=== PATIENT | female | born 1970 | race Caucasian/White ===

== ENCOUNTER 2016-05-11 | Inpatient (IN) | payer MEDICAID ==
[~2016-05-11] VITALS: Ht 157.5 cm; Wt 74.8 kg
[~2016-05-11] MED LIST: ACET-73 GT; AMIN30LI2 GT; ASCO500T8 GT; CALC0.253 GT; CLON-418 PO; DARB150D IV; DEXT1DRO3 EACHEYE; ESOM40CA GT; FOLI0.8T2 GT; HEPA50008 SQ; HYDR-552 GT; INSU100V3 SQ; INSU100V7 SQ; METO50TA3 GT; METO5SOL20 GT
[2016-05-13 07:45] VITALS: BP 141/79
--- NOTE | 2016-05-13 08:00 | NUR ---
Please see resident's previous account [id number] for all assessments and nurses notes. Originally admitted on 06/25/2014.
[2016-05-13] MEDS ORDERED: METOPROLOL TARTRATE 50 MG TABLET GT SCH ×2 (08:09)
[2016-05-13] MEDS ORDERED: HYDROGEN PEROXIDE 480 ML BOTTLE TP PRN (08:09)
[2016-05-13] MEDS ORDERED: LISINOPRIL (20MG) 20 MG TABLET PO SCH (08:09)
[2016-05-13] MEDS: [UNRECOGNIZED DRUG - OTHER] SQ SCH (08:09)
[2016-05-13] MEDS: INSULIN GLARGINE SQ SCH (08:09)
[2016-05-13] MEDS ORDERED: DEXTROSE 50%-WATER 50 ML DISP.SYRIN IV PRN (08:09)
[2016-05-13] MEDS: PROSTAT (PYXIS) 30 ML UDC GT SCH ×3 (09:00→17:00)
[2016-05-13] MEDS: LACTOBACILLUS RHAMNOSUS GG 1 EACH CAP.SPRINK GT SCH ×2 (09:00→17:00)
[2016-05-13] MEDS: HEPARIN SODIUM, PORCINE 5000 UNITS/1 ML VIAL SQ SCH ×2 (09:00→21:00)
[2016-05-13] MEDS: VIT B CMPLX 3/FA/VIT C/BIOTIN 1 TAB TABLET GT SCH (09:00)
[2016-05-13] MEDS: CALCITRIOL ORAL SOLUTION 1 MCG/ML GT SCH (09:00)
[2016-05-13] MEDS: ASCORBIC ACID 500 MG TABLET GT SCH (09:00)
[2016-05-13] MEDS: hydrALAZINE HCL 50 MG TABLET GT SCH ×2 (09:00→17:00)
--- NOTE | 2016-05-13 11:15 | NUR ---
Please see resident's previous account [id number] for Social Service assessments, evaluations and notes.
[2016-05-13] MEDS: POLYVINYL ALCOHOL 15 ML BOTTLE EACHEYE SCH ×2 (12:00→18:08)
[2016-05-13] MEDS: BLOOD SUGAR DIAGNOSTIC 1 EACH STRIP IN SCH ×2 (12:00→18:09)
[2016-05-13] MEDS: IPRATROPIUM NEB FS 0.5 MG/2.5 ML AMPUL.NEB NEB SCH ×2 (13:48→20:01)
[2016-05-13] MEDS: ALBUTEROL FS 2.5 MG/3 ML VIAL.NEB NEB SCH ×2 (13:48→20:01)
[2016-05-13] MEDS: HYDROCODONE/APAP 5/325MG 1 EACH TABLET GT SCH ×2 (14:00→21:00)
[2016-05-13] MEDS: HYDROGEN PEROXIDE 480 ML BOTTLE TP SCH ×2 (15:00→21:00)
[2016-05-13] MEDS: ZINC OXIDE 30 GM TUBE TP SCH ×2 (15:00→21:00)
[2016-05-13] MEDS: Z GUARD REMEDY 4 OZ OINT TP SCH ×2 (15:00→21:00)
[2016-05-13] MEDS: HYDROGEL DRESSING 90 GM TUBE TP SCH ×2 (15:00→21:00)
[2016-05-13] MEDS: CADEXOMER IODINE 40 GM TUBE TP SCH ×2 (15:00→21:00)
[2016-05-13] MEDS: NYSTATIN TOP POWDER 15 GM BOTTLE TP SCH ×6 (15:00→21:00)
[2016-05-13] MEDS: NEOMY SULF/BACITRAC ZN/POLY 15 GM TUBE TP SCH ×2 (15:00→21:00)
[2016-05-13] MEDS: DAKINS HALF STRENGTH (0.25%) 480 ML BOTTLE TOP SCH ×2 (15:00→21:00)
[2016-05-13] MEDS: [UNRECOGNIZED DRUG - OTHER] IV SCH (18:52)
[2016-05-13 19:48] VITALS: BP 147/90
[2016-05-13 19:50] VITALS: BP 147/90
[2016-05-13] MEDS: METOPROLOL TARTRATE 50 MG TABLET GT SCH (22:02)
[2016-05-14] MEDS: BLOOD SUGAR DIAGNOSTIC 1 EACH STRIP IN SCH ×4 (00:04→17:50)
[2016-05-14] MEDS: POLYVINYL ALCOHOL 15 ML BOTTLE EACHEYE SCH ×4 (00:04→17:50)
[2016-05-14] MEDS: INSULIN REGULAR, HUMAN 100 UNIT/ML 3 ML VIAL SQ PRN ×4 (00:05→17:51)
[2016-05-14] MEDS: IPRATROPIUM NEB FS 0.5 MG/2.5 ML AMPUL.NEB NEB SCH ×4 (01:33→19:45)
[2016-05-14] MEDS: ALBUTEROL FS 2.5 MG/3 ML VIAL.NEB NEB SCH ×4 (01:33→19:45)
[2016-05-14] MEDS: ESOMEPRAZOLE MAG TRIHYDRATE 20 MG CAPSULE.DR GT SCH (06:38)
[2016-05-14 08:00] VITALS: BP 133/63
[2016-05-14] MEDS: INSULIN GLARGINE SQ SCH ×2 (08:09→20:42)
[2016-05-14] MEDS: [UNRECOGNIZED DRUG - OTHER] SQ SCH ×2 (08:09→20:42)
[2016-05-14] MEDS: hydrALAZINE HCL 50 MG TABLET GT SCH ×2 (08:55→17:49)
[2016-05-14] MEDS: CALCITRIOL ORAL SOLUTION 1 MCG/ML GT SCH (08:56)
[2016-05-14] MEDS: LACTOBACILLUS RHAMNOSUS GG 1 EACH CAP.SPRINK GT SCH ×2 (08:57→17:49)
[2016-05-14] MEDS: HYDROCODONE/APAP 5/325MG 1 EACH TABLET GT SCH ×2 (08:57→20:43)
[2016-05-14] MEDS: METOPROLOL TARTRATE 50 MG TABLET GT SCH ×2 (08:57→22:16)
[2016-05-14] MEDS: VIT B CMPLX 3/FA/VIT C/BIOTIN 1 TAB TABLET GT SCH (08:57)
[2016-05-14] MEDS: LISINOPRIL (20MG) 20 MG TABLET PO SCH (08:58)
[2016-05-14] MEDS: ASCORBIC ACID 500 MG TABLET GT SCH (08:58)
[2016-05-14] MEDS: PROSTAT (PYXIS) 30 ML UDC GT SCH ×3 (08:58→17:49)
[2016-05-14] MEDS: HEPARIN SODIUM, PORCINE 5000 UNITS/1 ML VIAL SQ SCH ×2 (09:00→20:44)
[2016-05-14] MEDS: HYDROGEL DRESSING 90 GM TUBE TP SCH ×2 (10:00→20:50)
[2016-05-14] MEDS: NEOMY SULF/BACITRAC ZN/POLY 15 GM TUBE TP SCH ×2 (10:00→20:51)
[2016-05-14] MEDS: HYDROGEN PEROXIDE 480 ML BOTTLE TP SCH ×2 (10:00→20:50)
[2016-05-14] MEDS: Z GUARD REMEDY 4 OZ OINT TP SCH ×2 (10:00→20:51)
[2016-05-14] MEDS: ZINC OXIDE 30 GM TUBE TP SCH ×2 (10:00→20:51)
[2016-05-14] MEDS: NYSTATIN TOP POWDER 15 GM BOTTLE TP SCH ×6 (10:00→20:51)
[2016-05-14] MEDS: CADEXOMER IODINE 40 GM TUBE TP SCH ×2 (10:00→20:51)
[2016-05-14] MEDS: DAKINS HALF STRENGTH (0.25%) 480 ML BOTTLE TOP SCH ×2 (10:00→20:50)
[2016-05-14] MEDS: CLONIDINE HCL 0.1 MG TABLET GT PRN (17:50)
[2016-05-14] MEDS: ACETAMINOPHEN 650 MG/20 ML UDC- FOR SA PATIENTS ONLY GT PRN (17:51)
[2016-05-14 19:43] VITALS: BP 129/51
[2016-05-15] MEDS: BLOOD SUGAR DIAGNOSTIC 1 EACH STRIP IN SCH ×4 (00:41→17:41)
[2016-05-15] MEDS: POLYVINYL ALCOHOL 15 ML BOTTLE EACHEYE SCH ×4 (00:41→17:41)
[2016-05-15] MEDS: INSULIN REGULAR, HUMAN 100 UNIT/ML 3 ML VIAL SQ PRN ×3 (00:42→17:42)
[2016-05-15 00:55] VITALS: BP 133/68
[2016-05-15] MEDS: IPRATROPIUM NEB FS 0.5 MG/2.5 ML AMPUL.NEB NEB SCH ×4 (02:15→20:01)
[2016-05-15] MEDS: ALBUTEROL FS 2.5 MG/3 ML VIAL.NEB NEB SCH ×4 (02:15→20:01)
[2016-05-15] MEDS: ESOMEPRAZOLE MAG TRIHYDRATE 20 MG CAPSULE.DR GT SCH (05:31)
[2016-05-15 06:28] VITALS: BP 139/71
[2016-05-15 07:41] VITALS: BP 143/75
[2016-05-15] MEDS: [UNRECOGNIZED DRUG - OTHER] SQ SCH ×2 (08:13→20:46)
[2016-05-15] MEDS: hydrALAZINE HCL 50 MG TABLET GT SCH ×2 (08:13→17:41)
[2016-05-15] MEDS: INSULIN GLARGINE SQ SCH ×2 (08:13→20:46)
[2016-05-15] MEDS: ASCORBIC ACID 500 MG TABLET GT SCH (08:16)
[2016-05-15] MEDS: HEPARIN SODIUM, PORCINE 5000 UNITS/1 ML VIAL SQ SCH ×2 (08:16→20:47)
[2016-05-15] MEDS: LACTOBACILLUS RHAMNOSUS GG 1 EACH CAP.SPRINK GT SCH ×2 (08:16→17:41)
[2016-05-15] MEDS: VIT B CMPLX 3/FA/VIT C/BIOTIN 1 TAB TABLET GT SCH (08:16)
[2016-05-15] MEDS: CALCITRIOL ORAL SOLUTION 1 MCG/ML GT SCH (08:16)
[2016-05-15] MEDS: PROSTAT (PYXIS) 30 ML UDC GT SCH ×3 (08:16→17:41)
[2016-05-15] MEDS: DAKINS HALF STRENGTH (0.25%) 480 ML BOTTLE TOP SCH ×2 (08:16→20:47)
[2016-05-15] MEDS: CADEXOMER IODINE 40 GM TUBE TP SCH ×2 (08:17→20:47)
[2016-05-15] MEDS: NEOMY SULF/BACITRAC ZN/POLY 15 GM TUBE TP SCH ×2 (08:17→20:48)
[2016-05-15] MEDS: HYDROGEN PEROXIDE 480 ML BOTTLE TP SCH ×2 (08:17→20:47)
[2016-05-15] MEDS: Z GUARD REMEDY 4 OZ OINT TP SCH ×2 (08:17→20:48)
[2016-05-15] MEDS: HYDROGEL DRESSING 90 GM TUBE TP SCH ×2 (08:17→20:47)
[2016-05-15] MEDS: NYSTATIN TOP POWDER 15 GM BOTTLE TP SCH ×6 (08:17→20:48)
[2016-05-15] MEDS: ZINC OXIDE 30 GM TUBE TP SCH ×2 (08:18→20:48)
[2016-05-15 14:30] VITALS: BP 142/78
[2016-05-15] MEDS: HYDROCODONE/APAP 5/325MG 1 EACH TABLET GT SCH ×2 (14:30→20:46)
[2016-05-15 18:00] VITALS: BP 157/75
[2016-05-15 20:17] VITALS: BP 133/76
--- NOTE | 2016-05-15 20:44 | NUR ---
Pt seen by Hellen Leija WINDSMITH,no new order.
[2016-05-15] MEDS: METOPROLOL TARTRATE 50 MG TABLET GT SCH (22:01)
[2016-05-16] VITALS: BP 153/69
[2016-05-16] MEDS: POLYVINYL ALCOHOL 15 ML BOTTLE EACHEYE SCH ×5 (00:36→23:39)
[2016-05-16] MEDS: BLOOD SUGAR DIAGNOSTIC 1 EACH STRIP IN SCH ×5 (00:37→23:39)
[2016-05-16] MEDS: CLONIDINE HCL 0.1 MG TABLET GT PRN ×4 (00:37→16:34)
[2016-05-16] MEDS: INSULIN REGULAR, HUMAN 100 UNIT/ML 3 ML VIAL SQ PRN ×5 (00:39→23:41)
[2016-05-16] MEDS: ALBUTEROL FS 2.5 MG/3 ML VIAL.NEB NEB SCH ×4 (01:51→19:35)
[2016-05-16] MEDS: IPRATROPIUM NEB FS 0.5 MG/2.5 ML AMPUL.NEB NEB SCH ×4 (01:51→19:35)
[2016-05-16] MEDS: ESOMEPRAZOLE MAG TRIHYDRATE 20 MG CAPSULE.DR GT SCH (05:23)
[2016-05-16 06:00] VITALS: BP 162/79
[2016-05-16 07:55] VITALS: BP_SYST 129; BP_SYST 153; BP_DIAS 73; BP_DIAS 84
--- NOTE | 2016-05-16 08:20 | NUR ---
Seen and examined by Dr. Terrie Olivo no new order given at this time.
[2016-05-16] MEDS: LACTOBACILLUS RHAMNOSUS GG 1 EACH CAP.SPRINK GT SCH ×2 (09:35→16:32)
[2016-05-16] MEDS: hydrALAZINE HCL 50 MG TABLET GT SCH ×2 (09:35→16:32)
[2016-05-16] MEDS: CALCITRIOL ORAL SOLUTION 1 MCG/ML GT SCH (09:35)
[2016-05-16] MEDS: HYDROCODONE/APAP 5/325MG 1 EACH TABLET GT SCH ×2 (09:36→21:33)
[2016-05-16] MEDS: PROSTAT (PYXIS) 30 ML UDC GT SCH ×3 (09:36→16:32)
[2016-05-16] MEDS: METOPROLOL TARTRATE 50 MG TABLET GT SCH ×2 (09:36→21:35)
[2016-05-16] MEDS: ASCORBIC ACID 500 MG TABLET GT SCH (09:36)
[2016-05-16] MEDS: VIT B CMPLX 3/FA/VIT C/BIOTIN 1 TAB TABLET GT SCH (09:36)
[2016-05-16] MEDS: NEOMY SULF/BACITRAC ZN/POLY 15 GM TUBE TP SCH ×2 (09:37→21:34)
[2016-05-16] MEDS: HYDROGEN PEROXIDE 480 ML BOTTLE TP SCH ×2 (09:37→21:34)
[2016-05-16] MEDS: HEPARIN SODIUM, PORCINE 5000 UNITS/1 ML VIAL SQ SCH ×2 (09:37→21:33)
[2016-05-16] MEDS: LISINOPRIL (20MG) 20 MG TABLET PO SCH (09:37)
[2016-05-16] MEDS: NYSTATIN TOP POWDER 15 GM BOTTLE TP SCH ×6 (09:37→21:34)
[2016-05-16] MEDS: Z GUARD REMEDY 4 OZ OINT TP SCH ×2 (09:38→21:34)
[2016-05-16] MEDS: ZINC OXIDE 30 GM TUBE TP SCH ×2 (09:38→21:34)
[2016-05-16] MEDS: [UNRECOGNIZED DRUG - OTHER] SQ SCH ×2 (09:50→20:22)
[2016-05-16] MEDS: INSULIN GLARGINE SQ SCH ×2 (09:50→20:22)
[2016-05-16 12:00] VITALS: BP 154/76
[2016-05-16] MEDS: RENAL NOVASOURCE 1,000 ML BOTTLE GT PRN (12:18)
[2016-05-16 18:23] VITALS: BP 119/53
[2016-05-16 19:46] VITALS: BP 116/58
[2016-05-17 00:34] VITALS: BP 0/154
[2016-05-17] MEDS: IPRATROPIUM NEB FS 0.5 MG/2.5 ML AMPUL.NEB NEB SCH ×4 (01:40→19:35)
[2016-05-17] MEDS: ALBUTEROL FS 2.5 MG/3 ML VIAL.NEB NEB SCH ×4 (01:40→19:35)
[2016-05-17 06:11] VITALS: BP 126/62
[2016-05-17] MEDS: POLYVINYL ALCOHOL 15 ML BOTTLE EACHEYE SCH ×4 (06:13→23:59)
[2016-05-17] MEDS: ESOMEPRAZOLE MAG TRIHYDRATE 20 MG CAPSULE.DR GT SCH (06:13)
[2016-05-17] MEDS: BLOOD SUGAR DIAGNOSTIC 1 EACH STRIP IN SCH ×4 (06:13→23:59)
[2016-05-17] MEDS: INSULIN REGULAR, HUMAN 100 UNIT/ML 3 ML VIAL SQ PRN ×2 (06:15→12:18)
[2016-05-17 07:38] VITALS: BP 154/76
[2016-05-17] MEDS: [UNRECOGNIZED DRUG - OTHER] SQ SCH ×2 (08:09→20:09)
[2016-05-17] MEDS: INSULIN GLARGINE SQ SCH ×2 (08:09→20:09)
[2016-05-17] MEDS: LACTOBACILLUS RHAMNOSUS GG 1 EACH CAP.SPRINK GT SCH ×2 (09:19→17:00)
[2016-05-17] MEDS: hydrALAZINE HCL 50 MG TABLET GT SCH ×2 (09:19→17:00)
[2016-05-17] MEDS: ASCORBIC ACID 500 MG TABLET GT SCH (09:19)
[2016-05-17] MEDS: PROSTAT (PYXIS) 30 ML UDC GT SCH ×3 (09:19→17:00)
[2016-05-17] MEDS: HEPARIN SODIUM, PORCINE 5000 UNITS/1 ML VIAL SQ SCH ×2 (09:19→21:43)
[2016-05-17] MEDS: VIT B CMPLX 3/FA/VIT C/BIOTIN 1 TAB TABLET GT SCH (09:19)
[2016-05-17] MEDS: CALCITRIOL ORAL SOLUTION 1 MCG/ML GT SCH (09:19)
[2016-05-17] MEDS: ACETAMINOPHEN 650 MG/20 ML UDC- FOR SA PATIENTS ONLY GT PRN (09:20)
[2016-05-17 12:09] VITALS: BP 157/72
[2016-05-17] MEDS: HYDROCODONE/APAP 5/325MG 1 EACH TABLET GT SCH ×2 (12:11→21:43)
[2016-05-17] MEDS: CLONIDINE HCL 0.1 MG TABLET GT PRN ×2 (12:12→17:47)
[2016-05-17] MEDS: RENAL NOVASOURCE 1,000 ML BOTTLE GT PRN (13:12)
[2016-05-17] MEDS: ZINC OXIDE 30 GM TUBE TP SCH (13:30)
[2016-05-17] MEDS: NEOMY SULF/BACITRAC ZN/POLY 15 GM TUBE TP SCH ×2 (13:30→21:44)
[2016-05-17] MEDS: HYDROGEN PEROXIDE 480 ML BOTTLE TP SCH ×2 (13:30→21:44)
[2016-05-17] MEDS: NYSTATIN TOP POWDER 15 GM BOTTLE TP SCH ×6 (13:30→21:44)
[2016-05-17] MEDS: Z GUARD REMEDY 4 OZ OINT TP SCH ×2 (13:30→21:44)
--- NOTE | 2016-05-17 15:02 | NUR ---
Resident left for dialysis at this time, delay in schedule is due to availability of therapist from ambulance company. Resident stable with no signs of distress.
[2016-05-17 20:02] VITALS: BP 154/75
[2016-05-17] MEDS: DAKINS HALF STRENGTH (0.25%) 480 ML BOTTLE TOP SCH (21:43)
[2016-05-17] MEDS: METOPROLOL TARTRATE 50 MG TABLET GT SCH (22:03)
[2016-05-18 00:30] VITALS: BP 132/63
[2016-05-18] MEDS: ALBUTEROL FS 2.5 MG/3 ML VIAL.NEB NEB SCH ×4 (01:59→19:36)
[2016-05-18] MEDS: IPRATROPIUM NEB FS 0.5 MG/2.5 ML AMPUL.NEB NEB SCH ×4 (01:59→19:36)
[2016-05-18] MEDS: POLYVINYL ALCOHOL 15 ML BOTTLE EACHEYE SCH ×3 (05:29→17:25)
[2016-05-18] MEDS: ESOMEPRAZOLE MAG TRIHYDRATE 20 MG CAPSULE.DR GT SCH (05:29)
[2016-05-18] MEDS: BLOOD SUGAR DIAGNOSTIC 1 EACH STRIP IN SCH ×3 (05:29→17:26)
[2016-05-18] MEDS: INSULIN REGULAR, HUMAN 100 UNIT/ML 3 ML VIAL SQ PRN ×4 (05:30→17:25)
[2016-05-18 07:21] VITALS: BP 118/55
[2016-05-18 07:30] VITALS: BP 140/74
--- NOTE | 2016-05-18 08:03 | NUR ---
RT PATIENT RECEIVED TRACHED ON MECHANICAL VENTILATOR WITH SETTINGS SET PER MD CESARIO ESPINAL. VENT ALARMS CHECKED + AUDIBLE. VENT PLUGGED INTO RED OUTLET. CUFF PRESSURE CHECKED TICKETER. RESP TX'S GIVEN ORDERED CESARIO ESPINAL. TRACH SECURE AND IN PROPER POSITION. SX'D WITH MOD AMT PALE SEMITHICK SECRETIONS. B/S DIM RHONCHI. PATIENT IN NO DISTRESS OR SOB AT THIS TIME. BACK UP TRACH AND AMBU BAG AT [facility]. CONTINUE CURRENT PLAN OF RESP CARE. Addendum: 05/18/16 at 0904 by EDMUND NOONAN RT Amended: Links added.
[2016-05-18] MEDS: [UNRECOGNIZED DRUG - OTHER] SQ SCH ×2 (08:44→21:05)
[2016-05-18] MEDS: CALCITRIOL ORAL SOLUTION 1 MCG/ML GT SCH (08:44)
[2016-05-18] MEDS: INSULIN GLARGINE SQ SCH ×2 (08:44→21:05)
[2016-05-18] MEDS: hydrALAZINE HCL 50 MG TABLET GT SCH ×2 (08:44→17:25)
[2016-05-18] MEDS: LACTOBACILLUS RHAMNOSUS GG 1 EACH CAP.SPRINK GT SCH ×2 (08:44→17:25)
[2016-05-18] MEDS: METOPROLOL TARTRATE 50 MG TABLET GT SCH ×2 (08:45→21:08)
[2016-05-18] MEDS: ASCORBIC ACID 500 MG TABLET GT SCH (08:45)
[2016-05-18] MEDS: LISINOPRIL (20MG) 20 MG TABLET PO SCH (08:45)
[2016-05-18] MEDS: HYDROCODONE/APAP 5/325MG 1 EACH TABLET GT SCH ×2 (08:45→21:05)
[2016-05-18] MEDS: VIT B CMPLX 3/FA/VIT C/BIOTIN 1 TAB TABLET GT SCH (08:45)
[2016-05-18] MEDS: PROSTAT (PYXIS) 30 ML UDC GT SCH ×3 (08:45→17:25)
[2016-05-18] MEDS: HEPARIN SODIUM, PORCINE 5000 UNITS/1 ML VIAL SQ SCH ×2 (08:46→21:07)
[2016-05-18] MEDS: HYDROGEN PEROXIDE 480 ML BOTTLE TP SCH ×2 (09:39→21:07)
[2016-05-18] MEDS: DAKINS HALF STRENGTH (0.25%) 480 ML BOTTLE TOP SCH ×2 (09:39→21:07)
[2016-05-18] MEDS: NYSTATIN TOP POWDER 15 GM BOTTLE TP SCH ×6 (09:39→21:07)
[2016-05-18] MEDS: NEOMY SULF/BACITRAC ZN/POLY 15 GM TUBE TP SCH ×2 (09:40→21:07)
[2016-05-18] MEDS: Z GUARD REMEDY 4 OZ OINT TP SCH ×2 (09:40→21:08)
[2016-05-18 14:29] VITALS: BP 145/70
[2016-05-18 18:32] VITALS: BP 140/65
[2016-05-18 20:08] VITALS: BP 157/75
[2016-05-19] MEDS: POLYVINYL ALCOHOL 15 ML BOTTLE EACHEYE SCH ×5 (00:15→23:26)
[2016-05-19] MEDS: BLOOD SUGAR DIAGNOSTIC 1 EACH STRIP IN SCH ×5 (00:15→23:26)
[2016-05-19] MEDS: INSULIN REGULAR, HUMAN 100 UNIT/ML 3 ML VIAL SQ PRN ×5 (00:16→23:27)
[2016-05-19 00:39] VITALS: BP 150/70
[2016-05-19] MEDS: IPRATROPIUM NEB FS 0.5 MG/2.5 ML AMPUL.NEB NEB SCH ×4 (01:34→19:44)
[2016-05-19] MEDS: ALBUTEROL FS 2.5 MG/3 ML VIAL.NEB NEB SCH ×4 (01:34→19:44)
[2016-05-19] MEDS: ESOMEPRAZOLE MAG TRIHYDRATE 20 MG CAPSULE.DR GT SCH (05:14)
[2016-05-19 06:31] VITALS: BP 137/72
[2016-05-19] MEDS: INSULIN GLARGINE SQ SCH ×2 (08:09→20:35)
[2016-05-19] MEDS: [UNRECOGNIZED DRUG - OTHER] SQ SCH ×2 (08:09→20:35)
[2016-05-19 08:11] VITALS: BP 162/72
--- NOTE | 2016-05-19 08:24 | NUR ---
RT PATIENT RECEIVED TRACHED ON MECHANICAL VENTILATOR WITH SETTINGS SET PER MD CESARIO ESPINAL. VENT ALARMS CHECKED + AUDIBLE. VENT PLUGGED INTO RED OUTLET. CUFF PRESSURE CHECKED PLUMBER MAINTENANCE. RESP TX'S GIVEN ORDERED CESARIO ESPINAL. TRACH SECURE AND IN PROPER POSITION. SX'D WITH MOD AMT PALE SEMITHICK SECRETIONS. B/S DIM RHONCHI. PATIENT IN NO DISTRESS OR SOB AT THIS TIME. BACK UP TRACH AND AMBU BAG AT [facility]. CONTINUE CURRENT PLAN OF RESP CARE. Addendum: 05/19/16 at 0824 by EDMUND NOONAN RT Amended: Links added.
[2016-05-19] MEDS: NEOMY SULF/BACITRAC ZN/POLY 15 GM TUBE TP SCH ×2 (09:00→21:44)
[2016-05-19] MEDS: CALCITRIOL ORAL SOLUTION 1 MCG/ML GT SCH (09:00)
[2016-05-19] MEDS: LACTOBACILLUS RHAMNOSUS GG 1 EACH CAP.SPRINK GT SCH ×2 (09:00→17:00)
[2016-05-19] MEDS: HEPARIN SODIUM, PORCINE 5000 UNITS/1 ML VIAL SQ SCH ×2 (09:00→20:36)
[2016-05-19] MEDS: PROSTAT (PYXIS) 30 ML UDC GT SCH ×3 (09:00→17:00)
[2016-05-19] MEDS: ASCORBIC ACID 500 MG TABLET GT SCH (09:00)
[2016-05-19] MEDS: METOPROLOL TARTRATE 50 MG TABLET GT SCH ×2 (09:00→21:19)
[2016-05-19] MEDS: hydrALAZINE HCL 50 MG TABLET GT SCH ×2 (09:00→17:00)
[2016-05-19] MEDS: LISINOPRIL (20MG) 20 MG TABLET PO SCH (09:00)
[2016-05-19] MEDS: DAKINS HALF STRENGTH (0.25%) 480 ML BOTTLE TOP SCH ×2 (09:00→21:44)
[2016-05-19] MEDS: Z GUARD REMEDY 4 OZ OINT TP SCH ×2 (09:00→21:44)
[2016-05-19] MEDS: NYSTATIN TOP POWDER 15 GM BOTTLE TP SCH ×6 (09:00→20:37)
[2016-05-19] MEDS: VIT B CMPLX 3/FA/VIT C/BIOTIN 1 TAB TABLET GT SCH (09:00)
[2016-05-19] MEDS: HYDROGEN PEROXIDE 480 ML BOTTLE TP SCH ×2 (09:00→20:36)
[2016-05-19] MEDS: HYDROCODONE/APAP 5/325MG 1 EACH TABLET GT SCH ×2 (15:00→21:19)
[2016-05-19 16:38] VITALS: BP 162/72
[2016-05-19 18:00] VITALS: BP 162/72
[2016-05-19 20:17] VITALS: BP 151/73
[2016-05-19] MEDS: RENAL NOVASOURCE 1,000 ML BOTTLE GT PRN (20:36)
[2016-05-20 00:37] VITALS: BP 156/78
[2016-05-20] MEDS: IPRATROPIUM NEB FS 0.5 MG/2.5 ML AMPUL.NEB NEB SCH ×4 (01:07→19:30)
[2016-05-20] MEDS: ALBUTEROL FS 2.5 MG/3 ML VIAL.NEB NEB SCH ×4 (01:07→19:30)
[2016-05-20] MEDS: ESOMEPRAZOLE MAG TRIHYDRATE 20 MG CAPSULE.DR GT SCH (05:43)
[2016-05-20] MEDS: BLOOD SUGAR DIAGNOSTIC 1 EACH STRIP IN SCH ×3 (05:43→18:14)
[2016-05-20] MEDS: POLYVINYL ALCOHOL 15 ML BOTTLE EACHEYE SCH ×3 (05:43→18:14)
[2016-05-20] MEDS: INSULIN REGULAR, HUMAN 100 UNIT/ML 3 ML VIAL SQ PRN ×2 (05:44→18:16)
--- NOTE | 2016-05-20 06:00 | NUR ---
RN NOTES Received new orders noted and carried out.
[2016-05-20 06:42] VITALS: BP 152/69
[2016-05-20 08:14] VITALS: BP 158/74
[2016-05-20] MEDS: INSULIN GLARGINE SQ SCH ×2 (08:45→20:49)
[2016-05-20] MEDS: [UNRECOGNIZED DRUG - OTHER] SQ SCH ×2 (08:45→20:49)
[2016-05-20] MEDS: hydrALAZINE HCL 50 MG TABLET GT SCH ×2 (08:51→17:00)
[2016-05-20] MEDS: ASCORBIC ACID 500 MG TABLET GT SCH (08:53)
[2016-05-20] MEDS: PROSTAT (PYXIS) 30 ML UDC GT SCH ×3 (08:53→17:00)
[2016-05-20] MEDS: CALCITRIOL ORAL SOLUTION 1 MCG/ML GT SCH (08:53)
[2016-05-20] MEDS: VIT B CMPLX 3/FA/VIT C/BIOTIN 1 TAB TABLET GT SCH (08:53)
[2016-05-20] MEDS: LACTOBACILLUS RHAMNOSUS GG 1 EACH CAP.SPRINK GT SCH ×2 (08:53→17:00)
[2016-05-20] MEDS: HEPARIN SODIUM, PORCINE 5000 UNITS/1 ML VIAL SQ SCH ×2 (08:57→20:51)
[2016-05-20] MEDS: CADEXOMER IODINE 40 GM TUBE TP SCH ×2 (14:00→20:52)
[2016-05-20] MEDS: HYDROGEN PEROXIDE 480 ML BOTTLE TP SCH ×2 (14:00→20:52)
[2016-05-20] MEDS: ZINC OXIDE 56.7 GM TUBE TP SCH ×4 (14:00→20:54)
[2016-05-20] MEDS: Z GUARD REMEDY 4 OZ OINT TP SCH ×2 (14:00→20:53)
[2016-05-20] MEDS: NEOMY SULF/BACITRAC ZN/POLY 15 GM TUBE TP SCH ×2 (14:00→20:53)
[2016-05-20] MEDS: DAKINS HALF STRENGTH (0.25%) 480 ML BOTTLE TOP SCH ×2 (14:00→20:52)
[2016-05-20] MEDS: NYSTATIN TOP POWDER 15 GM BOTTLE TP SCH ×6 (14:00→20:53)
[2016-05-20] MEDS: HYDROCODONE/APAP 5/325MG 1 EACH TABLET GT SCH ×2 (14:30→20:50)
[2016-05-20 17:25] VITALS: BP 132/69
[2016-05-20 18:27] VITALS: BP 132/69
[2016-05-20 20:38] VITALS: BP 143/74
[2016-05-20] MEDS: METOPROLOL TARTRATE 50 MG TABLET GT SCH (21:28)
[2016-05-21] MEDS: INSULIN REGULAR, HUMAN 100 UNIT/ML 3 ML VIAL SQ PRN ×4 (00:52→17:19)
[2016-05-21] MEDS: POLYVINYL ALCOHOL 15 ML BOTTLE EACHEYE SCH ×4 (00:52→17:17)
[2016-05-21] MEDS: BLOOD SUGAR DIAGNOSTIC 1 EACH STRIP IN SCH ×4 (00:52→17:17)
[2016-05-21] MEDS: ALBUTEROL FS 2.5 MG/3 ML VIAL.NEB NEB SCH ×4 (01:03→20:17)
[2016-05-21] MEDS: IPRATROPIUM NEB FS 0.5 MG/2.5 ML AMPUL.NEB NEB SCH ×4 (01:03→20:17)
[2016-05-21 01:12] VITALS: BP 141/65
[2016-05-21] MEDS: ESOMEPRAZOLE MAG TRIHYDRATE 20 MG CAPSULE.DR GT SCH (05:30)
[2016-05-21 06:15] VITALS: BP 136/70
[2016-05-21 07:49] VITALS: BP 151/66
[2016-05-21] MEDS: [UNRECOGNIZED DRUG - OTHER] SQ SCH ×2 (08:09→20:45)
[2016-05-21] MEDS: INSULIN GLARGINE SQ SCH ×2 (08:09→20:45)
--- NOTE | 2016-05-21 08:30 | NUR ---
Notified Dr. Castro resident with low grade temp 100.7, 151/66, 82, 17, New order given, to do CXR and BC x 2. All orders noted and carried out.
[2016-05-21] MEDS: LACTOBACILLUS RHAMNOSUS GG 1 EACH CAP.SPRINK GT SCH ×2 (09:17→17:01)
[2016-05-21] MEDS: PROSTAT (PYXIS) 30 ML UDC GT SCH ×3 (09:17→17:01)
[2016-05-21] MEDS: CALCITRIOL ORAL SOLUTION 1 MCG/ML GT SCH (09:17)
[2016-05-21] MEDS: hydrALAZINE HCL 50 MG TABLET GT SCH ×2 (09:17→17:01)
[2016-05-21] MEDS: ASCORBIC ACID 500 MG TABLET GT SCH (09:17)
[2016-05-21] MEDS: HYDROCODONE/APAP 5/325MG 1 EACH TABLET GT SCH ×2 (09:17→20:47)
[2016-05-21] MEDS: METOPROLOL TARTRATE 50 MG TABLET GT SCH ×2 (09:17→21:57)
[2016-05-21] MEDS: VIT B CMPLX 3/FA/VIT C/BIOTIN 1 TAB TABLET GT SCH (09:17)
[2016-05-21] MEDS: CADEXOMER IODINE 40 GM TUBE TP SCH ×2 (09:18→20:51)
[2016-05-21] MEDS: HEPARIN SODIUM, PORCINE 5000 UNITS/1 ML VIAL SQ SCH ×2 (09:18→20:51)
[2016-05-21] MEDS: LISINOPRIL (20MG) 20 MG TABLET PO SCH (09:18)
[2016-05-21] MEDS: HYDROGEN PEROXIDE 480 ML BOTTLE TP SCH ×2 (09:18→20:51)
[2016-05-21] MEDS: NYSTATIN TOP POWDER 15 GM BOTTLE TP SCH ×6 (09:18→20:52)
[2016-05-21] MEDS: DAKINS HALF STRENGTH (0.25%) 480 ML BOTTLE TOP SCH ×2 (09:18→20:51)
[2016-05-21] MEDS: NEOMY SULF/BACITRAC ZN/POLY 15 GM TUBE TP SCH ×2 (09:19→20:52)
[2016-05-21] MEDS: Z GUARD REMEDY 4 OZ OINT TP SCH ×2 (09:19→20:52)
[2016-05-21] MEDS: ZINC OXIDE 56.7 GM TUBE TP SCH ×4 (09:19→20:52)
[2016-05-21 14:32] VITALS: BP 151/72
[2016-05-21 18:51] VITALS: BP 150/74
[2016-05-21 20:00] VITALS: BP 119/70
[2016-05-22] VITALS: BP 131/70
[2016-05-22] MEDS: POLYVINYL ALCOHOL 15 ML BOTTLE EACHEYE SCH ×4 (00:32→18:18)
[2016-05-22] MEDS: BLOOD SUGAR DIAGNOSTIC 1 EACH STRIP IN SCH ×4 (00:32→18:18)
[2016-05-22] MEDS: INSULIN REGULAR, HUMAN 100 UNIT/ML 3 ML VIAL SQ PRN ×3 (00:33→18:19)
[2016-05-22] MEDS: ALBUTEROL FS 2.5 MG/3 ML VIAL.NEB NEB SCH ×4 (01:21→20:03)
[2016-05-22] MEDS: IPRATROPIUM NEB FS 0.5 MG/2.5 ML AMPUL.NEB NEB SCH ×4 (01:21→20:03)
[2016-05-22] MEDS: ESOMEPRAZOLE MAG TRIHYDRATE 20 MG CAPSULE.DR GT SCH (05:15)
[2016-05-22 06:20] VITALS: BP 154/65
--- NOTE | 2016-05-22 06:32 | NUR ---
Pt temp 99.4,no respiratory distress.pending blood culture.will continue to monitor.
[2016-05-22] MEDS: ASCORBIC ACID 500 MG TABLET GT SCH (08:30)
[2016-05-22] MEDS: CALCITRIOL ORAL SOLUTION 1 MCG/ML GT SCH (08:30)
[2016-05-22] MEDS: HYDROCODONE/APAP 5/325MG 1 EACH TABLET GT SCH ×2 (08:30→21:35)
[2016-05-22] MEDS: INSULIN GLARGINE SQ SCH ×2 (08:30→20:30)
[2016-05-22] MEDS: [UNRECOGNIZED DRUG - OTHER] SQ SCH ×2 (08:30→20:30)
[2016-05-22] MEDS: VIT B CMPLX 3/FA/VIT C/BIOTIN 1 TAB TABLET GT SCH (08:30)
[2016-05-22] MEDS: PROSTAT (PYXIS) 30 ML UDC GT SCH ×3 (08:30→17:00)
[2016-05-22] MEDS: LACTOBACILLUS RHAMNOSUS GG 1 EACH CAP.SPRINK GT SCH ×2 (08:30→17:00)
[2016-05-22] MEDS: HEPARIN SODIUM, PORCINE 5000 UNITS/1 ML VIAL SQ SCH ×2 (08:31→21:36)
[2016-05-22] MEDS: hydrALAZINE HCL 50 MG TABLET GT SCH ×2 (08:31→17:00)
[2016-05-22] MEDS: CADEXOMER IODINE 40 GM TUBE TP SCH ×2 (09:00→21:37)
[2016-05-22] MEDS: ZINC OXIDE 56.7 GM TUBE TP SCH ×4 (09:00→21:40)
[2016-05-22] MEDS: NYSTATIN TOP POWDER 15 GM BOTTLE TP SCH ×6 (09:00→21:37)
[2016-05-22] MEDS: NEOMY SULF/BACITRAC ZN/POLY 15 GM TUBE TP SCH ×2 (09:00→21:37)
[2016-05-22] MEDS: Z GUARD REMEDY 4 OZ OINT TP SCH ×2 (09:00→21:37)
[2016-05-22] MEDS: HYDROGEN PEROXIDE 480 ML BOTTLE TP SCH ×2 (09:00→21:37)
[2016-05-22] MEDS: DAKINS HALF STRENGTH (0.25%) 480 ML BOTTLE TOP SCH ×2 (09:00→21:37)
--- NOTE | 2016-05-22 09:30 | NUR ---
Notified Dr. Castro that pt's temp is 100.[address] Castro asked if blood culture was done. Blood culture results still pending. Cooling measures provided. No new order.
--- NOTE | 2016-05-22 09:45 | NUR ---
Relayed CXR result to Dr. Morejon. Received order to do CBC.
[2016-05-22 14:57] LABS: EOSINOPHILS # (AUTO) 0.1 /CMM (0.0-0.7); EOSINOPHILS % (AUTO) 0.5 % (0.0-6.0); HEMATOCRIT 34 % (33-45); HEMOGLOBIN 11.1 g/dL (11.5-14.8); LYMPHOCYTES # (AUTO) 0.8 /CMM (0.8-4.8); LYMPHOCYTES % (AUTO) 4.4 % (20.0-44.0); MEAN CORPUSCULAR HEMOGLOBIN 31 PG (26.0-33.0); MEAN CORPUSCULAR HGB CONC 33 g/dl (31.0-36.0); MEAN CORPUSCULAR VOLUME 96 fL (82-100); MONOCYTES # (AUTO) 0.5 /CMM (0.1-1.30); MONOCYTES % (AUTO) 2.6 % (2.0-12.0); NEUTROPHILS # (AUTO) 17.1 /CMM (1.8-8.9); NEUTROPHILS % (AUTO) 92.5 % (43.0-81.0); PLATELET COUNT (AUTO) 204 /CMM (150-450); RDW COEFFICIENT OF VARIATION 18.1 (11.5-15.0); RED BLOOD CELL COUNT(AUTO) 3.54 MIL/uL (4.0-5.2); WHITE BLOOD COUNT (AUTO) 18.5 K/uL (4.3-11.0)
--- NOTE | 2016-05-22 16:51 | NUR ---
Relayed CBC result to Dr. Morejon. WBC 18.5. Received order to give Levaquin via GT x 7 days for pneumonia, pharmacy to dose.
--- NOTE | 2016-05-22 17:39 | NUR ---
Spoke with pharmacist Santos from [facility]. He said they do not dose Levaquin, it is up to the doctor to order the dose. Explained to him that the doctor said for pharmacy to dose it. Referred to [facility] pharmacist May. Received order to do BMP today prior to dosing.
[2016-05-22 18:00] VITALS: BP 152/62
--- NOTE | 2016-05-22 18:12 | NUR ---
Pt's temp 99.6 F. Pt appears comfortable.
[2016-05-22 19:01] LABS: CALCIUM, SERUM 9.3 mg/dL (8.5-10.1); CREATININE 2.7 mg/dL (0.6-1.3); POTASSIUM 4.1 mmol/L (3.5-5.1)
[2016-05-22] MEDS ORDERED: LEVOFLOXACIN (750 MG) 750 MG TABLET GT ONE (20:00)
[2016-05-22 20:10] VITALS: BP 111/67
[2016-05-22] MEDS: METOPROLOL TARTRATE 50 MG TABLET GT SCH (21:41)
[2016-05-23] MEDS: POLYVINYL ALCOHOL 15 ML BOTTLE EACHEYE SCH ×5 (00:39→23:56)
[2016-05-23] MEDS: BLOOD SUGAR DIAGNOSTIC 1 EACH STRIP IN SCH ×5 (00:39→23:56)
[2016-05-23] MEDS: INSULIN REGULAR, HUMAN 100 UNIT/ML 3 ML VIAL SQ PRN ×5 (00:40→23:58)
[2016-05-23 01:00] VITALS: BP 152/79
[2016-05-23] MEDS: ALBUTEROL FS 2.5 MG/3 ML VIAL.NEB NEB SCH ×4 (01:45→19:58)
[2016-05-23] MEDS: IPRATROPIUM NEB FS 0.5 MG/2.5 ML AMPUL.NEB NEB SCH ×4 (01:45→19:58)
[2016-05-23] MEDS: RENAL NOVASOURCE 1,000 ML BOTTLE GT PRN (04:48)
[2016-05-23 06:13] VITALS: BP 158/7
[2016-05-23] MEDS: ESOMEPRAZOLE MAG TRIHYDRATE 20 MG CAPSULE.DR GT SCH (06:14)
--- NOTE | 2016-05-23 07:43 | NUR ---
RT PATIENT RECEIVED TRACHED ON MECHANICAL VENTILATOR WITH SETTINGS SET PER MD CESARIO ESPINAL. VENT ALARMS CHECKED + AUDIBLE. VENT PLUGGED INTO RED OUTLET. CUFF PRESSURE CHECKED COAT CUTTER. RESP TX'S GIVEN ORDERED CESARIO ESPINAL. TRACH SECURE AND IN PROPER POSITION. SX'D WITH MOD AMT PALE SEMITHICK SECRETIONS. B/S DIM RHONCHI. PATIENT IN NO DISTRESS OR SOB AT THIS TIME. BACK UP TRACH AND AMBU BAG AT [facility]. CONTINUE CURRENT PLAN OF RESP CARE. Addendum: 05/23/16 at 1041 by EDMUND NOONAN RT Amended: Links added.
[2016-05-23 07:48] VITALS: BP 151/68
[2016-05-23] MEDS: INSULIN GLARGINE SQ SCH ×2 (08:09→20:09)
[2016-05-23] MEDS: [UNRECOGNIZED DRUG - OTHER] SQ SCH ×2 (08:09→20:09)
[2016-05-23] MEDS: CALCITRIOL ORAL SOLUTION 1 MCG/ML GT SCH (09:41)
[2016-05-23] MEDS: HYDROCODONE/APAP 5/325MG 1 EACH TABLET GT SCH ×2 (09:41→23:05)
[2016-05-23] MEDS: PROSTAT (PYXIS) 30 ML UDC GT SCH ×3 (09:41→16:33)
[2016-05-23] MEDS: ASCORBIC ACID 500 MG TABLET GT SCH (09:41)
[2016-05-23] MEDS: VIT B CMPLX 3/FA/VIT C/BIOTIN 1 TAB TABLET GT SCH (09:41)
[2016-05-23] MEDS: METOPROLOL TARTRATE 50 MG TABLET GT SCH ×2 (09:41→22:00)
[2016-05-23] MEDS: LACTOBACILLUS RHAMNOSUS GG 1 EACH CAP.SPRINK GT SCH ×2 (09:41→16:33)
[2016-05-23] MEDS: hydrALAZINE HCL 50 MG TABLET GT SCH ×2 (09:41→16:33)
[2016-05-23] MEDS: LISINOPRIL (20MG) 20 MG TABLET PO SCH (09:42)
[2016-05-23] MEDS: HEPARIN SODIUM, PORCINE 5000 UNITS/1 ML VIAL SQ SCH ×2 (09:42→21:47)
[2016-05-23] MEDS: NEOMY SULF/BACITRAC ZN/POLY 15 GM TUBE TP SCH (10:15)
[2016-05-23] MEDS: NYSTATIN TOP POWDER 15 GM BOTTLE TP SCH ×6 (10:15→23:00)
[2016-05-23] MEDS: CADEXOMER IODINE 40 GM TUBE TP SCH ×2 (10:15→23:00)
[2016-05-23] MEDS: ZINC OXIDE 56.7 GM TUBE TP SCH ×4 (10:15→23:00)
[2016-05-23] MEDS: Z GUARD REMEDY 4 OZ OINT TP SCH ×2 (10:15→23:00)
[2016-05-23] MEDS: DAKINS HALF STRENGTH (0.25%) 480 ML BOTTLE TOP SCH ×2 (10:15→23:00)
[2016-05-23] MEDS: HYDROGEN PEROXIDE 480 ML BOTTLE TP SCH ×2 (10:15→23:00)
[2016-05-23 12:00] VITALS: BP 157/60
[2016-05-23] MEDS: LACTULOSE 10 G/15 ML UDC (PYXIS) GT PRN (16:34)
--- NOTE | 2016-05-23 16:37 | NUR ---
IDT meeting held, reviewed current medications, labs and treatment order. New order given to repeat CBC on Thursday. All orders noted and carried out.
[2016-05-23] MEDS: HYDROCODONE/APAP 5/325MG 1 EACH TABLET GT PRN (18:20)
[2016-05-23 18:39] VITALS: BP 145/64
[2016-05-23 19:55] VITALS: BP 142/74
[2016-05-24 00:56] VITALS: BP 149/68
[2016-05-24] MEDS: ALBUTEROL FS 2.5 MG/3 ML VIAL.NEB NEB SCH ×4 (02:26→19:23)
[2016-05-24] MEDS: IPRATROPIUM NEB FS 0.5 MG/2.5 ML AMPUL.NEB NEB SCH ×4 (02:26→19:23)
[2016-05-24] MEDS: RENAL NOVASOURCE 1,000 ML BOTTLE GT PRN (04:58)
[2016-05-24] MEDS: BLOOD SUGAR DIAGNOSTIC 1 EACH STRIP IN SCH ×4 (06:17→23:26)
[2016-05-24] MEDS: POLYVINYL ALCOHOL 15 ML BOTTLE EACHEYE SCH ×4 (06:17→23:26)
[2016-05-24] MEDS: ESOMEPRAZOLE MAG TRIHYDRATE 20 MG CAPSULE.DR GT SCH (06:17)
[2016-05-24] MEDS: HYDROCODONE/APAP 5/325MG 1 EACH TABLET GT PRN (06:18)
[2016-05-24] MEDS: INSULIN REGULAR, HUMAN 100 UNIT/ML 3 ML VIAL SQ PRN ×3 (06:19→23:26)
[2016-05-24 06:22] VITALS: BP 162/77
[2016-05-24 07:44] VITALS: BP 143/77
[2016-05-24] MEDS: INSULIN GLARGINE SQ SCH ×2 (09:00→21:00)
[2016-05-24] MEDS: [UNRECOGNIZED DRUG - OTHER] SQ SCH ×2 (09:00→21:00)
[2016-05-24] MEDS: hydrALAZINE HCL 50 MG TABLET GT SCH ×2 (09:01→16:54)
[2016-05-24] MEDS: ASCORBIC ACID 500 MG TABLET GT SCH (09:01)
[2016-05-24] MEDS: VIT B CMPLX 3/FA/VIT C/BIOTIN 1 TAB TABLET GT SCH (09:01)
[2016-05-24] MEDS: PROSTAT (PYXIS) 30 ML UDC GT SCH ×3 (09:01→16:54)
[2016-05-24] MEDS: CALCITRIOL ORAL SOLUTION 1 MCG/ML GT SCH (09:01)
[2016-05-24] MEDS: LACTOBACILLUS RHAMNOSUS GG 1 EACH CAP.SPRINK GT SCH ×2 (09:01→16:54)
[2016-05-24] MEDS: HEPARIN SODIUM, PORCINE 5000 UNITS/1 ML VIAL SQ SCH ×2 (09:02→21:19)
[2016-05-24] MEDS: HYDROCODONE/APAP 5/325MG 1 EACH TABLET GT SCH ×2 (15:00→23:00)
[2016-05-24] MEDS: ZINC OXIDE 56.7 GM TUBE TP SCH ×4 (15:30→21:19)
[2016-05-24] MEDS: NYSTATIN TOP POWDER 15 GM BOTTLE TP SCH ×6 (15:30→21:19)
[2016-05-24] MEDS: DAKINS HALF STRENGTH (0.25%) 480 ML BOTTLE TOP SCH ×2 (15:30→23:25)
[2016-05-24] MEDS: CADEXOMER IODINE 40 GM TUBE TP SCH ×2 (15:30→23:25)
[2016-05-24] MEDS: HYDROGEN PEROXIDE 480 ML BOTTLE TP SCH ×2 (15:30→21:19)
[2016-05-24] MEDS: Z GUARD REMEDY 4 OZ OINT TP SCH ×2 (15:30→21:19)
[2016-05-24] MEDS: LACTULOSE 10 G/15 ML UDC (PYXIS) GT PRN (17:07)
--- NOTE | 2016-05-24 17:18 | NUR ---
Notified Dr. Castro that resident still having low grade fever despite her being on ATB Levaquin/GT. Current temp 100.4. New order to notify RIGOBERTO Ramsay. Sobia notified of the consult with new order to do BC, D/C Levaquin, Start VAnco per pharmacy to dose and Merrem 500 mg IV Q 12 h. All orders noted and carried out.
[2016-05-24 18:40] VITALS: BP 130/69
--- NOTE | 2016-05-24 18:40 | NUR ---
Spoke with Kavon from [facility] and they will calculate and call for Vancomycin dosing. Meanwhile obtain an order to insert midline from RIGOBERTO Ramsay due to difficulty obtaining a peripheral line. Nursing digital account supervisor notified. Awaiting for midline murse to come.
[2016-05-24] MEDS: MEROPENEM 500 MG in IV NS 0.9% 50 ML IV SCH (20:00)
[2016-05-24] MEDS ORDERED: LEVOFLOXACIN (500MG) 500 MG TABLET GT SCH (20:00)
--- NOTE | 2016-05-24 20:00 | NUR ---
RN NOTES Received pharmacy recommendation, from [facility] pharmacy, of Vancomycin 1200mg IVPB 3 times weekly (-thu) after each hemodialysis (first dose from ekit), and vancomycin trough level on 05/29/16 before going to hemodialysis, order received from Hiram Ramsay, noted and carried out.
--- NOTE | 2016-05-24 20:30 | NUR ---
RN NOTES Merrem 500mg IVPB started as ordered with no s/s of A/R. Will continue to monitor.
[2016-05-24] MEDS: ACETAMINOPHEN 650 MG/20 ML UDC- FOR SA PATIENTS ONLY GT PRN (20:35)
[2016-05-24] MEDS: CLONIDINE HCL 0.1 MG TABLET GT PRN (20:41)
[2016-05-24 21:28] VITALS: BP 166/104
--- NOTE | 2016-05-24 22:00 | NUR ---
RN NOTES Vancomycin 1200mg IVPB started as ordered with no s/s of A/R. Will continue to monitor.
[2016-05-24] MEDS: METOPROLOL TARTRATE 50 MG TABLET GT SCH (22:30)
[2016-05-24 22:32] VITALS: BP 131/74
--- NOTE | 2016-05-24 22:32 | NUR ---
RN NOTES Pt's temp noted 101.2, tylenol given as ordered. Will continue to monitor.
--- NOTE | 2016-05-25 | NUR ---
RN NOTES Pt in stable condition. Temp 100.2. Will continue to monitor closely.
[2016-05-25 00:01] VITALS: BP 122/53
--- NOTE | 2016-05-25 01:00 | NUR ---
RN NOTES Reassessed temp and is now 98.2. Will continue to monitor.
[2016-05-25] MEDS: ALBUTEROL FS 2.5 MG/3 ML VIAL.NEB NEB SCH ×4 (01:21→19:14)
[2016-05-25] MEDS: IPRATROPIUM NEB FS 0.5 MG/2.5 ML AMPUL.NEB NEB SCH ×4 (01:21→19:14)
[2016-05-25] MEDS: ESOMEPRAZOLE MAG TRIHYDRATE 20 MG CAPSULE.DR GT SCH (05:53)
[2016-05-25] MEDS: BLOOD SUGAR DIAGNOSTIC 1 EACH STRIP IN SCH ×4 (05:53→23:17)
[2016-05-25] MEDS: POLYVINYL ALCOHOL 15 ML BOTTLE EACHEYE SCH ×4 (05:53→23:17)
[2016-05-25] MEDS: INSULIN REGULAR, HUMAN 100 UNIT/ML 3 ML VIAL SQ PRN ×4 (05:55→23:19)
[2016-05-25 06:01] VITALS: BP 151/73
[2016-05-25] MEDS: MEROPENEM 500 MG in IV NS 0.9% 50 ML IV SCH ×2 (08:00→21:30)
[2016-05-25] MEDS: [UNRECOGNIZED DRUG - OTHER] SQ SCH ×2 (08:09→21:01)
[2016-05-25] MEDS: INSULIN GLARGINE SQ SCH ×2 (08:09→21:01)
[2016-05-25 08:26] VITALS: BP 148/80
[2016-05-25] MEDS: CALCITRIOL ORAL SOLUTION 1 MCG/ML GT SCH (09:00)
[2016-05-25] MEDS: ASCORBIC ACID 500 MG TABLET GT SCH (09:00)
[2016-05-25] MEDS: METOPROLOL TARTRATE 50 MG TABLET GT SCH ×2 (09:00→21:03)
[2016-05-25] MEDS: PROSTAT (PYXIS) 30 ML UDC GT SCH ×3 (09:00→17:58)
[2016-05-25] MEDS: LACTOBACILLUS RHAMNOSUS GG 1 EACH CAP.SPRINK GT SCH ×2 (09:00→17:56)
[2016-05-25] MEDS: LISINOPRIL (20MG) 20 MG TABLET PO SCH (09:00)
[2016-05-25] MEDS: HEPARIN SODIUM, PORCINE 5000 UNITS/1 ML VIAL SQ SCH ×2 (09:00→20:36)
[2016-05-25] MEDS: VIT B CMPLX 3/FA/VIT C/BIOTIN 1 TAB TABLET GT SCH (09:00)
[2016-05-25] MEDS: hydrALAZINE HCL 50 MG TABLET GT SCH ×2 (09:00→17:00)
[2016-05-25] MEDS: HYDROCODONE/APAP 5/325MG 1 EACH TABLET GT SCH ×2 (14:00→21:02)
[2016-05-25] MEDS: ZINC OXIDE 56.7 GM TUBE TP SCH ×4 (15:00→20:37)
[2016-05-25] MEDS: NYSTATIN TOP POWDER 15 GM BOTTLE TP SCH ×6 (15:00→20:37)
[2016-05-25] MEDS: Z GUARD REMEDY 4 OZ OINT TP SCH ×2 (15:00→20:37)
[2016-05-25] MEDS: CADEXOMER IODINE 40 GM TUBE TP SCH ×2 (15:00→21:02)
[2016-05-25] MEDS: HYDROGEN PEROXIDE 480 ML BOTTLE TP SCH ×2 (15:00→21:02)
[2016-05-25] MEDS: DAKINS HALF STRENGTH (0.25%) 480 ML BOTTLE TOP SCH ×2 (15:00→21:20)
[2016-05-25 18:10] VITALS: BP 117/54
[2016-05-25 19:55] VITALS: BP 95/64
[2016-05-25] MEDS ORDERED: MEROPENEM 500 MG VIAL IV ONE (21:23)
[2016-05-26] MEDS: ALBUTEROL FS 2.5 MG/3 ML VIAL.NEB NEB SCH ×4 (00:42→19:51)
[2016-05-26] MEDS: IPRATROPIUM NEB FS 0.5 MG/2.5 ML AMPUL.NEB NEB SCH ×4 (00:42→19:51)
[2016-05-26 00:56] VITALS: BP 146/88
[2016-05-26] MEDS: ESOMEPRAZOLE MAG TRIHYDRATE 20 MG CAPSULE.DR GT SCH (05:55)
[2016-05-26] MEDS: POLYVINYL ALCOHOL 15 ML BOTTLE EACHEYE SCH ×4 (05:55→23:14)
[2016-05-26] MEDS: BLOOD SUGAR DIAGNOSTIC 1 EACH STRIP IN SCH ×4 (05:55→23:14)
[2016-05-26] MEDS: INSULIN REGULAR, HUMAN 100 UNIT/ML 3 ML VIAL SQ PRN ×4 (05:56→23:15)
[2016-05-26] MEDS: RENAL NOVASOURCE 1,000 ML BOTTLE GT PRN ×2 (05:56→23:15)
[2016-05-26 06:09] VITALS: BP 123/57
[2016-05-26 07:13] LABS: BASOPHILS % (AUTO) 0.2 % (0.0-2.0); EOSINOPHILS # (AUTO) 0.3 /CMM (0.0-0.7); EOSINOPHILS % (AUTO) 2.3 % (0.0-6.0); HEMATOCRIT 30 % (33-45); HEMOGLOBIN 9.7 g/dL (11.5-14.8); LYMPHOCYTES # (AUTO) 1.1 /CMM (0.8-4.8); LYMPHOCYTES % (AUTO) 9.5 % (20.0-44.0); MEAN CORPUSCULAR HEMOGLOBIN 31 PG (26.0-33.0); MEAN CORPUSCULAR HGB CONC 33 g/dl (31.0-36.0); MEAN CORPUSCULAR VOLUME 96 fL (82-100); MONOCYTES # (AUTO) 0.6 /CMM (0.1-1.30); MONOCYTES % (AUTO) 5.6 % (2.0-12.0); NEUTROPHILS # (AUTO) 9.6 /CMM (1.8-8.9); NEUTROPHILS % (AUTO) 82.4 % (43.0-81.0); PLATELET COUNT (AUTO) 173 /CMM (150-450); RDW COEFFICIENT OF VARIATION 19.2 (11.5-15.0); RED BLOOD CELL COUNT(AUTO) 3.09 MIL/uL (4.0-5.2); WHITE BLOOD COUNT (AUTO) 11.6 K/uL (4.3-11.0)
[2016-05-26] MEDS: [UNRECOGNIZED DRUG - OTHER] SQ SCH ×2 (08:09→21:00)
[2016-05-26] MEDS: INSULIN GLARGINE SQ SCH ×2 (08:09→21:00)
[2016-05-26 08:16] VITALS: BP 114/66
[2016-05-26] MEDS: HEPARIN SODIUM, PORCINE 5000 UNITS/1 ML VIAL SQ SCH ×2 (09:00→21:17)
[2016-05-26] MEDS: VIT B CMPLX 3/FA/VIT C/BIOTIN 1 TAB TABLET GT SCH (09:00)
[2016-05-26] MEDS: PROSTAT (PYXIS) 30 ML UDC GT SCH ×3 (09:00→17:00)
[2016-05-26] MEDS: LISINOPRIL (20MG) 20 MG TABLET PO SCH (09:00)
[2016-05-26] MEDS: hydrALAZINE HCL 50 MG TABLET GT SCH ×2 (09:00→18:00)
[2016-05-26] MEDS: ASCORBIC ACID 500 MG TABLET GT SCH (09:00)
[2016-05-26] MEDS: LACTOBACILLUS RHAMNOSUS GG 1 EACH CAP.SPRINK GT SCH ×2 (09:00→17:00)
[2016-05-26] MEDS: CALCITRIOL ORAL SOLUTION 1 MCG/ML GT SCH (09:00)
[2016-05-26] MEDS: METOPROLOL TARTRATE 50 MG TABLET GT SCH ×2 (09:00→21:17)
--- NOTE | 2016-05-26 09:22 | NUR ---
Notified THOMAS Ramsay that pt's blood culture showed Strep agalactiae Group B as reported by [facility] by phone. Also notified her that Merrem is not covered by the insurance, if it can be changed to Invanz. THOMAS Ramsay ordered to DC Merrem and to change to Zosyn 2.275 gm IV q 8 hours.
--- NOTE | 2016-05-26 10:00 | NUR ---
Seen by Dr. Morejon. Relayed CBC result to him. No new order. Pt currently on IV ATBs.
[2016-05-26] MEDS: PIPERACILLIN /TAZOBACTAM 2.25 G in IV D5W 50 ML IV SCH ×2 (13:00→21:00)
[2016-05-26] MEDS: HYDROCODONE/APAP 5/325MG 1 EACH TABLET GT SCH ×2 (14:30→21:16)
[2016-05-26] MEDS: NYSTATIN TOP POWDER 15 GM BOTTLE TP SCH ×6 (15:00→21:17)
[2016-05-26] MEDS: HYDROGEN PEROXIDE 480 ML BOTTLE TP SCH ×2 (15:00→21:17)
[2016-05-26] MEDS: Z GUARD REMEDY 4 OZ OINT TP SCH ×2 (15:00→21:17)
[2016-05-26] MEDS: ZINC OXIDE 56.7 GM TUBE TP SCH ×4 (15:00→21:17)
[2016-05-26] MEDS: DAKINS HALF STRENGTH (0.25%) 480 ML BOTTLE TOP SCH ×2 (15:00→21:17)
[2016-05-26] MEDS: CADEXOMER IODINE 40 GM TUBE TP SCH ×2 (15:00→21:17)
--- NOTE | 2016-05-26 18:10 | NUR ---
Pt's boyfriend John Anguloelas called and gave his new phone number . Addendum: 05/26/16 at 1814 by GEORGE CLEARY RN Notified him that pt is still on IV ATB.
[2016-05-26 18:19] VITALS: BP 134/60
[2016-05-26 20:00] VITALS: BP 153/67
[2016-05-26] MEDS ORDERED: PIPERACILLIN /TAZOBACTAM 2.25 G in IV D5W 50 ML IV SCH (21:00)
[2016-05-27] VITALS (8 sets, daily range): BP systolic 101–133; BP diastolic 50–69
[2016-05-27] MEDS: ALBUTEROL FS 2.5 MG/3 ML VIAL.NEB NEB SCH ×4 (01:37→19:30)
[2016-05-27] MEDS: IPRATROPIUM NEB FS 0.5 MG/2.5 ML AMPUL.NEB NEB SCH ×4 (01:37→19:30)
[2016-05-27] MEDS: BLOOD SUGAR DIAGNOSTIC 1 EACH STRIP IN SCH ×4 (05:29→23:41)
[2016-05-27] MEDS: ESOMEPRAZOLE MAG TRIHYDRATE 20 MG CAPSULE.DR GT SCH (05:29)
[2016-05-27] MEDS: INSULIN REGULAR, HUMAN 100 UNIT/ML 3 ML VIAL SQ PRN ×3 (05:29→23:42)
[2016-05-27] MEDS: POLYVINYL ALCOHOL 15 ML BOTTLE EACHEYE SCH ×4 (05:29→23:41)
[2016-05-27] MEDS: PIPERACILLIN /TAZOBACTAM 2.25 G in IV D5W 50 ML IV SCH ×3 (05:58→21:00)
[2016-05-27] MEDS: INSULIN GLARGINE SQ SCH ×2 (08:28→21:29)
[2016-05-27] MEDS: [UNRECOGNIZED DRUG - OTHER] SQ SCH ×2 (08:28→21:29)
[2016-05-27] MEDS: VIT B CMPLX 3/FA/VIT C/BIOTIN 1 TAB TABLET GT SCH (08:46)
[2016-05-27] MEDS: PROSTAT (PYXIS) 30 ML UDC GT SCH ×3 (08:46→17:07)
[2016-05-27] MEDS: LACTOBACILLUS RHAMNOSUS GG 1 EACH CAP.SPRINK GT SCH ×2 (08:46→17:07)
[2016-05-27] MEDS: ASCORBIC ACID 500 MG TABLET GT SCH (08:46)
[2016-05-27] MEDS: CALCITRIOL ORAL SOLUTION 1 MCG/ML GT SCH (08:46)
[2016-05-27] MEDS: hydrALAZINE HCL 50 MG TABLET GT SCH ×2 (08:46→17:00)
[2016-05-27] MEDS: HEPARIN SODIUM, PORCINE 5000 UNITS/1 ML VIAL SQ SCH ×2 (08:47→21:29)
[2016-05-27] MEDS: HYDROCODONE/APAP 5/325MG 1 EACH TABLET GT SCH ×2 (14:30→21:28)
[2016-05-27] MEDS: CADEXOMER IODINE 40 GM TUBE TP SCH ×2 (15:30→21:29)
[2016-05-27] MEDS: Z GUARD REMEDY 4 OZ OINT TP SCH ×2 (15:30→21:30)
[2016-05-27] MEDS: NYSTATIN TOP POWDER 15 GM BOTTLE TP SCH ×6 (15:30→21:30)
[2016-05-27] MEDS: ZINC OXIDE 56.7 GM TUBE TP SCH ×4 (15:30→21:30)
[2016-05-27] MEDS: HYDROGEN PEROXIDE 480 ML BOTTLE TP SCH ×2 (15:30→21:29)
[2016-05-27] MEDS: DAKINS HALF STRENGTH (0.25%) 480 ML BOTTLE TOP SCH ×2 (15:30→21:29)
[2016-05-27] MEDS: [UNRECOGNIZED DRUG - OTHER] IV SCH (18:00)
[2016-05-27] MEDS: VANCOMYCIN 500 MG in IV D5W 100ml IV SCH (18:58)
--- NOTE | 2016-05-27 19:00 | NUR ---
Aranesp given at Ren[facility].
[2016-05-27] MEDS: METOPROLOL TARTRATE 50 MG TABLET GT SCH (21:30)
[2016-05-28] VITALS (7 sets, daily range): BP systolic 129–140; BP diastolic 64–82
[2016-05-28] MEDS: ALBUTEROL FS 2.5 MG/3 ML VIAL.NEB NEB SCH ×4 (00:46→19:30)
[2016-05-28] MEDS: IPRATROPIUM NEB FS 0.5 MG/2.5 ML AMPUL.NEB NEB SCH ×4 (00:46→19:30)
[2016-05-28] MEDS: PIPERACILLIN /TAZOBACTAM 2.25 G in IV D5W 50 ML IV SCH ×3 (04:21→20:48)
[2016-05-28] MEDS: POLYVINYL ALCOHOL 15 ML BOTTLE EACHEYE SCH ×4 (05:31→23:34)
[2016-05-28] MEDS: BLOOD SUGAR DIAGNOSTIC 1 EACH STRIP IN SCH ×4 (05:31→23:34)
[2016-05-28] MEDS: ESOMEPRAZOLE MAG TRIHYDRATE 20 MG CAPSULE.DR GT SCH (05:31)
[2016-05-28] MEDS: INSULIN REGULAR, HUMAN 100 UNIT/ML 3 ML VIAL SQ PRN ×4 (05:32→23:35)
[2016-05-28] MEDS: hydrALAZINE HCL 50 MG TABLET GT SCH ×2 (09:20→17:55)
[2016-05-28] MEDS: METOPROLOL TARTRATE 50 MG TABLET GT SCH ×2 (09:20→21:19)
[2016-05-28] MEDS: VIT B CMPLX 3/FA/VIT C/BIOTIN 1 TAB TABLET GT SCH (09:20)
[2016-05-28] MEDS: LACTOBACILLUS RHAMNOSUS GG 1 EACH CAP.SPRINK GT SCH ×2 (09:20→17:55)
[2016-05-28] MEDS: CALCITRIOL ORAL SOLUTION 1 MCG/ML GT SCH (09:20)
[2016-05-28] MEDS: HYDROCODONE/APAP 5/325MG 1 EACH TABLET GT SCH ×2 (09:21→21:17)
[2016-05-28] MEDS: HEPARIN SODIUM, PORCINE 5000 UNITS/1 ML VIAL SQ SCH ×2 (09:21→21:18)
[2016-05-28] MEDS: PROSTAT (PYXIS) 30 ML UDC GT SCH ×3 (09:21→17:55)
[2016-05-28] MEDS: LISINOPRIL (20MG) 20 MG TABLET PO SCH (09:21)
[2016-05-28] MEDS: ASCORBIC ACID 500 MG TABLET GT SCH (09:21)
[2016-05-28] MEDS: NYSTATIN TOP POWDER 15 GM BOTTLE TP SCH ×6 (09:22→21:19)
[2016-05-28] MEDS: INSULIN GLARGINE SQ SCH ×2 (09:22→21:18)
[2016-05-28] MEDS: [UNRECOGNIZED DRUG - OTHER] SQ SCH ×2 (09:22→21:18)
[2016-05-28] MEDS: HYDROGEN PEROXIDE 480 ML BOTTLE TP SCH ×2 (09:22→21:18)
[2016-05-28] MEDS: CADEXOMER IODINE 40 GM TUBE TP SCH ×2 (09:22→21:19)
[2016-05-28] MEDS: DAKINS HALF STRENGTH (0.25%) 480 ML BOTTLE TOP SCH ×2 (09:22→21:18)
[2016-05-28] MEDS: Z GUARD REMEDY 4 OZ OINT TP SCH ×2 (09:23→21:19)
[2016-05-28] MEDS: ZINC OXIDE 56.7 GM TUBE TP SCH ×4 (09:23→21:19)
--- NOTE | 2016-05-28 12:32 | NUR ---
Notified Sobia regarding BC result showing Strep Agalactiae, patient currently on Vancomycin and Zosyn according to her she will see patient today, review the labs and determine stop date of ATB. [facility] Pharmacist notified.
--- NOTE | 2016-05-28 18:03 | NUR ---
Notified Sobia unable to obtain specimen from midline & lab unable to draw specimen for BC, she stated it is OK to get the specimen when patient goes to dialysis at the dialysis center in AM. Endorsed.
[2016-05-28] MEDS: RENAL NOVASOURCE 1,000 ML BOTTLE GT PRN (21:46)
[2016-05-28] MEDS: CLONIDINE HCL 0.1 MG TABLET GT PRN (23:34)
[2016-05-29 00:28] VITALS: BP 120/68
[2016-05-29] MEDS: ALBUTEROL FS 2.5 MG/3 ML VIAL.NEB NEB SCH ×4 (02:17→19:54)
[2016-05-29] MEDS: IPRATROPIUM NEB FS 0.5 MG/2.5 ML AMPUL.NEB NEB SCH ×4 (02:17→19:54)
[2016-05-29] MEDS: PIPERACILLIN /TAZOBACTAM 2.25 G in IV D5W 50 ML IV SCH ×3 (04:57→21:00)
[2016-05-29] MEDS: BLOOD SUGAR DIAGNOSTIC 1 EACH STRIP IN SCH ×4 (05:16→23:21)
[2016-05-29] MEDS: POLYVINYL ALCOHOL 15 ML BOTTLE EACHEYE SCH ×3 (05:16→17:05)
[2016-05-29] MEDS: ESOMEPRAZOLE MAG TRIHYDRATE 20 MG CAPSULE.DR GT SCH (05:16)
[2016-05-29] MEDS: CLONIDINE HCL 0.1 MG TABLET GT PRN ×2 (05:17→23:21)
[2016-05-29] MEDS: INSULIN REGULAR, HUMAN 100 UNIT/ML 3 ML VIAL SQ PRN ×2 (05:18→23:22)
[2016-05-29 06:11] VITALS: BP 139/77
[2016-05-29 07:44] VITALS: BP 122/51
[2016-05-29] MEDS: HYDROCODONE/APAP 5/325MG 1 EACH TABLET GT SCH ×2 (08:54→21:14)
[2016-05-29] MEDS: CALCITRIOL ORAL SOLUTION 1 MCG/ML GT SCH (08:54)
[2016-05-29] MEDS: VIT B CMPLX 3/FA/VIT C/BIOTIN 1 TAB TABLET GT SCH (08:54)
[2016-05-29] MEDS: LACTOBACILLUS RHAMNOSUS GG 1 EACH CAP.SPRINK GT SCH ×2 (08:54→17:05)
[2016-05-29] MEDS: ASCORBIC ACID 500 MG TABLET GT SCH (08:54)
[2016-05-29] MEDS: PROSTAT (PYXIS) 30 ML UDC GT SCH ×3 (08:54→17:05)
[2016-05-29] MEDS: hydrALAZINE HCL 50 MG TABLET GT SCH ×2 (08:54→17:05)
[2016-05-29] MEDS: HEPARIN SODIUM, PORCINE 5000 UNITS/1 ML VIAL SQ SCH ×2 (08:55→21:16)
[2016-05-29] MEDS: INSULIN GLARGINE SQ SCH ×2 (08:56→21:16)
[2016-05-29] MEDS: [UNRECOGNIZED DRUG - OTHER] SQ SCH ×2 (08:56→21:16)
[2016-05-29] MEDS: HYDROGEN PEROXIDE 480 ML BOTTLE TP SCH ×2 (09:30→21:16)
[2016-05-29] MEDS: NYSTATIN TOP POWDER 15 GM BOTTLE TP SCH ×6 (09:30→21:17)
[2016-05-29] MEDS: DAKINS HALF STRENGTH (0.25%) 480 ML BOTTLE TOP SCH ×2 (09:30→21:16)
[2016-05-29] MEDS: Z GUARD REMEDY 4 OZ OINT TP SCH ×2 (09:30→21:17)
[2016-05-29] MEDS: ZINC OXIDE 56.7 GM TUBE TP SCH ×4 (09:30→21:17)
[2016-05-29] MEDS: CADEXOMER IODINE 40 GM TUBE TP SCH ×2 (09:30→21:16)
--- NOTE | 2016-05-29 10:50 | NUR ---
Spoke with Kavon from [facility] pharmacy that Vancomycin trough was not done prior to dialysis, he stated to continue with the same dose and draw the Vanco trough level on her next dialysis schedule 05/31/16. All orders noted and carried out.
--- NOTE | 2016-05-29 14:45 | NUR ---
Resident returned from her dialysis treatment, condition stable in no acute signs and symptoms of distress and discomfort. Remain on ventilator. Continue on IV ATB, no adverse reaction noted. Midline in the L upper arm patent, no s/s of infiltration or infection in the site. Referred dietary recommendations from [facility] to Hellen Leija Vit D3 [id number] iu weekly and Prostat TID. Resident already on Prostat and per Hellen to refer Vit D3 recommendation with the tennis director. Will notify in AM.
[2016-05-29] MEDS: VANCOMYCIN 500 MG in IV D5W 100ml IV SCH (18:00)
[2016-05-29 18:37] VITALS: BP 140/79
[2016-05-29 20:00] VITALS: BP 120/68
[2016-05-29] MEDS: METOPROLOL TARTRATE 50 MG TABLET GT SCH (21:17)
[2016-05-30 00:44] VITALS: BP 142/76
[2016-05-30] MEDS: POLYVINYL ALCOHOL 15 ML BOTTLE EACHEYE SCH ×5 (00:49→23:26)
[2016-05-30] MEDS: ALBUTEROL FS 2.5 MG/3 ML VIAL.NEB NEB SCH ×4 (01:18→20:03)
[2016-05-30] MEDS: IPRATROPIUM NEB FS 0.5 MG/2.5 ML AMPUL.NEB NEB SCH ×4 (01:18→20:03)
[2016-05-30] MEDS: PIPERACILLIN /TAZOBACTAM 2.25 G in IV D5W 50 ML IV SCH ×3 (05:04→21:27)
[2016-05-30] MEDS: RENAL NOVASOURCE 1,000 ML BOTTLE GT PRN (05:20)
[2016-05-30] MEDS: CLONIDINE HCL 0.1 MG TABLET GT PRN ×2 (05:20→23:38)
[2016-05-30] MEDS: ESOMEPRAZOLE MAG TRIHYDRATE 20 MG CAPSULE.DR GT SCH (05:20)
[2016-05-30] MEDS: BLOOD SUGAR DIAGNOSTIC 1 EACH STRIP IN SCH ×4 (05:20→23:26)
[2016-05-30] MEDS: INSULIN REGULAR, HUMAN 100 UNIT/ML 3 ML VIAL SQ PRN ×4 (05:21→23:27)
[2016-05-30 06:17] VITALS: BP 129/71
[2016-05-30 07:41] VITALS: BP 110/68
[2016-05-30] MEDS: PROSTAT (PYXIS) 30 ML UDC GT SCH ×3 (09:00→16:45)
[2016-05-30] MEDS: ASCORBIC ACID 500 MG TABLET GT SCH (09:00)
[2016-05-30] MEDS: VIT B CMPLX 3/FA/VIT C/BIOTIN 1 TAB TABLET GT SCH (09:00)
[2016-05-30] MEDS: LACTOBACILLUS RHAMNOSUS GG 1 EACH CAP.SPRINK GT SCH ×2 (09:00→16:45)
[2016-05-30] MEDS: [UNRECOGNIZED DRUG - OTHER] SQ SCH ×2 (09:00→21:24)
[2016-05-30] MEDS: HEPARIN SODIUM, PORCINE 5000 UNITS/1 ML VIAL SQ SCH ×2 (09:00→20:30)
[2016-05-30] MEDS: hydrALAZINE HCL 50 MG TABLET GT SCH ×2 (09:00→16:45)
[2016-05-30] MEDS: HYDROCODONE/APAP 5/325MG 1 EACH TABLET GT SCH ×2 (09:00→20:30)
[2016-05-30] MEDS: METOPROLOL TARTRATE 50 MG TABLET GT SCH ×2 (09:00→21:24)
[2016-05-30] MEDS: INSULIN GLARGINE SQ SCH ×2 (09:00→21:24)
[2016-05-30] MEDS: LISINOPRIL (20MG) 20 MG TABLET PO SCH (09:00)
[2016-05-30] MEDS: CALCITRIOL ORAL SOLUTION 1 MCG/ML GT SCH (09:00)
[2016-05-30] MEDS: NYSTATIN TOP POWDER 15 GM BOTTLE TP SCH ×6 (09:30→20:31)
[2016-05-30] MEDS: Z GUARD REMEDY 4 OZ OINT TP SCH ×2 (09:30→20:31)
[2016-05-30] MEDS: HYDROGEN PEROXIDE 480 ML BOTTLE TP SCH ×2 (09:30→20:30)
[2016-05-30] MEDS: CADEXOMER IODINE 40 GM TUBE TP SCH ×2 (09:30→20:30)
[2016-05-30] MEDS: ZINC OXIDE 56.7 GM TUBE TP SCH ×4 (09:30→20:31)
[2016-05-30] MEDS: DAKINS HALF STRENGTH (0.25%) 480 ML BOTTLE TOP SCH ×2 (09:30→20:30)
[2016-05-30 12:00] VITALS: BP 112/63
--- NOTE | 2016-05-30 13:48 | NUR ---
IDT meeting held, reviewed current, new, discontinued and treatment orders. Family did not attend the meeting. No new order given at this time. Resident continue to received her hemodialysis 3x a week. Sobia GUZMAN reviewed current ATB, stated she will keep ATB for about 2 weeks. BC preliminary result shows no growth.
[2016-05-30 18:48] VITALS: BP 110/61
[2016-05-30 21:06] VITALS: BP 132/60
[2016-05-31 00:18] VITALS: BP 131/72
[2016-05-31] MEDS: IPRATROPIUM NEB FS 0.5 MG/2.5 ML AMPUL.NEB NEB SCH ×4 (01:37→20:09)
[2016-05-31] MEDS: ALBUTEROL FS 2.5 MG/3 ML VIAL.NEB NEB SCH ×4 (01:37→20:09)
[2016-05-31] MEDS: PIPERACILLIN /TAZOBACTAM 2.25 G in IV D5W 50 ML IV SCH ×3 (04:58→21:00)
[2016-05-31] MEDS: BLOOD SUGAR DIAGNOSTIC 1 EACH STRIP IN SCH ×4 (05:12→23:22)
[2016-05-31] MEDS: POLYVINYL ALCOHOL 15 ML BOTTLE EACHEYE SCH ×4 (05:12→23:22)
[2016-05-31] MEDS: ESOMEPRAZOLE MAG TRIHYDRATE 20 MG CAPSULE.DR GT SCH (05:12)
[2016-05-31] MEDS: RENAL NOVASOURCE 1,000 ML BOTTLE GT PRN (05:13)
[2016-05-31] MEDS: CLONIDINE HCL 0.1 MG TABLET GT PRN ×2 (05:13→23:23)
[2016-05-31] MEDS: INSULIN REGULAR, HUMAN 100 UNIT/ML 3 ML VIAL SQ PRN ×3 (05:15→23:24)
[2016-05-31 06:16] VITALS: BP 140/75
[2016-05-31 07:57] VITALS: BP 130/69
[2016-05-31] MEDS: HYDROCODONE/APAP 5/325MG 1 EACH TABLET GT SCH ×3 (08:54→20:28)
[2016-05-31] MEDS: hydrALAZINE HCL 50 MG TABLET GT SCH ×2 (08:54→17:33)
[2016-05-31] MEDS: CALCITRIOL ORAL SOLUTION 1 MCG/ML GT SCH (08:54)
[2016-05-31] MEDS: LACTOBACILLUS RHAMNOSUS GG 1 EACH CAP.SPRINK GT SCH ×2 (08:54→17:33)
[2016-05-31] MEDS: VIT B CMPLX 3/FA/VIT C/BIOTIN 1 TAB TABLET GT SCH (08:54)
[2016-05-31] MEDS: HEPARIN SODIUM, PORCINE 5000 UNITS/1 ML VIAL SQ SCH ×2 (08:55→20:28)
[2016-05-31] MEDS: ASCORBIC ACID 500 MG TABLET GT SCH (08:55)
[2016-05-31] MEDS: PROSTAT (PYXIS) 30 ML UDC GT SCH ×3 (08:55→17:33)
[2016-05-31] MEDS: INSULIN GLARGINE SQ SCH ×2 (08:56→20:39)
[2016-05-31] MEDS: [UNRECOGNIZED DRUG - OTHER] SQ SCH ×2 (08:56→20:39)
[2016-05-31] MEDS: DAKINS HALF STRENGTH (0.25%) 480 ML BOTTLE TOP SCH ×2 (09:33→20:28)
[2016-05-31] MEDS: HYDROGEN PEROXIDE 480 ML BOTTLE TP SCH ×2 (09:33→20:28)
[2016-05-31] MEDS: ZINC OXIDE 56.7 GM TUBE TP SCH ×4 (09:33→20:29)
[2016-05-31] MEDS: CADEXOMER IODINE 40 GM TUBE TP SCH ×2 (09:33→20:28)
[2016-05-31] MEDS: NYSTATIN TOP POWDER 15 GM BOTTLE TP SCH ×6 (09:33→20:29)
[2016-05-31] MEDS: Z GUARD REMEDY 4 OZ OINT TP SCH ×2 (09:33→20:29)
--- NOTE | 2016-05-31 15:55 | NUR ---
Spoke with [facility] IV pharmacist Rosie. Vancomycin trough 20. Received order to continue giving Vancomycin 500 mg IV after each hemodialysis q Thursday, , Thursday for now since Vancomycin trough 20 is still within the range.
--- NOTE | 2016-05-31 16:15 | NUR ---
Received a faxed order from IV pharmacist Rosie to continue same dose of Vancomycin 500 mg IV tonight then start a new dose of Vancomycin 400 mg IV q post dialysis days on 06/03/16, Vancomycin trough on before dialysis 06/05/16.
[2016-05-31] MEDS: VANCOMYCIN 500 MG in IV D5W 100ml IV SCH (17:48)
[2016-05-31 19:20] VITALS: BP 158/73
[2016-05-31 20:08] VITALS: BP 136/73
[2016-05-31] MEDS: METOPROLOL TARTRATE 50 MG TABLET GT SCH (21:14)
[2016-06-01 00:18] VITALS: BP 140/72
[2016-06-01] MEDS: IPRATROPIUM NEB FS 0.5 MG/2.5 ML AMPUL.NEB NEB SCH ×4 (02:22→20:09)
[2016-06-01] MEDS: ALBUTEROL FS 2.5 MG/3 ML VIAL.NEB NEB SCH ×4 (02:22→20:09)
[2016-06-01] MEDS: BLOOD SUGAR DIAGNOSTIC 1 EACH STRIP IN SCH ×4 (05:20→23:14)
[2016-06-01] MEDS: RENAL NOVASOURCE 1,000 ML BOTTLE GT PRN (05:20)
[2016-06-01] MEDS: POLYVINYL ALCOHOL 15 ML BOTTLE EACHEYE SCH ×4 (05:20→23:14)
[2016-06-01] MEDS: CLONIDINE HCL 0.1 MG TABLET GT PRN (05:20)
[2016-06-01] MEDS: ESOMEPRAZOLE MAG TRIHYDRATE 20 MG CAPSULE.DR GT SCH (05:20)
[2016-06-01] MEDS: INSULIN REGULAR, HUMAN 100 UNIT/ML 3 ML VIAL SQ PRN ×4 (05:21→23:15)
[2016-06-01] MEDS: PIPERACILLIN /TAZOBACTAM 2.25 G in IV D5W 50 ML IV SCH ×3 (05:26→21:00)
[2016-06-01 06:16] VITALS: BP 127/80
[2016-06-01 07:49] VITALS: BP 117/59
[2016-06-01] MEDS: hydrALAZINE HCL 50 MG TABLET GT SCH ×2 (08:48→17:00)
[2016-06-01] MEDS: LISINOPRIL (20MG) 20 MG TABLET PO SCH (08:54)
[2016-06-01] MEDS: HEPARIN SODIUM, PORCINE 5000 UNITS/1 ML VIAL SQ SCH ×2 (08:55→21:28)
[2016-06-01] MEDS: INSULIN GLARGINE SQ SCH ×2 (09:01→21:29)
[2016-06-01] MEDS: [UNRECOGNIZED DRUG - OTHER] SQ SCH ×2 (09:01→21:29)
[2016-06-01] MEDS: METOPROLOL TARTRATE 50 MG TABLET GT SCH ×2 (09:05→21:30)
[2016-06-01] MEDS: LACTOBACILLUS RHAMNOSUS GG 1 EACH CAP.SPRINK GT SCH ×2 (09:05→17:00)
[2016-06-01] MEDS: VIT B CMPLX 3/FA/VIT C/BIOTIN 1 TAB TABLET GT SCH (09:05)
[2016-06-01] MEDS: CALCITRIOL ORAL SOLUTION 1 MCG/ML GT SCH (09:05)
[2016-06-01] MEDS: PROSTAT (PYXIS) 30 ML UDC GT SCH ×3 (09:06→17:00)
[2016-06-01] MEDS: ASCORBIC ACID 500 MG TABLET GT SCH (09:06)
[2016-06-01] MEDS: HYDROCODONE/APAP 5/325MG 1 EACH TABLET GT SCH ×2 (11:00→21:28)
[2016-06-01] MEDS: Z GUARD REMEDY 4 OZ OINT TP SCH ×2 (11:30→22:00)
[2016-06-01] MEDS: HYDROGEN PEROXIDE 480 ML BOTTLE TP SCH ×2 (11:30→22:00)
[2016-06-01] MEDS: ZINC OXIDE 56.7 GM TUBE TP SCH ×4 (11:30→22:00)
[2016-06-01] MEDS: NYSTATIN TOP POWDER 15 GM BOTTLE TP SCH ×6 (11:30→22:00)
[2016-06-01] MEDS: CADEXOMER IODINE 40 GM TUBE TP SCH ×2 (11:30→22:00)
[2016-06-01] MEDS: DAKINS HALF STRENGTH (0.25%) 480 ML BOTTLE TOP SCH ×2 (11:30→22:00)
[2016-06-01 18:25] VITALS: BP 113/50
[2016-06-01 20:28] VITALS: BP 137/75
[2016-06-02 00:03] VITALS: BP 130/68
[2016-06-02] MEDS: IPRATROPIUM NEB FS 0.5 MG/2.5 ML AMPUL.NEB NEB SCH ×4 (01:47→20:21)
[2016-06-02] MEDS: ALBUTEROL FS 2.5 MG/3 ML VIAL.NEB NEB SCH ×4 (01:47→20:21)
[2016-06-02] MEDS: PIPERACILLIN /TAZOBACTAM 2.25 G in IV D5W 50 ML IV SCH ×3 (05:41→21:00)
[2016-06-02] MEDS: ESOMEPRAZOLE MAG TRIHYDRATE 20 MG CAPSULE.DR GT SCH (05:47)
[2016-06-02] MEDS: POLYVINYL ALCOHOL 15 ML BOTTLE EACHEYE SCH ×4 (05:47→23:28)
[2016-06-02] MEDS: RENAL NOVASOURCE 1,000 ML BOTTLE GT PRN (06:04)
[2016-06-02] MEDS: BLOOD SUGAR DIAGNOSTIC 1 EACH STRIP IN SCH ×4 (06:04→23:28)
[2016-06-02] MEDS: INSULIN REGULAR, HUMAN 100 UNIT/ML 3 ML VIAL SQ PRN ×4 (06:05→23:29)
[2016-06-02 06:11] VITALS: BP 134/62
[2016-06-02 07:40] VITALS: BP 123/63
[2016-06-02] MEDS: hydrALAZINE HCL 50 MG TABLET GT SCH ×2 (09:00→17:07)
[2016-06-02] MEDS: METOPROLOL TARTRATE 50 MG TABLET GT SCH ×2 (09:17→21:16)
[2016-06-02] MEDS: LISINOPRIL (20MG) 20 MG TABLET PO SCH (09:18)
[2016-06-02] MEDS: CALCITRIOL ORAL SOLUTION 1 MCG/ML GT SCH (09:19)
[2016-06-02] MEDS: LACTOBACILLUS RHAMNOSUS GG 1 EACH CAP.SPRINK GT SCH ×2 (09:19→17:07)
[2016-06-02] MEDS: ASCORBIC ACID 500 MG TABLET GT SCH (09:20)
[2016-06-02] MEDS: VIT B CMPLX 3/FA/VIT C/BIOTIN 1 TAB TABLET GT SCH (09:22)
[2016-06-02] MEDS: PROSTAT (PYXIS) 30 ML UDC GT SCH ×3 (09:23→17:08)
[2016-06-02] MEDS: NYSTATIN TOP POWDER 15 GM BOTTLE TP SCH ×6 (09:28→21:48)
[2016-06-02] MEDS: HYDROGEN PEROXIDE 480 ML BOTTLE TP SCH ×2 (09:28→21:47)
[2016-06-02] MEDS: HEPARIN SODIUM, PORCINE 5000 UNITS/1 ML VIAL SQ SCH ×2 (09:28→21:15)
[2016-06-02] MEDS: DAKINS HALF STRENGTH (0.25%) 480 ML BOTTLE TOP SCH ×2 (09:28→21:46)
[2016-06-02] MEDS: CADEXOMER IODINE 40 GM TUBE TP SCH ×2 (09:28→21:47)
[2016-06-02] MEDS: ZINC OXIDE 56.7 GM TUBE TP SCH ×4 (09:29→21:48)
[2016-06-02] MEDS: Z GUARD REMEDY 4 OZ OINT TP SCH ×2 (09:29→21:48)
[2016-06-02] MEDS: [UNRECOGNIZED DRUG - OTHER] SQ SCH ×2 (09:40→21:15)
[2016-06-02] MEDS: INSULIN GLARGINE SQ SCH ×2 (09:40→21:15)
--- NOTE | 2016-06-02 09:50 | NUR ---
Seen and examined by Dr. Terrie Olivo, and made aware of [facility]'s dietary recommendations to give Vit D3 50,000 IU Q weekly due to low Vit D level 11.3. She agreed with the recommendations. All orders noted and carried out.
--- NOTE | 2016-06-02 10:24 | NUR ---
Seen and examined by Dr. Morejon, NNO given.
[2016-06-02 12:00] VITALS: BP 120/60
[2016-06-02] MEDS: HYDROCODONE/APAP 5/325MG 1 EACH TABLET GT SCH ×2 (13:00→21:15)
[2016-06-02 18:00] VITALS: BP 163/72
[2016-06-02 19:56] VITALS: BP 151/88
[2016-06-03 00:44] VITALS: BP 148/60
[2016-06-03] MEDS: ALBUTEROL FS 2.5 MG/3 ML VIAL.NEB NEB SCH ×4 (02:27→19:57)
[2016-06-03] MEDS: IPRATROPIUM NEB FS 0.5 MG/2.5 ML AMPUL.NEB NEB SCH ×4 (02:27→19:57)
[2016-06-03] MEDS: PIPERACILLIN /TAZOBACTAM 2.25 G in IV D5W 50 ML IV SCH ×2 (05:00→13:00)
[2016-06-03] MEDS: ESOMEPRAZOLE MAG TRIHYDRATE 20 MG CAPSULE.DR GT SCH (05:50)
[2016-06-03] MEDS: POLYVINYL ALCOHOL 15 ML BOTTLE EACHEYE SCH ×4 (05:50→23:21)
[2016-06-03] MEDS: BLOOD SUGAR DIAGNOSTIC 1 EACH STRIP IN SCH ×4 (06:15→23:21)
[2016-06-03] MEDS: INSULIN REGULAR, HUMAN 100 UNIT/ML 3 ML VIAL SQ PRN ×3 (06:16→23:22)
[2016-06-03 06:25] VITALS: BP 150/66
[2016-06-03 08:05] VITALS: BP 134/65
[2016-06-03] MEDS: VIT B CMPLX 3/FA/VIT C/BIOTIN 1 TAB TABLET GT SCH (09:09)
[2016-06-03] MEDS: HYDROCODONE/APAP 5/325MG 1 EACH TABLET GT SCH ×2 (09:09→21:12)
[2016-06-03] MEDS: LACTOBACILLUS RHAMNOSUS GG 1 EACH CAP.SPRINK GT SCH ×2 (09:09→17:58)
[2016-06-03] MEDS: ASCORBIC ACID 500 MG TABLET GT SCH (09:09)
[2016-06-03] MEDS: CALCITRIOL ORAL SOLUTION 1 MCG/ML GT SCH (09:09)
[2016-06-03] MEDS: hydrALAZINE HCL 50 MG TABLET GT SCH ×2 (09:09→17:58)
[2016-06-03] MEDS: PROSTAT (PYXIS) 30 ML UDC GT SCH ×3 (09:09→17:58)
[2016-06-03] MEDS: HEPARIN SODIUM, PORCINE 5000 UNITS/1 ML VIAL SQ SCH ×2 (09:10→21:12)
[2016-06-03] MEDS: INSULIN GLARGINE SQ SCH ×2 (09:11→21:13)
[2016-06-03] MEDS: [UNRECOGNIZED DRUG - OTHER] SQ SCH ×2 (09:11→21:13)
[2016-06-03] MEDS: HYDROGEN PEROXIDE 480 ML BOTTLE TP SCH ×2 (09:37→21:49)
[2016-06-03] MEDS: DAKINS HALF STRENGTH (0.25%) 480 ML BOTTLE TOP SCH ×2 (09:37→21:49)
[2016-06-03] MEDS: CADEXOMER IODINE 40 GM TUBE TP SCH ×2 (09:38→21:49)
[2016-06-03] MEDS: NYSTATIN TOP POWDER 15 GM BOTTLE TP SCH ×6 (09:38→21:49)
[2016-06-03] MEDS: ZINC OXIDE 56.7 GM TUBE TP SCH ×4 (09:38→21:49)
[2016-06-03] MEDS: Z GUARD REMEDY 4 OZ OINT TP SCH ×2 (09:39→21:49)
--- NOTE | 2016-06-03 16:45 | NUR ---
Blood culture result negative. Notified BOTTOM PRESSER Sobia. Pt still on Zosyn and Vancomycin.
--- NOTE | 2016-06-03 17:47 | NUR ---
Received order to DC Zosyn and to give Vancomycin IV for 7 more days then DC. Addendum: 06/03/16 at 1750 by GEORGE CLEARY RN Received order from THOMAS Ramsay.
[2016-06-03 18:24] VITALS: BP 144/71
[2016-06-03] MEDS: VANCOMYCIN IV SCH (18:30)
[2016-06-03] MEDS: D5W IV SCH (18:30)
[2016-06-03 19:45] VITALS: BP 142/67
[2016-06-03] MEDS: METOPROLOL TARTRATE 50 MG TABLET GT SCH (21:50)
[2016-06-04 00:08] VITALS: BP 138/72
[2016-06-04] MEDS: IPRATROPIUM NEB FS 0.5 MG/2.5 ML AMPUL.NEB NEB SCH ×4 (00:55→20:11)
[2016-06-04] MEDS: ALBUTEROL FS 2.5 MG/3 ML VIAL.NEB NEB SCH ×4 (00:56→20:11)
[2016-06-04] MEDS: POLYVINYL ALCOHOL 15 ML BOTTLE EACHEYE SCH ×4 (05:29→23:28)
[2016-06-04] MEDS: ESOMEPRAZOLE MAG TRIHYDRATE 20 MG CAPSULE.DR GT SCH (05:29)
[2016-06-04] MEDS: INSULIN REGULAR, HUMAN 100 UNIT/ML 3 ML VIAL SQ PRN ×4 (06:16→23:29)
[2016-06-04] MEDS: BLOOD SUGAR DIAGNOSTIC 1 EACH STRIP IN SCH ×4 (06:16→23:28)
[2016-06-04 06:26] VITALS: BP 144/76
[2016-06-04 06:54] LABS: BASOPHILS % (AUTO) 0.1 % (0.0-2.0); EOSINOPHILS # (AUTO) 0.2 /CMM (0.0-0.7); EOSINOPHILS % (AUTO) 2.1 % (0.0-6.0); HEMATOCRIT 36 % (33-45); HEMOGLOBIN 11.5 g/dL (11.5-14.8); MEAN CORPUSCULAR HEMOGLOBIN 32 PG (26.0-33.0); MEAN CORPUSCULAR HGB CONC 32 g/dl (31.0-36.0); MEAN CORPUSCULAR VOLUME 98 fL (82-100); MONOCYTES # (AUTO) 0.8 /CMM (0.1-1.30); MONOCYTES % (AUTO) 9.3 % (2.0-12.0); NEUTROPHILS # (AUTO) 6.3 /CMM (1.8-8.9); NEUTROPHILS % (AUTO) 76.5 % (43.0-81.0); PLATELET COUNT (AUTO) 170 /CMM (150-450); RDW COEFFICIENT OF VARIATION 18.4 (11.5-15.0); RED BLOOD CELL COUNT(AUTO) 3.63 MIL/uL (4.0-5.2); WHITE BLOOD COUNT (AUTO) 8.2 K/uL (4.3-11.0)
[2016-06-04 07:47] VITALS: BP 93/52
[2016-06-04] MEDS: ERGOCALCIFEROL (VITAMIN D2) 8,000 UNIT/ML GT SCH (09:00)
[2016-06-04] MEDS: METOPROLOL TARTRATE 50 MG TABLET GT SCH ×2 (09:00→21:38)
[2016-06-04] MEDS: LISINOPRIL (20MG) 20 MG TABLET PO SCH (09:00)
[2016-06-04] MEDS: hydrALAZINE HCL 50 MG TABLET GT SCH ×2 (09:00→17:32)
[2016-06-04] MEDS: LACTOBACILLUS RHAMNOSUS GG 1 EACH CAP.SPRINK GT SCH ×2 (09:26→17:32)
[2016-06-04] MEDS: CALCITRIOL ORAL SOLUTION 1 MCG/ML GT SCH (09:26)
[2016-06-04] MEDS: VIT B CMPLX 3/FA/VIT C/BIOTIN 1 TAB TABLET GT SCH (09:27)
[2016-06-04] MEDS: ASCORBIC ACID 500 MG TABLET GT SCH (09:28)
[2016-06-04] MEDS: PROSTAT (PYXIS) 30 ML UDC GT SCH ×3 (09:28→17:32)
[2016-06-04] MEDS: HYDROCODONE/APAP 5/325MG 1 EACH TABLET GT SCH ×2 (09:28→21:13)
[2016-06-04] MEDS: HEPARIN SODIUM, PORCINE 5000 UNITS/1 ML VIAL SQ SCH ×2 (09:29→21:13)
[2016-06-04] MEDS: [UNRECOGNIZED DRUG - OTHER] SQ SCH ×2 (09:36→21:14)
[2016-06-04] MEDS: HYDROGEN PEROXIDE 480 ML BOTTLE TP SCH ×2 (09:36→21:37)
[2016-06-04] MEDS: CADEXOMER IODINE 40 GM TUBE TP SCH ×2 (09:36→21:37)
[2016-06-04] MEDS: INSULIN GLARGINE SQ SCH ×2 (09:36→21:14)
[2016-06-04] MEDS: DAKINS HALF STRENGTH (0.25%) 480 ML BOTTLE TOP SCH ×2 (09:36→21:37)
[2016-06-04] MEDS: ZINC OXIDE 56.7 GM TUBE TP SCH ×4 (09:37→21:37)
[2016-06-04] MEDS: Z GUARD REMEDY 4 OZ OINT TP SCH ×2 (09:37→21:37)
[2016-06-04] MEDS: NYSTATIN TOP POWDER 15 GM BOTTLE TP SCH ×6 (09:37→21:37)
[2016-06-04 14:41] VITALS: BP 101/65
--- NOTE | 2016-06-04 16:41 | NUR ---
Received a communication from [employer] asking additional information (i.e. labs) because Vit D2 is not covered by patient's insurance. Faxed most recent labs available (05/15/16) which included Vit D (11.3). Spoke with Aarti from [facility] letting her know that requested information was faxed. She stated that she will look for it.
[2016-06-04 18:41] VITALS: BP 134/53
[2016-06-04 20:18] VITALS: BP 127/64
[2016-06-05 00:05] VITALS: BP 126/66
[2016-06-05] MEDS: ALBUTEROL FS 2.5 MG/3 ML VIAL.NEB NEB SCH ×4 (01:10→19:51)
[2016-06-05] MEDS: IPRATROPIUM NEB FS 0.5 MG/2.5 ML AMPUL.NEB NEB SCH ×4 (01:10→19:51)
[2016-06-05] MEDS: ESOMEPRAZOLE MAG TRIHYDRATE 20 MG CAPSULE.DR GT SCH (05:54)
[2016-06-05] MEDS: POLYVINYL ALCOHOL 15 ML BOTTLE EACHEYE SCH ×3 (05:54→17:28)
[2016-06-05] MEDS: BLOOD SUGAR DIAGNOSTIC 1 EACH STRIP IN SCH ×3 (05:59→17:28)
[2016-06-05] MEDS: INSULIN REGULAR, HUMAN 100 UNIT/ML 3 ML VIAL SQ PRN ×2 (06:00→17:29)
[2016-06-05 06:17] VITALS: BP 138/62
[2016-06-05 07:44] VITALS: BP 147/79
[2016-06-05] MEDS: hydrALAZINE HCL 50 MG TABLET GT SCH ×2 (08:40→17:28)
[2016-06-05] MEDS: PROSTAT (PYXIS) 30 ML UDC GT SCH ×3 (08:41→17:28)
[2016-06-05] MEDS: CALCITRIOL ORAL SOLUTION 1 MCG/ML GT SCH (08:41)
[2016-06-05] MEDS: LACTOBACILLUS RHAMNOSUS GG 1 EACH CAP.SPRINK GT SCH ×2 (08:41→17:28)
[2016-06-05] MEDS: VIT B CMPLX 3/FA/VIT C/BIOTIN 1 TAB TABLET GT SCH (08:41)
[2016-06-05] MEDS: ASCORBIC ACID 500 MG TABLET GT SCH (08:41)
[2016-06-05] MEDS: HEPARIN SODIUM, PORCINE 5000 UNITS/1 ML VIAL SQ SCH ×2 (08:42→21:50)
[2016-06-05] MEDS: HYDROGEN PEROXIDE 480 ML BOTTLE TP SCH ×2 (08:42→21:51)
[2016-06-05] MEDS: INSULIN GLARGINE SQ SCH ×2 (08:42→21:51)
[2016-06-05] MEDS: [UNRECOGNIZED DRUG - OTHER] SQ SCH ×2 (08:42→21:51)
[2016-06-05] MEDS: NYSTATIN TOP POWDER 15 GM BOTTLE TP SCH ×6 (08:43→21:51)
[2016-06-05] MEDS: Z GUARD REMEDY 4 OZ OINT TP SCH ×2 (08:43→21:51)
[2016-06-05] MEDS: HYDROCODONE/APAP 5/325MG 1 EACH TABLET GT SCH ×2 (14:00→21:00)
--- NOTE | 2016-06-05 14:00 | NUR ---
Received order from pharmacy order to continue Vancomycin 400mg IV 3times weekly(Odr-Tetz-Meogp) for 1 dose more (7 days total) order noted and carried out MD aware.Last dose of Vancomycin will be on Thursday. Resident and John made aware.
--- NOTE | 2016-06-05 14:20 | NUR ---
Resident returned back from dialysis, stable in no s/s respiratory distress. Connected to ventilator and O2.
[2016-06-05] MEDS: DAKINS HALF STRENGTH (0.25%) 480 ML BOTTLE TOP SCH ×2 (14:30→21:51)
[2016-06-05] MEDS: ZINC OXIDE 56.7 GM TUBE TP SCH ×4 (14:30→21:51)
[2016-06-05] MEDS: CADEXOMER IODINE 40 GM TUBE TP SCH ×2 (14:30→21:51)
--- NOTE | 2016-06-05 16:15 | NUR ---
Seen and examined by Hellen Leija, MACHINE MOVER, NNO given.
[2016-06-05 17:30] VITALS: BP 148/70
[2016-06-05] MEDS: D5W IV SCH (18:24)
[2016-06-05] MEDS: VANCOMYCIN IV SCH (18:24)
[2016-06-05 20:17] VITALS: BP 140/66
[2016-06-05] MEDS: METOPROLOL TARTRATE 50 MG TABLET GT SCH (22:00)
[2016-06-06] VITALS: BP 130/72
[2016-06-06] MEDS: POLYVINYL ALCOHOL 15 ML BOTTLE EACHEYE SCH ×5 (00:24→23:33)
[2016-06-06] MEDS: BLOOD SUGAR DIAGNOSTIC 1 EACH STRIP IN SCH ×5 (00:24→23:34)
[2016-06-06] MEDS: INSULIN REGULAR, HUMAN 100 UNIT/ML 3 ML VIAL SQ PRN ×4 (00:27→23:35)
[2016-06-06] MEDS: RENAL NOVASOURCE 1,000 ML BOTTLE GT PRN (00:27)
[2016-06-06] MEDS: ALBUTEROL FS 2.5 MG/3 ML VIAL.NEB NEB SCH ×4 (00:58→19:49)
[2016-06-06] MEDS: IPRATROPIUM NEB FS 0.5 MG/2.5 ML AMPUL.NEB NEB SCH ×4 (00:58→19:49)
[2016-06-06] MEDS: ESOMEPRAZOLE MAG TRIHYDRATE 20 MG CAPSULE.DR GT SCH (05:38)
[2016-06-06 06:00] VITALS: BP 145/77
[2016-06-06 08:17] VITALS: BP 122/88
[2016-06-06] MEDS: hydrALAZINE HCL 50 MG TABLET GT SCH ×2 (09:00→17:00)
[2016-06-06] MEDS: HYDROCODONE/APAP 5/325MG 1 EACH TABLET GT SCH ×2 (09:26→20:46)
[2016-06-06] MEDS: PROSTAT (PYXIS) 30 ML UDC GT SCH ×3 (09:26→17:00)
[2016-06-06] MEDS: VIT B CMPLX 3/FA/VIT C/BIOTIN 1 TAB TABLET GT SCH (09:26)
[2016-06-06] MEDS: LACTOBACILLUS RHAMNOSUS GG 1 EACH CAP.SPRINK GT SCH ×2 (09:26→17:00)
[2016-06-06] MEDS: CALCITRIOL ORAL SOLUTION 1 MCG/ML GT SCH (09:26)
[2016-06-06] MEDS: METOPROLOL TARTRATE 50 MG TABLET GT SCH ×2 (09:26→22:39)
[2016-06-06] MEDS: ASCORBIC ACID 500 MG TABLET GT SCH (09:27)
[2016-06-06] MEDS: LISINOPRIL (20MG) 20 MG TABLET PO SCH (09:27)
[2016-06-06] MEDS: HEPARIN SODIUM, PORCINE 5000 UNITS/1 ML VIAL SQ SCH ×2 (09:27→20:46)
[2016-06-06] MEDS: INSULIN GLARGINE SQ SCH ×2 (09:28→21:09)
[2016-06-06] MEDS: [UNRECOGNIZED DRUG - OTHER] SQ SCH ×2 (09:28→21:09)
[2016-06-06] MEDS: NYSTATIN TOP POWDER 15 GM BOTTLE TP SCH ×6 (10:00→20:47)
[2016-06-06] MEDS: HYDROGEN PEROXIDE 480 ML BOTTLE TP SCH ×2 (10:00→20:47)
[2016-06-06] MEDS: CADEXOMER IODINE 40 GM TUBE TP SCH ×2 (10:00→20:47)
[2016-06-06] MEDS: ZINC OXIDE 56.7 GM TUBE TP SCH ×4 (10:00→20:47)
[2016-06-06] MEDS: DAKINS HALF STRENGTH (0.25%) 480 ML BOTTLE TOP SCH ×2 (10:00→20:46)
[2016-06-06] MEDS: Z GUARD REMEDY 4 OZ OINT TP SCH (10:00)
[2016-06-06] MEDS: LACTULOSE 10 G/15 ML UDC (PYXIS) GT PRN (10:56)
[2016-06-06 19:11] VITALS: BP 138/77
[2016-06-06 21:22] VITALS: BP 150/74
[2016-06-06] MEDS: CLONIDINE HCL 0.1 MG TABLET GT PRN (23:34)
[2016-06-07 01:17] VITALS: BP 133/79
[2016-06-07] MEDS: ALBUTEROL FS 2.5 MG/3 ML VIAL.NEB NEB SCH ×4 (02:03→19:41)
[2016-06-07] MEDS: IPRATROPIUM NEB FS 0.5 MG/2.5 ML AMPUL.NEB NEB SCH ×4 (02:03→19:40)
[2016-06-07] MEDS: RENAL NOVASOURCE 1,000 ML BOTTLE GT PRN (02:09)
[2016-06-07] MEDS: BLOOD SUGAR DIAGNOSTIC 1 EACH STRIP IN SCH ×3 (05:42→18:02)
[2016-06-07] MEDS: ESOMEPRAZOLE MAG TRIHYDRATE 20 MG CAPSULE.DR GT SCH (05:42)
[2016-06-07] MEDS: POLYVINYL ALCOHOL 15 ML BOTTLE EACHEYE SCH ×4 (05:42→18:02)
[2016-06-07] MEDS: CLONIDINE HCL 0.1 MG TABLET GT PRN (05:43)
[2016-06-07] MEDS: INSULIN REGULAR, HUMAN 100 UNIT/ML 3 ML VIAL SQ PRN ×2 (05:45→18:03)
[2016-06-07 06:12] VITALS: BP 149/72
[2016-06-07 07:21] VITALS: BP 139/71
[2016-06-07] MEDS: hydrALAZINE HCL 50 MG TABLET GT SCH ×2 (09:03→17:00)
[2016-06-07] MEDS: VIT B CMPLX 3/FA/VIT C/BIOTIN 1 TAB TABLET GT SCH (09:03)
[2016-06-07] MEDS: LACTOBACILLUS RHAMNOSUS GG 1 EACH CAP.SPRINK GT SCH ×2 (09:03→17:00)
[2016-06-07] MEDS: CALCITRIOL ORAL SOLUTION 1 MCG/ML GT SCH (09:03)
[2016-06-07] MEDS: ASCORBIC ACID 500 MG TABLET GT SCH (09:03)
[2016-06-07] MEDS: PROSTAT (PYXIS) 30 ML UDC GT SCH ×4 (09:03→17:00)
[2016-06-07] MEDS: HEPARIN SODIUM, PORCINE 5000 UNITS/1 ML VIAL SQ SCH ×2 (09:04→20:26)
[2016-06-07] MEDS: [UNRECOGNIZED DRUG - OTHER] SQ SCH ×2 (09:05→20:26)
[2016-06-07] MEDS: INSULIN GLARGINE SQ SCH ×2 (09:05→20:26)
[2016-06-07] MEDS: HYDROCODONE/APAP 5/325MG 1 EACH TABLET GT SCH ×3 (14:00→20:26)
[2016-06-07] MEDS: NYSTATIN TOP POWDER 15 GM BOTTLE TP SCH ×6 (14:45→20:27)
[2016-06-07] MEDS: DAKINS HALF STRENGTH (0.25%) 480 ML BOTTLE TOP SCH ×2 (14:45→20:27)
[2016-06-07] MEDS: NEOMY SULF/BACITRAC ZN/POLY 15 GM TUBE TP SCH ×2 (14:45→20:27)
[2016-06-07] MEDS: HYDROGEN PEROXIDE 480 ML BOTTLE TP SCH ×2 (14:45→20:27)
[2016-06-07] MEDS: ZINC OXIDE 56.7 GM TUBE TP SCH ×4 (14:45→20:27)
[2016-06-07] MEDS: CADEXOMER IODINE 40 GM TUBE TP SCH ×2 (14:45→20:27)
[2016-06-07] MEDS: VANCOMYCIN IV SCH (18:00)
[2016-06-07] MEDS: D5W IV SCH (18:00)
[2016-06-07 18:25] VITALS: BP 117/72
[2016-06-07 19:58] VITALS: BP 143/73
[2016-06-07] MEDS: METOPROLOL TARTRATE 50 MG TABLET GT SCH (21:05)
[2016-06-08] MEDS: POLYVINYL ALCOHOL 15 ML BOTTLE EACHEYE SCH ×5 (00:27→23:06)
[2016-06-08] MEDS: CLONIDINE HCL 0.1 MG TABLET GT PRN ×2 (00:28→05:09)
[2016-06-08] MEDS: INSULIN REGULAR, HUMAN 100 UNIT/ML 3 ML VIAL SQ PRN ×4 (00:28→23:10)
[2016-06-08] MEDS: BLOOD SUGAR DIAGNOSTIC 1 EACH STRIP IN SCH ×5 (00:28→23:06)
[2016-06-08 00:29] VITALS: BP 140/63
[2016-06-08] MEDS: ALBUTEROL FS 2.5 MG/3 ML VIAL.NEB NEB SCH ×4 (02:10→19:44)
[2016-06-08] MEDS: IPRATROPIUM NEB FS 0.5 MG/2.5 ML AMPUL.NEB NEB SCH ×4 (02:10→19:44)
[2016-06-08] MEDS: ESOMEPRAZOLE MAG TRIHYDRATE 20 MG CAPSULE.DR GT SCH (05:09)
[2016-06-08] MEDS: RENAL NOVASOURCE 1,000 ML BOTTLE GT PRN (05:09)
[2016-06-08 06:07] VITALS: BP 142/72
[2016-06-08 08:28] VITALS: BP 142/75
[2016-06-08] MEDS: HYDROGEN PEROXIDE 480 ML BOTTLE TP SCH ×2 (09:00→21:08)
[2016-06-08] MEDS: LACTOBACILLUS RHAMNOSUS GG 1 EACH CAP.SPRINK GT SCH ×2 (09:00→16:36)
[2016-06-08] MEDS: ASCORBIC ACID 500 MG TABLET GT SCH (09:00)
[2016-06-08] MEDS: NYSTATIN TOP POWDER 15 GM BOTTLE TP SCH ×6 (09:00→21:09)
[2016-06-08] MEDS: DAKINS HALF STRENGTH (0.25%) 480 ML BOTTLE TOP SCH ×2 (09:00→23:28)
[2016-06-08] MEDS: HYDROCODONE/APAP 5/325MG 1 EACH TABLET GT SCH ×2 (09:00→23:06)
[2016-06-08] MEDS: INSULIN GLARGINE SQ SCH ×2 (09:00→21:07)
[2016-06-08] MEDS: PROSTAT (PYXIS) 30 ML UDC GT SCH ×3 (09:00→16:37)
[2016-06-08] MEDS: HEPARIN SODIUM, PORCINE 5000 UNITS/1 ML VIAL SQ SCH ×2 (09:00→21:06)
[2016-06-08] MEDS: CALCITRIOL ORAL SOLUTION 1 MCG/ML GT SCH (09:00)
[2016-06-08] MEDS: LISINOPRIL (20MG) 20 MG TABLET PO SCH (09:00)
[2016-06-08] MEDS: NEOMY SULF/BACITRAC ZN/POLY 15 GM TUBE TP SCH ×2 (09:00→21:08)
[2016-06-08] MEDS: ZINC OXIDE 56.7 GM TUBE TP SCH ×4 (09:00→21:09)
[2016-06-08] MEDS: CADEXOMER IODINE 40 GM TUBE TP SCH ×2 (09:00→21:09)
[2016-06-08] MEDS: hydrALAZINE HCL 50 MG TABLET GT SCH ×2 (09:00→16:36)
[2016-06-08] MEDS: VIT B CMPLX 3/FA/VIT C/BIOTIN 1 TAB TABLET GT SCH (09:00)
[2016-06-08] MEDS: [UNRECOGNIZED DRUG - OTHER] SQ SCH ×2 (09:00→21:07)
[2016-06-08] MEDS: METOPROLOL TARTRATE 50 MG TABLET GT SCH ×2 (09:00→21:09)
--- NOTE | 2016-06-08 15:23 | NUR ---
RT RECEIVED PT TRACH'D ON VENT WITH SETTINGS PER MD ORDER. GANG SUPERVISOR PIPE LINES DONE. BILAT BREATH SOUNDS ON AUSCULTATION. VENT PLUGGED INTO RED OUTLET. TX'S GIVEN ORDERED. NO ADVERSE EFFECTS OBSERVED. SUCTIONED SMALL AMOUNTS OF THICK, WHITE/YELLOW SECRETIONS. SPARE TRACH AND AMBU BAG AT BEDSIDE. WILL CONTINUE TO MONITOR FOR ANY CHANGE OF CONDITION. Addendum: 06/08/16 at 1537 by JAVON STANLEY RT Amended: Links added.
[2016-06-08 15:50] VITALS: BP 140/75
[2016-06-08 18:09] VITALS: BP 138/78
[2016-06-08 19:46] VITALS: BP 134/78
[2016-06-09 00:53] VITALS: BP 129/62
[2016-06-09] MEDS: ALBUTEROL FS 2.5 MG/3 ML VIAL.NEB NEB SCH ×4 (01:09→19:43)
[2016-06-09] MEDS: IPRATROPIUM NEB FS 0.5 MG/2.5 ML AMPUL.NEB NEB SCH ×4 (01:09→19:43)
[2016-06-09] MEDS: ESOMEPRAZOLE MAG TRIHYDRATE 20 MG CAPSULE.DR GT SCH (06:09)
[2016-06-09] MEDS: BLOOD SUGAR DIAGNOSTIC 1 EACH STRIP IN SCH ×4 (06:09→23:33)
[2016-06-09] MEDS: POLYVINYL ALCOHOL 15 ML BOTTLE EACHEYE SCH ×4 (06:09→23:33)
[2016-06-09 06:10] VITALS: BP 141/75
[2016-06-09] MEDS: RENAL NOVASOURCE 1,000 ML BOTTLE GT PRN (06:10)
[2016-06-09] MEDS: INSULIN REGULAR, HUMAN 100 UNIT/ML 3 ML VIAL SQ PRN ×4 (06:10→23:33)
[2016-06-09 08:03] VITALS: BP 160/77
[2016-06-09] MEDS: CALCITRIOL ORAL SOLUTION 1 MCG/ML GT SCH (08:41)
[2016-06-09] MEDS: LACTOBACILLUS RHAMNOSUS GG 1 EACH CAP.SPRINK GT SCH ×2 (08:41→17:00)
[2016-06-09] MEDS: hydrALAZINE HCL 50 MG TABLET GT SCH ×2 (08:41→17:00)
[2016-06-09] MEDS: HYDROCODONE/APAP 5/325MG 1 EACH TABLET GT SCH ×2 (08:42→23:00)
[2016-06-09] MEDS: VIT B CMPLX 3/FA/VIT C/BIOTIN 1 TAB TABLET GT SCH (08:42)
[2016-06-09] MEDS: METOPROLOL TARTRATE 50 MG TABLET GT SCH ×2 (08:42→21:15)
[2016-06-09] MEDS: HEPARIN SODIUM, PORCINE 5000 UNITS/1 ML VIAL SQ SCH ×2 (08:46→21:14)
[2016-06-09] MEDS: PROSTAT (PYXIS) 30 ML UDC GT SCH ×3 (08:46→17:00)
[2016-06-09] MEDS: LISINOPRIL (20MG) 20 MG TABLET PO SCH (08:46)
[2016-06-09] MEDS: ASCORBIC ACID 500 MG TABLET GT SCH (08:46)
[2016-06-09] MEDS: [UNRECOGNIZED DRUG - OTHER] SQ SCH ×2 (08:47→21:14)
[2016-06-09] MEDS: INSULIN GLARGINE SQ SCH ×2 (08:47→21:14)
[2016-06-09 12:00] VITALS: BP 132/76
[2016-06-09] MEDS: NYSTATIN TOP POWDER 15 GM BOTTLE TP SCH ×6 (15:00→21:15)
[2016-06-09] MEDS: ZINC OXIDE 56.7 GM TUBE TP SCH ×4 (15:00→21:15)
[2016-06-09] MEDS: CADEXOMER IODINE 40 GM TUBE TP SCH ×2 (15:00→21:14)
[2016-06-09] MEDS: NEOMY SULF/BACITRAC ZN/POLY 15 GM TUBE TP SCH ×2 (15:00→21:15)
[2016-06-09] MEDS: HYDROGEN PEROXIDE 480 ML BOTTLE TP SCH ×2 (15:00→21:14)
[2016-06-09] MEDS: DAKINS HALF STRENGTH (0.25%) 480 ML BOTTLE TOP SCH ×2 (15:00→23:33)
[2016-06-09 18:00] VITALS: BP 130/76
[2016-06-09 19:48] VITALS: BP 138/60
[2016-06-10 00:01] VITALS: BP 133/65
[2016-06-10] MEDS: IPRATROPIUM NEB FS 0.5 MG/2.5 ML AMPUL.NEB NEB SCH ×4 (01:54→19:30)
[2016-06-10] MEDS: ALBUTEROL FS 2.5 MG/3 ML VIAL.NEB NEB SCH ×4 (01:54→19:30)
[2016-06-10] MEDS: ESOMEPRAZOLE MAG TRIHYDRATE 20 MG CAPSULE.DR GT SCH (05:33)
[2016-06-10] MEDS: RENAL NOVASOURCE 1,000 ML BOTTLE GT PRN (05:33)
[2016-06-10] MEDS: POLYVINYL ALCOHOL 15 ML BOTTLE EACHEYE SCH ×4 (05:33→23:13)
[2016-06-10] MEDS: BLOOD SUGAR DIAGNOSTIC 1 EACH STRIP IN SCH ×4 (05:43→23:13)
[2016-06-10] MEDS: INSULIN REGULAR, HUMAN 100 UNIT/ML 3 ML VIAL SQ PRN ×3 (05:43→23:14)
[2016-06-10 06:10] VITALS: BP 132/76
--- NOTE | 2016-06-10 06:52 | NUR ---
RN NOTES Received new order from Dr. Verdin to continue Heparin 5,000 units SQ q12hrs for DVT prophylaxis, noted and carried out.
[2016-06-10] MEDS: hydrALAZINE HCL 50 MG TABLET GT SCH ×2 (09:22→17:00)
[2016-06-10] MEDS: CALCITRIOL ORAL SOLUTION 1 MCG/ML GT SCH (09:22)
[2016-06-10] MEDS: LACTOBACILLUS RHAMNOSUS GG 1 EACH CAP.SPRINK GT SCH ×2 (09:22→17:00)
[2016-06-10] MEDS: VIT B CMPLX 3/FA/VIT C/BIOTIN 1 TAB TABLET GT SCH (09:22)
[2016-06-10] MEDS: ASCORBIC ACID 500 MG TABLET GT SCH (09:22)
[2016-06-10] MEDS: PROSTAT (PYXIS) 30 ML UDC GT SCH ×3 (09:22→17:00)
[2016-06-10] MEDS: HEPARIN SODIUM, PORCINE 5000 UNITS/1 ML VIAL SQ SCH ×2 (09:23→21:04)
[2016-06-10] MEDS: [UNRECOGNIZED DRUG - OTHER] SQ SCH ×2 (09:24→21:05)
[2016-06-10] MEDS: INSULIN GLARGINE SQ SCH ×2 (09:24→21:05)
[2016-06-10 09:35] VITALS: BP 130/72
[2016-06-10] MEDS: HYDROCODONE/APAP 5/325MG 1 EACH TABLET GT SCH ×2 (14:30→21:03)
[2016-06-10] MEDS: CADEXOMER IODINE 40 GM TUBE TP SCH ×2 (15:30→21:42)
[2016-06-10] MEDS: NEOMY SULF/BACITRAC ZN/POLY 15 GM TUBE TP SCH ×2 (15:30→21:43)
[2016-06-10] MEDS: DAKINS HALF STRENGTH (0.25%) 480 ML BOTTLE TOP SCH ×2 (15:30→21:42)
[2016-06-10] MEDS: NYSTATIN TOP POWDER 15 GM BOTTLE TP SCH ×6 (15:30→21:43)
[2016-06-10] MEDS: ZINC OXIDE 56.7 GM TUBE TP SCH ×4 (15:30→21:43)
[2016-06-10] MEDS: HYDROGEN PEROXIDE 480 ML BOTTLE TP SCH ×2 (15:30→21:42)
[2016-06-10 18:24] VITALS: BP 114/90
[2016-06-10 19:33] VITALS: BP 125/74
[2016-06-10] MEDS: METOPROLOL TARTRATE 50 MG TABLET GT SCH (21:05)
[2016-06-11 00:40] VITALS: BP 124/80
[2016-06-11] MEDS: ALBUTEROL FS 2.5 MG/3 ML VIAL.NEB NEB SCH ×4 (01:59→19:50)
[2016-06-11] MEDS: IPRATROPIUM NEB FS 0.5 MG/2.5 ML AMPUL.NEB NEB SCH ×4 (01:59→19:50)
[2016-06-11] MEDS: ESOMEPRAZOLE MAG TRIHYDRATE 20 MG CAPSULE.DR GT SCH (05:19)
[2016-06-11] MEDS: POLYVINYL ALCOHOL 15 ML BOTTLE EACHEYE SCH ×4 (05:19→23:29)
[2016-06-11] MEDS: BLOOD SUGAR DIAGNOSTIC 1 EACH STRIP IN SCH ×4 (05:45→23:29)
[2016-06-11] MEDS: INSULIN REGULAR, HUMAN 100 UNIT/ML 3 ML VIAL SQ PRN ×4 (05:46→23:30)
[2016-06-11 06:08] VITALS: BP 130/76
[2016-06-11 07:55] VITALS: BP 149/72
[2016-06-11] MEDS: CALCITRIOL ORAL SOLUTION 1 MCG/ML GT SCH (09:28)
[2016-06-11] MEDS: METOPROLOL TARTRATE 50 MG TABLET GT SCH ×2 (09:28→21:01)
[2016-06-11] MEDS: hydrALAZINE HCL 50 MG TABLET GT SCH ×2 (09:28→16:59)
[2016-06-11] MEDS: VIT B CMPLX 3/FA/VIT C/BIOTIN 1 TAB TABLET GT SCH (09:28)
[2016-06-11] MEDS: LACTOBACILLUS RHAMNOSUS GG 1 EACH CAP.SPRINK GT SCH ×2 (09:28→17:17)
[2016-06-11] MEDS: HYDROCODONE/APAP 5/325MG 1 EACH TABLET GT SCH ×2 (09:29→21:00)
[2016-06-11] MEDS: LISINOPRIL (20MG) 20 MG TABLET PO SCH (09:29)
[2016-06-11] MEDS: ERGOCALCIFEROL (VITAMIN D2) 8,000 UNIT/ML GT SCH (09:29)
[2016-06-11] MEDS: ASCORBIC ACID 500 MG TABLET GT SCH (09:29)
[2016-06-11] MEDS: HEPARIN SODIUM, PORCINE 5000 UNITS/1 ML VIAL SQ SCH (09:29)
[2016-06-11] MEDS: PROSTAT (PYXIS) 30 ML UDC GT SCH ×3 (09:29→16:59)
[2016-06-11] MEDS: HYDROGEN PEROXIDE 480 ML BOTTLE TP SCH ×2 (09:30→21:35)
[2016-06-11] MEDS: DAKINS HALF STRENGTH (0.25%) 480 ML BOTTLE TOP SCH ×2 (09:30→21:35)
[2016-06-11] MEDS: [UNRECOGNIZED DRUG - OTHER] SQ SCH ×2 (09:30→21:01)
[2016-06-11] MEDS: INSULIN GLARGINE SQ SCH ×2 (09:30→21:01)
[2016-06-11] MEDS: CADEXOMER IODINE 40 GM TUBE TP SCH ×2 (09:30→21:36)
[2016-06-11] MEDS: NYSTATIN TOP POWDER 15 GM BOTTLE TP SCH ×3 (09:30→09:31)
[2016-06-11] MEDS: ZINC OXIDE 56.7 GM TUBE TP SCH ×4 (09:31→21:36)
[2016-06-11] MEDS: NEOMY SULF/BACITRAC ZN/POLY 15 GM TUBE TP SCH ×2 (09:31→21:36)
[2016-06-11 15:24] VITALS: BP 134/80
[2016-06-11 18:09] VITALS: BP 147/75
[2016-06-11 19:48] VITALS: BP 100/53
[2016-06-12 00:43] VITALS: BP 106/60
[2016-06-12] MEDS: IPRATROPIUM NEB FS 0.5 MG/2.5 ML AMPUL.NEB NEB SCH ×4 (01:55→20:04)
[2016-06-12] MEDS: ALBUTEROL FS 2.5 MG/3 ML VIAL.NEB NEB SCH ×4 (01:55→20:04)
[2016-06-12] MEDS: POLYVINYL ALCOHOL 15 ML BOTTLE EACHEYE SCH ×3 (05:14→16:32)
[2016-06-12] MEDS: ESOMEPRAZOLE MAG TRIHYDRATE 20 MG CAPSULE.DR GT SCH (05:14)
[2016-06-12] MEDS: BLOOD SUGAR DIAGNOSTIC 1 EACH STRIP IN SCH ×3 (05:44→17:33)
[2016-06-12] MEDS: INSULIN REGULAR, HUMAN 100 UNIT/ML 3 ML VIAL SQ PRN ×2 (05:45→17:37)
[2016-06-12 06:12] VITALS: BP 110/60
[2016-06-12 07:50] VITALS: BP 99/53
[2016-06-12] MEDS: hydrALAZINE HCL 50 MG TABLET GT SCH ×2 (09:00→16:24)
--- NOTE | 2016-06-12 09:15 | NUR ---
Patient BP meds was not given patient on hemodialysis today.
[2016-06-12] MEDS: CALCITRIOL ORAL SOLUTION 1 MCG/ML GT SCH (09:20)
[2016-06-12] MEDS: LACTOBACILLUS RHAMNOSUS GG 1 EACH CAP.SPRINK GT SCH ×2 (09:21→16:28)
[2016-06-12] MEDS: VIT B CMPLX 3/FA/VIT C/BIOTIN 1 TAB TABLET GT SCH (09:27)
[2016-06-12] MEDS: ASCORBIC ACID 500 MG TABLET GT SCH (09:28)
[2016-06-12] MEDS: PROSTAT (PYXIS) 30 ML UDC GT SCH ×3 (09:28→16:30)
[2016-06-12] MEDS: HYDROCODONE/APAP 5/325MG 1 EACH TABLET GT SCH ×2 (09:28→21:54)
[2016-06-12] MEDS: [UNRECOGNIZED DRUG - OTHER] SQ SCH ×2 (09:32→21:55)
[2016-06-12] MEDS: INSULIN GLARGINE SQ SCH ×2 (09:32→21:55)
[2016-06-12] MEDS: DAKINS HALF STRENGTH (0.25%) 480 ML BOTTLE TOP SCH ×2 (09:32→21:55)
[2016-06-12] MEDS: HYDROGEN PEROXIDE 480 ML BOTTLE TP SCH ×2 (09:33→21:55)
[2016-06-12] MEDS: CADEXOMER IODINE 40 GM TUBE TP SCH ×2 (09:33→21:55)
[2016-06-12] MEDS: NEOMY SULF/BACITRAC ZN/POLY 15 GM TUBE TP SCH ×2 (09:34→21:55)
[2016-06-12] MEDS: ZINC OXIDE 56.7 GM TUBE TP SCH ×4 (09:34→21:55)
[2016-06-12] MEDS: [UNRECOGNIZED DRUG - OTHER] IV SCH (16:00)
[2016-06-12] MEDS: RENAL NOVASOURCE 1,000 ML BOTTLE GT PRN (17:41)
--- NOTE | 2016-06-12 17:59 | NUR ---
Aranesp was given at [facility] today and on 06/10/16.
[2016-06-12 18:41] VITALS: BP 110/53
[2016-06-12 18:53] VITALS: BP 110/63
[2016-06-12 19:49] VITALS: BP 125/70
[2016-06-12] MEDS: METOPROLOL TARTRATE 50 MG TABLET GT SCH (21:56)
[2016-06-13] MEDS: POLYVINYL ALCOHOL 15 ML BOTTLE EACHEYE SCH ×4 (00:45→18:53)
[2016-06-13] MEDS: BLOOD SUGAR DIAGNOSTIC 1 EACH STRIP IN SCH ×4 (00:45→18:53)
[2016-06-13 00:46] VITALS: BP 146/75
[2016-06-13] MEDS: INSULIN REGULAR, HUMAN 100 UNIT/ML 3 ML VIAL SQ PRN ×3 (00:46→19:07)
[2016-06-13] MEDS: IPRATROPIUM NEB FS 0.5 MG/2.5 ML AMPUL.NEB NEB SCH ×4 (02:03→20:49)
[2016-06-13] MEDS: ALBUTEROL FS 2.5 MG/3 ML VIAL.NEB NEB SCH ×4 (02:03→20:49)
[2016-06-13] MEDS: ESOMEPRAZOLE MAG TRIHYDRATE 20 MG CAPSULE.DR GT SCH (05:05)
[2016-06-13 06:37] VITALS: BP 122/63
[2016-06-13 08:04] VITALS: BP 141/73
[2016-06-13] MEDS: LACTOBACILLUS RHAMNOSUS GG 1 EACH CAP.SPRINK GT SCH ×2 (08:35→17:00)
[2016-06-13] MEDS: hydrALAZINE HCL 50 MG TABLET GT SCH ×2 (08:35→17:00)
[2016-06-13] MEDS: CALCITRIOL ORAL SOLUTION 1 MCG/ML GT SCH (08:35)
[2016-06-13] MEDS: VIT B CMPLX 3/FA/VIT C/BIOTIN 1 TAB TABLET GT SCH (08:36)
[2016-06-13] MEDS: METOPROLOL TARTRATE 50 MG TABLET GT SCH ×2 (08:36→21:30)
[2016-06-13] MEDS: LISINOPRIL (20MG) 20 MG TABLET PO SCH (08:36)
[2016-06-13] MEDS: ASCORBIC ACID 500 MG TABLET GT SCH (08:36)
[2016-06-13] MEDS: PROSTAT (PYXIS) 30 ML UDC GT SCH ×3 (08:36→17:00)
[2016-06-13] MEDS: NYSTATIN TOP POWDER 15 GM BOTTLE TP SCH ×6 (09:00→21:29)
[2016-06-13] MEDS: ZINC OXIDE 56.7 GM TUBE TP SCH ×4 (09:00→21:30)
[2016-06-13] MEDS: CADEXOMER IODINE 40 GM TUBE TP SCH ×2 (09:00→21:29)
[2016-06-13] MEDS: DAKINS HALF STRENGTH (0.25%) 480 ML BOTTLE TOP SCH ×2 (09:00→21:26)
[2016-06-13] MEDS: HYDROGEN PEROXIDE 480 ML BOTTLE TP SCH ×2 (09:00→21:29)
[2016-06-13] MEDS: HYDROCODONE/APAP 5/325MG 1 EACH TABLET GT SCH ×2 (09:00→21:23)
[2016-06-13] MEDS: NEOMY SULF/BACITRAC ZN/POLY 15 GM TUBE TP SCH ×2 (09:00→21:29)
[2016-06-13] MEDS: INSULIN GLARGINE SQ SCH ×2 (09:23→21:24)
[2016-06-13] MEDS: [UNRECOGNIZED DRUG - OTHER] SQ SCH ×2 (09:23→21:24)
[2016-06-13 12:00] VITALS: BP 141/73
[2016-06-13 18:00] VITALS: BP 128/72
[2016-06-13 19:49] VITALS: BP 135/72
[2016-06-14] VITALS (7 sets, daily range): BP systolic 90–139; BP diastolic 58–80
[2016-06-14] MEDS: BLOOD SUGAR DIAGNOSTIC 1 EACH STRIP IN SCH ×5 (00:27→23:39)
[2016-06-14] MEDS: POLYVINYL ALCOHOL 15 ML BOTTLE EACHEYE SCH ×5 (00:27→23:39)
[2016-06-14] MEDS: INSULIN REGULAR, HUMAN 100 UNIT/ML 3 ML VIAL SQ PRN ×4 (00:28→23:41)
[2016-06-14] MEDS: ALBUTEROL FS 2.5 MG/3 ML VIAL.NEB NEB SCH ×4 (01:33→20:28)
[2016-06-14] MEDS: IPRATROPIUM NEB FS 0.5 MG/2.5 ML AMPUL.NEB NEB SCH ×4 (01:33→20:28)
[2016-06-14] MEDS: ESOMEPRAZOLE MAG TRIHYDRATE 20 MG CAPSULE.DR GT SCH (05:31)
[2016-06-14] MEDS: hydrALAZINE HCL 50 MG TABLET GT SCH ×2 (08:21→17:35)
[2016-06-14] MEDS: LACTOBACILLUS RHAMNOSUS GG 1 EACH CAP.SPRINK GT SCH ×2 (08:21→17:35)
[2016-06-14] MEDS: CALCITRIOL ORAL SOLUTION 1 MCG/ML GT SCH (08:21)
[2016-06-14] MEDS: ASCORBIC ACID 500 MG TABLET GT SCH (08:22)
[2016-06-14] MEDS: VIT B CMPLX 3/FA/VIT C/BIOTIN 1 TAB TABLET GT SCH (08:22)
[2016-06-14] MEDS: [UNRECOGNIZED DRUG - OTHER] SQ SCH ×2 (08:22→21:42)
[2016-06-14] MEDS: PROSTAT (PYXIS) 30 ML UDC GT SCH ×3 (08:22→17:35)
[2016-06-14] MEDS: INSULIN GLARGINE SQ SCH ×2 (08:22→21:42)
[2016-06-14] MEDS: HYDROCODONE/APAP 5/325MG 1 EACH TABLET GT SCH ×2 (14:25→21:00)
[2016-06-14] MEDS: DAKINS HALF STRENGTH (0.25%) 480 ML BOTTLE TOP SCH ×2 (15:00→21:42)
[2016-06-14] MEDS: ZINC OXIDE 56.7 GM TUBE TP SCH ×4 (15:00→21:43)
[2016-06-14] MEDS: CADEXOMER IODINE 40 GM TUBE TP SCH ×2 (15:00→21:42)
[2016-06-14] MEDS: NEOMY SULF/BACITRAC ZN/POLY 15 GM TUBE TP SCH ×2 (15:00→21:43)
[2016-06-14] MEDS: NYSTATIN TOP POWDER 15 GM BOTTLE TP SCH ×6 (15:00→21:43)
[2016-06-14] MEDS: HYDROGEN PEROXIDE 480 ML BOTTLE TP SCH ×2 (15:00→21:42)
[2016-06-14] MEDS: METOPROLOL TARTRATE 50 MG TABLET GT SCH (22:08)
[2016-06-14] MEDS: CLONIDINE HCL 0.1 MG TABLET GT PRN (23:40)
[2016-06-15] VITALS: BP 134/63
[2016-06-15] MEDS: CLONIDINE HCL 0.1 MG TABLET GT PRN ×3 (00:12→12:32)
[2016-06-15] MEDS: ALBUTEROL FS 2.5 MG/3 ML VIAL.NEB NEB SCH ×4 (02:04→20:19)
[2016-06-15] MEDS: IPRATROPIUM NEB FS 0.5 MG/2.5 ML AMPUL.NEB NEB SCH ×4 (02:04→20:19)
[2016-06-15] MEDS: ESOMEPRAZOLE MAG TRIHYDRATE 20 MG CAPSULE.DR GT SCH (05:54)
[2016-06-15] MEDS: POLYVINYL ALCOHOL 15 ML BOTTLE EACHEYE SCH ×4 (05:54→23:44)
[2016-06-15] MEDS: BLOOD SUGAR DIAGNOSTIC 1 EACH STRIP IN SCH ×4 (05:54→23:44)
[2016-06-15] MEDS: INSULIN REGULAR, HUMAN 100 UNIT/ML 3 ML VIAL SQ PRN ×4 (05:56→23:45)
[2016-06-15 06:00] VITALS: BP 148/76
[2016-06-15 07:45] VITALS: BP 149/76
[2016-06-15] MEDS: METOPROLOL TARTRATE 50 MG TABLET GT SCH ×2 (08:22→21:35)
[2016-06-15] MEDS: CALCITRIOL ORAL SOLUTION 1 MCG/ML GT SCH (08:22)
[2016-06-15] MEDS: hydrALAZINE HCL 50 MG TABLET GT SCH ×2 (08:22→16:48)
[2016-06-15] MEDS: ASCORBIC ACID 500 MG TABLET GT SCH (08:22)
[2016-06-15] MEDS: LACTOBACILLUS RHAMNOSUS GG 1 EACH CAP.SPRINK GT SCH ×2 (08:22→16:50)
[2016-06-15] MEDS: VIT B CMPLX 3/FA/VIT C/BIOTIN 1 TAB TABLET GT SCH (08:22)
[2016-06-15] MEDS: PROSTAT (PYXIS) 30 ML UDC GT SCH ×3 (08:22→16:50)
[2016-06-15] MEDS: LISINOPRIL (20MG) 20 MG TABLET PO SCH (08:23)
[2016-06-15] MEDS: [UNRECOGNIZED DRUG - OTHER] SQ SCH ×2 (08:29→21:34)
[2016-06-15] MEDS: INSULIN GLARGINE SQ SCH ×2 (08:29→21:34)
[2016-06-15] MEDS: DAKINS HALF STRENGTH (0.25%) 480 ML BOTTLE TOP SCH ×2 (09:00→21:34)
[2016-06-15] MEDS: ZINC OXIDE 56.7 GM TUBE TP SCH ×4 (09:00→21:34)
[2016-06-15] MEDS: CADEXOMER IODINE 40 GM TUBE TP SCH ×2 (09:00→21:34)
[2016-06-15] MEDS: HYDROGEN PEROXIDE 480 ML BOTTLE TP SCH ×2 (09:00→21:34)
[2016-06-15] MEDS: NEOMY SULF/BACITRAC ZN/POLY 15 GM TUBE TP SCH ×2 (09:00→21:34)
[2016-06-15] MEDS: NYSTATIN TOP POWDER 15 GM BOTTLE TP SCH ×6 (09:00→21:34)
[2016-06-15 12:00] VITALS: BP 109/59
[2016-06-15] MEDS: HYDROCODONE/APAP 5/325MG 1 EACH TABLET GT SCH ×2 (13:00→21:33)
[2016-06-15 18:22] VITALS: BP 132/71
[2016-06-15 19:45] VITALS: BP 112/73
[2016-06-16 00:05] VITALS: BP 129/76
[2016-06-16] MEDS: ALBUTEROL FS 2.5 MG/3 ML VIAL.NEB NEB SCH ×4 (01:12→20:18)
[2016-06-16] MEDS: IPRATROPIUM NEB FS 0.5 MG/2.5 ML AMPUL.NEB NEB SCH ×4 (01:12→20:18)
[2016-06-16] MEDS: BLOOD SUGAR DIAGNOSTIC 1 EACH STRIP IN SCH ×3 (05:42→18:17)
[2016-06-16] MEDS: POLYVINYL ALCOHOL 15 ML BOTTLE EACHEYE SCH ×3 (05:42→18:17)
[2016-06-16] MEDS: ESOMEPRAZOLE MAG TRIHYDRATE 20 MG CAPSULE.DR GT SCH (05:42)
[2016-06-16] MEDS: INSULIN REGULAR, HUMAN 100 UNIT/ML 3 ML VIAL SQ PRN ×4 (05:43→18:30)
[2016-06-16 06:04] VITALS: BP 134/62
[2016-06-16 07:45] VITALS: BP 129/75
[2016-06-16] MEDS: LACTOBACILLUS RHAMNOSUS GG 1 EACH CAP.SPRINK GT SCH ×2 (09:00→17:00)
[2016-06-16] MEDS: VIT B CMPLX 3/FA/VIT C/BIOTIN 1 TAB TABLET GT SCH (09:00)
[2016-06-16] MEDS: METOPROLOL TARTRATE 50 MG TABLET GT SCH ×2 (09:00→22:01)
[2016-06-16] MEDS: LISINOPRIL (20MG) 20 MG TABLET PO SCH (09:00)
[2016-06-16] MEDS: HYDROCODONE/APAP 5/325MG 1 EACH TABLET GT SCH ×2 (09:00→21:59)
[2016-06-16] MEDS: INSULIN GLARGINE SQ SCH ×2 (09:00→22:00)
[2016-06-16] MEDS: hydrALAZINE HCL 50 MG TABLET GT SCH ×2 (09:00→17:00)
[2016-06-16] MEDS: ASCORBIC ACID 500 MG TABLET GT SCH (09:00)
[2016-06-16] MEDS: CALCITRIOL ORAL SOLUTION 1 MCG/ML GT SCH (09:00)
[2016-06-16] MEDS: [UNRECOGNIZED DRUG - OTHER] SQ SCH ×2 (09:00→22:00)
[2016-06-16] MEDS: PROSTAT (PYXIS) 30 ML UDC GT SCH ×3 (09:00→17:00)
[2016-06-16 12:00] VITALS: BP 130/71
[2016-06-16] MEDS: ZINC OXIDE 56.7 GM TUBE TP SCH ×4 (15:00→21:00)
[2016-06-16] MEDS: DAKINS HALF STRENGTH (0.25%) 480 ML BOTTLE TOP SCH ×2 (15:00→21:00)
[2016-06-16] MEDS: CADEXOMER IODINE 40 GM TUBE TP SCH ×2 (15:00→21:00)
[2016-06-16] MEDS: HYDROGEN PEROXIDE 480 ML BOTTLE TP SCH ×2 (15:00→21:00)
[2016-06-16] MEDS: NEOMY SULF/BACITRAC ZN/POLY 15 GM TUBE TP SCH ×2 (15:00→21:00)
[2016-06-16] MEDS: NYSTATIN TOP POWDER 15 GM BOTTLE TP SCH ×6 (15:00→21:00)
--- NOTE | 2016-06-16 15:29 | NUR ---
ASLEEP,AROUSABLE,TOLERATING CURRENT VENTILATOR SETTINGS.B/S ARE EQUAL CRACKLES,SECRETIONS, YELLOWISH,VENTILATOR ALARMS ARE AUDIBLE AND FUNCTIONAL. CONTINUE VENTILATOR SUPPORT. JERI GARCIA.
[2016-06-16 18:00] VITALS: BP 128/72
[2016-06-16 19:53] VITALS: BP 117/67
[2016-06-17] MEDS: POLYVINYL ALCOHOL 15 ML BOTTLE EACHEYE SCH ×4 (00:20→17:45)
[2016-06-17] MEDS: BLOOD SUGAR DIAGNOSTIC 1 EACH STRIP IN SCH ×4 (00:20→17:45)
[2016-06-17] MEDS: INSULIN REGULAR, HUMAN 100 UNIT/ML 3 ML VIAL SQ PRN ×2 (00:21→05:26)
[2016-06-17 00:35] VITALS: BP 136/74
[2016-06-17] MEDS: IPRATROPIUM NEB FS 0.5 MG/2.5 ML AMPUL.NEB NEB SCH ×4 (02:25→20:16)
[2016-06-17] MEDS: ALBUTEROL FS 2.5 MG/3 ML VIAL.NEB NEB SCH ×4 (02:25→20:16)
[2016-06-17] MEDS: ESOMEPRAZOLE MAG TRIHYDRATE 20 MG CAPSULE.DR GT SCH (05:25)
[2016-06-17 06:07] VITALS: BP 132/62
[2016-06-17 07:30] VITALS: BP 151/71
[2016-06-17] MEDS: LACTOBACILLUS RHAMNOSUS GG 1 EACH CAP.SPRINK GT SCH ×2 (08:46→17:44)
[2016-06-17] MEDS: CALCITRIOL ORAL SOLUTION 1 MCG/ML GT SCH (08:46)
[2016-06-17] MEDS: VIT B CMPLX 3/FA/VIT C/BIOTIN 1 TAB TABLET GT SCH (08:46)
[2016-06-17] MEDS: hydrALAZINE HCL 50 MG TABLET GT SCH ×2 (08:46→17:44)
[2016-06-17] MEDS: ASCORBIC ACID 500 MG TABLET GT SCH (08:46)
[2016-06-17] MEDS: PROSTAT (PYXIS) 30 ML UDC GT SCH ×3 (08:46→17:44)
[2016-06-17] MEDS: [UNRECOGNIZED DRUG - OTHER] SQ SCH ×2 (09:08→21:51)
[2016-06-17] MEDS: INSULIN GLARGINE SQ SCH ×2 (09:08→21:51)
[2016-06-17 15:00] VITALS: BP 132/75
[2016-06-17] MEDS: NEOMY SULF/BACITRAC ZN/POLY 15 GM TUBE TP SCH ×2 (15:15→21:52)
[2016-06-17] MEDS: NYSTATIN TOP POWDER 15 GM BOTTLE TP SCH ×6 (15:15→21:52)
[2016-06-17] MEDS: CADEXOMER IODINE 40 GM TUBE TP SCH ×2 (15:15→21:52)
[2016-06-17] MEDS: ZINC OXIDE 56.7 GM TUBE TP SCH ×4 (15:15→21:53)
[2016-06-17] MEDS: HYDROGEN PEROXIDE 480 ML BOTTLE TP SCH ×2 (15:15→21:51)
[2016-06-17] MEDS: HYDROCODONE/APAP 5/325MG 1 EACH TABLET GT SCH ×2 (15:15→21:49)
[2016-06-17] MEDS: DAKINS HALF STRENGTH (0.25%) 480 ML BOTTLE TOP SCH ×2 (15:15→21:51)
[2016-06-17 18:00] VITALS: BP 132/76
[2016-06-17 19:48] VITALS: BP 91/57
[2016-06-17] MEDS: METOPROLOL TARTRATE 50 MG TABLET GT SCH (21:54)
[2016-06-18] MEDS: POLYVINYL ALCOHOL 15 ML BOTTLE EACHEYE SCH ×4 (00:13→17:18)
[2016-06-18] MEDS: BLOOD SUGAR DIAGNOSTIC 1 EACH STRIP IN SCH ×5 (00:13→23:58)
[2016-06-18] MEDS: INSULIN REGULAR, HUMAN 100 UNIT/ML 3 ML VIAL SQ PRN ×4 (00:14→23:59)
[2016-06-18 00:17] VITALS: BP 110/79
[2016-06-18] MEDS: ALBUTEROL FS 2.5 MG/3 ML VIAL.NEB NEB SCH ×4 (01:26→20:11)
[2016-06-18] MEDS: IPRATROPIUM NEB FS 0.5 MG/2.5 ML AMPUL.NEB NEB SCH ×4 (01:26→20:11)
[2016-06-18] MEDS: ESOMEPRAZOLE MAG TRIHYDRATE 20 MG CAPSULE.DR GT SCH (05:46)
[2016-06-18 06:08] VITALS: BP 121/64
[2016-06-18 08:08] VITALS: BP 127/64
[2016-06-18] MEDS: NYSTATIN TOP POWDER 15 GM BOTTLE TP SCH ×6 (09:00→21:59)
[2016-06-18] MEDS: ZINC OXIDE 56.7 GM TUBE TP SCH ×4 (09:00→21:59)
[2016-06-18] MEDS: NEOMY SULF/BACITRAC ZN/POLY 15 GM TUBE TP SCH ×2 (09:00→21:59)
[2016-06-18] MEDS: CADEXOMER IODINE 40 GM TUBE TP SCH ×2 (09:00→21:58)
[2016-06-18] MEDS: hydrALAZINE HCL 50 MG TABLET GT SCH ×2 (09:21→17:00)
[2016-06-18] MEDS: CALCITRIOL ORAL SOLUTION 1 MCG/ML GT SCH (09:22)
[2016-06-18] MEDS: LACTOBACILLUS RHAMNOSUS GG 1 EACH CAP.SPRINK GT SCH ×2 (09:22→17:18)
[2016-06-18] MEDS: PROSTAT (PYXIS) 30 ML UDC GT SCH ×3 (09:23→17:18)
[2016-06-18] MEDS: METOPROLOL TARTRATE 50 MG TABLET GT SCH ×2 (09:23→22:00)
[2016-06-18] MEDS: ASCORBIC ACID 500 MG TABLET GT SCH (09:23)
[2016-06-18] MEDS: ERGOCALCIFEROL (VITAMIN D2) 8,000 UNIT/ML GT SCH (09:24)
[2016-06-18] MEDS: LISINOPRIL (20MG) 20 MG TABLET PO SCH (09:27)
[2016-06-18] MEDS: INSULIN GLARGINE SQ SCH ×2 (09:39→21:57)
[2016-06-18] MEDS: [UNRECOGNIZED DRUG - OTHER] SQ SCH ×2 (09:39→21:57)
[2016-06-18] MEDS: VIT B CMPLX 3/FA/VIT C/BIOTIN 1 TAB TABLET GT SCH (09:41)
[2016-06-18] MEDS: HYDROGEN PEROXIDE 480 ML BOTTLE TP SCH ×2 (09:45→21:58)
[2016-06-18] MEDS: HYDROCODONE/APAP 5/325MG 1 EACH TABLET GT SCH ×2 (09:48→21:57)
[2016-06-18] MEDS ORDERED: CLONIDINE HCL 0.2 MG TABLET GT PRN (12:30)
[2016-06-18 15:31] VITALS: BP 127/70
--- NOTE | 2016-06-18 16:15 | NUR ---
Seen and examined by Dr. Terrie Olivo, NNO given.
[2016-06-18 19:53] VITALS: BP 125/65
[2016-06-18] MEDS: HEPARIN SODIUM, PORCINE 5000 UNITS/1 ML VIAL SQ SCH (21:55)
[2016-06-18] MEDS: DAKINS HALF STRENGTH (0.25%) 480 ML BOTTLE TOP SCH (21:58)
[2016-06-18] MEDS: HYDROGEL DRESSING 90 GM TUBE TP SCH (21:58)
[2016-06-19 00:26] VITALS: BP 141/79
[2016-06-19] MEDS: RENAL NOVASOURCE 1,000 ML BOTTLE GT PRN (00:59)
[2016-06-19] MEDS: ALBUTEROL FS 2.5 MG/3 ML VIAL.NEB NEB SCH ×4 (01:58→20:02)
[2016-06-19] MEDS: IPRATROPIUM NEB FS 0.5 MG/2.5 ML AMPUL.NEB NEB SCH ×4 (01:58→20:02)
[2016-06-19] MEDS: ESOMEPRAZOLE MAG TRIHYDRATE 20 MG CAPSULE.DR GT SCH (05:44)
[2016-06-19] MEDS: POLYVINYL ALCOHOL 15 ML BOTTLE EACHEYE SCH ×5 (05:44→23:54)
[2016-06-19] MEDS: BLOOD SUGAR DIAGNOSTIC 1 EACH STRIP IN SCH ×4 (06:15→23:54)
[2016-06-19] MEDS: INSULIN REGULAR, HUMAN 100 UNIT/ML 3 ML VIAL SQ PRN ×3 (06:16→23:55)
[2016-06-19 06:20] VITALS: BP 126/62
[2016-06-19] MEDS: hydrALAZINE HCL 50 MG TABLET GT SCH ×2 (09:00→16:31)
[2016-06-19] MEDS: DAKINS HALF STRENGTH (0.25%) 480 ML BOTTLE TOP SCH ×2 (09:00→21:52)
[2016-06-19] MEDS: HYDROGEL DRESSING 90 GM TUBE TP SCH ×2 (09:00→21:52)
[2016-06-19] MEDS ORDERED: CADEXOMER IODINE 40 GM TUBE TP SCH (09:00)
[2016-06-19] MEDS: PROSTAT (PYXIS) 30 ML UDC GT SCH ×3 (09:07→17:26)
[2016-06-19] MEDS: LACTOBACILLUS RHAMNOSUS GG 1 EACH CAP.SPRINK GT SCH ×2 (09:07→16:31)
[2016-06-19] MEDS: ASCORBIC ACID 500 MG TABLET GT SCH (09:07)
[2016-06-19] MEDS: CALCITRIOL ORAL SOLUTION 1 MCG/ML GT SCH (09:07)
[2016-06-19] MEDS: VIT B CMPLX 3/FA/VIT C/BIOTIN 1 TAB TABLET GT SCH (09:07)
[2016-06-19] MEDS: HEPARIN SODIUM, PORCINE 5000 UNITS/1 ML VIAL SQ SCH ×2 (09:08→21:51)
[2016-06-19] MEDS: INSULIN GLARGINE SQ SCH ×2 (09:10→21:52)
[2016-06-19] MEDS: [UNRECOGNIZED DRUG - OTHER] SQ SCH ×2 (09:10→21:52)
[2016-06-19] MEDS: HYDROGEN PEROXIDE 480 ML BOTTLE TP SCH ×2 (14:25→21:52)
[2016-06-19] MEDS: HYDROCODONE/APAP 5/325MG 1 EACH TABLET GT SCH ×2 (14:30→21:00)
[2016-06-19] MEDS: ZINC OXIDE 30 GM TUBE TP SCH ×4 (16:20→21:53)
[2016-06-19] MEDS: NYSTATIN TOP POWDER 15 GM BOTTLE TP SCH ×6 (16:20→21:53)
[2016-06-19] MEDS: CADEXOMER IODINE 40 GM TUBE TP SCH ×4 (16:20→21:52)
[2016-06-19 18:11] VITALS: BP 100/64
[2016-06-19 19:42] VITALS: BP 138/78
[2016-06-19] MEDS: METOPROLOL TARTRATE 50 MG TABLET GT SCH (21:55)
[2016-06-20] VITALS: BP 114/76
[2016-06-20] MEDS: ALBUTEROL FS 2.5 MG/3 ML VIAL.NEB NEB SCH ×4 (01:30→20:16)
[2016-06-20] MEDS: IPRATROPIUM NEB FS 0.5 MG/2.5 ML AMPUL.NEB NEB SCH ×4 (01:30→20:16)
[2016-06-20 06:00] VITALS: BP 108/69
[2016-06-20] MEDS: ESOMEPRAZOLE MAG TRIHYDRATE 20 MG CAPSULE.DR GT SCH (06:33)
[2016-06-20] MEDS: BLOOD SUGAR DIAGNOSTIC 1 EACH STRIP IN SCH ×4 (06:34→23:50)
[2016-06-20] MEDS: POLYVINYL ALCOHOL 15 ML BOTTLE EACHEYE SCH ×3 (06:34→17:02)
[2016-06-20] MEDS: RENAL NOVASOURCE 1,000 ML BOTTLE GT PRN (06:35)
[2016-06-20] MEDS: INSULIN REGULAR, HUMAN 100 UNIT/ML 3 ML VIAL SQ PRN ×4 (06:36→23:51)
[2016-06-20 07:46] VITALS: BP 126/69
[2016-06-20] MEDS: CALCITRIOL ORAL SOLUTION 1 MCG/ML GT SCH (09:35)
[2016-06-20] MEDS: hydrALAZINE HCL 50 MG TABLET GT SCH ×2 (09:35→17:00)
[2016-06-20] MEDS: LACTOBACILLUS RHAMNOSUS GG 1 EACH CAP.SPRINK GT SCH ×2 (09:35→17:02)
[2016-06-20] MEDS: PROSTAT (PYXIS) 30 ML UDC GT SCH ×3 (09:36→17:02)
[2016-06-20] MEDS: ASCORBIC ACID 500 MG TABLET GT SCH (09:36)
[2016-06-20] MEDS: VIT B CMPLX 3/FA/VIT C/BIOTIN 1 TAB TABLET GT SCH (09:36)
[2016-06-20] MEDS: HYDROCODONE/APAP 5/325MG 1 EACH TABLET GT SCH ×2 (09:36→20:16)
[2016-06-20] MEDS: METOPROLOL TARTRATE 50 MG TABLET GT SCH ×2 (09:36→22:00)
[2016-06-20] MEDS: LISINOPRIL (20MG) 20 MG TABLET PO SCH (09:38)
[2016-06-20] MEDS: INSULIN GLARGINE SQ SCH ×2 (09:50→20:14)
[2016-06-20] MEDS: HEPARIN SODIUM, PORCINE 5000 UNITS/1 ML VIAL SQ SCH ×2 (09:50→20:13)
[2016-06-20] MEDS: [UNRECOGNIZED DRUG - OTHER] SQ SCH ×2 (09:50→20:14)
[2016-06-20] MEDS: CADEXOMER IODINE 40 GM TUBE TP SCH ×4 (10:00→20:17)
[2016-06-20] MEDS: DAKINS HALF STRENGTH (0.25%) 480 ML BOTTLE TOP SCH ×2 (10:00→20:16)
[2016-06-20] MEDS: HYDROGEN PEROXIDE 480 ML BOTTLE TP SCH ×2 (10:00→20:17)
[2016-06-20] MEDS: NYSTATIN TOP POWDER 15 GM BOTTLE TP SCH ×6 (10:00→20:17)
[2016-06-20] MEDS: HYDROGEL DRESSING 90 GM TUBE TP SCH ×2 (10:00→20:17)
[2016-06-20] MEDS: ZINC OXIDE 30 GM TUBE TP SCH ×4 (10:00→20:17)
--- NOTE | 2016-06-20 14:36 | NUR ---
IDT meeting held, reviewed medications and treatment NNO given at this time.
[2016-06-20 15:49] VITALS: BP 126/69
[2016-06-20 18:26] VITALS: BP 91/66
[2016-06-20 19:39] VITALS: BP 102/75
[2016-06-21 00:30] VITALS: BP 113/58
[2016-06-21] MEDS: ALBUTEROL FS 2.5 MG/3 ML VIAL.NEB NEB SCH ×4 (00:43→20:14)
[2016-06-21] MEDS: IPRATROPIUM NEB FS 0.5 MG/2.5 ML AMPUL.NEB NEB SCH ×4 (00:43→20:14)
[2016-06-21] MEDS: POLYVINYL ALCOHOL 15 ML BOTTLE EACHEYE SCH ×5 (00:48→23:17)
[2016-06-21] MEDS: BLOOD SUGAR DIAGNOSTIC 1 EACH STRIP IN SCH ×4 (05:46→23:17)
[2016-06-21] MEDS: ESOMEPRAZOLE MAG TRIHYDRATE 20 MG CAPSULE.DR GT SCH (05:46)
[2016-06-21] MEDS: INSULIN REGULAR, HUMAN 100 UNIT/ML 3 ML VIAL SQ PRN ×3 (05:47→23:18)
[2016-06-21] MEDS: RENAL NOVASOURCE 1,000 ML BOTTLE GT PRN (05:48)
[2016-06-21 06:24] VITALS: BP 113/63
[2016-06-21 08:03] VITALS: BP 130/71
[2016-06-21] MEDS: VIT B CMPLX 3/FA/VIT C/BIOTIN 1 TAB TABLET GT SCH (08:29)
[2016-06-21] MEDS: HEPARIN SODIUM, PORCINE 5000 UNITS/1 ML VIAL SQ SCH ×2 (08:29→21:07)
[2016-06-21] MEDS: hydrALAZINE HCL 50 MG TABLET GT SCH ×2 (08:29→17:58)
[2016-06-21] MEDS: LACTOBACILLUS RHAMNOSUS GG 1 EACH CAP.SPRINK GT SCH ×2 (08:29→17:58)
[2016-06-21] MEDS: ASCORBIC ACID 500 MG TABLET GT SCH (08:29)
[2016-06-21] MEDS: CALCITRIOL ORAL SOLUTION 1 MCG/ML GT SCH (08:29)
[2016-06-21] MEDS: PROSTAT (PYXIS) 30 ML UDC GT SCH ×3 (08:29→17:58)
[2016-06-21] MEDS: [UNRECOGNIZED DRUG - OTHER] SQ SCH ×2 (08:30→21:07)
[2016-06-21] MEDS: INSULIN GLARGINE SQ SCH ×2 (08:30→21:07)
[2016-06-21] MEDS: HYDROCODONE/APAP 5/325MG 1 EACH TABLET GT SCH ×2 (14:20→21:08)
[2016-06-21 14:30] VITALS: BP 106/67
[2016-06-21] MEDS: DAKINS HALF STRENGTH (0.25%) 480 ML BOTTLE TOP SCH ×2 (15:38→21:30)
[2016-06-21] MEDS: HYDROGEL DRESSING 90 GM TUBE TP SCH ×2 (15:38→21:30)
[2016-06-21] MEDS: ZINC OXIDE 30 GM TUBE TP SCH ×4 (15:39→21:09)
[2016-06-21] MEDS: NYSTATIN TOP POWDER 15 GM BOTTLE TP SCH ×6 (15:39→21:08)
[2016-06-21] MEDS: CADEXOMER IODINE 40 GM TUBE TP SCH ×4 (15:39→21:31)
[2016-06-21] MEDS: HYDROGEN PEROXIDE 480 ML BOTTLE TP SCH ×2 (15:39→21:08)
[2016-06-21 18:43] VITALS: BP 143/78
[2016-06-21 19:47] VITALS: BP 158/90
[2016-06-21] MEDS: METOPROLOL TARTRATE 50 MG TABLET GT SCH (21:10)
[2016-06-22] VITALS (7 sets, daily range): BP systolic 97–177; BP diastolic 53–83
[2016-06-22] MEDS: IPRATROPIUM NEB FS 0.5 MG/2.5 ML AMPUL.NEB NEB SCH ×4 (01:22→19:38)
[2016-06-22] MEDS: ALBUTEROL FS 2.5 MG/3 ML VIAL.NEB NEB SCH ×4 (01:22→19:38)
[2016-06-22] MEDS: ESOMEPRAZOLE MAG TRIHYDRATE 20 MG CAPSULE.DR GT SCH (05:38)
[2016-06-22] MEDS: BLOOD SUGAR DIAGNOSTIC 1 EACH STRIP IN SCH ×3 (05:38→17:36)
[2016-06-22] MEDS: POLYVINYL ALCOHOL 15 ML BOTTLE EACHEYE SCH ×3 (05:38→17:36)
[2016-06-22] MEDS: RENAL NOVASOURCE 1,000 ML BOTTLE GT PRN (05:39)
[2016-06-22] MEDS: INSULIN REGULAR, HUMAN 100 UNIT/ML 3 ML VIAL SQ PRN ×3 (05:40→17:38)
[2016-06-22] MEDS: LISINOPRIL (20MG) 20 MG TABLET PO SCH (09:00)
[2016-06-22] MEDS: hydrALAZINE HCL 50 MG TABLET GT SCH ×2 (09:00→17:00)
[2016-06-22] MEDS: METOPROLOL TARTRATE 50 MG TABLET GT SCH ×2 (09:00→21:31)
[2016-06-22] MEDS: LACTOBACILLUS RHAMNOSUS GG 1 EACH CAP.SPRINK GT SCH ×2 (09:42→17:36)
[2016-06-22] MEDS: CALCITRIOL ORAL SOLUTION 1 MCG/ML GT SCH (09:42)
[2016-06-22] MEDS: VIT B CMPLX 3/FA/VIT C/BIOTIN 1 TAB TABLET GT SCH (09:42)
[2016-06-22] MEDS: HEPARIN SODIUM, PORCINE 5000 UNITS/1 ML VIAL SQ SCH ×2 (09:43→21:29)
[2016-06-22] MEDS: HYDROCODONE/APAP 5/325MG 1 EACH TABLET GT SCH ×2 (09:43→21:28)
[2016-06-22] MEDS: ASCORBIC ACID 500 MG TABLET GT SCH (09:43)
[2016-06-22] MEDS: PROSTAT (PYXIS) 30 ML UDC GT SCH ×3 (09:43→17:36)
[2016-06-22] MEDS: CADEXOMER IODINE 40 GM TUBE TP SCH ×4 (09:44→21:30)
[2016-06-22] MEDS: INSULIN GLARGINE SQ SCH ×2 (09:44→21:29)
[2016-06-22] MEDS: HYDROGEN PEROXIDE 480 ML BOTTLE TP SCH ×2 (09:44→21:29)
[2016-06-22] MEDS: DAKINS HALF STRENGTH (0.25%) 480 ML BOTTLE TOP SCH ×2 (09:44→21:29)
[2016-06-22] MEDS: [UNRECOGNIZED DRUG - OTHER] SQ SCH ×2 (09:44→21:29)
[2016-06-22] MEDS: HYDROGEL DRESSING 90 GM TUBE TP SCH ×2 (09:44→21:29)
[2016-06-22] MEDS: NYSTATIN TOP POWDER 15 GM BOTTLE TP SCH ×6 (09:44→21:30)
[2016-06-22] MEDS: ZINC OXIDE 30 GM TUBE TP SCH ×4 (09:45→21:30)
[2016-06-23] MEDS: POLYVINYL ALCOHOL 15 ML BOTTLE EACHEYE SCH ×4 (00:07→17:05)
[2016-06-23] MEDS: BLOOD SUGAR DIAGNOSTIC 1 EACH STRIP IN SCH ×4 (00:07→17:36)
[2016-06-23] MEDS: INSULIN REGULAR, HUMAN 100 UNIT/ML 3 ML VIAL SQ PRN ×4 (00:08→17:38)
[2016-06-23 00:13] VITALS: BP 104/59
[2016-06-23] MEDS: ALBUTEROL FS 2.5 MG/3 ML VIAL.NEB NEB SCH ×4 (01:46→19:44)
[2016-06-23] MEDS: IPRATROPIUM NEB FS 0.5 MG/2.5 ML AMPUL.NEB NEB SCH ×4 (01:46→19:44)
[2016-06-23] MEDS: ESOMEPRAZOLE MAG TRIHYDRATE 20 MG CAPSULE.DR GT SCH (05:21)
[2016-06-23 06:41] VITALS: BP 114/62
[2016-06-23 07:56] VITALS: BP 138/73
[2016-06-23] MEDS: CALCITRIOL ORAL SOLUTION 1 MCG/ML GT SCH (10:00)
[2016-06-23] MEDS: INSULIN GLARGINE SQ SCH ×2 (10:00→21:10)
[2016-06-23] MEDS: METOPROLOL TARTRATE 50 MG TABLET GT SCH ×2 (10:00→21:12)
[2016-06-23] MEDS: HEPARIN SODIUM, PORCINE 5000 UNITS/1 ML VIAL SQ SCH ×2 (10:00→21:10)
[2016-06-23] MEDS: hydrALAZINE HCL 50 MG TABLET GT SCH ×2 (10:00→16:55)
[2016-06-23] MEDS: LISINOPRIL (20MG) 20 MG TABLET PO SCH (10:00)
[2016-06-23] MEDS: [UNRECOGNIZED DRUG - OTHER] SQ SCH ×2 (10:00→21:10)
[2016-06-23] MEDS: ASCORBIC ACID 500 MG TABLET GT SCH (10:00)
[2016-06-23] MEDS: PROSTAT (PYXIS) 30 ML UDC GT SCH ×3 (10:00→16:55)
[2016-06-23] MEDS: VIT B CMPLX 3/FA/VIT C/BIOTIN 1 TAB TABLET GT SCH (10:00)
[2016-06-23] MEDS: LACTOBACILLUS RHAMNOSUS GG 1 EACH CAP.SPRINK GT SCH ×2 (10:00→16:55)
[2016-06-23] MEDS: HYDROCODONE/APAP 5/325MG 1 EACH TABLET GT SCH ×2 (10:30→21:06)
[2016-06-23] MEDS: RENAL NOVASOURCE 1,000 ML BOTTLE GT PRN (10:38)
[2016-06-23] MEDS: NYSTATIN TOP POWDER 15 GM BOTTLE TP SCH ×6 (11:30→21:11)
[2016-06-23] MEDS: HYDROGEN PEROXIDE 480 ML BOTTLE TP SCH ×2 (11:30→21:11)
[2016-06-23] MEDS: DAKINS HALF STRENGTH (0.25%) 480 ML BOTTLE TOP SCH ×2 (11:30→21:11)
[2016-06-23] MEDS: ZINC OXIDE 30 GM TUBE TP SCH ×4 (11:30→21:11)
[2016-06-23] MEDS: HYDROGEL DRESSING 90 GM TUBE TP SCH ×2 (11:30→21:11)
[2016-06-23] MEDS: CADEXOMER IODINE 40 GM TUBE TP SCH ×4 (11:30→21:11)
[2016-06-23 12:00] VITALS: BP 134/74
[2016-06-23 18:00] VITALS: BP 147/69
[2016-06-23 20:06] VITALS: BP 137/78
[2016-06-24 00:16] VITALS: BP 133/64
[2016-06-24] MEDS: BLOOD SUGAR DIAGNOSTIC 1 EACH STRIP IN SCH ×5 (00:18→23:47)
[2016-06-24] MEDS: POLYVINYL ALCOHOL 15 ML BOTTLE EACHEYE SCH ×5 (00:18→23:47)
[2016-06-24] MEDS: INSULIN REGULAR, HUMAN 100 UNIT/ML 3 ML VIAL SQ PRN ×4 (00:19→23:48)
[2016-06-24] MEDS: ALBUTEROL FS 2.5 MG/3 ML VIAL.NEB NEB SCH ×4 (01:40→20:06)
[2016-06-24] MEDS: IPRATROPIUM NEB FS 0.5 MG/2.5 ML AMPUL.NEB NEB SCH ×4 (01:40→20:06)
[2016-06-24] MEDS: ESOMEPRAZOLE MAG TRIHYDRATE 20 MG CAPSULE.DR GT SCH (05:14)
[2016-06-24 06:06] VITALS: BP 140/62
[2016-06-24 07:45] VITALS: BP 135/67
[2016-06-24] MEDS: INSULIN GLARGINE SQ SCH ×2 (08:58→21:20)
[2016-06-24] MEDS: [UNRECOGNIZED DRUG - OTHER] SQ SCH ×2 (08:58→21:20)
[2016-06-24] MEDS: HEPARIN SODIUM, PORCINE 5000 UNITS/1 ML VIAL SQ SCH ×2 (08:58→21:20)
[2016-06-24] MEDS: VIT B CMPLX 3/FA/VIT C/BIOTIN 1 TAB TABLET GT SCH (09:00)
[2016-06-24] MEDS: hydrALAZINE HCL 50 MG TABLET GT SCH ×2 (09:00→17:00)
[2016-06-24] MEDS: ASCORBIC ACID 500 MG TABLET GT SCH (09:00)
[2016-06-24] MEDS: LACTOBACILLUS RHAMNOSUS GG 1 EACH CAP.SPRINK GT SCH ×2 (09:00→17:14)
[2016-06-24] MEDS: PROSTAT (PYXIS) 30 ML UDC GT SCH ×3 (09:00→17:14)
[2016-06-24] MEDS: CALCITRIOL ORAL SOLUTION 1 MCG/ML GT SCH (09:00)
[2016-06-24] MEDS ORDERED: TUBERCULIN,PURIF.PROT.DERIV. 5 TU/0.1 ML VIAL ID SCH (09:00)
[2016-06-24 14:30] VITALS: BP 122/58
[2016-06-24] MEDS: HYDROCODONE/APAP 5/325MG 1 EACH TABLET GT SCH ×2 (14:30→21:19)
[2016-06-24] MEDS: CADEXOMER IODINE 40 GM TUBE TP SCH ×4 (15:30→21:21)
[2016-06-24] MEDS: HYDROGEL DRESSING 90 GM TUBE TP SCH ×2 (15:30→21:20)
[2016-06-24] MEDS: HYDROGEN PEROXIDE 480 ML BOTTLE TP SCH ×2 (15:30→21:20)
[2016-06-24] MEDS: ZINC OXIDE 30 GM TUBE TP SCH ×4 (15:30→21:21)
[2016-06-24] MEDS: DAKINS HALF STRENGTH (0.25%) 480 ML BOTTLE TOP SCH ×2 (15:30→21:20)
[2016-06-24] MEDS: NYSTATIN TOP POWDER 15 GM BOTTLE TP SCH ×6 (15:30→21:21)
--- NOTE | 2016-06-24 16:03 | NUR ---
Tuberculin 0.1ml given on left arm, Lot No. [id number], Exp Date" 03/07/18, Rope Tow Operator: [employer]. Pt tolerated procedure well.
[2016-06-24 18:16] VITALS: BP 124/60
[2016-06-24 20:08] VITALS: BP 128/78
[2016-06-24] MEDS: METOPROLOL TARTRATE 50 MG TABLET GT SCH (21:22)
[2016-06-25 00:11] VITALS: BP 133/69
[2016-06-25] MEDS: IPRATROPIUM NEB FS 0.5 MG/2.5 ML AMPUL.NEB NEB SCH ×4 (01:03→20:19)
[2016-06-25] MEDS: ALBUTEROL FS 2.5 MG/3 ML VIAL.NEB NEB SCH ×4 (01:03→20:19)
[2016-06-25] MEDS: BLOOD SUGAR DIAGNOSTIC 1 EACH STRIP IN SCH ×3 (05:32→17:41)
[2016-06-25] MEDS: POLYVINYL ALCOHOL 15 ML BOTTLE EACHEYE SCH ×4 (05:32→23:41)
[2016-06-25] MEDS: ESOMEPRAZOLE MAG TRIHYDRATE 20 MG CAPSULE.DR GT SCH (05:32)
[2016-06-25] MEDS: INSULIN REGULAR, HUMAN 100 UNIT/ML 3 ML VIAL SQ PRN ×4 (05:33→23:43)
[2016-06-25 06:23] VITALS: BP 122/58
[2016-06-25 08:34] VITALS: BP 150/80
[2016-06-25] MEDS: ASCORBIC ACID 500 MG TABLET GT SCH (09:18)
[2016-06-25] MEDS: PROSTAT (PYXIS) 30 ML UDC GT SCH ×3 (09:19→17:40)
[2016-06-25] MEDS: CALCITRIOL ORAL SOLUTION 1 MCG/ML GT SCH (09:19)
[2016-06-25] MEDS: LACTOBACILLUS RHAMNOSUS GG 1 EACH CAP.SPRINK GT SCH ×2 (09:19→17:40)
[2016-06-25] MEDS: hydrALAZINE HCL 50 MG TABLET GT SCH ×2 (09:19→17:40)
[2016-06-25] MEDS: VIT B CMPLX 3/FA/VIT C/BIOTIN 1 TAB TABLET GT SCH (09:19)
[2016-06-25] MEDS: ERGOCALCIFEROL (VITAMIN D2) 8,000 UNIT/ML GT SCH (09:19)
[2016-06-25] MEDS: HYDROCODONE/APAP 5/325MG 1 EACH TABLET GT SCH ×2 (09:19→20:17)
[2016-06-25] MEDS: METOPROLOL TARTRATE 50 MG TABLET GT SCH ×2 (09:19→22:01)
[2016-06-25] MEDS: HEPARIN SODIUM, PORCINE 5000 UNITS/1 ML VIAL SQ SCH ×2 (09:20→20:18)
[2016-06-25] MEDS: INSULIN GLARGINE SQ SCH ×2 (09:20→20:19)
[2016-06-25] MEDS: [UNRECOGNIZED DRUG - OTHER] SQ SCH ×2 (09:20→20:19)
[2016-06-25] MEDS: LISINOPRIL (20MG) 20 MG TABLET PO SCH (09:20)
[2016-06-25] MEDS: DAKINS HALF STRENGTH (0.25%) 480 ML BOTTLE TOP SCH ×2 (09:40→20:19)
[2016-06-25] MEDS: CADEXOMER IODINE 40 GM TUBE TP SCH ×4 (09:40→20:19)
[2016-06-25] MEDS: HYDROGEN PEROXIDE 480 ML BOTTLE TP SCH ×2 (09:40→20:19)
[2016-06-25] MEDS: NYSTATIN TOP POWDER 15 GM BOTTLE TP SCH ×6 (09:40→20:20)
[2016-06-25] MEDS: HYDROGEL DRESSING 90 GM TUBE TP SCH ×2 (09:40→20:19)
[2016-06-25] MEDS: ZINC OXIDE 30 GM TUBE TP SCH ×4 (09:40→20:20)
[2016-06-25 14:19] VITALS: BP 135/68
[2016-06-25 18:07] VITALS: BP 146/72
[2016-06-25 20:00] VITALS: BP 157/86
[2016-06-25] MEDS: RENAL NOVASOURCE 1,000 ML BOTTLE GT PRN (20:21)
[2016-06-26] MEDS: BLOOD SUGAR DIAGNOSTIC 1 EACH STRIP IN SCH ×4 (00:10→17:10)
[2016-06-26 00:24] VITALS: BP 157/78
[2016-06-26] MEDS: IPRATROPIUM NEB FS 0.5 MG/2.5 ML AMPUL.NEB NEB SCH ×4 (00:55→20:00)
[2016-06-26] MEDS: ALBUTEROL FS 2.5 MG/3 ML VIAL.NEB NEB SCH ×4 (00:56→20:00)
[2016-06-26] MEDS: ESOMEPRAZOLE MAG TRIHYDRATE 20 MG CAPSULE.DR GT SCH (06:31)
[2016-06-26] MEDS: POLYVINYL ALCOHOL 15 ML BOTTLE EACHEYE SCH ×3 (06:31→17:10)
[2016-06-26] MEDS: INSULIN REGULAR, HUMAN 100 UNIT/ML 3 ML VIAL SQ PRN ×2 (06:32→17:17)
[2016-06-26 06:34] VITALS: BP 150/73
[2016-06-26 07:41] VITALS: BP 121/53
[2016-06-26] MEDS: hydrALAZINE HCL 50 MG TABLET GT SCH ×2 (08:59→17:23)
[2016-06-26] MEDS: LACTOBACILLUS RHAMNOSUS GG 1 EACH CAP.SPRINK GT SCH ×2 (09:00→17:10)
[2016-06-26] MEDS: NYSTATIN TOP POWDER 15 GM BOTTLE TP SCH ×6 (09:00→23:00)
[2016-06-26] MEDS: CALCITRIOL ORAL SOLUTION 1 MCG/ML GT SCH (09:00)
[2016-06-26] MEDS: HYDROCODONE/APAP 5/325MG 1 EACH TABLET GT SCH ×2 (09:00→23:00)
[2016-06-26] MEDS: HYDROGEL DRESSING 90 GM TUBE TP SCH ×2 (09:00→23:00)
[2016-06-26] MEDS: PROSTAT (PYXIS) 30 ML UDC GT SCH ×3 (09:00→17:10)
[2016-06-26] MEDS: CADEXOMER IODINE 40 GM TUBE TP SCH ×4 (09:00→23:00)
[2016-06-26] MEDS: VIT B CMPLX 3/FA/VIT C/BIOTIN 1 TAB TABLET GT SCH (09:00)
[2016-06-26] MEDS: DAKINS HALF STRENGTH (0.25%) 480 ML BOTTLE TOP SCH ×2 (09:00→23:00)
[2016-06-26] MEDS: HYDROGEN PEROXIDE 480 ML BOTTLE TP SCH ×2 (09:00→23:00)
[2016-06-26] MEDS: ASCORBIC ACID 500 MG TABLET GT SCH (09:00)
[2016-06-26] MEDS: ZINC OXIDE 30 GM TUBE TP SCH ×4 (09:00→23:00)
[2016-06-26] MEDS: HEPARIN SODIUM, PORCINE 5000 UNITS/1 ML VIAL SQ SCH ×2 (09:02→21:52)
[2016-06-26] MEDS: [UNRECOGNIZED DRUG - OTHER] SQ SCH ×2 (09:05→21:53)
[2016-06-26] MEDS: INSULIN GLARGINE SQ SCH ×2 (09:05→21:53)
[2016-06-26] MEDS: LACTULOSE 10 G/15 ML UDC (PYXIS) GT PRN (15:29)
--- NOTE | 2016-06-26 15:39 | NUR ---
Seen and examined by Hellen Leija NP no new order given.
[2016-06-26 18:16] VITALS: BP 116/54
[2016-06-26 20:17] VITALS: BP 100/73
[2016-06-26] MEDS: METOPROLOL TARTRATE 50 MG TABLET GT SCH (21:54)
[2016-06-27] MEDS: POLYVINYL ALCOHOL 15 ML BOTTLE EACHEYE SCH ×5 (00:05→23:48)
[2016-06-27] MEDS: BLOOD SUGAR DIAGNOSTIC 1 EACH STRIP IN SCH ×5 (00:05→23:48)
[2016-06-27] MEDS: INSULIN REGULAR, HUMAN 100 UNIT/ML 3 ML VIAL SQ PRN ×5 (00:06→23:49)
[2016-06-27] MEDS: RENAL NOVASOURCE 1,000 ML BOTTLE GT PRN (00:07)
[2016-06-27 00:47] VITALS: BP 135/65
[2016-06-27] MEDS: IPRATROPIUM NEB FS 0.5 MG/2.5 ML AMPUL.NEB NEB SCH ×4 (01:44→20:08)
[2016-06-27] MEDS: ALBUTEROL FS 2.5 MG/3 ML VIAL.NEB NEB SCH ×4 (01:44→20:08)
[2016-06-27] MEDS: ESOMEPRAZOLE MAG TRIHYDRATE 20 MG CAPSULE.DR GT SCH (06:03)
[2016-06-27 06:08] VITALS: BP 128/74
[2016-06-27 07:45] VITALS: BP 138/46
[2016-06-27] MEDS: ZINC OXIDE 30 GM TUBE TP SCH ×4 (09:00→23:40)
[2016-06-27] MEDS: DAKINS HALF STRENGTH (0.25%) 480 ML BOTTLE TOP SCH ×2 (09:00→23:40)
[2016-06-27] MEDS: CADEXOMER IODINE 40 GM TUBE TP SCH ×4 (09:00→23:40)
[2016-06-27] MEDS: NYSTATIN TOP POWDER 15 GM BOTTLE TP SCH ×6 (09:00→23:40)
[2016-06-27] MEDS: HYDROGEL DRESSING 90 GM TUBE TP SCH ×2 (09:00→23:40)
[2016-06-27] MEDS: HYDROGEN PEROXIDE 480 ML BOTTLE TP SCH ×2 (09:00→23:40)
[2016-06-27] MEDS: CALCITRIOL ORAL SOLUTION 1 MCG/ML GT SCH (09:45)
[2016-06-27] MEDS: hydrALAZINE HCL 50 MG TABLET GT SCH ×2 (09:45→17:05)
[2016-06-27] MEDS: LACTOBACILLUS RHAMNOSUS GG 1 EACH CAP.SPRINK GT SCH ×2 (09:47→16:15)
[2016-06-27] MEDS: METOPROLOL TARTRATE 50 MG TABLET GT SCH ×2 (09:47→22:00)
[2016-06-27] MEDS: VIT B CMPLX 3/FA/VIT C/BIOTIN 1 TAB TABLET GT SCH (09:48)
[2016-06-27] MEDS: HYDROCODONE/APAP 5/325MG 1 EACH TABLET GT SCH ×2 (09:48→23:40)
[2016-06-27] MEDS: PROSTAT (PYXIS) 30 ML UDC GT SCH ×3 (09:48→16:15)
[2016-06-27] MEDS: ASCORBIC ACID 500 MG TABLET GT SCH (09:48)
[2016-06-27] MEDS: LISINOPRIL (20MG) 20 MG TABLET PO SCH (09:49)
[2016-06-27] MEDS: HEPARIN SODIUM, PORCINE 5000 UNITS/1 ML VIAL SQ SCH ×2 (09:50→21:14)
[2016-06-27] MEDS: [UNRECOGNIZED DRUG - OTHER] SQ SCH ×2 (09:52→21:15)
[2016-06-27] MEDS: INSULIN GLARGINE SQ SCH ×2 (09:52→21:15)
[2016-06-27 17:35] VITALS: BP 125/71
[2016-06-27 19:43] VITALS: BP 125/68
[2016-06-28] MEDS: RENAL NOVASOURCE 1,000 ML BOTTLE GT PRN (00:29)
[2016-06-28 00:52] VITALS: BP 154/87
[2016-06-28] MEDS: IPRATROPIUM NEB FS 0.5 MG/2.5 ML AMPUL.NEB NEB SCH ×4 (01:58→19:33)
[2016-06-28] MEDS: ALBUTEROL FS 2.5 MG/3 ML VIAL.NEB NEB SCH ×4 (01:58→19:34)
[2016-06-28] MEDS: POLYVINYL ALCOHOL 15 ML BOTTLE EACHEYE SCH ×4 (05:50→23:42)
[2016-06-28] MEDS: BLOOD SUGAR DIAGNOSTIC 1 EACH STRIP IN SCH ×4 (05:50→23:52)
[2016-06-28] MEDS: ESOMEPRAZOLE MAG TRIHYDRATE 20 MG CAPSULE.DR GT SCH (05:50)
[2016-06-28] MEDS: INSULIN REGULAR, HUMAN 100 UNIT/ML 3 ML VIAL SQ PRN ×3 (05:51→23:55)
[2016-06-28 06:27] VITALS: BP 111/53
[2016-06-28] MEDS: VIT B CMPLX 3/FA/VIT C/BIOTIN 1 TAB TABLET GT SCH (08:21)
[2016-06-28] MEDS: ASCORBIC ACID 500 MG TABLET GT SCH (08:21)
[2016-06-28] MEDS: HEPARIN SODIUM, PORCINE 5000 UNITS/1 ML VIAL SQ SCH ×2 (08:21→21:24)
[2016-06-28] MEDS: LACTOBACILLUS RHAMNOSUS GG 1 EACH CAP.SPRINK GT SCH ×2 (08:21→17:48)
[2016-06-28] MEDS: PROSTAT (PYXIS) 30 ML UDC GT SCH ×3 (08:21→17:49)
[2016-06-28] MEDS: hydrALAZINE HCL 50 MG TABLET GT SCH ×2 (08:21→17:00)
[2016-06-28] MEDS: CALCITRIOL ORAL SOLUTION 1 MCG/ML GT SCH (08:21)
[2016-06-28] MEDS: [UNRECOGNIZED DRUG - OTHER] SQ SCH ×2 (08:22→21:25)
[2016-06-28] MEDS: INSULIN GLARGINE SQ SCH ×2 (08:22→21:25)
[2016-06-28 08:34] VITALS: BP 133/74
[2016-06-28] MEDS: HYDROCODONE/APAP 5/325MG 1 EACH TABLET GT SCH ×2 (09:00→23:30)
[2016-06-28] MEDS: HYDROGEL DRESSING 90 GM TUBE TP SCH ×2 (09:00→23:30)
[2016-06-28] MEDS: ZINC OXIDE 30 GM TUBE TP SCH ×4 (09:00→23:30)
[2016-06-28] MEDS: CADEXOMER IODINE 40 GM TUBE TP SCH ×4 (09:00→23:30)
[2016-06-28] MEDS: NYSTATIN TOP POWDER 15 GM BOTTLE TP SCH ×6 (09:00→23:30)
[2016-06-28] MEDS: DAKINS HALF STRENGTH (0.25%) 480 ML BOTTLE TOP SCH ×2 (09:00→23:30)
[2016-06-28] MEDS: HYDROGEN PEROXIDE 480 ML BOTTLE TP SCH ×2 (09:00→23:30)
[2016-06-28 14:00] VITALS: BP 113/74
[2016-06-28 18:30] VITALS: BP 123/77
[2016-06-28 20:12] VITALS: BP 136/82
[2016-06-28] MEDS: METOPROLOL TARTRATE 50 MG TABLET GT SCH (22:00)
[2016-06-29 00:12] VITALS: BP 136/57
[2016-06-29] MEDS: ALBUTEROL FS 2.5 MG/3 ML VIAL.NEB NEB SCH ×4 (01:26→19:40)
[2016-06-29] MEDS: IPRATROPIUM NEB FS 0.5 MG/2.5 ML AMPUL.NEB NEB SCH ×4 (01:26→19:39)
[2016-06-29] MEDS: RENAL NOVASOURCE 1,000 ML BOTTLE GT PRN (03:41)
[2016-06-29] MEDS: BLOOD SUGAR DIAGNOSTIC 1 EACH STRIP IN SCH ×4 (05:43→23:47)
[2016-06-29] MEDS: ESOMEPRAZOLE MAG TRIHYDRATE 20 MG CAPSULE.DR GT SCH (05:43)
[2016-06-29] MEDS: POLYVINYL ALCOHOL 15 ML BOTTLE EACHEYE SCH ×4 (05:43→23:46)
[2016-06-29] MEDS: INSULIN REGULAR, HUMAN 100 UNIT/ML 3 ML VIAL SQ PRN ×4 (05:44→23:50)
[2016-06-29 06:34] VITALS: BP 143/72
[2016-06-29 07:49] VITALS: BP 131/75
[2016-06-29] MEDS: hydrALAZINE HCL 50 MG TABLET GT SCH ×2 (08:18→17:10)
[2016-06-29] MEDS: VIT B CMPLX 3/FA/VIT C/BIOTIN 1 TAB TABLET GT SCH (08:19)
[2016-06-29] MEDS: LACTOBACILLUS RHAMNOSUS GG 1 EACH CAP.SPRINK GT SCH ×2 (08:19→17:10)
[2016-06-29] MEDS: HYDROCODONE/APAP 5/325MG 1 EACH TABLET GT SCH ×2 (08:19→20:34)
[2016-06-29] MEDS: CALCITRIOL ORAL SOLUTION 1 MCG/ML GT SCH (08:19)
[2016-06-29] MEDS: METOPROLOL TARTRATE 50 MG TABLET GT SCH ×2 (08:19→21:14)
[2016-06-29] MEDS: PROSTAT (PYXIS) 30 ML UDC GT SCH ×3 (08:20→17:10)
[2016-06-29] MEDS: ASCORBIC ACID 500 MG TABLET GT SCH (08:20)
[2016-06-29] MEDS: LISINOPRIL (20MG) 20 MG TABLET PO SCH (08:20)
[2016-06-29] MEDS: HEPARIN SODIUM, PORCINE 5000 UNITS/1 ML VIAL SQ SCH ×2 (08:22→20:36)
[2016-06-29] MEDS: [UNRECOGNIZED DRUG - OTHER] SQ SCH ×2 (08:24→20:38)
[2016-06-29] MEDS: INSULIN GLARGINE SQ SCH ×2 (08:24→20:38)
[2016-06-29] MEDS: CADEXOMER IODINE 40 GM TUBE TP SCH ×4 (09:00→20:38)
[2016-06-29] MEDS: HYDROGEL DRESSING 90 GM TUBE TP SCH ×2 (09:00→20:38)
[2016-06-29] MEDS: DAKINS HALF STRENGTH (0.25%) 480 ML BOTTLE TOP SCH ×2 (09:00→20:38)
[2016-06-29] MEDS: HYDROGEN PEROXIDE 480 ML BOTTLE TP SCH ×2 (09:00→20:38)
[2016-06-29] MEDS: ZINC OXIDE 30 GM TUBE TP SCH ×4 (09:00→20:39)
[2016-06-29] MEDS: NYSTATIN TOP POWDER 15 GM BOTTLE TP SCH ×6 (09:00→20:39)
[2016-06-29 14:48] VITALS: BP 131/75
[2016-06-29 18:26] VITALS: BP 150/80
[2016-06-29 20:01] VITALS: BP 168/80
[2016-06-30 00:36] VITALS: BP 145/76
[2016-06-30] MEDS: ALBUTEROL FS 2.5 MG/3 ML VIAL.NEB NEB SCH ×4 (01:30→19:34)
[2016-06-30] MEDS: IPRATROPIUM NEB FS 0.5 MG/2.5 ML AMPUL.NEB NEB SCH ×4 (01:30→19:34)
[2016-06-30] MEDS: POLYVINYL ALCOHOL 15 ML BOTTLE EACHEYE SCH ×3 (05:19→18:07)
[2016-06-30] MEDS: ESOMEPRAZOLE MAG TRIHYDRATE 20 MG CAPSULE.DR GT SCH (05:19)
[2016-06-30] MEDS: BLOOD SUGAR DIAGNOSTIC 1 EACH STRIP IN SCH ×3 (05:19→18:07)
[2016-06-30] MEDS: INSULIN REGULAR, HUMAN 100 UNIT/ML 3 ML VIAL SQ PRN ×3 (05:20→18:09)
[2016-06-30 06:06] VITALS: BP 159/80
[2016-06-30 07:53] VITALS: BP 162/78
[2016-06-30] MEDS: ZINC OXIDE 30 GM TUBE TP SCH ×4 (09:30→21:01)
[2016-06-30] MEDS: HYDROGEL DRESSING 90 GM TUBE TP SCH ×2 (09:30→21:00)
[2016-06-30] MEDS: NYSTATIN TOP POWDER 15 GM BOTTLE TP SCH ×6 (09:30→21:01)
[2016-06-30] MEDS: DAKINS HALF STRENGTH (0.25%) 480 ML BOTTLE TOP SCH ×2 (09:30→21:00)
[2016-06-30] MEDS: CADEXOMER IODINE 40 GM TUBE TP SCH ×4 (09:30→21:00)
[2016-06-30] MEDS: HYDROGEN PEROXIDE 480 ML BOTTLE TP SCH ×2 (09:30→21:00)
[2016-06-30] MEDS: LACTOBACILLUS RHAMNOSUS GG 1 EACH CAP.SPRINK GT SCH ×2 (09:41→17:35)
[2016-06-30] MEDS: CALCITRIOL ORAL SOLUTION 1 MCG/ML GT SCH (09:41)
[2016-06-30] MEDS: VIT B CMPLX 3/FA/VIT C/BIOTIN 1 TAB TABLET GT SCH (09:41)
[2016-06-30] MEDS: hydrALAZINE HCL 50 MG TABLET GT SCH ×2 (09:41→17:35)
[2016-06-30] MEDS: METOPROLOL TARTRATE 50 MG TABLET GT SCH ×2 (09:41→21:01)
[2016-06-30] MEDS: PROSTAT (PYXIS) 30 ML UDC GT SCH ×3 (09:43→17:35)
[2016-06-30] MEDS: ASCORBIC ACID 500 MG TABLET GT SCH (09:43)
[2016-06-30] MEDS: HYDROCODONE/APAP 5/325MG 1 EACH TABLET GT SCH ×2 (09:43→20:55)
[2016-06-30] MEDS: LISINOPRIL (20MG) 20 MG TABLET PO SCH (09:43)
[2016-06-30] MEDS: HEPARIN SODIUM, PORCINE 5000 UNITS/1 ML VIAL SQ SCH ×2 (09:44→20:57)
[2016-06-30] MEDS: INSULIN GLARGINE SQ SCH ×2 (09:45→21:00)
[2016-06-30] MEDS: [UNRECOGNIZED DRUG - OTHER] SQ SCH ×2 (09:45→21:00)
[2016-06-30 18:16] VITALS: BP 135/70
[2016-06-30 20:01] VITALS: BP 151/77
[2016-07-01] MEDS: BLOOD SUGAR DIAGNOSTIC 1 EACH STRIP IN SCH ×5 (00:13→23:35)
[2016-07-01] MEDS: POLYVINYL ALCOHOL 15 ML BOTTLE EACHEYE SCH ×5 (00:13→23:35)
[2016-07-01] MEDS: INSULIN REGULAR, HUMAN 100 UNIT/ML 3 ML VIAL SQ PRN ×4 (00:16→23:37)
[2016-07-01 00:26] VITALS: BP 144/73
[2016-07-01] MEDS: ALBUTEROL FS 2.5 MG/3 ML VIAL.NEB NEB SCH ×4 (01:26→20:19)
[2016-07-01] MEDS: IPRATROPIUM NEB FS 0.5 MG/2.5 ML AMPUL.NEB NEB SCH ×4 (01:26→20:19)
[2016-07-01] MEDS: ESOMEPRAZOLE MAG TRIHYDRATE 20 MG CAPSULE.DR GT SCH (05:16)
[2016-07-01 06:21] VITALS: BP 141/82
[2016-07-01 07:58] VITALS: BP 140/76
[2016-07-01] MEDS: INSULIN GLARGINE SQ SCH ×2 (09:28→20:29)
[2016-07-01] MEDS: [UNRECOGNIZED DRUG - OTHER] SQ SCH ×2 (09:28→20:29)
[2016-07-01] MEDS: VIT B CMPLX 3/FA/VIT C/BIOTIN 1 TAB TABLET GT SCH (09:32)
[2016-07-01] MEDS: LACTOBACILLUS RHAMNOSUS GG 1 EACH CAP.SPRINK GT SCH ×2 (09:32→17:33)
[2016-07-01] MEDS: hydrALAZINE HCL 50 MG TABLET GT SCH ×2 (09:32→16:28)
[2016-07-01] MEDS: CALCITRIOL ORAL SOLUTION 1 MCG/ML GT SCH (09:32)
[2016-07-01] MEDS: HYDROCODONE/APAP 5/325MG 1 EACH TABLET GT SCH ×2 (09:33→20:27)
[2016-07-01] MEDS: DAKINS HALF STRENGTH (0.25%) 480 ML BOTTLE TOP SCH ×2 (09:33→20:30)
[2016-07-01] MEDS: ASCORBIC ACID 500 MG TABLET GT SCH (09:33)
[2016-07-01] MEDS: HYDROGEL DRESSING 90 GM TUBE TP SCH ×2 (09:33→20:32)
[2016-07-01] MEDS: HEPARIN SODIUM, PORCINE 5000 UNITS/1 ML VIAL SQ SCH ×2 (09:33→20:29)
[2016-07-01] MEDS: PROSTAT (PYXIS) 30 ML UDC GT SCH ×3 (09:33→17:33)
[2016-07-01] MEDS: ZINC OXIDE 30 GM TUBE TP SCH ×4 (09:34→20:32)
[2016-07-01] MEDS: NYSTATIN TOP POWDER 15 GM BOTTLE TP SCH ×6 (09:34→20:32)
[2016-07-01] MEDS: HYDROGEN PEROXIDE 480 ML BOTTLE TP SCH ×2 (09:34→20:32)
[2016-07-01] MEDS: CADEXOMER IODINE 40 GM TUBE TP SCH ×4 (09:34→20:32)
--- NOTE | 2016-07-01 10:09 | NUR ---
Seen by Dr Morejon with no new order.
--- NOTE | 2016-07-01 12:00 | NUR ---
RN SUB ACUTE PTS 12 PM MEDS NOT GIVEN SINCE PT IS STILL AT DIALYSIS CENTER.
--- NOTE | 2016-07-01 12:47 | NUR ---
RN SUB ACUTE PT LEFT FOR DIALISIS WITH PARAMEDICS Addendum: 07/01/16 at 1248 by MATTHEW GARAY RN LEFT AT 9:30
--- NOTE | 2016-07-01 14:11 | NUR ---
RN SUB ACUTE PRE DIALYSIS WEIGHT 77.5, POST DIALYSIS WEIGHT 76.8, OVERALL 0.7 FLUID REMOVED FROM DIALYSIS.
--- NOTE | 2016-07-01 16:30 | NUR ---
NED SUB ACUTE PTS ARENESP ELBA AT DIALYSIS CENTER TODAY 07/01/16.
[2016-07-01] MEDS: [UNRECOGNIZED DRUG - OTHER] IV SCH (17:43)
[2016-07-01 18:00] VITALS: BP 115/54
[2016-07-01 20:53] VITALS: BP 102/65
[2016-07-01] MEDS: METOPROLOL TARTRATE 50 MG TABLET GT SCH (21:15)
[2016-07-02 00:07] VITALS: BP 110/68
[2016-07-02] MEDS: IPRATROPIUM NEB FS 0.5 MG/2.5 ML AMPUL.NEB NEB SCH ×4 (01:09→20:08)
[2016-07-02] MEDS: ALBUTEROL FS 2.5 MG/3 ML VIAL.NEB NEB SCH ×4 (01:10→20:08)
[2016-07-02] MEDS: POLYVINYL ALCOHOL 15 ML BOTTLE EACHEYE SCH ×3 (05:19→17:21)
[2016-07-02] MEDS: BLOOD SUGAR DIAGNOSTIC 1 EACH STRIP IN SCH ×3 (05:20→17:21)
[2016-07-02] MEDS: ESOMEPRAZOLE MAG TRIHYDRATE 20 MG CAPSULE.DR GT SCH (05:20)
[2016-07-02] MEDS: INSULIN REGULAR, HUMAN 100 UNIT/ML 3 ML VIAL SQ PRN ×3 (05:21→17:22)
[2016-07-02 06:07] VITALS: BP 133/71
[2016-07-02 07:57] VITALS: BP 146/73
[2016-07-02] MEDS: hydrALAZINE HCL 50 MG TABLET GT SCH ×2 (08:38→17:21)
[2016-07-02] MEDS: LACTOBACILLUS RHAMNOSUS GG 1 EACH CAP.SPRINK GT SCH ×2 (08:41→17:21)
[2016-07-02] MEDS: ASCORBIC ACID 500 MG TABLET GT SCH (08:41)
[2016-07-02] MEDS: CALCITRIOL ORAL SOLUTION 1 MCG/ML GT SCH (08:41)
[2016-07-02] MEDS: HYDROCODONE/APAP 5/325MG 1 EACH TABLET GT SCH ×2 (08:41→23:00)
[2016-07-02] MEDS: ERGOCALCIFEROL (VITAMIN D2) 8,000 UNIT/ML GT SCH (08:41)
[2016-07-02] MEDS: PROSTAT (PYXIS) 30 ML UDC GT SCH ×3 (08:41→17:21)
[2016-07-02] MEDS: METOPROLOL TARTRATE 50 MG TABLET GT SCH ×2 (08:41→22:00)
[2016-07-02] MEDS: VIT B CMPLX 3/FA/VIT C/BIOTIN 1 TAB TABLET GT SCH (08:41)
[2016-07-02] MEDS: LISINOPRIL (20MG) 20 MG TABLET PO SCH (08:43)
[2016-07-02] MEDS: [UNRECOGNIZED DRUG - OTHER] SQ SCH ×2 (08:51→21:43)
[2016-07-02] MEDS: HEPARIN SODIUM, PORCINE 5000 UNITS/1 ML VIAL SQ SCH ×2 (08:51→21:42)
[2016-07-02] MEDS: INSULIN GLARGINE SQ SCH ×2 (08:51→21:43)
[2016-07-02] MEDS: ZINC OXIDE 30 GM TUBE TP SCH ×4 (09:00→23:00)
[2016-07-02] MEDS: HYDROGEL DRESSING 90 GM TUBE TP SCH ×2 (09:00→23:00)
[2016-07-02] MEDS: HYDROGEN PEROXIDE 480 ML BOTTLE TP SCH ×2 (09:00→23:00)
[2016-07-02] MEDS: DAKINS HALF STRENGTH (0.25%) 480 ML BOTTLE TOP SCH ×2 (09:00→23:00)
[2016-07-02] MEDS: NYSTATIN TOP POWDER 15 GM BOTTLE TP SCH ×6 (09:00→23:00)
[2016-07-02] MEDS: CADEXOMER IODINE 40 GM TUBE TP SCH ×3 (09:00→23:00)
--- NOTE | 2016-07-02 09:21 | NUR ---
Seen and examined by Dr Terrie Olivo, rn resource nurse no new order given.
[2016-07-02 14:40] VITALS: BP 143/73
[2016-07-02] MEDS: RENAL NOVASOURCE 1,000 ML BOTTLE GT PRN (17:35)
[2016-07-02 18:29] VITALS: BP 137/56
[2016-07-02 20:11] VITALS: BP 110/57
[2016-07-03 00:30] VITALS: BP 147/75
[2016-07-03] MEDS: POLYVINYL ALCOHOL 15 ML BOTTLE EACHEYE SCH ×5 (00:34→23:40)
[2016-07-03] MEDS: BLOOD SUGAR DIAGNOSTIC 1 EACH STRIP IN SCH ×5 (00:34→23:40)
[2016-07-03] MEDS: INSULIN REGULAR, HUMAN 100 UNIT/ML 3 ML VIAL SQ PRN ×4 (00:35→23:41)
[2016-07-03] MEDS: RENAL NOVASOURCE 1,000 ML BOTTLE GT PRN (00:35)
[2016-07-03] MEDS: IPRATROPIUM NEB FS 0.5 MG/2.5 ML AMPUL.NEB NEB SCH ×4 (02:12→20:15)
[2016-07-03] MEDS: ALBUTEROL FS 2.5 MG/3 ML VIAL.NEB NEB SCH ×4 (02:12→20:15)
[2016-07-03] MEDS: ESOMEPRAZOLE MAG TRIHYDRATE 20 MG CAPSULE.DR GT SCH (06:20)
[2016-07-03 06:21] VITALS: BP 130/70
[2016-07-03 07:57] VITALS: BP 146/66
[2016-07-03] MEDS: hydrALAZINE HCL 50 MG TABLET GT SCH ×2 (08:06→17:38)
[2016-07-03] MEDS: PROSTAT (PYXIS) 30 ML UDC GT SCH ×3 (08:07→17:38)
[2016-07-03] MEDS: VIT B CMPLX 3/FA/VIT C/BIOTIN 1 TAB TABLET GT SCH (08:07)
[2016-07-03] MEDS: HYDROCODONE/APAP 5/325MG 1 EACH TABLET GT SCH ×2 (08:07→23:20)
[2016-07-03] MEDS: ASCORBIC ACID 500 MG TABLET GT SCH (08:07)
[2016-07-03] MEDS: LACTOBACILLUS RHAMNOSUS GG 1 EACH CAP.SPRINK GT SCH ×2 (08:07→17:38)
[2016-07-03] MEDS: CALCITRIOL ORAL SOLUTION 1 MCG/ML GT SCH (08:07)
[2016-07-03] MEDS: HEPARIN SODIUM, PORCINE 5000 UNITS/1 ML VIAL SQ SCH ×2 (08:08→21:29)
[2016-07-03] MEDS: [UNRECOGNIZED DRUG - OTHER] SQ SCH ×2 (08:09→21:30)
[2016-07-03] MEDS: INSULIN GLARGINE SQ SCH ×2 (08:09→21:30)
[2016-07-03] MEDS: HYDROGEN PEROXIDE 480 ML BOTTLE TP SCH ×2 (09:00→23:20)
[2016-07-03] MEDS: NYSTATIN TOP POWDER 15 GM BOTTLE TP SCH ×6 (09:00→23:20)
[2016-07-03] MEDS: DAKINS HALF STRENGTH (0.25%) 480 ML BOTTLE TOP SCH ×2 (09:00→23:20)
[2016-07-03] MEDS: HYDROGEL DRESSING 90 GM TUBE TP SCH ×2 (09:00→23:20)
[2016-07-03] MEDS: CADEXOMER IODINE 40 GM TUBE TP SCH ×2 (09:00→23:20)
[2016-07-03] MEDS: ZINC OXIDE 30 GM TUBE TP SCH ×4 (09:00→23:20)
--- NOTE | 2016-07-03 13:30 | NUR ---
Seen by Hellen Leija NP with no new order.
[2016-07-03 18:02] VITALS: BP 115/71
[2016-07-03 20:25] VITALS: BP 104/56
[2016-07-03] MEDS: METOPROLOL TARTRATE 50 MG TABLET GT SCH (22:00)
[2016-07-04 00:26] VITALS: BP 143/74
[2016-07-04] MEDS: IPRATROPIUM NEB FS 0.5 MG/2.5 ML AMPUL.NEB NEB SCH ×4 (01:23→20:02)
[2016-07-04] MEDS: ALBUTEROL FS 2.5 MG/3 ML VIAL.NEB NEB SCH ×4 (01:23→20:02)
[2016-07-04] MEDS: BLOOD SUGAR DIAGNOSTIC 1 EACH STRIP IN SCH ×4 (05:29→23:51)
[2016-07-04] MEDS: ESOMEPRAZOLE MAG TRIHYDRATE 20 MG CAPSULE.DR GT SCH (05:29)
[2016-07-04] MEDS: POLYVINYL ALCOHOL 15 ML BOTTLE EACHEYE SCH ×4 (05:29→23:51)
[2016-07-04] MEDS: INSULIN REGULAR, HUMAN 100 UNIT/ML 3 ML VIAL SQ PRN ×4 (05:30→23:52)
[2016-07-04 06:38] VITALS: BP 141/66
[2016-07-04] MEDS: RENAL NOVASOURCE 1,000 ML BOTTLE GT PRN (06:57)
[2016-07-04 07:46] VITALS: BP 124/65
[2016-07-04] MEDS: LACTOBACILLUS RHAMNOSUS GG 1 EACH CAP.SPRINK GT SCH ×2 (08:26→17:47)
[2016-07-04] MEDS: CALCITRIOL ORAL SOLUTION 1 MCG/ML GT SCH (08:26)
[2016-07-04] MEDS: hydrALAZINE HCL 50 MG TABLET GT SCH ×3 (08:26→17:47)
[2016-07-04] MEDS: VIT B CMPLX 3/FA/VIT C/BIOTIN 1 TAB TABLET GT SCH (08:27)
[2016-07-04] MEDS: ASCORBIC ACID 500 MG TABLET GT SCH (08:27)
[2016-07-04] MEDS: PROSTAT (PYXIS) 30 ML UDC GT SCH ×3 (08:27→17:47)
[2016-07-04] MEDS: METOPROLOL TARTRATE 50 MG TABLET GT SCH ×2 (08:27→22:00)
[2016-07-04] MEDS: LISINOPRIL (20MG) 20 MG TABLET PO SCH (08:27)
[2016-07-04] MEDS: HYDROCODONE/APAP 5/325MG 1 EACH TABLET GT SCH ×2 (08:27→22:00)
[2016-07-04] MEDS: INSULIN GLARGINE SQ SCH ×2 (08:31→21:47)
[2016-07-04] MEDS: [UNRECOGNIZED DRUG - OTHER] SQ SCH ×2 (08:31→21:47)
[2016-07-04] MEDS: HEPARIN SODIUM, PORCINE 5000 UNITS/1 ML VIAL SQ SCH ×2 (08:31→21:47)
[2016-07-04] MEDS: NYSTATIN TOP POWDER 15 GM BOTTLE TP SCH ×6 (09:00→22:00)
[2016-07-04] MEDS: HYDROGEN PEROXIDE 480 ML BOTTLE TP SCH ×2 (09:00→22:00)
[2016-07-04] MEDS: HYDROGEL DRESSING 90 GM TUBE TP SCH ×2 (09:00→22:00)
[2016-07-04] MEDS: DAKINS HALF STRENGTH (0.25%) 480 ML BOTTLE TOP SCH ×2 (09:00→22:00)
[2016-07-04] MEDS: ZINC OXIDE 30 GM TUBE TP SCH ×4 (09:00→22:00)
[2016-07-04] MEDS: CADEXOMER IODINE 40 GM TUBE TP SCH ×2 (10:00→22:00)
[2016-07-04 13:27] VITALS: BP 142/74
[2016-07-04 18:25] VITALS: BP 125/65
[2016-07-04 19:57] VITALS: BP 119/52
[2016-07-05 00:30] VITALS: BP 145/72
[2016-07-05] MEDS: ALBUTEROL FS 2.5 MG/3 ML VIAL.NEB NEB SCH ×5 (02:20→19:25)
[2016-07-05] MEDS: IPRATROPIUM NEB FS 0.5 MG/2.5 ML AMPUL.NEB NEB SCH ×4 (02:20→19:25)
[2016-07-05] MEDS: RENAL NOVASOURCE 1,000 ML BOTTLE GT PRN (04:03)
[2016-07-05] MEDS: POLYVINYL ALCOHOL 15 ML BOTTLE EACHEYE SCH ×3 (05:44→18:27)
[2016-07-05] MEDS: BLOOD SUGAR DIAGNOSTIC 1 EACH STRIP IN SCH ×3 (05:44→18:27)
[2016-07-05] MEDS: ESOMEPRAZOLE MAG TRIHYDRATE 20 MG CAPSULE.DR GT SCH (05:44)
[2016-07-05] MEDS: INSULIN REGULAR, HUMAN 100 UNIT/ML 3 ML VIAL SQ PRN ×2 (05:46→18:28)
[2016-07-05] MEDS: HYDROCODONE/APAP 5/325MG 1 EACH TABLET GT PRN (06:14)
[2016-07-05] MEDS: CLONIDINE HCL 0.2 MG TABLET GT PRN (06:15)
[2016-07-05 06:18] VITALS: BP 177/100
[2016-07-05] MEDS: hydrALAZINE HCL 50 MG TABLET GT SCH ×2 (08:14→17:00)
[2016-07-05] MEDS: VIT B CMPLX 3/FA/VIT C/BIOTIN 1 TAB TABLET GT SCH (08:15)
[2016-07-05] MEDS: PROSTAT (PYXIS) 30 ML UDC GT SCH ×3 (08:15→17:00)
[2016-07-05] MEDS: LACTOBACILLUS RHAMNOSUS GG 1 EACH CAP.SPRINK GT SCH ×2 (08:15→17:00)
[2016-07-05] MEDS: INSULIN GLARGINE SQ SCH ×2 (08:15→21:30)
[2016-07-05] MEDS: [UNRECOGNIZED DRUG - OTHER] SQ SCH ×2 (08:15→21:30)
[2016-07-05] MEDS: CALCITRIOL ORAL SOLUTION 1 MCG/ML GT SCH (08:15)
[2016-07-05] MEDS: ASCORBIC ACID 500 MG TABLET GT SCH (08:15)
[2016-07-05] MEDS: HEPARIN SODIUM, PORCINE 5000 UNITS/1 ML VIAL SQ SCH ×2 (08:15→21:29)
--- NOTE | 2016-07-05 08:54 | NUR ---
Notified Dr. Castro of elevated temperature 102.5, B/P 114/73, HR 119, 98%, RR12. New order given to do 2 sets of BC, CXR and CBC. All orders noted and carried out. According to Dr. Castro, she is OK for her to go to dialysis. Family c/o John notified of the change of condition
[2016-07-05] MEDS: HYDROGEN PEROXIDE 480 ML BOTTLE TP SCH ×2 (09:00→21:30)
[2016-07-05] MEDS: HYDROGEL DRESSING 90 GM TUBE TP SCH ×2 (09:00→21:30)
[2016-07-05] MEDS: NYSTATIN TOP POWDER 15 GM BOTTLE TP SCH ×6 (09:00→21:30)
[2016-07-05] MEDS: CADEXOMER IODINE 40 GM TUBE TP SCH ×2 (09:00→21:30)
[2016-07-05] MEDS: ZINC OXIDE 30 GM TUBE TP SCH ×4 (09:00→21:30)
[2016-07-05] MEDS: DAKINS HALF STRENGTH (0.25%) 480 ML BOTTLE TOP SCH ×2 (09:00→21:30)
[2016-07-05] MEDS: ACETAMINOPHEN 650 MG/20 ML UDC- FOR SA PATIENTS ONLY GT PRN (09:18)
[2016-07-05 09:27] LABS: EOSINOPHILS # (AUTO) 0.1 /CMM (0.0-0.7); EOSINOPHILS % (AUTO) 0.3 % (0.0-6.0); HEMATOCRIT 36 % (33-45); HEMOGLOBIN 11.6 g/dL (11.5-14.8); LYMPHOCYTES # (AUTO) 0.5 /CMM (0.8-4.8); LYMPHOCYTES % (AUTO) 1.9 % (20.0-44.0); MEAN CORPUSCULAR HEMOGLOBIN 31 PG (26.0-33.0); MEAN CORPUSCULAR HGB CONC 32 g/dl (31.0-36.0); MEAN CORPUSCULAR VOLUME 97 fL (82-100); MONOCYTES # (AUTO) 0.4 /CMM (0.1-1.30); MONOCYTES % (AUTO) 1.5 % (2.0-12.0); NEUTROPHILS # (AUTO) 26.4 /CMM (1.8-8.9); NEUTROPHILS % (AUTO) 96.3 % (43.0-81.0); PLATELET COUNT (AUTO) 182 /CMM (150-450); RDW COEFFICIENT OF VARIATION 18.6 (11.5-15.0); RED BLOOD CELL COUNT(AUTO) 3.71 MIL/uL (4.0-5.2); WHITE BLOOD COUNT (AUTO) 27.4 K/uL (4.3-11.0)
[2016-07-05 09:50] VITALS: BP 137/77
[2016-07-05 10:02] LABS: BAND % (MANUAL) 5 % (0.0-5.0); LYMPHOCYTES % (MANUAL) 3 % (16-48); METAMYELOCYTES % 1 % (0-0); MONOCYTES % (MANUAL) 2 % (0-11.0); NEUTROPHILS % (MANUAL) 89 (42-76)
--- NOTE | 2016-07-05 10:10 | NUR ---
CXR and CBC result reported to Dr. Castro with WBC of 27.4. New order given to refer to RIGOBERTO Ramsay for ATB. Left a message to Sobia. Resident left for dialysis, report given to ambulance staff regarding patient's condition.
[2016-07-05] MEDS ORDERED: METRONIDAZOLE 500 MG TABLET GT SCH (13:00)
[2016-07-05 14:10] VITALS: BP 140/87
--- NOTE | 2016-07-05 14:25 | NUR ---
Pt returned from dialysis. BP 140/87, HR 116, RR 20, Temp 98.9. No SOB/ no distress noted. Pt kept comfortable in bed.
[2016-07-05] MEDS: HYDROCODONE/APAP 5/325MG 1 EACH TABLET GT SCH ×2 (14:26→21:00)
--- NOTE | 2016-07-05 14:26 | NUR ---
Spoke with Marvel from [facility] pharmacy and gave dosing for IV Zosyn and Vancomycin.
--- NOTE | 2016-07-05 15:20 | NUR ---
Received a call from [facility] stating that IV medication is not covered by patient's insurance and will need prior authorization. Informed [facility] to send request for authorization and in the meantime will request ATB from [facility] pharmacy. Notified [facility] pharmacy ([place]) and will send IV ATB for now pending approval from resident's insurance.
--- NOTE | 2016-07-05 16:28 | NUR ---
Received an order from RIGOBERTO Ramsay to start Vancomycin and Zosyn per pharmacy to dose, stool for C. Diff and to start Flagyl 500mg. via GT Q8 hours. Resident at dialysis at this time and will start ATB when patient comes back. Orders noted and carried out. Addendum: 07/05/16 at 2025 by VALENTINA BENTON RN PUSHPA lozano 07/05/16 Stephanie
--- NOTE | 2016-07-05 16:42 | NUR ---
IDT meeting held, reviewed medication, treatment and labs. NNO given at this time. Addendum: 07/05/16 at 1645 by VALENTINA BENTON RN PUSHPA lozano 07/04/16 [id number]
[2016-07-05] MEDS: METRONIDAZOLE 500 MG TABLET GT SCH ×2 (17:00→21:00)
[2016-07-05] MEDS: ZOSYN IVPB 3.375 G in IV D5W 50ml IV SCH (17:50)
[2016-07-05 18:40] VITALS: BP 156/82
[2016-07-05] MEDS: VANCOMYCIN HCL 0.75 GM in IV D5W 250 ML IV SCH (19:29)
[2016-07-05] MEDS: METOPROLOL TARTRATE 50 MG TABLET GT SCH (22:25)
[2016-07-06] VITALS: BP 159/86
[2016-07-06] MEDS: POLYVINYL ALCOHOL 15 ML BOTTLE EACHEYE SCH ×5 (00:43→23:48)
[2016-07-06] MEDS: CLONIDINE HCL 0.2 MG TABLET GT PRN ×4 (00:43→13:10)
[2016-07-06] MEDS: BLOOD SUGAR DIAGNOSTIC 1 EACH STRIP IN SCH ×5 (00:43→23:48)
[2016-07-06] MEDS: INSULIN REGULAR, HUMAN 100 UNIT/ML 3 ML VIAL SQ PRN ×5 (00:46→23:49)
[2016-07-06] MEDS: ALBUTEROL FS 2.5 MG/3 ML VIAL.NEB NEB SCH ×4 (01:14→19:52)
[2016-07-06] MEDS: IPRATROPIUM NEB FS 0.5 MG/2.5 ML AMPUL.NEB NEB SCH ×4 (01:14→19:52)
[2016-07-06] MEDS: ESOMEPRAZOLE MAG TRIHYDRATE 20 MG CAPSULE.DR GT SCH (05:50)
[2016-07-06] MEDS: METRONIDAZOLE 500 MG TABLET GT SCH ×2 (05:50→13:11)
[2016-07-06 06:00] VITALS: BP 102/51
[2016-07-06 08:55] VITALS: BP 98/54
[2016-07-06] MEDS: hydrALAZINE HCL 50 MG TABLET GT SCH ×2 (08:59→16:31)
[2016-07-06] MEDS: CALCITRIOL ORAL SOLUTION 1 MCG/ML GT SCH (09:00)
[2016-07-06] MEDS: METOPROLOL TARTRATE 50 MG TABLET GT SCH ×2 (09:00→21:11)
[2016-07-06] MEDS: LISINOPRIL (20MG) 20 MG TABLET PO SCH (09:00)
[2016-07-06] MEDS: HYDROCODONE/APAP 5/325MG 1 EACH TABLET GT SCH ×2 (09:00→20:41)
[2016-07-06] MEDS: ASCORBIC ACID 500 MG TABLET GT SCH (09:00)
[2016-07-06] MEDS: PROSTAT (PYXIS) 30 ML UDC GT SCH ×3 (09:00→16:32)
[2016-07-06] MEDS: VIT B CMPLX 3/FA/VIT C/BIOTIN 1 TAB TABLET GT SCH (09:00)
[2016-07-06] MEDS: LACTOBACILLUS RHAMNOSUS GG 1 EACH CAP.SPRINK GT SCH ×2 (09:00→16:32)
[2016-07-06] MEDS: HEPARIN SODIUM, PORCINE 5000 UNITS/1 ML VIAL SQ SCH ×2 (09:01→20:42)
[2016-07-06] MEDS: HYDROGEN PEROXIDE 480 ML BOTTLE TP SCH ×2 (09:02→20:43)
[2016-07-06] MEDS: HYDROGEL DRESSING 90 GM TUBE TP SCH ×2 (09:02→20:43)
[2016-07-06] MEDS: DAKINS HALF STRENGTH (0.25%) 480 ML BOTTLE TOP SCH ×2 (09:02→20:42)
[2016-07-06] MEDS: ZINC OXIDE 30 GM TUBE TP SCH ×4 (09:03→20:44)
[2016-07-06] MEDS: CADEXOMER IODINE 40 GM TUBE TP SCH ×2 (09:03→20:43)
[2016-07-06] MEDS: NYSTATIN TOP POWDER 15 GM BOTTLE TP SCH ×6 (09:03→20:43)
[2016-07-06] MEDS: [UNRECOGNIZED DRUG - OTHER] SQ SCH ×2 (09:09→20:42)
[2016-07-06] MEDS: INSULIN GLARGINE SQ SCH ×2 (09:09→20:42)
[2016-07-06] MEDS: RENAL NOVASOURCE 1,000 ML BOTTLE GT PRN (10:20)
[2016-07-06 12:00] VITALS: BP 111/66
--- NOTE | 2016-07-06 17:26 | NUR ---
Notified THOMAS Ramsay, ID of negative result for C Diff , new order given to d/c Flagyl. Orders noted and carried out.
[2016-07-06] MEDS: ZOSYN IVPB 3.375 G in IV D5W 50ml IV SCH (18:00)
[2016-07-06 18:08] VITALS: BP 106/72
[2016-07-06 20:06] VITALS: BP 120/77
[2016-07-07 00:02] VITALS: BP 115/70
[2016-07-07] MEDS: ALBUTEROL FS 2.5 MG/3 ML VIAL.NEB NEB SCH ×4 (02:24→19:26)
[2016-07-07] MEDS: IPRATROPIUM NEB FS 0.5 MG/2.5 ML AMPUL.NEB NEB SCH ×4 (02:24→19:26)
[2016-07-07] MEDS: ESOMEPRAZOLE MAG TRIHYDRATE 20 MG CAPSULE.DR GT SCH (05:12)
[2016-07-07] MEDS: BLOOD SUGAR DIAGNOSTIC 1 EACH STRIP IN SCH ×4 (05:12→23:14)
[2016-07-07] MEDS: POLYVINYL ALCOHOL 15 ML BOTTLE EACHEYE SCH ×4 (05:12→23:14)
[2016-07-07] MEDS: INSULIN REGULAR, HUMAN 100 UNIT/ML 3 ML VIAL SQ PRN ×4 (05:13→23:14)
[2016-07-07 06:23] VITALS: BP 118/64
[2016-07-07 07:45] VITALS: BP 98/43
[2016-07-07] MEDS: hydrALAZINE HCL 50 MG TABLET GT SCH ×2 (08:37→17:21)
[2016-07-07] MEDS: CALCITRIOL ORAL SOLUTION 1 MCG/ML GT SCH (08:37)
[2016-07-07] MEDS: LACTOBACILLUS RHAMNOSUS GG 1 EACH CAP.SPRINK GT SCH ×2 (08:37→17:21)
[2016-07-07] MEDS: VIT B CMPLX 3/FA/VIT C/BIOTIN 1 TAB TABLET GT SCH (08:38)
[2016-07-07] MEDS: METOPROLOL TARTRATE 50 MG TABLET GT SCH ×2 (08:38→21:05)
[2016-07-07] MEDS: PROSTAT (PYXIS) 30 ML UDC GT SCH ×3 (08:39→17:21)
[2016-07-07] MEDS: ASCORBIC ACID 500 MG TABLET GT SCH (08:39)
[2016-07-07] MEDS: HYDROCODONE/APAP 5/325MG 1 EACH TABLET GT SCH ×2 (08:39→21:03)
[2016-07-07] MEDS: LISINOPRIL (20MG) 20 MG TABLET PO SCH (08:40)
[2016-07-07] MEDS: HEPARIN SODIUM, PORCINE 5000 UNITS/1 ML VIAL SQ SCH ×2 (08:42→21:04)
[2016-07-07] MEDS: INSULIN GLARGINE SQ SCH ×2 (08:55→21:04)
[2016-07-07] MEDS: [UNRECOGNIZED DRUG - OTHER] SQ SCH ×2 (08:55→21:04)
[2016-07-07] MEDS: NYSTATIN TOP POWDER 15 GM BOTTLE TP SCH ×6 (09:00→21:06)
[2016-07-07] MEDS: DAKINS HALF STRENGTH (0.25%) 480 ML BOTTLE TOP SCH ×2 (09:00→21:30)
[2016-07-07] MEDS: CADEXOMER IODINE 40 GM TUBE TP SCH ×2 (09:00→21:30)
[2016-07-07] MEDS: HYDROGEN PEROXIDE 480 ML BOTTLE TP SCH ×2 (09:00→21:04)
[2016-07-07] MEDS: ZINC OXIDE 30 GM TUBE TP SCH ×4 (09:00→21:05)
[2016-07-07] MEDS: HYDROGEL DRESSING 90 GM TUBE TP SCH ×2 (09:00→21:30)
[2016-07-07 14:51] VITALS: BP 119/72
[2016-07-07] MEDS: ZOSYN IVPB 3.375 G in IV D5W 50ml IV SCH (17:39)
[2016-07-07 18:57] VITALS: BP 124/70
[2016-07-07 19:55] VITALS: BP 106/54
[2016-07-08 00:43] VITALS: BP 109/50
[2016-07-08] MEDS: ALBUTEROL FS 2.5 MG/3 ML VIAL.NEB NEB SCH ×4 (01:24→19:30)
[2016-07-08] MEDS: IPRATROPIUM NEB FS 0.5 MG/2.5 ML AMPUL.NEB NEB SCH ×4 (01:25→19:30)
[2016-07-08] MEDS: POLYVINYL ALCOHOL 15 ML BOTTLE EACHEYE SCH ×4 (05:28→23:35)
[2016-07-08] MEDS: ESOMEPRAZOLE MAG TRIHYDRATE 20 MG CAPSULE.DR GT SCH (05:28)
[2016-07-08] MEDS: BLOOD SUGAR DIAGNOSTIC 1 EACH STRIP IN SCH ×4 (05:54→23:35)
[2016-07-08] MEDS: INSULIN REGULAR, HUMAN 100 UNIT/ML 3 ML VIAL SQ PRN ×3 (05:55→23:36)
[2016-07-08 06:09] VITALS: BP 117/61
[2016-07-08 07:28] LABS: BASOPHILS % (AUTO) 0.3 % (0.0-2.0); EOSINOPHILS # (AUTO) 0.1 /CMM (0.0-0.7); EOSINOPHILS % (AUTO) 1.2 % (0.0-6.0); HEMATOCRIT 31 % (33-45); HEMOGLOBIN 10.1 g/dL (11.5-14.8); LYMPHOCYTES # (AUTO) 0.9 /CMM (0.8-4.8); MEAN CORPUSCULAR HEMOGLOBIN 32 PG (26.0-33.0); MEAN CORPUSCULAR HGB CONC 33 g/dl (31.0-36.0); MEAN CORPUSCULAR VOLUME 97 fL (82-100); MONOCYTES # (AUTO) 0.5 /CMM (0.1-1.30); MONOCYTES % (AUTO) 5.5 % (2.0-12.0); PLATELET COUNT (AUTO) 150 /CMM (150-450); RDW COEFFICIENT OF VARIATION 18.9 (11.5-15.0); RED BLOOD CELL COUNT(AUTO) 3.19 MIL/uL (4.0-5.2); WHITE BLOOD COUNT (AUTO) 9.6 K/uL (4.3-11.0)
[2016-07-08 07:48] VITALS: BP 104/57
[2016-07-08] MEDS: HYDROGEN PEROXIDE 480 ML BOTTLE TP SCH ×2 (08:00→20:21)
[2016-07-08] MEDS: hydrALAZINE HCL 50 MG TABLET GT SCH ×2 (08:59→17:50)
[2016-07-08] MEDS: ASCORBIC ACID 500 MG TABLET GT SCH (09:14)
[2016-07-08] MEDS: HEPARIN SODIUM, PORCINE 5000 UNITS/1 ML VIAL SQ SCH ×2 (09:14→20:20)
[2016-07-08] MEDS: LACTOBACILLUS RHAMNOSUS GG 1 EACH CAP.SPRINK GT SCH ×2 (09:14→17:50)
[2016-07-08] MEDS: CALCITRIOL ORAL SOLUTION 1 MCG/ML GT SCH (09:14)
[2016-07-08] MEDS: PROSTAT (PYXIS) 30 ML UDC GT SCH ×3 (09:14→17:50)
[2016-07-08] MEDS: VIT B CMPLX 3/FA/VIT C/BIOTIN 1 TAB TABLET GT SCH (09:14)
[2016-07-08] MEDS: [UNRECOGNIZED DRUG - OTHER] SQ SCH ×2 (09:15→20:21)
[2016-07-08] MEDS: INSULIN GLARGINE SQ SCH ×2 (09:15→20:21)
[2016-07-08] MEDS: HYDROCODONE/APAP 5/325MG 1 EACH TABLET GT SCH ×2 (09:16→20:15)
--- NOTE | 2016-07-08 09:40 | NUR ---
Seen by Dr. Morejon. Relayed lab results to him. No new order.
--- NOTE | 2016-07-08 13:16 | NUR ---
Resident is at dialysis. V/S not done at 12:00 pm Addendum: 07/08/16 at 1317 by MAYRA AGUILAR LVN Amended: Links added.
[2016-07-08] MEDS: CADEXOMER IODINE 40 GM TUBE TP SCH ×2 (15:00→20:21)
[2016-07-08] MEDS: DAKINS HALF STRENGTH (0.25%) 480 ML BOTTLE TOP SCH ×2 (15:00→20:21)
[2016-07-08] MEDS: NYSTATIN TOP POWDER 15 GM BOTTLE TP SCH ×6 (15:00→20:22)
[2016-07-08] MEDS: HYDROGEL DRESSING 90 GM TUBE TP SCH ×2 (15:00→20:21)
[2016-07-08] MEDS: ZINC OXIDE 30 GM TUBE TP SCH ×4 (15:00→20:22)
[2016-07-08] MEDS: ZOSYN IVPB 3.375 G in IV D5W 50ml IV SCH (17:41)
[2016-07-08] MEDS: [UNRECOGNIZED DRUG - OTHER] IV SCH (18:00)
[2016-07-08 18:16] VITALS: BP 140/76
--- NOTE | 2016-07-08 18:34 | NUR ---
Aranesp given at Ren[facility]
[2016-07-08] MEDS: VANCOMYCIN HCL 0.75 GM in IV D5W 250 ML IV SCH (18:36)
[2016-07-08 19:45] VITALS: BP 131/71
--- NOTE | 2016-07-08 21:00 | NUR ---
RN NOTES Received order from Dr. Castro to continue Heparin 5,000 units SQ q12hrs for DVT prophylaxis and left posterior thigh blister: cleanse with NS, pat dry. Apply Triple ATB oint qshift x 7 days, noted and carried out.
[2016-07-08] MEDS: NEOMY SULF/BACITRAC ZN/POLY 15 GM TUBE TP SCH (21:10)
[2016-07-08] MEDS: METOPROLOL TARTRATE 50 MG TABLET GT SCH (21:10)
[2016-07-09 00:35] VITALS: BP 134/71
[2016-07-09] MEDS: ALBUTEROL FS 2.5 MG/3 ML VIAL.NEB NEB SCH ×4 (00:52→19:48)
[2016-07-09] MEDS: IPRATROPIUM NEB FS 0.5 MG/2.5 ML AMPUL.NEB NEB SCH ×5 (00:52→19:48)
[2016-07-09] MEDS: ESOMEPRAZOLE MAG TRIHYDRATE 20 MG CAPSULE.DR GT SCH (05:14)
[2016-07-09] MEDS: POLYVINYL ALCOHOL 15 ML BOTTLE EACHEYE SCH ×4 (05:14→23:33)
[2016-07-09] MEDS: BLOOD SUGAR DIAGNOSTIC 1 EACH STRIP IN SCH ×4 (05:14→23:33)
[2016-07-09] MEDS: INSULIN REGULAR, HUMAN 100 UNIT/ML 3 ML VIAL SQ PRN ×4 (05:16→23:34)
[2016-07-09 06:25] VITALS: BP 142/72
[2016-07-09 08:00] VITALS: BP 148/85
[2016-07-09] MEDS: HYDROGEL DRESSING 90 GM TUBE TP SCH ×2 (09:00→21:06)
[2016-07-09] MEDS: DAKINS HALF STRENGTH (0.25%) 480 ML BOTTLE TOP SCH ×2 (09:00→21:06)
[2016-07-09] MEDS: CADEXOMER IODINE 40 GM TUBE TP SCH ×2 (09:00→21:07)
[2016-07-09] MEDS: NYSTATIN TOP POWDER 15 GM BOTTLE TP SCH ×6 (09:00→21:07)
[2016-07-09] MEDS: HYDROGEN PEROXIDE 480 ML BOTTLE TP SCH ×2 (09:00→21:07)
[2016-07-09] MEDS: ZINC OXIDE 30 GM TUBE TP SCH ×4 (09:00→21:07)
[2016-07-09] MEDS: NEOMY SULF/BACITRAC ZN/POLY 15 GM TUBE TP SCH ×2 (09:00→21:07)
[2016-07-09] MEDS: CALCITRIOL ORAL SOLUTION 1 MCG/ML GT SCH (09:15)
[2016-07-09] MEDS: hydrALAZINE HCL 50 MG TABLET GT SCH ×2 (09:15→16:25)
[2016-07-09] MEDS: LACTOBACILLUS RHAMNOSUS GG 1 EACH CAP.SPRINK GT SCH ×2 (09:15→16:26)
[2016-07-09] MEDS: HYDROCODONE/APAP 5/325MG 1 EACH TABLET GT SCH ×2 (09:16→21:05)
[2016-07-09] MEDS: PROSTAT (PYXIS) 30 ML UDC GT SCH ×2 (09:16→12:12)
[2016-07-09] MEDS: METOPROLOL TARTRATE 50 MG TABLET GT SCH ×2 (09:16→21:08)
[2016-07-09] MEDS: ASCORBIC ACID 500 MG TABLET GT SCH (09:16)
[2016-07-09] MEDS: VIT B CMPLX 3/FA/VIT C/BIOTIN 1 TAB TABLET GT SCH (09:16)
[2016-07-09] MEDS: HEPARIN SODIUM, PORCINE 5000 UNITS/1 ML VIAL SQ SCH ×2 (09:17→21:06)
[2016-07-09] MEDS: ERGOCALCIFEROL (VITAMIN D2) 8,000 UNIT/ML GT SCH (09:17)
[2016-07-09] MEDS: LISINOPRIL (20MG) 20 MG TABLET PO SCH (09:17)
[2016-07-09] MEDS: INSULIN GLARGINE SQ SCH ×2 (09:19→21:06)
[2016-07-09] MEDS: [UNRECOGNIZED DRUG - OTHER] SQ SCH ×2 (09:19→21:06)
[2016-07-09 15:44] VITALS: BP 144/65
[2016-07-09] MEDS: PROSOURCE / PROSTAT (PYXIS) 30 ML UDC GT SCH (16:26)
[2016-07-09] MEDS: ZOSYN IVPB 3.375 G in IV D5W 50ml IV SCH (17:09)
--- NOTE | 2016-07-09 17:30 | NUR ---
Seen by Hellen Leija NP with no new order.
[2016-07-09 18:15] VITALS: BP 115/52
[2016-07-09 19:34] VITALS: BP 111/58
[2016-07-09] MEDS: CLONIDINE HCL 0.2 MG TABLET GT PRN (23:34)
[2016-07-10] VITALS (7 sets, daily range): BP systolic 118–157; BP diastolic 61–78
[2016-07-10] MEDS: RENAL NOVASOURCE 1,000 ML BOTTLE GT PRN (00:53)
[2016-07-10] MEDS: ALBUTEROL FS 2.5 MG/3 ML VIAL.NEB NEB SCH ×4 (00:59→19:17)
[2016-07-10] MEDS: IPRATROPIUM NEB FS 0.5 MG/2.5 ML AMPUL.NEB NEB SCH ×4 (00:59→19:17)
[2016-07-10] MEDS: ESOMEPRAZOLE MAG TRIHYDRATE 20 MG CAPSULE.DR GT SCH (05:25)
[2016-07-10] MEDS: BLOOD SUGAR DIAGNOSTIC 1 EACH STRIP IN SCH ×4 (05:25→23:23)
[2016-07-10] MEDS: POLYVINYL ALCOHOL 15 ML BOTTLE EACHEYE SCH ×4 (05:25→23:23)
[2016-07-10] MEDS: INSULIN REGULAR, HUMAN 100 UNIT/ML 3 ML VIAL SQ PRN ×3 (05:26→23:24)
[2016-07-10] MEDS: CLONIDINE HCL 0.2 MG TABLET GT PRN ×2 (05:40→23:28)
--- NOTE | 2016-07-10 08:02 | NUR ---
Patient was seen by filler blender Dr. Gabo Brown on 07/09/2016.
[2016-07-10] MEDS ORDERED: LIDOCAINE HCL/PF 1% 30 ML SDV ONE (08:22)
[2016-07-10] MEDS ORDERED: BACITRACIN 50000 UNITS/VIAL ONE (08:22)
[2016-07-10] MEDS ORDERED: BUPIVACAINE MPF 0.5% W/EPI INJ 30 ML VIAL ONE (08:22)
[2016-07-10] MEDS: CALCITRIOL ORAL SOLUTION 1 MCG/ML GT SCH (08:54)
[2016-07-10] MEDS: hydrALAZINE HCL 50 MG TABLET GT SCH ×2 (08:54→17:24)
[2016-07-10] MEDS: ASCORBIC ACID 500 MG TABLET GT SCH (08:55)
[2016-07-10] MEDS: PROSOURCE / PROSTAT (PYXIS) 30 ML UDC GT SCH ×3 (08:55→17:24)
[2016-07-10] MEDS: VIT B CMPLX 3/FA/VIT C/BIOTIN 1 TAB TABLET GT SCH (08:55)
[2016-07-10] MEDS: LACTOBACILLUS RHAMNOSUS GG 1 EACH CAP.SPRINK GT SCH ×2 (08:55→17:24)
[2016-07-10] MEDS: HEPARIN SODIUM, PORCINE 5000 UNITS/1 ML VIAL SQ SCH ×2 (08:56→20:47)
[2016-07-10] MEDS: INSULIN GLARGINE SQ SCH ×2 (08:56→20:48)
[2016-07-10] MEDS: [UNRECOGNIZED DRUG - OTHER] SQ SCH ×2 (08:56→20:48)
[2016-07-10] MEDS: NYSTATIN TOP POWDER 15 GM BOTTLE TP SCH ×6 (09:00→20:49)
[2016-07-10] MEDS: CADEXOMER IODINE 40 GM TUBE TP SCH ×2 (09:00→20:49)
[2016-07-10] MEDS: ZINC OXIDE 30 GM TUBE TP SCH ×4 (09:00→20:49)
[2016-07-10] MEDS: HYDROGEN PEROXIDE 480 ML BOTTLE TP SCH ×2 (09:00→20:48)
[2016-07-10] MEDS: HYDROCODONE/APAP 5/325MG 1 EACH TABLET GT SCH ×2 (09:00→21:10)
[2016-07-10] MEDS: HYDROGEL DRESSING 90 GM TUBE TP SCH ×2 (09:00→20:48)
[2016-07-10] MEDS: DAKINS HALF STRENGTH (0.25%) 480 ML BOTTLE TOP SCH ×2 (09:00→20:48)
[2016-07-10] MEDS: NEOMY SULF/BACITRAC ZN/POLY 15 GM TUBE TP SCH ×2 (09:00→20:49)
--- NOTE | 2016-07-10 14:05 | NUR ---
Received order to change Zosyn to 2.25 gm IV q 8 hours.
[2016-07-10 14:53] LABS: CREATININE 2.3 mg/dL (0.6-1.3)
[2016-07-10] MEDS: PIPERACILLIN /TAZOBACTAM 2.25 G in IV D5W 50 ML IV SCH ×2 (15:00→23:00)
--- NOTE | 2016-07-10 15:30 | NUR ---
order clarification for Nexium to mix with water instead of apple juice Dr Darleen flores noted and carried out.
[2016-07-10] MEDS: VANCOMYCIN HCL 0.75 GM in IV D5W 250 ML IV SCH (18:26)
--- NOTE | 2016-07-10 18:49 | NUR ---
Received order from [facility] pharmacist [place] to do Vancomycin trough on 07/12/16 at 1730.
[2016-07-10] MEDS: METOPROLOL TARTRATE 50 MG TABLET GT SCH (21:11)
[2016-07-11 00:30] VITALS: BP 149/75
[2016-07-11] MEDS: IPRATROPIUM NEB FS 0.5 MG/2.5 ML AMPUL.NEB NEB SCH ×4 (01:24→19:50)
[2016-07-11] MEDS: ALBUTEROL FS 2.5 MG/3 ML VIAL.NEB NEB SCH ×4 (01:24→19:50)
[2016-07-11] MEDS: ESOMEPRAZOLE MAG TRIHYDRATE 20 MG CAPSULE.DR GT SCH (05:04)
[2016-07-11] MEDS: POLYVINYL ALCOHOL 15 ML BOTTLE EACHEYE SCH ×3 (05:04→17:11)
[2016-07-11] MEDS: BLOOD SUGAR DIAGNOSTIC 1 EACH STRIP IN SCH ×3 (05:20→17:11)
[2016-07-11] MEDS: CLONIDINE HCL 0.2 MG TABLET GT PRN (05:20)
[2016-07-11] MEDS: LACTULOSE 10 G/15 ML UDC (PYXIS) GT PRN ×2 (05:21→17:25)
[2016-07-11] MEDS: RENAL NOVASOURCE 1,000 ML BOTTLE GT PRN (05:21)
[2016-07-11] MEDS: INSULIN REGULAR, HUMAN 100 UNIT/ML 3 ML VIAL SQ PRN ×3 (05:21→17:23)
[2016-07-11 06:05] VITALS: BP 139/77
[2016-07-11] MEDS: PIPERACILLIN /TAZOBACTAM 2.25 G in IV D5W 50 ML IV SCH ×3 (06:49→23:54)
[2016-07-11 08:05] LABS: CALCIUM, SERUM 9.5 mg/dL (8.5-10.1); CREATININE 3.1 mg/dL (0.6-1.3); POTASSIUM 4.4 mmol/L (3.5-5.1)
[2016-07-11 08:31] VITALS: BP 138/75
[2016-07-11] MEDS: LACTOBACILLUS RHAMNOSUS GG 1 EACH CAP.SPRINK GT SCH ×2 (08:54→17:10)
[2016-07-11] MEDS: hydrALAZINE HCL 50 MG TABLET GT SCH (08:54)
[2016-07-11] MEDS: VIT B CMPLX 3/FA/VIT C/BIOTIN 1 TAB TABLET GT SCH (08:54)
[2016-07-11] MEDS: CALCITRIOL ORAL SOLUTION 1 MCG/ML GT SCH (08:54)
[2016-07-11] MEDS: METOPROLOL TARTRATE 50 MG TABLET GT SCH ×2 (08:54→21:22)
[2016-07-11] MEDS: LISINOPRIL (20MG) 20 MG TABLET PO SCH (08:55)
[2016-07-11] MEDS: HEPARIN SODIUM, PORCINE 5000 UNITS/1 ML VIAL SQ SCH ×2 (08:55→21:18)
[2016-07-11] MEDS: HYDROCODONE/APAP 5/325MG 1 EACH TABLET GT SCH ×2 (08:55→21:18)
[2016-07-11] MEDS: ASCORBIC ACID 500 MG TABLET GT SCH (08:55)
[2016-07-11] MEDS: PROSOURCE / PROSTAT (PYXIS) 30 ML UDC GT SCH ×3 (08:55→17:10)
[2016-07-11] MEDS: HYDROGEL DRESSING 90 GM TUBE TP SCH ×2 (09:00→21:20)
[2016-07-11] MEDS: CADEXOMER IODINE 40 GM TUBE TP SCH ×2 (09:00→21:20)
[2016-07-11] MEDS: DAKINS HALF STRENGTH (0.25%) 480 ML BOTTLE TOP SCH ×2 (09:00→21:20)
[2016-07-11] MEDS: HYDROGEN PEROXIDE 480 ML BOTTLE TP SCH ×2 (09:00→21:20)
[2016-07-11] MEDS: ZINC OXIDE 30 GM TUBE TP SCH ×4 (09:00→21:21)
[2016-07-11] MEDS: NEOMY SULF/BACITRAC ZN/POLY 15 GM TUBE TP SCH ×2 (09:00→21:21)
[2016-07-11] MEDS: NYSTATIN TOP POWDER 15 GM BOTTLE TP SCH ×6 (09:00→21:20)
[2016-07-11] MEDS: INSULIN GLARGINE SQ SCH ×2 (09:05→21:31)
[2016-07-11] MEDS: [UNRECOGNIZED DRUG - OTHER] SQ SCH ×2 (09:05→21:31)
[2016-07-11 13:20] VITALS: BP 138/75
--- NOTE | 2016-07-11 14:11 | NUR ---
IDT meeting held, family unable to attend. IDT team reviewed medications, treatment and labs. It was mentioned that resident's Hydralazine was held 18x in past month. Resident's BP fluctuating, at times she is given PRN Clonidine for elevated BP or Hydralazine being held due to low BP especially after dialysis. New order given by Dr. Morejon to decrease dose of Hydralazine to 25 mg BID. Orders noted and carried out.
[2016-07-11] MEDS: hydrALAZINE HCL 25 MG TABLET PO SCH (17:10)
[2016-07-11 18:42] VITALS: BP 135/80
[2016-07-11 20:30] VITALS: BP 140/52
[2016-07-12 00:01] VITALS: BP 132/55
[2016-07-12] MEDS: POLYVINYL ALCOHOL 15 ML BOTTLE EACHEYE SCH ×4 (00:33→17:32)
[2016-07-12] MEDS: BLOOD SUGAR DIAGNOSTIC 1 EACH STRIP IN SCH ×4 (00:37→18:05)
[2016-07-12] MEDS: INSULIN REGULAR, HUMAN 100 UNIT/ML 3 ML VIAL SQ PRN ×3 (00:38→18:05)
[2016-07-12] MEDS: IPRATROPIUM NEB FS 0.5 MG/2.5 ML AMPUL.NEB NEB SCH ×4 (02:08→19:37)
[2016-07-12] MEDS: ALBUTEROL FS 2.5 MG/3 ML VIAL.NEB NEB SCH ×4 (02:08→19:37)
[2016-07-12] MEDS: ESOMEPRAZOLE MAG TRIHYDRATE 20 MG CAPSULE.DR GT SCH (05:42)
[2016-07-12 06:15] VITALS: BP 142/75
[2016-07-12] MEDS: PIPERACILLIN /TAZOBACTAM 2.25 G in IV D5W 50 ML IV SCH ×3 (06:18→23:00)
[2016-07-12 07:38] LABS: CALCIUM, SERUM 9.4 mg/dL (8.5-10.1); CREATININE 4.1 mg/dL (0.6-1.3); POTASSIUM 4.3 mmol/L (3.5-5.1)
[2016-07-12 07:47] VITALS: BP 161/77
[2016-07-12] MEDS: hydrALAZINE HCL 25 MG TABLET PO SCH ×2 (08:33→17:00)
[2016-07-12] MEDS: LACTOBACILLUS RHAMNOSUS GG 1 EACH CAP.SPRINK GT SCH ×2 (08:33→17:32)
[2016-07-12] MEDS: CALCITRIOL ORAL SOLUTION 1 MCG/ML GT SCH (08:33)
[2016-07-12] MEDS: PROSOURCE / PROSTAT (PYXIS) 30 ML UDC GT SCH ×3 (08:33→17:32)
[2016-07-12] MEDS: ASCORBIC ACID 500 MG TABLET GT SCH (08:33)
[2016-07-12] MEDS: VIT B CMPLX 3/FA/VIT C/BIOTIN 1 TAB TABLET GT SCH (08:33)
[2016-07-12] MEDS: HEPARIN SODIUM, PORCINE 5000 UNITS/1 ML VIAL SQ SCH ×2 (08:33→20:34)
[2016-07-12] MEDS: INSULIN GLARGINE SQ SCH ×2 (08:34→20:35)
[2016-07-12] MEDS: [UNRECOGNIZED DRUG - OTHER] SQ SCH ×2 (08:34→20:35)
[2016-07-12 14:15] VITALS: BP 110/62
--- NOTE | 2016-07-12 14:15 | NUR ---
Resident returned back from dialysis in stable condition, accompanied by RT.
[2016-07-12] MEDS: HYDROCODONE/APAP 5/325MG 1 EACH TABLET GT SCH ×2 (14:40→21:00)
[2016-07-12] MEDS: NYSTATIN TOP POWDER 15 GM BOTTLE TP SCH ×6 (15:00→20:36)
[2016-07-12] MEDS: ZINC OXIDE 30 GM TUBE TP SCH ×4 (15:00→20:36)
[2016-07-12] MEDS: DAKINS HALF STRENGTH (0.25%) 480 ML BOTTLE TOP SCH ×2 (15:00→20:35)
[2016-07-12] MEDS: NEOMY SULF/BACITRAC ZN/POLY 15 GM TUBE TP SCH ×2 (15:00→20:36)
[2016-07-12] MEDS: HYDROGEL DRESSING 90 GM TUBE TP SCH ×2 (15:00→20:35)
[2016-07-12] MEDS: HYDROGEN PEROXIDE 480 ML BOTTLE TP SCH ×2 (15:00→20:35)
[2016-07-12] MEDS: CADEXOMER IODINE 40 GM TUBE TP SCH ×2 (15:00→20:36)
[2016-07-12 18:40] VITALS: BP 129/72
--- NOTE | 2016-07-12 18:54 | NUR ---
Spoke with Marvel, IV pharmacist from [facility] pharmacy informing her that Vanco trough level still pending. It was drawn this afternoon at 1745 as opposed to getting the level in the morning prior to patient going to dialysis. According to Marvel, it is OK to hang the dose now and inform [facility] of Vanco trough level in AM or when available. [employer] will send recommendations based on the result. Endorsed to incoming shift.
[2016-07-12] MEDS: VANCOMYCIN HCL 0.75 GM in IV D5W 250 ML IV SCH (19:00)
[2016-07-12 20:02] VITALS: BP 142/75
--- NOTE | 2016-07-12 21:16 | NUR ---
Received a phone call from [facility] Pharmacist Marvel. She stated that the level 19 is border line "high" but it is ok. She stated that they will send the new order in the morning.
[2016-07-12] MEDS: METOPROLOL TARTRATE 50 MG TABLET GT SCH (22:21)
[2016-07-13] VITALS: BP 147/74
[2016-07-13] MEDS: POLYVINYL ALCOHOL 15 ML BOTTLE EACHEYE SCH ×5 (00:20→23:08)
[2016-07-13] MEDS: BLOOD SUGAR DIAGNOSTIC 1 EACH STRIP IN SCH ×5 (00:20→23:08)
[2016-07-13] MEDS: INSULIN REGULAR, HUMAN 100 UNIT/ML 3 ML VIAL SQ PRN ×4 (00:22→23:09)
[2016-07-13] MEDS: ALBUTEROL FS 2.5 MG/3 ML VIAL.NEB NEB SCH ×4 (01:42→19:27)
[2016-07-13] MEDS: IPRATROPIUM NEB FS 0.5 MG/2.5 ML AMPUL.NEB NEB SCH ×4 (01:42→19:27)
[2016-07-13] MEDS: ESOMEPRAZOLE MAG TRIHYDRATE 20 MG CAPSULE.DR GT SCH (05:23)
[2016-07-13] MEDS: RENAL NOVASOURCE 1,000 ML BOTTLE GT PRN (05:40)
[2016-07-13 05:51] LABS: CALCIUM, SERUM 9.4 mg/dL (8.5-10.1); CREATININE 2.7 mg/dL (0.6-1.3)
[2016-07-13 06:00] VITALS: BP 128/56
[2016-07-13] MEDS: CLONIDINE HCL 0.2 MG TABLET GT PRN (06:51)
[2016-07-13] MEDS: PIPERACILLIN /TAZOBACTAM 2.25 G in IV D5W 50 ML IV SCH ×3 (07:00→23:00)
[2016-07-13 08:24] VITALS: BP 117/58
[2016-07-13] MEDS: ASCORBIC ACID 500 MG TABLET GT SCH (09:00)
[2016-07-13] MEDS: LACTOBACILLUS RHAMNOSUS GG 1 EACH CAP.SPRINK GT SCH ×2 (09:00→16:11)
[2016-07-13] MEDS: NEOMY SULF/BACITRAC ZN/POLY 15 GM TUBE TP SCH ×2 (09:00→21:07)
[2016-07-13] MEDS: METOPROLOL TARTRATE 50 MG TABLET GT SCH ×2 (09:00→21:08)
[2016-07-13] MEDS: [UNRECOGNIZED DRUG - OTHER] SQ SCH ×2 (09:00→21:07)
[2016-07-13] MEDS: HYDROCODONE/APAP 5/325MG 1 EACH TABLET GT SCH ×2 (09:00→10:00)
[2016-07-13] MEDS: hydrALAZINE HCL 25 MG TABLET PO SCH ×2 (09:00→17:21)
[2016-07-13] MEDS: HEPARIN SODIUM, PORCINE 5000 UNITS/1 ML VIAL SQ SCH ×2 (09:00→21:07)
[2016-07-13] MEDS: INSULIN GLARGINE SQ SCH ×2 (09:00→21:07)
[2016-07-13] MEDS: DAKINS HALF STRENGTH (0.25%) 480 ML BOTTLE TOP SCH ×2 (09:00→21:24)
[2016-07-13] MEDS: ZINC OXIDE 30 GM TUBE TP SCH ×4 (09:00→21:07)
[2016-07-13] MEDS: HYDROGEN PEROXIDE 480 ML BOTTLE TP SCH ×2 (09:00→21:07)
[2016-07-13] MEDS: CADEXOMER IODINE 40 GM TUBE TP SCH ×2 (09:00→21:24)
[2016-07-13] MEDS: LISINOPRIL (20MG) 20 MG TABLET PO SCH (09:00)
[2016-07-13] MEDS: VIT B CMPLX 3/FA/VIT C/BIOTIN 1 TAB TABLET GT SCH (09:00)
[2016-07-13] MEDS: CALCITRIOL ORAL SOLUTION 1 MCG/ML GT SCH (09:00)
[2016-07-13] MEDS: PROSOURCE / PROSTAT (PYXIS) 30 ML UDC GT SCH ×3 (09:00→17:20)
[2016-07-13] MEDS: HYDROGEL DRESSING 90 GM TUBE TP SCH ×2 (09:00→21:24)
--- NOTE | 2016-07-13 10:59 | NUR ---
Followed up Vancomycin orders with [facility] pharmacy, spoke with Rodriguez. He said there is no IV pharmacist in the morning, IV pharmacist will call this afternoon for orders.
--- NOTE | 2016-07-13 14:13 | NUR ---
Reassessment done for [place] 5/325 mg via GT at 10:00am.
--- NOTE | 2016-07-13 16:01 | NUR ---
Received order to continue Vancomycin 750 mg IV three times weekly q Thursday, , Thursday after hemodialysis, random Vancomycin level on 07/15/16 before hemodialysis.
[2016-07-13 18:00] VITALS: BP 133/69
[2016-07-13 18:04] VITALS: BP 133/69
[2016-07-13 19:38] VITALS: BP 133/66
[2016-07-13] MEDS: HYDROCODONE/APAP 5/325MG 1 EACH TABLET GT PRN (21:11)
[2016-07-14] VITALS: BP 123/59
[2016-07-14] MEDS: ALBUTEROL FS 2.5 MG/3 ML VIAL.NEB NEB SCH ×4 (02:07→20:17)
[2016-07-14] MEDS: IPRATROPIUM NEB FS 0.5 MG/2.5 ML AMPUL.NEB NEB SCH ×4 (02:07→20:17)
[2016-07-14] MEDS: POLYVINYL ALCOHOL 15 ML BOTTLE EACHEYE SCH ×4 (05:18→23:20)
[2016-07-14] MEDS: BLOOD SUGAR DIAGNOSTIC 1 EACH STRIP IN SCH ×4 (05:18→23:20)
[2016-07-14] MEDS: ESOMEPRAZOLE MAG TRIHYDRATE 20 MG CAPSULE.DR GT SCH (05:18)
[2016-07-14] MEDS: RENAL NOVASOURCE 1,000 ML BOTTLE GT PRN (05:18)
[2016-07-14] MEDS: INSULIN REGULAR, HUMAN 100 UNIT/ML 3 ML VIAL SQ PRN ×4 (05:18→23:21)
[2016-07-14 06:10] VITALS: BP 128/73
[2016-07-14] MEDS: PIPERACILLIN /TAZOBACTAM 2.25 G in IV D5W 50 ML IV SCH ×3 (06:44→23:00)
[2016-07-14 07:51] VITALS: BP 140/57
[2016-07-14] MEDS: HYDROCODONE/APAP 5/325MG 1 EACH TABLET GT SCH ×2 (09:00→21:02)
[2016-07-14] MEDS: CALCITRIOL ORAL SOLUTION 1 MCG/ML GT SCH (09:47)
[2016-07-14] MEDS: LACTOBACILLUS RHAMNOSUS GG 1 EACH CAP.SPRINK GT SCH ×2 (09:47→16:27)
[2016-07-14] MEDS: ASCORBIC ACID 500 MG TABLET GT SCH (09:48)
[2016-07-14] MEDS: METOPROLOL TARTRATE 50 MG TABLET GT SCH ×2 (09:48→21:05)
[2016-07-14] MEDS: LISINOPRIL (20MG) 20 MG TABLET PO SCH (09:48)
[2016-07-14] MEDS: VIT B CMPLX 3/FA/VIT C/BIOTIN 1 TAB TABLET GT SCH (09:48)
[2016-07-14] MEDS: hydrALAZINE HCL 25 MG TABLET PO SCH ×2 (09:48→16:27)
[2016-07-14] MEDS: PROSOURCE / PROSTAT (PYXIS) 30 ML UDC GT SCH ×3 (09:48→16:27)
[2016-07-14] MEDS: HEPARIN SODIUM, PORCINE 5000 UNITS/1 ML VIAL SQ SCH ×2 (09:49→21:03)
[2016-07-14] MEDS: INSULIN GLARGINE SQ SCH ×2 (09:49→21:04)
[2016-07-14] MEDS: [UNRECOGNIZED DRUG - OTHER] SQ SCH ×2 (09:49→21:04)
[2016-07-14] MEDS: DAKINS HALF STRENGTH (0.25%) 480 ML BOTTLE TOP SCH ×2 (10:30→21:40)
[2016-07-14] MEDS: HYDROGEL DRESSING 90 GM TUBE TP SCH ×2 (10:30→21:40)
[2016-07-14] MEDS: NEOMY SULF/BACITRAC ZN/POLY 15 GM TUBE TP SCH ×2 (10:30→21:41)
[2016-07-14] MEDS: NYSTATIN TOP POWDER 15 GM BOTTLE TP SCH ×6 (10:30→21:41)
[2016-07-14] MEDS: CADEXOMER IODINE 40 GM TUBE TP SCH ×2 (10:30→21:40)
[2016-07-14] MEDS: ZINC OXIDE 30 GM TUBE TP SCH ×4 (10:30→21:41)
[2016-07-14] MEDS: HYDROGEN PEROXIDE 480 ML BOTTLE TP SCH ×2 (10:30→21:40)
[2016-07-14 10:31] LABS: CALCIUM, SERUM 9.2 mg/dL (8.5-10.1); CREATININE 3.9 mg/dL (0.6-1.3); POTASSIUM 4.2 mmol/L (3.5-5.1)
[2016-07-14 15:37] VITALS: BP 131/67
[2016-07-14 18:06] VITALS: BP 130/76
--- NOTE | 2016-07-14 18:18 | NUR ---
Asked THOMAS Ramsay for stop dates for Vancomycin and Zosyn. She said to give both antibiotics for a total of 2 weeks.
[2016-07-14 19:43] VITALS: BP 130/62
[2016-07-15 00:46] VITALS: BP 126/78
[2016-07-15] MEDS: ALBUTEROL FS 2.5 MG/3 ML VIAL.NEB NEB SCH ×4 (01:18→20:17)
[2016-07-15] MEDS: IPRATROPIUM NEB FS 0.5 MG/2.5 ML AMPUL.NEB NEB SCH ×4 (01:18→20:17)
[2016-07-15] MEDS: ESOMEPRAZOLE MAG TRIHYDRATE 20 MG CAPSULE.DR GT SCH (05:27)
[2016-07-15] MEDS: POLYVINYL ALCOHOL 15 ML BOTTLE EACHEYE SCH ×4 (05:27→23:19)
[2016-07-15] MEDS: BLOOD SUGAR DIAGNOSTIC 1 EACH STRIP IN SCH ×4 (06:00→23:20)
[2016-07-15] MEDS: INSULIN REGULAR, HUMAN 100 UNIT/ML 3 ML VIAL SQ PRN ×3 (06:01→23:20)
[2016-07-15 06:24] VITALS: BP 134/72
[2016-07-15] MEDS: PIPERACILLIN /TAZOBACTAM 2.25 G in IV D5W 50 ML IV SCH ×3 (07:00→23:00)
[2016-07-15 08:23] LABS: CALCIUM, SERUM 8.8 mg/dL (8.5-10.1); CREATININE 4.5 mg/dL (0.6-1.3); POTASSIUM 4.4 mmol/L (3.5-5.1)
[2016-07-15] MEDS: VIT B CMPLX 3/FA/VIT C/BIOTIN 1 TAB TABLET GT SCH (08:58)
[2016-07-15] MEDS: LACTOBACILLUS RHAMNOSUS GG 1 EACH CAP.SPRINK GT SCH ×2 (08:58→16:27)
[2016-07-15] MEDS: CALCITRIOL ORAL SOLUTION 1 MCG/ML GT SCH (08:58)
[2016-07-15] MEDS: PROSOURCE / PROSTAT (PYXIS) 30 ML UDC GT SCH ×3 (08:59→16:27)
[2016-07-15] MEDS: ASCORBIC ACID 500 MG TABLET GT SCH (08:59)
[2016-07-15] MEDS: HYDROCODONE/APAP 5/325MG 1 EACH TABLET GT SCH ×2 (08:59→20:48)
[2016-07-15] MEDS: hydrALAZINE HCL 25 MG TABLET PO SCH ×2 (09:00→16:31)
[2016-07-15] MEDS: HEPARIN SODIUM, PORCINE 5000 UNITS/1 ML VIAL SQ SCH ×2 (09:02→20:49)
[2016-07-15] MEDS: [UNRECOGNIZED DRUG - OTHER] SQ SCH ×2 (09:03→20:49)
[2016-07-15] MEDS: INSULIN GLARGINE SQ SCH ×2 (09:03→20:49)
[2016-07-15] MEDS: NYSTATIN TOP POWDER 15 GM BOTTLE TP SCH ×6 (09:04→21:25)
[2016-07-15] MEDS: DAKINS HALF STRENGTH (0.25%) 480 ML BOTTLE TOP SCH ×2 (09:04→21:24)
[2016-07-15] MEDS: HYDROGEL DRESSING 90 GM TUBE TP SCH ×2 (09:04→21:25)
[2016-07-15] MEDS: CADEXOMER IODINE 40 GM TUBE TP SCH ×2 (09:04→21:25)
[2016-07-15] MEDS: HYDROGEN PEROXIDE 480 ML BOTTLE TP SCH ×2 (09:04→21:25)
[2016-07-15] MEDS: NEOMY SULF/BACITRAC ZN/POLY 15 GM TUBE TP SCH (09:05)
[2016-07-15] MEDS: ZINC OXIDE 30 GM TUBE TP SCH ×4 (09:05→21:25)
--- NOTE | 2016-07-15 09:30 | NUR ---
Seen by Dr Morejon with no new order.
[2016-07-15 12:29] VITALS: BP 111/46
--- NOTE | 2016-07-15 15:00 | NUR ---
Order to hold Vancomycin tonight dose due to level 25mcg/ml and draw random trough on 07/17/16 in am with BUN and Scr too noted and carried out.John lane made aware.
[2016-07-15 15:38] VITALS: BP 130/75
[2016-07-15 18:07] VITALS: BP 133/71
[2016-07-15] MEDS: VANCOMYCIN HCL 0.75 GM in IV D5W 250 ML IV SCH (19:30)
[2016-07-15 20:06] VITALS: BP 123/65
[2016-07-15] MEDS: METOPROLOL TARTRATE 50 MG TABLET GT SCH (21:26)
[2016-07-16] VITALS: BP 128/72
[2016-07-16] MEDS: ALBUTEROL FS 2.5 MG/3 ML VIAL.NEB NEB SCH ×4 (01:54→20:15)
[2016-07-16] MEDS: IPRATROPIUM NEB FS 0.5 MG/2.5 ML AMPUL.NEB NEB SCH ×4 (01:54→20:15)
[2016-07-16] MEDS: BLOOD SUGAR DIAGNOSTIC 1 EACH STRIP IN SCH ×4 (05:38→23:14)
[2016-07-16] MEDS: POLYVINYL ALCOHOL 15 ML BOTTLE EACHEYE SCH ×4 (05:38→23:14)
[2016-07-16] MEDS: INSULIN REGULAR, HUMAN 100 UNIT/ML 3 ML VIAL SQ PRN ×4 (05:38→23:15)
[2016-07-16] MEDS: ESOMEPRAZOLE MAG TRIHYDRATE 20 MG CAPSULE.DR GT SCH (05:38)
[2016-07-16 06:09] VITALS: BP 130/76
[2016-07-16] MEDS: PIPERACILLIN /TAZOBACTAM 2.25 G in IV D5W 50 ML IV SCH (06:15)
[2016-07-16 07:46] LABS: CALCIUM, SERUM 9.3 mg/dL (8.5-10.1); CREATININE 3.1 mg/dL (0.6-1.3); POTASSIUM 3.9 mmol/L (3.5-5.1)
[2016-07-16 07:58] VITALS: BP 155/67
[2016-07-16] MEDS: LACTOBACILLUS RHAMNOSUS GG 1 EACH CAP.SPRINK GT SCH ×2 (08:33→17:13)
[2016-07-16] MEDS: CALCITRIOL ORAL SOLUTION 1 MCG/ML GT SCH (08:33)
[2016-07-16] MEDS: PROSOURCE / PROSTAT (PYXIS) 30 ML UDC GT SCH ×3 (08:34→17:13)
[2016-07-16] MEDS: METOPROLOL TARTRATE 50 MG TABLET GT SCH ×2 (08:34→21:40)
[2016-07-16] MEDS: ASCORBIC ACID 500 MG TABLET GT SCH (08:34)
[2016-07-16] MEDS: VIT B CMPLX 3/FA/VIT C/BIOTIN 1 TAB TABLET GT SCH (08:34)
[2016-07-16] MEDS: HYDROCODONE/APAP 5/325MG 1 EACH TABLET GT SCH ×2 (08:34→20:53)
[2016-07-16] MEDS: ERGOCALCIFEROL (VITAMIN D2) 8,000 UNIT/ML GT SCH (08:34)
[2016-07-16] MEDS: HEPARIN SODIUM, PORCINE 5000 UNITS/1 ML VIAL SQ SCH ×2 (08:35→20:53)
[2016-07-16] MEDS: LISINOPRIL (20MG) 20 MG TABLET PO SCH (08:35)
[2016-07-16] MEDS: hydrALAZINE HCL 25 MG TABLET PO SCH ×2 (08:35→17:16)
[2016-07-16] MEDS: INSULIN GLARGINE SQ SCH ×2 (08:36→20:54)
[2016-07-16] MEDS: [UNRECOGNIZED DRUG - OTHER] SQ SCH ×2 (08:36→20:54)
[2016-07-16] MEDS: NYSTATIN TOP POWDER 15 GM BOTTLE TP SCH ×6 (09:00→21:39)
[2016-07-16] MEDS: CADEXOMER IODINE 40 GM TUBE TP SCH ×2 (09:00→21:39)
[2016-07-16] MEDS: ZINC OXIDE 30 GM TUBE TP SCH ×4 (09:00→21:40)
[2016-07-16] MEDS: DAKINS HALF STRENGTH (0.25%) 480 ML BOTTLE TOP SCH ×2 (09:00→21:39)
[2016-07-16] MEDS: HYDROGEL DRESSING 90 GM TUBE TP SCH ×2 (09:00→21:39)
[2016-07-16] MEDS: HYDROGEN PEROXIDE 480 ML BOTTLE TP SCH ×2 (10:00→21:39)
--- NOTE | 2016-07-16 11:00 | NUR ---
RN NOTES LEFT A MESSAGE FOR KAELA STUNT PERSON REGARDING IF ZOSYN AND VANCO NEEDS TO BE DISCONTINUE.
[2016-07-16 13:06] VITALS: BP 133/80
[2016-07-16 18:20] VITALS: BP 136/82
[2016-07-16 19:37] VITALS: BP 161/79
[2016-07-17 00:28] VITALS: BP 128/74
[2016-07-17] MEDS: IPRATROPIUM NEB FS 0.5 MG/2.5 ML AMPUL.NEB NEB SCH ×4 (01:26→20:10)
[2016-07-17] MEDS: ALBUTEROL FS 2.5 MG/3 ML VIAL.NEB NEB SCH ×4 (01:26→20:10)
[2016-07-17] MEDS: ESOMEPRAZOLE MAG TRIHYDRATE 20 MG CAPSULE.DR GT SCH (05:28)
[2016-07-17] MEDS: POLYVINYL ALCOHOL 15 ML BOTTLE EACHEYE SCH ×3 (05:28→17:17)
[2016-07-17] MEDS: BLOOD SUGAR DIAGNOSTIC 1 EACH STRIP IN SCH ×3 (05:33→17:17)
[2016-07-17] MEDS: INSULIN REGULAR, HUMAN 100 UNIT/ML 3 ML VIAL SQ PRN ×2 (05:34→17:19)
[2016-07-17 06:09] VITALS: BP 138/80
[2016-07-17 08:00] VITALS: BP 142/71
[2016-07-17] MEDS: hydrALAZINE HCL 25 MG TABLET PO SCH ×2 (08:31→17:17)
[2016-07-17] MEDS: CALCITRIOL ORAL SOLUTION 1 MCG/ML GT SCH (08:31)
[2016-07-17] MEDS: VIT B CMPLX 3/FA/VIT C/BIOTIN 1 TAB TABLET GT SCH (08:31)
[2016-07-17] MEDS: PROSOURCE / PROSTAT (PYXIS) 30 ML UDC GT SCH ×3 (08:31→17:17)
[2016-07-17] MEDS: LACTOBACILLUS RHAMNOSUS GG 1 EACH CAP.SPRINK GT SCH ×2 (08:31→17:16)
[2016-07-17] MEDS: ASCORBIC ACID 500 MG TABLET GT SCH (08:31)
[2016-07-17] MEDS: HEPARIN SODIUM, PORCINE 5000 UNITS/1 ML VIAL SQ SCH ×2 (08:32→21:59)
[2016-07-17] MEDS: [UNRECOGNIZED DRUG - OTHER] SQ SCH ×2 (08:33→22:00)
[2016-07-17] MEDS: INSULIN GLARGINE SQ SCH ×2 (08:33→22:00)
[2016-07-17 09:40] VITALS: BP 161/72
[2016-07-17] MEDS: HYDROCODONE/APAP 5/325MG 1 EACH TABLET GT SCH ×2 (14:00→21:00)
[2016-07-17] MEDS: HYDROGEL DRESSING 90 GM TUBE TP SCH ×2 (15:00→21:00)
[2016-07-17] MEDS: ZINC OXIDE 30 GM TUBE TP SCH ×4 (15:00→21:00)
[2016-07-17] MEDS: NYSTATIN TOP POWDER 15 GM BOTTLE TP SCH ×6 (15:00→21:00)
[2016-07-17] MEDS: DAKINS HALF STRENGTH (0.25%) 480 ML BOTTLE TOP SCH ×2 (15:00→21:00)
[2016-07-17] MEDS: HYDROGEN PEROXIDE 480 ML BOTTLE TP SCH ×2 (15:00→21:00)
--- NOTE | 2016-07-17 15:25 | NUR ---
Right lateral lower leg UTD already healed. Received order to apply Mepilex on the area for skin maintenance.
--- NOTE | 2016-07-17 17:53 | NUR ---
RT END OF THE SHIFT REPORT: PT. 46 Y OLD FEMALE REMAIN TRACHED SHILEY # 8 ON VENT WITH NOTED AC SETTING, ALARMS ARE SET AND FUNCTIONAL, NO DISTRESS NOTED T/O SHIFT, CUFF PRESSURE CHECKED THX,S GIVEN INLINE AND CESARIO. WELL NO A/R NOTED. EQUAL CHEST RISE NOTED CASTELLANOS'X FOR MINIMAL WHITE SECRETIONS, B/S BILATERALLY RALES. NO CHANGES HME CHANGED AMBU BAG REMAIN AT THE BEDSIDE. REPORT WILL BE GIVEN TO PM SHIFT. Addendum: 07/17/16 at 1754 by LEIDA MARROQUIN RT Amended: Links added.
[2016-07-17 18:14] VITALS: BP 158/83
[2016-07-17] MEDS: LACTULOSE 10 G/15 ML UDC (PYXIS) GT PRN (18:39)
[2016-07-17 20:26] VITALS: BP 143/71
[2016-07-17] MEDS: METOPROLOL TARTRATE 50 MG TABLET GT SCH (22:35)
[2016-07-18] VITALS: BP 135/70
[2016-07-18] MEDS: POLYVINYL ALCOHOL 15 ML BOTTLE EACHEYE SCH ×4 (00:33→23:13)
[2016-07-18] MEDS: BLOOD SUGAR DIAGNOSTIC 1 EACH STRIP IN SCH ×5 (00:33→23:13)
[2016-07-18] MEDS: CLONIDINE HCL 0.2 MG TABLET GT PRN ×2 (00:38→23:57)
[2016-07-18] MEDS: INSULIN REGULAR, HUMAN 100 UNIT/ML 3 ML VIAL SQ PRN ×5 (00:39→23:14)
[2016-07-18] MEDS: ALBUTEROL FS 2.5 MG/3 ML VIAL.NEB NEB SCH ×4 (00:53→19:44)
[2016-07-18] MEDS: IPRATROPIUM NEB FS 0.5 MG/2.5 ML AMPUL.NEB NEB SCH ×4 (00:53→19:44)
[2016-07-18 06:00] VITALS: BP 114/70
[2016-07-18 07:46] VITALS: BP 138/68
[2016-07-18] MEDS: LACTOBACILLUS RHAMNOSUS GG 1 EACH CAP.SPRINK GT SCH ×2 (08:35→16:46)
[2016-07-18] MEDS: VIT B CMPLX 3/FA/VIT C/BIOTIN 1 TAB TABLET GT SCH (08:35)
[2016-07-18] MEDS: PROSOURCE / PROSTAT (PYXIS) 30 ML UDC GT SCH ×3 (08:35→16:46)
[2016-07-18] MEDS: CALCITRIOL ORAL SOLUTION 1 MCG/ML GT SCH (08:35)
[2016-07-18] MEDS: METOPROLOL TARTRATE 50 MG TABLET GT SCH ×2 (08:35→21:18)
[2016-07-18] MEDS: HYDROCODONE/APAP 5/325MG 1 EACH TABLET GT SCH ×2 (08:35→21:17)
[2016-07-18] MEDS: ASCORBIC ACID 500 MG TABLET GT SCH (08:35)
[2016-07-18] MEDS: hydrALAZINE HCL 25 MG TABLET PO SCH ×2 (08:36→16:46)
[2016-07-18] MEDS: HEPARIN SODIUM, PORCINE 5000 UNITS/1 ML VIAL SQ SCH ×2 (08:36→20:29)
[2016-07-18] MEDS: LISINOPRIL (20MG) 20 MG TABLET PO SCH (08:36)
[2016-07-18] MEDS: INSULIN GLARGINE SQ SCH ×2 (08:37→21:18)
[2016-07-18] MEDS: [UNRECOGNIZED DRUG - OTHER] SQ SCH ×2 (08:37→21:18)
[2016-07-18] MEDS: ZINC OXIDE 30 GM TUBE TP SCH ×4 (09:00→20:29)
[2016-07-18] MEDS: NYSTATIN TOP POWDER 15 GM BOTTLE TP SCH ×6 (09:00→20:29)
[2016-07-18] MEDS: HYDROGEL DRESSING 90 GM TUBE TP SCH (09:00)
[2016-07-18] MEDS: DAKINS HALF STRENGTH (0.25%) 480 ML BOTTLE TOP SCH (09:00)
[2016-07-18] MEDS: HYDROGEN PEROXIDE 480 ML BOTTLE TP SCH ×2 (09:00→20:29)
[2016-07-18] MEDS: RENAL NOVASOURCE 1,000 ML BOTTLE GT PRN (13:34)
--- NOTE | 2016-07-18 16:21 | NUR ---
Notified RIGOBERTO Ramsay that resident had a low grade temp this morning 99.5 but went down to 98.3 after two hours. Currently, resident not on any ATB. She stated that she will keep an eye on her. Endorsed.
[2016-07-18 16:34] VITALS: BP 138/68
--- NOTE | 2016-07-18 18:07 | NUR ---
RT Notes: Patient received trached on mechanical vent. Trach midline and breath sounds equal. Treatments given as ordered and tolerated very well. No adverse reactions noticed. Ventilator plugged into red outlet. Ambu bag and spare trach at the bed side.
[2016-07-18 18:32] VITALS: BP 152/70
[2016-07-18 19:36] VITALS: BP 152/77
[2016-07-19 00:27] VITALS: BP 147/88
[2016-07-19] MEDS: ALBUTEROL FS 2.5 MG/3 ML VIAL.NEB NEB SCH ×4 (01:22→19:36)
[2016-07-19] MEDS: IPRATROPIUM NEB FS 0.5 MG/2.5 ML AMPUL.NEB NEB SCH ×4 (01:22→19:36)
[2016-07-19] MEDS: ESOMEPRAZOLE MAG TRIHYDRATE 20 MG CAPSULE.DR GT SCH (05:31)
[2016-07-19] MEDS: BLOOD SUGAR DIAGNOSTIC 1 EACH STRIP IN SCH ×4 (05:31→23:08)
[2016-07-19] MEDS: POLYVINYL ALCOHOL 15 ML BOTTLE EACHEYE SCH ×4 (05:31→23:08)
[2016-07-19] MEDS: CLONIDINE HCL 0.2 MG TABLET GT PRN ×2 (05:32→23:16)
[2016-07-19] MEDS: INSULIN REGULAR, HUMAN 100 UNIT/ML 3 ML VIAL SQ PRN ×3 (05:33→23:09)
[2016-07-19 06:12] VITALS: BP 153/72
[2016-07-19 07:36] VITALS: BP 154/72
[2016-07-19] MEDS ORDERED: HYDROGEL DRESSING 90 GM TUBE TP PRN (08:30)
[2016-07-19] MEDS ORDERED: DAKINS HALF STRENGTH (0.25%) 480 ML BOTTLE TOP PRN (08:30)
[2016-07-19] MEDS: ASCORBIC ACID 500 MG TABLET GT SCH (09:04)
[2016-07-19] MEDS: CALCITRIOL ORAL SOLUTION 1 MCG/ML GT SCH (09:04)
[2016-07-19] MEDS: VIT B CMPLX 3/FA/VIT C/BIOTIN 1 TAB TABLET GT SCH (09:04)
[2016-07-19] MEDS: LACTOBACILLUS RHAMNOSUS GG 1 EACH CAP.SPRINK GT SCH ×2 (09:04→17:55)
[2016-07-19] MEDS: PROSOURCE / PROSTAT (PYXIS) 30 ML UDC GT SCH ×3 (09:04→17:55)
[2016-07-19] MEDS: hydrALAZINE HCL 25 MG TABLET PO SCH ×2 (09:05→17:00)
[2016-07-19] MEDS: HEPARIN SODIUM, PORCINE 5000 UNITS/1 ML VIAL SQ SCH ×2 (09:05→20:35)
[2016-07-19] MEDS: [UNRECOGNIZED DRUG - OTHER] SQ SCH ×2 (09:05→21:20)
[2016-07-19] MEDS: INSULIN GLARGINE SQ SCH ×2 (09:05→21:20)
--- NOTE | 2016-07-19 13:29 | NUR ---
RT Patient received trach on mech vent. Trach midline and breath sounds equal. Tr. given and tolerated well. No adverse reactions. Spare trach and ambu bag at the bed side. Vent plugged into red outlet and alarms set and audible.
[2016-07-19 14:00] VITALS: BP 128/75
[2016-07-19] MEDS: HYDROCODONE/APAP 5/325MG 1 EACH TABLET GT SCH ×2 (14:16→20:36)
[2016-07-19] MEDS: DAKINS HALF STRENGTH (0.25%) 480 ML BOTTLE TOP SCH ×2 (15:00→20:35)
[2016-07-19] MEDS: ZINC OXIDE 30 GM TUBE TP SCH ×4 (15:00→20:36)
[2016-07-19] MEDS: HYDROGEL DRESSING 90 GM TUBE TP SCH ×2 (15:00→20:35)
[2016-07-19] MEDS: HYDROGEN PEROXIDE 480 ML BOTTLE TP SCH ×2 (15:00→20:35)
[2016-07-19] MEDS: NYSTATIN TOP POWDER 15 GM BOTTLE TP SCH ×6 (15:00→20:36)
[2016-07-19] MEDS: LACTULOSE 10 G/15 ML UDC (PYXIS) GT PRN (18:24)
[2016-07-19 18:33] VITALS: BP 157/85
[2016-07-19 19:46] VITALS: BP 153/76
[2016-07-19] MEDS: METOPROLOL TARTRATE 50 MG TABLET GT SCH (22:53)
[2016-07-20 00:03] VITALS: BP 155/71
[2016-07-20] MEDS: ALBUTEROL FS 2.5 MG/3 ML VIAL.NEB NEB SCH ×4 (01:34→19:25)
[2016-07-20] MEDS: IPRATROPIUM NEB FS 0.5 MG/2.5 ML AMPUL.NEB NEB SCH ×4 (01:34→19:25)
[2016-07-20] MEDS: RENAL NOVASOURCE 1,000 ML BOTTLE GT PRN ×2 (02:01→20:48)
[2016-07-20] MEDS: ESOMEPRAZOLE MAG TRIHYDRATE 20 MG CAPSULE.DR GT SCH (05:28)
[2016-07-20] MEDS: INSULIN REGULAR, HUMAN 100 UNIT/ML 3 ML VIAL SQ PRN ×4 (05:28→23:52)
[2016-07-20] MEDS: CLONIDINE HCL 0.2 MG TABLET GT PRN ×2 (05:28→23:51)
[2016-07-20] MEDS: BLOOD SUGAR DIAGNOSTIC 1 EACH STRIP IN SCH ×4 (05:28→23:51)
[2016-07-20] MEDS: POLYVINYL ALCOHOL 15 ML BOTTLE EACHEYE SCH ×4 (05:28→23:50)
[2016-07-20 06:13] VITALS: BP 152/69
--- NOTE | 2016-07-20 06:29 | NUR ---
Patient on monitoring for low grade temperature. Latest temp. 99.0F. Left a voice mail message to THOMAS Ramsay. Cooling measures provided as needed. Patient remains alert and stable. No SOB noted. Awaiting response. Endorsed acordingly.
[2016-07-20 08:21] VITALS: BP 137/65
--- NOTE | 2016-07-20 08:46 | NUR ---
Per RN NOVEM, from cable swager, Sobia (RIGOBETRO) gave an order for chest X-ray , blood culture x2 and wound cx. Orders noted and carried out.
[2016-07-20] MEDS: ZINC OXIDE 30 GM TUBE TP SCH ×4 (09:00→21:05)
[2016-07-20] MEDS: HYDROGEN PEROXIDE 480 ML BOTTLE TP SCH ×2 (09:00→21:04)
[2016-07-20] MEDS: HYDROGEL DRESSING 90 GM TUBE TP SCH ×2 (09:00→21:04)
[2016-07-20] MEDS: DAKINS HALF STRENGTH (0.25%) 480 ML BOTTLE TOP SCH ×2 (09:00→21:04)
[2016-07-20] MEDS: NYSTATIN TOP POWDER 15 GM BOTTLE TP SCH ×6 (09:00→21:05)
[2016-07-20] MEDS: CALCITRIOL ORAL SOLUTION 1 MCG/ML GT SCH (09:18)
[2016-07-20] MEDS: LACTOBACILLUS RHAMNOSUS GG 1 EACH CAP.SPRINK GT SCH ×2 (09:18→16:17)
[2016-07-20] MEDS: METOPROLOL TARTRATE 50 MG TABLET GT SCH ×2 (09:20→21:54)
[2016-07-20] MEDS: PROSOURCE / PROSTAT (PYXIS) 30 ML UDC GT SCH ×3 (09:21→16:17)
[2016-07-20] MEDS: VIT B CMPLX 3/FA/VIT C/BIOTIN 1 TAB TABLET GT SCH (09:21)
[2016-07-20] MEDS: HYDROCODONE/APAP 5/325MG 1 EACH TABLET GT SCH ×2 (09:21→21:03)
[2016-07-20] MEDS: ASCORBIC ACID 500 MG TABLET GT SCH (09:22)
[2016-07-20] MEDS: hydrALAZINE HCL 25 MG TABLET PO SCH ×2 (09:23→16:17)
[2016-07-20] MEDS: HEPARIN SODIUM, PORCINE 5000 UNITS/1 ML VIAL SQ SCH ×2 (09:23→20:47)
[2016-07-20] MEDS: LISINOPRIL (20MG) 20 MG TABLET PO SCH (09:23)
[2016-07-20] MEDS: INSULIN GLARGINE SQ SCH ×2 (09:24→21:04)
[2016-07-20] MEDS: [UNRECOGNIZED DRUG - OTHER] SQ SCH ×2 (09:24→21:04)
--- NOTE | 2016-07-20 11:34 | NUR ---
RT PATIENT RECEIVED TRACHED ON [facility] VENT WITH SETTINGS PER MD ORDER. MMI TEACHER DONE. BILAT RHONCHI BREATH SOUNDS ON AUSCULTATION. VENT PLUGGED INTO RED OUTLET. TRACH SECURED AND AIRWAY PATENT. SUCTIONED SMALL AMOUNTS OF THICK, WHITE/YELLOW SECRETIONS. ALARMS ON AND AUDIBLE. BREATHING TX'S GIVEN ORDERED. NO ADVERSE REACTIONS OBSERVED. SPARE TRACH AND AMBU BAG AT BEDSIDE. NO SOB OR SIGNS OF DISTRESS NOTED AT THIS TIME. WILL CONTINUE TO MONITOR THE PATIENT FOR ANY CHANGE OF CONDITION. Addendum: 07/20/16 at 1746 by JAVON STANLEY RT Amended: Links added.
[2016-07-20 15:12] VITALS: BP 137/65
[2016-07-20 18:07] VITALS: BP 153/72
[2016-07-20 19:43] VITALS: BP 152/73
[2016-07-21] VITALS: BP 143/71
[2016-07-21] MEDS: IPRATROPIUM NEB FS 0.5 MG/2.5 ML AMPUL.NEB NEB SCH ×4 (01:09→19:43)
[2016-07-21] MEDS: ALBUTEROL FS 2.5 MG/3 ML VIAL.NEB NEB SCH ×4 (01:09→19:43)
[2016-07-21] MEDS: CLONIDINE HCL 0.2 MG TABLET GT PRN (05:43)
[2016-07-21] MEDS: BLOOD SUGAR DIAGNOSTIC 1 EACH STRIP IN SCH ×4 (05:44→23:09)
[2016-07-21] MEDS: INSULIN REGULAR, HUMAN 100 UNIT/ML 3 ML VIAL SQ PRN ×5 (05:45→23:10)
[2016-07-21] MEDS: ESOMEPRAZOLE MAG TRIHYDRATE 20 MG CAPSULE.DR GT SCH (05:48)
[2016-07-21] MEDS: POLYVINYL ALCOHOL 15 ML BOTTLE EACHEYE SCH ×4 (05:48→23:09)
[2016-07-21 06:00] VITALS: BP 163/80
[2016-07-21 08:14] VITALS: BP 157/73
[2016-07-21] MEDS: LACTOBACILLUS RHAMNOSUS GG 1 EACH CAP.SPRINK GT SCH ×2 (09:00→17:00)
[2016-07-21] MEDS: HYDROGEL DRESSING 90 GM TUBE TP SCH ×2 (09:00→21:56)
[2016-07-21] MEDS: ASCORBIC ACID 500 MG TABLET GT SCH (09:00)
[2016-07-21] MEDS: PROSOURCE / PROSTAT (PYXIS) 30 ML UDC GT SCH ×3 (09:00→17:00)
[2016-07-21] MEDS: NYSTATIN TOP POWDER 15 GM BOTTLE TP SCH ×6 (09:00→21:57)
[2016-07-21] MEDS: HYDROCODONE/APAP 5/325MG 1 EACH TABLET GT SCH ×2 (09:00→21:20)
[2016-07-21] MEDS: METOPROLOL TARTRATE 50 MG TABLET GT SCH ×2 (09:00→21:21)
[2016-07-21] MEDS: ZINC OXIDE 30 GM TUBE TP SCH ×4 (09:00→21:57)
[2016-07-21] MEDS: [UNRECOGNIZED DRUG - OTHER] SQ SCH ×2 (09:00→21:20)
[2016-07-21] MEDS: DAKINS HALF STRENGTH (0.25%) 480 ML BOTTLE TOP SCH ×2 (09:00→21:56)
[2016-07-21] MEDS: hydrALAZINE HCL 25 MG TABLET PO SCH ×2 (09:00→17:00)
[2016-07-21] MEDS: VIT B CMPLX 3/FA/VIT C/BIOTIN 1 TAB TABLET GT SCH (09:00)
[2016-07-21] MEDS: CALCITRIOL ORAL SOLUTION 1 MCG/ML GT SCH (09:00)
[2016-07-21] MEDS: HEPARIN SODIUM, PORCINE 5000 UNITS/1 ML VIAL SQ SCH ×2 (09:00→21:20)
[2016-07-21] MEDS: HYDROGEN PEROXIDE 480 ML BOTTLE TP SCH ×2 (09:00→21:57)
[2016-07-21] MEDS: LISINOPRIL (20MG) 20 MG TABLET PO SCH (09:00)
[2016-07-21] MEDS: INSULIN GLARGINE SQ SCH ×2 (09:00→21:20)
--- NOTE | 2016-07-21 09:08 | NUR ---
Was seen by Dr. Savannah BENÍTEZ for annual checkup. Stated tooth 21 is loose and staff can keep an eye on it. If very loose, will recommend extraction. Charge nurse informed.
--- NOTE | 2016-07-21 17:47 | NUR ---
Relayed wound culture result to THOMAS Ramsay, no sensitivities yet. No new order.
[2016-07-21 18:50] VITALS: BP 146/69
[2016-07-21 19:55] VITALS: BP 148/68
[2016-07-22] VITALS (8 sets, daily range): BP systolic 116–155; BP diastolic 64–79
[2016-07-22] MEDS: ALBUTEROL FS 2.5 MG/3 ML VIAL.NEB NEB SCH ×4 (02:27→19:30)
[2016-07-22] MEDS: IPRATROPIUM NEB FS 0.5 MG/2.5 ML AMPUL.NEB NEB SCH ×4 (02:27→19:30)
[2016-07-22] MEDS: POLYVINYL ALCOHOL 15 ML BOTTLE EACHEYE SCH ×4 (05:24→23:12)
[2016-07-22] MEDS: ESOMEPRAZOLE MAG TRIHYDRATE 20 MG CAPSULE.DR GT SCH (05:24)
[2016-07-22] MEDS: BLOOD SUGAR DIAGNOSTIC 1 EACH STRIP IN SCH ×4 (05:24→23:12)
[2016-07-22] MEDS: INSULIN REGULAR, HUMAN 100 UNIT/ML 3 ML VIAL SQ PRN ×3 (05:25→23:13)
[2016-07-22] MEDS: CALCITRIOL ORAL SOLUTION 1 MCG/ML GT SCH (09:32)
[2016-07-22] MEDS: LACTOBACILLUS RHAMNOSUS GG 1 EACH CAP.SPRINK GT SCH ×2 (09:32→16:11)
[2016-07-22] MEDS: ASCORBIC ACID 500 MG TABLET GT SCH (09:33)
[2016-07-22] MEDS: PROSOURCE / PROSTAT (PYXIS) 30 ML UDC GT SCH ×3 (09:33→16:11)
[2016-07-22] MEDS: hydrALAZINE HCL 25 MG TABLET PO SCH ×2 (09:33→16:15)
[2016-07-22] MEDS: VIT B CMPLX 3/FA/VIT C/BIOTIN 1 TAB TABLET GT SCH (09:33)
[2016-07-22] MEDS: HEPARIN SODIUM, PORCINE 5000 UNITS/1 ML VIAL SQ SCH ×2 (09:34→21:10)
[2016-07-22] MEDS: [UNRECOGNIZED DRUG - OTHER] SQ SCH ×2 (09:35→21:10)
[2016-07-22] MEDS: INSULIN GLARGINE SQ SCH ×2 (09:35→21:10)
[2016-07-22] MEDS: HYDROCODONE/APAP 5/325MG 1 EACH TABLET GT SCH ×2 (14:30→21:10)
[2016-07-22] MEDS: LACTULOSE 10 G/15 ML UDC (PYXIS) GT PRN (14:37)
--- NOTE | 2016-07-22 15:25 | NUR ---
Pt noted with open skin (2 sites) on the right thigh. According to pt's TOBY Barr, skin on the area was intact when she cleaned the pt earlier today. Received order to apply triple antibiotic ointment and Mepilex. Also received order for wound consult.
[2016-07-22] MEDS: HYDROGEL DRESSING 90 GM TUBE TP SCH ×2 (15:40→21:38)
[2016-07-22] MEDS: NYSTATIN TOP POWDER 15 GM BOTTLE TP SCH ×6 (15:40→21:38)
[2016-07-22] MEDS: HYDROGEN PEROXIDE 480 ML BOTTLE TP SCH ×2 (15:40→21:38)
[2016-07-22] MEDS: ZINC OXIDE 30 GM TUBE TP SCH ×4 (15:40→21:39)
[2016-07-22] MEDS: DAKINS HALF STRENGTH (0.25%) 480 ML BOTTLE TOP SCH ×2 (15:40→21:38)
--- NOTE | 2016-07-22 17:05 | NUR ---
Called pt's boyfriend John to notify him about the right thigh open skin, but he did not answer the call.
[2016-07-22] MEDS: [UNRECOGNIZED DRUG - OTHER] IV SCH (17:20)
--- NOTE | 2016-07-22 18:35 | NUR ---
RT END OF THE SHIFT REPORT: PT. 46 Y OLD FEMALE REMAIN TRACHED ON VENT WITH NOTED SETTING, ALARMS ARE SET AND FUNCTIONAL, NO DISTRESS NOTED T/O SHIFT, VENT PLUGGED INTO RED OUTLET THX,S GIVEN INLINE AND CESARIO. WELL NO A/R NOTED. EQUAL CHEST RISE NOTED CASTELLANOS'X FOR MINIMAL YELLOW SECRETIONS, B/S BILATERALLY RALES. NO CHANGES HME CHANGED AMBU BAG REMAIN AT THE BEDSIDE. Addendum: 07/22/16 at 1835 by LEIDA MARROQUIN RT Amended: Links added.
[2016-07-22] MEDS: NEOMY SULF/BACITRAC ZN/POLY 15 GM TUBE TP SCH ×2 (21:38→21:39)
[2016-07-22] MEDS: METOPROLOL TARTRATE 50 MG TABLET GT SCH (21:39)
[2016-07-23 00:19] VITALS: BP 130/72
[2016-07-23] MEDS: ALBUTEROL FS 2.5 MG/3 ML VIAL.NEB NEB SCH ×4 (01:30→20:04)
[2016-07-23] MEDS: IPRATROPIUM NEB FS 0.5 MG/2.5 ML AMPUL.NEB NEB SCH ×4 (01:30→20:04)
[2016-07-23] MEDS: POLYVINYL ALCOHOL 15 ML BOTTLE EACHEYE SCH ×4 (05:20→23:11)
[2016-07-23] MEDS: BLOOD SUGAR DIAGNOSTIC 1 EACH STRIP IN SCH ×4 (05:20→23:11)
[2016-07-23] MEDS: ESOMEPRAZOLE MAG TRIHYDRATE 20 MG CAPSULE.DR GT SCH (05:20)
[2016-07-23] MEDS: INSULIN REGULAR, HUMAN 100 UNIT/ML 3 ML VIAL SQ PRN ×4 (05:21→23:12)
[2016-07-23 06:26] VITALS: BP 138/66
[2016-07-23 08:21] VITALS: BP 112/69
[2016-07-23] MEDS: [UNRECOGNIZED DRUG - OTHER] SQ SCH ×2 (09:00→21:13)
[2016-07-23] MEDS: HEPARIN SODIUM, PORCINE 5000 UNITS/1 ML VIAL SQ SCH ×2 (09:00→21:12)
[2016-07-23] MEDS: LACTOBACILLUS RHAMNOSUS GG 1 EACH CAP.SPRINK GT SCH ×2 (09:00→17:49)
[2016-07-23] MEDS: VIT B CMPLX 3/FA/VIT C/BIOTIN 1 TAB TABLET GT SCH (09:00)
[2016-07-23] MEDS: ERGOCALCIFEROL (VITAMIN D2) 8,000 UNIT/ML GT SCH (09:00)
[2016-07-23] MEDS: ASCORBIC ACID 500 MG TABLET GT SCH (09:00)
[2016-07-23] MEDS: CALCITRIOL ORAL SOLUTION 1 MCG/ML GT SCH (09:00)
[2016-07-23] MEDS: PROSOURCE / PROSTAT (PYXIS) 30 ML UDC GT SCH ×3 (09:00→17:49)
[2016-07-23] MEDS: hydrALAZINE HCL 25 MG TABLET PO SCH ×3 (09:00→17:59)
[2016-07-23] MEDS: LISINOPRIL (20MG) 20 MG TABLET PO SCH (09:00)
[2016-07-23] MEDS: INSULIN GLARGINE SQ SCH ×2 (09:00→21:13)
[2016-07-23] MEDS: METOPROLOL TARTRATE 50 MG TABLET GT SCH ×2 (09:00→21:13)
[2016-07-23 12:00] VITALS: BP 135/65
--- NOTE | 2016-07-23 13:21 | NUR ---
Relayed final wound culture report to Bennie GUZMAN, regarding wound culture shows VREa and sensitive to Zyvox. She she said will see the patient. and will order.
[2016-07-23] MEDS: HYDROCODONE/APAP 5/325MG 1 EACH TABLET GT SCH ×2 (15:10→21:12)
[2016-07-23] MEDS: ZINC OXIDE 30 GM TUBE TP SCH ×4 (16:10→21:47)
[2016-07-23] MEDS: NYSTATIN TOP POWDER 15 GM BOTTLE TP SCH ×6 (16:10→21:46)
[2016-07-23] MEDS: DAKINS HALF STRENGTH (0.25%) 480 ML BOTTLE TOP SCH ×2 (16:10→21:46)
[2016-07-23] MEDS: HYDROGEL DRESSING 90 GM TUBE TP SCH ×2 (16:10→21:46)
[2016-07-23] MEDS: HYDROGEN PEROXIDE 480 ML BOTTLE TP SCH ×2 (16:10→21:46)
[2016-07-23] MEDS: NEOMY SULF/BACITRAC ZN/POLY 15 GM TUBE TP SCH ×4 (16:10→21:46)
[2016-07-23 18:40] VITALS: BP 110/67
[2016-07-23 20:03] VITALS: BP 123/62
--- NOTE | 2016-07-23 21:00 | NUR ---
Pt seen by Cherie with new orders to start on gentamicin ,pharmacist to dose,Zosyn 2.25gm q 8hrs for cellulitis.Orders carried out.
[2016-07-23] MEDS: PIPERACILLIN /TAZOBACTAM 2.25 G in IV D5W 50 ML IV SCH (21:06)
[2016-07-23] MEDS: RENAL NOVASOURCE 1,000 ML BOTTLE GT PRN (21:14)
--- NOTE | 2016-07-23 22:00 | NUR ---
Per [facility] pharmacist [facility] Gentamicin 160mg IV every after dialysis,([facility]) start tomorrow 2 8pm and will do trough on 07/29/16 2 0 with serum crea and creatinine.John ( boyfriend) notified with new orders.
[2016-07-24 00:27] VITALS: BP 126/66
[2016-07-24] MEDS: ALBUTEROL FS 2.5 MG/3 ML VIAL.NEB NEB SCH ×4 (02:09→20:14)
[2016-07-24] MEDS: IPRATROPIUM NEB FS 0.5 MG/2.5 ML AMPUL.NEB NEB SCH ×4 (02:09→20:14)
[2016-07-24] MEDS: PIPERACILLIN /TAZOBACTAM 2.25 G in IV D5W 50 ML IV SCH ×3 (04:59→21:05)
[2016-07-24] MEDS: BLOOD SUGAR DIAGNOSTIC 1 EACH STRIP IN SCH ×3 (05:35→18:10)
[2016-07-24] MEDS: ESOMEPRAZOLE MAG TRIHYDRATE 20 MG CAPSULE.DR GT SCH (05:35)
[2016-07-24] MEDS: POLYVINYL ALCOHOL 15 ML BOTTLE EACHEYE SCH ×3 (05:35→18:10)
[2016-07-24] MEDS: INSULIN REGULAR, HUMAN 100 UNIT/ML 3 ML VIAL SQ PRN ×2 (05:36→18:11)
[2016-07-24 06:06] VITALS: BP 130/62
[2016-07-24 08:12] VITALS: BP 158/87
[2016-07-24] MEDS: hydrALAZINE HCL 25 MG TABLET PO SCH ×2 (09:04→17:00)
[2016-07-24] MEDS: LACTOBACILLUS RHAMNOSUS GG 1 EACH CAP.SPRINK GT SCH ×2 (09:04→17:00)
[2016-07-24] MEDS: PROSOURCE / PROSTAT (PYXIS) 30 ML UDC GT SCH ×3 (09:04→17:00)
[2016-07-24] MEDS: HYDROCODONE/APAP 5/325MG 1 EACH TABLET GT SCH ×2 (09:04→21:00)
[2016-07-24] MEDS: ASCORBIC ACID 500 MG TABLET GT SCH (09:04)
[2016-07-24] MEDS: VIT B CMPLX 3/FA/VIT C/BIOTIN 1 TAB TABLET GT SCH (09:04)
[2016-07-24] MEDS: CALCITRIOL ORAL SOLUTION 1 MCG/ML GT SCH (09:04)
[2016-07-24] MEDS: HEPARIN SODIUM, PORCINE 5000 UNITS/1 ML VIAL SQ SCH ×2 (09:05→21:17)
[2016-07-24] MEDS: [UNRECOGNIZED DRUG - OTHER] SQ SCH ×2 (09:06→21:18)
[2016-07-24] MEDS: INSULIN GLARGINE SQ SCH ×2 (09:06→21:18)
[2016-07-24] MEDS: DAKINS HALF STRENGTH (0.25%) 480 ML BOTTLE TOP SCH ×2 (09:30→21:19)
[2016-07-24] MEDS: HYDROGEL DRESSING 90 GM TUBE TP SCH ×2 (09:30→21:19)
[2016-07-24] MEDS: HYDROGEN PEROXIDE 480 ML BOTTLE TP SCH ×2 (09:30→21:19)
[2016-07-24] MEDS: NEOMY SULF/BACITRAC ZN/POLY 15 GM TUBE TP SCH ×4 (09:30→21:19)
[2016-07-24] MEDS: NYSTATIN TOP POWDER 15 GM BOTTLE TP SCH ×6 (09:30→21:19)
[2016-07-24] MEDS: ZINC OXIDE 30 GM TUBE TP SCH ×4 (09:30→21:19)
--- NOTE | 2016-07-24 09:58 | NUR ---
WOUND CARE CONSULT PATIENT OFF UNIT AT DIALYSIS AT THIS TIME. WILL SEE PATIENT FOR WOUND CONSULT TOMORROW.
[2016-07-24 14:30] VITALS: BP 133/88
[2016-07-24] MEDS: LACTULOSE 10 G/15 ML UDC (PYXIS) GT PRN (18:12)
[2016-07-24 18:50] VITALS: BP 157/90
[2016-07-24] MEDS ORDERED: D5W IV PRN (20:00)
[2016-07-24] MEDS ORDERED: GENTAMICIN IV PRN (20:00)
[2016-07-24] MEDS: GENTAMICIN 90 MG in IV D5W 50 ML IV SCH (20:16)
[2016-07-24] MEDS: METOPROLOL TARTRATE 50 MG TABLET GT SCH (21:20)
[2016-07-25] VITALS: BP 101/57
[2016-07-25] MEDS: BLOOD SUGAR DIAGNOSTIC 1 EACH STRIP IN SCH ×4 (00:23→17:58)
[2016-07-25] MEDS: POLYVINYL ALCOHOL 15 ML BOTTLE EACHEYE SCH ×4 (00:23→17:58)
[2016-07-25] MEDS: INSULIN REGULAR, HUMAN 100 UNIT/ML 3 ML VIAL SQ PRN ×4 (00:24→18:01)
[2016-07-25] MEDS: IPRATROPIUM NEB FS 0.5 MG/2.5 ML AMPUL.NEB NEB SCH ×4 (02:04→19:40)
[2016-07-25] MEDS: ALBUTEROL FS 2.5 MG/3 ML VIAL.NEB NEB SCH ×4 (02:04→19:40)
[2016-07-25] MEDS: PIPERACILLIN /TAZOBACTAM 2.25 G in IV D5W 50 ML IV SCH ×3 (05:00→20:43)
[2016-07-25] MEDS: CLONIDINE HCL 0.2 MG TABLET GT PRN (05:13)
[2016-07-25] MEDS: ESOMEPRAZOLE MAG TRIHYDRATE 20 MG CAPSULE.DR GT SCH (05:13)
[2016-07-25] MEDS: RENAL NOVASOURCE 1,000 ML BOTTLE GT PRN (05:16)
[2016-07-25 06:00] VITALS: BP 112/63
[2016-07-25 07:59] VITALS: BP 98/42
--- NOTE | 2016-07-25 08:41 | NUR ---
WOUND CARE CONSULT: PATIENT SEEN AND SKIN ASSESSMENT OF THE RIGHT THIGH OPEN SKIN ON 2 SITES IN HEALING STAGES. OPEN SKIN #1 MEASURES 1CM X 0.5CM X 0CM WITHOUT DRAINAGE, PINK WITH SOME CRUSTING, NO ODOR. OPEN SKIN #2 MEASURES 1.5CM X 1.5CM X 0.1CM, WITH SCANT SEROUS DRAINAGE, PINK, NO ODOR. CONCUR WITH CURRENT TREATMENT WITH TRIPLE ANTIBIOTIC AND MEPILEX. DISCUSSED WITH NURSING STAFF. WOUND CARE NURSE WILL FOLLOW UP PRN. IN AGREEMENT WITH PLAN OF CARE.
[2016-07-25] MEDS: HEPARIN SODIUM, PORCINE 5000 UNITS/1 ML VIAL SQ SCH ×2 (09:00→21:55)
[2016-07-25] MEDS: [UNRECOGNIZED DRUG - OTHER] SQ SCH ×2 (09:00→21:56)
[2016-07-25] MEDS: CALCITRIOL ORAL SOLUTION 1 MCG/ML GT SCH (09:00)
[2016-07-25] MEDS: INSULIN GLARGINE SQ SCH ×2 (09:00→21:56)
[2016-07-25] MEDS: LISINOPRIL (20MG) 20 MG TABLET PO SCH (09:00)
[2016-07-25] MEDS: PROSOURCE / PROSTAT (PYXIS) 30 ML UDC GT SCH ×3 (09:00→17:58)
[2016-07-25] MEDS: HYDROCODONE/APAP 5/325MG 1 EACH TABLET GT SCH ×2 (09:00→21:54)
[2016-07-25] MEDS: METOPROLOL TARTRATE 50 MG TABLET GT SCH ×2 (09:00→21:59)
[2016-07-25] MEDS: ASCORBIC ACID 500 MG TABLET GT SCH (09:00)
[2016-07-25] MEDS: hydrALAZINE HCL 25 MG TABLET PO SCH ×2 (09:00→17:58)
[2016-07-25] MEDS: LACTOBACILLUS RHAMNOSUS GG 1 EACH CAP.SPRINK GT SCH ×2 (09:00→17:58)
[2016-07-25] MEDS: VIT B CMPLX 3/FA/VIT C/BIOTIN 1 TAB TABLET GT SCH (09:00)
[2016-07-25] MEDS: NEOMY SULF/BACITRAC ZN/POLY 15 GM TUBE TP SCH ×4 (09:30→21:57)
[2016-07-25] MEDS: ZINC OXIDE 30 GM TUBE TP SCH ×4 (09:30→21:57)
[2016-07-25] MEDS: NYSTATIN TOP POWDER 15 GM BOTTLE TP SCH ×6 (09:30→21:56)
[2016-07-25] MEDS: HYDROGEN PEROXIDE 480 ML BOTTLE TP SCH ×2 (09:30→21:56)
[2016-07-25] MEDS: HYDROGEL DRESSING 90 GM TUBE TP SCH ×2 (09:30→21:56)
[2016-07-25] MEDS: DAKINS HALF STRENGTH (0.25%) 480 ML BOTTLE TOP SCH ×2 (09:30→21:56)
[2016-07-25 12:00] VITALS: BP 123/62
--- NOTE | 2016-07-25 16:44 | NUR ---
Clarified order from Sobia,THOMAS ID regarding duration of IV ATB. Per Sobia, IV ATB to be given total of two weeks.
[2016-07-25 18:33] VITALS: BP 150/74
[2016-07-25 19:52] VITALS: BP 112/43
[2016-07-26] MEDS: POLYVINYL ALCOHOL 15 ML BOTTLE EACHEYE SCH ×4 (00:08→17:33)
[2016-07-26] MEDS: BLOOD SUGAR DIAGNOSTIC 1 EACH STRIP IN SCH ×5 (00:10→23:46)
[2016-07-26] MEDS: INSULIN REGULAR, HUMAN 100 UNIT/ML 3 ML VIAL SQ PRN ×4 (00:11→23:48)
[2016-07-26 00:15] VITALS: BP 150/92
[2016-07-26] MEDS: ALBUTEROL FS 2.5 MG/3 ML VIAL.NEB NEB SCH ×4 (00:30→19:55)
[2016-07-26] MEDS: IPRATROPIUM NEB FS 0.5 MG/2.5 ML AMPUL.NEB NEB SCH ×4 (00:30→19:55)
[2016-07-26] MEDS: RENAL NOVASOURCE 1,000 ML BOTTLE GT PRN (03:38)
[2016-07-26] MEDS: PIPERACILLIN /TAZOBACTAM 2.25 G in IV D5W 50 ML IV SCH ×3 (05:08→21:00)
[2016-07-26] MEDS: ESOMEPRAZOLE MAG TRIHYDRATE 20 MG CAPSULE.DR GT SCH (05:32)
[2016-07-26 06:02] VITALS: BP 153/83
[2016-07-26 08:00] VITALS: BP 164/75
[2016-07-26] MEDS: LACTOBACILLUS RHAMNOSUS GG 1 EACH CAP.SPRINK GT SCH ×2 (08:15→17:32)
[2016-07-26] MEDS: ASCORBIC ACID 500 MG TABLET GT SCH (08:15)
[2016-07-26] MEDS: CALCITRIOL ORAL SOLUTION 1 MCG/ML GT SCH (08:15)
[2016-07-26] MEDS: PROSOURCE / PROSTAT (PYXIS) 30 ML UDC GT SCH ×3 (08:15→17:32)
[2016-07-26] MEDS: HYDROCODONE/APAP 5/325MG 1 EACH TABLET GT SCH ×2 (08:15→21:00)
[2016-07-26] MEDS: VIT B CMPLX 3/FA/VIT C/BIOTIN 1 TAB TABLET GT SCH (08:15)
[2016-07-26] MEDS: hydrALAZINE HCL 25 MG TABLET PO SCH ×2 (08:15→17:00)
[2016-07-26] MEDS: HEPARIN SODIUM, PORCINE 5000 UNITS/1 ML VIAL SQ SCH ×2 (08:16→20:50)
[2016-07-26] MEDS: [UNRECOGNIZED DRUG - OTHER] SQ SCH ×2 (08:16→20:50)
[2016-07-26] MEDS: INSULIN GLARGINE SQ SCH ×2 (08:16→20:50)
[2016-07-26] MEDS: NYSTATIN TOP POWDER 15 GM BOTTLE TP SCH ×6 (09:00→21:32)
[2016-07-26] MEDS: HYDROGEL DRESSING 90 GM TUBE TP SCH ×2 (09:00→21:32)
[2016-07-26] MEDS: NEOMY SULF/BACITRAC ZN/POLY 15 GM TUBE TP SCH ×4 (09:00→21:33)
[2016-07-26] MEDS: HYDROGEN PEROXIDE 480 ML BOTTLE TP SCH ×2 (09:00→21:32)
[2016-07-26] MEDS: DAKINS HALF STRENGTH (0.25%) 480 ML BOTTLE TOP SCH ×2 (09:00→21:32)
[2016-07-26] MEDS: ZINC OXIDE 30 GM TUBE TP SCH ×4 (09:00→21:33)
[2016-07-26] MEDS: HYDROCODONE/APAP 5/325MG 1 EACH TABLET GT PRN ×2 (17:56→20:18)
[2016-07-26 18:00] VITALS: BP 124/72
[2016-07-26 19:40] VITALS: BP 153/79
--- NOTE | 2016-07-26 19:58 | NUR ---
PT REC'D ON TRACH JOANNLEY 8 ON VENT SETTINGS CHARTED. TRACH IS SECURE AND IS IN PROPER POSITION. NO RESP DISTRESS NOTED. VENT ALARMS ARE SET AND AUDIBLE. VENT IS PLUGGED IN RED OUTLET AMBU BAG IS BEDSIDE. SX MOD THICK WHITE SECRETIONS. WILL CONTINUE TO MONITOR. Addendum: 07/27/16 at 0433 by LOUISA CRUZ RT Amended: Links added.
[2016-07-26] MEDS: GENTAMICIN 90 MG in IV D5W 50 ML IV SCH (20:00)
[2016-07-26] MEDS: METOPROLOL TARTRATE 50 MG TABLET GT SCH (21:39)
[2016-07-26] MEDS: CLONIDINE HCL 0.2 MG TABLET GT PRN (23:46)
[2016-07-27] VITALS (7 sets, daily range): BP systolic 142–159; BP diastolic 60–84
[2016-07-27] MEDS: HYDROCODONE/APAP 5/325MG 1 EACH TABLET GT SCH ×3 (01:00→21:21)
[2016-07-27] MEDS: ALBUTEROL FS 2.5 MG/3 ML VIAL.NEB NEB SCH ×4 (01:48→20:12)
[2016-07-27] MEDS: IPRATROPIUM NEB FS 0.5 MG/2.5 ML AMPUL.NEB NEB SCH ×4 (01:48→20:12)
[2016-07-27] MEDS: PIPERACILLIN /TAZOBACTAM 2.25 G in IV D5W 50 ML IV SCH ×3 (04:27→21:00)
[2016-07-27] MEDS: BLOOD SUGAR DIAGNOSTIC 1 EACH STRIP IN SCH ×4 (06:19→23:34)
[2016-07-27] MEDS: ESOMEPRAZOLE MAG TRIHYDRATE 20 MG CAPSULE.DR GT SCH (06:19)
[2016-07-27] MEDS: INSULIN REGULAR, HUMAN 100 UNIT/ML 3 ML VIAL SQ PRN ×4 (06:21→23:35)
[2016-07-27] MEDS: RENAL NOVASOURCE 1,000 ML BOTTLE GT PRN (06:22)
[2016-07-27] MEDS: POLYVINYL ALCOHOL 15 ML BOTTLE EACHEYE SCH ×4 (06:22→17:27)
[2016-07-27] MEDS: ASCORBIC ACID 500 MG TABLET GT SCH (09:00)
[2016-07-27] MEDS: CALCITRIOL ORAL SOLUTION 1 MCG/ML GT SCH (09:00)
[2016-07-27] MEDS: PROSOURCE / PROSTAT (PYXIS) 30 ML UDC GT SCH ×3 (09:00→17:26)
[2016-07-27] MEDS: LISINOPRIL (20MG) 20 MG TABLET PO SCH (09:00)
[2016-07-27] MEDS: HYDROGEL DRESSING 90 GM TUBE TP SCH ×2 (09:00→21:28)
[2016-07-27] MEDS: HYDROGEN PEROXIDE 480 ML BOTTLE TP SCH ×2 (09:00→21:29)
[2016-07-27] MEDS: ZINC OXIDE 30 GM TUBE TP SCH ×4 (09:00→21:29)
[2016-07-27] MEDS: DAKINS HALF STRENGTH (0.25%) 480 ML BOTTLE TOP SCH ×2 (09:00→21:28)
[2016-07-27] MEDS: NYSTATIN TOP POWDER 15 GM BOTTLE TP SCH ×6 (09:00→21:29)
[2016-07-27] MEDS: VIT B CMPLX 3/FA/VIT C/BIOTIN 1 TAB TABLET GT SCH (09:00)
[2016-07-27] MEDS: LACTOBACILLUS RHAMNOSUS GG 1 EACH CAP.SPRINK GT SCH ×2 (09:00→17:26)
[2016-07-27] MEDS: NEOMY SULF/BACITRAC ZN/POLY 15 GM TUBE TP SCH ×4 (09:00→21:29)
[2016-07-27] MEDS: [UNRECOGNIZED DRUG - OTHER] SQ SCH ×2 (09:00→21:28)
[2016-07-27] MEDS: hydrALAZINE HCL 25 MG TABLET PO SCH ×2 (09:00→17:27)
[2016-07-27] MEDS: METOPROLOL TARTRATE 50 MG TABLET GT SCH ×2 (09:00→21:30)
[2016-07-27] MEDS: INSULIN GLARGINE SQ SCH ×2 (09:00→21:28)
[2016-07-27] MEDS: HEPARIN SODIUM, PORCINE 5000 UNITS/1 ML VIAL SQ SCH ×2 (09:00→21:24)
[2016-07-28] VITALS (7 sets, daily range): BP systolic 86–149; BP diastolic 51–78
[2016-07-28] MEDS: POLYVINYL ALCOHOL 15 ML BOTTLE EACHEYE SCH ×4 (00:01→17:30)
[2016-07-28] MEDS: ALBUTEROL FS 2.5 MG/3 ML VIAL.NEB NEB SCH ×4 (00:37→19:21)
[2016-07-28] MEDS: IPRATROPIUM NEB FS 0.5 MG/2.5 ML AMPUL.NEB NEB SCH ×4 (00:37→19:21)
[2016-07-28] MEDS: PIPERACILLIN /TAZOBACTAM 2.25 G in IV D5W 50 ML IV SCH ×3 (05:00→21:00)
[2016-07-28] MEDS: ESOMEPRAZOLE MAG TRIHYDRATE 20 MG CAPSULE.DR GT SCH (05:31)
[2016-07-28] MEDS: BLOOD SUGAR DIAGNOSTIC 1 EACH STRIP IN SCH ×3 (05:31→17:30)
[2016-07-28] MEDS: INSULIN REGULAR, HUMAN 100 UNIT/ML 3 ML VIAL SQ PRN ×3 (05:32→17:47)
[2016-07-28] MEDS: [UNRECOGNIZED DRUG - OTHER] SQ SCH ×2 (09:00→21:16)
[2016-07-28] MEDS: VIT B CMPLX 3/FA/VIT C/BIOTIN 1 TAB TABLET GT SCH (09:00)
[2016-07-28] MEDS: LISINOPRIL (20MG) 20 MG TABLET PO SCH (09:00)
[2016-07-28] MEDS: LACTOBACILLUS RHAMNOSUS GG 1 EACH CAP.SPRINK GT SCH ×2 (09:00→17:30)
[2016-07-28] MEDS: HEPARIN SODIUM, PORCINE 5000 UNITS/1 ML VIAL SQ SCH ×2 (09:00→21:16)
[2016-07-28] MEDS: ASCORBIC ACID 500 MG TABLET GT SCH (09:00)
[2016-07-28] MEDS: CALCITRIOL ORAL SOLUTION 1 MCG/ML GT SCH (09:00)
[2016-07-28] MEDS: hydrALAZINE HCL 25 MG TABLET PO SCH ×2 (09:00→17:30)
[2016-07-28] MEDS: METOPROLOL TARTRATE 50 MG TABLET GT SCH ×2 (09:00→21:18)
[2016-07-28] MEDS: INSULIN GLARGINE SQ SCH ×2 (09:00→21:16)
[2016-07-28] MEDS: PROSOURCE / PROSTAT (PYXIS) 30 ML UDC GT SCH ×3 (09:00→17:30)
--- NOTE | 2016-07-28 10:00 | NUR ---
Seen by Dr. Olivo. Notified her that pt's BP 86/51, pt placed on Trendelenburg position with GT feeding held for aspiration precaution. Dr. Olivo said to recheck BP and if SBP less than 100, give NS 250 cc IV bolus. SBP 96.
--- NOTE | 2016-07-28 11:34 | NUR ---
Pt's BP rechecked after IV bolus of 250 cc NS. BP 133/75 HR 84.
[2016-07-28] MEDS ORDERED: IV NS 0.9% 250 ML IV ONE (12:30)
[2016-07-28] MEDS: HYDROCODONE/APAP 5/325MG 1 EACH TABLET GT SCH ×2 (14:30→21:16)
[2016-07-28] MEDS: HYDROGEL DRESSING 90 GM TUBE TP SCH ×2 (15:00→21:17)
[2016-07-28] MEDS: NEOMY SULF/BACITRAC ZN/POLY 15 GM TUBE TP SCH ×5 (15:00→21:17)
[2016-07-28] MEDS: DAKINS HALF STRENGTH (0.25%) 480 ML BOTTLE TOP SCH ×2 (15:00→21:17)
[2016-07-28] MEDS: NYSTATIN TOP POWDER 15 GM BOTTLE TP SCH ×6 (15:00→21:17)
[2016-07-28] MEDS: HYDROGEN PEROXIDE 480 ML BOTTLE TP SCH ×2 (15:00→21:17)
[2016-07-28] MEDS: ZINC OXIDE 30 GM TUBE TP SCH ×4 (15:00→21:17)
--- NOTE | 2016-07-28 18:16 | NUR ---
RT END OF THE SHIFT REPORT: PT. 46 Y OLD FEMALE REMAIN TRACHED ON VENT WITH NOTED SETTING, ALARMS ARE SET AND FUNCTIONAL, NO DISTRESS NOTED T/O SHIFT, VENT PLUGGED INTO RED OUTLET THX,S GIVEN INLINE AND CESARIO. WELL NO A/R NOTED. EQUAL CHEST RISE NOTED CASTELLANOS'X FOR MINIMAL WHITE SECRETIONS, B/S BILATERALLY CLEAR/RALES ON BASES. NO CHANGES HME CHANGED AMBU BAG REMAIN AT THE BEDSIDE. REPORT WILL BE PASS TO PM SHIFT Addendum: 07/28/16 at 1817 by LEIDA MARROQUIN RT Amended: Links added.
[2016-07-29] MEDS: BLOOD SUGAR DIAGNOSTIC 1 EACH STRIP IN SCH ×4 (00:21→18:07)
[2016-07-29] MEDS: POLYVINYL ALCOHOL 15 ML BOTTLE EACHEYE SCH ×4 (00:21→18:07)
[2016-07-29] MEDS: INSULIN REGULAR, HUMAN 100 UNIT/ML 3 ML VIAL SQ PRN ×3 (00:22→18:14)
[2016-07-29] MEDS: IPRATROPIUM NEB FS 0.5 MG/2.5 ML AMPUL.NEB NEB SCH ×4 (00:34→20:00)
[2016-07-29] MEDS: ALBUTEROL FS 2.5 MG/3 ML VIAL.NEB NEB SCH ×4 (00:34→20:00)
[2016-07-29 02:15] VITALS: BP 144/72
[2016-07-29] MEDS: PIPERACILLIN /TAZOBACTAM 2.25 G in IV D5W 50 ML IV SCH ×3 (05:00→21:00)
[2016-07-29] MEDS: ESOMEPRAZOLE MAG TRIHYDRATE 20 MG CAPSULE.DR GT SCH (05:34)
[2016-07-29 06:17] VITALS: BP 140/74
[2016-07-29 07:45] VITALS: BP 166/77
[2016-07-29] MEDS: hydrALAZINE HCL 25 MG TABLET PO SCH ×2 (09:14→17:00)
[2016-07-29] MEDS: LACTOBACILLUS RHAMNOSUS GG 1 EACH CAP.SPRINK GT SCH ×2 (09:14→17:00)
[2016-07-29] MEDS: CALCITRIOL ORAL SOLUTION 1 MCG/ML GT SCH (09:14)
[2016-07-29] MEDS: PROSOURCE / PROSTAT (PYXIS) 30 ML UDC GT SCH ×3 (09:14→17:00)
[2016-07-29] MEDS: VIT B CMPLX 3/FA/VIT C/BIOTIN 1 TAB TABLET GT SCH (09:14)
[2016-07-29] MEDS: ASCORBIC ACID 500 MG TABLET GT SCH (09:14)
[2016-07-29] MEDS: HEPARIN SODIUM, PORCINE 5000 UNITS/1 ML VIAL SQ SCH ×2 (09:15→21:16)
[2016-07-29] MEDS: INSULIN GLARGINE SQ SCH ×2 (09:17→21:16)
[2016-07-29] MEDS: [UNRECOGNIZED DRUG - OTHER] SQ SCH ×2 (09:17→21:16)
[2016-07-29 14:00] VITALS: BP 138/75
[2016-07-29] MEDS: HYDROCODONE/APAP 5/325MG 1 EACH TABLET GT SCH ×2 (14:00→21:15)
[2016-07-29] MEDS: DAKINS HALF STRENGTH (0.25%) 480 ML BOTTLE TOP SCH ×2 (15:00→21:16)
[2016-07-29] MEDS: HYDROGEL DRESSING 90 GM TUBE TP SCH ×2 (15:00→21:16)
[2016-07-29] MEDS: ZINC OXIDE 30 GM TUBE TP SCH ×4 (15:00→21:17)
[2016-07-29] MEDS: NEOMY SULF/BACITRAC ZN/POLY 15 GM TUBE TP SCH ×6 (15:00→21:17)
[2016-07-29] MEDS: HYDROGEN PEROXIDE 480 ML BOTTLE TP SCH ×2 (15:00→21:16)
[2016-07-29] MEDS: NYSTATIN TOP POWDER 15 GM BOTTLE TP SCH ×6 (15:00→21:17)
--- NOTE | 2016-07-29 16:11 | NUR ---
Vital Signs at 1200 not done, pt was in dialysis.
[2016-07-29 18:00] VITALS: BP 138/76
--- NOTE | 2016-07-29 19:11 | NUR ---
Pt assessed for signs of hypo/hyperglycemia, quiet, calm and no untoward reaction noted.
[2016-07-29 19:31] VITALS: BP 138/76
[2016-07-29] MEDS: METOPROLOL TARTRATE 50 MG TABLET GT SCH (21:18)
[2016-07-30] MEDS: BLOOD SUGAR DIAGNOSTIC 1 EACH STRIP IN SCH ×4 (00:05→18:00)
[2016-07-30] MEDS: INSULIN REGULAR, HUMAN 100 UNIT/ML 3 ML VIAL SQ PRN ×4 (00:05→18:00)
[2016-07-30] MEDS: POLYVINYL ALCOHOL 15 ML BOTTLE EACHEYE SCH ×4 (00:05→18:32)
[2016-07-30 00:13] VITALS: BP 136/64
[2016-07-30] MEDS: ALBUTEROL FS 2.5 MG/3 ML VIAL.NEB NEB SCH ×5 (01:23→19:39)
[2016-07-30] MEDS: IPRATROPIUM NEB FS 0.5 MG/2.5 ML AMPUL.NEB NEB SCH ×5 (01:23→19:39)
[2016-07-30] MEDS: PIPERACILLIN /TAZOBACTAM 2.25 G in IV D5W 50 ML IV SCH ×3 (05:00→20:44)
[2016-07-30] MEDS: ESOMEPRAZOLE MAG TRIHYDRATE 20 MG CAPSULE.DR GT SCH (05:36)
[2016-07-30 06:08] VITALS: BP 138/72
[2016-07-30 07:45] VITALS: BP 168/85
[2016-07-30] MEDS: LACTOBACILLUS RHAMNOSUS GG 1 EACH CAP.SPRINK GT SCH ×2 (09:02→17:59)
[2016-07-30] MEDS: CALCITRIOL ORAL SOLUTION 1 MCG/ML GT SCH (09:02)
[2016-07-30] MEDS: VIT B CMPLX 3/FA/VIT C/BIOTIN 1 TAB TABLET GT SCH (09:02)
[2016-07-30] MEDS: METOPROLOL TARTRATE 50 MG TABLET GT SCH ×2 (09:02→21:05)
[2016-07-30] MEDS: LISINOPRIL (20MG) 20 MG TABLET PO SCH (09:03)
[2016-07-30] MEDS: hydrALAZINE HCL 25 MG TABLET PO SCH ×2 (09:03→17:59)
[2016-07-30] MEDS: ERGOCALCIFEROL (VITAMIN D2) 8,000 UNIT/ML GT SCH (09:03)
[2016-07-30] MEDS: ASCORBIC ACID 500 MG TABLET GT SCH (09:03)
[2016-07-30] MEDS: PROSOURCE / PROSTAT (PYXIS) 30 ML UDC GT SCH ×3 (09:03→17:59)
[2016-07-30] MEDS: INSULIN GLARGINE SQ SCH ×2 (09:04→21:54)
[2016-07-30] MEDS: HEPARIN SODIUM, PORCINE 5000 UNITS/1 ML VIAL SQ SCH ×2 (09:04→21:07)
[2016-07-30] MEDS: [UNRECOGNIZED DRUG - OTHER] SQ SCH ×2 (09:04→21:54)
--- NOTE | 2016-07-30 11:49 | NUR ---
PATIENT RECEIVED TRACHED ON HT70 VENT. VENT SETTING PER MD ORDER. ALARMS VERIFIED AND AUDIBLE. VENT PLUGGED INTO RED OUTLET. SUCTIONED AND LAVAGED MODERATE-LARGE AMOUNT OF THICK PARKINSON SECRETIONS. NO DISTRESS NOTED AT THIS TIME. AMBU BAG AND SPARE TRACH AT [facility].
[2016-07-30] MEDS: HYDROCODONE/APAP 5/325MG 1 EACH TABLET GT SCH ×2 (11:58→21:06)
[2016-07-30] MEDS: CLONIDINE HCL 0.2 MG TABLET GT PRN ×3 (11:59→18:32)
[2016-07-30 12:00] VITALS: BP 151/81
[2016-07-30] MEDS: HYDROGEN PEROXIDE 480 ML BOTTLE TP SCH ×2 (13:00→21:07)
[2016-07-30] MEDS: NEOMY SULF/BACITRAC ZN/POLY 15 GM TUBE TP SCH ×6 (13:00→21:08)
[2016-07-30] MEDS: ZINC OXIDE 30 GM TUBE TP SCH ×4 (13:00→21:08)
[2016-07-30] MEDS: HYDROGEL DRESSING 90 GM TUBE TP SCH ×2 (13:00→21:07)
[2016-07-30] MEDS: NYSTATIN TOP POWDER 15 GM BOTTLE TP SCH ×6 (13:00→21:07)
[2016-07-30] MEDS: DAKINS HALF STRENGTH (0.25%) 480 ML BOTTLE TOP SCH ×2 (13:00→21:07)
[2016-07-30 18:28] VITALS: BP 144/75
[2016-07-30 19:42] VITALS: BP 106/50
[2016-07-31] MEDS: POLYVINYL ALCOHOL 15 ML BOTTLE EACHEYE SCH ×5 (00:16→23:47)
[2016-07-31] MEDS: BLOOD SUGAR DIAGNOSTIC 1 EACH STRIP IN SCH ×5 (00:16→23:47)
[2016-07-31 00:18] VITALS: BP 140/75
[2016-07-31] MEDS: INSULIN REGULAR, HUMAN 100 UNIT/ML 3 ML VIAL SQ PRN ×5 (00:18→23:48)
[2016-07-31] MEDS: RENAL NOVASOURCE 1,000 ML BOTTLE GT PRN (01:34)
[2016-07-31] MEDS: IPRATROPIUM NEB FS 0.5 MG/2.5 ML AMPUL.NEB NEB SCH ×4 (02:22→20:12)
[2016-07-31] MEDS: ALBUTEROL FS 2.5 MG/3 ML VIAL.NEB NEB SCH ×4 (02:22→20:12)
[2016-07-31] MEDS: PIPERACILLIN /TAZOBACTAM 2.25 G in IV D5W 50 ML IV SCH ×3 (05:17→21:03)
[2016-07-31] MEDS: ESOMEPRAZOLE MAG TRIHYDRATE 20 MG CAPSULE.DR GT SCH (05:45)
[2016-07-31 06:27] VITALS: BP 150/70
[2016-07-31 07:45] VITALS: BP_SYST 146; BP_SYST 164; BP_DIAS 76
[2016-07-31] MEDS: VIT B CMPLX 3/FA/VIT C/BIOTIN 1 TAB TABLET GT SCH (08:42)
[2016-07-31] MEDS: CALCITRIOL ORAL SOLUTION 1 MCG/ML GT SCH (08:42)
[2016-07-31] MEDS: LACTOBACILLUS RHAMNOSUS GG 1 EACH CAP.SPRINK GT SCH ×2 (08:42→17:39)
[2016-07-31] MEDS: hydrALAZINE HCL 25 MG TABLET PO SCH ×2 (08:43→17:40)
[2016-07-31] MEDS: HYDROCODONE/APAP 5/325MG 1 EACH TABLET GT SCH ×2 (08:43→21:00)
[2016-07-31] MEDS: PROSOURCE / PROSTAT (PYXIS) 30 ML UDC GT SCH ×3 (08:43→17:39)
[2016-07-31] MEDS: ASCORBIC ACID 500 MG TABLET GT SCH (08:43)
[2016-07-31] MEDS: [UNRECOGNIZED DRUG - OTHER] SQ SCH ×2 (08:44→21:36)
[2016-07-31] MEDS: INSULIN GLARGINE SQ SCH ×2 (08:44→21:36)
[2016-07-31] MEDS: HEPARIN SODIUM, PORCINE 5000 UNITS/1 ML VIAL SQ SCH ×2 (08:44→21:35)
--- NOTE | 2016-07-31 09:14 | NUR ---
Relayed random Gentamicin level 3.9 to [facility] IV pharmacist Rosie. She will call back for Gentamicin dose. Addendum: 08/03/16 at 0925 by GEORGE CLEARY RN Gentamicin level 0.9, not 3.9. IV pharmacist Rosie aware.
[2016-07-31] MEDS: DAKINS HALF STRENGTH (0.25%) 480 ML BOTTLE TOP SCH ×2 (09:27→21:36)
[2016-07-31] MEDS: HYDROGEL DRESSING 90 GM TUBE TP SCH ×2 (09:27→21:36)
[2016-07-31] MEDS: HYDROGEN PEROXIDE 480 ML BOTTLE TP SCH ×2 (09:27→21:36)
[2016-07-31] MEDS: NYSTATIN TOP POWDER 15 GM BOTTLE TP SCH ×6 (09:27→21:36)
[2016-07-31] MEDS: NEOMY SULF/BACITRAC ZN/POLY 15 GM TUBE TP SCH ×6 (09:28→21:36)
[2016-07-31] MEDS: ZINC OXIDE 30 GM TUBE TP SCH ×4 (09:28→21:36)
[2016-07-31 13:50] VITALS: BP 127/72
--- NOTE | 2016-07-31 14:50 | NUR ---
Received order to give Gentamicin 90 mg IV q 96 hours starting tonight, Gentamicin trough on 08/04/16.
--- NOTE | 2016-07-31 16:34 | NUR ---
RT END OF THE SHIFT REPORT: PT. 46 Y OLD FEMALE REMAIN TRACHED ON VENT WITH NOTED SETTING, ALARMS ARE SET AND FUNCTIONAL, NO DISTRESS NOTED T/O SHIFT, VENT PLUGGED INTO RED OUTLET THX,S GIVEN INLINE (1330 TX ABSENT FROM DEPT. NOT GIVEN )AND CESARIO. WELL NO A/R NOTED. EQUAL CHEST RISE NOTED CASTELLANOS'X FOR MINIMAL WHITE SECRETIONS, B/S BILATERALLY CLEAR/RALES ON BASES. NO CHANGES HME CHANGED AMBU BAG REMAIN AT THE BEDSIDE. Addendum: 07/31/16 at 1635 by LEIDA MARROQUIN RT Amended: Links added.
[2016-07-31 18:57] VITALS: BP 146/79
[2016-07-31] MEDS: GENTAMICIN 90 MG in IV D5W 50 ML IV SCH (19:57)
[2016-07-31 20:16] VITALS: BP 161/77
[2016-07-31] MEDS: CLONIDINE HCL 0.2 MG TABLET GT PRN (21:27)
[2016-07-31] MEDS: METOPROLOL TARTRATE 50 MG TABLET GT SCH (22:00)
[2016-08-01] VITALS: BP 133/70
[2016-08-01] MEDS: IPRATROPIUM NEB FS 0.5 MG/2.5 ML AMPUL.NEB NEB SCH ×4 (01:09→19:06)
[2016-08-01] MEDS: ALBUTEROL FS 2.5 MG/3 ML VIAL.NEB NEB SCH ×4 (01:10→19:06)
[2016-08-01] MEDS: PIPERACILLIN /TAZOBACTAM 2.25 G in IV D5W 50 ML IV SCH ×3 (05:01→20:48)
[2016-08-01] MEDS: ESOMEPRAZOLE MAG TRIHYDRATE 20 MG CAPSULE.DR GT SCH (05:34)
[2016-08-01] MEDS: BLOOD SUGAR DIAGNOSTIC 1 EACH STRIP IN SCH ×4 (05:34→23:33)
[2016-08-01] MEDS: POLYVINYL ALCOHOL 15 ML BOTTLE EACHEYE SCH ×4 (05:34→23:33)
[2016-08-01] MEDS: INSULIN REGULAR, HUMAN 100 UNIT/ML 3 ML VIAL SQ PRN ×4 (05:41→23:36)
[2016-08-01 06:20] VITALS: BP 162/72
[2016-08-01] MEDS: CLONIDINE HCL 0.2 MG TABLET GT PRN ×2 (06:21→17:50)
[2016-08-01 07:58] VITALS: BP_SYST 166; BP_SYST 178; BP_DIAS 76; BP_DIAS 81
[2016-08-01] MEDS: CALCITRIOL ORAL SOLUTION 1 MCG/ML GT SCH (08:51)
[2016-08-01] MEDS: LACTOBACILLUS RHAMNOSUS GG 1 EACH CAP.SPRINK GT SCH ×2 (08:51→17:47)
[2016-08-01] MEDS: LISINOPRIL (20MG) 20 MG TABLET PO SCH (08:52)
[2016-08-01] MEDS: ASCORBIC ACID 500 MG TABLET GT SCH (08:52)
[2016-08-01] MEDS: PROSOURCE / PROSTAT (PYXIS) 30 ML UDC GT SCH ×3 (08:52→17:47)
[2016-08-01] MEDS: hydrALAZINE HCL 25 MG TABLET PO SCH ×2 (08:52→17:48)
[2016-08-01] MEDS: HYDROCODONE/APAP 5/325MG 1 EACH TABLET GT SCH ×2 (08:52→21:02)
[2016-08-01] MEDS: VIT B CMPLX 3/FA/VIT C/BIOTIN 1 TAB TABLET GT SCH (08:52)
[2016-08-01] MEDS: METOPROLOL TARTRATE 50 MG TABLET GT SCH ×2 (08:52→22:48)
[2016-08-01] MEDS: HEPARIN SODIUM, PORCINE 5000 UNITS/1 ML VIAL SQ SCH ×2 (08:53→20:17)
[2016-08-01] MEDS: [UNRECOGNIZED DRUG - OTHER] SQ SCH ×2 (08:54→20:22)
[2016-08-01] MEDS: INSULIN GLARGINE SQ SCH ×2 (08:54→20:22)
[2016-08-01] MEDS: NYSTATIN TOP POWDER 15 GM BOTTLE TP SCH ×6 (09:30→20:28)
[2016-08-01] MEDS: HYDROGEL DRESSING 90 GM TUBE TP SCH ×2 (09:30→20:28)
[2016-08-01] MEDS: NEOMY SULF/BACITRAC ZN/POLY 15 GM TUBE TP SCH ×6 (09:30→20:29)
[2016-08-01] MEDS: HYDROGEN PEROXIDE 480 ML BOTTLE TP SCH ×2 (09:30→20:28)
[2016-08-01] MEDS: DAKINS HALF STRENGTH (0.25%) 480 ML BOTTLE TOP SCH ×2 (09:30→20:28)
[2016-08-01] MEDS: ZINC OXIDE 30 GM TUBE TP SCH ×4 (09:30→20:29)
[2016-08-01 12:00] VITALS: BP 148/75
[2016-08-01 19:24] VITALS: BP 166/89
[2016-08-02] VITALS: BP 172/82
[2016-08-02] MEDS: ALBUTEROL FS 2.5 MG/3 ML VIAL.NEB NEB SCH ×4 (01:45→19:46)
[2016-08-02] MEDS: IPRATROPIUM NEB FS 0.5 MG/2.5 ML AMPUL.NEB NEB SCH ×4 (01:45→19:46)
[2016-08-02] MEDS: PIPERACILLIN /TAZOBACTAM 2.25 G in IV D5W 50 ML IV SCH ×3 (05:28→21:00)
[2016-08-02] MEDS: POLYVINYL ALCOHOL 15 ML BOTTLE EACHEYE SCH ×3 (05:37→17:50)
[2016-08-02] MEDS: ESOMEPRAZOLE MAG TRIHYDRATE 20 MG CAPSULE.DR GT SCH (05:38)
[2016-08-02] MEDS: BLOOD SUGAR DIAGNOSTIC 1 EACH STRIP IN SCH ×4 (05:38→23:38)
[2016-08-02] MEDS: INSULIN REGULAR, HUMAN 100 UNIT/ML 3 ML VIAL SQ PRN ×3 (05:40→23:39)
[2016-08-02] MEDS: CLONIDINE HCL 0.2 MG TABLET GT PRN ×2 (05:45→20:40)
[2016-08-02 06:00] VITALS: BP 165/74
[2016-08-02 08:00] VITALS: BP 160/77
[2016-08-02] MEDS: VIT B CMPLX 3/FA/VIT C/BIOTIN 1 TAB TABLET GT SCH (08:42)
[2016-08-02] MEDS: ASCORBIC ACID 500 MG TABLET GT SCH (08:42)
[2016-08-02] MEDS: hydrALAZINE HCL 25 MG TABLET PO SCH ×2 (08:42→17:50)
[2016-08-02] MEDS: HYDROCODONE/APAP 5/325MG 1 EACH TABLET GT SCH ×2 (08:42→21:00)
[2016-08-02] MEDS: CALCITRIOL ORAL SOLUTION 1 MCG/ML GT SCH (08:42)
[2016-08-02] MEDS: LACTOBACILLUS RHAMNOSUS GG 1 EACH CAP.SPRINK GT SCH ×2 (08:42→17:49)
[2016-08-02] MEDS: PROSOURCE / PROSTAT (PYXIS) 30 ML UDC GT SCH ×3 (08:42→17:50)
[2016-08-02] MEDS: HEPARIN SODIUM, PORCINE 5000 UNITS/1 ML VIAL SQ SCH ×2 (08:43→20:54)
[2016-08-02] MEDS: [UNRECOGNIZED DRUG - OTHER] SQ SCH ×2 (08:44→21:42)
[2016-08-02] MEDS: INSULIN GLARGINE SQ SCH ×2 (08:44→21:42)
[2016-08-02] MEDS: HYDROGEL DRESSING 90 GM TUBE TP SCH ×2 (09:15→21:00)
[2016-08-02] MEDS: HYDROGEN PEROXIDE 480 ML BOTTLE TP SCH ×2 (09:15→21:00)
[2016-08-02] MEDS: NEOMY SULF/BACITRAC ZN/POLY 15 GM TUBE TP SCH ×6 (09:15→21:00)
[2016-08-02] MEDS: DAKINS HALF STRENGTH (0.25%) 480 ML BOTTLE TOP SCH ×2 (09:15→21:00)
[2016-08-02] MEDS: NYSTATIN TOP POWDER 15 GM BOTTLE TP SCH ×6 (09:15→21:00)
[2016-08-02] MEDS: ZINC OXIDE 30 GM TUBE TP SCH ×4 (09:15→21:00)
[2016-08-02 14:20] VITALS: BP 126/73
[2016-08-02 18:23] VITALS: BP 167/87
[2016-08-02 19:57] VITALS: BP_SYST 167; BP_SYST 95; BP_DIAS 45; BP_DIAS 80
[2016-08-02] MEDS: RENAL NOVASOURCE 1,000 ML BOTTLE GT PRN (20:50)
[2016-08-02] MEDS: METOPROLOL TARTRATE 50 MG TABLET GT SCH (22:00)
[2016-08-03] VITALS (7 sets, daily range): BP systolic 137–177; BP diastolic 58–90
[2016-08-03] MEDS: IPRATROPIUM NEB FS 0.5 MG/2.5 ML AMPUL.NEB NEB SCH ×4 (01:54→19:52)
[2016-08-03] MEDS: ALBUTEROL FS 2.5 MG/3 ML VIAL.NEB NEB SCH ×4 (01:54→19:52)
--- NOTE | 2016-08-03 03:00 | NUR ---
Prn Catapres not given due bp 145/89 hr 86. Will monitor.
[2016-08-03] MEDS: PIPERACILLIN /TAZOBACTAM 2.25 G in IV D5W 50 ML IV SCH ×3 (05:08→21:00)
[2016-08-03] MEDS: ESOMEPRAZOLE MAG TRIHYDRATE 20 MG CAPSULE.DR GT SCH (05:12)
[2016-08-03] MEDS: POLYVINYL ALCOHOL 15 ML BOTTLE EACHEYE SCH ×5 (05:13→23:57)
[2016-08-03] MEDS: BLOOD SUGAR DIAGNOSTIC 1 EACH STRIP IN SCH ×4 (05:55→23:57)
[2016-08-03] MEDS: CLONIDINE HCL 0.2 MG TABLET GT PRN (05:56)
[2016-08-03] MEDS: ZINC OXIDE 30 GM TUBE TP SCH ×4 (09:00→21:21)
[2016-08-03] MEDS: HYDROGEN PEROXIDE 480 ML BOTTLE TP SCH ×2 (09:00→21:20)
[2016-08-03] MEDS: NYSTATIN TOP POWDER 15 GM BOTTLE TP SCH ×6 (09:00→21:21)
[2016-08-03] MEDS: DAKINS HALF STRENGTH (0.25%) 480 ML BOTTLE TOP SCH ×2 (09:00→21:20)
[2016-08-03] MEDS: HYDROGEL DRESSING 90 GM TUBE TP SCH ×2 (09:00→21:20)
[2016-08-03] MEDS: NEOMY SULF/BACITRAC ZN/POLY 15 GM TUBE TP SCH ×6 (09:00→21:21)
[2016-08-03] MEDS: METOPROLOL TARTRATE 50 MG TABLET GT SCH ×2 (09:13→21:21)
[2016-08-03] MEDS: LACTOBACILLUS RHAMNOSUS GG 1 EACH CAP.SPRINK GT SCH ×2 (09:13→16:13)
[2016-08-03] MEDS: PROSOURCE / PROSTAT (PYXIS) 30 ML UDC GT SCH ×3 (09:13→16:13)
[2016-08-03] MEDS: CALCITRIOL ORAL SOLUTION 1 MCG/ML GT SCH (09:13)
[2016-08-03] MEDS: hydrALAZINE HCL 25 MG TABLET PO SCH ×2 (09:14→17:28)
[2016-08-03] MEDS: VIT B CMPLX 3/FA/VIT C/BIOTIN 1 TAB TABLET GT SCH (09:14)
[2016-08-03] MEDS: LISINOPRIL (20MG) 20 MG TABLET PO SCH (09:14)
[2016-08-03] MEDS: ASCORBIC ACID 500 MG TABLET GT SCH (09:14)
[2016-08-03] MEDS: [UNRECOGNIZED DRUG - OTHER] SQ SCH ×2 (09:51→21:20)
[2016-08-03] MEDS: HEPARIN SODIUM, PORCINE 5000 UNITS/1 ML VIAL SQ SCH ×2 (09:51→21:20)
[2016-08-03] MEDS: INSULIN GLARGINE SQ SCH ×2 (09:51→21:20)
[2016-08-03] MEDS: INSULIN REGULAR, HUMAN 100 UNIT/ML 3 ML VIAL SQ PRN ×3 (12:08→23:58)
[2016-08-03] MEDS: HYDROCODONE/APAP 5/325MG 1 EACH TABLET GT SCH ×2 (14:00→21:19)
[2016-08-04 00:03] VITALS: BP 148/69
[2016-08-04] MEDS: IPRATROPIUM NEB FS 0.5 MG/2.5 ML AMPUL.NEB NEB SCH ×4 (01:10→20:12)
[2016-08-04] MEDS: ALBUTEROL FS 2.5 MG/3 ML VIAL.NEB NEB SCH ×4 (01:10→20:12)
[2016-08-04] MEDS: PIPERACILLIN /TAZOBACTAM 2.25 G in IV D5W 50 ML IV SCH ×3 (05:00→21:20)
[2016-08-04] MEDS: POLYVINYL ALCOHOL 15 ML BOTTLE EACHEYE SCH ×4 (05:18→23:42)
[2016-08-04] MEDS: ESOMEPRAZOLE MAG TRIHYDRATE 20 MG CAPSULE.DR GT SCH (05:18)
[2016-08-04] MEDS: BLOOD SUGAR DIAGNOSTIC 1 EACH STRIP IN SCH ×4 (05:18→23:42)
[2016-08-04] MEDS: INSULIN REGULAR, HUMAN 100 UNIT/ML 3 ML VIAL SQ PRN ×4 (05:20→23:43)
[2016-08-04 06:07] VITALS: BP 144/72
[2016-08-04 08:20] VITALS: BP 112/49
[2016-08-04] MEDS: LACTOBACILLUS RHAMNOSUS GG 1 EACH CAP.SPRINK GT SCH ×2 (09:43→17:00)
[2016-08-04] MEDS: VIT B CMPLX 3/FA/VIT C/BIOTIN 1 TAB TABLET GT SCH (09:43)
[2016-08-04] MEDS: METOPROLOL TARTRATE 50 MG TABLET GT SCH ×2 (09:43→21:08)
[2016-08-04] MEDS: PROSOURCE / PROSTAT (PYXIS) 30 ML UDC GT SCH ×3 (09:43→17:00)
[2016-08-04] MEDS: CALCITRIOL ORAL SOLUTION 1 MCG/ML GT SCH (09:43)
[2016-08-04] MEDS: hydrALAZINE HCL 25 MG TABLET PO SCH ×2 (09:44→17:00)
[2016-08-04] MEDS: ASCORBIC ACID 500 MG TABLET GT SCH (09:44)
[2016-08-04] MEDS: LISINOPRIL (20MG) 20 MG TABLET PO SCH (09:45)
[2016-08-04] MEDS: HEPARIN SODIUM, PORCINE 5000 UNITS/1 ML VIAL SQ SCH ×2 (09:45→21:06)
[2016-08-04] MEDS: [UNRECOGNIZED DRUG - OTHER] SQ SCH ×2 (09:46→21:07)
[2016-08-04] MEDS: INSULIN GLARGINE SQ SCH ×2 (09:46→21:07)
[2016-08-04] MEDS: HYDROCODONE/APAP 5/325MG 1 EACH TABLET GT SCH ×2 (10:00→21:06)
[2016-08-04] MEDS: DAKINS HALF STRENGTH (0.25%) 480 ML BOTTLE TOP SCH ×2 (10:30→21:07)
[2016-08-04] MEDS: NEOMY SULF/BACITRAC ZN/POLY 15 GM TUBE TP SCH ×6 (10:30→21:08)
[2016-08-04] MEDS: NYSTATIN TOP POWDER 15 GM BOTTLE TP SCH ×6 (10:30→21:07)
[2016-08-04] MEDS: HYDROGEN PEROXIDE 480 ML BOTTLE TP SCH ×2 (10:30→21:07)
[2016-08-04] MEDS: HYDROGEL DRESSING 90 GM TUBE TP SCH ×2 (10:30→21:07)
[2016-08-04] MEDS: ZINC OXIDE 30 GM TUBE TP SCH ×4 (10:30→21:08)
[2016-08-04 12:00] VITALS: BP 132/70
--- NOTE | 2016-08-04 13:51 | NUR ---
TRACH CARE DONE WITH NO PROBLEMS.
--- NOTE | 2016-08-04 15:00 | NUR ---
MONTHLY TRACH CHANGE DONE WITH NO REDNESS OR BLEEDING NOTED.
[2016-08-04 18:00] VITALS: BP 130/72
--- NOTE | 2016-08-04 19:27 | NUR ---
THOMAS Ramsay came earlier. Notified her that pt had a low grade fever today. Pt still on Gentamicin and Zosyn. No new order.
[2016-08-04 19:44] VITALS: BP 154/74
[2016-08-04] MEDS: GENTAMICIN 90 MG in IV D5W 50 ML IV SCH (20:00)
--- NOTE | 2016-08-04 20:00 | NUR ---
RN NOTES Received gentamicin trough level of 0.6, faxed to [facility] and called and spoke to pharmacist and relayed level. Per pharmacist ok to give Getamicin dose scheduled and it would complete her therapy. Last dose given tonight as ordered. No adverse reaction noted.
[2016-08-05] VITALS: BP 136/74
[2016-08-05] MEDS: IPRATROPIUM NEB FS 0.5 MG/2.5 ML AMPUL.NEB NEB SCH ×4 (01:02→20:28)
[2016-08-05] MEDS: ALBUTEROL FS 2.5 MG/3 ML VIAL.NEB NEB SCH ×4 (01:03→20:28)
[2016-08-05] MEDS: PIPERACILLIN /TAZOBACTAM 2.25 G in IV D5W 50 ML IV SCH ×3 (05:00→21:30)
[2016-08-05] MEDS: POLYVINYL ALCOHOL 15 ML BOTTLE EACHEYE SCH ×4 (05:29→23:44)
[2016-08-05] MEDS: BLOOD SUGAR DIAGNOSTIC 1 EACH STRIP IN SCH ×4 (05:29→23:44)
[2016-08-05] MEDS: ESOMEPRAZOLE MAG TRIHYDRATE 20 MG CAPSULE.DR GT SCH (05:29)
[2016-08-05] MEDS: INSULIN REGULAR, HUMAN 100 UNIT/ML 3 ML VIAL SQ PRN ×3 (05:30→23:45)
[2016-08-05 06:02] VITALS: BP 142/79
[2016-08-05 07:55] VITALS: BP 141/69
[2016-08-05] MEDS: hydrALAZINE HCL 25 MG TABLET PO SCH ×2 (08:36→17:45)
[2016-08-05] MEDS: ASCORBIC ACID 500 MG TABLET GT SCH (08:36)
[2016-08-05] MEDS: VIT B CMPLX 3/FA/VIT C/BIOTIN 1 TAB TABLET GT SCH (08:36)
[2016-08-05] MEDS: LACTOBACILLUS RHAMNOSUS GG 1 EACH CAP.SPRINK GT SCH ×2 (08:36→17:44)
[2016-08-05] MEDS: PROSOURCE / PROSTAT (PYXIS) 30 ML UDC GT SCH ×3 (08:36→17:44)
[2016-08-05] MEDS: CALCITRIOL ORAL SOLUTION 1 MCG/ML GT SCH (08:36)
[2016-08-05] MEDS: HEPARIN SODIUM, PORCINE 5000 UNITS/1 ML VIAL SQ SCH ×2 (08:37→21:02)
[2016-08-05] MEDS: [UNRECOGNIZED DRUG - OTHER] SQ SCH ×2 (08:37→21:03)
[2016-08-05] MEDS: INSULIN GLARGINE SQ SCH ×2 (08:37→21:03)
--- NOTE | 2016-08-05 09:00 | NUR ---
Seen and examined by Dr Morejon with no new order
--- NOTE | 2016-08-05 13:45 | NUR ---
Resident cameback from dialysis in stable condition.V/S stable BP109/66 HR 89 RR 18 Temp 98.
[2016-08-05 14:30] VITALS: BP 109/66
[2016-08-05] MEDS: HYDROCODONE/APAP 5/325MG 1 EACH TABLET GT SCH ×2 (14:30→21:02)
[2016-08-05] MEDS: ZINC OXIDE 30 GM TUBE TP SCH ×4 (15:30→21:04)
[2016-08-05] MEDS: NYSTATIN TOP POWDER 15 GM BOTTLE TP SCH ×6 (15:30→21:03)
[2016-08-05] MEDS: HYDROGEL DRESSING 90 GM TUBE TP SCH ×2 (15:30→21:03)
[2016-08-05] MEDS: DAKINS HALF STRENGTH (0.25%) 480 ML BOTTLE TOP SCH ×2 (15:30→21:03)
[2016-08-05] MEDS: NEOMY SULF/BACITRAC ZN/POLY 15 GM TUBE TP SCH ×4 (15:30→21:03)
[2016-08-05] MEDS: HYDROGEN PEROXIDE 480 ML BOTTLE TP SCH ×2 (15:30→21:03)
[2016-08-05 18:00] VITALS: BP 112/66
[2016-08-05 19:51] VITALS: BP 144/69
[2016-08-05] MEDS: METOPROLOL TARTRATE 50 MG TABLET GT SCH (21:04)
[2016-08-06 00:14] VITALS: BP 136/69
[2016-08-06] MEDS: ALBUTEROL FS 2.5 MG/3 ML VIAL.NEB NEB SCH ×4 (02:26→20:22)
[2016-08-06] MEDS: IPRATROPIUM NEB FS 0.5 MG/2.5 ML AMPUL.NEB NEB SCH ×4 (02:26→20:22)
[2016-08-06] MEDS: ESOMEPRAZOLE MAG TRIHYDRATE 20 MG CAPSULE.DR GT SCH (05:26)
[2016-08-06] MEDS: POLYVINYL ALCOHOL 15 ML BOTTLE EACHEYE SCH ×4 (05:26→23:26)
[2016-08-06] MEDS: BLOOD SUGAR DIAGNOSTIC 1 EACH STRIP IN SCH ×4 (05:26→23:26)
[2016-08-06] MEDS: INSULIN REGULAR, HUMAN 100 UNIT/ML 3 ML VIAL SQ PRN ×4 (05:27→23:28)
[2016-08-06 06:20] VITALS: BP 132/74
[2016-08-06 07:59] VITALS: BP 134/69
[2016-08-06] MEDS: CALCITRIOL ORAL SOLUTION 1 MCG/ML GT SCH (09:14)
[2016-08-06] MEDS: LACTOBACILLUS RHAMNOSUS GG 1 EACH CAP.SPRINK GT SCH ×2 (09:14→17:28)
[2016-08-06] MEDS: METOPROLOL TARTRATE 50 MG TABLET GT SCH ×2 (09:16→21:42)
[2016-08-06] MEDS: hydrALAZINE HCL 25 MG TABLET PO SCH ×2 (09:17→17:28)
[2016-08-06] MEDS: ERGOCALCIFEROL (VITAMIN D2) 8,000 UNIT/ML GT SCH (09:17)
[2016-08-06] MEDS: PROSOURCE / PROSTAT (PYXIS) 30 ML UDC GT SCH ×3 (09:17→17:28)
[2016-08-06] MEDS: VIT B CMPLX 3/FA/VIT C/BIOTIN 1 TAB TABLET GT SCH (09:17)
[2016-08-06] MEDS: ASCORBIC ACID 500 MG TABLET GT SCH (09:17)
[2016-08-06] MEDS: LISINOPRIL (20MG) 20 MG TABLET PO SCH (09:18)
[2016-08-06] MEDS: HEPARIN SODIUM, PORCINE 5000 UNITS/1 ML VIAL SQ SCH ×2 (09:19→21:40)
[2016-08-06] MEDS: [UNRECOGNIZED DRUG - OTHER] SQ SCH ×2 (09:20→21:40)
[2016-08-06] MEDS: INSULIN GLARGINE SQ SCH ×2 (09:20→21:40)
[2016-08-06] MEDS: CLONIDINE HCL 0.2 MG TABLET GT PRN ×2 (11:33→17:30)
[2016-08-06 12:00] VITALS: BP 149/69
[2016-08-06] MEDS: HYDROCODONE/APAP 5/325MG 1 EACH TABLET GT SCH ×2 (12:46→21:39)
[2016-08-06] MEDS: PIPERACILLIN /TAZOBACTAM 2.25 G in IV D5W 50 ML IV SCH (13:00)
[2016-08-06] MEDS: ZINC OXIDE 30 GM TUBE TP SCH ×4 (13:46→21:41)
[2016-08-06] MEDS: HYDROGEL DRESSING 90 GM TUBE TP SCH ×2 (13:46→21:40)
[2016-08-06] MEDS: HYDROGEN PEROXIDE 480 ML BOTTLE TP SCH ×2 (13:46→21:41)
[2016-08-06] MEDS: DAKINS HALF STRENGTH (0.25%) 480 ML BOTTLE TOP SCH ×2 (13:46→21:40)
[2016-08-06] MEDS: NEOMY SULF/BACITRAC ZN/POLY 15 GM TUBE TP SCH ×2 (13:46→21:41)
[2016-08-06] MEDS: NYSTATIN TOP POWDER 15 GM BOTTLE TP SCH ×6 (13:46→21:41)
[2016-08-06 18:44] VITALS: BP 158/69
[2016-08-06 20:00] VITALS: BP 168/65
[2016-08-07 00:36] VITALS: BP 159/77
[2016-08-07] MEDS: ALBUTEROL FS 2.5 MG/3 ML VIAL.NEB NEB SCH ×4 (01:06→19:26)
[2016-08-07] MEDS: IPRATROPIUM NEB FS 0.5 MG/2.5 ML AMPUL.NEB NEB SCH ×4 (01:06→19:26)
[2016-08-07] MEDS: RENAL NOVASOURCE 1,000 ML BOTTLE GT PRN (01:25)
[2016-08-07] MEDS: BLOOD SUGAR DIAGNOSTIC 1 EACH STRIP IN SCH ×4 (06:02→23:43)
[2016-08-07] MEDS: ESOMEPRAZOLE MAG TRIHYDRATE 20 MG CAPSULE.DR GT SCH (06:02)
[2016-08-07] MEDS: POLYVINYL ALCOHOL 15 ML BOTTLE EACHEYE SCH ×4 (06:02→23:43)
[2016-08-07] MEDS: INSULIN REGULAR, HUMAN 100 UNIT/ML 3 ML VIAL SQ PRN ×4 (06:03→23:44)
[2016-08-07 06:04] VITALS: BP 156/73
[2016-08-07 07:48] VITALS: BP 165/71
[2016-08-07] MEDS: PROSOURCE / PROSTAT (PYXIS) 30 ML UDC GT SCH ×3 (08:56→17:18)
[2016-08-07] MEDS: hydrALAZINE HCL 25 MG TABLET PO SCH ×2 (08:56→17:19)
[2016-08-07] MEDS: HYDROCODONE/APAP 5/325MG 1 EACH TABLET GT SCH ×2 (08:56→21:17)
[2016-08-07] MEDS: VIT B CMPLX 3/FA/VIT C/BIOTIN 1 TAB TABLET GT SCH (08:56)
[2016-08-07] MEDS: CALCITRIOL ORAL SOLUTION 1 MCG/ML GT SCH (08:56)
[2016-08-07] MEDS: ASCORBIC ACID 500 MG TABLET GT SCH (08:56)
[2016-08-07] MEDS: LACTOBACILLUS RHAMNOSUS GG 1 EACH CAP.SPRINK GT SCH ×2 (08:56→17:18)
[2016-08-07] MEDS: HEPARIN SODIUM, PORCINE 5000 UNITS/1 ML VIAL SQ SCH ×2 (08:57→21:18)
[2016-08-07] MEDS: [UNRECOGNIZED DRUG - OTHER] SQ SCH ×2 (08:58→21:20)
[2016-08-07] MEDS: INSULIN GLARGINE SQ SCH ×2 (08:58→21:20)
[2016-08-07] MEDS: NEOMY SULF/BACITRAC ZN/POLY 15 GM TUBE TP SCH ×2 (09:15→21:21)
[2016-08-07] MEDS: NYSTATIN TOP POWDER 15 GM BOTTLE TP SCH ×6 (09:15→21:21)
[2016-08-07] MEDS: ZINC OXIDE 30 GM TUBE TP SCH ×4 (09:15→21:21)
[2016-08-07] MEDS: HYDROGEL DRESSING 90 GM TUBE TP SCH ×2 (09:15→21:20)
[2016-08-07] MEDS: DAKINS HALF STRENGTH (0.25%) 480 ML BOTTLE TOP SCH ×2 (09:15→21:20)
[2016-08-07] MEDS: HYDROGEN PEROXIDE 480 ML BOTTLE TP SCH ×2 (09:30→21:20)
[2016-08-07 14:00] VITALS: BP 129/71
--- NOTE | 2016-08-07 15:42 | NUR ---
Pt tolerated current vent settings well. Vent is plugged into a red outlet, alarms are set and audible. Ambu bag at bedside. Addendum: 08/07/16 at 1542 by ANNMARIE CARVER RT Amended: Links added.
[2016-08-07 19:19] VITALS: BP 163/79
[2016-08-07 19:42] VITALS: BP 162/84
[2016-08-07] MEDS: METOPROLOL TARTRATE 50 MG TABLET GT SCH (21:21)
[2016-08-07] MEDS: CLONIDINE HCL 0.2 MG TABLET GT PRN (23:46)
[2016-08-08] VITALS (8 sets, daily range): BP systolic 112–191; BP diastolic 57–83
[2016-08-08] MEDS: RENAL NOVASOURCE 1,000 ML BOTTLE GT PRN ×2 (00:49→22:59)
[2016-08-08] MEDS: IPRATROPIUM NEB FS 0.5 MG/2.5 ML AMPUL.NEB NEB SCH ×4 (01:33→20:03)
[2016-08-08] MEDS: ALBUTEROL FS 2.5 MG/3 ML VIAL.NEB NEB SCH ×4 (01:34→20:03)
[2016-08-08] MEDS: CLONIDINE HCL 0.2 MG TABLET GT PRN ×3 (05:10→12:08)
[2016-08-08] MEDS: POLYVINYL ALCOHOL 15 ML BOTTLE EACHEYE SCH ×4 (05:38→23:56)
[2016-08-08] MEDS: ESOMEPRAZOLE MAG TRIHYDRATE 20 MG CAPSULE.DR GT SCH (05:38)
[2016-08-08] MEDS: BLOOD SUGAR DIAGNOSTIC 1 EACH STRIP IN SCH ×4 (05:38→23:56)
[2016-08-08] MEDS: INSULIN REGULAR, HUMAN 100 UNIT/ML 3 ML VIAL SQ PRN ×4 (05:39→23:57)
[2016-08-08] MEDS: HYDROCODONE/APAP 5/325MG 1 EACH TABLET GT SCH ×2 (09:07→20:36)
[2016-08-08] MEDS: CALCITRIOL ORAL SOLUTION 1 MCG/ML GT SCH (09:07)
[2016-08-08] MEDS: METOPROLOL TARTRATE 50 MG TABLET GT SCH ×2 (09:07→22:08)
[2016-08-08] MEDS: ASCORBIC ACID 500 MG TABLET GT SCH (09:07)
[2016-08-08] MEDS: LACTOBACILLUS RHAMNOSUS GG 1 EACH CAP.SPRINK GT SCH ×2 (09:07→17:44)
[2016-08-08] MEDS: PROSOURCE / PROSTAT (PYXIS) 30 ML UDC GT SCH ×3 (09:07→17:44)
[2016-08-08] MEDS: VIT B CMPLX 3/FA/VIT C/BIOTIN 1 TAB TABLET GT SCH (09:07)
[2016-08-08] MEDS: hydrALAZINE HCL 25 MG TABLET PO SCH ×2 (09:08→17:45)
[2016-08-08] MEDS: HEPARIN SODIUM, PORCINE 5000 UNITS/1 ML VIAL SQ SCH ×2 (09:08→20:37)
[2016-08-08] MEDS: LISINOPRIL (20MG) 20 MG TABLET PO SCH (09:08)
[2016-08-08] MEDS: [UNRECOGNIZED DRUG - OTHER] SQ SCH ×2 (09:09→20:46)
[2016-08-08] MEDS: INSULIN GLARGINE SQ SCH ×2 (09:09→20:46)
[2016-08-08] MEDS: HYDROGEL DRESSING 90 GM TUBE TP SCH ×2 (09:50→20:37)
[2016-08-08] MEDS: NEOMY SULF/BACITRAC ZN/POLY 15 GM TUBE TP SCH ×2 (09:50→20:38)
[2016-08-08] MEDS: NYSTATIN TOP POWDER 15 GM BOTTLE TP SCH ×6 (09:50→20:38)
[2016-08-08] MEDS: HYDROGEN PEROXIDE 480 ML BOTTLE TP SCH ×2 (09:50→20:37)
[2016-08-08] MEDS: DAKINS HALF STRENGTH (0.25%) 480 ML BOTTLE TOP SCH ×2 (09:50→20:37)
[2016-08-08] MEDS: ZINC OXIDE 30 GM TUBE TP SCH ×4 (09:50→20:38)
[2016-08-09] MEDS: IPRATROPIUM NEB FS 0.5 MG/2.5 ML AMPUL.NEB NEB SCH ×4 (00:30→20:16)
[2016-08-09] MEDS: ALBUTEROL FS 2.5 MG/3 ML VIAL.NEB NEB SCH ×4 (00:30→20:16)
[2016-08-09 00:40] VITALS: BP 150/50
[2016-08-09] MEDS: ESOMEPRAZOLE MAG TRIHYDRATE 20 MG CAPSULE.DR GT SCH (05:34)
[2016-08-09] MEDS: BLOOD SUGAR DIAGNOSTIC 1 EACH STRIP IN SCH ×3 (05:34→18:30)
[2016-08-09] MEDS: POLYVINYL ALCOHOL 15 ML BOTTLE EACHEYE SCH ×3 (05:34→18:30)
[2016-08-09] MEDS: INSULIN REGULAR, HUMAN 100 UNIT/ML 3 ML VIAL SQ PRN ×2 (05:36→18:31)
[2016-08-09 06:12] VITALS: BP 163/86
[2016-08-09] MEDS: CLONIDINE HCL 0.2 MG TABLET GT PRN (06:22)
[2016-08-09] MEDS: PROSOURCE / PROSTAT (PYXIS) 30 ML UDC GT SCH ×3 (08:16→17:00)
[2016-08-09] MEDS: ASCORBIC ACID 500 MG TABLET GT SCH (08:16)
[2016-08-09] MEDS: HYDROCODONE/APAP 5/325MG 1 EACH TABLET GT SCH ×2 (08:16→21:17)
[2016-08-09] MEDS: CALCITRIOL ORAL SOLUTION 1 MCG/ML GT SCH (08:16)
[2016-08-09] MEDS: LACTOBACILLUS RHAMNOSUS GG 1 EACH CAP.SPRINK GT SCH ×2 (08:16→17:00)
[2016-08-09] MEDS: VIT B CMPLX 3/FA/VIT C/BIOTIN 1 TAB TABLET GT SCH (08:16)
[2016-08-09] MEDS: hydrALAZINE HCL 25 MG TABLET PO SCH ×2 (08:17→17:00)
[2016-08-09] MEDS: HEPARIN SODIUM, PORCINE 5000 UNITS/1 ML VIAL SQ SCH ×2 (08:17→21:10)
[2016-08-09] MEDS: INSULIN GLARGINE SQ SCH ×2 (08:18→21:10)
[2016-08-09] MEDS: [UNRECOGNIZED DRUG - OTHER] SQ SCH ×2 (08:18→21:10)
[2016-08-09] MEDS: ZINC OXIDE 30 GM TUBE TP SCH ×4 (09:30→21:11)
[2016-08-09] MEDS: HYDROGEN PEROXIDE 480 ML BOTTLE TP SCH ×2 (09:30→21:10)
[2016-08-09] MEDS: HYDROGEL DRESSING 90 GM TUBE TP SCH ×2 (09:30→21:10)
[2016-08-09] MEDS: NYSTATIN TOP POWDER 15 GM BOTTLE TP SCH ×6 (09:30→21:11)
[2016-08-09] MEDS: NEOMY SULF/BACITRAC ZN/POLY 15 GM TUBE TP SCH ×2 (09:30→21:11)
[2016-08-09] MEDS: DAKINS HALF STRENGTH (0.25%) 480 ML BOTTLE TOP SCH ×2 (09:30→21:10)
--- NOTE | 2016-08-09 14:33 | NUR ---
Resident returned back from outpatient dialysis condition stable. AV fistula in the R wrist with dressing intact, no bleeding. Obtain order from THOMAS Ramsay ID to reculture sacral wound for VRE clearance.
[2016-08-09 19:00] VITALS: BP 159/76
[2016-08-09 19:46] VITALS: BP 152/81
[2016-08-09] MEDS: METOPROLOL TARTRATE 50 MG TABLET GT SCH (21:11)
[2016-08-10 00:01] VITALS: BP 170/87
[2016-08-10] MEDS: BLOOD SUGAR DIAGNOSTIC 1 EACH STRIP IN SCH ×5 (00:13→23:37)
[2016-08-10] MEDS: POLYVINYL ALCOHOL 15 ML BOTTLE EACHEYE SCH ×5 (00:13→23:37)
[2016-08-10] MEDS: INSULIN REGULAR, HUMAN 100 UNIT/ML 3 ML VIAL SQ PRN ×5 (00:14→23:38)
[2016-08-10] MEDS: CLONIDINE HCL 0.2 MG TABLET GT PRN (00:15)
[2016-08-10] MEDS: RENAL NOVASOURCE 1,000 ML BOTTLE GT PRN (00:16)
[2016-08-10 01:21] VITALS: BP 158/82
[2016-08-10] MEDS: ALBUTEROL FS 2.5 MG/3 ML VIAL.NEB NEB SCH ×4 (02:13→20:09)
[2016-08-10] MEDS: IPRATROPIUM NEB FS 0.5 MG/2.5 ML AMPUL.NEB NEB SCH ×4 (02:13→20:09)
[2016-08-10] MEDS: ESOMEPRAZOLE MAG TRIHYDRATE 20 MG CAPSULE.DR GT SCH (05:25)
[2016-08-10 06:15] VITALS: BP 153/87
[2016-08-10] MEDS: INSULIN GLARGINE SQ SCH ×2 (09:00→20:20)
[2016-08-10] MEDS: ZINC OXIDE 30 GM TUBE TP SCH ×4 (09:00→20:21)
[2016-08-10] MEDS: NEOMY SULF/BACITRAC ZN/POLY 15 GM TUBE TP SCH ×2 (09:00→20:21)
[2016-08-10] MEDS: HYDROGEL DRESSING 90 GM TUBE TP SCH ×2 (09:00→20:21)
[2016-08-10] MEDS: METOPROLOL TARTRATE 50 MG TABLET GT SCH ×2 (09:00→21:41)
[2016-08-10] MEDS: LACTOBACILLUS RHAMNOSUS GG 1 EACH CAP.SPRINK GT SCH ×2 (09:00→16:56)
[2016-08-10] MEDS: VIT B CMPLX 3/FA/VIT C/BIOTIN 1 TAB TABLET GT SCH (09:00)
[2016-08-10] MEDS: NYSTATIN TOP POWDER 15 GM BOTTLE TP SCH ×6 (09:00→20:21)
[2016-08-10] MEDS: LISINOPRIL (20MG) 20 MG TABLET PO SCH (09:00)
[2016-08-10] MEDS: PROSOURCE / PROSTAT (PYXIS) 30 ML UDC GT SCH ×3 (09:00→16:56)
[2016-08-10] MEDS: CALCITRIOL ORAL SOLUTION 1 MCG/ML GT SCH (09:00)
[2016-08-10] MEDS: DAKINS HALF STRENGTH (0.25%) 480 ML BOTTLE TOP SCH ×2 (09:00→20:20)
[2016-08-10] MEDS: HEPARIN SODIUM, PORCINE 5000 UNITS/1 ML VIAL SQ SCH ×2 (09:00→20:19)
[2016-08-10] MEDS: HYDROGEN PEROXIDE 480 ML BOTTLE TP SCH ×2 (09:00→20:21)
[2016-08-10] MEDS: HYDROCODONE/APAP 5/325MG 1 EACH TABLET GT SCH ×2 (09:00→20:15)
[2016-08-10] MEDS: ASCORBIC ACID 500 MG TABLET GT SCH (09:00)
[2016-08-10] MEDS: [UNRECOGNIZED DRUG - OTHER] SQ SCH ×2 (09:00→20:20)
[2016-08-10] MEDS: hydrALAZINE HCL 25 MG TABLET PO SCH ×2 (09:00→16:57)
[2016-08-10 13:29] VITALS: BP 147/80
[2016-08-10 18:16] VITALS: BP 154/80
--- NOTE | 2016-08-10 18:33 | NUR ---
Received order from Dr. Guzmán on-call for Dr. Castro to resume Heparin order noted and carried out.
[2016-08-10 20:06] VITALS: BP 154/71
[2016-08-11 00:06] VITALS: BP 142/78
[2016-08-11] MEDS: IPRATROPIUM NEB FS 0.5 MG/2.5 ML AMPUL.NEB NEB SCH ×4 (01:23→19:57)
[2016-08-11] MEDS: ALBUTEROL FS 2.5 MG/3 ML VIAL.NEB NEB SCH ×4 (01:23→19:57)
[2016-08-11] MEDS: ESOMEPRAZOLE MAG TRIHYDRATE 20 MG CAPSULE.DR GT SCH (05:12)
[2016-08-11] MEDS: POLYVINYL ALCOHOL 15 ML BOTTLE EACHEYE SCH ×3 (05:12→18:01)
[2016-08-11] MEDS: BLOOD SUGAR DIAGNOSTIC 1 EACH STRIP IN SCH ×3 (05:13→18:04)
[2016-08-11] MEDS: INSULIN REGULAR, HUMAN 100 UNIT/ML 3 ML VIAL SQ PRN ×3 (05:14→18:05)
[2016-08-11 06:13] VITALS: BP 148/81
[2016-08-11 08:02] VITALS: BP 130/59
[2016-08-11] MEDS: HEPARIN SODIUM, PORCINE 5000 UNITS/1 ML VIAL SQ SCH ×2 (09:00→20:21)
[2016-08-11] MEDS: LISINOPRIL (20MG) 20 MG TABLET PO SCH (09:00)
[2016-08-11] MEDS: PROSOURCE / PROSTAT (PYXIS) 30 ML UDC GT SCH ×3 (09:00→16:39)
[2016-08-11] MEDS: LACTOBACILLUS RHAMNOSUS GG 1 EACH CAP.SPRINK GT SCH ×2 (09:00→16:39)
[2016-08-11] MEDS: HYDROCODONE/APAP 5/325MG 1 EACH TABLET GT SCH ×2 (09:00→20:21)
[2016-08-11] MEDS: VIT B CMPLX 3/FA/VIT C/BIOTIN 1 TAB TABLET GT SCH (09:00)
[2016-08-11] MEDS: hydrALAZINE HCL 25 MG TABLET PO SCH ×2 (09:00→16:39)
[2016-08-11] MEDS: CALCITRIOL ORAL SOLUTION 1 MCG/ML GT SCH (09:00)
[2016-08-11] MEDS: METOPROLOL TARTRATE 50 MG TABLET GT SCH ×2 (09:00→21:13)
[2016-08-11] MEDS: ASCORBIC ACID 500 MG TABLET GT SCH (09:00)
[2016-08-11] MEDS: [UNRECOGNIZED DRUG - OTHER] SQ SCH ×2 (10:05→20:24)
[2016-08-11] MEDS: INSULIN GLARGINE SQ SCH ×2 (10:05→20:24)
[2016-08-11] MEDS: HYDROGEL DRESSING 90 GM TUBE TP SCH ×2 (10:30→20:24)
[2016-08-11] MEDS: HYDROGEN PEROXIDE 480 ML BOTTLE TP SCH ×2 (10:30→20:24)
[2016-08-11] MEDS: DAKINS HALF STRENGTH (0.25%) 480 ML BOTTLE TOP SCH ×2 (10:30→20:24)
[2016-08-11] MEDS: ZINC OXIDE 30 GM TUBE TP SCH ×4 (10:30→20:25)
[2016-08-11] MEDS: NYSTATIN TOP POWDER 15 GM BOTTLE TP SCH ×6 (10:30→20:24)
[2016-08-11] MEDS: NEOMY SULF/BACITRAC ZN/POLY 15 GM TUBE TP SCH (10:30)
--- NOTE | 2016-08-11 15:25 | NUR ---
Patient received trached on HT 70 vent. Alarms verified and audible. Suctioned and lavaged thick ramos secretions. Vent plugged into red outlet. Ambu bag at [facility].
[2016-08-11 16:00] VITALS: BP 139/77
[2016-08-11 18:39] VITALS: BP 102/61
--- NOTE | 2016-08-11 18:44 | NUR ---
Relayed wound culture result to THOMAS Ramsay.
[2016-08-11 20:00] VITALS: BP 120/62
[2016-08-12] MEDS: POLYVINYL ALCOHOL 15 ML BOTTLE EACHEYE SCH ×5 (00:27→23:42)
[2016-08-12] MEDS: BLOOD SUGAR DIAGNOSTIC 1 EACH STRIP IN SCH ×5 (00:27→23:42)
[2016-08-12] MEDS: INSULIN REGULAR, HUMAN 100 UNIT/ML 3 ML VIAL SQ PRN ×4 (00:28→23:43)
[2016-08-12 00:31] VITALS: BP 126/78
[2016-08-12] MEDS: IPRATROPIUM NEB FS 0.5 MG/2.5 ML AMPUL.NEB NEB SCH ×4 (02:17→20:25)
[2016-08-12] MEDS: ALBUTEROL FS 2.5 MG/3 ML VIAL.NEB NEB SCH ×4 (02:17→20:25)
[2016-08-12] MEDS: ESOMEPRAZOLE MAG TRIHYDRATE 20 MG CAPSULE.DR GT SCH (05:15)
[2016-08-12 06:29] VITALS: BP 129/83
[2016-08-12 08:02] VITALS: BP 143/74
[2016-08-12] MEDS: LACTOBACILLUS RHAMNOSUS GG 1 EACH CAP.SPRINK GT SCH ×2 (09:09→17:38)
[2016-08-12] MEDS: VIT B CMPLX 3/FA/VIT C/BIOTIN 1 TAB TABLET GT SCH (09:09)
[2016-08-12] MEDS: CALCITRIOL ORAL SOLUTION 1 MCG/ML GT SCH (09:09)
[2016-08-12] MEDS: HYDROCODONE/APAP 5/325MG 1 EACH TABLET GT SCH ×2 (09:09→20:58)
[2016-08-12] MEDS: ASCORBIC ACID 500 MG TABLET GT SCH (09:10)
[2016-08-12] MEDS: PROSOURCE / PROSTAT (PYXIS) 30 ML UDC GT SCH ×3 (09:10→17:38)
[2016-08-12] MEDS: HEPARIN SODIUM, PORCINE 5000 UNITS/1 ML VIAL SQ SCH ×2 (09:10→20:59)
[2016-08-12] MEDS: hydrALAZINE HCL 25 MG TABLET PO SCH ×2 (09:10→17:39)
[2016-08-12] MEDS: HYDROGEL DRESSING 90 GM TUBE TP SCH ×2 (09:11→21:01)
[2016-08-12] MEDS: INSULIN GLARGINE SQ SCH ×2 (09:11→21:00)
[2016-08-12] MEDS: ZINC OXIDE 30 GM TUBE TP SCH ×4 (09:11→21:02)
[2016-08-12] MEDS: [UNRECOGNIZED DRUG - OTHER] SQ SCH ×2 (09:11→21:00)
[2016-08-12] MEDS: NYSTATIN TOP POWDER 15 GM BOTTLE TP SCH ×6 (09:11→21:02)
[2016-08-12] MEDS: DAKINS HALF STRENGTH (0.25%) 480 ML BOTTLE TOP SCH ×2 (09:11→21:01)
[2016-08-12] MEDS: HYDROGEN PEROXIDE 480 ML BOTTLE TP SCH ×2 (09:11→21:01)
--- NOTE | 2016-08-12 09:30 | NUR ---
Resident left for dialysis in stable condition.
[2016-08-12 14:04] VITALS: BP 138/70
[2016-08-12] MEDS: LINEZOLID 600 MG TABLET GT SCH (15:00)
--- NOTE | 2016-08-12 16:32 | NUR ---
Resident came back from hemodialysis at 1404, scheduled v/s check at 1200 wasn' t done until she came back instead.
[2016-08-12] MEDS: [UNRECOGNIZED DRUG - OTHER] IV SCH (17:41)
[2016-08-12 18:45] VITALS: BP 137/63
[2016-08-12 20:03] VITALS: BP 157/78
[2016-08-12] MEDS: METOPROLOL TARTRATE 50 MG TABLET GT SCH (21:03)
[2016-08-13 00:13] VITALS: BP 133/68
[2016-08-13] MEDS: ALBUTEROL FS 2.5 MG/3 ML VIAL.NEB NEB SCH ×4 (02:23→19:19)
[2016-08-13] MEDS: IPRATROPIUM NEB FS 0.5 MG/2.5 ML AMPUL.NEB NEB SCH ×4 (02:23→19:19)
[2016-08-13] MEDS: LINEZOLID 600 MG TABLET GT SCH ×2 (03:00→15:00)
[2016-08-13] MEDS: BLOOD SUGAR DIAGNOSTIC 1 EACH STRIP IN SCH ×4 (05:24→23:49)
[2016-08-13] MEDS: ESOMEPRAZOLE MAG TRIHYDRATE 20 MG CAPSULE.DR GT SCH (05:24)
[2016-08-13] MEDS: POLYVINYL ALCOHOL 15 ML BOTTLE EACHEYE SCH ×4 (05:24→23:49)
[2016-08-13] MEDS: INSULIN REGULAR, HUMAN 100 UNIT/ML 3 ML VIAL SQ PRN ×4 (05:25→23:50)
[2016-08-13 06:25] VITALS: BP 145/76
[2016-08-13 08:05] VITALS: BP 145/48
[2016-08-13] MEDS: CALCITRIOL ORAL SOLUTION 1 MCG/ML GT SCH (09:37)
[2016-08-13] MEDS: LACTOBACILLUS RHAMNOSUS GG 1 EACH CAP.SPRINK GT SCH ×2 (09:37→17:42)
[2016-08-13] MEDS: VIT B CMPLX 3/FA/VIT C/BIOTIN 1 TAB TABLET GT SCH (09:42)
[2016-08-13] MEDS: METOPROLOL TARTRATE 50 MG TABLET GT SCH ×2 (09:42→22:18)
[2016-08-13] MEDS: hydrALAZINE HCL 25 MG TABLET PO SCH ×2 (09:42→17:42)
[2016-08-13] MEDS: ASCORBIC ACID 500 MG TABLET GT SCH (09:42)
[2016-08-13] MEDS: HYDROCODONE/APAP 5/325MG 1 EACH TABLET GT SCH ×2 (09:42→22:00)
[2016-08-13] MEDS: PROSOURCE / PROSTAT (PYXIS) 30 ML UDC GT SCH ×3 (09:42→17:42)
[2016-08-13] MEDS: ERGOCALCIFEROL (VITAMIN D2) 8,000 UNIT/ML GT SCH (09:42)
[2016-08-13] MEDS: LISINOPRIL (20MG) 20 MG TABLET PO SCH (09:45)
[2016-08-13] MEDS: HEPARIN SODIUM, PORCINE 5000 UNITS/1 ML VIAL SQ SCH ×2 (09:46→21:24)
[2016-08-13] MEDS: DAKINS HALF STRENGTH (0.25%) 480 ML BOTTLE TOP SCH ×2 (09:47→22:00)
[2016-08-13] MEDS: HYDROGEL DRESSING 90 GM TUBE TP SCH ×2 (09:47→22:00)
[2016-08-13] MEDS: [UNRECOGNIZED DRUG - OTHER] SQ SCH ×2 (09:47→21:24)
[2016-08-13] MEDS: HYDROGEN PEROXIDE 480 ML BOTTLE TP SCH ×2 (09:47→22:00)
[2016-08-13] MEDS: INSULIN GLARGINE SQ SCH ×2 (09:47→21:24)
[2016-08-13] MEDS: ZINC OXIDE 30 GM TUBE TP SCH ×4 (09:47→22:00)
[2016-08-13 14:30] VITALS: BP 149/75
[2016-08-13] MEDS: RENAL NOVASOURCE 1,000 ML BOTTLE GT PRN (14:49)
[2016-08-13 18:31] VITALS: BP 136/93
[2016-08-13 20:05] VITALS: BP 159/75
[2016-08-14 00:55] VITALS: BP 158/54
[2016-08-14] MEDS: ALBUTEROL FS 2.5 MG/3 ML VIAL.NEB NEB SCH ×4 (01:33→19:41)
[2016-08-14] MEDS: IPRATROPIUM NEB FS 0.5 MG/2.5 ML AMPUL.NEB NEB SCH ×4 (01:33→19:41)
[2016-08-14] MEDS: LINEZOLID 600 MG TABLET GT SCH ×2 (03:20→14:35)
[2016-08-14] MEDS: ESOMEPRAZOLE MAG TRIHYDRATE 20 MG CAPSULE.DR GT SCH (05:43)
[2016-08-14] MEDS: POLYVINYL ALCOHOL 15 ML BOTTLE EACHEYE SCH ×4 (05:43→23:45)
[2016-08-14] MEDS: BLOOD SUGAR DIAGNOSTIC 1 EACH STRIP IN SCH ×4 (05:43→23:45)
[2016-08-14] MEDS: INSULIN REGULAR, HUMAN 100 UNIT/ML 3 ML VIAL SQ PRN ×4 (05:45→23:47)
[2016-08-14 06:08] VITALS: BP 147/79
[2016-08-14 07:44] VITALS: BP 162/80
[2016-08-14] MEDS: NYSTATIN TOP POWDER 15 GM BOTTLE TP SCH ×6 (09:00→22:00)
[2016-08-14] MEDS: Z GUARD REMEDY 2 OZ OINT TP SCH ×2 (09:00→22:00)
[2016-08-14] MEDS: CALCITRIOL ORAL SOLUTION 1 MCG/ML GT SCH (09:13)
[2016-08-14] MEDS: ASCORBIC ACID 500 MG TABLET GT SCH (09:13)
[2016-08-14] MEDS: VIT B CMPLX 3/FA/VIT C/BIOTIN 1 TAB TABLET GT SCH (09:13)
[2016-08-14] MEDS: hydrALAZINE HCL 25 MG TABLET PO SCH ×2 (09:13→17:56)
[2016-08-14] MEDS: LACTOBACILLUS RHAMNOSUS GG 1 EACH CAP.SPRINK GT SCH ×2 (09:13→17:55)
[2016-08-14] MEDS: PROSOURCE / PROSTAT (PYXIS) 30 ML UDC GT SCH ×3 (09:13→17:55)
[2016-08-14] MEDS: HYDROCODONE/APAP 5/325MG 1 EACH TABLET GT SCH ×2 (09:13→22:00)
[2016-08-14] MEDS: [UNRECOGNIZED DRUG - OTHER] SQ SCH ×2 (09:14→21:11)
[2016-08-14] MEDS: HEPARIN SODIUM, PORCINE 5000 UNITS/1 ML VIAL SQ SCH ×2 (09:14→21:10)
[2016-08-14] MEDS: INSULIN GLARGINE SQ SCH ×2 (09:14→21:11)
[2016-08-14] MEDS: HYDROGEL DRESSING 90 GM TUBE TP SCH ×2 (09:49→22:00)
[2016-08-14] MEDS: DAKINS HALF STRENGTH (0.25%) 480 ML BOTTLE TOP SCH ×2 (09:49→22:00)
[2016-08-14] MEDS: HYDROGEN PEROXIDE 480 ML BOTTLE TP SCH ×2 (09:50→22:00)
[2016-08-14] MEDS: ZINC OXIDE 30 GM TUBE TP SCH ×4 (09:50→22:00)
[2016-08-14] MEDS: LACTULOSE 10 G/15 ML UDC (PYXIS) GT PRN (17:56)
[2016-08-14] MEDS: METOPROLOL TARTRATE 50 MG TABLET GT SCH (22:10)
[2016-08-14] MEDS: RENAL NOVASOURCE 1,000 ML BOTTLE GT PRN (23:47)
[2016-08-15] VITALS (7 sets, daily range): BP systolic 145–167; BP diastolic 71–92
[2016-08-15] MEDS: IPRATROPIUM NEB FS 0.5 MG/2.5 ML AMPUL.NEB NEB SCH ×4 (01:35→20:15)
[2016-08-15] MEDS: ALBUTEROL FS 2.5 MG/3 ML VIAL.NEB NEB SCH ×4 (01:35→20:15)
[2016-08-15] MEDS: LINEZOLID 600 MG TABLET GT SCH ×2 (03:55→15:00)
[2016-08-15] MEDS: BLOOD SUGAR DIAGNOSTIC 1 EACH STRIP IN SCH ×4 (05:39→23:41)
[2016-08-15] MEDS: ESOMEPRAZOLE MAG TRIHYDRATE 20 MG CAPSULE.DR GT SCH (05:39)
[2016-08-15] MEDS: POLYVINYL ALCOHOL 15 ML BOTTLE EACHEYE SCH ×3 (05:39→18:22)
[2016-08-15] MEDS: INSULIN REGULAR, HUMAN 100 UNIT/ML 3 ML VIAL SQ PRN ×4 (05:41→23:27)
[2016-08-15] MEDS: CLONIDINE HCL 0.2 MG TABLET GT PRN (05:41)
--- NOTE | 2016-08-15 06:18 | NUR ---
Pt noted with redness around gt stoma with drainage pus like discharge,cleanse with NS and cover with gauze.Pt afebrile will continue to monitor and will endorse to oncoming shift.
[2016-08-15] MEDS: HEPARIN SODIUM, PORCINE 5000 UNITS/1 ML VIAL SQ SCH ×2 (09:00→21:58)
[2016-08-15] MEDS: METOPROLOL TARTRATE 50 MG TABLET GT SCH ×2 (09:00→22:00)
[2016-08-15] MEDS: LISINOPRIL (20MG) 20 MG TABLET PO SCH (09:00)
[2016-08-15] MEDS: ASCORBIC ACID 500 MG TABLET GT SCH (09:00)
[2016-08-15] MEDS: INSULIN GLARGINE SQ SCH ×2 (09:00→21:59)
[2016-08-15] MEDS: PROSOURCE / PROSTAT (PYXIS) 30 ML UDC GT SCH ×3 (09:00→17:00)
[2016-08-15] MEDS: hydrALAZINE HCL 25 MG TABLET PO SCH ×2 (09:00→17:00)
[2016-08-15] MEDS: CALCITRIOL ORAL SOLUTION 1 MCG/ML GT SCH (09:00)
[2016-08-15] MEDS: LACTOBACILLUS RHAMNOSUS GG 1 EACH CAP.SPRINK GT SCH ×2 (09:00→17:00)
[2016-08-15] MEDS: [UNRECOGNIZED DRUG - OTHER] SQ SCH ×2 (09:00→21:59)
[2016-08-15] MEDS: VIT B CMPLX 3/FA/VIT C/BIOTIN 1 TAB TABLET GT SCH (09:00)
[2016-08-15] MEDS: HYDROCODONE/APAP 5/325MG 1 EACH TABLET GT SCH ×2 (13:30→21:57)
[2016-08-15] MEDS: Z GUARD REMEDY 2 OZ OINT TP SCH ×2 (14:00→21:59)
[2016-08-15] MEDS: HYDROGEN PEROXIDE 480 ML BOTTLE TP SCH ×2 (14:00→21:59)
[2016-08-15] MEDS: NYSTATIN TOP POWDER 15 GM BOTTLE TP SCH ×6 (14:00→21:59)
[2016-08-15] MEDS: ZINC OXIDE 30 GM TUBE TP SCH ×4 (14:00→21:59)
[2016-08-15] MEDS: DAKINS HALF STRENGTH (0.25%) 480 ML BOTTLE TOP SCH ×2 (14:00→21:00)
[2016-08-15] MEDS: HYDROGEL DRESSING 90 GM TUBE TP SCH ×2 (14:00→21:59)
--- NOTE | 2016-08-15 15:01 | NUR ---
Pt noted with redness around gt stoma with drainage pus like discharge and blood. Wound culture obtained and sent to lab per MD. Dr Castro was notified about drainage, redness and recommended culture of gt stoma. Dr. Castro referred to [facility] for Infection Control and was notified.
[2016-08-15] MEDS: RENAL NOVASOURCE 1,000 ML BOTTLE GT PRN (23:02)
[2016-08-16 00:02] VITALS: BP 149/67
[2016-08-16] MEDS: POLYVINYL ALCOHOL 15 ML BOTTLE EACHEYE SCH ×5 (00:17→23:33)
[2016-08-16] MEDS: IPRATROPIUM NEB FS 0.5 MG/2.5 ML AMPUL.NEB NEB SCH ×4 (02:04→19:31)
[2016-08-16] MEDS: ALBUTEROL FS 2.5 MG/3 ML VIAL.NEB NEB SCH ×4 (02:04→19:31)
[2016-08-16] MEDS: LINEZOLID 600 MG TABLET GT SCH ×2 (03:00→15:00)
[2016-08-16] MEDS: BLOOD SUGAR DIAGNOSTIC 1 EACH STRIP IN SCH ×4 (05:35→23:33)
[2016-08-16] MEDS: ESOMEPRAZOLE MAG TRIHYDRATE 20 MG CAPSULE.DR GT SCH (05:35)
[2016-08-16] MEDS: CLONIDINE HCL 0.2 MG TABLET GT PRN (05:35)
[2016-08-16] MEDS: INSULIN REGULAR, HUMAN 100 UNIT/ML 3 ML VIAL SQ PRN ×3 (05:38→23:35)
[2016-08-16 06:04] VITALS: BP 178/91
[2016-08-16 08:33] VITALS: BP 173/89
[2016-08-16] MEDS: CALCITRIOL ORAL SOLUTION 1 MCG/ML GT SCH (08:48)
[2016-08-16] MEDS: ASCORBIC ACID 500 MG TABLET GT SCH (08:48)
[2016-08-16] MEDS: PROSOURCE / PROSTAT (PYXIS) 30 ML UDC GT SCH ×3 (08:48→17:00)
[2016-08-16] MEDS: LACTOBACILLUS RHAMNOSUS GG 1 EACH CAP.SPRINK GT SCH ×2 (08:48→17:00)
[2016-08-16] MEDS: VIT B CMPLX 3/FA/VIT C/BIOTIN 1 TAB TABLET GT SCH (08:48)
[2016-08-16] MEDS: HEPARIN SODIUM, PORCINE 5000 UNITS/1 ML VIAL SQ SCH ×2 (08:49→20:52)
[2016-08-16] MEDS: hydrALAZINE HCL 25 MG TABLET PO SCH ×2 (08:49→17:00)
[2016-08-16] MEDS: [UNRECOGNIZED DRUG - OTHER] SQ SCH ×2 (08:50→20:53)
[2016-08-16] MEDS: INSULIN GLARGINE SQ SCH ×2 (08:50→20:53)
[2016-08-16 14:00] VITALS: BP 129/72
[2016-08-16] MEDS: HYDROGEL DRESSING 90 GM TUBE TP SCH ×2 (14:30→20:54)
[2016-08-16] MEDS: ZINC OXIDE 30 GM TUBE TP SCH ×4 (14:30→20:56)
[2016-08-16] MEDS: DAKINS HALF STRENGTH (0.25%) 480 ML BOTTLE TOP SCH ×2 (14:30→20:54)
[2016-08-16] MEDS: Z GUARD REMEDY 2 OZ OINT TP SCH ×2 (14:30→20:56)
[2016-08-16] MEDS: NYSTATIN TOP POWDER 15 GM BOTTLE TP SCH ×6 (14:30→20:57)
[2016-08-16] MEDS: HYDROGEN PEROXIDE 480 ML BOTTLE TP SCH ×2 (14:30→20:54)
[2016-08-16] MEDS: HYDROCODONE/APAP 5/325MG 1 EACH TABLET GT SCH ×2 (15:00→20:50)
[2016-08-16 18:00] VITALS: BP 132/74
--- NOTE | 2016-08-16 19:00 | NUR ---
PUSHPA for 08/15/161899 THOMAS Ramsay seen and assess GT stoma, she stated that it is a superficial cellulitis but it will be covered by the current ATB (Zyvox) that patient is on now.
[2016-08-16] MEDS: METOPROLOL TARTRATE 50 MG TABLET GT SCH (21:30)
[2016-08-17 00:04] VITALS: BP 119/71
[2016-08-17] MEDS: ALBUTEROL FS 2.5 MG/3 ML VIAL.NEB NEB SCH ×4 (01:43→19:47)
[2016-08-17] MEDS: IPRATROPIUM NEB FS 0.5 MG/2.5 ML AMPUL.NEB NEB SCH ×4 (01:43→19:47)
[2016-08-17] MEDS: LINEZOLID 600 MG TABLET GT SCH ×2 (03:00→15:00)
[2016-08-17] MEDS: BLOOD SUGAR DIAGNOSTIC 1 EACH STRIP IN SCH ×4 (05:18→23:38)
[2016-08-17] MEDS: POLYVINYL ALCOHOL 15 ML BOTTLE EACHEYE SCH ×4 (05:18→23:38)
[2016-08-17] MEDS: ESOMEPRAZOLE MAG TRIHYDRATE 20 MG CAPSULE.DR GT SCH (05:18)
[2016-08-17] MEDS: INSULIN REGULAR, HUMAN 100 UNIT/ML 3 ML VIAL SQ PRN ×4 (05:19→23:42)
[2016-08-17 06:06] VITALS: BP 127/68
[2016-08-17 08:00] VITALS: BP 146/91
[2016-08-17] MEDS: ASCORBIC ACID 500 MG TABLET GT SCH (09:56)
[2016-08-17] MEDS: VIT B CMPLX 3/FA/VIT C/BIOTIN 1 TAB TABLET GT SCH (09:56)
[2016-08-17] MEDS: CALCITRIOL ORAL SOLUTION 1 MCG/ML GT SCH (09:56)
[2016-08-17] MEDS: METOPROLOL TARTRATE 50 MG TABLET GT SCH ×2 (09:56→21:33)
[2016-08-17] MEDS: LACTOBACILLUS RHAMNOSUS GG 1 EACH CAP.SPRINK GT SCH ×2 (09:56→17:30)
[2016-08-17] MEDS: PROSOURCE / PROSTAT (PYXIS) 30 ML UDC GT SCH ×3 (09:56→17:30)
[2016-08-17] MEDS: HYDROCODONE/APAP 5/325MG 1 EACH TABLET GT SCH ×2 (09:56→21:33)
[2016-08-17] MEDS: HEPARIN SODIUM, PORCINE 5000 UNITS/1 ML VIAL SQ SCH ×2 (09:57→21:31)
[2016-08-17] MEDS: LISINOPRIL (20MG) 20 MG TABLET PO SCH (09:57)
[2016-08-17] MEDS: hydrALAZINE HCL 25 MG TABLET PO SCH ×2 (09:57→17:30)
[2016-08-17] MEDS: [UNRECOGNIZED DRUG - OTHER] SQ SCH ×2 (09:58→21:32)
[2016-08-17] MEDS: DAKINS HALF STRENGTH (0.25%) 480 ML BOTTLE TOP SCH ×2 (09:58→21:28)
[2016-08-17] MEDS: INSULIN GLARGINE SQ SCH ×2 (09:58→21:32)
[2016-08-17] MEDS: NYSTATIN TOP POWDER 15 GM BOTTLE TP SCH ×6 (09:59→21:28)
[2016-08-17] MEDS: HYDROGEL DRESSING 90 GM TUBE TP SCH ×2 (09:59→21:28)
[2016-08-17] MEDS: HYDROGEN PEROXIDE 480 ML BOTTLE TP SCH ×2 (09:59→21:28)
[2016-08-17] MEDS: ZINC OXIDE 30 GM TUBE TP SCH ×4 (09:59→21:32)
[2016-08-17] MEDS: Z GUARD REMEDY 2 OZ OINT TP SCH ×2 (09:59→21:28)
[2016-08-17] MEDS: RENAL NOVASOURCE 1,000 ML BOTTLE GT PRN (10:00)
[2016-08-17 12:31] VITALS: BP 132/65
[2016-08-17] MEDS ORDERED: DAKINS HALF STRENGTH (0.25%) 480 ML BOTTLE TOP PRN (15:30)
[2016-08-17 18:06] VITALS: BP 153/92
[2016-08-18 00:16] VITALS: BP 155/68
[2016-08-18] MEDS: ALBUTEROL FS 2.5 MG/3 ML VIAL.NEB NEB SCH ×4 (00:59→19:29)
[2016-08-18] MEDS: IPRATROPIUM NEB FS 0.5 MG/2.5 ML AMPUL.NEB NEB SCH ×4 (00:59→19:29)
[2016-08-18] MEDS: LINEZOLID 600 MG TABLET GT SCH ×2 (03:09→15:00)
[2016-08-18] MEDS: BLOOD SUGAR DIAGNOSTIC 1 EACH STRIP IN SCH ×4 (05:32→23:14)
[2016-08-18] MEDS: POLYVINYL ALCOHOL 15 ML BOTTLE EACHEYE SCH ×4 (05:32→23:14)
[2016-08-18] MEDS: ESOMEPRAZOLE MAG TRIHYDRATE 20 MG CAPSULE.DR GT SCH (05:32)
[2016-08-18] MEDS: INSULIN REGULAR, HUMAN 100 UNIT/ML 3 ML VIAL SQ PRN ×4 (05:33→23:17)
[2016-08-18] MEDS: RENAL NOVASOURCE 1,000 ML BOTTLE GT PRN (05:40)
[2016-08-18 06:35] VITALS: BP 158/72
--- NOTE | 2016-08-18 07:38 | NUR ---
RT PT RECEIVED TRACHED ON THE VENT WITH NOTED SETTINGS. PT IS AWAKE BUT DOES NOT FOLLOW COMMANDS. VENT ALARMS ARE SET AND AUDIBLE WITH BVM BY BEDSIDE. GAS LINE INSTALLER CUFF PRESSURE NOTED. VENT IS PLUGGED INTO RED OUTLET. SX SMALL THICK SECRETIONS. NO RESPIRATORY DISTRESS NOTED AT THIS TIME, WILL CONTINUE TO MONITOR. Addendum: 08/18/16 at 1006 by EDU CIFUENTES RT Amended: Links added.
[2016-08-18 08:17] VITALS: BP 138/74
[2016-08-18] MEDS: VIT B CMPLX 3/FA/VIT C/BIOTIN 1 TAB TABLET GT SCH (09:56)
[2016-08-18] MEDS: LACTOBACILLUS RHAMNOSUS GG 1 EACH CAP.SPRINK GT SCH ×2 (09:56→17:34)
[2016-08-18] MEDS: CALCITRIOL ORAL SOLUTION 1 MCG/ML GT SCH (09:56)
[2016-08-18] MEDS: METOPROLOL TARTRATE 50 MG TABLET GT SCH ×2 (09:56→22:00)
[2016-08-18] MEDS: HEPARIN SODIUM, PORCINE 5000 UNITS/1 ML VIAL SQ SCH ×2 (09:57→21:00)
[2016-08-18] MEDS: ASCORBIC ACID 500 MG TABLET GT SCH (09:57)
[2016-08-18] MEDS: hydrALAZINE HCL 25 MG TABLET PO SCH ×2 (09:57→17:34)
[2016-08-18] MEDS: LISINOPRIL (20MG) 20 MG TABLET PO SCH (09:57)
[2016-08-18] MEDS: PROSOURCE / PROSTAT (PYXIS) 30 ML UDC GT SCH ×3 (09:57→17:34)
[2016-08-18] MEDS: HYDROCODONE/APAP 5/325MG 1 EACH TABLET GT SCH ×2 (09:57→21:00)
[2016-08-18] MEDS: HYDROGEL DRESSING 90 GM TUBE TP SCH ×2 (09:58→21:00)
[2016-08-18] MEDS: DAKINS HALF STRENGTH (0.25%) 480 ML BOTTLE TOP SCH ×2 (09:58→21:00)
[2016-08-18] MEDS: [UNRECOGNIZED DRUG - OTHER] SQ SCH ×2 (09:58→21:00)
[2016-08-18] MEDS: NYSTATIN TOP POWDER 15 GM BOTTLE TP SCH ×6 (09:58→21:00)
[2016-08-18] MEDS: HYDROGEN PEROXIDE 480 ML BOTTLE TP SCH ×2 (09:58→21:00)
[2016-08-18] MEDS: INSULIN GLARGINE SQ SCH ×2 (09:58→21:00)
[2016-08-18] MEDS: Z GUARD REMEDY 2 OZ OINT TP SCH ×2 (09:59→21:00)
[2016-08-18] MEDS: ZINC OXIDE 30 GM TUBE TP SCH ×4 (09:59→21:00)
--- NOTE | 2016-08-18 14:00 | NUR ---
Relayed Wound C and S (GT site wound) to Sobia ID DOMESTIC FREIGHT FORWARDER. No new orders.
[2016-08-18 16:03] VITALS: BP 146/72
--- NOTE | 2016-08-18 18:00 | NUR ---
Sobia FRANKLIN NETWORK SECURITY OFFICER came and assessed patients' abdominal wound. She wants GI CONSULT.
[2016-08-18 18:38] VITALS: BP 157/73
[2016-08-18 20:25] VITALS: BP 156/78
[2016-08-19] VITALS: BP 142/70
[2016-08-19] MEDS: IPRATROPIUM NEB FS 0.5 MG/2.5 ML AMPUL.NEB NEB SCH ×4 (01:38→19:30)
[2016-08-19] MEDS: ALBUTEROL FS 2.5 MG/3 ML VIAL.NEB NEB SCH ×4 (01:38→19:30)
[2016-08-19] MEDS: LINEZOLID 600 MG TABLET GT SCH (03:00)
[2016-08-19] MEDS: INSULIN REGULAR, HUMAN 100 UNIT/ML 3 ML VIAL SQ PRN ×2 (05:59→18:19)
[2016-08-19] MEDS: ESOMEPRAZOLE MAG TRIHYDRATE 20 MG CAPSULE.DR GT SCH (05:59)
[2016-08-19] MEDS: BLOOD SUGAR DIAGNOSTIC 1 EACH STRIP IN SCH ×3 (05:59→18:18)
[2016-08-19] MEDS: POLYVINYL ALCOHOL 15 ML BOTTLE EACHEYE SCH ×3 (05:59→18:38)
[2016-08-19 06:59] VITALS: BP 138/72
[2016-08-19 07:45] VITALS: BP 160/74
[2016-08-19] MEDS: hydrALAZINE HCL 25 MG TABLET PO SCH ×2 (09:00→18:30)
[2016-08-19] MEDS: VIT B CMPLX 3/FA/VIT C/BIOTIN 1 TAB TABLET GT SCH (09:09)
[2016-08-19] MEDS: CALCITRIOL ORAL SOLUTION 1 MCG/ML GT SCH (09:09)
[2016-08-19] MEDS: LACTOBACILLUS RHAMNOSUS GG 1 EACH CAP.SPRINK GT SCH ×2 (09:09→18:30)
[2016-08-19] MEDS: ASCORBIC ACID 500 MG TABLET GT SCH (09:10)
[2016-08-19] MEDS: HYDROCODONE/APAP 5/325MG 1 EACH TABLET GT SCH ×2 (09:10→20:52)
[2016-08-19] MEDS: PROSOURCE / PROSTAT (PYXIS) 30 ML UDC GT SCH ×3 (09:10→18:30)
[2016-08-19] MEDS: HEPARIN SODIUM, PORCINE 5000 UNITS/1 ML VIAL SQ SCH ×2 (09:11→20:53)
[2016-08-19] MEDS: INSULIN GLARGINE SQ SCH ×2 (09:11→20:53)
[2016-08-19] MEDS: [UNRECOGNIZED DRUG - OTHER] SQ SCH ×2 (09:11→20:53)
[2016-08-19] MEDS: ZINC OXIDE 30 GM TUBE TP SCH ×4 (09:24→20:54)
[2016-08-19] MEDS: DAKINS HALF STRENGTH (0.25%) 480 ML BOTTLE TOP SCH ×2 (09:24→20:53)
[2016-08-19] MEDS: HYDROGEL DRESSING 90 GM TUBE TP SCH ×2 (09:24→20:54)
[2016-08-19] MEDS: NYSTATIN TOP POWDER 15 GM BOTTLE TP SCH ×6 (09:24→20:54)
[2016-08-19] MEDS: Z GUARD REMEDY 2 OZ OINT TP SCH ×2 (09:24→20:54)
[2016-08-19] MEDS: HYDROGEN PEROXIDE 480 ML BOTTLE TP SCH ×2 (09:24→20:54)
[2016-08-19] MEDS ORDERED: DIATR MEGLU/DIATRIZOATE SODIUM 30 ML BOTTLE (GASTROGRAPHIN) ONE (16:10)
--- NOTE | 2016-08-19 16:53 | NUR ---
Seen by Dr. Borjas. Leaking noted on the GT site. Dr. Borjas ordered to hold the GT feeding, start D5 1/2 NS at 60 mL/hr IV, and do Chem 7.
[2016-08-19] MEDS: [UNRECOGNIZED DRUG - OTHER] IV SCH (18:00)
--- NOTE | 2016-08-19 18:00 | NUR ---
Asked THOMAS Ramsay if she wanted to order antibiotics for pt based on the GT site C/S. She said she will review it. No new order at this time.
[2016-08-19 18:07] LABS: CREATININE 3.3 mg/dL (0.6-1.3); POTASSIUM 4.3 mmol/L (3.5-5.1)
--- NOTE | 2016-08-19 18:41 | NUR ---
aranesp given at dialysis center
[2016-08-19 18:49] VITALS: BP 133/76
[2016-08-19] MEDS: IV D5/0.45 NACL 1,000 ML IV PRN (18:57)
[2016-08-19 20:14] VITALS: BP 148/83
[2016-08-19] MEDS: METOPROLOL TARTRATE 50 MG TABLET GT SCH (22:37)
[2016-08-20] MEDS: POLYVINYL ALCOHOL 15 ML BOTTLE EACHEYE SCH ×5 (00:17→23:38)
[2016-08-20] MEDS: BLOOD SUGAR DIAGNOSTIC 1 EACH STRIP IN SCH ×5 (00:17→23:38)
[2016-08-20] MEDS: INSULIN REGULAR, HUMAN 100 UNIT/ML 3 ML VIAL SQ PRN ×5 (00:20→23:39)
[2016-08-20 00:24] VITALS: BP 135/73
[2016-08-20] MEDS: IPRATROPIUM NEB FS 0.5 MG/2.5 ML AMPUL.NEB NEB SCH ×4 (01:00→19:30)
[2016-08-20] MEDS: ALBUTEROL FS 2.5 MG/3 ML VIAL.NEB NEB SCH ×4 (01:00→19:30)
[2016-08-20] MEDS: ESOMEPRAZOLE MAG TRIHYDRATE 20 MG CAPSULE.DR GT SCH (05:48)
[2016-08-20 06:15] VITALS: BP 129/71
[2016-08-20 07:49] VITALS: BP 174/99
[2016-08-20] MEDS: INSULIN GLARGINE SQ SCH ×2 (09:00→21:23)
[2016-08-20] MEDS: [UNRECOGNIZED DRUG - OTHER] SQ SCH ×2 (09:00→21:23)
[2016-08-20] MEDS: HEPARIN SODIUM, PORCINE 5000 UNITS/1 ML VIAL SQ SCH ×2 (09:00→20:44)
[2016-08-20] MEDS: LISINOPRIL (20MG) 20 MG TABLET PO SCH (09:00)
[2016-08-20] MEDS: LACTOBACILLUS RHAMNOSUS GG 1 EACH CAP.SPRINK GT SCH ×2 (09:59→16:28)
[2016-08-20] MEDS: ASCORBIC ACID 500 MG TABLET GT SCH (09:59)
[2016-08-20] MEDS: ERGOCALCIFEROL (VITAMIN D2) 8,000 UNIT/ML GT SCH (09:59)
[2016-08-20] MEDS: METOPROLOL TARTRATE 50 MG TABLET GT SCH ×2 (09:59→21:23)
[2016-08-20] MEDS: CALCITRIOL ORAL SOLUTION 1 MCG/ML GT SCH (09:59)
[2016-08-20] MEDS: VIT B CMPLX 3/FA/VIT C/BIOTIN 1 TAB TABLET GT SCH (09:59)
[2016-08-20] MEDS: PROSOURCE / PROSTAT (PYXIS) 30 ML UDC GT SCH ×3 (09:59→16:28)
[2016-08-20] MEDS: hydrALAZINE HCL 25 MG TABLET PO SCH ×2 (10:00→16:28)
--- NOTE | 2016-08-20 10:20 | NUR ---
Relayed wound culture result to THOMAS Ramsay oragnism #1 serratia arcescens, organism #2 pseudomonas aeruginosa, organism #3 proteus mirabilis, organism #4 torulopsis glabrata THOMAS Ramsay ordered Amikacin IV pharmacy to dose. Faxed to Pharmacy.
[2016-08-20] MEDS: IV D5/0.45 NACL 1,000 ML IV PRN (10:48)
[2016-08-20] MEDS ORDERED: DOSING PER PHARMACY-AMIKACI IV XX PRN (13:00)
--- NOTE | 2016-08-20 13:11 | NUR ---
Seen and examined by Dr. Borjas patient GT site. Dr. Borjas stated GT feeding not to resume yet and he will reinsert G-tube on thursday. Please have bard #26 with 20cc of balloon ready at bedside. IVF still ongoing as ordered. Will continue to endorse.
--- NOTE | 2016-08-20 13:27 | NUR ---
is okeyed with Bard 24 with 20ml balloon.
[2016-08-20] MEDS: HYDROCODONE/APAP 5/325MG 1 EACH TABLET GT SCH ×2 (14:30→20:43)
[2016-08-20] MEDS: DAKINS HALF STRENGTH (0.25%) 480 ML BOTTLE TOP SCH ×2 (15:00→20:46)
[2016-08-20] MEDS: HYDROGEL DRESSING 90 GM TUBE TP SCH ×2 (15:00→20:46)
[2016-08-20] MEDS: ZINC OXIDE 30 GM TUBE TP SCH ×4 (15:00→20:46)
[2016-08-20] MEDS: HYDROGEN PEROXIDE 480 ML BOTTLE TP SCH ×2 (15:00→20:46)
[2016-08-20] MEDS: Z GUARD REMEDY 2 OZ OINT TP SCH ×2 (15:00→20:46)
[2016-08-20] MEDS: NYSTATIN TOP POWDER 15 GM BOTTLE TP SCH ×6 (15:00→20:46)
--- NOTE | 2016-08-20 15:10 | NUR ---
Received new order for wound culture result Amikacin 450MG IV today then 450mg IV 3 times weekly () after dialysis. Random Amikacin level before dialysis on Thursday08/23/16. And will clarify order for stop date orders noted and carried out. Started first dose from E-KIT with no adverse reactions noted.
[2016-08-20] MEDS ORDERED: AMIKACIN 450 MG in IV D5W 100 ML IV ONE (16:00)
[2016-08-20 18:00] VITALS: BP 159/76
[2016-08-20 20:17] VITALS: BP 175/89
[2016-08-20] MEDS: CLONIDINE HCL 0.2 MG TABLET GT PRN (23:39)
[2016-08-21 00:24] VITALS: BP 163/73
[2016-08-21] MEDS: ALBUTEROL FS 2.5 MG/3 ML VIAL.NEB NEB SCH ×4 (01:59→19:17)
[2016-08-21] MEDS: IPRATROPIUM NEB FS 0.5 MG/2.5 ML AMPUL.NEB NEB SCH ×4 (01:59→19:17)
[2016-08-21] MEDS: POLYVINYL ALCOHOL 15 ML BOTTLE EACHEYE SCH ×4 (05:23→23:33)
[2016-08-21] MEDS: BLOOD SUGAR DIAGNOSTIC 1 EACH STRIP IN SCH ×4 (05:23→23:33)
[2016-08-21] MEDS: ESOMEPRAZOLE MAG TRIHYDRATE 20 MG CAPSULE.DR GT SCH (05:23)
[2016-08-21] MEDS: INSULIN REGULAR, HUMAN 100 UNIT/ML 3 ML VIAL SQ PRN ×2 (05:24→23:34)
[2016-08-21 06:04] VITALS: BP 155/76
[2016-08-21] MEDS: IV D5/0.45 NACL 1,000 ML IV PRN (07:45)
[2016-08-21 07:49] VITALS: BP 146/84
[2016-08-21] MEDS: PROSOURCE / PROSTAT (PYXIS) 30 ML UDC GT SCH ×3 (08:58→17:51)
[2016-08-21] MEDS: HYDROCODONE/APAP 5/325MG 1 EACH TABLET GT SCH ×2 (08:58→20:32)
[2016-08-21] MEDS: LACTOBACILLUS RHAMNOSUS GG 1 EACH CAP.SPRINK GT SCH ×2 (08:58→17:51)
[2016-08-21] MEDS: VIT B CMPLX 3/FA/VIT C/BIOTIN 1 TAB TABLET GT SCH (08:58)
[2016-08-21] MEDS: ASCORBIC ACID 500 MG TABLET GT SCH (08:58)
[2016-08-21] MEDS: CALCITRIOL ORAL SOLUTION 1 MCG/ML GT SCH (08:58)
[2016-08-21] MEDS: hydrALAZINE HCL 25 MG TABLET PO SCH ×2 (08:59→17:00)
[2016-08-21] MEDS: HEPARIN SODIUM, PORCINE 5000 UNITS/1 ML VIAL SQ SCH ×2 (09:00→20:32)
[2016-08-21] MEDS: INSULIN GLARGINE SQ SCH ×2 (09:01→21:20)
[2016-08-21] MEDS: [UNRECOGNIZED DRUG - OTHER] SQ SCH ×2 (09:01→21:20)
[2016-08-21] MEDS: NYSTATIN TOP POWDER 15 GM BOTTLE TP SCH ×6 (09:28→20:33)
[2016-08-21] MEDS: HYDROGEL DRESSING 90 GM TUBE TP SCH ×2 (09:28→20:33)
[2016-08-21] MEDS: DAKINS HALF STRENGTH (0.25%) 480 ML BOTTLE TOP SCH ×2 (09:28→20:33)
[2016-08-21] MEDS: HYDROGEN PEROXIDE 480 ML BOTTLE TP SCH ×2 (09:28→20:33)
[2016-08-21] MEDS: Z GUARD REMEDY 2 OZ OINT TP SCH ×2 (09:29→20:33)
[2016-08-21] MEDS: ZINC OXIDE 30 GM TUBE TP SCH ×4 (09:29→20:33)
[2016-08-21] MEDS: AMIKACIN 450 MG in IV D5W 100 ML IV SCH (17:13)
[2016-08-21 18:26] VITALS: BP 110/71
[2016-08-21 21:22] VITALS: BP 99/53
[2016-08-21] MEDS: METOPROLOL TARTRATE 50 MG TABLET GT SCH (21:33)
[2016-08-22] MEDS: ALBUTEROL FS 2.5 MG/3 ML VIAL.NEB NEB SCH ×4 (00:40→19:26)
[2016-08-22] MEDS: IPRATROPIUM NEB FS 0.5 MG/2.5 ML AMPUL.NEB NEB SCH ×4 (00:40→19:26)
[2016-08-22 00:57] VITALS: BP 122/67
[2016-08-22] MEDS: BLOOD SUGAR DIAGNOSTIC 1 EACH STRIP IN SCH ×3 (05:06→17:54)
[2016-08-22] MEDS: POLYVINYL ALCOHOL 15 ML BOTTLE EACHEYE SCH ×3 (05:06→18:57)
[2016-08-22] MEDS: ESOMEPRAZOLE MAG TRIHYDRATE 20 MG CAPSULE.DR GT SCH (05:06)
[2016-08-22] MEDS: INSULIN REGULAR, HUMAN 100 UNIT/ML 3 ML VIAL SQ PRN ×3 (05:29→17:57)
[2016-08-22] MEDS: IV D5/0.45 NACL 1,000 ML IV PRN (05:37)
[2016-08-22 06:00] VITALS: BP 149/83
[2016-08-22 07:28] VITALS: BP 150/71
[2016-08-22] MEDS: CALCITRIOL ORAL SOLUTION 1 MCG/ML GT SCH (08:43)
[2016-08-22] MEDS: LACTOBACILLUS RHAMNOSUS GG 1 EACH CAP.SPRINK GT SCH ×2 (08:43→17:00)
[2016-08-22] MEDS: HYDROCODONE/APAP 5/325MG 1 EACH TABLET GT SCH ×2 (08:44→20:39)
[2016-08-22] MEDS: hydrALAZINE HCL 25 MG TABLET PO SCH ×2 (08:44→17:00)
[2016-08-22] MEDS: METOPROLOL TARTRATE 50 MG TABLET GT SCH ×2 (08:44→21:38)
[2016-08-22] MEDS: PROSOURCE / PROSTAT (PYXIS) 30 ML UDC GT SCH ×3 (08:44→17:00)
[2016-08-22] MEDS: VIT B CMPLX 3/FA/VIT C/BIOTIN 1 TAB TABLET GT SCH (08:44)
[2016-08-22] MEDS: ASCORBIC ACID 500 MG TABLET GT SCH (08:44)
[2016-08-22] MEDS: LISINOPRIL (20MG) 20 MG TABLET PO SCH (08:45)
[2016-08-22] MEDS: HEPARIN SODIUM, PORCINE 5000 UNITS/1 ML VIAL SQ SCH ×2 (08:45→20:40)
[2016-08-22] MEDS: INSULIN GLARGINE SQ SCH ×2 (08:46→20:40)
[2016-08-22] MEDS: [UNRECOGNIZED DRUG - OTHER] SQ SCH ×2 (08:46→20:40)
[2016-08-22] MEDS: NYSTATIN TOP POWDER 15 GM BOTTLE TP SCH ×6 (09:15→20:41)
[2016-08-22] MEDS: HYDROGEL DRESSING 90 GM TUBE TP SCH ×2 (09:15→20:40)
[2016-08-22] MEDS: ZINC OXIDE 30 GM TUBE TP SCH ×4 (09:15→20:41)
[2016-08-22] MEDS: HYDROGEN PEROXIDE 480 ML BOTTLE TP SCH ×2 (09:15→20:41)
[2016-08-22] MEDS: DAKINS HALF STRENGTH (0.25%) 480 ML BOTTLE TOP SCH ×2 (09:15→20:40)
[2016-08-22] MEDS: Z GUARD REMEDY 2 OZ OINT TP SCH ×2 (09:15→20:41)
[2016-08-22 12:00] VITALS: BP 157/80
--- NOTE | 2016-08-22 16:51 | NUR ---
Dr. Borjas changed pt's G-tube to Bard Fr 24 x 20 mL. Pt tolerated procedure well. Dr. Borjas ordered KUB with gastrograffin to verify G-tube placement.
[2016-08-22] MEDS ORDERED: DIATR MEGLU/DIATRIZOATE SODIUM 30 ML BOTTLE (GASTROGRAPHIN) ONE (16:57)
[2016-08-22 18:53] VITALS: BP 157/80
--- NOTE | 2016-08-22 18:59 | NUR ---
S/P G-TUBE REPLACEMENT BY , 1700 MEDICATIONS NOT GIVEN, AWAITING KUB RESULT.
--- NOTE | 2016-08-22 20:39 | NUR ---
KUB RESULTS RELAYED TO DR. BIRCH WITH ORDERS TO RESUME NOVASOURSE RENAL 40CC/HR X 18 HRS AND DISCONTINUE IV HYDRATION.ORDERS CARRIED OUT.
[2016-08-22] MEDS: RENAL NOVASOURCE 1,000 ML BOTTLE GT PRN (21:00)
[2016-08-22 21:06] VITALS: BP 142/78
[2016-08-23 00:05] VITALS: BP 151/77
[2016-08-23] MEDS: POLYVINYL ALCOHOL 15 ML BOTTLE EACHEYE SCH ×5 (00:26→23:11)
[2016-08-23] MEDS: BLOOD SUGAR DIAGNOSTIC 1 EACH STRIP IN SCH ×5 (00:26→23:12)
[2016-08-23] MEDS: INSULIN REGULAR, HUMAN 100 UNIT/ML 3 ML VIAL SQ PRN ×4 (00:27→23:13)
[2016-08-23] MEDS: IPRATROPIUM NEB FS 0.5 MG/2.5 ML AMPUL.NEB NEB SCH ×4 (01:59→19:30)
[2016-08-23] MEDS: ALBUTEROL FS 2.5 MG/3 ML VIAL.NEB NEB SCH ×4 (01:59→19:30)
[2016-08-23] MEDS: ESOMEPRAZOLE MAG TRIHYDRATE 20 MG CAPSULE.DR GT SCH (05:42)
[2016-08-23 06:05] VITALS: BP 154/82
[2016-08-23 07:42] VITALS: BP 144/68
[2016-08-23] MEDS: PROSOURCE / PROSTAT (PYXIS) 30 ML UDC GT SCH ×3 (08:33→17:48)
[2016-08-23] MEDS: ASCORBIC ACID 500 MG TABLET GT SCH (08:33)
[2016-08-23] MEDS: HYDROCODONE/APAP 5/325MG 1 EACH TABLET GT SCH ×2 (08:33→20:11)
[2016-08-23] MEDS: VIT B CMPLX 3/FA/VIT C/BIOTIN 1 TAB TABLET GT SCH (08:33)
[2016-08-23] MEDS: LACTOBACILLUS RHAMNOSUS GG 1 EACH CAP.SPRINK GT SCH ×2 (08:33→17:48)
[2016-08-23] MEDS: CALCITRIOL ORAL SOLUTION 1 MCG/ML GT SCH (08:33)
[2016-08-23] MEDS: hydrALAZINE HCL 25 MG TABLET PO SCH ×2 (08:34→17:00)
[2016-08-23] MEDS: HEPARIN SODIUM, PORCINE 5000 UNITS/1 ML VIAL SQ SCH ×2 (08:37→20:11)
[2016-08-23] MEDS: INSULIN GLARGINE SQ SCH ×2 (08:38→20:19)
[2016-08-23] MEDS: [UNRECOGNIZED DRUG - OTHER] SQ SCH ×2 (08:38→20:19)
[2016-08-23] MEDS: HYDROGEN PEROXIDE 480 ML BOTTLE TP SCH ×2 (09:00→20:12)
[2016-08-23] MEDS: Z GUARD REMEDY 2 OZ OINT TP SCH ×2 (09:00→20:12)
[2016-08-23] MEDS: NYSTATIN TOP POWDER 15 GM BOTTLE TP SCH ×6 (09:00→20:12)
[2016-08-23] MEDS: HYDROGEL DRESSING 90 GM TUBE TP SCH ×2 (09:00→20:12)
[2016-08-23] MEDS: DAKINS HALF STRENGTH (0.25%) 480 ML BOTTLE TOP SCH ×2 (09:00→20:11)
[2016-08-23] MEDS: ZINC OXIDE 30 GM TUBE TP SCH ×4 (09:00→20:12)
--- NOTE | 2016-08-23 11:22 | NUR ---
RT Patient received trach on mech vent. Breath sounds equal bilaterally. Tx given as ordered. No adverse reactions noticed. Vent plugged into red outlet and alarms set and audible. Ambu bag at the bed side.
[2016-08-23 17:57] VITALS: BP 119/73
[2016-08-23 18:05] VITALS: BP 119/73
--- NOTE | 2016-08-23 18:32 | NUR ---
Spoke with Marvel IV pharmacist from [facility] pharmacy. Notified Marvel that Amikacin level still pending. Per Marvel, okay to give Amikacin dose today and just notify them once result obtained d/t pt only gets Amikacin after HD q TThS.
[2016-08-23] MEDS: AMIKACIN 450 MG in IV D5W 100 ML IV SCH (19:28)
[2016-08-23 20:05] VITALS: BP 128/59
[2016-08-23] MEDS: METOPROLOL TARTRATE 50 MG TABLET GT SCH (21:26)
[2016-08-24] VITALS (7 sets, daily range): BP systolic 96–152; BP diastolic 50–87
[2016-08-24] MEDS: IPRATROPIUM NEB FS 0.5 MG/2.5 ML AMPUL.NEB NEB SCH ×4 (01:30→19:36)
[2016-08-24] MEDS: ALBUTEROL FS 2.5 MG/3 ML VIAL.NEB NEB SCH ×4 (01:30→19:36)
[2016-08-24] MEDS: BLOOD SUGAR DIAGNOSTIC 1 EACH STRIP IN SCH ×4 (05:22→23:18)
[2016-08-24] MEDS: POLYVINYL ALCOHOL 15 ML BOTTLE EACHEYE SCH ×4 (05:22→23:18)
[2016-08-24] MEDS: ESOMEPRAZOLE MAG TRIHYDRATE 20 MG CAPSULE.DR GT SCH (05:22)
[2016-08-24] MEDS: RENAL NOVASOURCE 1,000 ML BOTTLE GT PRN (05:23)
[2016-08-24] MEDS: INSULIN REGULAR, HUMAN 100 UNIT/ML 3 ML VIAL SQ PRN ×4 (05:23→23:18)
[2016-08-24] MEDS: INSULIN GLARGINE SQ SCH ×2 (09:00→21:10)
[2016-08-24] MEDS: [UNRECOGNIZED DRUG - OTHER] SQ SCH ×2 (09:00→21:10)
[2016-08-24] MEDS: LACTOBACILLUS RHAMNOSUS GG 1 EACH CAP.SPRINK GT SCH ×2 (09:31→16:31)
[2016-08-24] MEDS: CALCITRIOL ORAL SOLUTION 1 MCG/ML GT SCH (09:31)
[2016-08-24] MEDS: METOPROLOL TARTRATE 50 MG TABLET GT SCH ×2 (09:32→21:25)
[2016-08-24] MEDS: hydrALAZINE HCL 25 MG TABLET PO SCH ×2 (09:39→16:32)
[2016-08-24] MEDS: PROSOURCE / PROSTAT (PYXIS) 30 ML UDC GT SCH ×3 (09:39→16:31)
[2016-08-24] MEDS: HYDROCODONE/APAP 5/325MG 1 EACH TABLET GT SCH ×2 (09:39→21:09)
[2016-08-24] MEDS: ASCORBIC ACID 500 MG TABLET GT SCH (09:39)
[2016-08-24] MEDS: VIT B CMPLX 3/FA/VIT C/BIOTIN 1 TAB TABLET GT SCH (09:39)
[2016-08-24] MEDS: LISINOPRIL (20MG) 20 MG TABLET PO SCH (09:39)
[2016-08-24] MEDS: DAKINS HALF STRENGTH (0.25%) 480 ML BOTTLE TOP SCH ×2 (09:40→21:11)
[2016-08-24] MEDS: HYDROGEN PEROXIDE 480 ML BOTTLE TP SCH ×2 (09:40→21:11)
[2016-08-24] MEDS: HYDROGEL DRESSING 90 GM TUBE TP SCH ×2 (09:40→21:11)
[2016-08-24] MEDS: Z GUARD REMEDY 2 OZ OINT TP SCH ×2 (09:41→21:11)
[2016-08-24] MEDS: NYSTATIN TOP POWDER 15 GM BOTTLE TP SCH ×6 (09:41→21:11)
[2016-08-24] MEDS: ZINC OXIDE 30 GM TUBE TP SCH ×4 (09:41→21:11)
[2016-08-24] MEDS: HEPARIN SODIUM, PORCINE 5000 UNITS/1 ML VIAL SQ SCH ×2 (09:42→21:10)
[2016-08-25] VITALS: BP 111/57
[2016-08-25] MEDS: ALBUTEROL FS 2.5 MG/3 ML VIAL.NEB NEB SCH ×4 (00:54→19:41)
[2016-08-25] MEDS: IPRATROPIUM NEB FS 0.5 MG/2.5 ML AMPUL.NEB NEB SCH ×4 (00:54→19:41)
[2016-08-25] MEDS: POLYVINYL ALCOHOL 15 ML BOTTLE EACHEYE SCH ×4 (06:17→23:37)
[2016-08-25] MEDS: BLOOD SUGAR DIAGNOSTIC 1 EACH STRIP IN SCH ×4 (06:17→23:37)
[2016-08-25] MEDS: ESOMEPRAZOLE MAG TRIHYDRATE 20 MG CAPSULE.DR GT SCH (06:17)
[2016-08-25] MEDS: INSULIN REGULAR, HUMAN 100 UNIT/ML 3 ML VIAL SQ PRN ×4 (06:18→23:38)
[2016-08-25 06:33] VITALS: BP 143/96
[2016-08-25 08:44] VITALS: BP 140/77
[2016-08-25] MEDS: HYDROGEN PEROXIDE 480 ML BOTTLE TP SCH ×2 (09:00→21:47)
[2016-08-25] MEDS: HYDROGEL DRESSING 90 GM TUBE TP SCH ×2 (09:00→21:47)
[2016-08-25] MEDS: DAKINS HALF STRENGTH (0.25%) 480 ML BOTTLE TOP SCH ×2 (09:00→21:47)
[2016-08-25] MEDS: NYSTATIN TOP POWDER 15 GM BOTTLE TP SCH ×6 (09:00→21:47)
[2016-08-25] MEDS: ZINC OXIDE 30 GM TUBE TP SCH ×4 (09:00→21:47)
[2016-08-25] MEDS: Z GUARD REMEDY 2 OZ OINT TP SCH ×2 (09:00→21:47)
[2016-08-25] MEDS: CALCITRIOL ORAL SOLUTION 1 MCG/ML GT SCH (09:46)
[2016-08-25] MEDS: LACTOBACILLUS RHAMNOSUS GG 1 EACH CAP.SPRINK GT SCH ×2 (09:46→17:00)
[2016-08-25] MEDS: PROSOURCE / PROSTAT (PYXIS) 30 ML UDC GT SCH ×3 (09:47→17:00)
[2016-08-25] MEDS: hydrALAZINE HCL 25 MG TABLET PO SCH ×2 (09:47→17:00)
[2016-08-25] MEDS: METOPROLOL TARTRATE 50 MG TABLET GT SCH ×2 (09:47→21:22)
[2016-08-25] MEDS: LISINOPRIL (20MG) 20 MG TABLET PO SCH (09:47)
[2016-08-25] MEDS: VIT B CMPLX 3/FA/VIT C/BIOTIN 1 TAB TABLET GT SCH (09:47)
[2016-08-25] MEDS: ASCORBIC ACID 500 MG TABLET GT SCH (09:47)
[2016-08-25] MEDS: HEPARIN SODIUM, PORCINE 5000 UNITS/1 ML VIAL SQ SCH ×2 (09:48→21:21)
[2016-08-25] MEDS: INSULIN GLARGINE SQ SCH ×2 (09:49→21:21)
[2016-08-25] MEDS: [UNRECOGNIZED DRUG - OTHER] SQ SCH ×2 (09:49→21:21)
--- NOTE | 2016-08-25 10:30 | NUR ---
Called Pharmacist and spoke to mackenzie regarding Amikacin through level 17.3. Per Mackenzie pharmacist do random amikacin level pancho. 08/26 (before dialysis). Hold amikacin dose until amikacin level is available. Noted and carried out.
[2016-08-25] MEDS: HYDROCODONE/APAP 5/325MG 1 EACH TABLET GT SCH ×2 (14:30→21:20)
[2016-08-25 18:30] VITALS: BP 131/69
[2016-08-25 20:37] VITALS: BP 138/76
[2016-08-26 00:27] VITALS: BP 132/76
[2016-08-26] MEDS: IPRATROPIUM NEB FS 0.5 MG/2.5 ML AMPUL.NEB NEB SCH ×4 (02:05→20:28)
[2016-08-26] MEDS: ALBUTEROL FS 2.5 MG/3 ML VIAL.NEB NEB SCH ×4 (02:06→20:28)
[2016-08-26] MEDS: ESOMEPRAZOLE MAG TRIHYDRATE 20 MG CAPSULE.DR GT SCH (05:53)
[2016-08-26] MEDS: POLYVINYL ALCOHOL 15 ML BOTTLE EACHEYE SCH ×4 (05:53→23:03)
[2016-08-26] MEDS: BLOOD SUGAR DIAGNOSTIC 1 EACH STRIP IN SCH ×4 (05:53→23:03)
[2016-08-26] MEDS: INSULIN REGULAR, HUMAN 100 UNIT/ML 3 ML VIAL SQ PRN ×3 (05:54→23:04)
[2016-08-26 06:01] VITALS: BP 128/80
--- NOTE | 2016-08-26 07:01 | NUR ---
RT PATIENT REC'D TRACHED ON [facility] VENT WITH SETTINGS SET PER MD CESARIO ESPINAL. VENT ALARMS CHECKED + AUDIBLE. CUFF PRESSURE CHECKED ARCH SUPPORT MAKER. TRACH SECURE AND IN PROPER POSITION VIA TRACH TIES. PATIENT APPEARS COMFORTABLE AND IN NO DISTRESS AT THIS TIME. PATIENT SUCTIONED WITH MOD AMT OF PALE SEMITHICK SECRETIONS. B/S DIM COARSE. VENT PLUGGED INTO RED OUTLET. AMBU BAG AT [facility]. CONTINUE CURRENT PLAN OF RESPIRATORY CARE. Addendum: 08/26/16 at 1023 by EDMUND NOONAN RT Amended: Links added.
[2016-08-26 08:00] VITALS: BP 148/73
[2016-08-26] MEDS: hydrALAZINE HCL 25 MG TABLET PO SCH ×2 (09:00→17:00)
[2016-08-26] MEDS: PROSOURCE / PROSTAT (PYXIS) 30 ML UDC GT SCH ×3 (09:22→17:00)
[2016-08-26] MEDS: ASCORBIC ACID 500 MG TABLET GT SCH (09:22)
[2016-08-26] MEDS: CALCITRIOL ORAL SOLUTION 1 MCG/ML GT SCH (09:22)
[2016-08-26] MEDS: VIT B CMPLX 3/FA/VIT C/BIOTIN 1 TAB TABLET GT SCH (09:22)
[2016-08-26] MEDS: LACTOBACILLUS RHAMNOSUS GG 1 EACH CAP.SPRINK GT SCH ×2 (09:22→17:00)
[2016-08-26] MEDS: HEPARIN SODIUM, PORCINE 5000 UNITS/1 ML VIAL SQ SCH ×2 (09:23→21:02)
[2016-08-26] MEDS: INSULIN GLARGINE SQ SCH ×2 (09:24→21:02)
[2016-08-26] MEDS: [UNRECOGNIZED DRUG - OTHER] SQ SCH ×2 (09:24→21:02)
--- NOTE | 2016-08-26 10:00 | NUR ---
PATIENT WAS PICKED UP BY TRANSPORT TEAM AND TAKEN OFF SITE TO DIALYSIS.
[2016-08-26] MEDS: HYDROCODONE/APAP 5/325MG 1 EACH TABLET GT SCH ×2 (15:00→21:02)
[2016-08-26] MEDS: HYDROGEN PEROXIDE 480 ML BOTTLE TP SCH ×2 (15:30→21:31)
[2016-08-26] MEDS: ZINC OXIDE 30 GM TUBE TP SCH ×4 (15:30→21:31)
[2016-08-26] MEDS: HYDROGEL DRESSING 90 GM TUBE TP SCH ×2 (15:30→21:31)
[2016-08-26] MEDS: DAKINS HALF STRENGTH (0.25%) 480 ML BOTTLE TOP SCH ×2 (15:30→21:31)
[2016-08-26] MEDS: Z GUARD REMEDY 2 OZ OINT TP SCH ×2 (15:30→21:31)
[2016-08-26] MEDS: NYSTATIN TOP POWDER 15 GM BOTTLE TP SCH ×6 (15:30→21:31)
[2016-08-26 19:13] VITALS: BP 117/72
--- NOTE | 2016-08-26 20:00 | NUR ---
RN NOTES Called lab regarding Amikacin level pending and entry level lab technician stated lab result was still not available since specimen is a send out to [facility] and may take a while to result. Will await for results. Addendum: 08/27/16 at 0217 by CHUY DAMON RN Amikacin on hold as ordered.
[2016-08-26 20:37] VITALS: BP 124/71
[2016-08-26] MEDS: METOPROLOL TARTRATE 50 MG TABLET GT SCH (21:03)
[2016-08-26] MEDS: RENAL NOVASOURCE 1,000 ML BOTTLE GT PRN (21:32)
[2016-08-27 00:11] VITALS: BP 120/70
[2016-08-27] MEDS: IPRATROPIUM NEB FS 0.5 MG/2.5 ML AMPUL.NEB NEB SCH ×4 (01:50→20:11)
[2016-08-27] MEDS: ALBUTEROL FS 2.5 MG/3 ML VIAL.NEB NEB SCH ×4 (01:51→20:11)
[2016-08-27] MEDS: ESOMEPRAZOLE MAG TRIHYDRATE 20 MG CAPSULE.DR GT SCH (05:52)
[2016-08-27] MEDS: POLYVINYL ALCOHOL 15 ML BOTTLE EACHEYE SCH ×4 (05:52→23:33)
[2016-08-27 06:11] VITALS: BP 128/70
[2016-08-27] MEDS: BLOOD SUGAR DIAGNOSTIC 1 EACH STRIP IN SCH ×4 (06:21→23:33)
[2016-08-27] MEDS: INSULIN REGULAR, HUMAN 100 UNIT/ML 3 ML VIAL SQ PRN ×4 (06:22→23:34)
[2016-08-27 08:00] VITALS: BP 132/80
[2016-08-27] MEDS: ZINC OXIDE 30 GM TUBE TP SCH ×4 (09:00→21:38)
[2016-08-27] MEDS: Z GUARD REMEDY 2 OZ OINT TP SCH ×2 (09:00→21:38)
[2016-08-27] MEDS: NYSTATIN TOP POWDER 15 GM BOTTLE TP SCH ×6 (09:00→21:38)
[2016-08-27] MEDS: CALCITRIOL ORAL SOLUTION 1 MCG/ML GT SCH (09:23)
[2016-08-27] MEDS: METOPROLOL TARTRATE 50 MG TABLET GT SCH ×2 (09:23→21:38)
[2016-08-27] MEDS: LACTOBACILLUS RHAMNOSUS GG 1 EACH CAP.SPRINK GT SCH ×2 (09:23→17:15)
[2016-08-27] MEDS: hydrALAZINE HCL 25 MG TABLET PO SCH ×2 (09:24→17:00)
[2016-08-27] MEDS: ERGOCALCIFEROL (VITAMIN D2) 8,000 UNIT/ML GT SCH (09:24)
[2016-08-27] MEDS: ASCORBIC ACID 500 MG TABLET GT SCH (09:24)
[2016-08-27] MEDS: VIT B CMPLX 3/FA/VIT C/BIOTIN 1 TAB TABLET GT SCH (09:24)
[2016-08-27] MEDS: PROSOURCE / PROSTAT (PYXIS) 30 ML UDC GT SCH ×3 (09:24→17:15)
[2016-08-27] MEDS: LISINOPRIL (20MG) 20 MG TABLET PO SCH (09:25)
[2016-08-27] MEDS: [UNRECOGNIZED DRUG - OTHER] SQ SCH ×2 (09:27→21:04)
[2016-08-27] MEDS: HEPARIN SODIUM, PORCINE 5000 UNITS/1 ML VIAL SQ SCH ×2 (09:27→21:04)
[2016-08-27] MEDS: INSULIN GLARGINE SQ SCH ×2 (09:27→21:04)
[2016-08-27 12:00] VITALS: BP 122/69
--- NOTE | 2016-08-27 12:09 | NUR ---
Received a call from Dryden from [facility] pharmacy and reported Amikacin result of 9.0, new order given to DC previous dose of Amikacin and to start with 250 mg in AM after dialysis, do a random trough level on Saturday 09/02 before dialysis. All orders noted and carried out.
[2016-08-27] MEDS: HYDROCODONE/APAP 5/325MG 1 EACH TABLET GT SCH ×2 (17:06→21:03)
[2016-08-27 18:00] VITALS: BP 107/64
[2016-08-27] MEDS: HYDROGEN PEROXIDE 480 ML BOTTLE TP SCH ×2 (18:00→21:37)
[2016-08-27] MEDS: DAKINS HALF STRENGTH (0.25%) 480 ML BOTTLE TOP SCH ×2 (18:00→21:37)
[2016-08-27] MEDS: HYDROGEL DRESSING 90 GM TUBE TP SCH ×2 (18:00→21:37)
[2016-08-27 19:56] VITALS: BP 108/51
[2016-08-28 00:26] VITALS: BP 114/60
[2016-08-28] MEDS: IPRATROPIUM NEB FS 0.5 MG/2.5 ML AMPUL.NEB NEB SCH ×4 (01:41→19:43)
[2016-08-28] MEDS: ALBUTEROL FS 2.5 MG/3 ML VIAL.NEB NEB SCH ×4 (01:41→19:43)
[2016-08-28] MEDS: POLYVINYL ALCOHOL 15 ML BOTTLE EACHEYE SCH ×4 (06:03→23:20)
[2016-08-28] MEDS: ESOMEPRAZOLE MAG TRIHYDRATE 20 MG CAPSULE.DR GT SCH (06:03)
[2016-08-28 06:06] VITALS: BP 118/60
[2016-08-28] MEDS: BLOOD SUGAR DIAGNOSTIC 1 EACH STRIP IN SCH ×4 (06:09→23:20)
[2016-08-28] MEDS: INSULIN REGULAR, HUMAN 100 UNIT/ML 3 ML VIAL SQ PRN ×3 (06:09→23:21)
[2016-08-28 08:00] VITALS: BP 131/74
[2016-08-28] MEDS: CALCITRIOL ORAL SOLUTION 1 MCG/ML GT SCH (08:17)
[2016-08-28] MEDS: LACTOBACILLUS RHAMNOSUS GG 1 EACH CAP.SPRINK GT SCH ×2 (08:17→17:00)
[2016-08-28] MEDS: ASCORBIC ACID 500 MG TABLET GT SCH (08:17)
[2016-08-28] MEDS: PROSOURCE / PROSTAT (PYXIS) 30 ML UDC GT SCH ×3 (08:17→17:00)
[2016-08-28] MEDS: HEPARIN SODIUM, PORCINE 5000 UNITS/1 ML VIAL SQ SCH ×2 (08:18→21:04)
[2016-08-28] MEDS: hydrALAZINE HCL 25 MG TABLET PO SCH ×2 (08:19→17:00)
[2016-08-28] MEDS: VIT B CMPLX 3/FA/VIT C/BIOTIN 1 TAB TABLET GT SCH (08:37)
[2016-08-28] MEDS: [UNRECOGNIZED DRUG - OTHER] SQ SCH ×2 (08:37→21:04)
[2016-08-28] MEDS: INSULIN GLARGINE SQ SCH ×2 (08:37→21:04)
[2016-08-28] MEDS: HYDROCODONE/APAP 5/325MG 1 EACH TABLET GT SCH ×2 (08:38→21:04)
[2016-08-28] MEDS: HYDROGEL DRESSING 90 GM TUBE TP SCH ×2 (09:00→21:04)
[2016-08-28] MEDS: Z GUARD REMEDY 2 OZ OINT TP SCH ×2 (09:00→21:05)
[2016-08-28] MEDS: ZINC OXIDE 30 GM TUBE TP SCH ×4 (09:00→21:05)
[2016-08-28] MEDS: NYSTATIN TOP POWDER 15 GM BOTTLE TP SCH ×6 (09:00→21:05)
[2016-08-28] MEDS: HYDROGEN PEROXIDE 480 ML BOTTLE TP SCH ×2 (09:00→21:05)
[2016-08-28] MEDS: DAKINS HALF STRENGTH (0.25%) 480 ML BOTTLE TOP SCH ×2 (14:30→21:04)
[2016-08-28] MEDS: AMIKACIN 250 MG in IV D5W 100 ML IV SCH (16:52)
[2016-08-28 18:22] VITALS: BP 95/53
[2016-08-28] MEDS: LACTULOSE 10 G/15 ML UDC (PYXIS) GT PRN (18:25)
[2016-08-28 20:19] VITALS: BP 121/69
[2016-08-28] MEDS: METOPROLOL TARTRATE 50 MG TABLET GT SCH (21:05)
[2016-08-28] MEDS: CLONIDINE HCL 0.2 MG TABLET GT PRN (23:20)
[2016-08-29 00:06] VITALS: BP 111/48
[2016-08-29] MEDS: IPRATROPIUM NEB FS 0.5 MG/2.5 ML AMPUL.NEB NEB SCH ×4 (01:37→20:00)
[2016-08-29] MEDS: ALBUTEROL FS 2.5 MG/3 ML VIAL.NEB NEB SCH ×4 (01:37→20:00)
[2016-08-29] MEDS: BLOOD SUGAR DIAGNOSTIC 1 EACH STRIP IN SCH ×4 (05:09→23:15)
[2016-08-29] MEDS: POLYVINYL ALCOHOL 15 ML BOTTLE EACHEYE SCH ×4 (05:09→23:15)
[2016-08-29] MEDS: ESOMEPRAZOLE MAG TRIHYDRATE 20 MG CAPSULE.DR GT SCH (05:09)
[2016-08-29] MEDS: CLONIDINE HCL 0.2 MG TABLET GT PRN (05:10)
[2016-08-29] MEDS: RENAL NOVASOURCE 1,000 ML BOTTLE GT PRN (05:10)
[2016-08-29] MEDS: INSULIN REGULAR, HUMAN 100 UNIT/ML 3 ML VIAL SQ PRN ×4 (05:11→23:16)
[2016-08-29 06:18] VITALS: BP 111/59
--- NOTE | 2016-08-29 08:25 | NUR ---
Informed boyfriend John that dentist will be coming Thursday and asked him if he wanted to proceed with the cleaning. He stated that yes he would like to proceed with dental cleaning for resident.
[2016-08-29] MEDS: VIT B CMPLX 3/FA/VIT C/BIOTIN 1 TAB TABLET GT SCH (09:00)
[2016-08-29] MEDS: LACTOBACILLUS RHAMNOSUS GG 1 EACH CAP.SPRINK GT SCH ×2 (09:00→17:21)
[2016-08-29] MEDS: INSULIN GLARGINE SQ SCH ×2 (09:00→21:08)
[2016-08-29] MEDS: METOPROLOL TARTRATE 50 MG TABLET GT SCH ×2 (09:00→21:09)
[2016-08-29] MEDS: [UNRECOGNIZED DRUG - OTHER] SQ SCH ×2 (09:00→21:08)
[2016-08-29] MEDS: HEPARIN SODIUM, PORCINE 5000 UNITS/1 ML VIAL SQ SCH ×2 (09:00→21:07)
[2016-08-29] MEDS: PROSOURCE / PROSTAT (PYXIS) 30 ML UDC GT SCH ×3 (09:00→17:21)
[2016-08-29] MEDS: CALCITRIOL ORAL SOLUTION 1 MCG/ML GT SCH (09:00)
[2016-08-29] MEDS: ASCORBIC ACID 500 MG TABLET GT SCH (09:00)
[2016-08-29] MEDS: hydrALAZINE HCL 25 MG TABLET PO SCH ×2 (09:00→17:00)
[2016-08-29] MEDS: LISINOPRIL (20MG) 20 MG TABLET PO SCH (09:00)
[2016-08-29 12:00] VITALS: BP 121/70
[2016-08-29] MEDS: HYDROCODONE/APAP 5/325MG 1 EACH TABLET GT SCH ×2 (13:01→21:07)
[2016-08-29] MEDS: Z GUARD REMEDY 2 OZ OINT TP SCH ×2 (14:00→21:08)
[2016-08-29] MEDS: HYDROGEN PEROXIDE 480 ML BOTTLE TP SCH ×2 (14:00→21:08)
[2016-08-29] MEDS: HYDROGEL DRESSING 90 GM TUBE TP SCH ×2 (14:00→21:08)
[2016-08-29] MEDS: ZINC OXIDE 30 GM TUBE TP SCH ×4 (14:00→21:08)
[2016-08-29] MEDS: NYSTATIN TOP POWDER 15 GM BOTTLE TP SCH ×6 (14:00→21:08)
[2016-08-29] MEDS: DAKINS HALF STRENGTH (0.25%) 480 ML BOTTLE TOP SCH ×2 (14:00→21:08)
[2016-08-29 18:58] VITALS: BP 116/70
[2016-08-29 19:59] VITALS: BP 133/78
[2016-08-30 00:11] VITALS: BP 137/68
[2016-08-30] MEDS: IPRATROPIUM NEB FS 0.5 MG/2.5 ML AMPUL.NEB NEB SCH ×4 (01:22→19:42)
[2016-08-30] MEDS: ALBUTEROL FS 2.5 MG/3 ML VIAL.NEB NEB SCH ×4 (01:22→19:42)
[2016-08-30] MEDS: BLOOD SUGAR DIAGNOSTIC 1 EACH STRIP IN SCH ×4 (05:07→23:18)
[2016-08-30] MEDS: RENAL NOVASOURCE 1,000 ML BOTTLE GT PRN (05:07)
[2016-08-30] MEDS: ESOMEPRAZOLE MAG TRIHYDRATE 20 MG CAPSULE.DR GT SCH (05:07)
[2016-08-30] MEDS: POLYVINYL ALCOHOL 15 ML BOTTLE EACHEYE SCH ×4 (05:07→23:18)
[2016-08-30] MEDS: INSULIN REGULAR, HUMAN 100 UNIT/ML 3 ML VIAL SQ PRN ×3 (05:07→23:18)
[2016-08-30 06:09] VITALS: BP 146/89
[2016-08-30 08:15] VITALS: BP 144/74
[2016-08-30] MEDS: PROSOURCE / PROSTAT (PYXIS) 30 ML UDC GT SCH ×3 (08:31→17:51)
[2016-08-30] MEDS: VIT B CMPLX 3/FA/VIT C/BIOTIN 1 TAB TABLET GT SCH (08:31)
[2016-08-30] MEDS: CALCITRIOL ORAL SOLUTION 1 MCG/ML GT SCH (08:31)
[2016-08-30] MEDS: HEPARIN SODIUM, PORCINE 5000 UNITS/1 ML VIAL SQ SCH ×2 (08:31→21:13)
[2016-08-30] MEDS: LACTOBACILLUS RHAMNOSUS GG 1 EACH CAP.SPRINK GT SCH ×2 (08:31→17:51)
[2016-08-30] MEDS: ASCORBIC ACID 500 MG TABLET GT SCH (08:31)
[2016-08-30] MEDS: INSULIN GLARGINE SQ SCH ×2 (08:32→21:13)
[2016-08-30] MEDS: [UNRECOGNIZED DRUG - OTHER] SQ SCH ×2 (08:32→21:13)
[2016-08-30] MEDS: hydrALAZINE HCL 25 MG TABLET PO SCH ×2 (08:42→17:51)
[2016-08-30] MEDS: HYDROCODONE/APAP 5/325MG 1 EACH TABLET GT SCH ×2 (15:08→21:12)
[2016-08-30] MEDS: ZINC OXIDE 30 GM TUBE TP SCH ×4 (16:10→21:14)
[2016-08-30] MEDS: DAKINS HALF STRENGTH (0.25%) 480 ML BOTTLE TOP SCH ×2 (16:10→21:13)
[2016-08-30] MEDS: HYDROGEN PEROXIDE 480 ML BOTTLE TP SCH ×2 (16:10→21:13)
[2016-08-30] MEDS: Z GUARD REMEDY 2 OZ OINT TP SCH ×2 (16:10→21:14)
[2016-08-30] MEDS: HYDROGEL DRESSING 90 GM TUBE TP SCH ×2 (16:10→21:13)
[2016-08-30] MEDS: NYSTATIN TOP POWDER 15 GM BOTTLE TP SCH ×6 (16:10→21:14)
[2016-08-30] MEDS: AMIKACIN 250 MG in IV D5W 100 ML IV SCH (17:00)
[2016-08-30 18:21] VITALS: BP 136/77
[2016-08-30 21:09] VITALS: BP 145/75
[2016-08-30] MEDS: METOPROLOL TARTRATE 50 MG TABLET GT SCH (21:14)
[2016-08-30] MEDS: CLONIDINE HCL 0.2 MG TABLET GT PRN (23:18)
[2016-08-31] VITALS (7 sets, daily range): BP systolic 122–161; BP diastolic 68–82
[2016-08-31] MEDS: IPRATROPIUM NEB FS 0.5 MG/2.5 ML AMPUL.NEB NEB SCH ×4 (01:18→19:40)
[2016-08-31] MEDS: ALBUTEROL FS 2.5 MG/3 ML VIAL.NEB NEB SCH ×4 (01:18→19:40)
[2016-08-31] MEDS: RENAL NOVASOURCE 1,000 ML BOTTLE GT PRN (03:53)
[2016-08-31] MEDS: POLYVINYL ALCOHOL 15 ML BOTTLE EACHEYE SCH ×4 (05:05→23:28)
[2016-08-31] MEDS: ESOMEPRAZOLE MAG TRIHYDRATE 20 MG CAPSULE.DR GT SCH (05:05)
[2016-08-31] MEDS: BLOOD SUGAR DIAGNOSTIC 1 EACH STRIP IN SCH ×4 (05:05→23:28)
[2016-08-31] MEDS: INSULIN REGULAR, HUMAN 100 UNIT/ML 3 ML VIAL SQ PRN ×4 (05:08→23:29)
[2016-08-31] MEDS: PROSOURCE / PROSTAT (PYXIS) 30 ML UDC GT SCH ×3 (09:00→17:35)
[2016-08-31] MEDS: LISINOPRIL (20MG) 20 MG TABLET PO SCH (09:00)
[2016-08-31] MEDS: VIT B CMPLX 3/FA/VIT C/BIOTIN 1 TAB TABLET GT SCH (09:00)
[2016-08-31] MEDS: LACTOBACILLUS RHAMNOSUS GG 1 EACH CAP.SPRINK GT SCH ×2 (09:00→17:35)
[2016-08-31] MEDS: CALCITRIOL ORAL SOLUTION 1 MCG/ML GT SCH (09:00)
[2016-08-31] MEDS: hydrALAZINE HCL 25 MG TABLET PO SCH ×2 (09:00→17:35)
[2016-08-31] MEDS: HEPARIN SODIUM, PORCINE 5000 UNITS/1 ML VIAL SQ SCH ×2 (09:00→21:32)
[2016-08-31] MEDS: METOPROLOL TARTRATE 50 MG TABLET GT SCH ×2 (09:00→21:32)
[2016-08-31] MEDS: [UNRECOGNIZED DRUG - OTHER] SQ SCH ×2 (09:00→21:31)
[2016-08-31] MEDS: INSULIN GLARGINE SQ SCH ×2 (09:00→21:31)
[2016-08-31] MEDS: ASCORBIC ACID 500 MG TABLET GT SCH (09:00)
[2016-08-31] MEDS: HYDROCODONE/APAP 5/325MG 1 EACH TABLET GT SCH ×2 (14:30→21:32)
[2016-08-31] MEDS: HYDROGEN PEROXIDE 480 ML BOTTLE TP SCH ×2 (15:00→21:31)
[2016-08-31] MEDS: ZINC OXIDE 30 GM TUBE TP SCH ×4 (15:00→21:31)
[2016-08-31] MEDS: HYDROGEL DRESSING 90 GM TUBE TP SCH ×2 (15:00→21:31)
[2016-08-31] MEDS: Z GUARD REMEDY 2 OZ OINT TP SCH ×2 (15:00→21:31)
[2016-08-31] MEDS: NYSTATIN TOP POWDER 15 GM BOTTLE TP SCH ×6 (15:00→21:31)
[2016-08-31] MEDS: DAKINS HALF STRENGTH (0.25%) 480 ML BOTTLE TOP SCH ×2 (15:00→21:31)
[2016-09-01 00:27] VITALS: BP 152/82
[2016-09-01] MEDS: IPRATROPIUM NEB FS 0.5 MG/2.5 ML AMPUL.NEB NEB SCH ×4 (01:36→19:59)
[2016-09-01] MEDS: ALBUTEROL FS 2.5 MG/3 ML VIAL.NEB NEB SCH ×4 (01:36→19:59)
[2016-09-01] MEDS: POLYVINYL ALCOHOL 15 ML BOTTLE EACHEYE SCH ×4 (05:55→23:28)
[2016-09-01] MEDS: ESOMEPRAZOLE MAG TRIHYDRATE 20 MG CAPSULE.DR GT SCH (05:55)
[2016-09-01] MEDS: BLOOD SUGAR DIAGNOSTIC 1 EACH STRIP IN SCH ×4 (05:55→23:28)
[2016-09-01] MEDS: INSULIN REGULAR, HUMAN 100 UNIT/ML 3 ML VIAL SQ PRN ×4 (05:56→23:29)
[2016-09-01 06:06] VITALS: BP 154/78
[2016-09-01 07:32] VITALS: BP 110/52
[2016-09-01] MEDS: METOPROLOL TARTRATE 50 MG TABLET GT SCH ×2 (09:00→21:09)
[2016-09-01] MEDS: HEPARIN SODIUM, PORCINE 5000 UNITS/1 ML VIAL SQ SCH ×2 (09:00→21:08)
[2016-09-01] MEDS: CALCITRIOL ORAL SOLUTION 1 MCG/ML GT SCH (09:00)
[2016-09-01] MEDS: VIT B CMPLX 3/FA/VIT C/BIOTIN 1 TAB TABLET GT SCH (09:00)
[2016-09-01] MEDS: hydrALAZINE HCL 25 MG TABLET PO SCH ×2 (09:00→16:32)
[2016-09-01] MEDS: ASCORBIC ACID 500 MG TABLET GT SCH (09:00)
[2016-09-01] MEDS: INSULIN GLARGINE SQ SCH ×2 (09:00→21:08)
[2016-09-01] MEDS: [UNRECOGNIZED DRUG - OTHER] SQ SCH ×2 (09:00→21:08)
[2016-09-01] MEDS: LACTOBACILLUS RHAMNOSUS GG 1 EACH CAP.SPRINK GT SCH ×2 (09:00→16:31)
[2016-09-01] MEDS: LISINOPRIL (20MG) 20 MG TABLET PO SCH (09:00)
[2016-09-01] MEDS: PROSOURCE / PROSTAT (PYXIS) 30 ML UDC GT SCH ×3 (09:00→16:31)
[2016-09-01] MEDS: HYDROCODONE/APAP 5/325MG 1 EACH TABLET GT SCH ×2 (14:30→21:08)
[2016-09-01] MEDS: ZINC OXIDE 30 GM TUBE TP SCH ×2 (15:00→21:40)
[2016-09-01] MEDS: DAKINS HALF STRENGTH (0.25%) 480 ML BOTTLE TOP SCH ×2 (15:00→21:40)
[2016-09-01] MEDS: HYDROGEL DRESSING 90 GM TUBE TP SCH ×2 (15:00→21:40)
[2016-09-01] MEDS: NYSTATIN TOP POWDER 15 GM BOTTLE TP SCH ×7 (15:00→21:40)
[2016-09-01] MEDS: HYDROGEN PEROXIDE 480 ML BOTTLE TP SCH ×2 (15:00→21:40)
[2016-09-01] MEDS: Z GUARD REMEDY 2 OZ OINT TP SCH ×2 (15:00→21:40)
[2016-09-01 16:42] VITALS: BP 121/68
[2016-09-01 19:48] VITALS: BP 121/62
[2016-09-02 00:44] VITALS: BP 126/62
[2016-09-02] MEDS: ALBUTEROL FS 2.5 MG/3 ML VIAL.NEB NEB SCH ×5 (01:54→19:41)
[2016-09-02] MEDS: IPRATROPIUM NEB FS 0.5 MG/2.5 ML AMPUL.NEB NEB SCH ×5 (01:54→19:41)
[2016-09-02] MEDS: ESOMEPRAZOLE MAG TRIHYDRATE 20 MG CAPSULE.DR GT SCH (05:19)
[2016-09-02] MEDS: POLYVINYL ALCOHOL 15 ML BOTTLE EACHEYE SCH ×4 (05:19→23:17)
[2016-09-02] MEDS: BLOOD SUGAR DIAGNOSTIC 1 EACH STRIP IN SCH ×4 (05:44→23:17)
[2016-09-02] MEDS: INSULIN REGULAR, HUMAN 100 UNIT/ML 3 ML VIAL SQ PRN ×4 (05:46→23:18)
[2016-09-02 06:08] VITALS: BP 124/62
[2016-09-02 07:36] VITALS: BP 121/55
[2016-09-02] MEDS: hydrALAZINE HCL 25 MG TABLET PO SCH ×2 (09:00→17:00)
[2016-09-02] MEDS: VIT B CMPLX 3/FA/VIT C/BIOTIN 1 TAB TABLET GT SCH (09:06)
[2016-09-02] MEDS: CALCITRIOL ORAL SOLUTION 1 MCG/ML GT SCH (09:06)
[2016-09-02] MEDS: ASCORBIC ACID 500 MG TABLET GT SCH (09:06)
[2016-09-02] MEDS: PROSOURCE / PROSTAT (PYXIS) 30 ML UDC GT SCH ×3 (09:06→17:00)
[2016-09-02] MEDS: LACTOBACILLUS RHAMNOSUS GG 1 EACH CAP.SPRINK GT SCH ×2 (09:06→16:53)
[2016-09-02] MEDS: HEPARIN SODIUM, PORCINE 5000 UNITS/1 ML VIAL SQ SCH ×2 (09:07→21:05)
[2016-09-02] MEDS: INSULIN GLARGINE SQ SCH ×2 (09:08→21:06)
[2016-09-02] MEDS: [UNRECOGNIZED DRUG - OTHER] SQ SCH ×2 (09:08→21:06)
--- NOTE | 2016-09-02 13:05 | NUR ---
Random Amikacin level 10.3. Spoke with IV pharmacist Kavon. Received order to give Amikacin 250 mg IV today and do random Amikacin level on 09/04/16 before hemodialysis.
[2016-09-02] MEDS: HYDROCODONE/APAP 5/325MG 1 EACH TABLET GT SCH ×2 (14:30→21:05)
[2016-09-02] MEDS: NYSTATIN TOP POWDER 15 GM BOTTLE TP SCH ×8 (15:00→21:36)
[2016-09-02] MEDS: HYDROGEN PEROXIDE 480 ML BOTTLE TP SCH ×2 (15:00→21:36)
[2016-09-02] MEDS: ZINC OXIDE 30 GM TUBE TP SCH ×2 (15:00→21:36)
[2016-09-02] MEDS: HYDROGEL DRESSING 90 GM TUBE TP SCH ×2 (15:00→21:36)
[2016-09-02] MEDS: Z GUARD REMEDY 2 OZ OINT TP SCH ×2 (15:00→21:36)
[2016-09-02] MEDS: DAKINS HALF STRENGTH (0.25%) 480 ML BOTTLE TOP SCH ×2 (15:00→21:36)
[2016-09-02 16:46] VITALS: BP 0/0
[2016-09-02 19:12] VITALS: BP 143/66
[2016-09-02] MEDS: AMIKACIN 250 MG in IV D5W 100 ML IV SCH (19:29)
[2016-09-02 19:37] VITALS: BP 147/71
[2016-09-02] MEDS: METOPROLOL TARTRATE 50 MG TABLET GT SCH (21:37)
[2016-09-03] VITALS: BP 132/62
[2016-09-03] MEDS: IPRATROPIUM NEB FS 0.5 MG/2.5 ML AMPUL.NEB NEB SCH ×4 (02:04→20:15)
[2016-09-03] MEDS: ALBUTEROL FS 2.5 MG/3 ML VIAL.NEB NEB SCH ×4 (02:04→20:15)
[2016-09-03] MEDS: ESOMEPRAZOLE MAG TRIHYDRATE 20 MG CAPSULE.DR GT SCH (05:42)
[2016-09-03] MEDS: POLYVINYL ALCOHOL 15 ML BOTTLE EACHEYE SCH ×4 (05:42→23:11)
[2016-09-03] MEDS: BLOOD SUGAR DIAGNOSTIC 1 EACH STRIP IN SCH ×4 (06:01→23:11)
[2016-09-03] MEDS: INSULIN REGULAR, HUMAN 100 UNIT/ML 3 ML VIAL SQ PRN ×4 (06:02→23:11)
[2016-09-03 06:10] VITALS: BP 128/68
[2016-09-03 07:39] VITALS: BP 122/64
[2016-09-03] MEDS: VIT B CMPLX 3/FA/VIT C/BIOTIN 1 TAB TABLET GT SCH (08:32)
[2016-09-03] MEDS: METOPROLOL TARTRATE 50 MG TABLET GT SCH ×2 (08:32→21:10)
[2016-09-03] MEDS: LACTOBACILLUS RHAMNOSUS GG 1 EACH CAP.SPRINK GT SCH ×2 (08:32→16:32)
[2016-09-03] MEDS: CALCITRIOL ORAL SOLUTION 1 MCG/ML GT SCH (08:32)
[2016-09-03] MEDS: ERGOCALCIFEROL (VITAMIN D2) 8,000 UNIT/ML GT SCH (08:33)
[2016-09-03] MEDS: ASCORBIC ACID 500 MG TABLET GT SCH (08:33)
[2016-09-03] MEDS: hydrALAZINE HCL 25 MG TABLET PO SCH ×2 (08:33→16:32)
[2016-09-03] MEDS: PROSOURCE / PROSTAT (PYXIS) 30 ML UDC GT SCH ×3 (08:33→16:32)
[2016-09-03] MEDS: HYDROCODONE/APAP 5/325MG 1 EACH TABLET GT SCH ×2 (08:33→21:02)
[2016-09-03] MEDS: LISINOPRIL (20MG) 20 MG TABLET PO SCH (08:33)
[2016-09-03] MEDS: HEPARIN SODIUM, PORCINE 5000 UNITS/1 ML VIAL SQ SCH ×2 (08:36→21:10)
[2016-09-03] MEDS: [UNRECOGNIZED DRUG - OTHER] SQ SCH ×2 (08:43→21:10)
[2016-09-03] MEDS: INSULIN GLARGINE SQ SCH ×2 (08:43→21:10)
[2016-09-03] MEDS: ZINC OXIDE 30 GM TUBE TP SCH ×2 (09:00→21:35)
[2016-09-03] MEDS: HYDROGEL DRESSING 90 GM TUBE TP SCH ×2 (09:00→21:34)
[2016-09-03] MEDS: HYDROGEN PEROXIDE 480 ML BOTTLE TP SCH ×2 (09:00→21:34)
[2016-09-03] MEDS: Z GUARD REMEDY 2 OZ OINT TP SCH ×2 (09:00→21:35)
[2016-09-03] MEDS: NYSTATIN TOP POWDER 15 GM BOTTLE TP SCH ×8 (09:00→21:35)
[2016-09-03] MEDS: DAKINS HALF STRENGTH (0.25%) 480 ML BOTTLE TOP SCH ×2 (09:00→21:34)
[2016-09-03 15:25] VITALS: BP 122/64
--- NOTE | 2016-09-03 16:25 | NUR ---
Spoke with Susanna, RIGOBERTO OVEN BUILDER asking for stop date of Amikacin. Per Susanna, she will be in tonight to review & assess patient's GT cellulitis and decide if she will continue the ATB. Pharmacy notified.
[2016-09-03] MEDS: RENAL NOVASOURCE 1,000 ML BOTTLE GT PRN (16:33)
[2016-09-03 18:14] VITALS: BP 130/80
[2016-09-03 20:00] VITALS: BP 145/63
[2016-09-04 00:41] VITALS: BP 136/68
[2016-09-04] MEDS: ALBUTEROL FS 2.5 MG/3 ML VIAL.NEB NEB SCH ×5 (01:59→20:37)
[2016-09-04] MEDS: IPRATROPIUM NEB FS 0.5 MG/2.5 ML AMPUL.NEB NEB SCH ×5 (01:59→20:37)
[2016-09-04] MEDS: POLYVINYL ALCOHOL 15 ML BOTTLE EACHEYE SCH ×4 (05:51→23:40)
[2016-09-04] MEDS: ESOMEPRAZOLE MAG TRIHYDRATE 20 MG CAPSULE.DR GT SCH (05:51)
[2016-09-04] MEDS: BLOOD SUGAR DIAGNOSTIC 1 EACH STRIP IN SCH ×4 (05:56→23:40)
[2016-09-04] MEDS: INSULIN REGULAR, HUMAN 100 UNIT/ML 3 ML VIAL SQ PRN ×3 (05:57→23:40)
[2016-09-04 06:06] VITALS: BP 130/72
[2016-09-04 07:30] VITALS: BP 149/94
[2016-09-04] MEDS: HYDROGEL DRESSING 90 GM TUBE TP SCH ×2 (09:00→21:13)
[2016-09-04] MEDS: Z GUARD REMEDY 2 OZ OINT TP SCH ×2 (09:00→21:14)
[2016-09-04] MEDS: ZINC OXIDE 30 GM TUBE TP SCH ×2 (09:00→21:14)
[2016-09-04] MEDS: hydrALAZINE HCL 25 MG TABLET PO SCH ×2 (09:00→17:37)
[2016-09-04] MEDS: CALCITRIOL ORAL SOLUTION 1 MCG/ML GT SCH (09:00)
[2016-09-04] MEDS: DAKINS HALF STRENGTH (0.25%) 480 ML BOTTLE TOP SCH ×2 (09:00→21:13)
[2016-09-04] MEDS: NYSTATIN TOP POWDER 15 GM BOTTLE TP SCH ×8 (09:00→21:14)
[2016-09-04] MEDS: HYDROGEN PEROXIDE 480 ML BOTTLE TP SCH ×2 (09:00→21:13)
[2016-09-04] MEDS: PROSOURCE / PROSTAT (PYXIS) 30 ML UDC GT SCH ×3 (09:01→17:22)
[2016-09-04] MEDS: VIT B CMPLX 3/FA/VIT C/BIOTIN 1 TAB TABLET GT SCH (09:01)
[2016-09-04] MEDS: LACTOBACILLUS RHAMNOSUS GG 1 EACH CAP.SPRINK GT SCH ×2 (09:01→17:22)
[2016-09-04] MEDS: ASCORBIC ACID 500 MG TABLET GT SCH (09:01)
[2016-09-04] MEDS: HYDROCODONE/APAP 5/325MG 1 EACH TABLET GT SCH ×2 (09:01→21:11)
[2016-09-04] MEDS: HEPARIN SODIUM, PORCINE 5000 UNITS/1 ML VIAL SQ SCH ×2 (09:02→21:11)
[2016-09-04] MEDS: [UNRECOGNIZED DRUG - OTHER] SQ SCH ×2 (09:03→21:12)
[2016-09-04] MEDS: INSULIN GLARGINE SQ SCH ×2 (09:03→21:12)
[2016-09-04 14:53] VITALS: BP 149/70
[2016-09-04] MEDS: AMIKACIN 250 MG in IV D5W 100 ML IV SCH (15:00)
--- NOTE | 2016-09-04 15:00 | NUR ---
Seen by Hellen Leija NP with no new order.
[2016-09-04] MEDS: LACTULOSE 10 G/15 ML UDC (PYXIS) GT PRN (17:39)
[2016-09-04 18:22] VITALS: BP 150/89
[2016-09-04 20:00] VITALS: BP 139/66
[2016-09-04] MEDS: RENAL NOVASOURCE 1,000 ML BOTTLE GT PRN (21:15)
[2016-09-04] MEDS: METOPROLOL TARTRATE 50 MG TABLET GT SCH (21:15)
[2016-09-05 00:03] VITALS: BP 154/74
[2016-09-05] MEDS: ALBUTEROL FS 2.5 MG/3 ML VIAL.NEB NEB SCH ×4 (01:54→20:03)
[2016-09-05] MEDS: IPRATROPIUM NEB FS 0.5 MG/2.5 ML AMPUL.NEB NEB SCH ×4 (01:54→20:03)
[2016-09-05 06:17] VITALS: BP 146/70
[2016-09-05] MEDS: BLOOD SUGAR DIAGNOSTIC 1 EACH STRIP IN SCH ×4 (06:25→23:43)
[2016-09-05] MEDS: POLYVINYL ALCOHOL 15 ML BOTTLE EACHEYE SCH ×4 (06:25→23:43)
[2016-09-05] MEDS: ESOMEPRAZOLE MAG TRIHYDRATE 20 MG CAPSULE.DR GT SCH (06:25)
[2016-09-05] MEDS: INSULIN REGULAR, HUMAN 100 UNIT/ML 3 ML VIAL SQ PRN ×4 (06:26→23:45)
[2016-09-05] MEDS: LACTOBACILLUS RHAMNOSUS GG 1 EACH CAP.SPRINK GT SCH ×2 (09:55→16:30)
[2016-09-05] MEDS: CALCITRIOL ORAL SOLUTION 1 MCG/ML GT SCH (09:55)
[2016-09-05] MEDS: HYDROCODONE/APAP 5/325MG 1 EACH TABLET GT SCH ×2 (09:56→21:14)
[2016-09-05] MEDS: METOPROLOL TARTRATE 50 MG TABLET GT SCH ×2 (09:56→21:17)
[2016-09-05] MEDS: PROSOURCE / PROSTAT (PYXIS) 30 ML UDC GT SCH ×3 (09:56→16:30)
[2016-09-05] MEDS: VIT B CMPLX 3/FA/VIT C/BIOTIN 1 TAB TABLET GT SCH (09:56)
[2016-09-05] MEDS: hydrALAZINE HCL 25 MG TABLET PO SCH ×2 (09:57→16:34)
[2016-09-05] MEDS: ASCORBIC ACID 500 MG TABLET GT SCH (09:57)
[2016-09-05] MEDS: HEPARIN SODIUM, PORCINE 5000 UNITS/1 ML VIAL SQ SCH ×2 (09:57→21:15)
[2016-09-05] MEDS: LISINOPRIL (20MG) 20 MG TABLET PO SCH (09:57)
[2016-09-05] MEDS: ZINC OXIDE 30 GM TUBE TP SCH ×2 (10:00→21:16)
[2016-09-05] MEDS: Z GUARD REMEDY 2 OZ OINT TP SCH ×2 (10:00→21:16)
[2016-09-05] MEDS: HYDROGEL DRESSING 90 GM TUBE TP SCH ×2 (10:00→21:16)
[2016-09-05] MEDS: DAKINS HALF STRENGTH (0.25%) 480 ML BOTTLE TOP SCH ×2 (10:00→21:16)
[2016-09-05] MEDS: HYDROGEN PEROXIDE 480 ML BOTTLE TP SCH ×2 (10:00→21:16)
[2016-09-05] MEDS: NYSTATIN TOP POWDER 15 GM BOTTLE TP SCH ×8 (10:00→21:16)
[2016-09-05] MEDS: INSULIN GLARGINE SQ SCH ×2 (10:12→21:15)
[2016-09-05] MEDS: [UNRECOGNIZED DRUG - OTHER] SQ SCH ×2 (10:12→21:15)
[2016-09-05 13:55] VITALS: BP 135/80
--- NOTE | 2016-09-05 16:00 | NUR ---
INTERDISCIPLINARY PLAN OF CARE CONFERENCE was held today. Resident's boyfriend John unable to attend. Dr. Morejon and the interdisciplinary team reviewed the current plan of care in detail. New orders were reviewed. Resident was started on medication for abdominal cellulitis. Will wait for stop date. No other changes.
[2016-09-05 18:31] VITALS: BP 140/82
[2016-09-05 19:57] VITALS: BP 139/67
[2016-09-05] MEDS: RENAL NOVASOURCE 1,000 ML BOTTLE GT PRN (20:17)
[2016-09-06 00:50] VITALS: BP 138/73
[2016-09-06] MEDS: IPRATROPIUM NEB FS 0.5 MG/2.5 ML AMPUL.NEB NEB SCH ×4 (01:44→19:18)
[2016-09-06] MEDS: ALBUTEROL FS 2.5 MG/3 ML VIAL.NEB NEB SCH ×4 (01:44→19:18)
[2016-09-06] MEDS: ESOMEPRAZOLE MAG TRIHYDRATE 20 MG CAPSULE.DR GT SCH (05:20)
[2016-09-06] MEDS: BLOOD SUGAR DIAGNOSTIC 1 EACH STRIP IN SCH ×4 (05:20→23:21)
[2016-09-06] MEDS: POLYVINYL ALCOHOL 15 ML BOTTLE EACHEYE SCH ×4 (05:20→23:21)
[2016-09-06] MEDS: INSULIN REGULAR, HUMAN 100 UNIT/ML 3 ML VIAL SQ PRN ×2 (05:21→23:23)
[2016-09-06 06:10] VITALS: BP 159/74
[2016-09-06 08:00] VITALS: BP 147/75
[2016-09-06] MEDS: ASCORBIC ACID 500 MG TABLET GT SCH (08:32)
[2016-09-06] MEDS: LACTOBACILLUS RHAMNOSUS GG 1 EACH CAP.SPRINK GT SCH ×2 (08:32→16:30)
[2016-09-06] MEDS: PROSOURCE / PROSTAT (PYXIS) 30 ML UDC GT SCH ×3 (08:32→16:30)
[2016-09-06] MEDS: CALCITRIOL ORAL SOLUTION 1 MCG/ML GT SCH (08:32)
[2016-09-06] MEDS: VIT B CMPLX 3/FA/VIT C/BIOTIN 1 TAB TABLET GT SCH (08:32)
[2016-09-06] MEDS: HEPARIN SODIUM, PORCINE 5000 UNITS/1 ML VIAL SQ SCH ×2 (08:33→20:28)
[2016-09-06] MEDS: hydrALAZINE HCL 25 MG TABLET PO SCH ×2 (08:33→16:30)
[2016-09-06] MEDS: [UNRECOGNIZED DRUG - OTHER] SQ SCH ×2 (08:34→20:29)
[2016-09-06] MEDS: INSULIN GLARGINE SQ SCH ×2 (08:34→20:29)
[2016-09-06] MEDS: HYDROCODONE/APAP 5/325MG 1 EACH TABLET GT SCH ×2 (14:00→20:28)
[2016-09-06] MEDS: HYDROGEN PEROXIDE 480 ML BOTTLE TP SCH ×2 (15:00→20:29)
[2016-09-06] MEDS: HYDROGEL DRESSING 90 GM TUBE TP SCH ×2 (15:00→20:29)
[2016-09-06] MEDS: NYSTATIN TOP POWDER 15 GM BOTTLE TP SCH ×8 (15:00→20:30)
[2016-09-06] MEDS: DAKINS HALF STRENGTH (0.25%) 480 ML BOTTLE TOP SCH ×2 (15:00→20:29)
[2016-09-06] MEDS: ZINC OXIDE 30 GM TUBE TP SCH ×2 (15:00→20:30)
[2016-09-06] MEDS: Z GUARD REMEDY 2 OZ OINT TP SCH ×2 (15:00→20:30)
[2016-09-06 16:00] VITALS: BP 140/70
[2016-09-06] MEDS: LACTULOSE 10 G/15 ML UDC (PYXIS) GT PRN (17:31)
[2016-09-06 18:00] VITALS: BP 136/68
[2016-09-06] MEDS: AMIKACIN 250 MG in IV D5W 100 ML IV SCH (18:00)
--- NOTE | 2016-09-06 18:00 | NUR ---
Spoke with Susanna, THOMAS, ID asking for stop date for Amikacin. Stated that it is OK to give the dose today and she will be in tonight and reassessed GT site and evaluate the need to continue ATB. IV Amikacin given. Endorsed.
[2016-09-06 19:56] VITALS: BP 160/73
[2016-09-06] MEDS: RENAL NOVASOURCE 1,000 ML BOTTLE GT PRN (20:31)
[2016-09-06] MEDS: METOPROLOL TARTRATE 50 MG TABLET GT SCH (21:03)
[2016-09-07 00:46] VITALS: BP 160/77
[2016-09-07] MEDS: IPRATROPIUM NEB FS 0.5 MG/2.5 ML AMPUL.NEB NEB SCH ×4 (00:51→19:30)
[2016-09-07] MEDS: ALBUTEROL FS 2.5 MG/3 ML VIAL.NEB NEB SCH ×4 (00:51→19:30)
--- NOTE | 2016-09-07 02:15 | NUR ---
Seen and examined by Susanna Gandhi with new order to discontinue Amikacin.GT site looks good/better.Will carry out orders.
[2016-09-07] MEDS: BLOOD SUGAR DIAGNOSTIC 1 EACH STRIP IN SCH ×3 (05:29→17:29)
[2016-09-07] MEDS: ESOMEPRAZOLE MAG TRIHYDRATE 20 MG CAPSULE.DR GT SCH (05:29)
[2016-09-07] MEDS: POLYVINYL ALCOHOL 15 ML BOTTLE EACHEYE SCH ×3 (05:29→17:29)
[2016-09-07] MEDS: INSULIN REGULAR, HUMAN 100 UNIT/ML 3 ML VIAL SQ PRN ×3 (05:30→17:30)
[2016-09-07] MEDS: CLONIDINE HCL 0.2 MG TABLET GT PRN (05:30)
[2016-09-07 06:00] VITALS: BP 166/79
[2016-09-07] MEDS: CALCITRIOL ORAL SOLUTION 1 MCG/ML GT SCH (08:46)
[2016-09-07] MEDS: LACTOBACILLUS RHAMNOSUS GG 1 EACH CAP.SPRINK GT SCH ×2 (08:46→16:18)
[2016-09-07] MEDS: METOPROLOL TARTRATE 50 MG TABLET GT SCH ×2 (08:46→22:00)
[2016-09-07] MEDS: VIT B CMPLX 3/FA/VIT C/BIOTIN 1 TAB TABLET GT SCH (08:46)
[2016-09-07] MEDS: PROSOURCE / PROSTAT (PYXIS) 30 ML UDC GT SCH ×3 (08:47→16:18)
[2016-09-07] MEDS: ASCORBIC ACID 500 MG TABLET GT SCH (08:47)
[2016-09-07 08:50] VITALS: BP 158/90
[2016-09-07] MEDS: HYDROCODONE/APAP 5/325MG 1 EACH TABLET GT SCH ×2 (09:00→21:00)
[2016-09-07] MEDS: LISINOPRIL (20MG) 20 MG TABLET PO SCH (09:35)
[2016-09-07] MEDS: hydrALAZINE HCL 25 MG TABLET PO SCH ×2 (09:35→16:18)
[2016-09-07] MEDS: Z GUARD REMEDY 2 OZ OINT TP SCH ×2 (09:36→21:04)
[2016-09-07] MEDS: DAKINS HALF STRENGTH (0.25%) 480 ML BOTTLE TOP SCH ×2 (09:36→21:03)
[2016-09-07] MEDS: HEPARIN SODIUM, PORCINE 5000 UNITS/1 ML VIAL SQ SCH ×2 (09:36→21:02)
[2016-09-07] MEDS: NYSTATIN TOP POWDER 15 GM BOTTLE TP SCH ×8 (09:36→21:04)
[2016-09-07] MEDS: HYDROGEL DRESSING 90 GM TUBE TP SCH ×2 (09:36→21:04)
[2016-09-07] MEDS: HYDROGEN PEROXIDE 480 ML BOTTLE TP SCH ×2 (09:36→21:04)
[2016-09-07] MEDS: ZINC OXIDE 30 GM TUBE TP SCH ×2 (09:37→21:04)
[2016-09-07] MEDS: [UNRECOGNIZED DRUG - OTHER] SQ SCH ×2 (09:47→21:03)
[2016-09-07] MEDS: INSULIN GLARGINE SQ SCH ×2 (09:47→21:03)
[2016-09-07 13:30] VITALS: BP 142/62
[2016-09-07 18:13] VITALS: BP 146/74
[2016-09-07 19:31] VITALS: BP 117/61
[2016-09-08 00:19] VITALS: BP 139/77
[2016-09-08] MEDS: BLOOD SUGAR DIAGNOSTIC 1 EACH STRIP IN SCH ×4 (00:23→18:00)
[2016-09-08] MEDS: POLYVINYL ALCOHOL 15 ML BOTTLE EACHEYE SCH ×4 (00:23→17:47)
[2016-09-08] MEDS: INSULIN REGULAR, HUMAN 100 UNIT/ML 3 ML VIAL SQ PRN ×4 (00:24→19:03)
[2016-09-08] MEDS: ALBUTEROL FS 2.5 MG/3 ML VIAL.NEB NEB SCH ×4 (02:11→19:41)
[2016-09-08] MEDS: IPRATROPIUM NEB FS 0.5 MG/2.5 ML AMPUL.NEB NEB SCH ×4 (02:11→19:41)
[2016-09-08] MEDS: ESOMEPRAZOLE MAG TRIHYDRATE 20 MG CAPSULE.DR GT SCH (05:22)
[2016-09-08 06:48] VITALS: BP 144/80
[2016-09-08 07:46] VITALS: BP 112/60
[2016-09-08] MEDS: Z GUARD REMEDY 2 OZ OINT TP SCH ×2 (09:00→21:27)
[2016-09-08] MEDS: ZINC OXIDE 30 GM TUBE TP SCH ×2 (09:00→21:27)
[2016-09-08] MEDS: hydrALAZINE HCL 25 MG TABLET PO SCH ×2 (09:00→17:47)
[2016-09-08] MEDS: DAKINS HALF STRENGTH (0.25%) 480 ML BOTTLE TOP SCH ×2 (09:00→21:27)
[2016-09-08] MEDS: HYDROGEN PEROXIDE 480 ML BOTTLE TP SCH ×2 (09:00→21:27)
[2016-09-08] MEDS: HYDROGEL DRESSING 90 GM TUBE TP SCH ×2 (09:00→21:27)
[2016-09-08] MEDS: NYSTATIN TOP POWDER 15 GM BOTTLE TP SCH ×8 (09:00→21:27)
[2016-09-08] MEDS: METOPROLOL TARTRATE 50 MG TABLET GT SCH ×2 (09:50→21:28)
[2016-09-08] MEDS: LACTOBACILLUS RHAMNOSUS GG 1 EACH CAP.SPRINK GT SCH ×2 (09:50→17:47)
[2016-09-08] MEDS: CALCITRIOL ORAL SOLUTION 1 MCG/ML GT SCH (09:50)
[2016-09-08] MEDS: VIT B CMPLX 3/FA/VIT C/BIOTIN 1 TAB TABLET GT SCH (09:51)
[2016-09-08] MEDS: ASCORBIC ACID 500 MG TABLET GT SCH (09:51)
[2016-09-08] MEDS: HYDROCODONE/APAP 5/325MG 1 EACH TABLET GT SCH ×2 (09:51→21:25)
[2016-09-08] MEDS: PROSOURCE / PROSTAT (PYXIS) 30 ML UDC GT SCH ×3 (09:51→17:47)
[2016-09-08] MEDS: LISINOPRIL (20MG) 20 MG TABLET PO SCH (09:52)
[2016-09-08] MEDS: HEPARIN SODIUM, PORCINE 5000 UNITS/1 ML VIAL SQ SCH ×2 (09:53→21:26)
[2016-09-08] MEDS: [UNRECOGNIZED DRUG - OTHER] SQ SCH ×2 (09:57→21:27)
[2016-09-08] MEDS: INSULIN GLARGINE SQ SCH ×2 (09:57→21:27)
[2016-09-08 16:20] VITALS: BP 135/76
[2016-09-08 19:18] VITALS: BP 138/77
[2016-09-08 19:57] VITALS: BP 140/73
[2016-09-09] MEDS: BLOOD SUGAR DIAGNOSTIC 1 EACH STRIP IN SCH ×4 (00:49→17:39)
[2016-09-09] MEDS: POLYVINYL ALCOHOL 15 ML BOTTLE EACHEYE SCH ×4 (00:49→17:39)
[2016-09-09] MEDS: INSULIN REGULAR, HUMAN 100 UNIT/ML 3 ML VIAL SQ PRN ×2 (00:50→05:41)
[2016-09-09 00:58] VITALS: BP 136/69
[2016-09-09] MEDS: IPRATROPIUM NEB FS 0.5 MG/2.5 ML AMPUL.NEB NEB SCH ×4 (01:13→20:55)
[2016-09-09] MEDS: ALBUTEROL FS 2.5 MG/3 ML VIAL.NEB NEB SCH ×4 (01:13→20:55)
[2016-09-09] MEDS: ESOMEPRAZOLE MAG TRIHYDRATE 20 MG CAPSULE.DR GT SCH (05:39)
[2016-09-09 06:36] VITALS: BP 140/62
[2016-09-09 07:52] VITALS: BP 103/59
[2016-09-09] MEDS: CALCITRIOL ORAL SOLUTION 1 MCG/ML GT SCH (08:41)
[2016-09-09] MEDS: VIT B CMPLX 3/FA/VIT C/BIOTIN 1 TAB TABLET GT SCH (08:41)
[2016-09-09] MEDS: LACTOBACILLUS RHAMNOSUS GG 1 EACH CAP.SPRINK GT SCH ×2 (08:41→17:38)
[2016-09-09] MEDS: ASCORBIC ACID 500 MG TABLET GT SCH (08:42)
[2016-09-09] MEDS: hydrALAZINE HCL 25 MG TABLET PO SCH ×2 (08:42→17:00)
[2016-09-09] MEDS: PROSOURCE / PROSTAT (PYXIS) 30 ML UDC GT SCH ×3 (08:42→17:38)
[2016-09-09] MEDS: HEPARIN SODIUM, PORCINE 5000 UNITS/1 ML VIAL SQ SCH ×2 (08:43→20:49)
[2016-09-09] MEDS: INSULIN GLARGINE SQ SCH ×2 (08:44→20:49)
[2016-09-09] MEDS: [UNRECOGNIZED DRUG - OTHER] SQ SCH ×2 (08:44→20:49)
[2016-09-09 14:00] VITALS: BP 125/73
[2016-09-09] MEDS: HYDROCODONE/APAP 5/325MG 1 EACH TABLET GT SCH ×2 (14:00→20:47)
[2016-09-09] MEDS: ZINC OXIDE 30 GM TUBE TP SCH ×2 (15:00→20:50)
[2016-09-09] MEDS: HYDROGEL DRESSING 90 GM TUBE TP SCH ×2 (15:00→20:50)
[2016-09-09] MEDS: HYDROGEN PEROXIDE 480 ML BOTTLE TP SCH ×2 (15:00→20:50)
[2016-09-09] MEDS: NYSTATIN TOP POWDER 15 GM BOTTLE TP SCH ×8 (15:00→20:50)
[2016-09-09] MEDS: DAKINS HALF STRENGTH (0.25%) 480 ML BOTTLE TOP SCH ×2 (15:00→20:50)
[2016-09-09] MEDS: Z GUARD REMEDY 2 OZ OINT TP SCH ×2 (15:00→20:50)
[2016-09-09 18:00] VITALS: BP 117/54
[2016-09-09 19:50] VITALS: BP 133/69
[2016-09-09] MEDS: METOPROLOL TARTRATE 50 MG TABLET GT SCH (21:32)
[2016-09-10] MEDS: INSULIN REGULAR, HUMAN 100 UNIT/ML 3 ML VIAL SQ PRN ×5 (00:34→23:47)
[2016-09-10] MEDS: BLOOD SUGAR DIAGNOSTIC 1 EACH STRIP IN SCH ×5 (00:34→23:45)
[2016-09-10] MEDS: POLYVINYL ALCOHOL 15 ML BOTTLE EACHEYE SCH ×5 (00:40→23:45)
[2016-09-10 00:47] VITALS: BP 136/68
[2016-09-10] MEDS: ALBUTEROL FS 2.5 MG/3 ML VIAL.NEB NEB SCH ×4 (01:40→19:47)
[2016-09-10] MEDS: IPRATROPIUM NEB FS 0.5 MG/2.5 ML AMPUL.NEB NEB SCH ×4 (01:40→19:47)
[2016-09-10] MEDS: ESOMEPRAZOLE MAG TRIHYDRATE 20 MG CAPSULE.DR GT SCH (05:38)
[2016-09-10 06:13] VITALS: BP 142/63
[2016-09-10 07:44] VITALS: BP 128/73
[2016-09-10] MEDS: NYSTATIN TOP POWDER 15 GM BOTTLE TP SCH ×8 (09:00→21:35)
[2016-09-10] MEDS: HEPARIN SODIUM, PORCINE 5000 UNITS/1 ML VIAL SQ SCH ×2 (09:00→21:33)
[2016-09-10] MEDS: HYDROCODONE/APAP 5/325MG 1 EACH TABLET GT SCH ×3 (09:00→21:33)
[2016-09-10] MEDS: LACTOBACILLUS RHAMNOSUS GG 1 EACH CAP.SPRINK GT SCH ×2 (09:00→17:39)
[2016-09-10] MEDS: HYDROGEN PEROXIDE 480 ML BOTTLE TP SCH ×2 (09:00→21:34)
[2016-09-10] MEDS: DAKINS HALF STRENGTH (0.25%) 480 ML BOTTLE TOP SCH ×2 (09:00→21:34)
[2016-09-10] MEDS: CALCITRIOL ORAL SOLUTION 1 MCG/ML GT SCH (09:00)
[2016-09-10] MEDS: ERGOCALCIFEROL (VITAMIN D2) 8,000 UNIT/ML GT SCH (09:00)
[2016-09-10] MEDS: [UNRECOGNIZED DRUG - OTHER] SQ SCH ×2 (09:00→21:34)
[2016-09-10] MEDS: LISINOPRIL (20MG) 20 MG TABLET PO SCH (09:00)
[2016-09-10] MEDS: ASCORBIC ACID 500 MG TABLET GT SCH (09:00)
[2016-09-10] MEDS: VIT B CMPLX 3/FA/VIT C/BIOTIN 1 TAB TABLET GT SCH (09:00)
[2016-09-10] MEDS: hydrALAZINE HCL 25 MG TABLET PO SCH ×2 (09:00→17:39)
[2016-09-10] MEDS: PROSOURCE / PROSTAT (PYXIS) 30 ML UDC GT SCH ×3 (09:00→17:39)
[2016-09-10] MEDS: Z GUARD REMEDY 2 OZ OINT TP SCH ×2 (09:00→21:35)
[2016-09-10] MEDS: METOPROLOL TARTRATE 50 MG TABLET GT SCH ×2 (09:00→21:35)
[2016-09-10] MEDS: ZINC OXIDE 30 GM TUBE TP SCH ×2 (09:00→21:35)
[2016-09-10] MEDS: INSULIN GLARGINE SQ SCH ×2 (09:00→21:34)
[2016-09-10] MEDS: HYDROGEL DRESSING 90 GM TUBE TP SCH ×2 (09:00→21:34)
[2016-09-10] MEDS: RENAL NOVASOURCE 1,000 ML BOTTLE GT PRN (11:00)
[2016-09-10 14:15] VITALS: BP 138/72
--- NOTE | 2016-09-10 17:55 | NUR ---
Seen and examined by Hellen Leija NP for Dr. Morejon, barrel rifler broach, NNO given.
[2016-09-10 18:18] VITALS: BP 130/75
[2016-09-10 20:12] VITALS: BP 144/78
[2016-09-10] MEDS: CLONIDINE HCL 0.2 MG TABLET GT PRN (23:46)
[2016-09-11 00:32] VITALS: BP 162/73
[2016-09-11] MEDS: IPRATROPIUM NEB FS 0.5 MG/2.5 ML AMPUL.NEB NEB SCH ×4 (01:07→20:29)
[2016-09-11] MEDS: ALBUTEROL FS 2.5 MG/3 ML VIAL.NEB NEB SCH ×4 (01:07→20:29)
[2016-09-11] MEDS: POLYVINYL ALCOHOL 15 ML BOTTLE EACHEYE SCH ×4 (05:55→23:53)
[2016-09-11] MEDS: ESOMEPRAZOLE MAG TRIHYDRATE 20 MG CAPSULE.DR GT SCH (05:55)
[2016-09-11] MEDS: BLOOD SUGAR DIAGNOSTIC 1 EACH STRIP IN SCH ×4 (05:55→23:53)
[2016-09-11] MEDS: INSULIN REGULAR, HUMAN 100 UNIT/ML 3 ML VIAL SQ PRN ×2 (05:57→23:55)
[2016-09-11 06:05] VITALS: BP 156/75
[2016-09-11 07:50] VITALS: BP 148/69
[2016-09-11] MEDS: LACTOBACILLUS RHAMNOSUS GG 1 EACH CAP.SPRINK GT SCH ×2 (08:23→17:00)
[2016-09-11] MEDS: PROSOURCE / PROSTAT (PYXIS) 30 ML UDC GT SCH ×3 (08:23→17:00)
[2016-09-11] MEDS: CALCITRIOL ORAL SOLUTION 1 MCG/ML GT SCH (08:23)
[2016-09-11] MEDS: ASCORBIC ACID 500 MG TABLET GT SCH (08:23)
[2016-09-11] MEDS: VIT B CMPLX 3/FA/VIT C/BIOTIN 1 TAB TABLET GT SCH (08:23)
[2016-09-11] MEDS: hydrALAZINE HCL 25 MG TABLET PO SCH ×2 (08:23→17:00)
[2016-09-11] MEDS: HEPARIN SODIUM, PORCINE 5000 UNITS/1 ML VIAL SQ SCH ×2 (08:24→20:27)
[2016-09-11] MEDS: [UNRECOGNIZED DRUG - OTHER] SQ SCH ×2 (08:25→20:28)
[2016-09-11] MEDS: INSULIN GLARGINE SQ SCH ×2 (08:25→20:28)
[2016-09-11 14:00] VITALS: BP 171/55
[2016-09-11] MEDS: HYDROCODONE/APAP 5/325MG 1 EACH TABLET GT SCH ×2 (14:00→20:26)
[2016-09-11] MEDS: DAKINS HALF STRENGTH (0.25%) 480 ML BOTTLE TOP SCH ×2 (15:00→20:28)
[2016-09-11] MEDS: Z GUARD REMEDY 2 OZ OINT TP SCH ×2 (15:00→20:29)
[2016-09-11] MEDS: HYDROGEN PEROXIDE 480 ML BOTTLE TP SCH ×2 (15:00→20:29)
[2016-09-11] MEDS: HYDROGEL DRESSING 90 GM TUBE TP SCH ×2 (15:00→20:29)
[2016-09-11] MEDS: ZINC OXIDE 30 GM TUBE TP SCH ×2 (15:00→20:29)
[2016-09-11] MEDS: NYSTATIN TOP POWDER 15 GM BOTTLE TP SCH ×8 (15:00→20:29)
[2016-09-11 18:00] VITALS: BP 152/82
--- NOTE | 2016-09-11 19:03 | NUR ---
Patient had a dialyisis today at [facility]. Patient is stable. No bleeding from the site noted.
[2016-09-11 19:43] VITALS: BP 130/71
[2016-09-11] MEDS: RENAL NOVASOURCE 1,000 ML BOTTLE GT PRN (20:30)
[2016-09-11] MEDS: METOPROLOL TARTRATE 50 MG TABLET GT SCH (22:32)
[2016-09-12 00:10] VITALS: BP 146/81
[2016-09-12] MEDS: IPRATROPIUM NEB FS 0.5 MG/2.5 ML AMPUL.NEB NEB SCH ×4 (01:30→19:37)
[2016-09-12] MEDS: ALBUTEROL FS 2.5 MG/3 ML VIAL.NEB NEB SCH ×4 (01:30→19:37)
[2016-09-12] MEDS: BLOOD SUGAR DIAGNOSTIC 1 EACH STRIP IN SCH ×4 (05:39→23:17)
[2016-09-12] MEDS: ESOMEPRAZOLE MAG TRIHYDRATE 20 MG CAPSULE.DR GT SCH (05:39)
[2016-09-12] MEDS: POLYVINYL ALCOHOL 15 ML BOTTLE EACHEYE SCH ×4 (05:39→23:17)
[2016-09-12] MEDS: INSULIN REGULAR, HUMAN 100 UNIT/ML 3 ML VIAL SQ PRN ×4 (05:40→23:18)
[2016-09-12 06:06] VITALS: BP 152/69
[2016-09-12 07:38] VITALS: BP 118/61
[2016-09-12] MEDS: hydrALAZINE HCL 25 MG TABLET PO SCH ×2 (09:00→17:43)
--- NOTE | 2016-09-12 09:30 | NUR ---
Seen and examined by Dr. Terrie Olivo, made aware that patient completed ATB and she wants to reculture sacral wound to clear patient from isolation.
[2016-09-12] MEDS: METOPROLOL TARTRATE 50 MG TABLET GT SCH ×2 (09:41→22:03)
[2016-09-12] MEDS: CALCITRIOL ORAL SOLUTION 1 MCG/ML GT SCH (09:41)
[2016-09-12] MEDS: LACTOBACILLUS RHAMNOSUS GG 1 EACH CAP.SPRINK GT SCH ×2 (09:41→17:40)
[2016-09-12] MEDS: ASCORBIC ACID 500 MG TABLET GT SCH (09:42)
[2016-09-12] MEDS: PROSOURCE / PROSTAT (PYXIS) 30 ML UDC GT SCH ×3 (09:42→17:40)
[2016-09-12] MEDS: VIT B CMPLX 3/FA/VIT C/BIOTIN 1 TAB TABLET GT SCH (09:42)
[2016-09-12] MEDS: LISINOPRIL (20MG) 20 MG TABLET PO SCH (09:43)
[2016-09-12] MEDS: [UNRECOGNIZED DRUG - OTHER] SQ SCH ×2 (09:44→20:31)
[2016-09-12] MEDS: HEPARIN SODIUM, PORCINE 5000 UNITS/1 ML VIAL SQ SCH ×2 (09:44→20:30)
[2016-09-12] MEDS: INSULIN GLARGINE SQ SCH ×2 (09:44→20:31)
[2016-09-12] MEDS: HYDROCODONE/APAP 5/325MG 1 EACH TABLET GT SCH ×2 (12:52→20:30)
[2016-09-12] MEDS: HYDROGEL DRESSING 90 GM TUBE TP SCH ×2 (14:00→20:31)
[2016-09-12] MEDS: Z GUARD REMEDY 2 OZ OINT TP SCH ×2 (14:00→20:32)
[2016-09-12] MEDS: ZINC OXIDE 30 GM TUBE TP SCH ×2 (14:00→20:32)
[2016-09-12] MEDS: DAKINS HALF STRENGTH (0.25%) 480 ML BOTTLE TOP SCH ×2 (14:00→20:31)
[2016-09-12] MEDS: NYSTATIN TOP POWDER 15 GM BOTTLE TP SCH ×8 (14:00→20:31)
[2016-09-12] MEDS: HYDROGEN PEROXIDE 480 ML BOTTLE TP SCH ×2 (14:00→20:31)
--- NOTE | 2016-09-12 17:00 | NUR ---
Resident noted with R great toe wound with dry wound bed, ramos color .8x.8 in size, no drainage. surrounding area dry with slight redness. R index finger also with dry scab. Treatment initiated, aware with new order for wound consult
[2016-09-12] MEDS: RENAL NOVASOURCE 1,000 ML BOTTLE GT PRN (17:43)
[2016-09-12 19:35] VITALS: BP 159/61
[2016-09-13 00:30] VITALS: BP 141/79
[2016-09-13] MEDS: ALBUTEROL FS 2.5 MG/3 ML VIAL.NEB NEB SCH ×4 (01:16→19:02)
[2016-09-13] MEDS: IPRATROPIUM NEB FS 0.5 MG/2.5 ML AMPUL.NEB NEB SCH ×4 (01:16→19:02)
[2016-09-13] MEDS: ESOMEPRAZOLE MAG TRIHYDRATE 20 MG CAPSULE.DR GT SCH (05:21)
[2016-09-13] MEDS: POLYVINYL ALCOHOL 15 ML BOTTLE EACHEYE SCH ×3 (05:21→17:47)
[2016-09-13] MEDS: BLOOD SUGAR DIAGNOSTIC 1 EACH STRIP IN SCH ×3 (06:03→17:47)
[2016-09-13] MEDS: INSULIN REGULAR, HUMAN 100 UNIT/ML 3 ML VIAL SQ PRN ×2 (06:04→18:01)
[2016-09-13 06:21] VITALS: BP 154/70
[2016-09-13 07:35] VITALS: BP 138/75
[2016-09-13] MEDS: PROSOURCE / PROSTAT (PYXIS) 30 ML UDC GT SCH ×3 (08:25→17:47)
[2016-09-13] MEDS: LACTOBACILLUS RHAMNOSUS GG 1 EACH CAP.SPRINK GT SCH ×2 (08:25→17:00)
[2016-09-13] MEDS: CALCITRIOL ORAL SOLUTION 1 MCG/ML GT SCH (08:25)
[2016-09-13] MEDS: VIT B CMPLX 3/FA/VIT C/BIOTIN 1 TAB TABLET GT SCH (08:25)
[2016-09-13] MEDS: ASCORBIC ACID 500 MG TABLET GT SCH (08:26)
[2016-09-13] MEDS: HEPARIN SODIUM, PORCINE 5000 UNITS/1 ML VIAL SQ SCH ×2 (08:28→21:00)
[2016-09-13] MEDS: hydrALAZINE HCL 25 MG TABLET PO SCH ×2 (08:28→17:47)
[2016-09-13] MEDS: INSULIN GLARGINE SQ SCH ×2 (08:29→21:00)
[2016-09-13] MEDS: [UNRECOGNIZED DRUG - OTHER] SQ SCH ×2 (08:29→21:00)
--- NOTE | 2016-09-13 14:00 | NUR ---
Resident returned back from dialysis, condition stable accompanied by ambulance staff with RT.
--- NOTE | 2016-09-13 15:23 | NUR ---
RT PATIENT RECEIVED TRACH'D ON [facility] VENT WITH SETTINGS PER MD ORDER. PLANT PHYSIOLOGY TEACHER DONE. BILAT BREATH SOUNDS ON AUSCULTATION. VENT PLUGGED INTO RED OUTLET. ALARMS ON AND WORKING PROPERLY. SPARE TRACH AND AMBU BAG AT BEDSIDE. TRACH SECURE AND AIRWAY PATENT. BREATHING TX'S GIVEN AND TOLERATED WELL. NO ADVERSE EFFECTS OBSERVED. NO SIGNS OF DISTRESS NOTED AT THIS TIME. WILL CONTINUE TO MONITOR THE PATIENT FOR ANY CHANGES. Addendum: 09/13/16 at 1606 by JAVON STANLEY RT Amended: Links added.
[2016-09-13] MEDS: HYDROCODONE/APAP 5/325MG 1 EACH TABLET GT SCH ×2 (17:35→21:03)
[2016-09-13] MEDS: RENAL NOVASOURCE 1,000 ML BOTTLE GT PRN (17:35)
[2016-09-13] MEDS: POVIDONE-IODINE OINT 28.4 GM TUBE TP SCH (18:35)
[2016-09-13] MEDS: HYDROGEL DRESSING 90 GM TUBE TP SCH ×2 (18:35→21:00)
[2016-09-13] MEDS: NYSTATIN TOP POWDER 15 GM BOTTLE TP SCH ×5 (18:35→21:00)
[2016-09-13] MEDS: ZINC OXIDE 30 GM TUBE TP SCH ×2 (18:35→21:00)
[2016-09-13] MEDS: DAKINS HALF STRENGTH (0.25%) 480 ML BOTTLE TOP SCH ×2 (18:35→21:00)
[2016-09-13] MEDS: HYDROGEN PEROXIDE 480 ML BOTTLE TP SCH ×2 (18:35→21:00)
[2016-09-13 18:40] VITALS: BP 134/71
[2016-09-13 19:32] VITALS: BP 134/88
[2016-09-13] MEDS: Z GUARD REMEDY 4 OZ OINT TP SCH (21:00)
[2016-09-13 22:00] VITALS: BP 134/88
[2016-09-13] MEDS: METOPROLOL TARTRATE 50 MG TABLET GT SCH (22:00)
[2016-09-14] VITALS: BP 161/96
[2016-09-14] MEDS: BLOOD SUGAR DIAGNOSTIC 1 EACH STRIP IN SCH ×5 (00:13→23:51)
[2016-09-14] MEDS: CLONIDINE HCL 0.2 MG TABLET GT PRN ×2 (00:45→04:46)
[2016-09-14] MEDS: ALBUTEROL FS 2.5 MG/3 ML VIAL.NEB NEB SCH ×4 (01:11→19:30)
[2016-09-14] MEDS: IPRATROPIUM NEB FS 0.5 MG/2.5 ML AMPUL.NEB NEB SCH ×4 (01:11→19:30)
[2016-09-14] MEDS: POLYVINYL ALCOHOL 15 ML BOTTLE EACHEYE SCH ×5 (05:22→23:51)
[2016-09-14] MEDS: ESOMEPRAZOLE MAG TRIHYDRATE 20 MG CAPSULE.DR GT SCH (05:22)
[2016-09-14] MEDS: INSULIN REGULAR, HUMAN 100 UNIT/ML 3 ML VIAL SQ PRN ×4 (05:30→23:52)
[2016-09-14 06:07] VITALS: BP 145/63
[2016-09-14 07:52] VITALS: BP 142/78
[2016-09-14] MEDS: NYSTATIN TOP POWDER 15 GM BOTTLE TP SCH ×8 (09:00→21:33)
[2016-09-14] MEDS: ZINC OXIDE 30 GM TUBE TP SCH ×2 (09:00→21:33)
[2016-09-14] MEDS: Z GUARD REMEDY 4 OZ OINT TP SCH ×2 (09:00→21:33)
[2016-09-14] MEDS: [UNRECOGNIZED DRUG - OTHER] SQ SCH ×2 (09:00→21:32)
[2016-09-14] MEDS: INSULIN GLARGINE SQ SCH ×2 (09:00→21:32)
[2016-09-14] MEDS: LACTOBACILLUS RHAMNOSUS GG 1 EACH CAP.SPRINK GT SCH ×2 (09:46→16:25)
[2016-09-14] MEDS: ASCORBIC ACID 500 MG TABLET GT SCH (09:46)
[2016-09-14] MEDS: VIT B CMPLX 3/FA/VIT C/BIOTIN 1 TAB TABLET GT SCH (09:46)
[2016-09-14] MEDS: METOPROLOL TARTRATE 50 MG TABLET GT SCH ×2 (09:46→21:33)
[2016-09-14] MEDS: CALCITRIOL ORAL SOLUTION 1 MCG/ML GT SCH (09:46)
[2016-09-14] MEDS: PROSOURCE / PROSTAT (PYXIS) 30 ML UDC GT SCH ×3 (09:46→16:25)
[2016-09-14] MEDS: hydrALAZINE HCL 25 MG TABLET PO SCH ×2 (09:48→16:25)
[2016-09-14] MEDS: LISINOPRIL (20MG) 20 MG TABLET PO SCH (09:48)
[2016-09-14] MEDS: HEPARIN SODIUM, PORCINE 5000 UNITS/1 ML VIAL SQ SCH ×2 (09:49→21:32)
[2016-09-14] MEDS: DAKINS HALF STRENGTH (0.25%) 480 ML BOTTLE TOP SCH ×2 (09:53→21:32)
[2016-09-14] MEDS: HYDROGEN PEROXIDE 480 ML BOTTLE TP SCH ×2 (09:53→21:33)
[2016-09-14] MEDS: POVIDONE-IODINE OINT 28.4 GM TUBE TP SCH (09:53)
[2016-09-14] MEDS: HYDROGEL DRESSING 90 GM TUBE TP SCH ×2 (09:53→21:33)
[2016-09-14 12:58] VITALS: BP 142/78
[2016-09-14] MEDS: HYDROCODONE/APAP 5/325MG 1 EACH TABLET GT SCH ×2 (14:00→21:32)
[2016-09-14 18:35] VITALS: BP 138/84
[2016-09-14 20:55] VITALS: BP 145/71
[2016-09-15 00:02] VITALS: BP 134/69
--- NOTE | 2016-09-15 00:36 | NUR ---
Patient received trached on mech vent. Trach midline and breath sounds equal bilateral. Tx given as ordered and tolerated well. No adverse reactions noted. Vent plugged into red outlet and alarms set and audible. Ambu bag at the bed side.
[2016-09-15] MEDS: IPRATROPIUM NEB FS 0.5 MG/2.5 ML AMPUL.NEB NEB SCH ×4 (01:47→20:17)
[2016-09-15] MEDS: ALBUTEROL FS 2.5 MG/3 ML VIAL.NEB NEB SCH ×4 (01:48→20:17)
[2016-09-15] MEDS: BLOOD SUGAR DIAGNOSTIC 1 EACH STRIP IN SCH ×4 (05:56→23:51)
[2016-09-15] MEDS: POLYVINYL ALCOHOL 15 ML BOTTLE EACHEYE SCH ×4 (05:56→23:51)
[2016-09-15] MEDS: ESOMEPRAZOLE MAG TRIHYDRATE 20 MG CAPSULE.DR GT SCH (05:56)
[2016-09-15] MEDS: INSULIN REGULAR, HUMAN 100 UNIT/ML 3 ML VIAL SQ PRN ×4 (05:57→23:52)
[2016-09-15 06:05] VITALS: BP 136/60
[2016-09-15 08:26] VITALS: BP 96/55
[2016-09-15] MEDS: LISINOPRIL (20MG) 20 MG TABLET PO SCH (09:00)
[2016-09-15] MEDS: [UNRECOGNIZED DRUG - OTHER] SQ SCH ×2 (09:00→21:31)
[2016-09-15] MEDS: PROSOURCE / PROSTAT (PYXIS) 30 ML UDC GT SCH ×3 (09:00→17:00)
[2016-09-15] MEDS: CALCITRIOL ORAL SOLUTION 1 MCG/ML GT SCH (09:00)
[2016-09-15] MEDS: HEPARIN SODIUM, PORCINE 5000 UNITS/1 ML VIAL SQ SCH ×2 (09:00→21:31)
[2016-09-15] MEDS: METOPROLOL TARTRATE 50 MG TABLET GT SCH ×2 (09:00→21:33)
[2016-09-15] MEDS: ASCORBIC ACID 500 MG TABLET GT SCH (09:00)
[2016-09-15] MEDS: INSULIN GLARGINE SQ SCH ×2 (09:00→21:31)
[2016-09-15] MEDS: VIT B CMPLX 3/FA/VIT C/BIOTIN 1 TAB TABLET GT SCH (09:00)
[2016-09-15] MEDS: hydrALAZINE HCL 25 MG TABLET PO SCH ×2 (09:00→17:00)
[2016-09-15] MEDS: LACTOBACILLUS RHAMNOSUS GG 1 EACH CAP.SPRINK GT SCH ×2 (09:00→17:00)
--- NOTE | 2016-09-15 11:00 | NUR ---
Received wound culture final results, called and notified THOMAS Ramsay, no new orders at this time. Continue with contact isolation. Patients' sacral wound with improvement at this time. PATIENT no fever. Closely monitored.
[2016-09-15 12:00] VITALS: BP 112/54
[2016-09-15] MEDS: HYDROCODONE/APAP 5/325MG 1 EACH TABLET GT SCH ×2 (14:30→21:31)
[2016-09-15] MEDS: POVIDONE-IODINE OINT 28.4 GM TUBE TP SCH (15:30)
[2016-09-15] MEDS: NYSTATIN TOP POWDER 15 GM BOTTLE TP SCH ×8 (15:30→21:32)
[2016-09-15] MEDS: Z GUARD REMEDY 4 OZ OINT TP SCH ×2 (15:30→21:32)
[2016-09-15] MEDS: HYDROGEL DRESSING 90 GM TUBE TP SCH ×2 (15:30→21:32)
[2016-09-15] MEDS: ZINC OXIDE 30 GM TUBE TP SCH ×2 (15:30→21:32)
[2016-09-15] MEDS: HYDROGEN PEROXIDE 480 ML BOTTLE TP SCH ×2 (15:30→21:32)
[2016-09-15] MEDS: DAKINS HALF STRENGTH (0.25%) 480 ML BOTTLE TOP SCH ×2 (15:30→21:31)
[2016-09-15 18:00] VITALS: BP 98/51
[2016-09-15] MEDS: RENAL NOVASOURCE 1,000 ML BOTTLE GT PRN (18:43)
[2016-09-15 19:36] VITALS: BP 116/56
[2016-09-16 00:22] VITALS: BP 129/64
[2016-09-16] MEDS: ALBUTEROL FS 2.5 MG/3 ML VIAL.NEB NEB SCH ×4 (02:19→20:00)
[2016-09-16] MEDS: IPRATROPIUM NEB FS 0.5 MG/2.5 ML AMPUL.NEB NEB SCH ×4 (02:19→20:00)
[2016-09-16] MEDS: POLYVINYL ALCOHOL 15 ML BOTTLE EACHEYE SCH ×4 (05:34→23:58)
[2016-09-16] MEDS: ESOMEPRAZOLE MAG TRIHYDRATE 20 MG CAPSULE.DR GT SCH (05:34)
[2016-09-16] MEDS: BLOOD SUGAR DIAGNOSTIC 1 EACH STRIP IN SCH ×4 (05:34→23:58)
[2016-09-16] MEDS: INSULIN REGULAR, HUMAN 100 UNIT/ML 3 ML VIAL SQ PRN ×3 (05:35→23:59)
[2016-09-16 06:11] VITALS: BP 132/69
[2016-09-16 08:23] VITALS: BP 118/60
[2016-09-16] MEDS: VIT B CMPLX 3/FA/VIT C/BIOTIN 1 TAB TABLET GT SCH (08:54)
[2016-09-16] MEDS: LACTOBACILLUS RHAMNOSUS GG 1 EACH CAP.SPRINK GT SCH ×2 (08:54→16:48)
[2016-09-16] MEDS: CALCITRIOL ORAL SOLUTION 1 MCG/ML GT SCH (08:54)
[2016-09-16] MEDS: PROSOURCE / PROSTAT (PYXIS) 30 ML UDC GT SCH ×3 (08:55→16:48)
[2016-09-16] MEDS: ASCORBIC ACID 500 MG TABLET GT SCH (08:55)
[2016-09-16] MEDS: hydrALAZINE HCL 25 MG TABLET PO SCH ×2 (08:55→16:48)
[2016-09-16] MEDS: INSULIN GLARGINE SQ SCH ×2 (08:56→21:18)
[2016-09-16] MEDS: [UNRECOGNIZED DRUG - OTHER] SQ SCH ×2 (08:56→21:18)
[2016-09-16] MEDS: HEPARIN SODIUM, PORCINE 5000 UNITS/1 ML VIAL SQ SCH ×2 (08:56→21:18)
--- NOTE | 2016-09-16 10:10 | NUR ---
Seen and examined by Dr Morejon with no new order.
--- NOTE | 2016-09-16 11:03 | NUR ---
WOUND CARE CONSULT: PT SEEN FOR RT DORSAL GREAT TOE DRY ULCER WHICH IS PARKINSON IN COLOR AND MEASURES 0.8CM X 0.8CM X UTD. PT ALSO SEEN FOR SMALL SCAB TO RT INDEX FINGER WHICH MEASURES 0.5CM X 0.5CM X SCAB. NO DRAINAGE NOTED TO EITHER AREA. DEFER TO MD. RECOMMEND SURGICAL/DPM FOLLOW UP. DISCUSSED WITH NURSING STAFF. MD IN AGREEMENT WITH PLAN OF CARE.
[2016-09-16 14:00] VITALS: BP 105/55
[2016-09-16] MEDS: HYDROCODONE/APAP 5/325MG 1 EACH TABLET GT SCH ×2 (14:30→21:18)
[2016-09-16] MEDS: POVIDONE-IODINE OINT 28.4 GM TUBE TP SCH (15:30)
[2016-09-16] MEDS: HYDROGEN PEROXIDE 480 ML BOTTLE TP SCH ×2 (15:30→21:19)
[2016-09-16] MEDS: HYDROGEL DRESSING 90 GM TUBE TP SCH (15:30)
[2016-09-16] MEDS: DAKINS HALF STRENGTH (0.25%) 480 ML BOTTLE TOP SCH (15:30)
[2016-09-16] MEDS: NYSTATIN TOP POWDER 15 GM BOTTLE TP SCH ×8 (15:30→21:19)
[2016-09-16] MEDS: ZINC OXIDE 30 GM TUBE TP SCH (15:30)
[2016-09-16] MEDS: Z GUARD REMEDY 4 OZ OINT TP SCH ×2 (15:30→21:19)
[2016-09-16 18:43] VITALS: BP 118/62
[2016-09-16 19:40] VITALS: BP 123/69
[2016-09-16] MEDS: METOPROLOL TARTRATE 50 MG TABLET GT SCH (21:19)
[2016-09-17] MEDS: IPRATROPIUM NEB FS 0.5 MG/2.5 ML AMPUL.NEB NEB SCH ×4 (01:30→20:17)
[2016-09-17] MEDS: ALBUTEROL FS 2.5 MG/3 ML VIAL.NEB NEB SCH ×4 (01:30→20:17)
[2016-09-17] MEDS: POLYVINYL ALCOHOL 15 ML BOTTLE EACHEYE SCH ×3 (05:40→18:29)
[2016-09-17] MEDS: ESOMEPRAZOLE MAG TRIHYDRATE 20 MG CAPSULE.DR GT SCH (05:40)
[2016-09-17] MEDS: BLOOD SUGAR DIAGNOSTIC 1 EACH STRIP IN SCH ×3 (05:40→18:19)
[2016-09-17 08:10] VITALS: BP 110/58
[2016-09-17] MEDS: hydrALAZINE HCL 25 MG TABLET PO SCH ×2 (09:00→17:00)
[2016-09-17] MEDS: CALCITRIOL ORAL SOLUTION 1 MCG/ML GT SCH (09:19)
[2016-09-17] MEDS: LACTOBACILLUS RHAMNOSUS GG 1 EACH CAP.SPRINK GT SCH ×2 (09:19→17:00)
[2016-09-17] MEDS: METOPROLOL TARTRATE 50 MG TABLET GT SCH ×2 (09:20→22:16)
[2016-09-17] MEDS: VIT B CMPLX 3/FA/VIT C/BIOTIN 1 TAB TABLET GT SCH (09:21)
[2016-09-17] MEDS: ASCORBIC ACID 500 MG TABLET GT SCH (09:21)
[2016-09-17] MEDS: ERGOCALCIFEROL (VITAMIN D2) 8,000 UNIT/ML GT SCH (09:21)
[2016-09-17] MEDS: PROSOURCE / PROSTAT (PYXIS) 30 ML UDC GT SCH ×3 (09:21→17:00)
[2016-09-17] MEDS: LISINOPRIL (20MG) 20 MG TABLET PO SCH (09:23)
[2016-09-17] MEDS: HEPARIN SODIUM, PORCINE 5000 UNITS/1 ML VIAL SQ SCH ×2 (09:24→20:52)
[2016-09-17] MEDS: INSULIN GLARGINE SQ SCH ×2 (09:25→20:52)
[2016-09-17] MEDS: [UNRECOGNIZED DRUG - OTHER] SQ SCH ×2 (09:25→20:52)
[2016-09-17] MEDS: INSULIN REGULAR, HUMAN 100 UNIT/ML 3 ML VIAL SQ PRN ×2 (12:46→18:21)
--- NOTE | 2016-09-17 13:15 | NUR ---
Follow-up call made with Dr. Celestine Dickson to take a look at patient's R dorsal great toe dry ulcer and R index finger per wound nurse recommendations. Per Dr. Sprague, he will come tomorrow. Endorsed.
[2016-09-17] MEDS: HYDROCODONE/APAP 5/325MG 1 EACH TABLET GT SCH ×2 (14:21→22:00)
[2016-09-17] MEDS: Z GUARD REMEDY 4 OZ OINT TP SCH ×2 (15:21→22:00)
[2016-09-17] MEDS: NYSTATIN TOP POWDER 15 GM BOTTLE TP SCH ×8 (15:21→22:00)
[2016-09-17] MEDS: HYDROGEN PEROXIDE 480 ML BOTTLE TP SCH ×2 (15:21→22:00)
[2016-09-17] MEDS: POVIDONE-IODINE OINT 28.4 GM TUBE TP SCH (15:21)
[2016-09-17 20:15] VITALS: BP 141/81
[2016-09-17] MEDS: RENAL NOVASOURCE 1,000 ML BOTTLE GT PRN (22:24)
[2016-09-18] MEDS: POLYVINYL ALCOHOL 15 ML BOTTLE EACHEYE SCH ×5 (00:15→23:52)
[2016-09-18] MEDS: BLOOD SUGAR DIAGNOSTIC 1 EACH STRIP IN SCH ×5 (00:15→23:52)
[2016-09-18] MEDS: INSULIN REGULAR, HUMAN 100 UNIT/ML 3 ML VIAL SQ PRN ×4 (00:16→23:54)
[2016-09-18] MEDS: IPRATROPIUM NEB FS 0.5 MG/2.5 ML AMPUL.NEB NEB SCH ×4 (01:47→19:47)
[2016-09-18] MEDS: ALBUTEROL FS 2.5 MG/3 ML VIAL.NEB NEB SCH ×4 (01:47→19:47)
[2016-09-18] MEDS: ESOMEPRAZOLE MAG TRIHYDRATE 20 MG CAPSULE.DR GT SCH (05:50)
[2016-09-18] MEDS: LACTOBACILLUS RHAMNOSUS GG 1 EACH CAP.SPRINK GT SCH ×2 (09:29→16:48)
[2016-09-18] MEDS: VIT B CMPLX 3/FA/VIT C/BIOTIN 1 TAB TABLET GT SCH (09:29)
[2016-09-18] MEDS: ASCORBIC ACID 500 MG TABLET GT SCH (09:29)
[2016-09-18] MEDS: CALCITRIOL ORAL SOLUTION 1 MCG/ML GT SCH (09:29)
[2016-09-18] MEDS: PROSOURCE / PROSTAT (PYXIS) 30 ML UDC GT SCH ×3 (09:29→16:48)
[2016-09-18] MEDS: HEPARIN SODIUM, PORCINE 5000 UNITS/1 ML VIAL SQ SCH ×2 (09:30→21:36)
[2016-09-18] MEDS: hydrALAZINE HCL 25 MG TABLET PO SCH ×2 (09:30→16:48)
[2016-09-18] MEDS: [UNRECOGNIZED DRUG - OTHER] SQ SCH ×2 (09:31→21:37)
[2016-09-18] MEDS: INSULIN GLARGINE SQ SCH ×2 (09:31→21:37)
--- NOTE | 2016-09-18 13:30 | NUR ---
Dr. Sprague came but pt was at [facility] for hemodialysis.
[2016-09-18] MEDS: HYDROCODONE/APAP 5/325MG 1 EACH TABLET GT SCH ×2 (14:30→21:00)
[2016-09-18] MEDS ORDERED: DAKINS HALF STRENGTH (0.25%) 480 ML BOTTLE TOP PRN (14:30)
[2016-09-18] MEDS: Z GUARD REMEDY 4 OZ OINT TP SCH ×2 (15:30→21:37)
[2016-09-18] MEDS: NYSTATIN TOP POWDER 15 GM BOTTLE TP SCH ×8 (15:30→21:37)
[2016-09-18] MEDS: HYDROGEN PEROXIDE 480 ML BOTTLE TP SCH ×2 (15:30→21:37)
[2016-09-18] MEDS: POVIDONE-IODINE OINT 28.4 GM TUBE TP SCH (15:30)
[2016-09-18 20:00] VITALS: BP 99/60
[2016-09-18] MEDS: DAKINS HALF STRENGTH (0.25%) 480 ML BOTTLE TOP SCH (21:37)
[2016-09-18] MEDS: METOPROLOL TARTRATE 50 MG TABLET GT SCH (22:50)
[2016-09-18] MEDS: CLONIDINE HCL 0.2 MG TABLET GT PRN (23:53)
[2016-09-19] MEDS: ALBUTEROL FS 2.5 MG/3 ML VIAL.NEB NEB SCH ×4 (01:23→19:33)
[2016-09-19] MEDS: IPRATROPIUM NEB FS 0.5 MG/2.5 ML AMPUL.NEB NEB SCH ×4 (01:23→19:33)
[2016-09-19] MEDS: ESOMEPRAZOLE MAG TRIHYDRATE 20 MG CAPSULE.DR GT SCH (05:04)
[2016-09-19] MEDS: POLYVINYL ALCOHOL 15 ML BOTTLE EACHEYE SCH ×4 (05:04→23:19)
[2016-09-19] MEDS: BLOOD SUGAR DIAGNOSTIC 1 EACH STRIP IN SCH ×4 (05:26→23:19)
[2016-09-19] MEDS: INSULIN REGULAR, HUMAN 100 UNIT/ML 3 ML VIAL SQ PRN ×4 (05:27→23:19)
[2016-09-19] MEDS: CLONIDINE HCL 0.2 MG TABLET GT PRN (05:29)
[2016-09-19] MEDS: RENAL NOVASOURCE 1,000 ML BOTTLE GT PRN (07:05)
[2016-09-19 07:44] VITALS: BP 156/80
[2016-09-19] MEDS: CALCITRIOL ORAL SOLUTION 1 MCG/ML GT SCH (08:21)
[2016-09-19] MEDS: LACTOBACILLUS RHAMNOSUS GG 1 EACH CAP.SPRINK GT SCH ×2 (08:21→17:00)
[2016-09-19] MEDS: ASCORBIC ACID 500 MG TABLET GT SCH (08:22)
[2016-09-19] MEDS: VIT B CMPLX 3/FA/VIT C/BIOTIN 1 TAB TABLET GT SCH (08:22)
[2016-09-19] MEDS: METOPROLOL TARTRATE 50 MG TABLET GT SCH ×2 (08:22→21:15)
[2016-09-19] MEDS: hydrALAZINE HCL 25 MG TABLET PO SCH ×2 (08:22→17:00)
[2016-09-19] MEDS: PROSOURCE / PROSTAT (PYXIS) 30 ML UDC GT SCH ×3 (08:22→17:00)
[2016-09-19] MEDS: LISINOPRIL (20MG) 20 MG TABLET PO SCH (08:22)
[2016-09-19] MEDS: HEPARIN SODIUM, PORCINE 5000 UNITS/1 ML VIAL SQ SCH ×2 (08:23→21:14)
[2016-09-19] MEDS: INSULIN GLARGINE SQ SCH ×2 (08:24→21:14)
[2016-09-19] MEDS: [UNRECOGNIZED DRUG - OTHER] SQ SCH ×2 (08:24→21:14)
--- NOTE | 2016-09-19 10:25 | NUR ---
Reported low grade temp of 99.[address] Ana Castro NNO given at this time. Will monitor for now.
[2016-09-19] MEDS: HYDROCODONE/APAP 5/325MG 1 EACH TABLET GT SCH ×2 (14:20→21:12)
[2016-09-19] MEDS: DAKINS HALF STRENGTH (0.25%) 480 ML BOTTLE TOP SCH ×2 (15:20→21:14)
[2016-09-19] MEDS: HYDROGEN PEROXIDE 480 ML BOTTLE TP SCH ×2 (15:20→21:14)
[2016-09-19] MEDS: NYSTATIN TOP POWDER 15 GM BOTTLE TP SCH ×8 (15:20→21:15)
[2016-09-19] MEDS: Z GUARD REMEDY 4 OZ OINT TP SCH ×2 (15:20→21:15)
[2016-09-19] MEDS: POVIDONE-IODINE OINT 28.4 GM TUBE TP SCH (15:20)
[2016-09-19 19:54] VITALS: BP 131/62
[2016-09-20 01:00] VITALS: BP 113/58
[2016-09-20] MEDS: IPRATROPIUM NEB FS 0.5 MG/2.5 ML AMPUL.NEB NEB SCH ×4 (01:28→19:42)
[2016-09-20] MEDS: ALBUTEROL FS 2.5 MG/3 ML VIAL.NEB NEB SCH ×4 (01:28→19:42)
[2016-09-20] MEDS: ESOMEPRAZOLE MAG TRIHYDRATE 20 MG CAPSULE.DR GT SCH (05:25)
[2016-09-20] MEDS: INSULIN REGULAR, HUMAN 100 UNIT/ML 3 ML VIAL SQ PRN ×2 (05:25→17:26)
[2016-09-20] MEDS: POLYVINYL ALCOHOL 15 ML BOTTLE EACHEYE SCH ×3 (05:25→17:25)
[2016-09-20] MEDS: BLOOD SUGAR DIAGNOSTIC 1 EACH STRIP IN SCH ×3 (05:25→17:25)
[2016-09-20] MEDS: RENAL NOVASOURCE 1,000 ML BOTTLE GT PRN (05:25)
[2016-09-20 05:49] VITALS: BP 139/83
[2016-09-20 07:41] VITALS: BP 136/72
[2016-09-20] MEDS: ASCORBIC ACID 500 MG TABLET GT SCH (08:18)
[2016-09-20] MEDS: PROSOURCE / PROSTAT (PYXIS) 30 ML UDC GT SCH ×3 (08:18→17:24)
[2016-09-20] MEDS: VIT B CMPLX 3/FA/VIT C/BIOTIN 1 TAB TABLET GT SCH (08:18)
[2016-09-20] MEDS: CALCITRIOL ORAL SOLUTION 1 MCG/ML GT SCH (08:18)
[2016-09-20] MEDS: LACTOBACILLUS RHAMNOSUS GG 1 EACH CAP.SPRINK GT SCH ×2 (08:18→17:24)
[2016-09-20] MEDS: hydrALAZINE HCL 25 MG TABLET PO SCH ×2 (08:19→17:00)
[2016-09-20] MEDS: INSULIN GLARGINE SQ SCH ×2 (08:21→21:40)
[2016-09-20] MEDS: HEPARIN SODIUM, PORCINE 5000 UNITS/1 ML VIAL SQ SCH ×2 (08:21→21:39)
[2016-09-20] MEDS: [UNRECOGNIZED DRUG - OTHER] SQ SCH ×2 (08:21→21:40)
[2016-09-20] MEDS: HYDROCODONE/APAP 5/325MG 1 EACH TABLET GT SCH ×2 (09:00→21:39)
[2016-09-20] MEDS: POVIDONE-IODINE OINT 28.4 GM TUBE TP SCH (09:30)
[2016-09-20] MEDS: NYSTATIN TOP POWDER 15 GM BOTTLE TP SCH ×8 (09:30→21:40)
[2016-09-20] MEDS: HYDROGEN PEROXIDE 480 ML BOTTLE TP SCH ×2 (09:30→21:40)
[2016-09-20] MEDS: DAKINS HALF STRENGTH (0.25%) 480 ML BOTTLE TOP SCH ×2 (09:30→21:40)
[2016-09-20] MEDS: Z GUARD REMEDY 4 OZ OINT TP SCH ×2 (09:30→21:40)
[2016-09-20] MEDS: CLONIDINE HCL 0.2 MG TABLET GT PRN (17:25)
[2016-09-20 19:15] VITALS: BP 157/69
[2016-09-20] MEDS: METOPROLOL TARTRATE 50 MG TABLET GT SCH (21:41)
[2016-09-21] MEDS: POLYVINYL ALCOHOL 15 ML BOTTLE EACHEYE SCH ×5 (00:23→23:26)
[2016-09-21] MEDS: BLOOD SUGAR DIAGNOSTIC 1 EACH STRIP IN SCH ×5 (00:23→23:26)
[2016-09-21] MEDS: CLONIDINE HCL 0.2 MG TABLET GT PRN ×2 (00:24→05:10)
[2016-09-21] MEDS: INSULIN REGULAR, HUMAN 100 UNIT/ML 3 ML VIAL SQ PRN ×5 (00:49→23:27)
[2016-09-21] MEDS: ALBUTEROL FS 2.5 MG/3 ML VIAL.NEB NEB SCH ×4 (01:17→19:30)
[2016-09-21] MEDS: IPRATROPIUM NEB FS 0.5 MG/2.5 ML AMPUL.NEB NEB SCH ×4 (01:17→19:30)
[2016-09-21] MEDS: ESOMEPRAZOLE MAG TRIHYDRATE 20 MG CAPSULE.DR GT SCH (05:09)
[2016-09-21 07:39] VITALS: BP 119/70
[2016-09-21] MEDS: hydrALAZINE HCL 25 MG TABLET PO SCH ×2 (09:00→16:17)
[2016-09-21] MEDS: CALCITRIOL ORAL SOLUTION 1 MCG/ML GT SCH (09:43)
[2016-09-21] MEDS: METOPROLOL TARTRATE 50 MG TABLET GT SCH ×2 (09:44→21:27)
[2016-09-21] MEDS: VIT B CMPLX 3/FA/VIT C/BIOTIN 1 TAB TABLET GT SCH (09:44)
[2016-09-21] MEDS: LACTOBACILLUS RHAMNOSUS GG 1 EACH CAP.SPRINK GT SCH ×2 (09:44→16:17)
[2016-09-21] MEDS: HYDROCODONE/APAP 5/325MG 1 EACH TABLET GT SCH ×2 (09:45→20:26)
[2016-09-21] MEDS: PROSOURCE / PROSTAT (PYXIS) 30 ML UDC GT SCH ×3 (09:45→16:17)
[2016-09-21] MEDS: ASCORBIC ACID 500 MG TABLET GT SCH (09:45)
[2016-09-21] MEDS: LISINOPRIL (20MG) 20 MG TABLET PO SCH (09:46)
[2016-09-21] MEDS: HEPARIN SODIUM, PORCINE 5000 UNITS/1 ML VIAL SQ SCH ×2 (09:46→20:27)
[2016-09-21] MEDS: POVIDONE-IODINE OINT 28.4 GM TUBE TP SCH (09:47)
[2016-09-21] MEDS: INSULIN GLARGINE SQ SCH ×2 (09:47→20:27)
[2016-09-21] MEDS: [UNRECOGNIZED DRUG - OTHER] SQ SCH ×2 (09:47→20:27)
[2016-09-21] MEDS: HYDROGEN PEROXIDE 480 ML BOTTLE TP SCH ×2 (09:47→20:27)
[2016-09-21] MEDS: NYSTATIN TOP POWDER 15 GM BOTTLE TP SCH ×8 (09:47→20:28)
[2016-09-21] MEDS: DAKINS HALF STRENGTH (0.25%) 480 ML BOTTLE TOP SCH ×2 (09:47→20:27)
[2016-09-21] MEDS: Z GUARD REMEDY 4 OZ OINT TP SCH ×2 (09:48→20:28)
--- NOTE | 2016-09-21 11:35 | NUR ---
Pt was received on appropriate settings. Pt is obtunded, awake, no distress noted at this time. Ambubag and extra trache at bedside. Cuff was checked, vent is plugged in red outlet. Simeon Young MS SQL SERVER DEVELOPER Addendum: 09/21/16 at 1146 by SHANI YOUNG RT Amended: Links added.
[2016-09-21] MEDS: RENAL NOVASOURCE 1,000 ML BOTTLE GT PRN (14:00)
[2016-09-21 20:16] VITALS: BP 127/67
[2016-09-22] MEDS: ALBUTEROL FS 2.5 MG/3 ML VIAL.NEB NEB SCH ×4 (01:42→19:30)
[2016-09-22] MEDS: IPRATROPIUM NEB FS 0.5 MG/2.5 ML AMPUL.NEB NEB SCH ×4 (01:42→19:30)
[2016-09-22] MEDS: ESOMEPRAZOLE MAG TRIHYDRATE 20 MG CAPSULE.DR GT SCH (05:22)
[2016-09-22] MEDS: POLYVINYL ALCOHOL 15 ML BOTTLE EACHEYE SCH ×4 (05:22→23:47)
[2016-09-22] MEDS: BLOOD SUGAR DIAGNOSTIC 1 EACH STRIP IN SCH ×4 (05:22→23:47)
[2016-09-22] MEDS: INSULIN REGULAR, HUMAN 100 UNIT/ML 3 ML VIAL SQ PRN ×4 (05:24→23:49)
[2016-09-22 07:44] VITALS: BP 143/73
[2016-09-22] MEDS: DAKINS HALF STRENGTH (0.25%) 480 ML BOTTLE TOP SCH ×2 (09:00→20:25)
[2016-09-22] MEDS: HYDROGEN PEROXIDE 480 ML BOTTLE TP SCH ×2 (09:00→20:26)
[2016-09-22] MEDS: VIT B CMPLX 3/FA/VIT C/BIOTIN 1 TAB TABLET GT SCH (09:15)
[2016-09-22] MEDS: CALCITRIOL ORAL SOLUTION 1 MCG/ML GT SCH (09:15)
[2016-09-22] MEDS: HYDROCODONE/APAP 5/325MG 1 EACH TABLET GT SCH ×2 (09:15→20:22)
[2016-09-22] MEDS: METOPROLOL TARTRATE 50 MG TABLET GT SCH ×2 (09:15→21:30)
[2016-09-22] MEDS: LACTOBACILLUS RHAMNOSUS GG 1 EACH CAP.SPRINK GT SCH ×2 (09:15→17:21)
[2016-09-22] MEDS: LISINOPRIL (20MG) 20 MG TABLET PO SCH (09:16)
[2016-09-22] MEDS: HEPARIN SODIUM, PORCINE 5000 UNITS/1 ML VIAL SQ SCH ×2 (09:16→20:22)
[2016-09-22] MEDS: ASCORBIC ACID 500 MG TABLET GT SCH (09:16)
[2016-09-22] MEDS: PROSOURCE / PROSTAT (PYXIS) 30 ML UDC GT SCH ×3 (09:16→17:21)
[2016-09-22] MEDS: hydrALAZINE HCL 25 MG TABLET PO SCH ×2 (09:16→17:21)
[2016-09-22] MEDS: [UNRECOGNIZED DRUG - OTHER] SQ SCH ×2 (09:17→20:25)
[2016-09-22] MEDS: INSULIN GLARGINE SQ SCH ×2 (09:17→20:25)
[2016-09-22] MEDS: Z GUARD REMEDY 4 OZ OINT TP SCH ×2 (14:00→20:26)
[2016-09-22] MEDS: POVIDONE-IODINE OINT 28.4 GM TUBE TP SCH (14:00)
[2016-09-22] MEDS: NYSTATIN TOP POWDER 15 GM BOTTLE TP SCH ×8 (14:00→20:26)
[2016-09-22 20:00] VITALS: BP 156/80
[2016-09-22] MEDS: HYDROGEL DRESSING 90 GM TUBE TP SCH (20:25)
[2016-09-23] MEDS: IPRATROPIUM NEB FS 0.5 MG/2.5 ML AMPUL.NEB NEB SCH ×3 (00:48→13:30)
[2016-09-23] MEDS: ALBUTEROL FS 2.5 MG/3 ML VIAL.NEB NEB SCH ×3 (00:48→13:30)
[2016-09-23] MEDS: ESOMEPRAZOLE MAG TRIHYDRATE 20 MG CAPSULE.DR GT SCH (05:25)
[2016-09-23] MEDS: BLOOD SUGAR DIAGNOSTIC 1 EACH STRIP IN SCH ×2 (05:25→12:00)
[2016-09-23] MEDS: POLYVINYL ALCOHOL 15 ML BOTTLE EACHEYE SCH ×2 (05:25→12:00)
[2016-09-23] MEDS: INSULIN REGULAR, HUMAN 100 UNIT/ML 3 ML VIAL SQ PRN (05:26)
[2016-09-23 08:18] VITALS: BP 118/55
[2016-09-23 08:22] VITALS: BP 118/55
[2016-09-23] MEDS: DAKINS HALF STRENGTH (0.25%) 480 ML BOTTLE TOP SCH (09:00)
[2016-09-23] MEDS: NYSTATIN TOP POWDER 15 GM BOTTLE TP SCH ×4 (09:00)
[2016-09-23] MEDS: Z GUARD REMEDY 4 OZ OINT TP SCH (09:00)
[2016-09-23] MEDS: hydrALAZINE HCL 25 MG TABLET PO SCH (09:00)
[2016-09-23] MEDS: POVIDONE-IODINE OINT 28.4 GM TUBE TP SCH (09:00)
[2016-09-23] MEDS: HYDROGEL DRESSING 90 GM TUBE TP SCH (09:00)
[2016-09-23] MEDS: HYDROGEN PEROXIDE 480 ML BOTTLE TP SCH (09:00)
[2016-09-23] MEDS: HYDROCODONE/APAP 5/325MG 1 EACH TABLET GT SCH (09:00)
[2016-09-23] MEDS: ASCORBIC ACID 500 MG TABLET GT SCH (09:23)
[2016-09-23] MEDS: CALCITRIOL ORAL SOLUTION 1 MCG/ML GT SCH (09:23)
[2016-09-23] MEDS: PROSOURCE / PROSTAT (PYXIS) 30 ML UDC GT SCH ×2 (09:23→12:30)
[2016-09-23] MEDS: VIT B CMPLX 3/FA/VIT C/BIOTIN 1 TAB TABLET GT SCH (09:23)
[2016-09-23] MEDS: LACTOBACILLUS RHAMNOSUS GG 1 EACH CAP.SPRINK GT SCH (09:23)
[2016-09-23] MEDS: INSULIN GLARGINE SQ SCH (09:25)
[2016-09-23] MEDS: HEPARIN SODIUM, PORCINE 5000 UNITS/1 ML VIAL SQ SCH (09:25)
[2016-09-23] MEDS: [UNRECOGNIZED DRUG - OTHER] SQ SCH (09:25)
--- NOTE | 2016-09-23 14:30 | NUR ---
[facility] staff reported to charge nurse that pt is done with her hemodialysis treatment but blood pressure is 77/47. Paged Dr. Olivo twice to notify her about hypotension at [facility] and obtain orders[facility] notified charge nurse that they will just bring the pt to the ER since blood pressure is 74/41 when it was rechecked. Dr. Olivo called and notified her about pt's change in condition and of transfer to ER from [facility]. Called pt's boyfriend John and left him a message. Addendum: 09/23/16 at 1622 by GEORGE CLEARY RN BP 74/37
[2016-09-23] MEDS ORDERED: LACT10SO7 GT (16:32)
[2016-09-23] MEDS ORDERED: LACT1CAP72 GT (16:32)
[2016-09-23] MEDS ORDERED: ALBU2.5V38 NEB (16:32)
[2016-09-23] MEDS ORDERED: NUTR100037 GT (16:32)
[2016-09-23] MEDS ORDERED: LISI-603 GT (16:32)
[2016-09-23] MEDS ORDERED: AMIN30LI25 GT (16:32)
[2016-09-23] MEDS ORDERED: POLY15DR40 EACHEYE (16:32)
[2016-09-23] MEDS ORDERED: HYDR-4076 PO (16:32)
[2016-09-23] MEDS ORDERED: IPRA0.2S49 NEB (16:32)
[2016-09-24 07:45] VITALS: BP 116/66
[2019-04-17] MEDS ORDERED: ZINC OXIDE 30 GM TUBE TP SCH (21:00)
== END 2016-09-23 14:30 | disposition short-term general hospital (02) | DRG 130 ==
LOC: SA → UNDOLOA 09-30 11:38
PROVIDERS: ADMIT Internal Medicine Pulmonary Disease; ATTEND Internal Medicine Pulmonary Disease
PROC: 5A1955Z Respiratory Ventilation, Greater than 96 Consecutive Hours (ICD-10-PCS; principal; 2016-05-11)
PROC: 05H633Z Insertion of Infusion Device into Left Subclavian Vein, Percutaneous Approach (ICD-10-PCS; 2016-05-14)
DX: J96.11 Chronic respiratory failure with hypoxia (principal); A41.9 Sepsis, unspecified organism; G93.1 Anoxic brain damage, not elsewhere classified; G93.40 Encephalopathy, unspecified; R40.3 Persistent vegetative state; I12.0 Hypertensive chronic kidney disease with stage 5 chronic kidney disease or end stage renal disease; N18.6 End stage renal disease; L89.159 Pressure ulcer of sacral region, unspecified stage; Z99.11 Dependence on respirator [ventilator] status; R13.10 Dysphagia, unspecified; Z93.0 Tracheostomy status; L03.115 Cellulitis of right lower limb; Z99.2 Dependence on renal dialysis; Z93.1 Gastrostomy status; D64.9 Anemia, unspecified; Z89.612 Acquired absence of left leg above knee; I73.9 Peripheral vascular disease, unspecified; L03.311 Cellulitis of abdominal wall; Z87.01 Personal history of pneumonia (recurrent); L03.116 Cellulitis of left lower limb; B96.89 Other specified bacterial agents as the cause of diseases classified elsewhere; B95.5 Unspecified streptococcus as the cause of diseases classified elsewhere; L60.3 Nail dystrophy
CPT/HCPCS: 31720; 36415; 36569; 71010-TC; 74000-TC; 80048-TC; 80150; 80170-TC; 80202-TC; 82565-TC; 82962-TC; 84520-TC; 85025-TC; 86580-TC; 87040-TC; 87070-TC; 87186-TC; 94003-TC; 94762-TC; 94799-TC; A4216; A4606; A4623; A6248; A6253; A6402; A7526; J0278; J1580; J1644; J2185; J2543; J3370; J3490; J7050; J7060; Q9963; Z7610

== ENCOUNTER 2016-09-23 14:53 | Inpatient (IN) | payer MEDICAID ==
[~2016-09-23] VITALS: Ht 154.9 cm; Wt 78.9 kg
[2016-09-23 15:00] VITALS: BP 94/54
--- NOTE | 2016-09-23 15:05 | NUR ---
BIBPA FROM HD DT DUE TO LOW BP. PT IS OBTUNDED,. VENT TRACHE DEPENDENT. PATIENT IS ALERT HOWEVER NON VERBAL. NOTED WITH GT. ABDOMEN NON TENDERED..PATIENT WITH MIDLINE ON ALEXSANDRA COVERED WITH DD. ABLE TO FLUSH HOWEVER WITH NO BLOOD RETURN, W PATIENT'S SKIN IS WARM TO TOUCH AND NON DIAPHORETIC. AFEBRILE. NOTED PATIENT WITH LBKA. GOWNED AND PLACED PT ON TELE MONITOR. WILL CONT TO MONITOR.
--- NOTE | 2016-09-23 15:07 | NUR ---
VENT SETTING - AC12 500 FIO2 [id number] P5
[2016-09-23 15:25] LABS: BASOPHILS % (AUTO) 0.1 % (0.0-2.0); EOSINOPHILS # (AUTO) 0.1 /CMM (0.0-0.7); EOSINOPHILS % (AUTO) 1.1 % (0.0-6.0); HEMATOCRIT 34 % (33-45); LYMPHOCYTES % (AUTO) 12.8 % (20.0-44.0); MEAN CORPUSCULAR HEMOGLOBIN 31 PG (26.0-33.0); MEAN CORPUSCULAR HGB CONC 32 g/dl (31.0-36.0); MEAN CORPUSCULAR VOLUME 98 fL (82-100); MONOCYTES # (AUTO) 0.4 /CMM (0.1-1.30); MONOCYTES % (AUTO) 4.9 % (2.0-12.0); NEUTROPHILS % (AUTO) 81.1 % (43.0-81.0); PLATELET COUNT (AUTO) 166 /CMM (150-450); RDW COEFFICIENT OF VARIATION 15.8 (11.5-15.0); WHITE BLOOD COUNT (AUTO) 7.5 K/uL (4.3-11.0)
[2016-09-23 15:41] LABS: CALCIUM, SERUM 9.2 mg/dL (8.5-10.1); CREATININE 2.3 mg/dL (0.6-1.3); POTASSIUM 3.7 mmol/L (3.5-5.1)
[2016-09-23 15:46] LABS: INR 0.91 (0.87-1.13); PROTHROMBIN TIME 9.5 SECS (9.5-12.7)
[2016-09-23] MEDS ORDERED: MEROPENEM 500 MG in IV NS 0.9% 50 ML IV ONE (16:00)
[2016-09-23] MEDS ORDERED: VANCOMYCIN 1 GM in IV D5W 250 ML IV ONE (16:00)
[2016-09-23 16:07] LABS: ALANINE AMINOTRANSFERASE 33 U/L (12-78); ALBUMIN 2.8 g/dL (3.4-5.0); ALKALINE PHOSPHATASE 266 U/L (46-116); ASPARTATE AMINOTRANSFERASE 20 U/L (15-37); BILIRUBIN,DIRECT 0.1 mg/dL (0.0-0.2); BILIRUBIN,TOTAL 0.4 mg/dL (0.2-1.0); TOTAL PROTEIN, SERUM 8.3 g/dL (6.4-8.2)
[2016-09-23 16:11] LABS: TROPONIN I < 0.017 ng/mL (0.00-0.056)
--- NOTE | 2016-09-23 16:17 | NUR ---
DR.KASHANI ATKINS
--- NOTE | 2016-09-23 16:18 | NUR ---
CALLED NURSING SUP. FOR TELE BED
[2016-09-23] MEDS ORDERED: NUTR100037 GT (16:32)
[2016-09-23] MEDS ORDERED: POLY15DR40 EACHEYE (16:32)
[2016-09-23] MEDS ORDERED: LISI-603 GT (16:32)
[2016-09-23] MEDS ORDERED: LACT1CAP72 GT (16:32)
[2016-09-23] MEDS ORDERED: AMIN30LI25 GT (16:32)
[2016-09-23] MEDS ORDERED: HYDR-4076 PO (16:32)
[2016-09-23] MEDS ORDERED: LACT10SO7 GT (16:32)
[2016-09-23] MEDS ORDERED: ALBU2.5V38 NEB (16:32)
[2016-09-23] MEDS ORDERED: IPRA0.2S49 NEB (16:32)
--- NOTE | 2016-09-23 17:13 | NUR ---
REPORT GIVEN TO NED BRASWELL FOR SOURAV
--- NOTE | 2016-09-23 17:13 | NUR ---
PT TRANSPORTED TO TELE 1. VSS. ACLS PROTOCOL APPLIED
[2016-09-23 18:00] VITALS: BP 116/60
--- NOTE | 2016-09-23 18:00 | NUR ---
telemetry admission received patient to room 118-2. full code. no family at bed side. patient does not respond to name, opens eyes spontaneously to tough/light pain. mechanical ventilator at prescribed setting, RT at bed side. GT patent, no residuals, GT leaking, cleaned with NS and applied dressing. colostomy intact, no leaking, no BM noted at this time. skin warm and dry. face slightly diaphoretic. VS stable and documented. skin photos in chart, wound consult requested. 2 IV on ALEXSANDRA patent, no infiltration of infection noted. discussed plan of care, patient unable to verbalize understanding. call light in reach
--- NOTE | 2016-09-23 18:15 | NUR ---
PT TRANSFERRED FROM ER#6 TO 118 BED 2. PT USED SAME [facility] VENT, PLUGGED INTO RED OUTLET WITH ALARM ON AND AUDIBLE. VANI @ BEDSIDE. Addendum: 09/23/16 at 1817 by CHAR JEFFERSON RT Amended: Links added.
--- NOTE | 2016-09-23 19:42 | NUR ---
PT RCVD ON MECH VENT WITH NOTED SETTINGS. SUCTIONED MODERATE AMOUNT OF YELLOWISH THICK SECRETIONS, BILATERAL BS NOTED. VENT PLUGGED INTO RED OUTLET, VENT ALARMED AND WORKING. AMBU BAG AT BEDSIDE. NO RESPIRATORY DISTRESS AT THIS TIME. WILL CONTINUE TO MONITOR.
--- NOTE | 2016-09-23 19:45 | NUR ---
RN NOTES CALLED AND SPOKE TO DR WARD NASH TO OBTAIN ADMISSION ORDERS: ADMIT TO BILL WITH DIAGNOSIS "HYPOTENSION", RESUME ALL HOME MEDICATIONS. ORDERS READ BACK FOR CLARIFICATION. WILL CONTINUE TO CLOSELY MONITOR THE PATIENT
[2016-09-23 20:00] VITALS: BP 115/47
[2016-09-23] MEDS ORDERED: POLYVINYL ALCOHOL 15 ML BOTTLE EACHEYE PRN (21:00)
[2016-09-23] MEDS ORDERED: LACTULOSE 10 G/15 ML UDC (PYXIS) GT PRN (21:00)
[2016-09-23] MEDS ORDERED: LINEZOLID 600 MG TABLET PO SCH (21:00)
[2016-09-23] MEDS ORDERED: CLONIDINE HCL 0.1 MG TABLET GT PRN (21:00)
[2016-09-23] MEDS ORDERED: IV NS 0.9% 250 ML IV ONE (21:38)
[2016-09-23] MEDS ORDERED: IV SET PRIMARY PUMP SET 1 EA INFUS.SET MC ONE (21:38)
[2016-09-23] MEDS: RENAL NOVASOURCE 1,000 ML BOTTLE GT PRN (21:42)
[2016-09-23] MEDS: LINEZOLID 600 MG TABLET GT SCH (21:42)
[2016-09-23] MEDS: HEPARIN SODIUM, PORCINE 5000 UNITS/1 ML VIAL SQ SCH (21:45)
[2016-09-23] MEDS: METOPROLOL TARTRATE 50 MG TABLET GT SCH (21:46)
[2016-09-23] MEDS: INSULIN DETEMIR 100 UNIT/ML CARTRIDGE SQ SCH (21:56)
[2016-09-24] VITALS (7 sets, daily range): BP systolic 91–118; BP diastolic 44–65
[2016-09-24] MEDS: BLOOD SUGAR DIAGNOSTIC 1 EACH STRIP IN SCH ×5 (01:08→23:35)
[2016-09-24] MEDS: INSULIN REGULAR, HUMAN 100 UNIT/ML 3 ML VIAL SQ PRN ×5 (01:13→23:37)
[2016-09-24] MEDS ORDERED: DEXTROSE 50%-WATER 50 ML DISP.SYRIN IV PRN (01:30)
[2016-09-24] MEDS: ALBUTEROL FS 2.5 MG/3 ML VIAL.NEB NEB SCH ×4 (01:33→19:23)
[2016-09-24] MEDS: IPRATROPIUM NEB FS 0.5 MG/2.5 ML AMPUL.NEB NEB SCH ×4 (01:33→19:23)
[2016-09-24] MEDS: ACETAMINOPHEN 650 MG/20.3 ML UDC GT PRN (06:17)
--- NOTE | 2016-09-24 07:00 | NUR ---
RN CLOSING NOTES PATIENT RESTING COMFORTABLY IN BED, TMAX 100.1 THROUGHOUT SHIFT, TEMP NOW 98.9. WILL ENDORSE THE PATIENT TO THE AM SHIFT NURSE FOR SOURAV
[2016-09-24 07:29] LABS: BASOPHILS # (AUTO) 0.1 /CMM (0.0-0.2); BASOPHILS % (AUTO) 0.7 % (0.0-2.0); EOSINOPHILS # (AUTO) 0.1 /CMM (0.0-0.7); EOSINOPHILS % (AUTO) 1.2 % (0.0-6.0); HEMATOCRIT 33 % (33-45); HEMOGLOBIN 10.7 g/dL (11.5-14.8); LYMPHOCYTES # (AUTO) 1.1 /CMM (0.8-4.8); LYMPHOCYTES % (AUTO) 15.4 % (20.0-44.0); MEAN CORPUSCULAR HEMOGLOBIN 32 PG (26.0-33.0); MEAN CORPUSCULAR HGB CONC 33 g/dl (31.0-36.0); MEAN CORPUSCULAR VOLUME 98 fL (82-100); MONOCYTES # (AUTO) 0.7 /CMM (0.1-1.30); MONOCYTES % (AUTO) 9.5 % (2.0-12.0); NEUTROPHILS # (AUTO) 5.1 /CMM (1.8-8.9); NEUTROPHILS % (AUTO) 73.2 % (43.0-81.0); PLATELET COUNT (AUTO) 173 /CMM (150-450); RDW COEFFICIENT OF VARIATION 17.5 (11.5-15.0); RED BLOOD CELL COUNT(AUTO) 3.35 MIL/uL (4.0-5.2)
--- NOTE | 2016-09-24 07:30 | NUR ---
BILL/RN: PT RECEIVED IN BED, EYES CLOSED, RESPONDS TO TOUCH, LIGHT PAIN. AIRWAY CLEARED OF SECRETIONS, GAG AND COUGH REFLEX PRESENT. NO FACIAL GRIMACING, S/S PAIN NOTED. COLOSTOMY WITH NO OUTPUT NOTED. R HEEL OFFLOADED. RFA AV SHUNT BRUIT AND THRILL PRESENT. DRESSINGS C/D/I. WILL CONT TO MONITOR PT.
[2016-09-24 08:02] LABS: ALBUMIN 2.6 g/dL (3.4-5.0); BILIRUBIN,TOTAL 0.4 mg/dL (0.2-1.0); CALCIUM, SERUM 8.8 mg/dL (8.5-10.1); CREATININE 3.2 mg/dL (0.6-1.3); PHOSPHORUS 2.8 mg/dL (2.5-4.9); POTASSIUM 4.1 mmol/L (3.5-5.1); TOTAL PROTEIN, SERUM 8.1 g/dL (6.4-8.2)
[2016-09-24] MEDS: PROSOURCE / PROSTAT (PYXIS) 30 ML UDC GT SCH ×3 (08:37→16:20)
[2016-09-24] MEDS: LINEZOLID 600 MG TABLET GT SCH ×2 (08:37→20:02)
[2016-09-24] MEDS: PANTOPRAZOLE 40 MG/PACK PACK GT SCH (08:37)
[2016-09-24] MEDS: HEPARIN SODIUM, PORCINE 5000 UNITS/1 ML VIAL SQ SCH ×2 (08:37→20:06)
[2016-09-24] MEDS: CALCITRIOL 0.25 MCG CAPSULE GT SCH (08:37)
[2016-09-24] MEDS: ASCORBIC ACID 500 MG TABLET GT SCH (08:37)
[2016-09-24] MEDS: LISINOPRIL (20MG) 20 MG TABLET GT SCH (08:37)
[2016-09-24] MEDS: LACTOBACILLUS RHAMNOSUS GG 1 EACH CAP.SPRINK GT SCH ×2 (08:37→16:20)
[2016-09-24] MEDS: VIT B CMPLX 3/FA/VIT C/BIOTIN 1 TAB TABLET GT SCH (08:38)
[2016-09-24] MEDS: METOPROLOL TARTRATE 50 MG TABLET GT SCH ×2 (08:46→21:31)
[2016-09-24] MEDS: INSULIN DETEMIR 100 UNIT/ML CARTRIDGE SQ SCH ×2 (08:46→20:07)
[2016-09-24] MEDS: hydrALAZINE HCL 25 MG TABLET GT SCH ×2 (08:46→16:20)
[2016-09-24] MEDS: HYDROCODONE/APAP 5/325MG 1 EACH TABLET GT SCH (08:47)
[2016-09-24] MEDS ORDERED: Z GUARD REMEDY 2 OZ OINT TP PRN (11:30)
--- NOTE | 2016-09-24 11:41 | NUR ---
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 PT HAS LEFT ABOVE KNEE AMPUTATION STUMP. ALL SKIN AND WOUND RECOMMENDATIONS DISCUSSED WITH NURSING STAFF. FIRST STEP MATTRESS ORDERED. IN AGREEMENT WITH PLAN OF CARE. Addendum: 09/24/16 at 1142 by RICHARD DANG WNDNU Amended: Links added.
[2016-09-24] MEDS: HYDROGEL DRESSING 90 GM TUBE TP SCH (12:21)
[2016-09-24] MEDS: Z GUARD REMEDY 2 OZ OINT TP SCH (12:22)
[2016-09-24] MEDS: DAKINS QUARTER STRENGTH (0.125%) 480 ML BOTTLE TOP SCH (12:23)
--- NOTE | 2016-09-24 13:00 | NUR ---
TELE/RN: PT OFF HD; NO OUTPUT NOTED. BP 104/54, HR 88.
--- NOTE | 2016-09-24 14:30 | NUR ---
TELE/RN: WOUND CARE RENDERED ORDERED. PLACED ON KCI MATTRESS. TOLERATED WELL.
[2016-09-24] MEDS ORDERED: SECONDARY IV SET 1 EA INFUS.SET MC ONE (14:51)
[2016-09-24] MEDS: MEROPENEM 500 MG in IV NS 0.9% 50 ML IV SCH (15:00)
--- NOTE | 2016-09-24 18:39 | NUR ---
TELE/RN: PT RESTING IN BED COMFORTABLY, BREATHING EVEN AND UNLABORED, REMAINS CLEAN AND DRY. TOLERATING GTF AT ORDERED RATE, NO RESIDUALS NOTED. DRESSING C/D/I. R HEEL OFFLOADED. ALARM SOUNDS AUDIBLE, SAFETY MEASURES IN PLACE, WILL ENDORSE CARE TO PM RN FOR SOURAV.
--- NOTE | 2016-09-24 20:32 | NUR ---
received pt from day shift, obtunded, SR, on the vent, lungs congested, edema pitting, L colostomy intact, anuric HD pt, L AKA, GT to feeding tolerates well, v/s stable, no pain, pt turned and repositioned.
[2016-09-25] VITALS: BP_SYST 119; BP_SYST 125; BP_DIAS 58; BP_DIAS 65
--- NOTE | 2016-09-25 00:21 | NUR ---
pt is resting in the bed, v/s stable, no pain, pt turned and repositioned q2hrs.
[2016-09-25] MEDS: ALBUTEROL FS 2.5 MG/3 ML VIAL.NEB NEB SCH ×4 (01:24→19:34)
[2016-09-25] MEDS: IPRATROPIUM NEB FS 0.5 MG/2.5 ML AMPUL.NEB NEB SCH ×4 (01:24→19:34)
[2016-09-25 04:00] VITALS: BP 134/33
--- NOTE | 2016-09-25 04:06 | NUR ---
pt is resting in the bed, v/s stable, no pain, pt cleaned, changed and repositioned q2hrs.
[2016-09-25] MEDS: INSULIN REGULAR, HUMAN 100 UNIT/ML 3 ML VIAL SQ PRN ×4 (05:10→23:48)
[2016-09-25] MEDS: BLOOD SUGAR DIAGNOSTIC 1 EACH STRIP IN SCH ×4 (05:11→23:49)
[2016-09-25 07:10] LABS: BASOPHILS % (AUTO) 0.5 % (0.0-2.0); EOSINOPHILS # (AUTO) 0.1 /CMM (0.0-0.7); EOSINOPHILS % (AUTO) 0.8 % (0.0-6.0); HEMATOCRIT 35 % (33-45); HEMOGLOBIN 11.3 g/dL (11.5-14.8); LYMPHOCYTES # (AUTO) 1.1 /CMM (0.8-4.8); LYMPHOCYTES % (AUTO) 13.5 % (20.0-44.0); MEAN CORPUSCULAR HEMOGLOBIN 32 PG (26.0-33.0); MEAN CORPUSCULAR HGB CONC 33 g/dl (31.0-36.0); MEAN CORPUSCULAR VOLUME 97 fL (82-100); MONOCYTES # (AUTO) 0.9 /CMM (0.1-1.30); MONOCYTES % (AUTO) 11.3 % (2.0-12.0); NEUTROPHILS # (AUTO) 6.1 /CMM (1.8-8.9); NEUTROPHILS % (AUTO) 73.9 % (43.0-81.0); PLATELET COUNT (AUTO) 159 /CMM (150-450); RDW COEFFICIENT OF VARIATION 17.2 (11.5-15.0); RED BLOOD CELL COUNT(AUTO) 3.58 MIL/uL (4.0-5.2); WHITE BLOOD COUNT (AUTO) 8.2 K/uL (4.3-11.0)
[2016-09-25 07:28] LABS: ALBUMIN 2.7 g/dL (3.4-5.0); BILIRUBIN,TOTAL 0.4 mg/dL (0.2-1.0); CALCIUM, SERUM 9.1 mg/dL (8.5-10.1); CREATININE 3.4 mg/dL (0.6-1.3); MAGNESIUM 2.2 mg/dL (1.8-2.4); PHOSPHORUS 2.8 mg/dL (2.5-4.9); POTASSIUM 4.2 mmol/L (3.5-5.1); TOTAL PROTEIN, SERUM 8.1 g/dL (6.4-8.2)
--- NOTE | 2016-09-25 07:57 | NUR ---
FIELD OPERATIONS MANAGER NOTE PATIENT IN BED, ALL NEEDS ATTENDEE WITH TRACH TO VENT SETTING ORDERED , AMBU BAG AT HOB , AT ALL TIME , ON TELE MONITOR SR HR 90, WITH G TUBE FEEDING ORDERED, NO RESIDUAL NOTED, KEEP HOB ELEVATED AT ALL TIME WITH COLOSTOMY ON LOWER LT SIDE OF ABDOMEN INTACT WITH SMALL AMT OF FORMED STOOL, LT UPPER ARM MID LINE IN PLACE ,NO S\S INFECTION, RT FA AV FISTULA INTACT WITH BRUIT SOUND, BED IN LOWEST AND LOCKED POSITION, WILL CONT TO MONITOR CLOSELY
[2016-09-25 08:00] VITALS: BP 113/38
[2016-09-25] MEDS: VIT B CMPLX 3/FA/VIT C/BIOTIN 1 TAB TABLET GT SCH (08:21)
[2016-09-25] MEDS: PANTOPRAZOLE 40 MG/PACK PACK GT SCH (08:22)
[2016-09-25] MEDS: LINEZOLID 600 MG TABLET GT SCH ×2 (08:22→21:30)
[2016-09-25] MEDS: ASCORBIC ACID 500 MG TABLET GT SCH (08:22)
[2016-09-25] MEDS: hydrALAZINE HCL 25 MG TABLET GT SCH ×2 (08:23→16:27)
[2016-09-25] MEDS: HYDROCODONE/APAP 5/325MG 1 EACH TABLET GT SCH (08:23)
[2016-09-25] MEDS: HEPARIN SODIUM, PORCINE 5000 UNITS/1 ML VIAL SQ SCH ×2 (08:24→21:31)
[2016-09-25] MEDS: LACTOBACILLUS RHAMNOSUS GG 1 EACH CAP.SPRINK GT SCH ×2 (08:24→16:26)
[2016-09-25] MEDS: CALCITRIOL 0.25 MCG CAPSULE GT SCH (08:24)
[2016-09-25] MEDS: PROSOURCE / PROSTAT (PYXIS) 30 ML UDC GT SCH ×3 (08:24→16:26)
[2016-09-25] MEDS: Z GUARD REMEDY 2 OZ OINT TP SCH (09:19)
[2016-09-25] MEDS: HYDROGEL DRESSING 90 GM TUBE TP PRN (09:20)
[2016-09-25] MEDS: HYDROGEL DRESSING 90 GM TUBE TP SCH (09:21)
[2016-09-25] MEDS: DAKINS QUARTER STRENGTH (0.125%) 480 ML BOTTLE TOP SCH (09:22)
[2016-09-25] MEDS: INSULIN DETEMIR 100 UNIT/ML CARTRIDGE SQ SCH ×2 (09:23→21:36)
--- NOTE | 2016-09-25 11:18 | NUR ---
TABLET TESTER NOTE ALL NEEDS ATTENDED ,NOT IN ACUTE DISTRESS KEEP CLEAN DRY , NOT IN ACUTE DISTRESS
[2016-09-25 12:00] VITALS: BP 117/60
--- NOTE | 2016-09-25 13:00 | NUR ---
COOK FRUIT NOTE \ SEEN BY DR NICHOLE, NO NEW ORDER GIVEN AT THIS TIME, WILL CONT TO MONITOR CLOSELY , KEEP CLEAN DRY , NOT IN ACUTE DISTRESS
[2016-09-25 16:00] VITALS: BP 116/62
--- NOTE | 2016-09-25 16:10 | NUR ---
OFFICE RENTAL CLERK NOTE BP 75/[address] CONDE STATED THAT WILL ORDER BOLUS WILL F\U
[2016-09-25] MEDS: MEROPENEM 500 MG in IV NS 0.9% 50 ML IV SCH (16:28)
--- NOTE | 2016-09-25 17:21 | NUR ---
BARREL STRAIGHTENER NOTE PT REMAINED STABLE DURING SHIFT. NO ACUTE DISTRESS NOTED. NO C/O PAIN AFTER INTIAL GRIMACING NOTED AT WHICH TIME PATIENT GIVEN PAIN MEDICATION PER SCHEDULE . ALL NEEDS ATTENDED TO AND MET PROMPTLY. CALL LIGHT WITHIN REACH AT ALL TIMES. CONTACT ISOLATION PRECAUTION OBSERVED. WILL ENDORSE TO NEXT SHIFT FOR SOURAV.
--- NOTE | 2016-09-25 17:57 | NUR ---
RT RECEIVED PT TRACH'D ON [facility] VENT WITH SETTINGS PER MD ORDER. RECEIVING DOCK CHECKER DONE. BILAT RHONCHI BREATH SOUNDS. SUCTIONED SMALL AMOUNTS OF THICK, PALE YELLOW SECRETIONS. TX'S GIVEN. NO ADVERSE REACTIONS OBSERVED. TRACH SECURE AND AIRWAY PATENT. SPARE TRACH AND AMBU BAG AT BEDSIDE. ALARMS ON AND SET PROPERLY. VENT PLUGGED INTO RED OUTLET. NO SOB OR SIGNS OF DISTRESS NOTED AT THIS TIME. WILL CONTINUE TO MONITOR THE PATIENT FOR ANY CHANGES. Addendum: 09/25/16 at 1759 by JAVON STANLEY RT Amended: Links added.
--- NOTE | 2016-09-25 18:20 | NUR ---
SALON SUPERVISOR CLOSING NOTE PT REMAINED STABLE DURING SHIFT. NO ACUTE DISTRESS NOTED. NO C/O PAIN AFTER INITIAL GRIMACING NOTED AT WHICH TIME PATIENT GIVEN PAIN MEDICATION PER SCHEDULE . ALL NEEDS ATTENDED TO AND MET PROMPTLY. CALL LIGHT WITHIN REACH AT ALL TIMES. CONTACT ISOLATION PRECAUTION OBSERVED. WILL ENDORSE TO PM SHIFT FOR SOURAV. TRACH CARE PROVIDED WITHOUT ISSUE , PT O2 AT 100%.
[2016-09-25 20:00] VITALS: BP 95/45
[2016-09-25] MEDS: MUPIROCIN OINT 2% 22 GM TUBE SCH (21:33)
[2016-09-25] MEDS: METOPROLOL TARTRATE 50 MG TABLET GT SCH (21:36)
[2016-09-26] VITALS: BP_SYST 119; BP_SYST 95; BP_DIAS 45; BP_DIAS 58
[2016-09-26] MEDS: IPRATROPIUM NEB FS 0.5 MG/2.5 ML AMPUL.NEB NEB SCH ×4 (01:19→19:50)
[2016-09-26] MEDS: ALBUTEROL FS 2.5 MG/3 ML VIAL.NEB NEB SCH ×4 (01:19→19:50)
[2016-09-26 04:00] VITALS: BP 136/73
[2016-09-26] MEDS: BLOOD SUGAR DIAGNOSTIC 1 EACH STRIP IN SCH ×4 (05:34→23:36)
[2016-09-26] MEDS: INSULIN REGULAR, HUMAN 100 UNIT/ML 3 ML VIAL SQ PRN ×4 (05:35→23:36)
--- NOTE | 2016-09-26 06:35 | NUR ---
RN NOTE PT REMAINS IN NO ACUTE DISTRESS IN BED. PT IS OBTUNDED, BUT OPENS EYES. PT IS ON MECHANICAL VENT VIA TRACH. TRACH SITE IS CLEAN DRY AND INTACT. PT TOLERATING VENT SETTING WELL. PT IS ON TELE WITH SR ON THE MONITOR. PT HAS COLONOSCOPY THAT IS CLEAN DRY AND INTACT. PT HAS GTUBE THAT IS CLEAN DRY INTACT AND PATENT W3ITH NOVASOURCE @ 45ML/HR AND TOLERATING WELL WITH 0 RESIDUAL. PT HAS ALEXSANDRA MIDLINE THAT IS CLEAN DRY INTACT AND PATENT WITH SALINE FLUSH. ALL NEEDS MET ALL ORDERS CARRIED OUT. WILL ENDORSE TO AM RN FOR CONTINUITY OF CARE.
[2016-09-26] MEDS: PANTOPRAZOLE 40 MG/PACK PACK GT SCH (06:55)
[2016-09-26] MEDS ORDERED: IV NS 0.9% 250 ML IV ONE (07:20)
[2016-09-26 08:00] VITALS: BP 152/79
--- NOTE | 2016-09-26 08:00 | NUR ---
TELE1/RN AM SHIFT INITIAL NOTES RECEIVED PT ASLEEP IN BED, PT OBTUNDED. NO GRIMACE OR ACUTE CHANGE OF CONDITION NOTED. ON VENTILATOR SET AT PRESCRIBED RATE, SATURATING @ 99%, NOTED WITH DIMINISHED LUNG SOUNDS. SUCTIONED FOR AIRWAY CLEARANCE. ON TELE WITH SINUS RHYTHM WITH BBB AND FIRST DEGREE BLOCK, HR 86. ON GOING GTF @ 45CC/HR, NO GASTRIC RESIDUAL, FLUSHED, PATENT. MIDLINE ON TKO, NO S/S OF INFECTION. COLOSTOMY BAG WITH SOFT BROWN FECAL OUTPUT. FISTULA (+) OF THRILL & BRUIT, NOTED WITH EDEMA + 2-3 ON HANDS. PT IS COMFORTABLE AT THIS TIME. SCHEDULED AM MEDS TO BE GIVEN. CL WITHIN REACHED, SAFETY MAINTAINED AND ISOLATION OBSERVED. ON GOING MONITORING.
[2016-09-26] MEDS: PROSOURCE / PROSTAT (PYXIS) 30 ML UDC GT SCH ×3 (09:26→17:27)
[2016-09-26] MEDS: LACTOBACILLUS RHAMNOSUS GG 1 EACH CAP.SPRINK GT SCH ×2 (09:26→17:27)
[2016-09-26] MEDS: ASCORBIC ACID 500 MG TABLET GT SCH (09:26)
[2016-09-26] MEDS: VIT B CMPLX 3/FA/VIT C/BIOTIN 1 TAB TABLET GT SCH (09:26)
[2016-09-26] MEDS: CALCITRIOL 0.25 MCG CAPSULE GT SCH (09:26)
[2016-09-26] MEDS: LINEZOLID 600 MG TABLET GT SCH ×2 (09:27→21:38)
[2016-09-26] MEDS: METOPROLOL TARTRATE 50 MG TABLET GT SCH ×2 (09:27→21:38)
[2016-09-26] MEDS: LISINOPRIL (20MG) 20 MG TABLET GT SCH (09:28)
[2016-09-26] MEDS: hydrALAZINE HCL 25 MG TABLET GT SCH ×2 (09:28→17:28)
[2016-09-26] MEDS: HYDROCODONE/APAP 5/325MG 1 EACH TABLET GT SCH (09:28)
[2016-09-26] MEDS: HYDROGEL DRESSING 90 GM TUBE TP SCH (09:29)
[2016-09-26] MEDS: MUPIROCIN OINT 2% 22 GM TUBE SCH ×2 (09:29→21:39)
[2016-09-26] MEDS: DAKINS QUARTER STRENGTH (0.125%) 480 ML BOTTLE TOP SCH (09:30)
[2016-09-26] MEDS: Z GUARD REMEDY 2 OZ OINT TP SCH (09:30)
[2016-09-26] MEDS: HEPARIN SODIUM, PORCINE 5000 UNITS/1 ML VIAL SQ SCH ×2 (09:33→21:38)
[2016-09-26] MEDS: INSULIN DETEMIR 100 UNIT/ML CARTRIDGE SQ SCH ×2 (09:34→21:43)
[2016-09-26 12:00] VITALS: BP 134/70
--- NOTE | 2016-09-26 12:00 | NUR ---
TELE1/RN NOON ROUNDS PT SUCTIONED AND REPOSITIONED. NO CHANGE OF CONDITION. MONITORING CONTINUED.
[2016-09-26 16:00] VITALS: BP 141/78
[2016-09-26] MEDS: MEROPENEM 500 MG in IV NS 0.9% 50 ML IV SCH (17:27)
--- NOTE | 2016-09-26 19:42 | NUR ---
TELE1/RN AM SHIFT END NOTES NO ACUTE CHANGE OF CONDITION NOTED DURING THE SHIFT. NEEDS MET. PT ENDORSED TO PM NURSE TO CONTINUE CARE. CL WITHIN REACHED, SAFETY MAINTAINED AND ISOLATION OBSERVED.
[2016-09-26 20:00] VITALS: BP 119/53
--- NOTE | 2016-09-26 20:40 | NUR ---
RN INITIAL NOTE RECEIVED PT IN NO ACUTE DISTRESS IN BED. PT IS OBTUNDED AND ON MECHANICAL VENT VIA TRACH. TRACH SITE IS CLEAN DRY AND INTACT. PT TOLERATED VENT SETTING WELL. PT IS ON TELE WITH SR ON THE MONITOR. PT HAS COLOSTOMY THAT IS CLEAN DRY INTACT AND PATENT WITH BROWN STOOL. PT HAS GTUBE THAT IS CLEAN DRY INTACT AND PATENT WITH NOVASOURCE @ 45ML/HR AND TOLERATING WELL WITH 0 RESIDUAL. PT HAS ALEXSANDRA MIDLINE THAT IS CLEAN DRY INTACT AND PATENT WITH NS @ TKO. PT HAS RFA FISTULA THAT IS CLEAN DRY AND INTACT. BED IN LOW LOCK POSITION WITH RIALS UP X 2. CALL LIGHT WITHIN REACH AND ALL SAFETY MEASURES ENSURED AND CARRIED OUT. WILL CONTINUE TO MONITOR FOR ANY CHANGES IN CONDITION.
[2016-09-27] VITALS: BP 158/70
[2016-09-27] MEDS: IPRATROPIUM NEB FS 0.5 MG/2.5 ML AMPUL.NEB NEB SCH ×4 (01:39→19:46)
[2016-09-27] MEDS: ALBUTEROL FS 2.5 MG/3 ML VIAL.NEB NEB SCH ×4 (01:39→19:46)
[2016-09-27 04:00] VITALS: BP 141/50
[2016-09-27] MEDS: BLOOD SUGAR DIAGNOSTIC 1 EACH STRIP IN SCH ×3 (05:12→17:12)
[2016-09-27] MEDS: INSULIN REGULAR, HUMAN 100 UNIT/ML 3 ML VIAL SQ PRN ×3 (05:14→17:15)
--- NOTE | 2016-09-27 06:53 | NUR ---
RN CLOSING NOTE PT REMAINS IN NO ACUTE DISTRESS IN BED. PT DID NOT HAVE ANY SIGNIFICANT CHANGE IN CONDITION. PT TOLERATED VENT SETTINGS WELL. ALL NEEDS MET ALL ORDERS CARRIED OUT. ALL SAFETY MEASURES ENSURED AND CARRIED OUT. WILL ENDORSE TO AM RN FOR CONTINUITY OF CARE.
[2016-09-27 08:00] VITALS: BP_SYST 120; BP_SYST 143; BP_DIAS 39; BP_DIAS 58
[2016-09-27] MEDS: PANTOPRAZOLE 40 MG/PACK PACK GT SCH (10:04)
[2016-09-27] MEDS: LACTOBACILLUS RHAMNOSUS GG 1 EACH CAP.SPRINK GT SCH ×2 (10:05→17:11)
[2016-09-27] MEDS: CALCITRIOL 0.25 MCG CAPSULE GT SCH (10:05)
[2016-09-27] MEDS: LINEZOLID 600 MG TABLET GT SCH ×2 (10:05→21:56)
[2016-09-27] MEDS: ASCORBIC ACID 500 MG TABLET GT SCH (10:06)
[2016-09-27] MEDS: hydrALAZINE HCL 25 MG TABLET GT SCH ×2 (10:06→17:00)
[2016-09-27] MEDS: VIT B CMPLX 3/FA/VIT C/BIOTIN 1 TAB TABLET GT SCH (10:06)
[2016-09-27] MEDS: PROSOURCE / PROSTAT (PYXIS) 30 ML UDC GT SCH ×3 (10:07→17:11)
[2016-09-27] MEDS: HYDROCODONE/APAP 5/325MG 1 EACH TABLET GT SCH (10:07)
[2016-09-27] MEDS: MUPIROCIN OINT 2% 22 GM TUBE SCH ×2 (10:08→22:01)
[2016-09-27] MEDS: DAKINS QUARTER STRENGTH (0.125%) 480 ML BOTTLE TOP SCH (10:09)
[2016-09-27] MEDS: INSULIN DETEMIR 100 UNIT/ML CARTRIDGE SQ SCH ×2 (10:11→21:59)
[2016-09-27] MEDS: HEPARIN SODIUM, PORCINE 5000 UNITS/1 ML VIAL SQ SCH ×2 (10:13→21:57)
[2016-09-27] MEDS: Z GUARD REMEDY 2 OZ OINT TP SCH (10:17)
[2016-09-27] MEDS: HYDROGEL DRESSING 90 GM TUBE TP SCH (10:18)
[2016-09-27 12:00] VITALS: BP 111/35
[2016-09-27 16:00] VITALS: BP 101/38
[2016-09-27] MEDS: MEROPENEM 500 MG in IV NS 0.9% 50 ML IV SCH (17:11)
[2016-09-27] MEDS: ACETAMINOPHEN 650 MG/20.3 ML UDC GT PRN (17:11)
[2016-09-27 20:00] VITALS: BP 97/39
[2016-09-27] MEDS: METOPROLOL TARTRATE 50 MG TABLET GT SCH (22:00)
[2016-09-28] VITALS: BP 118/56
[2016-09-28] MEDS: INSULIN REGULAR, HUMAN 100 UNIT/ML 3 ML VIAL SQ PRN ×4 (01:38→18:45)
[2016-09-28] MEDS: IPRATROPIUM NEB FS 0.5 MG/2.5 ML AMPUL.NEB NEB SCH ×4 (01:43→19:51)
[2016-09-28] MEDS: ALBUTEROL FS 2.5 MG/3 ML VIAL.NEB NEB SCH ×4 (01:43→19:51)
[2016-09-28 04:00] VITALS: BP 134/76
[2016-09-28] MEDS: BLOOD SUGAR DIAGNOSTIC 1 EACH STRIP IN SCH ×4 (06:00→18:00)
--- NOTE | 2016-09-28 06:44 | NUR ---
RN CLOSING NOTE PT IN STABLE CONDITION, IN NO ACUTE DISTRESS, AFEBRILE, NO S/S OF INFECTION, NO PAIN OR DISCOMFORT NOTED. COLOSTOMY INTACT, OUTPUT OF 300ML SOFT YELLOWISH OUTPUT, REPLACE OLD BAG WITH NEW BAG. GTUBE PATENT AND INTACT, DRESSING CHANGED. IV SITE INTACT, NO S/S OF INFECTION. ISOLATION PRECAUTIONS OBSERVED AT ALL TIMES. WILL ENDORSE TO AM NURSE FOR CONTINUITY OF CARE.
[2016-09-28 07:46] LABS: BASOPHILS % (AUTO) 0.5 % (0.0-2.0); EOSINOPHILS # (AUTO) 0.2 /CMM (0.0-0.7); EOSINOPHILS % (AUTO) 2.6 % (0.0-6.0); HEMATOCRIT 36 % (33-45); HEMOGLOBIN 11.5 g/dL (11.5-14.8); LYMPHOCYTES # (AUTO) 1.1 /CMM (0.8-4.8); LYMPHOCYTES % (AUTO) 14.7 % (20.0-44.0); MEAN CORPUSCULAR HEMOGLOBIN 32 PG (26.0-33.0); MEAN CORPUSCULAR HGB CONC 32 g/dl (31.0-36.0); MEAN CORPUSCULAR VOLUME 98 fL (82-100); MONOCYTES # (AUTO) 0.5 /CMM (0.1-1.30); NEUTROPHILS # (AUTO) 5.7 /CMM (1.8-8.9); NEUTROPHILS % (AUTO) 76.2 % (43.0-81.0); PLATELET COUNT (AUTO) 162 /CMM (150-450); RDW COEFFICIENT OF VARIATION 17.3 (11.5-15.0); RED BLOOD CELL COUNT(AUTO) 3.62 MIL/uL (4.0-5.2); WHITE BLOOD COUNT (AUTO) 7.5 K/uL (4.3-11.0)
[2016-09-28 08:00] VITALS: BP 131/69
[2016-09-28] MEDS: PANTOPRAZOLE 40 MG/PACK PACK GT SCH (08:00)
--- NOTE | 2016-09-28 08:00 | NUR ---
RECEIVED PATIENT LYING IN BED TRACHED ON VENT. AV FISTULA WITH GOOD BRUIT R FOREARM FOR DIALYSIS TODAY PER REPORT. PATIENT HAS NO SPONTANEOUS MOVEMENT OF EXTREMITIES, OPENS EYES SPONTANEOUSLY BUT DOES NOT TRACK. PEG TUBE ABD RECEIVING NOVASOURCE RENAL AT 45CC/HOUR, HOB UP FOR FEEDING, RESIDUAL 5 CC. COLOSTOMY LLQ ABD WITH SMALL AMOUNT BROWN LIQUID STOOL. PT CONTRACTURED BUE, RLE FOOT DROP AND L AKA. SACCRAL DRESSING CHANGED AT 0700 PER REPORT
[2016-09-28 08:09] LABS: CALCIUM, SERUM 9.6 mg/dL (8.5-10.1); CREATININE 4.3 mg/dL (0.6-1.3); MAGNESIUM 2.5 mg/dL (1.8-2.4); PHOSPHORUS 2.6 mg/dL (2.5-4.9); POTASSIUM 4.3 mmol/L (3.5-5.1)
[2016-09-28] MEDS: INSULIN DETEMIR 100 UNIT/ML CARTRIDGE SQ SCH ×2 (09:00→21:14)
[2016-09-28] MEDS: hydrALAZINE HCL 25 MG TABLET GT SCH ×2 (09:15→17:47)
[2016-09-28] MEDS: LACTOBACILLUS RHAMNOSUS GG 1 EACH CAP.SPRINK GT SCH ×2 (09:15→17:47)
[2016-09-28] MEDS: METOPROLOL TARTRATE 50 MG TABLET GT SCH ×2 (09:17→21:21)
[2016-09-28] MEDS: HYDROCODONE/APAP 5/325MG 1 EACH TABLET GT SCH (09:17)
[2016-09-28] MEDS: VIT B CMPLX 3/FA/VIT C/BIOTIN 1 TAB TABLET GT SCH (09:17)
[2016-09-28] MEDS: PROSOURCE / PROSTAT (PYXIS) 30 ML UDC GT SCH ×3 (09:18→17:46)
[2016-09-28] MEDS: LISINOPRIL (20MG) 20 MG TABLET GT SCH (09:18)
[2016-09-28] MEDS: CALCITRIOL 0.25 MCG CAPSULE GT SCH (09:18)
[2016-09-28] MEDS: MUPIROCIN OINT 2% 22 GM TUBE SCH ×2 (09:19→21:15)
[2016-09-28] MEDS: LINEZOLID 600 MG TABLET GT SCH ×2 (09:19→21:12)
[2016-09-28] MEDS: ASCORBIC ACID 500 MG TABLET GT SCH (09:19)
[2016-09-28] MEDS: HEPARIN SODIUM, PORCINE 5000 UNITS/1 ML VIAL SQ SCH ×2 (09:21→21:13)
[2016-09-28] MEDS: DAKINS QUARTER STRENGTH (0.125%) 480 ML BOTTLE TOP SCH (09:22)
[2016-09-28] MEDS: HYDROGEL DRESSING 90 GM TUBE TP PRN (09:23)
[2016-09-28] MEDS: Z GUARD REMEDY 2 OZ OINT TP SCH (09:23)
[2016-09-28] MEDS: HYDROGEL DRESSING 90 GM TUBE TP SCH (09:24)
[2016-09-28 12:00] VITALS: BP 106/74
--- NOTE | 2016-09-28 15:00 | NUR ---
TOLERATED DIALYSIS WELL, TOOK 1100CC OFF. vs AFTER DIALYSIS PER SALVAGE INSPECTOR WOOD PARTS: B/P 104/20, HR 71 AND TEMP 97.5
[2016-09-28 16:00] VITALS: BP_SYST 127; BP_SYST 137; BP_DIAS 63; BP_DIAS 67
[2016-09-28] MEDS: MEROPENEM 500 MG in IV NS 0.9% 50 ML IV SCH (16:00)
[2016-09-28 20:00] VITALS: BP 115/79
[2016-09-29] VITALS: BP_SYST 120; BP_SYST 122; BP_DIAS 60; BP_DIAS 70
[2016-09-29] MEDS: ALBUTEROL FS 2.5 MG/3 ML VIAL.NEB NEB SCH ×4 (01:51→19:18)
[2016-09-29] MEDS: IPRATROPIUM NEB FS 0.5 MG/2.5 ML AMPUL.NEB NEB SCH ×4 (01:52→19:19)
[2016-09-29] MEDS: INSULIN REGULAR, HUMAN 100 UNIT/ML 3 ML VIAL SQ PRN ×5 (02:10→23:38)
[2016-09-29 04:00] VITALS: BP 127/72
[2016-09-29] MEDS: BLOOD SUGAR DIAGNOSTIC 1 EACH STRIP IN SCH ×5 (05:57→23:36)
--- NOTE | 2016-09-29 07:00 | NUR ---
RN NOTE RECEIVED PT ON BED , NON VERBAL , OBTUNDED , VENT DEPENDENT , TRACH CARE DONE, TOLERATING CURRENT VENT SETTING WELL, ON TELE WITH SR IN 80'S , COLOSTOMY DARNING BROWN STOOL , CLEAN DRY INTACT AND PATENT ,TOLERATING TF NOVASOURCE AT 45CC/HR VIA G TUBE, NO RESIDUAL NOTED, L UA MIDLINE CLEAN DRY INTACT AND PATENT WITH NS @ TKO. PT HAS RFA FISTULA THAT IS CLEAN DRY AND INTACT. BED IS LOCKED AND IN LOWEST POSITION , SR UP X 3 . CALL LIGHT WITHIN EASY REACH ,WILL CONTINUE TO MONITOR PT CLOSELY AND NOTIFY MD FOR ANY SIGNIFICANT CHANGES.
[2016-09-29 08:00] VITALS: BP 167/66
[2016-09-29] MEDS: VIT B CMPLX 3/FA/VIT C/BIOTIN 1 TAB TABLET GT SCH (08:16)
[2016-09-29] MEDS: CALCITRIOL 0.25 MCG CAPSULE GT SCH (08:16)
[2016-09-29] MEDS: LINEZOLID 600 MG TABLET GT SCH ×2 (08:16→20:43)
[2016-09-29] MEDS: PROSOURCE / PROSTAT (PYXIS) 30 ML UDC GT SCH ×3 (08:16→17:41)
[2016-09-29] MEDS: PANTOPRAZOLE 40 MG/PACK PACK GT SCH (08:16)
[2016-09-29] MEDS: LACTOBACILLUS RHAMNOSUS GG 1 EACH CAP.SPRINK GT SCH ×2 (08:16→17:41)
[2016-09-29] MEDS: HYDROCODONE/APAP 5/325MG 1 EACH TABLET GT SCH (08:17)
[2016-09-29] MEDS: LISINOPRIL (20MG) 20 MG TABLET GT SCH (08:17)
[2016-09-29] MEDS: ASCORBIC ACID 500 MG TABLET GT SCH (08:17)
[2016-09-29] MEDS: METOPROLOL TARTRATE 50 MG TABLET GT SCH ×2 (08:18→22:20)
[2016-09-29] MEDS: hydrALAZINE HCL 25 MG TABLET GT SCH ×2 (08:18→17:41)
[2016-09-29] MEDS: HEPARIN SODIUM, PORCINE 5000 UNITS/1 ML VIAL SQ SCH ×2 (08:20→20:44)
[2016-09-29] MEDS: HYDROGEL DRESSING 90 GM TUBE TP PRN (08:23)
[2016-09-29] MEDS: DAKINS QUARTER STRENGTH (0.125%) 480 ML BOTTLE TOP SCH (08:23)
[2016-09-29] MEDS: Z GUARD REMEDY 2 OZ OINT TP SCH (08:23)
[2016-09-29] MEDS: MUPIROCIN OINT 2% 22 GM TUBE SCH ×2 (08:25→20:48)
[2016-09-29] MEDS: HYDROGEL DRESSING 90 GM TUBE TP SCH (08:27)
[2016-09-29] MEDS: INSULIN DETEMIR 100 UNIT/ML CARTRIDGE SQ SCH ×2 (09:39→23:37)
[2016-09-29 12:00] VITALS: BP 130/50
--- NOTE | 2016-09-29 14:00 | NUR ---
RN NOTES NO ROOM AVAILABLE AT [facility] FOR PT TO BE DISCHARGE .
[2016-09-29] MEDS: MEROPENEM 500 MG in IV NS 0.9% 50 ML IV SCH (15:04)
[2016-09-29 18:00] VITALS: BP 128/70
--- NOTE | 2016-09-29 18:56 | NUR ---
RN NOTES PT STABLE, TRACH CARE DONE, MEDICATED PER MD ORDER ,TOLERATING TF WELL, NO RESIDUAL NOTED, NO SIGNIFICANT CHANGES NOTED ON THIS SHIFT.
[2016-09-29 20:00] VITALS: BP 163/53
--- NOTE | 2016-09-29 20:00 | NUR ---
SODA COLUMN OPERATOR NOTE PT IN BED OBTUNDED. ON VENT/TRACH TOLERATING THE SETTINGS WELL. SUCTIONED HER NEEDED. NO DISTRESS OR DISCOMFORT NOTED. NO S/S OF PAIN NOTED. GT FEEDING INFUSING AT 45 ML/HR, NO RESIDUAL NOTED. DRESSING ON SACRUM I/C/D. COLOSTOMY BAG INTACT AND DRAINING LIQUIDY STOOL. ON TELE SR HR 81. REPOSITION HER Q2H. KEPT HER DRY AND CLEAN. KEPT HOB ELEVATED 30 DEGREES. SIDE RAILS UP X 2 AND CALL LIGHT WITHIN REACH. WILL ENDORSE TO DAY SHIFT NURSE FOR CONTINUE TO CARE.
[2016-09-30] VITALS: BP 153/58
[2016-09-30] MEDS: IPRATROPIUM NEB FS 0.5 MG/2.5 ML AMPUL.NEB NEB SCH ×2 (01:20→07:07)
[2016-09-30] MEDS: ALBUTEROL FS 2.5 MG/3 ML VIAL.NEB NEB SCH ×2 (01:22→07:07)
[2016-09-30] MEDS: RENAL NOVASOURCE 1,000 ML BOTTLE GT PRN (03:05)
[2016-09-30 04:00] VITALS: BP 159/68
[2016-09-30] MEDS: BLOOD SUGAR DIAGNOSTIC 1 EACH STRIP IN SCH (05:51)
[2016-09-30] MEDS: INSULIN REGULAR, HUMAN 100 UNIT/ML 3 ML VIAL SQ PRN (05:53)
--- NOTE | 2016-09-30 06:46 | NUR ---
STUDIO POTTER NOTE PT IN BED OBTUNDED. ON VENT/TRACH TOLERATING THE SETTINGS WELL. SUCTIONED HER NEEDED. NO DISTRESS OR DISCOMFORT NOTED. NO S/S OF PAIN NOTED. GT FEEDING INFUSING AT 45 ML/HR, NO RESIDUAL NOTED. DRESSING ON SACRUM I/C/D. COLOSTOMY BAG INTACT AND DRAINING LIQUIDY STOOL. REPOSITION HER Q2H. KEPT HER DRY AND CLEAN. KEPT HOB ELEVATED 30 DEGREES. SIDE RAILS UP X 2 AND CALL LIGHT WITHIN REACH. WILL ENDORSE TO DAY SHIFT NURSE FOR CONTINUE TO CARE.
[2016-09-30 08:00] VITALS: BP 141/34
[2016-09-30] MEDS: PROSOURCE / PROSTAT (PYXIS) 30 ML UDC GT SCH (08:04)
[2016-09-30] MEDS: PANTOPRAZOLE 40 MG/PACK PACK GT SCH (08:04)
[2016-09-30] MEDS: HYDROCODONE/APAP 5/325MG 1 EACH TABLET GT SCH (08:04)
[2016-09-30] MEDS: ASCORBIC ACID 500 MG TABLET GT SCH (08:04)
[2016-09-30] MEDS: VIT B CMPLX 3/FA/VIT C/BIOTIN 1 TAB TABLET GT SCH (08:04)
[2016-09-30] MEDS: LINEZOLID 600 MG TABLET GT SCH (08:04)
[2016-09-30 08:05] VITALS: BP 141/34
[2016-09-30] MEDS: hydrALAZINE HCL 25 MG TABLET GT SCH (08:05)
[2016-09-30] MEDS: HYDROGEL DRESSING 90 GM TUBE TP SCH (08:05)
[2016-09-30] MEDS: LACTOBACILLUS RHAMNOSUS GG 1 EACH CAP.SPRINK GT SCH (08:05)
[2016-09-30] MEDS: MUPIROCIN OINT 2% 22 GM TUBE SCH (08:05)
[2016-09-30] MEDS: DAKINS QUARTER STRENGTH (0.125%) 480 ML BOTTLE TOP SCH (08:05)
[2016-09-30] MEDS: CALCITRIOL 0.25 MCG CAPSULE GT SCH (08:05)
[2016-09-30] MEDS: INSULIN DETEMIR 100 UNIT/ML CARTRIDGE SQ SCH (08:06)
[2016-09-30] MEDS: HEPARIN SODIUM, PORCINE 5000 UNITS/1 ML VIAL SQ SCH (08:07)
[2016-09-30] MEDS: Z GUARD REMEDY 2 OZ OINT TP SCH (08:07)
[2016-09-30] MEDS ORDERED: MUPI22OI7 (09:25)
[2016-09-30] MEDS ORDERED: SODI473S8 TOP (09:25)
[2016-09-30] MEDS ORDERED: LINE600T GT (09:25)
--- NOTE | 2016-09-30 11:30 | NUR ---
DISCHARGE NOTE PATIENT TRANSPORTED AT THIS TIME, ACCOMPANIED BY RT TO SUB ACUTE UNIT, ACCEPTING NURSE MICAH IN ROOM 273. PATIENT LOC AND BREATHING UNCHANGED- PER BASELINE STABLE. SKIN CHECKED AND NOTED SAME ASSESSMENT THAN ON ADMISSION- PHOTOS IN CHART, COMPLETE WOUND CARE PROVIDED ORDERED. FULL BED BATH GIVEN AT THIS TIME. COLOSTOMY BAG CHANGES, NON-LEAKING PATIENT ANURIC. COCO ARM MIDLINE AND PERIPHERAL IV LINE ARE PATENT AND DRESSING CDI- IN PLACE FOR CONT' ON MERREM- INFORMED ACCEPTING NURSE. PATIENT CONTINUES TO HAVE AUDIBLE RHONCHI LUNG SOUNDS, EDEMA PRESENT. DR. ADAMS IS AWARE. PER DIALYSIS TO BE SCHEDULED OUTPATIENT, CHARGE NURSE AND CONDITIONER TUMBLER OPERATOR AWARE. BP 160/75, HR 84, OS SAT 100%, TEMP 98.0, RR12. GT PATENT, NO RESIDUALS.
== END 2016-09-30 11:30 | DRG 130 ==
LOC: ER 14:56 → TELE1 17:33 → UNDOADMIN 17:33 → TELE1 17:37 → TELE-TD 20:37 → TELE1 09-24 09:39
PROVIDERS: ADMIT Internal Medicine Nephrology; ATTEND Internal Medicine Nephrology
PROC: 5A1955Z Respiratory Ventilation, Greater than 96 Consecutive Hours (ICD-10-PCS; principal; 2016-09-23)
PROC: 5A1D60Z (ICD-10-PCS; 2016-09-24)
DX: J95.851 Ventilator associated pneumonia (principal); R65.21 Severe sepsis with septic shock; A41.9 Sepsis, unspecified organism; G92 Toxic encephalopathy; G93.1 Anoxic brain damage, not elsewhere classified; L89.154 Pressure ulcer of sacral region, stage 4; Z99.11 Dependence on respirator [ventilator] status; R40.3 Persistent vegetative state; J96.11 Chronic respiratory failure with hypoxia; N18.6 End stage renal disease; I12.0 Hypertensive chronic kidney disease with stage 5 chronic kidney disease or end stage renal disease; E11.22 Type 2 diabetes mellitus with diabetic chronic kidney disease; Z99.2 Dependence on renal dialysis; I73.9 Peripheral vascular disease, unspecified; Z89.612 Acquired absence of left leg above knee; D63.1 Anemia in chronic kidney disease; Z93.1 Gastrostomy status; J98.11 Atelectasis; R13.10 Dysphagia, unspecified; Z79.899 Other long term (current) drug therapy; N25.81 Secondary hyperparathyroidism of renal origin; E11.51 Type 2 diabetes mellitus with diabetic peripheral angiopathy without gangrene; Y84.9 Medical procedure, unspecified as the cause of abnormal reaction of the patient, or of later complication, without mention of misadventure at the time of the procedure; Y82.8 Other medical devices associated with adverse incidents; Y92.129 Unspecified place in nursing home as the place of occurrence of the external cause; Z22.322 Carrier or suspected carrier of Methicillin resistant Staphylococcus aureus
CPT/HCPCS: 31720; 36415; 71010-TC; 80048-TC; 80053-TC; 80076-TC; 82533; 82962-TC; 83605-TC; 83735-TC; 84100-TC; 84484-TC; 85025-TC; 85730-TC; 87040-TC; 87081-TC; 90935-TC; 94002-TC; 94003-TC; 94760-TC; 94762-TC; 94799-TC; A4216; A4606; A6248; A6253; A6403; A7526; J1644; J1815; J2185; J3370; J7050; J7060; Z7610

== ENCOUNTER 2016-09-30 11:19 | Inpatient (IN) | payer MEDICAID ==
[~2016-09-30] VITALS: Ht 157.5 cm; Wt 75.3 kg
[~2016-09-30 11:19] MED LIST changes: +ALBU2.5V38 NEB; -AMIN30LI2 GT; +AMIN30LI25 GT; +CLON-418 GT; -CLON-418 PO; -DARB150D IV; +HYDR-4076 GT; +IPRA0.2S49 NEB; +LACT10SO7 GT; +LACT1CAP72 GT; +LINE600T GT; +LISI-603 GT; -METO5SOL20 GT; +MUPI22OI7; +NUTR100037 GT; +POLY15DR40 EACHEYE; +SODI473S8 TOP
--- NOTE | 2016-09-30 11:50 | NUR ---
Admitted 46-year-old female pt from [facility] with diagnoses of chronic respiratory failure, pneumonia, ESRD, ischemic encephalopathy, left AKA. Pt was awake upon admission, nonverbal and no eye contact. Pt on mechanical ventilator HT70 with setting of AC 12 VT 500 FiO2 40% Peep +5. Pt has trach tube Shiley # 8. GT feeding Novasource renal at 45mL/hr started with HOB elevated for aspiration precautions. On contact isolation for MRSA nares and MRSA wound. Made pt clean and comfortable in bed. Call light within reach. Verified orders with Dr. Olivo. She said to schedule hemodialysis for pt for tomorrow since pt was not dialyzed today. Notified pt's boyfriend John that pt is now in Subacute.
[2016-09-30] MEDS ORDERED: HYDROGEN PEROXIDE 480 ML BOTTLE TP PRN (14:00)
[2016-09-30] MEDS ORDERED: DEXTROSE 50%-WATER 50 ML DISP.SYRIN IV PRN (14:00)
[2016-09-30] MEDS ORDERED: POLYVINYL ALCOHOL 15 ML BOTTLE EACHEYE PRN (14:30)
[2016-09-30] MEDS ORDERED: MEROPENEM 500 MG in IV NS 0.9% 50 ML IV SCH (14:30)
--- NOTE | 2016-09-30 14:30 | NUR ---
Arranged hemodialysis schedule at [facility] with Lebron. Pt scheduled for hemodialysis tomorrow at 1745 for 2 1/2 hours, then q , , Sat at 1000. Arranged transportation with [facility] courtesy of
--- NOTE | 2016-09-30 15:36 | NUR ---
Patient's psychosocial assessment completed by LUPILLO on 09/30/2016. Attempted to call boyfriend John Woodall ([phone]) to set up an appt for intake forms however he did not answer and no voicemail was set up. LUPILLO will attempt again at a later time.
[2016-09-30] MEDS: MEROPENEM 500 MG in IV NS 0.9% 50 ML IV SCH (17:00)
[2016-09-30] MEDS: LACTOBACILLUS RHAMNOSUS GG 1 EACH CAP.SPRINK GT SCH (18:38)
[2016-09-30] MEDS: PROSOURCE / PROSTAT (PYXIS) 30 ML UDC GT SCH (18:39)
[2016-09-30] MEDS: hydrALAZINE HCL 25 MG TABLET PO SCH (18:40)
[2016-09-30] MEDS: BLOOD SUGAR DIAGNOSTIC 1 EACH STRIP IN SCH ×2 (18:41→23:43)
[2016-09-30] MEDS: INSULIN REGULAR, HUMAN 100 UNIT/ML 3 ML VIAL SQ PRN ×2 (18:42→23:46)
[2016-09-30] MEDS ORDERED: DAKINS HALF STRENGTH (0.25%) 480 ML BOTTLE TOP PRN (19:00)
[2016-09-30] MEDS ORDERED: HYDROGEL DRESSING 90 GM TUBE TP PRN (19:00)
[2016-09-30] MEDS: IPRATROPIUM NEB FS 0.5 MG/2.5 ML AMPUL.NEB NEB SCH (19:58)
[2016-09-30 20:32] VITALS: BP 138/77
[2016-09-30] MEDS ORDERED: LINEZOLID 600 MG TABLET GT SCH (21:00)
[2016-09-30] MEDS: HEPARIN SODIUM, PORCINE 5000 UNITS/1 ML VIAL SQ SCH (21:08)
[2016-09-30] MEDS: HYDROGEN PEROXIDE 480 ML BOTTLE TP SCH (21:09)
[2016-09-30] MEDS: INSULIN DETEMIR 100 UNIT/ML CARTRIDGE SQ SCH (21:09)
[2016-09-30] MEDS: HYDROGEL DRESSING 90 GM TUBE TP SCH (21:09)
[2016-09-30] MEDS: DAKINS HALF STRENGTH (0.25%) 480 ML BOTTLE TOP SCH (21:09)
[2016-09-30] MEDS: Z GUARD REMEDY 4 OZ OINT TP SCH ×2 (21:09→21:10)
[2016-09-30] MEDS: VITAMINS A AND D 56.7 GM TUBE TP SCH (21:10)
[2016-09-30] MEDS: ZINC OXIDE 30 GM TUBE TP SCH ×7 (21:10)
[2016-09-30] MEDS: MUPIROCIN OINT 2% 22 GM TUBE SCH (21:13)
[2016-09-30] MEDS: METOPROLOL TARTRATE 50 MG TABLET GT SCH (21:21)
[2016-10-01] MEDS ORDERED: RENAL NOVASOURCE 1,000 ML BOTTLE GT PRN (01:00)
[2016-10-01] MEDS: IPRATROPIUM NEB FS 0.5 MG/2.5 ML AMPUL.NEB NEB SCH ×3 (02:20→20:13)
[2016-10-01] MEDS: PANTOPRAZOLE 40 MG/PACK PACK GT SCH (05:19)
[2016-10-01] MEDS: BLOOD SUGAR DIAGNOSTIC 1 EACH STRIP IN SCH ×4 (05:19→23:26)
[2016-10-01] MEDS: INSULIN REGULAR, HUMAN 100 UNIT/ML 3 ML VIAL SQ PRN ×3 (05:21→23:26)
[2016-10-01 07:58] VITALS: BP 125/45
[2016-10-01] MEDS: CALCITRIOL ORAL SOLUTION 1 MCG/ML GT SCH (09:00)
[2016-10-01] MEDS: LISINOPRIL (20MG) 20 MG TABLET PO SCH (09:00)
[2016-10-01] MEDS: LACTOBACILLUS RHAMNOSUS GG 1 EACH CAP.SPRINK GT SCH ×2 (09:00→16:51)
[2016-10-01] MEDS: hydrALAZINE HCL 25 MG TABLET PO SCH ×2 (09:00→16:51)
[2016-10-01] MEDS: ASCORBIC ACID 500 MG TABLET GT SCH (09:01)
[2016-10-01] MEDS: HYDROCODONE/APAP 5/325MG 1 EACH TABLET GT SCH (09:01)
[2016-10-01] MEDS: VIT B CMPLX 3/FA/VIT C/BIOTIN 1 TAB TABLET GT SCH (09:01)
[2016-10-01] MEDS: METOPROLOL TARTRATE 50 MG TABLET GT SCH ×2 (09:01→21:23)
[2016-10-01] MEDS: MUPIROCIN OINT 2% 22 GM TUBE SCH ×2 (09:01→21:18)
[2016-10-01] MEDS: PROSOURCE / PROSTAT (PYXIS) 30 ML UDC GT SCH ×3 (09:01→16:51)
[2016-10-01] MEDS: HEPARIN SODIUM, PORCINE 5000 UNITS/1 ML VIAL SQ SCH ×2 (09:03→21:19)
[2016-10-01] MEDS: INSULIN DETEMIR 100 UNIT/ML CARTRIDGE SQ SCH (09:03)
[2016-10-01] MEDS: HYDROGEL DRESSING 90 GM TUBE TP SCH ×2 (09:06→21:21)
[2016-10-01] MEDS: DAKINS HALF STRENGTH (0.25%) 480 ML BOTTLE TOP SCH ×2 (09:06→21:20)
[2016-10-01] MEDS: ZINC OXIDE 30 GM TUBE TP SCH ×14 (09:07→21:21)
[2016-10-01] MEDS: HYDROGEN PEROXIDE 480 ML BOTTLE TP SCH ×2 (09:07→21:21)
[2016-10-01] MEDS: Z GUARD REMEDY 4 OZ OINT TP SCH ×4 (09:07→21:21)
[2016-10-01] MEDS: VITAMINS A AND D 56.7 GM TUBE TP SCH ×2 (09:07→21:21)
--- NOTE | 2016-10-01 09:23 | NUR ---
WOUND CARE CONSULT: PT SEEN FOR SKIN ASSESSMENT AND NOTED TO HAVE MULTIPLE SKIN ISSUES INCLUDING STAGE IV ULCER TO SACRUM, EXCORIATED AREAS TO BUTTOCKS AND SKIN FOLDS, RT GREAT TOE DRY ESCHAR, ALL PRESENT ON ADMISSION. PT HAS TIGHT SHINY SKIN TO RT LOWER LEG AND FOOT. STAGE IV SACRAL ULCER MEASURES 4CM X 2CM X 2CM WITH RED COLOR, SLIGHT ODOR AND SOME EXCORIATION TO BUTTOCKS. ABDOMINAL SKIN FOLDS AND BREAST FOLDS HAVE SOME REDNESS AND MOISTURE RELATED IRRITATION/EXCORIATION. RT GREAT TOE ESCHAR MEASURES O.7CM X 0.7CM X ESCHAR AND IS PARKINSON/BROWN IN COLOR, NO DRAINAGE, NO ODOR. CONCUR WITH ALL CURRENT ORDERS FOR WOUND CARE AND SKIN PROTECTION. DISCUSSED SKIN PROTECTION AND WOUND RECOMMENDATIONS WITH NURSING STAFF. PT ON FIRST STEP MATTRESS. WILL SEE PRN. FUENTES IN AGREEMENT WITH PLAN OF CARE.
--- NOTE | 2016-10-01 09:30 | NUR ---
Spoke with Lebron from [facility] and said that they will be able to dialyze patient today at 1100. Dialysis will arrange transportation with [facility].
--- NOTE | 2016-10-01 12:52 | NUR ---
Spoke with Ajith from [facility] and said that they need to send a PA for Zyvox. According to Ajith, they will need clinical information to support the use of Zyvox. Informed Landy from [facility] pharmacy [facility] request and therefore [facility] to provide medication pending PA. According to [facility] pharmacist, they will provide the medication but need to replace once it is approved. Endorsed.
[2016-10-01] MEDS: LINEZOLID 600 MG TABLET GT SCH ×2 (13:34→21:18)
--- NOTE | 2016-10-01 14:30 | NUR ---
Fax was sent to Ajith from [facility] regarding resident's Zyvox medication which he requested. Confirmation of fax was received.
--- NOTE | 2016-10-01 15:00 | NUR ---
Resident returned back from dialysis in stable condition. No s/s of distress and discomfort.
[2016-10-01] MEDS: MEROPENEM 500 MG in IV NS 0.9% 50 ML IV SCH (16:21)
[2016-10-01] MEDS: INSULIN GLARGINE, 100 UNIT/ML CARTRIDGE SQ SCH (21:20)
[2016-10-02 00:30] VITALS: BP 151/76
[2016-10-02] MEDS: IPRATROPIUM NEB FS 0.5 MG/2.5 ML AMPUL.NEB NEB SCH ×4 (02:13→20:04)
[2016-10-02] MEDS: PANTOPRAZOLE 40 MG/PACK PACK GT SCH (05:07)
[2016-10-02] MEDS: BLOOD SUGAR DIAGNOSTIC 1 EACH STRIP IN SCH ×4 (05:07→23:12)
[2016-10-02] MEDS: CLONIDINE HCL 0.2 MG TABLET GT PRN (05:07)
[2016-10-02] MEDS: INSULIN REGULAR, HUMAN 100 UNIT/ML 3 ML VIAL SQ PRN ×3 (05:08→23:13)
[2016-10-02 06:07] VITALS: BP 165/80
[2016-10-02 07:38] VITALS: BP 144/72
[2016-10-02] MEDS: CALCITRIOL ORAL SOLUTION 1 MCG/ML GT SCH (08:55)
[2016-10-02] MEDS: PROSOURCE / PROSTAT (PYXIS) 30 ML UDC GT SCH ×3 (08:55→17:45)
[2016-10-02] MEDS: LINEZOLID 600 MG TABLET GT SCH ×2 (08:55→21:10)
[2016-10-02] MEDS: ASCORBIC ACID 500 MG TABLET GT SCH (08:55)
[2016-10-02] MEDS: LACTOBACILLUS RHAMNOSUS GG 1 EACH CAP.SPRINK GT SCH ×2 (08:55→17:45)
[2016-10-02] MEDS: VIT B CMPLX 3/FA/VIT C/BIOTIN 1 TAB TABLET GT SCH (08:55)
[2016-10-02] MEDS: hydrALAZINE HCL 25 MG TABLET PO SCH ×2 (08:56→17:00)
[2016-10-02] MEDS: HEPARIN SODIUM, PORCINE 5000 UNITS/1 ML VIAL SQ SCH ×2 (08:56→21:10)
[2016-10-02] MEDS: INSULIN GLARGINE, 100 UNIT/ML CARTRIDGE SQ SCH ×2 (08:57→21:10)
[2016-10-02 14:00] VITALS: BP 123/69
[2016-10-02] MEDS: HYDROCODONE/APAP 5/325MG 1 EACH TABLET GT SCH (14:15)
[2016-10-02] MEDS: HYDROGEL DRESSING 90 GM TUBE TP SCH ×2 (15:15→21:11)
[2016-10-02] MEDS: ZINC OXIDE 30 GM TUBE TP SCH ×14 (15:15→21:12)
[2016-10-02] MEDS: MUPIROCIN OINT 2% 22 GM TUBE SCH ×2 (15:15→21:10)
[2016-10-02] MEDS: VITAMINS A AND D 56.7 GM TUBE TP SCH ×2 (15:15→21:11)
[2016-10-02] MEDS: HYDROGEN PEROXIDE 480 ML BOTTLE TP SCH ×2 (15:15→21:11)
[2016-10-02] MEDS: DAKINS HALF STRENGTH (0.25%) 480 ML BOTTLE TOP SCH ×2 (15:15→21:11)
[2016-10-02] MEDS: Z GUARD REMEDY 4 OZ OINT TP SCH ×4 (15:15→21:11)
[2016-10-02] MEDS: MEROPENEM 500 MG in IV NS 0.9% 50 ML IV SCH (16:35)
[2016-10-02 18:00] VITALS: BP 117/67
[2016-10-02 19:50] VITALS: BP 118/65
[2016-10-02] MEDS: METOPROLOL TARTRATE 50 MG TABLET GT SCH (21:12)
[2016-10-03 00:03] VITALS: BP 140/85
[2016-10-03] MEDS: IPRATROPIUM NEB FS 0.5 MG/2.5 ML AMPUL.NEB NEB SCH ×4 (01:00→20:14)
[2016-10-03] MEDS: PANTOPRAZOLE 40 MG/PACK PACK GT SCH (05:15)
[2016-10-03] MEDS: BLOOD SUGAR DIAGNOSTIC 1 EACH STRIP IN SCH ×4 (05:15→23:40)
[2016-10-03] MEDS: INSULIN REGULAR, HUMAN 100 UNIT/ML 3 ML VIAL SQ PRN ×4 (05:16→23:41)
[2016-10-03 06:03] VITALS: BP 145/80
[2016-10-03 07:44] VITALS: BP 156/78
[2016-10-03] MEDS: LACTOBACILLUS RHAMNOSUS GG 1 EACH CAP.SPRINK GT SCH ×2 (09:00→17:57)
[2016-10-03] MEDS: CALCITRIOL ORAL SOLUTION 1 MCG/ML GT SCH (09:00)
[2016-10-03] MEDS: MUPIROCIN OINT 2% 22 GM TUBE SCH ×2 (09:00→21:31)
[2016-10-03] MEDS: INSULIN GLARGINE, 100 UNIT/ML CARTRIDGE SQ SCH ×2 (09:00→21:32)
[2016-10-03] MEDS: METOPROLOL TARTRATE 50 MG TABLET GT SCH ×2 (09:00→21:34)
[2016-10-03] MEDS: ASCORBIC ACID 500 MG TABLET GT SCH (09:00)
[2016-10-03] MEDS: hydrALAZINE HCL 25 MG TABLET PO SCH (09:00)
[2016-10-03] MEDS: LINEZOLID 600 MG TABLET GT SCH (09:00)
[2016-10-03] MEDS: LISINOPRIL (20MG) 20 MG TABLET PO SCH (09:00)
[2016-10-03] MEDS: PROSOURCE / PROSTAT (PYXIS) 30 ML UDC GT SCH ×3 (09:00→17:57)
[2016-10-03] MEDS: VIT B CMPLX 3/FA/VIT C/BIOTIN 1 TAB TABLET GT SCH (09:00)
[2016-10-03] MEDS: HEPARIN SODIUM, PORCINE 5000 UNITS/1 ML VIAL SQ SCH ×2 (09:00→21:32)
--- NOTE | 2016-10-03 10:15 | NUR ---
Sw informed that resident's boyfriend is visiting today. SW had obtained verbal signatures for intakes forms together with charge nurse. Resident informed boyfriend that she would be leaving the intake forms with the charge nurse in the endorsement folder as well as the sub-acute satisfaction survey. To please complete and return to the charge nurse. Appreciated the call and stated that he does not know what time he is coming.
[2016-10-03] MEDS: HYDROCODONE/APAP 5/325MG 1 EACH TABLET GT SCH (10:18)
[2016-10-03] MEDS: DAKINS HALF STRENGTH (0.25%) 480 ML BOTTLE TOP SCH ×2 (10:45→21:32)
[2016-10-03] MEDS: VITAMINS A AND D 56.7 GM TUBE TP SCH ×2 (10:45→21:33)
[2016-10-03] MEDS: HYDROGEN PEROXIDE 480 ML BOTTLE TP SCH ×2 (10:45→21:32)
[2016-10-03] MEDS: HYDROGEL DRESSING 90 GM TUBE TP SCH ×2 (10:45→21:32)
[2016-10-03] MEDS: Z GUARD REMEDY 4 OZ OINT TP SCH ×4 (10:45→21:33)
[2016-10-03] MEDS: ZINC OXIDE 30 GM TUBE TP SCH ×14 (10:45→21:34)
[2016-10-03 12:00] VITALS: BP 159/75
--- NOTE | 2016-10-03 13:42 | NUR ---
Recieved pt on appropriate settings and alarms. Pt is obtunded, and awake. Extra trache, and ambubag by bedside. Vent is plugged into red outlet. Pt was suctioned multiple times. Pt is stable with no signs of distress. Simeon emerson COMPOSITION FLOOR SETTER Addendum: 10/03/16 at 1343 by SHANI EMERSON RT Amended: Links added.
[2016-10-03] MEDS: MEROPENEM 500 MG in IV NS 0.9% 50 ML IV SCH (16:36)
[2016-10-03] MEDS: hydrALAZINE HCL 25 MG TABLET GT SCH (17:56)
[2016-10-03] MEDS: CLONIDINE HCL 0.2 MG TABLET GT PRN ×2 (17:59→23:40)
[2016-10-03 20:10] VITALS: BP 156/78
[2016-10-03] MEDS: ALBUTEROL FS 2.5 MG/3 ML VIAL.NEB NEB SCH (20:14)
[2016-10-03] MEDS: LACTULOSE 10 G/15 ML UDC (PYXIS) GT PRN (23:40)
[2016-10-03] MEDS: RENAL NOVASOURCE 1,000 ML BOTTLE GT PRN (23:40)
[2016-10-04 00:30] VITALS: BP 164/58
[2016-10-04] MEDS: IPRATROPIUM NEB FS 0.5 MG/2.5 ML AMPUL.NEB NEB SCH ×4 (00:52→19:31)
[2016-10-04] MEDS: ALBUTEROL FS 2.5 MG/3 ML VIAL.NEB NEB SCH ×4 (00:52→19:31)
[2016-10-04] MEDS: BLOOD SUGAR DIAGNOSTIC 1 EACH STRIP IN SCH ×4 (05:28→23:52)
[2016-10-04] MEDS: PANTOPRAZOLE 40 MG/PACK PACK GT SCH (05:28)
[2016-10-04] MEDS: INSULIN REGULAR, HUMAN 100 UNIT/ML 3 ML VIAL SQ PRN ×2 (05:29→23:53)
[2016-10-04 06:04] VITALS: BP 148/66
[2016-10-04 07:38] VITALS: BP 141/74
[2016-10-04] MEDS: hydrALAZINE HCL 25 MG TABLET GT SCH ×2 (08:40→17:00)
[2016-10-04] MEDS: CALCITRIOL ORAL SOLUTION 1 MCG/ML GT SCH (08:40)
[2016-10-04] MEDS: LACTOBACILLUS RHAMNOSUS GG 1 EACH CAP.SPRINK GT SCH ×2 (08:40→17:00)
[2016-10-04] MEDS: VIT B CMPLX 3/FA/VIT C/BIOTIN 1 TAB TABLET GT SCH (08:40)
[2016-10-04] MEDS: ASCORBIC ACID 500 MG TABLET GT SCH (08:41)
[2016-10-04] MEDS: HYDROCODONE/APAP 5/325MG 1 EACH TABLET GT SCH (08:41)
[2016-10-04] MEDS: MUPIROCIN OINT 2% 22 GM TUBE SCH ×2 (08:41→21:15)
[2016-10-04] MEDS: HEPARIN SODIUM, PORCINE 5000 UNITS/1 ML VIAL SQ SCH ×2 (08:41→21:15)
[2016-10-04] MEDS: PROSOURCE / PROSTAT (PYXIS) 30 ML UDC GT SCH ×3 (08:41→17:00)
[2016-10-04] MEDS: INSULIN GLARGINE, 100 UNIT/ML CARTRIDGE SQ SCH ×2 (08:42→21:15)
[2016-10-04] MEDS: HYDROGEL DRESSING 90 GM TUBE TP SCH ×2 (09:09→21:16)
[2016-10-04] MEDS: HYDROGEN PEROXIDE 480 ML BOTTLE TP SCH ×2 (09:09→21:16)
[2016-10-04] MEDS: DAKINS HALF STRENGTH (0.25%) 480 ML BOTTLE TOP SCH ×2 (09:09→21:15)
[2016-10-04] MEDS: Z GUARD REMEDY 4 OZ OINT TP SCH ×4 (09:09→21:16)
[2016-10-04] MEDS: VITAMINS A AND D 56.7 GM TUBE TP SCH ×2 (09:10→21:16)
[2016-10-04] MEDS: ZINC OXIDE 30 GM TUBE TP SCH ×14 (09:10→21:16)
[2016-10-04 15:40] VITALS: BP 126/63
[2016-10-04 18:14] VITALS: BP 151/90
[2016-10-04 19:38] VITALS: BP 99/57
[2016-10-04] MEDS: METOPROLOL TARTRATE 50 MG TABLET GT SCH (21:16)
[2016-10-05 00:08] VITALS: BP 129/76
[2016-10-05] MEDS: ALBUTEROL FS 2.5 MG/3 ML VIAL.NEB NEB SCH ×4 (02:15→19:21)
[2016-10-05] MEDS: IPRATROPIUM NEB FS 0.5 MG/2.5 ML AMPUL.NEB NEB SCH ×4 (02:15→19:21)
--- NOTE | 2016-10-05 03:54 | NUR ---
PATIENT RECEIVED TRACHED ON MECHANICAL VENT. TRACH MIDLINE AND BREATH SOUNDS EQUAL BILATERAL. TREATMENT GIVEN ORDERED AND TOLERATED WELL. NO ADVERSE REACTIONS NOTED. VENTILATOR PLUGGED INTO RED OUTLET AND ALARMS SET AND FUNCTIONING. AMBU BAG AT THE BED SITE.
[2016-10-05] MEDS: PANTOPRAZOLE 40 MG/PACK PACK GT SCH (05:18)
[2016-10-05] MEDS: BLOOD SUGAR DIAGNOSTIC 1 EACH STRIP IN SCH ×3 (05:18→17:36)
[2016-10-05] MEDS: RENAL NOVASOURCE 1,000 ML BOTTLE GT PRN (05:18)
[2016-10-05] MEDS: INSULIN REGULAR, HUMAN 100 UNIT/ML 3 ML VIAL SQ PRN ×3 (05:19→17:38)
[2016-10-05 06:04] VITALS: BP 138/78
[2016-10-05 08:00] VITALS: BP 145/76
[2016-10-05] MEDS: VIT B CMPLX 3/FA/VIT C/BIOTIN 1 TAB TABLET GT SCH (09:50)
[2016-10-05] MEDS: LACTOBACILLUS RHAMNOSUS GG 1 EACH CAP.SPRINK GT SCH ×2 (09:50→17:35)
[2016-10-05] MEDS: METOPROLOL TARTRATE 50 MG TABLET GT SCH ×2 (09:50→22:33)
[2016-10-05] MEDS: hydrALAZINE HCL 25 MG TABLET GT SCH ×2 (09:50→17:34)
[2016-10-05] MEDS: CALCITRIOL ORAL SOLUTION 1 MCG/ML GT SCH (09:50)
[2016-10-05] MEDS: PROSOURCE / PROSTAT (PYXIS) 30 ML UDC GT SCH ×3 (09:51→17:36)
[2016-10-05] MEDS: HEPARIN SODIUM, PORCINE 5000 UNITS/1 ML VIAL SQ SCH ×2 (09:51→21:31)
[2016-10-05] MEDS: LISINOPRIL (20MG) 20 MG TABLET GT SCH (09:51)
[2016-10-05] MEDS: MUPIROCIN OINT 2% 22 GM TUBE SCH ×2 (09:51→21:31)
[2016-10-05] MEDS: ASCORBIC ACID 500 MG TABLET GT SCH (09:51)
[2016-10-05] MEDS: HYDROCODONE/APAP 5/325MG 1 EACH TABLET GT SCH (09:51)
[2016-10-05] MEDS: HYDROGEN PEROXIDE 480 ML BOTTLE TP SCH ×2 (09:52→21:32)
[2016-10-05] MEDS: Z GUARD REMEDY 4 OZ OINT TP SCH ×4 (09:52→21:33)
[2016-10-05] MEDS: INSULIN GLARGINE, 100 UNIT/ML CARTRIDGE SQ SCH ×2 (09:52→21:32)
[2016-10-05] MEDS: DAKINS HALF STRENGTH (0.25%) 480 ML BOTTLE TOP SCH ×2 (09:52→21:32)
[2016-10-05] MEDS: HYDROGEL DRESSING 90 GM TUBE TP SCH ×2 (09:52→21:32)
[2016-10-05] MEDS: VITAMINS A AND D 56.7 GM TUBE TP SCH ×2 (09:53→21:33)
[2016-10-05] MEDS: ZINC OXIDE 30 GM TUBE TP SCH ×14 (09:53→21:33)
--- NOTE | 2016-10-05 10:18 | NUR ---
RECEIVED PATIENT ON APPROPRIATE SETTINGS. PT IS AWAKE BUT DOES NOT RESPOND TO COMMENDS. NO DISTRESS NOTED. CUFF HAS BEEN CHECKED AND FILLED WITH AIR. EXTRA TRACHE AND AMBUBAG ARE BY BEDSIDE. VENT IS PLUGGED INTO RED OUTLET. LUCA MCFADDENP Addendum: 10/05/16 at 1018 by SHANI LYONS RT Amended: Links added.
[2016-10-05 13:46] VITALS: BP 125/75
[2016-10-05 18:29] VITALS: BP 135/70
[2016-10-05 19:40] VITALS: BP 152/67
[2016-10-06] VITALS: BP 158/75
[2016-10-06] MEDS: BLOOD SUGAR DIAGNOSTIC 1 EACH STRIP IN SCH ×5 (00:42→23:19)
[2016-10-06] MEDS: INSULIN REGULAR, HUMAN 100 UNIT/ML 3 ML VIAL SQ PRN ×6 (00:44→23:20)
[2016-10-06] MEDS: ALBUTEROL FS 2.5 MG/3 ML VIAL.NEB NEB SCH ×4 (01:28→19:40)
[2016-10-06] MEDS: IPRATROPIUM NEB FS 0.5 MG/2.5 ML AMPUL.NEB NEB SCH ×4 (01:28→19:40)
[2016-10-06] MEDS: PANTOPRAZOLE 40 MG/PACK PACK GT SCH (05:42)
[2016-10-06] MEDS: CLONIDINE HCL 0.2 MG TABLET GT PRN (05:42)
[2016-10-06 06:00] VITALS: BP 128/51
[2016-10-06 08:02] VITALS: BP 164/82
[2016-10-06] MEDS: LISINOPRIL (20MG) 20 MG TABLET GT SCH (09:00)
[2016-10-06] MEDS: hydrALAZINE HCL 25 MG TABLET GT SCH ×2 (09:00→18:00)
[2016-10-06] MEDS: PROSOURCE / PROSTAT (PYXIS) 30 ML UDC GT SCH ×3 (09:00→17:00)
[2016-10-06] MEDS: CALCITRIOL ORAL SOLUTION 1 MCG/ML GT SCH (09:00)
[2016-10-06] MEDS: VIT B CMPLX 3/FA/VIT C/BIOTIN 1 TAB TABLET GT SCH (09:00)
[2016-10-06] MEDS: INSULIN GLARGINE, 100 UNIT/ML CARTRIDGE SQ SCH ×2 (09:00→21:07)
[2016-10-06] MEDS: ASCORBIC ACID 500 MG TABLET GT SCH (09:00)
[2016-10-06] MEDS: LACTOBACILLUS RHAMNOSUS GG 1 EACH CAP.SPRINK GT SCH ×2 (09:00→17:00)
[2016-10-06] MEDS: METOPROLOL TARTRATE 50 MG TABLET GT SCH ×2 (09:00→21:07)
[2016-10-06] MEDS: MUPIROCIN OINT 2% 22 GM TUBE SCH ×2 (09:00→21:06)
[2016-10-06] MEDS: HEPARIN SODIUM, PORCINE 5000 UNITS/1 ML VIAL SQ SCH ×2 (09:00→21:06)
[2016-10-06 12:00] VITALS: BP 136/62
[2016-10-06] MEDS: HYDROCODONE/APAP 5/325MG 1 EACH TABLET GT SCH ×2 (13:15→21:08)
[2016-10-06] MEDS: RENAL NOVASOURCE 1,000 ML BOTTLE GT PRN (13:16)
[2016-10-06] MEDS: HYDROGEL DRESSING 90 GM TUBE TP SCH ×2 (14:15→21:39)
[2016-10-06] MEDS: HYDROGEN PEROXIDE 480 ML BOTTLE TP SCH ×2 (14:15→21:39)
[2016-10-06] MEDS: ZINC OXIDE 30 GM TUBE TP SCH ×14 (14:15→21:40)
[2016-10-06] MEDS: VITAMINS A AND D 56.7 GM TUBE TP SCH ×2 (14:15→21:39)
[2016-10-06] MEDS: Z GUARD REMEDY 4 OZ OINT TP SCH ×4 (14:15→21:39)
[2016-10-06] MEDS: DAKINS HALF STRENGTH (0.25%) 480 ML BOTTLE TOP SCH ×2 (14:15→21:39)
[2016-10-06 18:00] VITALS: BP 156/73
[2016-10-06 19:37] VITALS: BP 157/75
[2016-10-07 00:03] VITALS: BP 144/72
[2016-10-07] MEDS: IPRATROPIUM NEB FS 0.5 MG/2.5 ML AMPUL.NEB NEB SCH ×4 (02:17→19:28)
[2016-10-07] MEDS: ALBUTEROL FS 2.5 MG/3 ML VIAL.NEB NEB SCH ×4 (02:17→19:28)
[2016-10-07] MEDS: PANTOPRAZOLE 40 MG/PACK PACK GT SCH (05:50)
[2016-10-07] MEDS: BLOOD SUGAR DIAGNOSTIC 1 EACH STRIP IN SCH ×4 (05:50→23:21)
[2016-10-07] MEDS: INSULIN REGULAR, HUMAN 100 UNIT/ML 3 ML VIAL SQ PRN ×3 (05:51→23:23)
[2016-10-07 06:07] VITALS: BP 130/70
[2016-10-07 07:44] VITALS: BP 150/87
--- NOTE | 2016-10-07 08:28 | NUR ---
Boyfriend John Woodall came on Thursday10/04/2016 to sign admission paperwork (which includes the Conditions of Admission, CDPH agreement, Patient's Rights Acknowledgement, Preferred Intensity of Care (patient is Full Code), and Voluntary Prior Express Consent Forms. Previously provided verbal consent on 10/01/2016.
[2016-10-07] MEDS: VIT B CMPLX 3/FA/VIT C/BIOTIN 1 TAB TABLET GT SCH (09:00)
[2016-10-07] MEDS: LACTOBACILLUS RHAMNOSUS GG 1 EACH CAP.SPRINK GT SCH ×2 (09:00→16:47)
[2016-10-07] MEDS: hydrALAZINE HCL 25 MG TABLET GT SCH ×2 (09:00→16:45)
[2016-10-07] MEDS: CALCITRIOL ORAL SOLUTION 1 MCG/ML GT SCH (09:00)
[2016-10-07] MEDS: PROSOURCE / PROSTAT (PYXIS) 30 ML UDC GT SCH ×3 (09:00→16:47)
[2016-10-07] MEDS: ASCORBIC ACID 500 MG TABLET GT SCH (09:01)
[2016-10-07] MEDS: MUPIROCIN OINT 2% 22 GM TUBE SCH ×2 (09:01→21:18)
[2016-10-07] MEDS: HYDROGEL DRESSING 90 GM TUBE TP SCH ×2 (09:02→21:52)
[2016-10-07] MEDS: INSULIN GLARGINE, 100 UNIT/ML CARTRIDGE SQ SCH ×2 (09:02→21:19)
[2016-10-07] MEDS: HEPARIN SODIUM, PORCINE 5000 UNITS/1 ML VIAL SQ SCH ×2 (09:02→21:18)
[2016-10-07] MEDS: DAKINS HALF STRENGTH (0.25%) 480 ML BOTTLE TOP SCH ×2 (09:02→21:52)
[2016-10-07] MEDS: Z GUARD REMEDY 4 OZ OINT TP SCH ×4 (09:03→21:52)
[2016-10-07] MEDS: HYDROGEN PEROXIDE 480 ML BOTTLE TP SCH ×2 (09:03→21:52)
[2016-10-07] MEDS: ZINC OXIDE 30 GM TUBE TP SCH ×14 (09:03→21:53)
[2016-10-07] MEDS: VITAMINS A AND D 56.7 GM TUBE TP SCH ×2 (09:03→21:52)
--- NOTE | 2016-10-07 10:02 | NUR ---
Per resident's boyfriend, he would like to start looking for facilities that are closer to him (in [place] area). SW spoke to nursing program director Mariana Ferrell who stated that it was okay for SW to begin searching. Resident is on isolation for MRSA of the nares, has straight medi-zaire, is on a vent, and receives dialysis 3x/week. BF informed of the challenges and stated that it was okay for the social work nurse to start searching. Charge nurse notified and charge nurse also stated that she relayed the message to Dr. Morejon who is okay with the plan.
--- NOTE | 2016-10-07 11:44 | NUR ---
Patient has straight medi-zaire with transportation not being covered. SW will speak more to the resident's boyfriend to see if he is willing to cover the cost of transportation if resident is accepted to another facility. He is currently at work and SW will try to reach him when he is available. LUPILLO will also suggest that he go to the nearest social security office to apply for medicare part B as this can help cover transportation for dialysis etc.
[2016-10-07] MEDS: HYDROCODONE/APAP 5/325MG 1 EACH TABLET GT SCH ×2 (14:00→21:18)
[2016-10-07 18:00] VITALS: BP 125/72
[2016-10-07 19:42] VITALS: BP 135/74
[2016-10-07] MEDS: METOPROLOL TARTRATE 50 MG TABLET GT SCH (21:19)
[2016-10-08 00:38] VITALS: BP 140/70
[2016-10-08] MEDS: ALBUTEROL FS 2.5 MG/3 ML VIAL.NEB NEB SCH ×4 (01:16→19:58)
[2016-10-08] MEDS: IPRATROPIUM NEB FS 0.5 MG/2.5 ML AMPUL.NEB NEB SCH ×4 (01:16→19:58)
[2016-10-08] MEDS: RENAL NOVASOURCE 1,000 ML BOTTLE GT PRN (01:23)
[2016-10-08] MEDS: PANTOPRAZOLE 40 MG/PACK PACK GT SCH (05:56)
[2016-10-08] MEDS: BLOOD SUGAR DIAGNOSTIC 1 EACH STRIP IN SCH ×4 (05:56→23:18)
[2016-10-08] MEDS: INSULIN REGULAR, HUMAN 100 UNIT/ML 3 ML VIAL SQ PRN ×4 (05:57→23:19)
[2016-10-08 06:02] VITALS: BP 130/66
[2016-10-08 07:47] VITALS: BP 152/82
--- NOTE | 2016-10-08 07:50 | NUR ---
Spoke to boyfriend John Woodall and informed him of the challenges of transferring resident with straight medi-zaire. Informed him that resident should be eligible for medicare part B and that this can cover some of the transportation costs. Informed him that with straight medi-zaire, transportation is not covered for transfer and dialysis visits. He stated that he will try to go to the social security office to apply for her. sample shoe inspector and reworker to call him at the end of the next week to follow up.
[2016-10-08] MEDS: hydrALAZINE HCL 25 MG TABLET GT SCH ×2 (08:25→17:10)
[2016-10-08] MEDS: VIT B CMPLX 3/FA/VIT C/BIOTIN 1 TAB TABLET GT SCH (08:29)
[2016-10-08] MEDS: METOPROLOL TARTRATE 50 MG TABLET GT SCH ×2 (08:29→21:18)
[2016-10-08] MEDS: LACTOBACILLUS RHAMNOSUS GG 1 EACH CAP.SPRINK GT SCH ×2 (08:29→17:10)
[2016-10-08] MEDS: CALCITRIOL ORAL SOLUTION 1 MCG/ML GT SCH (08:29)
[2016-10-08] MEDS: ASCORBIC ACID 500 MG TABLET GT SCH (08:30)
[2016-10-08] MEDS: LISINOPRIL (20MG) 20 MG TABLET GT SCH (08:30)
[2016-10-08] MEDS: HYDROCODONE/APAP 5/325MG 1 EACH TABLET GT SCH ×2 (08:30→21:17)
[2016-10-08] MEDS: PROSOURCE / PROSTAT (PYXIS) 30 ML UDC GT SCH ×3 (08:30→17:10)
[2016-10-08] MEDS: MUPIROCIN OINT 2% 22 GM TUBE SCH ×2 (08:30→21:17)
[2016-10-08] MEDS: HEPARIN SODIUM, PORCINE 5000 UNITS/1 ML VIAL SQ SCH ×2 (08:32→21:17)
[2016-10-08] MEDS: INSULIN GLARGINE, 100 UNIT/ML CARTRIDGE SQ SCH ×2 (08:35→21:18)
[2016-10-08] MEDS: ZINC OXIDE 30 GM TUBE TP SCH ×14 (09:00→21:51)
[2016-10-08] MEDS: DAKINS HALF STRENGTH (0.25%) 480 ML BOTTLE TOP SCH ×2 (09:00→21:50)
[2016-10-08] MEDS: VITAMINS A AND D 56.7 GM TUBE TP SCH ×2 (09:00→21:50)
[2016-10-08] MEDS: HYDROGEN PEROXIDE 480 ML BOTTLE TP SCH ×2 (09:00→21:50)
[2016-10-08] MEDS: Z GUARD REMEDY 4 OZ OINT TP SCH ×4 (09:00→21:50)
[2016-10-08] MEDS: HYDROGEL DRESSING 90 GM TUBE TP SCH ×2 (09:00→21:50)
[2016-10-08 13:10] VITALS: BP 152/82
[2016-10-08 18:53] VITALS: BP 149/89
[2016-10-08 19:44] VITALS: BP 142/75
[2016-10-09 00:37] VITALS: BP 136/70
[2016-10-09] MEDS: ALBUTEROL FS 2.5 MG/3 ML VIAL.NEB NEB SCH ×4 (00:46→20:12)
[2016-10-09] MEDS: IPRATROPIUM NEB FS 0.5 MG/2.5 ML AMPUL.NEB NEB SCH ×4 (00:46→20:12)
[2016-10-09] MEDS: PANTOPRAZOLE 40 MG/PACK PACK GT SCH (05:16)
[2016-10-09] MEDS: BLOOD SUGAR DIAGNOSTIC 1 EACH STRIP IN SCH ×4 (06:14→23:41)
[2016-10-09] MEDS: INSULIN REGULAR, HUMAN 100 UNIT/ML 3 ML VIAL SQ PRN ×3 (06:15→23:41)
[2016-10-09 06:19] VITALS: BP 126/68
[2016-10-09 07:37] VITALS: BP 120/66
[2016-10-09] MEDS: hydrALAZINE HCL 25 MG TABLET GT SCH ×2 (08:55→17:45)
[2016-10-09] MEDS: MUPIROCIN OINT 2% 22 GM TUBE SCH ×2 (08:56→20:17)
[2016-10-09] MEDS: ASCORBIC ACID 500 MG TABLET GT SCH (08:56)
[2016-10-09] MEDS: LACTOBACILLUS RHAMNOSUS GG 1 EACH CAP.SPRINK GT SCH ×2 (08:56→17:45)
[2016-10-09] MEDS: PROSOURCE / PROSTAT (PYXIS) 30 ML UDC GT SCH ×3 (08:56→17:00)
[2016-10-09] MEDS: VIT B CMPLX 3/FA/VIT C/BIOTIN 1 TAB TABLET GT SCH (08:56)
[2016-10-09] MEDS: CALCITRIOL ORAL SOLUTION 1 MCG/ML GT SCH (08:56)
[2016-10-09] MEDS: HEPARIN SODIUM, PORCINE 5000 UNITS/1 ML VIAL SQ SCH ×2 (08:58→20:17)
[2016-10-09] MEDS: VITAMINS A AND D 56.7 GM TUBE TP SCH ×2 (09:00→20:18)
[2016-10-09] MEDS: Z GUARD REMEDY 4 OZ OINT TP SCH ×4 (09:00→20:18)
[2016-10-09] MEDS: HYDROGEN PEROXIDE 480 ML BOTTLE TP SCH ×2 (09:00→20:18)
[2016-10-09] MEDS: ZINC OXIDE 30 GM TUBE TP SCH ×14 (09:00→20:18)
[2016-10-09] MEDS: HYDROCODONE/APAP 5/325MG 1 EACH TABLET GT SCH ×2 (09:00→20:17)
[2016-10-09] MEDS: INSULIN GLARGINE, 100 UNIT/ML CARTRIDGE SQ SCH ×2 (09:17→21:05)
--- NOTE | 2016-10-09 10:14 | NUR ---
Social Service Section of [employer] (1st quarter) completed. Resident alert but non-communicative. Her boyfriend, John is involved in her care and visits at least 1x/week. He feels that she will be a terminal makeup operator resident of [facility] but wants to transfer to her to a closer facility in the [place] area. He understands difficulty with resident's insurance and will go apply for additional insurance at the [facility] office.
--- NOTE | 2016-10-09 11:37 | NUR ---
Sent referral for chief underwriter to see the resident for tri-monthly check. Informed by Elian from the wound center that Dr. Rojas is back on Thursday. Charge nurse informed.
[2016-10-09] MEDS: DAKINS HALF STRENGTH (0.25%) 480 ML BOTTLE TOP SCH ×2 (15:30→20:18)
[2016-10-09] MEDS: HYDROGEL DRESSING 90 GM TUBE TP SCH ×2 (15:30→20:18)
[2016-10-09 15:52] VITALS: BP 120/66
[2016-10-09 18:16] VITALS: BP 117/83
[2016-10-09 21:04] VITALS: BP 106/75
[2016-10-09] MEDS: METOPROLOL TARTRATE 50 MG TABLET GT SCH (21:05)
[2016-10-09] MEDS: LACTULOSE 10 G/15 ML UDC (PYXIS) GT PRN (23:41)
[2016-10-10 00:52] VITALS: BP 137/66
[2016-10-10] MEDS: IPRATROPIUM NEB FS 0.5 MG/2.5 ML AMPUL.NEB NEB SCH ×4 (02:04→20:27)
[2016-10-10] MEDS: ALBUTEROL FS 2.5 MG/3 ML VIAL.NEB NEB SCH ×4 (02:04→20:27)
[2016-10-10] MEDS: PANTOPRAZOLE 40 MG/PACK PACK GT SCH (05:28)
[2016-10-10] MEDS: BLOOD SUGAR DIAGNOSTIC 1 EACH STRIP IN SCH ×4 (05:28→23:44)
[2016-10-10] MEDS: RENAL NOVASOURCE 1,000 ML BOTTLE GT PRN (05:28)
[2016-10-10] MEDS: INSULIN REGULAR, HUMAN 100 UNIT/ML 3 ML VIAL SQ PRN ×4 (05:28→23:44)
[2016-10-10 06:05] VITALS: BP 137/78
[2016-10-10 07:37] VITALS: BP 134/70
[2016-10-10] MEDS: DAKINS HALF STRENGTH (0.25%) 480 ML BOTTLE TOP SCH ×2 (09:00→20:48)
[2016-10-10] MEDS: HYDROGEN PEROXIDE 480 ML BOTTLE TP SCH ×2 (09:00→20:49)
[2016-10-10] MEDS: Z GUARD REMEDY 4 OZ OINT TP SCH ×4 (09:00→20:49)
[2016-10-10] MEDS: HYDROGEL DRESSING 90 GM TUBE TP SCH ×2 (09:00→20:48)
[2016-10-10] MEDS: ZINC OXIDE 30 GM TUBE TP SCH ×14 (09:00→20:50)
[2016-10-10] MEDS: VITAMINS A AND D 56.7 GM TUBE TP SCH ×2 (09:00→20:49)
[2016-10-10] MEDS: hydrALAZINE HCL 25 MG TABLET GT SCH ×2 (09:12→17:25)
[2016-10-10] MEDS: CALCITRIOL ORAL SOLUTION 1 MCG/ML GT SCH (09:14)
[2016-10-10] MEDS: LACTOBACILLUS RHAMNOSUS GG 1 EACH CAP.SPRINK GT SCH ×2 (09:14→17:25)
[2016-10-10] MEDS: METOPROLOL TARTRATE 50 MG TABLET GT SCH ×2 (09:14→21:19)
[2016-10-10] MEDS: HYDROCODONE/APAP 5/325MG 1 EACH TABLET GT SCH ×2 (09:14→20:45)
[2016-10-10] MEDS: VIT B CMPLX 3/FA/VIT C/BIOTIN 1 TAB TABLET GT SCH (09:14)
[2016-10-10] MEDS: MUPIROCIN OINT 2% 22 GM TUBE SCH ×2 (09:15→20:45)
[2016-10-10] MEDS: ASCORBIC ACID 500 MG TABLET GT SCH (09:15)
[2016-10-10] MEDS: LISINOPRIL (20MG) 20 MG TABLET GT SCH (09:15)
[2016-10-10] MEDS: PROSOURCE / PROSTAT (PYXIS) 30 ML UDC GT SCH ×3 (09:15→17:25)
[2016-10-10] MEDS: HEPARIN SODIUM, PORCINE 5000 UNITS/1 ML VIAL SQ SCH ×2 (09:16→20:47)
[2016-10-10] MEDS: INSULIN GLARGINE, 100 UNIT/ML CARTRIDGE SQ SCH ×2 (09:16→21:18)
--- NOTE | 2016-10-10 13:38 | NUR ---
IDT meeting held, family unable to attend, reviewed current orders, medications and treatment. Pharmacy recommended Vit D level, obtained order for Vit D level on Thursday.
[2016-10-10 16:18] VITALS: BP 134/70
[2016-10-10 18:23] VITALS: BP 138/85
[2016-10-10 20:03] VITALS: BP 138/74
[2016-10-11] VITALS (8 sets, daily range): BP systolic 134–161; BP diastolic 65–89
[2016-10-11] MEDS: IPRATROPIUM NEB FS 0.5 MG/2.5 ML AMPUL.NEB NEB SCH ×4 (00:48→19:55)
[2016-10-11] MEDS: ALBUTEROL FS 2.5 MG/3 ML VIAL.NEB NEB SCH ×4 (00:48→19:55)
[2016-10-11] MEDS: BLOOD SUGAR DIAGNOSTIC 1 EACH STRIP IN SCH ×4 (05:11→23:30)
[2016-10-11] MEDS: PANTOPRAZOLE 40 MG/PACK PACK GT SCH (05:11)
[2016-10-11] MEDS: INSULIN REGULAR, HUMAN 100 UNIT/ML 3 ML VIAL SQ PRN ×3 (05:12→23:31)
[2016-10-11] MEDS: RENAL NOVASOURCE 1,000 ML BOTTLE GT PRN (05:12)
[2016-10-11] MEDS: ZINC OXIDE 30 GM TUBE TP SCH ×14 (09:00→20:42)
[2016-10-11] MEDS: hydrALAZINE HCL 25 MG TABLET GT SCH ×2 (09:00→17:35)
[2016-10-11] MEDS: HYDROGEL DRESSING 90 GM TUBE TP SCH ×2 (09:00→20:41)
[2016-10-11] MEDS: HYDROCODONE/APAP 5/325MG 1 EACH TABLET GT SCH ×2 (09:00→20:40)
[2016-10-11] MEDS: MUPIROCIN OINT 2% 22 GM TUBE SCH ×2 (09:00→20:40)
[2016-10-11] MEDS: HYDROGEN PEROXIDE 480 ML BOTTLE TP SCH ×2 (09:00→20:41)
[2016-10-11] MEDS: Z GUARD REMEDY 4 OZ OINT TP SCH ×4 (09:00→20:41)
[2016-10-11] MEDS: VITAMINS A AND D 56.7 GM TUBE TP SCH ×2 (09:00→20:41)
[2016-10-11] MEDS: DAKINS HALF STRENGTH (0.25%) 480 ML BOTTLE TOP SCH ×2 (09:00→20:41)
[2016-10-11] MEDS: CALCITRIOL ORAL SOLUTION 1 MCG/ML GT SCH (09:40)
[2016-10-11] MEDS: LACTOBACILLUS RHAMNOSUS GG 1 EACH CAP.SPRINK GT SCH ×2 (09:40→17:35)
[2016-10-11] MEDS: HEPARIN SODIUM, PORCINE 5000 UNITS/1 ML VIAL SQ SCH ×2 (09:41→20:41)
[2016-10-11] MEDS: ASCORBIC ACID 500 MG TABLET GT SCH (09:41)
[2016-10-11] MEDS: VIT B CMPLX 3/FA/VIT C/BIOTIN 1 TAB TABLET GT SCH (09:41)
[2016-10-11] MEDS: PROSOURCE / PROSTAT (PYXIS) 30 ML UDC GT SCH ×3 (09:41→17:35)
[2016-10-11] MEDS: INSULIN GLARGINE, 100 UNIT/ML CARTRIDGE SQ SCH ×2 (09:42→21:15)
[2016-10-11] MEDS: METOPROLOL TARTRATE 50 MG TABLET GT SCH (21:15)
[2016-10-12 00:51] VITALS: BP 146/78
[2016-10-12] MEDS: IPRATROPIUM NEB FS 0.5 MG/2.5 ML AMPUL.NEB NEB SCH ×4 (01:10→20:21)
[2016-10-12] MEDS: ALBUTEROL FS 2.5 MG/3 ML VIAL.NEB NEB SCH ×4 (01:10→20:21)
[2016-10-12] MEDS: BLOOD SUGAR DIAGNOSTIC 1 EACH STRIP IN SCH ×4 (05:05→23:17)
[2016-10-12] MEDS: PANTOPRAZOLE 40 MG/PACK PACK GT SCH (05:05)
[2016-10-12] MEDS: INSULIN REGULAR, HUMAN 100 UNIT/ML 3 ML VIAL SQ PRN ×4 (05:06→23:18)
[2016-10-12] MEDS: RENAL NOVASOURCE 1,000 ML BOTTLE GT PRN ×2 (05:07→23:37)
[2016-10-12 06:01] VITALS: BP 131/67
[2016-10-12 07:29] VITALS: BP 144/73
[2016-10-12] MEDS: INSULIN GLARGINE, 100 UNIT/ML CARTRIDGE SQ SCH ×2 (09:00→20:52)
[2016-10-12] MEDS: hydrALAZINE HCL 25 MG TABLET GT SCH ×2 (09:56→17:00)
[2016-10-12] MEDS: METOPROLOL TARTRATE 50 MG TABLET GT SCH ×2 (09:56→21:25)
[2016-10-12] MEDS: CALCITRIOL ORAL SOLUTION 1 MCG/ML GT SCH (09:56)
[2016-10-12] MEDS: LACTOBACILLUS RHAMNOSUS GG 1 EACH CAP.SPRINK GT SCH ×2 (09:56→17:00)
[2016-10-12] MEDS: LISINOPRIL (20MG) 20 MG TABLET GT SCH (09:57)
[2016-10-12] MEDS: ASCORBIC ACID 500 MG TABLET GT SCH (09:57)
[2016-10-12] MEDS: PROSOURCE / PROSTAT (PYXIS) 30 ML UDC GT SCH ×3 (09:57→17:00)
[2016-10-12] MEDS: VIT B CMPLX 3/FA/VIT C/BIOTIN 1 TAB TABLET GT SCH (09:57)
[2016-10-12] MEDS: MUPIROCIN OINT 2% 22 GM TUBE SCH ×2 (09:58→20:51)
[2016-10-12] MEDS: HEPARIN SODIUM, PORCINE 5000 UNITS/1 ML VIAL SQ SCH ×2 (10:00→20:51)
[2016-10-12] MEDS: HYDROCODONE/APAP 5/325MG 1 EACH TABLET GT SCH ×2 (14:00→20:52)
[2016-10-12] MEDS: HYDROGEN PEROXIDE 480 ML BOTTLE TP SCH ×2 (15:00→20:53)
[2016-10-12] MEDS: Z GUARD REMEDY 4 OZ OINT TP SCH ×4 (15:00→20:53)
[2016-10-12] MEDS: VITAMINS A AND D 56.7 GM TUBE TP SCH ×2 (15:00→20:53)
[2016-10-12] MEDS: ZINC OXIDE 30 GM TUBE TP SCH ×14 (15:00→20:53)
[2016-10-12] MEDS: DAKINS HALF STRENGTH (0.25%) 480 ML BOTTLE TOP SCH ×2 (15:00→20:54)
[2016-10-12] MEDS: HYDROGEL DRESSING 90 GM TUBE TP SCH ×2 (15:00→20:53)
[2016-10-12 18:26] VITALS: BP 155/73
[2016-10-12 20:00] VITALS: BP 170/80
[2016-10-12 21:26] VITALS: BP 156/74
[2016-10-13] MEDS: ALBUTEROL FS 2.5 MG/3 ML VIAL.NEB NEB SCH ×4 (00:38→20:11)
[2016-10-13] MEDS: IPRATROPIUM NEB FS 0.5 MG/2.5 ML AMPUL.NEB NEB SCH ×4 (00:38→20:11)
[2016-10-13 00:45] VITALS: BP 155/80
[2016-10-13] MEDS: BLOOD SUGAR DIAGNOSTIC 1 EACH STRIP IN SCH ×4 (05:50→23:28)
[2016-10-13] MEDS: PANTOPRAZOLE 40 MG/PACK PACK GT SCH (05:50)
[2016-10-13] MEDS: INSULIN REGULAR, HUMAN 100 UNIT/ML 3 ML VIAL SQ PRN ×4 (05:51→23:28)
[2016-10-13 06:23] VITALS: BP 158/75
[2016-10-13 07:53] VITALS: BP 138/62
[2016-10-13] MEDS: CALCITRIOL ORAL SOLUTION 1 MCG/ML GT SCH (09:00)
[2016-10-13] MEDS: INSULIN GLARGINE, 100 UNIT/ML CARTRIDGE SQ SCH ×2 (09:00→21:37)
[2016-10-13] MEDS: MUPIROCIN OINT 2% 22 GM TUBE SCH ×2 (09:00→21:32)
[2016-10-13] MEDS: METOPROLOL TARTRATE 50 MG TABLET GT SCH ×2 (09:00→21:34)
[2016-10-13] MEDS: HEPARIN SODIUM, PORCINE 5000 UNITS/1 ML VIAL SQ SCH ×2 (09:00→21:37)
[2016-10-13] MEDS: LISINOPRIL (20MG) 20 MG TABLET GT SCH (09:00)
[2016-10-13] MEDS: LACTOBACILLUS RHAMNOSUS GG 1 EACH CAP.SPRINK GT SCH ×2 (09:00→17:00)
[2016-10-13] MEDS: PROSOURCE / PROSTAT (PYXIS) 30 ML UDC GT SCH ×3 (09:00→17:00)
[2016-10-13] MEDS: hydrALAZINE HCL 25 MG TABLET GT SCH ×2 (09:00→17:00)
[2016-10-13] MEDS: VIT B CMPLX 3/FA/VIT C/BIOTIN 1 TAB TABLET GT SCH (09:00)
[2016-10-13] MEDS: ASCORBIC ACID 500 MG TABLET GT SCH (09:00)
[2016-10-13] MEDS: HYDROCODONE/APAP 5/325MG 1 EACH TABLET GT SCH ×2 (14:47→21:42)
[2016-10-13] MEDS: ZINC OXIDE 30 GM TUBE TP SCH ×14 (15:00→21:33)
[2016-10-13] MEDS: Z GUARD REMEDY 4 OZ OINT TP SCH ×4 (15:00→21:32)
[2016-10-13] MEDS: DAKINS HALF STRENGTH (0.25%) 480 ML BOTTLE TOP SCH ×2 (15:00→21:32)
[2016-10-13] MEDS: HYDROGEL DRESSING 90 GM TUBE TP SCH ×2 (15:00→21:32)
[2016-10-13] MEDS: HYDROGEN PEROXIDE 480 ML BOTTLE TP SCH ×2 (15:00→21:32)
[2016-10-13] MEDS: VITAMINS A AND D 56.7 GM TUBE TP SCH ×2 (15:00→21:33)
[2016-10-13 17:01] VITALS: BP 148/76
[2016-10-13 18:33] VITALS: BP 134/73
[2016-10-13 19:37] VITALS: BP 150/77
[2016-10-14] VITALS: BP 150/77
[2016-10-14] MEDS: ALBUTEROL FS 2.5 MG/3 ML VIAL.NEB NEB SCH ×4 (00:44→19:52)
[2016-10-14] MEDS: IPRATROPIUM NEB FS 0.5 MG/2.5 ML AMPUL.NEB NEB SCH ×4 (00:44→19:52)
[2016-10-14] MEDS: PANTOPRAZOLE 40 MG/PACK PACK GT SCH (05:37)
[2016-10-14] MEDS: BLOOD SUGAR DIAGNOSTIC 1 EACH STRIP IN SCH ×4 (05:37→23:14)
[2016-10-14] MEDS: INSULIN REGULAR, HUMAN 100 UNIT/ML 3 ML VIAL SQ PRN ×4 (05:38→23:19)
[2016-10-14 06:00] VITALS: BP 144/76
[2016-10-14 08:06] VITALS: BP 175/78
[2016-10-14] MEDS: LACTOBACILLUS RHAMNOSUS GG 1 EACH CAP.SPRINK GT SCH ×2 (08:46→17:00)
[2016-10-14] MEDS: MUPIROCIN OINT 2% 22 GM TUBE SCH ×2 (08:46→21:20)
[2016-10-14] MEDS: PROSOURCE / PROSTAT (PYXIS) 30 ML UDC GT SCH ×3 (08:46→17:00)
[2016-10-14] MEDS: VIT B CMPLX 3/FA/VIT C/BIOTIN 1 TAB TABLET GT SCH (08:46)
[2016-10-14] MEDS: ASCORBIC ACID 500 MG TABLET GT SCH (08:46)
[2016-10-14] MEDS: CALCITRIOL ORAL SOLUTION 1 MCG/ML GT SCH (08:46)
[2016-10-14] MEDS: HEPARIN SODIUM, PORCINE 5000 UNITS/1 ML VIAL SQ SCH ×2 (08:47→21:20)
[2016-10-14] MEDS: INSULIN GLARGINE, 100 UNIT/ML CARTRIDGE SQ SCH ×2 (08:48→21:21)
[2016-10-14] MEDS: hydrALAZINE HCL 25 MG TABLET GT SCH ×2 (09:00→17:00)
[2016-10-14] MEDS: ZINC OXIDE 30 GM TUBE TP SCH ×13 (09:00→21:54)
[2016-10-14] MEDS: HYDROCODONE/APAP 5/325MG 1 EACH TABLET GT SCH ×3 (13:30→21:20)
[2016-10-14] MEDS: HYDROGEN PEROXIDE 480 ML BOTTLE TP SCH ×2 (16:00→21:54)
[2016-10-14] MEDS: DAKINS HALF STRENGTH (0.25%) 480 ML BOTTLE TOP SCH ×2 (16:00→21:53)
[2016-10-14] MEDS: HYDROGEL DRESSING 90 GM TUBE TP SCH ×2 (16:00→21:53)
[2016-10-14] MEDS: VITAMINS A AND D 56.7 GM TUBE TP SCH (16:00)
[2016-10-14] MEDS: Z GUARD REMEDY 4 OZ OINT TP SCH ×4 (16:00→21:54)
[2016-10-14] MEDS: CADEXOMER IODINE 40 GM TUBE TP SCH (16:00)
[2016-10-14] MEDS: RENAL NOVASOURCE 1,000 ML BOTTLE GT PRN (18:20)
[2016-10-14 18:28] VITALS: BP 137/72
[2016-10-14 19:45] VITALS: BP 129/77
[2016-10-14] MEDS: METOPROLOL TARTRATE 50 MG TABLET GT SCH (21:21)
[2016-10-15 00:37] VITALS: BP 134/70
[2016-10-15] MEDS: IPRATROPIUM NEB FS 0.5 MG/2.5 ML AMPUL.NEB NEB SCH ×4 (01:50→19:48)
[2016-10-15] MEDS: ALBUTEROL FS 2.5 MG/3 ML VIAL.NEB NEB SCH ×4 (01:50→19:48)
[2016-10-15 06:03] VITALS: BP 126/68
[2016-10-15] MEDS: PANTOPRAZOLE 40 MG/PACK PACK GT SCH (06:04)
[2016-10-15] MEDS: BLOOD SUGAR DIAGNOSTIC 1 EACH STRIP IN SCH ×4 (06:09→23:06)
[2016-10-15] MEDS: INSULIN REGULAR, HUMAN 100 UNIT/ML 3 ML VIAL SQ PRN ×4 (06:10→23:07)
[2016-10-15 07:45] VITALS: BP 119/59
[2016-10-15] MEDS: HYDROGEL DRESSING 90 GM TUBE TP SCH ×2 (09:00→21:48)
[2016-10-15] MEDS: Z GUARD REMEDY 4 OZ OINT TP SCH ×4 (09:00→21:48)
[2016-10-15] MEDS: HYDROGEN PEROXIDE 480 ML BOTTLE TP SCH ×2 (09:00→21:48)
[2016-10-15] MEDS: DAKINS HALF STRENGTH (0.25%) 480 ML BOTTLE TOP SCH ×2 (09:00→21:48)
[2016-10-15] MEDS: CADEXOMER IODINE 40 GM TUBE TP SCH (09:00)
[2016-10-15] MEDS: MUPIROCIN OINT 2% 22 GM TUBE SCH ×2 (09:00→21:23)
[2016-10-15] MEDS: ZINC OXIDE 30 GM TUBE TP SCH ×6 (09:00→21:52)
[2016-10-15] MEDS: METOPROLOL TARTRATE 50 MG TABLET GT SCH ×2 (09:46→21:24)
[2016-10-15] MEDS: CALCITRIOL ORAL SOLUTION 1 MCG/ML GT SCH (09:46)
[2016-10-15] MEDS: hydrALAZINE HCL 25 MG TABLET GT SCH ×2 (09:46→16:36)
[2016-10-15] MEDS: LACTOBACILLUS RHAMNOSUS GG 1 EACH CAP.SPRINK GT SCH ×2 (09:46→16:37)
[2016-10-15] MEDS: VIT B CMPLX 3/FA/VIT C/BIOTIN 1 TAB TABLET GT SCH (09:46)
[2016-10-15] MEDS: LISINOPRIL (20MG) 20 MG TABLET GT SCH (09:47)
[2016-10-15] MEDS: PROSOURCE / PROSTAT (PYXIS) 30 ML UDC GT SCH ×3 (09:47→16:37)
[2016-10-15] MEDS: HEPARIN SODIUM, PORCINE 5000 UNITS/1 ML VIAL SQ SCH ×2 (09:47→21:23)
[2016-10-15] MEDS: HYDROCODONE/APAP 5/325MG 1 EACH TABLET GT SCH ×2 (09:47→21:23)
[2016-10-15] MEDS: ASCORBIC ACID 500 MG TABLET GT SCH (09:47)
[2016-10-15] MEDS: INSULIN GLARGINE, 100 UNIT/ML CARTRIDGE SQ SCH ×2 (09:48→21:23)
[2016-10-15] MEDS: RENAL NOVASOURCE 1,000 ML BOTTLE GT PRN (17:51)
[2016-10-15 18:13] VITALS: BP 143/75
[2016-10-15 20:37] VITALS: BP 152/83
[2016-10-16 00:36] VITALS: BP 140/72
[2016-10-16] MEDS: IPRATROPIUM NEB FS 0.5 MG/2.5 ML AMPUL.NEB NEB SCH ×4 (00:44→20:08)
[2016-10-16] MEDS: ALBUTEROL FS 2.5 MG/3 ML VIAL.NEB NEB SCH ×4 (00:44→20:08)
[2016-10-16] MEDS: PANTOPRAZOLE 40 MG/PACK PACK GT SCH (05:57)
[2016-10-16] MEDS: BLOOD SUGAR DIAGNOSTIC 1 EACH STRIP IN SCH ×3 (06:09→17:32)
[2016-10-16] MEDS: INSULIN REGULAR, HUMAN 100 UNIT/ML 3 ML VIAL SQ PRN ×2 (06:09→17:35)
[2016-10-16 06:23] VITALS: BP 130/76
[2016-10-16 07:55] VITALS: BP 123/72
[2016-10-16] MEDS: CALCITRIOL ORAL SOLUTION 1 MCG/ML GT SCH (08:13)
[2016-10-16] MEDS: VIT B CMPLX 3/FA/VIT C/BIOTIN 1 TAB TABLET GT SCH (08:13)
[2016-10-16] MEDS: HYDROCODONE/APAP 5/325MG 1 EACH TABLET GT SCH ×2 (08:13→21:00)
[2016-10-16] MEDS: PROSOURCE / PROSTAT (PYXIS) 30 ML UDC GT SCH ×3 (08:13→16:10)
[2016-10-16] MEDS: hydrALAZINE HCL 25 MG TABLET GT SCH ×2 (08:13→16:09)
[2016-10-16] MEDS: ASCORBIC ACID 500 MG TABLET GT SCH (08:13)
[2016-10-16] MEDS: MUPIROCIN OINT 2% 22 GM TUBE SCH (08:13)
[2016-10-16] MEDS: LACTOBACILLUS RHAMNOSUS GG 1 EACH CAP.SPRINK GT SCH ×2 (08:13→16:10)
[2016-10-16] MEDS: HEPARIN SODIUM, PORCINE 5000 UNITS/1 ML VIAL SQ SCH ×2 (08:16→21:46)
[2016-10-16] MEDS: DAKINS HALF STRENGTH (0.25%) 480 ML BOTTLE TOP SCH ×2 (09:00→21:47)
[2016-10-16] MEDS: CADEXOMER IODINE 40 GM TUBE TP SCH (09:00)
[2016-10-16] MEDS: HYDROGEN PEROXIDE 480 ML BOTTLE TP SCH ×2 (09:00→21:47)
[2016-10-16] MEDS: HYDROGEL DRESSING 90 GM TUBE TP SCH ×2 (09:00→21:47)
[2016-10-16] MEDS: ZINC OXIDE 30 GM TUBE TP SCH ×6 (09:00→21:48)
[2016-10-16] MEDS: Z GUARD REMEDY 4 OZ OINT TP SCH ×4 (09:00→21:47)
[2016-10-16] MEDS: INSULIN GLARGINE, 100 UNIT/ML CARTRIDGE SQ SCH ×2 (09:00→21:47)
--- NOTE | 2016-10-16 11:50 | NUR ---
Received order from THOMAS Ramsay to TAWANA Bactroban ointment. Pt was admitted on 09/30/16 with MRSA nares and Bactroban ointment treatment.
[2016-10-16 15:48] VITALS: BP 109/63
[2016-10-16 17:42] VITALS: BP 134/77
[2016-10-16 18:17] VITALS: BP 137/70
[2016-10-16] MEDS: METOPROLOL TARTRATE 50 MG TABLET GT SCH (22:05)
[2016-10-16] MEDS: RENAL NOVASOURCE 1,000 ML BOTTLE GT PRN (23:55)
[2016-10-17] VITALS: BP 104/58
[2016-10-17] MEDS: BLOOD SUGAR DIAGNOSTIC 1 EACH STRIP IN SCH ×4 (00:20→17:45)
[2016-10-17] MEDS: INSULIN REGULAR, HUMAN 100 UNIT/ML 3 ML VIAL SQ PRN ×4 (00:21→17:55)
[2016-10-17] MEDS: ALBUTEROL FS 2.5 MG/3 ML VIAL.NEB NEB SCH ×4 (01:30→19:56)
[2016-10-17] MEDS: IPRATROPIUM NEB FS 0.5 MG/2.5 ML AMPUL.NEB NEB SCH ×4 (01:30→19:56)
[2016-10-17] MEDS: PANTOPRAZOLE 40 MG/PACK PACK GT SCH (05:27)
[2016-10-17] MEDS: CLONIDINE HCL 0.2 MG TABLET GT PRN (05:37)
[2016-10-17 06:00] VITALS: BP 114/71
[2016-10-17] MEDS: hydrALAZINE HCL 25 MG TABLET GT SCH ×2 (09:00→17:45)
[2016-10-17] MEDS: Z GUARD REMEDY 4 OZ OINT TP SCH ×4 (09:00→20:22)
[2016-10-17] MEDS: METOPROLOL TARTRATE 50 MG TABLET GT SCH ×2 (09:00→22:12)
[2016-10-17] MEDS: ZINC OXIDE 30 GM TUBE TP SCH ×6 (09:00→20:22)
[2016-10-17] MEDS: HYDROGEL DRESSING 90 GM TUBE TP SCH ×2 (09:00→20:22)
[2016-10-17] MEDS: CADEXOMER IODINE 40 GM TUBE TP SCH (09:00)
[2016-10-17] MEDS: LACTOBACILLUS RHAMNOSUS GG 1 EACH CAP.SPRINK GT SCH ×2 (09:24→17:45)
[2016-10-17] MEDS: CALCITRIOL ORAL SOLUTION 1 MCG/ML GT SCH (09:24)
[2016-10-17] MEDS: VIT B CMPLX 3/FA/VIT C/BIOTIN 1 TAB TABLET GT SCH (09:25)
[2016-10-17] MEDS: HYDROCODONE/APAP 5/325MG 1 EACH TABLET GT SCH ×2 (09:25→20:19)
[2016-10-17] MEDS: HEPARIN SODIUM, PORCINE 5000 UNITS/1 ML VIAL SQ SCH ×2 (09:26→20:20)
[2016-10-17] MEDS: LISINOPRIL (20MG) 20 MG TABLET GT SCH (09:26)
[2016-10-17] MEDS: ASCORBIC ACID 500 MG TABLET GT SCH (09:26)
[2016-10-17] MEDS: PROSOURCE / PROSTAT (PYXIS) 30 ML UDC GT SCH ×3 (09:26→17:45)
[2016-10-17] MEDS: INSULIN GLARGINE, 100 UNIT/ML CARTRIDGE SQ SCH ×2 (09:31→20:20)
[2016-10-17] MEDS: DAKINS HALF STRENGTH (0.25%) 480 ML BOTTLE TOP SCH ×2 (09:31→20:22)
[2016-10-17] MEDS: HYDROGEN PEROXIDE 480 ML BOTTLE TP SCH ×2 (10:00→20:22)
--- NOTE | 2016-10-17 14:50 | NUR ---
IDT meeting held, family unable to attend. Current orders, new medications and treatments reviewed by the team. Vit D level 23.9, pharmacist asked MD Morejon if he wants to put patient back to on Vit D, according to MD to ask regulator tester. Asked Dr. Terrie Olivo regarding Vit D, she stated that she will d/c Vit D if not yet discontinued.
[2016-10-17 18:12] VITALS: BP 135/78
[2016-10-17 20:00] VITALS: BP 142/77
[2016-10-18] VITALS: BP 147/91
[2016-10-18] MEDS: BLOOD SUGAR DIAGNOSTIC 1 EACH STRIP IN SCH ×4 (00:12→18:09)
[2016-10-18] MEDS: INSULIN REGULAR, HUMAN 100 UNIT/ML 3 ML VIAL SQ PRN ×3 (00:15→18:17)
[2016-10-18] MEDS: RENAL NOVASOURCE 1,000 ML BOTTLE GT PRN (01:30)
[2016-10-18] MEDS: ALBUTEROL FS 2.5 MG/3 ML VIAL.NEB NEB SCH ×4 (02:10→20:12)
[2016-10-18] MEDS: IPRATROPIUM NEB FS 0.5 MG/2.5 ML AMPUL.NEB NEB SCH ×4 (02:10→20:12)
[2016-10-18] MEDS: PANTOPRAZOLE 40 MG/PACK PACK GT SCH (05:30)
[2016-10-18 06:00] VITALS: BP 144/77
[2016-10-18 07:54] VITALS: BP 155/77
[2016-10-18] MEDS: LACTOBACILLUS RHAMNOSUS GG 1 EACH CAP.SPRINK GT SCH ×2 (09:28→17:00)
[2016-10-18] MEDS: VIT B CMPLX 3/FA/VIT C/BIOTIN 1 TAB TABLET GT SCH (09:28)
[2016-10-18] MEDS: hydrALAZINE HCL 25 MG TABLET GT SCH ×2 (09:28→17:00)
[2016-10-18] MEDS: ASCORBIC ACID 500 MG TABLET GT SCH (09:28)
[2016-10-18] MEDS: PROSOURCE / PROSTAT (PYXIS) 30 ML UDC GT SCH ×3 (09:28→17:00)
[2016-10-18] MEDS: CALCITRIOL ORAL SOLUTION 1 MCG/ML GT SCH (09:28)
[2016-10-18] MEDS: HEPARIN SODIUM, PORCINE 5000 UNITS/1 ML VIAL SQ SCH ×2 (09:30→21:34)
[2016-10-18] MEDS: INSULIN GLARGINE, 100 UNIT/ML CARTRIDGE SQ SCH ×2 (09:31→21:35)
[2016-10-18 14:00] VITALS: BP 134/74
[2016-10-18] MEDS: HYDROCODONE/APAP 5/325MG 1 EACH TABLET GT SCH ×2 (14:15→21:00)
[2016-10-18] MEDS: HYDROGEN PEROXIDE 480 ML BOTTLE TP SCH ×2 (15:00→21:35)
[2016-10-18] MEDS: HYDROGEL DRESSING 90 GM TUBE TP SCH ×2 (15:00→21:35)
[2016-10-18] MEDS: DAKINS HALF STRENGTH (0.25%) 480 ML BOTTLE TOP SCH ×2 (15:00→21:35)
[2016-10-18] MEDS: Z GUARD REMEDY 4 OZ OINT TP SCH ×4 (15:00→21:35)
[2016-10-18] MEDS: CADEXOMER IODINE 40 GM TUBE TP SCH (15:00)
[2016-10-18] MEDS: ZINC OXIDE 30 GM TUBE TP SCH ×6 (15:00→21:35)
--- NOTE | 2016-10-18 17:08 | NUR ---
Notified THOMAS Ramsay of the final result of wound culture of the sacral area showing slight growth of enterococcus species - VRE, rare growth staph aureus - MRSA. New order given for Zyvox 600 mg. /GT (sacral wound infection). Order faxed to pharmacy. Addendum: 10/18/16 at 1826 by VALENTINA BENTON RN Left a message to responsible democrat (John Woodall) regarding new order.
[2016-10-18 18:00] VITALS: BP 117/76
[2016-10-18 19:58] VITALS: BP 143/78
[2016-10-18] MEDS: LINEZOLID 600 MG TABLET GT SCH (21:32)
[2016-10-18] MEDS: METOPROLOL TARTRATE 50 MG TABLET GT SCH (21:52)
[2016-10-19] VITALS: BP 149/82
[2016-10-19] MEDS: BLOOD SUGAR DIAGNOSTIC 1 EACH STRIP IN SCH ×5 (00:34→23:17)
[2016-10-19] MEDS: CLONIDINE HCL 0.2 MG TABLET GT PRN (00:35)
[2016-10-19] MEDS: INSULIN REGULAR, HUMAN 100 UNIT/ML 3 ML VIAL SQ PRN ×5 (00:36→23:18)
[2016-10-19] MEDS: IPRATROPIUM NEB FS 0.5 MG/2.5 ML AMPUL.NEB NEB SCH ×4 (02:10→20:40)
[2016-10-19] MEDS: ALBUTEROL FS 2.5 MG/3 ML VIAL.NEB NEB SCH ×4 (02:10→20:40)
[2016-10-19 06:00] VITALS: BP 145/74
[2016-10-19] MEDS: PANTOPRAZOLE 40 MG/PACK PACK GT SCH (06:19)
[2016-10-19] MEDS: RENAL NOVASOURCE 1,000 ML BOTTLE GT PRN (06:26)
--- NOTE | 2016-10-19 06:47 | NUR ---
Received order to collect nares swab for MRSA clearance #2 noted and carried out.
[2016-10-19] MEDS: HEPARIN SODIUM, PORCINE 5000 UNITS/1 ML VIAL SQ SCH ×2 (09:00→21:17)
[2016-10-19] MEDS: LISINOPRIL (20MG) 20 MG TABLET GT SCH (09:00)
[2016-10-19] MEDS: METOPROLOL TARTRATE 50 MG TABLET GT SCH ×2 (09:00→21:19)
[2016-10-19] MEDS: CALCITRIOL ORAL SOLUTION 1 MCG/ML GT SCH (09:00)
[2016-10-19] MEDS: PROSOURCE / PROSTAT (PYXIS) 30 ML UDC GT SCH ×3 (09:00→17:00)
[2016-10-19] MEDS: LACTOBACILLUS RHAMNOSUS GG 1 EACH CAP.SPRINK GT SCH ×2 (09:00→17:00)
[2016-10-19] MEDS: LINEZOLID 600 MG TABLET GT SCH ×2 (09:00→21:17)
[2016-10-19] MEDS: INSULIN GLARGINE, 100 UNIT/ML CARTRIDGE SQ SCH ×2 (09:00→21:18)
[2016-10-19] MEDS: ASCORBIC ACID 500 MG TABLET GT SCH (09:00)
[2016-10-19] MEDS: VIT B CMPLX 3/FA/VIT C/BIOTIN 1 TAB TABLET GT SCH (09:00)
[2016-10-19] MEDS: hydrALAZINE HCL 25 MG TABLET GT SCH ×2 (09:00→17:00)
[2016-10-19] MEDS: HYDROCODONE/APAP 5/325MG 1 EACH TABLET GT SCH ×2 (14:30→21:17)
[2016-10-19] MEDS: HYDROGEL DRESSING 90 GM TUBE TP SCH ×2 (15:30→21:18)
[2016-10-19] MEDS: ZINC OXIDE 30 GM TUBE TP SCH ×6 (15:30→21:18)
[2016-10-19] MEDS: Z GUARD REMEDY 4 OZ OINT TP SCH ×4 (15:30→21:18)
[2016-10-19] MEDS: CADEXOMER IODINE 40 GM TUBE TP SCH (15:30)
[2016-10-19] MEDS: HYDROGEN PEROXIDE 480 ML BOTTLE TP SCH ×2 (15:30→21:18)
[2016-10-19] MEDS: DAKINS HALF STRENGTH (0.25%) 480 ML BOTTLE TOP SCH ×2 (15:30→21:18)
[2016-10-19 18:05] VITALS: BP 131/64
[2016-10-19 19:44] VITALS: BP 134/69
[2016-10-19 23:21] VITALS: BP 140/60
[2016-10-20] VITALS (7 sets, daily range): BP systolic 88–139; BP diastolic 49–68
[2016-10-20] MEDS: IPRATROPIUM NEB FS 0.5 MG/2.5 ML AMPUL.NEB NEB SCH ×4 (01:15→19:30)
[2016-10-20] MEDS: ALBUTEROL FS 2.5 MG/3 ML VIAL.NEB NEB SCH ×4 (01:15→19:30)
[2016-10-20] MEDS: PANTOPRAZOLE 40 MG/PACK PACK GT SCH (05:49)
[2016-10-20] MEDS: BLOOD SUGAR DIAGNOSTIC 1 EACH STRIP IN SCH ×4 (05:49→23:27)
[2016-10-20] MEDS: INSULIN REGULAR, HUMAN 100 UNIT/ML 3 ML VIAL SQ PRN ×4 (05:50→23:27)
[2016-10-20] MEDS: hydrALAZINE HCL 25 MG TABLET GT SCH ×2 (08:27→17:00)
[2016-10-20] MEDS: VIT B CMPLX 3/FA/VIT C/BIOTIN 1 TAB TABLET GT SCH (08:27)
[2016-10-20] MEDS: LACTOBACILLUS RHAMNOSUS GG 1 EACH CAP.SPRINK GT SCH ×2 (08:27→17:00)
[2016-10-20] MEDS: CALCITRIOL ORAL SOLUTION 1 MCG/ML GT SCH (08:27)
[2016-10-20] MEDS: LISINOPRIL (20MG) 20 MG TABLET GT SCH (08:27)
[2016-10-20] MEDS: METOPROLOL TARTRATE 50 MG TABLET GT SCH ×2 (08:27→21:08)
[2016-10-20] MEDS: ASCORBIC ACID 500 MG TABLET GT SCH (08:28)
[2016-10-20] MEDS: INSULIN GLARGINE, 100 UNIT/ML CARTRIDGE SQ SCH ×2 (08:28→21:07)
[2016-10-20] MEDS: LINEZOLID 600 MG TABLET GT SCH ×2 (08:28→21:07)
[2016-10-20] MEDS: HEPARIN SODIUM, PORCINE 5000 UNITS/1 ML VIAL SQ SCH ×2 (08:28→21:07)
[2016-10-20] MEDS: PROSOURCE / PROSTAT (PYXIS) 30 ML UDC GT SCH ×3 (08:28→17:00)
--- NOTE | 2016-10-20 12:38 | NUR ---
Clarified Zyvox stop date with THOMAS Ramsay. She said to give Zyvox for a total of 2 weeks.
[2016-10-20] MEDS: HYDROCODONE/APAP 5/325MG 1 EACH TABLET GT SCH ×2 (14:00→21:07)
[2016-10-20] MEDS: RENAL NOVASOURCE 1,000 ML BOTTLE GT PRN (14:02)
[2016-10-20] MEDS: HYDROGEN PEROXIDE 480 ML BOTTLE TP SCH ×2 (15:00→21:08)
[2016-10-20] MEDS: CADEXOMER IODINE 40 GM TUBE TP SCH (15:00)
[2016-10-20] MEDS: Z GUARD REMEDY 4 OZ OINT TP SCH ×4 (15:00→21:08)
[2016-10-20] MEDS: HYDROGEL DRESSING 90 GM TUBE TP SCH ×2 (15:00→21:08)
[2016-10-20] MEDS: DAKINS HALF STRENGTH (0.25%) 480 ML BOTTLE TOP SCH ×2 (15:00→21:08)
[2016-10-20] MEDS: ZINC OXIDE 30 GM TUBE TP SCH ×6 (15:00→21:08)
[2016-10-21] MEDS: IPRATROPIUM NEB FS 0.5 MG/2.5 ML AMPUL.NEB NEB SCH ×4 (01:42→19:30)
[2016-10-21] MEDS: ALBUTEROL FS 2.5 MG/3 ML VIAL.NEB NEB SCH ×4 (01:42→19:30)
[2016-10-21 04:21] VITALS: BP 122/56
[2016-10-21] MEDS: BLOOD SUGAR DIAGNOSTIC 1 EACH STRIP IN SCH ×3 (05:39→18:18)
[2016-10-21] MEDS: PANTOPRAZOLE 40 MG/PACK PACK GT SCH (05:39)
[2016-10-21] MEDS: INSULIN REGULAR, HUMAN 100 UNIT/ML 3 ML VIAL SQ PRN ×2 (05:41→18:22)
[2016-10-21 06:05] VITALS: BP 109/59
[2016-10-21] MEDS: hydrALAZINE HCL 25 MG TABLET GT SCH ×2 (08:53→17:00)
[2016-10-21] MEDS: CALCITRIOL ORAL SOLUTION 1 MCG/ML GT SCH (08:54)
[2016-10-21] MEDS: LINEZOLID 600 MG TABLET GT SCH ×2 (08:54→21:22)
[2016-10-21] MEDS: LACTOBACILLUS RHAMNOSUS GG 1 EACH CAP.SPRINK GT SCH ×2 (08:54→17:00)
[2016-10-21] MEDS: VIT B CMPLX 3/FA/VIT C/BIOTIN 1 TAB TABLET GT SCH (08:54)
[2016-10-21] MEDS: HEPARIN SODIUM, PORCINE 5000 UNITS/1 ML VIAL SQ SCH ×2 (08:54→21:22)
[2016-10-21] MEDS: PROSOURCE / PROSTAT (PYXIS) 30 ML UDC GT SCH ×3 (08:54→17:00)
[2016-10-21] MEDS: ASCORBIC ACID 500 MG TABLET GT SCH (08:54)
[2016-10-21] MEDS: INSULIN GLARGINE, 100 UNIT/ML CARTRIDGE SQ SCH ×2 (08:55→21:22)
[2016-10-21 14:00] VITALS: BP 130/78
[2016-10-21] MEDS: HYDROCODONE/APAP 5/325MG 1 EACH TABLET GT SCH ×2 (14:00→21:22)
[2016-10-21] MEDS: CADEXOMER IODINE 40 GM TUBE TP SCH (15:00)
[2016-10-21] MEDS: HYDROGEL DRESSING 90 GM TUBE TP SCH ×2 (15:00→21:22)
[2016-10-21] MEDS: ZINC OXIDE 30 GM TUBE TP SCH ×7 (15:00→21:23)
[2016-10-21] MEDS: HYDROGEN PEROXIDE 480 ML BOTTLE TP SCH ×2 (15:00→21:23)
[2016-10-21] MEDS: Z GUARD REMEDY 4 OZ OINT TP SCH ×4 (15:00→21:23)
[2016-10-21] MEDS: DAKINS HALF STRENGTH (0.25%) 480 ML BOTTLE TOP SCH ×2 (15:00→21:22)
--- NOTE | 2016-10-21 16:36 | NUR ---
Out of unit for dialysis, V/S not taken.
--- NOTE | 2016-10-21 17:00 | NUR ---
Pt noted with GT site redness. Received order to apply zinc oxide cream q shift and PRN for 14 days, and wound consult.
[2016-10-21 18:00] VITALS: BP 116/58
[2016-10-21 19:28] VITALS: BP 100/62
[2016-10-21] MEDS: METOPROLOL TARTRATE 50 MG TABLET GT SCH (21:23)
[2016-10-22 00:02] VITALS: BP 109/55
[2016-10-22] MEDS: BLOOD SUGAR DIAGNOSTIC 1 EACH STRIP IN SCH ×5 (00:06→23:29)
[2016-10-22] MEDS: INSULIN REGULAR, HUMAN 100 UNIT/ML 3 ML VIAL SQ PRN ×4 (00:06→23:30)
[2016-10-22] MEDS: IPRATROPIUM NEB FS 0.5 MG/2.5 ML AMPUL.NEB NEB SCH ×4 (01:42→19:16)
[2016-10-22] MEDS: ALBUTEROL FS 2.5 MG/3 ML VIAL.NEB NEB SCH ×4 (01:42→19:16)
[2016-10-22] MEDS: PANTOPRAZOLE 40 MG/PACK PACK GT SCH (05:45)
[2016-10-22 06:38] VITALS: BP 112/59
[2016-10-22 07:31] VITALS: BP 111/62
[2016-10-22] MEDS: VIT B CMPLX 3/FA/VIT C/BIOTIN 1 TAB TABLET GT SCH (09:00)
[2016-10-22] MEDS: DAKINS HALF STRENGTH (0.25%) 480 ML BOTTLE TOP SCH ×2 (09:00→21:20)
[2016-10-22] MEDS: HYDROCODONE/APAP 5/325MG 1 EACH TABLET GT SCH ×2 (09:00→21:18)
[2016-10-22] MEDS: ZINC OXIDE 30 GM TUBE TP SCH ×8 (09:00→21:20)
[2016-10-22] MEDS: METOPROLOL TARTRATE 50 MG TABLET GT SCH ×2 (09:00→21:21)
[2016-10-22] MEDS: HYDROGEN PEROXIDE 480 ML BOTTLE TP SCH ×2 (09:00→21:20)
[2016-10-22] MEDS: HYDROGEL DRESSING 90 GM TUBE TP SCH ×2 (09:00→21:20)
[2016-10-22] MEDS: hydrALAZINE HCL 25 MG TABLET GT SCH ×2 (09:00→17:00)
[2016-10-22] MEDS: CADEXOMER IODINE 40 GM TUBE TP SCH (09:00)
[2016-10-22] MEDS: INSULIN GLARGINE, 100 UNIT/ML CARTRIDGE SQ SCH ×2 (09:19→21:19)
[2016-10-22] MEDS: CALCITRIOL ORAL SOLUTION 1 MCG/ML GT SCH (09:54)
[2016-10-22] MEDS: LISINOPRIL (20MG) 20 MG TABLET GT SCH (09:54)
[2016-10-22] MEDS: PROSOURCE / PROSTAT (PYXIS) 30 ML UDC GT SCH ×3 (09:55→17:37)
[2016-10-22] MEDS: LACTOBACILLUS RHAMNOSUS GG 1 EACH CAP.SPRINK GT SCH ×2 (09:55→17:37)
[2016-10-22] MEDS: ASCORBIC ACID 500 MG TABLET GT SCH (09:55)
[2016-10-22] MEDS: LINEZOLID 600 MG TABLET GT SCH ×2 (09:56→21:18)
[2016-10-22] MEDS: HEPARIN SODIUM, PORCINE 5000 UNITS/1 ML VIAL SQ SCH ×2 (09:58→21:19)
[2016-10-22] MEDS: Z GUARD REMEDY 4 OZ OINT TP SCH ×4 (09:59→21:20)
--- NOTE | 2016-10-22 10:48 | NUR ---
WOUND CARE CONSULT: PT SEEN FOR REDNESS/IRRITATION AROUND G TUBE SITE. CONCUR WITH CURRENT TREATMENT ORDER FOR ZINC OXIDE. DISCUSSED IMPORTANCE OF KEEPING SKIN CLEAN AND DRY WITH NURSING STAFF. WILL SEE PRN. IN AGREEMENT WITH PLAN OF CARE.
[2016-10-22 18:20] VITALS: BP 124/70
[2016-10-22] MEDS: RENAL NOVASOURCE 1,000 ML BOTTLE GT PRN (19:13)
[2016-10-22 19:24] VITALS: BP 126/68
[2016-10-22] MEDS: CLONIDINE HCL 0.2 MG TABLET GT PRN (23:30)
[2016-10-23 00:48] VITALS: BP 157/88
[2016-10-23] MEDS: IPRATROPIUM NEB FS 0.5 MG/2.5 ML AMPUL.NEB NEB SCH ×4 (02:24→19:10)
[2016-10-23] MEDS: ALBUTEROL FS 2.5 MG/3 ML VIAL.NEB NEB SCH ×4 (02:24→19:10)
[2016-10-23] MEDS: BLOOD SUGAR DIAGNOSTIC 1 EACH STRIP IN SCH ×4 (05:18→23:49)
[2016-10-23] MEDS: PANTOPRAZOLE 40 MG/PACK PACK GT SCH (05:18)
[2016-10-23] MEDS: INSULIN REGULAR, HUMAN 100 UNIT/ML 3 ML VIAL SQ PRN ×3 (05:19→23:51)
[2016-10-23 06:01] VITALS: BP 150/87
[2016-10-23 07:19] VITALS: BP 152/61
[2016-10-23] MEDS: LACTOBACILLUS RHAMNOSUS GG 1 EACH CAP.SPRINK GT SCH ×2 (09:00→17:58)
[2016-10-23] MEDS: hydrALAZINE HCL 25 MG TABLET GT SCH ×2 (09:00→17:00)
[2016-10-23] MEDS: VIT B CMPLX 3/FA/VIT C/BIOTIN 1 TAB TABLET GT SCH (09:00)
[2016-10-23] MEDS: LINEZOLID 600 MG TABLET GT SCH ×2 (09:00→20:32)
[2016-10-23] MEDS: ASCORBIC ACID 500 MG TABLET GT SCH (09:00)
[2016-10-23] MEDS: PROSOURCE / PROSTAT (PYXIS) 30 ML UDC GT SCH ×3 (09:00→17:58)
[2016-10-23] MEDS: INSULIN GLARGINE, 100 UNIT/ML CARTRIDGE SQ SCH ×2 (09:00→21:07)
[2016-10-23] MEDS: HEPARIN SODIUM, PORCINE 5000 UNITS/1 ML VIAL SQ SCH ×2 (09:00→20:33)
[2016-10-23] MEDS: CALCITRIOL ORAL SOLUTION 1 MCG/ML GT SCH (09:00)
[2016-10-23 14:00] VITALS: BP 112/68
[2016-10-23] MEDS: HYDROCODONE/APAP 5/325MG 1 EACH TABLET GT SCH ×2 (14:00→20:32)
[2016-10-23] MEDS: DAKINS HALF STRENGTH (0.25%) 480 ML BOTTLE TOP SCH ×2 (15:00→20:33)
[2016-10-23] MEDS: Z GUARD REMEDY 4 OZ OINT TP SCH ×4 (15:00→20:34)
[2016-10-23] MEDS: HYDROGEN PEROXIDE 480 ML BOTTLE TP SCH ×2 (15:00→20:33)
[2016-10-23] MEDS: CADEXOMER IODINE 40 GM TUBE TP SCH (15:00)
[2016-10-23] MEDS: HYDROGEL DRESSING 90 GM TUBE TP SCH ×2 (15:00→20:33)
[2016-10-23] MEDS: ZINC OXIDE 30 GM TUBE TP SCH ×5 (15:00→20:34)
[2016-10-23] MEDS: RENAL NOVASOURCE 1,000 ML BOTTLE GT PRN (17:39)
--- NOTE | 2016-10-23 17:44 | NUR ---
Protonix not covered by pt's insurance. Received order from SILHOUETTE ARTIST Hellen Leija to change Protonix to Nexium 40 mg GT daily per pharmacy recommendation. Also received order to apply Nystatin powder to redness on pt's left and right underbreasts, abdominal fold, right inner arm, left and right groins.
[2016-10-23 18:00] VITALS: BP 109/64
[2016-10-23] MEDS: NYSTATIN TOP POWDER 15 GM BOTTLE TP SCH ×4 (20:33→20:34)
[2016-10-23] MEDS: METOPROLOL TARTRATE 50 MG TABLET GT SCH (21:08)
[2016-10-24] VITALS (7 sets, daily range): BP systolic 111–153; BP diastolic 68–78
[2016-10-24] MEDS: ALBUTEROL FS 2.5 MG/3 ML VIAL.NEB NEB SCH ×4 (02:01→19:39)
[2016-10-24] MEDS: IPRATROPIUM NEB FS 0.5 MG/2.5 ML AMPUL.NEB NEB SCH ×4 (02:01→19:39)
[2016-10-24] MEDS: ESOMEPRAZOLE MAG TRIHYDRATE 20 MG CAPSULE.DR GT SCH (05:16)
[2016-10-24] MEDS: BLOOD SUGAR DIAGNOSTIC 1 EACH STRIP IN SCH ×4 (05:16→23:48)
[2016-10-24] MEDS: INSULIN REGULAR, HUMAN 100 UNIT/ML 3 ML VIAL SQ PRN ×5 (05:17→23:49)
[2016-10-24] MEDS: hydrALAZINE HCL 25 MG TABLET GT SCH ×2 (08:35→17:00)
[2016-10-24] MEDS: VIT B CMPLX 3/FA/VIT C/BIOTIN 1 TAB TABLET GT SCH (08:35)
[2016-10-24] MEDS: LACTOBACILLUS RHAMNOSUS GG 1 EACH CAP.SPRINK GT SCH ×2 (08:35→17:00)
[2016-10-24] MEDS: METOPROLOL TARTRATE 50 MG TABLET GT SCH ×2 (08:35→21:39)
[2016-10-24] MEDS: CALCITRIOL ORAL SOLUTION 1 MCG/ML GT SCH (08:35)
[2016-10-24] MEDS: HEPARIN SODIUM, PORCINE 5000 UNITS/1 ML VIAL SQ SCH ×2 (08:36→21:37)
[2016-10-24] MEDS: PROSOURCE / PROSTAT (PYXIS) 30 ML UDC GT SCH ×3 (08:36→17:00)
[2016-10-24] MEDS: ASCORBIC ACID 500 MG TABLET GT SCH (08:36)
[2016-10-24] MEDS: LINEZOLID 600 MG TABLET GT SCH ×2 (08:36→21:37)
[2016-10-24] MEDS: INSULIN GLARGINE, 100 UNIT/ML CARTRIDGE SQ SCH ×2 (08:40→21:38)
[2016-10-24] MEDS: LISINOPRIL (20MG) 20 MG TABLET GT SCH (09:00)
[2016-10-24] MEDS: HYDROCODONE/APAP 5/325MG 1 EACH TABLET GT SCH ×2 (14:00→21:37)
[2016-10-24] MEDS: NYSTATIN TOP POWDER 15 GM BOTTLE TP SCH ×8 (15:00→21:38)
[2016-10-24] MEDS: CADEXOMER IODINE 40 GM TUBE TP SCH (15:00)
[2016-10-24] MEDS: HYDROGEN PEROXIDE 480 ML BOTTLE TP SCH ×2 (15:00→21:38)
[2016-10-24] MEDS: ZINC OXIDE 30 GM TUBE TP SCH ×2 (15:00→21:39)
[2016-10-24] MEDS: DAKINS HALF STRENGTH (0.25%) 480 ML BOTTLE TOP SCH ×2 (15:00→21:38)
[2016-10-24] MEDS: Z GUARD REMEDY 4 OZ OINT TP SCH ×4 (15:00→21:39)
[2016-10-24] MEDS: HYDROGEL DRESSING 90 GM TUBE TP SCH ×2 (15:00→21:38)
--- NOTE | 2016-10-24 17:00 | NUR ---
New order received from Dr. Enrique Castro to increase Lantus from 36 units to 38 units. BS ranges 176-347 (mostly above 250) in the past 2 weeks. Orders noted and carried out.
[2016-10-24] MEDS: RENAL NOVASOURCE 1,000 ML BOTTLE GT PRN (18:40)
--- NOTE | 2016-10-24 21:46 | NUR ---
Patient received trached on mechanical vent. Breath sounds equal bilateral. Tx given as ordered and tolerated well. No adverse reactions noted. Vent plugged into red outlet and alarms set and functioning.
[2016-10-25] MEDS: ALBUTEROL FS 2.5 MG/3 ML VIAL.NEB NEB SCH ×4 (00:25→19:18)
[2016-10-25] MEDS: IPRATROPIUM NEB FS 0.5 MG/2.5 ML AMPUL.NEB NEB SCH ×4 (00:25→19:18)
[2016-10-25 01:02] VITALS: BP 130/85
[2016-10-25] MEDS: ESOMEPRAZOLE MAG TRIHYDRATE 20 MG CAPSULE.DR GT SCH (05:34)
[2016-10-25] MEDS: LACTULOSE 10 G/15 ML UDC (PYXIS) GT PRN (05:34)
[2016-10-25] MEDS: BLOOD SUGAR DIAGNOSTIC 1 EACH STRIP IN SCH ×4 (05:34→23:47)
[2016-10-25] MEDS: INSULIN REGULAR, HUMAN 100 UNIT/ML 3 ML VIAL SQ PRN ×3 (05:35→23:48)
[2016-10-25 06:03] VITALS: BP 133/87
[2016-10-25 07:40] VITALS: BP 156/81
[2016-10-25] MEDS: ASCORBIC ACID 500 MG TABLET GT SCH (08:31)
[2016-10-25] MEDS: LINEZOLID 600 MG TABLET GT SCH ×2 (08:31→20:45)
[2016-10-25] MEDS: CALCITRIOL ORAL SOLUTION 1 MCG/ML GT SCH (08:31)
[2016-10-25] MEDS: LACTOBACILLUS RHAMNOSUS GG 1 EACH CAP.SPRINK GT SCH ×2 (08:31→17:00)
[2016-10-25] MEDS: PROSOURCE / PROSTAT (PYXIS) 30 ML UDC GT SCH ×3 (08:31→17:00)
[2016-10-25] MEDS: hydrALAZINE HCL 25 MG TABLET GT SCH ×2 (08:31→17:00)
[2016-10-25] MEDS: VIT B CMPLX 3/FA/VIT C/BIOTIN 1 TAB TABLET GT SCH (08:31)
[2016-10-25] MEDS: INSULIN GLARGINE, 100 UNIT/ML CARTRIDGE SQ SCH ×2 (08:33→21:28)
[2016-10-25] MEDS: HEPARIN SODIUM, PORCINE 5000 UNITS/1 ML VIAL SQ SCH ×2 (08:33→20:45)
[2016-10-25 14:00] VITALS: BP 126/59
[2016-10-25] MEDS: HYDROCODONE/APAP 5/325MG 1 EACH TABLET GT SCH ×2 (14:00→20:45)
--- NOTE | 2016-10-25 14:39 | NUR ---
Resident returned back from dialysis in stable condition. V/S 126/59, T 98, 96, 16. AV Fistula in the R forearm with dressing intact, no bleeding.
[2016-10-25] MEDS: NYSTATIN TOP POWDER 15 GM BOTTLE TP SCH ×8 (15:00→20:46)
[2016-10-25] MEDS: HYDROGEL DRESSING 90 GM TUBE TP SCH ×2 (15:00→20:45)
[2016-10-25] MEDS: Z GUARD REMEDY 4 OZ OINT TP SCH ×4 (15:00→20:46)
[2016-10-25] MEDS: CADEXOMER IODINE 40 GM TUBE TP SCH (15:00)
[2016-10-25] MEDS: DAKINS HALF STRENGTH (0.25%) 480 ML BOTTLE TOP SCH ×2 (15:00→20:45)
[2016-10-25] MEDS: ZINC OXIDE 30 GM TUBE TP SCH ×2 (15:00→20:46)
[2016-10-25] MEDS: HYDROGEN PEROXIDE 480 ML BOTTLE TP SCH ×2 (15:00→20:45)
[2016-10-25 18:00] VITALS: BP 151/83
[2016-10-25] MEDS: RENAL NOVASOURCE 1,000 ML BOTTLE GT PRN (18:34)
[2016-10-25 19:56] VITALS: BP 166/77
[2016-10-25] MEDS ORDERED: LINEZOLID 600 MG TABLET ONE (20:15)
--- NOTE | 2016-10-25 20:43 | NUR ---
PATIENT RECEIVED TRACHED ON [facility]. VENT. VENT PLUGGED INTO RED OUTLET AND ALARMS SET AND FUNCTIONING. BREATH SOUNDS EQUAL BILATERAL. BREATHING TX GIVEN ORDERED AND TOLERATED WELL. NO ADVERSE REACTIONS NOTED.
[2016-10-25] MEDS: METOPROLOL TARTRATE 50 MG TABLET GT SCH (21:28)
[2016-10-26 00:10] VITALS: BP 157/88
[2016-10-26] MEDS: ALBUTEROL FS 2.5 MG/3 ML VIAL.NEB NEB SCH ×4 (00:55→19:30)
[2016-10-26] MEDS: IPRATROPIUM NEB FS 0.5 MG/2.5 ML AMPUL.NEB NEB SCH ×4 (00:55→19:30)
[2016-10-26] MEDS: ESOMEPRAZOLE MAG TRIHYDRATE 20 MG CAPSULE.DR GT SCH (05:17)
[2016-10-26] MEDS: BLOOD SUGAR DIAGNOSTIC 1 EACH STRIP IN SCH ×3 (05:17→17:29)
[2016-10-26] MEDS: INSULIN REGULAR, HUMAN 100 UNIT/ML 3 ML VIAL SQ PRN ×3 (05:18→17:30)
[2016-10-26 06:00] VITALS: BP 147/77
[2016-10-26 06:03] VITALS: BP 147/77
[2016-10-26 07:45] VITALS: BP 160/82
[2016-10-26] MEDS: METOPROLOL TARTRATE 50 MG TABLET GT SCH ×2 (08:51→22:20)
[2016-10-26] MEDS: VIT B CMPLX 3/FA/VIT C/BIOTIN 1 TAB TABLET GT SCH (08:51)
[2016-10-26] MEDS: LINEZOLID 600 MG TABLET GT SCH ×2 (08:51→21:00)
[2016-10-26] MEDS: CALCITRIOL ORAL SOLUTION 1 MCG/ML GT SCH (08:51)
[2016-10-26] MEDS: PROSOURCE / PROSTAT (PYXIS) 30 ML UDC GT SCH ×3 (08:51→17:00)
[2016-10-26] MEDS: ASCORBIC ACID 500 MG TABLET GT SCH (08:51)
[2016-10-26] MEDS: hydrALAZINE HCL 25 MG TABLET GT SCH ×2 (08:51→16:59)
[2016-10-26] MEDS: LACTOBACILLUS RHAMNOSUS GG 1 EACH CAP.SPRINK GT SCH ×2 (08:51→16:58)
[2016-10-26] MEDS: HEPARIN SODIUM, PORCINE 5000 UNITS/1 ML VIAL SQ SCH ×2 (08:52→20:55)
[2016-10-26] MEDS: INSULIN GLARGINE, 100 UNIT/ML CARTRIDGE SQ SCH ×2 (08:55→20:55)
[2016-10-26] MEDS: CADEXOMER IODINE 40 GM TUBE TP SCH (08:56)
[2016-10-26] MEDS: NYSTATIN TOP POWDER 15 GM BOTTLE TP SCH ×8 (08:56→20:56)
[2016-10-26] MEDS: HYDROGEN PEROXIDE 480 ML BOTTLE TP SCH ×2 (08:56→20:56)
[2016-10-26] MEDS: Z GUARD REMEDY 4 OZ OINT TP SCH ×4 (08:56→20:56)
[2016-10-26] MEDS: HYDROGEL DRESSING 90 GM TUBE TP SCH ×2 (08:56→20:56)
[2016-10-26] MEDS: DAKINS HALF STRENGTH (0.25%) 480 ML BOTTLE TOP SCH ×2 (08:56→20:56)
[2016-10-26] MEDS: ZINC OXIDE 30 GM TUBE TP SCH ×2 (08:56→20:56)
[2016-10-26] MEDS: HYDROCODONE/APAP 5/325MG 1 EACH TABLET GT SCH ×4 (09:00→20:52)
[2016-10-26] MEDS: LISINOPRIL (20MG) 20 MG TABLET GT SCH (09:00)
[2016-10-26 12:05] VITALS: BP 160/82
[2016-10-26 18:18] VITALS: BP 144/82
[2016-10-26] MEDS: RENAL NOVASOURCE 1,000 ML BOTTLE GT PRN (21:09)
[2016-10-27 00:15] VITALS: BP 136/75
[2016-10-27] MEDS: BLOOD SUGAR DIAGNOSTIC 1 EACH STRIP IN SCH ×4 (00:19→18:34)
[2016-10-27] MEDS: INSULIN REGULAR, HUMAN 100 UNIT/ML 3 ML VIAL SQ PRN ×4 (00:20→18:36)
[2016-10-27] MEDS: IPRATROPIUM NEB FS 0.5 MG/2.5 ML AMPUL.NEB NEB SCH ×4 (01:56→20:01)
[2016-10-27] MEDS: ALBUTEROL FS 2.5 MG/3 ML VIAL.NEB NEB SCH ×4 (01:56→20:01)
[2016-10-27] MEDS: ESOMEPRAZOLE MAG TRIHYDRATE 20 MG CAPSULE.DR GT SCH (05:32)
[2016-10-27 06:39] VITALS: BP 133/78
[2016-10-27 07:56] VITALS: BP 133/88
[2016-10-27] MEDS: PROSOURCE / PROSTAT (PYXIS) 30 ML UDC GT SCH ×3 (09:00→17:00)
[2016-10-27] MEDS: LINEZOLID 600 MG TABLET GT SCH ×2 (09:00→20:56)
[2016-10-27] MEDS: HEPARIN SODIUM, PORCINE 5000 UNITS/1 ML VIAL SQ SCH ×2 (09:00→21:19)
[2016-10-27] MEDS: VIT B CMPLX 3/FA/VIT C/BIOTIN 1 TAB TABLET GT SCH (09:00)
[2016-10-27] MEDS: ASCORBIC ACID 500 MG TABLET GT SCH (09:00)
[2016-10-27] MEDS: CALCITRIOL ORAL SOLUTION 1 MCG/ML GT SCH (09:00)
[2016-10-27] MEDS: hydrALAZINE HCL 25 MG TABLET GT SCH ×2 (09:00→17:00)
[2016-10-27] MEDS: INSULIN GLARGINE, 100 UNIT/ML CARTRIDGE SQ SCH ×2 (09:00→21:19)
[2016-10-27] MEDS: LISINOPRIL (20MG) 20 MG TABLET GT SCH (09:00)
[2016-10-27] MEDS: LACTOBACILLUS RHAMNOSUS GG 1 EACH CAP.SPRINK GT SCH ×2 (09:00→17:00)
[2016-10-27] MEDS: METOPROLOL TARTRATE 50 MG TABLET GT SCH ×2 (09:00→22:00)
[2016-10-27 12:00] VITALS: BP 136/82
[2016-10-27] MEDS: HYDROCODONE/APAP 5/325MG 1 EACH TABLET GT SCH ×3 (14:00→21:18)
[2016-10-27] MEDS: CADEXOMER IODINE 40 GM TUBE TP SCH (15:00)
[2016-10-27] MEDS: ZINC OXIDE 30 GM TUBE TP SCH ×2 (15:00→21:20)
[2016-10-27] MEDS: DAKINS HALF STRENGTH (0.25%) 480 ML BOTTLE TOP SCH ×2 (15:00→21:19)
[2016-10-27] MEDS: HYDROGEL DRESSING 90 GM TUBE TP SCH ×2 (15:00→21:19)
[2016-10-27] MEDS: Z GUARD REMEDY 4 OZ OINT TP SCH ×4 (15:00→21:20)
[2016-10-27] MEDS: HYDROGEN PEROXIDE 480 ML BOTTLE TP SCH ×2 (15:00→21:19)
[2016-10-27] MEDS: NYSTATIN TOP POWDER 15 GM BOTTLE TP SCH ×8 (15:00→21:20)
[2016-10-27 18:00] VITALS: BP 161/94
[2016-10-27] MEDS: CLONIDINE HCL 0.2 MG TABLET GT PRN (18:36)
--- NOTE | 2016-10-27 19:30 | NUR ---
RN NOTES Seen and examined by Hellen Leija with [facility].
[2016-10-27 20:22] VITALS: BP 147/84
[2016-10-28] MEDS: BLOOD SUGAR DIAGNOSTIC 1 EACH STRIP IN SCH ×4 (00:13→18:31)
[2016-10-28] MEDS: INSULIN REGULAR, HUMAN 100 UNIT/ML 3 ML VIAL SQ PRN ×3 (00:14→18:37)
[2016-10-28 00:28] VITALS: BP 147/84
[2016-10-28] MEDS: IPRATROPIUM NEB FS 0.5 MG/2.5 ML AMPUL.NEB NEB SCH ×4 (01:33→19:30)
[2016-10-28] MEDS: ALBUTEROL FS 2.5 MG/3 ML VIAL.NEB NEB SCH ×4 (01:33→19:30)
[2016-10-28] MEDS: RENAL NOVASOURCE 1,000 ML BOTTLE GT PRN (05:28)
[2016-10-28] MEDS: ESOMEPRAZOLE MAG TRIHYDRATE 20 MG CAPSULE.DR GT SCH (05:29)
[2016-10-28 06:25] VITALS: BP 141/75
[2016-10-28 07:36] VITALS: BP 108/60
[2016-10-28] MEDS: hydrALAZINE HCL 25 MG TABLET GT SCH ×2 (08:26→17:00)
[2016-10-28] MEDS: PROSOURCE / PROSTAT (PYXIS) 30 ML UDC GT SCH ×3 (08:26→17:00)
[2016-10-28] MEDS: CALCITRIOL ORAL SOLUTION 1 MCG/ML GT SCH (08:26)
[2016-10-28] MEDS: LACTOBACILLUS RHAMNOSUS GG 1 EACH CAP.SPRINK GT SCH ×2 (08:26→17:00)
[2016-10-28] MEDS: VIT B CMPLX 3/FA/VIT C/BIOTIN 1 TAB TABLET GT SCH (08:26)
[2016-10-28] MEDS: LINEZOLID 600 MG TABLET GT SCH ×2 (09:00→20:37)
[2016-10-28] MEDS: HEPARIN SODIUM, PORCINE 5000 UNITS/1 ML VIAL SQ SCH ×2 (09:00→20:37)
[2016-10-28] MEDS: ASCORBIC ACID 500 MG TABLET GT SCH (09:00)
[2016-10-28] MEDS: INSULIN GLARGINE, 100 UNIT/ML CARTRIDGE SQ SCH ×2 (09:00→20:38)
--- NOTE | 2016-10-28 10:56 | NUR ---
Seen and examined by PANDA Stevens given at this time.
[2016-10-28 14:00] VITALS: BP 104/52
[2016-10-28] MEDS: HYDROCODONE/APAP 5/325MG 1 EACH TABLET GT SCH ×2 (14:30→20:40)
[2016-10-28] MEDS: Z GUARD REMEDY 4 OZ OINT TP SCH ×4 (15:00→20:39)
[2016-10-28] MEDS: NYSTATIN TOP POWDER 15 GM BOTTLE TP SCH ×8 (15:00→20:38)
[2016-10-28] MEDS: DAKINS HALF STRENGTH (0.25%) 480 ML BOTTLE TOP SCH ×2 (15:00→20:38)
[2016-10-28] MEDS: CADEXOMER IODINE 40 GM TUBE TP SCH (15:00)
[2016-10-28] MEDS: HYDROGEN PEROXIDE 480 ML BOTTLE TP SCH ×2 (15:00→20:38)
[2016-10-28] MEDS: ZINC OXIDE 30 GM TUBE TP SCH ×2 (15:00→20:39)
[2016-10-28] MEDS: HYDROGEL DRESSING 90 GM TUBE TP SCH ×2 (15:00→20:38)
[2016-10-28 18:00] VITALS: BP 117/67
[2016-10-28 19:05] LABS: BASOPHILS % (AUTO) 0.1 % (0.0-2.0); EOSINOPHILS # (AUTO) 0.1 /CMM (0.0-0.7); EOSINOPHILS % (AUTO) 1.2 % (0.0-6.0); HEMATOCRIT 36 % (33-45); HEMOGLOBIN 11.8 g/dL (11.5-14.8); LYMPHOCYTES % (AUTO) 11.6 % (20.0-44.0); MEAN CORPUSCULAR HEMOGLOBIN 32 PG (26.0-33.0); MEAN CORPUSCULAR HGB CONC 33 g/dl (31.0-36.0); MEAN CORPUSCULAR VOLUME 97 fL (82-100); MONOCYTES # (AUTO) 0.4 /CMM (0.1-1.30); MONOCYTES % (AUTO) 5.3 % (2.0-12.0); NEUTROPHILS # (AUTO) 6.7 /CMM (1.8-8.9); NEUTROPHILS % (AUTO) 81.8 % (43.0-81.0); PLATELET COUNT (AUTO) 171 /CMM (150-450); RDW COEFFICIENT OF VARIATION 16.2 (11.5-15.0); RED BLOOD CELL COUNT(AUTO) 3.67 MIL/uL (4.0-5.2); WHITE BLOOD COUNT (AUTO) 8.2 K/uL (4.3-11.0)
[2016-10-28 19:47] VITALS: BP 98/66
[2016-10-28] MEDS: METOPROLOL TARTRATE 50 MG TABLET GT SCH (22:00)
[2016-10-29] MEDS: BLOOD SUGAR DIAGNOSTIC 1 EACH STRIP IN SCH ×5 (00:28→23:43)
[2016-10-29] MEDS: INSULIN REGULAR, HUMAN 100 UNIT/ML 3 ML VIAL SQ PRN ×5 (00:29→23:44)
[2016-10-29 00:38] VITALS: BP 112/69
[2016-10-29] MEDS: IPRATROPIUM NEB FS 0.5 MG/2.5 ML AMPUL.NEB NEB SCH ×4 (01:32→20:25)
[2016-10-29] MEDS: ALBUTEROL FS 2.5 MG/3 ML VIAL.NEB NEB SCH ×4 (01:32→20:25)
[2016-10-29] MEDS: ESOMEPRAZOLE MAG TRIHYDRATE 20 MG CAPSULE.DR GT SCH (05:27)
[2016-10-29 06:19] VITALS: BP 128/75
[2016-10-29 06:52] LABS: EOSINOPHILS # (AUTO) 0.1 /CMM (0.0-0.7); EOSINOPHILS % (AUTO) 0.9 % (0.0-6.0); HEMATOCRIT 37 % (33-45); HEMOGLOBIN 12.5 g/dL (11.5-14.8); LYMPHOCYTES # (AUTO) 1.1 /CMM (0.8-4.8); LYMPHOCYTES % (AUTO) 14.5 % (20.0-44.0); MEAN CORPUSCULAR HEMOGLOBIN 33 PG (26.0-33.0); MEAN CORPUSCULAR HGB CONC 34 g/dl (31.0-36.0); MEAN CORPUSCULAR VOLUME 99 fL (82-100); MONOCYTES # (AUTO) 0.8 /CMM (0.1-1.30); MONOCYTES % (AUTO) 10.2 % (2.0-12.0); NEUTROPHILS # (AUTO) 5.8 /CMM (1.8-8.9); NEUTROPHILS % (AUTO) 74.4 % (43.0-81.0); PLATELET COUNT (AUTO) 172 /CMM (150-450); RDW COEFFICIENT OF VARIATION 16.4 (11.5-15.0); RED BLOOD CELL COUNT(AUTO) 3.74 MIL/uL (4.0-5.2); WHITE BLOOD COUNT (AUTO) 7.7 K/uL (4.3-11.0)
[2016-10-29 08:24] VITALS: BP 119/65
[2016-10-29] MEDS: hydrALAZINE HCL 25 MG TABLET GT SCH ×2 (08:24→17:00)
[2016-10-29] MEDS: CALCITRIOL ORAL SOLUTION 1 MCG/ML GT SCH (08:24)
[2016-10-29] MEDS: VIT B CMPLX 3/FA/VIT C/BIOTIN 1 TAB TABLET GT SCH (08:26)
[2016-10-29] MEDS: METOPROLOL TARTRATE 50 MG TABLET GT SCH ×2 (08:26→21:21)
[2016-10-29] MEDS: LACTOBACILLUS RHAMNOSUS GG 1 EACH CAP.SPRINK GT SCH ×2 (08:26→17:00)
[2016-10-29] MEDS: LISINOPRIL (20MG) 20 MG TABLET GT SCH (08:27)
[2016-10-29] MEDS: ASCORBIC ACID 500 MG TABLET GT SCH (08:27)
[2016-10-29] MEDS: PROSOURCE / PROSTAT (PYXIS) 30 ML UDC GT SCH ×3 (08:27→17:00)
[2016-10-29] MEDS: LINEZOLID 600 MG TABLET GT SCH ×2 (08:27→21:19)
[2016-10-29] MEDS: HEPARIN SODIUM, PORCINE 5000 UNITS/1 ML VIAL SQ SCH ×2 (08:30→21:20)
[2016-10-29] MEDS: INSULIN GLARGINE, 100 UNIT/ML CARTRIDGE SQ SCH ×2 (08:31→21:20)
--- NOTE | 2016-10-29 11:02 | NUR ---
Resent podiatry consult to Maxim at the wound center since Dr. Rojas never came.
[2016-10-29 12:00] VITALS: BP 121/71
[2016-10-29] MEDS: RENAL NOVASOURCE 1,000 ML BOTTLE GT PRN (13:08)
[2016-10-29] MEDS: CLONIDINE HCL 0.2 MG TABLET GT PRN ×2 (13:08→23:34)
[2016-10-29] MEDS: HYDROCODONE/APAP 5/325MG 1 EACH TABLET GT SCH ×2 (13:09→21:19)
[2016-10-29] MEDS: CADEXOMER IODINE 40 GM TUBE TP SCH (14:09)
[2016-10-29] MEDS: HYDROGEN PEROXIDE 480 ML BOTTLE TP SCH ×2 (14:09→21:20)
[2016-10-29] MEDS: DAKINS HALF STRENGTH (0.25%) 480 ML BOTTLE TOP SCH ×2 (14:09→21:20)
[2016-10-29] MEDS: HYDROGEL DRESSING 90 GM TUBE TP SCH ×2 (14:09→21:20)
[2016-10-29] MEDS: Z GUARD REMEDY 4 OZ OINT TP SCH ×4 (14:09→21:21)
[2016-10-29] MEDS: NYSTATIN TOP POWDER 15 GM BOTTLE TP SCH ×8 (14:09→21:21)
[2016-10-29] MEDS: ZINC OXIDE 30 GM TUBE TP SCH ×2 (14:09→21:21)
[2016-10-29 18:39] VITALS: BP 115/62
[2016-10-29 23:31] VITALS: BP 168/59
[2016-10-29] MEDS: LACTULOSE 10 G/15 ML UDC (PYXIS) GT PRN (23:43)
[2016-10-30 00:02] VITALS: BP 161/80
[2016-10-30] MEDS: IPRATROPIUM NEB FS 0.5 MG/2.5 ML AMPUL.NEB NEB SCH ×4 (01:50→19:40)
[2016-10-30] MEDS: ALBUTEROL FS 2.5 MG/3 ML VIAL.NEB NEB SCH ×4 (01:50→19:40)
[2016-10-30] MEDS: BLOOD SUGAR DIAGNOSTIC 1 EACH STRIP IN SCH ×4 (05:09→23:25)
[2016-10-30] MEDS: ESOMEPRAZOLE MAG TRIHYDRATE 20 MG CAPSULE.DR GT SCH (05:09)
[2016-10-30] MEDS: INSULIN REGULAR, HUMAN 100 UNIT/ML 3 ML VIAL SQ PRN ×3 (05:10→23:26)
[2016-10-30 06:03] VITALS: BP 148/83
[2016-10-30 07:45] VITALS: BP 163/78
[2016-10-30] MEDS: LINEZOLID 600 MG TABLET GT SCH ×2 (09:16→20:35)
[2016-10-30] MEDS: ASCORBIC ACID 500 MG TABLET GT SCH (09:16)
[2016-10-30] MEDS: hydrALAZINE HCL 25 MG TABLET GT SCH ×2 (09:16→17:36)
[2016-10-30] MEDS: CALCITRIOL ORAL SOLUTION 1 MCG/ML GT SCH (09:16)
[2016-10-30] MEDS: LACTOBACILLUS RHAMNOSUS GG 1 EACH CAP.SPRINK GT SCH ×2 (09:16→17:36)
[2016-10-30] MEDS: PROSOURCE / PROSTAT (PYXIS) 30 ML UDC GT SCH ×3 (09:16→17:36)
[2016-10-30] MEDS: VIT B CMPLX 3/FA/VIT C/BIOTIN 1 TAB TABLET GT SCH (09:16)
[2016-10-30] MEDS: INSULIN GLARGINE, 100 UNIT/ML CARTRIDGE SQ SCH ×2 (09:17→21:36)
[2016-10-30] MEDS: HEPARIN SODIUM, PORCINE 5000 UNITS/1 ML VIAL SQ SCH ×2 (09:17→20:37)
[2016-10-30 14:15] VITALS: BP 100/62
[2016-10-30] MEDS: HYDROCODONE/APAP 5/325MG 1 EACH TABLET GT SCH ×2 (14:20→20:37)
[2016-10-30] MEDS: NYSTATIN TOP POWDER 15 GM BOTTLE TP SCH ×8 (15:00→20:38)
[2016-10-30] MEDS: Z GUARD REMEDY 4 OZ OINT TP SCH ×4 (15:00→20:38)
[2016-10-30] MEDS: DAKINS HALF STRENGTH (0.25%) 480 ML BOTTLE TOP SCH ×2 (15:00→20:37)
[2016-10-30] MEDS: ZINC OXIDE 30 GM TUBE TP SCH ×2 (15:00→20:38)
[2016-10-30] MEDS: HYDROGEN PEROXIDE 480 ML BOTTLE TP SCH ×2 (15:00→20:38)
[2016-10-30] MEDS: HYDROGEL DRESSING 90 GM TUBE TP SCH ×2 (15:00→20:37)
[2016-10-30] MEDS: CADEXOMER IODINE 40 GM TUBE TP SCH (15:00)
--- NOTE | 2016-10-30 15:40 | NUR ---
Seen and examined by Hellen GUZMAN with no new order.
[2016-10-30] MEDS: RENAL NOVASOURCE 1,000 ML BOTTLE GT PRN (16:30)
[2016-10-30 18:00] VITALS: BP 140/65
[2016-10-30 19:45] VITALS: BP 143/79
[2016-10-30] MEDS: METOPROLOL TARTRATE 50 MG TABLET GT SCH (21:35)
[2016-10-31 00:03] VITALS: BP 140/79
[2016-10-31] MEDS: IPRATROPIUM NEB FS 0.5 MG/2.5 ML AMPUL.NEB NEB SCH ×4 (01:59→19:28)
[2016-10-31] MEDS: ALBUTEROL FS 2.5 MG/3 ML VIAL.NEB NEB SCH ×4 (01:59→19:28)
[2016-10-31] MEDS: BLOOD SUGAR DIAGNOSTIC 1 EACH STRIP IN SCH ×4 (05:21→23:30)
[2016-10-31] MEDS: ESOMEPRAZOLE MAG TRIHYDRATE 20 MG CAPSULE.DR GT SCH (05:21)
[2016-10-31] MEDS: INSULIN REGULAR, HUMAN 100 UNIT/ML 3 ML VIAL SQ PRN ×4 (05:22→23:31)
[2016-10-31 06:03] VITALS: BP 152/78
--- NOTE | 2016-10-31 07:31 | NUR ---
Received female faith pt on mechanical vent. Pt faith is secure. Vent is plugged into a red outlet, alarms are set and audible, disconnect alarm checked, BVM is at bedside. Addendum: 10/31/16 at 0732 by ANNMARIE CARVER RT Amended: Links added.
[2016-10-31 07:49] VITALS: BP 153/73
[2016-10-31 09:00] VITALS: BP 153/73
[2016-10-31] MEDS: LACTOBACILLUS RHAMNOSUS GG 1 EACH CAP.SPRINK GT SCH ×2 (09:28→17:00)
[2016-10-31] MEDS: CALCITRIOL ORAL SOLUTION 1 MCG/ML GT SCH (09:28)
[2016-10-31] MEDS: VIT B CMPLX 3/FA/VIT C/BIOTIN 1 TAB TABLET GT SCH (09:29)
[2016-10-31] MEDS: PROSOURCE / PROSTAT (PYXIS) 30 ML UDC GT SCH ×3 (09:29→17:00)
[2016-10-31] MEDS: LISINOPRIL (20MG) 20 MG TABLET GT SCH (09:29)
[2016-10-31] MEDS: METOPROLOL TARTRATE 50 MG TABLET GT SCH ×2 (09:29→21:14)
[2016-10-31] MEDS: ASCORBIC ACID 500 MG TABLET GT SCH (09:29)
[2016-10-31] MEDS: LINEZOLID 600 MG TABLET GT SCH ×2 (09:29→21:12)
[2016-10-31] MEDS: hydrALAZINE HCL 25 MG TABLET GT SCH ×2 (09:29→17:00)
[2016-10-31] MEDS: INSULIN GLARGINE, 100 UNIT/ML CARTRIDGE SQ SCH ×2 (09:30→21:13)
[2016-10-31] MEDS: HEPARIN SODIUM, PORCINE 5000 UNITS/1 ML VIAL SQ SCH ×2 (09:30→21:13)
[2016-10-31] MEDS: HYDROCODONE/APAP 5/325MG 1 EACH TABLET GT SCH ×2 (14:19→21:12)
[2016-10-31] MEDS: ZINC OXIDE 30 GM TUBE TP SCH ×2 (15:19→21:13)
[2016-10-31] MEDS: HYDROGEN PEROXIDE 480 ML BOTTLE TP SCH ×2 (15:19→21:13)
[2016-10-31] MEDS: DAKINS HALF STRENGTH (0.25%) 480 ML BOTTLE TOP SCH (15:19)
[2016-10-31] MEDS: CADEXOMER IODINE 40 GM TUBE TP SCH (15:19)
[2016-10-31] MEDS: Z GUARD REMEDY 4 OZ OINT TP SCH ×2 (15:19)
[2016-10-31] MEDS: NYSTATIN TOP POWDER 15 GM BOTTLE TP SCH ×8 (15:19→21:13)
[2016-10-31] MEDS: HYDROGEL DRESSING 90 GM TUBE TP SCH (15:19)
[2016-10-31] MEDS: RENAL NOVASOURCE 1,000 ML BOTTLE GT PRN (18:13)
[2016-10-31 19:20] VITALS: BP 141/83
--- NOTE | 2016-10-31 19:28 | NUR ---
RT Found patient on settings of AC12 500 +5 40% . Sat: 98% HR:90 . Patient is calm, secretions are small, thick and white. Ambu bag is at bedside. Addendum: 10/31/16 at 2134 by ASHLEY PACHECO RT Amended: Links added.
[2016-10-31] MEDS: LACTULOSE 10 G/15 ML UDC (PYXIS) GT PRN (21:14)
[2016-10-31 21:33] VITALS: BP 141/83
[2016-11-01 00:25] VITALS: BP 147/83
[2016-11-01] MEDS: IPRATROPIUM NEB FS 0.5 MG/2.5 ML AMPUL.NEB NEB SCH ×4 (01:21→18:57)
[2016-11-01] MEDS: ALBUTEROL FS 2.5 MG/3 ML VIAL.NEB NEB SCH ×4 (01:21→18:57)
[2016-11-01] MEDS: ESOMEPRAZOLE MAG TRIHYDRATE 20 MG CAPSULE.DR GT SCH (05:16)
[2016-11-01] MEDS: RENAL NOVASOURCE 1,000 ML BOTTLE GT PRN (05:27)
[2016-11-01] MEDS: BLOOD SUGAR DIAGNOSTIC 1 EACH STRIP IN SCH ×4 (05:27→23:41)
[2016-11-01] MEDS: INSULIN REGULAR, HUMAN 100 UNIT/ML 3 ML VIAL SQ PRN ×3 (05:28→23:42)
[2016-11-01 06:02] VITALS: BP 144/82
[2016-11-01 07:42] VITALS: BP 134/80
[2016-11-01] MEDS: LACTOBACILLUS RHAMNOSUS GG 1 EACH CAP.SPRINK GT SCH ×2 (08:31→17:39)
[2016-11-01] MEDS: PROSOURCE / PROSTAT (PYXIS) 30 ML UDC GT SCH ×3 (08:31→17:39)
[2016-11-01] MEDS: hydrALAZINE HCL 25 MG TABLET GT SCH ×2 (08:31→17:00)
[2016-11-01] MEDS: CALCITRIOL ORAL SOLUTION 1 MCG/ML GT SCH (08:31)
[2016-11-01] MEDS: VIT B CMPLX 3/FA/VIT C/BIOTIN 1 TAB TABLET GT SCH (08:31)
[2016-11-01] MEDS: LINEZOLID 600 MG TABLET GT SCH (08:31)
[2016-11-01] MEDS: ASCORBIC ACID 500 MG TABLET GT SCH (08:31)
[2016-11-01] MEDS: HEPARIN SODIUM, PORCINE 5000 UNITS/1 ML VIAL SQ SCH ×2 (08:32→20:38)
[2016-11-01] MEDS: INSULIN GLARGINE, 100 UNIT/ML CARTRIDGE SQ SCH ×2 (08:32→21:28)
--- NOTE | 2016-11-01 14:20 | NUR ---
Patient came left for dialysis and came back from Dialysis in stable condition. SBP on 90s when received. Kept the patient on Trendelenburg position. Will continue to monitor accordingly. Pressure dressing applied on dialysis site. No bleeding noted.
[2016-11-01] MEDS: HYDROCODONE/APAP 5/325MG 1 EACH TABLET GT SCH ×2 (14:54→20:36)
[2016-11-01] MEDS: CADEXOMER IODINE 40 GM TUBE TP SCH (16:00)
[2016-11-01] MEDS: ZINC OXIDE 30 GM TUBE TP SCH ×2 (16:00→20:38)
[2016-11-01] MEDS: HYDROGEN PEROXIDE 480 ML BOTTLE TP SCH ×2 (16:00→20:38)
[2016-11-01] MEDS: NYSTATIN TOP POWDER 15 GM BOTTLE TP SCH ×8 (16:00→20:38)
[2016-11-01] MEDS: CLONIDINE HCL 0.2 MG TABLET GT PRN (18:06)
[2016-11-01 18:37] VITALS: BP 128/74
[2016-11-01 19:31] VITALS: BP 134/90
[2016-11-01] MEDS: METOPROLOL TARTRATE 50 MG TABLET GT SCH (21:28)
[2016-11-02] MEDS: CLONIDINE HCL 0.2 MG TABLET GT PRN
[2016-11-02 00:01] VITALS: BP 161/66
[2016-11-02] MEDS: IPRATROPIUM NEB FS 0.5 MG/2.5 ML AMPUL.NEB NEB SCH ×4 (00:54→19:34)
[2016-11-02] MEDS: ALBUTEROL FS 2.5 MG/3 ML VIAL.NEB NEB SCH ×4 (00:54→19:35)
[2016-11-02] MEDS: ESOMEPRAZOLE MAG TRIHYDRATE 20 MG CAPSULE.DR GT SCH (05:16)
[2016-11-02] MEDS: RENAL NOVASOURCE 1,000 ML BOTTLE GT PRN (05:16)
[2016-11-02] MEDS: BLOOD SUGAR DIAGNOSTIC 1 EACH STRIP IN SCH ×3 (05:16→18:18)
[2016-11-02] MEDS: INSULIN REGULAR, HUMAN 100 UNIT/ML 3 ML VIAL SQ PRN ×3 (05:17→18:22)
[2016-11-02 06:10] VITALS: BP 144/59
[2016-11-02 08:00] VITALS: BP 148/72
[2016-11-02] MEDS: hydrALAZINE HCL 25 MG TABLET GT SCH ×2 (09:56→17:00)
[2016-11-02] MEDS: CALCITRIOL ORAL SOLUTION 1 MCG/ML GT SCH (09:56)
[2016-11-02] MEDS: METOPROLOL TARTRATE 50 MG TABLET GT SCH ×2 (09:57→21:45)
[2016-11-02] MEDS: VIT B CMPLX 3/FA/VIT C/BIOTIN 1 TAB TABLET GT SCH (09:57)
[2016-11-02] MEDS: LACTOBACILLUS RHAMNOSUS GG 1 EACH CAP.SPRINK GT SCH ×2 (09:57→17:00)
[2016-11-02] MEDS: ASCORBIC ACID 500 MG TABLET GT SCH (09:58)
[2016-11-02] MEDS: LISINOPRIL (20MG) 20 MG TABLET GT SCH (09:58)
[2016-11-02] MEDS: PROSOURCE / PROSTAT (PYXIS) 30 ML UDC GT SCH ×3 (09:58→17:00)
[2016-11-02] MEDS: INSULIN GLARGINE, 100 UNIT/ML CARTRIDGE SQ SCH ×2 (09:59→20:28)
[2016-11-02] MEDS: HEPARIN SODIUM, PORCINE 5000 UNITS/1 ML VIAL SQ SCH ×2 (09:59→20:27)
[2016-11-02] MEDS ORDERED: DAKINS HALF STRENGTH (0.25%) 480 ML BOTTLE TOP PRN (12:00)
[2016-11-02] MEDS ORDERED: HYDROGEL DRESSING 90 GM TUBE TP PRN (12:00)
[2016-11-02] MEDS: HYDROCODONE/APAP 5/325MG 1 EACH TABLET GT SCH ×2 (15:00→20:26)
[2016-11-02] MEDS: HYDROGEN PEROXIDE 480 ML BOTTLE TP SCH ×2 (16:00→20:28)
[2016-11-02] MEDS: CADEXOMER IODINE 40 GM TUBE TP SCH (16:00)
[2016-11-02] MEDS: ZINC OXIDE 30 GM TUBE TP SCH ×2 (16:00→20:28)
[2016-11-02] MEDS: NYSTATIN TOP POWDER 15 GM BOTTLE TP SCH ×8 (16:00→20:28)
[2016-11-02] MEDS: DAKINS HALF STRENGTH (0.25%) 480 ML BOTTLE TOP SCH ×2 (16:20→20:28)
[2016-11-02] MEDS: HYDROGEL DRESSING 90 GM TUBE TP SCH ×2 (16:21→20:28)
[2016-11-02 16:23] VITALS: BP 143/71
[2016-11-02 18:23] VITALS: BP 143/71
[2016-11-02 19:57] VITALS: BP 79/48
[2016-11-03] MEDS: BLOOD SUGAR DIAGNOSTIC 1 EACH STRIP IN SCH ×4 (00:03→18:15)
[2016-11-03] MEDS: INSULIN REGULAR, HUMAN 100 UNIT/ML 3 ML VIAL SQ PRN ×4 (00:04→18:17)
[2016-11-03 00:21] VITALS: BP 100/73
[2016-11-03] MEDS: ALBUTEROL FS 2.5 MG/3 ML VIAL.NEB NEB SCH ×4 (01:10→19:06)
[2016-11-03] MEDS: IPRATROPIUM NEB FS 0.5 MG/2.5 ML AMPUL.NEB NEB SCH ×4 (01:10→19:06)
[2016-11-03] MEDS: ESOMEPRAZOLE MAG TRIHYDRATE 20 MG CAPSULE.DR GT SCH (05:15)
[2016-11-03 06:03] VITALS: BP 115/78
[2016-11-03] MEDS: RENAL NOVASOURCE 1,000 ML BOTTLE GT PRN (06:32)
--- NOTE | 2016-11-03 07:27 | NUR ---
Received female faith pt on mechanical vent. Pt faith is secure. Vent is plugged into a red outlet, alarms are set and audible, disconnect alarm checked, BVM is at bedside. Addendum: 11/03/16 at 0729 by ANNMARIE CARVER RT Amended: Links added.
[2016-11-03 08:00] VITALS: BP 110/67
[2016-11-03] MEDS: METOPROLOL TARTRATE 50 MG TABLET GT SCH ×2 (09:00→22:00)
[2016-11-03] MEDS: LACTOBACILLUS RHAMNOSUS GG 1 EACH CAP.SPRINK GT SCH ×2 (09:00→17:00)
[2016-11-03] MEDS: VIT B CMPLX 3/FA/VIT C/BIOTIN 1 TAB TABLET GT SCH (09:00)
[2016-11-03] MEDS: LISINOPRIL (20MG) 20 MG TABLET GT SCH (09:00)
[2016-11-03] MEDS: NYSTATIN TOP POWDER 15 GM BOTTLE TP SCH ×8 (09:00→20:20)
[2016-11-03] MEDS: HEPARIN SODIUM, PORCINE 5000 UNITS/1 ML VIAL SQ SCH ×2 (09:00→20:17)
[2016-11-03] MEDS: hydrALAZINE HCL 25 MG TABLET GT SCH ×2 (09:00→17:00)
[2016-11-03] MEDS: CALCITRIOL ORAL SOLUTION 1 MCG/ML GT SCH (09:00)
[2016-11-03] MEDS: ASCORBIC ACID 500 MG TABLET GT SCH (09:00)
[2016-11-03] MEDS: PROSOURCE / PROSTAT (PYXIS) 30 ML UDC GT SCH ×3 (09:00→17:00)
[2016-11-03] MEDS: INSULIN GLARGINE, 100 UNIT/ML CARTRIDGE SQ SCH ×2 (09:00→20:18)
[2016-11-03] MEDS: HYDROCODONE/APAP 5/325MG 1 EACH TABLET GT SCH ×2 (15:00→20:16)
[2016-11-03] MEDS ORDERED: HYDROCODONE/APAP 5/325MG 1 EACH TABLET GT PRN (15:30)
[2016-11-03] MEDS: HYDROGEL DRESSING 90 GM TUBE TP SCH ×2 (16:00→20:19)
[2016-11-03] MEDS: ZINC OXIDE 30 GM TUBE TP SCH ×2 (16:00→20:20)
[2016-11-03] MEDS: HYDROGEN PEROXIDE 480 ML BOTTLE TP SCH ×2 (16:00→20:19)
[2016-11-03] MEDS: CADEXOMER IODINE 40 GM TUBE TP SCH (16:00)
[2016-11-03] MEDS: DAKINS HALF STRENGTH (0.25%) 480 ML BOTTLE TOP SCH ×2 (16:00→20:19)
[2016-11-03 18:18] VITALS: BP 122/70
[2016-11-03 19:50] VITALS: BP 95/48
[2016-11-04] MEDS: BLOOD SUGAR DIAGNOSTIC 1 EACH STRIP IN SCH ×4 (00:12→18:46)
[2016-11-04] MEDS: INSULIN REGULAR, HUMAN 100 UNIT/ML 3 ML VIAL SQ PRN ×3 (00:13→18:46)
[2016-11-04 00:41] VITALS: BP 118/62
[2016-11-04] MEDS: IPRATROPIUM NEB FS 0.5 MG/2.5 ML AMPUL.NEB NEB SCH ×4 (01:40→19:40)
[2016-11-04] MEDS: ALBUTEROL FS 2.5 MG/3 ML VIAL.NEB NEB SCH ×4 (01:40→19:40)
[2016-11-04] MEDS: ESOMEPRAZOLE MAG TRIHYDRATE 20 MG CAPSULE.DR GT SCH (05:07)
[2016-11-04 06:03] VITALS: BP 110/62
--- NOTE | 2016-11-04 07:19 | NUR ---
Female faith pt received on mechanical vent. Pt faith is secure. Vent is plugged into a red outlet, alarms are set and audible, disconnect alarm checked, BVM is at bedside. Addendum: 11/04/16 at 0720 by ANNMARIE CARVER RT Amended: Links added.
[2016-11-04 08:11] VITALS: BP_SYST 52
[2016-11-04 08:14] VITALS: BP 95/52
[2016-11-04] MEDS: HYDROGEN PEROXIDE 480 ML BOTTLE TP SCH ×2 (09:00→20:09)
[2016-11-04] MEDS: hydrALAZINE HCL 25 MG TABLET GT SCH ×2 (09:00→17:00)
[2016-11-04] MEDS: ASCORBIC ACID 500 MG TABLET GT SCH (09:31)
[2016-11-04] MEDS: VIT B CMPLX 3/FA/VIT C/BIOTIN 1 TAB TABLET GT SCH (09:31)
[2016-11-04] MEDS: LACTOBACILLUS RHAMNOSUS GG 1 EACH CAP.SPRINK GT SCH ×2 (09:31→17:00)
[2016-11-04] MEDS: PROSOURCE / PROSTAT (PYXIS) 30 ML UDC GT SCH ×3 (09:31→17:00)
[2016-11-04] MEDS: CALCITRIOL ORAL SOLUTION 1 MCG/ML GT SCH (09:31)
[2016-11-04] MEDS: HEPARIN SODIUM, PORCINE 5000 UNITS/1 ML VIAL SQ SCH ×2 (09:32→20:08)
[2016-11-04] MEDS: INSULIN GLARGINE, 100 UNIT/ML CARTRIDGE SQ SCH ×2 (09:34→20:09)
[2016-11-04] MEDS: HYDROCODONE/APAP 5/325MG 1 EACH TABLET GT SCH ×2 (15:00→20:08)
[2016-11-04] MEDS: CADEXOMER IODINE 40 GM TUBE TP SCH (16:00)
[2016-11-04] MEDS: NYSTATIN TOP POWDER 15 GM BOTTLE TP SCH ×8 (16:00→20:10)
[2016-11-04] MEDS: DAKINS HALF STRENGTH (0.25%) 480 ML BOTTLE TOP SCH ×2 (16:00→20:09)
[2016-11-04] MEDS: HYDROGEL DRESSING 90 GM TUBE TP SCH ×2 (16:00→20:09)
[2016-11-04 19:14] VITALS: BP 110/53
[2016-11-04 19:38] VITALS: BP 147/59
[2016-11-04] MEDS: METOPROLOL TARTRATE 50 MG TABLET GT SCH (22:30)
[2016-11-05] MEDS: BLOOD SUGAR DIAGNOSTIC 1 EACH STRIP IN SCH ×5 (00:04→23:44)
[2016-11-05] MEDS: INSULIN REGULAR, HUMAN 100 UNIT/ML 3 ML VIAL SQ PRN ×5 (00:04→23:45)
[2016-11-05 00:21] VITALS: BP 132/59
[2016-11-05] MEDS: ALBUTEROL FS 2.5 MG/3 ML VIAL.NEB NEB SCH ×4 (02:14→19:45)
[2016-11-05] MEDS: IPRATROPIUM NEB FS 0.5 MG/2.5 ML AMPUL.NEB NEB SCH ×4 (02:14→19:45)
[2016-11-05] MEDS: ESOMEPRAZOLE MAG TRIHYDRATE 20 MG CAPSULE.DR GT SCH (05:10)
[2016-11-05 06:03] VITALS: BP 136/62
[2016-11-05 07:59] VITALS: BP 111/57
[2016-11-05] MEDS: hydrALAZINE HCL 25 MG TABLET GT SCH ×2 (09:00→16:24)
[2016-11-05] MEDS: METOPROLOL TARTRATE 50 MG TABLET GT SCH ×2 (09:20→22:10)
[2016-11-05] MEDS: LACTOBACILLUS RHAMNOSUS GG 1 EACH CAP.SPRINK GT SCH ×2 (09:20→16:24)
[2016-11-05] MEDS: VIT B CMPLX 3/FA/VIT C/BIOTIN 1 TAB TABLET GT SCH (09:20)
[2016-11-05] MEDS: CALCITRIOL ORAL SOLUTION 1 MCG/ML GT SCH (09:20)
[2016-11-05] MEDS: PROSOURCE / PROSTAT (PYXIS) 30 ML UDC GT SCH ×3 (09:21→16:24)
[2016-11-05] MEDS: ASCORBIC ACID 500 MG TABLET GT SCH (09:21)
[2016-11-05] MEDS: HEPARIN SODIUM, PORCINE 5000 UNITS/1 ML VIAL SQ SCH ×2 (09:21→21:49)
[2016-11-05] MEDS: HYDROCODONE/APAP 5/325MG 1 EACH TABLET GT SCH ×2 (09:21→21:48)
[2016-11-05] MEDS: LISINOPRIL (20MG) 20 MG TABLET GT SCH (09:21)
[2016-11-05] MEDS: DAKINS HALF STRENGTH (0.25%) 480 ML BOTTLE TOP SCH ×2 (09:22→21:50)
[2016-11-05] MEDS: INSULIN GLARGINE, 100 UNIT/ML CARTRIDGE SQ SCH ×2 (09:22→21:49)
[2016-11-05] MEDS: CADEXOMER IODINE 40 GM TUBE TP SCH (09:22)
[2016-11-05] MEDS: HYDROGEN PEROXIDE 480 ML BOTTLE TP SCH ×2 (09:22→21:50)
[2016-11-05] MEDS: HYDROGEL DRESSING 90 GM TUBE TP SCH ×2 (09:22→21:50)
[2016-11-05] MEDS: NYSTATIN TOP POWDER 15 GM BOTTLE TP SCH ×8 (09:23→21:50)
[2016-11-05 14:37] VITALS: BP 118/60
[2016-11-05] MEDS: RENAL NOVASOURCE 1,000 ML BOTTLE GT PRN (17:37)
[2016-11-05 18:06] VITALS: BP 123/64
[2016-11-05 19:58] VITALS: BP 113/60
[2016-11-06 00:02] VITALS: BP 137/70
[2016-11-06] MEDS: ALBUTEROL FS 2.5 MG/3 ML VIAL.NEB NEB SCH ×4 (01:46→19:43)
[2016-11-06] MEDS: IPRATROPIUM NEB FS 0.5 MG/2.5 ML AMPUL.NEB NEB SCH ×4 (01:46→19:43)
[2016-11-06] MEDS: ESOMEPRAZOLE MAG TRIHYDRATE 20 MG CAPSULE.DR GT SCH (05:19)
[2016-11-06] MEDS: BLOOD SUGAR DIAGNOSTIC 1 EACH STRIP IN SCH ×3 (05:19→17:48)
[2016-11-06] MEDS: INSULIN REGULAR, HUMAN 100 UNIT/ML 3 ML VIAL SQ PRN ×2 (05:21→17:50)
[2016-11-06 06:13] VITALS: BP 150/67
[2016-11-06 08:00] VITALS: BP 135/55
[2016-11-06] MEDS: hydrALAZINE HCL 25 MG TABLET GT SCH ×2 (08:56→16:37)
[2016-11-06] MEDS: PROSOURCE / PROSTAT (PYXIS) 30 ML UDC GT SCH ×3 (08:56→16:37)
[2016-11-06] MEDS: HYDROCODONE/APAP 5/325MG 1 EACH TABLET GT SCH ×2 (08:56→21:00)
[2016-11-06] MEDS: CALCITRIOL ORAL SOLUTION 1 MCG/ML GT SCH (08:56)
[2016-11-06] MEDS: LACTOBACILLUS RHAMNOSUS GG 1 EACH CAP.SPRINK GT SCH ×2 (08:56→16:37)
[2016-11-06] MEDS: VIT B CMPLX 3/FA/VIT C/BIOTIN 1 TAB TABLET GT SCH (08:56)
[2016-11-06] MEDS: ASCORBIC ACID 500 MG TABLET GT SCH (08:57)
[2016-11-06] MEDS: NYSTATIN TOP POWDER 15 GM BOTTLE TP SCH ×11 (09:00→21:00)
[2016-11-06] MEDS: HEPARIN SODIUM, PORCINE 5000 UNITS/1 ML VIAL SQ SCH ×2 (09:00→20:35)
[2016-11-06] MEDS: INSULIN GLARGINE, 100 UNIT/ML CARTRIDGE SQ SCH ×2 (09:01→20:36)
[2016-11-06] MEDS: CADEXOMER IODINE 40 GM TUBE TP SCH (09:38)
[2016-11-06] MEDS: DAKINS HALF STRENGTH (0.25%) 480 ML BOTTLE TOP SCH ×2 (09:38→20:36)
[2016-11-06] MEDS: HYDROGEN PEROXIDE 480 ML BOTTLE TP SCH ×2 (09:38→21:00)
[2016-11-06] MEDS: HYDROGEL DRESSING 90 GM TUBE TP SCH ×2 (09:38→21:00)
[2016-11-06 18:34] VITALS: BP 108/57
[2016-11-06 19:25] VITALS: BP 100/50
[2016-11-06] MEDS: ZINC OXIDE 30 GM TUBE TP SCH (21:00)
[2016-11-06] MEDS: METOPROLOL TARTRATE 50 MG TABLET GT SCH (22:12)
[2016-11-07] VITALS: BP 111/73
[2016-11-07] MEDS: BLOOD SUGAR DIAGNOSTIC 1 EACH STRIP IN SCH ×4 (00:20→17:47)
[2016-11-07] MEDS: CLONIDINE HCL 0.2 MG TABLET GT PRN (00:20)
[2016-11-07] MEDS: INSULIN REGULAR, HUMAN 100 UNIT/ML 3 ML VIAL SQ PRN ×4 (00:22→17:48)
[2016-11-07] MEDS: IPRATROPIUM NEB FS 0.5 MG/2.5 ML AMPUL.NEB NEB SCH ×4 (00:42→19:29)
[2016-11-07] MEDS: ALBUTEROL FS 2.5 MG/3 ML VIAL.NEB NEB SCH ×4 (00:42→19:29)
[2016-11-07] MEDS: ESOMEPRAZOLE MAG TRIHYDRATE 20 MG CAPSULE.DR GT SCH (05:27)
[2016-11-07] MEDS: RENAL NOVASOURCE 1,000 ML BOTTLE GT PRN (05:31)
[2016-11-07 06:00] VITALS: BP 117/60
[2016-11-07 07:56] VITALS: BP 132/65
[2016-11-07] MEDS: hydrALAZINE HCL 25 MG TABLET GT SCH ×2 (08:47→17:47)
[2016-11-07] MEDS: CALCITRIOL ORAL SOLUTION 1 MCG/ML GT SCH (08:47)
[2016-11-07] MEDS: VIT B CMPLX 3/FA/VIT C/BIOTIN 1 TAB TABLET GT SCH (08:47)
[2016-11-07] MEDS: LACTOBACILLUS RHAMNOSUS GG 1 EACH CAP.SPRINK GT SCH ×2 (08:47→17:47)
[2016-11-07] MEDS: METOPROLOL TARTRATE 50 MG TABLET GT SCH ×2 (08:47→21:36)
[2016-11-07] MEDS: HYDROCODONE/APAP 5/325MG 1 EACH TABLET GT SCH ×2 (08:47→21:33)
[2016-11-07] MEDS: ASCORBIC ACID 500 MG TABLET GT SCH (08:48)
[2016-11-07] MEDS: LISINOPRIL (20MG) 20 MG TABLET GT SCH (08:48)
[2016-11-07] MEDS: PROSOURCE / PROSTAT (PYXIS) 30 ML UDC GT SCH ×3 (08:48→17:47)
[2016-11-07] MEDS: HEPARIN SODIUM, PORCINE 5000 UNITS/1 ML VIAL SQ SCH ×2 (08:48→21:34)
[2016-11-07] MEDS: INSULIN GLARGINE, 100 UNIT/ML CARTRIDGE SQ SCH ×2 (08:49→21:34)
[2016-11-07] MEDS: CADEXOMER IODINE 40 GM TUBE TP SCH (09:30)
[2016-11-07] MEDS: DAKINS HALF STRENGTH (0.25%) 480 ML BOTTLE TOP SCH ×2 (09:30→21:34)
[2016-11-07] MEDS: HYDROGEL DRESSING 90 GM TUBE TP SCH ×2 (09:30→21:34)
[2016-11-07] MEDS: ZINC OXIDE 30 GM TUBE TP SCH ×2 (09:30→21:35)
[2016-11-07] MEDS: NYSTATIN TOP POWDER 15 GM BOTTLE TP SCH ×12 (09:30→21:35)
[2016-11-07] MEDS: HYDROGEN PEROXIDE 480 ML BOTTLE TP SCH ×2 (09:30→21:35)
[2016-11-07 12:00] VITALS: BP 129/57
--- NOTE | 2016-11-07 14:59 | NUR ---
Spoke to the resident's boyfriend to follow up and see if he has been able to go to the social security office to inquire about what benefits resident is entitled to and see if resident is qualified for medicare part b. Per boyfriend, he had wanted to transfer the resident to a SNF that is closer to his home but he stated that he has not had enough time to go to the social security office to inquire.
--- NOTE | 2016-11-07 15:24 | NUR ---
Responsible democrat, John, called to ask how resident is doing. Informed him as well about room transfer and verbalized understanding.
[2016-11-07 18:58] VITALS: BP 133/63
[2016-11-07 20:40] VITALS: BP 99/45
[2016-11-07] MEDS: ACETAMINOPHEN 650 MG/20 ML UDC- FOR SA PATIENTS ONLY GT PRN (22:30)
[2016-11-08] MEDS: BLOOD SUGAR DIAGNOSTIC 1 EACH STRIP IN SCH ×5 (00:45→23:21)
[2016-11-08] MEDS: INSULIN REGULAR, HUMAN 100 UNIT/ML 3 ML VIAL SQ PRN ×4 (00:46→23:22)
[2016-11-08 00:50] VITALS: BP 140/63
[2016-11-08] MEDS: IPRATROPIUM NEB FS 0.5 MG/2.5 ML AMPUL.NEB NEB SCH ×4 (01:39→19:37)
[2016-11-08] MEDS: ALBUTEROL FS 2.5 MG/3 ML VIAL.NEB NEB SCH ×4 (01:39→19:37)
[2016-11-08] MEDS: ESOMEPRAZOLE MAG TRIHYDRATE 20 MG CAPSULE.DR GT SCH (05:16)
[2016-11-08] MEDS: RENAL NOVASOURCE 1,000 ML BOTTLE GT PRN (05:27)
[2016-11-08 06:35] VITALS: BP 141/80
[2016-11-08 07:26] VITALS: BP 129/68
[2016-11-08 07:29] VITALS: BP 129/68
[2016-11-08] MEDS: CALCITRIOL ORAL SOLUTION 1 MCG/ML GT SCH (08:17)
[2016-11-08] MEDS: hydrALAZINE HCL 25 MG TABLET GT SCH ×2 (08:17→16:13)
[2016-11-08] MEDS: LACTOBACILLUS RHAMNOSUS GG 1 EACH CAP.SPRINK GT SCH ×2 (08:18→16:14)
[2016-11-08] MEDS: ASCORBIC ACID 500 MG TABLET GT SCH (08:18)
[2016-11-08] MEDS: VIT B CMPLX 3/FA/VIT C/BIOTIN 1 TAB TABLET GT SCH (08:18)
[2016-11-08] MEDS: PROSOURCE / PROSTAT (PYXIS) 30 ML UDC GT SCH ×3 (08:18→16:14)
[2016-11-08] MEDS: INSULIN GLARGINE, 100 UNIT/ML CARTRIDGE SQ SCH ×2 (08:21→20:18)
[2016-11-08] MEDS: HEPARIN SODIUM, PORCINE 5000 UNITS/1 ML VIAL SQ SCH ×2 (08:21→20:17)
[2016-11-08] MEDS: HYDROCODONE/APAP 5/325MG 1 EACH TABLET GT SCH ×2 (14:58→20:51)
[2016-11-08] MEDS: DAKINS HALF STRENGTH (0.25%) 480 ML BOTTLE TOP SCH ×2 (16:00→21:02)
[2016-11-08] MEDS: CADEXOMER IODINE 40 GM TUBE TP SCH (16:00)
[2016-11-08] MEDS: ZINC OXIDE 30 GM TUBE TP SCH ×2 (16:00→20:12)
[2016-11-08] MEDS: HYDROGEL DRESSING 90 GM TUBE TP SCH ×2 (16:00→21:02)
[2016-11-08] MEDS: HYDROGEN PEROXIDE 480 ML BOTTLE TP SCH ×2 (16:00→20:12)
[2016-11-08] MEDS: NYSTATIN TOP POWDER 15 GM BOTTLE TP SCH ×12 (16:00→20:12)
[2016-11-08 17:27] VITALS: BP 105/56
[2016-11-08] MEDS: CLONIDINE HCL 0.2 MG TABLET GT PRN (17:47)
[2016-11-08] MEDS: METOPROLOL TARTRATE 50 MG TABLET GT SCH (21:02)
[2016-11-08 21:49] VITALS: BP 101/47
[2016-11-09 00:22] VITALS: BP 141/50
[2016-11-09] MEDS: ALBUTEROL FS 2.5 MG/3 ML VIAL.NEB NEB SCH ×4 (01:42→20:23)
[2016-11-09] MEDS: IPRATROPIUM NEB FS 0.5 MG/2.5 ML AMPUL.NEB NEB SCH ×4 (01:42→20:23)
[2016-11-09] MEDS: BLOOD SUGAR DIAGNOSTIC 1 EACH STRIP IN SCH ×3 (05:18→17:58)
[2016-11-09] MEDS: ESOMEPRAZOLE MAG TRIHYDRATE 20 MG CAPSULE.DR GT SCH (05:18)
[2016-11-09] MEDS: RENAL NOVASOURCE 1,000 ML BOTTLE GT PRN (05:18)
[2016-11-09] MEDS: INSULIN REGULAR, HUMAN 100 UNIT/ML 3 ML VIAL SQ PRN ×3 (05:19→17:59)
[2016-11-09 06:05] VITALS: BP 115/71
[2016-11-09 08:09] VITALS: BP 93/41
[2016-11-09] MEDS: LISINOPRIL (20MG) 20 MG TABLET GT SCH (09:00)
[2016-11-09] MEDS: CADEXOMER IODINE 40 GM TUBE TP SCH (09:00)
[2016-11-09] MEDS: NYSTATIN TOP POWDER 15 GM BOTTLE TP SCH ×12 (09:00→21:05)
[2016-11-09] MEDS: HYDROGEN PEROXIDE 480 ML BOTTLE TP SCH ×2 (09:00→21:05)
[2016-11-09] MEDS: HYDROGEL DRESSING 90 GM TUBE TP SCH ×2 (09:00→21:04)
[2016-11-09] MEDS: hydrALAZINE HCL 25 MG TABLET GT SCH ×2 (09:00→17:00)
[2016-11-09] MEDS: DAKINS HALF STRENGTH (0.25%) 480 ML BOTTLE TOP SCH ×2 (09:00→21:04)
[2016-11-09] MEDS: ZINC OXIDE 30 GM TUBE TP SCH ×2 (09:00→21:05)
[2016-11-09] MEDS: METOPROLOL TARTRATE 50 MG TABLET GT SCH ×2 (09:00→21:06)
[2016-11-09] MEDS: LACTOBACILLUS RHAMNOSUS GG 1 EACH CAP.SPRINK GT SCH ×2 (09:56→16:35)
[2016-11-09] MEDS: CALCITRIOL ORAL SOLUTION 1 MCG/ML GT SCH (09:56)
[2016-11-09] MEDS: HYDROCODONE/APAP 5/325MG 1 EACH TABLET GT SCH ×2 (09:56→21:03)
[2016-11-09] MEDS: VIT B CMPLX 3/FA/VIT C/BIOTIN 1 TAB TABLET GT SCH (09:56)
[2016-11-09] MEDS: PROSOURCE / PROSTAT (PYXIS) 30 ML UDC GT SCH ×3 (09:57→16:35)
[2016-11-09] MEDS: ASCORBIC ACID 500 MG TABLET GT SCH (09:57)
[2016-11-09] MEDS: HEPARIN SODIUM, PORCINE 5000 UNITS/1 ML VIAL SQ SCH ×2 (09:57→21:03)
[2016-11-09] MEDS: INSULIN GLARGINE, 100 UNIT/ML CARTRIDGE SQ SCH ×2 (09:59→21:04)
--- NOTE | 2016-11-09 10:15 | NUR ---
Patient noted blood pressure in the low side BP 88/38, R20, Pulse 80-88 T-98.2 O2 saturation 98%. No SOB noted no s/sx of acute respiratory distress noted. On ventilator machine at prescribed settings, tolerated-well. No manifestation of pain/discomfort noted. Kept patient in comfortable position. Placed a call to Dr. Burton on-call for Dr. Castro notified patient change of condition also informed MD that pt is on hemodialysis every T-TH-S. Dr. Burton ordered CXR, CBC & CMP stat, orders noted and carried out. Left voice message to RP John Woodall . Awaiting call back.
[2016-11-09 12:25] LABS: BASOPHILS % (AUTO) 0.1 % (0.0-2.0); EOSINOPHILS # (AUTO) 0.2 /CMM (0.0-0.7); HEMATOCRIT 27 % (33-45); HEMOGLOBIN 8.9 g/dL (11.5-14.8); LYMPHOCYTES # (AUTO) 1.3 /CMM (0.8-4.8); LYMPHOCYTES % (AUTO) 6.9 % (20.0-44.0); MEAN CORPUSCULAR HEMOGLOBIN 32 PG (26.0-33.0); MEAN CORPUSCULAR HGB CONC 33 g/dl (31.0-36.0); MEAN CORPUSCULAR VOLUME 98 fL (82-100); MONOCYTES # (AUTO) 0.5 /CMM (0.1-1.30); MONOCYTES % (AUTO) 2.5 % (2.0-12.0); NEUTROPHILS # (AUTO) 16.7 /CMM (1.8-8.9); NEUTROPHILS % (AUTO) 89.5 % (43.0-81.0); PLATELET COUNT (AUTO) 207 /CMM (150-450); RDW COEFFICIENT OF VARIATION 17.3 (11.5-15.0); RED BLOOD CELL COUNT(AUTO) 2.78 MIL/uL (4.0-5.2); WHITE BLOOD COUNT (AUTO) 18.6 K/uL (4.3-11.0)
[2016-11-09 12:42] LABS: ALBUMIN 2.1 g/dL (3.4-5.0); BILIRUBIN,TOTAL 0.3 mg/dL (0.2-1.0); CALCIUM, SERUM 9.8 mg/dL (8.5-10.1); POTASSIUM 3.6 mmol/L (3.5-5.1); TOTAL PROTEIN, SERUM 7.7 g/dL (6.4-8.2)
[2016-11-09 12:50] LABS: MYELOCYTES % 5 % (0-0)
[2016-11-09 12:51] LABS: BAND % (MANUAL) 12 % (0.0-5.0); LYMPHOCYTES % (MANUAL) 16 % (16-48); MONOCYTES % (MANUAL) 4 % (0-11.0); NEUTROPHILS % (MANUAL) 63 (42-76)
--- NOTE | 2016-11-09 13:35 | NUR ---
Relayed chest x-ray, CBC and CMP lab results to Dr. Wall on -call for Dr. Catsro with new orders of urine culture & blood culture x 2 today, CBC tomorrow. Start Vancomycin 1 gm IVPB x 1 dose now and Vancomycin pharmacy to dose orders noted and carried out. Spoke to Eileen Pharmacist to start from the E-kit. Left voice message to oJhn Carroll.
[2016-11-09 16:28] VITALS: BP 138/60
[2016-11-09] MEDS ORDERED: VANCOMYCIN 1 GM in IV D5W 250ml IV ONE (16:30)
--- NOTE | 2016-11-09 17:32 | NUR ---
Received pharmacy recommendation spoke to Pharmacist Eileen with orders of the following Vancomycin 750mg IVPB TIW on dialysis days - & Sat to be given after dialysis days at 1600 Trough on 3rd dose before dialysis. MD aware, orders noted and carried out.
--- NOTE | 2016-11-09 18:13 | NUR ---
Patient blood pressure still in the low side BP 83/39, P86, R20, T98.9 O2 saturation at 99%. Paged Dr. Guzmán on-call for Dr. Castro. Awaiting response from Dr. Guzmán.
[2016-11-09 18:16] VITALS: BP 83/39
--- NOTE | 2016-11-09 18:30 | NUR ---
Dr. Guzmán on-call for Dr. Castro called back, notified patient latest BP 81/32 with new order of Albumin 100cc IV x 1 dose now noted and carried out. Left voice message to RP.
--- NOTE | 2016-11-09 20:00 | NUR ---
RN NOTES Received clarification of albumin order from Dr. Guzmán Albumin 25% @100ml/hr IV for hypotension, faxed to pharmacy. Will await for medication from [facility] pharmacy. B/P 92/50, HR 90. Will continue to monitor.
[2016-11-09 20:10] VITALS: BP 92/50
[2016-11-09] MEDS ORDERED: ALBUMIN 25% 25 GM in PREMIX 1 EA IV PRN (20:30)
[2016-11-10 00:06] VITALS: BP 96/58
[2016-11-10] MEDS: BLOOD SUGAR DIAGNOSTIC 1 EACH STRIP IN SCH ×4 (00:08→18:02)
[2016-11-10] MEDS: INSULIN REGULAR, HUMAN 100 UNIT/ML 3 ML VIAL SQ PRN ×4 (00:09→18:21)
[2016-11-10] MEDS: IPRATROPIUM NEB FS 0.5 MG/2.5 ML AMPUL.NEB NEB SCH ×4 (01:13→19:30)
[2016-11-10] MEDS: ALBUTEROL FS 2.5 MG/3 ML VIAL.NEB NEB SCH ×4 (01:13→19:30)
[2016-11-10] MEDS: ESOMEPRAZOLE MAG TRIHYDRATE 20 MG CAPSULE.DR GT SCH (05:44)
[2016-11-10 06:06] VITALS: BP 96/59
[2016-11-10 07:42] LABS: BASOPHILS % (AUTO) 0.1 % (0.0-2.0); EOSINOPHILS # (AUTO) 0.3 /CMM (0.0-0.7); EOSINOPHILS % (AUTO) 1.4 % (0.0-6.0); HEMATOCRIT 29 % (33-45); HEMOGLOBIN 9.4 g/dL (11.5-14.8); LYMPHOCYTES # (AUTO) 1.8 /CMM (0.8-4.8); LYMPHOCYTES % (AUTO) 8.4 % (20.0-44.0); MEAN CORPUSCULAR HEMOGLOBIN 32 PG (26.0-33.0); MEAN CORPUSCULAR HGB CONC 33 g/dl (31.0-36.0); MEAN CORPUSCULAR VOLUME 99 fL (82-100); MONOCYTES # (AUTO) 0.7 /CMM (0.1-1.30); MONOCYTES % (AUTO) 3.3 % (2.0-12.0); NEUTROPHILS # (AUTO) 18.7 /CMM (1.8-8.9); NEUTROPHILS % (AUTO) 86.8 % (43.0-81.0); PLATELET COUNT (AUTO) 199 /CMM (150-450); WHITE BLOOD COUNT (AUTO) 21.5 K/uL (4.3-11.0)
--- NOTE | 2016-11-10 08:17 | NUR ---
Night charge nurse endorsed that Albumin was not given because it was unavailable. Pt's blood pressure at this time is 127/70 HR 86 T 98.0 R 19 O2 sat 100%.
[2016-11-10] MEDS: CALCITRIOL ORAL SOLUTION 1 MCG/ML GT SCH (09:00)
[2016-11-10] MEDS: HEPARIN SODIUM, PORCINE 5000 UNITS/1 ML VIAL SQ SCH ×2 (09:00→21:21)
[2016-11-10] MEDS: ASCORBIC ACID 500 MG TABLET GT SCH (09:00)
[2016-11-10] MEDS: LISINOPRIL (20MG) 20 MG TABLET GT SCH (09:00)
[2016-11-10] MEDS: VIT B CMPLX 3/FA/VIT C/BIOTIN 1 TAB TABLET GT SCH (09:00)
[2016-11-10] MEDS: METOPROLOL TARTRATE 50 MG TABLET GT SCH ×2 (09:00→21:23)
[2016-11-10] MEDS: INSULIN GLARGINE, 100 UNIT/ML CARTRIDGE SQ SCH ×2 (09:00→21:22)
[2016-11-10] MEDS: LACTOBACILLUS RHAMNOSUS GG 1 EACH CAP.SPRINK GT SCH ×2 (09:00→17:00)
[2016-11-10] MEDS: hydrALAZINE HCL 25 MG TABLET GT SCH ×2 (09:00→17:00)
[2016-11-10] MEDS: PROSOURCE / PROSTAT (PYXIS) 30 ML UDC GT SCH ×3 (09:00→17:00)
--- NOTE | 2016-11-10 09:45 | NUR ---
Notified Dr. Olivo that Albumin was not given last night and pt's BP is now 127/70. Dr. Oliov ordered to DC Albumin.
[2016-11-10 10:13] LABS: BAND % (MANUAL) 10 % (0.0-5.0); EOSINOPHILS % (MANUAL) 1 % (0-4); METAMYELOCYTES % 6 % (0-0); MONOCYTES % (MANUAL) 1 % (0-11.0); NEUTROPHILS % (MANUAL) 66 (42-76)
[2016-11-10 10:15] LABS: LYMPHOCYTES % (MANUAL) 11 % (16-48); MYELOCYTES % 5 % (0-0)
[2016-11-10] MEDS: RENAL NOVASOURCE 1,000 ML BOTTLE GT PRN (10:20)
[2016-11-10 12:00] VITALS: BP 127/70
--- NOTE | 2016-11-10 12:47 | NUR ---
Carried out OT recommendation for left hand splint and right hand cone as devices already arrived as ordered.
[2016-11-10] MEDS: HYDROCODONE/APAP 5/325MG 1 EACH TABLET GT SCH ×2 (14:00→21:21)
[2016-11-10] MEDS: CADEXOMER IODINE 40 GM TUBE TP SCH (15:00)
[2016-11-10] MEDS: DAKINS HALF STRENGTH (0.25%) 480 ML BOTTLE TOP SCH ×2 (15:00→21:22)
[2016-11-10] MEDS: ZINC OXIDE 30 GM TUBE TP SCH ×2 (15:00→21:23)
[2016-11-10] MEDS: HYDROGEN PEROXIDE 480 ML BOTTLE TP SCH ×2 (15:00→21:22)
[2016-11-10] MEDS: HYDROGEL DRESSING 90 GM TUBE TP SCH ×2 (15:00→21:22)
[2016-11-10] MEDS: NYSTATIN TOP POWDER 15 GM BOTTLE TP SCH ×12 (15:00→21:22)
--- NOTE | 2016-11-10 15:45 | NUR ---
Called John lane, and informed of new orders regarding RNA splint applications for hands. Verbalized understanding and thankful.
[2016-11-10] MEDS ORDERED: DOSING PER PHARMACY-AMIKACI IV XX PRN (16:00)
--- NOTE | 2016-11-10 17:00 | NUR ---
Pt was seen by THOMAS Ramsay earlier this afternoon. Received order to give Amikacin IV pharmacy to dose and Flagyl 500 mg GT q 8 hours for suspected infection. IV pharmacist Rosie recommended to give Amikacin 500 mg IV today then Amikacin 250 mg IV q HS on hemodialysis days. Addendum: 11/10/16 at 1704 by GEORGE CLEARY RN Nathaniel Garcia
[2016-11-10] MEDS ORDERED: AMIKACIN 250 MG in IV D5W 100 ML IV PRN (17:30)
[2016-11-10] MEDS ORDERED: AMIKACIN 500 MG in IV D5W 100 ML IV ONE (17:30)
[2016-11-10 18:00] VITALS: BP 124/64
[2016-11-10] MEDS: ACETAMINOPHEN 650 MG/20 ML UDC- FOR SA PATIENTS ONLY GT PRN (18:00)
--- NOTE | 2016-11-10 18:19 | NUR ---
Late entry for 11/08/16 Flushed pt's midline as ordered. Addendum: 11/10/16 at 1820 by GEORGE CLEARY RN Amended: Links added.
[2016-11-10 19:51] VITALS: BP 117/64
[2016-11-10] MEDS: METRONIDAZOLE 500 MG TABLET GT SCH (21:20)
[2016-11-11] MEDS: ALBUTEROL FS 2.5 MG/3 ML VIAL.NEB NEB SCH ×4 (02:12→19:18)
[2016-11-11] MEDS: IPRATROPIUM NEB FS 0.5 MG/2.5 ML AMPUL.NEB NEB SCH ×4 (02:12→19:18)
[2016-11-11 04:00] VITALS: BP 119/62
[2016-11-11] MEDS: INSULIN REGULAR, HUMAN 100 UNIT/ML 3 ML VIAL SQ PRN ×3 (04:06→23:56)
[2016-11-11] MEDS: METRONIDAZOLE 500 MG TABLET GT SCH ×3 (05:45→21:42)
[2016-11-11] MEDS: ESOMEPRAZOLE MAG TRIHYDRATE 20 MG CAPSULE.DR GT SCH (05:45)
[2016-11-11] MEDS: BLOOD SUGAR DIAGNOSTIC 1 EACH STRIP IN SCH ×5 (05:45→23:55)
[2016-11-11 06:05] VITALS: BP 122/69
[2016-11-11 08:00] VITALS: BP 126/65
[2016-11-11] MEDS: hydrALAZINE HCL 25 MG TABLET GT SCH ×2 (08:48→17:00)
[2016-11-11] MEDS: PROSOURCE / PROSTAT (PYXIS) 30 ML UDC GT SCH ×3 (09:17→17:52)
[2016-11-11] MEDS: CALCITRIOL ORAL SOLUTION 1 MCG/ML GT SCH (09:17)
[2016-11-11] MEDS: LACTOBACILLUS RHAMNOSUS GG 1 EACH CAP.SPRINK GT SCH ×2 (09:17→17:52)
[2016-11-11] MEDS: VIT B CMPLX 3/FA/VIT C/BIOTIN 1 TAB TABLET GT SCH (09:17)
[2016-11-11] MEDS: ASCORBIC ACID 500 MG TABLET GT SCH (09:17)
[2016-11-11] MEDS: HEPARIN SODIUM, PORCINE 5000 UNITS/1 ML VIAL SQ SCH ×2 (09:19→21:43)
[2016-11-11] MEDS: INSULIN GLARGINE, 100 UNIT/ML CARTRIDGE SQ SCH ×2 (09:20→21:43)
[2016-11-11 14:00] VITALS: BP 138/72
[2016-11-11] MEDS: HYDROCODONE/APAP 5/325MG 1 EACH TABLET GT SCH ×2 (14:00→21:42)
[2016-11-11] MEDS: HYDROGEL DRESSING 90 GM TUBE TP SCH ×2 (15:00→21:43)
[2016-11-11] MEDS: HYDROGEN PEROXIDE 480 ML BOTTLE TP SCH ×2 (15:00→21:43)
[2016-11-11] MEDS: NYSTATIN TOP POWDER 15 GM BOTTLE TP SCH ×12 (15:00→21:44)
[2016-11-11] MEDS: CADEXOMER IODINE 40 GM TUBE TP SCH (15:00)
[2016-11-11] MEDS: ZINC OXIDE 30 GM TUBE TP SCH ×2 (15:00→21:44)
[2016-11-11] MEDS: DAKINS HALF STRENGTH (0.25%) 480 ML BOTTLE TOP SCH ×2 (15:00→21:43)
[2016-11-11] MEDS ORDERED: VANCOMYCIN 0.75 GM in IV D5W 250 ML IV SCH (16:36)
[2016-11-11] MEDS: ACETAMINOPHEN 650 MG/20 ML UDC- FOR SA PATIENTS ONLY GT PRN (17:54)
[2016-11-11 18:00] VITALS: BP 114/65
[2016-11-11] MEDS: RENAL NOVASOURCE 1,000 ML BOTTLE GT PRN (18:58)
[2016-11-11 19:40] VITALS: BP 95/52
[2016-11-11] MEDS: AMIKACIN 250 MG in IV D5W 100 ML IV PRN (21:00)
[2016-11-11] MEDS: METOPROLOL TARTRATE 50 MG TABLET GT SCH (21:44)
[2016-11-12] MEDS: ALBUTEROL FS 2.5 MG/3 ML VIAL.NEB NEB SCH ×4 (01:31→19:20)
[2016-11-12] MEDS: IPRATROPIUM NEB FS 0.5 MG/2.5 ML AMPUL.NEB NEB SCH ×4 (01:31→19:20)
[2016-11-12 02:16] VITALS: BP 103/60
[2016-11-12] MEDS: METRONIDAZOLE 500 MG TABLET GT SCH ×3 (05:00→21:24)
[2016-11-12] MEDS: BLOOD SUGAR DIAGNOSTIC 1 EACH STRIP IN SCH ×4 (05:43→23:31)
[2016-11-12] MEDS: ESOMEPRAZOLE MAG TRIHYDRATE 20 MG CAPSULE.DR GT SCH (05:43)
[2016-11-12] MEDS: INSULIN REGULAR, HUMAN 100 UNIT/ML 3 ML VIAL SQ PRN ×4 (05:44→23:32)
[2016-11-12 06:06] VITALS: BP 125/62
[2016-11-12 06:46] LABS: BASOPHILS # (AUTO) 0.1 /CMM (0.0-0.2); BASOPHILS % (AUTO) 0.3 % (0.0-2.0); EOSINOPHILS # (AUTO) 0.1 /CMM (0.0-0.7); EOSINOPHILS % (AUTO) 0.8 % (0.0-6.0); HEMATOCRIT 28 % (33-45); HEMOGLOBIN 9.1 g/dL (11.5-14.8); LYMPHOCYTES # (AUTO) 1.4 /CMM (0.8-4.8); LYMPHOCYTES % (AUTO) 7.9 % (20.0-44.0); MEAN CORPUSCULAR HEMOGLOBIN 32 PG (26.0-33.0); MEAN CORPUSCULAR HGB CONC 32 g/dl (31.0-36.0); MEAN CORPUSCULAR VOLUME 101 fL (82-100); MONOCYTES # (AUTO) 0.9 /CMM (0.1-1.30); NEUTROPHILS # (AUTO) 15.1 /CMM (1.8-8.9); PLATELET COUNT (AUTO) 213 /CMM (150-450); RDW COEFFICIENT OF VARIATION 17.2 (11.5-15.0); RED BLOOD CELL COUNT(AUTO) 2.83 MIL/uL (4.0-5.2); WHITE BLOOD COUNT (AUTO) 17.6 K/uL (4.3-11.0)
[2016-11-12 07:53] VITALS: BP 118/65
[2016-11-12 09:00] VITALS: BP 118/65
[2016-11-12] MEDS: hydrALAZINE HCL 25 MG TABLET GT SCH ×2 (09:00→17:00)
[2016-11-12 09:50] LABS: BAND % (MANUAL) 9 % (0.0-5.0); LYMPHOCYTES % (MANUAL) 4 % (16-48); MONOCYTES % (MANUAL) 9 % (0-11.0); NEUTROPHILS % (MANUAL) 78 (42-76)
[2016-11-12] MEDS: VIT B CMPLX 3/FA/VIT C/BIOTIN 1 TAB TABLET GT SCH (09:57)
[2016-11-12] MEDS: LACTOBACILLUS RHAMNOSUS GG 1 EACH CAP.SPRINK GT SCH ×2 (09:57→17:39)
[2016-11-12] MEDS: CALCITRIOL ORAL SOLUTION 1 MCG/ML GT SCH (09:57)
[2016-11-12] MEDS: METOPROLOL TARTRATE 50 MG TABLET GT SCH ×2 (09:57→22:07)
[2016-11-12] MEDS: PROSOURCE / PROSTAT (PYXIS) 30 ML UDC GT SCH ×3 (09:58→17:39)
[2016-11-12] MEDS: LISINOPRIL (20MG) 20 MG TABLET GT SCH (09:58)
[2016-11-12] MEDS: HEPARIN SODIUM, PORCINE 5000 UNITS/1 ML VIAL SQ SCH ×2 (09:58→21:24)
[2016-11-12] MEDS: ASCORBIC ACID 500 MG TABLET GT SCH (09:58)
[2016-11-12] MEDS: INSULIN GLARGINE, 100 UNIT/ML CARTRIDGE SQ SCH ×2 (09:59→21:25)
--- NOTE | 2016-11-12 12:00 | NUR ---
Called THOMAS Ramsay, notified of all lab results, clarified order over the week end urine culture, unable to collect urine sample. THOMAS Ramsay aware patient on dialysis and will have dialysis pancho. She ordered to discontinue urine culture. Continue with current ATB therapy. Noted and carried out.
[2016-11-12] MEDS: HYDROCODONE/APAP 5/325MG 1 EACH TABLET GT SCH ×2 (12:35→22:00)
[2016-11-12] MEDS: DAKINS HALF STRENGTH (0.25%) 480 ML BOTTLE TOP SCH ×2 (13:35→22:30)
[2016-11-12] MEDS: ZINC OXIDE 30 GM TUBE TP SCH ×2 (13:35→22:30)
[2016-11-12] MEDS: NYSTATIN TOP POWDER 15 GM BOTTLE TP SCH ×12 (13:35→22:30)
[2016-11-12] MEDS: HYDROGEL DRESSING 90 GM TUBE TP SCH ×2 (13:35→22:30)
[2016-11-12] MEDS: CADEXOMER IODINE 40 GM TUBE TP SCH (13:35)
[2016-11-12] MEDS: HYDROGEN PEROXIDE 480 ML BOTTLE TP SCH ×2 (13:35→22:30)
--- NOTE | 2016-11-12 14:32 | NUR ---
THOMAS Ramsay from ID with order to discontinue urine culture order on 11/09/16, noted and carried out. No urine specimen collected at this time; resident is incontinent with ESRD on HD, does not urinate a lot.
[2016-11-12 19:39] VITALS: BP 140/72
[2016-11-12] MEDS: RENAL NOVASOURCE 1,000 ML BOTTLE GT PRN (21:34)
[2016-11-13 00:01] VITALS: BP 132/74
[2016-11-13] MEDS: ALBUTEROL FS 2.5 MG/3 ML VIAL.NEB NEB SCH ×4 (01:26→19:05)
[2016-11-13] MEDS: IPRATROPIUM NEB FS 0.5 MG/2.5 ML AMPUL.NEB NEB SCH ×4 (01:26→19:05)
[2016-11-13] MEDS: METRONIDAZOLE 500 MG TABLET GT SCH ×3 (05:29→21:10)
[2016-11-13] MEDS: ESOMEPRAZOLE MAG TRIHYDRATE 20 MG CAPSULE.DR GT SCH (05:30)
[2016-11-13] MEDS: BLOOD SUGAR DIAGNOSTIC 1 EACH STRIP IN SCH ×3 (05:30→17:46)
[2016-11-13] MEDS: INSULIN REGULAR, HUMAN 100 UNIT/ML 3 ML VIAL SQ PRN ×2 (05:31→17:46)
[2016-11-13 06:18] VITALS: BP 142/70
[2016-11-13 07:35] VITALS: BP 126/89
[2016-11-13] MEDS: hydrALAZINE HCL 25 MG TABLET GT SCH ×2 (08:14→17:00)
[2016-11-13] MEDS: CALCITRIOL ORAL SOLUTION 1 MCG/ML GT SCH (08:15)
[2016-11-13] MEDS: LACTOBACILLUS RHAMNOSUS GG 1 EACH CAP.SPRINK GT SCH ×2 (08:15→17:46)
[2016-11-13] MEDS: PROSOURCE / PROSTAT (PYXIS) 30 ML UDC GT SCH ×3 (08:15→17:46)
[2016-11-13] MEDS: HEPARIN SODIUM, PORCINE 5000 UNITS/1 ML VIAL SQ SCH ×2 (08:15→21:12)
[2016-11-13] MEDS: ASCORBIC ACID 500 MG TABLET GT SCH (08:15)
[2016-11-13] MEDS: VIT B CMPLX 3/FA/VIT C/BIOTIN 1 TAB TABLET GT SCH (08:15)
[2016-11-13] MEDS: INSULIN GLARGINE, 100 UNIT/ML CARTRIDGE SQ SCH ×2 (08:16→21:12)
[2016-11-13 14:30] VITALS: BP 134/85
[2016-11-13] MEDS: HYDROCODONE/APAP 5/325MG 1 EACH TABLET GT SCH ×2 (14:33→21:59)
--- NOTE | 2016-11-13 14:50 | NUR ---
Received order to decrease Vancomycin to 500 mg IV 3 times a week after hemodialysis and to continue Amikacin 250 mg IV 3 times a week after hemodialysis at 2100. Random Vancomycin and Amikacin troughs scheduled on 11/20/16 as ordered.
[2016-11-13] MEDS: DAKINS HALF STRENGTH (0.25%) 480 ML BOTTLE TOP SCH ×2 (15:00→22:30)
[2016-11-13] MEDS: NYSTATIN TOP POWDER 15 GM BOTTLE TP SCH ×12 (15:00→22:30)
[2016-11-13] MEDS: ZINC OXIDE 30 GM TUBE TP SCH ×2 (15:00→22:30)
[2016-11-13] MEDS: HYDROGEL DRESSING 90 GM TUBE TP SCH ×2 (15:00→22:30)
[2016-11-13] MEDS: HYDROGEN PEROXIDE 480 ML BOTTLE TP SCH ×2 (15:00→22:30)
[2016-11-13] MEDS: VANCOMYCIN 0.5 GM in IV D5W 250 ML IV SCH (15:34)
[2016-11-13 18:11] VITALS: BP 129/65
[2016-11-13 20:01] VITALS: BP 127/70
[2016-11-13] MEDS: AMIKACIN 250 MG in IV D5W 100 ML IV PRN (20:27)
[2016-11-13] MEDS: METOPROLOL TARTRATE 50 MG TABLET GT SCH (22:44)
[2016-11-14] MEDS: BLOOD SUGAR DIAGNOSTIC 1 EACH STRIP IN SCH ×5 (00:23→23:32)
[2016-11-14] MEDS: INSULIN REGULAR, HUMAN 100 UNIT/ML 3 ML VIAL SQ PRN ×5 (00:25→23:33)
[2016-11-14 00:28] VITALS: BP 128/75
[2016-11-14] MEDS: ALBUTEROL FS 2.5 MG/3 ML VIAL.NEB NEB SCH ×4 (01:37→19:22)
[2016-11-14] MEDS: IPRATROPIUM NEB FS 0.5 MG/2.5 ML AMPUL.NEB NEB SCH ×4 (01:37→19:22)
[2016-11-14] MEDS: METRONIDAZOLE 500 MG TABLET GT SCH ×3 (05:45→21:14)
[2016-11-14] MEDS: ESOMEPRAZOLE MAG TRIHYDRATE 20 MG CAPSULE.DR GT SCH (05:46)
[2016-11-14 06:10] VITALS: BP 112/80
[2016-11-14 07:38] VITALS: BP 87/48
[2016-11-14] MEDS: hydrALAZINE HCL 25 MG TABLET GT SCH ×2 (09:00→17:00)
[2016-11-14] MEDS: METOPROLOL TARTRATE 50 MG TABLET GT SCH ×2 (09:00→22:36)
[2016-11-14] MEDS: LISINOPRIL (20MG) 20 MG TABLET GT SCH (09:00)
[2016-11-14] MEDS: PROSOURCE / PROSTAT (PYXIS) 30 ML UDC GT SCH ×3 (09:56→17:00)
[2016-11-14] MEDS: CALCITRIOL ORAL SOLUTION 1 MCG/ML GT SCH (09:56)
[2016-11-14] MEDS: VIT B CMPLX 3/FA/VIT C/BIOTIN 1 TAB TABLET GT SCH (09:56)
[2016-11-14] MEDS: LACTOBACILLUS RHAMNOSUS GG 1 EACH CAP.SPRINK GT SCH ×2 (09:56→17:00)
[2016-11-14] MEDS: HEPARIN SODIUM, PORCINE 5000 UNITS/1 ML VIAL SQ SCH ×2 (09:57→21:14)
[2016-11-14] MEDS: INSULIN GLARGINE, 100 UNIT/ML CARTRIDGE SQ SCH ×2 (09:57→21:15)
[2016-11-14] MEDS: ASCORBIC ACID 500 MG TABLET GT SCH (09:57)
[2016-11-14] MEDS: RENAL NOVASOURCE 1,000 ML BOTTLE GT PRN (10:41)
[2016-11-14 12:00] VITALS: BP 126/65
[2016-11-14] MEDS: HYDROCODONE/APAP 5/325MG 1 EACH TABLET GT SCH ×2 (14:30→22:00)
[2016-11-14] MEDS: CADEXOMER IODINE 40 GM TUBE TP SCH (15:30)
[2016-11-14] MEDS: NYSTATIN TOP POWDER 15 GM BOTTLE TP SCH ×12 (15:30→22:30)
[2016-11-14] MEDS: HYDROGEN PEROXIDE 480 ML BOTTLE TP SCH ×2 (15:30→22:30)
[2016-11-14] MEDS: DAKINS HALF STRENGTH (0.25%) 480 ML BOTTLE TOP SCH ×2 (15:30→22:30)
[2016-11-14] MEDS: HYDROGEL DRESSING 90 GM TUBE TP SCH ×2 (15:30→22:30)
[2016-11-14] MEDS: ZINC OXIDE 30 GM TUBE TP SCH ×2 (15:30→22:30)
[2016-11-14 18:37] VITALS: BP 136/72
[2016-11-14 19:49] VITALS: BP 135/77
[2016-11-15 00:43] VITALS: BP 147/83
[2016-11-15] MEDS: ALBUTEROL FS 2.5 MG/3 ML VIAL.NEB NEB SCH ×4 (01:14→19:27)
[2016-11-15] MEDS: IPRATROPIUM NEB FS 0.5 MG/2.5 ML AMPUL.NEB NEB SCH ×4 (01:14→19:27)
[2016-11-15] MEDS: ESOMEPRAZOLE MAG TRIHYDRATE 20 MG CAPSULE.DR GT SCH (05:22)
[2016-11-15] MEDS: METRONIDAZOLE 500 MG TABLET GT SCH ×3 (05:22→21:04)
[2016-11-15] MEDS: BLOOD SUGAR DIAGNOSTIC 1 EACH STRIP IN SCH ×4 (05:22→23:59)
[2016-11-15] MEDS: INSULIN REGULAR, HUMAN 100 UNIT/ML 3 ML VIAL SQ PRN ×2 (05:23→17:53)
[2016-11-15 06:07] VITALS: BP 136/84
[2016-11-15 07:44] VITALS: BP 147/75
[2016-11-15] MEDS: PROSOURCE / PROSTAT (PYXIS) 30 ML UDC GT SCH ×3 (08:43→17:44)
[2016-11-15] MEDS: VIT B CMPLX 3/FA/VIT C/BIOTIN 1 TAB TABLET GT SCH (08:43)
[2016-11-15] MEDS: ASCORBIC ACID 500 MG TABLET GT SCH (08:43)
[2016-11-15] MEDS: hydrALAZINE HCL 25 MG TABLET GT SCH ×2 (08:43→17:00)
[2016-11-15] MEDS: LACTOBACILLUS RHAMNOSUS GG 1 EACH CAP.SPRINK GT SCH ×2 (08:43→17:44)
[2016-11-15] MEDS: CALCITRIOL ORAL SOLUTION 1 MCG/ML GT SCH (08:43)
[2016-11-15] MEDS: HEPARIN SODIUM, PORCINE 5000 UNITS/1 ML VIAL SQ SCH ×2 (08:44→21:07)
[2016-11-15] MEDS: INSULIN GLARGINE, 100 UNIT/ML CARTRIDGE SQ SCH ×2 (08:45→21:07)
[2016-11-15] MEDS: NYSTATIN TOP POWDER 15 GM BOTTLE TP SCH ×12 (09:00→21:08)
[2016-11-15 14:37] VITALS: BP 106/64
[2016-11-15] MEDS: HYDROCODONE/APAP 5/325MG 1 EACH TABLET GT SCH ×2 (15:00→21:00)
[2016-11-15] MEDS: HYDROGEN PEROXIDE 480 ML BOTTLE TP SCH ×2 (16:00→21:07)
[2016-11-15] MEDS: HYDROGEL DRESSING 90 GM TUBE TP SCH ×2 (16:00→21:07)
[2016-11-15] MEDS: DAKINS HALF STRENGTH (0.25%) 480 ML BOTTLE TOP SCH ×2 (16:00→21:07)
[2016-11-15] MEDS: ZINC OXIDE 30 GM TUBE TP SCH ×2 (16:00→21:08)
[2016-11-15] MEDS: CADEXOMER IODINE 40 GM TUBE TP SCH (16:00)
--- NOTE | 2016-11-15 16:00 | NUR ---
Unable to give vanco IV through her midline to left upper arm, noted leaking. supervisory geographer made aware, will notify IV nurse.
[2016-11-15] MEDS: RENAL NOVASOURCE 1,000 ML BOTTLE GT PRN (17:45)
[2016-11-15 18:42] VITALS: BP 102/60
--- NOTE | 2016-11-15 19:00 | NUR ---
Called painter supervisor and followed up IV NURSE for midline. PER painter supervisor, IV nurse will check midline tonight. NEXT SHIFT made aware.
[2016-11-15 19:39] VITALS: BP 97/58
[2016-11-15] MEDS: METOPROLOL TARTRATE 50 MG TABLET GT SCH (22:00)
[2016-11-16] VITALS: BP 107/59
[2016-11-16] MEDS: INSULIN REGULAR, HUMAN 100 UNIT/ML 3 ML VIAL SQ PRN ×4 (00:01→18:20)
[2016-11-16] MEDS: CLONIDINE HCL 0.2 MG TABLET GT PRN ×2 (00:07→06:34)
[2016-11-16] MEDS: VANCOMYCIN 0.5 GM in IV D5W 250 ML IV SCH (01:00)
[2016-11-16] MEDS: ALBUTEROL FS 2.5 MG/3 ML VIAL.NEB NEB SCH ×4 (01:50→20:22)
[2016-11-16] MEDS: IPRATROPIUM NEB FS 0.5 MG/2.5 ML AMPUL.NEB NEB SCH ×4 (01:50→20:22)
[2016-11-16] MEDS: AMIKACIN 250 MG in IV D5W 100 ML IV PRN (03:30)
[2016-11-16] MEDS: METRONIDAZOLE 500 MG TABLET GT SCH ×3 (05:00→20:16)
[2016-11-16 06:00] VITALS: BP 100/51
[2016-11-16] MEDS: ESOMEPRAZOLE MAG TRIHYDRATE 20 MG CAPSULE.DR GT SCH (06:12)
[2016-11-16] MEDS: BLOOD SUGAR DIAGNOSTIC 1 EACH STRIP IN SCH ×3 (06:12→18:18)
[2016-11-16 07:45] VITALS: BP 100/51
[2016-11-16] MEDS: CALCITRIOL ORAL SOLUTION 1 MCG/ML GT SCH (09:00)
[2016-11-16] MEDS: LISINOPRIL (20MG) 20 MG TABLET GT SCH (09:00)
[2016-11-16] MEDS: VIT B CMPLX 3/FA/VIT C/BIOTIN 1 TAB TABLET GT SCH (09:00)
[2016-11-16] MEDS: hydrALAZINE HCL 25 MG TABLET GT SCH ×2 (09:00→17:00)
[2016-11-16] MEDS: METOPROLOL TARTRATE 50 MG TABLET GT SCH ×2 (09:00→21:27)
[2016-11-16] MEDS: LACTOBACILLUS RHAMNOSUS GG 1 EACH CAP.SPRINK GT SCH ×2 (09:00→17:00)
[2016-11-16] MEDS: PROSOURCE / PROSTAT (PYXIS) 30 ML UDC GT SCH ×3 (09:00→17:00)
[2016-11-16] MEDS: HEPARIN SODIUM, PORCINE 5000 UNITS/1 ML VIAL SQ SCH ×2 (09:00→20:21)
[2016-11-16] MEDS: INSULIN GLARGINE, 100 UNIT/ML CARTRIDGE SQ SCH ×2 (09:00→20:21)
[2016-11-16] MEDS: ASCORBIC ACID 500 MG TABLET GT SCH (09:00)
[2016-11-16] MEDS: HYDROCODONE/APAP 5/325MG 1 EACH TABLET GT SCH ×2 (13:45→20:17)
[2016-11-16] MEDS: HYDROGEL DRESSING 90 GM TUBE TP SCH ×2 (15:00→20:22)
[2016-11-16] MEDS: HYDROGEN PEROXIDE 480 ML BOTTLE TP SCH ×2 (15:00→20:22)
[2016-11-16] MEDS: CADEXOMER IODINE 40 GM TUBE TP SCH (15:00)
[2016-11-16] MEDS: NYSTATIN TOP POWDER 15 GM BOTTLE TP SCH ×12 (15:00→20:26)
[2016-11-16] MEDS: DAKINS HALF STRENGTH (0.25%) 480 ML BOTTLE TOP SCH ×2 (15:00→20:22)
[2016-11-16] MEDS: ZINC OXIDE 30 GM TUBE TP SCH ×2 (15:00→20:27)
--- NOTE | 2016-11-16 15:00 | NUR ---
Received order from THOMAS Ramsay for midline insertion, flush midline with 10ml saline every shift, change dressing of midline every 7days and PRN orders noted and carried out. Pt's notified.
[2016-11-16 15:31] VITALS: BP 101/82
--- NOTE | 2016-11-16 16:53 | NUR ---
Midline insertion done on left inner upper arm, midline is intact and patent inserted by PICC line nurse, procedure tolerated-well. Handled gently during care.
[2016-11-16 18:27] VITALS: BP 123/57
[2016-11-16 20:04] VITALS: BP 120/81
[2016-11-16] MEDS: RENAL NOVASOURCE 1,000 ML BOTTLE GT PRN (22:39)
[2016-11-17 00:13] VITALS: BP 129/72
[2016-11-17] MEDS: BLOOD SUGAR DIAGNOSTIC 1 EACH STRIP IN SCH ×4 (00:15→17:40)
[2016-11-17] MEDS: INSULIN REGULAR, HUMAN 100 UNIT/ML 3 ML VIAL SQ PRN ×4 (00:16→17:41)
[2016-11-17] MEDS: ALBUTEROL FS 2.5 MG/3 ML VIAL.NEB NEB SCH ×4 (01:30→19:53)
[2016-11-17] MEDS: IPRATROPIUM NEB FS 0.5 MG/2.5 ML AMPUL.NEB NEB SCH ×4 (01:30→19:53)
[2016-11-17] MEDS: METRONIDAZOLE 500 MG TABLET GT SCH ×3 (05:14→20:21)
[2016-11-17] MEDS: ESOMEPRAZOLE MAG TRIHYDRATE 20 MG CAPSULE.DR GT SCH (05:15)
[2016-11-17 06:07] VITALS: BP 133/77
--- NOTE | 2016-11-17 07:12 | NUR ---
Received female faith pt on mechanical vent. Pt faith is secure. Vent is plugged into a red outlet, alarms are set and audible, and BVM is at beside. Addendum: 11/17/16 at 0712 by ANNMARIE CARVER RT Amended: Links added.
[2016-11-17 08:00] VITALS: BP 155/85
[2016-11-17] MEDS: hydrALAZINE HCL 25 MG TABLET GT SCH ×2 (09:00→16:22)
[2016-11-17] MEDS: CALCITRIOL ORAL SOLUTION 1 MCG/ML GT SCH (09:00)
[2016-11-17] MEDS: INSULIN GLARGINE, 100 UNIT/ML CARTRIDGE SQ SCH ×2 (09:00→20:28)
[2016-11-17] MEDS: HEPARIN SODIUM, PORCINE 5000 UNITS/1 ML VIAL SQ SCH ×2 (09:00→20:27)
[2016-11-17] MEDS: VIT B CMPLX 3/FA/VIT C/BIOTIN 1 TAB TABLET GT SCH (09:00)
[2016-11-17] MEDS: METOPROLOL TARTRATE 50 MG TABLET GT SCH ×2 (09:00→21:32)
[2016-11-17] MEDS: LISINOPRIL (20MG) 20 MG TABLET GT SCH (09:00)
[2016-11-17] MEDS: PROSOURCE / PROSTAT (PYXIS) 30 ML UDC GT SCH ×3 (09:00→16:22)
[2016-11-17] MEDS: ASCORBIC ACID 500 MG TABLET GT SCH (09:00)
[2016-11-17] MEDS: LACTOBACILLUS RHAMNOSUS GG 1 EACH CAP.SPRINK GT SCH ×2 (09:00→16:22)
--- NOTE | 2016-11-17 11:05 | NUR ---
Asked THOMAS Ramsay for stop date of pt's Flagyl. She said she will review it. No new order at this time.
[2016-11-17] MEDS: HYDROCODONE/APAP 5/325MG 1 EACH TABLET GT SCH ×2 (14:20→20:27)
[2016-11-17] MEDS: HYDROGEL DRESSING 90 GM TUBE TP SCH ×2 (15:00→20:28)
[2016-11-17] MEDS: DAKINS HALF STRENGTH (0.25%) 480 ML BOTTLE TOP SCH ×2 (15:00→20:28)
[2016-11-17] MEDS: CADEXOMER IODINE 40 GM TUBE TP SCH (15:00)
[2016-11-17] MEDS: HYDROGEN PEROXIDE 480 ML BOTTLE TP SCH ×2 (15:00→20:28)
[2016-11-17] MEDS: ZINC OXIDE 30 GM TUBE TP SCH ×2 (15:00→20:29)
[2016-11-17] MEDS: NYSTATIN TOP POWDER 15 GM BOTTLE TP SCH ×12 (15:00→20:29)
[2016-11-17 16:30] VITALS: BP 130/65
[2016-11-17 17:58] VITALS: BP 135/62
[2016-11-17 19:59] VITALS: BP 148/73
[2016-11-18] MEDS: BLOOD SUGAR DIAGNOSTIC 1 EACH STRIP IN SCH ×4 (00:14→18:40)
[2016-11-18 00:16] VITALS: BP 138/70
[2016-11-18] MEDS: INSULIN REGULAR, HUMAN 100 UNIT/ML 3 ML VIAL SQ PRN ×3 (00:16→18:41)
[2016-11-18] MEDS: ALBUTEROL FS 2.5 MG/3 ML VIAL.NEB NEB SCH ×4 (01:30→20:06)
[2016-11-18] MEDS: IPRATROPIUM NEB FS 0.5 MG/2.5 ML AMPUL.NEB NEB SCH ×4 (01:30→20:06)
[2016-11-18] MEDS: RENAL NOVASOURCE 1,000 ML BOTTLE GT PRN (04:24)
[2016-11-18] MEDS: ESOMEPRAZOLE MAG TRIHYDRATE 20 MG CAPSULE.DR GT SCH (05:14)
[2016-11-18] MEDS: METRONIDAZOLE 500 MG TABLET GT SCH ×3 (05:14→20:10)
[2016-11-18 06:09] VITALS: BP 141/75
[2016-11-18 08:27] VITALS: BP 123/66
[2016-11-18 08:39] VITALS: BP 123/66
[2016-11-18] MEDS: hydrALAZINE HCL 25 MG TABLET GT SCH ×2 (09:00→16:39)
[2016-11-18] MEDS: CALCITRIOL ORAL SOLUTION 1 MCG/ML GT SCH (09:14)
[2016-11-18] MEDS: LACTOBACILLUS RHAMNOSUS GG 1 EACH CAP.SPRINK GT SCH ×2 (09:14→16:40)
[2016-11-18] MEDS: ASCORBIC ACID 500 MG TABLET GT SCH (09:15)
[2016-11-18] MEDS: VIT B CMPLX 3/FA/VIT C/BIOTIN 1 TAB TABLET GT SCH (09:15)
[2016-11-18] MEDS: PROSOURCE / PROSTAT (PYXIS) 30 ML UDC GT SCH ×3 (09:15→16:40)
[2016-11-18] MEDS: HEPARIN SODIUM, PORCINE 5000 UNITS/1 ML VIAL SQ SCH ×2 (09:15→20:11)
[2016-11-18] MEDS: INSULIN GLARGINE, 100 UNIT/ML CARTRIDGE SQ SCH ×2 (09:17→20:12)
--- NOTE | 2016-11-18 12:34 | NUR ---
Spoke to Mildred at the wound center () and informed her that Dr. Rojas did not see the resident. She stated the doctor is not in today but she will inform him.
[2016-11-18] MEDS: HYDROCODONE/APAP 5/325MG 1 EACH TABLET GT SCH ×2 (15:00→20:11)
[2016-11-18] MEDS: HYDROGEL DRESSING 90 GM TUBE TP SCH ×2 (16:00→20:12)
[2016-11-18] MEDS: ZINC OXIDE 30 GM TUBE TP SCH ×2 (16:00→20:13)
[2016-11-18] MEDS: CADEXOMER IODINE 40 GM TUBE TP SCH (16:00)
[2016-11-18] MEDS: DAKINS HALF STRENGTH (0.25%) 480 ML BOTTLE TOP SCH ×2 (16:00→20:12)
[2016-11-18] MEDS: HYDROGEN PEROXIDE 480 ML BOTTLE TP SCH ×2 (16:00→20:12)
[2016-11-18] MEDS: NYSTATIN TOP POWDER 15 GM BOTTLE TP SCH ×12 (16:00→20:12)
[2016-11-18] MEDS: VANCOMYCIN 0.5 GM in IV D5W 250 ML IV SCH (16:00)
[2016-11-18 18:42] VITALS: BP 126/52
[2016-11-18 20:00] VITALS: BP 104/62
[2016-11-18] MEDS: AMIKACIN 250 MG in IV D5W 100 ML IV PRN (20:16)
[2016-11-18] MEDS: METOPROLOL TARTRATE 50 MG TABLET GT SCH (21:15)
[2016-11-19] MEDS: BLOOD SUGAR DIAGNOSTIC 1 EACH STRIP IN SCH ×5 (00:03→23:35)
[2016-11-19] MEDS: INSULIN REGULAR, HUMAN 100 UNIT/ML 3 ML VIAL SQ PRN ×5 (00:04→23:36)
[2016-11-19 00:06] VITALS: BP 111/59
[2016-11-19] MEDS: ALBUTEROL FS 2.5 MG/3 ML VIAL.NEB NEB SCH ×4 (01:38→19:48)
[2016-11-19] MEDS: IPRATROPIUM NEB FS 0.5 MG/2.5 ML AMPUL.NEB NEB SCH ×4 (01:38→19:48)
[2016-11-19] MEDS: ESOMEPRAZOLE MAG TRIHYDRATE 20 MG CAPSULE.DR GT SCH (05:28)
[2016-11-19] MEDS: METRONIDAZOLE 500 MG TABLET GT SCH ×3 (05:28→21:15)
[2016-11-19 06:19] VITALS: BP 124/67
[2016-11-19 08:00] VITALS: BP 104/50
[2016-11-19] MEDS: METOPROLOL TARTRATE 50 MG TABLET GT SCH ×2 (08:20→22:00)
[2016-11-19] MEDS: CALCITRIOL ORAL SOLUTION 1 MCG/ML GT SCH (08:20)
[2016-11-19] MEDS: hydrALAZINE HCL 25 MG TABLET GT SCH ×2 (08:20→17:00)
[2016-11-19] MEDS: LACTOBACILLUS RHAMNOSUS GG 1 EACH CAP.SPRINK GT SCH ×2 (08:20→17:28)
[2016-11-19] MEDS: VIT B CMPLX 3/FA/VIT C/BIOTIN 1 TAB TABLET GT SCH (08:21)
[2016-11-19] MEDS: LISINOPRIL (20MG) 20 MG TABLET GT SCH (08:22)
[2016-11-19] MEDS: HYDROCODONE/APAP 5/325MG 1 EACH TABLET GT SCH ×2 (08:22→22:00)
[2016-11-19] MEDS: ASCORBIC ACID 500 MG TABLET GT SCH (08:23)
[2016-11-19] MEDS: PROSOURCE / PROSTAT (PYXIS) 30 ML UDC GT SCH ×3 (08:23→17:28)
[2016-11-19] MEDS: HYDROGEL DRESSING 90 GM TUBE TP SCH ×2 (08:24→22:30)
[2016-11-19] MEDS: DAKINS HALF STRENGTH (0.25%) 480 ML BOTTLE TOP SCH ×2 (08:24→22:30)
[2016-11-19] MEDS: HYDROGEN PEROXIDE 480 ML BOTTLE TP SCH ×2 (08:24→22:30)
[2016-11-19] MEDS: HEPARIN SODIUM, PORCINE 5000 UNITS/1 ML VIAL SQ SCH ×2 (08:24→21:16)
[2016-11-19] MEDS: CADEXOMER IODINE 40 GM TUBE TP SCH (08:25)
[2016-11-19] MEDS: NYSTATIN TOP POWDER 15 GM BOTTLE TP SCH ×12 (08:25→22:30)
[2016-11-19] MEDS: ZINC OXIDE 30 GM TUBE TP SCH ×2 (08:28→22:30)
[2016-11-19] MEDS: INSULIN GLARGINE, 100 UNIT/ML CARTRIDGE SQ SCH ×2 (09:48→21:16)
[2016-11-19] MEDS: RENAL NOVASOURCE 1,000 ML BOTTLE GT PRN (14:29)
[2016-11-19 14:55] VITALS: BP 115/59
[2016-11-19 18:10] VITALS: BP 116/68
[2016-11-19 20:24] VITALS: BP 117/59
[2016-11-20 00:01] VITALS: BP 148/76
[2016-11-20] MEDS: IPRATROPIUM NEB FS 0.5 MG/2.5 ML AMPUL.NEB NEB SCH ×4 (01:30→19:51)
[2016-11-20] MEDS: ALBUTEROL FS 2.5 MG/3 ML VIAL.NEB NEB SCH ×4 (01:30→19:51)
[2016-11-20] MEDS: METRONIDAZOLE 500 MG TABLET GT SCH ×3 (05:28→21:25)
[2016-11-20] MEDS: ESOMEPRAZOLE MAG TRIHYDRATE 20 MG CAPSULE.DR GT SCH (05:28)
[2016-11-20] MEDS: BLOOD SUGAR DIAGNOSTIC 1 EACH STRIP IN SCH ×4 (05:28→23:39)
[2016-11-20] MEDS: INSULIN REGULAR, HUMAN 100 UNIT/ML 3 ML VIAL SQ PRN ×3 (05:29→23:45)
[2016-11-20 06:19] VITALS: BP 126/72
[2016-11-20 07:56] VITALS: BP 136/72
[2016-11-20] MEDS: hydrALAZINE HCL 25 MG TABLET GT SCH ×2 (08:13→17:00)
[2016-11-20] MEDS: CALCITRIOL ORAL SOLUTION 1 MCG/ML GT SCH (08:14)
[2016-11-20] MEDS: PROSOURCE / PROSTAT (PYXIS) 30 ML UDC GT SCH ×3 (08:15→17:24)
[2016-11-20] MEDS: LACTOBACILLUS RHAMNOSUS GG 1 EACH CAP.SPRINK GT SCH ×2 (08:16→17:29)
[2016-11-20] MEDS: VIT B CMPLX 3/FA/VIT C/BIOTIN 1 TAB TABLET GT SCH (08:17)
[2016-11-20] MEDS: ASCORBIC ACID 500 MG TABLET GT SCH (08:18)
[2016-11-20] MEDS: HEPARIN SODIUM, PORCINE 5000 UNITS/1 ML VIAL SQ SCH ×2 (08:22→21:26)
[2016-11-20] MEDS: INSULIN GLARGINE, 100 UNIT/ML CARTRIDGE SQ SCH ×2 (08:31→21:27)
[2016-11-20] MEDS: CADEXOMER IODINE 40 GM TUBE TP SCH (09:00)
[2016-11-20] MEDS: ZINC OXIDE 30 GM TUBE TP SCH ×2 (09:00→21:00)
[2016-11-20] MEDS: HYDROGEN PEROXIDE 480 ML BOTTLE TP SCH ×2 (09:00→21:00)
[2016-11-20] MEDS: HYDROGEL DRESSING 90 GM TUBE TP SCH ×2 (15:00→21:00)
--- NOTE | 2016-11-20 15:17 | NUR ---
Dr Remigio Fowler DPM and Dr. Rojas came to see the resident for podiatry follow up.
[2016-11-20] MEDS: DAKINS HALF STRENGTH (0.25%) 480 ML BOTTLE TOP SCH ×2 (15:30→21:00)
[2016-11-20] MEDS: NYSTATIN TOP POWDER 15 GM BOTTLE TP SCH ×12 (15:30→21:00)
[2016-11-20 18:01] VITALS: BP 123/60
[2016-11-20 19:46] VITALS: BP 113/68
[2016-11-20] MEDS: VANCOMYCIN IV SCH (19:50)
[2016-11-20] MEDS: D5W IV SCH (19:50)
[2016-11-20] MEDS: AMIKACIN 250 MG in IV D5W 100 ML IV PRN (19:51)
[2016-11-20] MEDS: HYDROCODONE/APAP 5/325MG 1 EACH TABLET GT SCH (21:00)
[2016-11-20] MEDS: METOPROLOL TARTRATE 50 MG TABLET GT SCH (22:31)
[2016-11-21] VITALS: BP 121/67
[2016-11-21] MEDS: RENAL NOVASOURCE 1,000 ML BOTTLE GT PRN (01:17)
[2016-11-21] MEDS: IPRATROPIUM NEB FS 0.5 MG/2.5 ML AMPUL.NEB NEB SCH ×4 (01:30→19:10)
[2016-11-21] MEDS: ALBUTEROL FS 2.5 MG/3 ML VIAL.NEB NEB SCH ×4 (01:30→19:10)
[2016-11-21] MEDS: METRONIDAZOLE 500 MG TABLET GT SCH ×3 (05:28→21:04)
[2016-11-21] MEDS: ESOMEPRAZOLE MAG TRIHYDRATE 20 MG CAPSULE.DR GT SCH (05:29)
[2016-11-21] MEDS: BLOOD SUGAR DIAGNOSTIC 1 EACH STRIP IN SCH ×4 (05:37→23:37)
[2016-11-21] MEDS: INSULIN REGULAR, HUMAN 100 UNIT/ML 3 ML VIAL SQ PRN ×4 (05:40→23:40)
[2016-11-21 06:00] VITALS: BP 112/63
[2016-11-21] MEDS: CLONIDINE HCL 0.2 MG TABLET GT PRN ×3 (06:40→17:47)
[2016-11-21] MEDS: METOPROLOL TARTRATE 50 MG TABLET GT SCH ×2 (09:00→22:19)
[2016-11-21] MEDS: LISINOPRIL (20MG) 20 MG TABLET GT SCH (09:00)
[2016-11-21] MEDS: hydrALAZINE HCL 25 MG TABLET GT SCH ×2 (09:00→17:40)
[2016-11-21] MEDS: CALCITRIOL ORAL SOLUTION 1 MCG/ML GT SCH (09:51)
[2016-11-21] MEDS: LACTOBACILLUS RHAMNOSUS GG 1 EACH CAP.SPRINK GT SCH ×2 (09:51→17:40)
[2016-11-21] MEDS: VIT B CMPLX 3/FA/VIT C/BIOTIN 1 TAB TABLET GT SCH (09:52)
[2016-11-21] MEDS: ASCORBIC ACID 500 MG TABLET GT SCH (09:52)
[2016-11-21] MEDS: PROSOURCE / PROSTAT (PYXIS) 30 ML UDC GT SCH ×3 (09:52→17:40)
[2016-11-21] MEDS: INSULIN GLARGINE, 100 UNIT/ML CARTRIDGE SQ SCH ×2 (09:53→21:05)
[2016-11-21] MEDS: HEPARIN SODIUM, PORCINE 5000 UNITS/1 ML VIAL SQ SCH ×2 (09:53→21:05)
[2016-11-21 12:00] VITALS: BP_SYST 130; BP_SYST 134; BP_DIAS 74
[2016-11-21] MEDS: HYDROCODONE/APAP 5/325MG 1 EACH TABLET GT SCH ×2 (12:45→22:00)
[2016-11-21] MEDS: HYDROGEL DRESSING 90 GM TUBE TP SCH ×2 (13:45→22:30)
[2016-11-21] MEDS: CADEXOMER IODINE 40 GM TUBE TP SCH (13:45)
[2016-11-21] MEDS: HYDROGEN PEROXIDE 480 ML BOTTLE TP SCH ×2 (13:45→22:30)
[2016-11-21] MEDS: DAKINS HALF STRENGTH (0.25%) 480 ML BOTTLE TOP SCH ×2 (13:45→22:30)
[2016-11-21] MEDS: ZINC OXIDE 30 GM TUBE TP SCH ×2 (13:45→22:30)
[2016-11-21] MEDS: NYSTATIN TOP POWDER 15 GM BOTTLE TP SCH ×12 (13:45→22:30)
[2016-11-21 13:56] VITALS: BP 128/62
--- NOTE | 2016-11-21 15:30 | NUR ---
Received a call from the resident's alleged mother Selena Hinds ([phone]) who stated that resident is not well and she has been wanting to remove her from the ventilator. SW explained to her that the resident's boyfriend is the responsible libertarian for this resident and that she would need to communicate her wishes with him. She stated that she has been calling and visiting him but he does not open the door. SW stated she will let resident's boyfriend know that she wants to speak with him. SW called resident's boyfriend John Woodall who stated that he has spoken with her before and agreed to remove her off the ventilator BUT then mother stated that she did not have enough money for a burial. He stated that if she wants to remove her from the ventilator, he will not have a problem with that but knows that they cannot afford proper arrangements to be made. He stated that he will call her to speak to her and will notify the social security benefits interviewer if any changes are to be made. Charge nurse was informed.
--- NOTE | 2016-11-21 15:30 | NUR ---
Pt noted with multiple skin tear on right buttock. Minimal bleeding noted. MD notified and treatment order obtained, noted and carried out.
--- NOTE | 2016-11-21 15:50 | NUR ---
Per the resident's boyfriend John Woodall, it is also okay for resident's mother to visit (Selena Foreman) but she is not to make any changes to the plan of care for the resident. Charge nurse informed.
[2016-11-21 18:44] VITALS: BP 138/71
[2016-11-21 20:12] VITALS: BP 127/58
[2016-11-21] MEDS: NEOMY SULF/BACITRAC ZN/POLY 15 GM TUBE TP SCH (22:30)
[2016-11-22 00:30] VITALS: BP 151/83
[2016-11-22] MEDS: ALBUTEROL FS 2.5 MG/3 ML VIAL.NEB NEB SCH ×4 (01:20→20:14)
[2016-11-22] MEDS: IPRATROPIUM NEB FS 0.5 MG/2.5 ML AMPUL.NEB NEB SCH ×4 (01:20→20:14)
[2016-11-22] MEDS: METRONIDAZOLE 500 MG TABLET GT SCH ×3 (05:34→21:00)
[2016-11-22] MEDS: BLOOD SUGAR DIAGNOSTIC 1 EACH STRIP IN SCH ×3 (05:34→17:06)
[2016-11-22] MEDS: ESOMEPRAZOLE MAG TRIHYDRATE 20 MG CAPSULE.DR GT SCH (05:34)
[2016-11-22] MEDS: INSULIN REGULAR, HUMAN 100 UNIT/ML 3 ML VIAL SQ PRN ×2 (05:36→17:05)
[2016-11-22] MEDS: RENAL NOVASOURCE 1,000 ML BOTTLE GT PRN (05:54)
[2016-11-22 06:21] VITALS: BP 146/73
[2016-11-22] MEDS: LACTOBACILLUS RHAMNOSUS GG 1 EACH CAP.SPRINK GT SCH ×2 (08:00→16:32)
[2016-11-22] MEDS: ASCORBIC ACID 500 MG TABLET GT SCH (08:00)
[2016-11-22] MEDS: HYDROCODONE/APAP 5/325MG 1 EACH TABLET GT SCH ×2 (08:00→21:00)
[2016-11-22] MEDS: VIT B CMPLX 3/FA/VIT C/BIOTIN 1 TAB TABLET GT SCH (08:00)
[2016-11-22] MEDS: CALCITRIOL ORAL SOLUTION 1 MCG/ML GT SCH (08:00)
[2016-11-22] MEDS: PROSOURCE / PROSTAT (PYXIS) 30 ML UDC GT SCH ×3 (08:00→16:33)
[2016-11-22] MEDS: HEPARIN SODIUM, PORCINE 5000 UNITS/1 ML VIAL SQ SCH ×2 (08:01→21:00)
[2016-11-22] MEDS: INSULIN GLARGINE, 100 UNIT/ML CARTRIDGE SQ SCH ×2 (08:02→21:00)
[2016-11-22 08:06] VITALS: BP 132/69
[2016-11-22] MEDS: HYDROGEL DRESSING 90 GM TUBE TP SCH ×2 (09:00→21:00)
[2016-11-22] MEDS: CADEXOMER IODINE 40 GM TUBE TP SCH (09:00)
[2016-11-22] MEDS: NEOMY SULF/BACITRAC ZN/POLY 15 GM TUBE TP SCH ×2 (09:00→21:00)
[2016-11-22] MEDS: DAKINS HALF STRENGTH (0.25%) 480 ML BOTTLE TOP SCH ×2 (09:00→21:00)
[2016-11-22] MEDS: NYSTATIN TOP POWDER 15 GM BOTTLE TP SCH ×12 (09:00→21:00)
[2016-11-22] MEDS: ZINC OXIDE 30 GM TUBE TP SCH ×2 (09:00→21:00)
[2016-11-22] MEDS: HYDROGEN PEROXIDE 480 ML BOTTLE TP SCH ×2 (09:00→21:00)
--- NOTE | 2016-11-22 10:00 | NUR ---
RN NOTES PT LEFT THE FLOOR TO HD CENTER .
[2016-11-22 14:30] VITALS: BP 136/55
--- NOTE | 2016-11-22 14:30 | NUR ---
RN NOTES PT BACK FROM HD CENTER . VSS STABLE,
[2016-11-22] MEDS: hydrALAZINE HCL 25 MG TABLET GT SCH (16:33)
[2016-11-22 18:00] VITALS: BP 130/59
[2016-11-22] MEDS: D5W IV SCH (18:00)
[2016-11-22] MEDS: VANCOMYCIN IV SCH (18:00)
[2016-11-22 19:55] VITALS: BP 135/59
[2016-11-22] MEDS: AMIKACIN 250 MG in IV D5W 100 ML IV PRN (20:00)
[2016-11-22] MEDS: METOPROLOL TARTRATE 50 MG TABLET GT SCH (22:20)
[2016-11-23] VITALS: BP 135/59
[2016-11-23] MEDS: BLOOD SUGAR DIAGNOSTIC 1 EACH STRIP IN SCH ×4 (00:30→18:31)
[2016-11-23] MEDS: INSULIN REGULAR, HUMAN 100 UNIT/ML 3 ML VIAL SQ PRN ×4 (00:32→18:33)
[2016-11-23] MEDS: ALBUTEROL FS 2.5 MG/3 ML VIAL.NEB NEB SCH ×4 (01:30→19:49)
[2016-11-23] MEDS: IPRATROPIUM NEB FS 0.5 MG/2.5 ML AMPUL.NEB NEB SCH ×4 (01:30→19:49)
[2016-11-23] MEDS: ACETAMINOPHEN 650 MG/20 ML UDC- FOR SA PATIENTS ONLY GT PRN (04:58)
[2016-11-23] MEDS: METRONIDAZOLE 500 MG TABLET GT SCH ×3 (05:47→20:10)
[2016-11-23] MEDS: ESOMEPRAZOLE MAG TRIHYDRATE 20 MG CAPSULE.DR GT SCH (05:47)
--- NOTE | 2016-11-23 06:59 | NUR ---
Received female faith pt on mechanical vent. Pt faith is secure. Vent is plugged into a red outlet, alarms are audible, and BVM is at bedside. Addendum: 11/23/16 at 0700 by ANNMARIE CARVER RT Amended: Links added.
[2016-11-23 07:56] VITALS: BP 95/50
[2016-11-23] MEDS: hydrALAZINE HCL 25 MG TABLET GT SCH ×2 (09:00→17:00)
[2016-11-23] MEDS: LISINOPRIL (20MG) 20 MG TABLET GT SCH (09:00)
[2016-11-23] MEDS: METOPROLOL TARTRATE 50 MG TABLET GT SCH ×2 (09:00→21:55)
[2016-11-23] MEDS: CALCITRIOL ORAL SOLUTION 1 MCG/ML GT SCH (09:25)
[2016-11-23] MEDS: LACTOBACILLUS RHAMNOSUS GG 1 EACH CAP.SPRINK GT SCH ×2 (09:25→17:00)
[2016-11-23] MEDS: VIT B CMPLX 3/FA/VIT C/BIOTIN 1 TAB TABLET GT SCH (09:26)
[2016-11-23] MEDS: PROSOURCE / PROSTAT (PYXIS) 30 ML UDC GT SCH ×3 (09:27→17:00)
[2016-11-23] MEDS: ASCORBIC ACID 500 MG TABLET GT SCH (09:27)
[2016-11-23] MEDS: HEPARIN SODIUM, PORCINE 5000 UNITS/1 ML VIAL SQ SCH ×2 (09:27→20:17)
[2016-11-23] MEDS: INSULIN GLARGINE, 100 UNIT/ML CARTRIDGE SQ SCH ×2 (09:29→20:18)
[2016-11-23] MEDS: HYDROCODONE/APAP 5/325MG 1 EACH TABLET GT SCH ×2 (14:50→20:12)
[2016-11-23] MEDS: HYDROGEL DRESSING 90 GM TUBE TP SCH ×2 (15:30→20:18)
[2016-11-23] MEDS: NYSTATIN TOP POWDER 15 GM BOTTLE TP SCH ×12 (15:30→20:19)
[2016-11-23] MEDS: CADEXOMER IODINE 40 GM TUBE TP SCH (15:30)
[2016-11-23] MEDS: ZINC OXIDE 30 GM TUBE TP SCH ×2 (15:30→20:19)
[2016-11-23] MEDS: NEOMY SULF/BACITRAC ZN/POLY 15 GM TUBE TP SCH ×2 (15:30→20:19)
[2016-11-23] MEDS: DAKINS HALF STRENGTH (0.25%) 480 ML BOTTLE TOP SCH ×2 (15:30→20:18)
[2016-11-23] MEDS: HYDROGEN PEROXIDE 480 ML BOTTLE TP SCH ×2 (15:30→20:18)
[2016-11-23 15:39] VITALS: BP 95/59
[2016-11-23 18:34] VITALS: BP 124/60
[2016-11-23 19:55] VITALS: BP 147/66
[2016-11-24] VITALS (7 sets, daily range): BP systolic 127–158; BP diastolic 65–74
[2016-11-24] MEDS: BLOOD SUGAR DIAGNOSTIC 1 EACH STRIP IN SCH ×4 (00:15→17:56)
[2016-11-24] MEDS: INSULIN REGULAR, HUMAN 100 UNIT/ML 3 ML VIAL SQ PRN ×4 (00:17→17:59)
[2016-11-24] MEDS: IPRATROPIUM NEB FS 0.5 MG/2.5 ML AMPUL.NEB NEB SCH ×4 (02:07→20:19)
[2016-11-24] MEDS: ALBUTEROL FS 2.5 MG/3 ML VIAL.NEB NEB SCH ×4 (02:07→20:19)
[2016-11-24] MEDS: METRONIDAZOLE 500 MG TABLET GT SCH ×3 (05:08→20:34)
[2016-11-24] MEDS: ESOMEPRAZOLE MAG TRIHYDRATE 20 MG CAPSULE.DR GT SCH (05:09)
[2016-11-24] MEDS: LACTOBACILLUS RHAMNOSUS GG 1 EACH CAP.SPRINK GT SCH ×2 (09:36→17:55)
[2016-11-24] MEDS: hydrALAZINE HCL 25 MG TABLET GT SCH ×2 (09:36→17:55)
[2016-11-24] MEDS: CALCITRIOL ORAL SOLUTION 1 MCG/ML GT SCH (09:36)
[2016-11-24] MEDS: VIT B CMPLX 3/FA/VIT C/BIOTIN 1 TAB TABLET GT SCH (09:37)
[2016-11-24] MEDS: LISINOPRIL (20MG) 20 MG TABLET GT SCH (09:37)
[2016-11-24] MEDS: ASCORBIC ACID 500 MG TABLET GT SCH (09:37)
[2016-11-24] MEDS: METOPROLOL TARTRATE 50 MG TABLET GT SCH ×2 (09:37→22:03)
[2016-11-24] MEDS: PROSOURCE / PROSTAT (PYXIS) 30 ML UDC GT SCH ×3 (09:37→17:55)
[2016-11-24] MEDS: HEPARIN SODIUM, PORCINE 5000 UNITS/1 ML VIAL SQ SCH ×2 (09:38→20:36)
[2016-11-24] MEDS: INSULIN GLARGINE, 100 UNIT/ML CARTRIDGE SQ SCH ×2 (09:39→20:36)
[2016-11-24] MEDS: RENAL NOVASOURCE 1,000 ML BOTTLE GT PRN (13:00)
[2016-11-24] MEDS: HYDROCODONE/APAP 5/325MG 1 EACH TABLET GT SCH ×2 (15:00→20:36)
[2016-11-24] MEDS: DAKINS HALF STRENGTH (0.25%) 480 ML BOTTLE TOP SCH ×2 (16:00→20:37)
[2016-11-24] MEDS: HYDROGEL DRESSING 90 GM TUBE TP SCH ×2 (16:00→20:37)
[2016-11-24] MEDS: NEOMY SULF/BACITRAC ZN/POLY 15 GM TUBE TP SCH ×2 (16:00→20:37)
[2016-11-24] MEDS: HYDROGEN PEROXIDE 480 ML BOTTLE TP SCH ×2 (16:00→20:37)
[2016-11-24] MEDS: CADEXOMER IODINE 40 GM TUBE TP SCH (16:00)
[2016-11-24] MEDS: NYSTATIN TOP POWDER 15 GM BOTTLE TP SCH ×12 (16:00→20:37)
[2016-11-24] MEDS: ZINC OXIDE 30 GM TUBE TP SCH ×2 (16:00→20:37)
[2016-11-25] MEDS: BLOOD SUGAR DIAGNOSTIC 1 EACH STRIP IN SCH ×4 (00:14→18:06)
[2016-11-25] MEDS: INSULIN REGULAR, HUMAN 100 UNIT/ML 3 ML VIAL SQ PRN ×3 (00:16→18:08)
[2016-11-25 00:18] VITALS: BP 146/70
[2016-11-25] MEDS: IPRATROPIUM NEB FS 0.5 MG/2.5 ML AMPUL.NEB NEB SCH ×4 (01:30→20:23)
[2016-11-25] MEDS: ALBUTEROL FS 2.5 MG/3 ML VIAL.NEB NEB SCH ×4 (01:30→20:23)
[2016-11-25] MEDS: METRONIDAZOLE 500 MG TABLET GT SCH ×3 (05:53→20:12)
[2016-11-25] MEDS: ESOMEPRAZOLE MAG TRIHYDRATE 20 MG CAPSULE.DR GT SCH (05:54)
[2016-11-25 06:24] VITALS: BP 140/62
[2016-11-25] MEDS: CALCITRIOL ORAL SOLUTION 1 MCG/ML GT SCH (09:11)
[2016-11-25] MEDS: LACTOBACILLUS RHAMNOSUS GG 1 EACH CAP.SPRINK GT SCH ×2 (09:11→17:00)
[2016-11-25] MEDS: VIT B CMPLX 3/FA/VIT C/BIOTIN 1 TAB TABLET GT SCH (09:11)
[2016-11-25] MEDS: PROSOURCE / PROSTAT (PYXIS) 30 ML UDC GT SCH ×3 (09:12→17:00)
[2016-11-25] MEDS: ASCORBIC ACID 500 MG TABLET GT SCH (09:12)
[2016-11-25] MEDS: HEPARIN SODIUM, PORCINE 5000 UNITS/1 ML VIAL SQ SCH ×2 (09:16→20:14)
[2016-11-25] MEDS: INSULIN GLARGINE, 100 UNIT/ML CARTRIDGE SQ SCH ×2 (09:17→20:16)
[2016-11-25] MEDS: HYDROCODONE/APAP 5/325MG 1 EACH TABLET GT SCH ×2 (15:00→20:13)
[2016-11-25] MEDS: HYDROGEL DRESSING 90 GM TUBE TP SCH ×2 (15:30→20:17)
[2016-11-25] MEDS: NEOMY SULF/BACITRAC ZN/POLY 15 GM TUBE TP SCH ×2 (15:30→20:18)
[2016-11-25] MEDS: ZINC OXIDE 30 GM TUBE TP SCH ×2 (15:30→20:18)
[2016-11-25] MEDS: CADEXOMER IODINE 40 GM TUBE TP SCH (15:30)
[2016-11-25] MEDS: HYDROGEN PEROXIDE 480 ML BOTTLE TP SCH ×2 (15:30→20:17)
[2016-11-25] MEDS: DAKINS HALF STRENGTH (0.25%) 480 ML BOTTLE TOP SCH ×2 (15:30→20:16)
[2016-11-25] MEDS: NYSTATIN TOP POWDER 15 GM BOTTLE TP SCH ×12 (15:30→20:18)
[2016-11-25] MEDS: hydrALAZINE HCL 25 MG TABLET GT SCH (17:00)
[2016-11-25 18:10] VITALS: BP 116/55
[2016-11-25] MEDS: D5W IV SCH (18:14)
[2016-11-25] MEDS: VANCOMYCIN IV SCH (18:14)
[2016-11-25 19:56] VITALS: BP 123/83
[2016-11-25] MEDS: METOPROLOL TARTRATE 50 MG TABLET GT SCH (21:04)
[2016-11-25] MEDS: AMIKACIN 250 MG in IV D5W 100 ML IV PRN (21:09)
[2016-11-25] MEDS: RENAL NOVASOURCE 1,000 ML BOTTLE GT PRN (22:26)
[2016-11-26] VITALS: BP_SYST 123; BP_SYST 156; BP_DIAS 83
[2016-11-26] MEDS: BLOOD SUGAR DIAGNOSTIC 1 EACH STRIP IN SCH ×5 (00:13→23:43)
[2016-11-26] MEDS: INSULIN REGULAR, HUMAN 100 UNIT/ML 3 ML VIAL SQ PRN ×5 (00:16→23:44)
[2016-11-26] MEDS: ALBUTEROL FS 2.5 MG/3 ML VIAL.NEB NEB SCH ×4 (00:55→19:57)
[2016-11-26] MEDS: IPRATROPIUM NEB FS 0.5 MG/2.5 ML AMPUL.NEB NEB SCH ×4 (00:55→19:57)
[2016-11-26] MEDS: METRONIDAZOLE 500 MG TABLET GT SCH ×3 (05:04→21:59)
[2016-11-26] MEDS: ESOMEPRAZOLE MAG TRIHYDRATE 20 MG CAPSULE.DR GT SCH (05:47)
[2016-11-26 06:00] VITALS: BP 114/86
[2016-11-26 07:52] VITALS: BP 120/87
[2016-11-26] MEDS: NEOMY SULF/BACITRAC ZN/POLY 15 GM TUBE TP SCH ×2 (09:00→21:50)
[2016-11-26] MEDS: INSULIN GLARGINE, 100 UNIT/ML CARTRIDGE SQ SCH ×2 (09:00→21:50)
[2016-11-26] MEDS: PROSOURCE / PROSTAT (PYXIS) 30 ML UDC GT SCH ×3 (09:00→17:28)
[2016-11-26] MEDS: METOPROLOL TARTRATE 50 MG TABLET GT SCH ×2 (09:00→22:04)
[2016-11-26] MEDS: HYDROGEL DRESSING 90 GM TUBE TP SCH ×2 (09:00→21:50)
[2016-11-26] MEDS: LISINOPRIL (20MG) 20 MG TABLET GT SCH (09:00)
[2016-11-26] MEDS: ZINC OXIDE 30 GM TUBE TP SCH ×2 (09:00→21:50)
[2016-11-26] MEDS: CADEXOMER IODINE 40 GM TUBE TP SCH (09:00)
[2016-11-26] MEDS: DAKINS HALF STRENGTH (0.25%) 480 ML BOTTLE TOP SCH ×2 (09:00→21:50)
[2016-11-26] MEDS: CALCITRIOL ORAL SOLUTION 1 MCG/ML GT SCH (09:00)
[2016-11-26] MEDS: HYDROGEN PEROXIDE 480 ML BOTTLE TP SCH ×2 (09:00→21:50)
[2016-11-26] MEDS: VIT B CMPLX 3/FA/VIT C/BIOTIN 1 TAB TABLET GT SCH (09:00)
[2016-11-26] MEDS: hydrALAZINE HCL 25 MG TABLET GT SCH ×2 (09:00→17:00)
[2016-11-26] MEDS: HEPARIN SODIUM, PORCINE 5000 UNITS/1 ML VIAL SQ SCH ×2 (09:00→21:50)
[2016-11-26] MEDS: LACTOBACILLUS RHAMNOSUS GG 1 EACH CAP.SPRINK GT SCH ×2 (09:00→17:28)
[2016-11-26] MEDS: NYSTATIN TOP POWDER 15 GM BOTTLE TP SCH ×12 (09:00→21:50)
[2016-11-26] MEDS: ASCORBIC ACID 500 MG TABLET GT SCH (09:00)
[2016-11-26] MEDS: HYDROCODONE/APAP 5/325MG 1 EACH TABLET GT SCH ×2 (09:00→21:59)
[2016-11-26 14:50] VITALS: BP 118/85
[2016-11-26 18:13] VITALS: BP 115/61
[2016-11-26 20:52] VITALS: BP 123/62
[2016-11-26] MEDS: RENAL NOVASOURCE 1,000 ML BOTTLE GT PRN (23:15)
[2016-11-27 00:30] VITALS: BP 148/73
[2016-11-27] MEDS: IPRATROPIUM NEB FS 0.5 MG/2.5 ML AMPUL.NEB NEB SCH ×3 (01:14→19:49)
[2016-11-27] MEDS: ALBUTEROL FS 2.5 MG/3 ML VIAL.NEB NEB SCH ×3 (01:14→19:49)
[2016-11-27] MEDS: ESOMEPRAZOLE MAG TRIHYDRATE 20 MG CAPSULE.DR GT SCH (05:44)
[2016-11-27] MEDS: METRONIDAZOLE 500 MG TABLET GT SCH (05:44)
[2016-11-27] MEDS: BLOOD SUGAR DIAGNOSTIC 1 EACH STRIP IN SCH ×3 (05:52→23:23)
[2016-11-27] MEDS: INSULIN REGULAR, HUMAN 100 UNIT/ML 3 ML VIAL SQ PRN ×3 (05:53→23:23)
[2016-11-27 06:03] VITALS: BP 146/76
[2016-11-27 07:48] VITALS: BP 138/65
[2016-11-27] MEDS ORDERED: HYDROCODONE/APAP 5/325MG 1 EACH TABLET GT PRN ×2 (08:30→14:30)
[2016-11-27] MEDS: CALCITRIOL ORAL SOLUTION 1 MCG/ML GT SCH (08:35)
[2016-11-27] MEDS: PROSOURCE / PROSTAT (PYXIS) 30 ML UDC GT SCH ×2 (08:35→17:06)
[2016-11-27] MEDS: ASCORBIC ACID 500 MG TABLET GT SCH (08:35)
[2016-11-27] MEDS: INSULIN GLARGINE, 100 UNIT/ML CARTRIDGE SQ SCH ×2 (08:36→20:49)
[2016-11-27] MEDS ORDERED: LACTOBACILLUS RHAMNOSUS GG 1 EACH CAP.SPRINK GT SCH (09:00)
[2016-11-27] MEDS ORDERED: HEPARIN SODIUM, PORCINE 5000 UNITS/1 ML VIAL SQ SCH (09:00)
[2016-11-27] MEDS ORDERED: HYDROCODONE/APAP 5/325MG 1 EACH TABLET GT SCH (09:00)
[2016-11-27] MEDS ORDERED: VIT B CMPLX 3/FA/VIT C/BIOTIN 1 TAB TABLET GT SCH (09:00)
[2016-11-27] MEDS ORDERED: POLYVINYL ALCOHOL 15 ML BOTTLE EACHEYE PRN (14:30)
[2016-11-27] MEDS ORDERED: HYDROGEN PEROXIDE 480 ML BOTTLE TP PRN (14:30)
[2016-11-27] MEDS ORDERED: DEXTROSE 50%-WATER 50 ML DISP.SYRIN IV PRN (14:30)
[2016-11-27 14:40] VITALS: BP 109/56
[2016-11-27] MEDS: CADEXOMER IODINE 40 GM TUBE TP SCH (15:45)
[2016-11-27] MEDS: NEOMY SULF/BACITRAC ZN/POLY 15 GM TUBE TP SCH ×2 (15:45→20:50)
[2016-11-27] MEDS: HYDROGEL DRESSING 90 GM TUBE TP SCH ×2 (15:45→20:50)
[2016-11-27] MEDS: NYSTATIN TOP POWDER 15 GM BOTTLE TP SCH ×5 (15:45)
[2016-11-27] MEDS: DAKINS HALF STRENGTH (0.25%) 480 ML BOTTLE TOP SCH ×2 (15:45→20:50)
[2016-11-27] MEDS: ZINC OXIDE 30 GM TUBE TP SCH (15:46)
[2016-11-27] MEDS ORDERED: hydrALAZINE HCL 25 MG TABLET GT SCH (17:00)
[2016-11-27] MEDS: hydrALAZINE HCL 25 MG TABLET GT SCH (17:00)
[2016-11-27] MEDS: LACTOBACILLUS RHAMNOSUS GG 1 EACH CAP.SPRINK GT SCH (17:06)
[2016-11-27] MEDS: LACTULOSE 10 G/15 ML UDC (PYXIS) GT PRN (17:43)
[2016-11-27 18:16] VITALS: BP 120/60
[2016-11-27 19:45] VITALS: BP 120/70
[2016-11-27] MEDS: HYDROCODONE/APAP 5/325MG 1 EACH TABLET GT SCH (20:48)
[2016-11-27] MEDS: HEPARIN SODIUM, PORCINE 5000 UNITS/1 ML VIAL SQ SCH (20:49)
[2016-11-27] MEDS: HYDROGEN PEROXIDE 480 ML BOTTLE TP SCH (20:50)
[2016-11-27] MEDS: METOPROLOL TARTRATE 50 MG TABLET GT SCH (21:03)
[2016-11-27] MEDS ORDERED: METOPROLOL TARTRATE 50 MG TABLET GT SCH (22:00)
[2016-11-28 00:34] VITALS: BP 134/72
[2016-11-28] MEDS: IPRATROPIUM NEB FS 0.5 MG/2.5 ML AMPUL.NEB NEB SCH ×4 (01:30→19:39)
[2016-11-28] MEDS: ALBUTEROL FS 2.5 MG/3 ML VIAL.NEB NEB SCH ×4 (01:30→19:39)
[2016-11-28] MEDS: BLOOD SUGAR DIAGNOSTIC 1 EACH STRIP IN SCH ×4 (05:21→23:22)
[2016-11-28] MEDS: ESOMEPRAZOLE MAG TRIHYDRATE 20 MG CAPSULE.DR GT SCH (05:21)
[2016-11-28] MEDS: RENAL NOVASOURCE 1,000 ML BOTTLE GT PRN (05:21)
[2016-11-28] MEDS: INSULIN REGULAR, HUMAN 100 UNIT/ML 3 ML VIAL SQ PRN ×4 (05:22→23:22)
[2016-11-28 06:01] VITALS: BP 139/88
[2016-11-28 07:39] VITALS: BP 113/62
[2016-11-28 07:49] VITALS: BP 120/66
[2016-11-28] MEDS ORDERED: METOPROLOL TARTRATE 50 MG TABLET GT SCH (09:00)
[2016-11-28] MEDS: hydrALAZINE HCL 25 MG TABLET GT SCH ×2 (09:00→17:00)
[2016-11-28] MEDS ORDERED: hydrALAZINE HCL 25 MG TABLET GT SCH (09:00)
[2016-11-28] MEDS: CALCITRIOL ORAL SOLUTION 1 MCG/ML GT SCH (09:45)
[2016-11-28] MEDS: LACTOBACILLUS RHAMNOSUS GG 1 EACH CAP.SPRINK GT SCH ×2 (09:45→17:35)
[2016-11-28] MEDS: ASCORBIC ACID 500 MG TABLET GT SCH (09:46)
[2016-11-28] MEDS: LISINOPRIL (20MG) 20 MG TABLET GT SCH (09:46)
[2016-11-28] MEDS: PROSOURCE / PROSTAT (PYXIS) 30 ML UDC GT SCH ×3 (09:46→17:35)
[2016-11-28] MEDS: METOPROLOL TARTRATE 50 MG TABLET GT SCH ×2 (09:46→21:12)
[2016-11-28] MEDS: VIT B CMPLX 3/FA/VIT C/BIOTIN 1 TAB TABLET GT SCH (09:46)
[2016-11-28] MEDS: HEPARIN SODIUM, PORCINE 5000 UNITS/1 ML VIAL SQ SCH ×2 (09:48→20:09)
[2016-11-28] MEDS: INSULIN GLARGINE, 100 UNIT/ML CARTRIDGE SQ SCH ×2 (09:50→20:09)
[2016-11-28] MEDS: NYSTATIN TOP POWDER 15 GM BOTTLE TP SCH ×8 (11:00→20:11)
[2016-11-28] MEDS: CLONIDINE HCL 0.2 MG TABLET GT PRN (12:56)
[2016-11-28] MEDS: HYDROCODONE/APAP 5/325MG 1 EACH TABLET GT SCH ×2 (13:36→20:09)
--- NOTE | 2016-11-28 14:30 | NUR ---
INTERDISCIPLINARY PLAN OF CARE CONFERENCE was held today. Resident's boyfriend was invited but was not able to attend. Dr. Morejon and the Interdisciplinary Team reviewed the current plan of care in detail. Resident continues to attend hemodialysis Thursday, , and Thursday. Resident receiving treatment for right buttock multiple skin tears. No new orders were given.
[2016-11-28] MEDS: HYDROGEL DRESSING 90 GM TUBE TP SCH ×2 (14:40→20:10)
[2016-11-28] MEDS: CADEXOMER IODINE 40 GM TUBE TP SCH ×2 (14:40→16:30)
[2016-11-28] MEDS: DAKINS HALF STRENGTH (0.25%) 480 ML BOTTLE TOP SCH ×2 (14:40→20:10)
[2016-11-28] MEDS: HYDROGEN PEROXIDE 480 ML BOTTLE TP SCH ×2 (14:40→20:10)
[2016-11-28] MEDS: NEOMY SULF/BACITRAC ZN/POLY 15 GM TUBE TP SCH ×2 (14:40→20:11)
[2016-11-28 18:48] VITALS: BP 113/56
[2016-11-28 18:49] VITALS: BP 123/70
[2016-11-28] MEDS: ZINC OXIDE 30 GM TUBE TP SCH (20:11)
[2016-11-29 00:05] VITALS: BP 128/77
[2016-11-29] MEDS: IPRATROPIUM NEB FS 0.5 MG/2.5 ML AMPUL.NEB NEB SCH ×4 (01:25→19:43)
[2016-11-29] MEDS: ALBUTEROL FS 2.5 MG/3 ML VIAL.NEB NEB SCH ×4 (01:26→19:43)
[2016-11-29] MEDS: BLOOD SUGAR DIAGNOSTIC 1 EACH STRIP IN SCH ×4 (05:40→23:31)
[2016-11-29] MEDS: ESOMEPRAZOLE MAG TRIHYDRATE 20 MG CAPSULE.DR GT SCH (05:40)
[2016-11-29] MEDS: RENAL NOVASOURCE 1,000 ML BOTTLE GT PRN (05:40)
[2016-11-29] MEDS: INSULIN REGULAR, HUMAN 100 UNIT/ML 3 ML VIAL SQ PRN ×3 (05:41→23:32)
[2016-11-29 06:12] VITALS: BP 139/76
[2016-11-29 07:38] VITALS: BP 103/64
[2016-11-29] MEDS: PROSOURCE / PROSTAT (PYXIS) 30 ML UDC GT SCH ×3 (09:14→17:54)
[2016-11-29] MEDS: CALCITRIOL ORAL SOLUTION 1 MCG/ML GT SCH (09:14)
[2016-11-29] MEDS: LACTOBACILLUS RHAMNOSUS GG 1 EACH CAP.SPRINK GT SCH ×2 (09:14→17:54)
[2016-11-29] MEDS: VIT B CMPLX 3/FA/VIT C/BIOTIN 1 TAB TABLET GT SCH (09:14)
[2016-11-29] MEDS: ASCORBIC ACID 500 MG TABLET GT SCH (09:14)
[2016-11-29] MEDS: HEPARIN SODIUM, PORCINE 5000 UNITS/1 ML VIAL SQ SCH ×2 (09:15→20:22)
[2016-11-29] MEDS: INSULIN GLARGINE, 100 UNIT/ML CARTRIDGE SQ SCH ×2 (09:16→20:22)
[2016-11-29] MEDS: HYDROCODONE/APAP 5/325MG 1 EACH TABLET GT SCH ×2 (15:00→20:21)
[2016-11-29] MEDS: NYSTATIN TOP POWDER 15 GM BOTTLE TP SCH ×14 (16:00→20:23)
[2016-11-29] MEDS: ZINC OXIDE 30 GM TUBE TP SCH ×2 (16:00→20:23)
[2016-11-29] MEDS: CADEXOMER IODINE 40 GM TUBE TP SCH ×2 (16:00)
[2016-11-29] MEDS: HYDROGEN PEROXIDE 480 ML BOTTLE TP SCH ×2 (16:00→20:22)
[2016-11-29] MEDS: HYDROGEL DRESSING 90 GM TUBE TP SCH ×2 (16:00→20:22)
[2016-11-29] MEDS: NEOMY SULF/BACITRAC ZN/POLY 15 GM TUBE TP SCH ×2 (16:00→20:23)
[2016-11-29] MEDS: DAKINS HALF STRENGTH (0.25%) 480 ML BOTTLE TOP SCH ×2 (16:00→20:22)
[2016-11-29] MEDS: hydrALAZINE HCL 25 MG TABLET GT SCH (17:00)
[2016-11-29 18:36] VITALS: BP 122/53
[2016-11-29 19:49] VITALS: BP 100/58
[2016-11-29] MEDS: METOPROLOL TARTRATE 50 MG TABLET GT SCH (21:25)
[2016-11-30 00:11] VITALS: BP 127/79
[2016-11-30] MEDS: IPRATROPIUM NEB FS 0.5 MG/2.5 ML AMPUL.NEB NEB SCH ×4 (02:17→19:34)
[2016-11-30] MEDS: ALBUTEROL FS 2.5 MG/3 ML VIAL.NEB NEB SCH ×4 (02:17→19:34)
[2016-11-30] MEDS: BLOOD SUGAR DIAGNOSTIC 1 EACH STRIP IN SCH ×4 (05:21→23:47)
[2016-11-30] MEDS: ESOMEPRAZOLE MAG TRIHYDRATE 20 MG CAPSULE.DR GT SCH (05:21)
[2016-11-30] MEDS: LACTULOSE 10 G/15 ML UDC (PYXIS) GT PRN (05:21)
[2016-11-30] MEDS: RENAL NOVASOURCE 1,000 ML BOTTLE GT PRN (05:21)
[2016-11-30] MEDS: INSULIN REGULAR, HUMAN 100 UNIT/ML 3 ML VIAL SQ PRN ×4 (05:22→23:49)
[2016-11-30 06:01] VITALS: BP 129/71
[2016-11-30 07:38] VITALS: BP 75/51
[2016-11-30] MEDS: LISINOPRIL (20MG) 20 MG TABLET GT SCH (09:00)
[2016-11-30] MEDS: hydrALAZINE HCL 25 MG TABLET GT SCH ×2 (09:00→17:00)
[2016-11-30] MEDS: METOPROLOL TARTRATE 50 MG TABLET GT SCH ×2 (09:00→22:00)
[2016-11-30] MEDS: VIT B CMPLX 3/FA/VIT C/BIOTIN 1 TAB TABLET GT SCH (09:42)
[2016-11-30] MEDS: LACTOBACILLUS RHAMNOSUS GG 1 EACH CAP.SPRINK GT SCH ×2 (09:42→17:04)
[2016-11-30] MEDS: HYDROCODONE/APAP 5/325MG 1 EACH TABLET GT SCH ×2 (09:42→21:00)
[2016-11-30] MEDS: CALCITRIOL ORAL SOLUTION 1 MCG/ML GT SCH (09:42)
[2016-11-30] MEDS: PROSOURCE / PROSTAT (PYXIS) 30 ML UDC GT SCH ×3 (09:43→17:04)
[2016-11-30] MEDS: ASCORBIC ACID 500 MG TABLET GT SCH (09:43)
[2016-11-30] MEDS: HEPARIN SODIUM, PORCINE 5000 UNITS/1 ML VIAL SQ SCH ×2 (09:43→21:14)
[2016-11-30] MEDS: CADEXOMER IODINE 40 GM TUBE TP SCH ×3 (09:44)
[2016-11-30] MEDS: HYDROGEL DRESSING 90 GM TUBE TP SCH ×2 (09:44→21:15)
[2016-11-30] MEDS: NYSTATIN TOP POWDER 15 GM BOTTLE TP SCH ×14 (09:44→21:15)
[2016-11-30] MEDS: INSULIN GLARGINE, 100 UNIT/ML CARTRIDGE SQ SCH ×2 (09:44→21:14)
[2016-11-30] MEDS: HYDROGEN PEROXIDE 480 ML BOTTLE TP SCH ×2 (09:44→21:15)
[2016-11-30] MEDS: DAKINS HALF STRENGTH (0.25%) 480 ML BOTTLE TOP SCH ×2 (09:44→21:15)
[2016-11-30] MEDS: ZINC OXIDE 30 GM TUBE TP SCH ×2 (09:45→21:15)
[2016-11-30] MEDS: NEOMY SULF/BACITRAC ZN/POLY 15 GM TUBE TP SCH ×2 (09:45→21:15)
[2016-11-30 15:16] VITALS: BP 110/70
[2016-11-30 18:18] VITALS: BP 93/54
[2016-11-30 19:48] VITALS: BP 134/71
[2016-11-30] MEDS: CLONIDINE HCL 0.2 MG TABLET GT PRN (23:47)
[2016-12-01] VITALS: BP 121/65
[2016-12-01] MEDS: BLOOD SUGAR DIAGNOSTIC 1 EACH STRIP IN SCH ×5 (00:02→23:20)
[2016-12-01] MEDS: INSULIN REGULAR, HUMAN 100 UNIT/ML 3 ML VIAL SQ PRN ×6 (00:04→23:21)
[2016-12-01] MEDS: IPRATROPIUM NEB FS 0.5 MG/2.5 ML AMPUL.NEB NEB SCH ×4 (01:55→19:19)
[2016-12-01] MEDS: ALBUTEROL FS 2.5 MG/3 ML VIAL.NEB NEB SCH ×4 (01:55→19:19)
[2016-12-01] MEDS: RENAL NOVASOURCE 1,000 ML BOTTLE GT PRN (05:04)
[2016-12-01] MEDS: ESOMEPRAZOLE MAG TRIHYDRATE 20 MG CAPSULE.DR GT SCH (05:06)
[2016-12-01 06:00] VITALS: BP 146/68
[2016-12-01 08:00] VITALS: BP 127/66
[2016-12-01] MEDS: CALCITRIOL ORAL SOLUTION 1 MCG/ML GT SCH (08:56)
[2016-12-01] MEDS: VIT B CMPLX 3/FA/VIT C/BIOTIN 1 TAB TABLET GT SCH (08:56)
[2016-12-01] MEDS: hydrALAZINE HCL 25 MG TABLET GT SCH ×2 (08:56→17:17)
[2016-12-01] MEDS: METOPROLOL TARTRATE 50 MG TABLET GT SCH ×2 (08:56→21:17)
[2016-12-01] MEDS: LACTOBACILLUS RHAMNOSUS GG 1 EACH CAP.SPRINK GT SCH ×2 (08:56→17:17)
[2016-12-01] MEDS: LISINOPRIL (20MG) 20 MG TABLET GT SCH (08:56)
[2016-12-01] MEDS: HEPARIN SODIUM, PORCINE 5000 UNITS/1 ML VIAL SQ SCH ×2 (08:57→20:07)
[2016-12-01] MEDS: ASCORBIC ACID 500 MG TABLET GT SCH (08:57)
[2016-12-01] MEDS: PROSOURCE / PROSTAT (PYXIS) 30 ML UDC GT SCH ×3 (08:57→17:17)
[2016-12-01] MEDS: INSULIN GLARGINE, 100 UNIT/ML CARTRIDGE SQ SCH ×2 (08:58→20:07)
--- NOTE | 2016-12-01 11:35 | NUR ---
Received order for wound consult for right bunion wound.
[2016-12-01 12:00] VITALS: BP 136/70
[2016-12-01] MEDS ORDERED: DAKINS HALF STRENGTH (0.25%) 480 ML BOTTLE TOP PRN (14:00)
[2016-12-01] MEDS ORDERED: HYDROGEL DRESSING 90 GM TUBE TP PRN (14:00)
[2016-12-01] MEDS: HYDROCODONE/APAP 5/325MG 1 EACH TABLET GT SCH ×2 (14:30→20:06)
[2016-12-01] MEDS: HYDROGEN PEROXIDE 480 ML BOTTLE TP SCH ×2 (15:30→20:47)
[2016-12-01] MEDS: NYSTATIN TOP POWDER 15 GM BOTTLE TP SCH ×14 (15:30→20:47)
[2016-12-01] MEDS: ZINC OXIDE 30 GM TUBE TP SCH ×2 (15:30→20:47)
[2016-12-01] MEDS: NEOMY SULF/BACITRAC ZN/POLY 15 GM TUBE TP SCH ×2 (15:30→20:47)
[2016-12-01] MEDS: HYDROGEL DRESSING 90 GM TUBE TP SCH ×3 (15:30→20:46)
[2016-12-01] MEDS: DAKINS HALF STRENGTH (0.25%) 480 ML BOTTLE TOP SCH ×3 (15:30→20:46)
[2016-12-01] MEDS: CADEXOMER IODINE 40 GM TUBE TP SCH ×3 (15:30)
[2016-12-01 18:00] VITALS: BP 145/109
[2016-12-01 21:52] VITALS: BP 126/59
[2016-12-02 01:10] VITALS: BP 134/70
[2016-12-02] MEDS: ALBUTEROL FS 2.5 MG/3 ML VIAL.NEB NEB SCH ×4 (01:14→19:13)
[2016-12-02] MEDS: IPRATROPIUM NEB FS 0.5 MG/2.5 ML AMPUL.NEB NEB SCH ×4 (01:14→19:13)
[2016-12-02] MEDS: ESOMEPRAZOLE MAG TRIHYDRATE 20 MG CAPSULE.DR GT SCH (05:17)
[2016-12-02] MEDS: BLOOD SUGAR DIAGNOSTIC 1 EACH STRIP IN SCH ×4 (06:11→23:09)
[2016-12-02] MEDS: INSULIN REGULAR, HUMAN 100 UNIT/ML 3 ML VIAL SQ PRN ×3 (06:12→23:11)
[2016-12-02 06:22] VITALS: BP 138/68
[2016-12-02 08:00] VITALS: BP 141/76
--- NOTE | 2016-12-02 08:20 | NUR ---
WOUND CONSULT PATIENT SEEN AND RIGHT BUNION REGION EVALUATED. PATIENT PRESENTS WITH OPEN WOUND MEASURING 1.5CM X 1CM X UTD, SOME SLOUGH NOTED TO THE WOUND MED WITH GRANULATING TISSUE AND PATIENT DOES RETRACT/WITHDRAW HER FOOT WITH GENTLE CLEANSING OF THE WOUND. THERE IS SMALL AMOUNT OF SEROUS DRNG NOTED AND THE FOOT IS RED A WARM TO TOUCH. PATIENT WITH HISTORY OF PAD, AND THERE ARE NOTED TREATMENT ORDERS IN PLACE FOR USE OF IODOSORB GEL DAILY WITH MEPILEX. ASSOCIATE VETERINARIAN IN AGREEMENT WITH CURRENT TREATMENT PLAN. THERE IS ALSO NOTED JUST MEDIAL TO THIS BUNION WOUND ANOTHER SMALL AREA OF SCABBED WOUND MEASUREING 0.5CM X 0.5CM X UTD. IT IS BROWN IN COLOR. THERE IS NO DRNG NOTED. WOUND CARE RECOMMENDS DPM/SURGICAL CONSULT TO EVALUATE. ALL DISCUSSED WITH PHOTOGRAMMETRIC TECHNICIAN. IN AGREEMENT WITH PLAN OF CARE.
--- NOTE | 2016-12-02 08:53 | NUR ---
Pt was seen by wound nurse Fiordaliza. Received order to continue Iodosorb and to also apply Mepilex on the right bunion wound. According to wound nurse, right bunion wound was probably caused by poor circulation. She asked Dr. Celestine Bettencourt to see the pt's right bunion wound, and Dr. Sprague said he will see the pt today.
[2016-12-02] MEDS: ASCORBIC ACID 500 MG TABLET GT SCH (09:00)
[2016-12-02] MEDS: LACTOBACILLUS RHAMNOSUS GG 1 EACH CAP.SPRINK GT SCH ×2 (09:00→17:25)
[2016-12-02] MEDS: PROSOURCE / PROSTAT (PYXIS) 30 ML UDC GT SCH ×3 (09:00→17:25)
[2016-12-02] MEDS: INSULIN GLARGINE, 100 UNIT/ML CARTRIDGE SQ SCH ×2 (09:00→20:33)
[2016-12-02] MEDS: CALCITRIOL ORAL SOLUTION 1 MCG/ML GT SCH (09:00)
[2016-12-02] MEDS: VIT B CMPLX 3/FA/VIT C/BIOTIN 1 TAB TABLET GT SCH (09:00)
[2016-12-02] MEDS: HEPARIN SODIUM, PORCINE 5000 UNITS/1 ML VIAL SQ SCH ×2 (09:00→20:33)
[2016-12-02 14:00] VITALS: BP 116/57
[2016-12-02] MEDS: RENAL NOVASOURCE 1,000 ML BOTTLE GT PRN (14:30)
[2016-12-02] MEDS: HYDROCODONE/APAP 5/325MG 1 EACH TABLET GT SCH ×2 (14:30→21:27)
[2016-12-02] MEDS: HYDROGEL DRESSING 90 GM TUBE TP SCH ×2 (15:30→21:56)
[2016-12-02] MEDS: HYDROGEN PEROXIDE 480 ML BOTTLE TP SCH ×2 (15:30→21:56)
[2016-12-02] MEDS: CADEXOMER IODINE 40 GM TUBE TP SCH ×3 (15:30)
[2016-12-02] MEDS: NYSTATIN TOP POWDER 15 GM BOTTLE TP SCH ×14 (15:30→20:20)
[2016-12-02] MEDS: ZINC OXIDE 30 GM TUBE TP SCH ×2 (15:30→20:20)
[2016-12-02] MEDS: NEOMY SULF/BACITRAC ZN/POLY 15 GM TUBE TP SCH ×2 (15:30→21:56)
[2016-12-02] MEDS: DAKINS HALF STRENGTH (0.25%) 480 ML BOTTLE TOP SCH ×2 (15:30→21:56)
[2016-12-02] MEDS: hydrALAZINE HCL 25 MG TABLET GT SCH (17:00)
--- NOTE | 2016-12-02 17:00 | NUR ---
Pt was seen by Dr. Celestine Bettencourt and Dr. Rojas. They both said the pt's right bunion wound is an arterial wound and to continue current treatment.
[2016-12-02] MEDS: ACETAMINOPHEN 650 MG/20 ML UDC- FOR SA PATIENTS ONLY GT PRN (17:26)
[2016-12-02 18:00] VITALS: BP 103/49
--- NOTE | 2016-12-02 19:18 | NUR ---
@1800 Resting in bed with eyes closed, noted with some facial grimacing. Unable to rate the pain, due to non-verbal. Responsive to tactile stimuli by opening her eyes. V/S T-99.9, P-95, R-16, B/P-103/49, Tylenol 650mg administered via GT. BS- 197 with 4 units of Regular Insulin given per sliding scale. Kept clean, cooling measures applied. Will continue to observe condition.
--- NOTE | 2016-12-02 19:25 | NUR ---
@1900 T 98.8, no acute distress noted. Administration of cooling measures and Tylenol noted effective. Charge Nurse made aware and endorsed for observation to noc shift nurse. Sleeping at this time.
[2016-12-02 19:55] VITALS: BP 99/54
[2016-12-02] MEDS: METOPROLOL TARTRATE 50 MG TABLET GT SCH (21:27)
[2016-12-03 00:07] VITALS: BP 110/58
[2016-12-03] MEDS: IPRATROPIUM NEB FS 0.5 MG/2.5 ML AMPUL.NEB NEB SCH ×4 (01:02→19:24)
[2016-12-03] MEDS: ALBUTEROL FS 2.5 MG/3 ML VIAL.NEB NEB SCH ×4 (01:02→19:24)
[2016-12-03] MEDS: ESOMEPRAZOLE MAG TRIHYDRATE 20 MG CAPSULE.DR GT SCH (05:30)
[2016-12-03] MEDS: BLOOD SUGAR DIAGNOSTIC 1 EACH STRIP IN SCH ×4 (06:21→23:05)
[2016-12-03] MEDS: INSULIN REGULAR, HUMAN 100 UNIT/ML 3 ML VIAL SQ PRN ×4 (06:22→23:06)
[2016-12-03 06:43] VITALS: BP 118/62
[2016-12-03 08:09] VITALS: BP 103/64
[2016-12-03] MEDS: METOPROLOL TARTRATE 50 MG TABLET GT SCH ×2 (09:00→21:20)
[2016-12-03] MEDS: hydrALAZINE HCL 25 MG TABLET GT SCH ×2 (09:00→17:00)
[2016-12-03] MEDS: NEOMY SULF/BACITRAC ZN/POLY 15 GM TUBE TP SCH ×2 (09:00→21:20)
[2016-12-03] MEDS: CADEXOMER IODINE 40 GM TUBE TP SCH ×3 (09:00)
[2016-12-03] MEDS: DAKINS HALF STRENGTH (0.25%) 480 ML BOTTLE TOP SCH ×2 (09:00→21:19)
[2016-12-03] MEDS: HYDROGEL DRESSING 90 GM TUBE TP SCH ×2 (09:00→21:19)
[2016-12-03] MEDS: HYDROGEN PEROXIDE 480 ML BOTTLE TP SCH ×2 (09:00→21:19)
[2016-12-03] MEDS: ZINC OXIDE 30 GM TUBE TP SCH ×2 (09:00→21:20)
[2016-12-03] MEDS: LISINOPRIL (20MG) 20 MG TABLET GT SCH (09:00)
[2016-12-03] MEDS: NYSTATIN TOP POWDER 15 GM BOTTLE TP SCH ×14 (09:00→21:20)
[2016-12-03] MEDS: LACTOBACILLUS RHAMNOSUS GG 1 EACH CAP.SPRINK GT SCH ×2 (09:53→17:22)
[2016-12-03] MEDS: CALCITRIOL ORAL SOLUTION 1 MCG/ML GT SCH (09:53)
[2016-12-03] MEDS: HEPARIN SODIUM, PORCINE 5000 UNITS/1 ML VIAL SQ SCH ×2 (09:54→20:54)
[2016-12-03] MEDS: HYDROCODONE/APAP 5/325MG 1 EACH TABLET GT SCH ×2 (09:54→20:54)
[2016-12-03] MEDS: ASCORBIC ACID 500 MG TABLET GT SCH (09:54)
[2016-12-03] MEDS: VIT B CMPLX 3/FA/VIT C/BIOTIN 1 TAB TABLET GT SCH (09:54)
[2016-12-03] MEDS: PROSOURCE / PROSTAT (PYXIS) 30 ML UDC GT SCH ×3 (09:54→17:22)
[2016-12-03] MEDS: INSULIN GLARGINE, 100 UNIT/ML CARTRIDGE SQ SCH ×2 (09:58→20:55)
[2016-12-03] MEDS: RENAL NOVASOURCE 1,000 ML BOTTLE GT PRN (17:25)
[2016-12-03 17:59] VITALS: BP 103/64
[2016-12-03 18:01] VITALS: BP 89/59
[2016-12-03 19:53] VITALS: BP 125/63
[2016-12-04 00:10] VITALS: BP 122/60
[2016-12-04] MEDS: ALBUTEROL FS 2.5 MG/3 ML VIAL.NEB NEB SCH ×4 (01:58→19:25)
[2016-12-04] MEDS: IPRATROPIUM NEB FS 0.5 MG/2.5 ML AMPUL.NEB NEB SCH ×4 (01:58→19:25)
[2016-12-04] MEDS: ESOMEPRAZOLE MAG TRIHYDRATE 20 MG CAPSULE.DR GT SCH (05:14)
[2016-12-04 06:09] VITALS: BP 128/60
[2016-12-04] MEDS: INSULIN REGULAR, HUMAN 100 UNIT/ML 3 ML VIAL SQ PRN ×3 (06:13→23:28)
[2016-12-04] MEDS: BLOOD SUGAR DIAGNOSTIC 1 EACH STRIP IN SCH ×4 (06:13→23:27)
[2016-12-04 07:38] VITALS: BP 131/75
[2016-12-04] MEDS: CALCITRIOL ORAL SOLUTION 1 MCG/ML GT SCH (08:35)
[2016-12-04] MEDS: VIT B CMPLX 3/FA/VIT C/BIOTIN 1 TAB TABLET GT SCH (08:36)
[2016-12-04] MEDS: LACTOBACILLUS RHAMNOSUS GG 1 EACH CAP.SPRINK GT SCH ×2 (08:36→17:44)
[2016-12-04] MEDS: PROSOURCE / PROSTAT (PYXIS) 30 ML UDC GT SCH ×3 (08:37→17:44)
[2016-12-04] MEDS: ASCORBIC ACID 500 MG TABLET GT SCH (08:37)
[2016-12-04] MEDS: HYDROCODONE/APAP 5/325MG 1 EACH TABLET GT SCH ×2 (08:37→20:54)
[2016-12-04] MEDS: HEPARIN SODIUM, PORCINE 5000 UNITS/1 ML VIAL SQ SCH ×2 (08:42→20:54)
[2016-12-04] MEDS: INSULIN GLARGINE, 100 UNIT/ML CARTRIDGE SQ SCH ×2 (08:42→20:54)
[2016-12-04] MEDS: ZINC OXIDE 30 GM TUBE TP SCH ×2 (08:43→20:56)
[2016-12-04] MEDS: CADEXOMER IODINE 40 GM TUBE TP SCH ×3 (09:00→15:00)
--- NOTE | 2016-12-04 09:08 | NUR ---
Patient for dialysis today, on ventilator, tolerating well, no respiratory distress at this time. All meds given via GT EXCEPT B/P meds, not given per routine order. Latest BS 226, LANTUS 38 units given per routine order. Latest B/P 122/67, HR 98.
--- NOTE | 2016-12-04 11:10 | NUR ---
Notified THOMAS Leija that pt has been having low grade fever, T 99.2 F this morning. No new order.
--- NOTE | 2016-12-04 14:15 | NUR ---
Patient came back from dialysis, no distress. VS 112/56,62,18, 99.6. Patient awake, INSPECTOR INSULATION provided patient afternoon care. Patient closely monitored.
[2016-12-04] MEDS: NEOMY SULF/BACITRAC ZN/POLY 15 GM TUBE TP SCH ×2 (15:00→20:55)
[2016-12-04] MEDS: NYSTATIN TOP POWDER 15 GM BOTTLE TP SCH ×14 (15:00→20:55)
[2016-12-04] MEDS: DAKINS HALF STRENGTH (0.25%) 480 ML BOTTLE TOP SCH ×2 (15:00→20:55)
[2016-12-04] MEDS: HYDROGEN PEROXIDE 480 ML BOTTLE TP SCH ×2 (15:00→20:55)
[2016-12-04] MEDS: HYDROGEL DRESSING 90 GM TUBE TP SCH ×2 (15:00→20:55)
[2016-12-04] MEDS: hydrALAZINE HCL 25 MG TABLET GT SCH (17:00)
[2016-12-04 17:23] VITALS: BP 91/53
[2016-12-04 19:18] VITALS: BP 91/60
[2016-12-04 20:10] VITALS: BP 92/64
[2016-12-04] MEDS: METOPROLOL TARTRATE 50 MG TABLET GT SCH (21:07)
[2016-12-04] MEDS: LACTULOSE 10 G/15 ML UDC (PYXIS) GT PRN (23:27)
[2016-12-05 00:16] VITALS: BP 104/63
[2016-12-05] MEDS: ALBUTEROL FS 2.5 MG/3 ML VIAL.NEB NEB SCH ×4 (01:30→19:42)
[2016-12-05] MEDS: IPRATROPIUM NEB FS 0.5 MG/2.5 ML AMPUL.NEB NEB SCH ×4 (01:30→19:42)
[2016-12-05] MEDS: ESOMEPRAZOLE MAG TRIHYDRATE 20 MG CAPSULE.DR GT SCH (05:23)
[2016-12-05] MEDS: BLOOD SUGAR DIAGNOSTIC 1 EACH STRIP IN SCH ×4 (05:23→23:18)
[2016-12-05] MEDS: RENAL NOVASOURCE 1,000 ML BOTTLE GT PRN (05:24)
[2016-12-05] MEDS: INSULIN REGULAR, HUMAN 100 UNIT/ML 3 ML VIAL SQ PRN ×4 (05:25→23:19)
[2016-12-05 06:02] VITALS: BP 127/88
[2016-12-05 07:30] VITALS: BP 91/41
[2016-12-05] MEDS: CADEXOMER IODINE 40 GM TUBE TP SCH ×3 (09:00)
[2016-12-05] MEDS: hydrALAZINE HCL 25 MG TABLET GT SCH ×2 (09:00→17:00)
[2016-12-05] MEDS: NYSTATIN TOP POWDER 15 GM BOTTLE TP SCH ×14 (09:00→20:56)
[2016-12-05] MEDS: NEOMY SULF/BACITRAC ZN/POLY 15 GM TUBE TP SCH ×2 (09:00→20:56)
[2016-12-05] MEDS: HYDROGEL DRESSING 90 GM TUBE TP SCH ×2 (09:00→20:55)
[2016-12-05] MEDS: METOPROLOL TARTRATE 50 MG TABLET GT SCH ×2 (09:00→21:02)
[2016-12-05] MEDS: DAKINS HALF STRENGTH (0.25%) 480 ML BOTTLE TOP SCH ×2 (09:00→20:54)
[2016-12-05] MEDS: HYDROGEN PEROXIDE 480 ML BOTTLE TP SCH ×2 (09:00→20:55)
[2016-12-05] MEDS: ZINC OXIDE 30 GM TUBE TP SCH ×2 (09:00→20:57)
[2016-12-05] MEDS: HYDROCODONE/APAP 5/325MG 1 EACH TABLET GT SCH ×3 (09:00→20:52)
[2016-12-05] MEDS: LISINOPRIL (20MG) 20 MG TABLET GT SCH (09:00)
[2016-12-05] MEDS: CALCITRIOL ORAL SOLUTION 1 MCG/ML GT SCH (09:51)
[2016-12-05] MEDS: VIT B CMPLX 3/FA/VIT C/BIOTIN 1 TAB TABLET GT SCH (09:51)
[2016-12-05] MEDS: LACTOBACILLUS RHAMNOSUS GG 1 EACH CAP.SPRINK GT SCH ×2 (09:51→17:00)
[2016-12-05] MEDS: HEPARIN SODIUM, PORCINE 5000 UNITS/1 ML VIAL SQ SCH ×2 (09:52→20:52)
[2016-12-05] MEDS: ASCORBIC ACID 500 MG TABLET GT SCH (09:52)
[2016-12-05] MEDS: PROSOURCE / PROSTAT (PYXIS) 30 ML UDC GT SCH ×3 (09:52→17:00)
[2016-12-05] MEDS: INSULIN GLARGINE, 100 UNIT/ML CARTRIDGE SQ SCH ×2 (09:53→20:53)
--- NOTE | 2016-12-05 11:00 | NUR ---
RT RECEIVED PATIENT TRACHED ON [facility] VENT WITH SETTINGS PER MD ORDER. CASH APPLICATION CLERK DONE. BILAT BREATH SOUNDS ON AUSCULTATION. VENT PLUGGED INTO RED OUTLET. SPARE TRACH AND AMBU BAG AT HEAD OF BED. TX'S GIVEN, NO ADVERSE REACTIONS OBSERVED. SUCTIONED AND MONITORED PRN. NO SOB OR SIGNS OF DISTRESS NOTED AT THIS TIME. WILL CONTINUE TO MONITOR THE PATIENT FOR ANY CHANGES. Addendum: 12/05/16 at 1133 by JAVON STANLEY RT Amended: Links added.
[2016-12-05 12:00] VITALS: BP 91/50
--- NOTE | 2016-12-05 13:05 | NUR ---
INTERDISCIPLINARY PLAN OF CARE CONFERENCE was held today. Resident's boyfriend unable to attend. New orders were reviewed as well as treatments and medication. Dr. Morejon and the interdisciplinary team reviewed the current plan of care in detail. Resident is stable and no changes are noted. Resident continues to go to dialysis.
[2016-12-05 19:21] VITALS: BP 104/75
[2016-12-05 22:50] VITALS: BP 98/55
[2016-12-06] VITALS (7 sets, daily range): BP systolic 94–126; BP diastolic 53–80
[2016-12-06] MEDS: ALBUTEROL FS 2.5 MG/3 ML VIAL.NEB NEB SCH ×4 (02:21→19:20)
[2016-12-06] MEDS: IPRATROPIUM NEB FS 0.5 MG/2.5 ML AMPUL.NEB NEB SCH ×4 (02:21→19:20)
[2016-12-06] MEDS: RENAL NOVASOURCE 1,000 ML BOTTLE GT PRN (05:03)
[2016-12-06] MEDS: ESOMEPRAZOLE MAG TRIHYDRATE 20 MG CAPSULE.DR GT SCH (05:03)
[2016-12-06] MEDS: BLOOD SUGAR DIAGNOSTIC 1 EACH STRIP IN SCH ×4 (05:08→23:18)
[2016-12-06] MEDS: INSULIN REGULAR, HUMAN 100 UNIT/ML 3 ML VIAL SQ PRN ×3 (05:09→23:23)
[2016-12-06] MEDS: LACTOBACILLUS RHAMNOSUS GG 1 EACH CAP.SPRINK GT SCH ×2 (08:27→17:00)
[2016-12-06] MEDS: CALCITRIOL ORAL SOLUTION 1 MCG/ML GT SCH (08:27)
[2016-12-06] MEDS: ASCORBIC ACID 500 MG TABLET GT SCH (08:27)
[2016-12-06] MEDS: VIT B CMPLX 3/FA/VIT C/BIOTIN 1 TAB TABLET GT SCH (08:27)
[2016-12-06] MEDS: PROSOURCE / PROSTAT (PYXIS) 30 ML UDC GT SCH ×3 (08:27→17:00)
[2016-12-06] MEDS: HEPARIN SODIUM, PORCINE 5000 UNITS/1 ML VIAL SQ SCH ×2 (08:28→20:43)
[2016-12-06] MEDS: INSULIN GLARGINE, 100 UNIT/ML CARTRIDGE SQ SCH ×2 (08:29→20:43)
--- NOTE | 2016-12-06 10:00 | NUR ---
Resident left for dialysis in stable condition, afebrile at 98.9. Dr. Castro made rounds but resident just left for dialysis, stated he will see patient at the dialysis center. Addendum: 12/06/16 at 1842 by VALENTINA BENTON RN Dr. Castro was notified that R bunion wound is getting bigger in size 2.5x 1.5. Made him aware that Dr. Sprague saw the patient this week.
--- NOTE | 2016-12-06 14:00 | NUR ---
Resident returned back from dialysis in stable condition. R FA AV fistula intact, dressing in place, no bleeding noted.
[2016-12-06] MEDS: HYDROCODONE/APAP 5/325MG 1 EACH TABLET GT SCH ×2 (14:30→20:43)
--- NOTE | 2016-12-06 14:45 | NUR ---
Left a message to Dr. Castro regarding culture result of the nares - slight growth MRSA. 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
[2016-12-06] MEDS: HYDROGEN PEROXIDE 480 ML BOTTLE TP SCH ×2 (15:30→20:43)
[2016-12-06] MEDS: NEOMY SULF/BACITRAC ZN/POLY 15 GM TUBE TP SCH ×2 (15:30→20:44)
[2016-12-06] MEDS: DAKINS HALF STRENGTH (0.25%) 480 ML BOTTLE TOP SCH ×2 (15:30→20:43)
[2016-12-06] MEDS: HYDROGEL DRESSING 90 GM TUBE TP SCH ×2 (15:30→20:43)
[2016-12-06] MEDS: NYSTATIN TOP POWDER 15 GM BOTTLE TP SCH ×14 (15:30→20:44)
[2016-12-06] MEDS: CADEXOMER IODINE 40 GM TUBE TP SCH ×3 (15:30)
[2016-12-06] MEDS: ZINC OXIDE 30 GM TUBE TP SCH ×2 (15:30→20:44)
[2016-12-06] MEDS: hydrALAZINE HCL 25 MG TABLET GT SCH (17:00)
[2016-12-06] MEDS: ACETAMINOPHEN 650 MG/20 ML UDC- FOR SA PATIENTS ONLY GT PRN (18:27)
--- NOTE | 2016-12-06 18:43 | NUR ---
Left a message to Dr. Castro and Sobia, BASKET MAKER, ID informing practitioner that resident is having low grade fever 99.4-100. R foot red, tender to touch with dry skin. Awaiting for call back, meanwhile cooling measures provided.
--- NOTE | 2016-12-06 19:30 | NUR ---
Sobia returned the call stated that she will inform Susanna, other FURNITURE REFINISHER, ID and per Dr. Castro to notify Dr. Rojas, surgeon. Endorsed to follow up in AM.
[2016-12-06] MEDS: LACTULOSE 10 G/15 ML UDC (PYXIS) GT PRN (20:59)
[2016-12-06] MEDS: METOPROLOL TARTRATE 50 MG TABLET GT SCH (21:00)
[2016-12-07 00:04] VITALS: BP 121/77
[2016-12-07] MEDS: ALBUTEROL FS 2.5 MG/3 ML VIAL.NEB NEB SCH ×4 (00:45→19:31)
[2016-12-07] MEDS: IPRATROPIUM NEB FS 0.5 MG/2.5 ML AMPUL.NEB NEB SCH ×4 (00:45→19:31)
[2016-12-07] MEDS: BLOOD SUGAR DIAGNOSTIC 1 EACH STRIP IN SCH ×4 (05:18→23:55)
[2016-12-07] MEDS: RENAL NOVASOURCE 1,000 ML BOTTLE GT PRN (05:18)
[2016-12-07] MEDS: ESOMEPRAZOLE MAG TRIHYDRATE 20 MG CAPSULE.DR GT SCH (05:18)
[2016-12-07] MEDS: INSULIN REGULAR, HUMAN 100 UNIT/ML 3 ML VIAL SQ PRN ×4 (05:19→23:56)
[2016-12-07 06:03] VITALS: BP 109/79
--- NOTE | 2016-12-07 06:50 | NUR ---
Patient on monitoring for low grade fever, still noted having low grade of 99.9. Cooling measures provided. Will inform Dr. Sun this morning per Dr. Castro. Will endorsed to the next shift accordingly.
[2016-12-07 07:45] VITALS: BP 119/59
[2016-12-07] MEDS: PROSOURCE / PROSTAT (PYXIS) 30 ML UDC GT SCH ×3 (09:00→17:14)
[2016-12-07] MEDS: LISINOPRIL (20MG) 20 MG TABLET GT SCH (09:00)
[2016-12-07] MEDS: hydrALAZINE HCL 25 MG TABLET GT SCH ×2 (09:00→17:00)
[2016-12-07] MEDS: ASCORBIC ACID 500 MG TABLET GT SCH (09:00)
[2016-12-07] MEDS: HEPARIN SODIUM, PORCINE 5000 UNITS/1 ML VIAL SQ SCH ×2 (09:00→21:07)
[2016-12-07] MEDS: INSULIN GLARGINE, 100 UNIT/ML CARTRIDGE SQ SCH ×2 (09:00→21:11)
[2016-12-07] MEDS: METOPROLOL TARTRATE 50 MG TABLET GT SCH ×2 (09:00→21:09)
[2016-12-07] MEDS: VIT B CMPLX 3/FA/VIT C/BIOTIN 1 TAB TABLET GT SCH (09:00)
[2016-12-07] MEDS: CALCITRIOL ORAL SOLUTION 1 MCG/ML GT SCH (09:00)
[2016-12-07] MEDS: RIFAMPIN 300 MG CAPSULE GT SCH (09:00)
[2016-12-07] MEDS: LACTOBACILLUS RHAMNOSUS GG 1 EACH CAP.SPRINK GT SCH ×2 (09:00→17:14)
--- NOTE | 2016-12-07 09:33 | NUR ---
RN NOtes SECURITIES UNDERWRITER David ordered IV Vancomycin and Amikacin Pharmacy to dose and Rifampin 600 mg via GT daily. for infected bunion and BMP start. Called [facility] for dosing. She said she needs most recent BUN, creat. for dosing.
[2016-12-07] MEDS ORDERED: DOSING PER PHARMACY-AMIKACI IV XX PRN (10:00)
[2016-12-07 10:57] LABS: CALCIUM, SERUM 9.9 mg/dL (8.5-10.1); CREATININE 3.1 mg/dL (0.6-1.3)
[2016-12-07] MEDS ORDERED: VANCOMYCIN 500 MG in IV D5W 100ml IV PRN (12:30)
[2016-12-07] MEDS: HYDROCODONE/APAP 5/325MG 1 EACH TABLET GT SCH ×2 (14:00→21:10)
[2016-12-07] MEDS: CADEXOMER IODINE 40 GM TUBE TP SCH ×3 (15:00)
[2016-12-07] MEDS: DAKINS HALF STRENGTH (0.25%) 480 ML BOTTLE TOP SCH ×2 (15:00→21:11)
[2016-12-07] MEDS: NYSTATIN TOP POWDER 15 GM BOTTLE TP SCH ×14 (15:00→21:09)
[2016-12-07] MEDS: NEOMY SULF/BACITRAC ZN/POLY 15 GM TUBE TP SCH ×2 (15:00→21:09)
[2016-12-07] MEDS: ZINC OXIDE 30 GM TUBE TP SCH ×2 (15:00→21:09)
[2016-12-07] MEDS: HYDROGEL DRESSING 90 GM TUBE TP SCH ×2 (15:00→21:07)
[2016-12-07] MEDS: HYDROGEN PEROXIDE 480 ML BOTTLE TP SCH ×2 (15:00→21:09)
[2016-12-07 15:30] VITALS: BP 119/59
[2016-12-07] MEDS ORDERED: VANCOMYCIN 500 MG in IV D5W 100ml IV ONE (16:00)
[2016-12-07] MEDS ORDERED: AMIKACIN 250 MG in IV D5W 100 ML IV ONE (17:00)
[2016-12-07 18:39] VITALS: BP 122/60
[2016-12-07] MEDS ORDERED: AMIKACIN 250 MG in IV D5W 100 ML IV PRN (21:00)
--- NOTE | 2016-12-07 22:00 | NUR ---
RN NOTES Seen and examined by THOMAS Mullins with order to continue Merrem 500mg IV q12hr x14 days. Addendum: 12/08/16 at 0601 by CHUY DAMON RN error in previous notes. Seen and examined by THOMAS Mullins with NNO.
[2016-12-07 22:01] VITALS: BP 119/65
[2016-12-08 00:01] VITALS: BP 125/75
[2016-12-08] MEDS: ALBUTEROL FS 2.5 MG/3 ML VIAL.NEB NEB SCH ×4 (00:35→20:06)
[2016-12-08] MEDS: IPRATROPIUM NEB FS 0.5 MG/2.5 ML AMPUL.NEB NEB SCH ×4 (00:35→20:06)
[2016-12-08] MEDS: RENAL NOVASOURCE 1,000 ML BOTTLE GT PRN (05:31)
[2016-12-08] MEDS: ESOMEPRAZOLE MAG TRIHYDRATE 20 MG CAPSULE.DR GT SCH (05:31)
[2016-12-08] MEDS: BLOOD SUGAR DIAGNOSTIC 1 EACH STRIP IN SCH ×4 (05:31→23:18)
[2016-12-08] MEDS: INSULIN REGULAR, HUMAN 100 UNIT/ML 3 ML VIAL SQ PRN ×4 (05:32→23:19)
[2016-12-08 06:06] VITALS: BP 119/66
[2016-12-08 06:35] LABS: BASOPHILS % (AUTO) 0.3 % (0.0-2.0); EOSINOPHILS # (AUTO) 0.2 /CMM (0.0-0.7); EOSINOPHILS % (AUTO) 1.7 % (0.0-6.0); HEMATOCRIT 30 % (33-45); HEMOGLOBIN 9.7 g/dL (11.5-14.8); LYMPHOCYTES # (AUTO) 1.8 /CMM (0.8-4.8); LYMPHOCYTES % (AUTO) 15.8 % (20.0-44.0); MEAN CORPUSCULAR HEMOGLOBIN 31 PG (26.0-33.0); MEAN CORPUSCULAR HGB CONC 33 g/dl (31.0-36.0); MEAN CORPUSCULAR VOLUME 96 fL (82-100); MONOCYTES % (AUTO) 8.7 % (2.0-12.0); NEUTROPHILS # (AUTO) 8.3 /CMM (1.8-8.9); NEUTROPHILS % (AUTO) 73.5 % (43.0-81.0); PLATELET COUNT (AUTO) 250 /CMM (150-450); RDW COEFFICIENT OF VARIATION 17.6 (11.5-15.0); RED BLOOD CELL COUNT(AUTO) 3.11 MIL/uL (4.0-5.2); WHITE BLOOD COUNT (AUTO) 11.3 K/uL (4.3-11.0)
[2016-12-08 07:05] LABS: CALCIUM, SERUM 10.1 mg/dL (8.5-10.1); CREATININE 3.9 mg/dL (0.6-1.3); POTASSIUM 4.4 mmol/L (3.5-5.1)
[2016-12-08 07:49] VITALS: BP 107/42
[2016-12-08 08:04] LABS: URIC ACID 6.2 mg/dL (2.6-7.2)
[2016-12-08] MEDS: METOPROLOL TARTRATE 50 MG TABLET GT SCH ×2 (09:00→21:12)
[2016-12-08] MEDS: LISINOPRIL (20MG) 20 MG TABLET GT SCH (09:00)
[2016-12-08] MEDS: hydrALAZINE HCL 25 MG TABLET GT SCH ×2 (09:00→17:00)
[2016-12-08] MEDS: MUPIROCIN OINT 2% 22 GM TUBE SCH ×2 (09:01→21:11)
[2016-12-08] MEDS: LACTOBACILLUS RHAMNOSUS GG 1 EACH CAP.SPRINK GT SCH ×2 (09:37→17:00)
[2016-12-08] MEDS: VIT B CMPLX 3/FA/VIT C/BIOTIN 1 TAB TABLET GT SCH (09:37)
[2016-12-08] MEDS: CALCITRIOL ORAL SOLUTION 1 MCG/ML GT SCH (09:37)
[2016-12-08] MEDS: ASCORBIC ACID 500 MG TABLET GT SCH (09:38)
[2016-12-08] MEDS: PROSOURCE / PROSTAT (PYXIS) 30 ML UDC GT SCH ×3 (09:38→17:00)
[2016-12-08] MEDS: RIFAMPIN 300 MG CAPSULE GT SCH (09:38)
[2016-12-08] MEDS: HEPARIN SODIUM, PORCINE 5000 UNITS/1 ML VIAL SQ SCH ×2 (09:39→20:29)
[2016-12-08] MEDS: INSULIN GLARGINE, 100 UNIT/ML CARTRIDGE SQ SCH ×2 (09:40→20:29)
[2016-12-08 12:00] VITALS: BP 110/60
--- NOTE | 2016-12-08 13:00 | NUR ---
Seen by BATCH PLANT SUPERVISOR Hellen Leija. Relayed CBC, BMP, wound C/S to her. No new order. Pt already on IV ATB therapy.
[2016-12-08] MEDS: HYDROCODONE/APAP 5/325MG 1 EACH TABLET GT SCH ×2 (14:00→20:28)
[2016-12-08] MEDS ORDERED: AMIKACIN 250 MG in IV D5W 100 ML IV PRN (14:00)
[2016-12-08] MEDS ORDERED: VANCOMYCIN POST DIALYSIS 500MG IV PRN ×2 (14:00)
[2016-12-08] MEDS: HYDROGEL DRESSING 90 GM TUBE TP SCH ×2 (15:00→21:12)
[2016-12-08] MEDS: DAKINS HALF STRENGTH (0.25%) 480 ML BOTTLE TOP SCH ×2 (15:00→21:11)
[2016-12-08] MEDS: NEOMY SULF/BACITRAC ZN/POLY 15 GM TUBE TP SCH ×2 (15:00→21:12)
[2016-12-08] MEDS: NYSTATIN TOP POWDER 15 GM BOTTLE TP SCH ×14 (15:00→21:12)
[2016-12-08] MEDS: CADEXOMER IODINE 40 GM TUBE TP SCH ×3 (15:00)
[2016-12-08] MEDS: ZINC OXIDE 30 GM TUBE TP SCH ×2 (15:00→21:12)
[2016-12-08] MEDS: HYDROGEN PEROXIDE 480 ML BOTTLE TP SCH ×2 (15:00→21:12)
--- NOTE | 2016-12-08 16:00 | NUR ---
Pt seen by Dr. Rojas. He examined pt's right lower extremity wounds. He said pt has poor circulation. No new order.
[2016-12-08 18:00] VITALS: BP 110/56
[2016-12-08] MEDS: ACETAMINOPHEN 650 MG/20 ML UDC- FOR SA PATIENTS ONLY GT PRN (18:25)
[2016-12-08 19:59] VITALS: BP 116/61
[2016-12-09 00:50] VITALS: BP 118/60
[2016-12-09] MEDS: ALBUTEROL FS 2.5 MG/3 ML VIAL.NEB NEB SCH ×4 (02:07→20:22)
[2016-12-09] MEDS: IPRATROPIUM NEB FS 0.5 MG/2.5 ML AMPUL.NEB NEB SCH ×4 (02:07→20:22)
[2016-12-09] MEDS: ESOMEPRAZOLE MAG TRIHYDRATE 20 MG CAPSULE.DR GT SCH (05:17)
[2016-12-09] MEDS: BLOOD SUGAR DIAGNOSTIC 1 EACH STRIP IN SCH ×4 (06:25→23:18)
[2016-12-09] MEDS: INSULIN REGULAR, HUMAN 100 UNIT/ML 3 ML VIAL SQ PRN ×3 (06:26→23:19)
[2016-12-09 06:36] VITALS: BP 124/60
[2016-12-09 07:32] VITALS: BP 126/73
[2016-12-09] MEDS: LACTOBACILLUS RHAMNOSUS GG 1 EACH CAP.SPRINK GT SCH ×2 (08:22→17:00)
[2016-12-09] MEDS: PROSOURCE / PROSTAT (PYXIS) 30 ML UDC GT SCH ×3 (08:22→17:00)
[2016-12-09] MEDS: VIT B CMPLX 3/FA/VIT C/BIOTIN 1 TAB TABLET GT SCH (08:22)
[2016-12-09] MEDS: ASCORBIC ACID 500 MG TABLET GT SCH (08:22)
[2016-12-09] MEDS: MUPIROCIN OINT 2% 22 GM TUBE SCH ×2 (08:22→21:06)
[2016-12-09] MEDS: CALCITRIOL ORAL SOLUTION 1 MCG/ML GT SCH (08:22)
[2016-12-09] MEDS: RIFAMPIN 300 MG CAPSULE GT SCH (08:22)
[2016-12-09] MEDS: HEPARIN SODIUM, PORCINE 5000 UNITS/1 ML VIAL SQ SCH ×2 (08:23→20:31)
[2016-12-09] MEDS: INSULIN GLARGINE, 100 UNIT/ML CARTRIDGE SQ SCH ×2 (08:23→20:31)
[2016-12-09 14:00] VITALS: BP 110/54
[2016-12-09] MEDS: HYDROCODONE/APAP 5/325MG 1 EACH TABLET GT SCH ×2 (14:00→20:30)
[2016-12-09] MEDS: RENAL NOVASOURCE 1,000 ML BOTTLE GT PRN (14:22)
[2016-12-09] MEDS: NYSTATIN TOP POWDER 15 GM BOTTLE TP SCH ×14 (15:00→21:06)
[2016-12-09] MEDS: HYDROGEN PEROXIDE 480 ML BOTTLE TP SCH ×2 (15:00→21:06)
[2016-12-09] MEDS: DAKINS HALF STRENGTH (0.25%) 480 ML BOTTLE TOP SCH ×2 (15:00→21:06)
[2016-12-09] MEDS: CADEXOMER IODINE 40 GM TUBE TP SCH ×3 (15:00)
[2016-12-09] MEDS: NEOMY SULF/BACITRAC ZN/POLY 15 GM TUBE TP SCH ×2 (15:00→21:06)
[2016-12-09] MEDS: ZINC OXIDE 30 GM TUBE TP SCH ×2 (15:00→21:06)
[2016-12-09] MEDS: HYDROGEL DRESSING 90 GM TUBE TP SCH ×2 (15:00→21:06)
[2016-12-09] MEDS: VANCOMYCIN POST DIALYSIS 500MG IV SCH ×2 (16:08)
[2016-12-09] MEDS: hydrALAZINE HCL 25 MG TABLET GT SCH (17:00)
[2016-12-09] MEDS: AMIKACIN 250 MG in IV D5W 100 ML IV PRN (17:44)
[2016-12-09 18:00] VITALS: BP 112/56
[2016-12-09 20:05] VITALS: BP 100/56
[2016-12-09] MEDS: METOPROLOL TARTRATE 50 MG TABLET GT SCH (21:07)
[2016-12-10 00:44] VITALS: BP 106/60
[2016-12-10] MEDS: ALBUTEROL FS 2.5 MG/3 ML VIAL.NEB NEB SCH ×4 (02:05→19:38)
[2016-12-10] MEDS: IPRATROPIUM NEB FS 0.5 MG/2.5 ML AMPUL.NEB NEB SCH ×4 (02:05→19:38)
[2016-12-10] MEDS: ESOMEPRAZOLE MAG TRIHYDRATE 20 MG CAPSULE.DR GT SCH (06:00)
[2016-12-10] MEDS: CADEXOMER IODINE 40 GM TUBE TP SCH ×3 (09:00)
[2016-12-10] MEDS: NEOMY SULF/BACITRAC ZN/POLY 15 GM TUBE TP SCH ×2 (09:00→21:05)
[2016-12-10] MEDS: LACTOBACILLUS RHAMNOSUS GG 1 EACH CAP.SPRINK GT SCH ×2 (09:00→17:14)
[2016-12-10] MEDS: LISINOPRIL (20MG) 20 MG TABLET GT SCH (09:00)
[2016-12-10] MEDS: ASCORBIC ACID 500 MG TABLET GT SCH (09:00)
[2016-12-10] MEDS: INSULIN GLARGINE, 100 UNIT/ML CARTRIDGE SQ SCH ×2 (09:00→20:29)
[2016-12-10] MEDS: HYDROGEN PEROXIDE 480 ML BOTTLE TP SCH ×2 (09:00→21:05)
[2016-12-10] MEDS: PROSOURCE / PROSTAT (PYXIS) 30 ML UDC GT SCH ×3 (09:00→17:27)
[2016-12-10] MEDS: MUPIROCIN OINT 2% 22 GM TUBE SCH ×2 (09:00→21:04)
[2016-12-10] MEDS: HEPARIN SODIUM, PORCINE 5000 UNITS/1 ML VIAL SQ SCH ×2 (09:00→20:29)
[2016-12-10] MEDS: METOPROLOL TARTRATE 50 MG TABLET GT SCH ×2 (09:00→21:05)
[2016-12-10] MEDS: VIT B CMPLX 3/FA/VIT C/BIOTIN 1 TAB TABLET GT SCH (09:00)
[2016-12-10] MEDS: CALCITRIOL ORAL SOLUTION 1 MCG/ML GT SCH (09:00)
[2016-12-10] MEDS: hydrALAZINE HCL 25 MG TABLET GT SCH ×2 (09:00→17:14)
[2016-12-10] MEDS: HYDROGEL DRESSING 90 GM TUBE TP SCH ×2 (09:00→21:05)
[2016-12-10] MEDS: DAKINS HALF STRENGTH (0.25%) 480 ML BOTTLE TOP SCH ×2 (09:00→21:04)
[2016-12-10] MEDS: RIFAMPIN 300 MG CAPSULE GT SCH (09:00)
[2016-12-10] MEDS: ZINC OXIDE 30 GM TUBE TP SCH ×2 (09:00→21:05)
[2016-12-10] MEDS: HYDROCODONE/APAP 5/325MG 1 EACH TABLET GT SCH ×2 (09:00→20:28)
[2016-12-10] MEDS: NYSTATIN TOP POWDER 15 GM BOTTLE TP SCH ×14 (09:00→21:05)
[2016-12-10] MEDS: INSULIN REGULAR, HUMAN 100 UNIT/ML 3 ML VIAL SQ PRN ×3 (11:44→23:13)
[2016-12-10 12:00] VITALS: BP 123/49
[2016-12-10] MEDS: BLOOD SUGAR DIAGNOSTIC 1 EACH STRIP IN SCH ×3 (12:00→23:12)
[2016-12-10 15:36] VITALS: BP 123/49
[2016-12-10 18:36] VITALS: BP 118/59
[2016-12-10 19:58] VITALS: BP 101/56
[2016-12-11 00:15] VITALS: BP 104/58
[2016-12-11] MEDS: IPRATROPIUM NEB FS 0.5 MG/2.5 ML AMPUL.NEB NEB SCH ×4 (01:30→19:56)
[2016-12-11] MEDS: ALBUTEROL FS 2.5 MG/3 ML VIAL.NEB NEB SCH ×4 (01:30→19:56)
[2016-12-11] MEDS: ESOMEPRAZOLE MAG TRIHYDRATE 20 MG CAPSULE.DR GT SCH (05:11)
[2016-12-11] MEDS: BLOOD SUGAR DIAGNOSTIC 1 EACH STRIP IN SCH ×3 (06:02→17:35)
[2016-12-11] MEDS: INSULIN REGULAR, HUMAN 100 UNIT/ML 3 ML VIAL SQ PRN ×2 (06:03→17:34)
[2016-12-11 06:22] VITALS: BP 110/58
[2016-12-11 07:46] VITALS: BP 97/49
[2016-12-11] MEDS: LACTOBACILLUS RHAMNOSUS GG 1 EACH CAP.SPRINK GT SCH ×2 (08:34→17:28)
[2016-12-11] MEDS: CALCITRIOL ORAL SOLUTION 1 MCG/ML GT SCH (08:34)
[2016-12-11] MEDS: VIT B CMPLX 3/FA/VIT C/BIOTIN 1 TAB TABLET GT SCH (08:34)
[2016-12-11] MEDS: ASCORBIC ACID 500 MG TABLET GT SCH (08:35)
[2016-12-11] MEDS: RIFAMPIN 300 MG CAPSULE GT SCH (08:35)
[2016-12-11] MEDS: MUPIROCIN OINT 2% 22 GM TUBE SCH ×2 (08:35→21:06)
[2016-12-11] MEDS: PROSOURCE / PROSTAT (PYXIS) 30 ML UDC GT SCH ×3 (08:35→17:35)
[2016-12-11] MEDS: HEPARIN SODIUM, PORCINE 5000 UNITS/1 ML VIAL SQ SCH ×2 (08:36→21:06)
[2016-12-11] MEDS: ZINC OXIDE 30 GM TUBE TP SCH ×2 (09:00→21:08)
[2016-12-11] MEDS: NEOMY SULF/BACITRAC ZN/POLY 15 GM TUBE TP SCH ×2 (09:00→21:08)
[2016-12-11] MEDS: HYDROGEN PEROXIDE 480 ML BOTTLE TP SCH ×2 (09:00→21:07)
[2016-12-11] MEDS: NYSTATIN TOP POWDER 15 GM BOTTLE TP SCH ×14 (09:00→21:08)
[2016-12-11] MEDS: CADEXOMER IODINE 40 GM TUBE TP SCH ×3 (09:00)
[2016-12-11] MEDS: INSULIN GLARGINE, 100 UNIT/ML CARTRIDGE SQ SCH ×2 (09:03→21:07)
--- NOTE | 2016-12-11 12:29 | NUR ---
Faxed Amikacin trough (10.4) and Vancomycin trough (17) to [facility] pharmacy for dosing. Obtained order to continue same dose of both Vanco and Amikacin; Vanco and Amikacin trough on 12/18/16. Per IV pharmacist Rosie, no need to draw BUN/ serum creatinine d/t pt is a dialysis pt. Order noted and carried out.
[2016-12-11] MEDS: HYDROCODONE/APAP 5/325MG 1 EACH TABLET GT SCH ×2 (15:15→21:06)
[2016-12-11] MEDS: AMIKACIN 250 MG in IV D5W 100 ML IV PRN (15:33)
--- NOTE | 2016-12-11 15:55 | NUR ---
Faxed referral to Dr. Marino chemical strength tester ( ) for regular eye check up appt, as the resident is due for her yearly checkup. SW will follow up.
[2016-12-11] MEDS: DAKINS HALF STRENGTH (0.25%) 480 ML BOTTLE TOP SCH ×2 (16:00→21:07)
[2016-12-11] MEDS: HYDROGEL DRESSING 90 GM TUBE TP SCH ×2 (16:00→21:07)
[2016-12-11] MEDS: VANCOMYCIN POST DIALYSIS 500MG IV SCH ×2 (16:36)
[2016-12-11] MEDS: hydrALAZINE HCL 25 MG TABLET GT SCH (17:35)
[2016-12-11 18:18] VITALS: BP 103/63
[2016-12-11] MEDS: RENAL NOVASOURCE 1,000 ML BOTTLE GT PRN (20:57)
[2016-12-11] MEDS: METOPROLOL TARTRATE 50 MG TABLET GT SCH (21:08)
[2016-12-11 21:22] VITALS: BP 106/62
[2016-12-12 00:15] VITALS: BP 106/69
[2016-12-12] MEDS: BLOOD SUGAR DIAGNOSTIC 1 EACH STRIP IN SCH ×4 (00:40→18:00)
[2016-12-12] MEDS: INSULIN REGULAR, HUMAN 100 UNIT/ML 3 ML VIAL SQ PRN ×4 (00:41→19:14)
[2016-12-12] MEDS: IPRATROPIUM NEB FS 0.5 MG/2.5 ML AMPUL.NEB NEB SCH ×4 (01:14→19:05)
[2016-12-12] MEDS: ALBUTEROL FS 2.5 MG/3 ML VIAL.NEB NEB SCH ×4 (01:14→19:05)
[2016-12-12] MEDS: ESOMEPRAZOLE MAG TRIHYDRATE 20 MG CAPSULE.DR GT SCH (05:28)
[2016-12-12 06:10] VITALS: BP 110/66
[2016-12-12 07:41] VITALS: BP 118/54
[2016-12-12] MEDS: NYSTATIN TOP POWDER 15 GM BOTTLE TP SCH ×14 (09:00→21:35)
[2016-12-12] MEDS: hydrALAZINE HCL 25 MG TABLET GT SCH ×2 (09:00→17:00)
[2016-12-12] MEDS: DAKINS HALF STRENGTH (0.25%) 480 ML BOTTLE TOP SCH ×2 (09:00→21:34)
[2016-12-12] MEDS: METOPROLOL TARTRATE 50 MG TABLET GT SCH ×2 (09:00→21:36)
[2016-12-12] MEDS: HYDROGEL DRESSING 90 GM TUBE TP SCH ×2 (09:00→21:34)
[2016-12-12] MEDS: VIT B CMPLX 3/FA/VIT C/BIOTIN 1 TAB TABLET GT SCH (09:00)
[2016-12-12] MEDS: HEPARIN SODIUM, PORCINE 5000 UNITS/1 ML VIAL SQ SCH ×2 (09:00→20:02)
[2016-12-12] MEDS: MUPIROCIN OINT 2% 22 GM TUBE SCH ×2 (09:00→21:32)
[2016-12-12] MEDS: ZINC OXIDE 30 GM TUBE TP SCH ×2 (09:00→21:35)
[2016-12-12] MEDS: LACTOBACILLUS RHAMNOSUS GG 1 EACH CAP.SPRINK GT SCH ×2 (09:00→17:00)
[2016-12-12] MEDS: INSULIN GLARGINE, 100 UNIT/ML CARTRIDGE SQ SCH ×2 (09:00→21:33)
[2016-12-12] MEDS: PROSOURCE / PROSTAT (PYXIS) 30 ML UDC GT SCH ×3 (09:00→17:00)
[2016-12-12] MEDS: CADEXOMER IODINE 40 GM TUBE TP SCH ×2 (09:00)
[2016-12-12] MEDS: HYDROGEN PEROXIDE 480 ML BOTTLE TP SCH ×2 (09:00→21:34)
[2016-12-12] MEDS: LISINOPRIL (20MG) 20 MG TABLET GT SCH (09:00)
[2016-12-12] MEDS: RIFAMPIN 300 MG CAPSULE GT SCH (09:00)
[2016-12-12] MEDS: CALCITRIOL ORAL SOLUTION 1 MCG/ML GT SCH (09:00)
[2016-12-12] MEDS: HYDROCODONE/APAP 5/325MG 1 EACH TABLET GT SCH ×2 (09:00→21:39)
[2016-12-12] MEDS: ASCORBIC ACID 500 MG TABLET GT SCH (09:00)
[2016-12-12] MEDS: NEOMY SULF/BACITRAC ZN/POLY 15 GM TUBE TP SCH ×2 (09:00→21:35)
--- NOTE | 2016-12-12 15:15 | NUR ---
Pt picked up by José Miguel (c/o Sky Lorenzo) for hemodialysis at [facility]. Pt was supposed to be picked up at 1230 for 1300 chair time but Sky said it was not in their schedule, although it has been arranged yesterday with their RT Akib according to NED Palacio. Sky also said there was no RT available for the 1300 chair time. Notified [facility] and according to Estella they will be able to accommodate pt later today.
--- NOTE | 2016-12-12 15:42 | NUR ---
Called THOMAS Hernandez to ask for stop dates for pt's antibiotics, left message. THOMAS Ramsay not available, she said to contact THOMAS Mullins.
[2016-12-12 18:21] VITALS: BP 118/54
--- NOTE | 2016-12-12 18:55 | NUR ---
Pt came back from [facility]. BP 128/64 HR 112 T 100.8 R 21 O2 sat 98%. Pt awake.
[2016-12-12] MEDS: ACETAMINOPHEN 650 MG/20 ML UDC- FOR SA PATIENTS ONLY GT PRN (20:00)
--- NOTE | 2016-12-12 20:00 | NUR ---
temp 101.1, given prn tylenol 650 mg via gt. cooling measures in place. pt calm, no respiratory distress noted. all comfort measures rendered.
[2016-12-12 20:19] VITALS: BP 128/64
--- NOTE | 2016-12-12 21:00 | NUR ---
prn tylenol effective. temp 99.5. patient sleeping, calm. all safety measures in place.
[2016-12-13] VITALS (7 sets, daily range): BP systolic 90–157; BP diastolic 52–84
[2016-12-13] MEDS: BLOOD SUGAR DIAGNOSTIC 1 EACH STRIP IN SCH ×5 (00:51→23:16)
[2016-12-13] MEDS: INSULIN REGULAR, HUMAN 100 UNIT/ML 3 ML VIAL SQ PRN ×4 (00:53→23:17)
[2016-12-13] MEDS: IPRATROPIUM NEB FS 0.5 MG/2.5 ML AMPUL.NEB NEB SCH ×4 (01:09→19:29)
[2016-12-13] MEDS: ALBUTEROL FS 2.5 MG/3 ML VIAL.NEB NEB SCH ×4 (01:09→19:29)
[2016-12-13] MEDS: ESOMEPRAZOLE MAG TRIHYDRATE 20 MG CAPSULE.DR GT SCH (06:01)
[2016-12-13] MEDS: ACETAMINOPHEN 650 MG/20 ML UDC- FOR SA PATIENTS ONLY GT PRN ×2 (08:00→17:30)
[2016-12-13] MEDS: VIT B CMPLX 3/FA/VIT C/BIOTIN 1 TAB TABLET GT SCH (08:18)
[2016-12-13] MEDS: ASCORBIC ACID 500 MG TABLET GT SCH (08:18)
[2016-12-13] MEDS: MUPIROCIN OINT 2% 22 GM TUBE SCH ×2 (08:18→21:00)
[2016-12-13] MEDS: PROSOURCE / PROSTAT (PYXIS) 30 ML UDC GT SCH ×3 (08:18→17:00)
[2016-12-13] MEDS: LACTOBACILLUS RHAMNOSUS GG 1 EACH CAP.SPRINK GT SCH ×2 (08:18→17:00)
[2016-12-13] MEDS: RIFAMPIN 300 MG CAPSULE GT SCH (08:18)
[2016-12-13] MEDS: CALCITRIOL ORAL SOLUTION 1 MCG/ML GT SCH (08:18)
[2016-12-13] MEDS: HEPARIN SODIUM, PORCINE 5000 UNITS/1 ML VIAL SQ SCH ×2 (08:20→21:00)
[2016-12-13] MEDS: INSULIN GLARGINE, 100 UNIT/ML CARTRIDGE SQ SCH ×2 (08:21→21:00)
--- NOTE | 2016-12-13 09:33 | NUR ---
DIALYSIS TREATMENT TODAY, V/S TAKEN [facility] BP 99/67 P117 R18 TEMP 98.8 PATIENT LEFT HOSP. WITH VIA AMBULANCE IN STABLE CONDITION.
--- NOTE | 2016-12-13 14:15 | NUR ---
PATIENT IS BACK FROM DIALYSIS TREATMENT IN STABLE CONDITION. MADE COMFORTABLE IN BED. V/S BP 90/52 P120 R18 TEMP 99.8
[2016-12-13] MEDS: HYDROCODONE/APAP 5/325MG 1 EACH TABLET GT SCH ×2 (14:30→21:00)
[2016-12-13] MEDS: AMIKACIN 250 MG in IV D5W 100 ML IV PRN (14:52)
[2016-12-13] MEDS: HYDROGEL DRESSING 90 GM TUBE TP SCH ×2 (15:30→21:00)
[2016-12-13] MEDS: DAKINS HALF STRENGTH (0.25%) 480 ML BOTTLE TOP SCH ×2 (15:30→21:00)
[2016-12-13] MEDS: NEOMY SULF/BACITRAC ZN/POLY 15 GM TUBE TP SCH ×2 (15:30→21:00)
[2016-12-13] MEDS: ZINC OXIDE 30 GM TUBE TP SCH ×2 (15:30→21:00)
[2016-12-13] MEDS: HYDROGEN PEROXIDE 480 ML BOTTLE TP SCH ×2 (15:30→21:00)
[2016-12-13] MEDS: NYSTATIN TOP POWDER 15 GM BOTTLE TP SCH ×14 (15:30→21:00)
[2016-12-13] MEDS: VANCOMYCIN POST DIALYSIS 500MG IV SCH ×2 (16:46)
[2016-12-13] MEDS: hydrALAZINE HCL 25 MG TABLET GT SCH (17:00)
[2016-12-13] MEDS: METOPROLOL TARTRATE 50 MG TABLET GT SCH (22:20)
[2016-12-14] VITALS: BP 92/52
[2016-12-14] MEDS: IPRATROPIUM NEB FS 0.5 MG/2.5 ML AMPUL.NEB NEB SCH ×4 (00:48→20:05)
[2016-12-14] MEDS: ALBUTEROL FS 2.5 MG/3 ML VIAL.NEB NEB SCH ×4 (00:48→20:05)
[2016-12-14] MEDS: ACETAMINOPHEN 650 MG/20 ML UDC- FOR SA PATIENTS ONLY GT PRN (02:43)
--- NOTE | 2016-12-14 02:44 | NUR ---
Given Tylenol 650 mg via GT temp 99.5F, cooling measures initiated, will continue to monitor.
--- NOTE | 2016-12-14 03:59 | NUR ---
TEMPERATURE TAKEN AFTER TYLENOL 98.5F, KEPT COMFORTABLE, REPOSITIONED FOR COMFORT, WILL CONTINUE TO MONITOR.
[2016-12-14] MEDS: ESOMEPRAZOLE MAG TRIHYDRATE 20 MG CAPSULE.DR GT SCH (05:07)
[2016-12-14] MEDS: BLOOD SUGAR DIAGNOSTIC 1 EACH STRIP IN SCH ×4 (05:13→21:46)
[2016-12-14] MEDS: INSULIN REGULAR, HUMAN 100 UNIT/ML 3 ML VIAL SQ PRN ×4 (05:15→21:47)
[2016-12-14] MEDS: RENAL NOVASOURCE 1,000 ML BOTTLE GT PRN (06:04)
[2016-12-14 06:31] VITALS: BP 95/55
[2016-12-14 08:17] VITALS: BP 106/71
[2016-12-14] MEDS: MUPIROCIN OINT 2% 22 GM TUBE SCH ×2 (09:00→21:44)
[2016-12-14] MEDS: HYDROGEL DRESSING 90 GM TUBE TP SCH ×2 (09:00→21:44)
[2016-12-14] MEDS: NYSTATIN TOP POWDER 15 GM BOTTLE TP SCH ×14 (09:00→21:45)
[2016-12-14] MEDS: NEOMY SULF/BACITRAC ZN/POLY 15 GM TUBE TP SCH ×2 (09:00→21:45)
[2016-12-14] MEDS: ZINC OXIDE 30 GM TUBE TP SCH ×2 (09:00→21:45)
[2016-12-14] MEDS: METOPROLOL TARTRATE 50 MG TABLET GT SCH ×2 (09:00→21:46)
[2016-12-14] MEDS: LISINOPRIL (20MG) 20 MG TABLET GT SCH (09:00)
[2016-12-14] MEDS: INSULIN GLARGINE, 100 UNIT/ML CARTRIDGE SQ SCH (09:00)
[2016-12-14] MEDS: DAKINS HALF STRENGTH (0.25%) 480 ML BOTTLE TOP SCH ×2 (09:00→21:44)
[2016-12-14] MEDS: HYDROGEN PEROXIDE 480 ML BOTTLE TP SCH ×2 (09:00→21:45)
[2016-12-14] MEDS: hydrALAZINE HCL 25 MG TABLET GT SCH ×2 (09:00→17:00)
[2016-12-14] MEDS: CALCITRIOL ORAL SOLUTION 1 MCG/ML GT SCH (09:52)
[2016-12-14] MEDS: LACTOBACILLUS RHAMNOSUS GG 1 EACH CAP.SPRINK GT SCH ×2 (09:52→17:10)
[2016-12-14] MEDS: VIT B CMPLX 3/FA/VIT C/BIOTIN 1 TAB TABLET GT SCH (09:52)
[2016-12-14] MEDS: HYDROCODONE/APAP 5/325MG 1 EACH TABLET GT SCH ×2 (09:53→21:44)
[2016-12-14] MEDS: RIFAMPIN 300 MG CAPSULE GT SCH (09:53)
[2016-12-14] MEDS: ASCORBIC ACID 500 MG TABLET GT SCH (09:53)
[2016-12-14] MEDS: PROSOURCE / PROSTAT (PYXIS) 30 ML UDC GT SCH ×3 (09:53→17:11)
[2016-12-14] MEDS: HEPARIN SODIUM, PORCINE 5000 UNITS/1 ML VIAL SQ SCH ×2 (09:54→21:44)
--- NOTE | 2016-12-14 12:01 | NUR ---
BS check at 1200 498. Protocol initiated. 20 UNITS of insulin given per sliding scale order. Charge Nurse RN and MD notified. Will continue to monitor.
[2016-12-14 12:23] VITALS: BP 102/56
[2016-12-14] MEDS ORDERED: *INSULIN REGULAR(HUMULIN R)HUM 100 UNIT/ML VIAL SQ PRN (14:00)
[2016-12-14] MEDS ORDERED: IV NS 0.9% 500 ML IV ONE (14:00)
[2016-12-14] MEDS ORDERED: DEXTROSE 50%-WATER 50 ML DISP.SYRIN IV PRN (14:00)
--- NOTE | 2016-12-14 17:07 | NUR ---
Checked patient blood sugar as scheduled at 12pm 498mg/dl, 20units of insulin regular was given as ordered greater than 400mg/dl. Pt remains alert, no altered level of conciousness. Paged Dr. Ng on-call for Dr. Castro. Awaiting response. At 12:15pm placed a call again to Dr. Ng, no call back yet. Called Dr. Morejon notified resident's change of condition with orders of NS 500 bolus over 5hours and change regular insulin to aggressive sliding scale noted and carried out. Received a call from Dr. Ng and informed him of patient's change of condition and also mentioned to him that I received an order from Dr. Morejon. Dr. Ng ordered to increase lantus to 44units SQ Q12hrs starting tomorrow morning order noted and carried out. Left voice message to John Woodall regarding change of pt condition and new orders.
--- NOTE | 2016-12-14 18:00 | NUR ---
Checked patient blood sugar at 6pm as scheduled 438mg/dl 20units of regular insulin was given as ordered >400mg/dl. Patient both eyes are open. No n/v noted. Ongoing IVF NS 500 bolus over 5hrs as ordered. No altered level of consciousness. Skin is warm and dry to touch. Dr. Morejon notified and he said to call PCP. Called Dr. Castro's office and spoke to on-call Dr. Ng informing him of patient BS = 438mg/dl with regular insulin given as ordered. Dr. Ng said that's fine. Will continue to monitor patient closely. RP patient's John notified.
[2016-12-14 18:07] VITALS: BP 104/60
--- NOTE | 2016-12-14 18:43 | NUR ---
Patient still noted with low grade fever of 99.9. Cooling measures provided. Repositioned for comfort. Kept clean and dry. Pt is on Vanco IV and Amikacin IV after dialysis every es, thurs and sat with no ASE noted for wound infection. Treatment rendered as ordered, tolerated well. Dr. Morejon made aware. Will continue to monitor.
[2016-12-14 19:54] VITALS: BP 129/81
--- NOTE | 2016-12-14 23:45 | NUR ---
RN NOTES Seen by Susanna Hernandez NP, with new orders: CBC, prolactin, blood culture x2 on 12/18/16, Ceftriaxone 2gm IV daily x 10 days for fever, r/o sepsis, noted and carried out.
[2016-12-15] MEDS: CEFTRIAXONE 2 G in IV D5W 100 ML IV SCH (00:30)
--- NOTE | 2016-12-15 00:30 | NUR ---
RN NOTES Started on Ceftriaxone 2gm IV as ordered with no A/R noted. Will continue to monitor closely.
[2016-12-15 00:46] VITALS: BP 122/64
[2016-12-15] MEDS: ALBUTEROL FS 2.5 MG/3 ML VIAL.NEB NEB SCH ×4 (01:30→20:22)
[2016-12-15] MEDS: IPRATROPIUM NEB FS 0.5 MG/2.5 ML AMPUL.NEB NEB SCH ×4 (01:43→20:22)
[2016-12-15] MEDS: ESOMEPRAZOLE MAG TRIHYDRATE 20 MG CAPSULE.DR GT SCH (05:46)
[2016-12-15 06:04] VITALS: BP 114/62
[2016-12-15] MEDS: BLOOD SUGAR DIAGNOSTIC 1 EACH STRIP IN SCH ×4 (06:44→21:29)
[2016-12-15] MEDS: INSULIN REGULAR, HUMAN 100 UNIT/ML 3 ML VIAL SQ PRN ×2 (06:45→21:31)
[2016-12-15 07:55] VITALS: BP 104/69
[2016-12-15] MEDS: HEPARIN SODIUM, PORCINE 5000 UNITS/1 ML VIAL SQ SCH (08:11)
[2016-12-15] MEDS: METOPROLOL TARTRATE 50 MG TABLET GT SCH ×2 (08:12→21:29)
[2016-12-15] MEDS: LACTOBACILLUS RHAMNOSUS GG 1 EACH CAP.SPRINK GT SCH ×2 (08:12→16:14)
[2016-12-15] MEDS: CALCITRIOL ORAL SOLUTION 1 MCG/ML GT SCH (08:12)
[2016-12-15] MEDS: hydrALAZINE HCL 25 MG TABLET GT SCH ×2 (08:12→16:14)
[2016-12-15] MEDS: INSULIN GLARGINE, 100 UNIT/ML CARTRIDGE SQ SCH ×2 (08:13→21:27)
[2016-12-15] MEDS: VIT B CMPLX 3/FA/VIT C/BIOTIN 1 TAB TABLET GT SCH (08:13)
[2016-12-15] MEDS: MUPIROCIN OINT 2% 22 GM TUBE SCH ×3 (08:13→21:26)
[2016-12-15] MEDS: RIFAMPIN 300 MG CAPSULE GT SCH (08:13)
[2016-12-15] MEDS: DAKINS HALF STRENGTH (0.25%) 480 ML BOTTLE TOP SCH ×2 (08:13→21:28)
[2016-12-15] MEDS: ASCORBIC ACID 500 MG TABLET GT SCH (08:13)
[2016-12-15] MEDS: LISINOPRIL (20MG) 20 MG TABLET GT SCH (08:13)
[2016-12-15] MEDS: PROSOURCE / PROSTAT (PYXIS) 30 ML UDC GT SCH ×3 (08:13→16:14)
[2016-12-15] MEDS: HYDROGEL DRESSING 90 GM TUBE TP SCH ×2 (08:14→21:28)
[2016-12-15] MEDS: NEOMY SULF/BACITRAC ZN/POLY 15 GM TUBE TP SCH ×2 (08:14→21:28)
[2016-12-15] MEDS: ZINC OXIDE 30 GM TUBE TP SCH ×2 (08:14→21:28)
[2016-12-15] MEDS: HYDROGEN PEROXIDE 480 ML BOTTLE TP SCH ×2 (08:14→21:28)
[2016-12-15] MEDS: NYSTATIN TOP POWDER 15 GM BOTTLE TP SCH ×14 (08:14→21:28)
[2016-12-15] MEDS ORDERED: INSULIN GLARGINE, 100 UNIT/ML CARTRIDGE SQ SCH (09:00)
--- NOTE | 2016-12-15 09:16 | NUR ---
Notified Dr. Morejon that pt has 500 cc coffee-ground gastric residual. Received order to hold gastric feeding, give NS 50 cc/hr IV and check Hgb & Hct.
--- NOTE | 2016-12-15 09:18 | NUR ---
Pt's boyfriend John called. Notified him of gastric residual and new orders.
[2016-12-15 10:51] LABS: HEMOGLOBIN 9.2 g/dL (11.5-14.8)
[2016-12-15] MEDS: IV NS 0.9% 1,000 ML IV PRN (11:15)
--- NOTE | 2016-12-15 11:45 | NUR ---
Relayed Hgb 9.[address] Morejon. Received order to repeat H & H in 6 hours.
[2016-12-15 12:00] VITALS: BP 91/56
[2016-12-15] MEDS: HYDROCODONE/APAP 5/325MG 1 EACH TABLET GT SCH ×2 (13:16→21:26)
--- NOTE | 2016-12-15 15:28 | NUR ---
Pt still with coffee ground gastric residual, 150 cc. GT feeding has been held. Pt on NS 50 cc/hr IV. Paged Dr. Castro, spoke with Selena.
--- NOTE | 2016-12-15 15:59 | NUR ---
Notified Dr. Morejon that pt still has coffee ground gastric residual 150 cc. Received order for GI consult and to hold Heparin.
--- NOTE | 2016-12-15 16:32 | NUR ---
Called Dr. Laird's office and left message with Na. She said Dr. Laird is seeing a pt at this time but she will give him the message.
--- NOTE | 2016-12-15 17:54 | NUR ---
Notified THOMAS Leija that pt's blood sugar is 225, GT feeding is on hold, pt was given Lantus insulin 44 units this morning, pt on NS 50 cc/hr IV. She ordered to hold Humulin R insulin coverage for blood sugar 225. She said she will see pt today. Addendum: 12/16/16 at 0858 by GEORGE CLEARY RN THOMAS Leija said to continue giving Lantus insulin.
[2016-12-15 18:21] LABS: HEMOGLOBIN 8.6 g/dL (11.5-14.8)
--- NOTE | 2016-12-15 19:01 | NUR ---
Seen by THOMAS Leija. Pt's has gastric residual 150 cc, yellowish in color. BP 99/56 HR 64 R 14 T 99.1 O2 sat 98%.
--- NOTE | 2016-12-15 19:30 | NUR ---
RN NOTES Seen and examined by Hellen Leija notified Hgb 8.6, Hct 27, with new order for CBC in am, noted and carried out.
[2016-12-15 19:52] VITALS: BP 118/66
[2016-12-16] MEDS: CEFTRIAXONE 2 G in IV D5W 100 ML IV SCH ×2 (00:44→23:59)
[2016-12-16 00:48] VITALS: BP 102/60
[2016-12-16] MEDS: ALBUTEROL FS 2.5 MG/3 ML VIAL.NEB NEB SCH ×4 (01:12→19:30)
[2016-12-16] MEDS: IPRATROPIUM NEB FS 0.5 MG/2.5 ML AMPUL.NEB NEB SCH ×4 (01:12→19:30)
[2016-12-16] MEDS: ESOMEPRAZOLE MAG TRIHYDRATE 20 MG CAPSULE.DR GT SCH (05:52)
[2016-12-16 06:01] VITALS: BP 104/58
[2016-12-16] MEDS: BLOOD SUGAR DIAGNOSTIC 1 EACH STRIP IN SCH ×4 (06:35→21:27)
[2016-12-16] MEDS: INSULIN REGULAR, HUMAN 100 UNIT/ML 3 ML VIAL SQ PRN ×3 (06:36→21:29)
[2016-12-16 07:27] LABS: BASOPHILS % (AUTO) 0.2 % (0.0-2.0); EOSINOPHILS # (AUTO) 0.3 /CMM (0.0-0.7); HEMATOCRIT 28 % (33-45); LYMPHOCYTES # (AUTO) 1.4 /CMM (0.8-4.8); LYMPHOCYTES % (AUTO) 11.5 % (20.0-44.0); MEAN CORPUSCULAR HEMOGLOBIN 31 PG (26.0-33.0); MEAN CORPUSCULAR HGB CONC 33 g/dl (31.0-36.0); MEAN CORPUSCULAR VOLUME 97 fL (82-100); MONOCYTES # (AUTO) 0.7 /CMM (0.1-1.30); MONOCYTES % (AUTO) 5.8 % (2.0-12.0); NEUTROPHILS % (AUTO) 80.5 % (43.0-81.0); PLATELET COUNT (AUTO) 247 /CMM (150-450); RDW COEFFICIENT OF VARIATION 18.3 (11.5-15.0); RED BLOOD CELL COUNT(AUTO) 2.87 MIL/uL (4.0-5.2); WHITE BLOOD COUNT (AUTO) 12.5 K/uL (4.3-11.0)
[2016-12-16 07:30] VITALS: BP 115/70
--- NOTE | 2016-12-16 08:24 | NUR ---
Dr. Laird called. Notified him that pt had 500 cc of coffee ground gastric residual yesterday morning, feeding has been on hold, pt on IV fluids, that gastric residual was yellowish in the early evening and dark green this morning. Also notified him of Hgb 9.2 yesterday and 9.0 today. He said he will see the pt.
[2016-12-16] MEDS: CALCITRIOL ORAL SOLUTION 1 MCG/ML GT SCH (08:51)
[2016-12-16] MEDS: LACTOBACILLUS RHAMNOSUS GG 1 EACH CAP.SPRINK GT SCH ×2 (08:51→17:19)
[2016-12-16] MEDS: HYDROCODONE/APAP 5/325MG 1 EACH TABLET GT SCH ×2 (08:51→21:24)
[2016-12-16] MEDS: VIT B CMPLX 3/FA/VIT C/BIOTIN 1 TAB TABLET GT SCH (08:51)
[2016-12-16] MEDS: MUPIROCIN OINT 2% 22 GM TUBE SCH ×2 (08:51→21:25)
[2016-12-16] MEDS: PROSOURCE / PROSTAT (PYXIS) 30 ML UDC GT SCH ×3 (08:51→17:19)
[2016-12-16] MEDS: RIFAMPIN 300 MG CAPSULE GT SCH (08:51)
[2016-12-16] MEDS: ASCORBIC ACID 500 MG TABLET GT SCH (08:51)
[2016-12-16] MEDS: INSULIN GLARGINE, 100 UNIT/ML CARTRIDGE SQ SCH (08:56)
--- NOTE | 2016-12-16 09:03 | NUR ---
Seen by Dr. Morejon. Notified him that pt's gastric residual this morning is dark green in color, Hgb 9.0, that Dr. Laird will see her. No new order at this time.
--- NOTE | 2016-12-16 09:15 | NUR ---
Showed Dr. Morejon the small amount of dark reddish brown stool in the colostomy bag. Notified him that pt only has a small amount of stool since yesterday. Dr. Morejon ordered a KUB and stool OB.
--- NOTE | 2016-12-16 09:20 | NUR ---
Relayed CBC result to Dr. Morejon.
[2016-12-16] MEDS: NYSTATIN TOP POWDER 15 GM BOTTLE TP SCH ×14 (09:21→21:27)
[2016-12-16] MEDS: HYDROGEL DRESSING 90 GM TUBE TP SCH ×2 (09:21→21:26)
[2016-12-16] MEDS: HYDROGEN PEROXIDE 480 ML BOTTLE TP SCH ×2 (09:21→21:26)
[2016-12-16] MEDS: DAKINS HALF STRENGTH (0.25%) 480 ML BOTTLE TOP SCH ×2 (09:21→21:26)
[2016-12-16] MEDS: ZINC OXIDE 30 GM TUBE TP SCH ×2 (09:22→21:27)
[2016-12-16] MEDS: NEOMY SULF/BACITRAC ZN/POLY 15 GM TUBE TP SCH ×2 (09:22→21:27)
[2016-12-16 16:12] VITALS: BP 91/57
[2016-12-16] MEDS: VANCOMYCIN POST DIALYSIS 500MG IV SCH ×2 (16:36)
[2016-12-16] MEDS: IV NS 0.9% 1,000 ML IV PRN (16:38)
[2016-12-16] MEDS: hydrALAZINE HCL 25 MG TABLET GT SCH (17:00)
--- NOTE | 2016-12-16 17:13 | NUR ---
Relayed KUB result to Dr. Morejon. He said to forward the result to GI doctor. Still waiting for GI doctor to see pt today. Dr. Morejon ordered to connect GT to intermittent suction.
[2016-12-16] MEDS: AMIKACIN 250 MG in IV D5W 100 ML IV PRN (18:03)
--- NOTE | 2016-12-16 18:15 | NUR ---
GT connected to intermittent suction, noted 100 cc of fina colored gastric residual in the canister.
[2016-12-16 18:49] VITALS: BP 105/58
[2016-12-16 20:00] VITALS: BP 99/56
--- NOTE | 2016-12-16 20:00 | NUR ---
RN NOTE; PT WAS SEEN AND EXAMINED BY DR. ANDREW AT THE BED SIDE. PER MD TO D/C THE SUCTION AND MAY RESUME THE GTF . START WITH A LOW DOSE AND INCREASE TOLERATED TO THE GOAL OF 45ML/HR. MD ALSO W/ AN ODER FOR [id number] IVP Q8HRS X3 DOSES. D/C IVF AND RESUME FREE WATER FLUSHING VIA GT. PT W/ AN EXISTING ORDER OF 100ML Q SHIFT. ALL NEW ORDERS NOTED. WILL CONT TO MONITOR.
--- NOTE | 2016-12-16 20:35 | NUR ---
RN NOTE; RECEIVED A CALL FROM PHARMACY RECOMMENDING TO REDUCE THE DOSE OF REGLAN FROM 10 TO 5MG Q8HRS . PAGED DR. ANDREW FOR APPROVAL. AWAITING FOR HIS CALL BACK
--- NOTE | 2016-12-16 20:50 | NUR ---
RN NOTE; RECEIVED A CALL BACK FROM DR. ANDREW. MD APPROVED THE REGLAN DOSE TO BE REDUCED TO 5MG Q 8HRS X 3 DOSES. ASKED MD IF WE CAN RESUME THE HEPARIN SUBQ. DR ANDREW ALSO APPROVED AND ORDERED TO RESUME THE HEPARIN 5000 UNIT SUB Q EVERY 12HRS. NEW ORDERS WERE FAXED AND CALLED TO THE [facility]. WILL CONT TO MONITOR .
[2016-12-16] MEDS: HEPARIN SODIUM, PORCINE 5000 UNITS/1 ML VIAL SQ SCH (21:25)
[2016-12-16] MEDS: METOPROLOL TARTRATE 50 MG TABLET GT SCH (21:27)
[2016-12-16] MEDS: METOCLOPRAMIDE HCL 10 MG/2 ML VIAL IV SCH (21:33)
[2016-12-16] MEDS ORDERED: METOCLOPRAMIDE HCL 10 MG/2 ML VIAL IV SCH (22:00)
[2016-12-17 00:04] VITALS: BP 98/64
[2016-12-17] MEDS: ALBUTEROL FS 2.5 MG/3 ML VIAL.NEB NEB SCH ×4 (01:30→19:27)
[2016-12-17] MEDS: IPRATROPIUM NEB FS 0.5 MG/2.5 ML AMPUL.NEB NEB SCH ×4 (01:30→19:27)
[2016-12-17] MEDS: ESOMEPRAZOLE MAG TRIHYDRATE 20 MG CAPSULE.DR GT SCH (05:29)
[2016-12-17] MEDS: METOCLOPRAMIDE HCL 10 MG/2 ML VIAL IV SCH ×2 (05:50→12:44)
[2016-12-17 06:06] VITALS: BP 96/60
[2016-12-17] MEDS ORDERED: RENAL NOVASOURCE 1,000 ML BOTTLE GT PRN (06:30)
[2016-12-17] MEDS: BLOOD SUGAR DIAGNOSTIC 1 EACH STRIP IN SCH ×4 (06:33→23:40)
[2016-12-17] MEDS: INSULIN REGULAR, HUMAN 100 UNIT/ML 3 ML VIAL SQ PRN ×4 (06:35→23:42)
[2016-12-17 07:46] VITALS: BP 116/71
[2016-12-17] MEDS: hydrALAZINE HCL 25 MG TABLET GT SCH ×2 (09:00→17:00)
[2016-12-17] MEDS: INSULIN GLARGINE, 100 UNIT/ML CARTRIDGE SQ SCH ×2 (09:00→21:50)
[2016-12-17] MEDS: CALCITRIOL ORAL SOLUTION 1 MCG/ML GT SCH (09:38)
[2016-12-17] MEDS: LACTOBACILLUS RHAMNOSUS GG 1 EACH CAP.SPRINK GT SCH ×2 (09:39→17:00)
[2016-12-17] MEDS: METOPROLOL TARTRATE 50 MG TABLET GT SCH ×2 (09:39→21:51)
[2016-12-17] MEDS: PROSOURCE / PROSTAT (PYXIS) 30 ML UDC GT SCH ×3 (09:40→17:00)
[2016-12-17] MEDS: VIT B CMPLX 3/FA/VIT C/BIOTIN 1 TAB TABLET GT SCH (09:40)
[2016-12-17] MEDS: RIFAMPIN 300 MG CAPSULE GT SCH (09:41)
[2016-12-17] MEDS: LISINOPRIL (20MG) 20 MG TABLET GT SCH (09:41)
[2016-12-17] MEDS: HEPARIN SODIUM, PORCINE 5000 UNITS/1 ML VIAL SQ SCH ×2 (09:42→21:49)
[2016-12-17] MEDS: MUPIROCIN OINT 2% 22 GM TUBE SCH ×2 (09:42→21:49)
[2016-12-17] MEDS: ASCORBIC ACID 500 MG TABLET GT SCH (09:42)
[2016-12-17] MEDS: HYDROCODONE/APAP 5/325MG 1 EACH TABLET GT SCH ×3 (09:43→22:00)
--- NOTE | 2016-12-17 10:05 | NUR ---
Received resident with feeding rate running at 10cc/hr. tolerating well. Increased GT feeding to 20cc/hr and will gradually increase until desired rate of 45 cc/hr is reached. No nausea and vomiting, no gastric residual.
[2016-12-17] MEDS: ZINC OXIDE 30 GM TUBE TP SCH ×2 (10:15→21:51)
[2016-12-17] MEDS: NYSTATIN TOP POWDER 15 GM BOTTLE TP SCH ×14 (10:15→21:51)
[2016-12-17] MEDS: HYDROGEL DRESSING 90 GM TUBE TP SCH ×2 (10:15→21:50)
[2016-12-17] MEDS: HYDROGEN PEROXIDE 480 ML BOTTLE TP SCH ×2 (10:15→21:50)
[2016-12-17] MEDS: NEOMY SULF/BACITRAC ZN/POLY 15 GM TUBE TP SCH ×2 (10:15→21:51)
[2016-12-17] MEDS: DAKINS HALF STRENGTH (0.25%) 480 ML BOTTLE TOP SCH ×2 (10:17→21:50)
[2016-12-17 12:00] VITALS: BP 120/78
--- NOTE | 2016-12-17 15:30 | NUR ---
Left a message to Dr. Laird to inform him that colostomy bag draining loose stool dark brown in color mixed with blood. Stool for OB negative. Awaiting for MD to call back. Patient's feeding increased to 45 cc/hr. tolerating well, no gastric residual.
--- NOTE | 2016-12-17 16:00 | NUR ---
Noted resident's R 2nd, 3rd and 4th toes red with gangrenous area, treatment initiated. Wound consult obtain.
[2016-12-17 18:00] VITALS: BP 124/62
[2016-12-17 20:07] VITALS: BP 137/77
[2016-12-17] MEDS ORDERED: DEXTROSE 50%-WATER 50 ML DISP.SYRIN IV PRN (20:30)
[2016-12-17] MEDS: POVIDONE-IODINE OINT 28.4 GM TUBE TP SCH (21:50)
[2016-12-18] VITALS: BP 128/72
[2016-12-18] MEDS: CEFTRIAXONE 2 G in IV D5W 100 ML IV SCH (00:24)
[2016-12-18] MEDS: IPRATROPIUM NEB FS 0.5 MG/2.5 ML AMPUL.NEB NEB SCH ×4 (01:30→20:06)
[2016-12-18] MEDS: ALBUTEROL FS 2.5 MG/3 ML VIAL.NEB NEB SCH ×4 (01:30→20:06)
[2016-12-18] MEDS: BLOOD SUGAR DIAGNOSTIC 1 EACH STRIP IN SCH ×3 (05:29→17:38)
[2016-12-18] MEDS: ESOMEPRAZOLE MAG TRIHYDRATE 20 MG CAPSULE.DR GT SCH (05:29)
[2016-12-18] MEDS: INSULIN REGULAR, HUMAN 100 UNIT/ML 3 ML VIAL SQ PRN ×2 (05:30→17:48)
[2016-12-18 05:48] LABS: BASOPHILS % (AUTO) 0.5 % (0.0-2.0); EOSINOPHILS # (AUTO) 0.2 /CMM (0.0-0.7); EOSINOPHILS % (AUTO) 2.8 % (0.0-6.0); HEMATOCRIT 29 % (33-45); HEMOGLOBIN 9.2 g/dL (11.5-14.8); LYMPHOCYTES # (AUTO) 1.1 /CMM (0.8-4.8); LYMPHOCYTES % (AUTO) 12.8 % (20.0-44.0); MEAN CORPUSCULAR HEMOGLOBIN 30 PG (26.0-33.0); MEAN CORPUSCULAR HGB CONC 32 g/dl (31.0-36.0); MEAN CORPUSCULAR VOLUME 96 fL (82-100); MONOCYTES # (AUTO) 0.7 /CMM (0.1-1.30); MONOCYTES % (AUTO) 7.9 % (2.0-12.0); NEUTROPHILS # (AUTO) 6.8 /CMM (1.8-8.9); PLATELET COUNT (AUTO) 265 /CMM (150-450); RDW COEFFICIENT OF VARIATION 17.3 (11.5-15.0); RED BLOOD CELL COUNT(AUTO) 3.04 MIL/uL (4.0-5.2); WHITE BLOOD COUNT (AUTO) 8.9 K/uL (4.3-11.0)
[2016-12-18 06:31] VITALS: BP 126/76
--- NOTE | 2016-12-18 06:56 | NUR ---
Pt noted last night with 100cc of residual yellowish with tinged of blood,feeding hold for 1hr and re checked and aspirated 50cc of yellow/greenish color.Colostomy bag with 300cc of output,brownish/reddish in color watery.Vitals sign stable no distress,no emesis.Will endorse to continue to monitor.
[2016-12-18 08:17] VITALS: BP 116/74
[2016-12-18] MEDS: VIT B CMPLX 3/FA/VIT C/BIOTIN 1 TAB TABLET GT SCH (08:50)
[2016-12-18] MEDS: ASCORBIC ACID 500 MG TABLET GT SCH (08:50)
[2016-12-18] MEDS: RIFAMPIN 300 MG CAPSULE GT SCH (08:50)
[2016-12-18] MEDS: MUPIROCIN OINT 2% 22 GM TUBE SCH ×2 (08:50→20:44)
[2016-12-18] MEDS: CALCITRIOL ORAL SOLUTION 1 MCG/ML GT SCH (08:50)
[2016-12-18] MEDS: PROSOURCE / PROSTAT (PYXIS) 30 ML UDC GT SCH ×3 (08:50→17:38)
[2016-12-18] MEDS: LACTOBACILLUS RHAMNOSUS GG 1 EACH CAP.SPRINK GT SCH ×2 (08:50→17:38)
[2016-12-18] MEDS: HEPARIN SODIUM, PORCINE 5000 UNITS/1 ML VIAL SQ SCH ×2 (08:51→20:44)
[2016-12-18] MEDS: INSULIN GLARGINE, 100 UNIT/ML CARTRIDGE SQ SCH ×2 (08:51→20:45)
[2016-12-18] MEDS: DAKINS HALF STRENGTH (0.25%) 480 ML BOTTLE TOP SCH ×2 (09:00→20:45)
--- NOTE | 2016-12-18 10:04 | NUR ---
Pt had 500 cc greenish gastric residual. Notified Dr. Laird and received order to give Reglan 5 mg IV q 8 hours. Pt at [facility] at this time.
[2016-12-18 14:30] VITALS: BP 91/43
[2016-12-18] MEDS: METOCLOPRAMIDE HCL 10 MG/2 ML VIAL IV SCH ×2 (14:30→21:05)
--- NOTE | 2016-12-18 14:55 | NUR ---
Administered Reglan 5 mg IVP, pt was at [facility] at 1300.
--- NOTE | 2016-12-18 15:00 | NUR ---
Received order to DC Vancomycin 500 mg IV q after hemodialysis, hold dose today, start Vancomycin 400 mg IV 3 times weekly q Thursday, , Thursday on 12/20/16. Also received order to continue Amikacin 250 mg IV q after dialysis. Random Vancomycin and Amikacin levels on 12/23/16.
--- NOTE | 2016-12-18 16:39 | NUR ---
Sacral wound seen by Dr. Celestine Bettencourt. He said the wound looks good and he is not going to do debridement. Addendum: 12/23/16 at 1020 by GEORGE CLEARY RN ERROR IN CHARTING
[2016-12-18] MEDS: hydrALAZINE HCL 25 MG TABLET GT SCH (17:00)
[2016-12-18] MEDS: HYDROCODONE/APAP 5/325MG 1 EACH TABLET GT SCH ×2 (17:36→21:00)
[2016-12-18] MEDS: HYDROGEN PEROXIDE 480 ML BOTTLE TP SCH ×2 (17:36→20:45)
[2016-12-18] MEDS: HYDROGEL DRESSING 90 GM TUBE TP SCH ×2 (17:36→20:45)
[2016-12-18] MEDS: POVIDONE-IODINE OINT 28.4 GM TUBE TP SCH ×2 (17:36→20:45)
[2016-12-18] MEDS: CADEXOMER IODINE 40 GM TUBE TP SCH (17:37)
[2016-12-18] MEDS: NEOMY SULF/BACITRAC ZN/POLY 15 GM TUBE TP SCH ×2 (17:37→20:45)
[2016-12-18] MEDS: NYSTATIN TOP POWDER 15 GM BOTTLE TP SCH ×14 (17:37→20:45)
[2016-12-18] MEDS: ZINC OXIDE 30 GM TUBE TP SCH ×2 (17:38→20:46)
[2016-12-18 18:00] VITALS: BP 109/56
[2016-12-18] MEDS: AMIKACIN 250 MG in IV D5W 100 ML IV PRN (18:28)
[2016-12-18 20:51] VITALS: BP 99/62
[2016-12-18] MEDS: METOPROLOL TARTRATE 50 MG TABLET GT SCH (22:00)
[2016-12-19] VITALS: BP 98/57
[2016-12-19] MEDS: CEFTRIAXONE 2 G in IV D5W 100 ML IV SCH (00:05)
[2016-12-19] MEDS: BLOOD SUGAR DIAGNOSTIC 1 EACH STRIP IN SCH ×4 (00:28→18:44)
[2016-12-19] MEDS: INSULIN REGULAR, HUMAN 100 UNIT/ML 3 ML VIAL SQ PRN ×4 (00:30→18:45)
[2016-12-19] MEDS: CLONIDINE HCL 0.2 MG TABLET GT PRN ×2 (00:46→06:38)
[2016-12-19] MEDS: ALBUTEROL FS 2.5 MG/3 ML VIAL.NEB NEB SCH ×4 (01:10→20:01)
[2016-12-19] MEDS: IPRATROPIUM NEB FS 0.5 MG/2.5 ML AMPUL.NEB NEB SCH ×4 (01:10→20:01)
[2016-12-19] MEDS: RENAL NOVASOURCE 1,000 ML BOTTLE GT PRN (04:49)
[2016-12-19] MEDS: METOCLOPRAMIDE HCL 10 MG/2 ML VIAL IV SCH ×3 (05:03→21:11)
[2016-12-19 06:00] VITALS: BP 90/57
[2016-12-19] MEDS: ESOMEPRAZOLE MAG TRIHYDRATE 20 MG CAPSULE.DR GT SCH (06:12)
[2016-12-19 08:00] VITALS: BP 91/62
[2016-12-19] MEDS: ACETAMINOPHEN 650 MG/20 ML UDC- FOR SA PATIENTS ONLY GT PRN (08:45)
[2016-12-19] MEDS: LISINOPRIL (20MG) 20 MG TABLET GT SCH (09:00)
[2016-12-19] MEDS: METOPROLOL TARTRATE 50 MG TABLET GT SCH ×2 (09:00→21:35)
[2016-12-19] MEDS: hydrALAZINE HCL 25 MG TABLET GT SCH ×2 (09:00→17:00)
--- NOTE | 2016-12-19 09:10 | NUR ---
Left a message to THOMAS Ramsay ID of Temp 100.2, B/P 91/623, HR 115, 02 sat 100%, Currently on ATB Rocephin, Amikacin and Vancomycin IV. awaiting for Sobia to call back.
[2016-12-19] MEDS: CALCITRIOL ORAL SOLUTION 1 MCG/ML GT SCH (09:43)
[2016-12-19] MEDS: LACTOBACILLUS RHAMNOSUS GG 1 EACH CAP.SPRINK GT SCH ×2 (09:43→17:00)
[2016-12-19] MEDS: MUPIROCIN OINT 2% 22 GM TUBE SCH ×2 (09:44→21:32)
[2016-12-19] MEDS: PROSOURCE / PROSTAT (PYXIS) 30 ML UDC GT SCH ×3 (09:44→17:00)
[2016-12-19] MEDS: ASCORBIC ACID 500 MG TABLET GT SCH (09:44)
[2016-12-19] MEDS: VIT B CMPLX 3/FA/VIT C/BIOTIN 1 TAB TABLET GT SCH (09:44)
[2016-12-19] MEDS: RIFAMPIN 300 MG CAPSULE GT SCH (09:44)
[2016-12-19] MEDS: HEPARIN SODIUM, PORCINE 5000 UNITS/1 ML VIAL SQ SCH ×2 (09:45→21:32)
[2016-12-19] MEDS: INSULIN GLARGINE, 100 UNIT/ML CARTRIDGE SQ SCH ×2 (09:45→21:33)
--- NOTE | 2016-12-19 10:19 | NUR ---
Received an order from THOMAS Ramsay, ID to do a set of BC, CXR and CBC, stated she will see patient later today. Orders noted and carried out. GT feeding on going, no gastric residual at this time.
[2016-12-19 12:00] VITALS: BP 100/54
[2016-12-19 12:30] LABS: BASOPHILS % (AUTO) 0.4 % (0.0-2.0); EOSINOPHILS # (AUTO) 0.3 /CMM (0.0-0.7); EOSINOPHILS % (AUTO) 2.4 % (0.0-6.0); HEMATOCRIT 27 % (33-45); HEMOGLOBIN 8.4 g/dL (11.5-14.8); LYMPHOCYTES # (AUTO) 1.1 /CMM (0.8-4.8); LYMPHOCYTES % (AUTO) 10.1 % (20.0-44.0); MEAN CORPUSCULAR HEMOGLOBIN 30 PG (26.0-33.0); MEAN CORPUSCULAR HGB CONC 32 g/dl (31.0-36.0); MEAN CORPUSCULAR VOLUME 96 fL (82-100); MONOCYTES # (AUTO) 0.8 /CMM (0.1-1.30); MONOCYTES % (AUTO) 7.2 % (2.0-12.0); NEUTROPHILS # (AUTO) 8.4 /CMM (1.8-8.9); NEUTROPHILS % (AUTO) 79.9 % (43.0-81.0); PLATELET COUNT (AUTO) 264 /CMM (150-450); RDW COEFFICIENT OF VARIATION 17.8 (11.5-15.0); RED BLOOD CELL COUNT(AUTO) 2.77 MIL/uL (4.0-5.2); WHITE BLOOD COUNT (AUTO) 10.6 K/uL (4.3-11.0)
[2016-12-19] MEDS: HYDROCODONE/APAP 5/325MG 1 EACH TABLET GT SCH ×2 (14:00→21:32)
[2016-12-19] MEDS: DAKINS HALF STRENGTH (0.25%) 480 ML BOTTLE TOP SCH ×2 (15:00→21:33)
[2016-12-19] MEDS: HYDROGEL DRESSING 90 GM TUBE TP SCH ×2 (15:00→21:33)
[2016-12-19] MEDS: ZINC OXIDE 30 GM TUBE TP SCH (15:00)
[2016-12-19] MEDS: NEOMY SULF/BACITRAC ZN/POLY 15 GM TUBE TP SCH (15:00)
[2016-12-19] MEDS: POVIDONE-IODINE OINT 28.4 GM TUBE TP SCH ×2 (15:00→21:33)
[2016-12-19] MEDS: HYDROGEN PEROXIDE 480 ML BOTTLE TP SCH ×2 (15:00→21:34)
[2016-12-19] MEDS: CADEXOMER IODINE 40 GM TUBE TP SCH (15:00)
[2016-12-19] MEDS: NYSTATIN TOP POWDER 15 GM BOTTLE TP SCH ×6 (15:00)
--- NOTE | 2016-12-19 15:21 | NUR ---
Spoke with John, responsible republican updated him of patient's condition especially with regards to the appearance of her R foot with gangrenous 2nd, 3rd and 4th toes. He is notified of low grade fever 100.2 this morning, with new order to do Chest XRAY and labs. Appreciated the call and update.
--- NOTE | 2016-12-19 17:30 | NUR ---
Seen and examined by Sobia, aware of the lab result taken today, seen the R foot with gangrenous toes and R bunion wound. Patient is being followed by Dr. Sprague who stated to continue with treatment of applying betadine to gangrenous toes. No other order given at this time by Sobia.
[2016-12-19 18:00] VITALS: BP 96/55
--- NOTE | 2016-12-19 19:42 | NUR ---
@ 0945 T -99.5 (O) Tylenol 650mg via GT effective with cooling measures applied at the same time. Charge Nurse made aware.
[2016-12-19 20:36] VITALS: BP 110/58
[2016-12-20] VITALS (9 sets, daily range): BP systolic 71–113; BP diastolic 31–58
[2016-12-20] MEDS: CEFTRIAXONE 2 G in IV D5W 100 ML IV SCH (00:10)
[2016-12-20] MEDS: BLOOD SUGAR DIAGNOSTIC 1 EACH STRIP IN SCH ×4 (00:55→18:32)
[2016-12-20] MEDS: INSULIN REGULAR, HUMAN 100 UNIT/ML 3 ML VIAL SQ PRN ×3 (00:57→18:39)
[2016-12-20] MEDS: ACETAMINOPHEN 650 MG/20 ML UDC- FOR SA PATIENTS ONLY GT PRN ×2 (01:30→18:33)
--- NOTE | 2016-12-20 01:30 | NUR ---
Pt noted with temp 101,cooling measures rendered and Tylenol given via given as ordered.BP 113/42,awake,no respiratory distress noted.Will continue to monitor.
[2016-12-20] MEDS: IPRATROPIUM NEB FS 0.5 MG/2.5 ML AMPUL.NEB NEB SCH ×4 (02:28→19:33)
[2016-12-20] MEDS: ALBUTEROL FS 2.5 MG/3 ML VIAL.NEB NEB SCH ×4 (02:28→19:33)
[2016-12-20] MEDS: METOCLOPRAMIDE HCL 10 MG/2 ML VIAL IV SCH ×3 (05:26→21:00)
--- NOTE | 2016-12-20 05:30 | NUR ---
Pt temp 98.5,BP 90/52,no distress noted.Colostomy output 150cc brownish in color,liquid consistency.Gastric residual 200cc , brownish in color.Feeding held for now and will check again.Reglan 5mg IV given for increased gastric residual.Will continue to monitor and will endorse.
[2016-12-20] MEDS: ESOMEPRAZOLE MAG TRIHYDRATE 20 MG CAPSULE.DR GT SCH (05:37)
[2016-12-20] MEDS: RENAL NOVASOURCE 1,000 ML BOTTLE GT PRN (06:21)
[2016-12-20] MEDS: VIT B CMPLX 3/FA/VIT C/BIOTIN 1 TAB TABLET GT SCH (08:58)
[2016-12-20] MEDS: PROSOURCE / PROSTAT (PYXIS) 30 ML UDC GT SCH ×3 (08:58→17:00)
[2016-12-20] MEDS: LACTOBACILLUS RHAMNOSUS GG 1 EACH CAP.SPRINK GT SCH ×2 (08:58→17:00)
[2016-12-20] MEDS: RIFAMPIN 300 MG CAPSULE GT SCH (08:58)
[2016-12-20] MEDS: CALCITRIOL ORAL SOLUTION 1 MCG/ML GT SCH (08:58)
[2016-12-20] MEDS: ASCORBIC ACID 500 MG TABLET GT SCH (08:59)
[2016-12-20] MEDS: INSULIN GLARGINE, 100 UNIT/ML CARTRIDGE SQ SCH ×2 (09:00→21:45)
[2016-12-20] MEDS: MUPIROCIN OINT 2% 22 GM TUBE SCH ×2 (09:00→21:43)
[2016-12-20] MEDS: HEPARIN SODIUM, PORCINE 5000 UNITS/1 ML VIAL SQ SCH ×2 (09:00→21:43)
--- NOTE | 2016-12-20 09:30 | NUR ---
Notified Dr. Wall resident's B/P on the low side 82/56, B/P slightly went up to 95/56 after elevating FOB. He was also made aware that patient is running low grade temp despite being on ATB. Patient being followed by ID. According to MD, it is OK to send her to dialysis and will order after reviewing her chart.
--- NOTE | 2016-12-20 10:00 | NUR ---
Resident left for dialysis, awake, eyes open VS 117/73, 104, 12, 99% condition stable. Not in acute signs/symptoms of respiratory/cardio distress. Report given to ambulance staff regarding low B/P earlier this morning.
[2016-12-20] MEDS: HYDROCODONE/APAP 5/325MG 1 EACH TABLET GT SCH ×2 (14:30→22:00)
--- NOTE | 2016-12-20 14:30 | NUR ---
Placed a call to Dr. Kelley, projection printer for Dr. Castro regarding resident's low B/P. Upon returning from dialysis, patient's B/P 68/33, placed on trendelenburg position B/P slightly went up to 73/42, rechecked 15 min later 81/42, down again 73/42. Awaiting for MD to call back.
--- NOTE | 2016-12-20 14:40 | NUR ---
Received a phone call from Dr. Kelley made him aware of the low B/P and that patient was only dialyzed for 2 hours. According to nurse Jenny at [facility], they have to give IVF due to episode of hypotension. New order given to give IV NS x1 L bolus. and check labs CBC, BMP, Phos and Magnesium 4 hours after dialysis. Orders noted and carried out.
[2016-12-20] MEDS: CADEXOMER IODINE 40 GM TUBE TP SCH (15:30)
[2016-12-20] MEDS: HYDROGEL DRESSING 90 GM TUBE TP SCH ×2 (15:30→22:00)
[2016-12-20] MEDS: DAKINS HALF STRENGTH (0.25%) 480 ML BOTTLE TOP SCH ×2 (15:30→22:00)
[2016-12-20] MEDS: HYDROGEN PEROXIDE 480 ML BOTTLE TP SCH ×2 (15:30→22:00)
[2016-12-20] MEDS: POVIDONE-IODINE OINT 28.4 GM TUBE TP SCH ×2 (15:30→22:00)
[2016-12-20] MEDS: IV NS 0.9% 1,000 ML IV PRN (15:36)
[2016-12-20] MEDS: hydrALAZINE HCL 25 MG TABLET GT SCH (17:00)
[2016-12-20] MEDS: VANCOMYCIN IV SCH (17:10)
[2016-12-20] MEDS: D5W IV SCH (17:10)
--- NOTE | 2016-12-20 18:21 | NUR ---
Notified THOMAS Ramsay ID that last night patient with T of 101, and 99.5 this shift after dialysis. According to Sobia she will review her ATB order, BC was ordered yesterday, result pending.
[2016-12-20] MEDS: AMIKACIN 250 MG in IV D5W 100 ML IV PRN (18:23)
[2016-12-20 18:38] LABS: CALCIUM, SERUM 9.2 mg/dL (8.5-10.1); CREATININE 2.7 mg/dL (0.6-1.3); MAGNESIUM 1.9 mg/dL (1.8-2.4)
[2016-12-20 18:47] LABS: BASOPHILS % (AUTO) 0.3 % (0.0-2.0); EOSINOPHILS # (AUTO) 0.3 /CMM (0.0-0.7); EOSINOPHILS % (AUTO) 2.4 % (0.0-6.0); HEMATOCRIT 27 % (33-45); HEMOGLOBIN 8.4 g/dL (11.5-14.8); LYMPHOCYTES # (AUTO) 1.8 /CMM (0.8-4.8); LYMPHOCYTES % (AUTO) 16.9 % (20.0-44.0); MEAN CORPUSCULAR HEMOGLOBIN 30 PG (26.0-33.0); MEAN CORPUSCULAR HGB CONC 31 g/dl (31.0-36.0); MEAN CORPUSCULAR VOLUME 96 fL (82-100); MONOCYTES # (AUTO) 0.9 /CMM (0.1-1.30); MONOCYTES % (AUTO) 8.7 % (2.0-12.0); NEUTROPHILS # (AUTO) 7.7 /CMM (1.8-8.9); NEUTROPHILS % (AUTO) 71.7 % (43.0-81.0); PLATELET COUNT (AUTO) 315 /CMM (150-450); RDW COEFFICIENT OF VARIATION 18.1 (11.5-15.0); RED BLOOD CELL COUNT(AUTO) 2.85 MIL/uL (4.0-5.2); WHITE BLOOD COUNT (AUTO) 10.8 K/uL (4.3-11.0)
[2016-12-20 18:57] LABS: POTASSIUM 2.7 mmol/L (3.5-5.1)
[2016-12-20] MEDS ORDERED: POTASSIUM CHLORIDE 10 MEQ TABLET.SA PO ONE (20:00)
[2016-12-20] MEDS ORDERED: IV NS 0.9% 500 ML BAG IV ONE (20:00)
--- NOTE | 2016-12-20 20:00 | NUR ---
charge nurse page the hospital admissions officer MD. Dr. Ojeda called back. informed him of the result of BMP potassium 2.7. also made him aware of the current vital signs BP=77/36 EE=970 RR=12 Zgdh=241.1. New order to give 500ml of NS bolus and potassium chloride 60meq po x1 and repeat BMP in AM. pt asleep no discomfort noted. will continue to monitor.
[2016-12-20] MEDS: METOPROLOL TARTRATE 50 MG TABLET GT SCH (21:45)
[2016-12-20] MEDS: NYSTATIN TOP POWDER 15 GM BOTTLE TP SCH ×5 (22:00)
[2016-12-20] MEDS: NEOMY SULF/BACITRAC ZN/POLY 15 GM TUBE TP SCH (22:00)
--- NOTE | 2016-12-20 22:45 | NUR ---
Charge nurse paged human resources operations manager . Dr. Ojeda called back. Charge nurse updated him of the current BP 84/38 when asleep and 103/58 when awake. Also informed him that patient was having increase gastric residual of 500cc. New order to hold gastric feeding and start D5NS 50cc/hr x12hrs then re-eval. MD also order Midodrin 10mg PRN.
[2016-12-20] MEDS ORDERED: IV D5/ 0.9% NACL 1,000 ML IV SCH (23:00)
[2016-12-20] MEDS ORDERED: MIDODRINE HCL (5MG) 5 MG TABLET PO PRN (23:00)
[2016-12-21 00:21] VITALS: BP 101/41
[2016-12-21] MEDS: BLOOD SUGAR DIAGNOSTIC 1 EACH STRIP IN SCH ×5 (00:27→23:42)
[2016-12-21] MEDS: INSULIN REGULAR, HUMAN 100 UNIT/ML 3 ML VIAL SQ PRN ×4 (00:28→23:42)
[2016-12-21] MEDS: IPRATROPIUM NEB FS 0.5 MG/2.5 ML AMPUL.NEB NEB SCH ×4 (01:36→20:25)
[2016-12-21] MEDS: ALBUTEROL FS 2.5 MG/3 ML VIAL.NEB NEB SCH ×4 (01:36→20:25)
[2016-12-21] MEDS: METOCLOPRAMIDE HCL 10 MG/2 ML VIAL IV SCH ×3 (04:46→21:00)
[2016-12-21] MEDS: ESOMEPRAZOLE MAG TRIHYDRATE 20 MG CAPSULE.DR GT SCH (05:50)
[2016-12-21 06:00] VITALS: BP 128/66
--- NOTE | 2016-12-21 06:00 | NUR ---
rechecked pt VX=554/66 HR=99. no s/s of distress noted. Pt asleep. will endorse to up coming nurse.
[2016-12-21 07:19] LABS: CALCIUM, SERUM 9.5 mg/dL (8.5-10.1); POTASSIUM 3.9 mmol/L (3.5-5.1)
[2016-12-21 07:45] VITALS: BP 121/60
[2016-12-21] MEDS: MUPIROCIN OINT 2% 22 GM TUBE SCH (09:00)
[2016-12-21] MEDS: HEPARIN SODIUM, PORCINE 5000 UNITS/1 ML VIAL SQ SCH ×2 (09:00→21:03)
[2016-12-21] MEDS: POVIDONE-IODINE OINT 28.4 GM TUBE TP SCH ×2 (09:00→21:03)
[2016-12-21] MEDS: NEOMY SULF/BACITRAC ZN/POLY 15 GM TUBE TP SCH ×2 (09:00→21:04)
[2016-12-21] MEDS: DAKINS HALF STRENGTH (0.25%) 480 ML BOTTLE TOP SCH ×2 (09:00→21:03)
[2016-12-21] MEDS: HYDROGEN PEROXIDE 480 ML BOTTLE TP SCH ×2 (09:00→21:03)
[2016-12-21] MEDS: CALCITRIOL ORAL SOLUTION 1 MCG/ML GT SCH (09:00)
[2016-12-21] MEDS: HYDROGEL DRESSING 90 GM TUBE TP SCH ×2 (09:00→21:03)
[2016-12-21] MEDS: PROSOURCE / PROSTAT (PYXIS) 30 ML UDC GT SCH ×3 (09:00→17:42)
[2016-12-21] MEDS: LISINOPRIL (20MG) 20 MG TABLET GT SCH (09:00)
[2016-12-21] MEDS: CADEXOMER IODINE 40 GM TUBE TP SCH (09:00)
[2016-12-21] MEDS: INSULIN GLARGINE, 100 UNIT/ML CARTRIDGE SQ SCH ×2 (09:00→21:03)
[2016-12-21] MEDS: NYSTATIN TOP POWDER 15 GM BOTTLE TP SCH ×10 (09:00→21:04)
[2016-12-21] MEDS: ASCORBIC ACID 500 MG TABLET GT SCH (09:00)
[2016-12-21] MEDS: CEFTRIAXONE 2 G in IV D5W 100 ML IV SCH (09:29)
--- NOTE | 2016-12-21 09:32 | NUR ---
ROCEPHIN 2GM IV MISSED DOSE AT 1230 AM TODAY (12/21/16), PER [facility] OK TO ADMINISTER ROCEPHIN 2GM IV LATE DOSE NOW AND WILL ENDORSE TO NEXT SHIFT NURSE TO ADJUST TIMING FOR NEXT DOSE OF ROCEPHIN 2GM IV.
[2016-12-21] MEDS: VIT B CMPLX 3/FA/VIT C/BIOTIN 1 TAB TABLET GT SCH (10:41)
[2016-12-21] MEDS: LACTOBACILLUS RHAMNOSUS GG 1 EACH CAP.SPRINK GT SCH ×2 (10:41→17:43)
[2016-12-21] MEDS: hydrALAZINE HCL 25 MG TABLET GT SCH ×2 (10:42→17:44)
[2016-12-21] MEDS: METOPROLOL TARTRATE 50 MG TABLET GT SCH ×2 (10:42→21:04)
[2016-12-21] MEDS: HYDROCODONE/APAP 5/325MG 1 EACH TABLET GT SCH ×2 (10:48→21:02)
--- NOTE | 2016-12-21 11:52 | NUR ---
IV D5 NS @50ML/HR X12HR COMPLETED, NO GASTRIC RESIDUAL. CALLED SPOKE TO DR. TORRES, ORDERED TO RESUME GTUBE FEEDING NOTED AND ACKNOWLEDGED.
[2016-12-21 12:00] VITALS: BP 121/60
[2016-12-21] MEDS ORDERED: RENAL NOVASOURCE 1,000 ML BOTTLE GT PRN ×2 (12:30→13:30)
[2016-12-21] MEDS: ACETAMINOPHEN 650 MG/20 ML UDC- FOR SA PATIENTS ONLY GT PRN (17:42)
--- NOTE | 2016-12-21 17:49 | NUR ---
ELEVATED TEMP 101.1 COOLING MEASURE PROVIDED, TYLENOL 650MG VIA GT PRN FOR FEVER GIVEN BY WALTER. WILL REASSESS.
[2016-12-21 18:00] VITALS: BP 117/65
[2016-12-21] MEDS: IV NS 0.9% 1,000 ML IV PRN (18:12)
--- NOTE | 2016-12-21 18:47 | NUR ---
RE CHECKED TEMP. 99.5 TYLENOL PRN AND COOLING MEASURE EFFECTIVE. WILL ENDORSE TO SURVEY CREW CHIEF RN FOR CONTINUITY OF CARE.
[2016-12-21 19:53] VITALS: BP 146/69
--- NOTE | 2016-12-21 21:30 | NUR ---
RN NOTES Informed by previous charge nurse pt developed temp of 101.1. Notified Sobia with NO for blood culture x2, noted and carried out.
[2016-12-22] MEDS: CEFTRIAXONE 2 G in IV D5W 100 ML IV SCH (00:30)
[2016-12-22] MEDS: ALBUTEROL FS 2.5 MG/3 ML VIAL.NEB NEB SCH ×4 (02:05→19:32)
[2016-12-22] MEDS: IPRATROPIUM NEB FS 0.5 MG/2.5 ML AMPUL.NEB NEB SCH ×4 (02:05→19:32)
[2016-12-22 02:06] VITALS: BP 112/60
[2016-12-22 06:01] VITALS: BP 124/64
[2016-12-22] MEDS: ESOMEPRAZOLE MAG TRIHYDRATE 20 MG CAPSULE.DR GT SCH (06:20)
[2016-12-22] MEDS: INSULIN REGULAR, HUMAN 100 UNIT/ML 3 ML VIAL SQ PRN ×4 (06:21→23:23)
[2016-12-22] MEDS: BLOOD SUGAR DIAGNOSTIC 1 EACH STRIP IN SCH ×4 (06:21→23:22)
[2016-12-22 07:54] VITALS: BP 118/70
[2016-12-22] MEDS: NYSTATIN TOP POWDER 15 GM BOTTLE TP SCH ×10 (09:00→21:19)
[2016-12-22] MEDS: DAKINS HALF STRENGTH (0.25%) 480 ML BOTTLE TOP SCH ×2 (09:00→21:19)
[2016-12-22] MEDS: NEOMY SULF/BACITRAC ZN/POLY 15 GM TUBE TP SCH ×2 (09:00→21:20)
[2016-12-22] MEDS: METOPROLOL TARTRATE 50 MG TABLET GT SCH ×2 (09:00→21:20)
[2016-12-22] MEDS: LISINOPRIL (20MG) 20 MG TABLET GT SCH (09:00)
[2016-12-22] MEDS: VIT B CMPLX 3/FA/VIT C/BIOTIN 1 TAB TABLET GT SCH (09:00)
[2016-12-22] MEDS: HYDROGEN PEROXIDE 480 ML BOTTLE TP SCH ×2 (09:00→21:19)
[2016-12-22] MEDS: PROSOURCE / PROSTAT (PYXIS) 30 ML UDC GT SCH ×3 (09:00→17:53)
[2016-12-22] MEDS: HYDROCODONE/APAP 5/325MG 1 EACH TABLET GT SCH ×2 (09:00→21:18)
[2016-12-22] MEDS: CALCITRIOL ORAL SOLUTION 1 MCG/ML GT SCH (09:00)
[2016-12-22] MEDS: CADEXOMER IODINE 40 GM TUBE TP SCH (09:00)
[2016-12-22] MEDS: INSULIN GLARGINE, 100 UNIT/ML CARTRIDGE SQ SCH ×2 (09:00→21:19)
[2016-12-22] MEDS: ASCORBIC ACID 500 MG TABLET GT SCH (09:00)
[2016-12-22] MEDS: POVIDONE-IODINE OINT 28.4 GM TUBE TP SCH ×2 (09:00→21:19)
[2016-12-22] MEDS: LACTOBACILLUS RHAMNOSUS GG 1 EACH CAP.SPRINK GT SCH ×2 (09:00→17:53)
[2016-12-22] MEDS: hydrALAZINE HCL 25 MG TABLET GT SCH ×2 (09:00→17:53)
[2016-12-22] MEDS: HEPARIN SODIUM, PORCINE 5000 UNITS/1 ML VIAL SQ SCH ×2 (09:00→21:18)
[2016-12-22] MEDS: HYDROGEL DRESSING 90 GM TUBE TP SCH ×2 (09:00→21:19)
[2016-12-22] MEDS ORDERED: CEFTRIAXONE 2 G in IV D5W 100 ML IV SCH (09:30)
[2016-12-22] MEDS: METOCLOPRAMIDE HCL 10 MG/2 ML VIAL IV SCH ×2 (13:00→21:00)
[2016-12-22 14:54] VITALS: BP 115/65
[2016-12-22 18:45] VITALS: BP 133/84
[2016-12-22 19:55] VITALS: BP 138/76
[2016-12-23] MEDS: ALBUTEROL FS 2.5 MG/3 ML VIAL.NEB NEB SCH ×4 (02:11→19:30)
[2016-12-23] MEDS: IPRATROPIUM NEB FS 0.5 MG/2.5 ML AMPUL.NEB NEB SCH ×4 (02:11→19:30)
[2016-12-23 03:04] VITALS: BP 119/69
[2016-12-23] MEDS: METOCLOPRAMIDE HCL 10 MG/2 ML VIAL IV SCH ×3 (05:00→21:00)
[2016-12-23] MEDS: ESOMEPRAZOLE MAG TRIHYDRATE 20 MG CAPSULE.DR GT SCH (05:57)
[2016-12-23] MEDS: BLOOD SUGAR DIAGNOSTIC 1 EACH STRIP IN SCH ×3 (05:57→18:40)
[2016-12-23] MEDS: INSULIN REGULAR, HUMAN 100 UNIT/ML 3 ML VIAL SQ PRN ×2 (05:58→18:41)
[2016-12-23 06:01] VITALS: BP 122/59
[2016-12-23 07:41] VITALS: BP 108/70
[2016-12-23] MEDS: VIT B CMPLX 3/FA/VIT C/BIOTIN 1 TAB TABLET GT SCH (08:55)
[2016-12-23] MEDS: LACTOBACILLUS RHAMNOSUS GG 1 EACH CAP.SPRINK GT SCH ×2 (08:55→17:00)
[2016-12-23] MEDS: CALCITRIOL ORAL SOLUTION 1 MCG/ML GT SCH (08:55)
[2016-12-23] MEDS: ASCORBIC ACID 500 MG TABLET GT SCH (08:56)
[2016-12-23] MEDS: HYDROCODONE/APAP 5/325MG 1 EACH TABLET GT SCH ×2 (08:56→21:01)
[2016-12-23] MEDS: POVIDONE-IODINE OINT 28.4 GM TUBE TP SCH ×2 (08:56→21:02)
[2016-12-23] MEDS: PROSOURCE / PROSTAT (PYXIS) 30 ML UDC GT SCH ×3 (08:56→17:00)
[2016-12-23] MEDS: DAKINS HALF STRENGTH (0.25%) 480 ML BOTTLE TOP SCH ×2 (08:56→21:02)
[2016-12-23] MEDS: INSULIN GLARGINE, 100 UNIT/ML CARTRIDGE SQ SCH ×2 (08:56→21:02)
[2016-12-23] MEDS: HYDROGEL DRESSING 90 GM TUBE TP SCH ×2 (08:56→21:02)
[2016-12-23] MEDS: CADEXOMER IODINE 40 GM TUBE TP SCH (08:57)
[2016-12-23] MEDS: HYDROGEN PEROXIDE 480 ML BOTTLE TP SCH ×2 (08:57→21:02)
[2016-12-23] MEDS: NEOMY SULF/BACITRAC ZN/POLY 15 GM TUBE TP SCH ×2 (08:57→21:03)
[2016-12-23] MEDS: NYSTATIN TOP POWDER 15 GM BOTTLE TP SCH ×10 (08:57→21:03)
[2016-12-23] MEDS: HEPARIN SODIUM, PORCINE 5000 UNITS/1 ML VIAL SQ SCH ×2 (08:59→21:01)
--- NOTE | 2016-12-23 10:00 | NUR ---
Notified Dr. Morejon pt still has fever on and off, T 101F. Pt currently on three antibiotics.
--- NOTE | 2016-12-23 10:17 | NUR ---
Late entry 12/18/16 Pt's right foot seen by Dr. Rojas. He said to continue applying Betadine to gangrenous areas of the right 2nd, 3rd, and 4th toes.
--- NOTE | 2016-12-23 10:30 | NUR ---
Relayed Vancomycin random level 15 and Amikacin random level 9.1 to [facility] IV pharmacist Marvel. Received order to continue same doses of Vancomycin and Amikacin. Notified IV pharmacist Marvel that pt's Rocephin time was changed to 0930 but pt went to hemodialysis, she said it is fine to give Rocephin when pt comes back after hemodialysis.
[2016-12-23] MEDS: CEFTRIAXONE 2 G in IV D5W 100 ML IV SCH (14:10)
--- NOTE | 2016-12-23 16:31 | NUR ---
IV pharmacist Marvel ordered to do random Vancomycin and Amikacin levels, BUN, Cr on 12/30/16.
[2016-12-23] MEDS: hydrALAZINE HCL 25 MG TABLET GT SCH (17:00)
--- NOTE | 2016-12-23 18:13 | NUR ---
BP 88/52 HR 105 T 102F R 18 O2 sat 100%. Paged Dr. Castro, spoke with Deirdre. Addendum: 12/23/16 at 1849 by GEORGE CLEARY RN Pt was placed on Trendelenburg position, GT feeding held as aspiration precaution.
[2016-12-23] MEDS: D5W IV SCH (18:30)
[2016-12-23] MEDS: VANCOMYCIN IV SCH (18:30)
[2016-12-23 18:52] VITALS: BP 88/52
--- NOTE | 2016-12-23 19:14 | NUR ---
BP 91/55 HR 101 T 100.0F R 18 O2 sat 100%. Pt awake, no distress. Cooling measures provided.
[2016-12-23] MEDS: AMIKACIN 250 MG in IV D5W 100 ML IV PRN (19:31)
[2016-12-23 19:59] VITALS: BP 101/40
[2016-12-23] MEDS: METOPROLOL TARTRATE 50 MG TABLET GT SCH (21:03)
[2016-12-24] VITALS (8 sets, daily range): BP systolic 96–135; BP diastolic 58–68
[2016-12-24] MEDS: BLOOD SUGAR DIAGNOSTIC 1 EACH STRIP IN SCH ×5 (00:02→23:52)
[2016-12-24] MEDS: INSULIN REGULAR, HUMAN 100 UNIT/ML 3 ML VIAL SQ PRN ×5 (00:03→23:55)
[2016-12-24] MEDS: IPRATROPIUM NEB FS 0.5 MG/2.5 ML AMPUL.NEB NEB SCH ×4 (01:30→19:52)
[2016-12-24] MEDS: ALBUTEROL FS 2.5 MG/3 ML VIAL.NEB NEB SCH ×4 (01:30→19:52)
[2016-12-24] MEDS: METOCLOPRAMIDE HCL 10 MG/2 ML VIAL IV SCH ×3 (05:00→21:21)
[2016-12-24] MEDS: ESOMEPRAZOLE MAG TRIHYDRATE 20 MG CAPSULE.DR GT SCH (05:20)
[2016-12-24] MEDS: METOPROLOL TARTRATE 50 MG TABLET GT SCH ×2 (09:00→21:13)
[2016-12-24] MEDS: INSULIN GLARGINE, 100 UNIT/ML CARTRIDGE SQ SCH ×2 (09:00→21:36)
[2016-12-24] MEDS: hydrALAZINE HCL 25 MG TABLET GT SCH ×2 (09:00→17:00)
[2016-12-24] MEDS: LISINOPRIL (20MG) 20 MG TABLET GT SCH (09:00)
[2016-12-24] MEDS: CALCITRIOL ORAL SOLUTION 1 MCG/ML GT SCH (09:57)
[2016-12-24] MEDS: LACTOBACILLUS RHAMNOSUS GG 1 EACH CAP.SPRINK GT SCH ×2 (09:57→17:52)
[2016-12-24] MEDS: PROSOURCE / PROSTAT (PYXIS) 30 ML UDC GT SCH ×3 (09:58→17:52)
[2016-12-24] MEDS: VIT B CMPLX 3/FA/VIT C/BIOTIN 1 TAB TABLET GT SCH (09:58)
[2016-12-24] MEDS: HEPARIN SODIUM, PORCINE 5000 UNITS/1 ML VIAL SQ SCH ×2 (09:59→21:16)
--- NOTE | 2016-12-24 10:10 | NUR ---
Notified Dr. 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 over the weekend. Patient continue to receive Reglan 5mg, IVP. MD is also aware of negative stool for OB result. Nurse checked gastric residual, 0 residual at this time. Dr. Laird said to continue giving Reglan 5 mg, IVP as ordered.
--- NOTE | 2016-12-24 10:47 | NUR ---
Clarified with Dr. Enrique Castro regarding the use of Midodrine 10 mg. as previously ordered by Dr. Guzmán for low BP, MD Castro discontinued the order. Order noted and carried out.
[2016-12-24] MEDS: ACETAMINOPHEN 650 MG/20 ML UDC- FOR SA PATIENTS ONLY GT PRN (12:44)
[2016-12-24] MEDS: CEFTRIAXONE 2 G in IV D5W 100 ML IV SCH (14:17)
[2016-12-24] MEDS: HYDROCODONE/APAP 5/325MG 1 EACH TABLET GT SCH ×3 (14:23→21:12)
[2016-12-24] MEDS: NYSTATIN TOP POWDER 15 GM BOTTLE TP SCH ×10 (15:30→21:28)
[2016-12-24] MEDS: DAKINS HALF STRENGTH (0.25%) 480 ML BOTTLE TOP SCH ×2 (15:30→21:12)
[2016-12-24] MEDS: HYDROGEL DRESSING 90 GM TUBE TP SCH ×2 (15:30→21:25)
[2016-12-24] MEDS: NEOMY SULF/BACITRAC ZN/POLY 15 GM TUBE TP SCH ×2 (15:30→21:28)
[2016-12-24] MEDS: CADEXOMER IODINE 40 GM TUBE TP SCH (15:30)
[2016-12-24] MEDS: HYDROGEN PEROXIDE 480 ML BOTTLE TP SCH ×2 (15:30→21:13)
[2016-12-24] MEDS: POVIDONE-IODINE OINT 28.4 GM TUBE TP SCH ×2 (15:30→21:13)
[2016-12-25] VITALS: BP 100/65
[2016-12-25] MEDS: ALBUTEROL FS 2.5 MG/3 ML VIAL.NEB NEB SCH ×4 (02:04→20:28)
[2016-12-25] MEDS: IPRATROPIUM NEB FS 0.5 MG/2.5 ML AMPUL.NEB NEB SCH ×4 (02:04→20:28)
[2016-12-25] MEDS: METOCLOPRAMIDE HCL 10 MG/2 ML VIAL IV SCH ×3 (05:35→21:14)
[2016-12-25 06:00] VITALS: BP 106/70
[2016-12-25] MEDS: ESOMEPRAZOLE MAG TRIHYDRATE 20 MG CAPSULE.DR GT SCH (06:13)
[2016-12-25] MEDS: BLOOD SUGAR DIAGNOSTIC 1 EACH STRIP IN SCH ×4 (06:19→23:37)
[2016-12-25] MEDS: INSULIN REGULAR, HUMAN 100 UNIT/ML 3 ML VIAL SQ PRN ×3 (06:23→23:40)
--- NOTE | 2016-12-25 06:44 | NUR ---
RN NOTE; PT NOTED W/ GT AND THE BALLOON OUT. GOOD SKIN CARE ON THE AREA WAS PROVIDED AND A NEW GT WAS REINSERTED TO KEEP THE IT OPEN. PT TOLERATED THE PROCEDURE WELL. NOTED W/ GASTRIC JUICE IN THE NEW TUBING ANS ALSO PLACEMENT WAS CONFIRMED BY AUSCULTATION. PAGED DR. CONDE TO OBTAIN AN ORDER FOR STAT KUB FOR GT PLACEMENT CONFIRMATION. AWAITING FOR HIS CALL BACK. GTF CURRENTLY ON HOLD FOR PLACEMENT CONFIRMATION.
--- NOTE | 2016-12-25 07:26 | NUR ---
Pt received on mechanical vent. Pt trach is secure. Vent is plugged into a red outlet, alarms are set and audible, and BVM is at bedside. Addendum: 12/25/16 at 0727 by ANNMARIE CARVER RT Amended: Links added.
--- NOTE | 2016-12-25 07:30 | NUR ---
RECEIVED A CALL BACK FROM AMAYA PENA W/ A NEW ORDER FOR KUAmelia FOR GT PLCEMENT CONFIRMATION. RADIOLOGY DEPARTMENT MADE AWARE. WILL ENDORSE TO AM SHIFT TO F/U.
[2016-12-25 07:41] VITALS: BP 96/65
[2016-12-25] MEDS: CALCITRIOL ORAL SOLUTION 1 MCG/ML GT SCH (08:43)
[2016-12-25] MEDS: LACTOBACILLUS RHAMNOSUS GG 1 EACH CAP.SPRINK GT SCH ×2 (08:43→17:00)
[2016-12-25] MEDS: VIT B CMPLX 3/FA/VIT C/BIOTIN 1 TAB TABLET GT SCH (08:43)
[2016-12-25] MEDS: HYDROCODONE/APAP 5/325MG 1 EACH TABLET GT SCH ×2 (08:44→21:00)
[2016-12-25] MEDS: PROSOURCE / PROSTAT (PYXIS) 30 ML UDC GT SCH ×3 (08:44→17:50)
[2016-12-25] MEDS: HEPARIN SODIUM, PORCINE 5000 UNITS/1 ML VIAL SQ SCH ×2 (08:45→21:00)
[2016-12-25] MEDS: POVIDONE-IODINE OINT 28.4 GM TUBE TP SCH ×2 (08:54→21:00)
[2016-12-25] MEDS: INSULIN GLARGINE, 100 UNIT/ML CARTRIDGE SQ SCH ×2 (08:54→20:38)
[2016-12-25] MEDS: DAKINS HALF STRENGTH (0.25%) 480 ML BOTTLE TOP SCH ×2 (08:54→21:00)
[2016-12-25] MEDS: HYDROGEN PEROXIDE 480 ML BOTTLE TP SCH ×2 (08:55→21:00)
[2016-12-25] MEDS: HYDROGEL DRESSING 90 GM TUBE TP SCH ×2 (08:55→21:00)
--- NOTE | 2016-12-25 08:55 | NUR ---
Relayed KUB result to THOMAS Leija. Received order to resume GT feeding.
[2016-12-25] MEDS: NYSTATIN TOP POWDER 15 GM BOTTLE TP SCH ×10 (08:56→21:00)
[2016-12-25] MEDS: CADEXOMER IODINE 40 GM TUBE TP SCH (08:56)
[2016-12-25] MEDS: NEOMY SULF/BACITRAC ZN/POLY 15 GM TUBE TP SCH ×2 (08:57→21:00)
--- NOTE | 2016-12-25 15:39 | NUR ---
Notified Dr. Morejon that pt's GT site is red and surrounding area is hard to touch, GT also leaking. Dr. Morejon ordered GI consult. Called Dr. Laird and left message with Na.
--- NOTE | 2016-12-25 16:00 | NUR ---
Notified THOMAS Leija that pt's GT is leaking and surrounding area is red and hard to touch. Received order to hold the feeding until pt is seen by GI doctor. Blood sugar 207. Pt awake, no signs of pain or discomfort. Addendum: 12/25/16 at 1636 by GEORGE CLEARY RN Notified THOMAS Leija that pt is not on IV hydration.
--- NOTE | 2016-12-25 16:34 | NUR ---
Pt was at [facility] for hemodialysis, Reglan Inj 5 mg IVP was given upon pt's return at 1430.
[2016-12-25] MEDS: hydrALAZINE HCL 25 MG TABLET GT SCH (17:00)
--- NOTE | 2016-12-25 17:54 | NUR ---
THOMAS Leija ordered to give D5 1/2 NS at 50 cc/hr IV until further order. GT feeding on hold.
[2016-12-25] MEDS ORDERED: IV D5/ 0.9% NACL 1,000 ML IV PRN (18:30)
[2016-12-25] MEDS: VANCOMYCIN IV SCH (18:51)
[2016-12-25] MEDS: D5W IV SCH (18:51)
[2016-12-25] MEDS: AMIKACIN 250 MG in IV D5W 100 ML IV PRN (18:52)
[2016-12-25 18:57] VITALS: BP 95/55
--- NOTE | 2016-12-25 19:38 | NUR ---
Pt seen by THOMAS Ramsay. Showed her the pt's GT site and asked her if she wanted to order stop dates for pt's Vancomycin and Amikacin. She said she will place orders in the computer.
[2016-12-25 19:58] VITALS: BP 142/82
--- NOTE | 2016-12-25 20:00 | NUR ---
Seen and examined by Sobia GUZMAN,with new order Fluconazole 100mg IV q 24hrs ,Merrem 500mg Iv q 12 hrs for GT cellulitis.CT abdomen with contrast to r/o abscess.Will carried out.
--- NOTE | 2016-12-25 20:15 | NUR ---
Tried to call patient John to update with new orders and pt condition and also to get consent for CT abdomen with contrast.Unable to contact the will try to call again.
[2016-12-25] MEDS: ASCORBIC ACID 500 MG TABLET GT SCH (20:39)
[2016-12-25] MEDS ORDERED: FLUCONAZOLE IN NS 100 MG in PREMIX 1 EA IV SCH ×2 (21:00)
--- NOTE | 2016-12-25 21:05 | NUR ---
Tried again to call to give update and get consent,left voice to [phone].Waiting for call back.
[2016-12-25] MEDS: MEROPENEM 500 MG in IV NS 0.9% 50 ML IV SCH (21:14)
[2016-12-25] MEDS: METOPROLOL TARTRATE 50 MG TABLET GT SCH (22:00)
--- NOTE | 2016-12-25 22:00 | NUR ---
SPOKE TO DIANNA HENDRICKSON FROM [facility] SHE SAID THAT MEDICATIONS ARE NOT COVERED BY INSURANCE.WILL NOTIFY PHARMACIST IN [place] TO SUPPLY MEDICATIONS IN AM.
[2016-12-26] VITALS: BP 95/76
[2016-12-26] MEDS: ALBUTEROL FS 2.5 MG/3 ML VIAL.NEB NEB SCH ×3 (02:20→14:30)
[2016-12-26] MEDS: IPRATROPIUM NEB FS 0.5 MG/2.5 ML AMPUL.NEB NEB SCH ×3 (02:20→14:30)
[2016-12-26] MEDS: METOCLOPRAMIDE HCL 10 MG/2 ML VIAL IV SCH ×2 (04:54→13:33)
[2016-12-26 06:00] VITALS: BP 101/56
--- NOTE | 2016-12-26 06:04 | NUR ---
PT NATALIE GAVE CONSENT FOR CT SCAN OF ABDOMEN WITH CONTRAST,WITNESSED BY CATE MEJIA LVN.ALSO UPDATED WITH PATIENT CONDITION AND NEW ORDERS.APPRECIATIVE OF THE CALL.
[2016-12-26] MEDS: ESOMEPRAZOLE MAG TRIHYDRATE 20 MG CAPSULE.DR GT SCH (06:06)
[2016-12-26] MEDS: BLOOD SUGAR DIAGNOSTIC 1 EACH STRIP IN SCH ×3 (06:10→18:00)
[2016-12-26] MEDS: INSULIN REGULAR, HUMAN 100 UNIT/ML 3 ML VIAL SQ PRN ×2 (06:11→13:06)
--- NOTE | 2016-12-26 06:29 | NUR ---
PT GT SITE WITH EXCESSIVE LEAKAGE,GREENISH IN COLOR,STOMA IS BIG.DRESSING CHANGED FREQUENTLY TO PROTECT THE SKIN.WILL CONTINUE TO MONITOR.
[2016-12-26 07:35] VITALS: BP 109/63
[2016-12-26] MEDS: CALCITRIOL ORAL SOLUTION 1 MCG/ML GT SCH (09:00)
[2016-12-26] MEDS: LISINOPRIL (20MG) 20 MG TABLET GT SCH (09:00)
[2016-12-26] MEDS: METOPROLOL TARTRATE 50 MG TABLET GT SCH (09:00)
[2016-12-26] MEDS: VIT B CMPLX 3/FA/VIT C/BIOTIN 1 TAB TABLET GT SCH (09:00)
[2016-12-26] MEDS: INSULIN GLARGINE, 100 UNIT/ML CARTRIDGE SQ SCH (09:00)
[2016-12-26] MEDS: HEPARIN SODIUM, PORCINE 5000 UNITS/1 ML VIAL SQ SCH (09:00)
[2016-12-26] MEDS ORDERED: FLUCONAZOLE IN NS 100 MG in PREMIX 1 EA IV SCH ×2 (09:00)
[2016-12-26] MEDS: ASCORBIC ACID 500 MG TABLET GT SCH (09:00)
[2016-12-26] MEDS: PROSOURCE / PROSTAT (PYXIS) 30 ML UDC GT SCH ×3 (09:00→17:00)
[2016-12-26] MEDS: hydrALAZINE HCL 25 MG TABLET GT SCH ×2 (09:00→17:00)
[2016-12-26] MEDS: LACTOBACILLUS RHAMNOSUS GG 1 EACH CAP.SPRINK GT SCH ×2 (09:00→17:00)
--- NOTE | 2016-12-26 09:00 | NUR ---
Seen and examined by Hellen Leija NP for Dr. Morejon. Made aware that patient GT has excessive amount of leakage, greenish in color. Colostomy bag in place to catch drainage. Because of patient's high creatinine level per radiologist it is not advisable to do CT with contrast. Clarified order with Hellen who is rounding at this time. Order noted and carried out. Left a message to SHAMEKA Christopher to notify of patient's GT site. Awaiting for MD to call back.
[2016-12-26] MEDS: MEROPENEM 500 MG in IV NS 0.9% 50 ML IV SCH (09:23)
--- NOTE | 2016-12-26 09:30 | NUR ---
Spoke with Dr. Laird, notified that patient had CT scan of abdomen/pelvis to r/o cellulitis. Dr. Laird gave an order to keep patient NPO and get consent for EGD. Currently patient is receiving IVF of D51/5 NS at 50 cc/hr.
--- NOTE | 2016-12-26 10:30 | NUR ---
Obtained telephone consent for EGD from responsible constitution party John Woodall witnessed by [address].
[2016-12-26 12:00] VITALS: BP 100/60
--- NOTE | 2016-12-26 12:00 | NUR ---
Notified THOMAS Ramsay regarding low grade temperature of 100.[address] scan result. She said that she will be in today to see the patient.
[2016-12-26] MEDS ORDERED: IV D5/0.45 NACL 1,000 ML IV PRN (14:00)
--- NOTE | 2016-12-26 14:00 | NUR ---
IDT meeting held, family unable to attend the meeting. Reviewed current medication orders, treatment and labs. Dr. Morejon seen CT scan result and ordered to hold medications via GT until seen by GI. He also ordered to DC Nexium and changed to Protonix 40mg via IV. Orders noted and carried out.
[2016-12-26] MEDS: HYDROCODONE/APAP 5/325MG 1 EACH TABLET GT SCH (15:00)
[2016-12-26] MEDS: CADEXOMER IODINE 40 GM TUBE TP SCH (16:00)
[2016-12-26] MEDS: POVIDONE-IODINE OINT 28.4 GM TUBE TP SCH (16:00)
[2016-12-26] MEDS: NYSTATIN TOP POWDER 15 GM BOTTLE TP SCH ×5 (16:00)
[2016-12-26] MEDS: NEOMY SULF/BACITRAC ZN/POLY 15 GM TUBE TP SCH (16:00)
[2016-12-26] MEDS: HYDROGEN PEROXIDE 480 ML BOTTLE TP SCH (16:00)
[2016-12-26] MEDS: HYDROGEL DRESSING 90 GM TUBE TP SCH (16:00)
[2016-12-26] MEDS: DAKINS HALF STRENGTH (0.25%) 480 ML BOTTLE TOP SCH (16:00)
--- NOTE | 2016-12-26 16:00 | NUR ---
RN NOTES PT'S GT SITE FOUND ACTIVELY BLEEDING DURING DRESSING CHANGE. DRESSING APPLIED TO SITE TO CONTROL BLEEDING. PATIENT REMAINS AWAKE, NO S/S OF DISTRESS OR SOB. NO SIGNS OF PAIN. VITAL SIGNS: BP 112/62, T 68.9, R 18, P 99. DR. POE AND DR. NICHOLE MADE AWARE OF THE ACTIVE BLEEDING BY THE CHARGE NURSE. ORDERS GIVEN TO TRANSFER PT TO ER FOR EVALUATION. PT IS TO REMAIN NPO UNTIL GI CONSULT. WILL GIVE REPORT AND ENDORSE INFORMATION TO ER. WILL CONTINUE TO MONITOR UNTIL PT TRANSFER.
--- NOTE | 2016-12-26 16:40 | NUR ---
RN NOTES PT TRANSFERRED TO ER FOR EVALUATION OF GT SITE BLEED, ACCOMPANIED BY PEER EDUCATOR AND RT. REPORT GIVEN TO LA NENA OF ER BY CHARGE NURSE. PHOTOS TAKEN OF GT SITE AND ENDORSED TO ER. MEDICATION LIST, PHYSICIAN'S ORDERS, H&P, TRANSFER PAPERWORK ALL GIVEN TO ER. PT REMAINS NPO UNTIL GI CONSULT. ALL INFORMATION ENDORSED TO ER.
--- NOTE | 2016-12-26 16:45 | NUR ---
Attempted X4 to notify John Woodall, responsible libertarian of patient's transfer to ER for evaluation but no response. Endorse to incoming shift to follow-up.
[2016-12-26] MEDS ORDERED: VANC1VIA2 IV (17:33)
[2016-12-26] MEDS ORDERED: HYDR-4076 GT (17:33)
[2016-12-26] MEDS ORDERED: CEFT2VIA5 IV (17:33)
[2016-12-26] MEDS ORDERED: AMIK250V8 IV (17:33)
[2016-12-26] MEDS ORDERED: NYST60PO TP (17:33)
[2016-12-26] MEDS ORDERED: METO5VIA6 IV (17:33)
[2016-12-26] MEDS ORDERED: POVI28.4 TP (17:33)
[2016-12-26] MEDS ORDERED: BLOO-668 IN (17:33)
[2016-12-26] MEDS ORDERED: SODI480S2 TOP (17:33)
[2016-12-26] MEDS ORDERED: CADE40GE2 TP (17:33)
[2016-12-26] MEDS ORDERED: NEOM15OI3 TP (17:33)
[2016-12-26] MEDS ORDERED: DEXT50DI8 IV (17:33)
[2016-12-26] MEDS ORDERED: HYDR-552 GT (17:33)
[2016-12-26] MEDS ORDERED: HYDR1SOL TP (17:33)
[2016-12-26] MEDS ORDERED: POLY15DR40 EACHEYE (17:33)
[2017-06-24] MEDS ORDERED: TUBERCULIN,PURIF.PROT.DERIV. 5 TU/0.1 ML VIAL ID SCH (09:00)
[2017-10-01] MEDS ORDERED: TUBERCULIN,PURIF.PROT.DERIV. 5 TU/0.1 ML VIAL ID SCH (13:30)
== END 2016-12-26 20:45 | disposition short-term general hospital (02) | DRG 130 ==
LOC: SA 11:19
PROVIDERS: ADMIT Internal Medicine Nephrology; ATTEND Internal Medicine Nephrology
PROC: 5A1955Z Respiratory Ventilation, Greater than 96 Consecutive Hours (ICD-10-PCS; principal; 2016-09-30)
PROC: 05H633Z Insertion of Infusion Device into Left Subclavian Vein, Percutaneous Approach (ICD-10-PCS; 2016-11-16)
PROC: 0DC68ZZ Extirpation of Matter from Stomach, Via Natural or Artificial Opening Endoscopic (ICD-10-PCS; 2016-12-26)
DX: J96.10 Chronic respiratory failure, unspecified whether with hypoxia or hypercapnia (principal); K31.6 Fistula of stomach and duodenum; G93.1 Anoxic brain damage, not elsewhere classified; J18.9 Pneumonia, unspecified organism; L89.159 Pressure ulcer of sacral region, unspecified stage; N18.6 End stage renal disease; I12.0 Hypertensive chronic kidney disease with stage 5 chronic kidney disease or end stage renal disease; E11.22 Type 2 diabetes mellitus with diabetic chronic kidney disease; Z99.11 Dependence on respirator [ventilator] status; Z93.0 Tracheostomy status; Z99.2 Dependence on renal dialysis; Z89.612 Acquired absence of left leg above knee; Z93.1 Gastrostomy status; D64.9 Anemia, unspecified; K59.00 Constipation, unspecified; Z22.322 Carrier or suspected carrier of Methicillin resistant Staphylococcus aureus; Z79.4 Long term (current) use of insulin; I73.9 Peripheral vascular disease, unspecified; L08.9 Local infection of the skin and subcutaneous tissue, unspecified; M85.9 Disorder of bone density and structure, unspecified; S91.301A Unspecified open wound, right foot, initial encounter; X58.XXXA Exposure to other specified factors, initial encounter; Y92.89 Other specified places as the place of occurrence of the external cause; K56.7 Ileus, unspecified
CPT/HCPCS: 31720; 36415; 36569; 71010-TC; 71250-TC; 74000-TC; 80048-TC; 80053-TC; 80150; 80202-TC; 82272-TC; 82652; 82962-TC; 83735-TC; 84100-TC; 84146; 84550-TC; 85025-TC; 85027-TC; 87040-TC; 87070-TC; 87081-TC; 87186-TC; 94003-TC; 94760-TC; 94762-TC; 94799-TC; 97001-TC; 97003-TC; 99082-TC; A4216; A4606; A4623; A6248; A6253; A6402; A7526; J0690; J0696; J1450; J1644; J1815; J2185; J2704; J2765; J3370; J3490; J7030; J7040; J7042; J7060; Z7610

== ENCOUNTER 2016-12-26 16:46 | Inpatient (IN) | payer MEDICAID ==
[2016-12-26] VITALS (40 sets, daily range): BP systolic 43–163; BP diastolic 26–71
[~2016-12-26] VITALS: Ht 162.6 cm; Wt 78.9 kg
--- NOTE | 2016-12-26 16:50 | NUR ---
PATIENT BIB RN FROM SUB ACUTE D/T BLEEDING FROM GTUBE SITE. BLEEDING IS MODERATE AMOUNT WITH BRIGHT RED BLOOD. PATIENT IS VENT/TRACH DEPENDENT. PATIENT HAS MIDLINE ON LEFT UPPER ARM, LLQ COLOSTOMY, AND LEFT AKA. DRESSING CHANGED WITH MD AT BEDSIDE. PRESSURE DRESSING APPLIED WITH GAUZE. WILL CONTINUE TO MONITOR PATIENT.
--- NOTE | 2016-12-26 16:52 | NUR ---
PAGED DR POE FOR ADMISSION
[2016-12-26] MEDS ORDERED: PANTOPRAZOLE 40 MG VIAL ONE (16:53)
--- NOTE | 2016-12-26 16:55 | NUR ---
CALLED DR ANDREW FOR CONSULT, TRANSFERRED CALL TO DR RACHEL
[2016-12-26] MEDS ORDERED: PANTOPRAZOLE 40 MG VIAL IV ONE (17:00)
[2016-12-26] MEDS ORDERED: DESMOPRESSIN 20 MCG in IV NS 0.9% 50 ML IV ONE (17:00)
[2016-12-26] MEDS ORDERED: IV NS 0.9% 1,000 ML BAG IV ONE (17:00)
--- NOTE | 2016-12-26 17:10 | NUR ---
PER DR. RACHEL, ONLY INFUSE 1L OF NS D/T PATIENTS BLOOD PRESSURE INCREASING. PATIENT IS ALSO ESRD PATIENT. DR. RACHEL AWARE AND ONLY STATED TO INFUSE 1L AND UPDATE AFTER COMPLETION.
[2016-12-26 17:12] LABS: BASOPHILS % (AUTO) 0.2 % (0.0-2.0); EOSINOPHILS # (AUTO) 0.2 /CMM (0.0-0.7); EOSINOPHILS % (AUTO) 0.9 % (0.0-6.0); HEMATOCRIT 23 % (33-45); HEMOGLOBIN 7.3 g/dL (11.5-14.8); LYMPHOCYTES % (AUTO) 12.1 % (20.0-44.0); MEAN CORPUSCULAR HEMOGLOBIN 30 PG (26.0-33.0); MEAN CORPUSCULAR HGB CONC 32 g/dl (31.0-36.0); MEAN CORPUSCULAR VOLUME 95 fL (82-100); MONOCYTES # (AUTO) 1.3 /CMM (0.1-1.30); MONOCYTES % (AUTO) 7.6 % (2.0-12.0); NEUTROPHILS # (AUTO) 13.1 /CMM (1.8-8.9); NEUTROPHILS % (AUTO) 79.2 % (43.0-81.0); PLATELET COUNT (AUTO) 311 /CMM (150-450); RDW COEFFICIENT OF VARIATION 17.8 (11.5-15.0); RED BLOOD CELL COUNT(AUTO) 2.46 MIL/uL (4.0-5.2); WHITE BLOOD COUNT (AUTO) 16.5 K/uL (4.3-11.0)
[2016-12-26 17:26] LABS: ALANINE AMINOTRANSFERASE 15 U/L (12-78); ALBUMIN 2.2 g/dL (3.4-5.0); ALKALINE PHOSPHATASE 302 U/L (46-116); ASPARTATE AMINOTRANSFERASE 9 U/L (15-37); BILIRUBIN,DIRECT 0.1 mg/dL (0.0-0.2); BILIRUBIN,TOTAL 0.4 mg/dL (0.2-1.0); CALCIUM, SERUM 10.3 mg/dL (8.5-10.1); CARBON DIOXIDE 34 mmol/L (21-32); CHLORIDE 92 mmol/L (98-107); CREATININE 5.2 mg/dL (0.6-1.3); GLUCOSE 154 mg/dL (74-106); POTASSIUM 3.7 mmol/L (3.5-5.1); SODIUM SERUM 137 mmol/L (136-145); TOTAL PROTEIN, SERUM 8.5 g/dL (6.4-8.2); UREA NITROGEN, BLOOD 69 mg/dL (7-18)
[2016-12-26 17:28] LABS: INR 1.17 (0.87-1.13); PROTHROMBIN TIME 12.6 SECS (9.5-12.7); TROPONIN I < 0.017 ng/mL (0.00-0.056)
[2016-12-26] MEDS ORDERED: PIPERACILLIN /TAZOBACTAM 3.375 G in IV D5W 50 ML IV ONE (17:30)
[2016-12-26] MEDS ORDERED: POLY15DR40 EACHEYE (17:33)
[2016-12-26] MEDS ORDERED: DEXT50DI8 IV (17:33)
[2016-12-26] MEDS ORDERED: NEOM15OI3 TP (17:33)
[2016-12-26] MEDS ORDERED: METO5VIA6 IV (17:33)
[2016-12-26] MEDS ORDERED: SODI480S2 TOP (17:33)
[2016-12-26] MEDS ORDERED: HYDR-4076 GT (17:33)
[2016-12-26] MEDS ORDERED: AMIK250V8 IV (17:33)
[2016-12-26] MEDS ORDERED: CEFT2VIA5 IV (17:33)
[2016-12-26] MEDS ORDERED: NYST60PO TP (17:33)
[2016-12-26] MEDS ORDERED: HYDR-552 GT (17:33)
[2016-12-26] MEDS ORDERED: VANC1VIA2 IV (17:33)
[2016-12-26] MEDS ORDERED: HYDR1SOL TP (17:33)
[2016-12-26] MEDS ORDERED: POVI28.4 TP (17:33)
[2016-12-26] MEDS ORDERED: CADE40GE2 TP (17:33)
[2016-12-26] MEDS ORDERED: BLOO-668 IN (17:33)
--- NOTE | 2016-12-26 18:10 | NUR ---
REPORT GIVEN TO RNJYOTSNA FOR ADMISSION
--- NOTE | 2016-12-26 18:15 | NUR ---
PATIENT TRANSPORTED TO ICU, 255 VIA ACLS PROTOCOL.
--- NOTE | 2016-12-26 18:40 | NUR ---
MACHINE PULLER NOTES RECEIVED PATIENT FROM ER WITH CC OF GT SITE BLEEDING , NOT IN ACUTE DISTRESS , RESPIRATIOSN EVEN AND UNLABORED WITH SPO2 OF 100% VIA MECHANICAL VENT SETTINGS ORDERED , TRAHC OF TRACEY # [address] , ST 105 ON BEDSIDE MONITOR , BP OF 75/55 GIVING 1L NS AT THIS TIME , GT IN PLACE WITH PRESSURE DRESSING IN PLACE , LLQ COLOSTOMY DRAINING WITH DARK GREEN OUTPUT , ON KCI MATTRESS , ALEXSANDRA MIDLINE PATENT AND INTACT , RFA SHUNT WITH BRUIT AND THRILL , ALL NEEDS ATTENDED , BED ON LOW AND LOCKED POSITION , SIDE RAILS X2 ,CALL LIGHT WITHIN REACH , HOB @ 35 , WILL CONTINUE TO MONITOR
[2016-12-26] MEDS ORDERED: MIDAZOLAM HCL 2 MG/2ML VIAL ONE (18:48)
--- NOTE | 2016-12-26 19:10 | NUR ---
CATERPILLAR DRIVER NOTES OR TEAM AT BEDSIDE WITH DR ANDREW FOR EGD AND PEG PLACEMENT , PROCEDURE CONSENT , ANESTHESIA AND BLOOD CONSENT ARE SIGNED OBTAINED FROM SUB ACUTE UNIT , WILL CONTINUE TO MONITOR
[2016-12-26] MEDS ORDERED: FEE PK DOSING 1 MIN EA MC ONE (19:30)
--- NOTE | 2016-12-26 19:45 | NUR ---
ROUTE PROCESS ADMINISTRATOR NOTES S/P GT REMOVAL , NOTED WITH BLEEDING , PRESSURE DRESSING APPLIED BY OR NURSE , ORDERED NEOMYCIN OINTMENT FOR GT SITE , BP OF 79/ 40 WITH ONGOING 500ML BOLUS , ST 115 , SPO2 OF 95% VIA MECHANICAL VENTILATOR , SPOKE WITH DR POE FOR ADMITTING ORDERED , PER MD HE WILL PUT ADMITTING ORDER , SPOKE WITH DR ANDREW VERIFIED BLOOD TRANSFUSION ORDER FROM ER , PER MD GIVE 2 UNITS PRBC ORDERED . ORDERS CARRIED OUT
[2016-12-26] MEDS ORDERED: ANESTHESIA TRAY IN PYXIS 1 EA TRAY MC ONE (19:58)
[2016-12-26] MEDS: IV D5/ 0.9% NACL 1,000 ML IV PRN (21:15)
[2016-12-26] MEDS: MEROPENEM 500 MG in IV NS 0.9% 50 ML IV SCH (21:15)
[2016-12-26] MEDS: NEOMY SULF/BACITRAC ZN/POLY 15 GM TUBE TP PRN (21:19)
--- NOTE | 2016-12-26 21:50 | NUR ---
MONTESSORI PARAPROFESSIONAL PT CONTINUES TO HAVE LOW SBP CALL PLACED TO DR POE WITH ORDERS RCD FOR 1L NS BOLUS IF INEFFECTIVE START LEVOPHED. PER MD USE MIDLINE; NO ORDER FOR PICC LINE OBTAINED. MD ALSO GAVE ORDERS TO CONTINUE HOME MEDS INFORMED MD OF NO GTUBE; NO ORDER FOR NG TUBE MD THEN SAID CONTINUE ACCU CHECK AND INSULIN. ORDERS CARRIED OUT.
[2016-12-26] MEDS ORDERED: IV NS 0.9% 1,000 ML IV PRN (22:00)
[2016-12-26] MEDS ORDERED: NOREPINEPHRINE 4 MG/4 ML AMPUL IV ONE (22:10)
[2016-12-26] MEDS: NOREPINEPHRINE 16 MG in IV D5W 500 ML IV PRN (22:20)
[2016-12-27] VITALS (97 sets, daily range): BP systolic 68–167; BP diastolic 36–92
[2016-12-27] MEDS ORDERED: BLOOD SUGAR DIAGNOSTIC 1 EACH STRIP IN SCH
[2016-12-27] MEDS ORDERED: INSULIN REGULAR, HUMAN 100 UNIT/ML 3 ML VIAL SQ PRN
[2016-12-27] MEDS: BLOOD SUGAR DIAGNOSTIC 1 EACH STRIP IN SCH ×5 (00:29→23:48)
[2016-12-27] MEDS ORDERED: DEXTROSE 50%-WATER 50 ML DISP.SYRIN IV PRN ×2 (00:30)
[2016-12-27] MEDS: INSULIN REGULAR, HUMAN 100 UNIT/ML 3 ML VIAL SQ PRN ×5 (00:38→23:48)
[2016-12-27 04:48] LABS: BASOPHILS % (AUTO) 0.3 % (0.0-2.0); EOSINOPHILS # (AUTO) 0.2 /CMM (0.0-0.7); EOSINOPHILS % (AUTO) 1.2 % (0.0-6.0); HEMATOCRIT 29 % (33-45); HEMOGLOBIN 9.3 g/dL (11.5-14.8); LYMPHOCYTES # (AUTO) 0.9 /CMM (0.8-4.8); LYMPHOCYTES % (AUTO) 5.4 % (20.0-44.0); MEAN CORPUSCULAR HEMOGLOBIN 30 PG (26.0-33.0); MEAN CORPUSCULAR HGB CONC 33 g/dl (31.0-36.0); MEAN CORPUSCULAR VOLUME 93 fL (82-100); MONOCYTES # (AUTO) 0.9 /CMM (0.1-1.30); MONOCYTES % (AUTO) 5.1 % (2.0-12.0); PLATELET COUNT (AUTO) 298 /CMM (150-450); RDW COEFFICIENT OF VARIATION 18.2 (11.5-15.0); RED BLOOD CELL COUNT(AUTO) 3.08 MIL/uL (4.0-5.2); WHITE BLOOD COUNT (AUTO) 17.1 K/uL (4.3-11.0)
[2016-12-27 05:21] LABS: CALCIUM, SERUM 9.8 mg/dL (8.5-10.1); CREATININE 5.3 mg/dL (0.6-1.3); MAGNESIUM 2.1 mg/dL (1.8-2.4); PHOSPHORUS 4.7 mg/dL (2.5-4.9)
[2016-12-27 05:25] LABS: POTASSIUM 3.8 mmol/L (3.5-5.1)
[2016-12-27 06:02] LABS: BAND % (MANUAL) 1 % (0.0-5.0); EOSINOPHILS % (MANUAL) 1 % (0-4); LYMPHOCYTES % (MANUAL) 5 % (16-48); MONOCYTES % (MANUAL) 5 % (0-11.0); NEUTROPHILS % (MANUAL) 88 (42-76)
--- NOTE | 2016-12-27 07:53 | NUR ---
FORGE HAND RECEIVED PATIENT ASLEEP ON MECHANICAL VENTILATORY SUPPORT SATURATION 100% ON D5NS AT 50 ML INFUSING WELL BASAL BODY TEMPERATURE WNL SINUS RHYTHM ON THE MONITOR MAINTAINED ON NPO PER MD MAINTAINED ON LEVOPHED AT 1 MCGS, CONTINUE TO MONITOR MONITORED BLOOD PRESSURE ACCORDINGLY
[2016-12-27] MEDS: MEROPENEM 500 MG in IV NS 0.9% 50 ML IV SCH ×2 (08:20→21:04)
[2016-12-27] MEDS: FLUCONAZOLE IN NS 100 MG in PREMIX 1 EA IV SCH ×2 (09:20)
[2016-12-27] MEDS: INSULIN DETEMIR 100 UNIT/ML CARTRIDGE SQ SCH ×2 (12:22→23:47)
[2016-12-27] MEDS: IV D5/ 0.9% NACL 1,000 ML IV PRN (14:35)
[2016-12-27] MEDS: VANCOMYCIN 500 MG in IV D5W 100 ML IV PRN (17:28)
[2016-12-27] MEDS: NOREPINEPHRINE 16 MG in IV D5W 500 ML IV PRN (17:30)
--- NOTE | 2016-12-27 19:37 | NUR ---
BUNCH MAKER HAND. INITIAL ASSESSMENT. RECEIVED THE PT REST ON THE BED. OPEN EYES. DOES NOT FOLLOW COMMANDS. CONDITIONING YARD SUPERVISOR SHOWING NSR. TRACH TO VENT CONNECTED. SHILEY#8, AC 12,TV 500,FIO2 40%, PEEP 5. SAT 98%. IV RT ARM AV FISTULA. LT ARM MID LINE. IVF D5NS 75ML/H, LEVOPHED 1MCG/MIN. COLOSTOMY BAG INTACT. HOB ELEVATED, TURN AND REPOSITION Q2H. WILL CONTINUE TO MONITOR VITALS.
[2016-12-28] VITALS (56 sets, daily range): BP systolic 95–172; BP diastolic 58–86
--- NOTE | 2016-12-28 01:54 | NUR ---
THIRD HAND. REPORT GIVEN TO WELLINGTON MARINO.DR RALPH POE SEEN THE PT NO NEW ORDERS.
--- NOTE | 2016-12-28 02:00 | NUR ---
Received patient obtunded in vegetative state.Chronic vent dependent respiratory failure.Tolerating vent settings.Secretions suctioned.Open eyes spontaneously non interactive. Oral care done.Open GT site leaking yellowish colored liquid.No active bleeding noted.Dressing changed.Colostomy with coffee ground colored liquid.Bathed and complete linens changed turned and repositioned.IVF infusing to ALEXSANDRA Midline.Dressing done under aseptic technique.
[2016-12-28] MEDS: IV D5/ 0.9% NACL 1,000 ML IV PRN (04:58)
[2016-12-28 05:36] LABS: BILIRUBIN,TOTAL 0.3 mg/dL (0.2-1.0); CALCIUM, SERUM 9.9 mg/dL (8.5-10.1); PHOSPHORUS 3.8 mg/dL (2.5-4.9); POTASSIUM 3.9 mmol/L (3.5-5.1); TOTAL PROTEIN, SERUM 8.3 g/dL (6.4-8.2)
[2016-12-28 05:47] LABS: BASOPHILS % (AUTO) 0.4 % (0.0-2.0); EOSINOPHILS # (AUTO) 0.4 /CMM (0.0-0.7); EOSINOPHILS % (AUTO) 4.4 % (0.0-6.0); HEMATOCRIT 28 % (33-45); HEMOGLOBIN 9.1 g/dL (11.5-14.8); LYMPHOCYTES # (AUTO) 1.3 /CMM (0.8-4.8); LYMPHOCYTES % (AUTO) 15.2 % (20.0-44.0); MEAN CORPUSCULAR HEMOGLOBIN 30 PG (26.0-33.0); MEAN CORPUSCULAR HGB CONC 32 g/dl (31.0-36.0); MEAN CORPUSCULAR VOLUME 92 fL (82-100); MONOCYTES # (AUTO) 0.8 /CMM (0.1-1.30); MONOCYTES % (AUTO) 9.8 % (2.0-12.0); NEUTROPHILS % (AUTO) 70.2 % (43.0-81.0); PLATELET COUNT (AUTO) 228 /CMM (150-450); RDW COEFFICIENT OF VARIATION 18.1 (11.5-15.0); RED BLOOD CELL COUNT(AUTO) 3.07 MIL/uL (4.0-5.2); WHITE BLOOD COUNT (AUTO) 8.6 K/uL (4.3-11.0)
[2016-12-28 06:05] LABS: ALBUMIN 2.1 g/dL (3.4-5.0)
[2016-12-28] MEDS: BLOOD SUGAR DIAGNOSTIC 1 EACH STRIP IN SCH ×4 (06:38→23:58)
[2016-12-28] MEDS: INSULIN REGULAR, HUMAN 100 UNIT/ML 3 ML VIAL SQ PRN ×2 (06:39→17:23)
--- NOTE | 2016-12-28 06:50 | NUR ---
Patient resting.No significant change noted.VS stable.Blood sugar 156 coverage given per ss. No acute distress noted.Turned and repositioned.
[2016-12-28] MEDS: MEROPENEM 500 MG in IV NS 0.9% 50 ML IV SCH ×2 (08:06→21:00)
--- NOTE | 2016-12-28 08:39 | NUR ---
BREAKFAST COOK RECEIVED PATIENT ASLEEP (+) PAIN STIMULUS , WARM TO TOUCH SUCTIONED SECTION THROUGH MOUTH AT SMALL AMOUNT MODERATE AMOUNT OF OUTPUT DRAINING FROM STOMA COLOSTOMY BAG IN PLACED NO OTHER UNTOWARD SYMPTOMS NOTED
--- NOTE | 2016-12-28 08:49 | NUR ---
RT PATIENT REC'D TRACHED ON [facility] VENT WITH NOTED SETTINGS SET BY MD CESARIO ESPINAL. VENT ALARMS CHECKED + AUDIBLE. CUFF PRESSURE CHECKED ASSISTANT PROPERTY MANAGER. TRACH SECURE AND IN PROPER POSITION. PATIENT APPEARS COMFORTABLE AND IN NO DISTRESS AT THIS TIME. VENT PLUGGED INTO RED OUTLET. BILAT DIM COARSE B/S HEARD. BILAT CHEST RISE NOTED. PATIENT SUCTIONED WITH SMALL/MOD AMT PALE SEMITHICK SECRETIONS. AMBU BAG AT HOB. CONT CURRENT PLAN OF REST CARE. Addendum: 12/28/16 at 0850 by EDMUND NOONAN RT Amended: Links added.
[2016-12-28] MEDS: FLUCONAZOLE IN NS 100 MG in PREMIX 1 EA IV SCH ×2 (09:00)
[2016-12-28] MEDS ORDERED: TPN/PPN PER PHARMACY IV PRN (12:00)
[2016-12-28] MEDS ORDERED: FEE TPN 1 MIN EA MC ONE (12:49)
[2016-12-28] MEDS ORDERED: TPN BAG#1 IV PRN ×7 (13:00)
[2016-12-28] MEDS: NEOMY SULF/BACITRAC ZN/POLY 15 GM TUBE TP PRN (17:23)
--- NOTE | 2016-12-28 20:00 | NUR ---
Received patient obtunded with same vent settings.Well tolerated sating 100%.Suctioned small amount clear secretions orally and via trach.Rhonchi all throughout.SR per monitor.GT site with colostomy bag in place with drainage.Left colostomy active.TPN infusing via ALEXSANDRA MIDLINE site intact.Multiple skin issues.Skin protection protocol implemented.Turned and repositioned.No acute distress noted.Continue monitoring.
[2016-12-28] MEDS: INSULIN DETEMIR 100 UNIT/ML CARTRIDGE SQ SCH (21:38)
[2016-12-29] VITALS (59 sets, daily range): BP systolic 85–179; BP diastolic 56–116
--- NOTE | 2016-12-29 | NUR ---
Patient resting.vs stable.Turned and repositioned.No distress noted.
[2016-12-29 05:21] LABS: CALCIUM, SERUM 9.7 mg/dL (8.5-10.1); CREATININE 4.7 mg/dL (0.6-1.3); PHOSPHORUS 3.6 mg/dL (2.5-4.9); POTASSIUM 4.1 mmol/L (3.5-5.1)
[2016-12-29] MEDS: BLOOD SUGAR DIAGNOSTIC 1 EACH STRIP IN SCH ×4 (06:00→23:06)
--- NOTE | 2016-12-29 06:00 | NUR ---
Patient resting.AM care done.Wound dressed and pictures taken.Blood sugar monitored and covered with sliding scale.Turned and repositioned.NAD noted.
[2016-12-29] MEDS: INSULIN REGULAR, HUMAN 100 UNIT/ML 3 ML VIAL SQ PRN ×5 (06:02→23:07)
--- NOTE | 2016-12-29 08:00 | NUR ---
CERAMIC ARTIST; ASSESSMENT RECEIVED PT VENTED VIA TRACH, SEE FLOW SHEET FOR VENT SETTINGS. PT IS OBTUNDED RESPONSE TO PAINFUL STIMULI. PT ON TPN, PICC LINE PENDING. PT IS ANURIC HD SCHEDULE FOR TODAY. AV FISTULA TO RIGHT LOWER ARM POSITIVE FOR THRILL AND BRUIT. LEFT AKA, NOTED RIGHT FOOT WITH WHAT APPEARS TO BE NECROSIS. NO ACUTE DISTRESS NOTED. WILL CONTINUE TO MONITOR.
[2016-12-29] MEDS: MEROPENEM 500 MG in IV NS 0.9% 50 ML IV SCH ×2 (08:19→21:04)
--- NOTE | 2016-12-29 08:43 | NUR ---
WOUND CARE CONSULT: PT PRESENTS WITH MULTIPLE SKIN ISSUES INCLUDING STAGE 4 ULCER TO SACRUM, EXCORIATION TO SKIN FOLDS AND GANGRENOUS AREAS OF RT LOWER EXTREMITY WITHOUT DRAINAGE. ALL SKIN PROTECTION AND WOUND RECOMMENDATIONS DISCUSSED WITH NURSING STAFF. PT ON FIRST STEP MATTRESS. DEFER TO DPM FOR RT LOWER EXTREMITY. PT TO BE TURNED AND REPOSITIONED EVERY 2 HRS PT CONDITION PERMITS, RT HEEL FLOATED. PT NOTED TO HAVE POUCH TO PREVIOUS G TUBE SITE (GASTROCUTANEOUS FISTULA) AND ALSO COLOSTOMY NOTED. WILL SEE PRN. FUENTES IN AGREEMENT WITH PLAN OF CARE. Addendum: 12/29/16 at 0847 by RICHARD DANG WNDNU Amended: Links added.
[2016-12-29] MEDS ORDERED: Z GUARD REMEDY 2 OZ OINT TP PRN (09:00)
[2016-12-29] MEDS ORDERED: HYDROGEL DRESSING 90 GM TUBE TP PRN (09:00)
[2016-12-29] MEDS: HYDROGEL DRESSING 90 GM TUBE TP SCH (11:03)
[2016-12-29] MEDS: Z GUARD REMEDY 2 OZ OINT TP SCH (11:04)
[2016-12-29] MEDS: VANCOMYCIN 500 MG in IV D5W 100 ML IV PRN (11:27)
[2016-12-29] MEDS ORDERED: TPN BAG #2 IV PRN ×5 (12:00)
[2016-12-29] MEDS: FLUCONAZOLE IN NS 100 MG in PREMIX 1 EA IV SCH ×4 (12:38→12:41)
--- NOTE | 2016-12-29 14:34 | NUR ---
GROUP CONTROLLER; TPN PLACE ON HOLD DUE TO NO CENTRAL LINE AVAILABLE YET. Whitney LUCIO LINING MECHANIC TO PLACE PICC LINE OR CENTRAL LINE.
[2016-12-29] MEDS ORDERED: EPOETIN ALFA (10,000 UNIT) 10,000 UNIT/ML VIAL SQ ONE (15:00)
[2016-12-29] MEDS ORDERED: SILVER NITRATE APPLICATOR 1 EA BOX TP STA (16:30)
[2016-12-29 16:37] LABS: BASOPHILS # (AUTO) 0.1 /CMM (0.0-0.2); BASOPHILS % (AUTO) 0.9 % (0.0-2.0); EOSINOPHILS # (AUTO) 0.4 /CMM (0.0-0.7); EOSINOPHILS % (AUTO) 4.5 % (0.0-6.0); HEMATOCRIT 32 % (33-45); HEMOGLOBIN 10.2 g/dL (11.5-14.8); LYMPHOCYTES # (AUTO) 1.3 /CMM (0.8-4.8); LYMPHOCYTES % (AUTO) 16.2 % (20.0-44.0); MEAN CORPUSCULAR HEMOGLOBIN 30 PG (26.0-33.0); MEAN CORPUSCULAR HGB CONC 31 g/dl (31.0-36.0); MEAN CORPUSCULAR VOLUME 94 fL (82-100); MONOCYTES # (AUTO) 0.4 /CMM (0.1-1.30); MONOCYTES % (AUTO) 5.4 % (2.0-12.0); NEUTROPHILS # (AUTO) 5.7 /CMM (1.8-8.9); PLATELET COUNT (AUTO) 243 /CMM (150-450); RED BLOOD CELL COUNT(AUTO) 3.42 MIL/uL (4.0-5.2); WHITE BLOOD COUNT (AUTO) 7.9 K/uL (4.3-11.0)
--- NOTE | 2016-12-29 16:42 | NUR ---
GENERAL CARGO CLERK; GI HAVE TO EMPTY COLOSTOMY BAG (GTUBE DRAIN) X2 WITH BRIGHT RED BLOOD. NOTED LARGE BLOOD CLOT. ANASTASIA TOLENTINO SPOUTING INSTALLER AT BEDSIDE. NEW ORDERS GIVEN FOR SILVER NITRATE.
[2016-12-29] MEDS ORDERED: SILVER NITRATE APPLICATOR 1 EA BOX TP ONE (17:00)
[2016-12-29] MEDS ORDERED: CELLULOSE,OXIDIZED 1 PKT EACH MC ONE (17:11)
[2016-12-29] MEDS ORDERED: CELLULOSE,OXIDIZED 1 EA PACK MC ONE (17:13)
--- NOTE | 2016-12-29 17:30 | NUR ---
PROSTHETIC LAB TECHNICIAN; MD SURGERY DR. DEEPIKA SOLIS AND ANASTASIA ORTHODONTIST AT BEDSIDE. ABLE TO CONTROL BLEEDING TO GTUBE SITE WITH SILVER NITRATE. COLOSTOMY BAG PLACED OVER SITE. WILL CONTINUE TO MONITOR CLOSELY FOR ACTIVE BLEDDING. H/H PENDING.
[2016-12-29 17:32] LABS: BASOPHILS # (AUTO) 0.1 /CMM (0.0-0.2); BASOPHILS % (AUTO) 0.6 % (0.0-2.0); EOSINOPHILS # (AUTO) 0.3 /CMM (0.0-0.7); EOSINOPHILS % (AUTO) 3.6 % (0.0-6.0); HEMATOCRIT 26 % (33-45); HEMOGLOBIN 8.5 g/dL (11.5-14.8); LYMPHOCYTES # (AUTO) 1.5 /CMM (0.8-4.8); MEAN CORPUSCULAR HEMOGLOBIN 30 PG (26.0-33.0); MEAN CORPUSCULAR HGB CONC 32 g/dl (31.0-36.0); MEAN CORPUSCULAR VOLUME 93 fL (82-100); MONOCYTES # (AUTO) 0.5 /CMM (0.1-1.30); MONOCYTES % (AUTO) 5.3 % (2.0-12.0); NEUTROPHILS # (AUTO) 6.9 /CMM (1.8-8.9); NEUTROPHILS % (AUTO) 74.5 % (43.0-81.0); PLATELET COUNT (AUTO) 204 /CMM (150-450); RDW COEFFICIENT OF VARIATION 17.9 (11.5-15.0); RED BLOOD CELL COUNT(AUTO) 2.86 MIL/uL (4.0-5.2); WHITE BLOOD COUNT (AUTO) 9.3 K/uL (4.3-11.0)
--- NOTE | 2016-12-29 19:35 | NUR ---
INTERIOR DESIGN PRINCIPAL INITIAL NOTE RECEIVED REPORT FROM GHAZAL MARINO. PT IN BED, OBTUNDED. CHRONIC VENT TRACH TOLERATING CURRENT VENT SETTINGS. LUNG SOUNDS RHONCHI, EXCESSIVE ORAL THIN SALIVATION NOTED. BOWEL SOUNDS HYPOACTIVE, COLOSTOMY INTACT, GT REMOVED 12/28 DUE TO BLEEDING COLOSTOMY COVERING SITE. LEFT AKA, RIGHT FOOT NECROSIS NOTED. IV LEFT IJ TLC FOR TPN, ON BAG #2 AT 50ML/HR CURRENTLY RUNNING. LEFT UPPER ARM MIDLINE. DIALYSIS DONE TODAY 1.5OUT PER DAY NURSE. PT IS ANURIC. BED IN LOW LOCKED POSITION. WILL CONTINUE TO MONITOR.
[2016-12-29] MEDS: INSULIN DETEMIR 100 UNIT/ML CARTRIDGE SQ SCH (21:07)
[2016-12-30] VITALS (57 sets, daily range): BP systolic 92–152; BP diastolic 42–81
[2016-12-30 05:19] LABS: CALCIUM, SERUM 8.9 mg/dL (8.5-10.1); CREATININE 3.6 mg/dL (0.6-1.3); MAGNESIUM 1.8 mg/dL (1.8-2.4); PHOSPHORUS 2.8 mg/dL (2.5-4.9); POTASSIUM 4.1 mmol/L (3.5-5.1)
[2016-12-30] MEDS: BLOOD SUGAR DIAGNOSTIC 1 EACH STRIP IN SCH ×3 (05:48→17:33)
[2016-12-30] MEDS: INSULIN REGULAR, HUMAN 100 UNIT/ML 3 ML VIAL SQ PRN ×3 (05:49→17:36)
--- NOTE | 2016-12-30 07:26 | NUR ---
Female trach pt received on mechanical vent. Pt trach is secure. Vent is plugged into a red outlet, alarms are set and audible, and BVM is at bedside. Addendum: 12/30/16 at 0727 by ANNMARIE CARVER RT Amended: Links added.
--- NOTE | 2016-12-30 07:38 | NUR ---
INITIAL YARDAGE ESTIMATOR NOTE RCVD PT WITH EYES CLOSED , UNABLE TO FOLLOW COMMANDS, SR ON TELE. VENT DEPENDENT, TOLERATING ORDERED VENT SETTINGS. COLOSTOMY BAGS OBSERVED OVER G-TUBE COLLECTING GASTRIC SECRETIONS. IV SITES C/D/I/PATENT. NO S/O INFILTRATION/PHLEBITIS OBSERVED. RIGHT FA AV SHUNT THRILL/BRUIT PRESENT. WILL CONTINUE TO MONITOR PT FOR SAFETY AND COMFORT. BED IN LOW AND LOCKED POSITION.
--- NOTE | 2016-12-30 08:13 | NUR ---
DELINQUENT TAX COLLECTION ASSISTANT NOTE COOLING MEASURES STARTED, PT'S TEMP 100.8 ORALLY. WILL CONTINUE TO MONITOR.
[2016-12-30 08:26] LABS: BASOPHILS % (AUTO) 0.4 % (0.0-2.0); EOSINOPHILS # (AUTO) 0.4 /CMM (0.0-0.7); EOSINOPHILS % (AUTO) 4.4 % (0.0-6.0); HEMATOCRIT 28 % (33-45); HEMOGLOBIN 8.6 g/dL (11.5-14.8); LYMPHOCYTES # (AUTO) 1.5 /CMM (0.8-4.8); LYMPHOCYTES % (AUTO) 18.2 % (20.0-44.0); MEAN CORPUSCULAR HEMOGLOBIN 29 PG (26.0-33.0); MEAN CORPUSCULAR HGB CONC 31 g/dl (31.0-36.0); MEAN CORPUSCULAR VOLUME 93 fL (82-100); MONOCYTES # (AUTO) 0.5 /CMM (0.1-1.30); MONOCYTES % (AUTO) 6.4 % (2.0-12.0); NEUTROPHILS # (AUTO) 5.7 /CMM (1.8-8.9); NEUTROPHILS % (AUTO) 70.6 % (43.0-81.0); PLATELET COUNT (AUTO) 205 /CMM (150-450); RDW COEFFICIENT OF VARIATION 17.8 (11.5-15.0); RED BLOOD CELL COUNT(AUTO) 2.95 MIL/uL (4.0-5.2); WHITE BLOOD COUNT (AUTO) 8.1 K/uL (4.3-11.0)
[2016-12-30] MEDS: FLUCONAZOLE IN NS 100 MG in PREMIX 1 EA IV SCH ×2 (08:39)
[2016-12-30] MEDS: MEROPENEM 500 MG in IV NS 0.9% 50 ML IV SCH ×2 (08:39→21:11)
[2016-12-30] MEDS: HYDROGEL DRESSING 90 GM TUBE TP SCH (08:41)
[2016-12-30] MEDS: Z GUARD REMEDY 2 OZ OINT TP SCH (08:45)
--- NOTE | 2016-12-30 10:23 | NUR ---
HEAD CHAR FILTER TANK TENDER NOTE TEMP DECREASED TO 99.6 ORALLY WILL CONTINUE TO MONITOR.
[2016-12-30] MEDS ORDERED: TPN BAG#4 IV PRN ×11 (11:00→12:52)
[2016-12-30] MEDS ORDERED: TPN BAG#3 IV PRN ×8 (11:00)
--- NOTE | 2016-12-30 13:12 | NUR ---
BOMB TECHNICIAN NOTE BRIGHT RED BLOOD OBSERVED DRAINING FROM G-TUBE STOMA. THICK, DARK CLOTS OBSERVED OCCLUDING STOMA, REYNA, CRN INFORMED AND CLOTS REMOVED. OSTOMY BAG REPLACED. WILL CONTINUE TO MONITOR.
--- NOTE | 2016-12-30 15:25 | NUR ---
READERS' ADVISORY SERVICE LIBRARIAN NOTE GASTRIC FLUID AND A SMALL AMOUNT OF BLOOD DRAINING FROM G-TUBE STOMA. WILL CONTINUE TO MONITOR.
--- NOTE | 2016-12-30 17:26 | NUR ---
RUBBER MILL TENDER NOTE DR. POE'S EXTERMINATION INSPECTOR AT BEDSIDE INFORMED OF PT'S BLEEDING EARLIER IN THE DAY. STOMA AREA WAS CAUTERIZED. NO BLEEDING OBSERVED. WILL CONTINUE TO MONITOR.
--- NOTE | 2016-12-30 18:20 | NUR ---
DOOR FURRING INSTALLER NOTE PT REMAINS STABLE, TOLERATING ORDERED VENT SETTINGS AND TPN. COLOSTOMY BAG OVER G-TUBE STOMA DRAINING GASTRIC FLUID. IV SITES C/D/I/PATENT. NO S/O INFILTRATION/PHLEBITIS OBSERVED. PT'S CARE WILL BE ENDORSED TO DIRECTOR UTILIZATION MANAGEMENT RN FOR CONTINUITY OF CARE. BED IN LOW AND LOCKED POSITION.
[2016-12-30] MEDS ORDERED: SILVER NITRATE APPLICATOR 1 EA BOX TP ONE (18:30)
--- NOTE | 2016-12-30 19:30 | NUR ---
ENGLISH TUTOR INITIAL NOTE RECEIVED REPORT FROM JUN MARINO. PT IN BED. OBTUNDED. CHRONIC VENT TRACH, TOLERATING VENT SETTINGS. LUNG SOUNDS RHONCHI WITH THIN ORAL SECRETIONS. BOWEL SOUNDS HYPOACTIVE, GT SITE COVERED WITH COLOSTOMY BAG BILE LIKE DRAINAGE. COLOSTOMY BAG INTACT. IV PATENT AND INTACT. PULSES PRESENT. LEFT AKA. RIGHT FOOT GANGRENE NOTED. OFFLOAD EXTREMITIES. REPOSITIONED FOR COMFORT. BED IN LOW LOCKED POSITION. WILL CONTINUE TO MONITOR.
[2016-12-30] MEDS: INSULIN DETEMIR 100 UNIT/ML CARTRIDGE SQ SCH (21:17)
[2016-12-31] VITALS (34 sets, daily range): BP systolic 97–162; BP diastolic 38–85
[2016-12-31] MEDS: INSULIN REGULAR, HUMAN 100 UNIT/ML 3 ML VIAL SQ PRN ×4 (00:03→18:27)
[2016-12-31] MEDS: BLOOD SUGAR DIAGNOSTIC 1 EACH STRIP IN SCH ×4 (00:03→18:21)
[2016-12-31 07:11] LABS: CREATININE 4.5 mg/dL (0.6-1.3); MAGNESIUM 2.2 mg/dL (1.8-2.4); PHOSPHORUS 3.3 mg/dL (2.5-4.9); POTASSIUM 4.3 mmol/L (3.5-5.1)
[2016-12-31] MEDS: HYDROGEL DRESSING 90 GM TUBE TP SCH (08:24)
[2016-12-31] MEDS: Z GUARD REMEDY 2 OZ OINT TP SCH (08:24)
[2016-12-31] MEDS: MEROPENEM 500 MG in IV NS 0.9% 50 ML IV SCH ×2 (08:58→21:17)
--- NOTE | 2016-12-31 09:10 | NUR ---
ICU/RN - Notes Hemodialysis completed, vital signs stable. No output.
[2016-12-31] MEDS: FLUCONAZOLE IN NS 100 MG in PREMIX 1 EA IV SCH ×2 (09:27)
--- NOTE | 2016-12-31 09:45 | NUR ---
ICU/RN - Notes Pt seen and evaluated by Dr Ng. Per , okay to transfer pt to BILL.
[2016-12-31] MEDS ORDERED: VANCOMYCIN 1 GM in IV D5W 250 ML IV ONE (10:00)
[2016-12-31] MEDS ORDERED: TPN BAG #5 IV PRN ×7 (14:30)
[2016-12-31] MEDS ORDERED: TPN BAG #6 IV PRN ×5 (15:00)
--- NOTE | 2016-12-31 16:00 | NUR ---
ICU/RN - Notes G-tube site ostomy bag changed. ~300 mL of dark brown to black liquid drainage noted.
--- NOTE | 2016-12-31 16:57 | NUR ---
ICU/RN - Transfer Pt transferred to BILL 117-1 per ACLS protocol accompanied by RT. Report given to NED Sexton for continuity of care.
--- NOTE | 2016-12-31 17:07 | NUR ---
RN INITIAL TRANSFER REPORT RECEIVED REPORT FROM ICU GEMA @ 1627. PT TRANSFERRED VIA GURNEY. PT OBTUNDED. PT LIJ TPN RUNING @ 60 ML/HR, ALEXSANDRA MIDLINE PATENT AND INTACT, RFA AV FISTULA FOR HD. PT JEFF HD TODAY NO FLD REMOVED. PT BILL MONITOR SR 1 DEGREE AV BLOCK. ALL SAFETY MEASURES IN PLACE WILL CONTINUE TO MONITOR CLOSELY. PATENT CLEAN AND DRY.
--- NOTE | 2016-12-31 19:40 | NUR ---
BILL RN INITIAL NOTE RECEIVED REPORT FROM LLOYD. PT IN BED, OBTUNDED. CHRONIC VENT TRACH TOLERATING CURRENT VENT SETTINGS. LUNG SOUNDS RHONCHI. BOWEL SOUNDS HYPOACTIVE WITH GT SITE LEAKING BILE INTO COLOSTOMY. TPN # 4 RUNNING, BAG #5 WILL BE ADMINISTERED. COLOSTOMY BAG INTACT. ANURIC. RIGHT FOREARM FISTULA. LEFT ARM ML AND LEFT IJ TLC. MULTIPLE SKIN ISSUES. REPOSITIONED FOR COMFORT. BED IN LOW LOCKED POSITION. WILL CONTINUE TO MONITOR.
--- NOTE | 2016-12-31 20:10 | NUR ---
BILL RN DR ANDREW AT BEDSIDE. GT SITE COLOSTOMY REMOVED FOR ASSESSMENT. PER DR ANDREW, SITE REAMINS VERY LARGE WITH A HEMATOMA SURROUNDING THE AREA. COLOSTOMY BAG CHANGED FOR COLLECTION OF DRAINAGE. WILL CONTINUE TO MONITOR.
[2016-12-31] MEDS: INSULIN DETEMIR 100 UNIT/ML CARTRIDGE SQ SCH (21:21)
[2017-01-01] VITALS (7 sets, daily range): BP systolic 124–169; BP diastolic 46–94
[2017-01-01] MEDS: BLOOD SUGAR DIAGNOSTIC 1 EACH STRIP IN SCH ×5 (00:04→23:00)
[2017-01-01] MEDS: INSULIN REGULAR, HUMAN 100 UNIT/ML 3 ML VIAL SQ PRN ×5 (00:04→23:00)
[2017-01-01] MEDS ORDERED: IV NS 0.9% 250 ML BAG IV ONE (03:30)
[2017-01-01] MEDS ORDERED: IV NS 0.9% 250 ML BAG IV PRN (03:30)
[2017-01-01 06:43] LABS: CALCIUM, SERUM 9.1 mg/dL (8.5-10.1); CREATININE 3.9 mg/dL (0.6-1.3); MAGNESIUM 2.3 mg/dL (1.8-2.4); PHOSPHORUS 2.9 mg/dL (2.5-4.9); POTASSIUM 4.3 mmol/L (3.5-5.1)
--- NOTE | 2017-01-01 07:45 | NUR ---
BILL/RN - Initial Notes Received pt in bed, obtunded. Chronic trach to vent with settings as ordered, tolerated well. On tele SR 69. No s/s of pain or discomfort. On TPN @ 60mL/hr. NPO as ordered. GT stoma to ostomy bag, with black liquid drainage noted. Colostomy noted. RFA AV fistula. Safey and comfort measures in place. Pt suctioned and repositioned for comfort. Will continue to monitor pt closely.
[2017-01-01] MEDS: MEROPENEM 500 MG in IV NS 0.9% 50 ML IV SCH (08:15)
[2017-01-01] MEDS: HYDROGEL DRESSING 90 GM TUBE TP SCH (08:16)
[2017-01-01] MEDS: Z GUARD REMEDY 2 OZ OINT TP SCH (08:16)
[2017-01-01] MEDS: FLUCONAZOLE IN NS 100 MG in PREMIX 1 EA IV SCH ×2 (08:59)
[2017-01-01] MEDS ORDERED: [UNRECOGNIZED DRUG - OTHER] IV PRN ×7 (15:30)
[2017-01-01] MEDS: LEVOFLOXACIN 250 MG /D5W 50 ML 250 MG in PREMIX 1 EA IV SCH (17:47)
[2017-01-01] MEDS ORDERED: GENTAMICIN 100 MG in IV D5W 100 ML IV ONE (18:00)
[2017-01-01] MEDS ORDERED: FEE PK DOSING 1 MIN EA MC ONE (18:30)
[2017-01-01] MEDS: PIPERACILLIN /TAZOBACTAM 2.25 G in IV D5W 50 ML IV SCH (21:00)
[2017-01-01] MEDS: INSULIN DETEMIR 100 UNIT/ML CARTRIDGE SQ SCH (22:58)
[2017-01-02 02:19] VITALS: BP 159/82
[2017-01-02 04:00] VITALS: BP 106/53
[2017-01-02] MEDS: PIPERACILLIN /TAZOBACTAM 2.25 G in IV D5W 50 ML IV SCH ×3 (05:00→21:21)
[2017-01-02 06:00] LABS: CALCIUM, SERUM 8.8 mg/dL (8.5-10.1); CREATININE 4.7 mg/dL (0.6-1.3); POTASSIUM 4.4 mmol/L (3.5-5.1)
[2017-01-02 06:04] LABS: MAGNESIUM 2.3 mg/dL (1.8-2.4)
[2017-01-02 06:06] LABS: GENTAMICIN,TROUGH 2.1 ug/ml (0.2-2.0)
[2017-01-02] MEDS: BLOOD SUGAR DIAGNOSTIC 1 EACH STRIP IN SCH ×4 (06:14→23:51)
[2017-01-02] MEDS: INSULIN REGULAR, HUMAN 100 UNIT/ML 3 ML VIAL SQ PRN ×4 (06:18→23:52)
--- NOTE | 2017-01-02 07:15 | NUR ---
RN INITIAL NOTES PT IS IN BED, OBTUNDED. NO ACTIVE BLEEDING NOTED. AFEBRILE, ON MECHANICAL VENT, SATURATING WELL. SINUS ON TELE MONITOR. NO RESPIRATORY DISTRESS NOTED. COLOSTOMY IS INTACT, ON TPN ON ALEXSANDRA MIDLINE, AND PATENT. TURNED AND REPOSITIONED PT WITH MAXIMUM ASSIST, SIDE RAILS UP, BED LOCKED AND IN LOWEST POSITION, HEMODIALYSIS TODAY AND WOUND CONSULT FOR STOMA TREATMENT. WILL CONTINUE TO MONITOR.
[2017-01-02 08:00] VITALS: BP 147/64
[2017-01-02] MEDS: Z GUARD REMEDY 2 OZ OINT TP SCH (08:53)
[2017-01-02] MEDS: HYDROGEL DRESSING 90 GM TUBE TP SCH (08:53)
[2017-01-02 12:00] VITALS: BP 104/48
[2017-01-02 16:00] VITALS: BP 146/60
[2017-01-02] MEDS ORDERED: TPN BAG #8 IV PRN ×6 (17:00)
--- NOTE | 2017-01-02 19:15 | NUR ---
RN INITIAL NOTES RECEIVED PATIENT IN BED, OBTUNDED, ABLE TO OPEN EYES SPONTANEOUSLY. PATIENT APPEARS CALM, NO DISTRESS OBSERVED. ON MECH VENT VIA TRACH, AIRWAY SUCTIONED AND KEPT CLEAR. TPN BAG #7 RUNNING ORDERED AT 70CC/HR ON PATIENT'S L IJ TLC, ALL PORTS FLUSHED AND PATENT. R FOREARM AV SHUNT WITH DRESSING INTACT, NO BLEEDING/DISCHARGE NOTED. ALEXSANDRA MIDLINE FLUSHED AND PATENT, ON SL. PATIENT IS SR AT HR OF 80s. WITH COLOSTOMY ON LLQ, COLOSTOMY BAG INTACT. GT STOMA WITH COLOSTOMY BAG FOR NOTED GREENISH-BLACK DRAINAGE, MALODOROUS. PATIENT'S NEEDS ANTICIPATED AND MET. SAFETY AND COMFORT ENSURED. BED IN LOW AND LOCKED POSITION. WILL MONITOR CLOSELY.
[2017-01-02] MEDS: GENTAMICIN 80 MG in IV D5W 50 ML IV PRN (19:19)
--- NOTE | 2017-01-02 19:27 | NUR ---
RN CLOSING NOTES NO SIGNIFICANT CHANGES DURING AM SHIFT. TOLERATING CURRENT MECHANICAL VENT SETTINGS, NO RESPIRATORY DISTRESS NOTED. TPN IS PATENT, NO S/SX OF INFECTION/INFILTRATION NOTED. WOUND TREATMENT DONE, TURNED AND REPOSITIONED PT Q2H, KEPT CLEAN AND DRY. COLOSTOMY BAG AND GASTROSTOMY BAG DRAINING, NO LEAKAGE NOTED. HD TODAY 1LITER OUT, V/S STABLE. ALL MEDS GIVEN ORDERED. STILL ON ISOLATION, ALL SAFETY MEASURES MAINTAINED. ALL NEEDS ANTICIPATED. ENDORSED TO PM NURSE FOR CONTINUATION OF CARE.
[2017-01-02 20:00] VITALS: BP 120/53
[2017-01-02] MEDS: INSULIN DETEMIR 100 UNIT/ML CARTRIDGE SQ SCH (21:27)
[2017-01-03] VITALS: BP 116/60
[2017-01-03 04:00] VITALS: BP 122/46
[2017-01-03] MEDS ORDERED: TPN BAG #9 IV PRN ×15 (05:00→14:47)
[2017-01-03] MEDS: PIPERACILLIN /TAZOBACTAM 2.25 G in IV D5W 50 ML IV SCH ×3 (05:33→21:17)
[2017-01-03] MEDS: BLOOD SUGAR DIAGNOSTIC 1 EACH STRIP IN SCH ×4 (05:34→23:07)
[2017-01-03] MEDS: INSULIN REGULAR, HUMAN 100 UNIT/ML 3 ML VIAL SQ PRN ×3 (05:38→23:02)
--- NOTE | 2017-01-03 06:40 | NUR ---
RN NOTES PATIENT WITH NO ACUTE CHANGE IN CONDITION OBSERVED OVERNIGHT. TPN BAG #8 INFUSING AT 70CC/HR ORDERED ON L IJ TLC. MECH VENT TOLERATED WELL, AIRWAY SUCTIONED NEEDED. ALL DUE MEDS GIVEN ORDERED. WOUND CARE RENDERED ORDERED. COLOSTOMY BAG DRAINING WELL. GT STOMA STILL DRAINING WITH GREENISH-BLACK DRAINAGE. REMAINS SR. NO DISTRESS. NEEDS ANTICIPATED AND MET. TURNED AND REPOSITIONED [id number]. SAFETY AND COMFORT ENSURED. BED IN LOW AND LOCKED POSITION. WILL ENDORSE ACCORDINGLY FOR CONTINUITY OF CARE.
--- NOTE | 2017-01-03 07:15 | NUR ---
RN INITIAL NOTES PT IS IN BED, OBTUNDED. ON MECHANICAL VENT, TOLERATING WELL. SINUS ON TELE MONITOR. NO RESPIRATORY DISTRESS NOTED. COLOSTOMY IS INTACT, ON TPN ON ALEXSANDRA MIDLINE, AND PATENT. AFEBRILE, TURNED AND REPOSITIONED PT WITH MAXIMUM ASSIST, SIDE RAILS UP, BED LOCKED AND IN LOWEST POSITION. WILL CONTINUE TO MONITOR.
[2017-01-03 08:00] VITALS: BP 153/71
[2017-01-03] MEDS: Z GUARD REMEDY 2 OZ OINT TP SCH (08:50)
[2017-01-03] MEDS: HYDROGEL DRESSING 90 GM TUBE TP SCH (08:50)
[2017-01-03 09:42] LABS: CALCIUM, SERUM 8.8 mg/dL (8.5-10.1); CREATININE 3.8 mg/dL (0.6-1.3); MAGNESIUM 1.9 mg/dL (1.8-2.4); PHOSPHORUS 2.7 mg/dL (2.5-4.9); POTASSIUM 4.4 mmol/L (3.5-5.1)
[2017-01-03] MEDS ORDERED: SILVER NITRATE APPLICATOR 1 EA BOX TP STA (10:30)
[2017-01-03 12:00] VITALS: BP 144/63
[2017-01-03] MEDS ORDERED: TPN BAG #10 IV PRN ×6 (15:00)
[2017-01-03 16:00] VITALS: BP 133/52
[2017-01-03] MEDS: LEVOFLOXACIN 250 MG /D5W 50 ML 250 MG in PREMIX 1 EA IV SCH (16:13)
--- NOTE | 2017-01-03 18:47 | NUR ---
RN CLOSING NOTES NO SIGNIFICANT CHANGES DURING AM SHIFT. TOLERATED CURRENT MECHANICAL VENT SETTINGS. SINUS RHYTHM ON TELE. PATIENT TOLERATING TPN RATE. ALL MEDS GIVEN ORDERED. WOUND TREATMENT DONE, TURNED AND REPOSITIONED Q2H, STILL ON CONTACT ISOLATION, ALL SAFETY MEASURES MAINTAINED, ALL NEEDS ANTICIPATED. BED LOCKED AND IN LOWEST POSITION. WILL ENDORSE TO PM NURSE FOR CONTINUATION OF CARE.
--- NOTE | 2017-01-03 19:30 | NUR ---
WELL TESTER INITIAL NOTE PT RECEIVED IN BED. OBTUNDED. ON MECH VENT WITH SETTINGS WELL TOLERATED AND SATURATING WELL. TELE- SINUS RHYTHM 92. IV ALEXSANDRA MIDLINE CLEAN, DRY AND PATENT. LEFT JUGULAR CLEAN WITH TPN RUNNING. RIGHT FOREARM AV SHUNT WITH THRILL AND BRUIT NOTED. COLOSTOMY IN PLACE, CLEAN AND DRAINING. GTUBE STOMA DRAINING. ISOLATION PRECAUTIONS OBSERVED. CALL LIGHT WITHIN REACH. WILL CONTINUE TO MONITOR.
[2017-01-03 20:00] VITALS: BP 112/45
[2017-01-03] MEDS: INSULIN DETEMIR 100 UNIT/ML CARTRIDGE SQ SCH (23:00)
[2017-01-04] VITALS: BP 122/42
[2017-01-04 04:00] VITALS: BP 120/44
[2017-01-04] MEDS: PIPERACILLIN /TAZOBACTAM 2.25 G in IV D5W 50 ML IV SCH ×3 (05:11→21:32)
[2017-01-04] MEDS: BLOOD SUGAR DIAGNOSTIC 1 EACH STRIP IN SCH ×4 (05:14→23:12)
[2017-01-04] MEDS: INSULIN REGULAR, HUMAN 100 UNIT/ML 3 ML VIAL SQ PRN ×4 (05:20→23:16)
[2017-01-04 07:18] LABS: BASOPHILS % (AUTO) 0.3 % (0.0-2.0); EOSINOPHILS # (AUTO) 0.4 /CMM (0.0-0.7); EOSINOPHILS % (AUTO) 4.6 % (0.0-6.0); HEMATOCRIT 25 % (33-45); HEMOGLOBIN 8.1 g/dL (11.5-14.8); LYMPHOCYTES # (AUTO) 1.4 /CMM (0.8-4.8); LYMPHOCYTES % (AUTO) 15.3 % (20.0-44.0); MEAN CORPUSCULAR HEMOGLOBIN 29 PG (26.0-33.0); MEAN CORPUSCULAR HGB CONC 32 g/dl (31.0-36.0); MEAN CORPUSCULAR VOLUME 92 fL (82-100); MONOCYTES # (AUTO) 0.6 /CMM (0.1-1.30); MONOCYTES % (AUTO) 6.6 % (2.0-12.0); NEUTROPHILS # (AUTO) 6.5 /CMM (1.8-8.9); NEUTROPHILS % (AUTO) 73.2 % (43.0-81.0); PLATELET COUNT (AUTO) 213 /CMM (150-450); RDW COEFFICIENT OF VARIATION 17.5 (11.5-15.0); RED BLOOD CELL COUNT(AUTO) 2.76 MIL/uL (4.0-5.2); WHITE BLOOD COUNT (AUTO) 8.9 K/uL (4.3-11.0)
[2017-01-04 07:26] LABS: CALCIUM, SERUM 9.2 mg/dL (8.5-10.1); CREATININE 4.4 mg/dL (0.6-1.3); POTASSIUM 4.4 mmol/L (3.5-5.1)
[2017-01-04 07:31] LABS: MAGNESIUM 2.2 mg/dL (1.8-2.4); PHOSPHORUS 3.1 mg/dL (2.5-4.9)
--- NOTE | 2017-01-04 07:40 | NUR ---
RN INITIAL NOTES PT IS IN BED, OBTUNDED. ON MECHANICAL VENT, TOLERATING WELL. SINUS ON TELE MONITOR. NO RESPIRATORY DISTRESS NOTED. COLOSTOMY IS INTACT, DRAINING. ON TPN ON ALEXSANDRA MIDLINE, AND PATENT. NOTED BLEEDING ON THE GASTROSTOMY FISTULA, ORDERED CBC AND WILL INFORM MD, AFEBRILE, TURNED AND REPOSITIONED PT WITH MAXIMUM ASSIST, SIDE RAILS UP, BED LOCKED AND IN LOWEST POSITION. WILL CONTINUE TO MONITOR.
--- NOTE | 2017-01-04 07:41 | NUR ---
SQL DATABASE PROGRAMMER CLOSING NOTE PT REMAINED STABLE DURING SHIFT. VENT SETTINGS WELL TOLERATED. ISOLATION PRECAUTIONS OBSERVED. COLOSTOMY BAG CHANGED. WOUND TREATMENT DONE. COLOSTOMY BAG FOR STOMA SITE CHANGED. REPOSITIONED Q2H. TPN RUNNING ON LEFT JUGULAR LINE. PT REMAINS NPO WITH BLOOD SUGAR AT 6AM 163 AND 2UNITS OF INSULIN GIVEN. KEPT CLEAN AND DRY. ALL SAFETY MEASURES IN PLACE. WILL ENDORSE TO NEXT SHIFT FOR CONTINUITY OF CARE.
[2017-01-04 07:43] LABS: GENTAMICIN,TROUGH 2.6 ug/ml (0.2-2.0)
[2017-01-04 08:00] VITALS: BP 154/63
[2017-01-04] MEDS: Z GUARD REMEDY 2 OZ OINT TP SCH (08:55)
[2017-01-04] MEDS: HYDROGEL DRESSING 90 GM TUBE TP SCH (08:55)
--- NOTE | 2017-01-04 09:00 | NUR ---
RN NOTES NOTED BLOOD CLOTS IN THE OSTOMY DRAINAGE BAG, CALLED AND LEFT A MESSAGE FOR NATALIE HERNÁNDEZ (PTS ) TO OBTAIN CONSENT TO CONTROL THE BLEEDING, BUT NO CALL BACK RECEIVED. EMERGENT CAUTERIZATION DONE BY THOMAS NATARAJAN. WILL CONTINUE TO MONITOR.
[2017-01-04] MEDS ORDERED: CELLULOSE,OXIDIZED 1 EA PACK MC ONE (11:00)
[2017-01-04 12:00] VITALS: BP 113/56
[2017-01-04] MEDS: GENTAMICIN 80 MG in IV D5W 50 ML IV PRN (14:08)
[2017-01-04] MEDS ORDERED: TPN BAG #11 IV PRN ×7 (14:30)
[2017-01-04] MEDS ORDERED: TPN BAG #12 IV PRN ×6 (15:00)
[2017-01-04 16:00] VITALS: BP 110/69
--- NOTE | 2017-01-04 18:45 | NUR ---
RN CLOSING NOTES NO SIGNIFICANT CHANGES DURING AM SHIFT. TOLERATED CURRENT MECHANICAL VENT SETTINGS. BLEEDING IN STOMA IN AM, DR ANDREW AWARE OF. PATIENT TOLERATING TPN RATE. ALL MEDS GIVEN ORDERED. WOUND TREATMENT DONE, TURNED AND REPOSITIONED Q2H, STILL ON CONTACT ISOLATION, ALL SAFETY MEASURES MAINTAINED, ALL NEEDS ANTICIPATED. BED LOCKED AND IN LOWEST POSITION. WILL ENDORSE TO PM NURSE FOR CONTINUATION OF CARE.
--- NOTE | 2017-01-04 19:30 | NUR ---
STRAP MAKER INITIAL NOTE PT RECEIVED RESTING IN BED. OBTUNDED. ON MECH VENT WITH SETTINGS WELL TOLERATED AND SATURATING WELL. ISOLATION PRECAUTIONS OBSERVED. IV LEFT JUGULAR WITH TPN RUNNING, CLEAN AND INTACT. IV ALEXSANDRA MIDLINE CLEAN AND INTACT. COLOSTOMY IN PLACE AND CLEAN. STOMA SITE WITH COLOSTOMY BAG FOR DRAINAGE COLLECTION NOTED IN PLACE AND CLEAN. CALL LIGHT WITHIN REACH. WILL CONTINUE TO MONITOR.
[2017-01-04 20:00] VITALS: BP 137/62
[2017-01-04] MEDS: INSULIN DETEMIR 100 UNIT/ML CARTRIDGE SQ SCH (23:15)
[2017-01-05] VITALS (10 sets, daily range): BP systolic 92–144; BP diastolic 47–77
[2017-01-05] MEDS: PIPERACILLIN /TAZOBACTAM 2.25 G in IV D5W 50 ML IV SCH ×3 (05:04→21:34)
[2017-01-05] MEDS: BLOOD SUGAR DIAGNOSTIC 1 EACH STRIP IN SCH ×3 (05:04→17:26)
[2017-01-05] MEDS: INSULIN REGULAR, HUMAN 100 UNIT/ML 3 ML VIAL SQ PRN ×3 (05:10→17:27)
--- NOTE | 2017-01-05 06:59 | NUR ---
MASTER CARPENTER CLOSING NOTE PT STILL BLEEDING FROM GTUBE SITE. TREATMENT PERFORMED AND CLEANSED SITE WITH NEW DRAINAGE BAG. KEPT CLEAN AND DRY. ALL NEEDS ATTENDED TO. REPOSITIONED Q2H. CALL LIGHT WITHIN REACH. ISOLATION PRECAUTIONS OBSERVED. WILL ENDORSE TO NEXT SHIFT FOR SOURAV.
[2017-01-05 07:13] LABS: BASOPHILS % (AUTO) 0.1 % (0.0-2.0); EOSINOPHILS # (AUTO) 0.4 /CMM (0.0-0.7); EOSINOPHILS % (AUTO) 2.8 % (0.0-6.0); HEMATOCRIT 21 % (33-45); LYMPHOCYTES # (AUTO) 1.6 /CMM (0.8-4.8); LYMPHOCYTES % (AUTO) 11.7 % (20.0-44.0); MEAN CORPUSCULAR HEMOGLOBIN 29 PG (26.0-33.0); MEAN CORPUSCULAR HGB CONC 32 g/dl (31.0-36.0); MEAN CORPUSCULAR VOLUME 91 fL (82-100); MONOCYTES # (AUTO) 0.8 /CMM (0.1-1.30); MONOCYTES % (AUTO) 5.9 % (2.0-12.0); NEUTROPHILS # (AUTO) 11.1 /CMM (1.8-8.9); NEUTROPHILS % (AUTO) 79.5 % (43.0-81.0); PLATELET COUNT (AUTO) 231 /CMM (150-450); RDW COEFFICIENT OF VARIATION 17.2 (11.5-15.0); RED BLOOD CELL COUNT(AUTO) 2.35 MIL/uL (4.0-5.2); WHITE BLOOD COUNT (AUTO) 13.9 K/uL (4.3-11.0)
[2017-01-05 07:23] LABS: HEMOGLOBIN 6.9 g/dL (11.5-14.8)
[2017-01-05 07:41] LABS: CALCIUM, SERUM 9.1 mg/dL (8.5-10.1); CREATININE 3.8 mg/dL (0.6-1.3); MAGNESIUM 2.1 mg/dL (1.8-2.4); PHOSPHORUS 2.7 mg/dL (2.5-4.9); POTASSIUM 4.4 mmol/L (3.5-5.1)
[2017-01-05] MEDS: HYDROGEL DRESSING 90 GM TUBE TP SCH (08:08)
[2017-01-05] MEDS: Z GUARD REMEDY 2 OZ OINT TP SCH (08:08)
[2017-01-05 08:24] LABS: EOSINOPHILS % (MANUAL) 3 % (0-4); LYMPHOCYTES % (MANUAL) 13 % (16-48); MONOCYTES % (MANUAL) 4 % (0-11.0); NEUTROPHILS % (MANUAL) 80 (42-76)
[2017-01-05] MEDS ORDERED: TPN BAG #12 IV PRN ×6 (09:27)
[2017-01-05] MEDS ORDERED: TPN BAG #13 IV PRN ×7 (10:00)
--- NOTE | 2017-01-05 11:03 | NUR ---
APPLICATIONS SUPPORT SPECIALIST NOTE 0720: Received patient obtunded. With trache to vent, tolerated settings well. With moderate amount of ramos secretions when suctioned. Still noted with GT stoma bleeding. With colostomy, intact, noted with liquid brown stool. ST 100's on the monitor. LIJ TLC intact, TPN infusing as ordered. ALEXSANDRA midline intact. 0830: Lab called with Hgb 6.9, called Dr. Wall's office, awaiting for MDs callback. 0910: S/E by Dr. Laird, made aware for the Hgb 6.9 with order of 1 unit PRBC. 1030: Spoke with Dr. Donavan Castro re: patient still noted with bleeding on the GT stoma site and with low H/H. No new order at this time.
--- NOTE | 2017-01-05 16:01 | NUR ---
METALLURGICAL OR MATERIALS TECHNICIAN NOTE Done with blood transfusion, no any adverse reactions noted. Bethany GUZMAN placed packing on the GT stoma site, no active bleeding noted at this time. Spoke with Emre Woodall, spoke with MANAGER FEDERAL and aware for the plan of care. Agreed and consented for GC closing and JT placement, witnessed by another nurse.
[2017-01-05] MEDS: LEVOFLOXACIN 250 MG /D5W 50 ML 250 MG in PREMIX 1 EA IV SCH (16:26)
--- NOTE | 2017-01-05 19:10 | NUR ---
RN NOTES PT RESTING WELL ON BED. TRACH AND VENT SETTING AC 12 TV 500 FIO2 40% PEEP 5 TOLERATED WELL. AFEBRILE. PALE LOOKING. NO ACTIVE BLEEDING NOTED AT THIS TIME. PT IS OBTUNDED WITH IV SITE ON ALEXSANDRA MIDLINE AND LEFT IJ WITH TLC RUNNING WITH TPN BAG#12 @ 80 CC/HR INTACT AND PATENT. FLUSHED WELL. WARMTH TO TOUCH AFEBRILE. ON STRICTLY OBSERVATION FOR ISOLATION PRECAUTION. KEPT PT CLEAN AND COMFORTABLE IN BED. KEPT PT CLEAN AND COMFORTABLE IN BED. REDUCED PRESSURE TO BONY PROMINENCE AREA. WILL CONTINUE TO MONITOR.
[2017-01-05] MEDS: INSULIN DETEMIR 100 UNIT/ML CARTRIDGE SQ SCH (21:54)
[2017-01-06] VITALS (11 sets, daily range): BP systolic 100–144; BP diastolic 36–83
[2017-01-06] MEDS: BLOOD SUGAR DIAGNOSTIC 1 EACH STRIP IN SCH ×5 (00:34→23:38)
[2017-01-06] MEDS: INSULIN REGULAR, HUMAN 100 UNIT/ML 3 ML VIAL SQ PRN ×5 (00:35→23:40)
[2017-01-06] MEDS: PIPERACILLIN /TAZOBACTAM 2.25 G in IV D5W 50 ML IV SCH ×3 (05:16→20:48)
[2017-01-06 06:40] LABS: CALCIUM, SERUM 8.5 mg/dL (8.5-10.1); CREATININE 4.3 mg/dL (0.6-1.3); PHOSPHORUS 2.7 mg/dL (2.5-4.9); POTASSIUM 4.5 mmol/L (3.5-5.1)
[2017-01-06 06:42] LABS: BASOPHILS % (AUTO) 0.2 % (0.0-2.0); EOSINOPHILS # (AUTO) 0.3 /CMM (0.0-0.7); EOSINOPHILS % (AUTO) 4.3 % (0.0-6.0); LYMPHOCYTES # (AUTO) 1.3 /CMM (0.8-4.8); MEAN CORPUSCULAR HEMOGLOBIN 30 PG (26.0-33.0); MEAN CORPUSCULAR HGB CONC 32 g/dl (31.0-36.0); MEAN CORPUSCULAR VOLUME 91 fL (82-100); MONOCYTES # (AUTO) 0.5 /CMM (0.1-1.30); MONOCYTES % (AUTO) 6.6 % (2.0-12.0); NEUTROPHILS # (AUTO) 5.9 /CMM (1.8-8.9); NEUTROPHILS % (AUTO) 72.9 % (43.0-81.0); PLATELET COUNT (AUTO) 200 /CMM (150-450); RDW COEFFICIENT OF VARIATION 16.5 (11.5-15.0); RED BLOOD CELL COUNT(AUTO) 2.02 MIL/uL (4.0-5.2); WHITE BLOOD COUNT (AUTO) 8.1 K/uL (4.3-11.0)
[2017-01-06 07:05] LABS: GENTAMICIN,RANDOM 2.2 ug/ml (4.0-8.0)
--- NOTE | 2017-01-06 07:24 | NUR ---
RN NOTES NO ACTIVE BLEEDING SHOWS THROUGHOUT THE SHIFT. WITH STABLE VS. INSULIN PER SLIDING SCALE TOLERATED WELL EFFECTIVE. CONTINUE ON TPN IV SITE REMAINED PATENT. KEPT PT CLEAN AND COMFORTABLE IN BED. SKIN CARE PROVIDED. ENDORSED CONTINUITY OF CARE TO AM NURSE.
[2017-01-06 07:37] LABS: HEMATOCRIT 19 % (33-45)
--- NOTE | 2017-01-06 07:43 | NUR ---
[facility] CALLED, TRYING TO REPORT CRITICAL HGB AND HCT TODAY, THEY TRIED CALLING FOR DR. CRAVEN, STRAIGHT TO ANSWERING MACHINE, THEY STATE THEY WILL PAGE HIM AND HAVE HIM CALL THE UNIT BACK.
[2017-01-06 08:05] LABS: BAND % (MANUAL) 2 % (0.0-5.0); EOSINOPHILS % (MANUAL) 4 % (0-4); LYMPHOCYTES % (MANUAL) 13 % (16-48); MONOCYTES % (MANUAL) 6 % (0-11.0); NEUTROPHILS % (MANUAL) 75 (42-76)
--- NOTE | 2017-01-06 08:27 | NUR ---
DR. IRMA POE NOTIFIED OF HGB AT 6.0 HE ORDERS FOR 1 UNIT PRBC
[2017-01-06] MEDS: HYDROGEL DRESSING 90 GM TUBE TP SCH (08:38)
[2017-01-06] MEDS: Z GUARD REMEDY 2 OZ OINT TP SCH (08:38)
[2017-01-06] MEDS ORDERED: BACITRACIN 50000 UNITS/VIAL ONE (09:49)
[2017-01-06] MEDS ORDERED: MIDAZOLAM HCL 2 MG/2ML VIAL ONE ×2 (09:54→11:14)
--- NOTE | 2017-01-06 10:48 | NUR ---
PT LEFT FOR PROCEDURE TO O.R, BLOOD TRANSFUSION, AND TPN CONTINUING WHILE IN O.R.
--- NOTE | 2017-01-06 11:20 | NUR ---
CABLE FORMER NOTE: END OF 1ST UNIT OF PRBC AT 1057 IN OR, STARTED 2ND PRBC AT [address] VEGA, SEE ANESTHESIA RECORD FOR VITAL SIGNS. CONTINUE TO MONITOR.
--- NOTE | 2017-01-06 11:44 | NUR ---
1ST UNIT OF PRBC COMPLETE WHILE IN O.R. FINISHED AT 1057. PAT FROM OR CALLS AND SAYS THEY ARE STARTING A 2ND UNIT, BUT WILL DOCUMENT PER OR PROTOCOL WHICH IS IN THE PHYSICAL CHART AND NOT IN MEDITECH.
--- NOTE | 2017-01-06 12:12 | NUR ---
CALLED OR AND TOLD OR NURSE THAT THERE IS A 1200 BLOOD GLUCOSE LEVEL. SHE STATES SHE WILL CHECK WHEN PT GOES INTO PACU FOR RECOVERY.
[2017-01-06] MEDS ORDERED: DESMOPRESSIN 20 MCG in IV NS 0.9% 50 ML IV ONE (12:30)
[2017-01-06] MEDS ORDERED: WEAN OFF TPN/PPN IV PRN (13:00)
--- NOTE | 2017-01-06 13:44 | NUR ---
DR. CRAVEN ON THE UNIT. UPDATED HIM ABOUT THE 2 UNITS PRBCs GIVEN. HE ORDERS TO HAVE A CBC DRAWN WITH THE START OF HD. TRES HD NURSE ON THE UNIT, NOTIFIED. AT THIS TIME THERE WAS A NEW G-TUBE PLACED BY DR. POE, BUT I DO NOT HAVE ORDERS WHEN IT IS OKAY TO START USING THE GTUBE FOR TF. OR NURSE STATES THAT DR. POE WILL PUT IN THE ORDERS IN [facility]... Addendum: 01/06/17 at 1351 by VIOLETTA DELGADO RN DR. HIGGINS STATES TO KEEP THE PT ON TPN AT THIS TIME. WILL CALL DR. IRMA POE TO FIND OUT WHEN THE GTUBE IS OKAY TO USE AND FOR ORDERS REGARDING THE WOUND DRESSING.
--- NOTE | 2017-01-06 14:04 | NUR ---
PER THE PYTHON WEB DEVELOPER WORKING WITH DR. IRMA POE, ORDERS ARE PLACED TO WEAN OFF TPN AND START TF NOVASOURCE PER DIETARY RECOMMENDATION FOR RATE. CALLED DIETARY THEY STATE THE RATE WILL BE 45ML/HR X18HRS. PHARMACY NOTIFIED.
[2017-01-06] MEDS ORDERED: TPN BAG #14 IV PRN ×7 (14:30)
[2017-01-06 15:28] LABS: BASOPHILS % (AUTO) 0.1 % (0.0-2.0); EOSINOPHILS # (AUTO) 0.3 /CMM (0.0-0.7); EOSINOPHILS % (AUTO) 2.3 % (0.0-6.0); LYMPHOCYTES # (AUTO) 1.3 /CMM (0.8-4.8); LYMPHOCYTES % (AUTO) 10.7 % (20.0-44.0); MEAN CORPUSCULAR HEMOGLOBIN 30 PG (26.0-33.0); MEAN CORPUSCULAR HGB CONC 33 g/dl (31.0-36.0); MEAN CORPUSCULAR VOLUME 89 fL (82-100); MONOCYTES # (AUTO) 0.4 /CMM (0.1-1.30); MONOCYTES % (AUTO) 3.4 % (2.0-12.0); NEUTROPHILS # (AUTO) 10.6 /CMM (1.8-8.9); NEUTROPHILS % (AUTO) 83.5 % (43.0-81.0); PLATELET COUNT (AUTO) 207 /CMM (150-450); RDW COEFFICIENT OF VARIATION 15.7 (11.5-15.0); RED BLOOD CELL COUNT(AUTO) 2.87 MIL/uL (4.0-5.2); WHITE BLOOD COUNT (AUTO) 12.6 K/uL (4.3-11.0)
[2017-01-06 16:06] LABS: HEMATOCRIT 26 % (33-45); HEMOGLOBIN 8.5 g/dL (11.5-14.8)
--- NOTE | 2017-01-06 18:30 | NUR ---
HD COMPLETE 2 LITERS OUT CALLED PHARMACY NOTIFIED THAT SHE NEEDS GENTAMYCIN ATBX PRN HD. AM LEVEL INDICATES TO GIVE.
--- NOTE | 2017-01-06 20:00 | NUR ---
RN NOTES PT EYES OPEN RESPONSIVE TO PAIN NON-VERBAL. ON TRACH CONNECTED TO VENT SETTING AC 12 TV 500 FIO2 40% PEEP5 TOLERATED WELL SATING 99%. WITH GTF RUNNING @ 40 CC/HR INTACT AND PATENT BUT WITH 50CC COFFEE GROUND RESIDUAL. HELD THE GTF FOR AWHILE AND WILL CALL MD TO INFORM IV SITE ON ALEXSANDRA MIDLINE HL, LEFT IJ RUNNING WITH TPN @ 40 CC/HR INTACT AND PATENT WITH GOOD BLOOD RETURN. RFA AV SHUNT WITH CLEANED DRESSING INTACT . KEPT PT CLEAN AND DRY. WILL CONTINUE TO MONITOR.
[2017-01-06] MEDS: INSULIN DETEMIR 100 UNIT/ML CARTRIDGE SQ SCH (20:59)
--- NOTE | 2017-01-06 21:00 | NUR ---
RN NOTES CALLED AND SPOKE WITH DR. POE INFORMED ABOUT THE PT 50 CC COFFEE GROUND RESIDUAL. PER MD TO CALL GI FOR AN ORDER.
--- NOTE | 2017-01-06 21:25 | NUR ---
RN NOTES CALLED DR. ANDREW AND LEFT A MESSAGE REGARDING PATIENT 50CC COFFEE GROUND RESIDUAL ON HER GT. WAITING TO CALL BACK
[2017-01-06] MEDS: GENTAMICIN 80 MG in IV D5W 50 ML IV PRN (21:44)
--- NOTE | 2017-01-06 21:46 | NUR ---
RN NOTES DR. ANDREW CALLED BACK WITH ORDER TO GIVE REGLAN 5 MG IVP X 1 AND RESUME FEEDING IN THE MORNING
[2017-01-06] MEDS ORDERED: METOCLOPRAMIDE HCL 10 MG/2 ML VIAL ONE (21:52)
[2017-01-06] MEDS ORDERED: METOCLOPRAMIDE HCL 10 MG/2 ML VIAL IV ONE (22:00)
[2017-01-07] VITALS (9 sets, daily range): BP systolic 110–187; BP diastolic 30–76
[2017-01-07] MEDS: PIPERACILLIN /TAZOBACTAM 2.25 G in IV D5W 50 ML IV SCH ×3 (04:30→21:14)
[2017-01-07] MEDS: BLOOD SUGAR DIAGNOSTIC 1 EACH STRIP IN SCH ×4 (04:31→23:40)
[2017-01-07] MEDS: INSULIN REGULAR, HUMAN 100 UNIT/ML 3 ML VIAL SQ PRN ×4 (04:32→23:43)
[2017-01-07 06:44] LABS: CALCIUM, SERUM 8.8 mg/dL (8.5-10.1); CREATININE 3.5 mg/dL (0.6-1.3); MAGNESIUM 1.8 mg/dL (1.8-2.4); POTASSIUM 3.9 mmol/L (3.5-5.1)
--- NOTE | 2017-01-07 07:25 | NUR ---
RN NOTES PT STILL NOTED WITH COFFEE GROUND RESIDUAL MUCH CLINICAL CARE LEADER THAN LAST NIGHT. ENDORSED TO NEXT SHIFT TO F/U IF WE WILL CONTINUE THE GTF. PT IS CLEAN AND DRY NO RESP DISTRESS. TOLERATED TRACH AND VENT.
--- NOTE | 2017-01-07 08:00 | NUR ---
RNN OTE PT STILL NOTED TO HAVE BROWN/COFFEE GROUND STOMACH CONTENT, ABOUT 60CC. WILL NOTIFY MD ANDREW. WILL CONTINUE TO MONITOR.
--- NOTE | 2017-01-07 10:00 | NUR ---
RN NOTE SPOKE WITH DR IRMA JOHNSONDING THE STOMACH CONTENT BEING COFFEE GROUND, HE ORDERED TO CHECK HGB AND HOLD THE G TUBE FEEDING, TO INCREASE THE TPN PER PHARMACY. WILL CARRY OUT THE ORDERS AND WILL MONITOR THE PT.
[2017-01-07] MEDS ORDERED: TPN BAG #15 IV PRN ×8 (11:00)
[2017-01-07] MEDS ORDERED: TPN BAG #16 IV PRN ×7 (11:00)
[2017-01-07] MEDS: PANTOPRAZOLE 40 MG VIAL IV SCH ×2 (11:44→21:13)
[2017-01-07] MEDS: HYDROGEL DRESSING 90 GM TUBE TP SCH (11:45)
[2017-01-07] MEDS: Z GUARD REMEDY 2 OZ OINT TP SCH (11:46)
[2017-01-07 12:20] LABS: HEMOGLOBIN 8.1 g/dL (11.5-14.8)
[2017-01-07 14:25] LABS: INR 0.99 (0.87-1.13); PROTHROMBIN TIME 10.6 SECS (9.5-12.7)
[2017-01-07] MEDS: LEVOFLOXACIN 250 MG /D5W 50 ML 250 MG in PREMIX 1 EA IV SCH (18:00)
[2017-01-07 18:09] LABS: HEMOGLOBIN 8.1 g/dL (11.5-14.8)
--- NOTE | 2017-01-07 19:00 | NUR ---
RN NOTE PT HGB STABLE, STOMACH CONTENT LOOKS CLEARER THAN BEFORE, STILL SMALL BROWN LIQUID MIXED WITH STOMACH JUICES, REPRTED TO DR IRMA POE HE ORDERED TO START TUBE FEEDING. WILL ENDORSE TO SUGAR TRUCKER NURSE. PT VS STABLE.
[2017-01-07] MEDS: RENAL NOVASOURCE 1,000 ML BOTTLE GT PRN (20:38)
[2017-01-07] MEDS: INSULIN DETEMIR 100 UNIT/ML CARTRIDGE SQ SCH (23:42)
[2017-01-08] VITALS (7 sets, daily range): BP systolic 119–137; BP diastolic 31–54
[2017-01-08] MEDS: PIPERACILLIN /TAZOBACTAM 2.25 G in IV D5W 50 ML IV SCH ×3 (05:19→21:21)
[2017-01-08] MEDS: BLOOD SUGAR DIAGNOSTIC 1 EACH STRIP IN SCH ×4 (05:36→23:33)
[2017-01-08] MEDS: INSULIN REGULAR, HUMAN 100 UNIT/ML 3 ML VIAL SQ PRN ×4 (05:39→23:37)
--- NOTE | 2017-01-08 06:07 | NUR ---
TELE-1/FUR TRAPPER GTF RESIDUAL 100ML. GTF HELD. TPN RATE INCREASED BACK TO 70ML/HR. TO INTAKE RATE OF 70ML/HR.
[2017-01-08 06:47] LABS: BASOPHILS % (AUTO) 0.3 % (0.0-2.0); EOSINOPHILS # (AUTO) 0.3 /CMM (0.0-0.7); EOSINOPHILS % (AUTO) 2.5 % (0.0-6.0); HEMATOCRIT 24 % (33-45); LYMPHOCYTES # (AUTO) 1.1 /CMM (0.8-4.8); LYMPHOCYTES % (AUTO) 10.6 % (20.0-44.0); MEAN CORPUSCULAR HEMOGLOBIN 30 PG (26.0-33.0); MEAN CORPUSCULAR HGB CONC 34 g/dl (31.0-36.0); MEAN CORPUSCULAR VOLUME 90 fL (82-100); MONOCYTES # (AUTO) 0.6 /CMM (0.1-1.30); MONOCYTES % (AUTO) 5.7 % (2.0-12.0); NEUTROPHILS # (AUTO) 8.7 /CMM (1.8-8.9); NEUTROPHILS % (AUTO) 80.9 % (43.0-81.0); PLATELET COUNT (AUTO) 204 /CMM (150-450); RDW COEFFICIENT OF VARIATION 15.9 (11.5-15.0); RED BLOOD CELL COUNT(AUTO) 2.66 MIL/uL (4.0-5.2); WHITE BLOOD COUNT (AUTO) 10.8 K/uL (4.3-11.0)
[2017-01-08 07:06] LABS: MAGNESIUM 1.8 mg/dL (1.8-2.4); PHOSPHORUS 2.9 mg/dL (2.5-4.9)
[2017-01-08 08:03] LABS: GENTAMICIN,TROUGH 2.3 ug/ml (0.2-2.0)
[2017-01-08] MEDS: PANTOPRAZOLE 40 MG VIAL IV SCH ×2 (10:00→21:21)
[2017-01-08] MEDS: Z GUARD REMEDY 2 OZ OINT TP SCH (10:00)
[2017-01-08] MEDS: HYDROGEL DRESSING 90 GM TUBE TP SCH (10:01)
[2017-01-08] MEDS: GENTAMICIN 80 MG in IV D5W 50 ML IV PRN (12:28)
[2017-01-08 14:47] LABS: CALCIUM, SERUM 8.5 mg/dL (8.5-10.1); CREATININE 3.1 mg/dL (0.6-1.3); POTASSIUM 4.2 mmol/L (3.5-5.1)
[2017-01-08] MEDS: INSULIN DETEMIR 100 UNIT/ML CARTRIDGE SQ SCH (23:36)
[2017-01-09] VITALS (13 sets, daily range): BP systolic 110–149; BP diastolic 41–75
[2017-01-09] MEDS: PIPERACILLIN /TAZOBACTAM 2.25 G in IV D5W 50 ML IV SCH ×3 (05:00→22:03)
[2017-01-09] MEDS: BLOOD SUGAR DIAGNOSTIC 1 EACH STRIP IN SCH ×4 (05:10→23:47)
[2017-01-09] MEDS: INSULIN REGULAR, HUMAN 100 UNIT/ML 3 ML VIAL SQ PRN ×3 (05:12→23:48)
[2017-01-09 06:22] LABS: BASOPHILS % (AUTO) 0.1 % (0.0-2.0); EOSINOPHILS # (AUTO) 0.3 /CMM (0.0-0.7); EOSINOPHILS % (AUTO) 2.8 % (0.0-6.0); HEMATOCRIT 22 % (33-45); HEMOGLOBIN 7.1 g/dL (11.5-14.8); LYMPHOCYTES # (AUTO) 1.3 /CMM (0.8-4.8); LYMPHOCYTES % (AUTO) 12.4 % (20.0-44.0); MEAN CORPUSCULAR HEMOGLOBIN 30 PG (26.0-33.0); MEAN CORPUSCULAR HGB CONC 33 g/dl (31.0-36.0); MEAN CORPUSCULAR VOLUME 91 fL (82-100); MONOCYTES # (AUTO) 0.6 /CMM (0.1-1.30); MONOCYTES % (AUTO) 6.2 % (2.0-12.0); NEUTROPHILS # (AUTO) 8.2 /CMM (1.8-8.9); NEUTROPHILS % (AUTO) 78.5 % (43.0-81.0); PLATELET COUNT (AUTO) 198 /CMM (150-450); RDW COEFFICIENT OF VARIATION 15.8 (11.5-15.0); RED BLOOD CELL COUNT(AUTO) 2.37 MIL/uL (4.0-5.2); WHITE BLOOD COUNT (AUTO) 10.4 K/uL (4.3-11.0)
[2017-01-09 06:47] LABS: CALCIUM, SERUM 8.4 mg/dL (8.5-10.1); CREATININE 3.6 mg/dL (0.6-1.3); MAGNESIUM 1.8 mg/dL (1.8-2.4); POTASSIUM 4.2 mmol/L (3.5-5.1)
[2017-01-09] MEDS: Z GUARD REMEDY 2 OZ OINT TP SCH (08:19)
[2017-01-09] MEDS: HYDROGEL DRESSING 90 GM TUBE TP SCH (08:19)
--- NOTE | 2017-01-09 08:22 | NUR ---
RN NOTES CALLED PHARAMACY TO DELIVER TPN
[2017-01-09] MEDS ORDERED: TPN BAG #17 IV PRN ×6 (09:00)
[2017-01-09] MEDS: PANTOPRAZOLE 40 MG VIAL IV SCH ×2 (09:17→22:03)
--- NOTE | 2017-01-09 13:14 | NUR ---
RN NOTES AIDAN CHARGE DEEPIKA SPOKE WITH DR DEEPIKA MD GAVE ORDER 1 UNIT PRBC. ORDERS NOTED AND CARRIED OUT
[2017-01-09] MEDS: LEVOFLOXACIN 250 MG /D5W 50 ML 250 MG in PREMIX 1 EA IV SCH (17:20)
[2017-01-09] MEDS: RENAL NOVASOURCE 1,000 ML BOTTLE GT PRN (17:49)
--- NOTE | 2017-01-09 18:00 | NUR ---
RN NOTES SPOKE WITH DR IRMA POE, REPORTED PT NOT TOLERATING GTF, NOTED WITH DORIS RESIDUAL OF MORE THAN 150ML AND ON THE LAST PREVIOUS SHIFTS. PER DR POE RESUME TF TOLERATED THEN START REGLAN 10MG IV Q6H
[2017-01-09] MEDS: METOCLOPRAMIDE HCL 10 MG/2 ML VIAL IV SCH ×2 (18:30→23:46)
--- NOTE | 2017-01-09 19:23 | NUR ---
RN NOTES PT RESTING IN BED COMFORTABLY, OBTUNDED, ON MECH VENT SETTINGS PRESCRIBED. SUCTIONED FOR AIRWAY CLEARANCE. GTF RETSRATED NOVASOURCE@20ML/HR, WILL MONITOR FOR ANY RESIDUAL. ENDORSED TO ILA MARINO FOR CONTINUITY OF CARE. TPN RUNNING@50ML/HR INFUSING ON L IJ. 1 UNIT PRBC ONGOING INFUSING ON ALEXSANDRA MIDLINE. NO TRANSFUSION REACTIONS NOTED AT THIS TIME. WOUND CARE PROVIDED. KEPT PT COMFORTABLE. ISOLATION PRECAUTION OBSERVED. CALL LIGHT WITHIN REACH MONITORED ACCORDINGLY.
[2017-01-09] MEDS ORDERED: TPN BAG #18 IV PRN ×7 (20:00)
--- NOTE | 2017-01-09 20:00 | NUR ---
RN NOTES RECEIVED PX TRACHED TO VENT WITH CUFF INTACT; G TUBE TO TF AT 20/HR, RESIDUAL AT 50, WILL RECHECK LATER BEFORE INCREASING DOSE RATE, G TUBE SITE COVERED WITH SPONGE DRESSING WITH MINIMAL BLOOD SOAK; NOTED MODERATELY YELLOW STAINED DRESSING ON THE RT UPPER QUAD; COLOSTOMY ALSO NOTED WITH MUCOID GREENISH SECRETION, NO LEAK NOTED; LEFT LOWER EXT STUMP CLEAN AND INTACT; REPOSITIONED PX; SUCTIONED ORALLY AND VIA TRACH; CONTINUED TO MONITOR. Addendum: 01/10/17 at 0445 by ILA COTA RN RECEIVED PX WITH TPN AT 50 PER HOUR WITH REPORT TO TITRATE TPN (SEE MD ORDER).
[2017-01-09] MEDS: INSULIN DETEMIR 100 UNIT/ML CARTRIDGE SQ SCH (22:04)
[2017-01-10] VITALS (7 sets, daily range): BP systolic 115–155; BP diastolic 28–67
--- NOTE | 2017-01-10 | NUR ---
RN NOTES TOLEREATED TF, RESIDUAL 40, INCREASED TF TO 30/HR. DECREASED TPN TO 40/HR.
--- NOTE | 2017-01-10 04:00 | NUR ---
RN NOTES RESIDUAL PER TF IS 180, HELD OFF TF FOR NOW, INCREASED TPN TO 50 (WITH MD ORDER TITRATE TPN TO 40 TF RATE INCREASES).
[2017-01-10] MEDS: PIPERACILLIN /TAZOBACTAM 2.25 G in IV D5W 50 ML IV SCH ×3 (04:25→21:11)
--- NOTE | 2017-01-10 04:41 | NUR ---
RN NOTES BED BATH RENDERED; CHANGED DRESSING ON TRACH, G TUBE SITE, WOUND ON RIGHT ABD, AND COLOSTOMY BAG, CHANGED DRESSING ON SACRAL AREA PER MD ORDER, PROCEDURES TOLERATED.
[2017-01-10] MEDS: METOCLOPRAMIDE HCL 10 MG/2 ML VIAL IV SCH ×4 (05:06→23:56)
[2017-01-10] MEDS: BLOOD SUGAR DIAGNOSTIC 1 EACH STRIP IN SCH ×4 (05:07→23:46)
[2017-01-10] MEDS: INSULIN REGULAR, HUMAN 100 UNIT/ML 3 ML VIAL SQ PRN ×3 (05:07→23:49)
[2017-01-10 06:05] LABS: MAGNESIUM 1.8 mg/dL (1.8-2.4)
--- NOTE | 2017-01-10 06:21 | NUR ---
RN NOTES RESIDUAL STILL HIGH AT 150, G TUBE FEEDING STILL BEING HELD, WILL RECHECK IN 2 HOURS; INCREASED TPN TO 70/HR; SUCTIONED ORALLY AND TRACHEALLY; NO LEAK FROM COLOSTOMY BAG, NO BLEEDING FROM G TUBE SITE, NO NEW SKIN BREAKDOWN; ALL IV ACCESS FLUSHABLE WITH SALINE; SR ON MONITOR.
--- NOTE | 2017-01-10 07:39 | NUR ---
RN INITIAL NOTE REPORT RECEIVED FROM [facility] PM SHIFT FOR SOURAV. VENT SETTING SHILEY #8, AC 12, TV 500, FI02 40%, PEEP 5. PT OBTUNDED. TELE SR. COLOSTOMY BAG INTACT. AWAITING HD TODAY. TPN @ 70ML/HR HOLDING GTF PT UNABLE TOLERATING RESIDUAL 150 ML/HR PER DIRECTOR OF OPERATIONS HOME HEALTH. IV ALEXSANDRA MIDLINE , L TLC TPN RUNNING @ 70 ML/HR, RFA AV SHUNT FOR HD. WILL CONTINUE TO MONITOR CLOSELY. ALL SAFETY MEASURES IN PLACE.
[2017-01-10] MEDS: Z GUARD REMEDY 2 OZ OINT TP SCH (08:17)
[2017-01-10] MEDS: HYDROGEL DRESSING 90 GM TUBE TP SCH (08:17)
[2017-01-10] MEDS: PANTOPRAZOLE 40 MG VIAL IV SCH ×2 (09:01→21:12)
[2017-01-10 10:11] LABS: CALCIUM, SERUM 8.6 mg/dL (8.5-10.1); CREATININE 4.3 mg/dL (0.6-1.3); POTASSIUM 4.4 mmol/L (3.5-5.1)
[2017-01-10] MEDS ORDERED: TPN BAG #19 IV PRN ×4 (13:00)
--- NOTE | 2017-01-10 19:30 | NUR ---
PAINT PREP TECHNICIAN INITIAL NOTES RECEIVED PATIENT OBTUNDED, OPENS EYES, NON-VERBAL, VENT DEPENDENT. NO S/S OF PAIN OR DISCOMFORT. RESPIRATIONS EVEN AND UNLABORED, WITH VENT SETTINGS AC 12, TV 500, FIO2 40%, PEEP 5. ON TELE MONITOR SR WITH BBB 76. SKIN WARM AND DRY TO TOUCH. WITH GTF AT 30ML/HR, NOTED WITH RESIDUAL 120. WILL HOLD AT THIS TIME. WITH TPN # 18 AT 40ML/HR. PER REPORT ADJUST NEEDED, FOR TOTAL TO BE 70ML/HR. WITH RFA AV SHUNT, PRESSURE DRESSING IN PLACE, NO BLEEDING NOTED. ISOLATION PRECAUTIONS OBSERVED. HOB ELEVATED. SIDE RAILS UP AND LOCKED. BED KEPT AT LOWEST POSITION. WILL CONTINUE TO MONITOR.
--- NOTE | 2017-01-10 19:53 | NUR ---
RN CLOSING NOTE REPORT GIVEN TO [facility] PM SHIFT FOR SOURAV. VENT SETTING SHILEY #8, AC 12, TV 500, FI02 40%, PEEP 5. PT OBTUNDED. TELE SR. COLOSTOMY BAG INTACT. TPN @ 40ML/HR GTF NOVASOURCE @ 30ML/HR. IV ALEXSANDRA MIDLINE , L TLC TPN RUNNING @ 40 ML/HR, RFA AV SHUNT FOR HD. ALL ORDRS CARRIED OUT. ALL SAFETY MEASURES IN PLACE.
[2017-01-10] MEDS: INSULIN DETEMIR 100 UNIT/ML CARTRIDGE SQ SCH (21:16)
--- NOTE | 2017-01-10 22:00 | NUR ---
DROP MAN NOTES INCREASED GTF RATE TO 40ML/HR. WILL CONTINUE TO MONITOR.
--- NOTE | 2017-01-10 23:00 | NUR ---
MANAGER BUSINESS INFORMATION NOTES GTF AT 40ML/HR, NO RESIDUAL NOTED. WILL CONTINUE TO MONITOR.
[2017-01-10] MEDS: GENTAMICIN 80 MG in IV D5W 50 ML IV PRN (23:34)
[2017-01-11] VITALS: BP 123/62
[2017-01-11 04:00] VITALS: BP 144/68
[2017-01-11] MEDS: METOCLOPRAMIDE HCL 10 MG/2 ML VIAL IV SCH ×3 (05:05→17:50)
[2017-01-11] MEDS: PIPERACILLIN /TAZOBACTAM 2.25 G in IV D5W 50 ML IV SCH ×3 (05:05→21:12)
[2017-01-11] MEDS: INSULIN REGULAR, HUMAN 100 UNIT/ML 3 ML VIAL SQ PRN ×3 (05:07→17:58)
[2017-01-11] MEDS: BLOOD SUGAR DIAGNOSTIC 1 EACH STRIP IN SCH ×3 (05:08→17:50)
[2017-01-11] MEDS: RENAL NOVASOURCE 1,000 ML BOTTLE GT PRN (05:30)
[2017-01-11 07:08] LABS: CALCIUM, SERUM 8.8 mg/dL (8.5-10.1); CREATININE 3.6 mg/dL (0.6-1.3); MAGNESIUM 1.8 mg/dL (1.8-2.4); PHOSPHORUS 3.5 mg/dL (2.5-4.9); POTASSIUM 4.6 mmol/L (3.5-5.1)
--- NOTE | 2017-01-11 07:15 | NUR ---
GEOGRAPHIC INFORMATION SYSTEMS MANAGER NOTES RECEIVED PATIENT IN BED, EYES OPEN, OBTUNDED. ON TELE MONITOR. APPEARS COMFORTABLE IN BED, ON VENT. LEFT IJ PATENT AND INTACT, ON TPN INFUSING AT 40ML/HR. PRESENCE OF GTUBE, NOVASOURCE RENAL INFUSING AT 40ML/HR, MAINTAIN HOB ELEVATED. ALEXSANDRA MID LINE PATENT AND INTACT, FLUSHES WELL. WILL CONT TO MONITOR.
--- NOTE | 2017-01-11 07:42 | NUR ---
MOTORCYCLE MECHANIC CLOSING NOTES NO SIGNIFICANT CHANGES OVERNIGHT. NO RESPIRATORY DISTRESS NOTED. TOLERATED VENT SETTINGS. TOLERATING GTF AT 40ML/HR. TPN # 19 AT 40ML/HR. KEPT CLEAN AND DRY. TURNED AND REPOSITIONED Q2 AND PRN. ALL WOUND TX DONE ORDERED. HOB ELEVATED, SIDE RAILS UP AND LOCKED. BED KEPT AT LOWEST POSITION. CONTINUITY OF CARE ENDORSED TO AM NURSE.
[2017-01-11 08:00] VITALS: BP 113/43
[2017-01-11] MEDS: PANTOPRAZOLE 40 MG VIAL IV SCH ×2 (09:58→21:12)
[2017-01-11] MEDS: Z GUARD REMEDY 2 OZ OINT TP SCH (10:01)
[2017-01-11] MEDS: HYDROGEL DRESSING 90 GM TUBE TP SCH (10:01)
[2017-01-11 12:00] VITALS: BP 151/93
--- NOTE | 2017-01-11 12:30 | NUR ---
GTUBE FEEDING RESIDUAL 5 ML. NO EPISODE OF VOMITING. INCREASED RATE OF GTUBE FEEDING NOVASOURCE RENAL TO 45ML/HR (GOAL), MAINTAIN HOB ELEVATED. WILL CONT TO MONITOR. PER [facility] TO TAPER TPN RATE TO HALF THEN STOP TPN IF PATIENT COMPLETELY TOLERATING FEEDING.
[2017-01-11] MEDS ORDERED: TPN BAG #20 IV PRN ×6 (13:00)
--- NOTE | 2017-01-11 15:30 | NUR ---
RECEIVED PHONE CALL FROM [facility]. TPN RATE REMAINS 20ML/HR TO TITRATED OFF. GTUBE RESIDUAL 5ML, PATIENT TOLERATING GTUBE FEEDING INFUSING AT 45ML/HR GOAL. WILL CONT TO MONITOR GTUBE FEEDING RESIDUAL TO WEAN OFF TPN. CHARGE NURSE INFORMED.
[2017-01-11] MEDS: LEVOFLOXACIN 250 MG /D5W 50 ML 250 MG in PREMIX 1 EA IV SCH (16:23)
[2017-01-11 17:00] VITALS: BP 112/48
--- NOTE | 2017-01-11 17:07 | NUR ---
PATIENT TOLERATING GTUBE FEEDING AT RATE OF 45ML/HR, (RATE GOAL) FEEDING RESIDUAL 5ML. NO VOMITING NOTED. WEAN OFF TPN (TITRATED RATE OF 40ML/HR TO 20ML/HR DURING THE SHIFT) ORDERED. INFORMED PHARMACY SPOKE TO EMANI. CHARGE NURSE IS AWARE.
--- NOTE | 2017-01-11 18:49 | NUR ---
SOFT DRINK POWDER MIXER CLOSING NOTES PATIENT IN BED, NOT IN DISTRESS. VENT SETTINGS REMAINS THE SAME, ON TELE MONITOR SINUS RHYTHM WITH PVC HR 92. BLOOD SUGAR MONITORED. TUBE FEEDING NOVASOURCE AT 45ML/HR, TOLERATING WELL WITH MINIMAL GASTRIC RESIDUAL (5ML). ON ANTIBIOTIC WITH NO ADVERSE SIDE EFFECT, AFEBRILE, NO DIARRHEA. COLOSTOMY BAG CHANGED. HD ON 01/12/[address] NASH. WILL ENDORSE TO MECHANICAL ASSEMBLY RN FOR CONTINUITY OF CARE.
--- NOTE | 2017-01-11 19:30 | NUR ---
APPLIED RESEARCH DIRECTOR INITIAL NOTES RECEIVED PATIENT OBTUNDED, OPENS EYES, NON-VERBAL, VENT DEPENDENT. NO S/S OF PAIN OR DISCOMFORT. RESPIRATIONS EVEN AND UNLABORED, WITH VENT SETTINGS AC 12, TV 500, FIO2 40%, PEEP 5. SKIN WARM AND DRY TO TOUCH. WITH GTF AT 45ML/HR, WITH MINIMAL RESIDUAL NOTED. ON TELE MONITOR SR 89. NOTED WITH GENERALIZED EDEMA. ISOLATION PRECAUTIONS OBSERVED. HOB ELEVATED. SIDE RAILS UP AND LOCKED. BED KEPT AT LOWEST POSITION. WILL CONTINUE TO MONITOR.
[2017-01-11 20:00] VITALS: BP 133/55
[2017-01-11] MEDS: INSULIN DETEMIR 100 UNIT/ML CARTRIDGE SQ SCH (21:18)
[2017-01-12] VITALS: BP 156/84
[2017-01-12] MEDS: METOCLOPRAMIDE HCL 10 MG/2 ML VIAL IV SCH ×5 (00:55→23:11)
[2017-01-12] MEDS: INSULIN REGULAR, HUMAN 100 UNIT/ML 3 ML VIAL SQ PRN ×5 (00:56→23:08)
[2017-01-12] MEDS: BLOOD SUGAR DIAGNOSTIC 1 EACH STRIP IN SCH ×5 (00:57→23:07)
[2017-01-12 04:00] VITALS: BP 152/72
[2017-01-12] MEDS: PIPERACILLIN /TAZOBACTAM 2.25 G in IV D5W 50 ML IV SCH ×3 (05:12→21:44)
[2017-01-12] MEDS: RENAL NOVASOURCE 1,000 ML BOTTLE GT PRN (05:17)
--- NOTE | 2017-01-12 07:30 | NUR ---
RN NOTES RECEIVED PATIENT IN BED OBTUNDED, ON MECH VENT WITH BREATHING NORMAL, EVEN AND UNLABORED. NO SOB NOTED. NO ACUTE DISTRESS NOTED. VENT SETTING REVIEWED AND VERIFIED, TOLERATED WELL.TELE MONITOR REVEALS SR , HR=90. ALEXSANDRA MIDLINE AND LIJ ARE PATENT AND INTACT. CONT ON GT FEED NOVASOURCE @ 45CC/HR, TOLERATED WELL. NO RESIDUAL NOTED. ASPIRATION PRECAUTION TAKEN. HOB ELEVATED. KEPT CLEAN, DRY AND COMFORTABLE. ALL NEEDS ATTENDED. CALL LIGHT WITH IN REACH. SAFETY MEASURE OBSERVED. WILL CONT TO MONITOR.
--- NOTE | 2017-01-12 07:39 | NUR ---
TEAM PSYCHOLOGIST CLOSING NOTES NO SIGNIFICANT CHANGES OVERNIGHT. NO RESPIRATORY DISTRESS NOTED. TOLERATED VENT SETTINGS. TOLERATING GTF AT 45ML/HR. KEPT CLEAN AND DRY. TURNED AND REPOSITIONED Q2 AND PRN. ALL WOUND TX DONE ORDERED. HOB ELEVATED, SIDE RAILS UP AND LOCKED. BED KEPT AT LOWEST POSITION. CONTINUITY OF CARE ENDORSED TO AM NURSE.
[2017-01-12 08:00] VITALS: BP_SYST 154; BP_SYST 181; BP_DIAS 67; BP_DIAS 68
[2017-01-12] MEDS: PANTOPRAZOLE 40 MG VIAL IV SCH ×2 (09:04→21:44)
[2017-01-12] MEDS: HYDROGEL DRESSING 90 GM TUBE TP SCH (09:25)
[2017-01-12] MEDS: Z GUARD REMEDY 2 OZ OINT TP SCH (09:25)
[2017-01-12 11:37] LABS: CALCIUM, SERUM 9.1 mg/dL (8.5-10.1); CREATININE 3.4 mg/dL (0.6-1.3); GENTAMICIN,TROUGH 1.4 ug/ml (0.2-2.0); MAGNESIUM 1.9 mg/dL (1.8-2.4); PHOSPHORUS 2.8 mg/dL (2.5-4.9); POTASSIUM 4.2 mmol/L (3.5-5.1)
[2017-01-12 12:00] VITALS: BP 153/75
[2017-01-12 16:00] VITALS: BP 153/62
[2017-01-12] MEDS: GENTAMICIN 80 MG in IV D5W 50 ML IV PRN (17:49)
--- NOTE | 2017-01-12 19:30 | NUR ---
RN NOTES RECEIVED PATIENT IN BED, OBTUNDED AT BASELINE, ON MECHANICAL VENT AT PRESCRIBED SETTINGS, WITH BREATHING EVEN AND UNLABORED. NO SOB NOTED. NO ACUTE DISTRESS NOTED. VENT SETTING REVIEWED AND VERIFIED, TOLERATED WELL. TELEMETRY MONITORING REVEALS SINUS TACHYCARDIA, HR = 103 AT THIS TIME. ALEXSANDRA MIDLINE AND LIJ ARE PATENT AND INTACT. CONT ON GT FEED NOVASOURCE @ 45CC/HR, TOLERATED WELL. NO RESIDUAL NOTED. ASPIRATION PRECAUTIONS AND ISOLATION PRECAUTIONS OBSERVED. HOB ELEVATED. KEPT CLEAN, DRY AND COMFORTABLE. ALL NEEDS ATTENDED. CALL LIGHT WITHIN EASY REACH. SAFETY MEASURE OBSERVED. WILL CONTINUE TO CLOSELY MONITOR.
--- NOTE | 2017-01-12 19:31 | NUR ---
RN NOTES PATIENT ENDORSED TO NEXT SHIFT IN STABLE CONDITION FOR CONTINUITY OF CARE.
[2017-01-12 20:00] VITALS: BP 110/48
[2017-01-12] MEDS: INSULIN DETEMIR 100 UNIT/ML CARTRIDGE SQ SCH (23:07)
[2017-01-13] VITALS: BP 149/62
[2017-01-13 04:00] VITALS: BP 133/33
[2017-01-13] MEDS: METOCLOPRAMIDE HCL 10 MG/2 ML VIAL IV SCH (05:32)
[2017-01-13] MEDS: PIPERACILLIN /TAZOBACTAM 2.25 G in IV D5W 50 ML IV SCH (05:32)
[2017-01-13] MEDS: BLOOD SUGAR DIAGNOSTIC 1 EACH STRIP IN SCH (05:35)
[2017-01-13] MEDS: RENAL NOVASOURCE 1,000 ML BOTTLE GT PRN (05:39)
[2017-01-13] MEDS: INSULIN REGULAR, HUMAN 100 UNIT/ML 3 ML VIAL SQ PRN (05:43)
[2017-01-13 06:58] LABS: CREATININE 3.7 mg/dL (0.6-1.3); MAGNESIUM 1.8 mg/dL (1.8-2.4); PHOSPHORUS 2.8 mg/dL (2.5-4.9); POTASSIUM 4.1 mmol/L (3.5-5.1)
--- NOTE | 2017-01-13 07:00 | NUR ---
RN CLOSING NOTES PATIENT SLEEPING IN BED, NO ACUTE CHANGES THROUGHOUT SHIFT. PATIENT ENDORSED TO THE AM SHIFT NURSE FOR CONTINUITY OF CARE
--- NOTE | 2017-01-13 07:19 | NUR ---
RT PT RECEIVED TRACHED ON THE VENT WITH NOTED SETTINGS. PT IS AWAKE BUT DOES NOT FOLLOW COMMANDS. VENT ALARMS ARE SET AND AUDIBLE WITH BVY BY BEDSIDE. BONSAI TENDER CUFF PRESSURE NOTED. VENT IS PLUGGED INTO RED OUTLET. SX MODERATE WHITE/CLEAR THICK SECRETIONS. NO RESPIRATORY DISTRESS NOTED AT THIS TIME, WILL CONTINUE TO MONITOR. Addendum: 01/13/17 at 0722 by EDU CIFUENTES RT Amended: Links added.
[2017-01-13 08:00] VITALS: BP 136/54
[2017-01-13] MEDS: Z GUARD REMEDY 2 OZ OINT TP SCH (09:32)
[2017-01-13] MEDS: PANTOPRAZOLE 40 MG VIAL IV SCH (09:32)
[2017-01-13] MEDS: HYDROGEL DRESSING 90 GM TUBE TP SCH (09:33)
--- NOTE | 2017-01-13 11:00 | NUR ---
discharge note transferred patient to [facility] safely. breathing even and unlabored with mech vent. all wound care done and photos placed in chart. all paper work and medication list transferred with patient. report handed off to Johanna MARINO supervisor remelt. Patient had no signs of active bleeding, GT residuals color of tube feeding approx 90ml. Patient transferred with midline and central line IVs, RN said ok to transfer. colostomy bag intact, no leaking. provided full bed bath.
[2017-01-13] MEDS ORDERED: RXGEN XX (11:24)
[2017-01-13] MEDS ORDERED: INSU100I19 SQ (11:24)
[2017-01-13] MEDS ORDERED: METO5VIA6 IV (11:24)
[2017-01-13] MEDS ORDERED: Hydrogel Dressing TP (11:24)
[2017-01-13] MEDS ORDERED: ALLA266C2 TP (11:24)
[2017-01-13] MEDS ORDERED: Renal Novasource GT (11:24)
== END 2017-01-13 11:20 | DRG 220 ==
LOC: ER 16:48 → ICU 18:39 → TELE-TD 12-31 16:36 → TELE1 01-01 11:34
PROVIDERS: ADMIT Internal Medicine Nephrology; ATTEND Internal Medicine Nephrology
PROC: 30233N1 Transfusion of Nonautologous Red Blood Cells into Peripheral Vein, Percutaneous Approach (ICD-10-PCS; principal; 2016-12-26 18:05)
PROC: 5A1D60Z (ICD-10-PCS; 2016-12-27)
PROC: 0DC68ZZ Extirpation of Matter from Stomach, Via Natural or Artificial Opening Endoscopic (ICD-10-PCS; 2016-12-28)
PROC: 0W3P8ZZ Control Bleeding in Gastrointestinal Tract, Via Natural or Artificial Opening Endoscopic (ICD-10-PCS; 2016-12-29)
PROC: B544ZZA Ultrasonography of Left Jugular Veins, Guidance (ICD-10-PCS; 2016-12-30)
PROC: 05H633Z Insertion of Infusion Device into Left Subclavian Vein, Percutaneous Approach (ICD-10-PCS; 2016-12-31)
PROC: 0W3F0ZZ Control Bleeding in Abdominal Wall, Open Approach (ICD-10-PCS; 2017-01-05)
PROC: 3E0 Administration, Physiological Systems and Anatomical Regions, Introduction (ICD-10-PCS; 2017-01-05)
PROC: 05HN33Z Insertion of Infusion Device into Left Internal Jugular Vein, Percutaneous Approach (ICD-10-PCS; 2017-01-06)
PROC: 0WBF0ZZ Excision of Abdominal Wall, Open Approach (ICD-10-PCS; 2017-01-06)
PROC: 0WQF0ZZ Repair Abdominal Wall, Open Approach (ICD-10-PCS; 2017-01-06)
PROC: 0DH63UZ Insertion of Feeding Device into Stomach, Percutaneous Approach (ICD-10-PCS; 2017-01-06)
PROC: 0DB60ZZ Excision of Stomach, Open Approach (ICD-10-PCS; 2017-01-06)
DX: K94.22 Gastrostomy infection (principal); R65.21 Severe sepsis with septic shock; Z99.11 Dependence on respirator [ventilator] status; A41.9 Sepsis, unspecified organism; K31.6 Fistula of stomach and duodenum; G93.1 Anoxic brain damage, not elsewhere classified; K80.20 Calculus of gallbladder without cholecystitis without obstruction; J18.9 Pneumonia, unspecified organism; L89.154 Pressure ulcer of sacral region, stage 4; J96.10 Chronic respiratory failure, unspecified whether with hypoxia or hypercapnia; I12.0 Hypertensive chronic kidney disease with stage 5 chronic kidney disease or end stage renal disease; Z99.2 Dependence on renal dialysis; E11.22 Type 2 diabetes mellitus with diabetic chronic kidney disease; L03.311 Cellulitis of abdominal wall; R13.10 Dysphagia, unspecified; D63.8 Anemia in other chronic diseases classified elsewhere; E11.69 Type 2 diabetes mellitus with other specified complication; I73.9 Peripheral vascular disease, unspecified; K43.2 Incisional hernia without obstruction or gangrene; K59.00 Constipation, unspecified; M86.60 Other chronic osteomyelitis, unspecified site; Z79.899 Other long term (current) drug therapy; Z87.440 Personal history of urinary (tract) infections; Z89.512 Acquired absence of left leg below knee; Z74.01 Bed confinement status; E46 Unspecified protein-calorie malnutrition
CPT/HCPCS: 31720; 36415; 43246; 71010-TC; 80048-TC; 80053-TC; 80076-TC; 80170-TC; 80202-TC; 82962-TC; 83605-TC; 83735-TC; 84100-TC; 84478-TC; 84484-TC; 85025-TC; 85027-TC; 85610-TC; 85730-TC; 86850-TC; 86921-TC; 87040-TC; 87070-TC; 87081-TC; 87186-TC; 88305-TC; 88307-TC; 90935-TC; 94002-TC; 94003-TC; 94762-TC; A4216; A4606; A6209; A6248; A6253; A6402; A6403; A7526; C1751; C1769; C9113; J0885; J1450; J1580; J1815; J1956; J2185; J2250; J2543; J2597; J2765; J3370; J3475; J3480; J3490; J7030; J7040; J7042; J7050; J7060; P9016-BL; Z7610

== ENCOUNTER 2017-01-13 10:19 | Inpatient (IN) | payer MEDICAID ==
[~2017-01-13] VITALS: Ht 157.5 cm; Wt 71.2 kg
[~2017-01-13 10:19] MED LIST changes: +AMIK250V8 IV; +BLOO-668 IN; +CADE40GE2 TP; +CEFT2VIA5 IV; -DEXT1DRO3 EACHEYE; +DEXT50DI8 IV; +HYDR1SOL TP; -LINE600T GT; +METO50TA16 GT; -METO50TA3 GT; +METO5VIA6 IV; -MUPI22OI7; +NEOM15OI3 TP; +NYST60PO TP; +POVI28.4 TP; -SODI473S8 TOP; +SODI480S2 TOP; +VANC1VIA2 IV
[2017-01-13] MEDS ORDERED: ALLA266C2 TP (11:24)
[2017-01-13] MEDS ORDERED: Hydrogel Dressing TP (11:24)
[2017-01-13] MEDS ORDERED: METO5VIA6 IV (11:24)
[2017-01-13] MEDS ORDERED: RXGEN XX (11:24)
[2017-01-13] MEDS ORDERED: Renal Novasource GT (11:24)
[2017-01-13] MEDS ORDERED: INSU100I19 SQ (11:24)
--- NOTE | 2017-01-13 11:25 | NUR ---
Admitted a 46-year-old female pt from [facility] with diagnoses of chronic respiratory failure, ventilator dependent, dysphagia with GT, ESRD on hemodialysis, PVS, chronic anoxic encephalopathy, DM type 2 with CKD, hypoalbuminemia, PVD. Pt has a history of GI bleeding on 12/26/16 and was transferred to acute hospital. According to nurse's report from [facility], pt's PEG was replaced on 01/06/17, hemodialysis was done yesterday with 1L output, Hgb was 7.1 without blood transfusion. Pt on contact isolation for VRE wound and is on IV ATB of Gentamicin, Levofloxacin, and Zosyn for one more week. Started GT feeding Novasource renal at 45 mL/hr as ordered. HOB elevated as aspiration precaution. Pt on mechanical ventilator with setting of AC 12 VT 500 FiO2 40% Peep 5. Pt has trach tube Shiley # 8. Pt's eyes were open but not tracking, pt nonverbal. Placed pt on contact isolation for VRE wound. Made pt clean and comfortable in bed. Call light within easy reach. Verified orders with Dr. Wall.
--- NOTE | 2017-01-13 12:14 | NUR ---
PT REC'D ON TRACH TUBE SHILEY 8 ON VENT SETTINGS CHARTED. PT IS COMFORTABLE AND NO RESP DISTRESS NOTED AT THIS TIME. MONITORING AND EVALUATION ADVISOR CUFF PRESSURE NOTED. ALARMS ARE SET AND AUDIBLE PER POLICY. VENT PLUGGED INTO RED OUTLET. WILL CONTINUE TO MONITOR Addendum: 01/13/17 at 1226 by LOUISA CRUZ RT Amended: Links added.
[2017-01-13] MEDS ORDERED: RENAL NOVASOURCE 1,000 ML BOTTLE GT PRN (14:00)
[2017-01-13] MEDS ORDERED: BLOOD SUGAR DIAGNOSTIC 1 EACH STRIP IN SCH (14:17)
[2017-01-13] MEDS ORDERED: ALBUTEROL FS 2.5 MG/3 ML VIAL.NEB NEB SCH (14:17)
[2017-01-13] MEDS ORDERED: IPRATROPIUM NEB FS 0.5 MG/2.5 ML AMPUL.NEB NEB SCH (14:17)
[2017-01-13] MEDS ORDERED: CALCITRIOL ORAL SOLUTION 1 MCG/ML GT SCH (14:17)
[2017-01-13] MEDS ORDERED: LACTOBACILLUS RHAMNOSUS GG 1 EACH CAP.SPRINK GT SCH (14:17)
[2017-01-13] MEDS ORDERED: HYDROGEL DRESSING 90 GM TUBE TP SCH (14:17)
[2017-01-13] MEDS ORDERED: HYDROGEL DRESSING 90 GM TUBE TP PRN (14:17)
[2017-01-13] MEDS ORDERED: ASCORBIC ACID 500 MG TABLET GT SCH (14:17)
[2017-01-13] MEDS ORDERED: HEPARIN SODIUM, PORCINE 5000 UNITS/1 ML VIAL SQ SCH (14:17)
[2017-01-13] MEDS ORDERED: METOCLOPRAMIDE HCL 10 MG/2 ML VIAL IV SCH (14:17)
[2017-01-13] MEDS ORDERED: POLYVINYL ALCOHOL 15 ML BOTTLE EACHEYE PRN (14:17)
[2017-01-13] MEDS ORDERED: HYDROCODONE/APAP 5/325MG 1 EACH TABLET GT SCH (14:17)
[2017-01-13] MEDS ORDERED: hydrALAZINE HCL 25 MG TABLET GT SCH ×2 (14:17)
[2017-01-13] MEDS ORDERED: DEXTROSE 50%-WATER 50 ML DISP.SYRIN IV PRN (14:17)
--- NOTE | 2017-01-13 15:08 | NUR ---
Called the resident's boyfriend John Woodall ([phone]) to obtain verbal consents for admission paperwork. He did not answer and SW left him a message with call back details. Also informed him that the resident was transferred back to subacute and is in room 274-1. Psychosocial assessment and SW Evaluations/Summary/Assessment was completed. SW will attempt to contact the resident's boyfriend again at a later time.
--- NOTE | 2017-01-13 15:30 | NUR ---
Called the resident's boyfriend again. He stated that he would like to make the resident full code. Charge nurse confirmed this on the telephone as well. He was also able to provide verbal consents for admission paperwork and stated he will come on Thursday to sign the paperwork. SW to endorse paperwork for signature. Boyfriend visits mainly on weekends when the SW is not here.
[2017-01-13] MEDS ORDERED: HYDROCODONE/APAP 5/325MG 1 EACH TABLET PO PRN (16:30)
--- NOTE | 2017-01-13 16:30 | NUR ---
Paged Dr. Wall to notify him that Levemir is not covered by the insurance and pharmacy is recommending Lantus insulin. Protonix is also not covered and pharmacy is recommending Dexilant. Left message with Shanthi.
[2017-01-13] MEDS: LACTOBACILLUS RHAMNOSUS GG 1 EACH CAP.SPRINK GT SCH (17:00)
[2017-01-13] MEDS: hydrALAZINE HCL 25 MG TABLET GT SCH (17:00)
[2017-01-13] MEDS: LEVOFLOXACIN 250 MG /D5W 50 ML 250 MG in PREMIX 1 EA IV SCH (17:55)
--- NOTE | 2017-01-13 18:00 | NUR ---
Paged Dr. Wall again. Left message with Di.
--- NOTE | 2017-01-13 18:12 | NUR ---
Dr. Wall called. Received order to change Levemir to Lantus insulin 10 units subcutaneously at bedtime. Reminded him that pt was on Lantus insulin 44 units q 12 hours prior to transfer to acute hospital. Dr. Wall said to start pt on Lantus insulin 10 units since pt's blood sugars in the hospital was not high. Notified him that Protonix is not covered, and pharmacy is recommending Dexilant. He ordered to give Nexium 40 mg GT daily.
[2017-01-13] MEDS: BLOOD SUGAR DIAGNOSTIC 1 EACH STRIP IN SCH (18:31)
[2017-01-13] MEDS: INSULIN REGULAR, HUMAN 100 UNIT/ML 3 ML VIAL SQ PRN (18:33)
[2017-01-13] MEDS: RENAL NOVASOURCE 1,000 ML BOTTLE GT PRN (18:35)
[2017-01-13] MEDS: IPRATROPIUM NEB FS 0.5 MG/2.5 ML AMPUL.NEB NEB SCH (19:44)
[2017-01-13] MEDS: ALBUTEROL FS 2.5 MG/3 ML VIAL.NEB NEB SCH (19:44)
[2017-01-13 20:04] VITALS: BP 179/88
[2017-01-13] MEDS: PIPERACILLIN /TAZOBACTAM 2.25 G in IV D5W 50 ML IV SCH (21:00)
[2017-01-13] MEDS ORDERED: PANTOPRAZOLE 40 MG/PACK PACK GT SCH (21:00)
[2017-01-13] MEDS: HYDROCODONE/APAP 5/325MG 1 EACH TABLET GT SCH (21:09)
[2017-01-13] MEDS: METOPROLOL TARTRATE 50 MG TABLET GT SCH (21:12)
[2017-01-13] MEDS: METOCLOPRAMIDE HCL 10 MG/2 ML VIAL IV SCH (21:13)
[2017-01-13] MEDS: HEPARIN SODIUM, PORCINE 5000 UNITS/1 ML VIAL SQ SCH (21:13)
[2017-01-13] MEDS: NEOMY SULF/BACITRAC ZN/POLY 15 GM TUBE TP SCH ×5 (21:14→21:15)
[2017-01-13] MEDS: DAKINS HALF STRENGTH (0.25%) 480 ML BOTTLE TOP SCH (21:14)
[2017-01-13] MEDS: NYSTATIN TOP POWDER 15 GM BOTTLE TP SCH ×4 (21:14)
[2017-01-13] MEDS: CADEXOMER IODINE 40 GM TUBE TP SCH (21:14)
[2017-01-13] MEDS: INSULIN GLARGINE, 100 UNIT/ML CARTRIDGE SQ SCH (21:16)
[2017-01-13] MEDS ORDERED: INSULIN DETEMIR 100 UNIT/ML CARTRIDGE SQ SCH (22:00)
[2017-01-14] MEDS: BLOOD SUGAR DIAGNOSTIC 1 EACH STRIP IN SCH ×4 (00:10→17:30)
[2017-01-14] MEDS: INSULIN REGULAR, HUMAN 100 UNIT/ML 3 ML VIAL SQ PRN ×4 (00:11→17:32)
[2017-01-14 01:22] VITALS: BP 181/81
[2017-01-14] MEDS: IPRATROPIUM NEB FS 0.5 MG/2.5 ML AMPUL.NEB NEB SCH ×4 (01:50→20:02)
[2017-01-14] MEDS: ALBUTEROL FS 2.5 MG/3 ML VIAL.NEB NEB SCH ×4 (01:50→20:02)
[2017-01-14] MEDS: PIPERACILLIN /TAZOBACTAM 2.25 G in IV D5W 50 ML IV SCH ×3 (05:00→21:02)
[2017-01-14 05:09] VITALS: BP 179/85
[2017-01-14] MEDS: METOCLOPRAMIDE HCL 10 MG/2 ML VIAL IV SCH ×2 (05:25→13:48)
[2017-01-14 08:00] VITALS: BP 178/81
[2017-01-14] MEDS: LACTOBACILLUS RHAMNOSUS GG 1 EACH CAP.SPRINK GT SCH ×2 (09:45→16:48)
[2017-01-14] MEDS: ESOMEPRAZOLE MAGNESIUM 40 MG GT SCH (09:45)
[2017-01-14] MEDS: CALCITRIOL ORAL SOLUTION 1 MCG/ML GT SCH (09:45)
[2017-01-14] MEDS: METOPROLOL TARTRATE 50 MG TABLET GT SCH ×2 (09:45→22:00)
[2017-01-14] MEDS: HYDROCODONE/APAP 5/325MG 1 EACH TABLET GT SCH ×2 (09:45→21:58)
[2017-01-14] MEDS: hydrALAZINE HCL 25 MG TABLET GT SCH ×2 (09:45→16:48)
[2017-01-14] MEDS: ASCORBIC ACID 500 MG TABLET GT SCH (09:46)
[2017-01-14] MEDS: HEPARIN SODIUM, PORCINE 5000 UNITS/1 ML VIAL SQ SCH ×2 (09:46→21:59)
[2017-01-14] MEDS: VIT B CMPLX 3/FA/VIT C/BIOTIN 1 TAB TABLET PO SCH (09:46)
[2017-01-14] MEDS: DAKINS HALF STRENGTH (0.25%) 480 ML BOTTLE TOP SCH ×2 (09:46→21:59)
[2017-01-14] MEDS: CADEXOMER IODINE 40 GM TUBE TP SCH ×2 (09:48→21:59)
[2017-01-14] MEDS: NYSTATIN TOP POWDER 15 GM BOTTLE TP SCH ×8 (09:48→21:59)
[2017-01-14] MEDS: NEOMY SULF/BACITRAC ZN/POLY 15 GM TUBE TP SCH ×10 (09:48→22:00)
[2017-01-14] MEDS: RENAL NOVASOURCE 1,000 ML BOTTLE GT PRN (16:00)
[2017-01-14 20:00] VITALS: BP 146/69
[2017-01-14] MEDS: INSULIN GLARGINE, 100 UNIT/ML CARTRIDGE SQ SCH (22:01)
[2017-01-15 00:10] VITALS: BP 169/75
[2017-01-15] MEDS: METOCLOPRAMIDE HCL 10 MG/10 ML UDC PO SCH ×2 (00:18→05:42)
[2017-01-15] MEDS: BLOOD SUGAR DIAGNOSTIC 1 EACH STRIP IN SCH ×5 (00:18→23:38)
[2017-01-15] MEDS: INSULIN REGULAR, HUMAN 100 UNIT/ML 3 ML VIAL SQ PRN ×3 (00:19→23:39)
[2017-01-15] MEDS: CLONIDINE HCL 0.2 MG TABLET GT PRN ×2 (00:20→05:43)
[2017-01-15] MEDS: ALBUTEROL FS 2.5 MG/3 ML VIAL.NEB NEB SCH ×4 (00:45→19:37)
[2017-01-15] MEDS: IPRATROPIUM NEB FS 0.5 MG/2.5 ML AMPUL.NEB NEB SCH ×4 (00:45→19:37)
[2017-01-15] MEDS: PIPERACILLIN /TAZOBACTAM 2.25 G in IV D5W 50 ML IV SCH ×3 (05:10→21:47)
[2017-01-15 06:00] VITALS: BP 169/76
[2017-01-15 07:42] VITALS: BP 124/63
[2017-01-15] MEDS: HYDROCODONE/APAP 5/325MG 1 EACH TABLET GT SCH ×2 (08:11→21:22)
[2017-01-15] MEDS: VIT B CMPLX 3/FA/VIT C/BIOTIN 1 TAB TABLET PO SCH (08:11)
[2017-01-15] MEDS: ASCORBIC ACID 500 MG TABLET GT SCH (08:11)
[2017-01-15] MEDS: ESOMEPRAZOLE MAGNESIUM 40 MG GT SCH (08:11)
[2017-01-15] MEDS: CALCITRIOL ORAL SOLUTION 1 MCG/ML GT SCH (08:11)
[2017-01-15] MEDS: LACTOBACILLUS RHAMNOSUS GG 1 EACH CAP.SPRINK GT SCH ×2 (08:11→17:42)
[2017-01-15] MEDS: HEPARIN SODIUM, PORCINE 5000 UNITS/1 ML VIAL SQ SCH ×2 (08:12→21:23)
--- NOTE | 2017-01-15 08:30 | NUR ---
Notified Dr. Rojas that wound nurse saw pt. Requested him to see pt's right foot with necrotic areas. Dr. Rojas said to continue treatment of Iodosorb.
--- NOTE | 2017-01-15 08:30 | NUR ---
Received order from Dr. Errol Castro to RI triple antibiotic ointment on pt's mid abdominal surgical site.
--- NOTE | 2017-01-15 08:32 | NUR ---
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orcas. IN AGREEMENT WITH PLAN OF CARE.
[2017-01-15] MEDS: DAKINS HALF STRENGTH (0.25%) 480 ML BOTTLE TOP SCH ×2 (09:10→21:23)
[2017-01-15] MEDS: CADEXOMER IODINE 40 GM TUBE TP SCH ×2 (09:11→21:23)
[2017-01-15] MEDS: NYSTATIN TOP POWDER 15 GM BOTTLE TP SCH ×8 (09:11→21:23)
[2017-01-15] MEDS: NEOMY SULF/BACITRAC ZN/POLY 15 GM TUBE TP SCH ×8 (09:12→21:24)
[2017-01-15] MEDS: METOCLOPRAMIDE HCL 10 MG/10 ML UDC GT SCH ×3 (12:00→23:38)
--- NOTE | 2017-01-15 16:20 | NUR ---
Pt came back from [facility]. Pt in stable condition. Addendum: 01/15/17 at 1750 by GEORGE CLEARY RN Pt was not in the unit at 1300 and 1400 for IV ATB administration.
[2017-01-15] MEDS: GENTAMICIN 80 MG in IV D5W 50 ML IV SCH (17:40)
[2017-01-15] MEDS: PROSOURCE / PROSTAT (PYXIS) 30 ML UDC GT SCH (17:42)
[2017-01-15] MEDS: hydrALAZINE HCL 25 MG TABLET GT SCH (17:42)
[2017-01-15] MEDS: LEVOFLOXACIN 250 MG /D5W 50 ML 250 MG in PREMIX 1 EA IV SCH (18:20)
[2017-01-15 20:00] VITALS: BP 129/72
[2017-01-15] MEDS: Z GUARD REMEDY 4 OZ OINT TP SCH (21:24)
[2017-01-15] MEDS: Z GUARD REMEDY 2 OZ OINT TP SCH (21:24)
[2017-01-15] MEDS: METOPROLOL TARTRATE 50 MG TABLET GT SCH (21:25)
[2017-01-15] MEDS: INSULIN GLARGINE, 100 UNIT/ML CARTRIDGE SQ SCH (21:28)
[2017-01-16] MEDS: ALBUTEROL FS 2.5 MG/3 ML VIAL.NEB NEB SCH ×4 (00:50→19:26)
[2017-01-16] MEDS: IPRATROPIUM NEB FS 0.5 MG/2.5 ML AMPUL.NEB NEB SCH ×4 (00:50→19:26)
[2017-01-16] MEDS: BLOOD SUGAR DIAGNOSTIC 1 EACH STRIP IN SCH ×3 (05:07→18:34)
[2017-01-16] MEDS: INSULIN REGULAR, HUMAN 100 UNIT/ML 3 ML VIAL SQ PRN ×3 (05:08→18:37)
[2017-01-16] MEDS: CLONIDINE HCL 0.2 MG TABLET GT PRN ×2 (05:09→13:21)
[2017-01-16] MEDS: PIPERACILLIN /TAZOBACTAM 2.25 G in IV D5W 50 ML IV SCH ×3 (05:10→21:36)
[2017-01-16] MEDS: METOCLOPRAMIDE HCL 10 MG/10 ML UDC GT SCH ×3 (05:16→18:34)
[2017-01-16] MEDS: RENAL NOVASOURCE 1,000 ML BOTTLE GT PRN (05:17)
[2017-01-16 07:50] VITALS: BP 153/75
[2017-01-16] MEDS: ESOMEPRAZOLE MAGNESIUM 40 MG GT SCH (09:15)
[2017-01-16] MEDS: CALCITRIOL ORAL SOLUTION 1 MCG/ML GT SCH (09:15)
[2017-01-16] MEDS: METOPROLOL TARTRATE 50 MG TABLET GT SCH ×2 (09:15→21:39)
[2017-01-16] MEDS: LACTOBACILLUS RHAMNOSUS GG 1 EACH CAP.SPRINK GT SCH ×2 (09:15→17:00)
[2017-01-16] MEDS: hydrALAZINE HCL 25 MG TABLET GT SCH ×2 (09:15→17:00)
[2017-01-16] MEDS: PROSOURCE / PROSTAT (PYXIS) 30 ML UDC GT SCH ×3 (09:16→17:00)
[2017-01-16] MEDS: ASCORBIC ACID 500 MG TABLET GT SCH (09:16)
[2017-01-16] MEDS: HYDROCODONE/APAP 5/325MG 1 EACH TABLET GT SCH ×2 (09:16→21:36)
[2017-01-16] MEDS: VIT B CMPLX 3/FA/VIT C/BIOTIN 1 TAB TABLET PO SCH (09:16)
[2017-01-16] MEDS: HEPARIN SODIUM, PORCINE 5000 UNITS/1 ML VIAL SQ SCH ×2 (09:16→21:37)
[2017-01-16] MEDS: DAKINS HALF STRENGTH (0.25%) 480 ML BOTTLE TOP SCH ×2 (09:45→21:37)
[2017-01-16] MEDS: Z GUARD REMEDY 4 OZ OINT TP SCH ×2 (09:45→21:37)
[2017-01-16] MEDS: CADEXOMER IODINE 40 GM TUBE TP SCH ×4 (09:45→21:37)
[2017-01-16] MEDS: NYSTATIN TOP POWDER 15 GM BOTTLE TP SCH ×8 (09:45→21:37)
[2017-01-16] MEDS: Z GUARD REMEDY 2 OZ OINT TP SCH ×2 (09:45→21:37)
[2017-01-16] MEDS: NEOMY SULF/BACITRAC ZN/POLY 15 GM TUBE TP SCH ×6 (09:45→21:37)
[2017-01-16 12:00] VITALS: BP 163/71
[2017-01-16 18:37] VITALS: BP 171/76
[2017-01-16 19:45] VITALS: BP 176/78
[2017-01-16] MEDS: INSULIN GLARGINE, 100 UNIT/ML CARTRIDGE SQ SCH (22:00)
[2017-01-17] VITALS: BP 158/68
[2017-01-17] MEDS: IPRATROPIUM NEB FS 0.5 MG/2.5 ML AMPUL.NEB NEB SCH ×4 (01:33→19:28)
[2017-01-17] MEDS: ALBUTEROL FS 2.5 MG/3 ML VIAL.NEB NEB SCH ×4 (01:33→19:28)
[2017-01-17] MEDS: INSULIN REGULAR, HUMAN 100 UNIT/ML 3 ML VIAL SQ PRN ×3 (01:53→18:40)
[2017-01-17] MEDS: PIPERACILLIN /TAZOBACTAM 2.25 G in IV D5W 50 ML IV SCH ×2 (05:08→15:35)
[2017-01-17] MEDS: METOCLOPRAMIDE HCL 10 MG/10 ML UDC GT SCH ×4 (05:29→18:42)
[2017-01-17] MEDS: BLOOD SUGAR DIAGNOSTIC 1 EACH STRIP IN SCH ×4 (05:58→18:42)
[2017-01-17 06:54] VITALS: BP 180/80
--- NOTE | 2017-01-17 07:53 | NUR ---
Received a faxed report from dialysis center showing Hbg 6.6 taken of 01/15/17 at the dialysis center. Placed a call to coordinator cardiopulmonary services doctor for Dr. Castro to report a low HGB 6.6. Spoke with Mani from answering service stated Dr. Guzmán to call back.
[2017-01-17 08:10] VITALS: BP 144/66
[2017-01-17] MEDS: ASCORBIC ACID 500 MG TABLET GT SCH (08:22)
[2017-01-17] MEDS: VIT B CMPLX 3/FA/VIT C/BIOTIN 1 TAB TABLET PO SCH (08:22)
[2017-01-17] MEDS: LACTOBACILLUS RHAMNOSUS GG 1 EACH CAP.SPRINK GT SCH ×2 (08:22→17:00)
[2017-01-17] MEDS: HYDROCODONE/APAP 5/325MG 1 EACH TABLET GT SCH ×2 (08:22→21:00)
[2017-01-17] MEDS: PROSOURCE / PROSTAT (PYXIS) 30 ML UDC GT SCH ×3 (08:22→17:00)
[2017-01-17] MEDS: ESOMEPRAZOLE MAGNESIUM 40 MG GT SCH (08:22)
[2017-01-17] MEDS: CALCITRIOL ORAL SOLUTION 1 MCG/ML GT SCH (08:22)
--- NOTE | 2017-01-17 08:41 | NUR ---
Spoke with Rose Marie from dialysis center reported patient with Hbg. of 6.6, according to Rose Marie,RN at Renal this is critically low and will need an order from the physician to proceed with dialysis with this low level. Placed a follow-up call to Dr. Castro's answering service, spoke with Cammie requested to speak with network systems consultant, She said that Dr. Guzmán should be calling. Awaiting for call back.
[2017-01-17] MEDS: HEPARIN SODIUM, PORCINE 5000 UNITS/1 ML VIAL SQ SCH ×2 (09:00→21:22)
--- NOTE | 2017-01-17 09:02 | NUR ---
Made a follow-up call, spoke with Mani from the answering service requesting to speak with pesticide control inspector, he said now it is Dr. Wall who will be calling. Awaiting for call back.
--- NOTE | 2017-01-17 09:09 | NUR ---
Spoke with Dr. Wall, plate grainer apprentice reported a low Hbg 6.6, asked whether it is OK to send the patient for dialysis, he initially said OK if patient is hemodynamically stable, however Dr. Wall said that he is in the building and will check the patient first. Awaiting for MD to assess patient.
--- NOTE | 2017-01-17 09:17 | NUR ---
Updated NED Trotter from [facility] regarding the delay in transporting patient, she said to give her an update later but they will be able to accommodate her even if she is late.
[2017-01-17] MEDS: DAKINS HALF STRENGTH (0.25%) 480 ML BOTTLE TOP SCH ×2 (09:30→21:22)
[2017-01-17] MEDS: CADEXOMER IODINE 40 GM TUBE TP SCH ×4 (09:30→21:22)
[2017-01-17] MEDS: NYSTATIN TOP POWDER 15 GM BOTTLE TP SCH ×8 (09:31→21:22)
[2017-01-17] MEDS: Z GUARD REMEDY 2 OZ OINT TP SCH ×2 (09:32→21:23)
[2017-01-17] MEDS: NEOMY SULF/BACITRAC ZN/POLY 15 GM TUBE TP SCH ×6 (09:32→21:23)
[2017-01-17] MEDS: Z GUARD REMEDY 4 OZ OINT TP SCH ×2 (09:33→21:23)
--- NOTE | 2017-01-17 10:05 | NUR ---
Placed a follow-up call to Dr. Wall if he will see and assess patient, according to , it is OK to send her to dialysis and will see patient at dialysis center. Updated Rose Marie from [facility] informing her that said it is OK to send patient to dialysis. Report given to the dialysis ambulance staff.
--- NOTE | 2017-01-17 10:50 | NUR ---
Dr. Wall came by, reported patient already at the dialysis center. According to MD he will see her at the dialysis center. Informed Dr. Wall that resident has bleeding from the wound asked if he wants to hold Heparin, he stated to call the wound team to aggressively treat the wound but it can be done on Thursday. he said that they may need to cauterized the wound to prevent bleeding but did not want to hold Heparin due to risk of clotting.
--- NOTE | 2017-01-17 15:44 | NUR ---
Resident returned back from dialysis, condition stable in no acute s/s of distress. She is connected to a vent with prescribed setting accompanied by RT. Called Dr. Wall inquiring if he wants to order blood transfusion or repeat CBC, he ordered to repeat CBC in AM. Orders noted and carried out.
[2017-01-17] MEDS: GENTAMICIN 80 MG in IV D5W 50 ML IV SCH (16:10)
[2017-01-17] MEDS: hydrALAZINE HCL 25 MG TABLET GT SCH (17:00)
[2017-01-17] MEDS: LEVOFLOXACIN 250 MG /D5W 50 ML 250 MG in PREMIX 1 EA IV SCH (17:50)
[2017-01-17] MEDS: CLONIDINE HCL 0.2 MG TABLET GT PRN (18:43)
[2017-01-17] MEDS: RENAL NOVASOURCE 1,000 ML BOTTLE GT PRN (18:43)
[2017-01-17 19:25] VITALS: BP 178/78
[2017-01-17 19:52] VITALS: BP 175/85
[2017-01-17] MEDS: INSULIN GLARGINE, 100 UNIT/ML CARTRIDGE SQ SCH (21:23)
[2017-01-17] MEDS: METOPROLOL TARTRATE 50 MG TABLET GT SCH (21:23)
[2017-01-18] VITALS: BP 165/78
[2017-01-18] MEDS: BLOOD SUGAR DIAGNOSTIC 1 EACH STRIP IN SCH ×4 (00:23→17:47)
[2017-01-18] MEDS: METOCLOPRAMIDE HCL 10 MG/10 ML UDC GT SCH ×4 (00:23→17:28)
[2017-01-18] MEDS: CLONIDINE HCL 0.2 MG TABLET GT PRN ×2 (00:25→06:32)
[2017-01-18] MEDS: INSULIN REGULAR, HUMAN 100 UNIT/ML 3 ML VIAL SQ PRN ×4 (00:28→17:47)
[2017-01-18] MEDS: IPRATROPIUM NEB FS 0.5 MG/2.5 ML AMPUL.NEB NEB SCH ×4 (00:50→19:02)
[2017-01-18] MEDS: ALBUTEROL FS 2.5 MG/3 ML VIAL.NEB NEB SCH ×4 (00:50→19:02)
[2017-01-18 06:00] VITALS: BP 170/73
[2017-01-18 07:13] LABS: BASOPHILS % (AUTO) 0.4 % (0.0-2.0); EOSINOPHILS # (AUTO) 0.3 /CMM (0.0-0.7); EOSINOPHILS % (AUTO) 3.1 % (0.0-6.0); HEMATOCRIT 23 % (33-45); HEMOGLOBIN 7.7 g/dL (11.5-14.8); LYMPHOCYTES % (AUTO) 11.6 % (20.0-44.0); MEAN CORPUSCULAR HEMOGLOBIN 31 PG (26.0-33.0); MEAN CORPUSCULAR HGB CONC 34 g/dl (31.0-36.0); MEAN CORPUSCULAR VOLUME 93 fL (82-100); MONOCYTES # (AUTO) 0.6 /CMM (0.1-1.30); MONOCYTES % (AUTO) 6.5 % (2.0-12.0); NEUTROPHILS # (AUTO) 6.8 /CMM (1.8-8.9); NEUTROPHILS % (AUTO) 78.4 % (43.0-81.0); PLATELET COUNT (AUTO) 186 /CMM (150-450); RDW COEFFICIENT OF VARIATION 15.5 (11.5-15.0); RED BLOOD CELL COUNT(AUTO) 2.44 MIL/uL (4.0-5.2); WHITE BLOOD COUNT (AUTO) 8.6 K/uL (4.3-11.0)
[2017-01-18 07:39] VITALS: BP 161/70
[2017-01-18] MEDS: ESOMEPRAZOLE MAGNESIUM 40 MG GT SCH (08:59)
[2017-01-18] MEDS: METOPROLOL TARTRATE 50 MG TABLET GT SCH ×2 (08:59→21:41)
[2017-01-18] MEDS: LACTOBACILLUS RHAMNOSUS GG 1 EACH CAP.SPRINK GT SCH ×2 (08:59→17:28)
[2017-01-18] MEDS: hydrALAZINE HCL 25 MG TABLET GT SCH ×2 (08:59→17:28)
[2017-01-18] MEDS: CALCITRIOL ORAL SOLUTION 1 MCG/ML GT SCH (08:59)
[2017-01-18] MEDS: HYDROCODONE/APAP 5/325MG 1 EACH TABLET GT SCH ×2 (09:00→21:00)
[2017-01-18] MEDS: PROSOURCE / PROSTAT (PYXIS) 30 ML UDC GT SCH ×3 (09:00→17:28)
[2017-01-18] MEDS: VIT B CMPLX 3/FA/VIT C/BIOTIN 1 TAB TABLET PO SCH (09:00)
[2017-01-18] MEDS: HEPARIN SODIUM, PORCINE 5000 UNITS/1 ML VIAL SQ SCH ×2 (09:00→21:24)
[2017-01-18] MEDS: ASCORBIC ACID 500 MG TABLET GT SCH (09:00)
[2017-01-18] MEDS: DAKINS HALF STRENGTH (0.25%) 480 ML BOTTLE TOP SCH ×2 (09:03→21:24)
[2017-01-18] MEDS: CADEXOMER IODINE 40 GM TUBE TP SCH ×4 (09:03→21:24)
[2017-01-18] MEDS: Z GUARD REMEDY 2 OZ OINT TP SCH ×2 (09:04→21:24)
[2017-01-18] MEDS: NEOMY SULF/BACITRAC ZN/POLY 15 GM TUBE TP SCH ×6 (09:04→21:24)
[2017-01-18] MEDS: Z GUARD REMEDY 4 OZ OINT TP SCH ×2 (09:04→21:25)
[2017-01-18] MEDS: NYSTATIN TOP POWDER 15 GM BOTTLE TP SCH ×8 (09:04→21:24)
[2017-01-18] MEDS: PIPERACILLIN /TAZOBACTAM 2.25 G in IV D5W 50 ML IV SCH ×2 (13:46→21:54)
[2017-01-18 14:54] VITALS: BP 148/70
[2017-01-18 18:24] VITALS: BP 157/82
--- NOTE | 2017-01-18 18:48 | NUR ---
THOMAS Sims for wound saw the mid-abdominal surgical site and gave an order for cleanse with NS apt dry apply hydrogel, Qshift x14 days and reevaluate. Orders noted and carried out.
[2017-01-18 19:29] VITALS: BP 132/58
[2017-01-18] MEDS: HYDROGEL DRESSING 90 GM TUBE TP SCH (21:24)
[2017-01-18] MEDS: INSULIN GLARGINE, 100 UNIT/ML CARTRIDGE SQ SCH (21:42)
[2017-01-19] VITALS: BP 170/85
[2017-01-19] MEDS: METOCLOPRAMIDE HCL 10 MG/10 ML UDC GT SCH ×5 (00:33→23:24)
[2017-01-19] MEDS: RENAL NOVASOURCE 1,000 ML BOTTLE GT PRN (00:34)
[2017-01-19] MEDS: BLOOD SUGAR DIAGNOSTIC 1 EACH STRIP IN SCH ×5 (00:46→23:24)
[2017-01-19] MEDS: INSULIN REGULAR, HUMAN 100 UNIT/ML 3 ML VIAL SQ PRN ×5 (00:47→23:18)
[2017-01-19] MEDS: CLONIDINE HCL 0.2 MG TABLET GT PRN ×4 (00:48→20:06)
[2017-01-19] MEDS: ALBUTEROL FS 2.5 MG/3 ML VIAL.NEB NEB SCH ×4 (01:48→19:07)
[2017-01-19] MEDS: IPRATROPIUM NEB FS 0.5 MG/2.5 ML AMPUL.NEB NEB SCH ×4 (01:48→19:07)
[2017-01-19] MEDS: PIPERACILLIN /TAZOBACTAM 2.25 G in IV D5W 50 ML IV SCH ×3 (05:24→20:04)
[2017-01-19 06:00] VITALS: BP 165/75
--- NOTE | 2017-01-19 08:00 | NUR ---
Boyfriend John Woodall did not sign admission paperwork (unsure if he visited this past weekend). Left voice message for John Woodall indicating that admission ppwk needs to be physically signed although he provided verbal consents on 01/13/2017. SW will follow up.
[2017-01-19 08:18] VITALS: BP 186/75
[2017-01-19] MEDS: LACTOBACILLUS RHAMNOSUS GG 1 EACH CAP.SPRINK GT SCH ×2 (09:00→17:53)
[2017-01-19] MEDS: DAKINS HALF STRENGTH (0.25%) 480 ML BOTTLE TOP SCH ×2 (09:00→20:05)
[2017-01-19] MEDS: Z GUARD REMEDY 2 OZ OINT TP SCH ×2 (09:00→20:06)
[2017-01-19] MEDS: VIT B CMPLX 3/FA/VIT C/BIOTIN 1 TAB TABLET PO SCH (09:00)
[2017-01-19] MEDS: HYDROGEL DRESSING 90 GM TUBE TP SCH ×2 (09:00→20:05)
[2017-01-19] MEDS: NEOMY SULF/BACITRAC ZN/POLY 15 GM TUBE TP SCH ×6 (09:00→20:06)
[2017-01-19] MEDS: HEPARIN SODIUM, PORCINE 5000 UNITS/1 ML VIAL SQ SCH ×2 (09:00→20:08)
[2017-01-19] MEDS: CALCITRIOL ORAL SOLUTION 1 MCG/ML GT SCH (09:00)
[2017-01-19] MEDS: NYSTATIN TOP POWDER 15 GM BOTTLE TP SCH ×8 (09:00→20:05)
[2017-01-19] MEDS: METOPROLOL TARTRATE 50 MG TABLET GT SCH ×2 (09:00→22:18)
[2017-01-19] MEDS: HYDROCODONE/APAP 5/325MG 1 EACH TABLET GT SCH ×2 (09:00→20:04)
[2017-01-19] MEDS: PROSOURCE / PROSTAT (PYXIS) 30 ML UDC GT SCH ×3 (09:00→17:53)
[2017-01-19] MEDS: ASCORBIC ACID 500 MG TABLET GT SCH (09:00)
[2017-01-19] MEDS: Z GUARD REMEDY 4 OZ OINT TP SCH ×2 (09:00→20:06)
[2017-01-19] MEDS: CADEXOMER IODINE 40 GM TUBE TP SCH ×4 (09:00→20:05)
[2017-01-19] MEDS: hydrALAZINE HCL 25 MG TABLET GT SCH ×2 (09:00→17:53)
[2017-01-19] MEDS: ESOMEPRAZOLE MAGNESIUM 40 MG GT SCH (09:00)
--- NOTE | 2017-01-19 10:23 | NUR ---
Pt on contact isolation for VRE wound. Education provided to staff and pt's boyfriend.
--- NOTE | 2017-01-19 11:04 | NUR ---
Informed Coni (clinical services manager) that since the merger of transportation [employer], efficient transportation to dialysis has been impacted. Informed him of concerns (ambulance showing up late, not bringing suction machine, not knowing if RT has to stay with the resident). He stated to email him concerns which the SW did. Asked for resolution of problems. SW will follow up. Informed charge nurse and subacute clinical nursing professor.
[2017-01-19 15:06] VITALS: BP 133/79
--- NOTE | 2017-01-19 16:00 | NUR ---
Requested Dr. Rojas and Dr. Celestine Bettencourt to see pt's wounds. Dr. Rojas said he will see her. Dr. Celestine Bettencourt said he will see pt on .
[2017-01-19] MEDS: LEVOFLOXACIN 250 MG /D5W 50 ML 250 MG in PREMIX 1 EA IV SCH (17:50)
[2017-01-19 18:48] VITALS: BP 152/80
[2017-01-19 19:55] VITALS: BP 153/73
--- NOTE | 2017-01-19 22:00 | NUR ---
RN NOTES BP AT 1999 173/73, CLONIDINE GIVEN PER ORDER, BP NOW AT 136/63. NO NEUROLOGICAL CHANGES NOTED.
[2017-01-19] MEDS: INSULIN GLARGINE, 100 UNIT/ML CARTRIDGE SQ SCH (22:19)
[2017-01-20] VITALS: BP 146/83
[2017-01-20] MEDS: IPRATROPIUM NEB FS 0.5 MG/2.5 ML AMPUL.NEB NEB SCH ×4 (00:52→19:42)
[2017-01-20] MEDS: ALBUTEROL FS 2.5 MG/3 ML VIAL.NEB NEB SCH ×4 (00:52→19:42)
[2017-01-20] MEDS: PIPERACILLIN /TAZOBACTAM 2.25 G in IV D5W 50 ML IV SCH ×3 (05:23→21:16)
[2017-01-20] MEDS: METOCLOPRAMIDE HCL 10 MG/10 ML UDC GT SCH ×3 (05:23→17:47)
[2017-01-20] MEDS: BLOOD SUGAR DIAGNOSTIC 1 EACH STRIP IN SCH ×3 (05:23→18:20)
[2017-01-20] MEDS: INSULIN REGULAR, HUMAN 100 UNIT/ML 3 ML VIAL SQ PRN ×2 (05:25→18:22)
[2017-01-20 06:00] VITALS: BP 144/80
--- NOTE | 2017-01-20 07:50 | NUR ---
RT PT RECEIVED TRACHED ON THE VENT WITH NOTED SETTINGS. PT IS AWAKE BUT DOES NOT FOLLOW COMMANDS. VENT ALARMS ARE SET AND AUDIBLE WITH BVM BY BEDSIDE. FIRE CONTROL ASSISTANT CUFF PRESSURE NOTED. VENT IS PLUGGED INTO RED OUTLET. NO RESPIRATORY DISTRESS NOTED AT THIS TIME, WILL CONTINUE TO MONITOR. Addendum: 01/20/17 at 1835 by EDU CIFUENTES RT Amended: Links added.
[2017-01-20 08:03] VITALS: BP 156/80
[2017-01-20] MEDS: ESOMEPRAZOLE MAGNESIUM 40 MG GT SCH (08:58)
[2017-01-20] MEDS: LACTOBACILLUS RHAMNOSUS GG 1 EACH CAP.SPRINK GT SCH ×2 (08:58→17:46)
[2017-01-20] MEDS: CALCITRIOL ORAL SOLUTION 1 MCG/ML GT SCH (08:58)
[2017-01-20] MEDS: PROSOURCE / PROSTAT (PYXIS) 30 ML UDC GT SCH ×3 (08:58→17:46)
[2017-01-20] MEDS: ASCORBIC ACID 500 MG TABLET GT SCH (08:58)
[2017-01-20] MEDS: VIT B CMPLX 3/FA/VIT C/BIOTIN 1 TAB TABLET PO SCH (08:58)
[2017-01-20] MEDS: HEPARIN SODIUM, PORCINE 5000 UNITS/1 ML VIAL SQ SCH ×2 (08:59→21:15)
--- NOTE | 2017-01-20 10:11 | NUR ---
Called transportation aide Valdemar Huerta ([phone]). He passed the phone to the dispatcher Arutro. LUPILLO explained concerns (late spanish moss picker times, crew not prepared). He noted the concerns and changed the resident's pickup time to 8:30AM. Charge nurse informed.
[2017-01-20] MEDS: HYDROCODONE/APAP 5/325MG 1 EACH TABLET GT SCH ×2 (15:30→21:26)
[2017-01-20] MEDS: GENTAMICIN 80 MG in IV D5W 50 ML IV SCH (15:30)
[2017-01-20 16:11] VITALS: BP 156/76
[2017-01-20] MEDS: NEOMY SULF/BACITRAC ZN/POLY 15 GM TUBE TP SCH ×6 (16:13→21:18)
[2017-01-20] MEDS: NYSTATIN TOP POWDER 15 GM BOTTLE TP SCH ×8 (16:13→21:17)
[2017-01-20] MEDS: DAKINS HALF STRENGTH (0.25%) 480 ML BOTTLE TOP SCH ×2 (16:13→21:16)
[2017-01-20] MEDS: Z GUARD REMEDY 4 OZ OINT TP SCH ×3 (16:13→21:18)
[2017-01-20] MEDS: Z GUARD REMEDY 2 OZ OINT TP SCH ×2 (16:13→21:18)
[2017-01-20] MEDS: CADEXOMER IODINE 40 GM TUBE TP SCH ×5 (16:13→21:17)
[2017-01-20] MEDS: HYDROGEL DRESSING 90 GM TUBE TP SCH ×3 (16:13→21:16)
[2017-01-20] MEDS: hydrALAZINE HCL 25 MG TABLET GT SCH (17:46)
[2017-01-20 18:53] VITALS: BP 158/83
[2017-01-20] MEDS ORDERED: Z GUARD REMEDY 4 OZ OINT TP PRN (19:30)
[2017-01-20] MEDS ORDERED: HYDROGEL DRESSING 90 GM TUBE TP PRN (19:30)
[2017-01-20] MEDS ORDERED: DAKINS QUARTER STRENGTH (0.125%) 480 ML BOTTLE TOP PRN (19:30)
[2017-01-20 19:50] VITALS: BP 150/73
[2017-01-20] MEDS: DAKINS QUARTER STRENGTH (0.125%) 480 ML BOTTLE TOP SCH (21:16)
[2017-01-20] MEDS: METOPROLOL TARTRATE 50 MG TABLET GT SCH (21:22)
[2017-01-20] MEDS: INSULIN GLARGINE, 100 UNIT/ML CARTRIDGE SQ SCH (21:23)
[2017-01-21] VITALS: BP 160/73
[2017-01-21] MEDS: INSULIN REGULAR, HUMAN 100 UNIT/ML 3 ML VIAL SQ PRN ×4 (01:27→17:37)
[2017-01-21] MEDS: ALBUTEROL FS 2.5 MG/3 ML VIAL.NEB NEB SCH ×4 (02:00→19:18)
[2017-01-21] MEDS: IPRATROPIUM NEB FS 0.5 MG/2.5 ML AMPUL.NEB NEB SCH ×4 (02:00→19:18)
--- NOTE | 2017-01-21 02:06 | NUR ---
BLOOD SUGAR 251. 9 UNITS GIVEN.
[2017-01-21] MEDS: METOCLOPRAMIDE HCL 10 MG/10 ML UDC GT SCH ×4 (05:19→17:36)
[2017-01-21] MEDS: BLOOD SUGAR DIAGNOSTIC 1 EACH STRIP IN SCH ×4 (05:19→17:36)
[2017-01-21] MEDS: RENAL NOVASOURCE 1,000 ML BOTTLE GT PRN (05:19)
[2017-01-21 06:00] VITALS: BP 160/73
[2017-01-21 08:06] VITALS: BP 194/83
[2017-01-21] MEDS: METOPROLOL TARTRATE 50 MG TABLET GT SCH ×2 (09:01→21:10)
[2017-01-21] MEDS: ESOMEPRAZOLE MAGNESIUM 40 MG GT SCH (09:01)
[2017-01-21] MEDS: CALCITRIOL ORAL SOLUTION 1 MCG/ML GT SCH (09:01)
[2017-01-21] MEDS: hydrALAZINE HCL 25 MG TABLET GT SCH ×2 (09:01→17:35)
[2017-01-21] MEDS: PROSOURCE / PROSTAT (PYXIS) 30 ML UDC GT SCH ×3 (09:01→17:36)
[2017-01-21] MEDS: VIT B CMPLX 3/FA/VIT C/BIOTIN 1 TAB TABLET PO SCH (09:01)
[2017-01-21] MEDS: ASCORBIC ACID 500 MG TABLET GT SCH (09:01)
[2017-01-21] MEDS: LACTOBACILLUS RHAMNOSUS GG 1 EACH CAP.SPRINK GT SCH ×2 (09:01→17:36)
[2017-01-21] MEDS: NYSTATIN TOP POWDER 15 GM BOTTLE TP SCH ×8 (09:20→21:09)
[2017-01-21] MEDS: HEPARIN SODIUM, PORCINE 5000 UNITS/1 ML VIAL SQ SCH ×2 (09:20→21:08)
[2017-01-21] MEDS: HYDROCODONE/APAP 5/325MG 1 EACH TABLET GT SCH ×3 (10:35→21:08)
[2017-01-21] MEDS: DAKINS QUARTER STRENGTH (0.125%) 480 ML BOTTLE TOP SCH ×2 (11:35→21:08)
[2017-01-21] MEDS: Z GUARD REMEDY 4 OZ OINT TP SCH ×4 (11:35→21:09)
[2017-01-21] MEDS: Z GUARD REMEDY 2 OZ OINT TP SCH ×2 (11:35→21:09)
[2017-01-21] MEDS: CADEXOMER IODINE 40 GM TUBE TP SCH ×6 (11:35→21:08)
[2017-01-21] MEDS: NEOMY SULF/BACITRAC ZN/POLY 15 GM TUBE TP SCH ×6 (11:35→21:09)
[2017-01-21] MEDS: DAKINS HALF STRENGTH (0.25%) 480 ML BOTTLE TOP SCH ×2 (11:35→21:08)
[2017-01-21] MEDS: HYDROGEL DRESSING 90 GM TUBE TP SCH ×4 (11:35→21:08)
[2017-01-21 12:00] VITALS: BP 158/75
[2017-01-21] MEDS: CLONIDINE HCL 0.2 MG TABLET GT PRN (12:57)
[2017-01-21 19:03] VITALS: BP 160/81
[2017-01-21 20:17] VITALS: BP 176/83
[2017-01-21] MEDS: INSULIN GLARGINE, 100 UNIT/ML CARTRIDGE SQ SCH (22:01)
[2017-01-22] MEDS: METOCLOPRAMIDE HCL 10 MG/10 ML UDC GT SCH ×5 (00:10→23:20)
[2017-01-22] MEDS: BLOOD SUGAR DIAGNOSTIC 1 EACH STRIP IN SCH ×5 (00:10→23:20)
[2017-01-22] MEDS: INSULIN REGULAR, HUMAN 100 UNIT/ML 3 ML VIAL SQ PRN ×4 (00:11→23:21)
[2017-01-22 00:18] VITALS: BP 141/68
[2017-01-22] MEDS: ALBUTEROL FS 2.5 MG/3 ML VIAL.NEB NEB SCH ×4 (01:21→20:08)
[2017-01-22] MEDS: IPRATROPIUM NEB FS 0.5 MG/2.5 ML AMPUL.NEB NEB SCH ×4 (01:21→20:08)
[2017-01-22] MEDS: RENAL NOVASOURCE 1,000 ML BOTTLE GT PRN (06:01)
[2017-01-22 06:02] VITALS: BP 158/75
[2017-01-22 07:32] VITALS: BP 163/80
[2017-01-22] MEDS: LACTOBACILLUS RHAMNOSUS GG 1 EACH CAP.SPRINK GT SCH ×2 (08:37→17:00)
[2017-01-22] MEDS: CALCITRIOL ORAL SOLUTION 1 MCG/ML GT SCH (08:37)
[2017-01-22] MEDS: ESOMEPRAZOLE MAGNESIUM 40 MG GT SCH (08:37)
[2017-01-22] MEDS: PROSOURCE / PROSTAT (PYXIS) 30 ML UDC GT SCH ×3 (08:38→17:00)
[2017-01-22] MEDS: ASCORBIC ACID 500 MG TABLET GT SCH (08:38)
[2017-01-22] MEDS: VIT B CMPLX 3/FA/VIT C/BIOTIN 1 TAB TABLET PO SCH (08:38)
[2017-01-22] MEDS: HEPARIN SODIUM, PORCINE 5000 UNITS/1 ML VIAL SQ SCH ×2 (08:41→21:24)
[2017-01-22] MEDS: HYDROCODONE/APAP 5/325MG 1 EACH TABLET GT SCH ×2 (15:52→21:24)
[2017-01-22] MEDS: DAKINS QUARTER STRENGTH (0.125%) 480 ML BOTTLE TOP SCH ×2 (16:30→21:25)
[2017-01-22] MEDS: CADEXOMER IODINE 40 GM TUBE TP SCH ×6 (16:30→21:25)
[2017-01-22] MEDS: NYSTATIN TOP POWDER 15 GM BOTTLE TP SCH ×8 (16:30→21:25)
[2017-01-22] MEDS: Z GUARD REMEDY 2 OZ OINT TP SCH ×2 (16:30→21:25)
[2017-01-22] MEDS: Z GUARD REMEDY 4 OZ OINT TP SCH ×4 (16:30→21:25)
[2017-01-22] MEDS: HYDROGEL DRESSING 90 GM TUBE TP SCH ×4 (16:30→21:25)
[2017-01-22] MEDS: DAKINS HALF STRENGTH (0.25%) 480 ML BOTTLE TOP SCH (16:30)
[2017-01-22] MEDS: NEOMY SULF/BACITRAC ZN/POLY 15 GM TUBE TP SCH ×6 (16:30→21:25)
[2017-01-22] MEDS: hydrALAZINE HCL 25 MG TABLET GT SCH (17:00)
[2017-01-22] MEDS: CLONIDINE HCL 0.2 MG TABLET GT PRN (18:39)
[2017-01-22 19:21] VITALS: BP 172/75
[2017-01-22 19:56] VITALS: BP 173/71
[2017-01-22] MEDS: INSULIN GLARGINE, 100 UNIT/ML CARTRIDGE SQ SCH (21:26)
[2017-01-22] MEDS: LACTULOSE 10 G/15 ML UDC (PYXIS) GT PRN (21:26)
[2017-01-22] MEDS: METOPROLOL TARTRATE 50 MG TABLET GT SCH (21:26)
[2017-01-23] VITALS (7 sets, daily range): BP systolic 144–180; BP diastolic 65–83
[2017-01-23] MEDS: ALBUTEROL FS 2.5 MG/3 ML VIAL.NEB NEB SCH ×4 (01:23→20:03)
[2017-01-23] MEDS: IPRATROPIUM NEB FS 0.5 MG/2.5 ML AMPUL.NEB NEB SCH ×4 (01:23→20:03)
[2017-01-23] MEDS: METOCLOPRAMIDE HCL 10 MG/10 ML UDC GT SCH ×4 (05:59→23:33)
[2017-01-23] MEDS: RENAL NOVASOURCE 1,000 ML BOTTLE GT PRN (05:59)
[2017-01-23] MEDS: BLOOD SUGAR DIAGNOSTIC 1 EACH STRIP IN SCH ×4 (05:59→23:33)
[2017-01-23] MEDS: INSULIN REGULAR, HUMAN 100 UNIT/ML 3 ML VIAL SQ PRN ×4 (06:00→23:34)
[2017-01-23] MEDS: VIT B CMPLX 3/FA/VIT C/BIOTIN 1 TAB TABLET PO SCH (08:57)
[2017-01-23] MEDS: PROSOURCE / PROSTAT (PYXIS) 30 ML UDC GT SCH ×3 (08:57→17:25)
[2017-01-23] MEDS: ASCORBIC ACID 500 MG TABLET GT SCH (08:57)
[2017-01-23] MEDS: ESOMEPRAZOLE MAGNESIUM 40 MG GT SCH (08:57)
[2017-01-23] MEDS: LACTOBACILLUS RHAMNOSUS GG 1 EACH CAP.SPRINK GT SCH ×2 (08:57→17:25)
[2017-01-23] MEDS: hydrALAZINE HCL 25 MG TABLET GT SCH ×2 (08:57→17:25)
[2017-01-23] MEDS: CALCITRIOL ORAL SOLUTION 1 MCG/ML GT SCH (08:57)
[2017-01-23] MEDS: METOPROLOL TARTRATE 50 MG TABLET GT SCH ×2 (08:57→21:10)
[2017-01-23] MEDS: HYDROCODONE/APAP 5/325MG 1 EACH TABLET GT SCH ×2 (08:57→20:41)
[2017-01-23] MEDS: HEPARIN SODIUM, PORCINE 5000 UNITS/1 ML VIAL SQ SCH ×2 (08:58→20:42)
[2017-01-23] MEDS: HYDROGEL DRESSING 90 GM TUBE TP SCH ×4 (09:57→20:42)
[2017-01-23] MEDS: NYSTATIN TOP POWDER 15 GM BOTTLE TP SCH ×8 (09:57→20:42)
[2017-01-23] MEDS: DAKINS QUARTER STRENGTH (0.125%) 480 ML BOTTLE TOP SCH ×2 (09:57→20:42)
[2017-01-23] MEDS: CADEXOMER IODINE 40 GM TUBE TP SCH ×6 (09:57→20:42)
[2017-01-23] MEDS: Z GUARD REMEDY 2 OZ OINT TP SCH ×2 (09:58→20:43)
[2017-01-23] MEDS: Z GUARD REMEDY 4 OZ OINT TP SCH ×4 (09:58→20:43)
[2017-01-23] MEDS: NEOMY SULF/BACITRAC ZN/POLY 15 GM TUBE TP SCH ×6 (09:58→20:43)
[2017-01-23] MEDS: CLONIDINE HCL 0.2 MG TABLET GT PRN ×2 (13:00→23:37)
--- NOTE | 2017-01-23 14:00 | NUR ---
IDT meeting held, reviewed medications, new orders, treatments and labs. Patient is no longer receiving IV ATB and resident with L IJ central line and L midline. Dr. Morejon with order to DC L jugular central line. Order noted and carried out.
--- NOTE | 2017-01-23 15:41 | NUR ---
Spoke with Rachell from Dr. Castro's office requested to emilia FUENTES due to [facility] inspector screen printing's recommendation to DC Calcitriol due to PTH level of 67. According to inspector screen printing Cate, calcitriol is not recommended unless PTH level is > or = to 300. Requested ICU nurse to D/C central line in the L jugular vein, but upon flushing L UA midline noted to be kinked and cannot be use anymore. Awaiting for MD to call back if he agrees with above to d/c Calcitriol and D/C L jugular central line and obtain CBC to recheck H and H.
--- NOTE | 2017-01-23 18:35 | NUR ---
Informed Dr. Morejon if he still wants to d/c internal jugular line, since she will be left without access, he still wants to discontinue the central line. TRANSPLANT NURSE PRACTITIONER Virgen removed internal jugular line triple lumen, catheter intact, pressure dressing applied, no bleeding noted. patient tolerated procedure well. Hellen Leija NP seen and examined resident & made aware of elevated B/P despite giving PRN Clonidine 0.2 mg. New order given to increase Hydralazine to 50mg. TID. All orders noted and carried out.
[2017-01-23] MEDS: POLYVINYL ALCOHOL 15 ML BOTTLE EACHEYE SCH (20:41)
[2017-01-23] MEDS: LACTULOSE 10 G/15 ML UDC (PYXIS) GT PRN (20:43)
[2017-01-23] MEDS: INSULIN GLARGINE, 100 UNIT/ML CARTRIDGE SQ SCH (21:11)
[2017-01-24 00:08] VITALS: BP 169/73
[2017-01-24] MEDS: IPRATROPIUM NEB FS 0.5 MG/2.5 ML AMPUL.NEB NEB SCH ×4 (00:50→19:56)
[2017-01-24] MEDS: ALBUTEROL FS 2.5 MG/3 ML VIAL.NEB NEB SCH ×4 (00:50→19:56)
[2017-01-24] MEDS: METOCLOPRAMIDE HCL 10 MG/10 ML UDC GT SCH ×4 (05:25→23:49)
[2017-01-24] MEDS: BLOOD SUGAR DIAGNOSTIC 1 EACH STRIP IN SCH ×4 (05:25→23:49)
[2017-01-24] MEDS: RENAL NOVASOURCE 1,000 ML BOTTLE GT PRN (05:25)
[2017-01-24] MEDS: INSULIN REGULAR, HUMAN 100 UNIT/ML 3 ML VIAL SQ PRN ×3 (05:27→23:52)
[2017-01-24] MEDS: CLONIDINE HCL 0.2 MG TABLET GT PRN ×3 (05:37→23:51)
[2017-01-24 06:21] VITALS: BP 185/71
[2017-01-24] MEDS: POLYVINYL ALCOHOL 15 ML BOTTLE EACHEYE SCH ×2 (08:18→21:10)
[2017-01-24] MEDS: CALCITRIOL ORAL SOLUTION 1 MCG/ML GT SCH (08:18)
[2017-01-24] MEDS: VIT B CMPLX 3/FA/VIT C/BIOTIN 1 TAB TABLET PO SCH (08:18)
[2017-01-24] MEDS: ESOMEPRAZOLE MAGNESIUM 40 MG GT SCH (08:18)
[2017-01-24] MEDS: PROSOURCE / PROSTAT (PYXIS) 30 ML UDC GT SCH ×3 (08:18→17:38)
[2017-01-24] MEDS: LACTOBACILLUS RHAMNOSUS GG 1 EACH CAP.SPRINK GT SCH ×2 (08:18→17:38)
[2017-01-24] MEDS: ASCORBIC ACID 500 MG TABLET GT SCH (08:18)
[2017-01-24] MEDS: HEPARIN SODIUM, PORCINE 5000 UNITS/1 ML VIAL SQ SCH ×2 (08:19→21:11)
--- NOTE | 2017-01-24 09:30 | NUR ---
Spoke with Donald [facility] that patient B/P is running high 187/72. Asked staff if they will draw H and H for resident, according to Donald it is done on Thursday or because nobody will cone picker the specimen at this time. Resident left for dialysis in stable condition. AV fistula no bleeding, + bruit.
--- NOTE | 2017-01-24 12:52 | NUR ---
PATIENT OUT OF FACILITY. HHN TX NOT GIVEN
--- NOTE | 2017-01-24 14:00 | NUR ---
Resident returned back from dialysis accompanied by ambulance staff and RT in stable condition. AV fistula + for bruit, no bleeding noted in the site. Post dialysis V/S 179/83, 99.0, 68, 12 O2 sat 98% and 0/10.
[2017-01-24] MEDS: HYDROCODONE/APAP 5/325MG 1 EACH TABLET GT SCH ×2 (14:20→21:11)
--- NOTE | 2017-01-24 14:20 | NUR ---
Saw Dr. Castro in the hallway and called his attention to asked regarding the [facility] recommendations to DC Calcitriol. He said " Dr. Castro is not here" and left. Called his answering service requesting to speak with trailers and motor homes salesperson physician, spoke with yolie Bonds Dr., trailers and motor homes salesperson for [facility]. Awaiting for MD to call back.
[2017-01-24] MEDS: HYDROGEL DRESSING 90 GM TUBE TP SCH ×4 (14:50→21:11)
[2017-01-24] MEDS: Z GUARD REMEDY 2 OZ OINT TP SCH ×2 (14:50→21:12)
[2017-01-24] MEDS: DAKINS QUARTER STRENGTH (0.125%) 480 ML BOTTLE TOP SCH ×2 (14:50→21:11)
[2017-01-24] MEDS: NEOMY SULF/BACITRAC ZN/POLY 15 GM TUBE TP SCH ×6 (14:50→21:12)
[2017-01-24] MEDS: CADEXOMER IODINE 40 GM TUBE TP SCH ×6 (14:50→21:12)
[2017-01-24] MEDS: Z GUARD REMEDY 4 OZ OINT TP SCH ×4 (14:50→21:12)
[2017-01-24] MEDS: NYSTATIN TOP POWDER 15 GM BOTTLE TP SCH ×8 (14:50→21:12)
[2017-01-24] MEDS: hydrALAZINE HCL 25 MG TABLET GT SCH (17:37)
[2017-01-24 18:57] VITALS: BP 180/68
[2017-01-24 19:48] VITALS: BP 187/73
[2017-01-24] MEDS: METOPROLOL TARTRATE 50 MG TABLET GT SCH (21:13)
[2017-01-24] MEDS: LACTULOSE 10 G/15 ML UDC (PYXIS) GT PRN (21:13)
[2017-01-24] MEDS: INSULIN GLARGINE, 100 UNIT/ML CARTRIDGE SQ SCH (21:13)
[2017-01-25 00:35] VITALS: BP 172/73
[2017-01-25] MEDS: ALBUTEROL FS 2.5 MG/3 ML VIAL.NEB NEB SCH ×4 (02:00→19:30)
[2017-01-25] MEDS: IPRATROPIUM NEB FS 0.5 MG/2.5 ML AMPUL.NEB NEB SCH ×4 (02:00→19:30)
[2017-01-25] MEDS: BLOOD SUGAR DIAGNOSTIC 1 EACH STRIP IN SCH ×4 (05:17→23:31)
[2017-01-25] MEDS: METOCLOPRAMIDE HCL 10 MG/10 ML UDC GT SCH ×4 (05:17→23:31)
[2017-01-25] MEDS: RENAL NOVASOURCE 1,000 ML BOTTLE GT PRN (05:18)
[2017-01-25] MEDS: CLONIDINE HCL 0.2 MG TABLET GT PRN (05:18)
[2017-01-25] MEDS: INSULIN REGULAR, HUMAN 100 UNIT/ML 3 ML VIAL SQ PRN ×3 (05:19→23:32)
[2017-01-25 06:11] VITALS: BP 180/84
[2017-01-25 07:50] VITALS: BP 177/77
[2017-01-25] MEDS: POLYVINYL ALCOHOL 15 ML BOTTLE EACHEYE SCH ×2 (09:23→20:43)
[2017-01-25] MEDS: hydrALAZINE HCL 25 MG TABLET GT SCH ×2 (09:23→17:22)
[2017-01-25] MEDS: LACTOBACILLUS RHAMNOSUS GG 1 EACH CAP.SPRINK GT SCH ×2 (09:25→17:22)
[2017-01-25] MEDS: METOPROLOL TARTRATE 50 MG TABLET GT SCH ×2 (09:25→21:26)
[2017-01-25] MEDS: ESOMEPRAZOLE MAGNESIUM 40 MG GT SCH (09:25)
[2017-01-25] MEDS: CALCITRIOL ORAL SOLUTION 1 MCG/ML GT SCH (09:25)
[2017-01-25] MEDS: ASCORBIC ACID 500 MG TABLET GT SCH (09:26)
[2017-01-25] MEDS: VIT B CMPLX 3/FA/VIT C/BIOTIN 1 TAB TABLET PO SCH (09:26)
[2017-01-25] MEDS: HEPARIN SODIUM, PORCINE 5000 UNITS/1 ML VIAL SQ SCH ×2 (09:26→20:44)
[2017-01-25] MEDS: PROSOURCE / PROSTAT (PYXIS) 30 ML UDC GT SCH ×3 (09:26→17:22)
[2017-01-25] MEDS: DAKINS QUARTER STRENGTH (0.125%) 480 ML BOTTLE TOP SCH ×2 (09:49→21:25)
[2017-01-25] MEDS: HYDROCODONE/APAP 5/325MG 1 EACH TABLET GT SCH ×2 (09:49→20:43)
[2017-01-25] MEDS: CADEXOMER IODINE 40 GM TUBE TP SCH ×6 (09:49→21:25)
[2017-01-25] MEDS: HYDROGEL DRESSING 90 GM TUBE TP SCH ×4 (09:49→21:25)
[2017-01-25] MEDS: NYSTATIN TOP POWDER 15 GM BOTTLE TP SCH ×8 (09:50→21:25)
[2017-01-25] MEDS: Z GUARD REMEDY 4 OZ OINT TP SCH ×4 (09:50→21:26)
[2017-01-25] MEDS: NEOMY SULF/BACITRAC ZN/POLY 15 GM TUBE TP SCH ×6 (09:50→21:26)
[2017-01-25] MEDS: Z GUARD REMEDY 2 OZ OINT TP SCH ×2 (09:50→21:26)
--- NOTE | 2017-01-25 12:05 | NUR ---
Dr. Ng in the unit, asked if he can take a look at the [facility] dietitian's recommendations to DC Calcitriol due to low PTH level (67) which is contraindicated. gave the order to DC Calcitriol. Orders noted and carried out.
[2017-01-25 18:06] VITALS: BP 186/83
[2017-01-25 19:47] VITALS: BP 158/78
[2017-01-25] MEDS: INSULIN GLARGINE, 100 UNIT/ML CARTRIDGE SQ SCH (21:27)
[2017-01-26] MEDS: IPRATROPIUM NEB FS 0.5 MG/2.5 ML AMPUL.NEB NEB SCH ×4 (00:50→19:43)
[2017-01-26] MEDS: ALBUTEROL FS 2.5 MG/3 ML VIAL.NEB NEB SCH ×4 (00:50→19:43)
[2017-01-26 01:44] VITALS: BP 146/76
[2017-01-26] MEDS: METOCLOPRAMIDE HCL 10 MG/10 ML UDC GT SCH ×4 (05:30→23:37)
[2017-01-26] MEDS: BLOOD SUGAR DIAGNOSTIC 1 EACH STRIP IN SCH ×4 (05:54→23:37)
[2017-01-26] MEDS: INSULIN REGULAR, HUMAN 100 UNIT/ML 3 ML VIAL SQ PRN ×4 (05:55→23:38)
[2017-01-26 06:30] VITALS: BP 150/82
[2017-01-26 07:00] LABS: BASOPHILS # (AUTO) 0.1 /CMM (0.0-0.2); BASOPHILS % (AUTO) 0.9 % (0.0-2.0); EOSINOPHILS # (AUTO) 0.3 /CMM (0.0-0.7); EOSINOPHILS % (AUTO) 3.7 % (0.0-6.0); HEMATOCRIT 27 % (33-45); LYMPHOCYTES % (AUTO) 12.6 % (20.0-44.0); MEAN CORPUSCULAR HEMOGLOBIN 32 PG (26.0-33.0); MEAN CORPUSCULAR HGB CONC 33 g/dl (31.0-36.0); MEAN CORPUSCULAR VOLUME 96 fL (82-100); MONOCYTES # (AUTO) 0.5 /CMM (0.1-1.30); MONOCYTES % (AUTO) 5.9 % (2.0-12.0); NEUTROPHILS % (AUTO) 76.9 % (43.0-81.0); PLATELET COUNT (AUTO) 132 /CMM (150-450); RED BLOOD CELL COUNT(AUTO) 2.83 MIL/uL (4.0-5.2); WHITE BLOOD COUNT (AUTO) 7.7 K/uL (4.3-11.0)
[2017-01-26 08:21] VITALS: BP 110/78
[2017-01-26] MEDS: hydrALAZINE HCL 25 MG TABLET GT SCH ×2 (09:00→17:45)
[2017-01-26] MEDS: LACTOBACILLUS RHAMNOSUS GG 1 EACH CAP.SPRINK GT SCH ×2 (09:51→17:45)
[2017-01-26] MEDS: POLYVINYL ALCOHOL 15 ML BOTTLE EACHEYE SCH ×2 (09:51→20:38)
[2017-01-26] MEDS: VIT B CMPLX 3/FA/VIT C/BIOTIN 1 TAB TABLET PO SCH (09:52)
[2017-01-26] MEDS: METOPROLOL TARTRATE 50 MG TABLET GT SCH ×2 (09:52→21:20)
[2017-01-26] MEDS: PROSOURCE / PROSTAT (PYXIS) 30 ML UDC GT SCH ×3 (09:52→17:45)
[2017-01-26] MEDS: HEPARIN SODIUM, PORCINE 5000 UNITS/1 ML VIAL SQ SCH ×2 (09:52→20:39)
[2017-01-26] MEDS: HYDROCODONE/APAP 5/325MG 1 EACH TABLET GT SCH ×2 (09:52→20:38)
[2017-01-26] MEDS: ASCORBIC ACID 500 MG TABLET GT SCH (09:52)
[2017-01-26] MEDS: ESOMEPRAZOLE MAGNESIUM 40 MG GT SCH (09:52)
[2017-01-26] MEDS: DAKINS QUARTER STRENGTH (0.125%) 480 ML BOTTLE TOP SCH ×2 (10:00→21:18)
[2017-01-26] MEDS: NEOMY SULF/BACITRAC ZN/POLY 15 GM TUBE TP SCH ×6 (10:00→21:19)
[2017-01-26] MEDS: Z GUARD REMEDY 2 OZ OINT TP SCH ×2 (10:00→21:19)
[2017-01-26] MEDS: CADEXOMER IODINE 40 GM TUBE TP SCH ×6 (10:00→21:19)
[2017-01-26] MEDS: Z GUARD REMEDY 4 OZ OINT TP SCH ×4 (10:00→21:19)
[2017-01-26] MEDS: NYSTATIN TOP POWDER 15 GM BOTTLE TP SCH ×8 (10:00→21:19)
[2017-01-26] MEDS: HYDROGEL DRESSING 90 GM TUBE TP SCH ×4 (10:00→21:18)
--- NOTE | 2017-01-26 13:00 | NUR ---
Seen by THOMAS Leija. Relayed CBC result to her. No new order. Dr. Celestine Bettencourt came. He said he will refer pt to Dr. Errol Castro so he can follow-up pt's wounds. Addendum: 01/26/17 at 1432 by GEORGE CLEARY RN Dr. Celestine Bettencourt was following up pt for sacral wound. Dr. Castro was following up pt's abdominal surgical wound.
--- NOTE | 2017-01-26 13:05 | NUR ---
Clarified Hydralazine order with TUBE DRAW HELPER Hellen Leija if she adjusted pt's Hydralazine and wanted her to be on Hydralazine 50 mg TID, since pt is only on Hydralazine BID on non-dialysis days, daily in the afternoon on dialysis days. She said to keep pt on current Hydralazine 50 mg frequency, not TID.
[2017-01-26 16:31] VITALS: BP 117/81
[2017-01-26 18:58] VITALS: BP 148/84
[2017-01-26 20:14] VITALS: BP 138/50
[2017-01-26] MEDS: INSULIN GLARGINE, 100 UNIT/ML CARTRIDGE SQ SCH (21:20)
[2017-01-27 00:58] VITALS: BP 144/86
[2017-01-27] MEDS: IPRATROPIUM NEB FS 0.5 MG/2.5 ML AMPUL.NEB NEB SCH ×4 (01:21→19:14)
[2017-01-27] MEDS: ALBUTEROL FS 2.5 MG/3 ML VIAL.NEB NEB SCH ×4 (01:21→19:14)
[2017-01-27] MEDS: METOCLOPRAMIDE HCL 10 MG/10 ML UDC GT SCH ×3 (05:26→17:56)
[2017-01-27] MEDS: BLOOD SUGAR DIAGNOSTIC 1 EACH STRIP IN SCH ×3 (05:50→18:16)
[2017-01-27] MEDS: INSULIN REGULAR, HUMAN 100 UNIT/ML 3 ML VIAL SQ PRN ×2 (05:51→18:17)
[2017-01-27 06:16] VITALS: BP 136/84
[2017-01-27 07:43] VITALS: BP 154/81
[2017-01-27] MEDS: POLYVINYL ALCOHOL 15 ML BOTTLE EACHEYE SCH ×2 (08:38→21:54)
[2017-01-27] MEDS: PROSOURCE / PROSTAT (PYXIS) 30 ML UDC GT SCH ×3 (08:38→17:56)
[2017-01-27] MEDS: ASCORBIC ACID 500 MG TABLET GT SCH (08:38)
[2017-01-27] MEDS: LACTOBACILLUS RHAMNOSUS GG 1 EACH CAP.SPRINK GT SCH ×2 (08:38→17:56)
[2017-01-27] MEDS: ESOMEPRAZOLE MAGNESIUM 40 MG GT SCH (08:38)
[2017-01-27] MEDS: VIT B CMPLX 3/FA/VIT C/BIOTIN 1 TAB TABLET PO SCH (08:38)
[2017-01-27] MEDS: HEPARIN SODIUM, PORCINE 5000 UNITS/1 ML VIAL SQ SCH ×2 (08:40→21:57)
--- NOTE | 2017-01-27 12:01 | NUR ---
V/S at 12noon for 01/27/17 not done due to resident not in the facility for dialysis.
--- NOTE | 2017-01-27 13:18 | NUR ---
pt is off unit
[2017-01-27] MEDS: HYDROCODONE/APAP 5/325MG 1 EACH TABLET GT SCH ×2 (14:29→21:55)
[2017-01-27] MEDS: Z GUARD REMEDY 4 OZ OINT TP SCH ×4 (15:00→21:55)
[2017-01-27] MEDS: DAKINS QUARTER STRENGTH (0.125%) 480 ML BOTTLE TOP SCH ×2 (15:00→21:54)
[2017-01-27] MEDS: HYDROGEL DRESSING 90 GM TUBE TP SCH ×4 (15:00→21:54)
[2017-01-27] MEDS: NYSTATIN TOP POWDER 15 GM BOTTLE TP SCH ×8 (15:00→21:55)
[2017-01-27] MEDS: CADEXOMER IODINE 40 GM TUBE TP SCH ×6 (15:00→21:54)
[2017-01-27] MEDS: Z GUARD REMEDY 2 OZ OINT TP SCH ×2 (15:00→21:55)
[2017-01-27] MEDS: NEOMY SULF/BACITRAC ZN/POLY 15 GM TUBE TP SCH ×4 (15:00→21:55)
[2017-01-27] MEDS: hydrALAZINE HCL 25 MG TABLET GT SCH (17:56)
[2017-01-27 18:48] VITALS: BP 152/88
[2017-01-27 19:38] VITALS: BP 150/93
[2017-01-27] MEDS: METOPROLOL TARTRATE 50 MG TABLET GT SCH (21:55)
[2017-01-27] MEDS: INSULIN GLARGINE, 100 UNIT/ML CARTRIDGE SQ SCH (22:08)
[2017-01-28] VITALS: BP 174/76
[2017-01-28] MEDS: INSULIN REGULAR, HUMAN 100 UNIT/ML 3 ML VIAL SQ PRN ×4 (00:07→18:15)
[2017-01-28] MEDS: IPRATROPIUM NEB FS 0.5 MG/2.5 ML AMPUL.NEB NEB SCH ×4 (01:34→19:40)
[2017-01-28] MEDS: ALBUTEROL FS 2.5 MG/3 ML VIAL.NEB NEB SCH ×4 (01:34→19:40)
[2017-01-28] MEDS: METOCLOPRAMIDE HCL 10 MG/10 ML UDC GT SCH ×4 (05:25→18:05)
[2017-01-28] MEDS: BLOOD SUGAR DIAGNOSTIC 1 EACH STRIP IN SCH ×4 (05:25→18:05)
[2017-01-28 06:00] VITALS: BP 180/83
[2017-01-28] MEDS: CLONIDINE HCL 0.2 MG TABLET GT PRN ×2 (06:31→13:15)
[2017-01-28 07:52] VITALS: BP 111/47
--- NOTE | 2017-01-28 08:33 | NUR ---
Social Service Section of [employer] (2nd quarter) completed. Resident awake but non-communicative. Her boyfriend, John is involved in her care and visits at least 1x/week. 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. Resident continues to go to dialysis 3x/week on Tuesdays, , and Saturdays. She was seen by the Manager Hiv on 12/08/2016. She was seen by insurance legal assistant 02/01/2016 and the dentist on 09/02/2015.
[2017-01-28] MEDS: hydrALAZINE HCL 25 MG TABLET GT SCH ×2 (09:00→17:00)
[2017-01-28] MEDS: POLYVINYL ALCOHOL 15 ML BOTTLE EACHEYE SCH ×2 (09:48→20:48)
[2017-01-28] MEDS: LACTOBACILLUS RHAMNOSUS GG 1 EACH CAP.SPRINK GT SCH ×2 (09:49→17:00)
[2017-01-28] MEDS: PROSOURCE / PROSTAT (PYXIS) 30 ML UDC GT SCH ×3 (09:50→17:00)
[2017-01-28] MEDS: METOPROLOL TARTRATE 50 MG TABLET GT SCH ×2 (09:50→21:18)
[2017-01-28] MEDS: VIT B CMPLX 3/FA/VIT C/BIOTIN 1 TAB TABLET PO SCH (09:50)
[2017-01-28] MEDS: ESOMEPRAZOLE MAGNESIUM 40 MG GT SCH (09:50)
[2017-01-28] MEDS: HEPARIN SODIUM, PORCINE 5000 UNITS/1 ML VIAL SQ SCH ×2 (09:50→20:49)
[2017-01-28] MEDS: ASCORBIC ACID 500 MG TABLET GT SCH (09:50)
[2017-01-28 13:16] VITALS: BP 168/75
[2017-01-28] MEDS: HYDROCODONE/APAP 5/325MG 1 EACH TABLET GT SCH ×2 (14:39→20:49)
[2017-01-28] MEDS: Z GUARD REMEDY 2 OZ OINT TP SCH ×2 (15:20→21:17)
[2017-01-28] MEDS: HYDROGEL DRESSING 90 GM TUBE TP SCH ×4 (15:20→21:17)
[2017-01-28] MEDS: NYSTATIN TOP POWDER 15 GM BOTTLE TP SCH ×8 (15:20→21:17)
[2017-01-28] MEDS: DAKINS QUARTER STRENGTH (0.125%) 480 ML BOTTLE TOP SCH ×2 (15:20→21:17)
[2017-01-28] MEDS: CADEXOMER IODINE 40 GM TUBE TP SCH ×6 (15:20→21:17)
[2017-01-28] MEDS: Z GUARD REMEDY 4 OZ OINT TP SCH ×4 (15:20→21:17)
[2017-01-28 18:44] VITALS: BP 156/80
[2017-01-28 20:41] VITALS: BP 177/78
[2017-01-28] MEDS: INSULIN GLARGINE, 100 UNIT/ML CARTRIDGE SQ SCH (21:19)
[2017-01-29] MEDS: METOCLOPRAMIDE HCL 10 MG/10 ML UDC GT SCH ×4 (00:03→18:06)
[2017-01-29] MEDS: BLOOD SUGAR DIAGNOSTIC 1 EACH STRIP IN SCH ×4 (00:03→18:06)
[2017-01-29] MEDS: RENAL NOVASOURCE 1,000 ML BOTTLE GT PRN (00:03)
[2017-01-29 00:04] VITALS: BP 144/80
[2017-01-29] MEDS: INSULIN REGULAR, HUMAN 100 UNIT/ML 3 ML VIAL SQ PRN ×3 (00:04→18:06)
[2017-01-29] MEDS: IPRATROPIUM NEB FS 0.5 MG/2.5 ML AMPUL.NEB NEB SCH ×4 (02:27→20:16)
[2017-01-29] MEDS: ALBUTEROL FS 2.5 MG/3 ML VIAL.NEB NEB SCH ×4 (02:27→20:16)
[2017-01-29 06:13] VITALS: BP 150/80
[2017-01-29 07:44] VITALS: BP 151/76
[2017-01-29] MEDS: POLYVINYL ALCOHOL 15 ML BOTTLE EACHEYE SCH ×2 (08:16→21:11)
[2017-01-29] MEDS: LACTOBACILLUS RHAMNOSUS GG 1 EACH CAP.SPRINK GT SCH ×2 (08:16→17:00)
[2017-01-29] MEDS: HEPARIN SODIUM, PORCINE 5000 UNITS/1 ML VIAL SQ SCH ×2 (08:16→21:12)
[2017-01-29] MEDS: VIT B CMPLX 3/FA/VIT C/BIOTIN 1 TAB TABLET PO SCH (08:16)
[2017-01-29] MEDS: PROSOURCE / PROSTAT (PYXIS) 30 ML UDC GT SCH ×3 (08:16→17:00)
[2017-01-29] MEDS: ESOMEPRAZOLE MAGNESIUM 40 MG GT SCH (08:16)
[2017-01-29] MEDS: ASCORBIC ACID 500 MG TABLET GT SCH (08:16)
[2017-01-29 13:42] VITALS: BP 172/95
[2017-01-29] MEDS: HYDROCODONE/APAP 5/325MG 1 EACH TABLET GT SCH ×2 (14:33→21:11)
[2017-01-29] MEDS: Z GUARD REMEDY 4 OZ OINT TP SCH ×4 (15:00→21:12)
[2017-01-29] MEDS: CADEXOMER IODINE 40 GM TUBE TP SCH ×6 (15:00→21:12)
[2017-01-29] MEDS: NYSTATIN TOP POWDER 15 GM BOTTLE TP SCH ×8 (15:00→21:12)
[2017-01-29] MEDS: HYDROGEL DRESSING 90 GM TUBE TP SCH ×4 (15:00→21:12)
[2017-01-29] MEDS: Z GUARD REMEDY 2 OZ OINT TP SCH ×2 (15:00→21:12)
[2017-01-29] MEDS: DAKINS QUARTER STRENGTH (0.125%) 480 ML BOTTLE TOP SCH ×2 (15:00→21:12)
[2017-01-29] MEDS: hydrALAZINE HCL 25 MG TABLET GT SCH (17:00)
[2017-01-29 18:00] VITALS: BP 160/77
--- NOTE | 2017-01-29 18:30 | NUR ---
THOMAS Bright removed sutures on the abdominal surgical site. No bleeding noted. She said to continue Hydrogel and Mepilex on the area.
[2017-01-29 20:04] VITALS: BP 163/82
[2017-01-29] MEDS: METOPROLOL TARTRATE 50 MG TABLET GT SCH (21:13)
[2017-01-29] MEDS: LACTULOSE 10 G/15 ML UDC (PYXIS) GT PRN (21:14)
[2017-01-29] MEDS: INSULIN GLARGINE, 100 UNIT/ML CARTRIDGE SQ SCH (21:14)
[2017-01-30] VITALS (7 sets, daily range): BP systolic 124–189; BP diastolic 57–81
[2017-01-30] MEDS: BLOOD SUGAR DIAGNOSTIC 1 EACH STRIP IN SCH ×4 (00:12→17:04)
[2017-01-30] MEDS: METOCLOPRAMIDE HCL 10 MG/10 ML UDC GT SCH ×4 (00:12→17:04)
[2017-01-30] MEDS: INSULIN REGULAR, HUMAN 100 UNIT/ML 3 ML VIAL SQ PRN ×4 (00:13→18:03)
[2017-01-30] MEDS: IPRATROPIUM NEB FS 0.5 MG/2.5 ML AMPUL.NEB NEB SCH ×4 (01:09→20:02)
[2017-01-30] MEDS: ALBUTEROL FS 2.5 MG/3 ML VIAL.NEB NEB SCH ×4 (01:09→20:02)
[2017-01-30] MEDS: RENAL NOVASOURCE 1,000 ML BOTTLE GT PRN (05:15)
[2017-01-30] MEDS: CLONIDINE HCL 0.2 MG TABLET GT PRN (05:16)
[2017-01-30] MEDS: Z GUARD REMEDY 4 OZ OINT TP SCH ×4 (09:00→20:22)
[2017-01-30] MEDS: HYDROGEL DRESSING 90 GM TUBE TP SCH ×4 (09:00→20:22)
[2017-01-30] MEDS: CADEXOMER IODINE 40 GM TUBE TP SCH ×6 (09:00→20:22)
[2017-01-30] MEDS: DAKINS QUARTER STRENGTH (0.125%) 480 ML BOTTLE TOP SCH ×2 (09:00→20:21)
[2017-01-30] MEDS: Z GUARD REMEDY 2 OZ OINT TP SCH ×2 (09:00→20:22)
[2017-01-30] MEDS: NYSTATIN TOP POWDER 15 GM BOTTLE TP SCH ×8 (09:00→20:22)
[2017-01-30] MEDS: hydrALAZINE HCL 25 MG TABLET GT SCH ×2 (09:58→17:02)
[2017-01-30] MEDS: METOPROLOL TARTRATE 50 MG TABLET GT SCH ×2 (09:58→21:25)
[2017-01-30] MEDS: LACTOBACILLUS RHAMNOSUS GG 1 EACH CAP.SPRINK GT SCH ×2 (09:58→17:04)
[2017-01-30] MEDS: ESOMEPRAZOLE MAGNESIUM 40 MG GT SCH (09:58)
[2017-01-30] MEDS: POLYVINYL ALCOHOL 15 ML BOTTLE EACHEYE SCH ×2 (09:58→20:21)
[2017-01-30] MEDS: ASCORBIC ACID 500 MG TABLET GT SCH (09:59)
[2017-01-30] MEDS: HYDROCODONE/APAP 5/325MG 1 EACH TABLET GT SCH ×2 (09:59→21:25)
[2017-01-30] MEDS: PROSOURCE / PROSTAT (PYXIS) 30 ML UDC GT SCH ×3 (09:59→17:04)
[2017-01-30] MEDS: VIT B CMPLX 3/FA/VIT C/BIOTIN 1 TAB TABLET PO SCH (09:59)
[2017-01-30] MEDS: HEPARIN SODIUM, PORCINE 5000 UNITS/1 ML VIAL SQ SCH ×2 (09:59→20:21)
--- NOTE | 2017-01-30 16:00 | NUR ---
INTERDISCIPLINARY PLAN OF CARE CONFERENCE was held today. Resident's boyfriend John unable to attend. Dr. Morejon and the interdisciplinary team reviewed the current plan of care in detail, as well as treatments and medications. Nephrology will continue to be consulted in regards to the resident's blood pressure. Resident will continue with RNA program.
[2017-01-30] MEDS: LACTULOSE 10 G/15 ML UDC (PYXIS) GT PRN (20:22)
[2017-01-30] MEDS: INSULIN GLARGINE, 100 UNIT/ML CARTRIDGE SQ SCH (21:26)
[2017-01-31] VITALS (7 sets, daily range): BP systolic 150–172; BP diastolic 64–79
[2017-01-31] MEDS: BLOOD SUGAR DIAGNOSTIC 1 EACH STRIP IN SCH ×4 (00:12→17:52)
[2017-01-31] MEDS: METOCLOPRAMIDE HCL 10 MG/10 ML UDC GT SCH ×4 (00:12→17:52)
[2017-01-31] MEDS: CLONIDINE HCL 0.2 MG TABLET GT PRN ×2 (00:13→06:23)
[2017-01-31] MEDS: INSULIN REGULAR, HUMAN 100 UNIT/ML 3 ML VIAL SQ PRN ×3 (00:14→17:51)
[2017-01-31] MEDS: IPRATROPIUM NEB FS 0.5 MG/2.5 ML AMPUL.NEB NEB SCH ×4 (00:52→19:30)
[2017-01-31] MEDS: ALBUTEROL FS 2.5 MG/3 ML VIAL.NEB NEB SCH ×4 (00:52→19:30)
[2017-01-31] MEDS: RENAL NOVASOURCE 1,000 ML BOTTLE GT PRN (05:10)
[2017-01-31] MEDS: VIT B CMPLX 3/FA/VIT C/BIOTIN 1 TAB TABLET PO SCH (08:22)
[2017-01-31] MEDS: POLYVINYL ALCOHOL 15 ML BOTTLE EACHEYE SCH ×2 (08:22→21:02)
[2017-01-31] MEDS: ESOMEPRAZOLE MAGNESIUM 40 MG GT SCH (08:22)
[2017-01-31] MEDS: PROSOURCE / PROSTAT (PYXIS) 30 ML UDC GT SCH ×3 (08:22→17:52)
[2017-01-31] MEDS: ASCORBIC ACID 500 MG TABLET GT SCH (08:22)
[2017-01-31] MEDS: LACTOBACILLUS RHAMNOSUS GG 1 EACH CAP.SPRINK GT SCH ×2 (08:22→17:52)
[2017-01-31] MEDS: HEPARIN SODIUM, PORCINE 5000 UNITS/1 ML VIAL SQ SCH ×2 (08:23→21:03)
[2017-01-31] MEDS: HYDROCODONE/APAP 5/325MG 1 EACH TABLET GT SCH ×2 (14:30→21:03)
[2017-01-31] MEDS: DAKINS QUARTER STRENGTH (0.125%) 480 ML BOTTLE TOP SCH ×2 (15:00→21:36)
[2017-01-31] MEDS: Z GUARD REMEDY 2 OZ OINT TP SCH ×2 (15:00→21:37)
[2017-01-31] MEDS: Z GUARD REMEDY 4 OZ OINT TP SCH ×4 (15:00→21:37)
[2017-01-31] MEDS: CADEXOMER IODINE 40 GM TUBE TP SCH ×6 (15:00→21:37)
[2017-01-31] MEDS: NYSTATIN TOP POWDER 15 GM BOTTLE TP SCH ×8 (15:00→21:37)
[2017-01-31] MEDS: HYDROGEL DRESSING 90 GM TUBE TP SCH ×4 (15:00→21:37)
[2017-01-31] MEDS: hydrALAZINE HCL 25 MG TABLET GT SCH (17:52)
[2017-01-31] MEDS: INSULIN GLARGINE, 100 UNIT/ML CARTRIDGE SQ SCH (21:05)
[2017-01-31] MEDS: METOPROLOL TARTRATE 50 MG TABLET GT SCH (21:05)
[2017-02-01] VITALS: BP 186/75
[2017-02-01] MEDS: METOCLOPRAMIDE HCL 10 MG/10 ML UDC GT SCH ×5 (00:06→23:20)
[2017-02-01] MEDS: BLOOD SUGAR DIAGNOSTIC 1 EACH STRIP IN SCH ×5 (00:06→23:20)
[2017-02-01] MEDS: INSULIN REGULAR, HUMAN 100 UNIT/ML 3 ML VIAL SQ PRN ×5 (00:08→23:21)
[2017-02-01] MEDS: CLONIDINE HCL 0.2 MG TABLET GT PRN ×2 (00:08→23:50)
[2017-02-01 01:11] VITALS: BP 158/69
[2017-02-01] MEDS: ALBUTEROL FS 2.5 MG/3 ML VIAL.NEB NEB SCH ×4 (02:15→19:14)
[2017-02-01] MEDS: IPRATROPIUM NEB FS 0.5 MG/2.5 ML AMPUL.NEB NEB SCH ×4 (02:15→19:14)
[2017-02-01 06:08] VITALS: BP 159/77
[2017-02-01] MEDS: HYDROGEL DRESSING 90 GM TUBE TP SCH ×4 (09:00→21:00)
[2017-02-01] MEDS: Z GUARD REMEDY 4 OZ OINT TP SCH ×4 (09:00→21:00)
[2017-02-01] MEDS: DAKINS QUARTER STRENGTH (0.125%) 480 ML BOTTLE TOP SCH ×2 (09:00→21:00)
[2017-02-01] MEDS: NYSTATIN TOP POWDER 15 GM BOTTLE TP SCH ×8 (09:00→21:00)
[2017-02-01] MEDS: CADEXOMER IODINE 40 GM TUBE TP SCH ×6 (09:00→21:00)
[2017-02-01] MEDS: Z GUARD REMEDY 2 OZ OINT TP SCH ×2 (09:00→21:00)
[2017-02-01] MEDS: POLYVINYL ALCOHOL 15 ML BOTTLE EACHEYE SCH ×2 (09:33→21:00)
[2017-02-01] MEDS: ESOMEPRAZOLE MAGNESIUM 40 MG GT SCH (09:36)
[2017-02-01] MEDS: LACTOBACILLUS RHAMNOSUS GG 1 EACH CAP.SPRINK GT SCH ×2 (09:36→17:26)
[2017-02-01] MEDS: hydrALAZINE HCL 25 MG TABLET GT SCH ×2 (09:36→17:26)
[2017-02-01] MEDS: METOPROLOL TARTRATE 50 MG TABLET GT SCH ×2 (09:36→22:04)
[2017-02-01] MEDS: ASCORBIC ACID 500 MG TABLET GT SCH (09:37)
[2017-02-01] MEDS: VIT B CMPLX 3/FA/VIT C/BIOTIN 1 TAB TABLET PO SCH (09:37)
[2017-02-01] MEDS: HYDROCODONE/APAP 5/325MG 1 EACH TABLET GT SCH ×2 (09:37→21:00)
[2017-02-01] MEDS: PROSOURCE / PROSTAT (PYXIS) 30 ML UDC GT SCH ×3 (09:37→17:26)
[2017-02-01] MEDS: HEPARIN SODIUM, PORCINE 5000 UNITS/1 ML VIAL SQ SCH ×2 (09:37→21:00)
[2017-02-01 15:09] VITALS: BP 166/74
[2017-02-01 18:24] VITALS: BP 176/76
[2017-02-01] MEDS: INSULIN GLARGINE, 100 UNIT/ML CARTRIDGE SQ SCH (22:05)
[2017-02-01 22:07] VITALS: BP 162/70
[2017-02-02] VITALS: BP 142/68
[2017-02-02] MEDS: IPRATROPIUM NEB FS 0.5 MG/2.5 ML AMPUL.NEB NEB SCH ×4 (01:19→19:40)
[2017-02-02] MEDS: ALBUTEROL FS 2.5 MG/3 ML VIAL.NEB NEB SCH ×4 (01:19→19:40)
[2017-02-02] MEDS: RENAL NOVASOURCE 1,000 ML BOTTLE GT PRN (04:04)
[2017-02-02] MEDS: BLOOD SUGAR DIAGNOSTIC 1 EACH STRIP IN SCH ×4 (05:43→23:12)
[2017-02-02] MEDS: METOCLOPRAMIDE HCL 10 MG/10 ML UDC GT SCH ×4 (05:43→23:12)
[2017-02-02] MEDS: INSULIN REGULAR, HUMAN 100 UNIT/ML 3 ML VIAL SQ PRN ×4 (05:44→23:13)
[2017-02-02] MEDS: CLONIDINE HCL 0.2 MG TABLET GT PRN (05:47)
[2017-02-02 06:00] VITALS: BP 182/75
[2017-02-02 08:03] VITALS: BP 173/63
[2017-02-02] MEDS: LACTOBACILLUS RHAMNOSUS GG 1 EACH CAP.SPRINK GT SCH ×2 (09:15→17:45)
[2017-02-02] MEDS: hydrALAZINE HCL 25 MG TABLET GT SCH ×2 (09:15→17:45)
[2017-02-02] MEDS: ESOMEPRAZOLE MAGNESIUM 40 MG GT SCH (09:15)
[2017-02-02] MEDS: METOPROLOL TARTRATE 50 MG TABLET GT SCH ×2 (09:15→21:28)
[2017-02-02] MEDS: POLYVINYL ALCOHOL 15 ML BOTTLE EACHEYE SCH ×2 (09:15→20:14)
[2017-02-02] MEDS: PROSOURCE / PROSTAT (PYXIS) 30 ML UDC GT SCH ×3 (09:16→17:45)
[2017-02-02] MEDS: VIT B CMPLX 3/FA/VIT C/BIOTIN 1 TAB TABLET PO SCH (09:16)
[2017-02-02] MEDS: HYDROCODONE/APAP 5/325MG 1 EACH TABLET GT SCH ×2 (09:16→20:14)
[2017-02-02] MEDS: HEPARIN SODIUM, PORCINE 5000 UNITS/1 ML VIAL SQ SCH ×2 (09:16→20:14)
[2017-02-02] MEDS: ASCORBIC ACID 500 MG TABLET GT SCH (09:16)
[2017-02-02] MEDS: DAKINS QUARTER STRENGTH (0.125%) 480 ML BOTTLE TOP SCH ×2 (09:17→20:56)
[2017-02-02] MEDS: NYSTATIN TOP POWDER 15 GM BOTTLE TP SCH ×8 (09:17→20:56)
[2017-02-02] MEDS: Z GUARD REMEDY 4 OZ OINT TP SCH ×4 (09:17→20:57)
[2017-02-02] MEDS: Z GUARD REMEDY 2 OZ OINT TP SCH ×2 (09:17→20:56)
[2017-02-02] MEDS: CADEXOMER IODINE 40 GM TUBE TP SCH ×6 (09:17→20:56)
[2017-02-02] MEDS: HYDROGEL DRESSING 90 GM TUBE TP SCH ×2 (09:17→20:56)
[2017-02-02 14:06] VITALS: BP 168/70
[2017-02-02 18:51] VITALS: BP 163/87
[2017-02-02 20:06] VITALS: BP 160/78
[2017-02-02] MEDS: INSULIN GLARGINE, 100 UNIT/ML CARTRIDGE SQ SCH (21:28)
[2017-02-03 00:26] VITALS: BP 148/80
[2017-02-03] MEDS: ALBUTEROL FS 2.5 MG/3 ML VIAL.NEB NEB SCH ×4 (00:42→19:58)
[2017-02-03] MEDS: IPRATROPIUM NEB FS 0.5 MG/2.5 ML AMPUL.NEB NEB SCH ×4 (00:42→19:58)
[2017-02-03] MEDS: METOCLOPRAMIDE HCL 10 MG/10 ML UDC GT SCH ×4 (05:52→23:18)
[2017-02-03] MEDS: BLOOD SUGAR DIAGNOSTIC 1 EACH STRIP IN SCH ×4 (05:52→23:18)
[2017-02-03] MEDS: INSULIN REGULAR, HUMAN 100 UNIT/ML 3 ML VIAL SQ PRN ×3 (05:53→23:20)
[2017-02-03 06:18] VITALS: BP 150/76
[2017-02-03 07:49] VITALS: BP 182/79
[2017-02-03] MEDS: POLYVINYL ALCOHOL 15 ML BOTTLE EACHEYE SCH ×2 (08:56→20:39)
[2017-02-03] MEDS: LACTOBACILLUS RHAMNOSUS GG 1 EACH CAP.SPRINK GT SCH ×2 (08:56→17:44)
[2017-02-03] MEDS: PROSOURCE / PROSTAT (PYXIS) 30 ML UDC GT SCH ×3 (08:57→17:44)
[2017-02-03] MEDS: HYDROCODONE/APAP 5/325MG 1 EACH TABLET GT SCH ×2 (08:57→20:39)
[2017-02-03] MEDS: ESOMEPRAZOLE MAGNESIUM 40 MG GT SCH (08:57)
[2017-02-03] MEDS: VIT B CMPLX 3/FA/VIT C/BIOTIN 1 TAB TABLET PO SCH (08:57)
[2017-02-03] MEDS: ASCORBIC ACID 500 MG TABLET GT SCH (08:57)
[2017-02-03] MEDS: HEPARIN SODIUM, PORCINE 5000 UNITS/1 ML VIAL SQ SCH ×2 (08:58→20:39)
[2017-02-03] MEDS: DAKINS QUARTER STRENGTH (0.125%) 480 ML BOTTLE TOP SCH ×2 (09:03→21:17)
[2017-02-03] MEDS: HYDROGEL DRESSING 90 GM TUBE TP SCH ×2 (09:03→21:17)
[2017-02-03] MEDS: CADEXOMER IODINE 40 GM TUBE TP SCH ×6 (09:03→21:17)
[2017-02-03] MEDS: NYSTATIN TOP POWDER 15 GM BOTTLE TP SCH ×8 (09:04→21:17)
[2017-02-03] MEDS: Z GUARD REMEDY 2 OZ OINT TP SCH ×2 (09:04→21:17)
[2017-02-03] MEDS: Z GUARD REMEDY 4 OZ OINT TP SCH ×4 (09:04→21:18)
--- NOTE | 2017-02-03 10:35 | NUR ---
Resident given pain medicine prior to doing wound treatment at 8:57am, unable to re-assess pain due to resident off the unit for hemodialysis
[2017-02-03 16:21] VITALS: BP 153/78
[2017-02-03] MEDS: hydrALAZINE HCL 25 MG TABLET GT SCH (17:44)
--- NOTE | 2017-02-03 18:37 | NUR ---
Pt has no signs and symptoms of wound infection. Sacral wound appears clean, reddish in color, no foul odor, has scant amount of serosanguinous drainage. Treatment rendered. Pt's temp 97.2 F.
[2017-02-03 18:48] VITALS: BP 162/85
[2017-02-03 20:17] VITALS: BP 160/76
[2017-02-03] MEDS: INSULIN GLARGINE, 100 UNIT/ML CARTRIDGE SQ SCH (21:21)
[2017-02-03] MEDS: METOPROLOL TARTRATE 50 MG TABLET GT SCH (21:21)
[2017-02-04 00:08] VITALS: BP 154/82
[2017-02-04] MEDS: RENAL NOVASOURCE 1,000 ML BOTTLE GT PRN (01:15)
[2017-02-04] MEDS: ALBUTEROL FS 2.5 MG/3 ML VIAL.NEB NEB SCH ×4 (02:06→19:18)
[2017-02-04] MEDS: IPRATROPIUM NEB FS 0.5 MG/2.5 ML AMPUL.NEB NEB SCH ×4 (02:06→19:18)
[2017-02-04] MEDS: BLOOD SUGAR DIAGNOSTIC 1 EACH STRIP IN SCH ×4 (06:00→23:52)
[2017-02-04] MEDS: METOCLOPRAMIDE HCL 10 MG/10 ML UDC GT SCH ×4 (06:00→23:52)
[2017-02-04] MEDS: INSULIN REGULAR, HUMAN 100 UNIT/ML 3 ML VIAL SQ PRN ×4 (06:01→23:53)
[2017-02-04 06:13] VITALS: BP 146/76
[2017-02-04 07:53] VITALS: BP 174/78
[2017-02-04] MEDS: NYSTATIN TOP POWDER 15 GM BOTTLE TP SCH ×8 (09:00→21:51)
[2017-02-04] MEDS: HYDROCODONE/APAP 5/325MG 1 EACH TABLET GT SCH ×2 (09:00→21:05)
[2017-02-04] MEDS: VIT B CMPLX 3/FA/VIT C/BIOTIN 1 TAB TABLET PO SCH (09:00)
[2017-02-04] MEDS: ASCORBIC ACID 500 MG TABLET GT SCH (09:00)
[2017-02-04] MEDS: HYDROGEL DRESSING 90 GM TUBE TP SCH ×3 (09:00→21:50)
[2017-02-04] MEDS: PROSOURCE / PROSTAT (PYXIS) 30 ML UDC GT SCH ×3 (09:00→17:25)
[2017-02-04] MEDS: DAKINS QUARTER STRENGTH (0.125%) 480 ML BOTTLE TOP SCH ×2 (09:00→21:50)
[2017-02-04] MEDS: ESOMEPRAZOLE MAGNESIUM 40 MG GT SCH (09:00)
[2017-02-04] MEDS: hydrALAZINE HCL 25 MG TABLET GT SCH ×2 (09:00→17:25)
[2017-02-04] MEDS: HEPARIN SODIUM, PORCINE 5000 UNITS/1 ML VIAL SQ SCH ×2 (09:00→21:05)
[2017-02-04] MEDS: METOPROLOL TARTRATE 50 MG TABLET GT SCH ×2 (09:00→21:05)
[2017-02-04] MEDS: Z GUARD REMEDY 2 OZ OINT TP SCH ×2 (09:00→21:51)
[2017-02-04] MEDS: Z GUARD REMEDY 4 OZ OINT TP SCH ×4 (09:00→21:51)
[2017-02-04] MEDS: CADEXOMER IODINE 40 GM TUBE TP SCH ×6 (09:00→21:51)
[2017-02-04] MEDS: LACTOBACILLUS RHAMNOSUS GG 1 EACH CAP.SPRINK GT SCH ×2 (09:00→17:25)
[2017-02-04] MEDS: POLYVINYL ALCOHOL 15 ML BOTTLE EACHEYE SCH ×2 (09:00→21:04)
[2017-02-04] MEDS: LACTULOSE 10 G/15 ML UDC (PYXIS) GT PRN (12:10)
[2017-02-04 16:15] VITALS: BP 174/78
[2017-02-04 18:28] VITALS: BP 184/79
[2017-02-04] MEDS: INSULIN GLARGINE, 100 UNIT/ML CARTRIDGE SQ SCH (21:06)
[2017-02-04 22:27] VITALS: BP 164/79
[2017-02-05 00:06] VITALS: BP 152/84
[2017-02-05] MEDS: IPRATROPIUM NEB FS 0.5 MG/2.5 ML AMPUL.NEB NEB SCH ×4 (01:15→20:14)
[2017-02-05] MEDS: ALBUTEROL FS 2.5 MG/3 ML VIAL.NEB NEB SCH ×4 (01:15→20:14)
[2017-02-05] MEDS: METOCLOPRAMIDE HCL 10 MG/10 ML UDC GT SCH ×4 (05:29→23:48)
[2017-02-05] MEDS: BLOOD SUGAR DIAGNOSTIC 1 EACH STRIP IN SCH ×4 (06:05→23:48)
[2017-02-05] MEDS: INSULIN REGULAR, HUMAN 100 UNIT/ML 3 ML VIAL SQ PRN ×3 (06:07→23:49)
[2017-02-05 06:15] VITALS: BP 154/80
[2017-02-05 07:35] VITALS: BP 159/78
[2017-02-05] MEDS: ESOMEPRAZOLE MAGNESIUM 40 MG GT SCH (08:32)
[2017-02-05] MEDS: PROSOURCE / PROSTAT (PYXIS) 30 ML UDC GT SCH ×3 (08:32→17:26)
[2017-02-05] MEDS: VIT B CMPLX 3/FA/VIT C/BIOTIN 1 TAB TABLET PO SCH (08:32)
[2017-02-05] MEDS: LACTOBACILLUS RHAMNOSUS GG 1 EACH CAP.SPRINK GT SCH ×2 (08:32→17:22)
[2017-02-05] MEDS: ASCORBIC ACID 500 MG TABLET GT SCH (08:32)
[2017-02-05] MEDS: POLYVINYL ALCOHOL 15 ML BOTTLE EACHEYE SCH ×2 (08:32→21:43)
[2017-02-05] MEDS: HEPARIN SODIUM, PORCINE 5000 UNITS/1 ML VIAL SQ SCH ×2 (08:32→21:44)
[2017-02-05] MEDS: CADEXOMER IODINE 40 GM TUBE TP SCH ×6 (09:00→21:48)
[2017-02-05] MEDS: HYDROCODONE/APAP 5/325MG 1 EACH TABLET GT SCH ×2 (14:20→21:48)
[2017-02-05] MEDS: NYSTATIN TOP POWDER 15 GM BOTTLE TP SCH ×8 (15:00→21:48)
[2017-02-05] MEDS: DAKINS QUARTER STRENGTH (0.125%) 480 ML BOTTLE TOP SCH ×2 (15:00→21:44)
[2017-02-05] MEDS: Z GUARD REMEDY 2 OZ OINT TP SCH ×2 (15:30→21:48)
[2017-02-05] MEDS: Z GUARD REMEDY 4 OZ OINT TP SCH ×4 (15:30→21:49)
[2017-02-05] MEDS: HYDROGEL DRESSING 90 GM TUBE TP SCH ×4 (15:30→21:48)
[2017-02-05] MEDS: hydrALAZINE HCL 25 MG TABLET GT SCH (17:22)
[2017-02-05] MEDS: LACTULOSE 10 G/15 ML UDC (PYXIS) GT PRN (17:27)
[2017-02-05 18:14] VITALS: BP 169/72
[2017-02-05 18:15] VITALS: BP_SYST 165; BP_SYST 169; BP_DIAS 72; BP_DIAS 74
--- NOTE | 2017-02-05 19:00 | NUR ---
Pt has no signs and symptoms of wound infection, no drainage noted. Pt afebrile.
[2017-02-05 19:57] VITALS: BP 166/79
[2017-02-05] MEDS: METOPROLOL TARTRATE 50 MG TABLET GT SCH (21:45)
[2017-02-05] MEDS: INSULIN GLARGINE, 100 UNIT/ML CARTRIDGE SQ SCH (21:45)
[2017-02-06] VITALS: BP 121/74
[2017-02-06] MEDS: CLONIDINE HCL 0.2 MG TABLET GT PRN (01:19)
[2017-02-06] MEDS: ALBUTEROL FS 2.5 MG/3 ML VIAL.NEB NEB SCH ×4 (01:58→20:13)
[2017-02-06] MEDS: IPRATROPIUM NEB FS 0.5 MG/2.5 ML AMPUL.NEB NEB SCH ×4 (01:58→20:13)
[2017-02-06] MEDS: METOCLOPRAMIDE HCL 10 MG/10 ML UDC GT SCH ×3 (05:54→17:21)
[2017-02-06] MEDS: BLOOD SUGAR DIAGNOSTIC 1 EACH STRIP IN SCH ×3 (05:54→17:21)
[2017-02-06] MEDS: INSULIN REGULAR, HUMAN 100 UNIT/ML 3 ML VIAL SQ PRN ×3 (05:55→17:22)
[2017-02-06 06:00] VITALS: BP 155/80
[2017-02-06] MEDS: RENAL NOVASOURCE 1,000 ML BOTTLE GT PRN (06:17)
--- NOTE | 2017-02-06 06:55 | NUR ---
All tx done, Sacral wound appears improving, reddish in color, no foul odor, has scant amount of serosanguinous drainage. Will continue to monitor for any changes in conditon.
[2017-02-06 07:32] VITALS: BP 156/80
[2017-02-06] MEDS: CADEXOMER IODINE 40 GM TUBE TP SCH ×6 (09:00→21:36)
[2017-02-06] MEDS: Z GUARD REMEDY 2 OZ OINT TP SCH ×2 (09:00→21:36)
[2017-02-06] MEDS: POLYVINYL ALCOHOL 15 ML BOTTLE EACHEYE SCH ×2 (09:08→21:33)
[2017-02-06] MEDS: LACTOBACILLUS RHAMNOSUS GG 1 EACH CAP.SPRINK GT SCH ×2 (09:08→17:21)
[2017-02-06] MEDS: hydrALAZINE HCL 25 MG TABLET GT SCH ×2 (09:08→17:21)
[2017-02-06] MEDS: METOPROLOL TARTRATE 50 MG TABLET GT SCH ×2 (09:09→21:37)
[2017-02-06] MEDS: HYDROCODONE/APAP 5/325MG 1 EACH TABLET GT SCH ×2 (09:10→21:35)
[2017-02-06] MEDS: ESOMEPRAZOLE MAGNESIUM 40 MG GT SCH (09:10)
[2017-02-06] MEDS: ASCORBIC ACID 500 MG TABLET GT SCH (09:10)
[2017-02-06] MEDS: PROSOURCE / PROSTAT (PYXIS) 30 ML UDC GT SCH ×3 (09:10→17:21)
[2017-02-06] MEDS: HEPARIN SODIUM, PORCINE 5000 UNITS/1 ML VIAL SQ SCH ×2 (09:11→21:35)
[2017-02-06] MEDS: VIT B CMPLX 3/FA/VIT C/BIOTIN 1 TAB TABLET PO SCH (09:11)
[2017-02-06] MEDS: DAKINS QUARTER STRENGTH (0.125%) 480 ML BOTTLE TOP SCH ×2 (10:00→21:35)
[2017-02-06] MEDS: Z GUARD REMEDY 4 OZ OINT TP SCH ×4 (10:00→21:36)
[2017-02-06] MEDS: HYDROGEL DRESSING 90 GM TUBE TP SCH ×4 (10:00→21:35)
[2017-02-06] MEDS: NYSTATIN TOP POWDER 15 GM BOTTLE TP SCH ×8 (10:00→21:36)
[2017-02-06 15:36] VITALS: BP 156/80
[2017-02-06] MEDS: LACTULOSE 10 G/15 ML UDC (PYXIS) GT PRN (17:23)
[2017-02-06 21:38] VITALS: BP 136/76
[2017-02-06] MEDS: INSULIN GLARGINE, 100 UNIT/ML CARTRIDGE SQ SCH (21:38)
--- NOTE | 2017-02-06 23:00 | NUR ---
sacral wound tx rendered. no s/s infecton. no foul odor. scant clear drainage noted. pt tolerated tx well. afebrile at this time. will continue to monitor for changes.
[2017-02-06 23:59] VITALS: BP 160/75
[2017-02-07 00:01] VITALS: BP 160/75
[2017-02-07] MEDS: INSULIN REGULAR, HUMAN 100 UNIT/ML 3 ML VIAL SQ PRN ×3 (00:02→18:15)
[2017-02-07] MEDS: ALBUTEROL FS 2.5 MG/3 ML VIAL.NEB NEB SCH ×4 (01:13→19:30)
[2017-02-07] MEDS: IPRATROPIUM NEB FS 0.5 MG/2.5 ML AMPUL.NEB NEB SCH ×4 (01:13→19:30)
[2017-02-07] MEDS: METOCLOPRAMIDE HCL 10 MG/10 ML UDC GT SCH ×4 (05:42→17:33)
[2017-02-07] MEDS: RENAL NOVASOURCE 1,000 ML BOTTLE GT PRN (05:42)
[2017-02-07] MEDS: BLOOD SUGAR DIAGNOSTIC 1 EACH STRIP IN SCH ×4 (05:42→18:14)
[2017-02-07 06:25] VITALS: BP 157/76
[2017-02-07 07:24] VITALS: BP 150/66
[2017-02-07] MEDS: VIT B CMPLX 3/FA/VIT C/BIOTIN 1 TAB TABLET PO SCH (08:32)
[2017-02-07] MEDS: HEPARIN SODIUM, PORCINE 5000 UNITS/1 ML VIAL SQ SCH ×2 (08:32→21:39)
[2017-02-07] MEDS: POLYVINYL ALCOHOL 15 ML BOTTLE EACHEYE SCH ×2 (08:32→21:38)
[2017-02-07] MEDS: LACTOBACILLUS RHAMNOSUS GG 1 EACH CAP.SPRINK GT SCH ×2 (08:32→17:33)
[2017-02-07] MEDS: ESOMEPRAZOLE MAGNESIUM 40 MG GT SCH (08:32)
[2017-02-07] MEDS: PROSOURCE / PROSTAT (PYXIS) 30 ML UDC GT SCH ×3 (08:32→17:33)
[2017-02-07] MEDS: ASCORBIC ACID 500 MG TABLET GT SCH (08:32)
[2017-02-07 14:10] VITALS: BP 109/53
[2017-02-07] MEDS: HYDROCODONE/APAP 5/325MG 1 EACH TABLET GT SCH ×2 (14:48→21:38)
[2017-02-07] MEDS: HYDROGEL DRESSING 90 GM TUBE TP SCH ×4 (15:20→21:39)
[2017-02-07] MEDS: NYSTATIN TOP POWDER 15 GM BOTTLE TP SCH ×8 (15:20→21:40)
[2017-02-07] MEDS: CADEXOMER IODINE 40 GM TUBE TP SCH ×6 (15:20→21:39)
[2017-02-07] MEDS: Z GUARD REMEDY 4 OZ OINT TP SCH ×4 (15:20→21:40)
[2017-02-07] MEDS: DAKINS QUARTER STRENGTH (0.125%) 480 ML BOTTLE TOP SCH ×2 (15:20→21:39)
[2017-02-07] MEDS: Z GUARD REMEDY 2 OZ OINT TP SCH ×2 (15:20→21:40)
[2017-02-07] MEDS: hydrALAZINE HCL 25 MG TABLET GT SCH (17:00)
[2017-02-07 18:00] VITALS: BP 107/63
[2017-02-07 19:47] VITALS: BP 148/86
[2017-02-07] MEDS: METOPROLOL TARTRATE 50 MG TABLET GT SCH (21:40)
[2017-02-07] MEDS: INSULIN GLARGINE, 100 UNIT/ML CARTRIDGE SQ SCH (21:41)
--- NOTE | 2017-02-07 22:45 | NUR ---
sacral tx rendered. pt tolerated well. no s/s of infection. scant serosanguineous drainage noted. pt afebrile.
[2017-02-08] MEDS: BLOOD SUGAR DIAGNOSTIC 1 EACH STRIP IN SCH ×5 (00:17→23:51)
[2017-02-08] MEDS: METOCLOPRAMIDE HCL 10 MG/10 ML UDC GT SCH ×5 (00:17→23:51)
[2017-02-08] MEDS: INSULIN REGULAR, HUMAN 100 UNIT/ML 3 ML VIAL SQ PRN ×5 (00:19→23:53)
[2017-02-08 00:20] VITALS: BP 107/60
[2017-02-08] MEDS: ALBUTEROL FS 2.5 MG/3 ML VIAL.NEB NEB SCH ×4 (01:30→19:30)
[2017-02-08] MEDS: IPRATROPIUM NEB FS 0.5 MG/2.5 ML AMPUL.NEB NEB SCH ×4 (01:30→19:30)
[2017-02-08] MEDS: RENAL NOVASOURCE 1,000 ML BOTTLE GT PRN (05:34)
[2017-02-08 06:16] VITALS: BP 157/77
[2017-02-08 07:39] VITALS: BP 120/66
[2017-02-08] MEDS: LACTOBACILLUS RHAMNOSUS GG 1 EACH CAP.SPRINK GT SCH ×2 (08:49→16:39)
[2017-02-08] MEDS: POLYVINYL ALCOHOL 15 ML BOTTLE EACHEYE SCH ×2 (08:49→21:12)
[2017-02-08] MEDS: hydrALAZINE HCL 25 MG TABLET GT SCH ×2 (08:49→16:39)
[2017-02-08] MEDS: VIT B CMPLX 3/FA/VIT C/BIOTIN 1 TAB TABLET PO SCH (08:50)
[2017-02-08] MEDS: ASCORBIC ACID 500 MG TABLET GT SCH (08:50)
[2017-02-08] MEDS: PROSOURCE / PROSTAT (PYXIS) 30 ML UDC GT SCH ×3 (08:50→16:39)
[2017-02-08] MEDS: ESOMEPRAZOLE MAGNESIUM 40 MG GT SCH (08:50)
[2017-02-08] MEDS: METOPROLOL TARTRATE 50 MG TABLET GT SCH ×2 (08:50→21:13)
[2017-02-08] MEDS: HEPARIN SODIUM, PORCINE 5000 UNITS/1 ML VIAL SQ SCH ×2 (08:51→21:12)
[2017-02-08] MEDS: HYDROGEL DRESSING 90 GM TUBE TP SCH ×4 (09:00→21:12)
[2017-02-08] MEDS: NYSTATIN TOP POWDER 15 GM BOTTLE TP SCH ×8 (09:00→21:13)
[2017-02-08] MEDS: DAKINS QUARTER STRENGTH (0.125%) 480 ML BOTTLE TOP SCH ×2 (09:00→21:12)
[2017-02-08] MEDS: Z GUARD REMEDY 2 OZ OINT TP SCH ×2 (09:00→21:13)
[2017-02-08] MEDS: CADEXOMER IODINE 40 GM TUBE TP SCH ×6 (09:00→21:13)
[2017-02-08] MEDS: Z GUARD REMEDY 4 OZ OINT TP SCH ×4 (09:00→21:13)
[2017-02-08] MEDS: HYDROCODONE/APAP 5/325MG 1 EACH TABLET GT SCH ×2 (09:04→21:14)
[2017-02-08 15:21] VITALS: BP 120/66
[2017-02-08 18:31] VITALS: BP 111/53
--- NOTE | 2017-02-08 18:32 | NUR ---
Patients' sacral wound continues to heal, noted scant drainage only, no foul order, no fever, no s/s of wound infection at this time. Continue to turn side to side for wound management, kept dry and clean at all times. Patient closely monitored.
[2017-02-08 19:48] VITALS: BP 112/66
[2017-02-08] MEDS: INSULIN GLARGINE, 100 UNIT/ML CARTRIDGE SQ SCH (21:14)
[2017-02-09 00:40] VITALS: BP 133/72
[2017-02-09] MEDS: IPRATROPIUM NEB FS 0.5 MG/2.5 ML AMPUL.NEB NEB SCH ×4 (01:30→20:29)
[2017-02-09] MEDS: ALBUTEROL FS 2.5 MG/3 ML VIAL.NEB NEB SCH ×4 (01:30→20:29)
[2017-02-09] MEDS: METOCLOPRAMIDE HCL 10 MG/10 ML UDC GT SCH ×4 (05:54→23:07)
[2017-02-09] MEDS: BLOOD SUGAR DIAGNOSTIC 1 EACH STRIP IN SCH ×3 (05:54→18:09)
[2017-02-09] MEDS: RENAL NOVASOURCE 1,000 ML BOTTLE GT PRN (05:55)
[2017-02-09] MEDS: INSULIN REGULAR, HUMAN 100 UNIT/ML 3 ML VIAL SQ PRN ×3 (05:55→18:10)
[2017-02-09 06:15] VITALS: BP 152/75
[2017-02-09 08:25] VITALS: BP 146/64
[2017-02-09] MEDS: hydrALAZINE HCL 25 MG TABLET GT SCH ×2 (09:47→17:58)
[2017-02-09] MEDS: POLYVINYL ALCOHOL 15 ML BOTTLE EACHEYE SCH ×2 (09:47→22:54)
[2017-02-09] MEDS: ESOMEPRAZOLE MAGNESIUM 40 MG GT SCH (09:47)
[2017-02-09] MEDS: METOPROLOL TARTRATE 50 MG TABLET GT SCH ×2 (09:47→22:59)
[2017-02-09] MEDS: LACTOBACILLUS RHAMNOSUS GG 1 EACH CAP.SPRINK GT SCH ×2 (09:47→17:58)
[2017-02-09] MEDS: PROSOURCE / PROSTAT (PYXIS) 30 ML UDC GT SCH ×3 (09:48→17:58)
[2017-02-09] MEDS: HYDROGEL DRESSING 90 GM TUBE TP SCH ×4 (09:48→21:00)
[2017-02-09] MEDS: VIT B CMPLX 3/FA/VIT C/BIOTIN 1 TAB TABLET PO SCH (09:48)
[2017-02-09] MEDS: DAKINS QUARTER STRENGTH (0.125%) 480 ML BOTTLE TOP SCH ×2 (09:48→21:00)
[2017-02-09] MEDS: HEPARIN SODIUM, PORCINE 5000 UNITS/1 ML VIAL SQ SCH ×2 (09:48→21:00)
[2017-02-09] MEDS: ASCORBIC ACID 500 MG TABLET GT SCH (09:48)
[2017-02-09] MEDS: HYDROCODONE/APAP 5/325MG 1 EACH TABLET GT SCH ×2 (09:48→21:00)
[2017-02-09] MEDS: CADEXOMER IODINE 40 GM TUBE TP SCH ×6 (09:50→21:00)
[2017-02-09] MEDS: Z GUARD REMEDY 4 OZ OINT TP SCH ×4 (09:50→21:00)
[2017-02-09] MEDS: NYSTATIN TOP POWDER 15 GM BOTTLE TP SCH ×8 (09:50→21:00)
[2017-02-09] MEDS: Z GUARD REMEDY 2 OZ OINT TP SCH ×2 (09:50→21:00)
[2017-02-09 16:00] VITALS: BP 148/79
[2017-02-09 18:41] VITALS: BP 151/85
[2017-02-09] MEDS: INSULIN GLARGINE, 100 UNIT/ML CARTRIDGE SQ SCH (22:00)
[2017-02-10] VITALS: BP 136/64
[2017-02-10] MEDS: BLOOD SUGAR DIAGNOSTIC 1 EACH STRIP IN SCH ×5 (01:17→23:09)
[2017-02-10] MEDS: INSULIN REGULAR, HUMAN 100 UNIT/ML 3 ML VIAL SQ PRN ×4 (01:22→23:10)
[2017-02-10] MEDS: IPRATROPIUM NEB FS 0.5 MG/2.5 ML AMPUL.NEB NEB SCH ×4 (02:27→19:56)
[2017-02-10] MEDS: ALBUTEROL FS 2.5 MG/3 ML VIAL.NEB NEB SCH ×4 (02:27→19:56)
[2017-02-10] MEDS: METOCLOPRAMIDE HCL 10 MG/10 ML UDC GT SCH ×4 (05:29→23:09)
[2017-02-10 06:00] VITALS: BP 155/77
[2017-02-10] MEDS: RENAL NOVASOURCE 1,000 ML BOTTLE GT PRN (06:00)
[2017-02-10 07:59] VITALS: BP 146/72
[2017-02-10] MEDS: PROSOURCE / PROSTAT (PYXIS) 30 ML UDC GT SCH ×3 (08:39→16:44)
[2017-02-10] MEDS: LACTOBACILLUS RHAMNOSUS GG 1 EACH CAP.SPRINK GT SCH ×2 (08:39→16:44)
[2017-02-10] MEDS: ESOMEPRAZOLE MAGNESIUM 40 MG GT SCH (08:39)
[2017-02-10] MEDS: POLYVINYL ALCOHOL 15 ML BOTTLE EACHEYE SCH ×2 (08:39→21:09)
[2017-02-10] MEDS: ASCORBIC ACID 500 MG TABLET GT SCH (08:39)
[2017-02-10] MEDS: VIT B CMPLX 3/FA/VIT C/BIOTIN 1 TAB TABLET PO SCH (08:40)
[2017-02-10] MEDS: HEPARIN SODIUM, PORCINE 5000 UNITS/1 ML VIAL SQ SCH ×2 (08:41→21:10)
--- NOTE | 2017-02-10 10:15 | NUR ---
Resident at the dialysis center, MD Morejon made rounds no new order given.
[2017-02-10] MEDS: HYDROCODONE/APAP 5/325MG 1 EACH TABLET GT SCH ×2 (15:05→21:26)
[2017-02-10] MEDS: Z GUARD REMEDY 2 OZ OINT TP SCH ×2 (15:30→21:12)
[2017-02-10] MEDS: CADEXOMER IODINE 40 GM TUBE TP SCH ×6 (15:30→21:11)
[2017-02-10] MEDS: NYSTATIN TOP POWDER 15 GM BOTTLE TP SCH ×8 (15:30→21:12)
[2017-02-10] MEDS: HYDROGEL DRESSING 90 GM TUBE TP SCH ×4 (15:30→21:11)
[2017-02-10] MEDS: DAKINS QUARTER STRENGTH (0.125%) 480 ML BOTTLE TOP SCH ×2 (15:30→21:11)
[2017-02-10] MEDS: Z GUARD REMEDY 4 OZ OINT TP SCH ×4 (15:30→21:12)
[2017-02-10] MEDS: hydrALAZINE HCL 25 MG TABLET GT SCH (16:44)
[2017-02-10 18:37] VITALS: BP 138/70
[2017-02-10 20:43] VITALS: BP 118/52
[2017-02-10] MEDS: METOPROLOL TARTRATE 50 MG TABLET GT SCH (21:17)
[2017-02-10] MEDS: INSULIN GLARGINE, 100 UNIT/ML CARTRIDGE SQ SCH (23:00)
[2017-02-11] VITALS: BP 132/68
[2017-02-11] MEDS: ALBUTEROL FS 2.5 MG/3 ML VIAL.NEB NEB SCH ×4 (00:50→19:37)
[2017-02-11] MEDS: IPRATROPIUM NEB FS 0.5 MG/2.5 ML AMPUL.NEB NEB SCH ×4 (00:50→19:37)
[2017-02-11 06:00] VITALS: BP 131/96
[2017-02-11] MEDS: RENAL NOVASOURCE 1,000 ML BOTTLE GT PRN (06:08)
[2017-02-11] MEDS: BLOOD SUGAR DIAGNOSTIC 1 EACH STRIP IN SCH ×3 (06:08→18:31)
[2017-02-11] MEDS: INSULIN REGULAR, HUMAN 100 UNIT/ML 3 ML VIAL SQ PRN ×3 (06:09→18:31)
[2017-02-11] MEDS: METOCLOPRAMIDE HCL 10 MG/10 ML UDC GT SCH ×3 (06:10→18:31)
[2017-02-11 07:43] VITALS: BP 112/71
[2017-02-11] MEDS: hydrALAZINE HCL 25 MG TABLET GT SCH ×2 (09:00→17:00)
[2017-02-11] MEDS: POLYVINYL ALCOHOL 15 ML BOTTLE EACHEYE SCH ×2 (09:52→21:59)
[2017-02-11] MEDS: LACTOBACILLUS RHAMNOSUS GG 1 EACH CAP.SPRINK GT SCH ×2 (09:53→17:00)
[2017-02-11] MEDS: METOPROLOL TARTRATE 50 MG TABLET GT SCH ×2 (09:53→22:08)
[2017-02-11] MEDS: ESOMEPRAZOLE MAGNESIUM 40 MG GT SCH (09:54)
[2017-02-11] MEDS: ASCORBIC ACID 500 MG TABLET GT SCH (09:55)
[2017-02-11] MEDS: PROSOURCE / PROSTAT (PYXIS) 30 ML UDC GT SCH ×3 (09:55→17:00)
[2017-02-11] MEDS: VIT B CMPLX 3/FA/VIT C/BIOTIN 1 TAB TABLET PO SCH (09:55)
[2017-02-11] MEDS: HEPARIN SODIUM, PORCINE 5000 UNITS/1 ML VIAL SQ SCH ×2 (09:56→21:59)
[2017-02-11 12:00] VITALS: BP 112/71
[2017-02-11] MEDS: HYDROCODONE/APAP 5/325MG 1 EACH TABLET GT SCH ×2 (12:21→21:59)
[2017-02-11] MEDS: HYDROGEL DRESSING 90 GM TUBE TP SCH ×4 (13:30→21:59)
[2017-02-11] MEDS: Z GUARD REMEDY 4 OZ OINT TP SCH ×4 (13:30→21:59)
[2017-02-11] MEDS: DAKINS QUARTER STRENGTH (0.125%) 480 ML BOTTLE TOP SCH ×2 (13:30→21:59)
[2017-02-11] MEDS: NYSTATIN TOP POWDER 15 GM BOTTLE TP SCH ×8 (13:30→21:59)
[2017-02-11] MEDS: Z GUARD REMEDY 2 OZ OINT TP SCH ×2 (13:30→21:59)
[2017-02-11] MEDS: CADEXOMER IODINE 40 GM TUBE TP SCH ×6 (13:30→21:59)
[2017-02-11 18:00] VITALS: BP 104/56
[2017-02-11 20:36] VITALS: BP 139/85
[2017-02-11] MEDS: INSULIN GLARGINE, 100 UNIT/ML CARTRIDGE SQ SCH (22:00)
[2017-02-12] VITALS: BP 124/63
[2017-02-12] MEDS: BLOOD SUGAR DIAGNOSTIC 1 EACH STRIP IN SCH ×4 (00:06→18:40)
[2017-02-12] MEDS: METOCLOPRAMIDE HCL 10 MG/10 ML UDC GT SCH ×4 (00:06→18:40)
[2017-02-12] MEDS: INSULIN REGULAR, HUMAN 100 UNIT/ML 3 ML VIAL SQ PRN ×3 (00:08→18:42)
[2017-02-12] MEDS: IPRATROPIUM NEB FS 0.5 MG/2.5 ML AMPUL.NEB NEB SCH ×4 (02:11→19:53)
[2017-02-12] MEDS: ALBUTEROL FS 2.5 MG/3 ML VIAL.NEB NEB SCH ×4 (02:11→19:53)
[2017-02-12] MEDS: RENAL NOVASOURCE 1,000 ML BOTTLE GT PRN (06:06)
[2017-02-12 06:26] VITALS: BP 157/76
[2017-02-12] MEDS: PROSOURCE / PROSTAT (PYXIS) 30 ML UDC GT SCH ×3 (08:11→17:00)
[2017-02-12] MEDS: VIT B CMPLX 3/FA/VIT C/BIOTIN 1 TAB TABLET PO SCH (08:11)
[2017-02-12] MEDS: LACTOBACILLUS RHAMNOSUS GG 1 EACH CAP.SPRINK GT SCH ×2 (08:11→17:00)
[2017-02-12] MEDS: ESOMEPRAZOLE MAGNESIUM 40 MG GT SCH (08:11)
[2017-02-12] MEDS: POLYVINYL ALCOHOL 15 ML BOTTLE EACHEYE SCH ×2 (08:11→21:55)
[2017-02-12] MEDS: ASCORBIC ACID 500 MG TABLET GT SCH (08:11)
[2017-02-12] MEDS: HEPARIN SODIUM, PORCINE 5000 UNITS/1 ML VIAL SQ SCH ×2 (08:13→21:55)
[2017-02-12 09:22] VITALS: BP 168/79
[2017-02-12] MEDS: NYSTATIN TOP POWDER 15 GM BOTTLE TP SCH ×6 (10:00→21:55)
[2017-02-12] MEDS: CADEXOMER IODINE 40 GM TUBE TP SCH ×6 (14:00→21:55)
[2017-02-12] MEDS: Z GUARD REMEDY 2 OZ OINT TP SCH ×2 (14:00→21:55)
[2017-02-12] MEDS: DAKINS QUARTER STRENGTH (0.125%) 480 ML BOTTLE TOP SCH ×2 (14:00→21:55)
[2017-02-12] MEDS: Z GUARD REMEDY 4 OZ OINT TP SCH ×4 (14:00→21:55)
[2017-02-12] MEDS: HYDROGEL DRESSING 90 GM TUBE TP SCH ×4 (14:00→21:55)
[2017-02-12] MEDS: HYDROCODONE/APAP 5/325MG 1 EACH TABLET GT SCH ×3 (14:30→21:55)
[2017-02-12] MEDS: hydrALAZINE HCL 25 MG TABLET GT SCH (17:00)
--- NOTE | 2017-02-12 17:00 | NUR ---
Patient awake, dependent on mech vent, tolerating well. Had dialysis today, tolerated well. Sacral wound continues to heal, no s/s of infection, with on going treatment. Still on contact isolation, all precautions observed. Patient afebrile today. Noted 2 small skin tears to right lower buttock, RETAIL GENERAL MANAGER made aware, with treatment order. Noted and carried out. Patient closely monitored.
[2017-02-12 19:23] VITALS: BP 150/70
[2017-02-12] MEDS ORDERED: NEOMY SULF/BACITRAC ZN/POLY 15 GM TUBE TP PRN (19:30)
[2017-02-12 19:36] VITALS: BP 156/88
[2017-02-12] MEDS: METOPROLOL TARTRATE 50 MG TABLET GT SCH (22:06)
[2017-02-12] MEDS: INSULIN GLARGINE, 100 UNIT/ML CARTRIDGE SQ SCH (22:07)
[2017-02-13] VITALS: BP 142/83
[2017-02-13] MEDS: BLOOD SUGAR DIAGNOSTIC 1 EACH STRIP IN SCH ×4 (00:17→18:19)
[2017-02-13] MEDS: METOCLOPRAMIDE HCL 10 MG/10 ML UDC GT SCH ×4 (00:17→18:18)
[2017-02-13] MEDS: INSULIN REGULAR, HUMAN 100 UNIT/ML 3 ML VIAL SQ PRN ×4 (00:18→18:20)
[2017-02-13] MEDS: IPRATROPIUM NEB FS 0.5 MG/2.5 ML AMPUL.NEB NEB SCH ×4 (00:39→19:14)
[2017-02-13] MEDS: ALBUTEROL FS 2.5 MG/3 ML VIAL.NEB NEB SCH ×4 (00:39→19:14)
[2017-02-13] MEDS: RENAL NOVASOURCE 1,000 ML BOTTLE GT PRN (05:32)
[2017-02-13 06:19] VITALS: BP 154/86
[2017-02-13 07:45] VITALS: BP 155/83
[2017-02-13] MEDS: POLYVINYL ALCOHOL 15 ML BOTTLE EACHEYE SCH ×2 (09:00→21:42)
[2017-02-13] MEDS: hydrALAZINE HCL 25 MG TABLET GT SCH ×2 (09:03→17:00)
[2017-02-13] MEDS: METOPROLOL TARTRATE 50 MG TABLET GT SCH ×2 (09:04→21:46)
[2017-02-13] MEDS: ASCORBIC ACID 500 MG TABLET GT SCH (09:05)
[2017-02-13] MEDS: PROSOURCE / PROSTAT (PYXIS) 30 ML UDC GT SCH ×3 (09:05→17:00)
[2017-02-13] MEDS: HEPARIN SODIUM, PORCINE 5000 UNITS/1 ML VIAL SQ SCH ×2 (09:06→21:43)
[2017-02-13] MEDS: VIT B CMPLX 3/FA/VIT C/BIOTIN 1 TAB TABLET PO SCH (09:25)
[2017-02-13] MEDS: LACTOBACILLUS RHAMNOSUS GG 1 EACH CAP.SPRINK GT SCH ×2 (09:25→17:00)
[2017-02-13] MEDS ORDERED: CADEXOMER IODINE 40 GM TUBE TP PRN (13:30)
[2017-02-13 13:50] VITALS: BP 140/84
[2017-02-13] MEDS: HYDROCODONE/APAP 5/325MG 1 EACH TABLET GT SCH ×2 (13:56→21:42)
--- NOTE | 2017-02-13 14:21 | NUR ---
IDT meeting held, family unable to attend the meeting. Reviewed current medication orders, treatment and labs. Resident's blood pressure has been under control. Resident will be re-weighed next week and attending physician will also be notified to document colonization of sacral wound so isolation can be d/c. No new orders for resident given during IDT meeting.
[2017-02-13] MEDS: HYDROGEL DRESSING 90 GM TUBE TP SCH ×4 (14:30→21:43)
[2017-02-13] MEDS: DAKINS QUARTER STRENGTH (0.125%) 480 ML BOTTLE TOP SCH ×2 (14:30→21:43)
[2017-02-13] MEDS: Z GUARD REMEDY 2 OZ OINT TP SCH ×2 (14:30→21:45)
[2017-02-13] MEDS: CADEXOMER IODINE 40 GM TUBE TP SCH ×6 (14:30→21:44)
[2017-02-13] MEDS: Z GUARD REMEDY 4 OZ OINT TP SCH ×4 (14:30→21:45)
--- NOTE | 2017-02-13 15:00 | NUR ---
Resident is alert and awake.wound care done.sacral wound is clean and periwound is intact.no serosanguineous secretions noted.continuing same treatment.no fever noticed.no signs and symptoms of infection.no fever.continue to monitor.
[2017-02-13 18:55] VITALS: BP 128/73
[2017-02-13 19:15] VITALS: BP 133/73
[2017-02-13] MEDS: NYSTATIN TOP POWDER 15 GM BOTTLE TP SCH (21:44)
[2017-02-13] MEDS: NEOMY SULF/BACITRAC ZN/POLY 15 GM TUBE TP SCH (21:45)
[2017-02-13] MEDS: INSULIN GLARGINE, 100 UNIT/ML CARTRIDGE SQ SCH (21:46)
[2017-02-14] VITALS: BP 108/57
[2017-02-14] MEDS: METOCLOPRAMIDE HCL 10 MG/10 ML UDC GT SCH ×4 (00:19→18:13)
[2017-02-14] MEDS: BLOOD SUGAR DIAGNOSTIC 1 EACH STRIP IN SCH ×4 (00:19→18:06)
[2017-02-14] MEDS: INSULIN REGULAR, HUMAN 100 UNIT/ML 3 ML VIAL SQ PRN ×3 (00:21→18:11)
[2017-02-14] MEDS: ALBUTEROL FS 2.5 MG/3 ML VIAL.NEB NEB SCH ×4 (01:25→19:45)
[2017-02-14] MEDS: IPRATROPIUM NEB FS 0.5 MG/2.5 ML AMPUL.NEB NEB SCH ×4 (01:25→19:45)
[2017-02-14 06:09] VITALS: BP 104/55
[2017-02-14 07:42] VITALS: BP 113/76
[2017-02-14] MEDS: LACTOBACILLUS RHAMNOSUS GG 1 EACH CAP.SPRINK GT SCH ×2 (08:00→17:00)
[2017-02-14] MEDS: POLYVINYL ALCOHOL 15 ML BOTTLE EACHEYE SCH ×2 (08:00→21:00)
[2017-02-14] MEDS: VIT B CMPLX 3/FA/VIT C/BIOTIN 1 TAB TABLET PO SCH (08:00)
[2017-02-14] MEDS: ASCORBIC ACID 500 MG TABLET GT SCH (08:00)
[2017-02-14] MEDS: PROSOURCE / PROSTAT (PYXIS) 30 ML UDC GT SCH ×3 (08:00→17:00)
[2017-02-14] MEDS: HEPARIN SODIUM, PORCINE 5000 UNITS/1 ML VIAL SQ SCH ×2 (08:00→21:00)
[2017-02-14 14:30] VITALS: BP 91/57
[2017-02-14] MEDS: NYSTATIN TOP POWDER 15 GM BOTTLE TP SCH ×2 (15:30→21:00)
[2017-02-14] MEDS: DAKINS QUARTER STRENGTH (0.125%) 480 ML BOTTLE TOP SCH ×2 (15:30→21:00)
[2017-02-14] MEDS: Z GUARD REMEDY 2 OZ OINT TP SCH (15:30)
[2017-02-14] MEDS: HYDROGEL DRESSING 90 GM TUBE TP SCH ×4 (15:30→21:00)
[2017-02-14] MEDS: NEOMY SULF/BACITRAC ZN/POLY 15 GM TUBE TP SCH (15:30)
[2017-02-14] MEDS: Z GUARD REMEDY 4 OZ OINT TP SCH ×4 (15:30→21:00)
[2017-02-14] MEDS: CADEXOMER IODINE 40 GM TUBE TP SCH ×9 (15:30→21:00)
[2017-02-14] MEDS: HYDROCODONE/APAP 5/325MG 1 EACH TABLET GT SCH ×2 (15:50→21:00)
[2017-02-14] MEDS: hydrALAZINE HCL 25 MG TABLET GT SCH (17:00)
[2017-02-14 18:53] VITALS: BP 109/74
[2017-02-14 19:37] VITALS: BP 144/77
[2017-02-14] MEDS: METOPROLOL TARTRATE 50 MG TABLET GT SCH (22:09)
[2017-02-14] MEDS: INSULIN GLARGINE, 100 UNIT/ML CARTRIDGE SQ SCH (22:10)
[2017-02-15] VITALS: BP 135/60
[2017-02-15] MEDS: BLOOD SUGAR DIAGNOSTIC 1 EACH STRIP IN SCH ×5 (00:55→23:34)
[2017-02-15] MEDS: METOCLOPRAMIDE HCL 10 MG/10 ML UDC GT SCH ×5 (00:55→23:34)
[2017-02-15] MEDS: INSULIN REGULAR, HUMAN 100 UNIT/ML 3 ML VIAL SQ PRN ×5 (00:58→23:35)
[2017-02-15] MEDS: CLONIDINE HCL 0.2 MG TABLET GT PRN (01:29)
[2017-02-15] MEDS: IPRATROPIUM NEB FS 0.5 MG/2.5 ML AMPUL.NEB NEB SCH ×4 (01:36→19:27)
[2017-02-15] MEDS: ALBUTEROL FS 2.5 MG/3 ML VIAL.NEB NEB SCH ×4 (01:36→19:27)
[2017-02-15] MEDS: RENAL NOVASOURCE 1,000 ML BOTTLE GT PRN (05:45)
[2017-02-15] MEDS: ESOMEPRAZOLE MAG TRIHYDRATE 20 MG CAPSULE.DR GT SCH (05:45)
[2017-02-15 06:00] VITALS: BP 122/63
[2017-02-15 08:02] VITALS: BP 89/50
[2017-02-15] MEDS: hydrALAZINE HCL 25 MG TABLET GT SCH ×2 (09:00→17:27)
[2017-02-15] MEDS: POLYVINYL ALCOHOL 15 ML BOTTLE EACHEYE SCH ×2 (09:17→21:00)
[2017-02-15] MEDS: LACTOBACILLUS RHAMNOSUS GG 1 EACH CAP.SPRINK GT SCH ×2 (09:17→17:27)
[2017-02-15] MEDS: METOPROLOL TARTRATE 50 MG TABLET GT SCH ×2 (09:17→22:06)
[2017-02-15] MEDS: PROSOURCE / PROSTAT (PYXIS) 30 ML UDC GT SCH ×3 (09:17→17:27)
[2017-02-15] MEDS: HYDROCODONE/APAP 5/325MG 1 EACH TABLET GT SCH ×2 (09:17→21:00)
[2017-02-15] MEDS: HYDROGEL DRESSING 90 GM TUBE TP SCH ×4 (09:18→21:00)
[2017-02-15] MEDS: HEPARIN SODIUM, PORCINE 5000 UNITS/1 ML VIAL SQ SCH ×2 (09:18→21:00)
[2017-02-15] MEDS: DAKINS QUARTER STRENGTH (0.125%) 480 ML BOTTLE TOP SCH ×2 (09:18→21:00)
[2017-02-15] MEDS: ASCORBIC ACID 500 MG TABLET GT SCH (09:18)
[2017-02-15] MEDS: CADEXOMER IODINE 40 GM TUBE TP SCH ×7 (09:18→21:00)
[2017-02-15] MEDS: VIT B CMPLX 3/FA/VIT C/BIOTIN 1 TAB TABLET PO SCH (09:18)
[2017-02-15] MEDS: Z GUARD REMEDY 4 OZ OINT TP SCH ×4 (09:19→21:00)
[2017-02-15] MEDS: NYSTATIN TOP POWDER 15 GM BOTTLE TP SCH ×2 (09:19→21:00)
[2017-02-15] MEDS: NEOMY SULF/BACITRAC ZN/POLY 15 GM TUBE TP SCH (09:19)
[2017-02-15 15:53] VITALS: BP 111/60
[2017-02-15 18:16] VITALS: BP 147/72
[2017-02-15 19:33] VITALS: BP_SYST 138; BP_SYST 139; BP_DIAS 72; BP_DIAS 78
[2017-02-15] MEDS: INSULIN GLARGINE, 100 UNIT/ML CARTRIDGE SQ SCH (22:16)
[2017-02-16] VITALS: BP 155/78
[2017-02-16] MEDS: ALBUTEROL FS 2.5 MG/3 ML VIAL.NEB NEB SCH ×4 (01:18→19:29)
[2017-02-16] MEDS: IPRATROPIUM NEB FS 0.5 MG/2.5 ML AMPUL.NEB NEB SCH ×4 (01:18→19:29)
[2017-02-16] MEDS: ESOMEPRAZOLE MAG TRIHYDRATE 20 MG CAPSULE.DR GT SCH (05:41)
[2017-02-16] MEDS: METOCLOPRAMIDE HCL 10 MG/10 ML UDC GT SCH ×3 (05:43→18:00)
[2017-02-16] MEDS: BLOOD SUGAR DIAGNOSTIC 1 EACH STRIP IN SCH ×3 (05:50→18:42)
[2017-02-16] MEDS: INSULIN REGULAR, HUMAN 100 UNIT/ML 3 ML VIAL SQ PRN ×3 (05:51→18:42)
[2017-02-16] MEDS: RENAL NOVASOURCE 1,000 ML BOTTLE GT PRN (05:55)
[2017-02-16 06:00] VITALS: BP 189/77
[2017-02-16] MEDS: CLONIDINE HCL 0.2 MG TABLET GT PRN (06:27)
--- NOTE | 2017-02-16 08:39 | NUR ---
RT PATIENT REC'D TRACHED ON [facility] VENT WITH SETTINGS SET BY TOLERATED WELL. VENT ALARMS CHECKED + AUDIBLE. TRACH SECURE AND IN PROPER POSITION. CUFF CHECKED TASSEL MAKER. DIM COARSE BILAT B/S. SX'D WITH MOD AMT PALE SEMITHICK SECRETIONS. PATIENT APPEARS COMFORTABLE AND IN NO DISTRESS. AMBU BAG AND BACK UP TRACH AT BEDSIDE. CONT CURRENT PLAN OF RESP CARE. Addendum: 02/16/17 at 1206 by EDMUND NOONAN RT Amended: Links added.
[2017-02-16] MEDS: POLYVINYL ALCOHOL 15 ML BOTTLE EACHEYE SCH ×2 (09:55→22:10)
[2017-02-16] MEDS: HYDROCODONE/APAP 5/325MG 1 EACH TABLET GT SCH ×2 (09:55→15:10)
[2017-02-16] MEDS: PROSOURCE / PROSTAT (PYXIS) 30 ML UDC GT SCH ×3 (09:56→17:58)
[2017-02-16] MEDS: METOPROLOL TARTRATE 50 MG TABLET GT SCH ×2 (09:56→22:15)
[2017-02-16] MEDS: LACTOBACILLUS RHAMNOSUS GG 1 EACH CAP.SPRINK GT SCH ×2 (09:56→17:58)
[2017-02-16] MEDS: VIT B CMPLX 3/FA/VIT C/BIOTIN 1 TAB TABLET PO SCH (09:56)
[2017-02-16] MEDS: ASCORBIC ACID 500 MG TABLET GT SCH (09:56)
[2017-02-16] MEDS: hydrALAZINE HCL 25 MG TABLET GT SCH ×2 (09:56→17:58)
[2017-02-16] MEDS: NYSTATIN TOP POWDER 15 GM BOTTLE TP SCH ×2 (09:58→21:00)
[2017-02-16] MEDS: DAKINS QUARTER STRENGTH (0.125%) 480 ML BOTTLE TOP SCH ×2 (09:58→21:00)
[2017-02-16] MEDS: NEOMY SULF/BACITRAC ZN/POLY 15 GM TUBE TP SCH (09:58)
[2017-02-16] MEDS: HYDROGEL DRESSING 90 GM TUBE TP SCH ×4 (09:58→21:00)
[2017-02-16] MEDS: Z GUARD REMEDY 4 OZ OINT TP SCH ×4 (09:58→21:00)
[2017-02-16] MEDS: HEPARIN SODIUM, PORCINE 5000 UNITS/1 ML VIAL SQ SCH ×2 (09:58→21:00)
[2017-02-16] MEDS: CADEXOMER IODINE 40 GM TUBE TP SCH ×7 (09:58→21:00)
[2017-02-16 14:40] VITALS: BP 164/78
[2017-02-16 15:00] VITALS: BP 161/73
[2017-02-16 18:54] VITALS: BP 174/78
[2017-02-16 20:08] VITALS: BP 167/90
[2017-02-16] MEDS: INSULIN GLARGINE, 100 UNIT/ML CARTRIDGE SQ SCH (22:20)
[2017-02-17] MEDS: METOCLOPRAMIDE HCL 10 MG/10 ML UDC GT SCH ×5 (00:21→23:03)
[2017-02-17] MEDS: BLOOD SUGAR DIAGNOSTIC 1 EACH STRIP IN SCH ×5 (00:26→23:03)
[2017-02-17] MEDS: INSULIN REGULAR, HUMAN 100 UNIT/ML 3 ML VIAL SQ PRN ×4 (00:27→23:03)
[2017-02-17] MEDS: IPRATROPIUM NEB FS 0.5 MG/2.5 ML AMPUL.NEB NEB SCH ×4 (01:35→19:25)
[2017-02-17] MEDS: ALBUTEROL FS 2.5 MG/3 ML VIAL.NEB NEB SCH ×4 (01:35→19:25)
[2017-02-17] MEDS: CLONIDINE HCL 0.2 MG TABLET GT PRN ×2 (02:26→06:57)
[2017-02-17 02:27] VITALS: BP 183/74
[2017-02-17] MEDS: ESOMEPRAZOLE MAG TRIHYDRATE 20 MG CAPSULE.DR GT SCH (06:13)
[2017-02-17] MEDS: RENAL NOVASOURCE 1,000 ML BOTTLE GT PRN (06:13)
[2017-02-17 06:21] VITALS: BP 167/89
--- NOTE | 2017-02-17 06:59 | NUR ---
PT MEDICATED X2 OF CLONIDINE PRN SBP > 160, GT FEEDING HELD FOR 1 HR WHEN NOTED RESIDUAL IS 130CC.SUCTION PRN ORALLY,WILL CONTINUE TO MONITOR,FINGERSTICK 160MG/DL AND COVERGE GIVEN.
[2017-02-17] MEDS: PROSOURCE / PROSTAT (PYXIS) 30 ML UDC GT SCH ×3 (08:16→17:41)
[2017-02-17] MEDS: LACTOBACILLUS RHAMNOSUS GG 1 EACH CAP.SPRINK GT SCH ×2 (08:16→17:41)
[2017-02-17] MEDS: POLYVINYL ALCOHOL 15 ML BOTTLE EACHEYE SCH ×2 (08:16→21:13)
[2017-02-17] MEDS: ASCORBIC ACID 500 MG TABLET GT SCH (08:17)
[2017-02-17] MEDS: VIT B CMPLX 3/FA/VIT C/BIOTIN 1 TAB TABLET PO SCH (08:17)
[2017-02-17] MEDS: HEPARIN SODIUM, PORCINE 5000 UNITS/1 ML VIAL SQ SCH ×2 (08:17→21:13)
[2017-02-17] MEDS: HYDROCODONE/APAP 5/325MG 1 EACH TABLET GT SCH ×2 (15:10→21:12)
--- NOTE | 2017-02-17 15:13 | NUR ---
LATE ENTRY FOR 02/16/17. WOUND TREATMENT DONE. WOUND WITH NO DISCHARGE, NO BLEEDING AND NO FOUL ODOR NOTED. WOUND BED LOOKS CLEAN AND PINKISH IN COLOR.
[2017-02-17] MEDS: HYDROGEL DRESSING 90 GM TUBE TP SCH ×4 (15:40→21:13)
[2017-02-17] MEDS: NYSTATIN TOP POWDER 15 GM BOTTLE TP SCH ×2 (15:40→21:14)
[2017-02-17] MEDS: Z GUARD REMEDY 4 OZ OINT TP SCH ×4 (15:40→21:14)
[2017-02-17] MEDS: DAKINS QUARTER STRENGTH (0.125%) 480 ML BOTTLE TOP SCH ×2 (15:40→21:13)
[2017-02-17] MEDS: CADEXOMER IODINE 40 GM TUBE TP SCH ×7 (15:40→21:14)
[2017-02-17] MEDS: NEOMY SULF/BACITRAC ZN/POLY 15 GM TUBE TP SCH (15:40)
--- NOTE | 2017-02-17 16:53 | NUR ---
NORCO GIVEN AT 1510, WOUND TREATMENT DONE AT 1540. WOUND BED REDDISH IN COLOR WITH SLIGHTLY PINKISH COLOR AROUND THE WOUND. NO BLEEDING, NO FOUL ODOR NOTED. V/S ARE FOLLOWS T=98.3, P=72, R=16, B/P= 161/77. NO ACUTE DISTRESS NOTED.
[2017-02-17] MEDS: hydrALAZINE HCL 25 MG TABLET GT SCH (17:40)
[2017-02-17 18:57] VITALS: BP 163/83
[2017-02-17 19:40] VITALS: BP 158/92
[2017-02-17] MEDS: INSULIN GLARGINE, 100 UNIT/ML CARTRIDGE SQ SCH (21:14)
[2017-02-17] MEDS: METOPROLOL TARTRATE 50 MG TABLET GT SCH (21:14)
[2017-02-18 00:39] VITALS: BP 158/92
[2017-02-18] MEDS: IPRATROPIUM NEB FS 0.5 MG/2.5 ML AMPUL.NEB NEB SCH ×4 (01:47→19:09)
[2017-02-18] MEDS: ALBUTEROL FS 2.5 MG/3 ML VIAL.NEB NEB SCH ×4 (01:47→19:09)
[2017-02-18] MEDS: ESOMEPRAZOLE MAG TRIHYDRATE 20 MG CAPSULE.DR GT SCH (05:23)
[2017-02-18] MEDS: METOCLOPRAMIDE HCL 10 MG/10 ML UDC GT SCH ×3 (05:23→17:06)
[2017-02-18] MEDS: BLOOD SUGAR DIAGNOSTIC 1 EACH STRIP IN SCH ×3 (05:23→17:06)
[2017-02-18] MEDS: INSULIN REGULAR, HUMAN 100 UNIT/ML 3 ML VIAL SQ PRN ×3 (05:25→17:07)
[2017-02-18] MEDS: RENAL NOVASOURCE 1,000 ML BOTTLE GT PRN (05:30)
[2017-02-18 06:14] VITALS: BP 155/76
[2017-02-18 08:12] VITALS: BP 102/77
[2017-02-18] MEDS: METOPROLOL TARTRATE 50 MG TABLET GT SCH ×2 (09:00→22:11)
[2017-02-18] MEDS: hydrALAZINE HCL 25 MG TABLET GT SCH ×2 (09:00→16:54)
[2017-02-18] MEDS: POLYVINYL ALCOHOL 15 ML BOTTLE EACHEYE SCH ×2 (09:44→21:38)
[2017-02-18] MEDS: ASCORBIC ACID 500 MG TABLET GT SCH (09:45)
[2017-02-18] MEDS: VIT B CMPLX 3/FA/VIT C/BIOTIN 1 TAB TABLET PO SCH (09:45)
[2017-02-18] MEDS: PROSOURCE / PROSTAT (PYXIS) 30 ML UDC GT SCH ×3 (09:45→16:54)
[2017-02-18] MEDS: LACTOBACILLUS RHAMNOSUS GG 1 EACH CAP.SPRINK GT SCH ×2 (09:45→16:54)
[2017-02-18] MEDS: HEPARIN SODIUM, PORCINE 5000 UNITS/1 ML VIAL SQ SCH ×2 (09:46→21:40)
--- NOTE | 2017-02-18 10:15 | NUR ---
Seen and examined by Dr. Terrie Olivo, reported to MD technical business analyst is concern about the weight loss from Jan 2017= 175 lbs to 2016 =164 lbs, reweigh patient on 02/17= 156.6 lbs., she said that to have technical business analyst review the weight, Graphics Coordinator notified. Dr. Olivo also notified resident with episode of fluctuating B/P, at times she is being given Clonidine PRN and at times her B/P is low. NNO given at this time.
[2017-02-18 12:00] VITALS: BP 111/74
[2017-02-18] MEDS: HYDROCODONE/APAP 5/325MG 1 EACH TABLET GT SCH ×2 (14:00→21:38)
[2017-02-18] MEDS: CADEXOMER IODINE 40 GM TUBE TP SCH ×7 (15:00→22:30)
[2017-02-18] MEDS: DAKINS QUARTER STRENGTH (0.125%) 480 ML BOTTLE TOP SCH ×2 (15:00→22:30)
[2017-02-18] MEDS: Z GUARD REMEDY 4 OZ OINT TP SCH ×4 (15:00→22:30)
[2017-02-18] MEDS: NEOMY SULF/BACITRAC ZN/POLY 15 GM TUBE TP SCH (15:00)
[2017-02-18] MEDS: HYDROGEL DRESSING 90 GM TUBE TP SCH ×4 (15:00→22:30)
[2017-02-18] MEDS: NYSTATIN TOP POWDER 15 GM BOTTLE TP SCH ×2 (15:00→22:30)
--- NOTE | 2017-02-18 15:00 | NUR ---
"Wound status note: Sacral Stage IV pressure ulcer noted with moist red granulated tissue. No odor. No erythema to surrounding area noted. V|S: BP: 110/75, Pulse: 92, R: 18, T. 98.8 PA: 0/10. Topical treatment done as ordered. Tolerated well. On pain management with Wells prior to wound care and tolerated well. No signs and symptoms of pain noted."
[2017-02-18 19:35] VITALS: BP 110/75
[2017-02-18 20:06] VITALS: BP 133/63
--- NOTE | 2017-02-18 21:06 | NUR ---
Pt Boyfriend John called and given consent for Flu Vaccine.
[2017-02-18] MEDS: INSULIN GLARGINE, 100 UNIT/ML CARTRIDGE SQ SCH (21:57)
[2017-02-19] MEDS: METOCLOPRAMIDE HCL 10 MG/10 ML UDC GT SCH ×4 (00:06→17:33)
[2017-02-19 00:20] VITALS: BP 150/78
[2017-02-19] MEDS: BLOOD SUGAR DIAGNOSTIC 1 EACH STRIP IN SCH ×4 (00:23→18:14)
[2017-02-19] MEDS: INSULIN REGULAR, HUMAN 100 UNIT/ML 3 ML VIAL SQ PRN ×3 (00:24→18:19)
[2017-02-19] MEDS: IPRATROPIUM NEB FS 0.5 MG/2.5 ML AMPUL.NEB NEB SCH ×4 (01:21→19:53)
[2017-02-19] MEDS: ALBUTEROL FS 2.5 MG/3 ML VIAL.NEB NEB SCH ×4 (01:21→19:53)
[2017-02-19] MEDS: RENAL NOVASOURCE 1,000 ML BOTTLE GT PRN (05:42)
[2017-02-19] MEDS: ESOMEPRAZOLE MAG TRIHYDRATE 20 MG CAPSULE.DR GT SCH (05:42)
[2017-02-19 06:40] VITALS: BP 168/78
[2017-02-19] MEDS: CLONIDINE HCL 0.2 MG TABLET GT PRN (06:48)
[2017-02-19 08:06] VITALS: BP 187/91
[2017-02-19] MEDS: POLYVINYL ALCOHOL 15 ML BOTTLE EACHEYE SCH ×2 (08:28→21:20)
[2017-02-19] MEDS: LACTOBACILLUS RHAMNOSUS GG 1 EACH CAP.SPRINK GT SCH ×2 (08:28→17:06)
[2017-02-19] MEDS: PROSOURCE / PROSTAT (PYXIS) 30 ML UDC GT SCH ×3 (08:28→17:07)
[2017-02-19] MEDS: ASCORBIC ACID 500 MG TABLET GT SCH (08:28)
[2017-02-19] MEDS: VIT B CMPLX 3/FA/VIT C/BIOTIN 1 TAB TABLET PO SCH (08:28)
[2017-02-19] MEDS: HEPARIN SODIUM, PORCINE 5000 UNITS/1 ML VIAL SQ SCH ×2 (08:29→21:20)
[2017-02-19] MEDS: CADEXOMER IODINE 40 GM TUBE TP SCH ×7 (14:00→22:00)
[2017-02-19] MEDS: HYDROCODONE/APAP 5/325MG 1 EACH TABLET GT SCH ×2 (14:00→21:20)
[2017-02-19] MEDS: DAKINS QUARTER STRENGTH (0.125%) 480 ML BOTTLE TOP SCH (14:00)
[2017-02-19] MEDS: Z GUARD REMEDY 4 OZ OINT TP SCH ×3 (14:00→21:20)
[2017-02-19] MEDS: NYSTATIN TOP POWDER 15 GM BOTTLE TP SCH ×2 (14:00→21:20)
[2017-02-19] MEDS: HYDROGEL DRESSING 90 GM TUBE TP SCH (14:00)
[2017-02-19] MEDS: NEOMY SULF/BACITRAC ZN/POLY 15 GM TUBE TP SCH (14:00)
[2017-02-19] MEDS: hydrALAZINE HCL 25 MG TABLET GT SCH (17:00)
[2017-02-19] MEDS ORDERED: FLU VACC QS 2017-18(36MOS+)/PF 0.5 ML DISP.SYRIN IM ONE (17:00)
--- NOTE | 2017-02-19 18:30 | NUR ---
Pt sacral wound looks clean with very small drainage,no sign and symptoms of infection.Will continue to monitor.
[2017-02-19 19:19] VITALS: BP 113/52
[2017-02-19 19:33] VITALS: BP 127/72
[2017-02-19] MEDS ORDERED: GENTAMICIN 0.1% OINT 15 GM TUBE TP SCH (21:00)
[2017-02-19] MEDS ORDERED: Z GUARD REMEDY 4 OZ OINT TP SCH (21:00)
[2017-02-19] MEDS: METOPROLOL TARTRATE 50 MG TABLET GT SCH (22:14)
[2017-02-19] MEDS: INSULIN GLARGINE, 100 UNIT/ML CARTRIDGE SQ SCH (22:15)
[2017-02-20 00:30] VITALS: BP 150/87
[2017-02-20] MEDS: INSULIN REGULAR, HUMAN 100 UNIT/ML 3 ML VIAL SQ PRN ×4 (00:32→17:40)
[2017-02-20] MEDS: BLOOD SUGAR DIAGNOSTIC 1 EACH STRIP IN SCH ×4 (00:32→17:38)
[2017-02-20] MEDS: METOCLOPRAMIDE HCL 10 MG/10 ML UDC GT SCH ×4 (00:32→17:38)
[2017-02-20] MEDS: IPRATROPIUM NEB FS 0.5 MG/2.5 ML AMPUL.NEB NEB SCH ×5 (01:55→20:29)
[2017-02-20] MEDS: ALBUTEROL FS 2.5 MG/3 ML VIAL.NEB NEB SCH ×5 (01:55→20:29)
[2017-02-20] MEDS: ESOMEPRAZOLE MAG TRIHYDRATE 20 MG CAPSULE.DR GT SCH (06:26)
[2017-02-20] MEDS: CLONIDINE HCL 0.2 MG TABLET GT PRN (06:26)
[2017-02-20] MEDS: RENAL NOVASOURCE 1,000 ML BOTTLE GT PRN (06:27)
--- NOTE | 2017-02-20 06:51 | NUR ---
Pt sacral wound ,no signs and symptoms of infection.No foul odor noted.
[2017-02-20 06:56] VITALS: BP 179/79
[2017-02-20 07:50] VITALS: BP 179/91
[2017-02-20] MEDS: POLYVINYL ALCOHOL 15 ML BOTTLE EACHEYE SCH ×2 (09:01→21:15)
[2017-02-20] MEDS: hydrALAZINE HCL 25 MG TABLET GT SCH ×2 (09:02→17:00)
[2017-02-20] MEDS: METOPROLOL TARTRATE 50 MG TABLET GT SCH ×2 (09:03→22:00)
[2017-02-20] MEDS: LACTOBACILLUS RHAMNOSUS GG 1 EACH CAP.SPRINK GT SCH ×2 (09:03→17:38)
[2017-02-20] MEDS: ASCORBIC ACID 500 MG TABLET GT SCH (09:04)
[2017-02-20] MEDS: VIT B CMPLX 3/FA/VIT C/BIOTIN 1 TAB TABLET PO SCH (09:04)
[2017-02-20] MEDS: PROSOURCE / PROSTAT (PYXIS) 30 ML UDC GT SCH ×4 (09:04→18:34)
[2017-02-20] MEDS: HEPARIN SODIUM, PORCINE 5000 UNITS/1 ML VIAL SQ SCH ×2 (09:05→21:15)
[2017-02-20] MEDS ORDERED: HYDROGEN PEROXIDE 480 ML BOTTLE TP PRN (12:30)
[2017-02-20] MEDS: HYDROCODONE/APAP 5/325MG 1 EACH TABLET GT SCH ×2 (13:46→21:35)
--- NOTE | 2017-02-20 14:00 | NUR ---
IDT meeting held, reviewed current medications, new orders, treatment and labs. Family unable to attend, new order given to increase Lantus to 13 units Q HS after pharmacy reviewed BS has been more 250mg/dl. Cloth Desizing Range Operator Chief aware of patient's weight loss and recommended to increase Prostat to TID.
[2017-02-20] MEDS: NYSTATIN TOP POWDER 15 GM BOTTLE TP SCH ×2 (14:15→22:00)
[2017-02-20] MEDS: Z GUARD REMEDY 4 OZ OINT TP SCH ×2 (14:15→22:00)
[2017-02-20] MEDS: CADEXOMER IODINE 40 GM TUBE TP SCH ×7 (14:15→22:00)
[2017-02-20 15:48] VITALS: BP 144/87
[2017-02-20] MEDS: ACETAMINOPHEN 650 MG/20 ML UDC- FOR SA PATIENTS ONLY GT PRN ×2 (17:41→20:30)
--- NOTE | 2017-02-20 18:00 | NUR ---
Notified THOMAS Ramsay ID patient with T of 101.3. New order for x2, to start Vanco per pharmacy to dose, Zosyn 2.275 gm. Q 8 hour, no stop date yet, CXR and CBC in AM. Obtain order for midline insertion, nursing piping supervisor notified. She stated PICC line nurse will come around 2130. Endorsed. Order faxed to [facility] and [facility] pharmacy.
[2017-02-20 18:59] VITALS: BP 124/67
[2017-02-20 19:54] VITALS: BP 101/51
--- NOTE | 2017-02-20 20:30 | NUR ---
DOCTOR NATUROPATHIC NOTE Noted patient with temp of 101.9. Cooling measure initiated. Tylenol given 650 mg via gt as ordered. MD already ordered antibiotic Vancomycin and Zosyn via IV midline d/t increased temp. Will closely monitor.
[2017-02-20] MEDS: HYDROGEN PEROXIDE 480 ML BOTTLE TP SCH (22:00)
[2017-02-20] MEDS: INSULIN GLARGINE, 100 UNIT/ML CARTRIDGE SQ SCH (22:08)
[2017-02-20] MEDS ORDERED: VANCOMYCIN 1 GM in IV D5W 250ml IV ONE (23:00)
[2017-02-21] MEDS ORDERED: PIPERACILLIN /TAZOBACTAM 2.25 G in IV D5W 50 ML IV SCH ×2
[2017-02-21] MEDS: PIPERACILLIN /TAZOBACTAM 2.25 G in IV D5W 50 ML IV SCH ×4 (00:01→22:00)
--- NOTE | 2017-02-21 00:01 | NUR ---
Gave zosyn iv late due to no iv access. will endorse to morning nurse to adjust zosyn iv admin time.
[2017-02-21 00:30] VITALS: BP 89/58
[2017-02-21] MEDS: PROSOURCE / PROSTAT (PYXIS) 30 ML UDC GT SCH ×4 (00:43→17:07)
[2017-02-21] MEDS: METOCLOPRAMIDE HCL 10 MG/10 ML UDC GT SCH ×4 (00:43→17:07)
[2017-02-21] MEDS: BLOOD SUGAR DIAGNOSTIC 1 EACH STRIP IN SCH ×4 (00:43→17:07)
[2017-02-21] MEDS: INSULIN REGULAR, HUMAN 100 UNIT/ML 3 ML VIAL SQ PRN ×3 (00:44→17:09)
[2017-02-21] MEDS: ALBUTEROL FS 2.5 MG/3 ML VIAL.NEB NEB SCH ×4 (02:10→19:21)
[2017-02-21] MEDS: IPRATROPIUM NEB FS 0.5 MG/2.5 ML AMPUL.NEB NEB SCH ×4 (02:10→19:21)
[2017-02-21] MEDS: ESOMEPRAZOLE MAG TRIHYDRATE 20 MG CAPSULE.DR GT SCH (05:53)
[2017-02-21] MEDS: RENAL NOVASOURCE 1,000 ML BOTTLE GT PRN (05:53)
--- NOTE | 2017-02-21 06:27 | NUR ---
DINING ROOM BUSSER NOTE: Patient awake but calm. Temp of 99.7 HR 100. Continue on cooling measure. Kept safe and comfortable. Will monitor.
[2017-02-21 06:29] LABS: BASOPHILS % (AUTO) 0.1 % (0.0-2.0); EOSINOPHILS # (AUTO) 0.1 /CMM (0.0-0.7); EOSINOPHILS % (AUTO) 0.4 % (0.0-6.0); HEMATOCRIT 37 % (33-45); HEMOGLOBIN 12.1 g/dL (11.5-14.8); LYMPHOCYTES % (AUTO) 5.8 % (20.0-44.0); MEAN CORPUSCULAR HEMOGLOBIN 30 PG (26.0-33.0); MEAN CORPUSCULAR HGB CONC 33 g/dl (31.0-36.0); MEAN CORPUSCULAR VOLUME 92 fL (82-100); MONOCYTES # (AUTO) 0.5 /CMM (0.1-1.30); MONOCYTES % (AUTO) 2.9 % (2.0-12.0); NEUTROPHILS # (AUTO) 15.8 /CMM (1.8-8.9); NEUTROPHILS % (AUTO) 90.8 % (43.0-81.0); PLATELET COUNT (AUTO) 217 /CMM (150-450); RDW COEFFICIENT OF VARIATION 18.3 (11.5-15.0); WHITE BLOOD COUNT (AUTO) 17.4 K/uL (4.3-11.0)
[2017-02-21 06:31] VITALS: BP 127/86
[2017-02-21 08:00] VITALS: BP 115/73
[2017-02-21] MEDS: HEPARIN SODIUM, PORCINE 5000 UNITS/1 ML VIAL SQ SCH ×2 (09:00→21:00)
[2017-02-21] MEDS: VIT B CMPLX 3/FA/VIT C/BIOTIN 1 TAB TABLET PO SCH (09:00)
[2017-02-21] MEDS: LACTOBACILLUS RHAMNOSUS GG 1 EACH CAP.SPRINK GT SCH ×2 (09:00→16:51)
[2017-02-21] MEDS: POLYVINYL ALCOHOL 15 ML BOTTLE EACHEYE SCH ×2 (09:00→21:00)
[2017-02-21] MEDS: ASCORBIC ACID 500 MG TABLET GT SCH (09:00)
[2017-02-21 09:32] LABS: BAND % (MANUAL) 1 % (0.0-5.0); LYMPHOCYTES % (MANUAL) 5 % (16-48); MONOCYTES % (MANUAL) 5 % (0-11.0); NEUTROPHILS % (MANUAL) 89 (42-76)
--- NOTE | 2017-02-21 14:00 | NUR ---
Resident returned back from dialysis in stable condition, AV shunt in the R FA no bleeding noted with dressing intact. V/S WNL, Notified pharmacy that previous dose of Zosyn was given at 0700 and therefore time was changed to 1400. ATB Zosyn given at 1400. midline in the L upper arm intact, no s/s of infiltration.
[2017-02-21] MEDS: HYDROCODONE/APAP 5/325MG 1 EACH TABLET GT SCH ×2 (15:30→21:00)
[2017-02-21] MEDS: Z GUARD REMEDY 4 OZ OINT TP SCH ×2 (16:30→21:00)
[2017-02-21] MEDS: HYDROGEN PEROXIDE 480 ML BOTTLE TP SCH ×2 (16:30→21:00)
[2017-02-21] MEDS: CADEXOMER IODINE 40 GM TUBE TP SCH ×7 (16:30→21:00)
[2017-02-21] MEDS: NYSTATIN TOP POWDER 15 GM BOTTLE TP SCH ×2 (16:30→21:00)
[2017-02-21] MEDS: hydrALAZINE HCL 25 MG TABLET GT SCH (17:00)
[2017-02-21 18:59] VITALS: BP 111/69
[2017-02-21] MEDS: VANCOMYCIN POST DIALYSIS 500MG IV PRN ×2 (20:00)
[2017-02-21] MEDS: METOPROLOL TARTRATE 50 MG TABLET GT SCH (22:00)
[2017-02-21] MEDS: INSULIN GLARGINE, 100 UNIT/ML CARTRIDGE SQ SCH (22:24)
[2017-02-22] VITALS: BP 133/86
[2017-02-22] MEDS: METOCLOPRAMIDE HCL 10 MG/10 ML UDC GT SCH ×5 (00:15→23:44)
[2017-02-22] MEDS: PROSOURCE / PROSTAT (PYXIS) 30 ML UDC GT SCH ×5 (00:15→23:44)
[2017-02-22] MEDS: BLOOD SUGAR DIAGNOSTIC 1 EACH STRIP IN SCH ×5 (00:16→23:44)
[2017-02-22] MEDS: CLONIDINE HCL 0.2 MG TABLET GT PRN ×3 (00:16→23:44)
[2017-02-22] MEDS: INSULIN REGULAR, HUMAN 100 UNIT/ML 3 ML VIAL SQ PRN ×5 (00:17→23:45)
[2017-02-22] MEDS: IPRATROPIUM NEB FS 0.5 MG/2.5 ML AMPUL.NEB NEB SCH ×4 (02:17→19:14)
[2017-02-22] MEDS: ALBUTEROL FS 2.5 MG/3 ML VIAL.NEB NEB SCH ×4 (02:17→19:14)
[2017-02-22 06:00] VITALS: BP 110/71
[2017-02-22] MEDS: PIPERACILLIN /TAZOBACTAM 2.25 G in IV D5W 50 ML IV SCH ×3 (06:00→21:11)
[2017-02-22] MEDS: ESOMEPRAZOLE MAG TRIHYDRATE 20 MG CAPSULE.DR GT SCH (06:10)
[2017-02-22] MEDS: RENAL NOVASOURCE 1,000 ML BOTTLE GT PRN (07:12)
[2017-02-22 08:31] VITALS: BP 78/46
[2017-02-22] MEDS: hydrALAZINE HCL 25 MG TABLET GT SCH ×2 (08:45→17:29)
[2017-02-22] MEDS: POLYVINYL ALCOHOL 15 ML BOTTLE EACHEYE SCH ×2 (08:45→21:20)
[2017-02-22] MEDS: LACTOBACILLUS RHAMNOSUS GG 1 EACH CAP.SPRINK GT SCH ×2 (08:46→17:29)
[2017-02-22] MEDS: METOPROLOL TARTRATE 50 MG TABLET GT SCH ×2 (08:46→21:50)
[2017-02-22] MEDS: HEPARIN SODIUM, PORCINE 5000 UNITS/1 ML VIAL SQ SCH ×2 (08:47→21:21)
[2017-02-22] MEDS: HYDROCODONE/APAP 5/325MG 1 EACH TABLET GT SCH ×2 (08:47→21:00)
[2017-02-22] MEDS: ASCORBIC ACID 500 MG TABLET GT SCH (08:47)
[2017-02-22] MEDS: CADEXOMER IODINE 40 GM TUBE TP SCH ×7 (09:00→21:21)
[2017-02-22] MEDS: NYSTATIN TOP POWDER 15 GM BOTTLE TP SCH ×2 (09:00→21:21)
[2017-02-22] MEDS: Z GUARD REMEDY 4 OZ OINT TP SCH ×2 (09:00→21:21)
[2017-02-22] MEDS: HYDROGEN PEROXIDE 480 ML BOTTLE TP SCH ×2 (09:02→21:21)
[2017-02-22] MEDS: VIT B CMPLX 3/FA/VIT C/BIOTIN 1 TAB TABLET PO SCH (09:02)
[2017-02-22 09:55] VITALS: BP 112/51
[2017-02-22] MEDS: LACTULOSE 10 G/15 ML UDC (PYXIS) GT PRN (12:23)
[2017-02-22 18:06] VITALS: BP 142/67
[2017-02-22] MEDS: INSULIN GLARGINE, 100 UNIT/ML CARTRIDGE SQ SCH (21:22)
[2017-02-22 22:01] VITALS: BP 90/45
[2017-02-23] VITALS: BP 152/71
[2017-02-23] MEDS: IPRATROPIUM NEB FS 0.5 MG/2.5 ML AMPUL.NEB NEB SCH ×4 (00:53→20:10)
[2017-02-23] MEDS: ALBUTEROL FS 2.5 MG/3 ML VIAL.NEB NEB SCH ×4 (00:53→20:10)
[2017-02-23] MEDS: ESOMEPRAZOLE MAG TRIHYDRATE 20 MG CAPSULE.DR GT SCH (05:20)
[2017-02-23] MEDS: PROSOURCE / PROSTAT (PYXIS) 30 ML UDC GT SCH ×4 (05:20→23:45)
[2017-02-23] MEDS: METOCLOPRAMIDE HCL 10 MG/10 ML UDC GT SCH ×4 (05:20→23:46)
[2017-02-23] MEDS: BLOOD SUGAR DIAGNOSTIC 1 EACH STRIP IN SCH ×4 (05:20→23:47)
[2017-02-23] MEDS: CLONIDINE HCL 0.2 MG TABLET GT PRN (05:21)
[2017-02-23] MEDS: INSULIN REGULAR, HUMAN 100 UNIT/ML 3 ML VIAL SQ PRN ×4 (05:22→23:53)
[2017-02-23] MEDS: PIPERACILLIN /TAZOBACTAM 2.25 G in IV D5W 50 ML IV SCH ×3 (05:55→21:07)
[2017-02-23 06:00] VITALS: BP 144/70
[2017-02-23 08:17] VITALS: BP 116/64
[2017-02-23] MEDS: hydrALAZINE HCL 25 MG TABLET GT SCH ×2 (08:59→17:00)
[2017-02-23] MEDS: POLYVINYL ALCOHOL 15 ML BOTTLE EACHEYE SCH ×2 (09:00→21:16)
[2017-02-23] MEDS: LACTOBACILLUS RHAMNOSUS GG 1 EACH CAP.SPRINK GT SCH ×2 (09:01→17:00)
[2017-02-23] MEDS: METOPROLOL TARTRATE 50 MG TABLET GT SCH ×2 (09:02→21:11)
[2017-02-23] MEDS: HYDROCODONE/APAP 5/325MG 1 EACH TABLET GT SCH ×2 (09:07→21:20)
[2017-02-23] MEDS: HEPARIN SODIUM, PORCINE 5000 UNITS/1 ML VIAL SQ SCH ×2 (09:07→21:17)
[2017-02-23] MEDS: VIT B CMPLX 3/FA/VIT C/BIOTIN 1 TAB TABLET PO SCH (09:07)
[2017-02-23] MEDS: ASCORBIC ACID 500 MG TABLET GT SCH (09:07)
[2017-02-23] MEDS: HYDROGEN PEROXIDE 480 ML BOTTLE TP SCH ×2 (10:00→21:16)
[2017-02-23] MEDS: NYSTATIN TOP POWDER 15 GM BOTTLE TP SCH ×2 (10:00→21:11)
[2017-02-23] MEDS: Z GUARD REMEDY 4 OZ OINT TP SCH ×2 (10:00→21:11)
[2017-02-23] MEDS: CADEXOMER IODINE 40 GM TUBE TP SCH ×7 (10:00→21:16)
--- NOTE | 2017-02-23 13:31 | NUR ---
SEEN AND EXAMINED BY THOMAS BOGGS WITH NO NEW ORDERS AT THIS TIME.
[2017-02-23 16:57] VITALS: BP 117/68
[2017-02-23 19:06] VITALS: BP 159/77
[2017-02-23 19:53] VITALS: BP 137/71
[2017-02-23] MEDS: INSULIN GLARGINE, 100 UNIT/ML CARTRIDGE SQ SCH (22:36)
--- NOTE | 2017-02-24 | NUR ---
SUPERVISOR MOLD YARD/NOTES BLOOD SUGAR 323, 12 UNITS OF INSULIN GIVEN CHYNA SQ ORDERED, NO SIGNS OF HYPER GLYCEMIA NOTED. WILL CONTINUE TO MONITOR.
[2017-02-24 00:54] VITALS: BP 159/72
[2017-02-24] MEDS: IPRATROPIUM NEB FS 0.5 MG/2.5 ML AMPUL.NEB NEB SCH ×4 (02:02→19:43)
[2017-02-24] MEDS: ALBUTEROL FS 2.5 MG/3 ML VIAL.NEB NEB SCH ×4 (02:03→19:43)
[2017-02-24] MEDS: PIPERACILLIN /TAZOBACTAM 2.25 G in IV D5W 50 ML IV SCH ×3 (05:56→21:58)
[2017-02-24 06:00] VITALS: BP 142/70
[2017-02-24] MEDS: METOCLOPRAMIDE HCL 10 MG/10 ML UDC GT SCH ×4 (06:02→23:17)
[2017-02-24] MEDS: PROSOURCE / PROSTAT (PYXIS) 30 ML UDC GT SCH ×4 (06:02→23:17)
[2017-02-24] MEDS: BLOOD SUGAR DIAGNOSTIC 1 EACH STRIP IN SCH ×4 (06:02→23:17)
[2017-02-24] MEDS: ESOMEPRAZOLE MAG TRIHYDRATE 20 MG CAPSULE.DR GT SCH (06:02)
[2017-02-24] MEDS: INSULIN REGULAR, HUMAN 100 UNIT/ML 3 ML VIAL SQ PRN ×3 (06:04→23:18)
--- NOTE | 2017-02-24 06:55 | NUR ---
DESTINATION SPECIALIST/NOTES BLOOD SUGAR 252. 9 UNITS OF INSULIN GIVEN CHYNA SQ ORDERED.NO SIGNS OF HYPERGLYCEMIA NOTED. PT ON G-TUBE FEEDING ORDERED. WILL CONTINUE TO MONITOR.
[2017-02-24 08:32] VITALS: BP 160/85
[2017-02-24] MEDS: POLYVINYL ALCOHOL 15 ML BOTTLE EACHEYE SCH ×2 (09:00→21:23)
[2017-02-24] MEDS: ASCORBIC ACID 500 MG TABLET GT SCH (14:17)
[2017-02-24] MEDS: LACTOBACILLUS RHAMNOSUS GG 1 EACH CAP.SPRINK GT SCH ×2 (14:17→17:24)
[2017-02-24] MEDS: HYDROCODONE/APAP 5/325MG 1 EACH TABLET GT SCH ×2 (14:17→21:23)
[2017-02-24] MEDS: VIT B CMPLX 3/FA/VIT C/BIOTIN 1 TAB TABLET PO SCH (14:17)
[2017-02-24] MEDS: HEPARIN SODIUM, PORCINE 5000 UNITS/1 ML VIAL SQ SCH ×2 (14:17→21:23)
[2017-02-24] MEDS: HYDROGEN PEROXIDE 480 ML BOTTLE TP SCH ×2 (15:00→21:23)
[2017-02-24] MEDS: Z GUARD REMEDY 4 OZ OINT TP SCH ×2 (15:00→21:24)
[2017-02-24] MEDS: CADEXOMER IODINE 40 GM TUBE TP SCH ×7 (15:00→21:24)
[2017-02-24] MEDS: VANCOMYCIN POST DIALYSIS 500MG IV PRN ×2 (16:45)
[2017-02-24] MEDS: hydrALAZINE HCL 25 MG TABLET GT SCH (17:00)
[2017-02-24 18:56] VITALS: BP 93/54
[2017-02-24 20:35] VITALS: BP 100/47
[2017-02-24] MEDS: INSULIN GLARGINE, 100 UNIT/ML CARTRIDGE SQ SCH (21:22)
[2017-02-24] MEDS: METOPROLOL TARTRATE 50 MG TABLET GT SCH (21:24)
[2017-02-24] MEDS: NYSTATIN TOP POWDER 15 GM BOTTLE TP SCH ×2 (21:24)
[2017-02-25 00:04] VITALS: BP 111/68
[2017-02-25] MEDS: ALBUTEROL FS 2.5 MG/3 ML VIAL.NEB NEB SCH ×4 (02:17→20:03)
[2017-02-25] MEDS: IPRATROPIUM NEB FS 0.5 MG/2.5 ML AMPUL.NEB NEB SCH ×4 (02:17→20:03)
[2017-02-25] MEDS: ESOMEPRAZOLE MAG TRIHYDRATE 20 MG CAPSULE.DR GT SCH (05:24)
[2017-02-25] MEDS: METOCLOPRAMIDE HCL 10 MG/10 ML UDC GT SCH ×4 (05:24→23:19)
[2017-02-25] MEDS: BLOOD SUGAR DIAGNOSTIC 1 EACH STRIP IN SCH ×4 (05:24→23:19)
[2017-02-25] MEDS: PROSOURCE / PROSTAT (PYXIS) 30 ML UDC GT SCH ×4 (05:24→23:19)
[2017-02-25] MEDS: INSULIN REGULAR, HUMAN 100 UNIT/ML 3 ML VIAL SQ PRN ×4 (05:26→23:20)
[2017-02-25] MEDS: PIPERACILLIN /TAZOBACTAM 2.25 G in IV D5W 50 ML IV SCH ×3 (05:59→21:49)
[2017-02-25 06:07] VITALS: BP 132/65
[2017-02-25 08:11] VITALS: BP 118/67
[2017-02-25] MEDS: NYSTATIN TOP POWDER 15 GM BOTTLE TP SCH ×4 (09:00→21:27)
[2017-02-25] MEDS: CADEXOMER IODINE 40 GM TUBE TP SCH ×7 (09:00→21:27)
[2017-02-25] MEDS: Z GUARD REMEDY 4 OZ OINT TP SCH ×2 (09:00→21:27)
[2017-02-25] MEDS: hydrALAZINE HCL 25 MG TABLET GT SCH ×2 (09:00→16:39)
[2017-02-25] MEDS: POLYVINYL ALCOHOL 15 ML BOTTLE EACHEYE SCH ×2 (09:34→21:26)
[2017-02-25] MEDS: LACTOBACILLUS RHAMNOSUS GG 1 EACH CAP.SPRINK GT SCH ×2 (09:34→16:39)
[2017-02-25] MEDS: METOPROLOL TARTRATE 50 MG TABLET GT SCH ×2 (09:35→21:27)
[2017-02-25] MEDS: ASCORBIC ACID 500 MG TABLET GT SCH (09:40)
[2017-02-25] MEDS: HYDROGEN PEROXIDE 480 ML BOTTLE TP SCH ×2 (09:40→21:27)
[2017-02-25] MEDS: HEPARIN SODIUM, PORCINE 5000 UNITS/1 ML VIAL SQ SCH ×2 (09:40→21:26)
[2017-02-25] MEDS: HYDROCODONE/APAP 5/325MG 1 EACH TABLET GT SCH ×2 (09:40→21:26)
[2017-02-25] MEDS: VIT B CMPLX 3/FA/VIT C/BIOTIN 1 TAB TABLET PO SCH (09:40)
--- NOTE | 2017-02-25 15:20 | NUR ---
RIMA BOGGS NP, REVIEWED BLOOD SUGAR RESULTS THAT WERE RECORDED FROM 02/08-02/21. SHE ORDERED TO INCREASE LANTUS TO 20 UNITS QHS SUBCUTANEOUS
[2017-02-25 15:54] VITALS: BP 118/67
[2017-02-25] MEDS: RENAL NOVASOURCE 1,000 ML BOTTLE GT PRN (17:03)
[2017-02-25 18:16] VITALS: BP 153/91
[2017-02-25 19:35] VITALS: BP 152/79
[2017-02-25] MEDS: INSULIN GLARGINE, 100 UNIT/ML CARTRIDGE SQ SCH (21:28)
[2017-02-26 00:04] VITALS: BP 149/72
[2017-02-26] MEDS: ALBUTEROL FS 2.5 MG/3 ML VIAL.NEB NEB SCH ×4 (01:31→19:15)
[2017-02-26] MEDS: IPRATROPIUM NEB FS 0.5 MG/2.5 ML AMPUL.NEB NEB SCH ×4 (01:31→19:15)
[2017-02-26] MEDS: METOCLOPRAMIDE HCL 10 MG/10 ML UDC GT SCH ×3 (05:33→17:19)
[2017-02-26] MEDS: PROSOURCE / PROSTAT (PYXIS) 30 ML UDC GT SCH ×3 (05:33→17:19)
[2017-02-26] MEDS: ESOMEPRAZOLE MAG TRIHYDRATE 20 MG CAPSULE.DR GT SCH (05:33)
[2017-02-26] MEDS: BLOOD SUGAR DIAGNOSTIC 1 EACH STRIP IN SCH ×3 (05:34→17:19)
[2017-02-26] MEDS: INSULIN REGULAR, HUMAN 100 UNIT/ML 3 ML VIAL SQ PRN ×2 (05:35→17:25)
[2017-02-26] MEDS: PIPERACILLIN /TAZOBACTAM 2.25 G in IV D5W 50 ML IV SCH ×3 (05:49→21:59)
[2017-02-26 06:26] VITALS: BP 153/79
[2017-02-26 07:15] LABS: BASOPHILS % (AUTO) 0.3 % (0.0-2.0); EOSINOPHILS # (AUTO) 0.3 /CMM (0.0-0.7); EOSINOPHILS % (AUTO) 2.3 % (0.0-6.0); HEMATOCRIT 35 % (33-45); HEMOGLOBIN 11.4 g/dL (11.5-14.8); LYMPHOCYTES # (AUTO) 1.6 /CMM (0.8-4.8); LYMPHOCYTES % (AUTO) 15.1 % (20.0-44.0); MEAN CORPUSCULAR HEMOGLOBIN 30 PG (26.0-33.0); MEAN CORPUSCULAR HGB CONC 33 g/dl (31.0-36.0); MEAN CORPUSCULAR VOLUME 92 fL (82-100); MONOCYTES # (AUTO) 0.6 /CMM (0.1-1.30); MONOCYTES % (AUTO) 5.5 % (2.0-12.0); NEUTROPHILS # (AUTO) 8.4 /CMM (1.8-8.9); NEUTROPHILS % (AUTO) 76.8 % (43.0-81.0); PLATELET COUNT (AUTO) 165 /CMM (150-450); RDW COEFFICIENT OF VARIATION 18.9 (11.5-15.0); RED BLOOD CELL COUNT(AUTO) 3.79 MIL/uL (4.0-5.2); WHITE BLOOD COUNT (AUTO) 10.9 K/uL (4.3-11.0)
[2017-02-26 07:47] VITALS: BP 172/79
[2017-02-26] MEDS: LACTOBACILLUS RHAMNOSUS GG 1 EACH CAP.SPRINK GT SCH ×2 (08:13→17:19)
[2017-02-26] MEDS: POLYVINYL ALCOHOL 15 ML BOTTLE EACHEYE SCH ×2 (08:13→21:03)
[2017-02-26] MEDS: HEPARIN SODIUM, PORCINE 5000 UNITS/1 ML VIAL SQ SCH ×2 (08:14→21:04)
[2017-02-26] MEDS: ASCORBIC ACID 500 MG TABLET GT SCH (08:14)
[2017-02-26] MEDS: VIT B CMPLX 3/FA/VIT C/BIOTIN 1 TAB TABLET PO SCH (08:14)
[2017-02-26] MEDS: HYDROGEN PEROXIDE 480 ML BOTTLE TP SCH ×2 (08:57→22:00)
[2017-02-26] MEDS: CADEXOMER IODINE 40 GM TUBE TP SCH ×5 (09:00→22:00)
[2017-02-26] MEDS: HYDROCODONE/APAP 5/325MG 1 EACH TABLET GT SCH ×2 (14:00→21:39)
[2017-02-26] MEDS: Z GUARD REMEDY 4 OZ OINT TP SCH ×3 (14:30→22:00)
[2017-02-26] MEDS: NYSTATIN TOP POWDER 15 GM BOTTLE TP SCH ×4 (14:30→22:00)
[2017-02-26 15:10] VITALS: BP 127/85
[2017-02-26] MEDS: hydrALAZINE HCL 25 MG TABLET GT SCH (17:19)
[2017-02-26] MEDS: LACTULOSE 10 G/15 ML UDC (PYXIS) GT PRN (17:24)
[2017-02-26 18:27] VITALS: BP 155/74
[2017-02-26 20:27] VITALS: BP 158/73
[2017-02-26] MEDS: INSULIN GLARGINE, 100 UNIT/ML CARTRIDGE SQ SCH (21:50)
[2017-02-26] MEDS: METOPROLOL TARTRATE 50 MG TABLET GT SCH (21:54)
[2017-02-26] MEDS: DAKINS QUARTER STRENGTH (0.125%) 480 ML BOTTLE TOP SCH (22:00)
[2017-02-26] MEDS: HYDROGEL DRESSING 90 GM TUBE TP SCH (22:00)
[2017-02-26] MEDS: RENAL NOVASOURCE 1,000 ML BOTTLE GT PRN (22:21)
[2017-02-27] MEDS: METOCLOPRAMIDE HCL 10 MG/10 ML UDC GT SCH ×4 (00:15→23:13)
[2017-02-27] MEDS: BLOOD SUGAR DIAGNOSTIC 1 EACH STRIP IN SCH ×4 (00:15→23:13)
[2017-02-27] MEDS: PROSOURCE / PROSTAT (PYXIS) 30 ML UDC GT SCH ×5 (00:15→23:13)
[2017-02-27] MEDS: INSULIN REGULAR, HUMAN 100 UNIT/ML 3 ML VIAL SQ PRN ×4 (00:16→23:14)
[2017-02-27 00:32] VITALS: BP 147/83
[2017-02-27] MEDS: ALBUTEROL FS 2.5 MG/3 ML VIAL.NEB NEB SCH ×3 (01:28→20:06)
[2017-02-27] MEDS: IPRATROPIUM NEB FS 0.5 MG/2.5 ML AMPUL.NEB NEB SCH ×3 (01:28→20:06)
[2017-02-27] MEDS: PIPERACILLIN /TAZOBACTAM 2.25 G in IV D5W 50 ML IV SCH ×3 (06:00→22:01)
[2017-02-27 08:00] VITALS: BP 141/69
[2017-02-27] MEDS: HYDROGEL DRESSING 90 GM TUBE TP SCH ×2 (09:00→20:42)
[2017-02-27] MEDS: DAKINS QUARTER STRENGTH (0.125%) 480 ML BOTTLE TOP SCH ×2 (09:00→20:42)
[2017-02-27] MEDS: NYSTATIN TOP POWDER 15 GM BOTTLE TP SCH ×4 (09:00→20:42)
[2017-02-27] MEDS: Z GUARD REMEDY 4 OZ OINT TP SCH ×4 (09:00→20:42)
[2017-02-27] MEDS: CADEXOMER IODINE 40 GM TUBE TP SCH ×5 (09:00→20:42)
[2017-02-27] MEDS: hydrALAZINE HCL 25 MG TABLET GT SCH ×2 (09:39→17:17)
[2017-02-27] MEDS: POLYVINYL ALCOHOL 15 ML BOTTLE EACHEYE SCH ×2 (09:39→20:41)
[2017-02-27] MEDS: HYDROCODONE/APAP 5/325MG 1 EACH TABLET GT SCH ×2 (09:40→20:41)
[2017-02-27] MEDS: HEPARIN SODIUM, PORCINE 5000 UNITS/1 ML VIAL SQ SCH ×2 (09:40→20:42)
[2017-02-27] MEDS: METOPROLOL TARTRATE 50 MG TABLET GT SCH ×2 (09:40→21:25)
[2017-02-27] MEDS: VIT B CMPLX 3/FA/VIT C/BIOTIN 1 TAB TABLET PO SCH (09:40)
[2017-02-27] MEDS: ASCORBIC ACID 500 MG TABLET GT SCH (09:40)
[2017-02-27] MEDS: LACTOBACILLUS RHAMNOSUS GG 1 EACH CAP.SPRINK GT SCH ×2 (09:40→17:18)
[2017-02-27] MEDS: HYDROGEN PEROXIDE 480 ML BOTTLE TP SCH ×2 (10:00→20:42)
[2017-02-27 18:17] VITALS: BP 138/69
--- NOTE | 2017-02-27 18:51 | NUR ---
Clarified with THOMAS Ramsay, ID stop date for IV ATB Vancomycin and Merrem, stated to be given total of 10 days.
[2017-02-27] MEDS: INSULIN GLARGINE, 100 UNIT/ML CARTRIDGE SQ SCH (21:25)
[2017-02-27 22:15] VITALS: BP 161/77
[2017-02-28 00:22] VITALS: BP 152/73
[2017-02-28] MEDS: ALBUTEROL FS 2.5 MG/3 ML VIAL.NEB NEB SCH ×4 (01:28→19:54)
[2017-02-28] MEDS: IPRATROPIUM NEB FS 0.5 MG/2.5 ML AMPUL.NEB NEB SCH ×4 (01:28→19:54)
[2017-02-28] MEDS: ESOMEPRAZOLE MAG TRIHYDRATE 20 MG CAPSULE.DR GT SCH (05:16)
[2017-02-28] MEDS: BLOOD SUGAR DIAGNOSTIC 1 EACH STRIP IN SCH ×3 (05:16→18:00)
[2017-02-28] MEDS: PROSOURCE / PROSTAT (PYXIS) 30 ML UDC GT SCH ×3 (05:16→18:00)
[2017-02-28] MEDS: METOCLOPRAMIDE HCL 10 MG/10 ML UDC GT SCH ×3 (05:16→18:00)
[2017-02-28] MEDS: RENAL NOVASOURCE 1,000 ML BOTTLE GT PRN (05:16)
[2017-02-28] MEDS: INSULIN REGULAR, HUMAN 100 UNIT/ML 3 ML VIAL SQ PRN ×2 (05:17→18:02)
[2017-02-28] MEDS: PIPERACILLIN /TAZOBACTAM 2.25 G in IV D5W 50 ML IV SCH ×3 (06:04→22:00)
[2017-02-28 06:25] VITALS: BP 153/72
[2017-02-28] MEDS: ASCORBIC ACID 500 MG TABLET GT SCH (08:08)
[2017-02-28] MEDS: VIT B CMPLX 3/FA/VIT C/BIOTIN 1 TAB TABLET PO SCH (08:08)
[2017-02-28] MEDS: POLYVINYL ALCOHOL 15 ML BOTTLE EACHEYE SCH ×2 (08:08→21:17)
[2017-02-28] MEDS: LACTOBACILLUS RHAMNOSUS GG 1 EACH CAP.SPRINK GT SCH ×2 (08:08→17:00)
[2017-02-28] MEDS: HEPARIN SODIUM, PORCINE 5000 UNITS/1 ML VIAL SQ SCH ×2 (08:09→21:14)
[2017-02-28 08:35] VITALS: BP 138/60
[2017-02-28] MEDS: HYDROCODONE/APAP 5/325MG 1 EACH TABLET GT SCH ×2 (15:00→21:36)
[2017-02-28] MEDS: NYSTATIN TOP POWDER 15 GM BOTTLE TP SCH ×4 (16:00→22:00)
[2017-02-28] MEDS: DAKINS QUARTER STRENGTH (0.125%) 480 ML BOTTLE TOP SCH ×2 (16:00→22:00)
[2017-02-28] MEDS: HYDROGEN PEROXIDE 480 ML BOTTLE TP SCH ×2 (16:00→22:00)
[2017-02-28] MEDS: Z GUARD REMEDY 4 OZ OINT TP SCH ×4 (16:00→22:00)
[2017-02-28] MEDS: HYDROGEL DRESSING 90 GM TUBE TP SCH ×2 (16:00→22:00)
[2017-02-28] MEDS: CADEXOMER IODINE 40 GM TUBE TP SCH ×5 (16:00→22:00)
[2017-02-28] MEDS: hydrALAZINE HCL 25 MG TABLET GT SCH (17:00)
[2017-02-28 18:29] VITALS: BP 100/57
[2017-02-28] MEDS: D5W IV SCH (20:00)
[2017-02-28] MEDS: VANCOMYCIN IV SCH (20:00)
[2017-02-28 20:24] VITALS: BP 124/73
[2017-02-28] MEDS: INSULIN GLARGINE, 100 UNIT/ML CARTRIDGE SQ SCH (21:15)
[2017-02-28] MEDS: METOPROLOL TARTRATE 50 MG TABLET GT SCH (22:31)
[2017-03-01] MEDS: METOCLOPRAMIDE HCL 10 MG/10 ML UDC GT SCH ×5 (00:07→23:48)
[2017-03-01] MEDS: PROSOURCE / PROSTAT (PYXIS) 30 ML UDC GT SCH ×5 (00:07→23:48)
[2017-03-01] MEDS: INSULIN REGULAR, HUMAN 100 UNIT/ML 3 ML VIAL SQ PRN ×5 (00:07→23:49)
[2017-03-01] MEDS: BLOOD SUGAR DIAGNOSTIC 1 EACH STRIP IN SCH ×5 (00:07→23:48)
[2017-03-01 00:08] VITALS: BP 113/74
[2017-03-01] MEDS: IPRATROPIUM NEB FS 0.5 MG/2.5 ML AMPUL.NEB NEB SCH ×4 (01:15→20:06)
[2017-03-01] MEDS: ALBUTEROL FS 2.5 MG/3 ML VIAL.NEB NEB SCH ×4 (01:15→20:06)
[2017-03-01] MEDS: ESOMEPRAZOLE MAG TRIHYDRATE 20 MG CAPSULE.DR GT SCH (05:31)
[2017-03-01] MEDS: RENAL NOVASOURCE 1,000 ML BOTTLE GT PRN (05:32)
[2017-03-01 06:20] VITALS: BP 102/78
[2017-03-01] MEDS: PIPERACILLIN /TAZOBACTAM 2.25 G in IV D5W 50 ML IV SCH ×3 (06:32→21:33)
[2017-03-01] MEDS: hydrALAZINE HCL 25 MG TABLET GT SCH ×2 (09:00→17:22)
[2017-03-01] MEDS: POLYVINYL ALCOHOL 15 ML BOTTLE EACHEYE SCH ×2 (09:00→21:41)
[2017-03-01] MEDS: CADEXOMER IODINE 40 GM TUBE TP SCH ×5 (09:00→21:42)
[2017-03-01] MEDS: HEPARIN SODIUM, PORCINE 5000 UNITS/1 ML VIAL SQ SCH ×2 (09:00→21:42)
[2017-03-01] MEDS: METOPROLOL TARTRATE 50 MG TABLET GT SCH ×2 (09:00→21:43)
[2017-03-01] MEDS: HYDROCODONE/APAP 5/325MG 1 EACH TABLET GT SCH ×2 (09:00→21:00)
[2017-03-01] MEDS: DAKINS QUARTER STRENGTH (0.125%) 480 ML BOTTLE TOP SCH ×2 (09:00→21:42)
[2017-03-01] MEDS: HYDROGEN PEROXIDE 480 ML BOTTLE TP SCH ×2 (09:00→21:42)
[2017-03-01] MEDS: NYSTATIN TOP POWDER 15 GM BOTTLE TP SCH ×4 (09:00→21:42)
[2017-03-01] MEDS: Z GUARD REMEDY 4 OZ OINT TP SCH ×4 (09:00→21:42)
[2017-03-01] MEDS: VIT B CMPLX 3/FA/VIT C/BIOTIN 1 TAB TABLET PO SCH (09:00)
[2017-03-01] MEDS: HYDROGEL DRESSING 90 GM TUBE TP SCH ×2 (09:00→21:42)
[2017-03-01] MEDS: ASCORBIC ACID 500 MG TABLET GT SCH (09:00)
[2017-03-01] MEDS: LACTOBACILLUS RHAMNOSUS GG 1 EACH CAP.SPRINK GT SCH ×2 (09:00→17:22)
[2017-03-01 16:12] VITALS: BP 126/75
[2017-03-01 16:31] VITALS: BP 96/44
[2017-03-01 18:22] VITALS: BP 90/72
[2017-03-01 19:48] VITALS: BP 109/78
[2017-03-01] MEDS: INSULIN GLARGINE, 100 UNIT/ML CARTRIDGE SQ SCH (21:44)
[2017-03-01] MEDS: CLONIDINE HCL 0.2 MG TABLET GT PRN (23:52)
[2017-03-02] VITALS: BP 109/64
[2017-03-02] MEDS: IPRATROPIUM NEB FS 0.5 MG/2.5 ML AMPUL.NEB NEB SCH ×4 (02:16→20:19)
[2017-03-02] MEDS: ALBUTEROL FS 2.5 MG/3 ML VIAL.NEB NEB SCH ×4 (02:16→20:19)
[2017-03-02] MEDS: ESOMEPRAZOLE MAG TRIHYDRATE 20 MG CAPSULE.DR GT SCH (05:21)
[2017-03-02] MEDS: METOCLOPRAMIDE HCL 10 MG/10 ML UDC GT SCH ×3 (05:21→18:03)
[2017-03-02] MEDS: PROSOURCE / PROSTAT (PYXIS) 30 ML UDC GT SCH ×3 (05:21→18:03)
[2017-03-02] MEDS: INSULIN REGULAR, HUMAN 100 UNIT/ML 3 ML VIAL SQ PRN ×3 (05:37→18:27)
[2017-03-02] MEDS: BLOOD SUGAR DIAGNOSTIC 1 EACH STRIP IN SCH ×3 (05:37→18:26)
[2017-03-02] MEDS: RENAL NOVASOURCE 1,000 ML BOTTLE GT PRN (05:39)
[2017-03-02 06:00] VITALS: BP 143/75
[2017-03-02] MEDS: PIPERACILLIN /TAZOBACTAM 2.25 G in IV D5W 50 ML IV SCH ×3 (06:00→21:07)
[2017-03-02 08:23] VITALS: BP 98/45
[2017-03-02] MEDS: NYSTATIN TOP POWDER 15 GM BOTTLE TP SCH ×4 (09:00→21:33)
[2017-03-02] MEDS: hydrALAZINE HCL 25 MG TABLET GT SCH ×2 (09:00→17:00)
[2017-03-02] MEDS: HYDROGEN PEROXIDE 480 ML BOTTLE TP SCH ×2 (09:00→21:33)
[2017-03-02] MEDS: Z GUARD REMEDY 4 OZ OINT TP SCH ×4 (09:00→21:33)
[2017-03-02] MEDS: DAKINS QUARTER STRENGTH (0.125%) 480 ML BOTTLE TOP SCH ×2 (09:00→21:33)
[2017-03-02] MEDS: HYDROGEL DRESSING 90 GM TUBE TP SCH ×2 (09:00→21:33)
[2017-03-02] MEDS: CADEXOMER IODINE 40 GM TUBE TP SCH ×5 (09:00→21:33)
[2017-03-02] MEDS: POLYVINYL ALCOHOL 15 ML BOTTLE EACHEYE SCH ×2 (09:58→21:32)
[2017-03-02] MEDS: LACTOBACILLUS RHAMNOSUS GG 1 EACH CAP.SPRINK GT SCH ×2 (09:58→17:00)
[2017-03-02] MEDS: METOPROLOL TARTRATE 50 MG TABLET GT SCH ×2 (09:58→21:34)
[2017-03-02] MEDS: HYDROCODONE/APAP 5/325MG 1 EACH TABLET GT SCH ×2 (09:59→21:32)
[2017-03-02] MEDS: HEPARIN SODIUM, PORCINE 5000 UNITS/1 ML VIAL SQ SCH ×2 (09:59→21:33)
[2017-03-02] MEDS: VIT B CMPLX 3/FA/VIT C/BIOTIN 1 TAB TABLET PO SCH (09:59)
[2017-03-02] MEDS: ASCORBIC ACID 500 MG TABLET GT SCH (09:59)
--- NOTE | 2017-03-02 18:20 | NUR ---
THOMAS Ramsay reviewed pt's CXR result. Received order to continue Vancomycin and Zosyn for 5 more days from today.
[2017-03-02 20:00] VITALS: BP 133/65
[2017-03-02] MEDS: INSULIN GLARGINE, 100 UNIT/ML CARTRIDGE SQ SCH (21:34)
[2017-03-03] MEDS: BLOOD SUGAR DIAGNOSTIC 1 EACH STRIP IN SCH ×4 (00:21→17:44)
[2017-03-03] MEDS: PROSOURCE / PROSTAT (PYXIS) 30 ML UDC GT SCH ×4 (00:21→17:10)
[2017-03-03] MEDS: METOCLOPRAMIDE HCL 10 MG/10 ML UDC GT SCH ×4 (00:21→17:10)
[2017-03-03] MEDS: INSULIN REGULAR, HUMAN 100 UNIT/ML 3 ML VIAL SQ PRN ×3 (00:22→17:45)
[2017-03-03] MEDS: ALBUTEROL FS 2.5 MG/3 ML VIAL.NEB NEB SCH ×4 (02:01→19:13)
[2017-03-03] MEDS: IPRATROPIUM NEB FS 0.5 MG/2.5 ML AMPUL.NEB NEB SCH ×4 (02:01→19:13)
[2017-03-03 04:05] VITALS: BP 134/69
[2017-03-03] MEDS: PIPERACILLIN /TAZOBACTAM 2.25 G in IV D5W 50 ML IV SCH ×3 (05:17→22:00)
[2017-03-03] MEDS: ESOMEPRAZOLE MAG TRIHYDRATE 20 MG CAPSULE.DR GT SCH (05:29)
[2017-03-03 06:13] VITALS: BP 119/62
[2017-03-03 08:18] VITALS: BP 129/56
[2017-03-03] MEDS: Z GUARD REMEDY 4 OZ OINT TP SCH ×4 (09:00→21:46)
[2017-03-03] MEDS: POLYVINYL ALCOHOL 15 ML BOTTLE EACHEYE SCH ×2 (09:00→21:45)
[2017-03-03] MEDS: VIT B CMPLX 3/FA/VIT C/BIOTIN 1 TAB TABLET PO SCH (09:00)
[2017-03-03] MEDS: HEPARIN SODIUM, PORCINE 5000 UNITS/1 ML VIAL SQ SCH ×2 (09:00→21:46)
[2017-03-03] MEDS: HYDROGEN PEROXIDE 480 ML BOTTLE TP SCH ×2 (09:00→21:46)
[2017-03-03] MEDS: CADEXOMER IODINE 40 GM TUBE TP SCH ×5 (09:00→21:46)
[2017-03-03] MEDS: HYDROCODONE/APAP 5/325MG 1 EACH TABLET GT SCH ×2 (09:00→21:45)
[2017-03-03] MEDS: HYDROGEL DRESSING 90 GM TUBE TP SCH ×2 (09:00→21:46)
[2017-03-03] MEDS: LACTOBACILLUS RHAMNOSUS GG 1 EACH CAP.SPRINK GT SCH ×2 (09:00→17:10)
[2017-03-03] MEDS: ASCORBIC ACID 500 MG TABLET GT SCH (09:00)
[2017-03-03] MEDS: DAKINS QUARTER STRENGTH (0.125%) 480 ML BOTTLE TOP SCH ×2 (09:00→21:46)
[2017-03-03] MEDS: NYSTATIN TOP POWDER 15 GM BOTTLE TP SCH ×4 (09:00→21:46)
[2017-03-03 15:14] VITALS: BP 145/78
[2017-03-03] MEDS: hydrALAZINE HCL 25 MG TABLET GT SCH (17:00)
--- NOTE | 2017-03-03 17:49 | NUR ---
Late entry for 03/02/171899 Seen by THOMAS Leija. Showed her the pt's CXR result. No new order.
[2017-03-03 18:26] VITALS: BP 127/73
[2017-03-03 19:43] VITALS: BP 113/56
[2017-03-03] MEDS: VANCOMYCIN IV SCH (20:00)
[2017-03-03] MEDS: D5W IV SCH (20:00)
[2017-03-03] MEDS: INSULIN GLARGINE, 100 UNIT/ML CARTRIDGE SQ SCH (21:47)
[2017-03-03] MEDS: METOPROLOL TARTRATE 50 MG TABLET GT SCH (21:47)
[2017-03-04] MEDS: BLOOD SUGAR DIAGNOSTIC 1 EACH STRIP IN SCH ×4 (00:09→17:31)
[2017-03-04] MEDS: METOCLOPRAMIDE HCL 10 MG/10 ML UDC GT SCH ×4 (00:09→18:19)
[2017-03-04] MEDS: PROSOURCE / PROSTAT (PYXIS) 30 ML UDC GT SCH ×4 (00:09→18:19)
[2017-03-04] MEDS: INSULIN REGULAR, HUMAN 100 UNIT/ML 3 ML VIAL SQ PRN ×4 (00:10→17:42)
[2017-03-04 00:12] VITALS: BP 109/64
[2017-03-04] MEDS: IPRATROPIUM NEB FS 0.5 MG/2.5 ML AMPUL.NEB NEB SCH ×4 (01:32→20:14)
[2017-03-04] MEDS: ALBUTEROL FS 2.5 MG/3 ML VIAL.NEB NEB SCH ×4 (01:32→20:14)
[2017-03-04] MEDS: PIPERACILLIN /TAZOBACTAM 2.25 G in IV D5W 50 ML IV SCH ×3 (05:04→22:27)
[2017-03-04] MEDS: ESOMEPRAZOLE MAG TRIHYDRATE 20 MG CAPSULE.DR GT SCH (05:30)
[2017-03-04 06:15] VITALS: BP 114/62
[2017-03-04 07:52] VITALS: BP 165/73
[2017-03-04] MEDS: POLYVINYL ALCOHOL 15 ML BOTTLE EACHEYE SCH ×2 (09:00→21:41)
[2017-03-04] MEDS: HYDROCODONE/APAP 5/325MG 1 EACH TABLET GT SCH ×2 (09:00→21:42)
[2017-03-04] MEDS: LACTOBACILLUS RHAMNOSUS GG 1 EACH CAP.SPRINK GT SCH ×2 (09:28→17:00)
[2017-03-04] MEDS: METOPROLOL TARTRATE 50 MG TABLET GT SCH ×2 (09:28→21:44)
[2017-03-04] MEDS: hydrALAZINE HCL 25 MG TABLET GT SCH ×2 (09:28→17:31)
[2017-03-04] MEDS: ASCORBIC ACID 500 MG TABLET GT SCH (09:29)
[2017-03-04] MEDS: VIT B CMPLX 3/FA/VIT C/BIOTIN 1 TAB TABLET PO SCH (09:29)
[2017-03-04] MEDS: HEPARIN SODIUM, PORCINE 5000 UNITS/1 ML VIAL SQ SCH ×2 (09:31→21:42)
[2017-03-04] MEDS: NYSTATIN TOP POWDER 15 GM BOTTLE TP SCH ×4 (10:00→21:43)
[2017-03-04] MEDS: HYDROGEL DRESSING 90 GM TUBE TP SCH ×2 (10:00→21:42)
[2017-03-04] MEDS: DAKINS QUARTER STRENGTH (0.125%) 480 ML BOTTLE TOP SCH ×2 (10:00→21:42)
[2017-03-04] MEDS: HYDROGEN PEROXIDE 480 ML BOTTLE TP SCH ×2 (10:00→21:42)
[2017-03-04] MEDS: Z GUARD REMEDY 4 OZ OINT TP SCH ×4 (10:00→21:43)
[2017-03-04] MEDS: CADEXOMER IODINE 40 GM TUBE TP SCH ×5 (10:00→21:43)
[2017-03-04 12:00] VITALS: BP 127/67
[2017-03-04] MEDS: CLONIDINE HCL 0.2 MG TABLET GT PRN ×2 (12:48→18:20)
[2017-03-04 18:00] VITALS: BP 134/60
[2017-03-04 21:23] VITALS: BP 119/56
[2017-03-04] MEDS: INSULIN GLARGINE, 100 UNIT/ML CARTRIDGE SQ SCH (22:38)
[2017-03-05 00:15] VITALS: BP 116/57
[2017-03-05] MEDS: PROSOURCE / PROSTAT (PYXIS) 30 ML UDC GT SCH ×4 (00:28→17:50)
[2017-03-05] MEDS: METOCLOPRAMIDE HCL 10 MG/10 ML UDC GT SCH ×4 (00:28→17:50)
[2017-03-05] MEDS: BLOOD SUGAR DIAGNOSTIC 1 EACH STRIP IN SCH ×4 (00:29→17:50)
[2017-03-05] MEDS: INSULIN REGULAR, HUMAN 100 UNIT/ML 3 ML VIAL SQ PRN ×3 (00:30→17:53)
[2017-03-05] MEDS: ALBUTEROL FS 2.5 MG/3 ML VIAL.NEB NEB SCH ×4 (01:02→19:56)
[2017-03-05] MEDS: IPRATROPIUM NEB FS 0.5 MG/2.5 ML AMPUL.NEB NEB SCH ×4 (01:02→19:56)
[2017-03-05] MEDS: RENAL NOVASOURCE 1,000 ML BOTTLE GT PRN (02:06)
[2017-03-05] MEDS: ESOMEPRAZOLE MAG TRIHYDRATE 20 MG CAPSULE.DR GT SCH (05:37)
[2017-03-05] MEDS: PIPERACILLIN /TAZOBACTAM 2.25 G in IV D5W 50 ML IV SCH ×3 (06:05→22:32)
[2017-03-05 06:18] VITALS: BP 144/75
[2017-03-05 07:55] VITALS: BP 156/75
[2017-03-05] MEDS: ASCORBIC ACID 500 MG TABLET GT SCH (08:11)
[2017-03-05] MEDS: LACTOBACILLUS RHAMNOSUS GG 1 EACH CAP.SPRINK GT SCH ×2 (08:11→17:50)
[2017-03-05] MEDS: POLYVINYL ALCOHOL 15 ML BOTTLE EACHEYE SCH ×2 (08:11→21:00)
[2017-03-05] MEDS: HEPARIN SODIUM, PORCINE 5000 UNITS/1 ML VIAL SQ SCH ×2 (08:16→21:00)
[2017-03-05] MEDS: VIT B CMPLX 3/FA/VIT C/BIOTIN 1 TAB TABLET PO SCH (08:17)
[2017-03-05 13:55] VITALS: BP 125/73
[2017-03-05] MEDS: HYDROCODONE/APAP 5/325MG 1 EACH TABLET GT SCH ×2 (14:14→21:00)
[2017-03-05] MEDS: Z GUARD REMEDY 4 OZ OINT TP SCH ×4 (14:45→21:00)
[2017-03-05] MEDS: DAKINS QUARTER STRENGTH (0.125%) 480 ML BOTTLE TOP SCH ×2 (14:45→21:00)
[2017-03-05] MEDS: HYDROGEL DRESSING 90 GM TUBE TP SCH ×2 (14:45→21:00)
[2017-03-05] MEDS: HYDROGEN PEROXIDE 480 ML BOTTLE TP SCH ×2 (14:45→21:00)
[2017-03-05] MEDS: NYSTATIN TOP POWDER 15 GM BOTTLE TP SCH ×4 (14:45→21:00)
[2017-03-05] MEDS: CADEXOMER IODINE 40 GM TUBE TP SCH ×5 (14:45→21:00)
[2017-03-05] MEDS: hydrALAZINE HCL 25 MG TABLET GT SCH (17:43)
[2017-03-05 18:00] VITALS: BP 133/73
[2017-03-05 19:44] VITALS: BP 137/67
--- NOTE | 2017-03-05 19:45 | NUR ---
Spoke to IV pharmacist Rosie,informed her that Vancomycin trough in AM was missed.She said it's ok we can still give the dose for tonight 400mg and will send another dose for Thursday no need for trough.
[2017-03-05] MEDS: VANCOMYCIN IV SCH (20:03)
[2017-03-05] MEDS: D5W IV SCH (20:03)
[2017-03-05] MEDS: METOPROLOL TARTRATE 50 MG TABLET GT SCH (22:05)
[2017-03-05] MEDS: INSULIN GLARGINE, 100 UNIT/ML CARTRIDGE SQ SCH (22:05)
[2017-03-06] VITALS (9 sets, daily range): BP systolic 77–174; BP diastolic 53–89
[2017-03-06] MEDS: BLOOD SUGAR DIAGNOSTIC 1 EACH STRIP IN SCH ×5 (00:27→23:59)
[2017-03-06] MEDS: PROSOURCE / PROSTAT (PYXIS) 30 ML UDC GT SCH ×5 (00:27→23:59)
[2017-03-06] MEDS: CLONIDINE HCL 0.2 MG TABLET GT PRN ×3 (00:27→13:14)
[2017-03-06] MEDS: METOCLOPRAMIDE HCL 10 MG/10 ML UDC GT SCH ×5 (00:27→23:59)
[2017-03-06] MEDS: INSULIN REGULAR, HUMAN 100 UNIT/ML 3 ML VIAL SQ PRN ×4 (00:28→17:47)
[2017-03-06] MEDS: ALBUTEROL FS 2.5 MG/3 ML VIAL.NEB NEB SCH ×4 (02:03→19:30)
[2017-03-06] MEDS: IPRATROPIUM NEB FS 0.5 MG/2.5 ML AMPUL.NEB NEB SCH ×4 (02:03→19:30)
[2017-03-06] MEDS: ESOMEPRAZOLE MAG TRIHYDRATE 20 MG CAPSULE.DR GT SCH (06:15)
[2017-03-06] MEDS: RENAL NOVASOURCE 1,000 ML BOTTLE GT PRN (06:16)
[2017-03-06] MEDS: PIPERACILLIN /TAZOBACTAM 2.25 G in IV D5W 50 ML IV SCH ×3 (06:20→22:00)
[2017-03-06] MEDS: ASCORBIC ACID 500 MG TABLET GT SCH (08:34)
[2017-03-06] MEDS: METOPROLOL TARTRATE 50 MG TABLET GT SCH ×2 (08:34→21:14)
[2017-03-06] MEDS: POLYVINYL ALCOHOL 15 ML BOTTLE EACHEYE SCH ×2 (08:34→21:12)
[2017-03-06] MEDS: hydrALAZINE HCL 25 MG TABLET GT SCH ×2 (08:34→17:47)
[2017-03-06] MEDS: LACTOBACILLUS RHAMNOSUS GG 1 EACH CAP.SPRINK GT SCH ×2 (08:34→17:47)
[2017-03-06] MEDS: HYDROCODONE/APAP 5/325MG 1 EACH TABLET GT SCH ×2 (08:34→21:13)
[2017-03-06] MEDS: VIT B CMPLX 3/FA/VIT C/BIOTIN 1 TAB TABLET PO SCH (08:35)
[2017-03-06] MEDS: HEPARIN SODIUM, PORCINE 5000 UNITS/1 ML VIAL SQ SCH ×2 (08:35→21:13)
[2017-03-06] MEDS: DAKINS QUARTER STRENGTH (0.125%) 480 ML BOTTLE TOP SCH ×2 (09:42→21:13)
[2017-03-06] MEDS: Z GUARD REMEDY 4 OZ OINT TP SCH ×4 (09:43→21:14)
[2017-03-06] MEDS: CADEXOMER IODINE 40 GM TUBE TP SCH ×5 (09:43→21:13)
[2017-03-06] MEDS: HYDROGEL DRESSING 90 GM TUBE TP SCH ×2 (09:43→21:13)
[2017-03-06] MEDS: HYDROGEN PEROXIDE 480 ML BOTTLE TP SCH ×2 (09:43→21:13)
[2017-03-06] MEDS: NYSTATIN TOP POWDER 15 GM BOTTLE TP SCH ×4 (09:43→21:14)
[2017-03-06] MEDS: INSULIN GLARGINE, 100 UNIT/ML CARTRIDGE SQ SCH (21:15)
[2017-03-07] VITALS (7 sets, daily range): BP systolic 152–185; BP diastolic 75–87
[2017-03-07] MEDS: ALBUTEROL FS 2.5 MG/3 ML VIAL.NEB NEB SCH ×4 (02:16→20:06)
[2017-03-07] MEDS: IPRATROPIUM NEB FS 0.5 MG/2.5 ML AMPUL.NEB NEB SCH ×4 (02:16→20:06)
[2017-03-07] MEDS: PIPERACILLIN /TAZOBACTAM 2.25 G in IV D5W 50 ML IV SCH ×2 (05:47→22:00)
[2017-03-07] MEDS: ESOMEPRAZOLE MAG TRIHYDRATE 20 MG CAPSULE.DR GT SCH (06:03)
[2017-03-07] MEDS: BLOOD SUGAR DIAGNOSTIC 1 EACH STRIP IN SCH ×4 (06:03→23:38)
[2017-03-07] MEDS: PROSOURCE / PROSTAT (PYXIS) 30 ML UDC GT SCH ×3 (06:03→17:10)
[2017-03-07] MEDS: METOCLOPRAMIDE HCL 10 MG/10 ML UDC GT SCH ×3 (06:03→17:10)
[2017-03-07] MEDS: RENAL NOVASOURCE 1,000 ML BOTTLE GT PRN (06:04)
[2017-03-07] MEDS: INSULIN REGULAR, HUMAN 100 UNIT/ML 3 ML VIAL SQ PRN ×4 (06:05→23:39)
[2017-03-07] MEDS: CLONIDINE HCL 0.2 MG TABLET GT PRN ×2 (06:07→17:13)
[2017-03-07] MEDS: LACTOBACILLUS RHAMNOSUS GG 1 EACH CAP.SPRINK GT SCH ×2 (08:39→17:10)
[2017-03-07] MEDS: VIT B CMPLX 3/FA/VIT C/BIOTIN 1 TAB TABLET PO SCH (08:39)
[2017-03-07] MEDS: HEPARIN SODIUM, PORCINE 5000 UNITS/1 ML VIAL SQ SCH ×2 (08:39→21:51)
[2017-03-07] MEDS: ASCORBIC ACID 500 MG TABLET GT SCH (08:39)
[2017-03-07] MEDS: POLYVINYL ALCOHOL 15 ML BOTTLE EACHEYE SCH ×2 (08:39→21:50)
[2017-03-07] MEDS: HYDROCODONE/APAP 5/325MG 1 EACH TABLET GT SCH ×2 (16:50→21:51)
[2017-03-07] MEDS: hydrALAZINE HCL 25 MG TABLET GT SCH (17:13)
[2017-03-07] MEDS: DAKINS QUARTER STRENGTH (0.125%) 480 ML BOTTLE TOP SCH ×2 (17:20→21:51)
[2017-03-07] MEDS: HYDROGEN PEROXIDE 480 ML BOTTLE TP SCH ×2 (17:20→21:52)
[2017-03-07] MEDS: CADEXOMER IODINE 40 GM TUBE TP SCH ×5 (17:20→21:52)
[2017-03-07] MEDS: NYSTATIN TOP POWDER 15 GM BOTTLE TP SCH ×4 (17:20→21:52)
[2017-03-07] MEDS: Z GUARD REMEDY 4 OZ OINT TP SCH ×4 (17:20→21:52)
[2017-03-07] MEDS: HYDROGEL DRESSING 90 GM TUBE TP SCH ×2 (17:20→21:51)
[2017-03-07] MEDS: VANCOMYCIN IV SCH (20:00)
[2017-03-07] MEDS: D5W IV SCH (20:00)
[2017-03-07] MEDS: METOPROLOL TARTRATE 50 MG TABLET GT SCH (21:53)
[2017-03-07] MEDS: INSULIN GLARGINE, 100 UNIT/ML CARTRIDGE SQ SCH (22:09)
[2017-03-08] VITALS: BP 151/78
[2017-03-08] MEDS: METOCLOPRAMIDE HCL 10 MG/10 ML UDC GT SCH ×5 (00:26→23:25)
[2017-03-08] MEDS: PROSOURCE / PROSTAT (PYXIS) 30 ML UDC GT SCH ×5 (00:26→23:25)
[2017-03-08] MEDS: ALBUTEROL FS 2.5 MG/3 ML VIAL.NEB NEB SCH ×4 (00:54→19:50)
[2017-03-08] MEDS: IPRATROPIUM NEB FS 0.5 MG/2.5 ML AMPUL.NEB NEB SCH ×4 (00:54→19:50)
[2017-03-08] MEDS: RENAL NOVASOURCE 1,000 ML BOTTLE GT PRN (05:36)
[2017-03-08] MEDS: ESOMEPRAZOLE MAG TRIHYDRATE 20 MG CAPSULE.DR GT SCH (05:36)
[2017-03-08 06:15] VITALS: BP 195/88
[2017-03-08] MEDS: BLOOD SUGAR DIAGNOSTIC 1 EACH STRIP IN SCH ×4 (06:18→23:25)
[2017-03-08] MEDS: INSULIN REGULAR, HUMAN 100 UNIT/ML 3 ML VIAL SQ PRN ×4 (06:19→23:26)
[2017-03-08] MEDS: CLONIDINE HCL 0.2 MG TABLET GT PRN (06:20)
[2017-03-08 07:36] VITALS: BP 154/75
[2017-03-08] MEDS: POLYVINYL ALCOHOL 15 ML BOTTLE EACHEYE SCH ×2 (09:29→20:36)
[2017-03-08] MEDS: LACTOBACILLUS RHAMNOSUS GG 1 EACH CAP.SPRINK GT SCH ×2 (09:30→16:28)
[2017-03-08] MEDS: VIT B CMPLX 3/FA/VIT C/BIOTIN 1 TAB TABLET PO SCH (09:30)
[2017-03-08] MEDS: METOPROLOL TARTRATE 50 MG TABLET GT SCH ×2 (09:30→21:13)
[2017-03-08] MEDS: HEPARIN SODIUM, PORCINE 5000 UNITS/1 ML VIAL SQ SCH ×2 (09:30→20:37)
[2017-03-08] MEDS: HYDROCODONE/APAP 5/325MG 1 EACH TABLET GT SCH ×2 (09:30→20:37)
[2017-03-08] MEDS: hydrALAZINE HCL 25 MG TABLET GT SCH ×2 (09:30→16:26)
[2017-03-08] MEDS: ASCORBIC ACID 500 MG TABLET GT SCH (09:30)
[2017-03-08] MEDS: HYDROGEL DRESSING 90 GM TUBE TP SCH ×2 (09:31→21:12)
[2017-03-08] MEDS: DAKINS QUARTER STRENGTH (0.125%) 480 ML BOTTLE TOP SCH ×2 (09:31→21:12)
[2017-03-08] MEDS: HYDROGEN PEROXIDE 480 ML BOTTLE TP SCH ×2 (09:32→21:12)
[2017-03-08] MEDS: NYSTATIN TOP POWDER 15 GM BOTTLE TP SCH ×4 (09:32→21:12)
[2017-03-08] MEDS: CADEXOMER IODINE 40 GM TUBE TP SCH ×5 (09:32→21:12)
[2017-03-08] MEDS: NEOMY SULF/BACITRAC ZN/POLY 15 GM TUBE TP SCH ×2 (09:33→21:12)
[2017-03-08] MEDS: Z GUARD REMEDY 4 OZ OINT TP SCH ×4 (09:33→21:13)
[2017-03-08 15:31] VITALS: BP 150/75
[2017-03-08 18:19] VITALS: BP 154/77
[2017-03-08 19:32] VITALS: BP 141/71
[2017-03-08] MEDS: INSULIN GLARGINE, 100 UNIT/ML CARTRIDGE SQ SCH (21:13)
[2017-03-09 00:40] VITALS: BP 140/70
[2017-03-09] MEDS: IPRATROPIUM NEB FS 0.5 MG/2.5 ML AMPUL.NEB NEB SCH ×4 (02:08→19:32)
[2017-03-09] MEDS: ALBUTEROL FS 2.5 MG/3 ML VIAL.NEB NEB SCH ×4 (02:08→19:32)
[2017-03-09] MEDS: ESOMEPRAZOLE MAG TRIHYDRATE 20 MG CAPSULE.DR GT SCH (05:31)
[2017-03-09] MEDS: METOCLOPRAMIDE HCL 10 MG/10 ML UDC GT SCH ×4 (05:31→23:39)
[2017-03-09] MEDS: PROSOURCE / PROSTAT (PYXIS) 30 ML UDC GT SCH ×4 (05:31→23:39)
[2017-03-09] MEDS: BLOOD SUGAR DIAGNOSTIC 1 EACH STRIP IN SCH ×4 (05:36→23:39)
[2017-03-09] MEDS: INSULIN REGULAR, HUMAN 100 UNIT/ML 3 ML VIAL SQ PRN ×4 (05:37→23:40)
[2017-03-09] MEDS: RENAL NOVASOURCE 1,000 ML BOTTLE GT PRN (05:55)
[2017-03-09 06:21] VITALS: BP 144/80
[2017-03-09 07:52] VITALS: BP 161/99
[2017-03-09] MEDS: POLYVINYL ALCOHOL 15 ML BOTTLE EACHEYE SCH ×2 (09:36→20:47)
[2017-03-09] MEDS: hydrALAZINE HCL 25 MG TABLET GT SCH ×2 (09:36→17:21)
[2017-03-09] MEDS: LACTOBACILLUS RHAMNOSUS GG 1 EACH CAP.SPRINK GT SCH ×2 (09:36→17:21)
[2017-03-09] MEDS: VIT B CMPLX 3/FA/VIT C/BIOTIN 1 TAB TABLET PO SCH (09:37)
[2017-03-09] MEDS: ASCORBIC ACID 500 MG TABLET GT SCH (09:37)
[2017-03-09] MEDS: HEPARIN SODIUM, PORCINE 5000 UNITS/1 ML VIAL SQ SCH ×2 (09:37→20:47)
[2017-03-09] MEDS: METOPROLOL TARTRATE 50 MG TABLET GT SCH ×2 (09:37→21:20)
[2017-03-09 12:00] VITALS: BP 146/73
[2017-03-09] MEDS: HYDROCODONE/APAP 5/325MG 1 EACH TABLET GT SCH ×2 (13:00→20:47)
[2017-03-09] MEDS: CLONIDINE HCL 0.2 MG TABLET GT PRN (13:01)
[2017-03-09] MEDS: CADEXOMER IODINE 40 GM TUBE TP SCH ×5 (14:00→21:20)
[2017-03-09] MEDS: Z GUARD REMEDY 4 OZ OINT TP SCH ×4 (14:00→21:20)
[2017-03-09] MEDS: HYDROGEN PEROXIDE 480 ML BOTTLE TP SCH ×2 (14:00→21:20)
[2017-03-09] MEDS: HYDROGEL DRESSING 90 GM TUBE TP SCH ×3 (14:00→21:19)
[2017-03-09] MEDS: DAKINS QUARTER STRENGTH (0.125%) 480 ML BOTTLE TOP SCH ×2 (14:00→21:19)
[2017-03-09] MEDS: NYSTATIN TOP POWDER 15 GM BOTTLE TP SCH ×4 (14:00→21:20)
[2017-03-09] MEDS: NEOMY SULF/BACITRAC ZN/POLY 15 GM TUBE TP SCH (14:00)
[2017-03-09 18:00] VITALS: BP 148/76
--- NOTE | 2017-03-09 18:41 | NUR ---
Right buttock excoriation has some yellowish and blackish discolorations. Received order to change treatment to Hydrogel and Mepilex q shift and PRN for 14 days. Also received order for wound consult.
[2017-03-09 19:56] VITALS: BP 125/67
[2017-03-09] MEDS: INSULIN GLARGINE, 100 UNIT/ML CARTRIDGE SQ SCH (21:21)
[2017-03-10 00:50] VITALS: BP 128/74
[2017-03-10] MEDS: ALBUTEROL FS 2.5 MG/3 ML VIAL.NEB NEB SCH ×4 (01:46→20:19)
[2017-03-10] MEDS: IPRATROPIUM NEB FS 0.5 MG/2.5 ML AMPUL.NEB NEB SCH ×4 (01:46→20:19)
[2017-03-10] MEDS: ESOMEPRAZOLE MAG TRIHYDRATE 20 MG CAPSULE.DR GT SCH (05:58)
[2017-03-10] MEDS: METOCLOPRAMIDE HCL 10 MG/10 ML UDC GT SCH ×4 (05:58→23:10)
[2017-03-10] MEDS: PROSOURCE / PROSTAT (PYXIS) 30 ML UDC GT SCH ×4 (05:58→23:10)
[2017-03-10] MEDS: BLOOD SUGAR DIAGNOSTIC 1 EACH STRIP IN SCH ×4 (05:58→23:10)
[2017-03-10] MEDS: INSULIN REGULAR, HUMAN 100 UNIT/ML 3 ML VIAL SQ PRN ×2 (05:59→23:10)
[2017-03-10 06:28] VITALS: BP 134/74
[2017-03-10] MEDS: LACTOBACILLUS RHAMNOSUS GG 1 EACH CAP.SPRINK GT SCH ×2 (08:18→17:22)
[2017-03-10] MEDS: POLYVINYL ALCOHOL 15 ML BOTTLE EACHEYE SCH ×2 (08:18→20:31)
[2017-03-10] MEDS: VIT B CMPLX 3/FA/VIT C/BIOTIN 1 TAB TABLET PO SCH (08:18)
[2017-03-10] MEDS: ASCORBIC ACID 500 MG TABLET GT SCH (08:18)
[2017-03-10] MEDS: HEPARIN SODIUM, PORCINE 5000 UNITS/1 ML VIAL SQ SCH ×2 (08:21→20:32)
[2017-03-10 08:40] VITALS: BP 150/92
[2017-03-10] MEDS: HYDROCODONE/APAP 5/325MG 1 EACH TABLET GT SCH ×3 (09:00→20:32)
--- NOTE | 2017-03-10 09:20 | NUR ---
WOUND CARE CONSULT: PT OFF UNIT AT THIS TIME. WILL SEE PT PT CONDITION PERMITS.
[2017-03-10] MEDS: NYSTATIN TOP POWDER 15 GM BOTTLE TP SCH ×4 (14:30→21:19)
[2017-03-10] MEDS: HYDROGEL DRESSING 90 GM TUBE TP SCH ×4 (14:30→21:19)
[2017-03-10] MEDS: DAKINS QUARTER STRENGTH (0.125%) 480 ML BOTTLE TOP SCH ×2 (14:30→21:19)
[2017-03-10] MEDS: CADEXOMER IODINE 40 GM TUBE TP SCH ×5 (14:30→21:19)
[2017-03-10] MEDS: Z GUARD REMEDY 4 OZ OINT TP SCH ×4 (14:30→21:20)
[2017-03-10] MEDS: HYDROGEN PEROXIDE 480 ML BOTTLE TP SCH ×2 (14:30→21:19)
[2017-03-10] MEDS: RENAL NOVASOURCE 1,000 ML BOTTLE GT PRN (16:18)
[2017-03-10] MEDS: hydrALAZINE HCL 25 MG TABLET GT SCH (17:22)
[2017-03-10 18:52] VITALS: BP 122/61
[2017-03-10 19:35] VITALS: BP 131/82
[2017-03-10] MEDS: INSULIN GLARGINE, 100 UNIT/ML CARTRIDGE SQ SCH (21:20)
[2017-03-10] MEDS: METOPROLOL TARTRATE 50 MG TABLET GT SCH (21:20)
[2017-03-11 00:39] VITALS: BP 130/80
[2017-03-11] MEDS: ALBUTEROL FS 2.5 MG/3 ML VIAL.NEB NEB SCH ×4 (01:56→19:52)
[2017-03-11] MEDS: IPRATROPIUM NEB FS 0.5 MG/2.5 ML AMPUL.NEB NEB SCH ×4 (01:56→19:52)
[2017-03-11] MEDS: METOCLOPRAMIDE HCL 10 MG/10 ML UDC GT SCH ×4 (05:30→23:16)
[2017-03-11] MEDS: ESOMEPRAZOLE MAG TRIHYDRATE 20 MG CAPSULE.DR GT SCH (05:30)
[2017-03-11] MEDS: PROSOURCE / PROSTAT (PYXIS) 30 ML UDC GT SCH ×4 (05:30→23:16)
[2017-03-11] MEDS: BLOOD SUGAR DIAGNOSTIC 1 EACH STRIP IN SCH ×4 (05:47→23:16)
[2017-03-11] MEDS: INSULIN REGULAR, HUMAN 100 UNIT/ML 3 ML VIAL SQ PRN ×4 (05:48→23:17)
[2017-03-11 06:08] VITALS: BP 136/76
[2017-03-11] MEDS: CADEXOMER IODINE 40 GM TUBE TP SCH ×5 (09:00→21:21)
[2017-03-11] MEDS: HYDROGEN PEROXIDE 480 ML BOTTLE TP SCH ×2 (09:00→21:20)
[2017-03-11] MEDS: Z GUARD REMEDY 4 OZ OINT TP SCH ×5 (09:00→21:21)
[2017-03-11] MEDS: NYSTATIN TOP POWDER 15 GM BOTTLE TP SCH ×4 (09:00→21:21)
[2017-03-11] MEDS: HYDROGEL DRESSING 90 GM TUBE TP SCH ×4 (09:00→21:20)
[2017-03-11] MEDS: DAKINS QUARTER STRENGTH (0.125%) 480 ML BOTTLE TOP SCH ×2 (09:00→21:20)
--- NOTE | 2017-03-11 09:01 | NUR ---
WOUND CARE CONSULT: PT SEEN FOR RT BUTTOCK EXCORIATED AREA WHICH IS RED AND PINK. AREA IS MOIST WITH SLIGHT FIRMNESS NOTED. NO ODOR NOTED. RECOMMENDATIONS MADE FOR Z GUARD AND MEPILEX. SKIN TO BE KEPT CLEAN AND DRY. DISCUSSED WITH NURSING STAFF. WILL SEE PRN. ALL SKIN PROTECTION MEASURES IN PLACE INCLUDING FIRST STEP MATTRESS. MD IN AGREEMENT WITH PLAN OF CARE.
[2017-03-11] MEDS: hydrALAZINE HCL 25 MG TABLET GT SCH ×2 (09:35→17:12)
[2017-03-11] MEDS: POLYVINYL ALCOHOL 15 ML BOTTLE EACHEYE SCH ×2 (09:35→20:43)
[2017-03-11] MEDS: METOPROLOL TARTRATE 50 MG TABLET GT SCH ×2 (09:35→21:22)
[2017-03-11] MEDS: LACTOBACILLUS RHAMNOSUS GG 1 EACH CAP.SPRINK GT SCH ×2 (09:35→17:12)
[2017-03-11] MEDS: HEPARIN SODIUM, PORCINE 5000 UNITS/1 ML VIAL SQ SCH ×2 (09:36→20:44)
[2017-03-11] MEDS: HYDROCODONE/APAP 5/325MG 1 EACH TABLET GT SCH ×2 (09:36→20:44)
[2017-03-11] MEDS: ASCORBIC ACID 500 MG TABLET GT SCH (09:36)
[2017-03-11] MEDS: VIT B CMPLX 3/FA/VIT C/BIOTIN 1 TAB TABLET PO SCH (09:36)
[2017-03-11 15:37] VITALS: BP 164/89
[2017-03-11 18:32] VITALS: BP 163/87
[2017-03-11 20:17] VITALS: BP 150/69
[2017-03-11] MEDS: INSULIN GLARGINE, 100 UNIT/ML CARTRIDGE SQ SCH (21:22)
[2017-03-12 00:37] VITALS: BP 144/78
[2017-03-12] MEDS: ALBUTEROL FS 2.5 MG/3 ML VIAL.NEB NEB SCH ×4 (02:24→19:41)
[2017-03-12] MEDS: IPRATROPIUM NEB FS 0.5 MG/2.5 ML AMPUL.NEB NEB SCH ×4 (02:24→19:41)
[2017-03-12] MEDS: PROSOURCE / PROSTAT (PYXIS) 30 ML UDC GT SCH ×4 (05:54→23:55)
[2017-03-12] MEDS: METOCLOPRAMIDE HCL 10 MG/10 ML UDC GT SCH ×4 (05:54→23:55)
[2017-03-12] MEDS: ESOMEPRAZOLE MAG TRIHYDRATE 20 MG CAPSULE.DR GT SCH (05:54)
[2017-03-12] MEDS: BLOOD SUGAR DIAGNOSTIC 1 EACH STRIP IN SCH ×4 (05:54→23:55)
[2017-03-12] MEDS: RENAL NOVASOURCE 1,000 ML BOTTLE GT PRN (05:55)
[2017-03-12] MEDS: INSULIN REGULAR, HUMAN 100 UNIT/ML 3 ML VIAL SQ PRN ×3 (05:56→23:56)
[2017-03-12 06:26] VITALS: BP 136/82
[2017-03-12 07:27] VITALS: BP 153/80
[2017-03-12] MEDS: ASCORBIC ACID 500 MG TABLET GT SCH (08:32)
[2017-03-12] MEDS: VIT B CMPLX 3/FA/VIT C/BIOTIN 1 TAB TABLET PO SCH (08:32)
[2017-03-12] MEDS: LACTOBACILLUS RHAMNOSUS GG 1 EACH CAP.SPRINK GT SCH ×2 (08:32→17:25)
[2017-03-12] MEDS: HEPARIN SODIUM, PORCINE 5000 UNITS/1 ML VIAL SQ SCH ×2 (08:32→21:16)
[2017-03-12] MEDS: HYDROGEN PEROXIDE 480 ML BOTTLE TP SCH ×2 (09:00→22:00)
[2017-03-12] MEDS: NYSTATIN TOP POWDER 15 GM BOTTLE TP SCH ×4 (09:00→22:00)
[2017-03-12] MEDS: POLYVINYL ALCOHOL 15 ML BOTTLE EACHEYE SCH ×2 (09:00→21:15)
[2017-03-12] MEDS: HYDROCODONE/APAP 5/325MG 1 EACH TABLET GT SCH ×2 (15:00→21:15)
[2017-03-12] MEDS: Z GUARD REMEDY 4 OZ OINT TP SCH ×6 (15:30→22:00)
[2017-03-12] MEDS: HYDROGEL DRESSING 90 GM TUBE TP SCH ×4 (15:30→22:00)
[2017-03-12] MEDS: CADEXOMER IODINE 40 GM TUBE TP SCH ×5 (15:30→22:00)
[2017-03-12] MEDS: DAKINS QUARTER STRENGTH (0.125%) 480 ML BOTTLE TOP SCH ×2 (15:30→22:00)
[2017-03-12 15:59] VITALS: BP 153/80
[2017-03-12] MEDS: hydrALAZINE HCL 25 MG TABLET GT SCH (17:25)
[2017-03-12 18:15] VITALS: BP 155/72
[2017-03-12 19:25] VITALS: BP 155/77
[2017-03-12] MEDS: METOPROLOL TARTRATE 50 MG TABLET GT SCH (21:16)
[2017-03-12] MEDS: INSULIN GLARGINE, 100 UNIT/ML CARTRIDGE SQ SCH (22:19)
[2017-03-13] VITALS (7 sets, daily range): BP systolic 125–177; BP diastolic 72–90
[2017-03-13] MEDS: IPRATROPIUM NEB FS 0.5 MG/2.5 ML AMPUL.NEB NEB SCH ×4 (01:09→20:23)
[2017-03-13] MEDS: ALBUTEROL FS 2.5 MG/3 ML VIAL.NEB NEB SCH ×4 (01:10→20:23)
[2017-03-13] MEDS: PROSOURCE / PROSTAT (PYXIS) 30 ML UDC GT SCH ×4 (06:06→23:46)
[2017-03-13] MEDS: ESOMEPRAZOLE MAG TRIHYDRATE 20 MG CAPSULE.DR GT SCH (06:06)
[2017-03-13] MEDS: METOCLOPRAMIDE HCL 10 MG/10 ML UDC GT SCH ×4 (06:06→23:46)
[2017-03-13] MEDS: BLOOD SUGAR DIAGNOSTIC 1 EACH STRIP IN SCH ×4 (06:06→23:46)
[2017-03-13] MEDS: INSULIN REGULAR, HUMAN 100 UNIT/ML 3 ML VIAL SQ PRN ×4 (06:07→23:47)
[2017-03-13] MEDS: CLONIDINE HCL 0.2 MG TABLET GT PRN (06:25)
[2017-03-13] MEDS: RENAL NOVASOURCE 1,000 ML BOTTLE GT PRN (06:44)
[2017-03-13] MEDS: hydrALAZINE HCL 25 MG TABLET GT SCH ×2 (08:31→17:34)
[2017-03-13] MEDS: POLYVINYL ALCOHOL 15 ML BOTTLE EACHEYE SCH ×2 (08:31→21:11)
[2017-03-13] MEDS: LACTOBACILLUS RHAMNOSUS GG 1 EACH CAP.SPRINK GT SCH ×2 (08:31→17:34)
[2017-03-13] MEDS: ASCORBIC ACID 500 MG TABLET GT SCH (08:31)
[2017-03-13] MEDS: VIT B CMPLX 3/FA/VIT C/BIOTIN 1 TAB TABLET PO SCH (08:31)
[2017-03-13] MEDS: METOPROLOL TARTRATE 50 MG TABLET GT SCH ×2 (08:31→21:33)
[2017-03-13] MEDS: HEPARIN SODIUM, PORCINE 5000 UNITS/1 ML VIAL SQ SCH ×2 (08:36→21:12)
[2017-03-13] MEDS: HYDROCODONE/APAP 5/325MG 1 EACH TABLET GT SCH ×2 (09:51→21:12)
[2017-03-13] MEDS: NYSTATIN TOP POWDER 15 GM BOTTLE TP SCH ×4 (10:55→22:00)
[2017-03-13] MEDS: Z GUARD REMEDY 4 OZ OINT TP SCH ×6 (10:55→22:00)
[2017-03-13] MEDS: DAKINS QUARTER STRENGTH (0.125%) 480 ML BOTTLE TOP SCH ×2 (10:55→22:00)
[2017-03-13] MEDS: HYDROGEL DRESSING 90 GM TUBE TP SCH ×4 (10:55→22:00)
[2017-03-13] MEDS: HYDROGEN PEROXIDE 480 ML BOTTLE TP SCH ×2 (10:55→22:00)
[2017-03-13] MEDS: CADEXOMER IODINE 40 GM TUBE TP SCH ×5 (10:55→22:00)
[2017-03-13] MEDS: INSULIN GLARGINE, 100 UNIT/ML CARTRIDGE SQ SCH (21:33)
[2017-03-14 00:30] VITALS: BP 159/77
[2017-03-14] MEDS: ALBUTEROL FS 2.5 MG/3 ML VIAL.NEB NEB SCH ×4 (01:21→19:53)
[2017-03-14] MEDS: IPRATROPIUM NEB FS 0.5 MG/2.5 ML AMPUL.NEB NEB SCH ×4 (01:21→19:53)
[2017-03-14] MEDS: PROSOURCE / PROSTAT (PYXIS) 30 ML UDC GT SCH ×4 (05:32→23:53)
[2017-03-14] MEDS: METOCLOPRAMIDE HCL 10 MG/10 ML UDC GT SCH ×4 (05:32→23:53)
[2017-03-14] MEDS: ESOMEPRAZOLE MAG TRIHYDRATE 20 MG CAPSULE.DR GT SCH (05:32)
[2017-03-14] MEDS: BLOOD SUGAR DIAGNOSTIC 1 EACH STRIP IN SCH ×4 (05:32→23:53)
[2017-03-14] MEDS: INSULIN REGULAR, HUMAN 100 UNIT/ML 3 ML VIAL SQ PRN ×3 (05:33→23:54)
[2017-03-14] MEDS: RENAL NOVASOURCE 1,000 ML BOTTLE GT PRN (05:33)
[2017-03-14 06:10] VITALS: BP 158/69
[2017-03-14 07:28] VITALS: BP 161/78
[2017-03-14] MEDS: POLYVINYL ALCOHOL 15 ML BOTTLE EACHEYE SCH ×2 (08:34→20:31)
[2017-03-14] MEDS: VIT B CMPLX 3/FA/VIT C/BIOTIN 1 TAB TABLET PO SCH (08:34)
[2017-03-14] MEDS: ASCORBIC ACID 500 MG TABLET GT SCH (08:34)
[2017-03-14] MEDS: LACTOBACILLUS RHAMNOSUS GG 1 EACH CAP.SPRINK GT SCH ×2 (08:34→17:00)
[2017-03-14] MEDS: HEPARIN SODIUM, PORCINE 5000 UNITS/1 ML VIAL SQ SCH ×2 (08:35→20:33)
--- NOTE | 2017-03-14 09:06 | NUR ---
Resident left for dialysis in stable condition, connected to ventilator transported via ambulance accompanied by an RT. R FA AV shunt + bruit. Called [facility] spoke with NED Garrett notifying him of the lab result collected on 03/12/17 with K 3.3, Phos 5.3 according to Gerry he will inform the CN to take a look at the result.
[2017-03-14 14:30] VITALS: BP 170/60
[2017-03-14] MEDS ORDERED: ACETAMINOPHEN 325 MG TABLET PO PRN (14:30)
--- NOTE | 2017-03-14 14:30 | NUR ---
Resident returned back from dialysis,condition stable, AV fistula with dressing intact, no bleeding from the site, No s/s of respiratory/cardio distress.
[2017-03-14] MEDS: HYDROCODONE/APAP 5/325MG 1 EACH TABLET GT SCH ×2 (14:45→21:00)
[2017-03-14] MEDS: NYSTATIN TOP POWDER 15 GM BOTTLE TP SCH ×4 (15:15→20:34)
[2017-03-14] MEDS: HYDROGEN PEROXIDE 480 ML BOTTLE TP SCH ×2 (15:15→20:33)
[2017-03-14] MEDS: Z GUARD REMEDY 4 OZ OINT TP SCH ×6 (15:15→20:34)
[2017-03-14] MEDS: HYDROGEL DRESSING 90 GM TUBE TP SCH ×4 (15:15→20:33)
[2017-03-14] MEDS: DAKINS QUARTER STRENGTH (0.125%) 480 ML BOTTLE TOP SCH ×2 (15:15→20:33)
[2017-03-14] MEDS: CADEXOMER IODINE 40 GM TUBE TP SCH ×5 (15:15→20:33)
[2017-03-14] MEDS: hydrALAZINE HCL 25 MG TABLET GT SCH (17:00)
[2017-03-14 18:35] VITALS: BP 120/63
[2017-03-14 19:38] VITALS: BP 102/71
[2017-03-14] MEDS: METOPROLOL TARTRATE 50 MG TABLET GT SCH (22:00)
[2017-03-14] MEDS: INSULIN GLARGINE, 100 UNIT/ML CARTRIDGE SQ SCH (22:35)
[2017-03-15] VITALS: BP 123/79
[2017-03-15] MEDS: ALBUTEROL FS 2.5 MG/3 ML VIAL.NEB NEB SCH ×4 (01:19→20:23)
[2017-03-15] MEDS: IPRATROPIUM NEB FS 0.5 MG/2.5 ML AMPUL.NEB NEB SCH ×4 (01:19→20:23)
[2017-03-15] MEDS: RENAL NOVASOURCE 1,000 ML BOTTLE GT PRN (05:01)
[2017-03-15] MEDS: ESOMEPRAZOLE MAG TRIHYDRATE 20 MG CAPSULE.DR GT SCH (05:07)
[2017-03-15] MEDS: PROSOURCE / PROSTAT (PYXIS) 30 ML UDC GT SCH ×4 (05:07→23:49)
[2017-03-15] MEDS: METOCLOPRAMIDE HCL 10 MG/10 ML UDC GT SCH ×4 (05:07→23:49)
[2017-03-15] MEDS: CLONIDINE HCL 0.2 MG TABLET GT PRN (05:22)
[2017-03-15] MEDS: BLOOD SUGAR DIAGNOSTIC 1 EACH STRIP IN SCH ×4 (05:22→23:49)
[2017-03-15] MEDS: INSULIN REGULAR, HUMAN 100 UNIT/ML 3 ML VIAL SQ PRN ×4 (05:23→23:50)
[2017-03-15 06:00] VITALS: BP 140/77
[2017-03-15 07:21] VITALS: BP 164/78
[2017-03-15] MEDS: POLYVINYL ALCOHOL 15 ML BOTTLE EACHEYE SCH ×2 (08:45→21:01)
[2017-03-15] MEDS: hydrALAZINE HCL 25 MG TABLET GT SCH ×2 (08:46→16:52)
[2017-03-15] MEDS: METOPROLOL TARTRATE 50 MG TABLET GT SCH ×2 (08:46→21:03)
[2017-03-15] MEDS: LACTOBACILLUS RHAMNOSUS GG 1 EACH CAP.SPRINK GT SCH ×2 (08:46→16:52)
[2017-03-15] MEDS: HYDROCODONE/APAP 5/325MG 1 EACH TABLET GT SCH ×2 (08:48→21:01)
[2017-03-15] MEDS: VIT B CMPLX 3/FA/VIT C/BIOTIN 1 TAB TABLET PO SCH (08:49)
[2017-03-15] MEDS: ASCORBIC ACID 500 MG TABLET GT SCH (08:49)
[2017-03-15] MEDS: HEPARIN SODIUM, PORCINE 5000 UNITS/1 ML VIAL SQ SCH ×2 (08:50→21:02)
[2017-03-15] MEDS: CADEXOMER IODINE 40 GM TUBE TP SCH ×4 (09:50→21:03)
[2017-03-15] MEDS: HYDROGEN PEROXIDE 480 ML BOTTLE TP SCH ×2 (09:50→21:02)
[2017-03-15] MEDS: Z GUARD REMEDY 4 OZ OINT TP SCH ×6 (09:50→21:03)
[2017-03-15] MEDS: HYDROGEL DRESSING 90 GM TUBE TP SCH ×4 (09:50→21:02)
[2017-03-15] MEDS: NYSTATIN TOP POWDER 15 GM BOTTLE TP SCH ×4 (09:50→21:03)
[2017-03-15] MEDS: DAKINS QUARTER STRENGTH (0.125%) 480 ML BOTTLE TOP SCH ×2 (09:50→21:02)
[2017-03-15 12:00] VITALS: BP 133/79
[2017-03-15 18:06] VITALS: BP 136/74
[2017-03-15 19:51] VITALS: BP 95/55
[2017-03-15] MEDS: INSULIN GLARGINE, 100 UNIT/ML CARTRIDGE SQ SCH (21:04)
[2017-03-16] VITALS (7 sets, daily range): BP systolic 90–182; BP diastolic 50–78
[2017-03-16] MEDS: IPRATROPIUM NEB FS 0.5 MG/2.5 ML AMPUL.NEB NEB SCH ×4 (01:33→19:30)
[2017-03-16] MEDS: ALBUTEROL FS 2.5 MG/3 ML VIAL.NEB NEB SCH ×4 (01:33→19:30)
[2017-03-16] MEDS: PROSOURCE / PROSTAT (PYXIS) 30 ML UDC GT SCH ×3 (05:49→18:09)
[2017-03-16] MEDS: BLOOD SUGAR DIAGNOSTIC 1 EACH STRIP IN SCH ×3 (05:49→18:01)
[2017-03-16] MEDS: ESOMEPRAZOLE MAG TRIHYDRATE 20 MG CAPSULE.DR GT SCH (05:49)
[2017-03-16] MEDS: METOCLOPRAMIDE HCL 10 MG/10 ML UDC GT SCH ×3 (05:49→18:09)
[2017-03-16] MEDS: INSULIN REGULAR, HUMAN 100 UNIT/ML 3 ML VIAL SQ PRN ×3 (05:50→18:06)
[2017-03-16] MEDS: RENAL NOVASOURCE 1,000 ML BOTTLE GT PRN (07:38)
[2017-03-16] MEDS: POLYVINYL ALCOHOL 15 ML BOTTLE EACHEYE SCH ×2 (08:16→20:36)
[2017-03-16] MEDS: LACTOBACILLUS RHAMNOSUS GG 1 EACH CAP.SPRINK GT SCH ×2 (08:16→18:01)
[2017-03-16] MEDS: hydrALAZINE HCL 25 MG TABLET GT SCH ×2 (08:16→17:00)
[2017-03-16] MEDS: METOPROLOL TARTRATE 50 MG TABLET GT SCH ×2 (08:17→22:10)
[2017-03-16] MEDS: VIT B CMPLX 3/FA/VIT C/BIOTIN 1 TAB TABLET PO SCH (08:17)
[2017-03-16] MEDS: ASCORBIC ACID 500 MG TABLET GT SCH (08:17)
[2017-03-16] MEDS: HEPARIN SODIUM, PORCINE 5000 UNITS/1 ML VIAL SQ SCH ×2 (08:18→20:37)
--- NOTE | 2017-03-16 11:30 | NUR ---
Seen and examined by Dr. Terrie Olivo, reported that resident's B/P elevated that PRN Clonidine is given and at times it is low. According to MD she will review her medications.
[2017-03-16] MEDS: CLONIDINE HCL 0.2 MG TABLET GT PRN ×2 (11:50→18:06)
[2017-03-16] MEDS: HYDROCODONE/APAP 5/325MG 1 EACH TABLET GT SCH ×2 (14:15→20:37)
[2017-03-16] MEDS: CADEXOMER IODINE 40 GM TUBE TP SCH ×2 (15:15→20:38)
[2017-03-16] MEDS: HYDROGEL DRESSING 90 GM TUBE TP SCH ×4 (15:15→20:38)
[2017-03-16] MEDS: HYDROGEN PEROXIDE 480 ML BOTTLE TP SCH ×2 (15:15→20:38)
[2017-03-16] MEDS: DAKINS QUARTER STRENGTH (0.125%) 480 ML BOTTLE TOP SCH ×2 (15:15→20:37)
[2017-03-16] MEDS: Z GUARD REMEDY 4 OZ OINT TP SCH ×6 (15:15→20:39)
[2017-03-16] MEDS: NYSTATIN TOP POWDER 15 GM BOTTLE TP SCH ×4 (15:15→20:38)
[2017-03-16] MEDS: INSULIN GLARGINE, 100 UNIT/ML CARTRIDGE SQ SCH (22:11)
[2017-03-17] VITALS: BP 181/79
[2017-03-17] MEDS: PROSOURCE / PROSTAT (PYXIS) 30 ML UDC GT SCH ×5 (00:11→23:50)
[2017-03-17] MEDS: METOCLOPRAMIDE HCL 10 MG/10 ML UDC GT SCH ×5 (00:11→23:50)
[2017-03-17] MEDS: BLOOD SUGAR DIAGNOSTIC 1 EACH STRIP IN SCH ×5 (00:12→23:51)
[2017-03-17] MEDS: INSULIN REGULAR, HUMAN 100 UNIT/ML 3 ML VIAL SQ PRN ×4 (00:14→23:51)
[2017-03-17] MEDS: CLONIDINE HCL 0.2 MG TABLET GT PRN (00:32)
[2017-03-17] MEDS: IPRATROPIUM NEB FS 0.5 MG/2.5 ML AMPUL.NEB NEB SCH ×4 (01:35→19:37)
[2017-03-17] MEDS: ALBUTEROL FS 2.5 MG/3 ML VIAL.NEB NEB SCH ×4 (01:35→19:37)
[2017-03-17 06:00] VITALS: BP 163/73
--- NOTE | 2017-03-17 06:00 | NUR ---
RN NOTES Noted with blister like raised area (2 sites) to right lateral plantar area. No drainage noted. Will endorse to following shift to have MD notified to come assess foot.
[2017-03-17] MEDS: ESOMEPRAZOLE MAG TRIHYDRATE 20 MG CAPSULE.DR GT SCH (06:03)
[2017-03-17] MEDS: VIT B CMPLX 3/FA/VIT C/BIOTIN 1 TAB TABLET PO SCH (08:20)
[2017-03-17] MEDS: POLYVINYL ALCOHOL 15 ML BOTTLE EACHEYE SCH ×2 (08:20→21:05)
[2017-03-17] MEDS: HEPARIN SODIUM, PORCINE 5000 UNITS/1 ML VIAL SQ SCH ×2 (08:20→21:06)
[2017-03-17] MEDS: HYDROCODONE/APAP 5/325MG 1 EACH TABLET GT SCH ×2 (08:20→21:05)
[2017-03-17] MEDS: ASCORBIC ACID 500 MG TABLET GT SCH (08:20)
[2017-03-17] MEDS: LACTOBACILLUS RHAMNOSUS GG 1 EACH CAP.SPRINK GT SCH ×2 (08:20→16:42)
[2017-03-17] MEDS: HYDROGEL DRESSING 90 GM TUBE TP SCH ×4 (08:21→21:07)
[2017-03-17] MEDS: HYDROGEN PEROXIDE 480 ML BOTTLE TP SCH ×2 (08:21→21:07)
[2017-03-17] MEDS: NYSTATIN TOP POWDER 15 GM BOTTLE TP SCH ×2 (08:21→08:22)
[2017-03-17] MEDS: DAKINS QUARTER STRENGTH (0.125%) 480 ML BOTTLE TOP SCH ×2 (08:21→21:06)
[2017-03-17] MEDS: CADEXOMER IODINE 40 GM TUBE TP SCH ×2 (08:21→21:07)
[2017-03-17] MEDS: Z GUARD REMEDY 4 OZ OINT TP SCH ×6 (08:22→21:07)
--- NOTE | 2017-03-17 10:00 | NUR ---
Requested Dr. Rojas to see pt's right foot. Pt has some redness and swelling on the plantar area.
--- NOTE | 2017-03-17 12:53 | NUR ---
Notified Dr. Olivo that pt has some redness and swelling on the plantar area of right foot that look like blisters/abscess (2 sites), cause analyst has been notified. Pt at dialysis center at this time. No new order.
[2017-03-17] MEDS: hydrALAZINE HCL 25 MG TABLET GT SCH (16:42)
[2017-03-17 18:08] VITALS: BP 159/76
[2017-03-17 19:45] VITALS: BP 151/78
[2017-03-17] MEDS: METOPROLOL TARTRATE 50 MG TABLET GT SCH (21:08)
[2017-03-17] MEDS: INSULIN GLARGINE, 100 UNIT/ML CARTRIDGE SQ SCH (21:09)
[2017-03-18] VITALS (7 sets, daily range): BP systolic 138–169; BP diastolic 70–96
[2017-03-18] MEDS: ALBUTEROL FS 2.5 MG/3 ML VIAL.NEB NEB SCH ×4 (01:42→19:30)
[2017-03-18] MEDS: IPRATROPIUM NEB FS 0.5 MG/2.5 ML AMPUL.NEB NEB SCH ×4 (01:42→19:30)
[2017-03-18] MEDS: ESOMEPRAZOLE MAG TRIHYDRATE 20 MG CAPSULE.DR GT SCH (05:51)
[2017-03-18] MEDS: PROSOURCE / PROSTAT (PYXIS) 30 ML UDC GT SCH ×3 (05:51→18:24)
[2017-03-18] MEDS: METOCLOPRAMIDE HCL 10 MG/10 ML UDC GT SCH ×3 (05:51→18:24)
[2017-03-18] MEDS: BLOOD SUGAR DIAGNOSTIC 1 EACH STRIP IN SCH ×3 (05:52→18:24)
[2017-03-18] MEDS: INSULIN REGULAR, HUMAN 100 UNIT/ML 3 ML VIAL SQ PRN ×3 (05:53→18:25)
[2017-03-18] MEDS: POLYVINYL ALCOHOL 15 ML BOTTLE EACHEYE SCH ×2 (08:49→20:44)
[2017-03-18] MEDS: ASCORBIC ACID 500 MG TABLET GT SCH (08:50)
[2017-03-18] MEDS: VIT B CMPLX 3/FA/VIT C/BIOTIN 1 TAB TABLET PO SCH (08:50)
[2017-03-18] MEDS: LACTOBACILLUS RHAMNOSUS GG 1 EACH CAP.SPRINK GT SCH ×2 (08:50→17:00)
[2017-03-18] MEDS: HEPARIN SODIUM, PORCINE 5000 UNITS/1 ML VIAL SQ SCH ×2 (08:51→20:44)
[2017-03-18] MEDS: METOPROLOL TARTRATE 50 MG TABLET GT SCH ×2 (09:06→21:16)
[2017-03-18] MEDS: hydrALAZINE HCL 25 MG TABLET GT SCH ×2 (09:06→17:00)
[2017-03-18] MEDS: CLONIDINE HCL 0.2 MG TABLET GT PRN ×2 (11:57→18:24)
[2017-03-18] MEDS: HYDROCODONE/APAP 5/325MG 1 EACH TABLET GT SCH ×2 (13:15→20:44)
[2017-03-18] MEDS: HYDROGEL DRESSING 90 GM TUBE TP SCH ×4 (14:15→20:45)
[2017-03-18] MEDS: HYDROGEN PEROXIDE 480 ML BOTTLE TP SCH ×2 (14:15→20:45)
[2017-03-18] MEDS: CADEXOMER IODINE 40 GM TUBE TP SCH ×2 (14:15→20:45)
[2017-03-18] MEDS: DAKINS QUARTER STRENGTH (0.125%) 480 ML BOTTLE TOP SCH ×2 (14:15→20:45)
[2017-03-18] MEDS: Z GUARD REMEDY 4 OZ OINT TP SCH ×6 (14:15→20:45)
--- NOTE | 2017-03-18 17:08 | NUR ---
Patient was seen by Help Desk Representative. Per risk management intern, patient's blood sugar was constantly being high and MD has already been adjusted the dose of insulin , still blood sugar remained high. Help Desk Representative recommended to change the formula feeding to Glytrol at 60 cc/hr x18 hrs instead of Novasource. She also mentioned that Glytrol contains twice amount of free water than novasource and the patient is on dialysis. Paged DR. Terrie echavarria. Awaiting for call back. Will endorse to the next shift RN.
[2017-03-18] MEDS: INSULIN GLARGINE, 100 UNIT/ML CARTRIDGE SQ SCH (21:16)
[2017-03-19 00:41] VITALS: BP 130/82
[2017-03-19] MEDS: PROSOURCE / PROSTAT (PYXIS) 30 ML UDC GT SCH ×4 (00:44→17:55)
[2017-03-19] MEDS: METOCLOPRAMIDE HCL 10 MG/10 ML UDC GT SCH ×4 (00:44→17:55)
[2017-03-19] MEDS: BLOOD SUGAR DIAGNOSTIC 1 EACH STRIP IN SCH ×4 (00:44→17:55)
[2017-03-19] MEDS: INSULIN REGULAR, HUMAN 100 UNIT/ML 3 ML VIAL SQ PRN ×3 (00:45→18:05)
[2017-03-19] MEDS: ALBUTEROL FS 2.5 MG/3 ML VIAL.NEB NEB SCH ×4 (02:20→19:04)
[2017-03-19] MEDS: IPRATROPIUM NEB FS 0.5 MG/2.5 ML AMPUL.NEB NEB SCH ×4 (02:20→19:04)
[2017-03-19] MEDS: ESOMEPRAZOLE MAG TRIHYDRATE 20 MG CAPSULE.DR GT SCH (05:43)
[2017-03-19] MEDS: RENAL NOVASOURCE 1,000 ML BOTTLE GT PRN (05:54)
[2017-03-19 06:15] VITALS: BP 144/80
[2017-03-19] MEDS: LACTOBACILLUS RHAMNOSUS GG 1 EACH CAP.SPRINK GT SCH ×2 (08:20→17:55)
[2017-03-19] MEDS: POLYVINYL ALCOHOL 15 ML BOTTLE EACHEYE SCH ×2 (08:20→20:53)
[2017-03-19] MEDS: VIT B CMPLX 3/FA/VIT C/BIOTIN 1 TAB TABLET PO SCH (08:20)
[2017-03-19] MEDS: ASCORBIC ACID 500 MG TABLET GT SCH (08:20)
[2017-03-19] MEDS: HEPARIN SODIUM, PORCINE 5000 UNITS/1 ML VIAL SQ SCH ×2 (08:28→20:54)
--- NOTE | 2017-03-19 11:35 | NUR ---
Senior Adults Director recommending to change GT feeding from Novasource renal to Glytrol at 60 mL/hr x 18 hours a day due to pt's increased blood sugar levels. Changing feeding to Glytrol will increase fluid intake. Referred to Dr. Olivo. She declined to change the feeding. Received order to add Lantus insulin 10 units SC q AM.
[2017-03-19] MEDS: HYDROCODONE/APAP 5/325MG 1 EACH TABLET GT SCH ×2 (14:10→21:42)
--- NOTE | 2017-03-19 15:00 | NUR ---
Asked Dr. Celestine Bettencourt to look at the 2 sites of redness/swelling on pt's right foot that look like blisters/abscesses. Dr. Celestine Bettencourt examined them and said they are not sites of abscess. No new order. He said to notify him or Dr. Rojas if they get worse.
[2017-03-19] MEDS: HYDROGEN PEROXIDE 480 ML BOTTLE TP SCH ×2 (15:10→20:54)
[2017-03-19] MEDS: HYDROGEL DRESSING 90 GM TUBE TP SCH ×4 (15:10→20:54)
[2017-03-19] MEDS: Z GUARD REMEDY 4 OZ OINT TP SCH ×6 (15:10→20:55)
[2017-03-19] MEDS: CADEXOMER IODINE 40 GM TUBE TP SCH ×2 (15:10→20:54)
[2017-03-19] MEDS: DAKINS QUARTER STRENGTH (0.125%) 480 ML BOTTLE TOP SCH ×2 (15:10→20:54)
[2017-03-19] MEDS: hydrALAZINE HCL 25 MG TABLET GT SCH (17:55)
[2017-03-19 19:04] VITALS: BP 149/80
[2017-03-19] MEDS: INSULIN GLARGINE, 100 UNIT/ML CARTRIDGE SQ SCH (21:43)
[2017-03-19] MEDS: METOPROLOL TARTRATE 50 MG TABLET GT SCH (21:43)
[2017-03-20] VITALS: BP 156/77
[2017-03-20] MEDS: PROSOURCE / PROSTAT (PYXIS) 30 ML UDC GT SCH ×5 (00:53→23:20)
[2017-03-20] MEDS: BLOOD SUGAR DIAGNOSTIC 1 EACH STRIP IN SCH ×5 (00:53→23:20)
[2017-03-20] MEDS: METOCLOPRAMIDE HCL 10 MG/10 ML UDC GT SCH ×5 (00:53→23:20)
[2017-03-20] MEDS: INSULIN REGULAR, HUMAN 100 UNIT/ML 3 ML VIAL SQ PRN ×5 (00:54→23:21)
[2017-03-20] MEDS: CLONIDINE HCL 0.2 MG TABLET GT PRN (01:09)
[2017-03-20] MEDS: IPRATROPIUM NEB FS 0.5 MG/2.5 ML AMPUL.NEB NEB SCH ×4 (01:49→19:30)
[2017-03-20] MEDS: ALBUTEROL FS 2.5 MG/3 ML VIAL.NEB NEB SCH ×4 (01:49→19:30)
[2017-03-20 06:00] VITALS: BP 148/68
[2017-03-20] MEDS: ESOMEPRAZOLE MAG TRIHYDRATE 20 MG CAPSULE.DR GT SCH (06:34)
[2017-03-20] MEDS: RENAL NOVASOURCE 1,000 ML BOTTLE GT PRN (06:36)
[2017-03-20 07:28] VITALS: BP 148/84
[2017-03-20] MEDS: INSULIN GLARGINE, 100 UNIT/ML CARTRIDGE SQ SCH ×2 (09:00→21:07)
[2017-03-20] MEDS: HEPARIN SODIUM, PORCINE 5000 UNITS/1 ML VIAL SQ SCH ×2 (09:00→21:05)
[2017-03-20] MEDS: ASCORBIC ACID 500 MG TABLET GT SCH (09:00)
[2017-03-20] MEDS: VIT B CMPLX 3/FA/VIT C/BIOTIN 1 TAB TABLET PO SCH (09:00)
[2017-03-20] MEDS: HYDROCODONE/APAP 5/325MG 1 EACH TABLET GT SCH ×2 (09:00→21:05)
[2017-03-20] MEDS: POLYVINYL ALCOHOL 15 ML BOTTLE EACHEYE SCH ×2 (09:57→21:04)
[2017-03-20] MEDS: hydrALAZINE HCL 25 MG TABLET GT SCH ×2 (09:57→17:21)
[2017-03-20] MEDS: LACTOBACILLUS RHAMNOSUS GG 1 EACH CAP.SPRINK GT SCH ×2 (09:58→17:00)
[2017-03-20] MEDS: METOPROLOL TARTRATE 50 MG TABLET GT SCH ×2 (09:58→21:07)
[2017-03-20] MEDS: Z GUARD REMEDY 4 OZ OINT TP SCH ×6 (10:00→21:06)
[2017-03-20] MEDS: HYDROGEL DRESSING 90 GM TUBE TP SCH ×4 (10:00→21:06)
[2017-03-20] MEDS: HYDROGEN PEROXIDE 480 ML BOTTLE TP SCH ×2 (10:00→21:06)
[2017-03-20] MEDS: CADEXOMER IODINE 40 GM TUBE TP SCH ×2 (10:00→21:06)
[2017-03-20] MEDS: DAKINS QUARTER STRENGTH (0.125%) 480 ML BOTTLE TOP SCH ×2 (10:00→21:06)
[2017-03-20 12:00] VITALS: BP 139/85
--- NOTE | 2017-03-20 12:30 | NUR ---
INTERDISCIPLINARY TEAM CONFERENCE (IDT) was held today. No family member attended the conference. Dr. Morejon and the interdisciplinary team reviewed the current plan of care in detail. New orders were reviewed. Resident will continue on the same medications . No new orders were given.
--- NOTE | 2017-03-20 13:50 | NUR ---
IDT: Pharmacy wants to know the stop date for Aranesp and charge nurse will follow up for stop-date.
[2017-03-20 18:00] VITALS: BP 148/94
[2017-03-20 20:08] VITALS: BP 147/88
[2017-03-21 00:08] VITALS: BP 132/63
[2017-03-21] MEDS: IPRATROPIUM NEB FS 0.5 MG/2.5 ML AMPUL.NEB NEB SCH ×4 (01:31→19:48)
[2017-03-21] MEDS: ALBUTEROL FS 2.5 MG/3 ML VIAL.NEB NEB SCH ×4 (01:31→19:49)
[2017-03-21] MEDS: PROSOURCE / PROSTAT (PYXIS) 30 ML UDC GT SCH ×4 (05:35→23:36)
[2017-03-21] MEDS: BLOOD SUGAR DIAGNOSTIC 1 EACH STRIP IN SCH ×4 (05:35→23:36)
[2017-03-21] MEDS: METOCLOPRAMIDE HCL 10 MG/10 ML UDC GT SCH ×4 (05:35→23:36)
[2017-03-21] MEDS: ESOMEPRAZOLE MAG TRIHYDRATE 20 MG CAPSULE.DR GT SCH (05:35)
[2017-03-21] MEDS: RENAL NOVASOURCE 1,000 ML BOTTLE GT PRN (05:36)
[2017-03-21] MEDS: INSULIN REGULAR, HUMAN 100 UNIT/ML 3 ML VIAL SQ PRN ×3 (05:36→23:47)
[2017-03-21 06:10] VITALS: BP 158/82
[2017-03-21 08:01] VITALS: BP 123/79
[2017-03-21] MEDS: VIT B CMPLX 3/FA/VIT C/BIOTIN 1 TAB TABLET PO SCH (08:28)
[2017-03-21] MEDS: LACTOBACILLUS RHAMNOSUS GG 1 EACH CAP.SPRINK GT SCH ×2 (08:28→17:34)
[2017-03-21] MEDS: POLYVINYL ALCOHOL 15 ML BOTTLE EACHEYE SCH ×2 (08:28→21:15)
[2017-03-21] MEDS: ASCORBIC ACID 500 MG TABLET GT SCH (08:28)
[2017-03-21] MEDS: HEPARIN SODIUM, PORCINE 5000 UNITS/1 ML VIAL SQ SCH ×2 (08:30→21:16)
[2017-03-21] MEDS: INSULIN GLARGINE, 100 UNIT/ML CARTRIDGE SQ SCH ×2 (08:31→21:17)
[2017-03-21] MEDS: HYDROCODONE/APAP 5/325MG 1 EACH TABLET GT SCH ×2 (14:15→21:18)
[2017-03-21] MEDS: NYSTATIN TOP POWDER 15 GM BOTTLE TP SCH ×4 (15:15→21:17)
[2017-03-21] MEDS: DAKINS QUARTER STRENGTH (0.125%) 480 ML BOTTLE TOP SCH ×2 (15:15→21:16)
[2017-03-21] MEDS: CADEXOMER IODINE 40 GM TUBE TP SCH ×2 (15:15→21:16)
[2017-03-21] MEDS: HYDROGEL DRESSING 90 GM TUBE TP SCH ×4 (15:15→21:16)
[2017-03-21] MEDS: HYDROGEN PEROXIDE 480 ML BOTTLE TP SCH ×2 (15:15→21:16)
[2017-03-21] MEDS: Z GUARD REMEDY 4 OZ OINT TP SCH ×6 (15:15→21:17)
[2017-03-21] MEDS: hydrALAZINE HCL 25 MG TABLET GT SCH (17:00)
[2017-03-21 18:00] VITALS: BP 115/61
[2017-03-21 20:07] VITALS: BP 128/74
[2017-03-21] MEDS: METOPROLOL TARTRATE 50 MG TABLET GT SCH (21:17)
[2017-03-22 00:37] VITALS: BP 110/62
[2017-03-22] MEDS: IPRATROPIUM NEB FS 0.5 MG/2.5 ML AMPUL.NEB NEB SCH ×4 (02:37→19:52)
[2017-03-22] MEDS: ALBUTEROL FS 2.5 MG/3 ML VIAL.NEB NEB SCH ×4 (02:37→19:52)
[2017-03-22] MEDS: INSULIN REGULAR, HUMAN 100 UNIT/ML 3 ML VIAL SQ PRN ×3 (05:47→18:24)
[2017-03-22] MEDS: PROSOURCE / PROSTAT (PYXIS) 30 ML UDC GT SCH ×3 (05:47→18:23)
[2017-03-22] MEDS: BLOOD SUGAR DIAGNOSTIC 1 EACH STRIP IN SCH ×3 (05:47→18:24)
[2017-03-22] MEDS: RENAL NOVASOURCE 1,000 ML BOTTLE GT PRN (05:47)
[2017-03-22] MEDS: METOCLOPRAMIDE HCL 10 MG/10 ML UDC GT SCH ×3 (05:47→18:23)
[2017-03-22] MEDS: ESOMEPRAZOLE MAG TRIHYDRATE 20 MG CAPSULE.DR GT SCH (05:47)
[2017-03-22 06:39] VITALS: BP 136/74
[2017-03-22 07:54] VITALS: BP 111/50
[2017-03-22] MEDS: LACTOBACILLUS RHAMNOSUS GG 1 EACH CAP.SPRINK GT SCH ×2 (09:00→17:00)
[2017-03-22] MEDS: NYSTATIN TOP POWDER 15 GM BOTTLE TP SCH ×4 (09:00→21:09)
[2017-03-22] MEDS: HYDROGEN PEROXIDE 480 ML BOTTLE TP SCH ×2 (09:00→21:09)
[2017-03-22] MEDS: Z GUARD REMEDY 4 OZ OINT TP SCH ×6 (09:00→21:10)
[2017-03-22] MEDS: HYDROCODONE/APAP 5/325MG 1 EACH TABLET GT SCH ×2 (09:00→21:06)
[2017-03-22] MEDS: VIT B CMPLX 3/FA/VIT C/BIOTIN 1 TAB TABLET PO SCH (09:00)
[2017-03-22] MEDS: ASCORBIC ACID 500 MG TABLET GT SCH (09:00)
[2017-03-22] MEDS: HYDROGEL DRESSING 90 GM TUBE TP SCH ×4 (09:00→21:09)
[2017-03-22] MEDS: INSULIN GLARGINE, 100 UNIT/ML CARTRIDGE SQ SCH ×2 (09:00→21:13)
[2017-03-22] MEDS: hydrALAZINE HCL 25 MG TABLET GT SCH ×2 (09:00→17:00)
[2017-03-22] MEDS: DAKINS QUARTER STRENGTH (0.125%) 480 ML BOTTLE TOP SCH ×2 (09:00→21:08)
[2017-03-22] MEDS: POLYVINYL ALCOHOL 15 ML BOTTLE EACHEYE SCH ×2 (09:00→21:14)
[2017-03-22] MEDS: HEPARIN SODIUM, PORCINE 5000 UNITS/1 ML VIAL SQ SCH ×2 (09:00→21:08)
[2017-03-22] MEDS: CADEXOMER IODINE 40 GM TUBE TP SCH (09:00)
[2017-03-22] MEDS: METOPROLOL TARTRATE 50 MG TABLET GT SCH ×2 (10:00→21:11)
[2017-03-22 12:05] VITALS: BP 128/80
[2017-03-22 19:12] VITALS: BP 160/80
[2017-03-22 19:55] VITALS: BP 148/79
[2017-03-23] MEDS: BLOOD SUGAR DIAGNOSTIC 1 EACH STRIP IN SCH ×4 (00:15→18:33)
[2017-03-23] MEDS: METOCLOPRAMIDE HCL 10 MG/10 ML UDC GT SCH ×4 (00:15→17:29)
[2017-03-23] MEDS: PROSOURCE / PROSTAT (PYXIS) 30 ML UDC GT SCH ×4 (00:15→17:29)
[2017-03-23] MEDS: INSULIN REGULAR, HUMAN 100 UNIT/ML 3 ML VIAL SQ PRN ×4 (00:17→18:34)
[2017-03-23 00:35] VITALS: BP 145/79
[2017-03-23] MEDS: ALBUTEROL FS 2.5 MG/3 ML VIAL.NEB NEB SCH ×4 (02:01→20:07)
[2017-03-23] MEDS: IPRATROPIUM NEB FS 0.5 MG/2.5 ML AMPUL.NEB NEB SCH ×4 (02:01→20:07)
[2017-03-23] MEDS: ESOMEPRAZOLE MAG TRIHYDRATE 20 MG CAPSULE.DR GT SCH (06:02)
[2017-03-23] MEDS: RENAL NOVASOURCE 1,000 ML BOTTLE GT PRN (06:12)
[2017-03-23 06:34] VITALS: BP 147/75
[2017-03-23 08:05] VITALS: BP 102/58
[2017-03-23] MEDS: HEPARIN SODIUM, PORCINE 5000 UNITS/1 ML VIAL SQ SCH ×2 (10:00→20:55)
[2017-03-23] MEDS: VIT B CMPLX 3/FA/VIT C/BIOTIN 1 TAB TABLET PO SCH (10:00)
[2017-03-23] MEDS: INSULIN GLARGINE, 100 UNIT/ML CARTRIDGE SQ SCH ×2 (10:00→21:37)
[2017-03-23] MEDS: POLYVINYL ALCOHOL 15 ML BOTTLE EACHEYE SCH ×2 (10:00→21:00)
[2017-03-23] MEDS: HYDROGEN PEROXIDE 480 ML BOTTLE TP SCH ×2 (10:00→20:55)
[2017-03-23] MEDS: DAKINS QUARTER STRENGTH (0.125%) 480 ML BOTTLE TOP SCH ×2 (10:00→20:55)
[2017-03-23] MEDS: HYDROCODONE/APAP 5/325MG 1 EACH TABLET GT SCH ×2 (10:00→20:53)
[2017-03-23] MEDS: ASCORBIC ACID 500 MG TABLET GT SCH (10:00)
[2017-03-23] MEDS: Z GUARD REMEDY 4 OZ OINT TP SCH ×6 (10:00→20:56)
[2017-03-23] MEDS: NYSTATIN TOP POWDER 15 GM BOTTLE TP SCH ×4 (10:00→20:55)
[2017-03-23] MEDS: HYDROGEL DRESSING 90 GM TUBE TP SCH ×3 (10:00→20:55)
[2017-03-23] MEDS: METOPROLOL TARTRATE 50 MG TABLET GT SCH ×2 (10:00→21:36)
[2017-03-23] MEDS: hydrALAZINE HCL 25 MG TABLET GT SCH ×2 (10:00→17:28)
[2017-03-23] MEDS: LACTOBACILLUS RHAMNOSUS GG 1 EACH CAP.SPRINK GT SCH ×2 (10:00→17:30)
[2017-03-23 14:47] VITALS: BP 116/73
[2017-03-23 18:59] VITALS: BP 152/85
[2017-03-23 19:57] VITALS: BP 146/96
[2017-03-24] MEDS: PROSOURCE / PROSTAT (PYXIS) 30 ML UDC GT SCH ×5 (00:20→23:08)
[2017-03-24] MEDS: INSULIN REGULAR, HUMAN 100 UNIT/ML 3 ML VIAL SQ PRN ×4 (00:20→23:09)
[2017-03-24] MEDS: METOCLOPRAMIDE HCL 10 MG/10 ML UDC GT SCH ×5 (00:20→23:08)
[2017-03-24] MEDS: BLOOD SUGAR DIAGNOSTIC 1 EACH STRIP IN SCH ×5 (00:20→23:08)
[2017-03-24 00:33] VITALS: BP 140/76
[2017-03-24] MEDS: ALBUTEROL FS 2.5 MG/3 ML VIAL.NEB NEB SCH ×4 (02:21→19:27)
[2017-03-24] MEDS: IPRATROPIUM NEB FS 0.5 MG/2.5 ML AMPUL.NEB NEB SCH ×4 (02:21→19:27)
[2017-03-24] MEDS: ESOMEPRAZOLE MAG TRIHYDRATE 20 MG CAPSULE.DR GT SCH (05:13)
[2017-03-24 06:10] VITALS: BP 141/75
[2017-03-24 07:47] VITALS: BP 108/56
[2017-03-24] MEDS: INSULIN GLARGINE, 100 UNIT/ML CARTRIDGE SQ SCH ×2 (08:30→21:05)
[2017-03-24] MEDS: HYDROCODONE/APAP 5/325MG 1 EACH TABLET GT SCH ×2 (08:31→20:55)
[2017-03-24] MEDS: ASCORBIC ACID 500 MG TABLET GT SCH (08:31)
[2017-03-24] MEDS: LACTOBACILLUS RHAMNOSUS GG 1 EACH CAP.SPRINK GT SCH ×2 (08:31→17:05)
[2017-03-24] MEDS: VIT B CMPLX 3/FA/VIT C/BIOTIN 1 TAB TABLET PO SCH (08:31)
[2017-03-24] MEDS: HEPARIN SODIUM, PORCINE 5000 UNITS/1 ML VIAL SQ SCH ×2 (08:31→20:56)
[2017-03-24] MEDS: POLYVINYL ALCOHOL 15 ML BOTTLE EACHEYE SCH ×2 (08:31→20:54)
[2017-03-24 14:52] VITALS: BP 152/77
[2017-03-24] MEDS: DAKINS QUARTER STRENGTH (0.125%) 480 ML BOTTLE TOP SCH ×2 (14:56→21:30)
[2017-03-24] MEDS: Z GUARD REMEDY 4 OZ OINT TP SCH ×6 (14:56→21:30)
[2017-03-24] MEDS: HYDROGEL DRESSING 90 GM TUBE TP SCH ×2 (14:56→21:30)
[2017-03-24] MEDS: NYSTATIN TOP POWDER 15 GM BOTTLE TP SCH ×4 (14:56→21:30)
[2017-03-24] MEDS: HYDROGEN PEROXIDE 480 ML BOTTLE TP SCH ×2 (14:56→21:30)
[2017-03-24] MEDS: hydrALAZINE HCL 25 MG TABLET GT SCH (17:04)
[2017-03-24 18:57] VITALS: BP 171/93
[2017-03-24 20:12] VITALS: BP 127/61
[2017-03-24] MEDS: METOPROLOL TARTRATE 50 MG TABLET GT SCH (21:04)
[2017-03-25] VITALS (7 sets, daily range): BP systolic 117–176; BP diastolic 60–112
[2017-03-25] MEDS: ALBUTEROL FS 2.5 MG/3 ML VIAL.NEB NEB SCH ×4 (01:57→19:41)
[2017-03-25] MEDS: IPRATROPIUM NEB FS 0.5 MG/2.5 ML AMPUL.NEB NEB SCH ×4 (01:57→19:41)
[2017-03-25] MEDS: METOCLOPRAMIDE HCL 10 MG/10 ML UDC GT SCH ×4 (05:51→23:06)
[2017-03-25] MEDS: ESOMEPRAZOLE MAG TRIHYDRATE 20 MG CAPSULE.DR GT SCH (05:51)
[2017-03-25] MEDS: PROSOURCE / PROSTAT (PYXIS) 30 ML UDC GT SCH ×4 (05:51→23:06)
[2017-03-25] MEDS: INSULIN REGULAR, HUMAN 100 UNIT/ML 3 ML VIAL SQ PRN ×4 (06:16→23:06)
[2017-03-25] MEDS: BLOOD SUGAR DIAGNOSTIC 1 EACH STRIP IN SCH ×4 (06:16→23:06)
[2017-03-25] MEDS: RENAL NOVASOURCE 1,000 ML BOTTLE GT PRN ×2 (06:17→06:52)
[2017-03-25] MEDS: POLYVINYL ALCOHOL 15 ML BOTTLE EACHEYE SCH ×2 (09:52→20:55)
[2017-03-25] MEDS: METOPROLOL TARTRATE 50 MG TABLET GT SCH ×2 (09:53→21:49)
[2017-03-25] MEDS: ASCORBIC ACID 500 MG TABLET GT SCH (09:53)
[2017-03-25] MEDS: hydrALAZINE HCL 25 MG TABLET GT SCH ×2 (09:53→17:00)
[2017-03-25] MEDS: VIT B CMPLX 3/FA/VIT C/BIOTIN 1 TAB TABLET PO SCH (09:53)
[2017-03-25] MEDS: LACTOBACILLUS RHAMNOSUS GG 1 EACH CAP.SPRINK GT SCH ×2 (09:53→17:00)
[2017-03-25] MEDS: HEPARIN SODIUM, PORCINE 5000 UNITS/1 ML VIAL SQ SCH ×2 (09:54→20:56)
[2017-03-25] MEDS: INSULIN GLARGINE, 100 UNIT/ML CARTRIDGE SQ SCH ×2 (09:54→21:50)
[2017-03-25] MEDS: HYDROCODONE/APAP 5/325MG 1 EACH TABLET GT SCH ×2 (13:00→20:56)
[2017-03-25] MEDS: CLONIDINE HCL 0.2 MG TABLET GT PRN ×2 (13:11→18:20)
[2017-03-25] MEDS: DAKINS QUARTER STRENGTH (0.125%) 480 ML BOTTLE TOP SCH ×2 (14:00→21:48)
[2017-03-25] MEDS: NYSTATIN TOP POWDER 15 GM BOTTLE TP SCH ×4 (15:00→21:49)
[2017-03-25] MEDS: Z GUARD REMEDY 4 OZ OINT TP SCH ×6 (15:00→21:49)
[2017-03-25] MEDS: HYDROGEN PEROXIDE 480 ML BOTTLE TP SCH ×2 (15:00→21:49)
[2017-03-25] MEDS: HYDROGEL DRESSING 90 GM TUBE TP SCH ×2 (15:00→21:48)
[2017-03-26 00:47] VITALS: BP 130/80
[2017-03-26] MEDS: IPRATROPIUM NEB FS 0.5 MG/2.5 ML AMPUL.NEB NEB SCH ×4 (02:24→19:17)
[2017-03-26] MEDS: ALBUTEROL FS 2.5 MG/3 ML VIAL.NEB NEB SCH ×3 (02:24→19:17)
[2017-03-26] MEDS: PROSOURCE / PROSTAT (PYXIS) 30 ML UDC GT SCH ×3 (05:54→18:31)
[2017-03-26] MEDS: ESOMEPRAZOLE MAG TRIHYDRATE 20 MG CAPSULE.DR GT SCH (05:54)
[2017-03-26] MEDS: METOCLOPRAMIDE HCL 10 MG/10 ML UDC GT SCH ×3 (05:54→18:35)
[2017-03-26] MEDS: BLOOD SUGAR DIAGNOSTIC 1 EACH STRIP IN SCH ×3 (05:55→18:35)
[2017-03-26] MEDS: INSULIN REGULAR, HUMAN 100 UNIT/ML 3 ML VIAL SQ PRN ×2 (05:55→18:49)
[2017-03-26 06:32] VITALS: BP 140/76
[2017-03-26] MEDS: RENAL NOVASOURCE 1,000 ML BOTTLE GT PRN (06:54)
[2017-03-26 07:36] VITALS: BP 162/74
[2017-03-26] MEDS: VIT B CMPLX 3/FA/VIT C/BIOTIN 1 TAB TABLET PO SCH (08:12)
[2017-03-26] MEDS: HYDROCODONE/APAP 5/325MG 1 EACH TABLET GT SCH ×2 (08:12→21:00)
[2017-03-26] MEDS: ASCORBIC ACID 500 MG TABLET GT SCH (08:12)
[2017-03-26] MEDS: LACTOBACILLUS RHAMNOSUS GG 1 EACH CAP.SPRINK GT SCH ×2 (08:13→18:35)
[2017-03-26] MEDS: POLYVINYL ALCOHOL 15 ML BOTTLE EACHEYE SCH ×2 (08:13→20:32)
[2017-03-26] MEDS: DAKINS QUARTER STRENGTH (0.125%) 480 ML BOTTLE TOP SCH ×2 (08:13→20:32)
[2017-03-26] MEDS: HYDROGEL DRESSING 90 GM TUBE TP SCH ×2 (08:13→20:32)
[2017-03-26] MEDS: HYDROGEN PEROXIDE 480 ML BOTTLE TP SCH ×2 (08:14→20:32)
[2017-03-26] MEDS: Z GUARD REMEDY 4 OZ OINT TP SCH ×6 (08:14→20:33)
[2017-03-26] MEDS: NYSTATIN TOP POWDER 15 GM BOTTLE TP SCH ×4 (08:14→20:33)
[2017-03-26] MEDS: HEPARIN SODIUM, PORCINE 5000 UNITS/1 ML VIAL SQ SCH ×2 (08:33→20:32)
[2017-03-26] MEDS: INSULIN GLARGINE, 100 UNIT/ML CARTRIDGE SQ SCH ×2 (08:34→22:19)
[2017-03-26 12:00] VITALS: BP 162/74
[2017-03-26 18:00] VITALS: BP 162/74
[2017-03-26] MEDS: hydrALAZINE HCL 25 MG TABLET GT SCH (18:35)
[2017-03-26 20:04] VITALS: BP 163/82
[2017-03-26] MEDS: CLONIDINE HCL 0.2 MG TABLET GT PRN (20:35)
[2017-03-26] MEDS: METOPROLOL TARTRATE 50 MG TABLET GT SCH (22:00)
[2017-03-27] VITALS: BP 159/62
[2017-03-27] MEDS: PROSOURCE / PROSTAT (PYXIS) 30 ML UDC GT SCH ×5 (00:08→23:14)
[2017-03-27] MEDS: METOCLOPRAMIDE HCL 10 MG/10 ML UDC GT SCH ×5 (00:08→23:14)
[2017-03-27] MEDS: BLOOD SUGAR DIAGNOSTIC 1 EACH STRIP IN SCH ×5 (00:08→23:14)
[2017-03-27] MEDS: INSULIN REGULAR, HUMAN 100 UNIT/ML 3 ML VIAL SQ PRN ×5 (00:09→23:15)
[2017-03-27] MEDS: ALBUTEROL FS 2.5 MG/3 ML VIAL.NEB NEB SCH ×4 (01:59→20:00)
[2017-03-27] MEDS: IPRATROPIUM NEB FS 0.5 MG/2.5 ML AMPUL.NEB NEB SCH ×4 (01:59→20:00)
[2017-03-27] MEDS: ESOMEPRAZOLE MAG TRIHYDRATE 20 MG CAPSULE.DR GT SCH (05:22)
[2017-03-27 06:00] VITALS: BP 150/74
[2017-03-27 07:32] VITALS: BP 158/83
[2017-03-27] MEDS: POLYVINYL ALCOHOL 15 ML BOTTLE EACHEYE SCH ×2 (09:33→21:48)
[2017-03-27] MEDS: hydrALAZINE HCL 25 MG TABLET GT SCH ×2 (09:33→17:30)
[2017-03-27] MEDS: ASCORBIC ACID 500 MG TABLET GT SCH (09:35)
[2017-03-27] MEDS: VIT B CMPLX 3/FA/VIT C/BIOTIN 1 TAB TABLET PO SCH (09:35)
[2017-03-27] MEDS: DAKINS QUARTER STRENGTH (0.125%) 480 ML BOTTLE TOP SCH ×2 (09:35→21:49)
[2017-03-27] MEDS: NYSTATIN TOP POWDER 15 GM BOTTLE TP SCH ×4 (09:36→21:49)
[2017-03-27] MEDS: HYDROGEL DRESSING 90 GM TUBE TP SCH ×2 (09:36→21:49)
[2017-03-27] MEDS: Z GUARD REMEDY 4 OZ OINT TP SCH ×6 (09:36→21:49)
[2017-03-27] MEDS: HYDROGEN PEROXIDE 480 ML BOTTLE TP SCH ×2 (09:36→21:49)
[2017-03-27] MEDS: LACTOBACILLUS RHAMNOSUS GG 1 EACH CAP.SPRINK GT SCH ×2 (09:39→17:30)
[2017-03-27] MEDS: METOPROLOL TARTRATE 50 MG TABLET GT SCH ×2 (09:40→21:51)
[2017-03-27] MEDS: HYDROCODONE/APAP 5/325MG 1 EACH TABLET GT SCH ×2 (09:40→21:48)
[2017-03-27] MEDS: INSULIN GLARGINE, 100 UNIT/ML CARTRIDGE SQ SCH ×2 (09:48→21:52)
[2017-03-27] MEDS: HEPARIN SODIUM, PORCINE 5000 UNITS/1 ML VIAL SQ SCH ×2 (09:49→21:49)
--- NOTE | 2017-03-27 13:30 | NUR ---
INTERDISCIPLINARY TEAM CONFERENCE (IDT) was held today.family member unable to attend the meeting ,informed about IDT conference. Dr. Morejon and the interdisciplinary team reviewed the current plan of care in detail. New orders were reviewed.no new orders were given.Blood sugars improving since last visit as per dietitian.
[2017-03-27 14:54] VITALS: BP 160/74
[2017-03-27] MEDS: CLONIDINE HCL 0.2 MG TABLET GT PRN (14:55)
[2017-03-27 18:00] VITALS: BP 159/79
[2017-03-27 19:41] VITALS: BP 153/82
[2017-03-27] MEDS: RENAL NOVASOURCE 1,000 ML BOTTLE GT PRN (21:53)
[2017-03-28 00:03] VITALS: BP 133/73
[2017-03-28] MEDS: IPRATROPIUM NEB FS 0.5 MG/2.5 ML AMPUL.NEB NEB SCH ×4 (01:56→19:21)
[2017-03-28] MEDS: ALBUTEROL FS 2.5 MG/3 ML VIAL.NEB NEB SCH ×4 (01:56→19:21)
[2017-03-28] MEDS: PROSOURCE / PROSTAT (PYXIS) 30 ML UDC GT SCH ×3 (05:35→17:25)
[2017-03-28] MEDS: ESOMEPRAZOLE MAG TRIHYDRATE 20 MG CAPSULE.DR GT SCH (05:35)
[2017-03-28] MEDS: METOCLOPRAMIDE HCL 10 MG/10 ML UDC GT SCH ×3 (05:35→17:25)
[2017-03-28] MEDS: BLOOD SUGAR DIAGNOSTIC 1 EACH STRIP IN SCH ×3 (05:41→17:25)
[2017-03-28] MEDS: INSULIN REGULAR, HUMAN 100 UNIT/ML 3 ML VIAL SQ PRN ×2 (05:43→17:39)
[2017-03-28 06:04] VITALS: BP 142/85
[2017-03-28 07:32] VITALS: BP 134/74
[2017-03-28] MEDS: VIT B CMPLX 3/FA/VIT C/BIOTIN 1 TAB TABLET PO SCH (08:44)
[2017-03-28] MEDS: ASCORBIC ACID 500 MG TABLET GT SCH (08:44)
[2017-03-28] MEDS: LACTOBACILLUS RHAMNOSUS GG 1 EACH CAP.SPRINK GT SCH ×2 (08:44→17:25)
[2017-03-28] MEDS: POLYVINYL ALCOHOL 15 ML BOTTLE EACHEYE SCH ×2 (08:44→21:27)
[2017-03-28] MEDS: HEPARIN SODIUM, PORCINE 5000 UNITS/1 ML VIAL SQ SCH ×2 (08:44→21:28)
[2017-03-28] MEDS: INSULIN GLARGINE, 100 UNIT/ML CARTRIDGE SQ SCH ×2 (08:45→21:32)
[2017-03-28] MEDS: HYDROCODONE/APAP 5/325MG 1 EACH TABLET GT SCH ×2 (14:29→21:28)
[2017-03-28] MEDS: HYDROGEN PEROXIDE 480 ML BOTTLE TP SCH ×2 (15:30→21:28)
[2017-03-28] MEDS: HYDROGEL DRESSING 90 GM TUBE TP SCH (15:30)
[2017-03-28] MEDS: DAKINS QUARTER STRENGTH (0.125%) 480 ML BOTTLE TOP SCH (15:30)
[2017-03-28] MEDS: Z GUARD REMEDY 4 OZ OINT TP SCH ×5 (15:30→21:29)
[2017-03-28] MEDS: NYSTATIN TOP POWDER 15 GM BOTTLE TP SCH ×4 (15:30→21:28)
[2017-03-28] MEDS: hydrALAZINE HCL 25 MG TABLET GT SCH (17:00)
[2017-03-28] MEDS: CLONIDINE HCL 0.2 MG TABLET GT PRN (17:34)
[2017-03-28 17:41] VITALS: BP 106/75
[2017-03-28 18:00] VITALS: BP 106/75
[2017-03-28 19:34] VITALS: BP 125/59
[2017-03-28] MEDS: METOPROLOL TARTRATE 50 MG TABLET GT SCH (21:40)
[2017-03-28] MEDS: RENAL NOVASOURCE 1,000 ML BOTTLE GT PRN (22:25)
[2017-03-29] VITALS (7 sets, daily range): BP systolic 101–154; BP diastolic 56–75
[2017-03-29] MEDS: METOCLOPRAMIDE HCL 10 MG/10 ML UDC GT SCH ×4 (00:18→17:21)
[2017-03-29] MEDS: BLOOD SUGAR DIAGNOSTIC 1 EACH STRIP IN SCH ×4 (00:18→17:21)
[2017-03-29] MEDS: PROSOURCE / PROSTAT (PYXIS) 30 ML UDC GT SCH ×4 (00:18→17:21)
[2017-03-29] MEDS: INSULIN REGULAR, HUMAN 100 UNIT/ML 3 ML VIAL SQ PRN ×4 (00:19→17:22)
[2017-03-29] MEDS: ALBUTEROL FS 2.5 MG/3 ML VIAL.NEB NEB SCH ×4 (02:19→20:05)
[2017-03-29] MEDS: IPRATROPIUM NEB FS 0.5 MG/2.5 ML AMPUL.NEB NEB SCH ×4 (02:19→20:05)
[2017-03-29] MEDS: ESOMEPRAZOLE MAG TRIHYDRATE 20 MG CAPSULE.DR GT SCH (05:09)
[2017-03-29] MEDS: ASCORBIC ACID 500 MG TABLET GT SCH (09:00)
[2017-03-29] MEDS: INSULIN GLARGINE, 100 UNIT/ML CARTRIDGE SQ SCH ×2 (09:00→21:59)
[2017-03-29] MEDS: NYSTATIN TOP POWDER 15 GM BOTTLE TP SCH ×4 (09:00→21:58)
[2017-03-29] MEDS: VIT B CMPLX 3/FA/VIT C/BIOTIN 1 TAB TABLET PO SCH (09:00)
[2017-03-29] MEDS: HEPARIN SODIUM, PORCINE 5000 UNITS/1 ML VIAL SQ SCH ×2 (09:00→21:57)
[2017-03-29] MEDS: LACTOBACILLUS RHAMNOSUS GG 1 EACH CAP.SPRINK GT SCH ×2 (09:00→17:21)
[2017-03-29] MEDS: CADEXOMER IODINE 40 GM TUBE TP SCH (09:00)
[2017-03-29] MEDS: HYDROGEN PEROXIDE 480 ML BOTTLE TP SCH ×2 (09:00→21:58)
[2017-03-29] MEDS: METOPROLOL TARTRATE 50 MG TABLET GT SCH ×2 (09:00→21:59)
[2017-03-29] MEDS: hydrALAZINE HCL 25 MG TABLET GT SCH ×2 (09:00→17:21)
[2017-03-29] MEDS: POLYVINYL ALCOHOL 15 ML BOTTLE EACHEYE SCH ×2 (09:00→21:57)
[2017-03-29] MEDS: Z GUARD REMEDY 4 OZ OINT TP SCH ×5 (09:00→21:58)
[2017-03-29] MEDS: HYDROCODONE/APAP 5/325MG 1 EACH TABLET GT SCH ×2 (09:00→21:57)
[2017-03-29] MEDS ORDERED: DAKINS QUARTER STRENGTH (0.125%) 480 ML BOTTLE TOP PRN (10:30)
[2017-03-29] MEDS ORDERED: Z GUARD REMEDY 4 OZ OINT TP PRN (10:30)
--- NOTE | 2017-03-29 17:17 | NUR ---
INTERDISCIPLINARY TEAM CONFERENCE (IDT) was held on 03/20/17 and 03/27/17.Responsible republican unable to attend the meeting.call made to ariana pereyra,made aware about the discussions made on IDT meeting.left message.
[2017-03-29] MEDS: DAKINS QUARTER STRENGTH (0.125%) 480 ML BOTTLE TOP SCH (21:57)
[2017-03-30] VITALS: BP 172/72
[2017-03-30] MEDS: PROSOURCE / PROSTAT (PYXIS) 30 ML UDC GT SCH ×5 (00:01→23:08)
[2017-03-30] MEDS: METOCLOPRAMIDE HCL 10 MG/10 ML UDC GT SCH ×5 (00:01→23:08)
[2017-03-30] MEDS: BLOOD SUGAR DIAGNOSTIC 1 EACH STRIP IN SCH ×5 (00:01→23:08)
[2017-03-30] MEDS: INSULIN REGULAR, HUMAN 100 UNIT/ML 3 ML VIAL SQ PRN ×5 (00:03→23:08)
[2017-03-30] MEDS: CLONIDINE HCL 0.2 MG TABLET GT PRN ×2 (00:10→13:13)
[2017-03-30] MEDS: IPRATROPIUM NEB FS 0.5 MG/2.5 ML AMPUL.NEB NEB SCH ×4 (01:19→19:31)
[2017-03-30] MEDS: ALBUTEROL FS 2.5 MG/3 ML VIAL.NEB NEB SCH ×4 (01:19→19:31)
[2017-03-30] MEDS: RENAL NOVASOURCE 1,000 ML BOTTLE GT PRN (05:02)
[2017-03-30] MEDS: ESOMEPRAZOLE MAG TRIHYDRATE 20 MG CAPSULE.DR GT SCH (05:14)
[2017-03-30 06:00] VITALS: BP 149/67
[2017-03-30 08:02] VITALS: BP 161/76
[2017-03-30] MEDS: HEPARIN SODIUM, PORCINE 5000 UNITS/1 ML VIAL SQ SCH ×2 (09:00→20:33)
[2017-03-30] MEDS: ASCORBIC ACID 500 MG TABLET GT SCH (09:00)
[2017-03-30] MEDS: VIT B CMPLX 3/FA/VIT C/BIOTIN 1 TAB TABLET PO SCH (09:00)
[2017-03-30] MEDS: METOPROLOL TARTRATE 50 MG TABLET GT SCH ×2 (09:00→21:15)
[2017-03-30] MEDS: INSULIN GLARGINE, 100 UNIT/ML CARTRIDGE SQ SCH ×2 (09:00→21:15)
[2017-03-30] MEDS: POLYVINYL ALCOHOL 15 ML BOTTLE EACHEYE SCH ×2 (09:57→20:32)
[2017-03-30] MEDS: hydrALAZINE HCL 25 MG TABLET GT SCH ×2 (09:59→16:43)
[2017-03-30] MEDS: LACTOBACILLUS RHAMNOSUS GG 1 EACH CAP.SPRINK GT SCH ×2 (09:59→16:43)
--- NOTE | 2017-03-30 11:00 | NUR ---
Spoke with Alesia from infection control regarding discontinuation of patient's isolation, Per IC it can be discontinued because THOMAS Ramsay documented in her progress notes on 03/24/17 that isolation can be discontinued, resident's sacral wound no s/s of infection, wound bed clean, red and granulating. No purulent drainage. Order for isolation discontinued. Dr. Olivo aware. Responsible constitution party John notified of discontinuation of isolation, appreciated the call.
[2017-03-30 12:00] VITALS: BP 160/85
[2017-03-30] MEDS: HYDROCODONE/APAP 5/325MG 1 EACH TABLET GT SCH ×2 (13:00→20:33)
[2017-03-30] MEDS: Z GUARD REMEDY 4 OZ OINT TP SCH ×6 (14:00→21:14)
[2017-03-30] MEDS: CADEXOMER IODINE 40 GM TUBE TP SCH (14:00)
[2017-03-30] MEDS: DAKINS QUARTER STRENGTH (0.125%) 480 ML BOTTLE TOP SCH ×2 (14:00→21:14)
[2017-03-30] MEDS: NYSTATIN TOP POWDER 15 GM BOTTLE TP SCH ×4 (14:00→21:14)
[2017-03-30] MEDS: HYDROGEN PEROXIDE 480 ML BOTTLE TP SCH ×2 (14:00→21:14)
--- NOTE | 2017-03-30 14:00 | NUR ---
Seen and examined by Hellen Leija NP for Dr. Morejon NNO given.
[2017-03-30 18:00] VITALS: BP 149/78
[2017-03-30 20:01] VITALS: BP 143/58
[2017-03-31 00:17] VITALS: BP 140/72
[2017-03-31] MEDS: ALBUTEROL FS 2.5 MG/3 ML VIAL.NEB NEB SCH ×4 (00:48→19:55)
[2017-03-31] MEDS: IPRATROPIUM NEB FS 0.5 MG/2.5 ML AMPUL.NEB NEB SCH ×4 (00:48→19:55)
[2017-03-31] MEDS: BLOOD SUGAR DIAGNOSTIC 1 EACH STRIP IN SCH ×4 (05:56→23:06)
[2017-03-31] MEDS: PROSOURCE / PROSTAT (PYXIS) 30 ML UDC GT SCH ×4 (05:56→23:06)
[2017-03-31] MEDS: ESOMEPRAZOLE MAG TRIHYDRATE 20 MG CAPSULE.DR GT SCH (05:56)
[2017-03-31] MEDS: METOCLOPRAMIDE HCL 10 MG/10 ML UDC GT SCH ×4 (05:56→23:06)
[2017-03-31] MEDS: INSULIN REGULAR, HUMAN 100 UNIT/ML 3 ML VIAL SQ PRN ×2 (05:57→23:07)
[2017-03-31] MEDS: RENAL NOVASOURCE 1,000 ML BOTTLE GT PRN (06:00)
[2017-03-31 06:03] VITALS: BP 134/78
[2017-03-31 07:32] VITALS: BP 159/73
[2017-03-31] MEDS: POLYVINYL ALCOHOL 15 ML BOTTLE EACHEYE SCH ×2 (08:17→20:29)
[2017-03-31] MEDS: LACTOBACILLUS RHAMNOSUS GG 1 EACH CAP.SPRINK GT SCH ×2 (08:20→17:56)
[2017-03-31] MEDS: ASCORBIC ACID 500 MG TABLET GT SCH (08:20)
[2017-03-31] MEDS: HEPARIN SODIUM, PORCINE 5000 UNITS/1 ML VIAL SQ SCH ×2 (08:21→20:29)
[2017-03-31] MEDS: INSULIN GLARGINE, 100 UNIT/ML CARTRIDGE SQ SCH ×2 (08:22→21:05)
[2017-03-31] MEDS: VIT B CMPLX 3/FA/VIT C/BIOTIN 1 TAB TABLET PO SCH (08:38)
[2017-03-31] MEDS: HYDROCODONE/APAP 5/325MG 1 EACH TABLET GT SCH ×2 (14:36→20:29)
[2017-03-31] MEDS: NYSTATIN TOP POWDER 15 GM BOTTLE TP SCH ×4 (15:15→21:04)
[2017-03-31] MEDS: DAKINS QUARTER STRENGTH (0.125%) 480 ML BOTTLE TOP SCH ×2 (15:15→21:03)
[2017-03-31] MEDS: HYDROGEN PEROXIDE 480 ML BOTTLE TP SCH ×2 (15:15→21:04)
[2017-03-31] MEDS: Z GUARD REMEDY 4 OZ OINT TP SCH ×6 (15:15→21:04)
[2017-03-31] MEDS: CADEXOMER IODINE 40 GM TUBE TP SCH (15:15)
[2017-03-31] MEDS: hydrALAZINE HCL 25 MG TABLET GT SCH (17:55)
[2017-03-31 18:44] VITALS: BP 163/69
[2017-03-31 19:26] VITALS: BP 150/74
[2017-03-31] MEDS: METOPROLOL TARTRATE 50 MG TABLET GT SCH (21:05)
[2017-04-01 00:24] VITALS: BP 144/78
[2017-04-01] MEDS: ALBUTEROL FS 2.5 MG/3 ML VIAL.NEB NEB SCH ×4 (02:06→19:13)
[2017-04-01] MEDS: IPRATROPIUM NEB FS 0.5 MG/2.5 ML AMPUL.NEB NEB SCH ×4 (02:06→19:13)
[2017-04-01] MEDS: PROSOURCE / PROSTAT (PYXIS) 30 ML UDC GT SCH ×4 (06:04→23:45)
[2017-04-01] MEDS: BLOOD SUGAR DIAGNOSTIC 1 EACH STRIP IN SCH ×4 (06:04→23:45)
[2017-04-01] MEDS: ESOMEPRAZOLE MAG TRIHYDRATE 20 MG CAPSULE.DR GT SCH (06:04)
[2017-04-01] MEDS: METOCLOPRAMIDE HCL 10 MG/10 ML UDC GT SCH ×4 (06:04→23:45)
[2017-04-01] MEDS: INSULIN REGULAR, HUMAN 100 UNIT/ML 3 ML VIAL SQ PRN ×4 (06:05→23:46)
[2017-04-01 06:07] VITALS: BP 138/74
[2017-04-01] MEDS: RENAL NOVASOURCE 1,000 ML BOTTLE GT PRN (06:15)
[2017-04-01 07:43] VITALS: BP 164/80
[2017-04-01] MEDS: METOPROLOL TARTRATE 50 MG TABLET GT SCH ×2 (08:54→21:26)
[2017-04-01] MEDS: hydrALAZINE HCL 25 MG TABLET GT SCH ×2 (08:54→17:00)
[2017-04-01] MEDS: POLYVINYL ALCOHOL 15 ML BOTTLE EACHEYE SCH ×2 (08:54→20:40)
[2017-04-01] MEDS: ASCORBIC ACID 500 MG TABLET GT SCH (08:54)
[2017-04-01] MEDS: HEPARIN SODIUM, PORCINE 5000 UNITS/1 ML VIAL SQ SCH ×2 (08:55→20:41)
[2017-04-01] MEDS: INSULIN GLARGINE, 100 UNIT/ML CARTRIDGE SQ SCH ×2 (08:55→21:27)
[2017-04-01] MEDS: Z GUARD REMEDY 4 OZ OINT TP SCH ×6 (09:00→20:41)
[2017-04-01] MEDS: LACTOBACILLUS RHAMNOSUS GG 1 EACH CAP.SPRINK GT SCH ×2 (09:00→17:00)
[2017-04-01] MEDS: HYDROGEN PEROXIDE 480 ML BOTTLE TP SCH ×2 (09:00→20:41)
[2017-04-01] MEDS: DAKINS QUARTER STRENGTH (0.125%) 480 ML BOTTLE TOP SCH ×2 (09:00→20:41)
[2017-04-01] MEDS: HYDROCODONE/APAP 5/325MG 1 EACH TABLET GT SCH ×2 (09:00→20:40)
[2017-04-01] MEDS: VIT B CMPLX 3/FA/VIT C/BIOTIN 1 TAB TABLET PO SCH (09:00)
[2017-04-01] MEDS: NYSTATIN TOP POWDER 15 GM BOTTLE TP SCH ×4 (09:00→20:41)
[2017-04-01] MEDS: CADEXOMER IODINE 40 GM TUBE TP SCH (09:00)
[2017-04-01 16:01] VITALS: BP 164/80
[2017-04-01] MEDS: LACTULOSE 10 G/15 ML UDC (PYXIS) GT PRN (17:17)
[2017-04-01 18:20] VITALS: BP 165/71
--- NOTE | 2017-04-01 18:50 | NUR ---
Seen by Hellen Leija NP for PANDA Lambert given at this time.
[2017-04-01 19:51] VITALS: BP 144/91
[2017-04-02 00:15] VITALS: BP 146/74
[2017-04-02] MEDS: IPRATROPIUM NEB FS 0.5 MG/2.5 ML AMPUL.NEB NEB SCH ×4 (01:41→19:03)
[2017-04-02] MEDS: ALBUTEROL FS 2.5 MG/3 ML VIAL.NEB NEB SCH ×4 (01:41→19:03)
[2017-04-02] MEDS: METOCLOPRAMIDE HCL 10 MG/10 ML UDC GT SCH ×3 (05:58→17:47)
[2017-04-02] MEDS: INSULIN REGULAR, HUMAN 100 UNIT/ML 3 ML VIAL SQ PRN (05:58)
[2017-04-02] MEDS: BLOOD SUGAR DIAGNOSTIC 1 EACH STRIP IN SCH ×3 (05:58→17:47)
[2017-04-02] MEDS: ESOMEPRAZOLE MAG TRIHYDRATE 20 MG CAPSULE.DR GT SCH (05:58)
[2017-04-02] MEDS: PROSOURCE / PROSTAT (PYXIS) 30 ML UDC GT SCH ×3 (05:58→17:47)
[2017-04-02] MEDS: RENAL NOVASOURCE 1,000 ML BOTTLE GT PRN (06:03)
[2017-04-02 06:12] VITALS: BP 136/70
[2017-04-02 07:44] VITALS: BP_SYST 105; BP_SYST 176; BP_DIAS 51; BP_DIAS 86
[2017-04-02] MEDS: ASCORBIC ACID 500 MG TABLET GT SCH (08:19)
[2017-04-02] MEDS: POLYVINYL ALCOHOL 15 ML BOTTLE EACHEYE SCH ×2 (08:19→21:44)
[2017-04-02] MEDS: VIT B CMPLX 3/FA/VIT C/BIOTIN 1 TAB TABLET PO SCH (08:19)
[2017-04-02] MEDS: LACTOBACILLUS RHAMNOSUS GG 1 EACH CAP.SPRINK GT SCH ×2 (08:19→17:47)
[2017-04-02] MEDS: HEPARIN SODIUM, PORCINE 5000 UNITS/1 ML VIAL SQ SCH ×2 (08:20→21:45)
[2017-04-02] MEDS: INSULIN GLARGINE, 100 UNIT/ML CARTRIDGE SQ SCH ×2 (08:24→21:49)
[2017-04-02] MEDS: HYDROGEN PEROXIDE 480 ML BOTTLE TP SCH ×2 (09:00→21:45)
[2017-04-02] MEDS: NYSTATIN TOP POWDER 15 GM BOTTLE TP SCH ×4 (09:00→21:45)
[2017-04-02] MEDS: DAKINS QUARTER STRENGTH (0.125%) 480 ML BOTTLE TOP SCH ×2 (09:00→21:45)
[2017-04-02] MEDS: HYDROCODONE/APAP 5/325MG 1 EACH TABLET GT SCH ×2 (09:00→21:47)
[2017-04-02] MEDS: Z GUARD REMEDY 4 OZ OINT TP SCH ×6 (15:00→21:45)
[2017-04-02] MEDS: CADEXOMER IODINE 40 GM TUBE TP SCH (15:00)
[2017-04-02] MEDS: hydrALAZINE HCL 25 MG TABLET GT SCH (17:47)
[2017-04-02 18:28] VITALS: BP 156/76
[2017-04-02 19:47] VITALS: BP 150/70
[2017-04-02] MEDS: METOPROLOL TARTRATE 50 MG TABLET GT SCH (21:47)
[2017-04-03] VITALS: BP 159/80
[2017-04-03] MEDS: METOCLOPRAMIDE HCL 10 MG/10 ML UDC GT SCH ×5 (00:06→23:48)
[2017-04-03] MEDS: BLOOD SUGAR DIAGNOSTIC 1 EACH STRIP IN SCH ×5 (00:06→23:48)
[2017-04-03] MEDS: PROSOURCE / PROSTAT (PYXIS) 30 ML UDC GT SCH ×5 (00:06→23:48)
[2017-04-03] MEDS: INSULIN REGULAR, HUMAN 100 UNIT/ML 3 ML VIAL SQ PRN ×5 (00:07→23:49)
[2017-04-03] MEDS: ALBUTEROL FS 2.5 MG/3 ML VIAL.NEB NEB SCH ×4 (02:22→19:40)
[2017-04-03] MEDS: IPRATROPIUM NEB FS 0.5 MG/2.5 ML AMPUL.NEB NEB SCH ×4 (02:22→19:40)
[2017-04-03] MEDS: ESOMEPRAZOLE MAG TRIHYDRATE 20 MG CAPSULE.DR GT SCH (05:19)
[2017-04-03] MEDS: RENAL NOVASOURCE 1,000 ML BOTTLE GT PRN (05:20)
[2017-04-03 06:00] VITALS: BP 164/86
[2017-04-03] MEDS: CLONIDINE HCL 0.2 MG TABLET GT PRN ×2 (06:51→06:53)
[2017-04-03 07:34] VITALS: BP 155/90
[2017-04-03] MEDS: POLYVINYL ALCOHOL 15 ML BOTTLE EACHEYE SCH ×2 (09:39→21:25)
[2017-04-03] MEDS: LACTOBACILLUS RHAMNOSUS GG 1 EACH CAP.SPRINK GT SCH ×2 (09:40→17:44)
[2017-04-03] MEDS: hydrALAZINE HCL 25 MG TABLET GT SCH ×2 (09:40→17:44)
[2017-04-03] MEDS: VIT B CMPLX 3/FA/VIT C/BIOTIN 1 TAB TABLET PO SCH (09:40)
[2017-04-03] MEDS: ASCORBIC ACID 500 MG TABLET GT SCH (09:40)
[2017-04-03] MEDS: METOPROLOL TARTRATE 50 MG TABLET GT SCH ×2 (09:40→21:27)
[2017-04-03] MEDS: HEPARIN SODIUM, PORCINE 5000 UNITS/1 ML VIAL SQ SCH ×2 (09:42→21:26)
[2017-04-03] MEDS: INSULIN GLARGINE, 100 UNIT/ML CARTRIDGE SQ SCH ×2 (09:48→21:28)
[2017-04-03] MEDS: HYDROCODONE/APAP 5/325MG 1 EACH TABLET GT SCH ×2 (12:15→21:26)
[2017-04-03] MEDS: HYDROGEN PEROXIDE 480 ML BOTTLE TP SCH ×2 (15:00→21:26)
[2017-04-03] MEDS: CADEXOMER IODINE 40 GM TUBE TP SCH (15:00)
[2017-04-03] MEDS: NYSTATIN TOP POWDER 15 GM BOTTLE TP SCH ×4 (15:00→21:27)
[2017-04-03] MEDS: Z GUARD REMEDY 4 OZ OINT TP SCH ×6 (15:00→21:27)
[2017-04-03] MEDS: DAKINS QUARTER STRENGTH (0.125%) 480 ML BOTTLE TOP SCH ×2 (15:00→21:26)
[2017-04-03 15:27] VITALS: BP 155/96
[2017-04-03] MEDS: LACTULOSE 10 G/15 ML UDC (PYXIS) GT PRN (17:48)
[2017-04-03 18:25] VITALS: BP 152/88
[2017-04-03 19:50] VITALS: BP 147/73
[2017-04-04] VITALS (7 sets, daily range): BP systolic 0–167; BP diastolic 0–79
[2017-04-04] MEDS: ALBUTEROL FS 2.5 MG/3 ML VIAL.NEB NEB SCH ×4 (01:21→19:30)
[2017-04-04] MEDS: IPRATROPIUM NEB FS 0.5 MG/2.5 ML AMPUL.NEB NEB SCH ×4 (01:21→19:30)
[2017-04-04] MEDS: RENAL NOVASOURCE 1,000 ML BOTTLE GT PRN (05:37)
[2017-04-04] MEDS: ESOMEPRAZOLE MAG TRIHYDRATE 20 MG CAPSULE.DR GT SCH (05:37)
[2017-04-04] MEDS: PROSOURCE / PROSTAT (PYXIS) 30 ML UDC GT SCH ×4 (05:37→23:26)
[2017-04-04] MEDS: METOCLOPRAMIDE HCL 10 MG/10 ML UDC GT SCH ×4 (05:37→23:26)
[2017-04-04] MEDS: BLOOD SUGAR DIAGNOSTIC 1 EACH STRIP IN SCH ×4 (05:39→23:26)
[2017-04-04] MEDS: INSULIN REGULAR, HUMAN 100 UNIT/ML 3 ML VIAL SQ PRN ×3 (05:39→23:28)
[2017-04-04] MEDS: HYDROCODONE/APAP 5/325MG 1 EACH TABLET GT SCH ×2 (08:27→21:41)
[2017-04-04] MEDS: LACTOBACILLUS RHAMNOSUS GG 1 EACH CAP.SPRINK GT SCH ×2 (08:29→16:47)
[2017-04-04] MEDS: POLYVINYL ALCOHOL 15 ML BOTTLE EACHEYE SCH ×2 (08:29→21:40)
[2017-04-04] MEDS: HYDROGEN PEROXIDE 480 ML BOTTLE TP SCH ×2 (08:31→21:42)
[2017-04-04] MEDS: DAKINS QUARTER STRENGTH (0.125%) 480 ML BOTTLE TOP SCH ×2 (08:31→21:41)
[2017-04-04] MEDS: HEPARIN SODIUM, PORCINE 5000 UNITS/1 ML VIAL SQ SCH ×2 (08:31→21:41)
[2017-04-04] MEDS: ASCORBIC ACID 500 MG TABLET GT SCH (08:32)
[2017-04-04] MEDS: CADEXOMER IODINE 40 GM TUBE TP SCH (08:34)
[2017-04-04] MEDS: NYSTATIN TOP POWDER 15 GM BOTTLE TP SCH ×4 (08:34→21:42)
[2017-04-04] MEDS: Z GUARD REMEDY 4 OZ OINT TP SCH ×6 (08:36→21:42)
[2017-04-04] MEDS: VIT B CMPLX 3/FA/VIT C/BIOTIN 1 TAB TABLET PO SCH (08:40)
[2017-04-04] MEDS: INSULIN GLARGINE, 100 UNIT/ML CARTRIDGE SQ SCH ×2 (08:42→21:43)
--- NOTE | 2017-04-04 09:04 | NUR ---
RN NOTES PATIENT LEFT UNIT VIA GURNEY FOR HEMODIALYSIS IN NO ACUTE SIGNS OF DISTRESS. V/S CHECKED: BP 167/79MMHG, P 85, R 16, T 98.2F, BS 149 MG/DL AND SP02 100%.
--- NOTE | 2017-04-04 12:47 | NUR ---
NED NOTES V/S AT 1200 NOT TAKEN, PT NOT IN THE UNIT, WENT FOR HD THIS MORNING. Addendum: 04/04/17 at 1248 by HUY MARTI RN Amended: Links added.
--- NOTE | 2017-04-04 14:14 | NUR ---
RN NOTES PATIENT RETURNED TO UNIT AT 1410H VIA GURNEY ACCOMPANIED BY 2 AMBULANCE STAFF. AWAKE AND ALERT. PT IS STABLE. HOB ELEVATED. AV FISTULA ON RIGHT LOWER ARM INTACT WITH DRESSING IN PLACED WITH + THRILL AND BRUIT, NO ACTIVE BLEEDING NOTED. V/S TAKEN POST HD: 140/73MMHG, P 784, R 18, T 98.6F AND SP02 99%. WILL CONTINUE TO MONITOR.
[2017-04-04] MEDS: hydrALAZINE HCL 25 MG TABLET GT SCH (16:49)
[2017-04-04] MEDS: CLONIDINE HCL 0.2 MG TABLET GT PRN (16:50)
[2017-04-04] MEDS: METOPROLOL TARTRATE 50 MG TABLET GT SCH (21:42)
[2017-04-05 00:06] VITALS: BP 102/56
[2017-04-05] MEDS: RENAL NOVASOURCE 1,000 ML BOTTLE GT PRN (00:36)
[2017-04-05] MEDS: IPRATROPIUM NEB FS 0.5 MG/2.5 ML AMPUL.NEB NEB SCH ×4 (01:34→19:58)
[2017-04-05] MEDS: ALBUTEROL FS 2.5 MG/3 ML VIAL.NEB NEB SCH ×4 (01:34→19:58)
[2017-04-05] MEDS: BLOOD SUGAR DIAGNOSTIC 1 EACH STRIP IN SCH ×3 (06:10→17:21)
[2017-04-05] MEDS: ESOMEPRAZOLE MAG TRIHYDRATE 20 MG CAPSULE.DR GT SCH (06:10)
[2017-04-05] MEDS: METOCLOPRAMIDE HCL 10 MG/10 ML UDC GT SCH ×3 (06:10→17:21)
[2017-04-05] MEDS: PROSOURCE / PROSTAT (PYXIS) 30 ML UDC GT SCH ×3 (06:10→17:21)
[2017-04-05] MEDS: INSULIN REGULAR, HUMAN 100 UNIT/ML 3 ML VIAL SQ PRN ×3 (06:12→17:53)
[2017-04-05 06:32] VITALS: BP 121/58
[2017-04-05 08:00] VITALS: BP 158/82
[2017-04-05] MEDS: CADEXOMER IODINE 40 GM TUBE TP SCH ×3 (09:00→21:04)
[2017-04-05] MEDS: HYDROCODONE/APAP 5/325MG 1 EACH TABLET GT SCH ×2 (09:00→21:03)
[2017-04-05] MEDS: POLYVINYL ALCOHOL 15 ML BOTTLE EACHEYE SCH ×2 (09:39→21:01)
[2017-04-05] MEDS: hydrALAZINE HCL 25 MG TABLET GT SCH ×2 (09:40→17:21)
[2017-04-05] MEDS: ASCORBIC ACID 500 MG TABLET GT SCH (09:40)
[2017-04-05] MEDS: VIT B CMPLX 3/FA/VIT C/BIOTIN 1 TAB TABLET PO SCH (09:40)
[2017-04-05] MEDS: LACTOBACILLUS RHAMNOSUS GG 1 EACH CAP.SPRINK GT SCH ×2 (09:40→17:21)
[2017-04-05] MEDS: HEPARIN SODIUM, PORCINE 5000 UNITS/1 ML VIAL SQ SCH ×2 (09:43→21:04)
[2017-04-05] MEDS: INSULIN GLARGINE, 100 UNIT/ML CARTRIDGE SQ SCH ×2 (09:43→21:07)
[2017-04-05] MEDS: METOPROLOL TARTRATE 50 MG TABLET GT SCH ×2 (09:50→21:06)
[2017-04-05] MEDS: DAKINS QUARTER STRENGTH (0.125%) 480 ML BOTTLE TOP SCH ×2 (10:00→21:04)
[2017-04-05] MEDS: HYDROGEN PEROXIDE 480 ML BOTTLE TP SCH ×2 (10:00→21:04)
[2017-04-05] MEDS: NYSTATIN TOP POWDER 15 GM BOTTLE TP SCH ×4 (10:00→21:04)
[2017-04-05] MEDS: Z GUARD REMEDY 4 OZ OINT TP SCH ×6 (10:00→21:05)
[2017-04-05] MEDS ORDERED: CADEXOMER IODINE 40 GM TUBE TP PRN (12:00)
[2017-04-05 14:08] VITALS: BP 158/82
[2017-04-05 18:08] VITALS: BP 135/70
[2017-04-05 20:30] VITALS: BP 151/84
[2017-04-06 00:04] VITALS: BP 133/74
[2017-04-06] MEDS: BLOOD SUGAR DIAGNOSTIC 1 EACH STRIP IN SCH ×4 (00:06→17:51)
[2017-04-06] MEDS: PROSOURCE / PROSTAT (PYXIS) 30 ML UDC GT SCH ×4 (00:06→17:51)
[2017-04-06] MEDS: METOCLOPRAMIDE HCL 10 MG/10 ML UDC GT SCH ×4 (00:06→17:51)
[2017-04-06] MEDS: INSULIN REGULAR, HUMAN 100 UNIT/ML 3 ML VIAL SQ PRN ×4 (00:08→17:53)
[2017-04-06] MEDS: ALBUTEROL FS 2.5 MG/3 ML VIAL.NEB NEB SCH ×4 (01:52→19:38)
[2017-04-06] MEDS: IPRATROPIUM NEB FS 0.5 MG/2.5 ML AMPUL.NEB NEB SCH ×4 (01:52→19:38)
[2017-04-06] MEDS: ESOMEPRAZOLE MAG TRIHYDRATE 20 MG CAPSULE.DR GT SCH (05:51)
[2017-04-06 06:06] VITALS: BP 142/71
[2017-04-06 07:57] VITALS: BP 164/77
[2017-04-06] MEDS: Z GUARD REMEDY 4 OZ OINT TP SCH ×6 (09:00→21:14)
[2017-04-06] MEDS: hydrALAZINE HCL 25 MG TABLET GT SCH ×2 (09:00→17:51)
[2017-04-06] MEDS: NYSTATIN TOP POWDER 15 GM BOTTLE TP SCH ×4 (09:00→21:14)
[2017-04-06] MEDS: ASCORBIC ACID 500 MG TABLET GT SCH (09:00)
[2017-04-06] MEDS: HYDROCODONE/APAP 5/325MG 1 EACH TABLET GT SCH ×2 (09:00→21:11)
[2017-04-06] MEDS: DAKINS QUARTER STRENGTH (0.125%) 480 ML BOTTLE TOP SCH ×2 (09:00→21:13)
[2017-04-06] MEDS: CADEXOMER IODINE 40 GM TUBE TP SCH ×4 (09:00→21:13)
[2017-04-06] MEDS: INSULIN GLARGINE, 100 UNIT/ML CARTRIDGE SQ SCH ×2 (09:00→21:16)
[2017-04-06] MEDS: METOPROLOL TARTRATE 50 MG TABLET GT SCH ×2 (09:00→21:15)
[2017-04-06] MEDS: VIT B CMPLX 3/FA/VIT C/BIOTIN 1 TAB TABLET PO SCH (09:00)
[2017-04-06] MEDS: HYDROGEN PEROXIDE 480 ML BOTTLE TP SCH ×2 (09:00→21:13)
[2017-04-06] MEDS: HEPARIN SODIUM, PORCINE 5000 UNITS/1 ML VIAL SQ SCH ×2 (09:00→21:13)
[2017-04-06] MEDS: POLYVINYL ALCOHOL 15 ML BOTTLE EACHEYE SCH ×2 (09:00→21:11)
[2017-04-06] MEDS: LACTOBACILLUS RHAMNOSUS GG 1 EACH CAP.SPRINK GT SCH ×2 (09:00→17:51)
[2017-04-06 12:00] VITALS: BP 145/80
--- NOTE | 2017-04-06 15:10 | NUR ---
Pt noted with reddish raised lesion on the plantar area of right foot, seen by Dr. Olivo and Dr. Celestine Bettencourt on 03/17/17 and 03/19/17. Asked Dr. Olivo to assess it again today since it looks a little more raised and harder when touched. Pt also has a small dried blister on the heel. Dr. Olivo said the reddish raised lesion looks like a cyst. Asked Dr. Rojas to see pt for podiatry consult.
--- NOTE | 2017-04-06 15:50 | NUR ---
,independent living specialist seen and examined the pt right foot and said will see the pt again tomorrow and may be do wound debridement on right foot reddish raised lesions and also noticed the dry blister on rt heel.
[2017-04-06] MEDS: RENAL NOVASOURCE 1,000 ML BOTTLE GT PRN (17:51)
[2017-04-06 20:10] VITALS: BP 124/74
[2017-04-07] MEDS: PROSOURCE / PROSTAT (PYXIS) 30 ML UDC GT SCH ×5 (00:16→23:14)
[2017-04-07] MEDS: BLOOD SUGAR DIAGNOSTIC 1 EACH STRIP IN SCH ×5 (00:16→23:14)
[2017-04-07] MEDS: METOCLOPRAMIDE HCL 10 MG/10 ML UDC GT SCH ×5 (00:16→23:14)
[2017-04-07] MEDS: INSULIN REGULAR, HUMAN 100 UNIT/ML 3 ML VIAL SQ PRN ×4 (00:17→23:15)
[2017-04-07 00:23] VITALS: BP 138/75
[2017-04-07] MEDS: ALBUTEROL FS 2.5 MG/3 ML VIAL.NEB NEB SCH ×4 (01:43→19:36)
[2017-04-07] MEDS: IPRATROPIUM NEB FS 0.5 MG/2.5 ML AMPUL.NEB NEB SCH ×4 (01:43→19:36)
[2017-04-07] MEDS: ESOMEPRAZOLE MAG TRIHYDRATE 20 MG CAPSULE.DR GT SCH (05:59)
[2017-04-07 06:15] VITALS: BP 126/74
[2017-04-07 07:38] VITALS: BP 130/53
[2017-04-07] MEDS: VIT B CMPLX 3/FA/VIT C/BIOTIN 1 TAB TABLET PO SCH (08:18)
[2017-04-07] MEDS: HEPARIN SODIUM, PORCINE 5000 UNITS/1 ML VIAL SQ SCH ×2 (08:18→20:34)
[2017-04-07] MEDS: ASCORBIC ACID 500 MG TABLET GT SCH (08:18)
[2017-04-07] MEDS: INSULIN GLARGINE, 100 UNIT/ML CARTRIDGE SQ SCH ×2 (08:18→21:18)
[2017-04-07] MEDS: LACTOBACILLUS RHAMNOSUS GG 1 EACH CAP.SPRINK GT SCH ×2 (08:18→17:00)
[2017-04-07] MEDS: POLYVINYL ALCOHOL 15 ML BOTTLE EACHEYE SCH ×2 (08:18→20:33)
[2017-04-07 14:30] VITALS: BP 119/90
[2017-04-07] MEDS: HYDROCODONE/APAP 5/325MG 1 EACH TABLET GT SCH ×2 (15:00→20:33)
[2017-04-07] MEDS: DAKINS QUARTER STRENGTH (0.125%) 480 ML BOTTLE TOP SCH ×2 (16:00→21:16)
[2017-04-07] MEDS: Z GUARD REMEDY 4 OZ OINT TP SCH ×6 (16:00→21:17)
[2017-04-07] MEDS: HYDROGEN PEROXIDE 480 ML BOTTLE TP SCH ×2 (16:00→21:16)
[2017-04-07] MEDS: CADEXOMER IODINE 40 GM TUBE TP SCH ×4 (16:00→21:16)
[2017-04-07] MEDS: NYSTATIN TOP POWDER 15 GM BOTTLE TP SCH ×4 (16:00→21:16)
[2017-04-07] MEDS: hydrALAZINE HCL 25 MG TABLET GT SCH (17:00)
[2017-04-07 18:30] VITALS: BP 122/86
[2017-04-07 21:13] VITALS: BP 102/52
[2017-04-07] MEDS: METOPROLOL TARTRATE 50 MG TABLET GT SCH (21:17)
[2017-04-08 01:06] VITALS: BP 106/60
[2017-04-08] MEDS: ALBUTEROL FS 2.5 MG/3 ML VIAL.NEB NEB SCH ×4 (01:50→20:09)
[2017-04-08] MEDS: IPRATROPIUM NEB FS 0.5 MG/2.5 ML AMPUL.NEB NEB SCH ×4 (01:50→20:09)
[2017-04-08] MEDS: BLOOD SUGAR DIAGNOSTIC 1 EACH STRIP IN SCH ×4 (05:57→23:11)
[2017-04-08] MEDS: PROSOURCE / PROSTAT (PYXIS) 30 ML UDC GT SCH ×4 (05:57→23:11)
[2017-04-08] MEDS: METOCLOPRAMIDE HCL 10 MG/10 ML UDC GT SCH ×4 (05:57→23:11)
[2017-04-08] MEDS: ESOMEPRAZOLE MAG TRIHYDRATE 20 MG CAPSULE.DR GT SCH (05:57)
[2017-04-08] MEDS: INSULIN REGULAR, HUMAN 100 UNIT/ML 3 ML VIAL SQ PRN ×4 (05:58→23:12)
[2017-04-08 06:25] VITALS: BP 116/62
[2017-04-08] MEDS: RENAL NOVASOURCE 1,000 ML BOTTLE GT PRN (06:32)
[2017-04-08 07:39] VITALS: BP 147/76
[2017-04-08] MEDS: VIT B CMPLX 3/FA/VIT C/BIOTIN 1 TAB TABLET PO SCH (09:00)
[2017-04-08] MEDS: ASCORBIC ACID 500 MG TABLET GT SCH (09:00)
[2017-04-08] MEDS: POLYVINYL ALCOHOL 15 ML BOTTLE EACHEYE SCH ×2 (09:00→20:21)
[2017-04-08] MEDS: INSULIN GLARGINE, 100 UNIT/ML CARTRIDGE SQ SCH ×2 (09:00→21:10)
[2017-04-08] MEDS: HYDROGEN PEROXIDE 480 ML BOTTLE TP SCH ×2 (09:00→21:06)
[2017-04-08] MEDS: NYSTATIN TOP POWDER 15 GM BOTTLE TP SCH ×4 (09:00→21:06)
[2017-04-08] MEDS: HEPARIN SODIUM, PORCINE 5000 UNITS/1 ML VIAL SQ SCH ×2 (09:00→20:21)
[2017-04-08] MEDS: METOPROLOL TARTRATE 50 MG TABLET GT SCH ×2 (09:00→21:08)
[2017-04-08] MEDS: DAKINS QUARTER STRENGTH (0.125%) 480 ML BOTTLE TOP SCH ×2 (09:00→21:06)
[2017-04-08] MEDS: HYDROCODONE/APAP 5/325MG 1 EACH TABLET GT SCH ×2 (09:00→20:21)
[2017-04-08] MEDS: Z GUARD REMEDY 4 OZ OINT TP SCH ×6 (09:00→21:08)
[2017-04-08] MEDS: hydrALAZINE HCL 25 MG TABLET GT SCH ×2 (09:00→17:40)
[2017-04-08] MEDS: LACTOBACILLUS RHAMNOSUS GG 1 EACH CAP.SPRINK GT SCH ×2 (09:00→17:40)
[2017-04-08] MEDS: CADEXOMER IODINE 40 GM TUBE TP SCH ×4 (09:00→21:06)
[2017-04-08] MEDS: LACTULOSE 10 G/15 ML UDC (PYXIS) GT PRN (11:24)
[2017-04-08 16:11] VITALS: BP 147/76
[2017-04-08 18:29] VITALS: BP 168/70
[2017-04-08 20:26] VITALS: BP 164/75
[2017-04-09 00:19] VITALS: BP 142/72
[2017-04-09] MEDS: ALBUTEROL FS 2.5 MG/3 ML VIAL.NEB NEB SCH ×4 (00:32→18:56)
[2017-04-09] MEDS: IPRATROPIUM NEB FS 0.5 MG/2.5 ML AMPUL.NEB NEB SCH ×4 (00:32→18:56)
[2017-04-09] MEDS: BLOOD SUGAR DIAGNOSTIC 1 EACH STRIP IN SCH ×3 (05:55→17:39)
[2017-04-09] MEDS: PROSOURCE / PROSTAT (PYXIS) 30 ML UDC GT SCH ×3 (05:55→17:39)
[2017-04-09] MEDS: ESOMEPRAZOLE MAG TRIHYDRATE 20 MG CAPSULE.DR GT SCH (05:55)
[2017-04-09] MEDS: METOCLOPRAMIDE HCL 10 MG/10 ML UDC GT SCH ×3 (05:55→17:39)
[2017-04-09] MEDS: INSULIN REGULAR, HUMAN 100 UNIT/ML 3 ML VIAL SQ PRN ×2 (05:56→17:49)
[2017-04-09 06:16] VITALS: BP 138/80
[2017-04-09 07:34] VITALS: BP 128/67
[2017-04-09] MEDS: VIT B CMPLX 3/FA/VIT C/BIOTIN 1 TAB TABLET PO SCH (08:09)
[2017-04-09] MEDS: POLYVINYL ALCOHOL 15 ML BOTTLE EACHEYE SCH ×2 (08:09→20:29)
[2017-04-09] MEDS: ASCORBIC ACID 500 MG TABLET GT SCH (08:09)
[2017-04-09] MEDS: LACTOBACILLUS RHAMNOSUS GG 1 EACH CAP.SPRINK GT SCH ×2 (08:09→17:39)
[2017-04-09] MEDS: HEPARIN SODIUM, PORCINE 5000 UNITS/1 ML VIAL SQ SCH ×2 (08:10→20:30)
[2017-04-09] MEDS: INSULIN GLARGINE, 100 UNIT/ML CARTRIDGE SQ SCH ×2 (08:10→21:12)
--- NOTE | 2017-04-09 09:40 | NUR ---
Relayed [facility] control officer manager's recommendations to Dr. Olivo. Ssrs Developer wrote to continue same Prostat order and that they will monitor albumin and discuss low potassium at [facility]. No new order.
[2017-04-09] MEDS: DAKINS QUARTER STRENGTH (0.125%) 480 ML BOTTLE TOP SCH ×2 (15:30→20:32)
[2017-04-09] MEDS: HYDROGEN PEROXIDE 480 ML BOTTLE TP SCH ×2 (15:30→20:32)
[2017-04-09] MEDS: NYSTATIN TOP POWDER 15 GM BOTTLE TP SCH ×4 (15:30→20:33)
[2017-04-09] MEDS: CADEXOMER IODINE 40 GM TUBE TP SCH ×4 (15:30→20:32)
[2017-04-09] MEDS: Z GUARD REMEDY 4 OZ OINT TP SCH ×4 (15:30→20:33)
[2017-04-09] MEDS: HYDROCODONE/APAP 5/325MG 1 EACH TABLET GT SCH ×2 (15:30→20:30)
[2017-04-09] MEDS: hydrALAZINE HCL 25 MG TABLET GT SCH (17:39)
[2017-04-09] MEDS: LACTULOSE 10 G/15 ML UDC (PYXIS) GT PRN (17:39)
[2017-04-09 18:47] VITALS: BP 136/64
[2017-04-09 19:29] VITALS: BP 164/75
[2017-04-09] MEDS: METOPROLOL TARTRATE 50 MG TABLET GT SCH (21:12)
[2017-04-10] MEDS: METOCLOPRAMIDE HCL 10 MG/10 ML UDC GT SCH ×5 (00:04→23:47)
[2017-04-10] MEDS: BLOOD SUGAR DIAGNOSTIC 1 EACH STRIP IN SCH ×5 (00:04→23:47)
[2017-04-10] MEDS: RENAL NOVASOURCE 1,000 ML BOTTLE GT PRN (00:04)
[2017-04-10] MEDS: PROSOURCE / PROSTAT (PYXIS) 30 ML UDC GT SCH ×5 (00:04→23:47)
[2017-04-10] MEDS: CLONIDINE HCL 0.2 MG TABLET GT PRN ×3 (00:04→23:47)
[2017-04-10 00:05] VITALS: BP 166/75
[2017-04-10] MEDS: INSULIN REGULAR, HUMAN 100 UNIT/ML 3 ML VIAL SQ PRN ×5 (00:05→23:48)
[2017-04-10] MEDS: ALBUTEROL FS 2.5 MG/3 ML VIAL.NEB NEB SCH ×4 (01:28→20:18)
[2017-04-10] MEDS: IPRATROPIUM NEB FS 0.5 MG/2.5 ML AMPUL.NEB NEB SCH ×4 (01:28→20:18)
[2017-04-10] MEDS: ESOMEPRAZOLE MAG TRIHYDRATE 20 MG CAPSULE.DR GT SCH (05:15)
[2017-04-10 06:01] VITALS: BP 165/78
[2017-04-10 07:34] VITALS: BP 135/63
[2017-04-10] MEDS: METOPROLOL TARTRATE 50 MG TABLET GT SCH ×2 (09:35→21:22)
[2017-04-10] MEDS: POLYVINYL ALCOHOL 15 ML BOTTLE EACHEYE SCH ×2 (09:35→20:43)
[2017-04-10] MEDS: LACTOBACILLUS RHAMNOSUS GG 1 EACH CAP.SPRINK GT SCH ×2 (09:35→17:28)
[2017-04-10] MEDS: hydrALAZINE HCL 25 MG TABLET GT SCH ×2 (09:35→17:28)
[2017-04-10] MEDS: VIT B CMPLX 3/FA/VIT C/BIOTIN 1 TAB TABLET PO SCH (09:36)
[2017-04-10] MEDS: ASCORBIC ACID 500 MG TABLET GT SCH (09:36)
[2017-04-10] MEDS: HYDROCODONE/APAP 5/325MG 1 EACH TABLET GT SCH ×2 (09:36→20:48)
[2017-04-10] MEDS: HEPARIN SODIUM, PORCINE 5000 UNITS/1 ML VIAL SQ SCH ×2 (09:36→20:51)
[2017-04-10] MEDS: INSULIN GLARGINE, 100 UNIT/ML CARTRIDGE SQ SCH ×2 (09:36→21:22)
[2017-04-10] MEDS: CADEXOMER IODINE 40 GM TUBE TP SCH ×4 (09:37→20:51)
[2017-04-10] MEDS: DAKINS QUARTER STRENGTH (0.125%) 480 ML BOTTLE TOP SCH ×2 (09:37→20:51)
[2017-04-10] MEDS: HYDROGEN PEROXIDE 480 ML BOTTLE TP SCH ×2 (09:37→20:51)
[2017-04-10] MEDS: NYSTATIN TOP POWDER 15 GM BOTTLE TP SCH ×4 (09:38→20:52)
[2017-04-10] MEDS: Z GUARD REMEDY 4 OZ OINT TP SCH ×4 (09:39→20:52)
--- NOTE | 2017-04-10 11:30 | NUR ---
Dr. Delgadillo in to find out if consent is obtained from family, informed MD that family is not returning the call and just left a message again, he stated that get 2 physician to consent the procedure. Will notify Dr. Morejon.
--- NOTE | 2017-04-10 12:10 | NUR ---
LE for 04/08/17 Left a message 3x to John Woodall, responsible democrat to obtain consent regarding plan by Dr. Fowler, cyber intelligence analyst to do incision and drainage in the R plantar foot boil. Endorsed to follow-up in AM.
--- NOTE | 2017-04-10 12:30 | NUR ---
Notified Dr. Morejon that we are trying to get a hold patient's responsible libertarian to get consent for I and D, however unsuccessful. Dr. Morejon signed consent which was also signed by Dr. Fowler. Dr. Irwin did the procedure, patient tolerated well with local treatment of Betadine initiated.
[2017-04-10 13:15] VITALS: BP 135/75
[2017-04-10 18:09] VITALS: BP 145/73
[2017-04-10 20:18] VITALS: BP 173/18
[2017-04-10] MEDS: POVIDONE-IODINE OINT 28.4 GM TUBE TP SCH (21:12)
[2017-04-11] MEDS: IPRATROPIUM NEB FS 0.5 MG/2.5 ML AMPUL.NEB NEB SCH ×3 (02:01→19:15)
[2017-04-11] MEDS: ALBUTEROL FS 2.5 MG/3 ML VIAL.NEB NEB SCH ×3 (02:01→19:15)
[2017-04-11 03:08] VITALS: BP 163/69
[2017-04-11] MEDS: PROSOURCE / PROSTAT (PYXIS) 30 ML UDC GT SCH ×4 (05:09→23:29)
[2017-04-11] MEDS: ESOMEPRAZOLE MAG TRIHYDRATE 20 MG CAPSULE.DR GT SCH (05:09)
[2017-04-11] MEDS: RENAL NOVASOURCE 1,000 ML BOTTLE GT PRN (05:09)
[2017-04-11] MEDS: CLONIDINE HCL 0.2 MG TABLET GT PRN (05:09)
[2017-04-11] MEDS: BLOOD SUGAR DIAGNOSTIC 1 EACH STRIP IN SCH ×4 (05:09→23:29)
[2017-04-11] MEDS: METOCLOPRAMIDE HCL 10 MG/10 ML UDC GT SCH ×4 (05:09→23:29)
[2017-04-11] MEDS: INSULIN REGULAR, HUMAN 100 UNIT/ML 3 ML VIAL SQ PRN ×3 (05:10→23:30)
[2017-04-11 06:23] VITALS: BP 189/90
[2017-04-11 07:29] VITALS: BP 137/58
[2017-04-11] MEDS: VIT B CMPLX 3/FA/VIT C/BIOTIN 1 TAB TABLET PO SCH (08:38)
[2017-04-11] MEDS: ASCORBIC ACID 500 MG TABLET GT SCH (08:38)
[2017-04-11] MEDS: LACTOBACILLUS RHAMNOSUS GG 1 EACH CAP.SPRINK GT SCH ×2 (08:38→17:26)
[2017-04-11] MEDS: POLYVINYL ALCOHOL 15 ML BOTTLE EACHEYE SCH ×2 (08:38→20:31)
[2017-04-11] MEDS: HEPARIN SODIUM, PORCINE 5000 UNITS/1 ML VIAL SQ SCH ×2 (08:39→20:32)
[2017-04-11] MEDS: INSULIN GLARGINE, 100 UNIT/ML CARTRIDGE SQ SCH ×2 (08:40→21:17)
[2017-04-11 14:30] VITALS: BP 103/58
[2017-04-11] MEDS: HYDROCODONE/APAP 5/325MG 1 EACH TABLET GT SCH ×2 (15:00→20:31)
[2017-04-11] MEDS: DAKINS QUARTER STRENGTH (0.125%) 480 ML BOTTLE TOP SCH ×2 (15:30→20:32)
[2017-04-11] MEDS: POVIDONE-IODINE OINT 28.4 GM TUBE TP SCH ×2 (15:30→20:32)
[2017-04-11] MEDS: HYDROGEN PEROXIDE 480 ML BOTTLE TP SCH ×2 (15:30→20:32)
[2017-04-11] MEDS: NYSTATIN TOP POWDER 15 GM BOTTLE TP SCH ×4 (15:30→20:32)
[2017-04-11] MEDS: Z GUARD REMEDY 4 OZ OINT TP SCH ×4 (15:30→20:32)
[2017-04-11] MEDS: CADEXOMER IODINE 40 GM TUBE TP SCH ×4 (15:30→20:32)
[2017-04-11] MEDS: hydrALAZINE HCL 25 MG TABLET GT SCH (17:00)
[2017-04-11 18:31] VITALS: BP 142/73
[2017-04-11 19:34] VITALS: BP 140/73
[2017-04-11] MEDS: METOPROLOL TARTRATE 50 MG TABLET GT SCH (21:17)
[2017-04-11] MEDS: LACTULOSE 10 G/15 ML UDC (PYXIS) GT PRN (23:29)
[2017-04-12 00:54] VITALS: BP 148/62
[2017-04-12] MEDS: ALBUTEROL FS 2.5 MG/3 ML VIAL.NEB NEB SCH ×4 (02:03→19:30)
[2017-04-12] MEDS: IPRATROPIUM NEB FS 0.5 MG/2.5 ML AMPUL.NEB NEB SCH ×4 (02:03→19:30)
[2017-04-12] MEDS: METOCLOPRAMIDE HCL 10 MG/10 ML UDC GT SCH ×4 (05:18→23:49)
[2017-04-12] MEDS: RENAL NOVASOURCE 1,000 ML BOTTLE GT PRN (05:18)
[2017-04-12] MEDS: PROSOURCE / PROSTAT (PYXIS) 30 ML UDC GT SCH ×4 (05:18→23:49)
[2017-04-12] MEDS: ESOMEPRAZOLE MAG TRIHYDRATE 20 MG CAPSULE.DR GT SCH (05:18)
[2017-04-12] MEDS: BLOOD SUGAR DIAGNOSTIC 1 EACH STRIP IN SCH ×4 (05:18→23:49)
[2017-04-12] MEDS: INSULIN REGULAR, HUMAN 100 UNIT/ML 3 ML VIAL SQ PRN ×4 (05:19→23:50)
[2017-04-12 06:02] VITALS: BP 147/67
[2017-04-12 08:01] VITALS: BP 170/74
[2017-04-12] MEDS: hydrALAZINE HCL 25 MG TABLET GT SCH ×2 (09:50→17:51)
[2017-04-12] MEDS: LACTOBACILLUS RHAMNOSUS GG 1 EACH CAP.SPRINK GT SCH ×2 (09:50→17:51)
[2017-04-12] MEDS: METOPROLOL TARTRATE 50 MG TABLET GT SCH ×2 (09:50→21:50)
[2017-04-12] MEDS: POLYVINYL ALCOHOL 15 ML BOTTLE EACHEYE SCH ×2 (09:50→21:44)
[2017-04-12] MEDS: HYDROCODONE/APAP 5/325MG 1 EACH TABLET GT SCH ×2 (09:51→21:00)
[2017-04-12] MEDS: ASCORBIC ACID 500 MG TABLET GT SCH (09:51)
[2017-04-12] MEDS: VIT B CMPLX 3/FA/VIT C/BIOTIN 1 TAB TABLET PO SCH (09:51)
[2017-04-12] MEDS: HEPARIN SODIUM, PORCINE 5000 UNITS/1 ML VIAL SQ SCH ×2 (09:51→21:48)
[2017-04-12] MEDS: INSULIN GLARGINE, 100 UNIT/ML CARTRIDGE SQ SCH ×2 (09:52→21:50)
[2017-04-12] MEDS: NYSTATIN TOP POWDER 15 GM BOTTLE TP SCH ×4 (11:00→21:49)
[2017-04-12] MEDS: CADEXOMER IODINE 40 GM TUBE TP SCH ×4 (11:00→21:49)
[2017-04-12] MEDS: HYDROGEN PEROXIDE 480 ML BOTTLE TP SCH ×2 (11:00→21:49)
[2017-04-12] MEDS: POVIDONE-IODINE OINT 28.4 GM TUBE TP SCH ×2 (11:00→21:49)
[2017-04-12] MEDS: Z GUARD REMEDY 4 OZ OINT TP SCH ×4 (11:00→21:49)
[2017-04-12] MEDS: DAKINS QUARTER STRENGTH (0.125%) 480 ML BOTTLE TOP SCH ×2 (11:00→21:49)
[2017-04-12] MEDS: CLONIDINE HCL 0.2 MG TABLET GT PRN ×2 (11:55→23:52)
[2017-04-12 12:00] VITALS: BP 180/72
[2017-04-12 18:00] VITALS: BP 157/75
[2017-04-12 19:55] VITALS: BP 143/79
[2017-04-13] VITALS: BP 162/76
[2017-04-13] MEDS: ALBUTEROL FS 2.5 MG/3 ML VIAL.NEB NEB SCH ×4 (02:05→19:37)
[2017-04-13] MEDS: IPRATROPIUM NEB FS 0.5 MG/2.5 ML AMPUL.NEB NEB SCH ×4 (02:05→19:37)
[2017-04-13] MEDS: ESOMEPRAZOLE MAG TRIHYDRATE 20 MG CAPSULE.DR GT SCH (05:20)
[2017-04-13] MEDS: PROSOURCE / PROSTAT (PYXIS) 30 ML UDC GT SCH ×4 (05:21→23:17)
[2017-04-13] MEDS: BLOOD SUGAR DIAGNOSTIC 1 EACH STRIP IN SCH ×4 (05:22→23:17)
[2017-04-13] MEDS: METOCLOPRAMIDE HCL 10 MG/10 ML UDC GT SCH ×4 (05:22→23:17)
[2017-04-13] MEDS: INSULIN REGULAR, HUMAN 100 UNIT/ML 3 ML VIAL SQ PRN ×2 (05:23→23:17)
[2017-04-13] MEDS: RENAL NOVASOURCE 1,000 ML BOTTLE GT PRN (05:23)
[2017-04-13] MEDS: CLONIDINE HCL 0.2 MG TABLET GT PRN (05:30)
[2017-04-13 06:00] VITALS: BP 164/72
[2017-04-13 07:58] VITALS: BP 143/68
[2017-04-13] MEDS: POLYVINYL ALCOHOL 15 ML BOTTLE EACHEYE SCH ×2 (08:03→20:34)
[2017-04-13] MEDS: LACTOBACILLUS RHAMNOSUS GG 1 EACH CAP.SPRINK GT SCH ×2 (08:04→16:11)
[2017-04-13] MEDS: hydrALAZINE HCL 25 MG TABLET GT SCH ×2 (08:04→16:11)
[2017-04-13] MEDS: ASCORBIC ACID 500 MG TABLET GT SCH (08:04)
[2017-04-13] MEDS: VIT B CMPLX 3/FA/VIT C/BIOTIN 1 TAB TABLET PO SCH (08:04)
[2017-04-13] MEDS: METOPROLOL TARTRATE 50 MG TABLET GT SCH ×2 (08:04→21:17)
[2017-04-13] MEDS: HEPARIN SODIUM, PORCINE 5000 UNITS/1 ML VIAL SQ SCH ×2 (09:00→20:35)
[2017-04-13] MEDS: INSULIN GLARGINE, 100 UNIT/ML CARTRIDGE SQ SCH ×2 (09:00→21:17)
--- NOTE | 2017-04-13 11:00 | NUR ---
Seen by Dr. Olivo. Notified her that Dr. Irwin did I & D on the right foot lesion. She examined right foot, lesion smaller, no bleeding, no signs of infection. Pt was also seen by Dr. rIwin earlier today.
[2017-04-13] MEDS: HYDROCODONE/APAP 5/325MG 1 EACH TABLET GT SCH ×2 (15:00→20:34)
[2017-04-13] MEDS: POVIDONE-IODINE OINT 28.4 GM TUBE TP SCH ×2 (15:30→21:16)
[2017-04-13] MEDS: NYSTATIN TOP POWDER 15 GM BOTTLE TP SCH ×4 (15:30→21:16)
[2017-04-13] MEDS: Z GUARD REMEDY 4 OZ OINT TP SCH ×4 (15:30→21:17)
[2017-04-13] MEDS: CADEXOMER IODINE 40 GM TUBE TP SCH ×4 (15:30→21:16)
[2017-04-13] MEDS: DAKINS QUARTER STRENGTH (0.125%) 480 ML BOTTLE TOP SCH ×2 (15:30→21:16)
[2017-04-13] MEDS: HYDROGEN PEROXIDE 480 ML BOTTLE TP SCH ×2 (15:30→21:16)
[2017-04-13 17:38] VITALS: BP 143/68
[2017-04-13 20:26] VITALS: BP 150/72
[2017-04-14 00:27] VITALS: BP 150/68
[2017-04-14] MEDS: IPRATROPIUM NEB FS 0.5 MG/2.5 ML AMPUL.NEB NEB SCH ×4 (01:22→20:27)
[2017-04-14] MEDS: ALBUTEROL FS 2.5 MG/3 ML VIAL.NEB NEB SCH ×4 (01:23→20:27)
[2017-04-14] MEDS: ESOMEPRAZOLE MAG TRIHYDRATE 20 MG CAPSULE.DR GT SCH (06:00)
[2017-04-14] MEDS: INSULIN REGULAR, HUMAN 100 UNIT/ML 3 ML VIAL SQ PRN ×3 (06:01→23:18)
[2017-04-14] MEDS: PROSOURCE / PROSTAT (PYXIS) 30 ML UDC GT SCH ×4 (06:01→23:17)
[2017-04-14] MEDS: METOCLOPRAMIDE HCL 10 MG/10 ML UDC GT SCH ×4 (06:01→23:17)
[2017-04-14] MEDS: BLOOD SUGAR DIAGNOSTIC 1 EACH STRIP IN SCH ×4 (06:01→23:17)
[2017-04-14 06:17] VITALS: BP 144/77
[2017-04-14] MEDS: RENAL NOVASOURCE 1,000 ML BOTTLE GT PRN (06:25)
[2017-04-14] MEDS: POLYVINYL ALCOHOL 15 ML BOTTLE EACHEYE SCH ×2 (08:00→20:39)
[2017-04-14] MEDS: LACTOBACILLUS RHAMNOSUS GG 1 EACH CAP.SPRINK GT SCH ×2 (08:03→16:27)
[2017-04-14] MEDS: ASCORBIC ACID 500 MG TABLET GT SCH (08:04)
[2017-04-14 08:07] VITALS: BP 159/74
[2017-04-14] MEDS: NYSTATIN TOP POWDER 15 GM BOTTLE TP SCH ×4 (08:16→21:18)
[2017-04-14] MEDS: Z GUARD REMEDY 4 OZ OINT TP SCH ×4 (08:17→21:18)
[2017-04-14] MEDS: CADEXOMER IODINE 40 GM TUBE TP SCH ×4 (08:18→21:18)
[2017-04-14] MEDS: HYDROGEN PEROXIDE 480 ML BOTTLE TP SCH ×2 (08:19→21:18)
[2017-04-14] MEDS: INSULIN GLARGINE, 100 UNIT/ML CARTRIDGE SQ SCH ×2 (08:26→21:22)
[2017-04-14] MEDS: HEPARIN SODIUM, PORCINE 5000 UNITS/1 ML VIAL SQ SCH ×2 (08:27→20:40)
--- NOTE | 2017-04-14 08:30 | NUR ---
Patient left for dialysis and the transportation came and picked the pt.
[2017-04-14] MEDS: VIT B CMPLX 3/FA/VIT C/BIOTIN 1 TAB TABLET PO SCH (08:35)
[2017-04-14] MEDS: HYDROCODONE/APAP 5/325MG 1 EACH TABLET GT SCH ×2 (08:36→20:39)
[2017-04-14] MEDS: DAKINS QUARTER STRENGTH (0.125%) 480 ML BOTTLE TOP SCH ×2 (08:37→21:18)
[2017-04-14] MEDS: POVIDONE-IODINE OINT 28.4 GM TUBE TP SCH ×2 (08:41→21:18)
--- NOTE | 2017-04-14 08:46 | NUR ---
RN Note Patient left the unit in stable condition via gurney accompanied by ambulance staff going to dialysis.
--- NOTE | 2017-04-14 12:00 | NUR ---
Medications due at 12 are non-administered as the patient is currently not on the unit.
--- NOTE | 2017-04-14 14:10 | NUR ---
RN NOTES Patient came back from renal dialysis center and pt is awake and no new orders noted.
--- NOTE | 2017-04-14 14:50 | NUR ---
Patient is back to the unit.
[2017-04-14] MEDS: hydrALAZINE HCL 25 MG TABLET GT SCH (16:29)
[2017-04-14 18:00] VITALS: BP 159/74
[2017-04-14 19:58] VITALS: BP 141/67
[2017-04-14] MEDS: METOPROLOL TARTRATE 50 MG TABLET GT SCH (21:19)
[2017-04-15] VITALS: BP 136/68
[2017-04-15] MEDS: IPRATROPIUM NEB FS 0.5 MG/2.5 ML AMPUL.NEB NEB SCH ×4 (00:46→19:43)
[2017-04-15] MEDS: ALBUTEROL FS 2.5 MG/3 ML VIAL.NEB NEB SCH ×4 (00:46→19:43)
[2017-04-15] MEDS: METOCLOPRAMIDE HCL 10 MG/10 ML UDC GT SCH ×4 (06:12→23:56)
[2017-04-15] MEDS: BLOOD SUGAR DIAGNOSTIC 1 EACH STRIP IN SCH ×4 (06:12→23:56)
[2017-04-15] MEDS: ESOMEPRAZOLE MAG TRIHYDRATE 20 MG CAPSULE.DR GT SCH (06:12)
[2017-04-15] MEDS: PROSOURCE / PROSTAT (PYXIS) 30 ML UDC GT SCH ×4 (06:12→23:56)
[2017-04-15] MEDS: INSULIN REGULAR, HUMAN 100 UNIT/ML 3 ML VIAL SQ PRN ×4 (06:13→23:57)
[2017-04-15 06:51] VITALS: BP 144/68
[2017-04-15 07:57] VITALS: BP 121/73
[2017-04-15] MEDS: hydrALAZINE HCL 25 MG TABLET GT SCH ×2 (09:00→17:00)
[2017-04-15] MEDS: LACTOBACILLUS RHAMNOSUS GG 1 EACH CAP.SPRINK GT SCH ×2 (09:34→17:50)
[2017-04-15] MEDS: ASCORBIC ACID 500 MG TABLET GT SCH (09:35)
[2017-04-15] MEDS: METOPROLOL TARTRATE 50 MG TABLET GT SCH ×2 (09:35→21:08)
[2017-04-15] MEDS: VIT B CMPLX 3/FA/VIT C/BIOTIN 1 TAB TABLET PO SCH (09:40)
[2017-04-15] MEDS: HYDROCODONE/APAP 5/325MG 1 EACH TABLET GT SCH ×2 (09:40→20:28)
[2017-04-15] MEDS: HEPARIN SODIUM, PORCINE 5000 UNITS/1 ML VIAL SQ SCH ×2 (09:43→20:28)
[2017-04-15] MEDS: INSULIN GLARGINE, 100 UNIT/ML CARTRIDGE SQ SCH ×2 (09:48→21:08)
[2017-04-15] MEDS: POLYVINYL ALCOHOL 15 ML BOTTLE EACHEYE SCH ×2 (09:48→20:27)
[2017-04-15] MEDS: NYSTATIN TOP POWDER 15 GM BOTTLE TP SCH ×4 (10:00→21:07)
[2017-04-15] MEDS: DAKINS QUARTER STRENGTH (0.125%) 480 ML BOTTLE TOP SCH ×2 (10:00→21:06)
[2017-04-15] MEDS: HYDROGEN PEROXIDE 480 ML BOTTLE TP SCH ×2 (10:00→21:06)
[2017-04-15] MEDS: POVIDONE-IODINE OINT 28.4 GM TUBE TP SCH ×2 (10:00→21:06)
[2017-04-15] MEDS: CADEXOMER IODINE 40 GM TUBE TP SCH ×4 (10:00→21:06)
[2017-04-15] MEDS: Z GUARD REMEDY 4 OZ OINT TP SCH ×4 (10:00→21:07)
[2017-04-15 12:00] VITALS: BP 118/74
[2017-04-15 18:00] VITALS: BP 118/74
[2017-04-16 00:16] VITALS: BP 136/70
[2017-04-16] MEDS: ALBUTEROL FS 2.5 MG/3 ML VIAL.NEB NEB SCH ×4 (01:23→19:24)
[2017-04-16] MEDS: IPRATROPIUM NEB FS 0.5 MG/2.5 ML AMPUL.NEB NEB SCH ×4 (01:23→19:24)
[2017-04-16 06:04] VITALS: BP 128/74
[2017-04-16] MEDS: BLOOD SUGAR DIAGNOSTIC 1 EACH STRIP IN SCH ×4 (06:07→23:36)
[2017-04-16] MEDS: PROSOURCE / PROSTAT (PYXIS) 30 ML UDC GT SCH ×4 (06:07→23:36)
[2017-04-16] MEDS: ESOMEPRAZOLE MAG TRIHYDRATE 20 MG CAPSULE.DR GT SCH (06:07)
[2017-04-16] MEDS: METOCLOPRAMIDE HCL 10 MG/10 ML UDC GT SCH ×4 (06:07→23:36)
[2017-04-16] MEDS: INSULIN REGULAR, HUMAN 100 UNIT/ML 3 ML VIAL SQ PRN ×3 (06:08→23:37)
[2017-04-16] MEDS: RENAL NOVASOURCE 1,000 ML BOTTLE GT PRN (06:08)
[2017-04-16 07:34] VITALS: BP 140/81
[2017-04-16 07:39] VITALS: BP 136/62
[2017-04-16] MEDS: POLYVINYL ALCOHOL 15 ML BOTTLE EACHEYE SCH ×2 (07:59→21:57)
[2017-04-16] MEDS: LACTOBACILLUS RHAMNOSUS GG 1 EACH CAP.SPRINK GT SCH ×2 (07:59→16:45)
[2017-04-16] MEDS: ASCORBIC ACID 500 MG TABLET GT SCH (08:00)
[2017-04-16] MEDS: VIT B CMPLX 3/FA/VIT C/BIOTIN 1 TAB TABLET PO SCH (08:01)
[2017-04-16] MEDS: INSULIN GLARGINE, 100 UNIT/ML CARTRIDGE SQ SCH ×2 (08:06→22:10)
[2017-04-16] MEDS: HEPARIN SODIUM, PORCINE 5000 UNITS/1 ML VIAL SQ SCH ×2 (08:06→21:58)
--- NOTE | 2017-04-16 08:45 | NUR ---
PATIENT IS OFF THE FLOOR FOR HD. PATIENT PICKED UP BY AMBULANCE AND 2 sales process manager. PATIENT LEFT IN A STABLE CONDITION
[2017-04-16] MEDS: HYDROGEN PEROXIDE 480 ML BOTTLE TP SCH ×2 (09:00→21:59)
--- NOTE | 2017-04-16 09:00 | NUR ---
NORCO AND WOUND TREATMENT WILL BE COMPLETED WHEN PATIENT IS BACK TO THE FLOOR
--- NOTE | 2017-04-16 12:50 | NUR ---
Patient is not yet returned to unit from HD. Will administered 1300 meds when patient returned to unit
[2017-04-16] MEDS: HYDROCODONE/APAP 5/325MG 1 EACH TABLET GT SCH ×2 (14:30→21:58)
[2017-04-16 14:39] VITALS: BP 154/67
--- NOTE | 2017-04-16 14:41 | NUR ---
Patient returned to unit at 1425 from HD. Patient arrived via gurney and 2 department chair. Vital signs are stable. Administered 0900 and 1300 meds. will proceed with Trach care and dressing change
[2017-04-16] MEDS: DAKINS QUARTER STRENGTH (0.125%) 480 ML BOTTLE TOP SCH ×2 (14:58→21:58)
[2017-04-16] MEDS: CADEXOMER IODINE 40 GM TUBE TP SCH ×4 (14:58→21:59)
[2017-04-16] MEDS: POVIDONE-IODINE OINT 28.4 GM TUBE TP SCH ×2 (14:58→21:58)
[2017-04-16] MEDS: NYSTATIN TOP POWDER 15 GM BOTTLE TP SCH ×4 (14:58→21:59)
[2017-04-16] MEDS: Z GUARD REMEDY 4 OZ OINT TP SCH ×4 (14:58→21:59)
[2017-04-16] MEDS: hydrALAZINE HCL 25 MG TABLET GT SCH (16:45)
[2017-04-16 18:24] VITALS: BP 148/68
[2017-04-16] MEDS: METOPROLOL TARTRATE 50 MG TABLET GT SCH (22:00)
[2017-04-17] VITALS (7 sets, daily range): BP systolic 114–170; BP diastolic 62–80
[2017-04-17] MEDS: ALBUTEROL FS 2.5 MG/3 ML VIAL.NEB NEB SCH ×4 (01:26→20:00)
[2017-04-17] MEDS: IPRATROPIUM NEB FS 0.5 MG/2.5 ML AMPUL.NEB NEB SCH ×4 (01:26→20:00)
[2017-04-17] MEDS: PROSOURCE / PROSTAT (PYXIS) 30 ML UDC GT SCH ×4 (06:14→23:52)
[2017-04-17] MEDS: METOCLOPRAMIDE HCL 10 MG/10 ML UDC GT SCH ×4 (06:14→23:52)
[2017-04-17] MEDS: ESOMEPRAZOLE MAG TRIHYDRATE 20 MG CAPSULE.DR GT SCH (06:14)
[2017-04-17] MEDS: BLOOD SUGAR DIAGNOSTIC 1 EACH STRIP IN SCH ×4 (06:50→23:52)
[2017-04-17] MEDS: INSULIN REGULAR, HUMAN 100 UNIT/ML 3 ML VIAL SQ PRN ×4 (06:53→23:54)
[2017-04-17] MEDS: RENAL NOVASOURCE 1,000 ML BOTTLE GT PRN (07:15)
--- NOTE | 2017-04-17 08:00 | NUR ---
Informed by charge nurse that staff have been unable to get in contact with resident's boyfriend to obtain consent for wound treatments. Called John ([phone]) but he did not answer and psychiatric social worker left a message instructing him to call the unit. Per charge nurse, resident's boyfriend has not called which is unusual.
[2017-04-17] MEDS: LACTOBACILLUS RHAMNOSUS GG 1 EACH CAP.SPRINK GT SCH ×2 (08:44→17:00)
[2017-04-17] MEDS: hydrALAZINE HCL 25 MG TABLET GT SCH ×2 (08:44→17:00)
[2017-04-17] MEDS: POLYVINYL ALCOHOL 15 ML BOTTLE EACHEYE SCH ×2 (08:44→21:42)
[2017-04-17] MEDS: VIT B CMPLX 3/FA/VIT C/BIOTIN 1 TAB TABLET PO SCH (08:45)
[2017-04-17] MEDS: ASCORBIC ACID 500 MG TABLET GT SCH (08:45)
[2017-04-17] MEDS: METOPROLOL TARTRATE 50 MG TABLET GT SCH ×2 (08:45→21:43)
[2017-04-17] MEDS: HEPARIN SODIUM, PORCINE 5000 UNITS/1 ML VIAL SQ SCH ×2 (08:48→21:43)
[2017-04-17] MEDS: INSULIN GLARGINE, 100 UNIT/ML CARTRIDGE SQ SCH ×2 (09:09→21:44)
--- NOTE | 2017-04-17 09:36 | NUR ---
Unable to contact family member to obtain consent for R foot debridement. Dr. Fowler signed consent and Dr. Morejon agreed with the procedure, 2 physician consented.
[2017-04-17] MEDS ORDERED: LIDOCAINE 1% INJ 50 ML MDV IJ ONE (10:00)
[2017-04-17] MEDS: CLONIDINE HCL 0.2 MG TABLET GT PRN ×2 (13:32→23:54)
--- NOTE | 2017-04-17 13:54 | NUR ---
Dr. Fowler, pole truck driver debrided R foot obtain moderate amount of pus. New treatment order to squeeze pus in the R foot then paint with Betadine cover with DD x 14 days.
[2017-04-17] MEDS: HYDROCODONE/APAP 5/325MG 1 EACH TABLET GT SCH ×2 (14:22→21:58)
[2017-04-17] MEDS: POVIDONE-IODINE OINT 28.4 GM TUBE TP SCH ×2 (15:00→21:59)
[2017-04-17] MEDS: HYDROGEN PEROXIDE 480 ML BOTTLE TP SCH ×2 (15:00→21:59)
[2017-04-17] MEDS: CADEXOMER IODINE 40 GM TUBE TP SCH ×4 (15:00→21:59)
[2017-04-17] MEDS: DAKINS QUARTER STRENGTH (0.125%) 480 ML BOTTLE TOP SCH ×2 (15:00→21:59)
[2017-04-17] MEDS: NYSTATIN TOP POWDER 15 GM BOTTLE TP SCH ×2 (15:00)
[2017-04-17] MEDS: Z GUARD REMEDY 4 OZ OINT TP SCH ×4 (15:00→21:59)
[2017-04-18 00:16] VITALS: BP 167/74
[2017-04-18] MEDS: ALBUTEROL FS 2.5 MG/3 ML VIAL.NEB NEB SCH ×5 (01:30→20:16)
[2017-04-18] MEDS: IPRATROPIUM NEB FS 0.5 MG/2.5 ML AMPUL.NEB NEB SCH ×5 (01:30→20:16)
[2017-04-18] MEDS: METOCLOPRAMIDE HCL 10 MG/10 ML UDC GT SCH ×4 (06:17→23:30)
[2017-04-18] MEDS: PROSOURCE / PROSTAT (PYXIS) 30 ML UDC GT SCH ×4 (06:17→23:30)
[2017-04-18] MEDS: ESOMEPRAZOLE MAG TRIHYDRATE 20 MG CAPSULE.DR GT SCH (06:17)
[2017-04-18 06:28] VITALS: BP 168/68
[2017-04-18] MEDS: CLONIDINE HCL 0.2 MG TABLET GT PRN (06:28)
[2017-04-18] MEDS: BLOOD SUGAR DIAGNOSTIC 1 EACH STRIP IN SCH ×4 (06:42→23:31)
[2017-04-18] MEDS: INSULIN REGULAR, HUMAN 100 UNIT/ML 3 ML VIAL SQ PRN ×3 (06:43→23:31)
[2017-04-18 07:33] VITALS: BP 128/46
[2017-04-18] MEDS: ASCORBIC ACID 500 MG TABLET GT SCH (08:12)
[2017-04-18] MEDS: VIT B CMPLX 3/FA/VIT C/BIOTIN 1 TAB TABLET PO SCH (08:12)
[2017-04-18] MEDS: LACTOBACILLUS RHAMNOSUS GG 1 EACH CAP.SPRINK GT SCH ×2 (08:12→17:30)
[2017-04-18] MEDS: POLYVINYL ALCOHOL 15 ML BOTTLE EACHEYE SCH ×2 (08:12→20:57)
[2017-04-18] MEDS: HEPARIN SODIUM, PORCINE 5000 UNITS/1 ML VIAL SQ SCH ×2 (08:14→20:58)
[2017-04-18] MEDS: INSULIN GLARGINE, 100 UNIT/ML CARTRIDGE SQ SCH ×2 (08:15→21:50)
[2017-04-18] MEDS: HYDROCODONE/APAP 5/325MG 1 EACH TABLET GT SCH ×2 (14:10→21:59)
--- NOTE | 2017-04-18 14:30 | NUR ---
Resident returned back from dialysis in stable condition, in no s/s of distress, AV shunt in the R FA with dressing, no s/s of bleeding.
[2017-04-18] MEDS: DAKINS QUARTER STRENGTH (0.125%) 480 ML BOTTLE TOP SCH ×2 (14:40→21:59)
[2017-04-18] MEDS: Z GUARD REMEDY 4 OZ OINT TP SCH ×4 (14:40→22:00)
[2017-04-18] MEDS: POVIDONE-IODINE OINT 28.4 GM TUBE TP SCH ×2 (14:40→21:59)
[2017-04-18] MEDS: CADEXOMER IODINE 40 GM TUBE TP SCH ×4 (14:40→21:59)
[2017-04-18] MEDS: HYDROGEN PEROXIDE 480 ML BOTTLE TP SCH ×2 (14:40→21:59)
[2017-04-18] MEDS: RENAL NOVASOURCE 1,000 ML BOTTLE GT PRN (16:26)
[2017-04-18] MEDS: hydrALAZINE HCL 25 MG TABLET GT SCH (17:27)
[2017-04-18 18:05] VITALS: BP 144/72
[2017-04-18] MEDS: METOPROLOL TARTRATE 50 MG TABLET GT SCH (21:49)
[2017-04-18 22:14] VITALS: BP 175/85
[2017-04-19 00:36] VITALS: BP 149/72
[2017-04-19] MEDS: ALBUTEROL FS 2.5 MG/3 ML VIAL.NEB NEB SCH ×4 (01:04→20:08)
[2017-04-19] MEDS: IPRATROPIUM NEB FS 0.5 MG/2.5 ML AMPUL.NEB NEB SCH ×4 (01:04→20:08)
[2017-04-19] MEDS: PROSOURCE / PROSTAT (PYXIS) 30 ML UDC GT SCH ×3 (06:16→17:04)
[2017-04-19] MEDS: METOCLOPRAMIDE HCL 10 MG/10 ML UDC GT SCH ×3 (06:16→17:04)
[2017-04-19] MEDS: ESOMEPRAZOLE MAG TRIHYDRATE 20 MG CAPSULE.DR GT SCH (06:16)
[2017-04-19] MEDS: CLONIDINE HCL 0.2 MG TABLET GT PRN ×2 (06:17→17:09)
[2017-04-19 06:20] VITALS: BP 176/77
[2017-04-19] MEDS: BLOOD SUGAR DIAGNOSTIC 1 EACH STRIP IN SCH ×3 (06:27→17:05)
[2017-04-19] MEDS: INSULIN REGULAR, HUMAN 100 UNIT/ML 3 ML VIAL SQ PRN ×3 (06:29→18:13)
[2017-04-19] MEDS: ASCORBIC ACID 500 MG TABLET GT SCH (08:03)
[2017-04-19] MEDS: LACTOBACILLUS RHAMNOSUS GG 1 EACH CAP.SPRINK GT SCH ×2 (08:03→17:03)
[2017-04-19] MEDS: hydrALAZINE HCL 25 MG TABLET GT SCH ×2 (08:03→17:03)
[2017-04-19] MEDS: METOPROLOL TARTRATE 50 MG TABLET GT SCH ×2 (08:03→21:26)
[2017-04-19] MEDS: POLYVINYL ALCOHOL 15 ML BOTTLE EACHEYE SCH ×2 (08:03→20:16)
[2017-04-19] MEDS: VIT B CMPLX 3/FA/VIT C/BIOTIN 1 TAB TABLET PO SCH (08:04)
[2017-04-19] MEDS: HEPARIN SODIUM, PORCINE 5000 UNITS/1 ML VIAL SQ SCH ×2 (08:06→20:21)
[2017-04-19 08:38] VITALS: BP 173/66
[2017-04-19] MEDS: INSULIN GLARGINE, 100 UNIT/ML CARTRIDGE SQ SCH ×2 (09:00→21:27)
[2017-04-19] MEDS: HYDROCODONE/APAP 5/325MG 1 EACH TABLET GT SCH ×2 (12:00→20:21)
[2017-04-19] MEDS: DAKINS QUARTER STRENGTH (0.125%) 480 ML BOTTLE TOP SCH ×2 (12:30→20:21)
[2017-04-19] MEDS: HYDROGEN PEROXIDE 480 ML BOTTLE TP SCH ×2 (12:30→20:22)
[2017-04-19] MEDS: Z GUARD REMEDY 4 OZ OINT TP SCH ×4 (12:30→20:33)
[2017-04-19] MEDS: CADEXOMER IODINE 40 GM TUBE TP SCH ×4 (12:30→20:22)
[2017-04-19] MEDS: POVIDONE-IODINE OINT 28.4 GM TUBE TP SCH ×2 (12:30→20:22)
[2017-04-19 14:25] VITALS: BP 175/68
--- NOTE | 2017-04-19 16:19 | NUR ---
Resident's John Woodall, visited. Notified John that staff has been contacting him and leaving messages since last week to get consent for debridement of patient's R foot. According to Mr. John Woodall he did not received any call or messages. Contact number from the patient's facesheet is different from John's current phone number. John gave his new number , he said that he has been working long hours that's why he doesn't also get a chance to call the nursing station for updates. Mr. John Woodall signed consent for R foot debridement.
[2017-04-19 19:16] VITALS: BP 183/69
[2017-04-19 19:31] VITALS: BP 166/79
[2017-04-20] MEDS: METOCLOPRAMIDE HCL 10 MG/10 ML UDC GT SCH ×4 (00:23→18:38)
[2017-04-20] MEDS: PROSOURCE / PROSTAT (PYXIS) 30 ML UDC GT SCH ×4 (00:23→18:37)
[2017-04-20] MEDS: BLOOD SUGAR DIAGNOSTIC 1 EACH STRIP IN SCH ×4 (00:23→18:38)
[2017-04-20] MEDS: INSULIN REGULAR, HUMAN 100 UNIT/ML 3 ML VIAL SQ PRN ×4 (00:25→18:40)
[2017-04-20 00:28] VITALS: BP 136/67
[2017-04-20] MEDS: IPRATROPIUM NEB FS 0.5 MG/2.5 ML AMPUL.NEB NEB SCH ×4 (02:12→20:04)
[2017-04-20] MEDS: ALBUTEROL FS 2.5 MG/3 ML VIAL.NEB NEB SCH ×4 (02:12→20:04)
[2017-04-20] MEDS: ESOMEPRAZOLE MAG TRIHYDRATE 20 MG CAPSULE.DR GT SCH (05:48)
[2017-04-20 06:12] VITALS: BP 141/72
[2017-04-20] MEDS: POLYVINYL ALCOHOL 15 ML BOTTLE EACHEYE SCH ×2 (08:20→20:10)
[2017-04-20] MEDS: hydrALAZINE HCL 25 MG TABLET GT SCH ×2 (08:20→17:00)
[2017-04-20] MEDS: LACTOBACILLUS RHAMNOSUS GG 1 EACH CAP.SPRINK GT SCH ×2 (08:21→17:00)
[2017-04-20] MEDS: METOPROLOL TARTRATE 50 MG TABLET GT SCH ×2 (08:21→21:46)
[2017-04-20] MEDS: HYDROCODONE/APAP 5/325MG 1 EACH TABLET GT SCH ×2 (08:23→20:11)
[2017-04-20] MEDS: ASCORBIC ACID 500 MG TABLET GT SCH (08:23)
[2017-04-20] MEDS: VIT B CMPLX 3/FA/VIT C/BIOTIN 1 TAB TABLET PO SCH (08:24)
[2017-04-20] MEDS: HEPARIN SODIUM, PORCINE 5000 UNITS/1 ML VIAL SQ SCH ×2 (08:25→20:14)
[2017-04-20] MEDS: INSULIN GLARGINE, 100 UNIT/ML CARTRIDGE SQ SCH ×2 (08:27→21:48)
[2017-04-20] MEDS: POVIDONE-IODINE OINT 28.4 GM TUBE TP SCH ×2 (08:28→20:14)
[2017-04-20] MEDS: DAKINS QUARTER STRENGTH (0.125%) 480 ML BOTTLE TOP SCH ×2 (08:28→20:14)
[2017-04-20] MEDS: CADEXOMER IODINE 40 GM TUBE TP SCH ×4 (08:28→20:15)
[2017-04-20] MEDS: HYDROGEN PEROXIDE 480 ML BOTTLE TP SCH ×2 (08:28→20:15)
[2017-04-20] MEDS: Z GUARD REMEDY 4 OZ OINT TP SCH ×4 (08:29→20:15)
[2017-04-20 18:47] VITALS: BP 162/69
[2017-04-20 19:53] VITALS: BP 132/74
[2017-04-20] MEDS ORDERED: HYDROGEL DRESSING 90 GM TUBE TP PRN (20:00)
[2017-04-20] MEDS: HYDROGEL DRESSING 90 GM TUBE TP SCH (20:15)
[2017-04-21 00:38] VITALS: BP 146/72
[2017-04-21] MEDS: PROSOURCE / PROSTAT (PYXIS) 30 ML UDC GT SCH ×4 (00:40→17:02)
[2017-04-21] MEDS: BLOOD SUGAR DIAGNOSTIC 1 EACH STRIP IN SCH ×4 (00:40→17:02)
[2017-04-21] MEDS: METOCLOPRAMIDE HCL 10 MG/10 ML UDC GT SCH ×4 (00:40→17:02)
[2017-04-21] MEDS: INSULIN REGULAR, HUMAN 100 UNIT/ML 3 ML VIAL SQ PRN ×3 (00:41→14:10)
[2017-04-21] MEDS: ALBUTEROL FS 2.5 MG/3 ML VIAL.NEB NEB SCH ×4 (01:29→19:34)
[2017-04-21] MEDS: IPRATROPIUM NEB FS 0.5 MG/2.5 ML AMPUL.NEB NEB SCH ×4 (01:29→19:34)
[2017-04-21] MEDS: ESOMEPRAZOLE MAG TRIHYDRATE 20 MG CAPSULE.DR GT SCH (05:20)
[2017-04-21 06:07] VITALS: BP 144/68
[2017-04-21 07:54] VITALS: BP 173/68
[2017-04-21] MEDS: POLYVINYL ALCOHOL 15 ML BOTTLE EACHEYE SCH ×2 (08:08→20:08)
[2017-04-21] MEDS: LACTOBACILLUS RHAMNOSUS GG 1 EACH CAP.SPRINK GT SCH ×2 (08:08→16:55)
[2017-04-21] MEDS: ASCORBIC ACID 500 MG TABLET GT SCH (08:09)
[2017-04-21] MEDS: VIT B CMPLX 3/FA/VIT C/BIOTIN 1 TAB TABLET PO SCH (08:09)
[2017-04-21] MEDS: HEPARIN SODIUM, PORCINE 5000 UNITS/1 ML VIAL SQ SCH ×2 (08:10→20:10)
[2017-04-21] MEDS: INSULIN GLARGINE, 100 UNIT/ML CARTRIDGE SQ SCH ×2 (08:18→22:09)
[2017-04-21] MEDS: HYDROCODONE/APAP 5/325MG 1 EACH TABLET GT SCH ×2 (14:30→20:09)
[2017-04-21] MEDS: CADEXOMER IODINE 40 GM TUBE TP SCH ×4 (15:00→20:12)
[2017-04-21] MEDS: DAKINS QUARTER STRENGTH (0.125%) 480 ML BOTTLE TOP SCH ×2 (15:00→20:12)
[2017-04-21] MEDS: POVIDONE-IODINE OINT 28.4 GM TUBE TP SCH ×2 (15:00→20:12)
[2017-04-21] MEDS: Z GUARD REMEDY 4 OZ OINT TP SCH ×4 (15:00→20:12)
[2017-04-21] MEDS: HYDROGEL DRESSING 90 GM TUBE TP SCH ×2 (15:00→20:12)
[2017-04-21] MEDS: HYDROGEN PEROXIDE 480 ML BOTTLE TP SCH ×2 (15:00→20:12)
[2017-04-21] MEDS: hydrALAZINE HCL 25 MG TABLET GT SCH (16:55)
[2017-04-21] MEDS: CLONIDINE HCL 0.2 MG TABLET GT PRN (17:02)
[2017-04-21 18:42] VITALS: BP 166/76
[2017-04-21 20:22] VITALS: BP 148/94
[2017-04-21] MEDS: METOPROLOL TARTRATE 50 MG TABLET GT SCH (22:08)
[2017-04-22] VITALS (7 sets, daily range): BP systolic 148–163; BP diastolic 62–78
[2017-04-22] MEDS: PROSOURCE / PROSTAT (PYXIS) 30 ML UDC GT SCH ×4 (00:13→18:00)
[2017-04-22] MEDS: METOCLOPRAMIDE HCL 10 MG/10 ML UDC GT SCH ×4 (00:13→18:00)
[2017-04-22] MEDS: BLOOD SUGAR DIAGNOSTIC 1 EACH STRIP IN SCH ×4 (00:13→18:00)
[2017-04-22] MEDS: INSULIN REGULAR, HUMAN 100 UNIT/ML 3 ML VIAL SQ PRN ×4 (00:15→18:06)
[2017-04-22] MEDS: IPRATROPIUM NEB FS 0.5 MG/2.5 ML AMPUL.NEB NEB SCH ×4 (00:19→20:05)
[2017-04-22] MEDS: ALBUTEROL FS 2.5 MG/3 ML VIAL.NEB NEB SCH ×4 (00:19→20:05)
[2017-04-22] MEDS: RENAL NOVASOURCE 1,000 ML BOTTLE GT PRN (03:22)
[2017-04-22] MEDS: ESOMEPRAZOLE MAG TRIHYDRATE 20 MG CAPSULE.DR GT SCH (05:19)
[2017-04-22] MEDS: POLYVINYL ALCOHOL 15 ML BOTTLE EACHEYE SCH ×2 (09:14→21:57)
[2017-04-22] MEDS: hydrALAZINE HCL 25 MG TABLET GT SCH ×2 (09:15→17:53)
[2017-04-22] MEDS: METOPROLOL TARTRATE 50 MG TABLET GT SCH ×2 (09:15→21:59)
[2017-04-22] MEDS: ASCORBIC ACID 500 MG TABLET GT SCH (09:16)
[2017-04-22] MEDS: HEPARIN SODIUM, PORCINE 5000 UNITS/1 ML VIAL SQ SCH ×2 (09:16→21:58)
[2017-04-22] MEDS: INSULIN GLARGINE, 100 UNIT/ML CARTRIDGE SQ SCH ×2 (09:17→22:24)
[2017-04-22] MEDS: VIT B CMPLX 3/FA/VIT C/BIOTIN 1 TAB TABLET PO SCH (09:22)
[2017-04-22] MEDS: LACTOBACILLUS RHAMNOSUS GG 1 EACH CAP.SPRINK GT SCH ×2 (09:22→17:54)
[2017-04-22] MEDS: HYDROCODONE/APAP 5/325MG 1 EACH TABLET GT SCH ×2 (14:25→21:57)
[2017-04-22] MEDS: HYDROGEL DRESSING 90 GM TUBE TP SCH ×2 (15:00→21:58)
[2017-04-22] MEDS: CADEXOMER IODINE 40 GM TUBE TP SCH ×4 (15:00→21:58)
[2017-04-22] MEDS: DAKINS QUARTER STRENGTH (0.125%) 480 ML BOTTLE TOP SCH ×2 (15:00→21:58)
[2017-04-22] MEDS: POVIDONE-IODINE OINT 28.4 GM TUBE TP SCH ×2 (15:00→21:58)
[2017-04-22] MEDS: HYDROGEN PEROXIDE 480 ML BOTTLE TP SCH ×2 (15:00→21:58)
[2017-04-22] MEDS: Z GUARD REMEDY 4 OZ OINT TP SCH ×4 (15:00→21:59)
[2017-04-22] MEDS: NYSTATIN TOP POWDER 15 GM BOTTLE TP SCH (21:58)
[2017-04-23] MEDS: PROSOURCE / PROSTAT (PYXIS) 30 ML UDC GT SCH ×4 (00:03→18:06)
[2017-04-23] MEDS: BLOOD SUGAR DIAGNOSTIC 1 EACH STRIP IN SCH ×4 (00:03→18:06)
[2017-04-23] MEDS: METOCLOPRAMIDE HCL 10 MG/10 ML UDC GT SCH ×4 (00:03→18:06)
[2017-04-23] MEDS: INSULIN REGULAR, HUMAN 100 UNIT/ML 3 ML VIAL SQ PRN ×3 (00:05→18:05)
[2017-04-23] MEDS: CLONIDINE HCL 0.2 MG TABLET GT PRN (00:06)
[2017-04-23 00:11] VITALS: BP 169/74
[2017-04-23] MEDS: ALBUTEROL FS 2.5 MG/3 ML VIAL.NEB NEB SCH ×4 (01:39→19:30)
[2017-04-23] MEDS: IPRATROPIUM NEB FS 0.5 MG/2.5 ML AMPUL.NEB NEB SCH ×4 (01:39→19:30)
[2017-04-23] MEDS: ESOMEPRAZOLE MAG TRIHYDRATE 20 MG CAPSULE.DR GT SCH (05:37)
[2017-04-23] MEDS: RENAL NOVASOURCE 1,000 ML BOTTLE GT PRN (06:29)
[2017-04-23 06:39] VITALS: BP 123/62
[2017-04-23 07:30] VITALS: BP 161/68
[2017-04-23] MEDS: LACTOBACILLUS RHAMNOSUS GG 1 EACH CAP.SPRINK GT SCH ×2 (08:26→17:40)
[2017-04-23] MEDS: ASCORBIC ACID 500 MG TABLET GT SCH (08:26)
[2017-04-23] MEDS: POLYVINYL ALCOHOL 15 ML BOTTLE EACHEYE SCH ×2 (08:26→21:25)
[2017-04-23] MEDS: VIT B CMPLX 3/FA/VIT C/BIOTIN 1 TAB TABLET PO SCH (08:26)
[2017-04-23] MEDS: HEPARIN SODIUM, PORCINE 5000 UNITS/1 ML VIAL SQ SCH ×2 (08:28→21:26)
[2017-04-23] MEDS: INSULIN GLARGINE, 100 UNIT/ML CARTRIDGE SQ SCH ×2 (08:28→21:28)
[2017-04-23 14:02] VITALS: BP 154/76
[2017-04-23] MEDS: HYDROCODONE/APAP 5/325MG 1 EACH TABLET GT SCH ×2 (16:09→21:26)
[2017-04-23] MEDS: DAKINS QUARTER STRENGTH (0.125%) 480 ML BOTTLE TOP SCH ×2 (16:40→21:26)
[2017-04-23] MEDS: Z GUARD REMEDY 4 OZ OINT TP SCH ×4 (16:40→21:27)
[2017-04-23] MEDS: POVIDONE-IODINE OINT 28.4 GM TUBE TP SCH ×2 (16:40→21:26)
[2017-04-23] MEDS: CADEXOMER IODINE 40 GM TUBE TP SCH ×4 (16:40→21:27)
[2017-04-23] MEDS: HYDROGEL DRESSING 90 GM TUBE TP SCH ×2 (16:40→21:27)
[2017-04-23] MEDS: NYSTATIN TOP POWDER 15 GM BOTTLE TP SCH ×3 (16:40→21:27)
[2017-04-23] MEDS: HYDROGEN PEROXIDE 480 ML BOTTLE TP SCH ×2 (16:40→21:27)
[2017-04-23] MEDS: hydrALAZINE HCL 25 MG TABLET GT SCH (17:40)
[2017-04-23 18:29] VITALS: BP 122/66
[2017-04-23 19:39] VITALS: BP 144/80
[2017-04-23] MEDS: METOPROLOL TARTRATE 50 MG TABLET GT SCH (21:28)
[2017-04-24] MEDS: BLOOD SUGAR DIAGNOSTIC 1 EACH STRIP IN SCH ×5 (00:03→23:46)
[2017-04-24] MEDS: PROSOURCE / PROSTAT (PYXIS) 30 ML UDC GT SCH ×5 (00:03→23:46)
[2017-04-24] MEDS: CLONIDINE HCL 0.2 MG TABLET GT PRN ×3 (00:03→12:54)
[2017-04-24] MEDS: METOCLOPRAMIDE HCL 10 MG/10 ML UDC GT SCH ×5 (00:03→23:46)
[2017-04-24] MEDS: INSULIN REGULAR, HUMAN 100 UNIT/ML 3 ML VIAL SQ PRN ×5 (00:05→23:47)
[2017-04-24 00:20] VITALS: BP 175/83
[2017-04-24] MEDS: IPRATROPIUM NEB FS 0.5 MG/2.5 ML AMPUL.NEB NEB SCH ×4 (02:03→19:34)
[2017-04-24] MEDS: ALBUTEROL FS 2.5 MG/3 ML VIAL.NEB NEB SCH ×4 (02:03→19:34)
[2017-04-24] MEDS: ESOMEPRAZOLE MAG TRIHYDRATE 20 MG CAPSULE.DR GT SCH (05:48)
[2017-04-24 06:13] VITALS: BP 167/72
[2017-04-24] MEDS: RENAL NOVASOURCE 1,000 ML BOTTLE GT PRN (06:15)
[2017-04-24 08:00] VITALS: BP 194/86
[2017-04-24] MEDS: POLYVINYL ALCOHOL 15 ML BOTTLE EACHEYE SCH ×2 (08:20→21:52)
[2017-04-24] MEDS: hydrALAZINE HCL 25 MG TABLET GT SCH ×2 (08:22→17:19)
[2017-04-24] MEDS: METOPROLOL TARTRATE 50 MG TABLET GT SCH ×2 (08:23→21:54)
[2017-04-24] MEDS: LACTOBACILLUS RHAMNOSUS GG 1 EACH CAP.SPRINK GT SCH ×2 (08:23→17:23)
[2017-04-24] MEDS: VIT B CMPLX 3/FA/VIT C/BIOTIN 1 TAB TABLET PO SCH (08:24)
[2017-04-24] MEDS: ASCORBIC ACID 500 MG TABLET GT SCH (08:24)
[2017-04-24] MEDS: HEPARIN SODIUM, PORCINE 5000 UNITS/1 ML VIAL SQ SCH ×2 (08:25→21:53)
[2017-04-24] MEDS: INSULIN GLARGINE, 100 UNIT/ML CARTRIDGE SQ SCH ×2 (08:26→21:55)
[2017-04-24 13:13] VITALS: BP 177/74
--- NOTE | 2017-04-24 14:27 | NUR ---
IDT meeting held. Resident's boyfriend John is unable to attend. Dr. Morejon and the interdisciplinary team reviewed the current plan of care in detail. Current orders as well as treatments and medications were reviewed. Resident is stable and no new orders were given. Resident has no significant weight change.
[2017-04-24] MEDS: HYDROCODONE/APAP 5/325MG 1 EACH TABLET GT SCH ×2 (14:29→21:53)
[2017-04-24] MEDS: DAKINS QUARTER STRENGTH (0.125%) 480 ML BOTTLE TOP SCH ×2 (15:00→21:53)
[2017-04-24] MEDS: HYDROGEN PEROXIDE 480 ML BOTTLE TP SCH ×2 (15:00→21:54)
[2017-04-24] MEDS: CADEXOMER IODINE 40 GM TUBE TP SCH ×4 (15:00→21:54)
[2017-04-24] MEDS: HYDROGEL DRESSING 90 GM TUBE TP SCH ×2 (15:00→21:53)
[2017-04-24] MEDS: POVIDONE-IODINE OINT 28.4 GM TUBE TP SCH (15:00)
[2017-04-24] MEDS: Z GUARD REMEDY 4 OZ OINT TP SCH ×4 (15:00→21:54)
[2017-04-24] MEDS: NYSTATIN TOP POWDER 15 GM BOTTLE TP SCH ×4 (15:00→21:54)
[2017-04-24 18:33] VITALS: BP 154/67
[2017-04-24 19:42] VITALS: BP 156/65
[2017-04-25 00:26] VITALS: BP 153/72
[2017-04-25] MEDS: IPRATROPIUM NEB FS 0.5 MG/2.5 ML AMPUL.NEB NEB SCH ×4 (01:20→19:41)
[2017-04-25] MEDS: ALBUTEROL FS 2.5 MG/3 ML VIAL.NEB NEB SCH ×4 (01:20→19:41)
[2017-04-25] MEDS: PROSOURCE / PROSTAT (PYXIS) 30 ML UDC GT SCH ×3 (06:19→17:03)
[2017-04-25] MEDS: ESOMEPRAZOLE MAG TRIHYDRATE 20 MG CAPSULE.DR GT SCH (06:19)
[2017-04-25 06:20] VITALS: BP 151/66
[2017-04-25] MEDS: METOCLOPRAMIDE HCL 10 MG/10 ML UDC GT SCH ×3 (06:20→17:03)
[2017-04-25] MEDS: BLOOD SUGAR DIAGNOSTIC 1 EACH STRIP IN SCH ×3 (06:27→17:47)
[2017-04-25] MEDS: INSULIN REGULAR, HUMAN 100 UNIT/ML 3 ML VIAL SQ PRN ×2 (06:28→17:47)
[2017-04-25] MEDS: RENAL NOVASOURCE 1,000 ML BOTTLE GT PRN (06:38)
[2017-04-25 07:45] VITALS: BP 164/73
[2017-04-25] MEDS: POLYVINYL ALCOHOL 15 ML BOTTLE EACHEYE SCH ×2 (08:23→20:09)
[2017-04-25] MEDS: VIT B CMPLX 3/FA/VIT C/BIOTIN 1 TAB TABLET PO SCH (08:24)
[2017-04-25] MEDS: ASCORBIC ACID 500 MG TABLET GT SCH (08:24)
[2017-04-25] MEDS: HEPARIN SODIUM, PORCINE 5000 UNITS/1 ML VIAL SQ SCH ×2 (08:24→20:12)
[2017-04-25] MEDS: LACTOBACILLUS RHAMNOSUS GG 1 EACH CAP.SPRINK GT SCH ×2 (08:24→17:03)
[2017-04-25] MEDS: INSULIN GLARGINE, 100 UNIT/ML CARTRIDGE SQ SCH ×2 (08:24→22:18)
[2017-04-25 14:25] VITALS: BP 143/68
[2017-04-25] MEDS: HYDROCODONE/APAP 5/325MG 1 EACH TABLET GT SCH ×2 (14:30→20:10)
[2017-04-25] MEDS: HYDROGEN PEROXIDE 480 ML BOTTLE TP SCH ×2 (15:00→20:13)
[2017-04-25] MEDS: CADEXOMER IODINE 40 GM TUBE TP SCH ×4 (15:00→20:13)
[2017-04-25] MEDS: HYDROGEL DRESSING 90 GM TUBE TP SCH ×2 (15:00→20:13)
[2017-04-25] MEDS: Z GUARD REMEDY 4 OZ OINT TP SCH ×4 (15:00→20:13)
[2017-04-25] MEDS: DAKINS QUARTER STRENGTH (0.125%) 480 ML BOTTLE TOP SCH ×2 (15:00→20:13)
[2017-04-25] MEDS: NYSTATIN TOP POWDER 15 GM BOTTLE TP SCH ×2 (15:00→20:13)
[2017-04-25] MEDS: hydrALAZINE HCL 25 MG TABLET GT SCH (17:03)
[2017-04-25 18:00] VITALS: BP 142/68
[2017-04-25 19:41] VITALS: BP 126/58
[2017-04-25] MEDS: METOPROLOL TARTRATE 50 MG TABLET GT SCH (22:17)
[2017-04-26 00:31] VITALS: BP 143/62
[2017-04-26] MEDS: PROSOURCE / PROSTAT (PYXIS) 30 ML UDC GT SCH ×5 (00:46→23:37)
[2017-04-26] MEDS: METOCLOPRAMIDE HCL 10 MG/10 ML UDC GT SCH ×5 (00:46→23:37)
[2017-04-26] MEDS: BLOOD SUGAR DIAGNOSTIC 1 EACH STRIP IN SCH ×5 (00:46→23:37)
[2017-04-26] MEDS: INSULIN REGULAR, HUMAN 100 UNIT/ML 3 ML VIAL SQ PRN ×5 (00:47→23:38)
[2017-04-26] MEDS: ALBUTEROL FS 2.5 MG/3 ML VIAL.NEB NEB SCH ×4 (01:21→19:45)
[2017-04-26] MEDS: IPRATROPIUM NEB FS 0.5 MG/2.5 ML AMPUL.NEB NEB SCH ×4 (01:21→19:45)
[2017-04-26] MEDS: ESOMEPRAZOLE MAG TRIHYDRATE 20 MG CAPSULE.DR GT SCH (05:31)
[2017-04-26 06:06] VITALS: BP 131/55
[2017-04-26 08:00] VITALS: BP 166/73
[2017-04-26] MEDS: POLYVINYL ALCOHOL 15 ML BOTTLE EACHEYE SCH ×2 (09:22→20:19)
[2017-04-26] MEDS: ASCORBIC ACID 500 MG TABLET GT SCH (09:26)
[2017-04-26] MEDS: METOPROLOL TARTRATE 50 MG TABLET GT SCH ×2 (09:26→21:56)
[2017-04-26] MEDS: HYDROCODONE/APAP 5/325MG 1 EACH TABLET GT SCH ×2 (09:26→20:19)
[2017-04-26] MEDS: LACTOBACILLUS RHAMNOSUS GG 1 EACH CAP.SPRINK GT SCH ×2 (09:26→17:35)
[2017-04-26] MEDS: VIT B CMPLX 3/FA/VIT C/BIOTIN 1 TAB TABLET PO SCH (09:26)
[2017-04-26] MEDS: hydrALAZINE HCL 25 MG TABLET GT SCH ×2 (09:26→17:35)
[2017-04-26] MEDS: HEPARIN SODIUM, PORCINE 5000 UNITS/1 ML VIAL SQ SCH ×2 (09:27→20:21)
[2017-04-26] MEDS: INSULIN GLARGINE, 100 UNIT/ML CARTRIDGE SQ SCH ×2 (09:28→21:56)
[2017-04-26] MEDS: DAKINS QUARTER STRENGTH (0.125%) 480 ML BOTTLE TOP SCH ×2 (09:31→20:21)
[2017-04-26] MEDS: HYDROGEN PEROXIDE 480 ML BOTTLE TP SCH ×2 (09:32→20:21)
[2017-04-26] MEDS: NYSTATIN TOP POWDER 15 GM BOTTLE TP SCH ×2 (09:32→20:22)
[2017-04-26] MEDS: CADEXOMER IODINE 40 GM TUBE TP SCH ×4 (09:32→20:21)
[2017-04-26] MEDS: HYDROGEL DRESSING 90 GM TUBE TP SCH ×2 (09:32→20:21)
[2017-04-26] MEDS: Z GUARD REMEDY 4 OZ OINT TP SCH ×4 (09:32→20:22)
[2017-04-26 14:54] VITALS: BP 155/70
[2017-04-26 18:07] VITALS: BP 156/78
[2017-04-26 19:59] VITALS: BP 156/78
[2017-04-27] VITALS (7 sets, daily range): BP systolic 159–185; BP diastolic 70–80
[2017-04-27] MEDS: CLONIDINE HCL 0.2 MG TABLET GT PRN (00:15)
--- NOTE | 2017-04-27 00:16 | NUR ---
PT WAS GIVEN CLONIDINE 0.2 DUE TO ELEVATED B/P OF 179/71 , CONTINUE TO MONITOR PTS B/P....
[2017-04-27] MEDS: RENAL NOVASOURCE 1,000 ML BOTTLE GT PRN (00:23)
[2017-04-27] MEDS: ALBUTEROL FS 2.5 MG/3 ML VIAL.NEB NEB SCH ×4 (02:05→20:11)
[2017-04-27] MEDS: IPRATROPIUM NEB FS 0.5 MG/2.5 ML AMPUL.NEB NEB SCH ×4 (02:05→20:11)
[2017-04-27] MEDS: PROSOURCE / PROSTAT (PYXIS) 30 ML UDC GT SCH ×4 (05:41→23:50)
[2017-04-27] MEDS: BLOOD SUGAR DIAGNOSTIC 1 EACH STRIP IN SCH ×4 (05:41→23:59)
[2017-04-27] MEDS: METOCLOPRAMIDE HCL 10 MG/10 ML UDC GT SCH ×4 (05:41→23:50)
[2017-04-27] MEDS: ESOMEPRAZOLE MAG TRIHYDRATE 20 MG CAPSULE.DR GT SCH (05:41)
[2017-04-27] MEDS: INSULIN REGULAR, HUMAN 100 UNIT/ML 3 ML VIAL SQ PRN ×4 (05:42→23:51)
[2017-04-27] MEDS: POLYVINYL ALCOHOL 15 ML BOTTLE EACHEYE SCH ×2 (08:45→20:08)
[2017-04-27] MEDS: hydrALAZINE HCL 25 MG TABLET GT SCH ×2 (08:45→17:00)
--- NOTE | 2017-04-27 08:45 | NUR ---
Social Service Section of [facility] (3rd quarter) completed. Resident is non-communicative. Her boyfriend, John is involved in her care and visits at least 1x/week. 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 Resident is on dialysis 3x/week on Tuesdays, and Saturdays. She was seen by the Granite Fabricator Dr. Fowler on 04/22/[address] Nuñez on 09/02/2015 for her dental cleaning. Senior Inspector visit is pending.
[2017-04-27] MEDS: METOPROLOL TARTRATE 50 MG TABLET GT SCH ×2 (08:46→22:00)
[2017-04-27] MEDS: LACTOBACILLUS RHAMNOSUS GG 1 EACH CAP.SPRINK GT SCH ×2 (08:46→17:00)
[2017-04-27] MEDS: ASCORBIC ACID 500 MG TABLET GT SCH (08:47)
[2017-04-27] MEDS: VIT B CMPLX 3/FA/VIT C/BIOTIN 1 TAB TABLET PO SCH (08:47)
[2017-04-27] MEDS: HEPARIN SODIUM, PORCINE 5000 UNITS/1 ML VIAL SQ SCH ×2 (08:48→20:12)
[2017-04-27] MEDS: INSULIN GLARGINE, 100 UNIT/ML CARTRIDGE SQ SCH ×2 (08:56→22:00)
[2017-04-27] MEDS: NYSTATIN TOP POWDER 15 GM BOTTLE TP SCH ×2 (09:00→20:13)
[2017-04-27] MEDS: Z GUARD REMEDY 4 OZ OINT TP SCH ×4 (09:00→20:14)
[2017-04-27] MEDS: CADEXOMER IODINE 40 GM TUBE TP SCH ×4 (09:00→20:13)
[2017-04-27] MEDS: HYDROGEL DRESSING 90 GM TUBE TP SCH ×2 (09:00→20:13)
[2017-04-27] MEDS: HYDROGEN PEROXIDE 480 ML BOTTLE TP SCH ×2 (09:00→20:13)
[2017-04-27] MEDS: DAKINS QUARTER STRENGTH (0.125%) 480 ML BOTTLE TOP SCH ×2 (09:00→20:13)
[2017-04-27] MEDS: HYDROCODONE/APAP 5/325MG 1 EACH TABLET GT SCH ×2 (12:30→20:09)
[2017-04-28 00:06] VITALS: BP 175/79
--- NOTE | 2017-04-28 00:35 | NUR ---
NURSES NOTES: PTS B/P WAS MONITORED AND GUY Q 6HRS, @ 0000, PTS B/P IS 175/79, B/P PRN MEDS CLONIDINE 0.2 MG IS GIVEN, GUY B/P IN AN HOUR AND CONTINUE TO MONITOR PTS BP. Addendum: 04/28/17 at 0110 by YASMIN HOLLY LVN PTS BP WAS GUY AFTER AN HR, 168/73, RELATE RESULT TO [facility] NURSE AND CONTINUE TO MONITOR PTS BP...
[2017-04-28] MEDS: IPRATROPIUM NEB FS 0.5 MG/2.5 ML AMPUL.NEB NEB SCH ×4 (01:30→19:33)
[2017-04-28] MEDS: ALBUTEROL FS 2.5 MG/3 ML VIAL.NEB NEB SCH ×4 (01:30→19:33)
[2017-04-28] MEDS: PROSOURCE / PROSTAT (PYXIS) 30 ML UDC GT SCH ×3 (05:17→18:28)
[2017-04-28] MEDS: BLOOD SUGAR DIAGNOSTIC 1 EACH STRIP IN SCH ×3 (05:17→18:29)
[2017-04-28] MEDS: METOCLOPRAMIDE HCL 10 MG/10 ML UDC GT SCH ×3 (05:17→18:28)
[2017-04-28] MEDS: ESOMEPRAZOLE MAG TRIHYDRATE 20 MG CAPSULE.DR GT SCH (05:17)
[2017-04-28] MEDS: INSULIN REGULAR, HUMAN 100 UNIT/ML 3 ML VIAL SQ PRN ×2 (05:18→18:30)
[2017-04-28 06:01] VITALS: BP 157/71
[2017-04-28 07:38] VITALS: BP 176/76
[2017-04-28] MEDS: POLYVINYL ALCOHOL 15 ML BOTTLE EACHEYE SCH ×2 (08:48→21:15)
[2017-04-28] MEDS: ASCORBIC ACID 500 MG TABLET GT SCH (08:48)
[2017-04-28] MEDS: VIT B CMPLX 3/FA/VIT C/BIOTIN 1 TAB TABLET PO SCH (08:48)
[2017-04-28] MEDS: LACTOBACILLUS RHAMNOSUS GG 1 EACH CAP.SPRINK GT SCH ×2 (08:48→17:00)
[2017-04-28] MEDS: HEPARIN SODIUM, PORCINE 5000 UNITS/1 ML VIAL SQ SCH ×2 (08:49→20:23)
[2017-04-28] MEDS: INSULIN GLARGINE, 100 UNIT/ML CARTRIDGE SQ SCH ×2 (08:50→22:15)
[2017-04-28] MEDS: HYDROCODONE/APAP 5/325MG 1 EACH TABLET GT SCH ×2 (15:00→20:22)
[2017-04-28] MEDS: CADEXOMER IODINE 40 GM TUBE TP SCH ×3 (15:00→20:23)
[2017-04-28] MEDS: Z GUARD REMEDY 4 OZ OINT TP SCH ×3 (15:00→20:23)
[2017-04-28] MEDS: NYSTATIN TOP POWDER 15 GM BOTTLE TP SCH ×2 (15:00→20:23)
[2017-04-28] MEDS: HYDROGEN PEROXIDE 480 ML BOTTLE TP SCH ×2 (15:00→20:23)
[2017-04-28] MEDS: HYDROGEL DRESSING 90 GM TUBE TP SCH (15:00)
[2017-04-28] MEDS: DAKINS QUARTER STRENGTH (0.125%) 480 ML BOTTLE TOP SCH (15:00)
[2017-04-28 16:40] VITALS: BP 176/76
[2017-04-28] MEDS: hydrALAZINE HCL 25 MG TABLET GT SCH (17:00)
[2017-04-28 18:31] VITALS: BP 184/80
[2017-04-28] MEDS: CLONIDINE HCL 0.2 MG TABLET GT PRN (19:09)
--- NOTE | 2017-04-28 19:10 | NUR ---
catapres 0.2 mg. given for SBP > 160 SBP is 182/71 HR- 76. Pt. awake and responsive to tactile stimuli. no untoward manifestations noted. monitor pt. and endorsed to next shift.
[2017-04-28] MEDS: METOPROLOL TARTRATE 50 MG TABLET GT SCH (22:13)
[2017-04-29] VITALS (8 sets, daily range): BP systolic 157–191; BP diastolic 65–98
[2017-04-29] MEDS: CLONIDINE HCL 0.2 MG TABLET GT PRN ×4 (00:10→17:41)
--- NOTE | 2017-04-29 00:10 | NUR ---
nurses notes: PTS BP IS MONITORED Q 6 HRS, @ 0000 PTS B/P IS 170/70 HR 67, PRN MEDS CLONIDINE 0.2 WAS GIVEN, CONTINUE TO MONITOR PTS BP AND GUY IN AN HOUR.
[2017-04-29] MEDS: PROSOURCE / PROSTAT (PYXIS) 30 ML UDC GT SCH ×5 (00:14→23:52)
[2017-04-29] MEDS: METOCLOPRAMIDE HCL 10 MG/10 ML UDC GT SCH ×5 (00:14→23:52)
[2017-04-29] MEDS: BLOOD SUGAR DIAGNOSTIC 1 EACH STRIP IN SCH ×5 (00:14→23:52)
[2017-04-29] MEDS: INSULIN REGULAR, HUMAN 100 UNIT/ML 3 ML VIAL SQ PRN ×6 (00:16→23:53)
[2017-04-29] MEDS: IPRATROPIUM NEB FS 0.5 MG/2.5 ML AMPUL.NEB NEB SCH ×4 (00:46→19:42)
[2017-04-29] MEDS: ALBUTEROL FS 2.5 MG/3 ML VIAL.NEB NEB SCH ×4 (00:46→19:42)
--- NOTE | 2017-04-29 01:00 | NUR ---
PTS BP WAS GUY, IT WENT UP TO 179/74 HR 71, CHARGE NURSE INFORMED,AND CONTINUE TO MONITOR PTS ELEVATED BP.
[2017-04-29] MEDS: RENAL NOVASOURCE 1,000 ML BOTTLE GT PRN (03:41)
[2017-04-29] MEDS: ESOMEPRAZOLE MAG TRIHYDRATE 20 MG CAPSULE.DR GT SCH (05:19)
--- NOTE | 2017-04-29 05:32 | NUR ---
PTS BP IS MONITORED Q 6HRS, @0530 PTS BP IS 169/65, HR OF 69, PRN MEDS CLONIDINE 0.2 IS GIVEN FOR ELEVATED B/P GUY IN AN HR AND CONTINUE TO MONITOR PTS B/P, INDORSED TO MORNING SHIFT.
[2017-04-29] MEDS: LACTOBACILLUS RHAMNOSUS GG 1 EACH CAP.SPRINK GT SCH ×2 (08:21→17:40)
[2017-04-29] MEDS: hydrALAZINE HCL 25 MG TABLET GT SCH ×2 (08:21→17:40)
[2017-04-29] MEDS: POLYVINYL ALCOHOL 15 ML BOTTLE EACHEYE SCH ×2 (08:21→21:40)
[2017-04-29] MEDS: METOPROLOL TARTRATE 50 MG TABLET GT SCH ×2 (08:22→21:41)
[2017-04-29] MEDS: HYDROCODONE/APAP 5/325MG 1 EACH TABLET GT SCH ×2 (08:23→21:30)
[2017-04-29] MEDS: ASCORBIC ACID 500 MG TABLET GT SCH (08:23)
[2017-04-29] MEDS: VIT B CMPLX 3/FA/VIT C/BIOTIN 1 TAB TABLET PO SCH (08:23)
[2017-04-29] MEDS: HEPARIN SODIUM, PORCINE 5000 UNITS/1 ML VIAL SQ SCH ×2 (08:26→21:40)
[2017-04-29] MEDS: INSULIN GLARGINE, 100 UNIT/ML CARTRIDGE SQ SCH ×2 (08:27→21:43)
[2017-04-29] MEDS: NYSTATIN TOP POWDER 15 GM BOTTLE TP SCH ×2 (09:00→22:00)
[2017-04-29] MEDS: CADEXOMER IODINE 40 GM TUBE TP SCH ×3 (09:30→22:00)
[2017-04-29] MEDS: HYDROGEN PEROXIDE 480 ML BOTTLE TP SCH ×2 (09:30→22:00)
[2017-04-29] MEDS: Z GUARD REMEDY 4 OZ OINT TP SCH ×2 (09:30→22:00)
[2017-04-29] MEDS: ACETAMINOPHEN 650 MG/20 ML UDC- FOR SA PATIENTS ONLY GT PRN (17:41)
[2017-04-30 00:30] VITALS: BP 151/74
[2017-04-30] MEDS: ALBUTEROL FS 2.5 MG/3 ML VIAL.NEB NEB SCH ×4 (00:47→18:59)
[2017-04-30] MEDS: IPRATROPIUM NEB FS 0.5 MG/2.5 ML AMPUL.NEB NEB SCH ×4 (00:47→18:59)
[2017-04-30] MEDS: METOCLOPRAMIDE HCL 10 MG/10 ML UDC GT SCH ×4 (05:42→23:38)
[2017-04-30] MEDS: ESOMEPRAZOLE MAG TRIHYDRATE 20 MG CAPSULE.DR GT SCH (05:42)
[2017-04-30] MEDS: PROSOURCE / PROSTAT (PYXIS) 30 ML UDC GT SCH ×3 (05:42→21:39)
[2017-04-30] MEDS: BLOOD SUGAR DIAGNOSTIC 1 EACH STRIP IN SCH ×4 (05:42→23:38)
[2017-04-30] MEDS: INSULIN REGULAR, HUMAN 100 UNIT/ML 3 ML VIAL SQ PRN ×3 (05:43→23:39)
[2017-04-30] MEDS: RENAL NOVASOURCE 1,000 ML BOTTLE GT PRN (06:24)
[2017-04-30 06:40] VITALS: BP 149/67
[2017-04-30 07:26] VITALS: BP 154/75
[2017-04-30] MEDS: ASCORBIC ACID 500 MG TABLET GT SCH (08:23)
[2017-04-30] MEDS: VIT B CMPLX 3/FA/VIT C/BIOTIN 1 TAB TABLET PO SCH (08:23)
[2017-04-30] MEDS: POLYVINYL ALCOHOL 15 ML BOTTLE EACHEYE SCH ×2 (08:23→21:00)
[2017-04-30] MEDS: LACTOBACILLUS RHAMNOSUS GG 1 EACH CAP.SPRINK GT SCH ×2 (08:23→17:11)
[2017-04-30] MEDS: INSULIN GLARGINE, 100 UNIT/ML CARTRIDGE SQ SCH ×2 (09:00→21:41)
[2017-04-30] MEDS: HEPARIN SODIUM, PORCINE 5000 UNITS/1 ML VIAL SQ SCH ×2 (09:00→21:40)
[2017-04-30] MEDS: HYDROCODONE/APAP 5/325MG 1 EACH TABLET GT SCH ×3 (14:35→23:46)
[2017-04-30] MEDS: CADEXOMER IODINE 40 GM TUBE TP SCH ×2 (15:35)
[2017-04-30] MEDS: HYDROGEN PEROXIDE 480 ML BOTTLE TP SCH (15:35)
[2017-04-30] MEDS: NYSTATIN TOP POWDER 15 GM BOTTLE TP SCH ×2 (15:35)
[2017-04-30] MEDS: Z GUARD REMEDY 4 OZ OINT TP SCH ×2 (15:35)
[2017-04-30] MEDS: HYDROGEL DRESSING 90 GM TUBE TP SCH (15:35)
[2017-04-30] MEDS: DAKINS QUARTER STRENGTH (0.125%) 480 ML BOTTLE TOP SCH (15:35)
[2017-04-30] MEDS ORDERED: PROSTAT (PYXIS) 30 ML UDC GT SCH (17:00)
[2017-04-30] MEDS: hydrALAZINE HCL 25 MG TABLET GT SCH (17:11)
[2017-04-30 18:38] VITALS: BP 155/65
[2017-04-30 20:00] VITALS: BP 158/86
[2017-04-30] MEDS: METOPROLOL TARTRATE 50 MG TABLET GT SCH (21:40)
[2017-05-01 00:20] VITALS: BP 186/77
[2017-05-01] MEDS: HYDROGEL DRESSING 90 GM TUBE TP SCH ×3 (00:20→22:20)
[2017-05-01] MEDS: Z GUARD REMEDY 4 OZ OINT TP SCH ×6 (00:20→22:20)
[2017-05-01] MEDS: HYDROGEN PEROXIDE 480 ML BOTTLE TP SCH ×3 (00:20→22:20)
[2017-05-01] MEDS: CLONIDINE HCL 0.2 MG TABLET GT PRN ×3 (00:20→23:54)
[2017-05-01] MEDS: DAKINS QUARTER STRENGTH (0.125%) 480 ML BOTTLE TOP SCH ×3 (00:20→22:20)
[2017-05-01] MEDS: NYSTATIN TOP POWDER 15 GM BOTTLE TP SCH ×6 (00:20→22:20)
[2017-05-01] MEDS: CADEXOMER IODINE 40 GM TUBE TP SCH ×4 (00:20→22:20)
[2017-05-01] MEDS: IPRATROPIUM NEB FS 0.5 MG/2.5 ML AMPUL.NEB NEB SCH ×4 (01:37→19:48)
[2017-05-01] MEDS: ALBUTEROL FS 2.5 MG/3 ML VIAL.NEB NEB SCH ×4 (01:37→19:48)
[2017-05-01] MEDS ORDERED: PROSOURCE / PROSTAT (PYXIS) 30 ML UDC GT SCH (05:00)
[2017-05-01] MEDS: METOCLOPRAMIDE HCL 10 MG/10 ML UDC GT SCH ×4 (05:40→23:54)
[2017-05-01] MEDS: BLOOD SUGAR DIAGNOSTIC 1 EACH STRIP IN SCH ×4 (05:40→23:54)
[2017-05-01] MEDS: ESOMEPRAZOLE MAG TRIHYDRATE 20 MG CAPSULE.DR GT SCH (05:40)
[2017-05-01] MEDS: INSULIN REGULAR, HUMAN 100 UNIT/ML 3 ML VIAL SQ PRN ×4 (05:42→23:55)
[2017-05-01] MEDS: RENAL NOVASOURCE 1,000 ML BOTTLE GT PRN (05:42)
[2017-05-01] MEDS: PROSOURCE / PROSTAT (PYXIS) 30 ML UDC GT SCH ×5 (05:45→21:39)
[2017-05-01 06:00] VITALS: BP 178/78
[2017-05-01 07:55] VITALS: BP 145/72
[2017-05-01] MEDS: POLYVINYL ALCOHOL 15 ML BOTTLE EACHEYE SCH ×2 (09:19→21:39)
[2017-05-01] MEDS: hydrALAZINE HCL 25 MG TABLET GT SCH ×2 (09:20→17:57)
[2017-05-01] MEDS: ASCORBIC ACID 500 MG TABLET GT SCH (09:21)
[2017-05-01] MEDS: METOPROLOL TARTRATE 50 MG TABLET GT SCH ×2 (09:21→21:40)
[2017-05-01] MEDS: HEPARIN SODIUM, PORCINE 5000 UNITS/1 ML VIAL SQ SCH ×2 (09:22→21:39)
[2017-05-01] MEDS: VIT B CMPLX 3/FA/VIT C/BIOTIN 1 TAB TABLET PO SCH (09:26)
[2017-05-01] MEDS: LACTOBACILLUS RHAMNOSUS GG 1 EACH CAP.SPRINK GT SCH ×2 (09:27→17:57)
[2017-05-01] MEDS: INSULIN GLARGINE, 100 UNIT/ML CARTRIDGE SQ SCH ×2 (09:28→21:40)
[2017-05-01 12:00] VITALS: BP 148/74
[2017-05-01 12:01] VITALS: BP 148/74
[2017-05-01] MEDS: HYDROCODONE/APAP 5/325MG 1 EACH TABLET GT SCH ×2 (13:58→21:39)
[2017-05-01 18:30] VITALS: BP 154/78
[2017-05-02 00:16] VITALS: BP 183/79
[2017-05-02] MEDS: IPRATROPIUM NEB FS 0.5 MG/2.5 ML AMPUL.NEB NEB SCH ×4 (02:02→20:17)
[2017-05-02] MEDS: ALBUTEROL FS 2.5 MG/3 ML VIAL.NEB NEB SCH ×4 (02:02→20:17)
[2017-05-02] MEDS: BLOOD SUGAR DIAGNOSTIC 1 EACH STRIP IN SCH ×3 (05:31→17:40)
[2017-05-02] MEDS: ESOMEPRAZOLE MAG TRIHYDRATE 20 MG CAPSULE.DR GT SCH (05:31)
[2017-05-02] MEDS: METOCLOPRAMIDE HCL 10 MG/10 ML UDC GT SCH ×3 (05:31→17:40)
[2017-05-02] MEDS: PROSOURCE / PROSTAT (PYXIS) 30 ML UDC GT SCH ×5 (05:31→21:00)
[2017-05-02] MEDS: INSULIN REGULAR, HUMAN 100 UNIT/ML 3 ML VIAL SQ PRN ×2 (05:32→17:41)
[2017-05-02] MEDS: RENAL NOVASOURCE 1,000 ML BOTTLE GT PRN (05:42)
[2017-05-02 06:10] VITALS: BP 188/84
[2017-05-02] MEDS: CLONIDINE HCL 0.2 MG TABLET GT PRN ×2 (06:31→14:13)
[2017-05-02 07:26] VITALS: BP 137/47
[2017-05-02] MEDS: LACTOBACILLUS RHAMNOSUS GG 1 EACH CAP.SPRINK GT SCH ×2 (08:02→17:40)
[2017-05-02] MEDS: POLYVINYL ALCOHOL 15 ML BOTTLE EACHEYE SCH ×2 (08:02→21:00)
[2017-05-02] MEDS: VIT B CMPLX 3/FA/VIT C/BIOTIN 1 TAB TABLET PO SCH (08:03)
[2017-05-02] MEDS: HYDROCODONE/APAP 5/325MG 1 EACH TABLET GT SCH ×2 (08:03→21:00)
[2017-05-02] MEDS: ASCORBIC ACID 500 MG TABLET GT SCH (08:03)
[2017-05-02] MEDS: HEPARIN SODIUM, PORCINE 5000 UNITS/1 ML VIAL SQ SCH ×2 (08:04→21:00)
[2017-05-02] MEDS: INSULIN GLARGINE, 100 UNIT/ML CARTRIDGE SQ SCH ×2 (08:12→22:07)
[2017-05-02] MEDS: Z GUARD REMEDY 4 OZ OINT TP SCH ×4 (09:00→21:00)
[2017-05-02] MEDS: CADEXOMER IODINE 40 GM TUBE TP SCH ×3 (09:00→21:00)
[2017-05-02] MEDS: HYDROGEN PEROXIDE 480 ML BOTTLE TP SCH ×2 (09:00→21:00)
[2017-05-02] MEDS: HYDROGEL DRESSING 90 GM TUBE TP SCH ×2 (09:00→21:00)
[2017-05-02] MEDS: DAKINS QUARTER STRENGTH (0.125%) 480 ML BOTTLE TOP SCH ×2 (09:00→21:00)
[2017-05-02] MEDS: NYSTATIN TOP POWDER 15 GM BOTTLE TP SCH ×4 (09:00→21:00)
--- NOTE | 2017-05-02 14:00 | NUR ---
Patient came back from dialysis, per Transporter and RT, Patients' blood pressure went up to systolic of 200 right now. Rechecked blood pressure 187/89. PRN Catapres 0.2 mg via GT given. Patient not in distress, no facial grimacing at this time. Patient closely monitored.
[2017-05-02 16:48] VITALS: BP 148/74
[2017-05-02] MEDS: hydrALAZINE HCL 25 MG TABLET GT SCH (17:39)
[2017-05-02 19:05] VITALS: BP 179/80
[2017-05-02 20:18] VITALS: BP_SYST 157; BP_SYST 161; BP_DIAS 86
[2017-05-02] MEDS: METOPROLOL TARTRATE 50 MG TABLET GT SCH (22:06)
[2017-05-03] VITALS (8 sets, daily range): BP systolic 82–152; BP diastolic 44–81
[2017-05-03] MEDS: BLOOD SUGAR DIAGNOSTIC 1 EACH STRIP IN SCH ×5 (00:57→23:44)
[2017-05-03] MEDS: METOCLOPRAMIDE HCL 10 MG/10 ML UDC GT SCH ×5 (00:57→23:44)
[2017-05-03] MEDS: INSULIN REGULAR, HUMAN 100 UNIT/ML 3 ML VIAL SQ PRN ×5 (00:58→23:45)
[2017-05-03] MEDS: IPRATROPIUM NEB FS 0.5 MG/2.5 ML AMPUL.NEB NEB SCH ×4 (02:22→19:14)
[2017-05-03] MEDS: ALBUTEROL FS 2.5 MG/3 ML VIAL.NEB NEB SCH ×4 (02:22→19:14)
[2017-05-03] MEDS: ESOMEPRAZOLE MAG TRIHYDRATE 20 MG CAPSULE.DR GT SCH (05:48)
[2017-05-03] MEDS: PROSOURCE / PROSTAT (PYXIS) 30 ML UDC GT SCH ×5 (05:48→20:59)
[2017-05-03] MEDS: HYDROGEN PEROXIDE 480 ML BOTTLE TP SCH ×2 (09:00→21:01)
[2017-05-03] MEDS: hydrALAZINE HCL 25 MG TABLET GT SCH ×2 (09:00→16:35)
[2017-05-03] MEDS: ASCORBIC ACID 500 MG TABLET GT SCH (09:00)
[2017-05-03] MEDS: DAKINS QUARTER STRENGTH (0.125%) 480 ML BOTTLE TOP SCH ×2 (09:00→21:00)
[2017-05-03] MEDS: NYSTATIN TOP POWDER 15 GM BOTTLE TP SCH ×4 (09:00→21:01)
[2017-05-03] MEDS: HYDROGEL DRESSING 90 GM TUBE TP SCH ×2 (09:00→21:00)
[2017-05-03] MEDS: INSULIN GLARGINE, 100 UNIT/ML CARTRIDGE SQ SCH ×2 (09:00→21:02)
[2017-05-03] MEDS: VIT B CMPLX 3/FA/VIT C/BIOTIN 1 TAB TABLET PO SCH (09:00)
[2017-05-03] MEDS: METOPROLOL TARTRATE 50 MG TABLET GT SCH ×2 (09:00→21:01)
[2017-05-03] MEDS: Z GUARD REMEDY 4 OZ OINT TP SCH ×4 (09:00→21:01)
[2017-05-03] MEDS: LACTOBACILLUS RHAMNOSUS GG 1 EACH CAP.SPRINK GT SCH ×2 (09:00→16:22)
[2017-05-03] MEDS: POLYVINYL ALCOHOL 15 ML BOTTLE EACHEYE SCH ×2 (09:00→20:59)
[2017-05-03] MEDS: HEPARIN SODIUM, PORCINE 5000 UNITS/1 ML VIAL SQ SCH ×2 (09:00→21:00)
[2017-05-03] MEDS: CADEXOMER IODINE 40 GM TUBE TP SCH ×3 (09:00→21:01)
--- NOTE | 2017-05-03 13:30 | NUR ---
Resident noted with low blood [id number]/40 and elevated temperature of 101.3F.Left message to .waiting to call back.continue to monitor.no SOB no Distress noticed.
--- NOTE | 2017-05-03 13:45 | NUR ---
Noted with low blood pressure of 76/40 mm of hg,elevated the foot end of bed.resident is awake,not in distress,no SOB noticed,relaxed.call made to ,left message to train station server doctor .got new order for to do CBC,BMP,blood cuturex2,sputum culture,C x ray,Normal saline IV bolus x1L ,To start vancomycin pharmacy to dose for 7 days and start zosyn 2.25g IV Q8H x7days.noted and carried out.pharmacy made aware.
--- NOTE | 2017-05-03 13:50 | NUR ---
Unable to insert IV line ,powerhouse operator and made aware.got an order for midline insertion.powerhouse operator made aware.ICU nurse came and check the patient.advised for midline.rechecked blood pressure is 86/46.continue to monitor.
--- NOTE | 2017-05-03 14:10 | NUR ---
Call made to hafsa made aware about the hypotension and elevated temperature.spoke to him regarding the new order for blood draw and c xray ,to start antibiotic and IV fluids after the midline insertion.continue to monitor.
[2017-05-03 14:49] LABS: BASOPHILS % (AUTO) 0.1 % (0.0-2.0); HEMATOCRIT 29 % (33-45); HEMOGLOBIN 9.4 g/dL (11.5-14.8); LYMPHOCYTES % (AUTO) 5.2 % (20.0-44.0); MEAN CORPUSCULAR HEMOGLOBIN 30 PG (26.0-33.0); MEAN CORPUSCULAR HGB CONC 32 g/dl (31.0-36.0); MEAN CORPUSCULAR VOLUME 94 fL (82-100); MONOCYTES # (AUTO) 0.8 /CMM (0.1-1.30); MONOCYTES % (AUTO) 3.9 % (2.0-12.0); NEUTROPHILS # (AUTO) 18.1 /CMM (1.8-8.9); NEUTROPHILS % (AUTO) 90.8 % (43.0-81.0); PLATELET COUNT (AUTO) 137 /CMM (150-450); RDW COEFFICIENT OF VARIATION 17.1 (11.5-15.0); RED BLOOD CELL COUNT(AUTO) 3.12 MIL/uL (4.0-5.2)
--- NOTE | 2017-05-03 15:10 | NUR ---
RN NOTES Received new order from Dr. Olivo to start Vancomycin 1gm iv now, starting dose, then Vancomycin 1gm iv after HD (), random vanco trough 05/05 before 2nd dose, noted and carried out.
[2017-05-03 15:13] LABS: CALCIUM, SERUM 8.8 mg/dL (8.5-10.1); POTASSIUM 4.4 mmol/L (3.5-5.1)
[2017-05-03] MEDS: HYDROCODONE/APAP 5/325MG 1 EACH TABLET GT SCH ×2 (16:00→20:59)
--- NOTE | 2017-05-03 18:30 | NUR ---
RN NOTES Left upper arm midline inserted by PICC line nurse.
[2017-05-03] MEDS ORDERED: VANCOMYCIN 1 GM in IV D5W 250 ML IV PRN (19:00)
[2017-05-03] MEDS ORDERED: VANCOMYCIN 1 GM in IV D5W 250ml IV ONE (19:00)
--- NOTE | 2017-05-03 19:00 | NUR ---
RN NOTES Vancomycin 1gm IV started from Ekit with no A/R noted.
--- NOTE | 2017-05-03 19:00 | NUR ---
RN NOTES Normal saline IV bolus x1L given as ordered. Will continue to monitor.
--- NOTE | 2017-05-04 | NUR ---
RN NOTES Zosyn 2.25g IV started with no A/R noted.
[2017-05-04] MEDS: IPRATROPIUM NEB FS 0.5 MG/2.5 ML AMPUL.NEB NEB SCH ×4 (01:43→19:30)
[2017-05-04] MEDS: ALBUTEROL FS 2.5 MG/3 ML VIAL.NEB NEB SCH ×4 (01:43→19:30)
[2017-05-04 03:32] VITALS: BP 112/58
[2017-05-04] MEDS: METOCLOPRAMIDE HCL 10 MG/10 ML UDC GT SCH ×4 (05:41→23:50)
[2017-05-04] MEDS: PROSOURCE / PROSTAT (PYXIS) 30 ML UDC GT SCH ×5 (05:41→21:20)
[2017-05-04] MEDS: ESOMEPRAZOLE MAG TRIHYDRATE 20 MG CAPSULE.DR GT SCH (05:41)
[2017-05-04] MEDS: BLOOD SUGAR DIAGNOSTIC 1 EACH STRIP IN SCH ×4 (05:57→23:50)
[2017-05-04] MEDS: INSULIN REGULAR, HUMAN 100 UNIT/ML 3 ML VIAL SQ PRN ×4 (05:58→23:51)
--- NOTE | 2017-05-04 06:00 | NUR ---
RN NOTES pt in stable condition. Latest B/P 148/62, T 98.1
[2017-05-04 06:04] VITALS: BP 148/62
[2017-05-04 07:37] VITALS: BP 135/74
[2017-05-04] MEDS: PIPERACILLIN /TAZOBACTAM 2.25 G in IV D5W 50 ML IV SCH ×4 (08:00→16:49)
[2017-05-04] MEDS: HEPARIN SODIUM, PORCINE 5000 UNITS/1 ML VIAL SQ SCH ×2 (09:00→21:20)
[2017-05-04] MEDS: POLYVINYL ALCOHOL 15 ML BOTTLE EACHEYE SCH ×2 (09:47→21:19)
[2017-05-04] MEDS: LACTOBACILLUS RHAMNOSUS GG 1 EACH CAP.SPRINK GT SCH ×2 (09:48→17:24)
[2017-05-04] MEDS: hydrALAZINE HCL 25 MG TABLET GT SCH ×2 (09:48→17:24)
[2017-05-04] MEDS: METOPROLOL TARTRATE 50 MG TABLET GT SCH ×2 (09:48→21:21)
[2017-05-04] MEDS: ASCORBIC ACID 500 MG TABLET GT SCH (09:49)
[2017-05-04] MEDS: VIT B CMPLX 3/FA/VIT C/BIOTIN 1 TAB TABLET PO SCH (09:57)
[2017-05-04] MEDS: INSULIN GLARGINE, 100 UNIT/ML CARTRIDGE SQ SCH ×2 (10:00→21:22)
[2017-05-04] MEDS: HYDROCODONE/APAP 5/325MG 1 EACH TABLET GT SCH ×2 (12:00→21:20)
[2017-05-04] MEDS: CADEXOMER IODINE 40 GM TUBE TP SCH ×3 (13:30→21:20)
[2017-05-04] MEDS: HYDROGEL DRESSING 90 GM TUBE TP SCH ×2 (13:30→21:20)
[2017-05-04] MEDS: DAKINS QUARTER STRENGTH (0.125%) 480 ML BOTTLE TOP SCH ×2 (13:30→21:20)
[2017-05-04] MEDS: HYDROGEN PEROXIDE 480 ML BOTTLE TP SCH ×2 (13:30→21:20)
[2017-05-04] MEDS: Z GUARD REMEDY 4 OZ OINT TP SCH ×4 (13:30→21:21)
[2017-05-04] MEDS: NYSTATIN TOP POWDER 15 GM BOTTLE TP SCH ×4 (13:30→21:21)
[2017-05-04 17:25] VITALS: BP 139/71
[2017-05-04 18:34] VITALS: BP 152/75
[2017-05-04 19:29] VITALS: BP 164/75
[2017-05-04] MEDS: CLONIDINE HCL 0.2 MG TABLET GT PRN (21:23)
[2017-05-05] MEDS: PIPERACILLIN /TAZOBACTAM 2.25 G in IV D5W 50 ML IV SCH ×2 (00:34→08:39)
[2017-05-05 00:35] VITALS: BP 148/60
[2017-05-05] MEDS: IPRATROPIUM NEB FS 0.5 MG/2.5 ML AMPUL.NEB NEB SCH ×4 (01:30→19:10)
[2017-05-05] MEDS: ALBUTEROL FS 2.5 MG/3 ML VIAL.NEB NEB SCH ×4 (01:30→19:10)
[2017-05-05] MEDS: METOCLOPRAMIDE HCL 10 MG/10 ML UDC GT SCH ×3 (05:57→17:49)
[2017-05-05] MEDS: ESOMEPRAZOLE MAG TRIHYDRATE 20 MG CAPSULE.DR GT SCH (05:57)
[2017-05-05] MEDS: BLOOD SUGAR DIAGNOSTIC 1 EACH STRIP IN SCH ×3 (05:57→17:49)
[2017-05-05] MEDS: PROSOURCE / PROSTAT (PYXIS) 30 ML UDC GT SCH ×5 (05:57→21:21)
[2017-05-05] MEDS: INSULIN REGULAR, HUMAN 100 UNIT/ML 3 ML VIAL SQ PRN ×2 (05:58→17:51)
[2017-05-05 06:09] VITALS: BP 150/64
[2017-05-05 07:34] VITALS: BP 174/83
[2017-05-05] MEDS: VIT B CMPLX 3/FA/VIT C/BIOTIN 1 TAB TABLET PO SCH (08:05)
[2017-05-05] MEDS: ASCORBIC ACID 500 MG TABLET GT SCH (08:05)
[2017-05-05] MEDS: LACTOBACILLUS RHAMNOSUS GG 1 EACH CAP.SPRINK GT SCH ×2 (08:05→17:49)
[2017-05-05] MEDS: POLYVINYL ALCOHOL 15 ML BOTTLE EACHEYE SCH ×2 (08:05→21:21)
[2017-05-05] MEDS: HEPARIN SODIUM, PORCINE 5000 UNITS/1 ML VIAL SQ SCH ×2 (08:07→21:21)
[2017-05-05] MEDS: INSULIN GLARGINE, 100 UNIT/ML CARTRIDGE SQ SCH ×2 (08:18→21:23)
--- NOTE | 2017-05-05 12:33 | NUR ---
Sputum culture result showed slight growth of Serratia marcescens. Relayed result to Dr. Olivo. Received order to [facility] Vancomycin, [facility] Zosyn, start pt on Cefepime 1 gm IV q 24 hours for 7 days. Notified
[2017-05-05] MEDS: CEFEPIME 1 GM in IV D5W 50 ML IV SCH (14:00)
[2017-05-05] MEDS: HYDROCODONE/APAP 5/325MG 1 EACH TABLET GT SCH ×2 (14:45→21:21)
[2017-05-05] MEDS: NYSTATIN TOP POWDER 15 GM BOTTLE TP SCH ×4 (15:30→21:22)
[2017-05-05] MEDS: HYDROGEN PEROXIDE 480 ML BOTTLE TP SCH ×2 (15:30→21:22)
[2017-05-05] MEDS: DAKINS QUARTER STRENGTH (0.125%) 480 ML BOTTLE TOP SCH ×2 (15:30→21:21)
[2017-05-05] MEDS: CADEXOMER IODINE 40 GM TUBE TP SCH (15:30)
[2017-05-05] MEDS: HYDROGEL DRESSING 90 GM TUBE TP SCH ×2 (15:30→21:21)
[2017-05-05] MEDS: Z GUARD REMEDY 4 OZ OINT TP SCH ×4 (15:30→21:22)
[2017-05-05] MEDS: hydrALAZINE HCL 25 MG TABLET GT SCH (17:49)
[2017-05-05 17:58] VITALS: BP 171/74
[2017-05-05 18:01] VITALS: BP 171/74
[2017-05-05 20:08] VITALS: BP 168/74
[2017-05-05] MEDS: METOPROLOL TARTRATE 50 MG TABLET GT SCH (21:22)
[2017-05-05] MEDS: CLONIDINE HCL 0.2 MG TABLET GT PRN (21:23)
[2017-05-06] VITALS (7 sets, daily range): BP systolic 148–183; BP diastolic 60–85
[2017-05-06] MEDS: BLOOD SUGAR DIAGNOSTIC 1 EACH STRIP IN SCH ×5 (00:44→23:42)
[2017-05-06] MEDS: INSULIN REGULAR, HUMAN 100 UNIT/ML 3 ML VIAL SQ PRN ×5 (00:44→23:43)
[2017-05-06] MEDS: METOCLOPRAMIDE HCL 10 MG/10 ML UDC GT SCH ×5 (00:44→23:42)
[2017-05-06] MEDS: ALBUTEROL FS 2.5 MG/3 ML VIAL.NEB NEB SCH ×4 (01:46→20:02)
[2017-05-06] MEDS: IPRATROPIUM NEB FS 0.5 MG/2.5 ML AMPUL.NEB NEB SCH ×4 (01:46→20:02)
[2017-05-06] MEDS: PROSOURCE / PROSTAT (PYXIS) 30 ML UDC GT SCH ×5 (05:39→20:40)
[2017-05-06] MEDS: ESOMEPRAZOLE MAG TRIHYDRATE 20 MG CAPSULE.DR GT SCH (05:39)
[2017-05-06 06:34] LABS: BASOPHILS % (AUTO) 0.1 % (0.0-2.0); EOSINOPHILS # (AUTO) 0.1 /CMM (0.0-0.7); EOSINOPHILS % (AUTO) 1.2 % (0.0-6.0); HEMATOCRIT 31 % (33-45); HEMOGLOBIN 10.1 g/dL (11.5-14.8); LYMPHOCYTES % (AUTO) 13.5 % (20.0-44.0); MEAN CORPUSCULAR HEMOGLOBIN 31 PG (26.0-33.0); MEAN CORPUSCULAR HGB CONC 33 g/dl (31.0-36.0); MEAN CORPUSCULAR VOLUME 93 fL (82-100); MONOCYTES # (AUTO) 0.6 /CMM (0.1-1.30); MONOCYTES % (AUTO) 8.8 % (2.0-12.0); NEUTROPHILS # (AUTO) 5.5 /CMM (1.8-8.9); NEUTROPHILS % (AUTO) 76.4 % (43.0-81.0); PLATELET COUNT (AUTO) 136 /CMM (150-450); RED BLOOD CELL COUNT(AUTO) 3.31 MIL/uL (4.0-5.2); WHITE BLOOD COUNT (AUTO) 7.3 K/uL (4.3-11.0)
[2017-05-06] MEDS: POLYVINYL ALCOHOL 15 ML BOTTLE EACHEYE SCH ×2 (09:43→20:39)
[2017-05-06] MEDS: LACTOBACILLUS RHAMNOSUS GG 1 EACH CAP.SPRINK GT SCH ×2 (09:55→17:53)
[2017-05-06] MEDS: hydrALAZINE HCL 25 MG TABLET GT SCH ×2 (09:55→17:53)
[2017-05-06] MEDS: METOPROLOL TARTRATE 50 MG TABLET GT SCH ×2 (09:55→22:21)
[2017-05-06] MEDS: ASCORBIC ACID 500 MG TABLET GT SCH (09:56)
[2017-05-06] MEDS: VIT B CMPLX 3/FA/VIT C/BIOTIN 1 TAB TABLET PO SCH (09:56)
[2017-05-06] MEDS: HEPARIN SODIUM, PORCINE 5000 UNITS/1 ML VIAL SQ SCH ×2 (09:57→20:41)
[2017-05-06] MEDS: INSULIN GLARGINE, 100 UNIT/ML CARTRIDGE SQ SCH ×2 (09:58→22:22)
--- NOTE | 2017-05-06 10:30 | NUR ---
Seen and examined by with no new orders.Relayed CBC result.continue to monitor.
[2017-05-06] MEDS: CLONIDINE HCL 0.2 MG TABLET GT PRN (12:19)
[2017-05-06] MEDS: HYDROCODONE/APAP 5/325MG 1 EACH TABLET GT SCH ×2 (12:20→20:40)
[2017-05-06] MEDS: CEFEPIME 1 GM in IV D5W 50 ML IV SCH (13:00)
[2017-05-06] MEDS: HYDROGEN PEROXIDE 480 ML BOTTLE TP SCH ×2 (13:20→20:41)
[2017-05-06] MEDS: Z GUARD REMEDY 4 OZ OINT TP SCH ×4 (13:20→20:41)
[2017-05-06] MEDS: HYDROGEL DRESSING 90 GM TUBE TP SCH ×2 (13:20→20:41)
[2017-05-06] MEDS: DAKINS QUARTER STRENGTH (0.125%) 480 ML BOTTLE TOP SCH ×2 (13:20→20:41)
[2017-05-06] MEDS: NYSTATIN TOP POWDER 15 GM BOTTLE TP SCH ×4 (13:20→20:41)
--- NOTE | 2017-05-06 16:48 | NUR ---
RT NOTE END OF SHIFT SUMMERY PT REMAINS ON [facility] VENT WITH NOTED SETTINGS. SX MOD AMOUNT OF YELLOW SECRETIONS SECRETIONS. TRACH AND VENT TUBING INTACT. VENT PLUGGED INTO RED OUTLET. AMBU BAG/SPARE TRACH AT BEDSIDE. VENT ALARMS ARE SET AND AUDIBLE PER POLICY. DISCONNECT ALARM VERIFIED. NO DISTRESS T/O SHIFT. Addendum: 05/06/17 at 1648 by HERO MILES RT Amended: Links added.
[2017-05-06] MEDS: RENAL NOVASOURCE 1,000 ML BOTTLE GT PRN (23:26)
[2017-05-07 00:30] VITALS: BP 171/78
[2017-05-07] MEDS: CLONIDINE HCL 0.2 MG TABLET GT PRN ×3 (00:32→17:55)
[2017-05-07] MEDS: ALBUTEROL FS 2.5 MG/3 ML VIAL.NEB NEB SCH ×4 (00:58→20:30)
[2017-05-07] MEDS: IPRATROPIUM NEB FS 0.5 MG/2.5 ML AMPUL.NEB NEB SCH ×4 (00:58→20:06)
--- NOTE | 2017-05-07 02:12 | NUR ---
PT STABLE ON RECEIVED VENTS SETTINGS. NO S/S OF SOB NOTED. PT SX PRN FOR MOD AMOUNT OF PALE YELLOW SECRETIONS. ALARMS CHECKED AND AUDIBLE THROUGHOUT SUBACUTE UNIT. MECHANICAL VENTILATOR PLUGGED INTO RED OUTLET. TRACH CARE DONE. WILL CONTINUE TO MONITOR PT. Addendum: 05/07/17 at 0212 by SAMINA FLETCHER RT Amended: Links added.
[2017-05-07] MEDS: PROSOURCE / PROSTAT (PYXIS) 30 ML UDC GT SCH ×5 (05:27→21:47)
[2017-05-07] MEDS: ESOMEPRAZOLE MAG TRIHYDRATE 20 MG CAPSULE.DR GT SCH (05:27)
[2017-05-07] MEDS: METOCLOPRAMIDE HCL 10 MG/10 ML UDC GT SCH ×4 (05:27→23:27)
[2017-05-07] MEDS: BLOOD SUGAR DIAGNOSTIC 1 EACH STRIP IN SCH ×4 (06:37→23:27)
[2017-05-07] MEDS: INSULIN REGULAR, HUMAN 100 UNIT/ML 3 ML VIAL SQ PRN ×3 (06:38→23:28)
[2017-05-07 06:47] VITALS: BP 169/82
[2017-05-07 07:44] VITALS: BP 191/103
[2017-05-07] MEDS: POLYVINYL ALCOHOL 15 ML BOTTLE EACHEYE SCH ×2 (08:13→21:46)
[2017-05-07] MEDS: HEPARIN SODIUM, PORCINE 5000 UNITS/1 ML VIAL SQ SCH ×2 (08:13→21:47)
[2017-05-07] MEDS: LACTOBACILLUS RHAMNOSUS GG 1 EACH CAP.SPRINK GT SCH ×2 (08:13→17:54)
[2017-05-07] MEDS: VIT B CMPLX 3/FA/VIT C/BIOTIN 1 TAB TABLET PO SCH (08:13)
[2017-05-07] MEDS: ASCORBIC ACID 500 MG TABLET GT SCH (08:13)
[2017-05-07] MEDS: INSULIN GLARGINE, 100 UNIT/ML CARTRIDGE SQ SCH ×2 (08:14→22:06)
[2017-05-07] MEDS ORDERED: CADEXOMER IODINE 40 GM TUBE TP PRN (11:30)
[2017-05-07] MEDS: CEFEPIME 1 GM in IV D5W 50 ML IV SCH (14:00)
[2017-05-07 14:30] VITALS: BP 176/86
[2017-05-07] MEDS: HYDROCODONE/APAP 5/325MG 1 EACH TABLET GT SCH ×2 (14:30→21:47)
[2017-05-07] MEDS: NYSTATIN TOP POWDER 15 GM BOTTLE TP SCH ×3 (15:00→21:48)
[2017-05-07] MEDS: DAKINS QUARTER STRENGTH (0.125%) 480 ML BOTTLE TOP SCH ×2 (15:00→21:47)
[2017-05-07] MEDS: Z GUARD REMEDY 4 OZ OINT TP SCH ×4 (15:00→21:48)
[2017-05-07] MEDS: HYDROGEL DRESSING 90 GM TUBE TP SCH ×2 (15:00→21:47)
[2017-05-07] MEDS: HYDROGEN PEROXIDE 480 ML BOTTLE TP SCH ×2 (15:00→21:47)
--- NOTE | 2017-05-07 15:00 | NUR ---
Pt came back from Renal and RT Esmer (José Miguel) said pt will have an extra dialysis treatment tomorrow at 1 PM for 2 hours. There was also a note on the communication record regarding extra dialysis treatment. Arranged transportation with José Miguel, spoke with Guillermina. supply person time will be at 1215 PM. Addendum: 05/07/17 at 1547 by GEORGE CLEARY RN Pt will have extra dialysis treatment because of swelling.
[2017-05-07] MEDS: hydrALAZINE HCL 25 MG TABLET GT SCH (17:54)
[2017-05-07 18:00] VITALS: BP 172/87
[2017-05-07 19:51] VITALS: BP 178/87
[2017-05-07] MEDS: CADEXOMER IODINE 40 GM TUBE TP SCH (21:48)
[2017-05-07] MEDS: METOPROLOL TARTRATE 50 MG TABLET GT SCH (21:49)
[2017-05-08] MEDS: CLONIDINE HCL 0.2 MG TABLET GT PRN ×4 (00:24→23:56)
[2017-05-08 00:25] VITALS: BP 180/91
[2017-05-08] MEDS: ALBUTEROL FS 2.5 MG/3 ML VIAL.NEB NEB SCH ×4 (01:48→20:16)
[2017-05-08] MEDS: IPRATROPIUM NEB FS 0.5 MG/2.5 ML AMPUL.NEB NEB SCH ×4 (01:48→20:16)
[2017-05-08] MEDS: PROSOURCE / PROSTAT (PYXIS) 30 ML UDC GT SCH ×5 (05:39→21:47)
[2017-05-08] MEDS: METOCLOPRAMIDE HCL 10 MG/10 ML UDC GT SCH ×4 (05:39→23:55)
[2017-05-08] MEDS: ESOMEPRAZOLE MAG TRIHYDRATE 20 MG CAPSULE.DR GT SCH (05:39)
[2017-05-08] MEDS: BLOOD SUGAR DIAGNOSTIC 1 EACH STRIP IN SCH ×4 (06:19→23:55)
[2017-05-08] MEDS: RENAL NOVASOURCE 1,000 ML BOTTLE GT PRN (06:19)
[2017-05-08 06:20] VITALS: BP 184/78
[2017-05-08] MEDS: INSULIN REGULAR, HUMAN 100 UNIT/ML 3 ML VIAL SQ PRN ×4 (06:20→23:56)
[2017-05-08 07:45] VITALS: BP 165/80
[2017-05-08] MEDS: HYDROGEL DRESSING 90 GM TUBE TP SCH ×2 (09:00→21:48)
[2017-05-08] MEDS: NYSTATIN TOP POWDER 15 GM BOTTLE TP SCH ×2 (09:00→21:48)
[2017-05-08] MEDS: DAKINS QUARTER STRENGTH (0.125%) 480 ML BOTTLE TOP SCH ×2 (09:00→21:48)
[2017-05-08] MEDS: CADEXOMER IODINE 40 GM TUBE TP SCH ×3 (09:00→21:48)
[2017-05-08] MEDS: Z GUARD REMEDY 4 OZ OINT TP SCH ×4 (09:00→21:48)
[2017-05-08] MEDS: INSULIN GLARGINE, 100 UNIT/ML CARTRIDGE SQ SCH ×2 (09:00→21:49)
[2017-05-08] MEDS: HYDROGEN PEROXIDE 480 ML BOTTLE TP SCH ×2 (09:00→21:48)
[2017-05-08] MEDS: LACTOBACILLUS RHAMNOSUS GG 1 EACH CAP.SPRINK GT SCH ×2 (09:58→17:34)
[2017-05-08] MEDS: hydrALAZINE HCL 25 MG TABLET GT SCH ×2 (09:58→17:34)
[2017-05-08] MEDS: POLYVINYL ALCOHOL 15 ML BOTTLE EACHEYE SCH ×2 (09:58→21:47)
[2017-05-08] MEDS: HYDROCODONE/APAP 5/325MG 1 EACH TABLET GT SCH ×2 (09:58→21:47)
[2017-05-08] MEDS: ASCORBIC ACID 500 MG TABLET GT SCH (09:59)
[2017-05-08] MEDS: METOPROLOL TARTRATE 50 MG TABLET GT SCH ×2 (09:59→21:49)
[2017-05-08] MEDS: HEPARIN SODIUM, PORCINE 5000 UNITS/1 ML VIAL SQ SCH ×2 (09:59→21:48)
[2017-05-08] MEDS: VIT B CMPLX 3/FA/VIT C/BIOTIN 1 TAB TABLET PO SCH (09:59)
[2017-05-08 12:00] VITALS: BP 143/72
[2017-05-08] MEDS: CEFEPIME 1 GM in IV D5W 50 ML IV SCH (16:00)
--- NOTE | 2017-05-08 16:00 | NUR ---
Female trach received on mechanical vent. Pt trach is secure. Pt tolerated current vent settings throughout the shift. Vent is plugged into a red outlet, alarms are set and audible, disconnect alarm checked, BVM at bedside. Addendum: 05/08/17 at 1602 by ANNMARIE CARVER RT Amended: Links added.
--- NOTE | 2017-05-08 16:01 | NUR ---
Resident returned back from dialysis in stable condition, V/S 156/77, 71, RR 17 in no s/s of respiratory and cardio distress. Resident's responsible alliance party (John) called and updated him of patient's condition, such as current ATB order and patient received extra dialysis treatment today. John appreciated the information given.
[2017-05-08 18:28] VITALS: BP 166/75
[2017-05-08 19:41] VITALS: BP 162/77
[2017-05-09 00:02] VITALS: BP 163/77
[2017-05-09] MEDS: IPRATROPIUM NEB FS 0.5 MG/2.5 ML AMPUL.NEB NEB SCH ×4 (01:30→19:45)
[2017-05-09] MEDS: ALBUTEROL FS 2.5 MG/3 ML VIAL.NEB NEB SCH ×4 (01:30→19:45)
[2017-05-09] MEDS: BLOOD SUGAR DIAGNOSTIC 1 EACH STRIP IN SCH ×4 (05:37→23:32)
[2017-05-09] MEDS: PROSOURCE / PROSTAT (PYXIS) 30 ML UDC GT SCH ×5 (05:37→21:07)
[2017-05-09] MEDS: ESOMEPRAZOLE MAG TRIHYDRATE 20 MG CAPSULE.DR GT SCH (05:37)
[2017-05-09] MEDS: INSULIN REGULAR, HUMAN 100 UNIT/ML 3 ML VIAL SQ PRN ×3 (05:37→23:33)
[2017-05-09] MEDS: METOCLOPRAMIDE HCL 10 MG/10 ML UDC GT SCH ×4 (05:37→23:32)
[2017-05-09] MEDS: RENAL NOVASOURCE 1,000 ML BOTTLE GT PRN (06:11)
[2017-05-09 06:12] VITALS: BP 179/74
[2017-05-09] MEDS: CLONIDINE HCL 0.2 MG TABLET GT PRN (06:13)
[2017-05-09 07:37] VITALS: BP 163/80
[2017-05-09] MEDS: ASCORBIC ACID 500 MG TABLET GT SCH (09:27)
[2017-05-09] MEDS: VIT B CMPLX 3/FA/VIT C/BIOTIN 1 TAB TABLET PO SCH (09:27)
[2017-05-09] MEDS: LACTOBACILLUS RHAMNOSUS GG 1 EACH CAP.SPRINK GT SCH ×2 (09:27→17:21)
[2017-05-09] MEDS: POLYVINYL ALCOHOL 15 ML BOTTLE EACHEYE SCH ×2 (09:27→21:07)
[2017-05-09] MEDS: HEPARIN SODIUM, PORCINE 5000 UNITS/1 ML VIAL SQ SCH ×2 (09:28→21:09)
[2017-05-09] MEDS: INSULIN GLARGINE, 100 UNIT/ML CARTRIDGE SQ SCH ×2 (09:29→21:10)
[2017-05-09] MEDS: HYDROCODONE/APAP 5/325MG 1 EACH TABLET GT SCH ×2 (13:57→21:08)
[2017-05-09] MEDS: CADEXOMER IODINE 40 GM TUBE TP SCH ×3 (14:57→21:00)
[2017-05-09] MEDS: NYSTATIN TOP POWDER 15 GM BOTTLE TP SCH ×2 (14:57→21:08)
[2017-05-09] MEDS: DAKINS QUARTER STRENGTH (0.125%) 480 ML BOTTLE TOP SCH ×2 (14:57→21:00)
[2017-05-09] MEDS: HYDROGEN PEROXIDE 480 ML BOTTLE TP SCH ×2 (14:57→21:08)
[2017-05-09] MEDS: HYDROGEL DRESSING 90 GM TUBE TP SCH ×2 (14:57→21:00)
[2017-05-09] MEDS: Z GUARD REMEDY 4 OZ OINT TP SCH ×4 (14:57→21:08)
[2017-05-09] MEDS: CEFEPIME 1 GM in IV D5W 50 ML IV SCH (15:00)
[2017-05-09] MEDS: hydrALAZINE HCL 25 MG TABLET GT SCH (17:21)
--- NOTE | 2017-05-09 17:40 | NUR ---
RECEIVED PT ON [facility] VENT TRACH ON SETTINGS PER MD. AIRWAY PATENT. SX MODERATE AMOUNT OF THICK YELLOW SECRETIONS. TRACH AND VENT TUBING INTACT. VENT PLUGGED INTO RED OUTLET. AMBU BAG/SPARE TRACH AT BEDSIDE. VENT ALARMS ARE SET AND AUDIBLE. Addendum: 05/09/17 at 1741 by KENNA PICKERING RT Amended: Links added.
[2017-05-09 18:03] VITALS: BP 138/74
[2017-05-09 19:38] VITALS: BP 116/83
[2017-05-09] MEDS: METOPROLOL TARTRATE 50 MG TABLET GT SCH (21:09)
[2017-05-10 00:23] VITALS: BP 116/54
[2017-05-10] MEDS: IPRATROPIUM NEB FS 0.5 MG/2.5 ML AMPUL.NEB NEB SCH ×4 (01:30→20:05)
[2017-05-10] MEDS: ALBUTEROL FS 2.5 MG/3 ML VIAL.NEB NEB SCH ×4 (01:30→20:05)
[2017-05-10] MEDS: METOCLOPRAMIDE HCL 10 MG/10 ML UDC GT SCH ×3 (05:33→17:35)
[2017-05-10] MEDS: BLOOD SUGAR DIAGNOSTIC 1 EACH STRIP IN SCH ×3 (05:33→17:06)
[2017-05-10] MEDS: PROSOURCE / PROSTAT (PYXIS) 30 ML UDC GT SCH ×5 (05:33→20:49)
[2017-05-10] MEDS: ESOMEPRAZOLE MAG TRIHYDRATE 20 MG CAPSULE.DR GT SCH (05:33)
[2017-05-10] MEDS: RENAL NOVASOURCE 1,000 ML BOTTLE GT PRN (05:33)
[2017-05-10] MEDS: INSULIN REGULAR, HUMAN 100 UNIT/ML 3 ML VIAL SQ PRN ×3 (05:35→17:38)
[2017-05-10 06:06] VITALS: BP 146/77
[2017-05-10 07:31] VITALS: BP 136/81
[2017-05-10] MEDS: POLYVINYL ALCOHOL 15 ML BOTTLE EACHEYE SCH ×2 (09:16→21:01)
[2017-05-10] MEDS: hydrALAZINE HCL 25 MG TABLET GT SCH ×2 (09:16→17:35)
[2017-05-10] MEDS: LACTOBACILLUS RHAMNOSUS GG 1 EACH CAP.SPRINK GT SCH ×2 (09:16→17:35)
[2017-05-10] MEDS: VIT B CMPLX 3/FA/VIT C/BIOTIN 1 TAB TABLET PO SCH (09:17)
[2017-05-10] MEDS: ASCORBIC ACID 500 MG TABLET GT SCH (09:17)
[2017-05-10] MEDS: HYDROCODONE/APAP 5/325MG 1 EACH TABLET GT SCH ×2 (09:17→20:48)
[2017-05-10] MEDS: METOPROLOL TARTRATE 50 MG TABLET GT SCH ×2 (09:17→22:00)
[2017-05-10] MEDS: HEPARIN SODIUM, PORCINE 5000 UNITS/1 ML VIAL SQ SCH ×2 (09:18→20:50)
[2017-05-10] MEDS: INSULIN GLARGINE, 100 UNIT/ML CARTRIDGE SQ SCH ×2 (09:19→22:00)
[2017-05-10] MEDS: HYDROGEL DRESSING 90 GM TUBE TP SCH ×2 (10:17→20:51)
[2017-05-10] MEDS: CADEXOMER IODINE 40 GM TUBE TP SCH ×3 (10:17→20:51)
[2017-05-10] MEDS: DAKINS QUARTER STRENGTH (0.125%) 480 ML BOTTLE TOP SCH ×2 (10:17→20:51)
[2017-05-10] MEDS: Z GUARD REMEDY 4 OZ OINT TP SCH ×4 (10:17→20:52)
[2017-05-10] MEDS: NYSTATIN TOP POWDER 15 GM BOTTLE TP SCH ×2 (10:17→20:51)
[2017-05-10] MEDS: HYDROGEN PEROXIDE 480 ML BOTTLE TP SCH ×2 (10:17→20:51)
[2017-05-10 12:00] VITALS: BP 167/85
[2017-05-10] MEDS: CEFEPIME 1 GM in IV D5W 50 ML IV SCH (14:27)
--- NOTE | 2017-05-10 16:53 | NUR ---
NO VENT CHANGES MADE. Addendum: 05/10/17 at 1654 by CHAR JEFFERSON RT Amended: Links added.
[2017-05-10 18:29] VITALS: BP 168/85
[2017-05-10] MEDS: CLONIDINE HCL 0.2 MG TABLET GT PRN (18:33)
[2017-05-10 19:35] VITALS: BP 132/56
[2017-05-11 00:45] VITALS: BP 149/81
[2017-05-11] MEDS: BLOOD SUGAR DIAGNOSTIC 1 EACH STRIP IN SCH ×4 (00:49→18:29)
[2017-05-11] MEDS: METOCLOPRAMIDE HCL 10 MG/10 ML UDC GT SCH ×4 (00:49→18:29)
[2017-05-11] MEDS: INSULIN REGULAR, HUMAN 100 UNIT/ML 3 ML VIAL SQ PRN ×4 (00:53→18:32)
[2017-05-11] MEDS: ALBUTEROL FS 2.5 MG/3 ML VIAL.NEB NEB SCH ×4 (01:22→20:19)
[2017-05-11] MEDS: IPRATROPIUM NEB FS 0.5 MG/2.5 ML AMPUL.NEB NEB SCH ×4 (01:22→20:19)
[2017-05-11] MEDS: PROSOURCE / PROSTAT (PYXIS) 30 ML UDC GT SCH ×5 (05:42→21:04)
[2017-05-11] MEDS: ESOMEPRAZOLE MAG TRIHYDRATE 20 MG CAPSULE.DR GT SCH (05:43)
[2017-05-11 06:24] VITALS: BP 148/71
[2017-05-11 07:53] VITALS: BP 160/73
[2017-05-11] MEDS: POLYVINYL ALCOHOL 15 ML BOTTLE EACHEYE SCH ×2 (08:32→21:04)
[2017-05-11] MEDS: METOPROLOL TARTRATE 50 MG TABLET GT SCH ×2 (08:33→21:06)
[2017-05-11] MEDS: ASCORBIC ACID 500 MG TABLET GT SCH (08:33)
[2017-05-11] MEDS: hydrALAZINE HCL 25 MG TABLET GT SCH ×2 (08:33→16:49)
[2017-05-11] MEDS: VIT B CMPLX 3/FA/VIT C/BIOTIN 1 TAB TABLET PO SCH (08:33)
[2017-05-11] MEDS: LACTOBACILLUS RHAMNOSUS GG 1 EACH CAP.SPRINK GT SCH ×2 (08:33→16:49)
[2017-05-11] MEDS: HEPARIN SODIUM, PORCINE 5000 UNITS/1 ML VIAL SQ SCH ×2 (08:34→21:05)
[2017-05-11] MEDS: INSULIN GLARGINE, 100 UNIT/ML CARTRIDGE SQ SCH ×2 (08:34→21:07)
[2017-05-11] MEDS: HYDROCODONE/APAP 5/325MG 1 EACH TABLET GT SCH ×2 (09:50→21:04)
[2017-05-11] MEDS: Z GUARD REMEDY 4 OZ OINT TP SCH ×4 (10:50→21:05)
[2017-05-11] MEDS: HYDROGEL DRESSING 90 GM TUBE TP SCH ×2 (10:50→21:05)
[2017-05-11] MEDS: HYDROGEN PEROXIDE 480 ML BOTTLE TP SCH ×2 (10:50→21:05)
[2017-05-11] MEDS: NYSTATIN TOP POWDER 15 GM BOTTLE TP SCH ×2 (10:50→21:05)
[2017-05-11] MEDS: CADEXOMER IODINE 40 GM TUBE TP SCH ×3 (10:50→21:05)
[2017-05-11] MEDS: DAKINS QUARTER STRENGTH (0.125%) 480 ML BOTTLE TOP SCH ×2 (10:51→21:05)
--- NOTE | 2017-05-11 11:05 | NUR ---
made rounds and seen the pt and aware about the iv antibiotics and no new orders noted.
[2017-05-11] MEDS: CEFEPIME 1 GM in IV D5W 50 ML IV SCH (13:33)
--- NOTE | 2017-05-11 16:26 | NUR ---
RECEIVED PT ON [facility] VENT TRACH. ON VENT SETTINGS NOTED AND ORDERED BY . AIRWAY PATENT. SX MOD AMOUNT OF THICK YELLOW SECRETIONS. TRACH AND VENT TUBING INTACT. VENT PLUGGED INTO RED OUTLET. AMBU BAG/SPARE TRACH AT BEDSIDE. VENT ALARMS ARE SET AND AUDIBLE NO DISTRESS NOTED DURING SHIFT. Addendum: 05/11/17 at 1626 by KENNA PICKERING RT Amended: Links added.
[2017-05-11 18:28] VITALS: BP 163/79
[2017-05-11] MEDS: CLONIDINE HCL 0.2 MG TABLET GT PRN (18:30)
[2017-05-11 22:33] VITALS: BP 145/78
[2017-05-12 00:14] VITALS: BP 140/60
[2017-05-12] MEDS: BLOOD SUGAR DIAGNOSTIC 1 EACH STRIP IN SCH ×2 (00:24→05:27)
[2017-05-12] MEDS: METOCLOPRAMIDE HCL 10 MG/10 ML UDC GT SCH ×2 (00:24→05:27)
[2017-05-12] MEDS: INSULIN REGULAR, HUMAN 100 UNIT/ML 3 ML VIAL SQ PRN ×2 (00:25→05:28)
[2017-05-12] MEDS: IPRATROPIUM NEB FS 0.5 MG/2.5 ML AMPUL.NEB NEB SCH ×2 (01:07→07:39)
[2017-05-12] MEDS: ALBUTEROL FS 2.5 MG/3 ML VIAL.NEB NEB SCH ×2 (01:07→07:39)
[2017-05-12] MEDS: ESOMEPRAZOLE MAG TRIHYDRATE 20 MG CAPSULE.DR GT SCH (05:27)
[2017-05-12] MEDS: PROSOURCE / PROSTAT (PYXIS) 30 ML UDC GT SCH ×2 (05:27→08:15)
[2017-05-12 06:15] VITALS: BP 155/71
[2017-05-12 08:08] VITALS: BP 187/82
[2017-05-12] MEDS: POLYVINYL ALCOHOL 15 ML BOTTLE EACHEYE SCH (08:14)
[2017-05-12] MEDS: LACTOBACILLUS RHAMNOSUS GG 1 EACH CAP.SPRINK GT SCH (08:14)
[2017-05-12] MEDS: ASCORBIC ACID 500 MG TABLET GT SCH (08:15)
[2017-05-12] MEDS: VIT B CMPLX 3/FA/VIT C/BIOTIN 1 TAB TABLET PO SCH (08:15)
[2017-05-12] MEDS: HEPARIN SODIUM, PORCINE 5000 UNITS/1 ML VIAL SQ SCH (08:16)
[2017-05-12] MEDS: INSULIN GLARGINE, 100 UNIT/ML CARTRIDGE SQ SCH (08:29)
== END 2017-05-10 23:59 | disposition still patient (30) | DRG 130 ==
LOC: SA 11:32
PROVIDERS: ADMIT Internal Medicine Nephrology; ATTEND Internal Medicine Nephrology
PROC: 5A1955Z Respiratory Ventilation, Greater than 96 Consecutive Hours (ICD-10-PCS; principal; 2017-01-13)
DX: J96.11 Chronic respiratory failure with hypoxia (principal); G93.1 Anoxic brain damage, not elsewhere classified; R40.3 Persistent vegetative state; E11.22 Type 2 diabetes mellitus with diabetic chronic kidney disease; I12.0 Hypertensive chronic kidney disease with stage 5 chronic kidney disease or end stage renal disease; N18.6 End stage renal disease; E66.01 Morbid (severe) obesity due to excess calories; R13.10 Dysphagia, unspecified; Z99.11 Dependence on respirator [ventilator] status; I73.9 Peripheral vascular disease, unspecified; Z87.440 Personal history of urinary (tract) infections; Z89.511 Acquired absence of right leg below knee; Z89.612 Acquired absence of left leg above knee; Z90.3 Acquired absence of stomach [part of]; Z93.0 Tracheostomy status; Z93.1 Gastrostomy status; Z93.3 Colostomy status; Z99.2 Dependence on renal dialysis
CPT/HCPCS: 31720; 36415; 36569; 71010-TC; 80048-TC; 80170-TC; 80202-TC; 82962-TC; 85025-TC; 87040-TC; 87070-TC; 87186-TC; 94003-TC; 94762-TC; 94799-TC; 97760-TC; 99082-TC; A4216; A4623; A6248; A6253; A6402; A7526; J0692; J1580; J1644; J1815; J1956; J2543; J2765; J3370; J3490; J7060; J8597; Q2036; Z7610

== ENCOUNTER 2017-05-11 | Inpatient (IN) | END 2018-05-10 23:59 | disposition still patient (30) | DRG 952 | DX: J96.11 Chronic respiratory failure with hypoxia (principal); G93.1 Anoxic brain damage, not elsewhere classified; A41.9 Sepsis, unspecified organism; K31.6 Fistula of stomach and duodenum; Z99.11 Dependence on respirator [ventilator] status; J18.9 Pneumonia, unspecified organism; N18.6 End stage renal disease; I96 Gangrene, not elsewhere classified; I12.0 Hypertensive chronic kidney disease with stage 5 chronic kidney disease or end stage renal disease; E11.52 Type 2 diabetes mellitus with diabetic peripheral angiopathy with gangrene; E87.2 Acidosis; R13.10 Dysphagia, unspecified; E11.22 Type 2 diabetes mellitus with diabetic chronic kidney disease; E66.01 Morbid (severe) obesity due to excess calories; Z87.440 Personal history of urinary (tract) infections; Z89.511 Acquired absence of right leg below knee; Z89.612 Acquired absence of left leg above knee; Z90.3 Acquired absence of stomach [part of]; Z99.2 Dependence on renal dialysis; R62.7 Adult failure to thrive; E83.9 Disorder of mineral metabolism, unspecified; S90.31XA Contusion of right foot, initial encounter; L02.611 Cutaneous abscess of right foot; S91.301A Unspecified open wound, right foot, initial encounter; K94.23 Gastrostomy malfunction; S61.200A Unspecified open wound of right index finger without damage to nail, initial encounter; N25.81 Secondary hyperparathyroidism of renal origin; D63.8 Anemia in other chronic diseases classified elsewhere; S02.5XXA Fracture of tooth (traumatic), initial encounter for closed fracture; L89.899 Pressure ulcer of other site, unspecified stage ==

== ENCOUNTER 2017-06-25 10:28 | Inpatient (IN) | payer MEDICAID ==
[~2017-06-25] VITALS: Ht 162.6 cm; Wt 66.2 kg
[~2017-06-25 10:28] MED LIST changes: +ALLA266C2 TP; +Hydrogel Dressing TP; +INSU100I19 SQ; +RXGEN XX; +Renal Novasource GT
--- NOTE | 2017-06-25 10:32 | NUR ---
STEVE FROM HD CENTER DT ELEVATED TEMPERATURE. PATIENT DID NOT GET HER HD TODAY. PATIENT RECEIVED IN NO DISTRESS. VENT/ TRACHE DEPENDENT, NOTED WITH GT, ABDOMEN NON TENDERED. SKIN IS WARM TO TOUCH,. CONNECTED PT TO TELE MONITOR. AWAITING FOR MD MARTÍNEZ
[2017-06-25 10:47] VITALS: BP 120/82
--- NOTE | 2017-06-25 10:52 | NUR ---
RT REC'D PT TRACH FROM DIALYSIS SENT FOR ELEVATED TEMP WITH VENT SETTINGS OF AC 500 12 40% +5
[2017-06-25] MEDS ORDERED: IV NS 0.9% 1,000 ML BAG IV ONE (11:00)
[2017-06-25 11:41] LABS: INR 0.94 (0.85-1.15)
[2017-06-25 11:45] LABS: TROPONIN I < 0.017 ng/mL (0.00-0.056)
[2017-06-25 11:55] LABS: ALANINE AMINOTRANSFERASE 27 U/L (12-78); ALBUMIN 2.9 g/dL (3.4-5.0); ALKALINE PHOSPHATASE 308 U/L (46-116); ASPARTATE AMINOTRANSFERASE 21 U/L (15-37); BASOPHILS % (AUTO) 0.1 % (0.0-2.0); BILIRUBIN,DIRECT 0.1 mg/dL (0.0-0.2); BILIRUBIN,TOTAL 0.4 mg/dL (0.2-1.0); CALCIUM, SERUM 9.3 mg/dL (8.5-10.1); CARBON DIOXIDE 27 mmol/L (21-32); CHLORIDE 89 mmol/L (98-107); CREATININE 4.2 mg/dL (0.6-1.3); EOSINOPHILS % (AUTO) 0.2 % (0.0-6.0); GLUCOSE 224 mg/dL (74-106); HEMATOCRIT 35 % (33-45); HEMOGLOBIN 11.6 g/dL (11.5-14.8); LYMPHOCYTES % (AUTO) 6.4 % (20.0-44.0); MEAN CORPUSCULAR HEMOGLOBIN 30 PG (26.0-33.0); MEAN CORPUSCULAR HGB CONC 33 g/dl (31.0-36.0); MEAN CORPUSCULAR VOLUME 91 fL (82-100); MONOCYTES # (AUTO) 0.7 /CMM (0.1-1.30); MONOCYTES % (AUTO) 4.4 % (2.0-12.0); NEUTROPHILS # (AUTO) 14.4 /CMM (1.8-8.9); NEUTROPHILS % (AUTO) 88.9 % (43.0-81.0); PLATELET COUNT (AUTO) 179 /CMM (150-450); POTASSIUM 4.8 mmol/L (3.5-5.1); RED BLOOD CELL COUNT(AUTO) 3.82 MIL/uL (4.0-5.2); SODIUM SERUM 124 mmol/L (136-145); TOTAL PROTEIN, SERUM 8.8 g/dL (6.4-8.2); WHITE BLOOD COUNT (AUTO) 16.3 K/uL (4.3-11.0)
[2017-06-25] MEDS ORDERED: VANCOMYCIN 1 GM in IV D5W 250 ML IV ONE ×2 (12:00→19:00)
[2017-06-25] MEDS ORDERED: PIPERACILLIN /TAZOBACTAM 3.375 G in IV D5W 50 ML IV ONE (12:00)
--- NOTE | 2017-06-25 12:20 | NUR ---
DR. LORAINE ATKINS
[2017-06-25 12:27] LABS: UREA NITROGEN, BLOOD 114 mg/dL (7-18)
[2017-06-25] MEDS ORDERED: INSU100V7 SQ (12:40)
[2017-06-25] MEDS ORDERED: IPRA0.2S9 IH (12:40)
[2017-06-25] MEDS ORDERED: GEL100GE TD (12:40)
[2017-06-25] MEDS ORDERED: METO5SOL2 GT (12:40)
[2017-06-25] MEDS ORDERED: POLY15DR40 EACHEYE (12:40)
[2017-06-25 12:41] VITALS: BP 140/74
--- NOTE | 2017-06-25 13:30 | NUR ---
Patient is resting comfortably in bed with eyes closed. Easily aroused. VSS
--- NOTE | 2017-06-25 14:30 | NUR ---
Patient is resting comfortably in bed with eyes closed. Easily aroused. VSS
[2017-06-25 15:03] VITALS: BP 156/76
--- NOTE | 2017-06-25 16:38 | NUR ---
REPORT GIVEN TO NED WAGGONER FOR [facility] BILL 117.
--- NOTE | 2017-06-25 17:50 | NUR ---
RN NOTE PATIENT RECEIVED IN BED , NON VERBAL UNABLE TO MAKE NEEDS KNOWN PATIENT HAS RIGHT WRIST AV SHUNT PRESENT, PATIENT CURRENTLY ON VENT TOLERATING SETTING WELL WITHOUT SOB OR DESATURATIONS NOTED PATIENT INITIAL ASSESSMENT STARTED , PATIENT HAS MILD FEVER UPON ADMISSION INTO THE UNIT TEMP 99.8 AT THIS TIME VITAL SIGNS STABLE OTHERWISE B/P 101/58 RESP 20 HR64. PATIENT HAS LEFT AKA MILD GRIMACING NOTED UPON BAT LATHE OPERATOR WILL CONTINUE TO FOLLOW SAFETY MEASURES IN PLACE AND BED LOCKED TO LOWEST POSTION
[2017-06-25 17:53] VITALS: BP 155/69
[2017-06-25] MEDS ORDERED: FEE PK DOSING 1 MIN EA MC ONE (18:27)
[2017-06-25] MEDS: PIPERACILLIN /TAZOBACTAM 2.25 G in IV D5W 50 ML IV SCH (19:00)
--- NOTE | 2017-06-25 19:48 | NUR ---
RN NOTE PATIENT IN BED NO SOB NOTED INITIAL ASSESSMENT STARTED BUT NOT COMPLETED RN ENDORSE CONTINUATION OF CARE - SUCH PHOTOS AND WOUND ASSESSMENT TO PM RN , RN ALSO ENDORSED CONTINUED CARE FOR IV ANTIBIOTIC VERIFICATION , RN SPOKE WITH CESARIO INFECTIOUS CONTROL IN REGARDS TO THE PATIENT UPDATE IN CARE AND ADMISSION RN SPOKE WITH HD RN AND WAS INFORMED THAT PATIENT WILL BE RECEIVING HD TODAY , PATIENT REMAINSSTABLE AT THIS TIME AND CONTINUATION OF CARE AND INIAL ASSESSMENT ENDORSED
[2017-06-25 20:00] VITALS: BP 155/82
--- NOTE | 2017-06-25 20:00 | NUR ---
rn notes [id number] PATIENT IN BED WITH NO DISTRESS NOTED. BREATHING EVEN AND UNLABORED. ON CHRONIC VEGETATIVE STATE. NO PHYSICAL MANIFESTATION OF PAIN OR DISCOMFORT. VANCOMYCIN AND ZOSYN FOR 1900 NOT GIVEN IN BILL. ALREADY GIVEN IN ER. CLARIFIED WITH PHARMACY. TOOK PICTURES OF ALL WOUNDS AND FILE IN THE CHART. MEDICATION ORDER RECONCILLED. KEPT CLEAN AND DRY
--- NOTE | 2017-06-25 20:29 | NUR ---
RN NOTE CONTINUATION OF ORDERS WILL BE COMPLETED BY PM RN PM RN CONTACTED MD SRIKANTH LORENZO FOR RECONCILIATION OF MEDICATION RN CONTACTED PHARMACY AND WAS ADVISED THAT MD MUST COMPLETE THE MED RECON TO CONTINUE HOME MEDICATIONS PATIENT G-TUBE CURRENTLY LOCKED PM RN WILL CONTINUE TO FOLLOW CHARGE NURSE SOON INFORMED AND ASKED ABOUT THE ADMISSION PROCESS FOR NEW ADMISSION MEDICATION CONTINUED FROM HOME RN 'S NOTIFIED TO CONTACT THE MD ,, PM RN CONTACTED MD SRIKANTH LORENZO FOR FURTHER ORDERS RN AWAITING ORDERS
[2017-06-26] VITALS: BP 120/71
[2017-06-26] MEDS: PIPERACILLIN /TAZOBACTAM 2.25 G in IV D5W 50 ML IV SCH ×5 (01:38→23:08)
[2017-06-26] MEDS ORDERED: RENAL NOVASOURCE 1,000 ML BOTTLE GT SCH ×2 (03:30→04:30)
[2017-06-26 04:00] VITALS: BP 160/79
[2017-06-26] MEDS ORDERED: INSULIN REGULAR, HUMAN 100 UNIT/ML 3 ML VIAL SQ PRN ×2 (04:30→13:30)
[2017-06-26] MEDS ORDERED: DEXTROSE 50%-WATER 50 ML DISP.SYRIN IV PRN ×3 (04:30→13:30)
[2017-06-26] MEDS: BLOOD SUGAR DIAGNOSTIC 1 EACH STRIP IN SCH ×3 (06:00→18:10)
[2017-06-26] MEDS ORDERED: INSULIN REGULAR, HUMAN 100 UNIT/ML 3 ML VIAL SQ SCH (06:00)
[2017-06-26] MEDS ORDERED: BLOOD SUGAR DIAGNOSTIC 1 EACH STRIP IN SCH ×3 (06:00→18:00)
[2017-06-26] MEDS ORDERED: ALBUTEROL FS 2.5 MG/3 ML VIAL.NEB NEB SCH ×2 (07:35→13:30)
[2017-06-26] MEDS ORDERED: IPRATROPIUM NEB FS 0.5 MG/2.5 ML AMPUL.NEB NEB SCH (07:35)
[2017-06-26 08:00] VITALS: BP 180/60
--- NOTE | 2017-06-26 08:00 | NUR ---
TD/RN AM SHIFT INITIAL NOTES RECEIVED PT AWAKE IN BED, PT OBTUNDED, OPEN EYES, NO TRACKING. NO ACUTE CHANGE OF CONDITION OR FEVER NOTED. ON VENTILATOR WITH RATES SET PRESCRIBED, SATURATING @ 100%, LUNG SOUND CLEAR. ON TELE WITH SINUS RHYTHM, HR 88. IV SITES PATENT WITH NO S/S OF INFECTION, ON TKO. GT FEEDING ON GOING @ 35CC/HR, NO GASTRIC RESIDUAL NOTED, FLUSHED PATENT. PT IS COMFORTABLE, SCHEDULED AM MEDS TO BE GIVEN. CL WITHIN REACHED AND SAFETY MAINTAINED. ON GOING MONITORING.
[2017-06-26] MEDS: IPRATROPIUM NEB FS 0.5 MG/2.5 ML AMPUL.NEB NEB SCH ×3 (08:12→20:05)
[2017-06-26] MEDS: ALBUTEROL FS 2.5 MG/3 ML VIAL.NEB NEB SCH ×3 (08:12→20:05)
[2017-06-26] MEDS ORDERED: VANCOMYCIN 500 MG in IV NS 0.9% 100 ML IV PRN (10:30)
[2017-06-26 10:37] LABS: CREATININE 3.3 mg/dL (0.6-1.3); POTASSIUM 4.2 mmol/L (3.5-5.1)
[2017-06-26 10:46] LABS: EOSINOPHILS # (AUTO) 0.1 /CMM (0.0-0.7); EOSINOPHILS % (AUTO) 0.7 % (0.0-6.0); HEMATOCRIT 35 % (33-45); HEMOGLOBIN 11.3 g/dL (11.5-14.8); LYMPHOCYTES # (AUTO) 0.7 /CMM (0.8-4.8); LYMPHOCYTES % (AUTO) 5.5 % (20.0-44.0); MEAN CORPUSCULAR HEMOGLOBIN 30 PG (26.0-33.0); MEAN CORPUSCULAR HGB CONC 32 g/dl (31.0-36.0); MEAN CORPUSCULAR VOLUME 92 fL (82-100); NEUTROPHILS # (AUTO) 10.6 /CMM (1.8-8.9); NEUTROPHILS % (AUTO) 85.8 % (43.0-81.0); PLATELET COUNT (AUTO) 171 /CMM (150-450); RDW COEFFICIENT OF VARIATION 19.3 (11.5-15.0); RED BLOOD CELL COUNT(AUTO) 3.82 MIL/uL (4.0-5.2); WHITE BLOOD COUNT (AUTO) 12.3 K/uL (4.3-11.0)
[2017-06-26 12:00] VITALS: BP 159/69
[2017-06-26] MEDS ORDERED: VANCOMYCIN 500 MG in IV D5W 100 ML IV PRN (12:30)
[2017-06-26] MEDS: INSULIN REGULAR, HUMAN 100 UNIT/ML 3 ML VIAL SQ PRN ×3 (12:46→22:18)
[2017-06-26] MEDS ORDERED: IPRATROPIUM NEB FS 0.5 MG/2.5 ML AMPUL.NEB IH SCH (13:30)
[2017-06-26] MEDS ORDERED: NYSTATIN TOP POWDER 15 GM BOTTLE TP SCH (13:30)
[2017-06-26] MEDS ORDERED: MISCELLANEOUS MED 1 EA EA GT PRN (13:30)
[2017-06-26] MEDS ORDERED: LACTULOSE 10 G/15 ML UDC (PYXIS) GT PRN (13:30)
[2017-06-26] MEDS ORDERED: HYDROCODONE/APAP 5/325MG 1 EACH TABLET GT PRN (13:30)
[2017-06-26] MEDS ORDERED: RENAL NOVASOURCE 1,000 ML BOTTLE GT PRN (13:30)
[2017-06-26 16:00] VITALS: BP 147/70
[2017-06-26] MEDS: PROSOURCE / PROSTAT (PYXIS) 30 ML UDC GT SCH ×3 (16:53→21:53)
[2017-06-26] MEDS: POLYVINYL ALCOHOL 15 ML BOTTLE EACHEYE PRN ×2 (16:53→22:11)
[2017-06-26] MEDS: CADEXOMER IODINE 40 GM TUBE TP SCH (16:54)
[2017-06-26] MEDS: hydrALAZINE HCL 25 MG TABLET GT SCH (16:57)
[2017-06-26] MEDS: LACTOBACILLUS RHAMNOSUS GG 1 EACH CAP.SPRINK GT SCH (16:57)
[2017-06-26] MEDS ORDERED: HYDROGEL DRESSING 90 GM TUBE TP PRN (17:00)
[2017-06-26] MEDS ORDERED: Z GUARD REMEDY 4 OZ OINT TP PRN (17:00)
[2017-06-26] MEDS: POLYVINYL ALCOHOL 15 ML BOTTLE EACHEYE SCH ×2 (17:01→21:00)
[2017-06-26] MEDS: METOCLOPRAMIDE HCL 10 MG/10 ML UDC GT SCH (17:14)
[2017-06-26] MEDS ORDERED: ACETAMINOPHEN 650 MG/20.3 ML UDC GT PRN (17:30)
--- NOTE | 2017-06-26 19:14 | NUR ---
RT VENT PLUGGED IN RED OUTLET BAG AT [facility] TRACH INTACH AND SECURED TX GIVEN NO ADVERSE REACTION NOTED ATT SX MODERATE THICK PALE YELLOW SECRETIONS
--- NOTE | 2017-06-26 19:30 | NUR ---
TELE1/RN AM SHIFT END NOTES NO ACUTE CHANGE OF CONDITION NOTED DURING THE SHIFT EXCEPT FOR ELEVATED TEMP. LAST CHECK @ 99.8 ORAL. ALL NEEDS MET. PT ENDORSED TO PM NURSE TO CONTINUE CARE. CL WITHIN REACHED AND SAFETY MAINTAINED.
[2017-06-26 20:00] VITALS: BP 81/52
--- NOTE | 2017-06-26 20:00 | NUR ---
RN NOTES RECEIVED PATIENT COMFORTABLY RESTING IN BED WITH NO DISTRESS NOTED. BREATHING EVEN AND UNLABORED. VENT SETTING WELL TOLERATED. VITAL SIGNS WNL. NO PHYSICAL MANIFESTATION OF PAIN OR DISCOMFORT. GTUBE IN PLACE AND INTACT. FEEDING WELL TOLERATED. HOB ELEVATED. NEEDS ATTENDED. WILL CONTINUE TO MONITOR.
--- NOTE | 2017-06-26 20:06 | NUR ---
RCVD PT ON VENT WITH NOTED SETTINGS. BREATHING TX GIVEN PER MD'S ORDER, NO ADVERSE REACTION NOTED. SUCTIONED MODERATE AMOUNT OF YELLOW THICK SECRETIONS. VENT PLUGGED INTO RED OUTLET, VENT ALARM WORKING AND AUDIBLE. AMBU BAG AT BEDSIDE, WILL CONTINUE TO MONITOR THE PT.
[2017-06-26] MEDS: METOPROLOL TARTRATE 50 MG TABLET GT SCH (22:00)
[2017-06-26] MEDS ORDERED: INSULIN GLARGINE, 100 UNIT/ML CARTRIDGE SQ SCH ×2 (22:00)
[2017-06-26] MEDS: HYDROCODONE/APAP 5/325MG 1 EACH TABLET GT SCH (22:03)
[2017-06-26] MEDS: HEPARIN SODIUM, PORCINE 5000 UNITS/1 ML VIAL SQ SCH (22:10)
[2017-06-26] MEDS: NEOMY SULF/BACITRAC ZN/POLY 15 GM TUBE TP SCH (22:23)
[2017-06-26] MEDS: INSULIN GLARGINE, 100 UNIT/ML CARTRIDGE SQ SCH (22:25)
[2017-06-27] VITALS: BP 108/50
[2017-06-27] MEDS: BLOOD SUGAR DIAGNOSTIC 1 EACH STRIP IN SCH ×5 (00:01→23:08)
[2017-06-27] MEDS: METOCLOPRAMIDE HCL 10 MG/10 ML UDC GT SCH ×5 (00:09→23:10)
[2017-06-27] MEDS: IPRATROPIUM NEB FS 0.5 MG/2.5 ML AMPUL.NEB NEB SCH ×4 (01:48→19:16)
[2017-06-27] MEDS: ALBUTEROL FS 2.5 MG/3 ML VIAL.NEB NEB SCH ×4 (01:48→19:16)
[2017-06-27 04:00] VITALS: BP 147/55
[2017-06-27] MEDS: PIPERACILLIN /TAZOBACTAM 2.25 G in IV D5W 50 ML IV SCH (05:46)
[2017-06-27] MEDS: INSULIN REGULAR, HUMAN 100 UNIT/ML 3 ML VIAL SQ PRN ×3 (05:49→23:07)
--- NOTE | 2017-06-27 06:41 | NUR ---
RN NOTES PATIENT IN BED RESTING COMFORTABLY, NO DISTRESS NOTED. BREATHING EVEN AND UNLABORED. NO SIGNIFICANT CHANGE OF CONDITION. NO SIGN OR SYMPTOM OF PAIN. VITAL SIGNS WNL. KEPT CLEAN AND DRY. WILL ENDORSE TO AM SHIFT FOR CONTINUITY OF CARE.
[2017-06-27] MEDS: PROSOURCE / PROSTAT (PYXIS) 30 ML UDC GT SCH ×5 (07:00→20:42)
--- NOTE | 2017-06-27 07:30 | NUR ---
Received pt. in bed.no s/s of distress.breathing even and unlabored.safety measures in place.bed in low and locked position.will continue to monitor for changes.
[2017-06-27 08:00] VITALS: BP 155/75
[2017-06-27 08:16] LABS: CALCIUM, SERUM 9.3 mg/dL (8.5-10.1); CREATININE 3.9 mg/dL (0.6-1.3)
[2017-06-27 08:28] LABS: POTASSIUM 4.2 mmol/L (3.5-5.1)
[2017-06-27] MEDS: HEPARIN SODIUM, PORCINE 5000 UNITS/1 ML VIAL SQ SCH ×2 (08:51→21:09)
[2017-06-27] MEDS: PANTOPRAZOLE 40 MG/PACK PACK GT SCH (08:52)
[2017-06-27] MEDS: HYDROCODONE/APAP 5/325MG 1 EACH TABLET GT SCH ×2 (08:52→20:36)
[2017-06-27] MEDS: ASCORBIC ACID 500 MG TABLET GT SCH (08:52)
[2017-06-27] MEDS: VIT B CMPLX 3/FA/VIT C/BIOTIN 1 TAB TABLET GT SCH (08:52)
[2017-06-27] MEDS: LACTOBACILLUS RHAMNOSUS GG 1 EACH CAP.SPRINK GT SCH ×2 (08:52→17:54)
[2017-06-27] MEDS: HYDROGEL DRESSING 90 GM TUBE TP SCH (08:53)
[2017-06-27] MEDS: POLYVINYL ALCOHOL 15 ML BOTTLE EACHEYE SCH ×2 (08:53→20:43)
[2017-06-27] MEDS: NEOMY SULF/BACITRAC ZN/POLY 15 GM TUBE TP SCH ×2 (08:53→20:42)
[2017-06-27] MEDS: INSULIN GLARGINE, 100 UNIT/ML CARTRIDGE SQ SCH ×2 (09:36→23:01)
[2017-06-27 12:00] VITALS: BP 107/95
[2017-06-27] MEDS: PIPERACILLIN /TAZOBACTAM 2.25 G in IV NS 0.9% 50 ML IV SCH ×2 (14:23→22:23)
[2017-06-27 16:00] VITALS: BP 117/62
[2017-06-27] MEDS: hydrALAZINE HCL 25 MG TABLET GT SCH (17:54)
--- NOTE | 2017-06-27 19:20 | NUR ---
RECEIVED PT IN BED, ASLEEP BUT EASILY AROUSABLE, NON VERBAL, IN NO ACUTE DISTRESS. PT CONTINUES TO RECEIVE G-TUBE FEEDING ORDERED, TOLERATING WELL. ALL PATIENT'S ATTENDED TO AT THIS TIME. WILL CONTINUE TO MONITOR.
[2017-06-27 20:00] VITALS: BP 158/62
[2017-06-27] MEDS: METOPROLOL TARTRATE 50 MG TABLET GT SCH (21:14)
[2017-06-28] VITALS: BP 160/64
[2017-06-28] MEDS: ALBUTEROL FS 2.5 MG/3 ML VIAL.NEB NEB SCH ×3 (00:34→14:02)
[2017-06-28] MEDS: IPRATROPIUM NEB FS 0.5 MG/2.5 ML AMPUL.NEB NEB SCH ×3 (00:35→14:02)
[2017-06-28 04:00] VITALS: BP 153/54
[2017-06-28] MEDS: PIPERACILLIN /TAZOBACTAM 2.25 G in IV NS 0.9% 50 ML IV SCH ×2 (05:00→14:24)
[2017-06-28] MEDS: METOCLOPRAMIDE HCL 10 MG/10 ML UDC GT SCH ×3 (05:00→17:52)
[2017-06-28] MEDS: BLOOD SUGAR DIAGNOSTIC 1 EACH STRIP IN SCH ×3 (05:01→17:48)
[2017-06-28] MEDS: INSULIN REGULAR, HUMAN 100 UNIT/ML 3 ML VIAL SQ PRN ×3 (05:44→18:09)
[2017-06-28] MEDS: PROSOURCE / PROSTAT (PYXIS) 30 ML UDC GT SCH ×3 (06:15→17:53)
--- NOTE | 2017-06-28 06:27 | NUR ---
AMPOULE EXAMINER CLOSING NOTE PATIENT IN BED, ASLEEP BUT EASILY AROUSABLE, ON MECH VENT, IN STABLE CONDITION AND IN NO ACUTE DISTRESS. WILL ENDORSE TO AM SHIFT NURSE FOR CONTINUITY OF CARE.
[2017-06-28 07:02] LABS: CALCIUM, SERUM 9.6 mg/dL (8.5-10.1); CREATININE 3.3 mg/dL (0.6-1.3); POTASSIUM 4.5 mmol/L (3.5-5.1)
--- NOTE | 2017-06-28 07:46 | NUR ---
CONCRETE SWIMMING POOL INSTALLER NOTE: RECEIVED PATIENT IN BED, ASLEEP AND NOT ON ANY FORM OF DISTRESS. HOB ELEVATED. VENT-TRACH DEPENDENT SATURATING 100%. RESPIRATION IS EVEN AND UNLABORED. (R) FA AV SHUNT NOTED W/ DRESSING + BRUIT AND THRILL. (L) UA IV LINE INTACT W/ TRANSPARENT DRESSING. GT SITE INTACT W/ DRESSING. ON ICT DEVELOPMENT MANAGER SR=83. GT FEEDING OF RENAL NOVASOURCE@35CC/HR TOLERATING IT. BED ALARM AND LOCKED AT ALL TIMES. CALL LIGHT WITHIN REACH. .
[2017-06-28 08:00] VITALS: BP 121/59
[2017-06-28] MEDS: PANTOPRAZOLE 40 MG/PACK PACK GT SCH (08:25)
[2017-06-28] MEDS: HYDROCODONE/APAP 5/325MG 1 EACH TABLET GT SCH (08:40)
[2017-06-28] MEDS: ASCORBIC ACID 500 MG TABLET GT SCH (08:41)
[2017-06-28] MEDS: VIT B CMPLX 3/FA/VIT C/BIOTIN 1 TAB TABLET GT SCH (08:41)
[2017-06-28] MEDS: LACTOBACILLUS RHAMNOSUS GG 1 EACH CAP.SPRINK GT SCH ×2 (08:41→17:52)
[2017-06-28] MEDS: HEPARIN SODIUM, PORCINE 5000 UNITS/1 ML VIAL SQ SCH (08:43)
[2017-06-28] MEDS: POLYVINYL ALCOHOL 15 ML BOTTLE EACHEYE SCH (08:45)
[2017-06-28] MEDS: CADEXOMER IODINE 40 GM TUBE TP SCH (08:46)
[2017-06-28] MEDS: NEOMY SULF/BACITRAC ZN/POLY 15 GM TUBE TP SCH (08:47)
[2017-06-28] MEDS: HYDROGEL DRESSING 90 GM TUBE TP SCH (08:55)
[2017-06-28] MEDS ORDERED: METOPROLOL TARTRATE 50 MG TABLET GT SCH (09:00)
[2017-06-28] MEDS ORDERED: hydrALAZINE HCL 25 MG TABLET GT SCH (09:00)
[2017-06-28] MEDS: INSULIN GLARGINE, 100 UNIT/ML CARTRIDGE SQ SCH (09:11)
[2017-06-28] MEDS ORDERED: RENAL NOVASOURCE 1,000 ML BOTTLE GT SCH (11:30)
[2017-06-28 12:00] VITALS: BP 125/50
--- NOTE | 2017-06-28 15:30 | NUR ---
RN M/S NOTE: WOUND CULTURE OF THE SACRUM AND (R) 2ND TOE DONE. SENT SPECIMEN TO THE LAB.
[2017-06-28 16:00] VITALS: BP 144/59
--- NOTE | 2017-06-28 17:48 | NUR ---
RT NOTE PATIENT RECEIVED ON MECHANICAL VENTILATION. PATIENT IS TRACHED. AMBU BAG @ BEDSIDE. SX DONE T/O SHIFT, TRACH SECURED AND PATENT. SP02 > 92%. NO SOB NOTED. ALARMS ON AND AUDIBLE. HME REPLACED. PULSE OX PROBE CONNECTED AND WORKING WELL. Addendum: 06/28/17 at 1748 by CARI TRIANA RT Amended: Links added.
[2017-06-28 17:53] VITALS: BP 145/63
[2017-06-28] MEDS: hydrALAZINE HCL 25 MG TABLET GT SCH (17:53)
--- NOTE | 2017-06-28 18:15 | NUR ---
MEAT PROCESSING CENTER MANAGER NOTE: PATIENT REMAINED ON STABLE CONDITION, NO SOB NOTED. VENT-TRACH DEPENDENT. SATURATING WELL AT 100%. (L) UA IV LINE NOTED PATENT AND INTACT. GT FEEDING OF RENAL NOVASOURCE@25CC/HR WELL TOLERATED. PATIENT WAS TRANSFERRED TO [facility] AND REPORT WAS GIVEN TO NED WINTER FOR CONTINUITY OF CARE. SHE WAS INFORMED THAT THE PATIENT WAS TOLERATING WELL HER GT FEEDING. AFEBRILE DURING THE SHIFT. NO S/S OF PAIN OR DISCOMFORT. HOB ELEVATED AT ALL TIMES. DISCHARGE INSTRUCTION WAS PROVIDED TO NED WINTER FOR CONTINUITY OF CARE. TELEMONITOR SHOWED SR=85.
== END 2017-06-28 18:00 | DRG 720 ==
LOC: ER 10:29 → TELE-TD 16:41 → TELE1 06-26 10:36
PROVIDERS: ADMIT Internal Medicine Nephrology; ATTEND Internal Medicine Nephrology
PROC: 5A1D70Z Performance of Urinary Filtration, Intermittent, Less than 6 Hours Per Day (ICD-10-PCS; principal; 2017-06-25)
PROC: 5A1945Z Respiratory Ventilation, 24-96 Consecutive Hours (ICD-10-PCS; principal; 2017-06-25)
PROC: 5A1D70Z Performance of Urinary Filtration, Intermittent, Less than 6 Hours Per Day (ICD-10-PCS; 2017-06-27)
DX: A41.9 Sepsis, unspecified organism (principal); G93.1 Anoxic brain damage, not elsewhere classified; Z99.11 Dependence on respirator [ventilator] status; J96.10 Chronic respiratory failure, unspecified whether with hypoxia or hypercapnia; J18.9 Pneumonia, unspecified organism; J90 Pleural effusion, not elsewhere classified; N18.6 End stage renal disease; L89.159 Pressure ulcer of sacral region, unspecified stage; I12.0 Hypertensive chronic kidney disease with stage 5 chronic kidney disease or end stage renal disease; Z93.0 Tracheostomy status; Z99.2 Dependence on renal dialysis; Z93.3 Colostomy status; Z93.1 Gastrostomy status; R13.10 Dysphagia, unspecified; Z74.01 Bed confinement status; Z79.84 Long term (current) use of oral hypoglycemic drugs; Z79.4 Long term (current) use of insulin; M85.9 Disorder of bone density and structure, unspecified; E11.22 Type 2 diabetes mellitus with diabetic chronic kidney disease; E11.51 Type 2 diabetes mellitus with diabetic peripheral angiopathy without gangrene; Z89.512 Acquired absence of left leg below knee; L89.899 Pressure ulcer of other site, unspecified stage; D63.8 Anemia in other chronic diseases classified elsewhere; E87.1 Hypo-osmolality and hyponatremia; Z87.440 Personal history of urinary (tract) infections; K59.00 Constipation, unspecified
CPT/HCPCS: 31720; 36415; 71045-TC; 80048-TC; 80076-TC; 80202-TC; 82962-TC; 83605-TC; 84484-TC; 85025-TC; 85730-TC; 87040-TC; 87070-TC; 87081-TC; 90935-TC; 94003-TC; 94760-TC; 94762-TC; A4216; A4217; A4349; A4606; A6248; A6253; A6402; A7526; J1644; J1815; J2543; J3370; J7030; J7060; J8597; Z7610

== ENCOUNTER 2017-10-26 17:00 | Inpatient (IN) | payer MEDICAID ==
[~2017-10-26] VITALS: Ht 165.1 cm; Wt 63.1 kg
[~2017-10-26 17:00] MED LIST changes: -ALLA266C2 TP; -AMIK250V8 IV; -CALC0.253 GT; -CEFT2VIA5 IV; +GEL100GE TD; -Hydrogel Dressing TP; -INSU100I19 SQ; -IPRA0.2S49 NEB; +IPRA0.2S9 IH; -LISI-603 GT; +METO5SOL2 GT; -METO5VIA6 IV; -POVI28.4 TP; -RXGEN XX; -Renal Novasource GT; -SODI480S2 TOP; -VANC1VIA2 IV
--- NOTE | 2017-10-26 17:10 | NUR ---
PT A/O X1, NON VERBAL. POSITIVE TRACH. TOLERATING WELL. NEG SIGNS OF SOB. NEG DISTRESS. VSS. SAFETY MEASURES IN PLACE.
--- NOTE | 2017-10-26 17:56 | NUR ---
RT PT TRANSFERRED FROM SUB ACUTE TO ER FOR BLEEDING IN MOUTH. ON [facility] VENT HT-70 WITH ORDERED SETTINGS TRACH INTACT AND SECURED SHILEY 6. VENT PLUGGED IN RED OUTLET AMBU BAG AND MASK AT [facility] SX THICK YELLOW SECRETION ON TRACH AND BLOODY THICK SECRETIONS ON MOUTH. NO RESP DISTRESS WILL CONTINUE TO MONITOR
--- NOTE | 2017-10-26 18:03 | NUR ---
PAGED DR. LORAINE POE
[2017-10-26 18:13] LABS: BASOPHILS % (AUTO) 0.3 % (0.0-2.0); EOSINOPHILS % (AUTO) 1.1 % (0.0-6.0); HEMATOCRIT 29 % (33-45); HEMOGLOBIN 9.8 g/dL (11.5-14.8); LYMPHOCYTES # (AUTO) 0.8 /CMM (0.8-4.8); LYMPHOCYTES % (AUTO) 9.4 % (20.0-44.0); MEAN CORPUSCULAR HGB CONC 34 g/dl (31.0-36.0); MEAN CORPUSCULAR VOLUME 89 fL (82-100); MONOCYTES # (AUTO) 0.5 /CMM (0.1-1.30); NEUTROPHILS % (AUTO) 83.2 % (43.0-81.0); PLATELET COUNT (AUTO) 141 /CMM (150-450); RDW COEFFICIENT OF VARIATION 18.8 (11.5-15.0); WHITE BLOOD COUNT (AUTO) 8.4 K/uL (4.3-11.0)
[2017-10-26 18:23] LABS: INR 0.88 (0.85-1.15)
[2017-10-26 18:26] LABS: CREATININE 3.5 mg/dL (0.6-1.3); POTASSIUM 4.2 mmol/L (3.5-5.1)
--- NOTE | 2017-10-26 20:10 | NUR ---
REPORT GIVEN TO SUB ACUTE UNITE BY KATY REBOLLEDO.
--- NOTE | 2017-10-26 21:32 | NUR ---
MILLY POE FOR ADMITTING
--- NOTE | 2017-10-26 22:10 | NUR ---
NEW ADMISSION NOTES PT RECEIVED FROM ER VIA GURNEY ACCOMPANIED BY STAFF, NON VERBAL, BED BOUND. NO S/S OF PAIN, NO ACUTE DISTRESS, NO SOB NOTED. ON TELE MONITORING WITH SR 71. GT IN PLACE, WILL START GTF ORDERED BY MD. DRESSING INTACT PATENT, PLACEMENT & PATENCY CHECKED. IV ACCESS TO LUR, SL, INTACT PATENT. AV FISTULA TO RFA, DRESSING INTACT. COLOSTOMY BAG IN PLACE. PT HAS LEFT KNEE AMPUTATED. UPPER EXT CONTRACTED. ON VENT WITH SETTINGS ORDERED BY MD, SATTING 100% 2THIS TIME. NO GUM/TEETH BLEEDING NOTED @ THIS TIME. PRESSURE WAS APPLIED TO GUM/TOOTH AREA WHICH WAS BLEEDING BEFORE ADMISSION IN ER. BED IN LOW LOCKED POSITION. CALL LIGHT WITHIN REACH. HOB ELEVATED. ALL BELONGINGS ACCOUNTED FOR & DOCUMENTED BY GEODETIC SURVEYOR. BODY CHECK DONE & PHOTOS PLACED IN THE CHART. MD MADE AWARE WITH NEW ORDERS, NOTED & CARRIED OUT. WILL CONTINUE TO MONITOR CLOSELY.
[2017-10-26 22:20] VITALS: BP 146/73
[2017-10-27] VITALS (7 sets, daily range): BP systolic 123–169; BP diastolic 55–86
[2017-10-27] MEDS ORDERED: DEXTROSE 50%-WATER 50 ML DISP.SYRIN IV PRN
[2017-10-27] MEDS: BLOOD SUGAR DIAGNOSTIC 1 EACH STRIP IN SCH ×4 (00:37→18:05)
[2017-10-27] MEDS: INSULIN GLARGINE, 100 UNIT/ML CARTRIDGE SQ SCH ×2 (00:40→23:11)
[2017-10-27] MEDS: INSULIN REGULAR, HUMAN 100 UNIT/ML 3 ML VIAL SQ PRN ×4 (00:42→18:08)
[2017-10-27] MEDS: IPRATROPIUM NEB FS 0.5 MG/2.5 ML AMPUL.NEB NEB SCH ×4 (00:49→20:13)
[2017-10-27] MEDS: ALBUTEROL FS 2.5 MG/3 ML VIAL.NEB NEB SCH ×4 (00:49→20:13)
[2017-10-27] MEDS ORDERED: NEPRO 1,000 ML BOTTLE GT PRN (01:00)
[2017-10-27 06:48] LABS: BASOPHILS % (AUTO) 0.2 % (0.0-2.0); EOSINOPHILS % (AUTO) 0.7 % (0.0-6.0); HEMATOCRIT 32 % (33-45); HEMOGLOBIN 10.5 g/dL (11.5-14.8); LYMPHOCYTES # (AUTO) 1.1 /CMM (0.8-4.8); LYMPHOCYTES % (AUTO) 12.2 % (20.0-44.0); MEAN CORPUSCULAR HGB CONC 33 g/dl (31.0-36.0); MEAN CORPUSCULAR VOLUME 91 fL (82-100); MONOCYTES # (AUTO) 1.1 /CMM (0.1-1.30); MONOCYTES % (AUTO) 12.4 % (2.0-12.0); NEUTROPHILS # (AUTO) 6.7 /CMM (1.8-8.9); NEUTROPHILS % (AUTO) 74.5 % (43.0-81.0); PLATELET COUNT (AUTO) 133 /CMM (150-450); RDW COEFFICIENT OF VARIATION 19.7 (11.5-15.0); RED BLOOD CELL COUNT(AUTO) 3.52 MIL/uL (4.0-5.2)
[2017-10-27 07:07] LABS: CALCIUM, SERUM 8.9 mg/dL (8.5-10.1); CREATININE 3.8 mg/dL (0.6-1.3); POTASSIUM 4.6 mmol/L (3.5-5.1)
--- NOTE | 2017-10-27 07:10 | NUR ---
ROLL REPAIRER CLOSING NOTES PT RESTING IN BED, NON VERBAL, BED BOUND. NO S/S OF PAIN, NO ACUTE DISTRESS, NO SOB NOTED. ON TELE MONITORING WITH SR 82. GT IN PLACE, RUNNING WITH NEPRO @ 35 ML/HR. DRESSING INTACT PATENT, PLACEMENT & PATENCY CHECKED. IV ACCESS TO LUR, SL, INTACT PATENT. AV FISTULA TO RFA, DRESSING INTACT. COLOSTOMY BAG IN PLACE. UPPER EXT'S CONTRACTED. ON VENT WITH SETTINGS ORDERED BY MD, SATTING 99% @ THIS TIME. NO GUM/TEETH BLEEDING NOTED SINCE ADMISSION. BED IN LOW LOCKED POSITION. CALL LIGHT WITHIN REACH. HOB ELEVATED. ENDORSED TO AM RN FOR CONTINUITY OF CARE.
--- NOTE | 2017-10-27 07:30 | NUR ---
CONDUCTOR SYMPHONIC ORCHESTRA OPENING NOTES RECEIVED PATIENT IN BED, RESTING. NON VERBAL. NO RESPIRATORY DISTRESS. ON VENT WITH O2SAT 100%. ON GT FEEDING - NEPRO @ 35ML/HR - INTACT AND INFUSING WELL. IV ON ALEXSANDRA #20 SL INTACT AND PATENT. RFA AV FISTULA PLACEMENT AND PATENCY CHECKED. COLOSTOMY BAG IN PLACE. NO BLEEDING FROM MOUTH NOTED. UPPER EXTREMITIES CONTRACTED. ON CONTACT ISOLATION FOR MRSA IN SACRAL WOUND. ASPIRATION PRECAUTIONS IN PLACE. HOB ELEVATED. CALL LIGHT WITHIN REACH. BED IN LOWEST LOCKED POSITION. WILL CONTINUE TO MONITOR.
[2017-10-27] MEDS ORDERED: ALLA266C2 TP (08:16)
[2017-10-27] MEDS ORDERED: POVI480S2 TP (08:16)
[2017-10-27] MEDS ORDERED: AMOX125S5 GT (08:16)
[2017-10-27] MEDS ORDERED: SEVE800T8 GT (08:16)
[2017-10-27] MEDS ORDERED: SILV20CR13 TP (08:16)
[2017-10-27] MEDS ORDERED: SULF473O3 GT (08:16)
--- NOTE | 2017-10-27 19:00 | NUR ---
OPERATIONS EXAMINER CLOSING NOTES PATIENT IN BED RESTING. AROUSABLE TO TOUCH/LIGHT PAIN. NONVERBAL. BREATHING EVEN AND UNLABORED. NO RESPIRATORY DISTRESS. ON VENT WITH O2SAT 100%. GT FEEDING IN PLACE - INFUSING NEPRO AT 35CC/HR. TOLERATING WELL. HAD DIALYSIS - TOLERATED WELL. REMOVED 2L. NO FURTHER BLEEDING FROM GUM/TEETH. S/P RIGHT FOOT DEBRIDEMENT DONE BY DR. SAUCEDO. ALL OTHER NEEDS ATTENDED TO. TURNED AND REPOSITIONED EVERY 2 HOURS. OFFLOADING BONY PROMINENCES. HOB ELEVATED. CALL LIGHT WITHIN REACH. BED ON LOWEST LOCKED POSITION. WILL ENDORSE TO ONCOMING RN FOR CONTINUITY OF CARE.
--- NOTE | 2017-10-27 19:20 | NUR ---
RN OPENING NOTES RECEIVED PT IN BED, ON TRACH, NON VERBAL AND IN NO ACUTE DISTRESS. NO NOTED BLEEDING ON AV FISTULA ON RFA AND NO BLEEDING FROM GUMS. PT CONTINUES TO RECEIVE GTF ORDERED AND IS ON [facility] VENT. ALL PATIENT'S NEEDS ATTENDED TO AT THIS TIME. PLACED BED IN LOW POSITION AND LOCKED IN PLACE. CALL LIGHT IN EASY REACH. WILL CONTINUE TO MONITOR.
--- NOTE | 2017-10-27 20:45 | NUR ---
RN NOTES PATIENT NOTED WITH ELEVATED BP. PAGED MD FOR ORDERS. WAITING FOR CALL BACK.
--- NOTE | 2017-10-27 21:40 | NUR ---
RN NOTES SPOKE WITH DR. SAAD MD WITH ORDERS TO CONTINUE PATIENT'S MEDICATIONS FROM [facility]. ALL ORDERS NOTED AND CARRIED OUT.
[2017-10-27] MEDS ORDERED: CLONIDINE HCL 0.1 MG TABLET GT PRN (22:00)
[2017-10-27] MEDS ORDERED: METOPROLOL TARTRATE 50 MG TABLET GT ONE (22:30)
[2017-10-28 00:06] VITALS: BP 165/83
[2017-10-28] MEDS: BLOOD SUGAR DIAGNOSTIC 1 EACH STRIP IN SCH ×4 (00:26→17:37)
[2017-10-28] MEDS: INSULIN REGULAR, HUMAN 100 UNIT/ML 3 ML VIAL SQ PRN ×3 (00:28→12:37)
[2017-10-28] MEDS: IPRATROPIUM NEB FS 0.5 MG/2.5 ML AMPUL.NEB NEB SCH ×4 (01:50→19:57)
[2017-10-28] MEDS: ALBUTEROL FS 2.5 MG/3 ML VIAL.NEB NEB SCH ×4 (01:50→19:57)
[2017-10-28 04:27] VITALS: BP 153/72
--- NOTE | 2017-10-28 06:30 | NUR ---
RN CLOSING NOTES PATIENT IN BED, ASLEEP BUT EASILY AROUSABLE. PT NOTED WITH NO SOB, IN NO ACUTE DISTRESS AND WITH NO FACIAL GRIMACING. PT NOTED WITH EPISODE OF GUM BLEEDING, APPLIED PRESSURE. ALL PATIENT'S NEEDS ATTENDED TO THROUGHOUT THE SHIFT, TURNED AND REPOSITIONED [id number]. GTF INFUSING ORDERED. PLACED BED IN LOW POSITION AND LOCKED IN PLACE. WILL ENDORSE TO AM SHIFT NURSE FOR CONTINUITY OF CARE.
--- NOTE | 2017-10-28 07:30 | NUR ---
RN OPENING NOTES RECEIVED PATIENT IN BED WITH EYES OPEN. ALERT AND ORIENTED X1. NON-VERBAL. IN STABLE CONDITION. BREATHING EVEN AND UNLABORED. ON VENT. PATIENT WITH GTF - NEPRO @ 345ML/HR- INFUSING AND TOLERATING WELL. IV LINE ON ALEXSANDRA #20 PATENT AND INTACT. RFA AV FISTULA PATENT WITH DRESSING INTACT. NO SIGNS OF PAIN OR DISCOMFORT. NO FACIAL GRIMACING. NO SIGNS OF BLEEDING. ALL OTHER NEEDS ATTENDED TO. CALL LIGHT WITHIN REACH. BED ON LOWEST LOCKED POSITION.
[2017-10-28 08:00] VITALS: BP 164/54
--- NOTE | 2017-10-28 08:52 | NUR ---
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 LEFT LEG AKA STUMP CLEAR. ALL SKIN PROTECTION AND WOUND CARE RECOMMENDATIONS DISCUSSED WITH NURSING STAFF. RECOMMEND SURGICAL FOLLOW UP FOR RT INDEX FINGER AND SACRAL WOUNDS. WILL SEE PRN. PT ON FIRST STEP MATTRESS. ALL SKIN PROTECTION MEASURES IN PLACE. MD IN AGREEMENT WITH PLAN OF CARE. Addendum: 10/28/17 at 0854 by RICHARD DANG WNDNU Amended: Links added.
[2017-10-28] MEDS: METOPROLOL TARTRATE 50 MG TABLET GT SCH ×2 (08:57→12:51)
[2017-10-28] MEDS ORDERED: HYDROGEL DRESSING 90 GM TUBE TP SCH (09:00)
[2017-10-28] MEDS ORDERED: DAKINS QUARTER STRENGTH (0.125%) 480 ML BOTTLE TOP SCH (09:00)
[2017-10-28] MEDS ORDERED: Z GUARD REMEDY 2 OZ OINT TP SCH ×2 (09:00→11:00)
[2017-10-28] MEDS ORDERED: Z GUARD REMEDY 2 OZ OINT TP PRN (09:00)
[2017-10-28] MEDS ORDERED: SULFAMEHOX/TRIMETH 200-40MG/ 5 ML UDC GT SCH (10:00)
[2017-10-28] MEDS ORDERED: HYDROCODONE/APAP 5/325MG 1 EACH TABLET GT PRN (10:00)
[2017-10-28] MEDS ORDERED: MISCELLANEOUS MED 1 EA EA GT PRN (10:00)
[2017-10-28] MEDS ORDERED: HYDROGEN PEROXIDE 480 ML BOTTLE TP PRN (10:00)
[2017-10-28] MEDS ORDERED: Medication Not On Formulary EA (Insulin Glargine,Hum.rec.anlog (Lantus) 20 UNIT) SQ SCH (10:00)
[2017-10-28] MEDS ORDERED: INSULIN REGULAR, HUMAN 100 UNIT/ML 3 ML VIAL SQ PRN (10:00)
[2017-10-28] MEDS ORDERED: SILVER SULFADIAZINE CREAM 400 GM JAR TP SCH (10:00)
[2017-10-28] MEDS ORDERED: DEXTROSE 50%-WATER 50 ML DISP.SYRIN IV PRN (10:00)
[2017-10-28] MEDS: CLOTRIMAZOLE 1% 15 GM TUBE TP SCH ×2 (10:49→16:56)
[2017-10-28] MEDS ORDERED: ACETAMINOPHEN 650 MG/20.3 ML UDC GT PRN (11:00)
[2017-10-28] MEDS ORDERED: CADEXOMER IODINE 40 GM TUBE TP PRN (11:00)
[2017-10-28] MEDS ORDERED: HYDROCODONE/APAP 5/325MG 1 EACH TABLET GT SCH (11:00)
[2017-10-28] MEDS ORDERED: CADEXOMER IODINE 40 GM TUBE TP SCH (11:00)
[2017-10-28] MEDS ORDERED: CLONIDINE HCL 0.1 MG TABLET GT PRN (11:30)
[2017-10-28] MEDS: METOCLOPRAMIDE HCL 10 MG/10 ML UDC GT SCH ×2 (11:51→17:05)
[2017-10-28] MEDS: PROSOURCE / PROSTAT (PYXIS) 30 ML UDC GT SCH ×3 (11:51→17:05)
[2017-10-28 12:00] VITALS: BP 156/70
[2017-10-28] MEDS ORDERED: BLOOD SUGAR DIAGNOSTIC 1 EACH STRIP IN SCH (12:00)
[2017-10-28] MEDS ORDERED: NEOMY SULF/BACITRAC ZN/POLY 15 GM TUBE TP SCH (12:00)
[2017-10-28] MEDS ORDERED: NEPRO 1,000 ML BOTTLE GT PRN (12:00)
[2017-10-28] MEDS ORDERED: NYSTATIN TOP POWDER 15 GM BOTTLE TP SCH (12:00)
[2017-10-28] MEDS ORDERED: LACTULOSE 10 G/15 ML UDC (PYXIS) GT PRN (12:00)
[2017-10-28] MEDS ORDERED: POLYVINYL ALCOHOL 15 ML BOTTLE EACHEYE PRN (12:00)
[2017-10-28] MEDS ORDERED: POLYVINYL ALCOHOL 15 ML BOTTLE EACHEYE SCH (12:00)
[2017-10-28] MEDS: SEVELAMER CARBONATE 0.8 GM POWD.PACK GT SCH ×2 (12:44→16:55)
[2017-10-28] MEDS ORDERED: IPRATROPIUM NEB FS 0.5 MG/2.5 ML AMPUL.NEB IH SCH (13:30)
[2017-10-28] MEDS ORDERED: ALBUTEROL FS 2.5 MG/3 ML VIAL.NEB NEB SCH (13:30)
--- NOTE | 2017-10-28 13:42 | NUR ---
PT MALIK'D ON MECHANICAL VENT. TXS GIVEN AND NO ADVERSE REACTION NOTED. SX DONE T/O SHIFT. PT TRACH PATENT AND SECURE. AMBU BAG AT BEDSIDE. VENT PLUGGED INTO RED OUTLET. ALARMS ARE SET AND AUDIBLE. WILL CONTINUE TO MONITOR. Addendum: 10/28/17 at 1345 by BETTY VILLEGAS RT Amended: Links added.
[2017-10-28] MEDS ORDERED: AMOXICILLIN 125 MG/5 ML BOTTLE GT SCH (14:00)
[2017-10-28 16:00] VITALS: BP 168/73
[2017-10-28 16:55] VITALS: BP 168/73
[2017-10-28] MEDS ORDERED: LACTOBACILLUS RHAMNOSUS GG 1 EACH CAP.SPRINK GT SCH (17:00)
[2017-10-28] MEDS ORDERED: hydrALAZINE HCL 25 MG TABLET GT SCH (17:00)
--- NOTE | 2017-10-28 18:55 | NUR ---
BOWLING BALL MARKER CLOSING NOTES PATIENT IN BED ASLEEP. AROUSABLE TO TOUCH/LIGHT PAIN. NONVERBAL. BREATHING EVEN AND UNLABORED. NO RESPIRATORY DISTRESS. ON VENT WITH O2SAT 100%. NO SIGNS OF PAIN OR DISCOMFORT. NO FACIAL GRIMACING. GT FEEDING IN PLACE - INFUSING NEPRO AT 35CC/HR. TOLERATING WELL. NO FURTHER BLEEDING FROM GUM/TEETH. WILL BE DISCHARGED TO [facility] DURING WILDLIFE OFFICER WITH ORDERS TO CONTINUE MEDICATIONS. PATIENT POSITIVE FOR MRSA IN THE NARES WITH NEW ORDER FOR BACTROBAN. ALL OTHER NEEDS ATTENDED TO. TURNED AND REPOSITIONED EVERY 2 HOURS. OFFLOADING BONY PROMINENCES. HOB ELEVATED. CALL LIGHT WITHIN REACH. BED ON LOWEST LOCKED POSITION. WILL ENDORSE TO ONCOMING RN FOR CONTINUITY OF CARE.
--- NOTE | 2017-10-28 19:05 | NUR ---
RN OPENING NOTES RECEIVED REPORT THAT PATIENT WILL BE DISCHARGED TODAY. RECEIVED PT IN BED, ASLEEP BUT EASILY AROUSABLE, NOTED TO BE IN NO ACUTE DISTRESS. NO GUM/TOOTH BLEEDING NOTED AT THIS TIME. PT WITH TRACH ON VENT WITH O2 SAT @ 100%. ALL PATIENT'S NEEDS ATTENDED TO AT THIS TIME. PLACED BED IN LOW POSITION AND LOCKED IN PLACE. WAITING FOR ROOM TO BE AVAILABLE IN [facility]. WILL CONTINUE TO MONITOR PT.
--- NOTE | 2017-10-28 20:21 | NUR ---
RN NOTES REPORT GIVEN TO ROSE MARIE MARINO.
[2017-10-28] MEDS ORDERED: HEPARIN SODIUM, PORCINE 5000 UNITS/1 ML VIAL SQ SCH (21:00)
[2017-10-28] MEDS ORDERED: MUPIROCIN OINT 2% 22 GM TUBE SCH (21:00)
--- NOTE | 2017-10-28 21:05 | NUR ---
ONCOLOGY CONSULTANT NOTES PATIENT EXITED UNIT VIA GURNEY IN STABLE CONDITION. NO BLEEDING FROM TEETH/GUMS. TRANSFERRED TO SUB AC[facility] UNIT, ACCOMPANIED BY RN AND RT.
[2017-10-28] MEDS ORDERED: METOPROLOL TARTRATE 50 MG TABLET GT SCH (22:00)
[2017-10-29] MEDS ORDERED: PANTOPRAZOLE 40 MG/PACK PACK GT SCH (06:00)
[2017-10-29] MEDS ORDERED: INSULIN GLARGINE, 100 UNIT/ML CARTRIDGE SQ SCH (09:00)
[2017-10-29] MEDS ORDERED: ASCORBIC ACID 500 MG TABLET GT SCH (09:00)
[2017-10-29] MEDS ORDERED: VIT B CMPLX 3/FA/VIT C/BIOTIN 1 TAB TABLET GT SCH (09:00)
[2017-10-30] MEDS ORDERED: METOPROLOL TARTRATE 50 MG TABLET GT SCH (09:00)
[2017-10-30] MEDS ORDERED: hydrALAZINE HCL 25 MG TABLET GT SCH (09:00)
== END 2017-10-28 21:05 | DRG 951 ==
LOC: ER 17:04 → TELE 21:55
PROVIDERS: ADMIT Internal Medicine Nephrology; ATTEND Internal Medicine Nephrology
PROC: 5A1945Z Respiratory Ventilation, 24-96 Consecutive Hours (ICD-10-PCS; principal; 2017-10-26)
PROC: 5A1D70Z Performance of Urinary Filtration, Intermittent, Less than 6 Hours Per Day (ICD-10-PCS; principal; 2017-10-26)
PROC: 0LBV0ZZ Excision of Right Foot Tendon, Open Approach (ICD-10-PCS; 2017-10-27)
DX: K03.81 Cracked tooth (principal); G93.1 Anoxic brain damage, not elsewhere classified; G93.49 Other encephalopathy; K31.6 Fistula of stomach and duodenum; Z99.11 Dependence on respirator [ventilator] status; N18.6 End stage renal disease; J18.9 Pneumonia, unspecified organism; I12.0 Hypertensive chronic kidney disease with stage 5 chronic kidney disease or end stage renal disease; J96.11 Chronic respiratory failure with hypoxia; Z93.0 Tracheostomy status; R13.10 Dysphagia, unspecified; E11.22 Type 2 diabetes mellitus with diabetic chronic kidney disease; E87.1 Hypo-osmolality and hyponatremia; E11.51 Type 2 diabetes mellitus with diabetic peripheral angiopathy without gangrene; Z99.2 Dependence on renal dialysis; L89.899 Pressure ulcer of other site, unspecified stage; E11.621 Type 2 diabetes mellitus with foot ulcer; Z93.1 Gastrostomy status; Z74.01 Bed confinement status; Z89.612 Acquired absence of left leg above knee; Z93.3 Colostomy status; Z87.440 Personal history of urinary (tract) infections; Z79.4 Long term (current) use of insulin; Z79.01 Long term (current) use of anticoagulants; Z79.899 Other long term (current) drug therapy; K59.00 Constipation, unspecified; Z87.01 Personal history of pneumonia (recurrent); D63.8 Anemia in other chronic diseases classified elsewhere; K06.8 Other specified disorders of gingiva and edentulous alveolar ridge; E87.70 Fluid overload, unspecified
CPT/HCPCS: 31720; 36415; 80048-TC; 82962-TC; 85025-TC; 85610-TC; 87081-TC; 90935-TC; 94002-TC; 94003-TC; 94760-TC; A4606; A6248; A6253; A6402; A6403; A7526; J1815; J8597; Z7610

== ENCOUNTER 2018-04-08 11:31 | Emergency (ER) | payer MEDICAID ==
[~2018-04-08] VITALS: Ht 152.4 cm; Wt 83.9 kg
[~2018-04-08 11:31] MED LIST changes: +ACET160L33 GT; +ACID1TAB14 GT; +ALLA266C2 TP; -CADE40GE2 TP; +CEFT1VIA15 IV; -GEL100GE TD; +HYDR-4077 GT; +HYDR-4384 GT; -HYDR-552 GT; -LACT1CAP72 GT; -NEOM15OI3 TP; +POVI480S2 TP; +SEVE800T8 GT
[2018-04-08 11:35] VITALS: BP 126/64
--- NOTE | 2018-04-08 11:54 | NUR ---
RT RECD PT TRACHED INTACT AND SECURED ON [facility] VENT CAME FROM DIALYSIS FOR LOW BP. ON AC12 500 30% +5 BAG AND MASK AT HOB ALARMS ON AND AUDIBLE NO RESP DISTRESS NOTED ATT WILL CONT TO MONITOR Addendum: 04/08/18 at 1156 by LEBRON PEREZ RT Amended: Links added.
--- NOTE | 2018-04-08 11:56 | NUR ---
CALLED OFFICE OF NEHPROLOGY HYDRAULIC STRAINER OPERATOR DR MOCK WAS PAGED
--- NOTE | 2018-04-08 11:58 | NUR ---
pt brought in from dialysis center for low blood pressur 70 sysolic in room pt blood presure 127/73 at 11:44 then at 12:00 138/85 will take a thrid blood pressure before discharge spoke with rn at dialysis center will follow up with blood pressure reading. pt on vent with trach
--- NOTE | 2018-04-08 12:19 | NUR ---
called [facility] spoke with wendy report given concerning three blood pressure measurements. mikaela will accept pt back. thrid blood pressure 126/54
--- NOTE | 2018-04-08 12:29 | NUR ---
JOHN GARZA SPOKE TO DISPATCH AND STATED A TRANSPORT IS BEING SET UP FOR PATIENT TO GO BACK TO [facility] FOR DIALYSIS [place].
--- NOTE | 2018-04-08 12:34 | NUR ---
pt discharged back to facility by amelia rig # [id number]
[2018-04-08 12:35] VITALS: BP 126/64
== END 2018-04-08 12:42 | disposition home or self-care (01) ==
LOC: ER 11:32
DX: I95.9 Hypotension, unspecified (principal); E11.22 Type 2 diabetes mellitus with diabetic chronic kidney disease; I12.0 Hypertensive chronic kidney disease with stage 5 chronic kidney disease or end stage renal disease; N18.6 End stage renal disease; G93.1 Anoxic brain damage, not elsewhere classified; Z93.3 Colostomy status; Z93.1 Gastrostomy status; Z89.612 Acquired absence of left leg above knee; Z79.4 Long term (current) use of insulin
CPT/HCPCS: 99283; A4606; Z7610

== ENCOUNTER 2018-05-11 | Inpatient (IN) | payer MEDICAID ==
[~2018-05-11] VITALS: Ht 157.5 cm; Wt 83.5 kg
--- NOTE | 2018-05-12 10:15 | NUR ---
Please see resident's previous account [id number] for all assessments and nurses notes. Originally admitted on 06/25/2014; readmission 10/28/2017.
--- NOTE | 2018-05-12 10:44 | NUR ---
Please see resident's previous account [id number] Social Service assessments, evaluations and notes.
[2018-05-12] MEDS: HYDROGEN PEROXIDE 480 ML BOTTLE TP SCH ×2 (10:51→20:40)
[2018-05-12] MEDS: METOPROLOL TARTRATE 50 MG TABLET GT SCH ×2 (10:51→21:40)
[2018-05-12] MEDS: POLYVINYL ALCOHOL 15 ML BOTTLE EACHEYE SCH ×2 (10:51→20:38)
[2018-05-12] MEDS: VIT B CMPLX 3/FA/VIT C/BIOTIN 1 TAB TABLET GT SCH (10:56)
[2018-05-12] MEDS ORDERED: HYDROGEN PEROXIDE 480 ML BOTTLE TP PRN (11:00)
[2018-05-12] MEDS ORDERED: POLYVINYL ALCOHOL/POVIDONE 0.4 ML DROPERETTE EACHEYE PRN (11:00)
[2018-05-12] MEDS ORDERED: HYDROCODONE/APAP 5/325MG 1 EACH TABLET GT PRN (11:00)
[2018-05-12] MEDS ORDERED: DEXTROSE 50%-WATER 50 ML DISP.SYRIN IV PRN (11:00)
[2018-05-12] MEDS ORDERED: ACETAMINOPHEN 650 MG/20 ML UDC- SA PATIENTS-PAIN ONLY GT PRN (11:00)
[2018-05-12] MEDS ORDERED: HEPARIN SODIUM, PORCINE 5000 UNITS/1 ML VIAL SQ SCH (11:00)
[2018-05-12] MEDS ORDERED: ACETAMINOPHEN 650 MG/20 ML UDC- SA PATIENTS-FEVER ONLY GT PRN (11:00)
[2018-05-12] MEDS: MAG HYDROX/AL HYDROX/SIMETH 30 ML UDC TP SCH ×3 (11:02→22:02)
[2018-05-12] MEDS: METOCLOPRAMIDE HCL 10 MG/10 ML UDC GT SCH ×2 (11:18→20:39)
[2018-05-12] MEDS: ACETAMINOPHEN 650 MG/20 ML UDC- SA PATIENTS-PAIN ONLY GT SCH ×2 (11:18→20:39)
[2018-05-12] MEDS: PROSOURCE / PROSTAT (PYXIS) 30 ML UDC GT SCH ×4 (11:19→20:38)
[2018-05-12] MEDS: hydrALAZINE HCL 25 MG TABLET GT SCH ×2 (11:19→16:51)
[2018-05-12] MEDS: HYDROGEL DRESSING 90 GM TUBE TP SCH ×3 (11:19→20:39)
[2018-05-12] MEDS: ACIDOPHILUS/BULGARICUS 1 EACH TAB.CHEW GT SCH ×2 (11:19→16:52)
[2018-05-12] MEDS: NYSTATIN/TRIAMCIN 15 GM CREAM 15 GM TUBE TP SCH ×4 (11:19→20:40)
[2018-05-12] MEDS: ASCORBIC ACID 500 MG TABLET GT SCH (11:19)
[2018-05-12] MEDS: INSULIN REGULAR, HUMAN 100 UNIT/ML 3 ML VIAL SQ PRN ×3 (11:20→23:24)
[2018-05-12] MEDS: NYSTATIN/TRIAMCIN OINT 15 GM TUBE TP SCH ×2 (11:20→20:40)
[2018-05-12] MEDS: BLOOD SUGAR DIAGNOSTIC 1 EACH STRIP IN SCH ×3 (11:20→23:21)
[2018-05-12 11:40] VITALS: BP 147/73
[2018-05-12] MEDS: IPRATROPIUM NEB FS 0.5 MG/2.5 ML AMPUL.NEB NEB SCH ×2 (13:08→19:57)
[2018-05-12] MEDS: ALBUTEROL FS 2.5 MG/3 ML VIAL.NEB NEB SCH ×2 (13:08→19:57)
--- NOTE | 2018-05-12 18:30 | NUR ---
Resident was transferred to room 269-1. Left a message to John ([email or web address]). All belongings transferred.
[2018-05-12] MEDS: NEPRO 1,000 ML BOTTLE GT PRN (18:56)
[2018-05-12 20:00] VITALS: BP 132/57
[2018-05-12] MEDS: HEPARIN SODIUM, PORCINE 5000 UNITS/1 ML VIAL SQ SCH (20:47)
[2018-05-12] MEDS: INSULIN GLARGINE, 100 UNIT/ML CARTRIDGE SQ SCH (23:22)
[2018-05-13] MEDS: ALBUTEROL FS 2.5 MG/3 ML VIAL.NEB NEB SCH ×4 (01:54→19:59)
[2018-05-13] MEDS: IPRATROPIUM NEB FS 0.5 MG/2.5 ML AMPUL.NEB NEB SCH ×4 (01:54→19:59)
[2018-05-13] MEDS: PROSOURCE / PROSTAT (PYXIS) 30 ML UDC GT SCH ×5 (04:13→21:45)
[2018-05-13] MEDS: MAG HYDROX/AL HYDROX/SIMETH 30 ML UDC TP SCH ×4 (04:13→23:00)
[2018-05-13] MEDS: ESOMEPRAZOLE MAG TRIHYDRATE 20 MG CAPSULE.DR GT SCH (05:02)
[2018-05-13] MEDS: BLOOD SUGAR DIAGNOSTIC 1 EACH STRIP IN SCH ×3 (05:57→17:05)
[2018-05-13] MEDS: INSULIN REGULAR, HUMAN 100 UNIT/ML 3 ML VIAL SQ PRN ×2 (05:59→17:06)
[2018-05-13 07:33] VITALS: BP 165/77
--- NOTE | 2018-05-13 07:52 | NUR ---
Female trach pt received on a mechanical vent. Pt faith is secure. Vent is plugged into a red outlet, alarms are set and audible, and BMV is at bedside. Addendum: 05/13/18 at 0753 by ANNMARIE CARVER RT Amended: Links added.
[2018-05-13] MEDS: HYDROGEL DRESSING 90 GM TUBE TP SCH ×3 (09:00→21:46)
[2018-05-13] MEDS: POLYVINYL ALCOHOL 15 ML BOTTLE EACHEYE SCH ×2 (09:00→21:45)
[2018-05-13] MEDS: NYSTATIN/TRIAMCIN 15 GM CREAM 15 GM TUBE TP SCH ×4 (09:00→21:00)
[2018-05-13] MEDS: ASCORBIC ACID 500 MG TABLET GT SCH (09:00)
[2018-05-13] MEDS: VIT B CMPLX 3/FA/VIT C/BIOTIN 1 TAB TABLET GT SCH (09:00)
[2018-05-13] MEDS: HEPARIN SODIUM, PORCINE 5000 UNITS/1 ML VIAL SQ SCH ×2 (09:00→21:46)
[2018-05-13] MEDS: HYDROGEN PEROXIDE 480 ML BOTTLE TP SCH ×2 (09:00→21:46)
[2018-05-13] MEDS: METOCLOPRAMIDE HCL 10 MG/10 ML UDC GT SCH ×2 (09:00→21:45)
[2018-05-13] MEDS: ACETAMINOPHEN 650 MG/20 ML UDC- SA PATIENTS-PAIN ONLY GT SCH ×2 (09:00→21:45)
[2018-05-13] MEDS ORDERED: HYDROGEL DRESSING 90 GM TUBE TP SCH (09:00)
[2018-05-13] MEDS: NYSTATIN/TRIAMCIN OINT 15 GM TUBE TP SCH ×2 (09:00→21:00)
[2018-05-13] MEDS: ACIDOPHILUS/BULGARICUS 1 EACH TAB.CHEW GT SCH ×2 (09:00→16:59)
[2018-05-13] MEDS: INSULIN GLARGINE, 100 UNIT/ML CARTRIDGE SQ SCH ×2 (10:13→21:50)
--- NOTE | 2018-05-13 14:53 | NUR ---
tear down worker spoke to the resident's boyfriend John Woodall. He indicated that he only comes on Saturdays due to his work schedule. He stated that he can come this Thursday to sign admission paperwork and SW informed him that she will leave the paperwork with the charge nurse. LUPILLO informed him that she was also leaving the hospital and he thanked the director of social media marketing for all of her help. LUPILLO will give admission paperwork to the charge nurse prior to the weekend.
[2018-05-13] MEDS: hydrALAZINE HCL 25 MG TABLET GT SCH (16:59)
[2018-05-13] MEDS: NEPRO 1,000 ML BOTTLE GT PRN (18:36)
[2018-05-13 19:59] VITALS: BP 98/54
--- NOTE | 2018-05-13 20:30 | NUR ---
Seen by THOMAS Leija.
--- NOTE | 2018-05-13 20:48 | NUR ---
RT NOTE PATIENT RECEIVED TRACHED ON MECHANICAL VENTILATION. AMBU BAG/BACK UP TRACH @ BEDSIDE. TX GIVEN, NO ADVERSE REACTIONS NOTED. SX DONE, MODERATE THICK WHITE SECRETIONS NOTED. ALARMS ON AND AUDIBLE. PATIENT STABLE. WILL MONITOR T/O SHIFT. Addendum: 05/13/18 at 2048 by CARI TRIANA RT Amended: Links added.
[2018-05-13] MEDS: METOPROLOL TARTRATE 50 MG TABLET GT SCH (22:07)
[2018-05-14] MEDS: BLOOD SUGAR DIAGNOSTIC 1 EACH STRIP IN SCH ×4 (00:29→17:41)
[2018-05-14] MEDS: INSULIN REGULAR, HUMAN 100 UNIT/ML 3 ML VIAL SQ PRN ×4 (00:30→17:44)
[2018-05-14] MEDS: CLONIDINE HCL 0.2 MG TABLET GT PRN ×2 (00:31→05:53)
[2018-05-14] MEDS: IPRATROPIUM NEB FS 0.5 MG/2.5 ML AMPUL.NEB NEB SCH ×4 (01:50→19:33)
[2018-05-14] MEDS: ALBUTEROL FS 2.5 MG/3 ML VIAL.NEB NEB SCH ×4 (01:50→19:33)
[2018-05-14] MEDS: ESOMEPRAZOLE MAG TRIHYDRATE 20 MG CAPSULE.DR GT SCH (05:53)
[2018-05-14] MEDS: PROSOURCE / PROSTAT (PYXIS) 30 ML UDC GT SCH ×5 (05:53→21:20)
[2018-05-14] MEDS: MAG HYDROX/AL HYDROX/SIMETH 30 ML UDC TP SCH ×4 (05:53→23:40)
[2018-05-14 07:34] VITALS: BP 139/84
--- NOTE | 2018-05-14 08:20 | NUR ---
PT REC'D TRACHED ON [facility] VENT ON AC MODE. NO RESP DISTRESS OR SOB NOTED. SX'D FOR THIN MINIMAL AMT OF CLEAR SECRETIONS. TRACH PATENT AND SECURED. ALARMS ARE SET AND AUDIBLE, VENT PLUGGED INTO RED OUTLET, AMBU BAG BEDSIDE. WILL CONTINUE TO MONITOR. Addendum: 05/14/18 at 1643 by LOUISA CRUZ RT Amended: Links added.
[2018-05-14] MEDS: hydrALAZINE HCL 25 MG TABLET GT SCH ×2 (09:00→16:41)
[2018-05-14] MEDS: ASCORBIC ACID 500 MG TABLET GT SCH (09:00)
[2018-05-14] MEDS: ACIDOPHILUS/BULGARICUS 1 EACH TAB.CHEW GT SCH ×2 (09:00→16:41)
[2018-05-14] MEDS: HYDROGEN PEROXIDE 480 ML BOTTLE TP SCH ×2 (09:00→21:55)
[2018-05-14] MEDS: HYDROGEL DRESSING 90 GM TUBE TP SCH ×3 (09:00→21:55)
[2018-05-14] MEDS: METOPROLOL TARTRATE 50 MG TABLET GT SCH ×2 (09:00→22:22)
[2018-05-14] MEDS: POLYVINYL ALCOHOL 15 ML BOTTLE EACHEYE SCH ×2 (09:00→21:20)
[2018-05-14] MEDS: NYSTATIN/TRIAMCIN OINT 15 GM TUBE TP SCH ×2 (09:00→21:55)
[2018-05-14] MEDS: NYSTATIN/TRIAMCIN 15 GM CREAM 15 GM TUBE TP SCH ×4 (09:00→21:55)
[2018-05-14] MEDS: INSULIN GLARGINE, 100 UNIT/ML CARTRIDGE SQ SCH ×2 (09:00→22:22)
[2018-05-14] MEDS: ACETAMINOPHEN 650 MG/20 ML UDC- SA PATIENTS-PAIN ONLY GT SCH ×2 (09:00→21:20)
[2018-05-14] MEDS: VIT B CMPLX 3/FA/VIT C/BIOTIN 1 TAB TABLET GT SCH (09:00)
[2018-05-14] MEDS: HEPARIN SODIUM, PORCINE 5000 UNITS/1 ML VIAL SQ SCH ×2 (09:00→21:20)
[2018-05-14] MEDS: METOCLOPRAMIDE HCL 10 MG/10 ML UDC GT SCH ×2 (09:00→21:20)
--- NOTE | 2018-05-14 14:00 | NUR ---
INTERDISCIPLINARY TEAM CONFERENCE (IDT) was held today. Resident's boyfriend John was unable to attend today's IDT meeting. Dr. Morejon and the interdisciplinary team reviewed the current plan of care in detail. Orders as well as treatment and medications were reviewed. Resident will have her annual dental appointment on 06/28/[address] Savannah BENÍTEZ. Resident is stable and no new orders were given during IDT meeting.
--- NOTE | 2018-05-14 18:34 | NUR ---
Seen by THOMAS Leija, no new order given.
--- NOTE | 2018-05-14 19:34 | NUR ---
Received female trach pt a mechanical vent. Pt trach is secure. Vent is plugged into a red outlet, alarms are set and audible, and BMV is at bedside. Addendum: 05/14/18 at 1935 by ANNMARIE CARVER RT Amended: Links added.
[2018-05-14 20:24] VITALS: BP 139/65
[2018-05-15] MEDS: BLOOD SUGAR DIAGNOSTIC 1 EACH STRIP IN SCH ×5 (00:10→23:50)
[2018-05-15] MEDS: INSULIN REGULAR, HUMAN 100 UNIT/ML 3 ML VIAL SQ PRN ×4 (00:11→23:51)
[2018-05-15 00:44] VITALS: BP 141/58
[2018-05-15] MEDS: IPRATROPIUM NEB FS 0.5 MG/2.5 ML AMPUL.NEB NEB SCH ×4 (01:55→19:51)
[2018-05-15] MEDS: ALBUTEROL FS 2.5 MG/3 ML VIAL.NEB NEB SCH ×4 (01:55→19:51)
[2018-05-15] MEDS: MAG HYDROX/AL HYDROX/SIMETH 30 ML UDC TP SCH ×4 (05:17→23:50)
[2018-05-15] MEDS: ESOMEPRAZOLE MAG TRIHYDRATE 20 MG CAPSULE.DR GT SCH (05:17)
[2018-05-15] MEDS: PROSOURCE / PROSTAT (PYXIS) 30 ML UDC GT SCH ×5 (05:17→21:15)
[2018-05-15 06:13] VITALS: BP 132/65
[2018-05-15] MEDS: VIT B CMPLX 3/FA/VIT C/BIOTIN 1 TAB TABLET GT SCH (08:13)
[2018-05-15] MEDS: POLYVINYL ALCOHOL 15 ML BOTTLE EACHEYE SCH ×2 (08:13→21:15)
[2018-05-15] MEDS: METOCLOPRAMIDE HCL 10 MG/10 ML UDC GT SCH ×2 (08:13→21:15)
[2018-05-15] MEDS: ACIDOPHILUS/BULGARICUS 1 EACH TAB.CHEW GT SCH ×2 (08:13→16:17)
[2018-05-15] MEDS: HYDROGEN PEROXIDE 480 ML BOTTLE TP SCH ×2 (08:14→21:55)
[2018-05-15] MEDS: ACETAMINOPHEN 650 MG/20 ML UDC- SA PATIENTS-PAIN ONLY GT SCH ×2 (08:14→21:16)
[2018-05-15] MEDS: ASCORBIC ACID 500 MG TABLET GT SCH (08:14)
[2018-05-15] MEDS: HEPARIN SODIUM, PORCINE 5000 UNITS/1 ML VIAL SQ SCH ×2 (08:21→21:17)
[2018-05-15] MEDS: INSULIN GLARGINE, 100 UNIT/ML CARTRIDGE SQ SCH ×2 (08:22→21:58)
[2018-05-15] MEDS: NYSTATIN/TRIAMCIN OINT 15 GM TUBE TP SCH ×2 (08:44→21:55)
[2018-05-15] MEDS: NYSTATIN/TRIAMCIN 15 GM CREAM 15 GM TUBE TP SCH ×4 (08:44→21:55)
[2018-05-15] MEDS: HYDROGEL DRESSING 90 GM TUBE TP SCH ×3 (08:44→21:54)
[2018-05-15] MEDS: BACI/NEOM/POLY B OINT PKT 1 UDPKT PACKET TP SCH ×2 (08:45→21:55)
[2018-05-15 09:35] VITALS: BP 149/76
[2018-05-15] MEDS: hydrALAZINE HCL 25 MG TABLET GT SCH (16:18)
[2018-05-15] MEDS: NEPRO 1,000 ML BOTTLE GT PRN (16:19)
[2018-05-15 18:14] VITALS: BP 124/58
--- NOTE | 2018-05-15 19:51 | NUR ---
RT NOTE RECEIVED TRACH PT ON MECHANICAL VENTILATION ON NOTED SETTINGS PER MD ORDERS. AMBU BAG @ BEDSIDE. Q6 BREATHING TX GIVEN WITH NO ADVERSE REACTION NOTED. SX DONE PRN. ALARMS ON AND AUDIBLE. NO RESP DISTRESS AT THIS TIME. WILL CONT TO MONITOR PT. Addendum: 05/15/18 at 2130 by FREDDY PALMA RT Amended: Links added.
[2018-05-15 20:32] VITALS: BP 156/55
[2018-05-15] MEDS: METOPROLOL TARTRATE 50 MG TABLET GT SCH (21:18)
[2018-05-16 00:06] VITALS: BP 159/60
[2018-05-16] MEDS: IPRATROPIUM NEB FS 0.5 MG/2.5 ML AMPUL.NEB NEB SCH ×4 (01:01→19:45)
[2018-05-16] MEDS: ALBUTEROL FS 2.5 MG/3 ML VIAL.NEB NEB SCH ×4 (01:01→19:44)
[2018-05-16] MEDS: ESOMEPRAZOLE MAG TRIHYDRATE 20 MG CAPSULE.DR GT SCH (05:23)
[2018-05-16] MEDS: MAG HYDROX/AL HYDROX/SIMETH 30 ML UDC TP SCH ×4 (05:23→23:46)
[2018-05-16] MEDS: PROSOURCE / PROSTAT (PYXIS) 30 ML UDC GT SCH ×5 (05:23→20:05)
[2018-05-16] MEDS: BLOOD SUGAR DIAGNOSTIC 1 EACH STRIP IN SCH ×4 (06:21→23:46)
[2018-05-16] MEDS: INSULIN REGULAR, HUMAN 100 UNIT/ML 3 ML VIAL SQ PRN ×4 (06:23→23:47)
[2018-05-16 06:25] VITALS: BP 115/67
[2018-05-16 07:55] VITALS: BP 115/64
--- NOTE | 2018-05-16 07:59 | NUR ---
PT REC'D TRACHED ON [facility] VENT ON AC MODE. NO RESP DISTRESS OR SOB NOTED. SX'D FOR THIN MINIMAL AMT OF CLEAR SECRETIONS. TRACH PATENT AND SECURED. ALARMS ARE SET AND AUDIBLE, VENT PLUGGED INTO RED OUTLET, AMBU BAG BEDSIDE. WILL CONTINUE TO MONITOR. Addendum: 05/16/18 at 1721 by EDMUND NOONAN RT Amended: Links added.
[2018-05-16] MEDS: hydrALAZINE HCL 25 MG TABLET GT SCH ×2 (08:55→17:00)
[2018-05-16] MEDS: POLYVINYL ALCOHOL 15 ML BOTTLE EACHEYE SCH ×2 (08:57→20:00)
[2018-05-16] MEDS: ACIDOPHILUS/BULGARICUS 1 EACH TAB.CHEW GT SCH ×2 (08:57→17:36)
[2018-05-16] MEDS: METOPROLOL TARTRATE 50 MG TABLET GT SCH ×2 (08:58→22:16)
[2018-05-16] MEDS: ACETAMINOPHEN 650 MG/20 ML UDC- SA PATIENTS-PAIN ONLY GT SCH ×2 (08:59→20:07)
[2018-05-16] MEDS: VIT B CMPLX 3/FA/VIT C/BIOTIN 1 TAB TABLET GT SCH (08:59)
[2018-05-16] MEDS: ASCORBIC ACID 500 MG TABLET GT SCH (08:59)
[2018-05-16] MEDS: METOCLOPRAMIDE HCL 10 MG/10 ML UDC GT SCH ×2 (08:59→20:05)
[2018-05-16] MEDS: HYDROGEN PEROXIDE 480 ML BOTTLE TP SCH ×2 (09:00→20:09)
[2018-05-16] MEDS: BACI/NEOM/POLY B OINT PKT 1 UDPKT PACKET TP SCH ×2 (09:00→20:10)
[2018-05-16] MEDS: HEPARIN SODIUM, PORCINE 5000 UNITS/1 ML VIAL SQ SCH ×2 (09:00→20:08)
[2018-05-16] MEDS: INSULIN GLARGINE, 100 UNIT/ML CARTRIDGE SQ SCH ×2 (09:00→22:18)
[2018-05-16] MEDS: NYSTATIN/TRIAMCIN OINT 15 GM TUBE TP SCH ×2 (09:00→20:09)
[2018-05-16] MEDS: HYDROGEL DRESSING 90 GM TUBE TP SCH ×3 (09:00→20:09)
[2018-05-16] MEDS: NYSTATIN/TRIAMCIN 15 GM CREAM 15 GM TUBE TP SCH ×4 (09:00→20:09)
[2018-05-16 12:00] VITALS: BP 125/66
[2018-05-16 18:15] VITALS: BP 119/65
[2018-05-16] MEDS: NEPRO 1,000 ML BOTTLE GT PRN (19:09)
--- NOTE | 2018-05-16 19:45 | NUR ---
RT NOTE: RECEIVED TRACH PT ON [facility] VENT ON NOTED SETTINGS PER MD ORDERS. TRACH IS PATENT AND SECURED. RESTAURANT ATTENDANT DONE. AMBU BAG @ BEDSIDE. Q6 BREATHING TX GIVEN WITH NO ADVERSE REACTION NOTED. SX DONE PRN. ALARMS ON AND AUDIBLE. NO RESP DISTRESS AT THIS TIME. WILL CONT TO MONITOR PT. Addendum: 05/17/18 at 0550 by FREDDY PALMA RT Amended: Links added.
[2018-05-16 20:23] VITALS: BP 143/73
[2018-05-17 01:35] VITALS: BP 125/67
[2018-05-17] MEDS: ALBUTEROL FS 2.5 MG/3 ML VIAL.NEB NEB SCH ×4 (01:35→19:29)
[2018-05-17] MEDS: IPRATROPIUM NEB FS 0.5 MG/2.5 ML AMPUL.NEB NEB SCH ×4 (01:35→19:29)
[2018-05-17] MEDS: PROSOURCE / PROSTAT (PYXIS) 30 ML UDC GT SCH ×5 (05:17→20:22)
[2018-05-17] MEDS: MAG HYDROX/AL HYDROX/SIMETH 30 ML UDC TP SCH ×4 (05:17→22:00)
[2018-05-17] MEDS: ESOMEPRAZOLE MAG TRIHYDRATE 20 MG CAPSULE.DR GT SCH (05:17)
[2018-05-17] MEDS: BLOOD SUGAR DIAGNOSTIC 1 EACH STRIP IN SCH ×3 (05:17→18:21)
[2018-05-17] MEDS: INSULIN REGULAR, HUMAN 100 UNIT/ML 3 ML VIAL SQ PRN ×3 (05:18→18:23)
[2018-05-17 06:22] VITALS: BP 115/78
[2018-05-17 08:04] VITALS: BP 128/50
[2018-05-17] MEDS: VIT B CMPLX 3/FA/VIT C/BIOTIN 1 TAB TABLET GT SCH (09:00)
[2018-05-17] MEDS: BACI/NEOM/POLY B OINT PKT 1 UDPKT PACKET TP SCH ×2 (09:00→20:25)
[2018-05-17] MEDS: HYDROGEL DRESSING 90 GM TUBE TP SCH ×3 (09:00→20:25)
[2018-05-17] MEDS: METOCLOPRAMIDE HCL 10 MG/10 ML UDC GT SCH ×2 (09:00→20:24)
[2018-05-17] MEDS: POLYVINYL ALCOHOL 15 ML BOTTLE EACHEYE SCH ×2 (09:00→20:18)
[2018-05-17] MEDS: hydrALAZINE HCL 25 MG TABLET GT SCH ×2 (09:00→17:00)
[2018-05-17] MEDS: ASCORBIC ACID 500 MG TABLET GT SCH (09:00)
[2018-05-17] MEDS: ACIDOPHILUS/BULGARICUS 1 EACH TAB.CHEW GT SCH ×2 (09:00→17:00)
[2018-05-17] MEDS: HYDROGEN PEROXIDE 480 ML BOTTLE TP SCH ×2 (09:00→20:25)
[2018-05-17] MEDS: NYSTATIN/TRIAMCIN OINT 15 GM TUBE TP SCH ×2 (09:00→20:25)
[2018-05-17] MEDS: ACETAMINOPHEN 650 MG/20 ML UDC- SA PATIENTS-PAIN ONLY GT SCH ×2 (09:00→20:25)
[2018-05-17] MEDS: INSULIN GLARGINE, 100 UNIT/ML CARTRIDGE SQ SCH ×2 (09:00→22:00)
[2018-05-17] MEDS: METOPROLOL TARTRATE 50 MG TABLET GT SCH ×2 (09:00→21:56)
[2018-05-17] MEDS: NYSTATIN/TRIAMCIN 15 GM CREAM 15 GM TUBE TP SCH ×4 (09:00→20:25)
--- NOTE | 2018-05-17 15:36 | NUR ---
RT PATIENT RECEIVED TRACHED ON MECHANICAL VENTILATION ON SETTINGS ORDERED. AMBU BAG/BACK UP TRACH AT BEDSIDE. TX GIVEN, NO ADVERSE REACTIONS NOTED. SX DONE, MINIMAL/SMALL THICK WHITE SECRETIONS NOTED. ALARMS ON AND AUDIBLE. VENT PLUGGED IN RED OUTLET, PATIENT STABLE. WILL CONTINUE MONITOR.
[2018-05-17 20:18] VITALS: BP 100/57
[2018-05-17] MEDS: HEPARIN SODIUM, PORCINE 5000 UNITS/1 ML VIAL SQ SCH (20:18)
[2018-05-17] MEDS: NEPRO 1,000 ML BOTTLE GT PRN (21:48)
--- NOTE | 2018-05-17 22:03 | NUR ---
RT PATIENT RECEIVED TRACHED ON MECHANICAL VENTILATION ON SETTINGS ORDERED. AMBU BAG/BACK UP TRACH AT BEDSIDE. TX GIVEN, NO ADVERSE REACTIONS NOTED. SX DONE, MODERATE THICK WHITE SECRETIONS NOTED. ALARMS ON AND AUDIBLE. VENT PLUGGED IN RED OUTLET, PATIENT STABLE. WILL CONTINUE MONITOR. Addendum: 05/17/18 at 2204 by ARGENTINA AVILA RT Amended: Links added.
[2018-05-18] MEDS: INSULIN REGULAR, HUMAN 100 UNIT/ML 3 ML VIAL SQ PRN ×3 (00:34→17:47)
[2018-05-18 00:37] VITALS: BP 129/66
[2018-05-18] MEDS: BLOOD SUGAR DIAGNOSTIC 1 EACH STRIP IN SCH ×4 (00:37→17:46)
[2018-05-18] MEDS: ALBUTEROL FS 2.5 MG/3 ML VIAL.NEB NEB SCH ×4 (01:09→19:35)
[2018-05-18] MEDS: IPRATROPIUM NEB FS 0.5 MG/2.5 ML AMPUL.NEB NEB SCH ×4 (01:09→19:35)
[2018-05-18] MEDS: PROSOURCE / PROSTAT (PYXIS) 30 ML UDC GT SCH ×5 (05:08→20:09)
[2018-05-18] MEDS: MAG HYDROX/AL HYDROX/SIMETH 30 ML UDC TP SCH ×4 (05:08→22:38)
[2018-05-18] MEDS: ESOMEPRAZOLE MAG TRIHYDRATE 20 MG CAPSULE.DR GT SCH (05:09)
[2018-05-18 06:22] VITALS: BP 123/67
--- NOTE | 2018-05-18 07:34 | NUR ---
RT NOTE PT RECEIVED ON [facility] VENT ON THE FOLLOWING NOTED SETTINGS. NO RESP DISTRESS OR SOB NOTED AT THIS TIME. PT SUCTIONED: SMALL THIN WHITE SECRETIONS. BREATHING TX GIVEN, NO ADVERSE REACTIONS NOTED. VENT IS PLUGGED INTO RED OUTLET. VENT ALARMS ARE ON AND AUDIBLE. SPARE TRACH AND AMBU BAG ARE AT BEDSIDE. WILL CONT TO MONITOR. Addendum: 05/18/18 at 0734 by SHANI PEÑA RT Amended: Links added.
[2018-05-18 08:10] VITALS: BP 121/76
[2018-05-18] MEDS: INSULIN GLARGINE, 100 UNIT/ML CARTRIDGE SQ SCH ×2 (09:00→22:38)
[2018-05-18] MEDS: HEPARIN SODIUM, PORCINE 5000 UNITS/1 ML VIAL SQ SCH ×2 (09:00→20:07)
[2018-05-18] MEDS: ACIDOPHILUS/BULGARICUS 1 EACH TAB.CHEW GT SCH ×2 (09:00→17:46)
[2018-05-18] MEDS: METOCLOPRAMIDE HCL 10 MG/10 ML UDC GT SCH ×2 (09:00→20:09)
[2018-05-18] MEDS: POLYVINYL ALCOHOL 15 ML BOTTLE EACHEYE SCH ×2 (09:00→20:09)
[2018-05-18] MEDS: VIT B CMPLX 3/FA/VIT C/BIOTIN 1 TAB TABLET GT SCH (09:00)
[2018-05-18] MEDS: ASCORBIC ACID 500 MG TABLET GT SCH (09:00)
[2018-05-18] MEDS: ACETAMINOPHEN 650 MG/20 ML UDC- SA PATIENTS-PAIN ONLY GT SCH ×2 (09:00→20:09)
[2018-05-18] MEDS: HYDROGEN PEROXIDE 480 ML BOTTLE TP SCH ×2 (10:00→20:10)
[2018-05-18] MEDS: BACI/NEOM/POLY B OINT PKT 1 UDPKT PACKET TP SCH ×2 (10:00→20:10)
[2018-05-18] MEDS: NYSTATIN/TRIAMCIN OINT 15 GM TUBE TP SCH ×2 (10:00→20:10)
[2018-05-18] MEDS: HYDROGEL DRESSING 90 GM TUBE TP SCH ×3 (10:00→20:10)
[2018-05-18] MEDS: NYSTATIN/TRIAMCIN 15 GM CREAM 15 GM TUBE TP SCH ×4 (10:00→20:10)
[2018-05-18 15:30] VITALS: BP 128/50
[2018-05-18] MEDS: hydrALAZINE HCL 25 MG TABLET GT SCH (17:00)
[2018-05-18 18:32] VITALS: BP 92/54
--- NOTE | 2018-05-18 19:38 | NUR ---
RT PATIENT RECEIVED TRACHED ON MECHANICAL VENTILATION ON SETTINGS ORDERED. AMBU BAG/BACK UP TRACH AT BEDSIDE. TX GIVEN, NO ADVERSE REACTIONS NOTED. SX DONE, MODERATE THICK WHITE SECRETIONS NOTED. ALARMS ON AND AUDIBLE. VENT PLUGGED IN RED OUTLET, PATIENT STABLE. WILL CONTINUE MONITOR. Addendum: 05/18/18 at 1938 by ARGENTINA AVILA RT Amended: Links added.
[2018-05-18 20:10] VITALS: BP_SYST 113; BP_SYST 136; BP_DIAS 57; BP_DIAS 70
[2018-05-18] MEDS: METOPROLOL TARTRATE 50 MG TABLET GT SCH (21:33)
[2018-05-19] VITALS: BP 140/55
[2018-05-19] MEDS: BLOOD SUGAR DIAGNOSTIC 1 EACH STRIP IN SCH ×4 (00:37→17:08)
[2018-05-19] MEDS: INSULIN REGULAR, HUMAN 100 UNIT/ML 3 ML VIAL SQ PRN ×4 (00:38→17:08)
[2018-05-19] MEDS: IPRATROPIUM NEB FS 0.5 MG/2.5 ML AMPUL.NEB NEB SCH ×4 (01:15→20:20)
[2018-05-19] MEDS: ALBUTEROL FS 2.5 MG/3 ML VIAL.NEB NEB SCH ×4 (01:15→20:20)
[2018-05-19] MEDS: PROSOURCE / PROSTAT (PYXIS) 30 ML UDC GT SCH ×5 (05:29→21:34)
[2018-05-19] MEDS: MAG HYDROX/AL HYDROX/SIMETH 30 ML UDC TP SCH ×4 (05:29→23:15)
[2018-05-19] MEDS: ESOMEPRAZOLE MAG TRIHYDRATE 20 MG CAPSULE.DR GT SCH (05:30)
[2018-05-19 06:00] VITALS: BP_SYST 138; BP_SYST 149; BP_DIAS 69; BP_DIAS 72
--- NOTE | 2018-05-19 07:51 | NUR ---
RT PT RECEIVED WITH A SHILEY 6 TRACH ON THE VENT WITH NOTED SETTINGS. PT IS AWAKE BUT DOES NOT FOLLOW COMMANDS. VENT ALARMS ARE SET AND AUDIBLE WITH BVM BY BEDSIDE. NAVAL ARCHITECT CUFF PRESSURE NOTED. VENT IS PLUGGED INTO RED OUTLET. HHN TX GIVEN WITH NO ADVERSE REACTIONS. NO RESPIRATORY DISTRESS NOTED AT THIS TIME, WILL CONTINUE TO MONITOR. Addendum: 05/19/18 at 0917 by EDU CIFUENTES RT Amended: Links added.
[2018-05-19 08:05] VITALS: BP 124/71
[2018-05-19] MEDS: POLYVINYL ALCOHOL 15 ML BOTTLE EACHEYE SCH ×2 (09:36→21:34)
[2018-05-19] MEDS: ACIDOPHILUS/BULGARICUS 1 EACH TAB.CHEW GT SCH ×2 (09:37→16:18)
[2018-05-19] MEDS: hydrALAZINE HCL 25 MG TABLET GT SCH ×2 (09:37→16:17)
[2018-05-19] MEDS: METOCLOPRAMIDE HCL 10 MG/10 ML UDC GT SCH ×2 (09:39→21:34)
[2018-05-19] MEDS: ACETAMINOPHEN 650 MG/20 ML UDC- SA PATIENTS-PAIN ONLY GT SCH ×2 (09:39→21:35)
[2018-05-19] MEDS: ASCORBIC ACID 500 MG TABLET GT SCH (09:40)
[2018-05-19] MEDS: NYSTATIN/TRIAMCIN 15 GM CREAM 15 GM TUBE TP SCH ×4 (09:41→21:59)
[2018-05-19] MEDS: NYSTATIN/TRIAMCIN OINT 15 GM TUBE TP SCH ×2 (09:41→21:59)
[2018-05-19] MEDS: HYDROGEL DRESSING 90 GM TUBE TP SCH ×3 (09:41→21:59)
[2018-05-19] MEDS: HYDROGEN PEROXIDE 480 ML BOTTLE TP SCH ×2 (09:41→21:59)
[2018-05-19] MEDS: BACI/NEOM/POLY B OINT PKT 1 UDPKT PACKET TP SCH ×2 (09:41→21:59)
[2018-05-19] MEDS: VIT B CMPLX 3/FA/VIT C/BIOTIN 1 TAB TABLET GT SCH (09:43)
[2018-05-19] MEDS: METOPROLOL TARTRATE 50 MG TABLET GT SCH ×2 (09:43→21:37)
[2018-05-19] MEDS: HEPARIN SODIUM, PORCINE 5000 UNITS/1 ML VIAL SQ SCH ×2 (09:45→21:36)
[2018-05-19] MEDS: INSULIN GLARGINE, 100 UNIT/ML CARTRIDGE SQ SCH ×2 (09:50→22:44)
[2018-05-19 13:51] VITALS: BP 108/40
[2018-05-19 18:25] VITALS: BP 136/52
[2018-05-19 19:48] VITALS: BP 140/59
[2018-05-20 00:01] VITALS: BP 142/71
[2018-05-20] MEDS: BLOOD SUGAR DIAGNOSTIC 1 EACH STRIP IN SCH ×4 (00:30→17:56)
[2018-05-20] MEDS: INSULIN REGULAR, HUMAN 100 UNIT/ML 3 ML VIAL SQ PRN ×3 (00:51→17:57)
[2018-05-20] MEDS: IPRATROPIUM NEB FS 0.5 MG/2.5 ML AMPUL.NEB NEB SCH ×4 (02:20→20:07)
[2018-05-20] MEDS: ALBUTEROL FS 2.5 MG/3 ML VIAL.NEB NEB SCH ×4 (02:20→20:07)
[2018-05-20] MEDS: MAG HYDROX/AL HYDROX/SIMETH 30 ML UDC TP SCH ×4 (05:14→22:08)
[2018-05-20] MEDS: ESOMEPRAZOLE MAG TRIHYDRATE 20 MG CAPSULE.DR GT SCH (05:14)
[2018-05-20] MEDS: PROSOURCE / PROSTAT (PYXIS) 30 ML UDC GT SCH ×5 (05:14→21:00)
--- NOTE | 2018-05-20 05:15 | NUR ---
RT RECD PT TRACHED INTACT AND SECURED ON [facility] VENT CESARIO ORDERED SETTINGS ALARMS ON AND AUDIBLE BAG AND MASK AT HOB TXS GIVEN NO ADVERSE REACTION NOTED ATT WILL CONT TO MONITOR NO RESP DISTRESS THROUGHOUT SHIFT
[2018-05-20 06:39] VITALS: BP 138/73
--- NOTE | 2018-05-20 07:39 | NUR ---
Female trach pt received on a mechanical vent. Pt faith is secure. Vent is plugged into a red outlet, alarms are set and audible, and BMV is at bedside. Addendum: 05/20/18 at 0740 by ANNMARIE CARVER RT Amended: Links added.
[2018-05-20 07:59] VITALS: BP 151/58
[2018-05-20] MEDS: HYDROGEN PEROXIDE 480 ML BOTTLE TP SCH ×2 (09:00→21:00)
[2018-05-20] MEDS: BACI/NEOM/POLY B OINT PKT 1 UDPKT PACKET TP SCH ×2 (09:00→21:00)
[2018-05-20] MEDS: NYSTATIN/TRIAMCIN OINT 15 GM TUBE TP SCH ×2 (09:00→21:00)
[2018-05-20] MEDS: NYSTATIN/TRIAMCIN 15 GM CREAM 15 GM TUBE TP SCH ×4 (09:00→21:00)
[2018-05-20] MEDS: HYDROGEL DRESSING 90 GM TUBE TP SCH ×3 (09:00→21:00)
[2018-05-20] MEDS: POLYVINYL ALCOHOL 15 ML BOTTLE EACHEYE SCH ×2 (09:07→21:00)
[2018-05-20] MEDS: ACIDOPHILUS/BULGARICUS 1 EACH TAB.CHEW GT SCH ×2 (09:08→17:54)
[2018-05-20] MEDS: METOCLOPRAMIDE HCL 10 MG/10 ML UDC GT SCH ×2 (09:10→21:00)
[2018-05-20] MEDS: ACETAMINOPHEN 650 MG/20 ML UDC- SA PATIENTS-PAIN ONLY GT SCH ×2 (09:11→21:00)
[2018-05-20] MEDS: ASCORBIC ACID 500 MG TABLET GT SCH (09:11)
[2018-05-20] MEDS: HEPARIN SODIUM, PORCINE 5000 UNITS/1 ML VIAL SQ SCH ×2 (09:12→21:00)
[2018-05-20] MEDS: INSULIN GLARGINE, 100 UNIT/ML CARTRIDGE SQ SCH ×2 (09:13→22:07)
[2018-05-20] MEDS: VIT B CMPLX 3/FA/VIT C/BIOTIN 1 TAB TABLET GT SCH (09:15)
[2018-05-20] MEDS: hydrALAZINE HCL 25 MG TABLET GT SCH (17:55)
[2018-05-20] MEDS: NEPRO 1,000 ML BOTTLE GT PRN (18:33)
[2018-05-20 18:48] VITALS: BP 164/92
[2018-05-20 20:16] VITALS: BP 170/59
[2018-05-20] MEDS: CLONIDINE HCL 0.2 MG TABLET GT PRN ×2 (21:00→23:53)
[2018-05-20] MEDS: METOPROLOL TARTRATE 50 MG TABLET GT SCH (22:00)
[2018-05-21] VITALS: BP 98/50
[2018-05-21] MEDS: BLOOD SUGAR DIAGNOSTIC 1 EACH STRIP IN SCH ×5 (00:32→23:24)
[2018-05-21] MEDS: INSULIN REGULAR, HUMAN 100 UNIT/ML 3 ML VIAL SQ PRN ×5 (00:33→23:25)
[2018-05-21] MEDS: IPRATROPIUM NEB FS 0.5 MG/2.5 ML AMPUL.NEB NEB SCH ×4 (01:55→19:12)
[2018-05-21] MEDS: ALBUTEROL FS 2.5 MG/3 ML VIAL.NEB NEB SCH ×4 (01:55→19:12)
[2018-05-21] MEDS: PROSOURCE / PROSTAT (PYXIS) 30 ML UDC GT SCH ×5 (05:49→20:46)
[2018-05-21] MEDS: MAG HYDROX/AL HYDROX/SIMETH 30 ML UDC TP SCH ×4 (05:50→23:24)
[2018-05-21] MEDS: ESOMEPRAZOLE MAG TRIHYDRATE 20 MG CAPSULE.DR GT SCH (05:50)
[2018-05-21 06:00] VITALS: BP 127/88
[2018-05-21] MEDS: CLONIDINE HCL 0.2 MG TABLET GT PRN (06:03)
--- NOTE | 2018-05-21 06:10 | NUR ---
RT PT RECEIVED TRACHED ON [facility] VENT WITH NOTED SETTING. VENT ALARMS SET AND AUDIBLE. VENT TO RED OUTLET. AMBU BAG AT [facility]. TRACH PATENT AND SECURE VIA TRACH TIES. TOOL AND DIE MAKER NOTED. PT TOLERATING VENT SETTING WELL, NO SOB OR DISTRESS NOTED. Addendum: 05/21/18 at 0610 by ANTWAN DOE RT Amended: Links added.
[2018-05-21 07:32] VITALS: BP 138/71
[2018-05-21] MEDS: METOPROLOL TARTRATE 50 MG TABLET GT SCH ×2 (09:00→21:20)
[2018-05-21] MEDS: VIT B CMPLX 3/FA/VIT C/BIOTIN 1 TAB TABLET GT SCH (09:00)
[2018-05-21] MEDS: ACETAMINOPHEN 650 MG/20 ML UDC- SA PATIENTS-PAIN ONLY GT SCH ×2 (09:00→20:46)
[2018-05-21] MEDS: ASCORBIC ACID 500 MG TABLET GT SCH (09:00)
[2018-05-21] MEDS: METOCLOPRAMIDE HCL 10 MG/10 ML UDC GT SCH ×2 (09:00→20:46)
[2018-05-21] MEDS: hydrALAZINE HCL 25 MG TABLET GT SCH ×2 (09:00→17:40)
[2018-05-21] MEDS: HEPARIN SODIUM, PORCINE 5000 UNITS/1 ML VIAL SQ SCH ×2 (09:00→20:46)
[2018-05-21] MEDS: ACIDOPHILUS/BULGARICUS 1 EACH TAB.CHEW GT SCH ×2 (09:00→17:41)
[2018-05-21] MEDS: POLYVINYL ALCOHOL 15 ML BOTTLE EACHEYE SCH ×2 (09:00→20:45)
[2018-05-21] MEDS: INSULIN GLARGINE, 100 UNIT/ML CARTRIDGE SQ SCH ×2 (09:00→21:21)
--- NOTE | 2018-05-21 09:31 | NUR ---
Residents boyfriend John signed admission intake paperwork (patient rights acknowledgement, documentation of preferred intensity of care, conditions of admission, [place] Standard Admission Agreement, and voluntary prior express consent form). The social media analyst educated the resident's boyfriend on advanced healthcare directives/conservatorship. Resident is not able to complete an advanced healthcare directive as she is not alert. Resident's boyfriend does not wish to pursue conservatorship at this time. Per the resident's boyfriend, the resident is to remain full code. Charge nurse informed.
[2018-05-21] MEDS: HYDROGEN PEROXIDE 480 ML BOTTLE TP SCH ×2 (10:00→20:47)
[2018-05-21] MEDS: BACI/NEOM/POLY B OINT PKT 1 UDPKT PACKET TP SCH ×2 (10:00→20:47)
[2018-05-21] MEDS: NYSTATIN/TRIAMCIN OINT 15 GM TUBE TP SCH ×2 (10:00→20:47)
[2018-05-21] MEDS: NYSTATIN/TRIAMCIN 15 GM CREAM 15 GM TUBE TP SCH ×4 (10:00→20:47)
[2018-05-21] MEDS: HYDROGEL DRESSING 90 GM TUBE TP SCH ×3 (10:00→20:46)
--- NOTE | 2018-05-21 11:00 | NUR ---
Notified Dr. Enrique Castro of [facility]'s recommendations to start patient with Sevelamer 0.8 gm TID via GT. Phosphorus level 4.7. in agreement. Order carried out. John, responsible constitution party informed.
[2018-05-21 12:06] VITALS: BP 122/59
[2018-05-21] MEDS ORDERED: SEVELAMER CARBONATE 0.8 GM POWD.PACK GT SCH (13:00)
[2018-05-21] MEDS: SEVELAMER CARBONATE 0.8 GM POWD.PACK GT SCH (17:41)
[2018-05-21 18:18] VITALS: BP 131/56
[2018-05-21 19:45] VITALS: BP 139/56
--- NOTE | 2018-05-21 20:06 | NUR ---
Patient received on mechanical ventilation with settings of AC 12, 500 Vt, 30%, +5. Suctioned for minimal, thin, yellow secretions. Given in-line treatments with no adverse reactions. Ambu bag at bedside. Vent alarm audible and visible. Vent plugged into red outlet. Addendum: 05/21/18 at 2007 by JAMARI PATEL RT Amended: Links added.
[2018-05-22 00:33] VITALS: BP 116/49
[2018-05-22] MEDS: IPRATROPIUM NEB FS 0.5 MG/2.5 ML AMPUL.NEB NEB SCH ×4 (01:15→19:53)
[2018-05-22] MEDS: ALBUTEROL FS 2.5 MG/3 ML VIAL.NEB NEB SCH ×4 (01:15→19:53)
[2018-05-22] MEDS: ESOMEPRAZOLE MAG TRIHYDRATE 20 MG CAPSULE.DR GT SCH (05:02)
[2018-05-22] MEDS: NEPRO 1,000 ML BOTTLE GT PRN (05:02)
[2018-05-22] MEDS: MAG HYDROX/AL HYDROX/SIMETH 30 ML UDC TP SCH ×4 (05:02→23:41)
[2018-05-22] MEDS: PROSOURCE / PROSTAT (PYXIS) 30 ML UDC GT SCH ×5 (05:02→20:22)
[2018-05-22] MEDS: BLOOD SUGAR DIAGNOSTIC 1 EACH STRIP IN SCH ×4 (05:50→23:41)
[2018-05-22] MEDS: INSULIN REGULAR, HUMAN 100 UNIT/ML 3 ML VIAL SQ PRN ×3 (05:51→23:42)
[2018-05-22 06:51] VITALS: BP 125/49
[2018-05-22 07:39] VITALS: BP 137/51
[2018-05-22] MEDS: INSULIN GLARGINE, 100 UNIT/ML CARTRIDGE SQ SCH ×2 (08:45→21:16)
[2018-05-22] MEDS: SEVELAMER CARBONATE 0.8 GM POWD.PACK GT SCH ×3 (08:46→17:35)
[2018-05-22] MEDS: HEPARIN SODIUM, PORCINE 5000 UNITS/1 ML VIAL SQ SCH ×2 (08:46→20:23)
[2018-05-22] MEDS: ACIDOPHILUS/BULGARICUS 1 EACH TAB.CHEW GT SCH ×2 (08:46→17:22)
[2018-05-22] MEDS: POLYVINYL ALCOHOL 15 ML BOTTLE EACHEYE SCH ×2 (08:46→20:22)
[2018-05-22] MEDS: ACETAMINOPHEN 650 MG/20 ML UDC- SA PATIENTS-PAIN ONLY GT SCH ×2 (08:48→20:22)
[2018-05-22] MEDS: ASCORBIC ACID 500 MG TABLET GT SCH (08:48)
[2018-05-22] MEDS: METOCLOPRAMIDE HCL 10 MG/10 ML UDC GT SCH ×2 (08:48→20:22)
[2018-05-22] MEDS: VIT B CMPLX 3/FA/VIT C/BIOTIN 1 TAB TABLET GT SCH (08:49)
[2018-05-22] MEDS: NYSTATIN/TRIAMCIN 15 GM CREAM 15 GM TUBE TP SCH ×4 (09:00→20:23)
[2018-05-22] MEDS: HYDROGEL DRESSING 90 GM TUBE TP SCH ×3 (09:00→20:23)
[2018-05-22] MEDS: BACI/NEOM/POLY B OINT PKT 1 UDPKT PACKET TP SCH ×2 (09:00→20:23)
[2018-05-22] MEDS: NYSTATIN/TRIAMCIN OINT 15 GM TUBE TP SCH ×2 (09:00→20:23)
[2018-05-22] MEDS: HYDROGEN PEROXIDE 480 ML BOTTLE TP SCH ×2 (09:00→20:23)
[2018-05-22] MEDS: hydrALAZINE HCL 25 MG TABLET GT SCH (17:24)
[2018-05-22 18:00] VITALS: BP 159/74
[2018-05-22 19:32] VITALS: BP 141/49
--- NOTE | 2018-05-22 19:54 | NUR ---
RT Pt received trach'd and on [facility] vent w charted settings. Vent is plugged into red outlet. Alarms are on and audible w manan @ [employer] Trach is secure and patent. Implementation Advisor done. Hhn tx given and pt sx'd w no adverse reactions. No respiratory distress noted at this time. Will continue to monitor. Addendum: 05/22/18 at 2102 by JOHANA RING RT Amended: Links added.
[2018-05-22] MEDS: METOPROLOL TARTRATE 50 MG TABLET GT SCH (21:15)
[2018-05-23 00:38] VITALS: BP 117/57
[2018-05-23] MEDS: IPRATROPIUM NEB FS 0.5 MG/2.5 ML AMPUL.NEB NEB SCH ×4 (01:53→19:55)
[2018-05-23] MEDS: ALBUTEROL FS 2.5 MG/3 ML VIAL.NEB NEB SCH ×4 (01:53→19:55)
[2018-05-23] MEDS: PROSOURCE / PROSTAT (PYXIS) 30 ML UDC GT SCH ×5 (05:21→21:02)
[2018-05-23] MEDS: BLOOD SUGAR DIAGNOSTIC 1 EACH STRIP IN SCH ×3 (05:21→17:46)
[2018-05-23] MEDS: MAG HYDROX/AL HYDROX/SIMETH 30 ML UDC TP SCH ×4 (05:21→23:00)
[2018-05-23] MEDS: ESOMEPRAZOLE MAG TRIHYDRATE 20 MG CAPSULE.DR GT SCH (05:21)
[2018-05-23] MEDS: INSULIN REGULAR, HUMAN 100 UNIT/ML 3 ML VIAL SQ PRN ×2 (05:22→13:03)
[2018-05-23 06:09] VITALS: BP 142/60
[2018-05-23 07:51] VITALS: BP 143/64
[2018-05-23] MEDS: SEVELAMER CARBONATE 0.8 GM POWD.PACK GT SCH ×3 (08:00→17:46)
[2018-05-23] MEDS: NYSTATIN/TRIAMCIN 15 GM CREAM 15 GM TUBE TP SCH ×4 (09:00→21:04)
[2018-05-23] MEDS: HYDROGEL DRESSING 90 GM TUBE TP SCH ×3 (09:00→21:03)
[2018-05-23] MEDS: HYDROGEN PEROXIDE 480 ML BOTTLE TP SCH ×2 (09:00→21:03)
[2018-05-23] MEDS: BACI/NEOM/POLY B OINT PKT 1 UDPKT PACKET TP SCH ×2 (09:00→21:04)
[2018-05-23] MEDS: NYSTATIN/TRIAMCIN OINT 15 GM TUBE TP SCH ×2 (09:00→21:04)
[2018-05-23] MEDS: POLYVINYL ALCOHOL 15 ML BOTTLE EACHEYE SCH ×2 (09:26→21:02)
[2018-05-23] MEDS: METOCLOPRAMIDE HCL 10 MG/10 ML UDC GT SCH ×2 (09:27→21:02)
[2018-05-23] MEDS: hydrALAZINE HCL 25 MG TABLET GT SCH ×2 (09:27→16:43)
[2018-05-23] MEDS: METOPROLOL TARTRATE 50 MG TABLET GT SCH ×2 (09:27→21:06)
[2018-05-23] MEDS: VIT B CMPLX 3/FA/VIT C/BIOTIN 1 TAB TABLET GT SCH (09:27)
[2018-05-23] MEDS: ACETAMINOPHEN 650 MG/20 ML UDC- SA PATIENTS-PAIN ONLY GT SCH ×2 (09:27→21:02)
[2018-05-23] MEDS: ACIDOPHILUS/BULGARICUS 1 EACH TAB.CHEW GT SCH ×2 (09:27→16:43)
[2018-05-23] MEDS: ASCORBIC ACID 500 MG TABLET GT SCH (09:27)
[2018-05-23] MEDS: HEPARIN SODIUM, PORCINE 5000 UNITS/1 ML VIAL SQ SCH ×2 (09:28→21:03)
[2018-05-23] MEDS: INSULIN GLARGINE, 100 UNIT/ML CARTRIDGE SQ SCH ×2 (09:29→22:45)
[2018-05-23] MEDS: NEPRO 1,000 ML BOTTLE GT PRN (15:11)
[2018-05-23 16:44] VITALS: BP 123/70
[2018-05-23 18:29] VITALS: BP 119/77
[2018-05-23 19:40] VITALS: BP 108/64
--- NOTE | 2018-05-23 20:31 | NUR ---
RT PT REC'D TRACHED ON VENT SETTINGS CHARTED, PT RESPONSIVE TO PAIN, NO SOB, NO RESPIRATORY DISTRESS NOTED AT THIS TIME, TRACH TUBE PATENT, SECURE, IN PLACE, AMBU BAG @ HOB, VENT ALARMS ON AND AUDIBLE, VENT PLUGGED IN RED OUTLET, PT SUCTIONED W MODERATE AMOUNT OF THICK PALE YELLOW SECRETIONS, TX GIVEN WITH NO ADVERSE REACTION, WILL CONTINUE TO MONITOR. Addendum: 05/23/18 at 2033 by LONA PAGAN RT Amended: Links added.
[2018-05-24] VITALS (7 sets, daily range): BP systolic 105–131; BP diastolic 56–94
[2018-05-24] MEDS: BLOOD SUGAR DIAGNOSTIC 1 EACH STRIP IN SCH ×4 (00:38→17:51)
[2018-05-24] MEDS: IPRATROPIUM NEB FS 0.5 MG/2.5 ML AMPUL.NEB NEB SCH ×4 (00:55→19:08)
[2018-05-24] MEDS: ALBUTEROL FS 2.5 MG/3 ML VIAL.NEB NEB SCH ×4 (00:55→19:08)
[2018-05-24] MEDS: INSULIN REGULAR, HUMAN 100 UNIT/ML 3 ML VIAL SQ PRN ×4 (01:03→17:54)
[2018-05-24] MEDS: PROSOURCE / PROSTAT (PYXIS) 30 ML UDC GT SCH ×5 (05:28→21:16)
[2018-05-24] MEDS: MAG HYDROX/AL HYDROX/SIMETH 30 ML UDC TP SCH ×4 (05:28→23:00)
[2018-05-24] MEDS: ESOMEPRAZOLE MAG TRIHYDRATE 20 MG CAPSULE.DR GT SCH (05:28)
[2018-05-24] MEDS: SEVELAMER CARBONATE 0.8 GM POWD.PACK GT SCH ×3 (08:00→17:51)
[2018-05-24] MEDS: hydrALAZINE HCL 25 MG TABLET GT SCH ×2 (09:00→17:00)
[2018-05-24] MEDS: POLYVINYL ALCOHOL 15 ML BOTTLE EACHEYE SCH ×2 (09:40→21:16)
[2018-05-24] MEDS: ACIDOPHILUS/BULGARICUS 1 EACH TAB.CHEW GT SCH ×2 (09:41→17:51)
[2018-05-24] MEDS: METOPROLOL TARTRATE 50 MG TABLET GT SCH ×2 (09:41→21:21)
[2018-05-24] MEDS: VIT B CMPLX 3/FA/VIT C/BIOTIN 1 TAB TABLET GT SCH (09:42)
[2018-05-24] MEDS: METOCLOPRAMIDE HCL 10 MG/10 ML UDC GT SCH ×2 (09:43→21:17)
[2018-05-24] MEDS: ACETAMINOPHEN 650 MG/20 ML UDC- SA PATIENTS-PAIN ONLY GT SCH ×2 (09:44→21:20)
[2018-05-24] MEDS: ASCORBIC ACID 500 MG TABLET GT SCH (09:44)
[2018-05-24] MEDS: HEPARIN SODIUM, PORCINE 5000 UNITS/1 ML VIAL SQ SCH ×2 (09:48→21:20)
[2018-05-24] MEDS: INSULIN GLARGINE, 100 UNIT/ML CARTRIDGE SQ SCH ×2 (09:50→21:22)
[2018-05-24] MEDS: HYDROGEL DRESSING 90 GM TUBE TP SCH ×3 (10:44→21:53)
[2018-05-24] MEDS: BACI/NEOM/POLY B OINT PKT 1 UDPKT PACKET TP SCH ×2 (10:44→21:54)
[2018-05-24] MEDS: HYDROGEN PEROXIDE 480 ML BOTTLE TP SCH ×2 (10:44→21:54)
[2018-05-24] MEDS: NYSTATIN/TRIAMCIN OINT 15 GM TUBE TP SCH ×2 (10:44→21:54)
[2018-05-24] MEDS: NYSTATIN/TRIAMCIN 15 GM CREAM 15 GM TUBE TP SCH ×4 (10:44→21:54)
--- NOTE | 2018-05-24 12:31 | NUR ---
RT RECD PT TRACHED INTACT & SECURED ON MECH VENT CESARIO ORDERED SETTINGS ALARMS ON AND AUDIBLE BAG AND MASK AT HOB VENT PLUGGED IN THE RED OUTLET. SX THICK YELLOW MOD SECRETIONS TXS GIVEN NO ADVERSE REACTION NOTED ATT NO RESP DISTRESS NOTED ATT WILL CONT TO MONITOR
--- NOTE | 2018-05-25 00:12 | NUR ---
PT REC'D TRACHED ON VENT SETTINGS CHARTED, PT RESPONSIVE TO PAIN, NO SOB, NO RESPIRATORY DISTRESS NOTED AT THIS TIME, TRACH TUBE PATENT, SECURE, IN PLACE, AMBU BAG @ HOB, VENT ALARMS ON AND AUDIBLE, PT SUCTIONED W SMALL AMOUNT OF THICK PALE YELLOW SECRETIONS, TX GIVEN WITH NO ADVERSE REACTION, WILL CONTINUE TO MONITOR. Addendum: 05/25/18 at 0012 by ARGENTINA AVILA RT Amended: Links added.
[2018-05-25] MEDS: BLOOD SUGAR DIAGNOSTIC 1 EACH STRIP IN SCH ×4 (00:14→17:51)
[2018-05-25] MEDS: INSULIN REGULAR, HUMAN 100 UNIT/ML 3 ML VIAL SQ PRN ×3 (00:15→17:52)
[2018-05-25 01:21] VITALS: BP 116/58
[2018-05-25] MEDS: IPRATROPIUM NEB FS 0.5 MG/2.5 ML AMPUL.NEB NEB SCH ×4 (01:40→19:09)
[2018-05-25] MEDS: ALBUTEROL FS 2.5 MG/3 ML VIAL.NEB NEB SCH ×4 (01:40→19:09)
[2018-05-25] MEDS: PROSOURCE / PROSTAT (PYXIS) 30 ML UDC GT SCH ×5 (05:36→20:59)
[2018-05-25] MEDS: MAG HYDROX/AL HYDROX/SIMETH 30 ML UDC TP SCH ×4 (05:37→23:47)
[2018-05-25] MEDS: ESOMEPRAZOLE MAG TRIHYDRATE 20 MG CAPSULE.DR GT SCH (05:37)
[2018-05-25 06:30] VITALS: BP 118/60
[2018-05-25 07:41] VITALS: BP 108/57
[2018-05-25] MEDS: SEVELAMER CARBONATE 0.8 GM POWD.PACK GT SCH ×3 (08:00→17:51)
[2018-05-25] MEDS: NYSTATIN/TRIAMCIN 15 GM CREAM 15 GM TUBE TP SCH ×4 (09:00→21:01)
[2018-05-25] MEDS: HYDROGEN PEROXIDE 480 ML BOTTLE TP SCH ×2 (09:00→21:00)
[2018-05-25] MEDS: HYDROGEL DRESSING 90 GM TUBE TP SCH ×3 (09:00→21:00)
[2018-05-25] MEDS: BACI/NEOM/POLY B OINT PKT 1 UDPKT PACKET TP SCH ×2 (09:00→21:01)
[2018-05-25] MEDS: NYSTATIN/TRIAMCIN OINT 15 GM TUBE TP SCH ×2 (09:00→21:01)
[2018-05-25] MEDS: METOCLOPRAMIDE HCL 10 MG/10 ML UDC GT SCH ×2 (09:32→20:59)
[2018-05-25] MEDS: ACETAMINOPHEN 650 MG/20 ML UDC- SA PATIENTS-PAIN ONLY GT SCH ×3 (09:32→23:47)
[2018-05-25] MEDS: POLYVINYL ALCOHOL 15 ML BOTTLE EACHEYE SCH ×2 (09:32→20:59)
[2018-05-25] MEDS: VIT B CMPLX 3/FA/VIT C/BIOTIN 1 TAB TABLET GT SCH (09:32)
[2018-05-25] MEDS: ACIDOPHILUS/BULGARICUS 1 EACH TAB.CHEW GT SCH ×2 (09:32→17:51)
[2018-05-25] MEDS: ASCORBIC ACID 500 MG TABLET GT SCH (09:32)
[2018-05-25] MEDS: HEPARIN SODIUM, PORCINE 5000 UNITS/1 ML VIAL SQ SCH ×2 (09:33→21:00)
[2018-05-25] MEDS: INSULIN GLARGINE, 100 UNIT/ML CARTRIDGE SQ SCH ×2 (09:34→21:02)
[2018-05-25] MEDS: hydrALAZINE HCL 25 MG TABLET GT SCH (17:51)
[2018-05-25 18:48] VITALS: BP 162/73
--- NOTE | 2018-05-25 19:10 | NUR ---
PT REC'D TRACHED ON VENT SETTINGS CHARTED, PT RESPONSIVE TO PAIN, NO SOB, NO RESPIRATORY DISTRESS NOTED AT THIS TIME, TRACH TUBE PATENT, SECURE, IN PLACE, AMBU BAG @ HOB, VENT ALARMS ON AND AUDIBLE, PT SUCTIONED W SMALL AMOUNT OF THICK PALE YELLOW SECRETIONS, TX GIVEN WITH NO ADVERSE REACTION, WILL CONTINUE TO MONITOR. Addendum: 05/25/18 at 1910 by ARGENTINA AVILA RT Amended: Links added.
[2018-05-25 20:49] VITALS: BP 160/57
[2018-05-25] MEDS: METOPROLOL TARTRATE 50 MG TABLET GT SCH (21:01)
[2018-05-26] MEDS: BLOOD SUGAR DIAGNOSTIC 1 EACH STRIP IN SCH ×4 (00:23→18:24)
[2018-05-26] MEDS: INSULIN REGULAR, HUMAN 100 UNIT/ML 3 ML VIAL SQ PRN ×3 (00:43→18:26)
[2018-05-26 00:45] VITALS: BP 142/67
[2018-05-26] MEDS: ALBUTEROL FS 2.5 MG/3 ML VIAL.NEB NEB SCH ×4 (01:24→19:43)
[2018-05-26] MEDS: IPRATROPIUM NEB FS 0.5 MG/2.5 ML AMPUL.NEB NEB SCH ×4 (01:24→19:43)
[2018-05-26] MEDS: ESOMEPRAZOLE MAG TRIHYDRATE 20 MG CAPSULE.DR GT SCH (05:25)
[2018-05-26] MEDS: PROSOURCE / PROSTAT (PYXIS) 30 ML UDC GT SCH ×5 (05:25→21:04)
[2018-05-26] MEDS: MAG HYDROX/AL HYDROX/SIMETH 30 ML UDC TP SCH ×4 (05:25→23:53)
[2018-05-26 06:57] VITALS: BP 154/74
[2018-05-26 07:48] VITALS: BP 158/53
--- NOTE | 2018-05-26 07:48 | NUR ---
PT RECD TRACHED ON [facility] VENT. NO RESP DISTRESS OR SOB NOTED. TRACH PATENT AND SECURED. SX'D FOR THICK MOD AMT OF PALE YELLOW SECRETIONS. ALARMS ARE SET AND AUDIBLE. VENT PLUGGED INTO RED OUTLET. AMBU BAG BEDSIDE. WILL CONTINUE TO MONITOR. Addendum: 05/26/18 at 0900 by LOUISA CRUZ RT Amended: Links added.
[2018-05-26] MEDS: SEVELAMER CARBONATE 0.8 GM POWD.PACK GT SCH ×3 (08:00→17:20)
[2018-05-26] MEDS: BACI/NEOM/POLY B OINT PKT 1 UDPKT PACKET TP SCH ×2 (09:00→21:35)
[2018-05-26] MEDS: HYDROGEN PEROXIDE 480 ML BOTTLE TP SCH ×2 (09:00→21:35)
[2018-05-26] MEDS: HYDROGEL DRESSING 90 GM TUBE TP SCH ×3 (09:00→21:35)
[2018-05-26] MEDS: NYSTATIN/TRIAMCIN OINT 15 GM TUBE TP SCH ×2 (09:00→21:35)
[2018-05-26] MEDS: NYSTATIN/TRIAMCIN 15 GM CREAM 15 GM TUBE TP SCH ×4 (09:00→21:35)
[2018-05-26] MEDS: POLYVINYL ALCOHOL 15 ML BOTTLE EACHEYE SCH ×2 (09:54→21:04)
[2018-05-26] MEDS: ASCORBIC ACID 500 MG TABLET GT SCH (09:55)
[2018-05-26] MEDS: METOPROLOL TARTRATE 50 MG TABLET GT SCH ×2 (09:55→21:08)
[2018-05-26] MEDS: VIT B CMPLX 3/FA/VIT C/BIOTIN 1 TAB TABLET GT SCH (09:55)
[2018-05-26] MEDS: ACIDOPHILUS/BULGARICUS 1 EACH TAB.CHEW GT SCH ×2 (09:55→17:20)
[2018-05-26] MEDS: METOCLOPRAMIDE HCL 10 MG/10 ML UDC GT SCH ×2 (09:55→21:04)
[2018-05-26] MEDS: hydrALAZINE HCL 25 MG TABLET GT SCH ×2 (09:55→17:00)
[2018-05-26] MEDS: HEPARIN SODIUM, PORCINE 5000 UNITS/1 ML VIAL SQ SCH ×2 (09:56→21:06)
[2018-05-26] MEDS: INSULIN GLARGINE, 100 UNIT/ML CARTRIDGE SQ SCH ×2 (09:57→22:48)
[2018-05-26 12:00] VITALS: BP 132/74
[2018-05-26 18:28] VITALS: BP 129/70
[2018-05-26 19:46] VITALS: BP 123/75
--- NOTE | 2018-05-26 20:09 | NUR ---
RT NOTE PT RECEIVED ON [facility] VENT ON THE FOLLOWING NOTED SETTINGS. NO RESP DISTRESS OR SOB NOTED. PT SUCTIONED: SMALL THIN WHITE SECRETIONS. BREATHING TX GIVEN, NO ADVERSE REACTIONS NOTED AT THIS TIME. VENT IS PLUGGED INTO RED OUTLET. ALARMS ARE ON AND AUDIBLE. AMBU BAG AND SPARE TRACH ARE AT BEDSIDE. WILL CONT TO MONITOR. Addendum: 05/26/18 at 2009 by SHANI PEÑA RT Amended: Links added.
[2018-05-26] MEDS: ACETAMINOPHEN 650 MG/20 ML UDC- SA PATIENTS-PAIN ONLY GT SCH (21:05)
[2018-05-27 00:05] VITALS: BP 133/75
[2018-05-27] MEDS: BLOOD SUGAR DIAGNOSTIC 1 EACH STRIP IN SCH ×4 (00:35→18:08)
[2018-05-27] MEDS: INSULIN REGULAR, HUMAN 100 UNIT/ML 3 ML VIAL SQ PRN ×2 (00:35→06:29)
[2018-05-27] MEDS: ALBUTEROL FS 2.5 MG/3 ML VIAL.NEB NEB SCH ×4 (01:25→19:52)
[2018-05-27] MEDS: IPRATROPIUM NEB FS 0.5 MG/2.5 ML AMPUL.NEB NEB SCH ×4 (01:25→19:52)
[2018-05-27] MEDS: PROSOURCE / PROSTAT (PYXIS) 30 ML UDC GT SCH ×5 (05:32→21:17)
[2018-05-27] MEDS: MAG HYDROX/AL HYDROX/SIMETH 30 ML UDC TP SCH ×4 (05:32→23:30)
[2018-05-27] MEDS: ESOMEPRAZOLE MAG TRIHYDRATE 20 MG CAPSULE.DR GT SCH (05:32)
[2018-05-27 06:05] VITALS: BP 129/67
--- NOTE | 2018-05-27 07:36 | NUR ---
Female trach pt received on a mechanical vent. Pt receives Q6 breathing tx. Pt trach is secure. Vent is plugged into a red outlet, alarms are set and audible, and BMV is at bedside. Addendum: 05/27/18 at 0737 by ANNMARIE CARVER RT Amended: Links added.
[2018-05-27] MEDS: SEVELAMER CARBONATE 0.8 GM POWD.PACK GT SCH ×3 (08:00→18:08)
[2018-05-27 08:22] VITALS: BP 121/67
[2018-05-27] MEDS: HYDROGEL DRESSING 90 GM TUBE TP SCH ×3 (09:00→21:58)
[2018-05-27] MEDS: BACI/NEOM/POLY B OINT PKT 1 UDPKT PACKET TP SCH ×2 (09:00→21:58)
[2018-05-27] MEDS: NYSTATIN/TRIAMCIN OINT 15 GM TUBE TP SCH ×2 (09:00→21:58)
[2018-05-27] MEDS: HYDROGEN PEROXIDE 480 ML BOTTLE TP SCH ×2 (09:00→21:58)
[2018-05-27] MEDS: POLYVINYL ALCOHOL 15 ML BOTTLE EACHEYE SCH ×2 (09:17→21:17)
[2018-05-27] MEDS: ACETAMINOPHEN 650 MG/20 ML UDC- SA PATIENTS-PAIN ONLY GT SCH ×2 (09:17→21:17)
[2018-05-27] MEDS: ACIDOPHILUS/BULGARICUS 1 EACH TAB.CHEW GT SCH ×2 (09:17→17:00)
[2018-05-27] MEDS: ASCORBIC ACID 500 MG TABLET GT SCH (09:17)
[2018-05-27] MEDS: METOCLOPRAMIDE HCL 10 MG/10 ML UDC GT SCH ×2 (09:17→21:17)
[2018-05-27] MEDS: VIT B CMPLX 3/FA/VIT C/BIOTIN 1 TAB TABLET GT SCH (09:17)
[2018-05-27] MEDS: HEPARIN SODIUM, PORCINE 5000 UNITS/1 ML VIAL SQ SCH ×2 (09:18→21:18)
[2018-05-27] MEDS: INSULIN GLARGINE, 100 UNIT/ML CARTRIDGE SQ SCH ×2 (09:19→21:59)
[2018-05-27] MEDS: hydrALAZINE HCL 25 MG TABLET GT SCH (17:00)
[2018-05-27] MEDS: LACTULOSE 10 G/15 ML UDC (PYXIS) GT PRN (18:09)
[2018-05-27] MEDS: NEPRO 1,000 ML BOTTLE GT PRN (18:09)
[2018-05-27 18:51] VITALS: BP 162/71
[2018-05-27 19:23] VITALS: BP 136/64
--- NOTE | 2018-05-27 19:52 | NUR ---
RT NOTE: RECEIVED TRACH PT ON [facility] VENT ON NOTED SETTINGS PER MD ORDERS. TRACH IS PATENT AND SECURED. CERAMIC PLATER DONE. AMBU BAG @ BEDSIDE. Q6 BREATHING TX GIVEN WITH NO ADVERSE REACTION NOTED. SX DONE PRN. VENT PLUGGED INTO RED OUTLET. ALARMS ON AND AUDIBLE. NO RESP DISTRESS AT THIS TIME. WILL CONT TO MONITOR PT. Addendum: 05/28/18 at 0255 by FREDDY PALMA RT Amended: Links added.
[2018-05-27] MEDS: METOPROLOL TARTRATE 50 MG TABLET GT SCH (21:18)
[2018-05-28 00:18] VITALS: BP 107/53
[2018-05-28] MEDS: BLOOD SUGAR DIAGNOSTIC 1 EACH STRIP IN SCH ×4 (00:50→17:24)
[2018-05-28] MEDS: INSULIN REGULAR, HUMAN 100 UNIT/ML 3 ML VIAL SQ PRN ×4 (00:52→17:25)
[2018-05-28] MEDS: IPRATROPIUM NEB FS 0.5 MG/2.5 ML AMPUL.NEB NEB SCH ×4 (01:48→19:39)
[2018-05-28] MEDS: ALBUTEROL FS 2.5 MG/3 ML VIAL.NEB NEB SCH ×4 (01:48→19:39)
[2018-05-28] MEDS: ESOMEPRAZOLE MAG TRIHYDRATE 20 MG CAPSULE.DR GT SCH (05:52)
[2018-05-28] MEDS: MAG HYDROX/AL HYDROX/SIMETH 30 ML UDC TP SCH ×4 (05:52→23:55)
[2018-05-28] MEDS: PROSOURCE / PROSTAT (PYXIS) 30 ML UDC GT SCH ×5 (05:52→20:53)
[2018-05-28 06:14] VITALS: BP 153/72
[2018-05-28] MEDS: SEVELAMER CARBONATE 0.8 GM POWD.PACK GT SCH ×3 (08:00→17:24)
[2018-05-28 08:04] VITALS: BP 156/90
[2018-05-28] MEDS: BACI/NEOM/POLY B OINT PKT 1 UDPKT PACKET TP SCH ×2 (09:00→21:25)
[2018-05-28] MEDS: HYDROGEL DRESSING 90 GM TUBE TP SCH ×3 (09:00→21:25)
[2018-05-28] MEDS: NYSTATIN/TRIAMCIN OINT 15 GM TUBE TP SCH ×2 (09:00→21:25)
[2018-05-28] MEDS: HYDROGEN PEROXIDE 480 ML BOTTLE TP SCH ×2 (09:00→21:25)
[2018-05-28] MEDS: POLYVINYL ALCOHOL 15 ML BOTTLE EACHEYE SCH ×2 (09:31→20:53)
[2018-05-28] MEDS: ACIDOPHILUS/BULGARICUS 1 EACH TAB.CHEW GT SCH ×2 (09:32→17:24)
[2018-05-28] MEDS: hydrALAZINE HCL 25 MG TABLET GT SCH ×2 (09:32→17:24)
[2018-05-28] MEDS: ASCORBIC ACID 500 MG TABLET GT SCH (09:33)
[2018-05-28] MEDS: VIT B CMPLX 3/FA/VIT C/BIOTIN 1 TAB TABLET GT SCH (09:33)
[2018-05-28] MEDS: ACETAMINOPHEN 650 MG/20 ML UDC- SA PATIENTS-PAIN ONLY GT SCH ×2 (09:33→20:53)
[2018-05-28] MEDS: METOPROLOL TARTRATE 50 MG TABLET GT SCH ×2 (09:33→21:01)
[2018-05-28] MEDS: METOCLOPRAMIDE HCL 10 MG/10 ML UDC GT SCH ×2 (09:33→20:53)
[2018-05-28] MEDS: HEPARIN SODIUM, PORCINE 5000 UNITS/1 ML VIAL SQ SCH ×2 (09:34→20:54)
[2018-05-28] MEDS: INSULIN GLARGINE, 100 UNIT/ML CARTRIDGE SQ SCH ×2 (09:35→21:47)
[2018-05-28 18:20] VITALS: BP 151/69
--- NOTE | 2018-05-28 20:42 | NUR ---
PATIENT WAS RECEIVED ON CONTINUOUS VENT SUPPORT ON NOTED VENT SETTINGS. ROOF TRUSS BUILDER DONE. AMBU BAG @ BEDSIDE. Q6 BREATHING TX GIVEN WITH NO ADVERSE REACTION NOTED. SUCTION DONE PRN.TRACH TUBE PATENT AND SECURED. ALARMS ON AND AUDIBLE. NO RESPIRATORY DISTRESS NOTED AT THIS TIME. WILL CONTINUE TO MONITOR PATIENT. Addendum: 05/28/18 at 2041 by FERMÍN DAMON RT Amended: Links added.
[2018-05-28 21:23] VITALS: BP 104/50
[2018-05-29] MEDS: BLOOD SUGAR DIAGNOSTIC 1 EACH STRIP IN SCH ×5 (00:11→23:20)
[2018-05-29] MEDS: INSULIN REGULAR, HUMAN 100 UNIT/ML 3 ML VIAL SQ PRN ×3 (00:13→23:21)
[2018-05-29 00:31] VITALS: BP 96/55
[2018-05-29] MEDS: ALBUTEROL FS 2.5 MG/3 ML VIAL.NEB NEB SCH ×4 (01:56→19:26)
[2018-05-29] MEDS: IPRATROPIUM NEB FS 0.5 MG/2.5 ML AMPUL.NEB NEB SCH ×4 (01:56→19:26)
[2018-05-29] MEDS: PROSOURCE / PROSTAT (PYXIS) 30 ML UDC GT SCH ×5 (05:39→21:33)
[2018-05-29] MEDS: MAG HYDROX/AL HYDROX/SIMETH 30 ML UDC TP SCH ×4 (05:39→23:20)
[2018-05-29] MEDS: ESOMEPRAZOLE MAG TRIHYDRATE 20 MG CAPSULE.DR GT SCH (05:39)
[2018-05-29 06:03] VITALS: BP 93/52
[2018-05-29 07:57] VITALS: BP 171/80
--- NOTE | 2018-05-29 08:00 | NUR ---
pt rec'd trached on [facility] vent on ac mode. no resp distress or sob noted. trach patent and secured. sx'd for thick mod amt of pale yellow secretions. geriatric nurse practitioner cuff pressure noted. alarms are set audible. vent plugged into red outlet. ambu bag bedside. will continue to monitor. Addendum: 05/29/18 at 0835 by LOUISA CRUZ RT Amended: Links added.
[2018-05-29] MEDS: POLYVINYL ALCOHOL 15 ML BOTTLE EACHEYE SCH ×2 (08:24→21:33)
[2018-05-29] MEDS: ACIDOPHILUS/BULGARICUS 1 EACH TAB.CHEW GT SCH ×2 (08:24→16:56)
[2018-05-29] MEDS: SEVELAMER CARBONATE 0.8 GM POWD.PACK GT SCH ×3 (08:24→17:08)
[2018-05-29] MEDS: ASCORBIC ACID 500 MG TABLET GT SCH (08:25)
[2018-05-29] MEDS: METOCLOPRAMIDE HCL 10 MG/10 ML UDC GT SCH ×2 (08:25→21:33)
[2018-05-29] MEDS: VIT B CMPLX 3/FA/VIT C/BIOTIN 1 TAB TABLET GT SCH (08:25)
[2018-05-29] MEDS: INSULIN GLARGINE, 100 UNIT/ML CARTRIDGE SQ SCH ×2 (08:33→21:36)
[2018-05-29] MEDS: HEPARIN SODIUM, PORCINE 5000 UNITS/1 ML VIAL SQ SCH ×2 (08:34→21:34)
[2018-05-29] MEDS: NYSTATIN/TRIAMCIN OINT 15 GM TUBE TP SCH ×2 (09:00→21:35)
[2018-05-29] MEDS: HYDROGEN PEROXIDE 480 ML BOTTLE TP SCH ×2 (09:00→21:35)
[2018-05-29] MEDS: ACETAMINOPHEN 650 MG/20 ML UDC- SA PATIENTS-PAIN ONLY GT SCH ×2 (09:00→21:33)
[2018-05-29] MEDS: HYDROGEL DRESSING 90 GM TUBE TP SCH ×3 (09:00→21:35)
[2018-05-29] MEDS: hydrALAZINE HCL 25 MG TABLET GT SCH (16:55)
[2018-05-29 18:00] VITALS: BP 150/82
--- NOTE | 2018-05-29 19:45 | NUR ---
RT NOTE PT RECEIVED ON [facility] VENT ON THE FOLLOWING NOTED SETTINGS. NO RESP DISTRESS OR SOB NOTED AT THIS TIME. PT SUCTIONED: LARGE THIN WHITE/YELLOW SECRETIONS NOTED. BREATHING TX GIVEN, NO ADVERSE REACTIONS NOTED. VENT IS PLUGGED INTO RED OUTLET. ALARMS ARE ON AND AUDIBLE. AMBU BAG AND SPARE TRACH ARE AT BEDSIDE. WILL CONT TO MONITOR PT. Addendum: 05/29/18 at 1946 by SHANI PEÑA RT Amended: Links added.
[2018-05-29 20:14] VITALS: BP 145/59
[2018-05-29] MEDS: METOPROLOL TARTRATE 50 MG TABLET GT SCH (21:35)
[2018-05-29] MEDS: CLONIDINE HCL 0.2 MG TABLET GT PRN (23:21)
[2018-05-30] VITALS (7 sets, daily range): BP systolic 109–161; BP diastolic 52–89
[2018-05-30] MEDS: IPRATROPIUM NEB FS 0.5 MG/2.5 ML AMPUL.NEB NEB SCH ×4 (01:35→19:43)
[2018-05-30] MEDS: ALBUTEROL FS 2.5 MG/3 ML VIAL.NEB NEB SCH ×4 (01:35→19:43)
[2018-05-30] MEDS: PROSOURCE / PROSTAT (PYXIS) 30 ML UDC GT SCH ×5 (05:00→21:06)
[2018-05-30] MEDS: MAG HYDROX/AL HYDROX/SIMETH 30 ML UDC TP SCH ×4 (05:00→22:28)
[2018-05-30] MEDS: ESOMEPRAZOLE MAG TRIHYDRATE 20 MG CAPSULE.DR GT SCH (06:06)
[2018-05-30] MEDS: BLOOD SUGAR DIAGNOSTIC 1 EACH STRIP IN SCH ×3 (06:06→18:10)
[2018-05-30] MEDS: INSULIN REGULAR, HUMAN 100 UNIT/ML 3 ML VIAL SQ PRN ×4 (06:07→18:12)
[2018-05-30] MEDS: NEPRO 1,000 ML BOTTLE GT PRN (06:08)
[2018-05-30] MEDS: CLONIDINE HCL 0.2 MG TABLET GT PRN (06:26)
[2018-05-30] MEDS: POLYVINYL ALCOHOL 15 ML BOTTLE EACHEYE SCH ×2 (09:09→21:06)
[2018-05-30] MEDS: SEVELAMER CARBONATE 0.8 GM POWD.PACK GT SCH ×3 (09:09→17:11)
[2018-05-30] MEDS: ACIDOPHILUS/BULGARICUS 1 EACH TAB.CHEW GT SCH ×2 (09:10→17:10)
[2018-05-30] MEDS: METOPROLOL TARTRATE 50 MG TABLET GT SCH ×2 (09:11→21:26)
[2018-05-30] MEDS: hydrALAZINE HCL 25 MG TABLET GT SCH ×2 (09:13→17:00)
[2018-05-30] MEDS: METOCLOPRAMIDE HCL 10 MG/10 ML UDC GT SCH ×2 (09:15→21:08)
[2018-05-30] MEDS: ASCORBIC ACID 500 MG TABLET GT SCH (09:16)
[2018-05-30] MEDS: HYDROGEN PEROXIDE 480 ML BOTTLE TP SCH ×2 (09:17→21:11)
[2018-05-30] MEDS: NYSTATIN/TRIAMCIN OINT 15 GM TUBE TP SCH ×2 (09:17→21:11)
[2018-05-30] MEDS: HYDROGEL DRESSING 90 GM TUBE TP SCH ×3 (09:17→21:11)
[2018-05-30] MEDS: ACETAMINOPHEN 650 MG/20 ML UDC- SA PATIENTS-PAIN ONLY GT SCH ×2 (09:18→21:11)
[2018-05-30] MEDS: HEPARIN SODIUM, PORCINE 5000 UNITS/1 ML VIAL SQ SCH ×2 (09:31→21:27)
[2018-05-30] MEDS: INSULIN GLARGINE, 100 UNIT/ML CARTRIDGE SQ SCH ×2 (09:32→22:27)
[2018-05-30] MEDS: VIT B CMPLX 3/FA/VIT C/BIOTIN 1 TAB TABLET GT SCH (09:41)
--- NOTE | 2018-05-30 21:28 | NUR ---
RN NOTES LOPRESSOR HELD DUE TO PARAMETERS HOLD IF SBP 110 BELOW, SBP 109/52, HEART RATE 78
[2018-05-31] VITALS: BP 137/55
[2018-05-31] MEDS: IPRATROPIUM NEB FS 0.5 MG/2.5 ML AMPUL.NEB NEB SCH ×4 (01:56→19:21)
[2018-05-31] MEDS: ALBUTEROL FS 2.5 MG/3 ML VIAL.NEB NEB SCH ×4 (01:56→19:21)
[2018-05-31] MEDS: INSULIN REGULAR, HUMAN 100 UNIT/ML 3 ML VIAL SQ PRN ×4 (02:06→18:26)
[2018-05-31] MEDS: NEPRO 1,000 ML BOTTLE GT PRN (02:45)
[2018-05-31] MEDS: MAG HYDROX/AL HYDROX/SIMETH 30 ML UDC TP SCH ×4 (05:10→23:50)
[2018-05-31] MEDS: PROSOURCE / PROSTAT (PYXIS) 30 ML UDC GT SCH ×5 (05:10→21:05)
[2018-05-31] MEDS: ESOMEPRAZOLE MAG TRIHYDRATE 20 MG CAPSULE.DR GT SCH (05:12)
[2018-05-31] MEDS: BLOOD SUGAR DIAGNOSTIC 1 EACH STRIP IN SCH ×5 (06:07→23:58)
[2018-05-31 06:10] VITALS: BP 176/76
[2018-05-31] MEDS: CLONIDINE HCL 0.2 MG TABLET GT PRN (06:21)
[2018-05-31] MEDS: SEVELAMER CARBONATE 0.8 GM POWD.PACK GT SCH ×3 (08:00→18:25)
[2018-05-31 08:02] VITALS: BP 124/52
--- NOTE | 2018-05-31 08:23 | NUR ---
PT REC'D TRACHED ON [facility] VENT ON AC MODE. NO RESP DISTRESS OR SOB NOTED. TRACH PATENT AND SECURED. SX'D FOR THICK MOD AMT OF PALE YELLWO SECRETIONS. ALARMS ARE SET AND AUDIBLE. VENT PLUGGED INTO RED OUTLET. AMBU BAG BEDSIDE. WILL CONTINUE TO MONITOR. Addendum: 05/31/18 at 0913 by LOUISA CRUZ RT Amended: Links added.
[2018-05-31] MEDS: NYSTATIN/TRIAMCIN OINT 15 GM TUBE TP SCH ×2 (09:00→21:33)
[2018-05-31] MEDS: HEPARIN SODIUM, PORCINE 5000 UNITS/1 ML VIAL SQ SCH ×2 (09:00→21:05)
[2018-05-31] MEDS: HYDROGEL DRESSING 90 GM TUBE TP SCH ×3 (09:00→21:32)
[2018-05-31] MEDS: hydrALAZINE HCL 25 MG TABLET GT SCH ×2 (09:00→17:09)
[2018-05-31] MEDS: HYDROGEN PEROXIDE 480 ML BOTTLE TP SCH ×2 (09:00→21:32)
[2018-05-31] MEDS: INSULIN GLARGINE, 100 UNIT/ML CARTRIDGE SQ SCH ×2 (09:00→22:11)
[2018-05-31] MEDS: POLYVINYL ALCOHOL 15 ML BOTTLE EACHEYE SCH ×2 (09:38→21:05)
[2018-05-31] MEDS: ACIDOPHILUS/BULGARICUS 1 EACH TAB.CHEW GT SCH ×2 (09:40→17:10)
[2018-05-31] MEDS: METOPROLOL TARTRATE 50 MG TABLET GT SCH ×2 (09:41→21:06)
[2018-05-31] MEDS: METOCLOPRAMIDE HCL 10 MG/10 ML UDC GT SCH ×2 (09:43→21:05)
[2018-05-31] MEDS: ACETAMINOPHEN 650 MG/20 ML UDC- SA PATIENTS-PAIN ONLY GT SCH ×2 (09:44→21:05)
[2018-05-31] MEDS: ASCORBIC ACID 500 MG TABLET GT SCH (09:47)
[2018-05-31] MEDS: VIT B CMPLX 3/FA/VIT C/BIOTIN 1 TAB TABLET GT SCH (09:49)
[2018-05-31 12:05] VITALS: BP 136/55
[2018-05-31 18:15] VITALS: BP 136/60
--- NOTE | 2018-05-31 19:40 | NUR ---
RT NOTE PT RECEIVED ON [facility] VENT ON THE FOLLOWING NOTED SETTINGS. NO RESP DISTRESS OR SOB NOTED AT THIS TIME. BREATHING TX GIVEN, NO ADVERSE REACTIONS NOTED. PT SUCTIONED: MOD THIN WHITE/CLEAR SECRETIONS. VENT IS PLUGGED INTO RED OUTLET. ALARMS ARE ON AND AUDIBLE. SPARE TRACH AND AMBU BAG ARE AT BEDSIDE. WILL CONT TO MONITOR PT. Addendum: 05/31/18 at 1940 by SHANI PEÑA RT Amended: Links added.
[2018-06-01 00:22] VITALS: BP 129/77
[2018-06-01] MEDS: ALBUTEROL FS 2.5 MG/3 ML VIAL.NEB NEB SCH ×4 (01:40→19:30)
[2018-06-01] MEDS: IPRATROPIUM NEB FS 0.5 MG/2.5 ML AMPUL.NEB NEB SCH ×4 (01:40→19:30)
[2018-06-01] MEDS: PROSOURCE / PROSTAT (PYXIS) 30 ML UDC GT SCH ×5 (05:48→21:02)
[2018-06-01] MEDS: MAG HYDROX/AL HYDROX/SIMETH 30 ML UDC TP SCH ×4 (05:49→23:49)
[2018-06-01] MEDS: BLOOD SUGAR DIAGNOSTIC 1 EACH STRIP IN SCH ×3 (05:49→17:41)
[2018-06-01] MEDS: ESOMEPRAZOLE MAG TRIHYDRATE 20 MG CAPSULE.DR GT SCH (05:49)
[2018-06-01] MEDS: INSULIN REGULAR, HUMAN 100 UNIT/ML 3 ML VIAL SQ PRN ×3 (05:50→17:42)
[2018-06-01 06:05] VITALS: BP 139/62
--- NOTE | 2018-06-01 07:30 | NUR ---
Pt received on a mechanical vent. Pt trach is secure. Vent is plugged into a red outlet, alarms are set and audible, and BMV is at bedside. Addendum: 06/01/18 at 0731 by ANNMARIE CARVER RT Amended: Links added.
[2018-06-01 07:51] VITALS: BP 143/75
[2018-06-01] MEDS: POLYVINYL ALCOHOL 15 ML BOTTLE EACHEYE SCH ×2 (08:31→21:01)
[2018-06-01] MEDS: METOCLOPRAMIDE HCL 10 MG/10 ML UDC GT SCH ×2 (08:31→21:02)
[2018-06-01] MEDS: SEVELAMER CARBONATE 0.8 GM POWD.PACK GT SCH ×3 (08:31→17:41)
[2018-06-01] MEDS: VIT B CMPLX 3/FA/VIT C/BIOTIN 1 TAB TABLET GT SCH (08:31)
[2018-06-01] MEDS: ACIDOPHILUS/BULGARICUS 1 EACH TAB.CHEW GT SCH ×2 (08:31→17:41)
[2018-06-01] MEDS: ACETAMINOPHEN 650 MG/20 ML UDC- SA PATIENTS-PAIN ONLY GT SCH ×2 (08:32→21:02)
[2018-06-01] MEDS: ASCORBIC ACID 500 MG TABLET GT SCH (08:32)
[2018-06-01] MEDS: INSULIN GLARGINE, 100 UNIT/ML CARTRIDGE SQ SCH ×2 (08:33→21:48)
[2018-06-01] MEDS: HEPARIN SODIUM, PORCINE 5000 UNITS/1 ML VIAL SQ SCH ×2 (08:34→21:03)
[2018-06-01] MEDS: NYSTATIN/TRIAMCIN OINT 15 GM TUBE TP SCH ×2 (09:35→21:40)
[2018-06-01] MEDS: HYDROGEN PEROXIDE 480 ML BOTTLE TP SCH ×2 (09:35→21:40)
[2018-06-01] MEDS: HYDROGEL DRESSING 90 GM TUBE TP SCH ×3 (09:35→21:40)
[2018-06-01 14:40] VITALS: BP 136/54
[2018-06-01] MEDS: hydrALAZINE HCL 25 MG TABLET GT SCH (17:52)
[2018-06-01] MEDS: NEPRO 1,000 ML BOTTLE GT PRN (18:09)
[2018-06-01 18:52] VITALS: BP 154/71
[2018-06-01] MEDS: METOPROLOL TARTRATE 50 MG TABLET GT SCH (21:03)
[2018-06-02 00:10] VITALS: BP 149/56
[2018-06-02] MEDS: BLOOD SUGAR DIAGNOSTIC 1 EACH STRIP IN SCH ×4 (00:52→18:01)
[2018-06-02] MEDS: INSULIN REGULAR, HUMAN 100 UNIT/ML 3 ML VIAL SQ PRN ×4 (00:53→18:02)
[2018-06-02 01:17] VITALS: BP 128/64
[2018-06-02] MEDS: ALBUTEROL FS 2.5 MG/3 ML VIAL.NEB NEB SCH ×4 (01:55→19:41)
[2018-06-02] MEDS: IPRATROPIUM NEB FS 0.5 MG/2.5 ML AMPUL.NEB NEB SCH ×4 (01:55→19:41)
[2018-06-02] MEDS: CLONIDINE HCL 0.2 MG TABLET GT PRN (05:52)
[2018-06-02] MEDS: MAG HYDROX/AL HYDROX/SIMETH 30 ML UDC TP SCH ×4 (05:52→23:09)
[2018-06-02] MEDS: PROSOURCE / PROSTAT (PYXIS) 30 ML UDC GT SCH ×5 (05:52→21:11)
[2018-06-02] MEDS: ESOMEPRAZOLE MAG TRIHYDRATE 20 MG CAPSULE.DR GT SCH (05:52)
[2018-06-02 06:52] VITALS: BP 165/76
[2018-06-02 07:38] VITALS: BP 118/48
[2018-06-02] MEDS: SEVELAMER CARBONATE 0.8 GM POWD.PACK GT SCH ×3 (08:00→17:29)
[2018-06-02] MEDS: INSULIN GLARGINE, 100 UNIT/ML CARTRIDGE SQ SCH ×2 (09:00→22:23)
[2018-06-02] MEDS: NYSTATIN/TRIAMCIN OINT 15 GM TUBE TP SCH ×2 (09:00→21:38)
[2018-06-02] MEDS: hydrALAZINE HCL 25 MG TABLET GT SCH ×2 (09:00→17:00)
[2018-06-02] MEDS: HYDROGEL DRESSING 90 GM TUBE TP SCH ×3 (09:00→21:38)
[2018-06-02] MEDS: HYDROGEN PEROXIDE 480 ML BOTTLE TP SCH ×2 (09:00→21:38)
[2018-06-02] MEDS: POLYVINYL ALCOHOL 15 ML BOTTLE EACHEYE SCH ×2 (09:56→21:11)
[2018-06-02] MEDS: METOPROLOL TARTRATE 50 MG TABLET GT SCH ×2 (09:57→21:13)
[2018-06-02] MEDS: ACIDOPHILUS/BULGARICUS 1 EACH TAB.CHEW GT SCH ×2 (09:57→17:29)
[2018-06-02] MEDS: ASCORBIC ACID 500 MG TABLET GT SCH (09:58)
[2018-06-02] MEDS: METOCLOPRAMIDE HCL 10 MG/10 ML UDC GT SCH ×2 (09:58→21:11)
[2018-06-02] MEDS: ACETAMINOPHEN 650 MG/20 ML UDC- SA PATIENTS-PAIN ONLY GT SCH ×2 (09:58→21:11)
[2018-06-02] MEDS: VIT B CMPLX 3/FA/VIT C/BIOTIN 1 TAB TABLET GT SCH (09:58)
[2018-06-02] MEDS: HEPARIN SODIUM, PORCINE 5000 UNITS/1 ML VIAL SQ SCH ×2 (10:00→21:12)
[2018-06-02 18:21] VITALS: BP 128/55
--- NOTE | 2018-06-02 19:41 | NUR ---
RT NOTE: RECEIVED TRACH PT ON [facility] VENT ON NOTED SETTINGS PER MD ORDERS. TRACH IS PATENT AND SECURED. TUBERCULOSIS SPECIALIST DONE. Q6 BREATHING TX GIVEN WITH NO ADVERSE REACTION NOTED. SX DONE PRN. VENT PLUGGED INTO RED OUTLET. ALARMS ON AND AUDIBLE. NACHO BAG @ BEDSIDE. NO RESP DISTRESS AT THIS TIME. WILL CONT TO MONITOR PT. Addendum: 06/02/18 at 2222 by FREDDY PALMA RT Amended: Links added.
[2018-06-02 21:08] VITALS: BP 134/61
[2018-06-02] MEDS: NEPRO 1,000 ML BOTTLE GT PRN (22:24)
[2018-06-03] VITALS (7 sets, daily range): BP systolic 127–156; BP diastolic 58–77
[2018-06-03] MEDS: BLOOD SUGAR DIAGNOSTIC 1 EACH STRIP IN SCH ×4 (00:52→18:01)
[2018-06-03] MEDS: INSULIN REGULAR, HUMAN 100 UNIT/ML 3 ML VIAL SQ PRN ×3 (00:54→18:02)
[2018-06-03] MEDS: IPRATROPIUM NEB FS 0.5 MG/2.5 ML AMPUL.NEB NEB SCH ×4 (01:12→19:49)
[2018-06-03] MEDS: ALBUTEROL FS 2.5 MG/3 ML VIAL.NEB NEB SCH ×4 (01:12→19:49)
[2018-06-03] MEDS: PROSOURCE / PROSTAT (PYXIS) 30 ML UDC GT SCH ×5 (05:28→21:39)
[2018-06-03] MEDS: MAG HYDROX/AL HYDROX/SIMETH 30 ML UDC TP SCH ×4 (05:28→23:00)
[2018-06-03] MEDS: ESOMEPRAZOLE MAG TRIHYDRATE 20 MG CAPSULE.DR GT SCH (05:29)
[2018-06-03] MEDS: POLYVINYL ALCOHOL 15 ML BOTTLE EACHEYE SCH ×2 (08:36→21:39)
[2018-06-03] MEDS: ACIDOPHILUS/BULGARICUS 1 EACH TAB.CHEW GT SCH ×2 (08:36→17:26)
[2018-06-03] MEDS: VIT B CMPLX 3/FA/VIT C/BIOTIN 1 TAB TABLET GT SCH (08:36)
[2018-06-03] MEDS: HEPARIN SODIUM, PORCINE 5000 UNITS/1 ML VIAL SQ SCH ×2 (08:36→21:41)
[2018-06-03] MEDS: METOCLOPRAMIDE HCL 10 MG/10 ML UDC GT SCH ×2 (08:36→21:39)
[2018-06-03] MEDS: SEVELAMER CARBONATE 0.8 GM POWD.PACK GT SCH ×3 (08:36→17:26)
[2018-06-03] MEDS: ASCORBIC ACID 500 MG TABLET GT SCH (08:36)
[2018-06-03] MEDS: INSULIN GLARGINE, 100 UNIT/ML CARTRIDGE SQ SCH ×2 (08:37→21:42)
[2018-06-03] MEDS: ACETAMINOPHEN 650 MG/20 ML UDC- SA PATIENTS-PAIN ONLY GT SCH ×2 (15:00→21:40)
[2018-06-03] MEDS: HYDROGEL DRESSING 90 GM TUBE TP SCH ×3 (15:30→21:41)
[2018-06-03] MEDS: NYSTATIN TOP POWDER 15 GM BOTTLE TP SCH ×4 (15:30→21:41)
[2018-06-03] MEDS: HYDROGEN PEROXIDE 480 ML BOTTLE TP SCH ×2 (15:30→21:41)
[2018-06-03] MEDS: NYSTATIN/TRIAMCIN OINT 15 GM TUBE TP SCH ×2 (15:30→21:41)
[2018-06-03] MEDS: hydrALAZINE HCL 25 MG TABLET GT SCH (17:26)
[2018-06-03] MEDS: METOPROLOL TARTRATE 50 MG TABLET GT SCH (21:41)
[2018-06-04] VITALS: BP 113/54
[2018-06-04] MEDS: BLOOD SUGAR DIAGNOSTIC 1 EACH STRIP IN SCH ×4 (00:07→17:42)
[2018-06-04] MEDS: INSULIN REGULAR, HUMAN 100 UNIT/ML 3 ML VIAL SQ PRN ×4 (00:08→17:43)
[2018-06-04] MEDS: CLONIDINE HCL 0.2 MG TABLET GT PRN ×2 (00:08→05:46)
[2018-06-04] MEDS: IPRATROPIUM NEB FS 0.5 MG/2.5 ML AMPUL.NEB NEB SCH ×4 (01:23→19:37)
[2018-06-04] MEDS: ALBUTEROL FS 2.5 MG/3 ML VIAL.NEB NEB SCH ×4 (01:23→19:37)
[2018-06-04] MEDS: NEPRO 1,000 ML BOTTLE GT PRN (02:00)
[2018-06-04] MEDS: PROSOURCE / PROSTAT (PYXIS) 30 ML UDC GT SCH ×5 (05:44→21:25)
[2018-06-04] MEDS: MAG HYDROX/AL HYDROX/SIMETH 30 ML UDC TP SCH ×4 (05:44→23:25)
[2018-06-04] MEDS: ESOMEPRAZOLE MAG TRIHYDRATE 20 MG CAPSULE.DR GT SCH (05:44)
[2018-06-04 06:00] VITALS: BP 130/57
--- NOTE | 2018-06-04 07:34 | NUR ---
Received female faith pt on a mechanical vent. Pt faith is secure. Vent is plugged into a red outlet, alarms are set and audible, and BMV is at bedside. Addendum: 06/04/18 at 0735 by ANNMARIE CARVER RT Amended: Links added.
[2018-06-04 08:01] VITALS: BP_SYST 119; BP_SYST 164; BP_DIAS 57; BP_DIAS 82
[2018-06-04] MEDS: POLYVINYL ALCOHOL 15 ML BOTTLE EACHEYE SCH ×2 (08:46→21:25)
[2018-06-04] MEDS: SEVELAMER CARBONATE 0.8 GM POWD.PACK GT SCH ×3 (08:46→17:42)
[2018-06-04] MEDS: METOCLOPRAMIDE HCL 10 MG/10 ML UDC GT SCH ×2 (08:47→21:25)
[2018-06-04] MEDS: ACIDOPHILUS/BULGARICUS 1 EACH TAB.CHEW GT SCH ×2 (08:47→17:42)
[2018-06-04] MEDS: VIT B CMPLX 3/FA/VIT C/BIOTIN 1 TAB TABLET GT SCH (08:47)
[2018-06-04] MEDS: ASCORBIC ACID 500 MG TABLET GT SCH (08:48)
[2018-06-04] MEDS: hydrALAZINE HCL 25 MG TABLET GT SCH ×2 (08:48→17:42)
[2018-06-04] MEDS: ACETAMINOPHEN 650 MG/20 ML UDC- SA PATIENTS-PAIN ONLY GT SCH ×2 (08:48→21:25)
[2018-06-04] MEDS: METOPROLOL TARTRATE 50 MG TABLET GT SCH ×2 (08:49→21:26)
[2018-06-04] MEDS: HEPARIN SODIUM, PORCINE 5000 UNITS/1 ML VIAL SQ SCH ×2 (08:51→21:26)
[2018-06-04] MEDS: INSULIN GLARGINE, 100 UNIT/ML CARTRIDGE SQ SCH ×2 (08:51→21:28)
[2018-06-04] MEDS: HYDROGEN PEROXIDE 480 ML BOTTLE TP SCH ×2 (09:48→21:55)
[2018-06-04] MEDS: HYDROGEL DRESSING 90 GM TUBE TP SCH ×2 (09:48)
[2018-06-04] MEDS: NYSTATIN TOP POWDER 15 GM BOTTLE TP SCH ×4 (09:48→21:55)
[2018-06-04] MEDS: NYSTATIN/TRIAMCIN OINT 15 GM TUBE TP SCH ×2 (09:48→21:55)
[2018-06-04 12:00] VITALS: BP 130/65
[2018-06-04 18:33] VITALS: BP 133/93
[2018-06-04 19:54] VITALS: BP 153/73
[2018-06-05] MEDS: BLOOD SUGAR DIAGNOSTIC 1 EACH STRIP IN SCH ×4 (00:02→17:32)
[2018-06-05] MEDS: INSULIN REGULAR, HUMAN 100 UNIT/ML 3 ML VIAL SQ PRN ×3 (00:04→17:32)
[2018-06-05 00:05] VITALS: BP 146/70
[2018-06-05] MEDS: ALBUTEROL FS 2.5 MG/3 ML VIAL.NEB NEB SCH ×4 (01:22→19:30)
[2018-06-05] MEDS: IPRATROPIUM NEB FS 0.5 MG/2.5 ML AMPUL.NEB NEB SCH ×4 (01:22→19:30)
[2018-06-05] MEDS: ESOMEPRAZOLE MAG TRIHYDRATE 20 MG CAPSULE.DR GT SCH (05:23)
[2018-06-05] MEDS: MAG HYDROX/AL HYDROX/SIMETH 30 ML UDC TP SCH ×4 (05:23→23:20)
[2018-06-05] MEDS: PROSOURCE / PROSTAT (PYXIS) 30 ML UDC GT SCH ×5 (05:23→21:01)
[2018-06-05 06:10] VITALS: BP 148/66
[2018-06-05 07:29] VITALS: BP 150/50
[2018-06-05] MEDS: SEVELAMER CARBONATE 0.8 GM POWD.PACK GT SCH ×3 (08:43→18:49)
[2018-06-05] MEDS: VIT B CMPLX 3/FA/VIT C/BIOTIN 1 TAB TABLET GT SCH (08:43)
[2018-06-05] MEDS: ACIDOPHILUS/BULGARICUS 1 EACH TAB.CHEW GT SCH ×2 (08:43→17:32)
[2018-06-05] MEDS: POLYVINYL ALCOHOL 15 ML BOTTLE EACHEYE SCH ×2 (08:43→21:01)
[2018-06-05] MEDS: METOCLOPRAMIDE HCL 10 MG/10 ML UDC GT SCH ×2 (08:43→21:01)
[2018-06-05] MEDS: ACETAMINOPHEN 650 MG/20 ML UDC- SA PATIENTS-PAIN ONLY GT SCH ×2 (08:44→21:02)
[2018-06-05] MEDS: ASCORBIC ACID 500 MG TABLET GT SCH (08:44)
[2018-06-05] MEDS: HEPARIN SODIUM, PORCINE 5000 UNITS/1 ML VIAL SQ SCH ×2 (08:53→21:02)
[2018-06-05] MEDS: INSULIN GLARGINE, 100 UNIT/ML CARTRIDGE SQ SCH ×2 (08:54→22:09)
[2018-06-05] MEDS: HYDROGEL DRESSING 90 GM TUBE TP SCH (09:00)
[2018-06-05] MEDS: HYDROGEN PEROXIDE 480 ML BOTTLE TP SCH ×2 (09:00→21:43)
[2018-06-05] MEDS: NYSTATIN/TRIAMCIN OINT 15 GM TUBE TP SCH (09:00)
[2018-06-05] MEDS: NYSTATIN TOP POWDER 15 GM BOTTLE TP SCH ×4 (09:00→21:43)
--- NOTE | 2018-06-05 10:51 | NUR ---
PT RCVD TRACH'D ON MECHANICAL VENT WITH CHARTED SETTINGS. HHN TX GIVEN WITH NO ADVERSE REACTION NOTED. SX DONE. PT TRACH PATENT AND SECURE. ALARMS ARE ON AND AUDIBLE. VENT PLUGGED INTO RED OUTLET. AMBU BAG AT BEDSIDE. WILL CONTINUE TO MONITOR. Addendum: 06/05/18 at 1052 by BETTY VILLEGAS RT Amended: Links added.
[2018-06-05 15:40] VITALS: BP 144/77
[2018-06-05] MEDS: NEPRO 1,000 ML BOTTLE GT PRN (17:32)
[2018-06-05] MEDS: hydrALAZINE HCL 25 MG TABLET GT SCH (17:32)
[2018-06-05 18:34] VITALS: BP 151/64
[2018-06-05 19:45] VITALS: BP 152/66
[2018-06-05] MEDS: METOPROLOL TARTRATE 50 MG TABLET GT SCH (21:03)
--- NOTE | 2018-06-05 23:00 | NUR ---
RT NOTE PATIENT WAS RECEIVED ON CONTINUOUS VENT SUPPORT ON NOTED VENT SETTINGS. HHN INLINE TREATMENT WAS GIVEN, NO ADVERSE REACTION NOTED ,PRN SUCTION WAS DONE. TRACH TUBE PATENT AND SECURED. ALARMS ON AND AUDIBLE. WILL CONTINUE TO MONITOR PATIENT Addendum: 06/05/18 at 2301 by FERMÍN DAMON RT Amended: Links added.
[2018-06-06] VITALS (7 sets, daily range): BP systolic 111–151; BP diastolic 55–74
[2018-06-06] MEDS: BLOOD SUGAR DIAGNOSTIC 1 EACH STRIP IN SCH ×5 (00:59→23:09)
[2018-06-06] MEDS: INSULIN REGULAR, HUMAN 100 UNIT/ML 3 ML VIAL SQ PRN ×5 (01:00→23:10)
[2018-06-06] MEDS: ALBUTEROL FS 2.5 MG/3 ML VIAL.NEB NEB SCH ×4 (01:34→19:48)
[2018-06-06] MEDS: IPRATROPIUM NEB FS 0.5 MG/2.5 ML AMPUL.NEB NEB SCH ×4 (01:34→19:48)
[2018-06-06] MEDS: MAG HYDROX/AL HYDROX/SIMETH 30 ML UDC TP SCH ×4 (05:30→23:09)
[2018-06-06] MEDS: PROSOURCE / PROSTAT (PYXIS) 30 ML UDC GT SCH ×5 (05:30→21:02)
[2018-06-06] MEDS: ESOMEPRAZOLE MAG TRIHYDRATE 20 MG CAPSULE.DR GT SCH (05:30)
[2018-06-06] MEDS: SEVELAMER CARBONATE 0.8 GM POWD.PACK GT SCH ×3 (08:33→17:31)
[2018-06-06] MEDS: POLYVINYL ALCOHOL 15 ML BOTTLE EACHEYE SCH ×2 (08:33→21:02)
[2018-06-06] MEDS: VIT B CMPLX 3/FA/VIT C/BIOTIN 1 TAB TABLET GT SCH (08:34)
[2018-06-06] MEDS: ACIDOPHILUS/BULGARICUS 1 EACH TAB.CHEW GT SCH ×2 (08:34→17:31)
[2018-06-06] MEDS: hydrALAZINE HCL 25 MG TABLET GT SCH ×2 (08:34→17:00)
[2018-06-06] MEDS: METOCLOPRAMIDE HCL 10 MG/10 ML UDC GT SCH ×2 (08:34→21:02)
[2018-06-06] MEDS: METOPROLOL TARTRATE 50 MG TABLET GT SCH ×2 (08:34→21:05)
[2018-06-06] MEDS: ASCORBIC ACID 500 MG TABLET GT SCH (08:35)
[2018-06-06] MEDS: ACETAMINOPHEN 650 MG/20 ML UDC- SA PATIENTS-PAIN ONLY GT SCH ×2 (08:35→21:03)
[2018-06-06] MEDS: HEPARIN SODIUM, PORCINE 5000 UNITS/1 ML VIAL SQ SCH ×2 (08:36→21:04)
[2018-06-06] MEDS: INSULIN GLARGINE, 100 UNIT/ML CARTRIDGE SQ SCH ×2 (08:37→22:00)
[2018-06-06] MEDS: NYSTATIN TOP POWDER 15 GM BOTTLE TP SCH ×4 (09:35→21:04)
[2018-06-06] MEDS: HYDROGEN PEROXIDE 480 ML BOTTLE TP SCH ×2 (09:35→21:04)
[2018-06-06] MEDS: NYSTATIN/TRIAMCIN 15 GM CREAM 15 GM TUBE TP SCH ×2 (09:35→21:04)
[2018-06-06] MEDS: HYDROGEL DRESSING 90 GM TUBE TP SCH ×3 (09:35→21:04)
--- NOTE | 2018-06-06 11:41 | NUR ---
RT RECD PT TRACHED INTACT & SECURED ON MECH VENT CESARIO ORDERED SETTINGS ALARMS ON AND AUDIBLE BAG AND MASK AT HOB SX THICK YELLOW SECRETIONS NO RESP DISTRESS THROUGHOUT SHIFT WILL CONT TO MONITOR
--- NOTE | 2018-06-06 19:48 | NUR ---
RT NOTE: RECEIVED TRACH PT ON [facility] VENT ON NOTED SETTINGS PER MD ORDERS. TRACH IS PATENT AND SECURED. 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 Q6 BREATHING TX GIVEN WITH NO ADVERSE REACTION NOTED. SX DONE PRN. VENT PLUGGED INTO RED OUTLET. ALARMS ON AND AUDIBLE. NACHO BAG @ BEDSIDE. NO RESP DISTRESS AT THIS TIME. WILL CONT TO MONITOR PT. Addendum: 06/07/18 at 0239 by FREDDY PALMA RT Amended: Links added.
[2018-06-07 00:40] VITALS: BP 109/46
[2018-06-07] MEDS: ALBUTEROL FS 2.5 MG/3 ML VIAL.NEB NEB SCH ×4 (01:35→19:37)
[2018-06-07] MEDS: IPRATROPIUM NEB FS 0.5 MG/2.5 ML AMPUL.NEB NEB SCH ×4 (01:35→19:37)
[2018-06-07] MEDS: ESOMEPRAZOLE MAG TRIHYDRATE 20 MG CAPSULE.DR GT SCH (05:43)
[2018-06-07] MEDS: MAG HYDROX/AL HYDROX/SIMETH 30 ML UDC TP SCH ×4 (05:43→23:33)
[2018-06-07] MEDS: PROSOURCE / PROSTAT (PYXIS) 30 ML UDC GT SCH ×5 (05:43→21:03)
[2018-06-07] MEDS: BLOOD SUGAR DIAGNOSTIC 1 EACH STRIP IN SCH ×3 (05:43→17:16)
[2018-06-07] MEDS: INSULIN REGULAR, HUMAN 100 UNIT/ML 3 ML VIAL SQ PRN ×3 (05:50→17:17)
[2018-06-07] MEDS: NEPRO 1,000 ML BOTTLE GT PRN (05:54)
[2018-06-07 06:56] VITALS: BP 132/65
[2018-06-07 07:43] VITALS: BP 126/54
[2018-06-07] MEDS: VIT B CMPLX 3/FA/VIT C/BIOTIN 1 TAB TABLET GT SCH (08:26)
[2018-06-07] MEDS: POLYVINYL ALCOHOL 15 ML BOTTLE EACHEYE SCH ×2 (08:26→21:03)
[2018-06-07] MEDS: SEVELAMER CARBONATE 0.8 GM POWD.PACK GT SCH ×3 (08:26→17:16)
[2018-06-07] MEDS: METOCLOPRAMIDE HCL 10 MG/10 ML UDC GT SCH ×2 (08:26→21:03)
[2018-06-07] MEDS: ASCORBIC ACID 500 MG TABLET GT SCH (08:26)
[2018-06-07] MEDS: ACETAMINOPHEN 650 MG/20 ML UDC- SA PATIENTS-PAIN ONLY GT SCH ×2 (08:26→21:03)
[2018-06-07] MEDS: ACIDOPHILUS/BULGARICUS 1 EACH TAB.CHEW GT SCH ×2 (08:26→17:16)
[2018-06-07] MEDS: HEPARIN SODIUM, PORCINE 5000 UNITS/1 ML VIAL SQ SCH ×2 (08:29→21:04)
[2018-06-07] MEDS: INSULIN GLARGINE, 100 UNIT/ML CARTRIDGE SQ SCH ×2 (08:30→22:06)
[2018-06-07] MEDS: hydrALAZINE HCL 25 MG TABLET GT SCH ×2 (08:35→17:16)
[2018-06-07] MEDS: METOPROLOL TARTRATE 50 MG TABLET GT SCH ×2 (08:36→21:04)
--- NOTE | 2018-06-07 09:18 | NUR ---
RT NOTE RECEIVED PT MECHANICALLY VENTILATED VIA CUFF TRACHEOSTOMY TUBE. CUFF INFLATED. TRACH TUBE MIDLINE AND SECURE. VENTILATOR SETTINGS PRESCRIBED. ALARMS SET PER PROTOCOL AND AUDIBLE. VENT PLUGGED IN TO RED OUTLET. AMBU BAG AT BED SIDE. NO DISTRESS NOTED AT MOMENT. Addendum: 06/07/18 at 0918 by NATALIE DAMON RT Amended: Links added.
[2018-06-07] MEDS: HYDROGEN PEROXIDE 480 ML BOTTLE TP SCH ×2 (09:26→21:37)
[2018-06-07] MEDS: NYSTATIN/TRIAMCIN 15 GM CREAM 15 GM TUBE TP SCH ×2 (09:26→21:37)
[2018-06-07] MEDS: HYDROGEL DRESSING 90 GM TUBE TP SCH ×3 (09:26→21:37)
[2018-06-07] MEDS: NYSTATIN TOP POWDER 15 GM BOTTLE TP SCH ×4 (09:26→21:37)
[2018-06-07 12:13] VITALS: BP 115/56
--- NOTE | 2018-06-07 16:20 | NUR ---
SW made several attempts to call resident's today however phone had a busy ring.
[2018-06-07 18:34] VITALS: BP 134/55
[2018-06-07 20:35] VITALS: BP 123/56
--- NOTE | 2018-06-07 21:04 | NUR ---
PT RCVD MAILK'D ON MECHANICAL VENT WITH CHARTED SETTINGS. HHN TX GIVEN WITH NO ADVERSE REACTION NOTED. SX DONE. PT TRACH PATENT AND SECURE. ALARMS ARE ON AND AUDIBLE. VENT PLUGGED INTO RED OUTLET. AMBU BAG AT BEDSIDE. WILL CONTINUE TO MONITOR. Addendum: 06/07/18 at 2104 by ARGENTINA AVILA RT Amended: Links added.
[2018-06-08] MEDS: BLOOD SUGAR DIAGNOSTIC 1 EACH STRIP IN SCH ×5 (00:10→23:48)
[2018-06-08] MEDS: INSULIN REGULAR, HUMAN 100 UNIT/ML 3 ML VIAL SQ PRN ×2 (00:11→05:39)
[2018-06-08 00:25] VITALS: BP 150/71
[2018-06-08] MEDS: IPRATROPIUM NEB FS 0.5 MG/2.5 ML AMPUL.NEB NEB SCH ×4 (00:37→19:17)
[2018-06-08] MEDS: ALBUTEROL FS 2.5 MG/3 ML VIAL.NEB NEB SCH ×4 (00:37→19:17)
[2018-06-08] MEDS: MAG HYDROX/AL HYDROX/SIMETH 30 ML UDC TP SCH ×4 (05:38→23:19)
[2018-06-08] MEDS: ESOMEPRAZOLE MAG TRIHYDRATE 20 MG CAPSULE.DR GT SCH (05:38)
[2018-06-08] MEDS: PROSOURCE / PROSTAT (PYXIS) 30 ML UDC GT SCH ×5 (05:38→21:36)
[2018-06-08] MEDS: NEPRO 1,000 ML BOTTLE GT PRN (05:53)
[2018-06-08 06:18] VITALS: BP 155/72
[2018-06-08 07:33] VITALS: BP 157/75
--- NOTE | 2018-06-08 08:03 | NUR ---
Female faith pt received on a mechanical vent. Pt faith is secure. Vent is plugged into a red outlet, vent alarms are set and audible, and BMV is at bedside. Addendum: 06/08/18 at 0804 by ANNMARIE CARVER RT Amended: Links added.
[2018-06-08] MEDS: SEVELAMER CARBONATE 0.8 GM POWD.PACK GT SCH ×3 (08:49→17:24)
[2018-06-08] MEDS: METOCLOPRAMIDE HCL 10 MG/10 ML UDC GT SCH ×2 (09:12→21:36)
[2018-06-08] MEDS: VIT B CMPLX 3/FA/VIT C/BIOTIN 1 TAB TABLET GT SCH (09:12)
[2018-06-08] MEDS: ACIDOPHILUS/BULGARICUS 1 EACH TAB.CHEW GT SCH ×2 (09:12→17:24)
[2018-06-08] MEDS: POLYVINYL ALCOHOL 15 ML BOTTLE EACHEYE SCH ×2 (09:12→21:36)
[2018-06-08] MEDS: ASCORBIC ACID 500 MG TABLET GT SCH (09:13)
[2018-06-08] MEDS: NYSTATIN/TRIAMCIN 15 GM CREAM 15 GM TUBE TP SCH ×2 (09:13→21:37)
[2018-06-08] MEDS: HYDROGEN PEROXIDE 480 ML BOTTLE TP SCH ×2 (09:13→21:37)
[2018-06-08] MEDS: NYSTATIN TOP POWDER 15 GM BOTTLE TP SCH ×4 (09:13→21:38)
[2018-06-08] MEDS: HYDROGEL DRESSING 90 GM TUBE TP SCH ×3 (09:13→21:37)
[2018-06-08] MEDS: ACETAMINOPHEN 650 MG/20 ML UDC- SA PATIENTS-PAIN ONLY GT SCH ×2 (09:13→21:36)
[2018-06-08] MEDS: INSULIN GLARGINE, 100 UNIT/ML CARTRIDGE SQ SCH ×2 (09:19→21:40)
[2018-06-08] MEDS: HEPARIN SODIUM, PORCINE 5000 UNITS/1 ML VIAL SQ SCH ×2 (09:19→21:37)
--- NOTE | 2018-06-08 10:36 | NUR ---
RN NOTES PT PICKED UP BY TRANSPORT FOR DIALYSIS @3068
[2018-06-08] MEDS: hydrALAZINE HCL 25 MG TABLET GT SCH (17:24)
[2018-06-08 18:06] VITALS: BP 157/69
[2018-06-08 20:18] VITALS: BP 165/72
[2018-06-08] MEDS: METOPROLOL TARTRATE 50 MG TABLET GT SCH (21:38)
[2018-06-09] VITALS: BP 121/58
[2018-06-09] MEDS: ALBUTEROL FS 2.5 MG/3 ML VIAL.NEB NEB SCH ×4 (00:59→19:55)
[2018-06-09] MEDS: IPRATROPIUM NEB FS 0.5 MG/2.5 ML AMPUL.NEB NEB SCH ×4 (00:59→19:55)
[2018-06-09] MEDS: MAG HYDROX/AL HYDROX/SIMETH 30 ML UDC TP SCH ×4 (05:06→22:36)
[2018-06-09] MEDS: ESOMEPRAZOLE MAG TRIHYDRATE 20 MG CAPSULE.DR GT SCH (05:06)
[2018-06-09] MEDS: PROSOURCE / PROSTAT (PYXIS) 30 ML UDC GT SCH ×5 (05:06→21:14)
[2018-06-09] MEDS: BLOOD SUGAR DIAGNOSTIC 1 EACH STRIP IN SCH ×3 (05:37→18:11)
[2018-06-09] MEDS: INSULIN REGULAR, HUMAN 100 UNIT/ML 3 ML VIAL SQ PRN ×3 (05:38→18:12)
[2018-06-09 06:00] VITALS: BP 118/63
[2018-06-09] MEDS: SEVELAMER CARBONATE 0.8 GM POWD.PACK GT SCH ×3 (08:00→18:11)
[2018-06-09] MEDS: POLYVINYL ALCOHOL 15 ML BOTTLE EACHEYE SCH ×2 (09:32→21:14)
[2018-06-09] MEDS: hydrALAZINE HCL 25 MG TABLET GT SCH ×2 (09:32→17:00)
[2018-06-09] MEDS: METOCLOPRAMIDE HCL 10 MG/10 ML UDC GT SCH ×2 (09:33→21:14)
[2018-06-09] MEDS: METOPROLOL TARTRATE 50 MG TABLET GT SCH ×2 (09:33→21:15)
[2018-06-09] MEDS: VIT B CMPLX 3/FA/VIT C/BIOTIN 1 TAB TABLET GT SCH (09:33)
[2018-06-09] MEDS: ACIDOPHILUS/BULGARICUS 1 EACH TAB.CHEW GT SCH ×2 (09:33→17:00)
[2018-06-09] MEDS: ACETAMINOPHEN 650 MG/20 ML UDC- SA PATIENTS-PAIN ONLY GT SCH ×2 (09:33→21:14)
[2018-06-09] MEDS: HEPARIN SODIUM, PORCINE 5000 UNITS/1 ML VIAL SQ SCH ×2 (09:34→21:15)
[2018-06-09] MEDS: ASCORBIC ACID 500 MG TABLET GT SCH (09:34)
[2018-06-09] MEDS: INSULIN GLARGINE, 100 UNIT/ML CARTRIDGE SQ SCH ×2 (09:34→22:36)
[2018-06-09] MEDS: NYSTATIN TOP POWDER 15 GM BOTTLE TP SCH ×4 (10:33→21:45)
[2018-06-09] MEDS: HYDROGEN PEROXIDE 480 ML BOTTLE TP SCH ×2 (10:33→21:45)
[2018-06-09] MEDS: HYDROGEL DRESSING 90 GM TUBE TP SCH ×3 (10:33→21:45)
[2018-06-09] MEDS: NYSTATIN/TRIAMCIN 15 GM CREAM 15 GM TUBE TP SCH ×2 (10:33→21:45)
--- NOTE | 2018-06-09 10:50 | NUR ---
RT Monthly trach change done per protocol with new [place] 6 trach. Trach change done with no complications. Equal bilateral breathe sounds and chest rise noted. Airway is clear and patent. Pt placed back on vent with noted settings. No respiratory distress noted at this time, will continue to monitor. Addendum: 06/09/18 at 1145 by EDU CIFUENTES RT Amended: Links added.
[2018-06-09 12:00] VITALS: BP 156/76
[2018-06-09 18:00] VITALS: BP 125/56
[2018-06-09 19:49] VITALS: BP 159/56
[2018-06-10 00:11] VITALS: BP 142/60
[2018-06-10] MEDS: BLOOD SUGAR DIAGNOSTIC 1 EACH STRIP IN SCH ×4 (00:56→18:23)
[2018-06-10] MEDS: INSULIN REGULAR, HUMAN 100 UNIT/ML 3 ML VIAL SQ PRN ×2 (00:59→06:01)
[2018-06-10] MEDS: IPRATROPIUM NEB FS 0.5 MG/2.5 ML AMPUL.NEB NEB SCH ×4 (02:06→19:49)
[2018-06-10] MEDS: ALBUTEROL FS 2.5 MG/3 ML VIAL.NEB NEB SCH ×4 (02:06→19:49)
[2018-06-10] MEDS: PROSOURCE / PROSTAT (PYXIS) 30 ML UDC GT SCH ×5 (05:39→20:55)
[2018-06-10] MEDS: ESOMEPRAZOLE MAG TRIHYDRATE 20 MG CAPSULE.DR GT SCH (05:39)
[2018-06-10] MEDS: MAG HYDROX/AL HYDROX/SIMETH 30 ML UDC TP SCH ×4 (05:39→22:20)
[2018-06-10 06:17] VITALS: BP 119/55
[2018-06-10 08:00] VITALS: BP 167/91
[2018-06-10] MEDS: SEVELAMER CARBONATE 0.8 GM POWD.PACK GT SCH ×3 (08:00→18:23)
[2018-06-10] MEDS: VIT B CMPLX 3/FA/VIT C/BIOTIN 1 TAB TABLET GT SCH (09:10)
[2018-06-10] MEDS: POLYVINYL ALCOHOL 15 ML BOTTLE EACHEYE SCH ×2 (09:10→20:55)
[2018-06-10] MEDS: ACIDOPHILUS/BULGARICUS 1 EACH TAB.CHEW GT SCH ×2 (09:10→17:00)
[2018-06-10] MEDS: ACETAMINOPHEN 650 MG/20 ML UDC- SA PATIENTS-PAIN ONLY GT SCH ×2 (09:10→20:56)
[2018-06-10] MEDS: METOCLOPRAMIDE HCL 10 MG/10 ML UDC GT SCH ×2 (09:10→20:55)
[2018-06-10] MEDS: ASCORBIC ACID 500 MG TABLET GT SCH (09:10)
[2018-06-10] MEDS: HEPARIN SODIUM, PORCINE 5000 UNITS/1 ML VIAL SQ SCH ×2 (09:12→20:56)
[2018-06-10] MEDS: INSULIN GLARGINE, 100 UNIT/ML CARTRIDGE SQ SCH ×2 (09:13→22:19)
[2018-06-10] MEDS: NYSTATIN/TRIAMCIN 15 GM CREAM 15 GM TUBE TP SCH ×2 (09:40→21:42)
[2018-06-10] MEDS: HYDROGEN PEROXIDE 480 ML BOTTLE TP SCH ×2 (09:40→21:42)
[2018-06-10] MEDS: NYSTATIN TOP POWDER 15 GM BOTTLE TP SCH ×4 (09:40→21:42)
[2018-06-10] MEDS: HYDROGEL DRESSING 90 GM TUBE TP SCH ×3 (09:40→21:42)
[2018-06-10 15:30] VITALS: BP 132/69
[2018-06-10] MEDS: hydrALAZINE HCL 25 MG TABLET GT SCH (17:00)
[2018-06-10 18:00] VITALS: BP 142/64
[2018-06-10] MEDS: NEPRO 1,000 ML BOTTLE GT PRN (18:24)
[2018-06-10 19:57] VITALS: BP 112/58
[2018-06-10] MEDS: METOPROLOL TARTRATE 50 MG TABLET GT SCH (21:42)
[2018-06-11 00:09] VITALS: BP 153/73
[2018-06-11] MEDS: BLOOD SUGAR DIAGNOSTIC 1 EACH STRIP IN SCH ×4 (00:14→18:15)
[2018-06-11] MEDS: INSULIN REGULAR, HUMAN 100 UNIT/ML 3 ML VIAL SQ PRN ×4 (00:15→18:14)
[2018-06-11] MEDS: IPRATROPIUM NEB FS 0.5 MG/2.5 ML AMPUL.NEB NEB SCH ×4 (01:24→19:54)
[2018-06-11] MEDS: ALBUTEROL FS 2.5 MG/3 ML VIAL.NEB NEB SCH ×4 (01:24→19:54)
[2018-06-11] MEDS: CLONIDINE HCL 0.2 MG TABLET GT PRN (05:36)
[2018-06-11] MEDS: MAG HYDROX/AL HYDROX/SIMETH 30 ML UDC TP SCH ×4 (05:37→22:04)
[2018-06-11] MEDS: ESOMEPRAZOLE MAG TRIHYDRATE 20 MG CAPSULE.DR GT SCH (05:37)
[2018-06-11] MEDS: PROSOURCE / PROSTAT (PYXIS) 30 ML UDC GT SCH ×5 (05:37→21:02)
[2018-06-11 06:14] VITALS: BP 168/73
[2018-06-11 07:47] VITALS: BP 103/65
[2018-06-11] MEDS: SEVELAMER CARBONATE 0.8 GM POWD.PACK GT SCH ×3 (08:00→18:15)
--- NOTE | 2018-06-11 08:00 | NUR ---
PT REC'D TRACHED ON THE [facility] VENT ON AC MODE. NO RESP DISTRESS OR SOB NOTED. TRACH PATENT AND SECURED. SX'D FOR THICK MOD AMT OF PALE YELLOW SECRETIONS. ALARMS ARE SET AND AUDIBLE. VENT PLUGGED INTO RED OUTLET. AMBU BAG BEDSIDE. WILL CONTINUE TO MONITOR. Addendum: 06/11/18 at 1558 by LOUISA CRUZ RT Amended: Links added.
[2018-06-11] MEDS: METOCLOPRAMIDE HCL 10 MG/10 ML UDC GT SCH ×2 (09:00→21:02)
[2018-06-11] MEDS: ACIDOPHILUS/BULGARICUS 1 EACH TAB.CHEW GT SCH ×2 (09:00→17:00)
[2018-06-11] MEDS: METOPROLOL TARTRATE 50 MG TABLET GT SCH ×2 (09:00→21:04)
[2018-06-11] MEDS: ASCORBIC ACID 500 MG TABLET GT SCH (09:00)
[2018-06-11] MEDS: VIT B CMPLX 3/FA/VIT C/BIOTIN 1 TAB TABLET GT SCH (09:00)
[2018-06-11] MEDS: HEPARIN SODIUM, PORCINE 5000 UNITS/1 ML VIAL SQ SCH ×2 (09:59→21:03)
[2018-06-11] MEDS: POLYVINYL ALCOHOL 15 ML BOTTLE EACHEYE SCH ×2 (09:59→21:02)
[2018-06-11] MEDS: INSULIN GLARGINE, 100 UNIT/ML CARTRIDGE SQ SCH ×2 (09:59→21:57)
[2018-06-11] MEDS: hydrALAZINE HCL 25 MG TABLET GT SCH ×2 (10:00→17:00)
[2018-06-11] MEDS: ACETAMINOPHEN 650 MG/20 ML UDC- SA PATIENTS-PAIN ONLY GT SCH ×2 (10:00→21:03)
[2018-06-11] MEDS: HYDROGEL DRESSING 90 GM TUBE TP SCH ×3 (10:30→21:54)
[2018-06-11] MEDS: NYSTATIN/TRIAMCIN 15 GM CREAM 15 GM TUBE TP SCH ×2 (10:30→21:54)
[2018-06-11] MEDS: NYSTATIN TOP POWDER 15 GM BOTTLE TP SCH ×4 (10:30→21:54)
[2018-06-11] MEDS: HYDROGEN PEROXIDE 480 ML BOTTLE TP SCH ×2 (10:30→21:54)
[2018-06-11 12:00] VITALS: BP 152/59
--- NOTE | 2018-06-11 14:03 | NUR ---
INTERDISCIPLINARY TEAM CONFERENCE (IDT) was held today. Resident's boyfriend John was unable to attend today's IDT meeting. Dr. Morejon and the interdisciplinary team reviewed the current plan of care in detail. Orders as well as treatment and medications were reviewed. Resident is stable and no new orders were given during IDT meeting.
[2018-06-11 18:00] VITALS: BP 144/66
[2018-06-11 19:59] VITALS: BP 125/60
[2018-06-11] MEDS: NEPRO 1,000 ML BOTTLE GT PRN (21:57)
[2018-06-12 00:12] VITALS: BP 148/67
[2018-06-12] MEDS: BLOOD SUGAR DIAGNOSTIC 1 EACH STRIP IN SCH ×4 (00:58→18:15)
[2018-06-12] MEDS: INSULIN REGULAR, HUMAN 100 UNIT/ML 3 ML VIAL SQ PRN ×2 (00:59→05:30)
[2018-06-12] MEDS: ALBUTEROL FS 2.5 MG/3 ML VIAL.NEB NEB SCH ×4 (01:44→19:38)
[2018-06-12] MEDS: IPRATROPIUM NEB FS 0.5 MG/2.5 ML AMPUL.NEB NEB SCH ×4 (01:44→19:38)
[2018-06-12] MEDS: MAG HYDROX/AL HYDROX/SIMETH 30 ML UDC TP SCH ×4 (05:28→23:00)
[2018-06-12] MEDS: PROSOURCE / PROSTAT (PYXIS) 30 ML UDC GT SCH ×5 (05:28→21:15)
[2018-06-12] MEDS: ESOMEPRAZOLE MAG TRIHYDRATE 20 MG CAPSULE.DR GT SCH (05:28)
[2018-06-12 06:06] VITALS: BP 141/77
[2018-06-12] MEDS: SEVELAMER CARBONATE 0.8 GM POWD.PACK GT SCH ×3 (08:00→18:15)
[2018-06-12 08:23] VITALS: BP 153/48
[2018-06-12] MEDS: HEPARIN SODIUM, PORCINE 5000 UNITS/1 ML VIAL SQ SCH ×2 (09:31→21:17)
[2018-06-12] MEDS: ASCORBIC ACID 500 MG TABLET GT SCH (09:32)
[2018-06-12] MEDS: ACETAMINOPHEN 650 MG/20 ML UDC- SA PATIENTS-PAIN ONLY GT SCH ×2 (09:32→21:16)
[2018-06-12] MEDS: INSULIN GLARGINE, 100 UNIT/ML CARTRIDGE SQ SCH ×2 (09:32→22:01)
[2018-06-12] MEDS: ACIDOPHILUS/BULGARICUS 1 EACH TAB.CHEW GT SCH ×2 (09:32→17:00)
[2018-06-12] MEDS: METOCLOPRAMIDE HCL 10 MG/10 ML UDC GT SCH ×2 (09:32→21:15)
[2018-06-12] MEDS: POLYVINYL ALCOHOL 15 ML BOTTLE EACHEYE SCH ×2 (09:32→21:15)
[2018-06-12] MEDS: VIT B CMPLX 3/FA/VIT C/BIOTIN 1 TAB TABLET GT SCH (09:32)
[2018-06-12] MEDS: HYDROGEL DRESSING 90 GM TUBE TP SCH ×3 (10:00→21:59)
[2018-06-12] MEDS: NYSTATIN/TRIAMCIN 15 GM CREAM 15 GM TUBE TP SCH ×2 (10:00→21:59)
[2018-06-12] MEDS: NYSTATIN TOP POWDER 15 GM BOTTLE TP SCH ×4 (10:00→22:00)
[2018-06-12] MEDS: HYDROGEN PEROXIDE 480 ML BOTTLE TP SCH ×2 (10:00→21:59)
[2018-06-12 15:30] VITALS: BP 155/77
--- NOTE | 2018-06-12 15:30 | NUR ---
Resident returned back from dialysis in stable condition. AV fistula in the R forearm positive for bruit and trill. Resident no s/s of distress.
[2018-06-12] MEDS: hydrALAZINE HCL 25 MG TABLET GT SCH (17:00)
[2018-06-12 18:00] VITALS: BP 160/65
[2018-06-12 20:19] VITALS: BP 129/49
[2018-06-12] MEDS: METOPROLOL TARTRATE 50 MG TABLET GT SCH (21:20)
--- NOTE | 2018-06-12 21:54 | NUR ---
RT NOTE PATIENT WAS RECEIVED ON CONTINUOUS VENT SUPPORT ON NOTED VENT SETTINGS. PROTOTYPE ASSEMBLER ELECTRONICS DONE. AMBU BAG @ BEDSIDE. Q6 BREATHING TX GIVEN WITH NO ADVERSE REACTION NOTED. SUCTION DONE PRN.TRACH TUBE PATENT AND SECURED. ALARMS ON AND AUDIBLE. NO RESPIRATORY DISTRESS NOTED AT THIS TIME. WILL CONTINUE TO MONITOR PATIENT. Addendum: 06/12/18 at 2155 by FERMÍN DAMON RT Amended: Links added.
[2018-06-13 00:20] VITALS: BP 151/66
[2018-06-13] MEDS: BLOOD SUGAR DIAGNOSTIC 1 EACH STRIP IN SCH ×5 (00:26→23:56)
[2018-06-13] MEDS: INSULIN REGULAR, HUMAN 100 UNIT/ML 3 ML VIAL SQ PRN ×5 (00:29→23:57)
[2018-06-13] MEDS: ALBUTEROL FS 2.5 MG/3 ML VIAL.NEB NEB SCH ×4 (01:44→19:41)
[2018-06-13] MEDS: IPRATROPIUM NEB FS 0.5 MG/2.5 ML AMPUL.NEB NEB SCH ×4 (01:44→19:41)
[2018-06-13] MEDS: ESOMEPRAZOLE MAG TRIHYDRATE 20 MG CAPSULE.DR GT SCH (05:34)
[2018-06-13] MEDS: MAG HYDROX/AL HYDROX/SIMETH 30 ML UDC TP SCH ×4 (05:34→22:00)
[2018-06-13] MEDS: PROSOURCE / PROSTAT (PYXIS) 30 ML UDC GT SCH ×5 (05:34→21:58)
[2018-06-13 06:08] VITALS: BP 157/58
[2018-06-13 07:25] VITALS: BP 153/74
[2018-06-13] MEDS: SEVELAMER CARBONATE 0.8 GM POWD.PACK GT SCH ×3 (08:00→17:40)
[2018-06-13] MEDS: VIT B CMPLX 3/FA/VIT C/BIOTIN 1 TAB TABLET GT SCH (09:00)
[2018-06-13] MEDS: METOPROLOL TARTRATE 50 MG TABLET GT SCH ×2 (09:00→21:59)
[2018-06-13] MEDS: ACIDOPHILUS/BULGARICUS 1 EACH TAB.CHEW GT SCH ×2 (09:00→17:40)
[2018-06-13] MEDS: METOCLOPRAMIDE HCL 10 MG/10 ML UDC GT SCH ×2 (09:00→21:58)
[2018-06-13] MEDS: hydrALAZINE HCL 25 MG TABLET GT SCH ×2 (09:00→17:40)
[2018-06-13] MEDS: ACETAMINOPHEN 650 MG/20 ML UDC- SA PATIENTS-PAIN ONLY GT SCH ×2 (09:00→21:58)
[2018-06-13] MEDS: HYDROGEL DRESSING 90 GM TUBE TP SCH ×3 (09:00→21:58)
[2018-06-13] MEDS: INSULIN GLARGINE, 100 UNIT/ML CARTRIDGE SQ SCH ×2 (09:00→21:59)
[2018-06-13] MEDS: ASCORBIC ACID 500 MG TABLET GT SCH (09:00)
[2018-06-13] MEDS: POLYVINYL ALCOHOL 15 ML BOTTLE EACHEYE SCH ×2 (09:00→21:57)
[2018-06-13] MEDS: NYSTATIN/TRIAMCIN 15 GM CREAM 15 GM TUBE TP SCH ×2 (09:00→21:58)
[2018-06-13] MEDS: NYSTATIN TOP POWDER 15 GM BOTTLE TP SCH ×4 (09:00→21:59)
[2018-06-13] MEDS: HYDROGEN PEROXIDE 480 ML BOTTLE TP SCH ×2 (09:00→21:58)
[2018-06-13] MEDS: HEPARIN SODIUM, PORCINE 5000 UNITS/1 ML VIAL SQ SCH ×2 (09:00→21:58)
[2018-06-13] MEDS: NEPRO 1,000 ML BOTTLE GT PRN (15:14)
[2018-06-13 16:57] VITALS: BP 148/68
[2018-06-13 18:04] VITALS: BP 140/92
[2018-06-13 20:02] VITALS: BP 137/68
[2018-06-14] MEDS: IPRATROPIUM NEB FS 0.5 MG/2.5 ML AMPUL.NEB NEB SCH ×4 (00:45→20:07)
[2018-06-14] MEDS: ALBUTEROL FS 2.5 MG/3 ML VIAL.NEB NEB SCH ×4 (00:45→20:07)
[2018-06-14 03:15] VITALS: BP 134/69
[2018-06-14] MEDS: MAG HYDROX/AL HYDROX/SIMETH 30 ML UDC TP SCH ×4 (05:00→22:54)
[2018-06-14] MEDS: PROSOURCE / PROSTAT (PYXIS) 30 ML UDC GT SCH ×5 (05:00→21:22)
[2018-06-14] MEDS: ESOMEPRAZOLE MAG TRIHYDRATE 20 MG CAPSULE.DR GT SCH (06:00)
[2018-06-14] MEDS: BLOOD SUGAR DIAGNOSTIC 1 EACH STRIP IN SCH ×4 (06:00→23:45)
[2018-06-14 06:09] VITALS: BP 136/74
[2018-06-14 07:53] VITALS: BP 144/72
[2018-06-14] MEDS: SEVELAMER CARBONATE 0.8 GM POWD.PACK GT SCH ×3 (08:00→18:04)
[2018-06-14] MEDS: ASCORBIC ACID 500 MG TABLET GT SCH (09:00)
[2018-06-14] MEDS: METOCLOPRAMIDE HCL 10 MG/10 ML UDC GT SCH ×2 (09:00→21:22)
[2018-06-14] MEDS: INSULIN GLARGINE, 100 UNIT/ML CARTRIDGE SQ SCH ×2 (09:00→21:25)
[2018-06-14] MEDS: HYDROGEL DRESSING 90 GM TUBE TP SCH ×3 (09:00→21:23)
[2018-06-14] MEDS: HEPARIN SODIUM, PORCINE 5000 UNITS/1 ML VIAL SQ SCH ×2 (09:00→21:23)
[2018-06-14] MEDS: NYSTATIN/TRIAMCIN 15 GM CREAM 15 GM TUBE TP SCH ×2 (09:00→21:24)
[2018-06-14] MEDS: METOPROLOL TARTRATE 50 MG TABLET GT SCH ×2 (09:00→21:24)
[2018-06-14] MEDS: ACIDOPHILUS/BULGARICUS 1 EACH TAB.CHEW GT SCH ×2 (09:00→17:00)
[2018-06-14] MEDS: NYSTATIN TOP POWDER 15 GM BOTTLE TP SCH ×4 (09:00→21:24)
[2018-06-14] MEDS: POLYVINYL ALCOHOL 15 ML BOTTLE EACHEYE SCH ×2 (09:00→21:22)
[2018-06-14] MEDS: VIT B CMPLX 3/FA/VIT C/BIOTIN 1 TAB TABLET GT SCH (09:00)
[2018-06-14] MEDS: hydrALAZINE HCL 25 MG TABLET GT SCH ×2 (09:00→17:00)
[2018-06-14] MEDS: HYDROGEN PEROXIDE 480 ML BOTTLE TP SCH ×2 (09:00→21:23)
[2018-06-14] MEDS: ACETAMINOPHEN 650 MG/20 ML UDC- SA PATIENTS-PAIN ONLY GT SCH ×2 (09:00→21:23)
[2018-06-14] MEDS: INSULIN REGULAR, HUMAN 100 UNIT/ML 3 ML VIAL SQ PRN ×3 (12:50→23:46)
--- NOTE | 2018-06-14 15:07 | NUR ---
Resident had a dental cleaning today with Dr. Nuñez
[2018-06-14 15:26] VITALS: BP 141/71
[2018-06-14 18:08] VITALS: BP 132/50
[2018-06-14 20:15] VITALS: BP 135/70
--- NOTE | 2018-06-14 20:54 | NUR ---
PT RCVD TRACH'D ON MECHANICAL VENT WITH CHARTED SETTINGS. HHN TX GIVEN AND NO ADVERSE REACTION NOTED. SX DONE. PT TRACH PATENT AND SECURE. CUFF CHECKED VIA OIL RAG WASHER. ALARMS ARE ON AND AUDIBLE. VENT PLUGGED INTO RED OUTLET. AMBU BAG AT BEDSIDE. WILL CONTINUE TO MONITOR. Addendum: 06/14/18 at 2054 by BETTY VILLEGAS RT Amended: Links added.
[2018-06-15 00:18] VITALS: BP 138/69
[2018-06-15] MEDS: IPRATROPIUM NEB FS 0.5 MG/2.5 ML AMPUL.NEB NEB SCH ×4 (01:11→19:12)
[2018-06-15] MEDS: ALBUTEROL FS 2.5 MG/3 ML VIAL.NEB NEB SCH ×4 (01:11→19:12)
[2018-06-15] MEDS: PROSOURCE / PROSTAT (PYXIS) 30 ML UDC GT SCH ×5 (05:00→21:00)
[2018-06-15] MEDS: MAG HYDROX/AL HYDROX/SIMETH 30 ML UDC TP SCH ×4 (05:00→22:28)
[2018-06-15] MEDS: BLOOD SUGAR DIAGNOSTIC 1 EACH STRIP IN SCH ×3 (06:08→18:39)
[2018-06-15] MEDS: ESOMEPRAZOLE MAG TRIHYDRATE 20 MG CAPSULE.DR GT SCH (06:08)
[2018-06-15] MEDS: INSULIN REGULAR, HUMAN 100 UNIT/ML 3 ML VIAL SQ PRN ×2 (06:10→18:41)
[2018-06-15 06:24] VITALS: BP 144/69
[2018-06-15] MEDS: SEVELAMER CARBONATE 0.8 GM POWD.PACK GT SCH ×3 (08:00→18:39)
[2018-06-15] MEDS: ACETAMINOPHEN 650 MG/20 ML UDC- SA PATIENTS-PAIN ONLY GT SCH ×2 (09:00→21:00)
[2018-06-15] MEDS: NYSTATIN TOP POWDER 15 GM BOTTLE TP SCH ×4 (09:00→21:00)
[2018-06-15] MEDS: HYDROGEN PEROXIDE 480 ML BOTTLE TP SCH ×2 (09:00→21:00)
[2018-06-15] MEDS: HYDROGEL DRESSING 90 GM TUBE TP SCH ×3 (09:00→21:00)
[2018-06-15] MEDS: NYSTATIN/TRIAMCIN 15 GM CREAM 15 GM TUBE TP SCH ×2 (09:00→21:00)
[2018-06-15] MEDS: VIT B CMPLX 3/FA/VIT C/BIOTIN 1 TAB TABLET GT SCH (09:39)
[2018-06-15] MEDS: METOCLOPRAMIDE HCL 10 MG/10 ML UDC GT SCH ×2 (09:39→21:00)
[2018-06-15] MEDS: ASCORBIC ACID 500 MG TABLET GT SCH (09:39)
[2018-06-15] MEDS: POLYVINYL ALCOHOL 15 ML BOTTLE EACHEYE SCH ×2 (09:39→21:00)
[2018-06-15] MEDS: ACIDOPHILUS/BULGARICUS 1 EACH TAB.CHEW GT SCH ×2 (09:39→17:00)
[2018-06-15] MEDS: HEPARIN SODIUM, PORCINE 5000 UNITS/1 ML VIAL SQ SCH ×2 (09:42→21:00)
[2018-06-15] MEDS: INSULIN GLARGINE, 100 UNIT/ML CARTRIDGE SQ SCH ×2 (09:44→22:28)
[2018-06-15] MEDS: hydrALAZINE HCL 25 MG TABLET GT SCH (17:00)
[2018-06-15 18:43] VITALS: BP 146/65
--- NOTE | 2018-06-15 19:13 | NUR ---
PATIENT RECEIVED TRACHED ON MECHANICAL VENTILATION. VENT PLUGGED INTO RED OUTLET. ALARMS ON AND AUDIBLE. CUFF CHECKED VIA ACTIVATED SLUDGE ATTENDANT. TX GIVEN, NO ADVERSE REACTIONS NOTED. SX DONE, SMALL THICK WHITE SECRETIONS NOTED. PATIENT STABLE. Addendum: 06/15/18 at 1915 by ARGENTINA AVILA RT Amended: Links added.
[2018-06-15 19:45] VITALS: BP 134/71
[2018-06-15] MEDS: METOPROLOL TARTRATE 50 MG TABLET GT SCH (22:27)
[2018-06-16] VITALS: BP 126/70
[2018-06-16] MEDS: INSULIN REGULAR, HUMAN 100 UNIT/ML 3 ML VIAL SQ PRN ×5 (01:11→17:55)
[2018-06-16] MEDS: ALBUTEROL FS 2.5 MG/3 ML VIAL.NEB NEB SCH ×4 (02:07→19:48)
[2018-06-16] MEDS: IPRATROPIUM NEB FS 0.5 MG/2.5 ML AMPUL.NEB NEB SCH ×4 (02:07→19:48)
[2018-06-16] MEDS: MAG HYDROX/AL HYDROX/SIMETH 30 ML UDC TP SCH ×4 (05:00→23:00)
[2018-06-16] MEDS: PROSOURCE / PROSTAT (PYXIS) 30 ML UDC GT SCH ×5 (05:00→21:27)
[2018-06-16] MEDS: ESOMEPRAZOLE MAG TRIHYDRATE 20 MG CAPSULE.DR GT SCH (06:04)
[2018-06-16] MEDS: BLOOD SUGAR DIAGNOSTIC 1 EACH STRIP IN SCH ×4 (06:04→17:44)
[2018-06-16 07:19] VITALS: BP 130/74
[2018-06-16 07:35] VITALS: BP 148/66
[2018-06-16] MEDS: SEVELAMER CARBONATE 0.8 GM POWD.PACK GT SCH ×3 (08:00→17:44)
--- NOTE | 2018-06-16 09:29 | NUR ---
RT PT REC'D TRACHED ON MECHANICAL VENTILATION. NO SOB, NO RESPIRATORY DISTRESS NOTED AT THIS TIME. VENT PLUGGED INTO RED OUTLET. AMBU BAG BY BEDSIDE, ALARMS ON AND AUDIBLE. CUFF CHECKED VIA NAIL STICKER. TX GIVEN, NO ADVERSE REACTIONS NOTED. SX DONE, MODERATE THICK WHITE SECRETIONS NOTED. PATIENT STABLE. WILL CONTINUE TO MONITOR. Addendum: 06/16/18 at 0931 by LONA PAGAN RT Amended: Links added.
[2018-06-16] MEDS: METOPROLOL TARTRATE 50 MG TABLET GT SCH ×2 (09:40→21:56)
[2018-06-16] MEDS: ACIDOPHILUS/BULGARICUS 1 EACH TAB.CHEW GT SCH ×2 (09:40→17:42)
[2018-06-16] MEDS: hydrALAZINE HCL 25 MG TABLET GT SCH ×2 (09:40→17:00)
[2018-06-16] MEDS: POLYVINYL ALCOHOL 15 ML BOTTLE EACHEYE SCH ×2 (09:40→21:27)
[2018-06-16] MEDS: VIT B CMPLX 3/FA/VIT C/BIOTIN 1 TAB TABLET GT SCH (09:41)
[2018-06-16] MEDS: METOCLOPRAMIDE HCL 10 MG/10 ML UDC GT SCH ×2 (09:41→21:27)
[2018-06-16] MEDS: ASCORBIC ACID 500 MG TABLET GT SCH (09:41)
[2018-06-16] MEDS: ACETAMINOPHEN 650 MG/20 ML UDC- SA PATIENTS-PAIN ONLY GT SCH ×2 (09:41→21:27)
[2018-06-16] MEDS: HEPARIN SODIUM, PORCINE 5000 UNITS/1 ML VIAL SQ SCH ×2 (09:42→21:28)
[2018-06-16] MEDS: INSULIN GLARGINE, 100 UNIT/ML CARTRIDGE SQ SCH ×2 (09:43→21:57)
[2018-06-16] MEDS: NYSTATIN TOP POWDER 15 GM BOTTLE TP SCH ×4 (10:41→21:55)
[2018-06-16] MEDS: HYDROGEN PEROXIDE 480 ML BOTTLE TP SCH ×2 (10:41→21:55)
[2018-06-16] MEDS: HYDROGEL DRESSING 90 GM TUBE TP SCH ×3 (10:41→21:55)
[2018-06-16] MEDS: NYSTATIN/TRIAMCIN 15 GM CREAM 15 GM TUBE TP SCH ×2 (10:41→21:55)
[2018-06-16 12:00] VITALS: BP 140/66
[2018-06-16] MEDS: NEPRO 1,000 ML BOTTLE GT PRN (13:30)
[2018-06-16 18:00] VITALS: BP 129/71
--- NOTE | 2018-06-16 19:49 | NUR ---
RT NOTE: RECEIVED TRACH PT ON [facility] VENT ON NOTED SETTINGS PER MD ORDERS. TRACH IS PATENT AND SECURED. NITROCELLULOSE OPERATOR DONE. Q6 BREATHING TX GIVEN WITH NO ADVERSE REACTION NOTED. SX DONE PRN. VENT PLUGGED INTO RED OUTLET. ALARMS ON AND AUDIBLE. NACHO BAG @ BEDSIDE. NO RESP DISTRESS AT THIS TIME. WILL CONT TO MONITOR PT. Addendum: 06/17/18 at 0025 by FREDDY PALMA RT Amended: Links added.
[2018-06-16 20:35] VITALS: BP 111/50
[2018-06-17 00:10] VITALS: BP 133/57
[2018-06-17] MEDS: BLOOD SUGAR DIAGNOSTIC 1 EACH STRIP IN SCH ×4 (00:24→17:59)
[2018-06-17] MEDS: INSULIN REGULAR, HUMAN 100 UNIT/ML 3 ML VIAL SQ PRN ×3 (00:28→17:58)
[2018-06-17] MEDS: IPRATROPIUM NEB FS 0.5 MG/2.5 ML AMPUL.NEB NEB SCH ×4 (00:38→20:07)
[2018-06-17] MEDS: ALBUTEROL FS 2.5 MG/3 ML VIAL.NEB NEB SCH ×4 (00:38→20:07)
[2018-06-17] MEDS: PROSOURCE / PROSTAT (PYXIS) 30 ML UDC GT SCH ×5 (05:00→21:13)
[2018-06-17] MEDS: MAG HYDROX/AL HYDROX/SIMETH 30 ML UDC TP SCH ×4 (05:00→23:00)
[2018-06-17] MEDS: ESOMEPRAZOLE MAG TRIHYDRATE 20 MG CAPSULE.DR GT SCH (06:55)
[2018-06-17 07:04] VITALS: BP 155/70
[2018-06-17 07:34] VITALS: BP 147/73
[2018-06-17] MEDS: SEVELAMER CARBONATE 0.8 GM POWD.PACK GT SCH ×3 (08:00→17:59)
[2018-06-17] MEDS: METOCLOPRAMIDE HCL 10 MG/10 ML UDC GT SCH ×2 (09:21→21:13)
[2018-06-17] MEDS: VIT B CMPLX 3/FA/VIT C/BIOTIN 1 TAB TABLET GT SCH (09:21)
[2018-06-17] MEDS: POLYVINYL ALCOHOL 15 ML BOTTLE EACHEYE SCH ×2 (09:21→21:13)
[2018-06-17] MEDS: ACIDOPHILUS/BULGARICUS 1 EACH TAB.CHEW GT SCH ×2 (09:21→17:59)
--- NOTE | 2018-06-17 09:21 | NUR ---
RT NOTE: PATIENT RECEIVED TRACHED ON MECHANICAL VENT. VENT ALARMS VERIFIED AND AUDIBLE. ALARM WALL CONNECTION IS NOT AVAILABLE AT THIS TIME. CHARGE NURSE AWARE. AMBU BAG AND NEW TRACH AT [facility].
[2018-06-17] MEDS: ACETAMINOPHEN 650 MG/20 ML UDC- SA PATIENTS-PAIN ONLY GT SCH ×2 (09:22→21:13)
[2018-06-17] MEDS: ASCORBIC ACID 500 MG TABLET GT SCH (09:22)
[2018-06-17] MEDS: HEPARIN SODIUM, PORCINE 5000 UNITS/1 ML VIAL SQ SCH ×2 (09:24→21:13)
[2018-06-17] MEDS: INSULIN GLARGINE, 100 UNIT/ML CARTRIDGE SQ SCH ×2 (09:25→21:34)
[2018-06-17] MEDS: NYSTATIN/TRIAMCIN 15 GM CREAM 15 GM TUBE TP SCH ×2 (10:00→22:00)
[2018-06-17] MEDS: HYDROGEL DRESSING 90 GM TUBE TP SCH ×3 (10:00→22:00)
[2018-06-17] MEDS: HYDROGEN PEROXIDE 480 ML BOTTLE TP SCH ×2 (10:00→22:00)
[2018-06-17] MEDS: NYSTATIN TOP POWDER 15 GM BOTTLE TP SCH ×6 (10:00→22:00)
[2018-06-17 15:05] VITALS: BP 128/70
--- NOTE | 2018-06-17 15:30 | NUR ---
Seen and examined by Hellen Leija NP NNO given at this time. Resident returned back from dialysis in stable condition. AV fistula in the R FA with dressing, no bleeding.
[2018-06-17] MEDS: hydrALAZINE HCL 25 MG TABLET GT SCH (17:00)
[2018-06-17 18:59] VITALS: BP 115/51
[2018-06-17 19:28] VITALS: BP 119/63
[2018-06-17] MEDS: METOPROLOL TARTRATE 50 MG TABLET GT SCH (21:14)
[2018-06-18] MEDS: BLOOD SUGAR DIAGNOSTIC 1 EACH STRIP IN SCH ×5 (00:17→23:46)
[2018-06-18] MEDS: INSULIN REGULAR, HUMAN 100 UNIT/ML 3 ML VIAL SQ PRN ×5 (00:18→23:48)
[2018-06-18 00:20] VITALS: BP 99/51
[2018-06-18] MEDS: ALBUTEROL FS 2.5 MG/3 ML VIAL.NEB NEB SCH ×4 (01:48→19:41)
[2018-06-18] MEDS: IPRATROPIUM NEB FS 0.5 MG/2.5 ML AMPUL.NEB NEB SCH ×4 (01:48→19:41)
[2018-06-18] MEDS: PROSOURCE / PROSTAT (PYXIS) 30 ML UDC GT SCH ×5 (05:26→21:17)
[2018-06-18] MEDS: ESOMEPRAZOLE MAG TRIHYDRATE 20 MG CAPSULE.DR GT SCH (05:26)
[2018-06-18] MEDS: MAG HYDROX/AL HYDROX/SIMETH 30 ML UDC TP SCH ×4 (05:26→23:09)
[2018-06-18 06:08] VITALS: BP 117/70
[2018-06-18 07:43] VITALS: BP 158/56
[2018-06-18] MEDS: SEVELAMER CARBONATE 0.8 GM POWD.PACK GT SCH ×3 (08:00→18:19)
[2018-06-18] MEDS: POLYVINYL ALCOHOL 15 ML BOTTLE EACHEYE SCH ×2 (09:53→21:17)
[2018-06-18] MEDS: ACIDOPHILUS/BULGARICUS 1 EACH TAB.CHEW GT SCH ×2 (09:53→17:00)
[2018-06-18] MEDS: hydrALAZINE HCL 25 MG TABLET GT SCH ×2 (09:53→17:00)
[2018-06-18] MEDS: METOCLOPRAMIDE HCL 10 MG/10 ML UDC GT SCH ×2 (09:54→21:17)
[2018-06-18] MEDS: METOPROLOL TARTRATE 50 MG TABLET GT SCH ×2 (09:54→21:20)
[2018-06-18] MEDS: VIT B CMPLX 3/FA/VIT C/BIOTIN 1 TAB TABLET GT SCH (09:54)
[2018-06-18] MEDS: ACETAMINOPHEN 650 MG/20 ML UDC- SA PATIENTS-PAIN ONLY GT SCH ×2 (09:54→21:18)
[2018-06-18] MEDS: ASCORBIC ACID 500 MG TABLET GT SCH (09:54)
[2018-06-18] MEDS: HEPARIN SODIUM, PORCINE 5000 UNITS/1 ML VIAL SQ SCH ×2 (09:56→21:20)
[2018-06-18] MEDS: INSULIN GLARGINE, 100 UNIT/ML CARTRIDGE SQ SCH ×2 (09:56→21:21)
[2018-06-18] MEDS: HYDROGEL DRESSING 90 GM TUBE TP SCH ×3 (10:30→21:45)
[2018-06-18] MEDS: HYDROGEN PEROXIDE 480 ML BOTTLE TP SCH ×2 (10:30→21:45)
[2018-06-18] MEDS: NYSTATIN/TRIAMCIN 15 GM CREAM 15 GM TUBE TP SCH ×2 (10:30→21:45)
[2018-06-18] MEDS: NYSTATIN TOP POWDER 15 GM BOTTLE TP SCH ×6 (10:30→21:45)
[2018-06-18 12:00] VITALS: BP 138/60
--- NOTE | 2018-06-18 16:36 | NUR ---
RT RECD PT TRACHED INTACT AND SECURED ON MECH VENT CESARIO ALARMS ON AND AUDIBLE BAG AND MASK AT HOB, VENT PLUGGED IN RED OUTLET TX GIVEN CESARIO WELL NO ADVERSE REACTION NOTED ATT. SX THICK YELLOW MOD SECRETIONS. NO RESP DISTRESS THROUGHOUT SHIFT WILL CONT TO MONITOR
[2018-06-18 18:00] VITALS: BP 115/91
[2018-06-18 19:36] VITALS: BP 120/52
--- NOTE | 2018-06-18 21:48 | NUR ---
RT NOTE PATIENT WAS RECEIVED ON CONTINUOUS VENT SUPPORT ON NOTED VENT SETTINGS. SUPERVISOR ROVING DEPARTMENT DONE. AMBU BAG @ BEDSIDE. Q6 BREATHING TX GIVEN WITH NO ADVERSE REACTION NOTED. SUCTION DONE PRN.TRACH TUBE PATENT AND SECURED. ALARMS ON AND AUDIBLE. NO RESPIRATORY DISTRESS NOTED AT THIS TIME. WILL CONTINUE TO MONITOR PATIENT. Addendum: 06/18/18 at 2148 by FERMÍN DAMON RT Amended: Links added.
[2018-06-19 00:20] VITALS: BP 113/56
[2018-06-19] MEDS: IPRATROPIUM NEB FS 0.5 MG/2.5 ML AMPUL.NEB NEB SCH ×4 (01:30→19:33)
[2018-06-19] MEDS: ALBUTEROL FS 2.5 MG/3 ML VIAL.NEB NEB SCH ×4 (01:30→19:33)
[2018-06-19] MEDS: PROSOURCE / PROSTAT (PYXIS) 30 ML UDC GT SCH ×5 (05:31→21:36)
[2018-06-19] MEDS: MAG HYDROX/AL HYDROX/SIMETH 30 ML UDC TP SCH ×4 (05:32→23:00)
[2018-06-19] MEDS: BLOOD SUGAR DIAGNOSTIC 1 EACH STRIP IN SCH ×3 (05:32→18:09)
[2018-06-19] MEDS: ESOMEPRAZOLE MAG TRIHYDRATE 20 MG CAPSULE.DR GT SCH (05:32)
[2018-06-19] MEDS: INSULIN REGULAR, HUMAN 100 UNIT/ML 3 ML VIAL SQ PRN (05:33)
[2018-06-19] MEDS: NEPRO 1,000 ML BOTTLE GT PRN (06:00)
[2018-06-19 06:11] VITALS: BP 129/65
[2018-06-19 07:34] VITALS: BP 140/59
[2018-06-19] MEDS: SEVELAMER CARBONATE 0.8 GM POWD.PACK GT SCH ×3 (08:00→18:09)
[2018-06-19] MEDS: VIT B CMPLX 3/FA/VIT C/BIOTIN 1 TAB TABLET GT SCH (09:50)
[2018-06-19] MEDS: ASCORBIC ACID 500 MG TABLET GT SCH (09:50)
[2018-06-19] MEDS: METOCLOPRAMIDE HCL 10 MG/10 ML UDC GT SCH ×2 (09:50→21:36)
[2018-06-19] MEDS: ACETAMINOPHEN 650 MG/20 ML UDC- SA PATIENTS-PAIN ONLY GT SCH ×2 (09:50→10:50)
[2018-06-19] MEDS: ACIDOPHILUS/BULGARICUS 1 EACH TAB.CHEW GT SCH ×2 (09:50→17:00)
[2018-06-19] MEDS: POLYVINYL ALCOHOL 15 ML BOTTLE EACHEYE SCH ×2 (09:50→21:36)
[2018-06-19] MEDS: HEPARIN SODIUM, PORCINE 5000 UNITS/1 ML VIAL SQ SCH ×2 (09:51→21:40)
[2018-06-19] MEDS: INSULIN GLARGINE, 100 UNIT/ML CARTRIDGE SQ SCH ×2 (09:52→21:46)
[2018-06-19] MEDS: NYSTATIN TOP POWDER 15 GM BOTTLE TP SCH ×6 (10:20→21:41)
[2018-06-19] MEDS: HYDROGEL DRESSING 90 GM TUBE TP SCH ×3 (10:20→21:41)
[2018-06-19] MEDS: HYDROGEN PEROXIDE 480 ML BOTTLE TP SCH ×2 (10:20→21:41)
[2018-06-19] MEDS: NYSTATIN/TRIAMCIN 15 GM CREAM 15 GM TUBE TP SCH ×2 (10:20→21:41)
[2018-06-19 15:00] VITALS: BP 148/51
--- NOTE | 2018-06-19 16:04 | NUR ---
RT PT BROUGHT BACK FROM DIALYSIS, PT APPEARS TO BE STABLE AT THIS TIME. VENT ALARMS ARE SET AND AUDIBLE WITH BVM BY BEDSIDE. VENT IS PLUGGED INTO RED OUTLET. VENT CALL LIGHT ALARMS PLUGGED IN AND FUNCTIONAL. NO RESPIRATORY DISTRESS NOTED AT THIS TIME, WILL CONTINUE TO MONITOR. Addendum: 06/19/18 at 1640 by EDU CIFUENTES RT Amended: Links added.
[2018-06-19] MEDS: hydrALAZINE HCL 25 MG TABLET GT SCH (17:00)
[2018-06-19 18:10] VITALS: BP 155/66
--- NOTE | 2018-06-19 20:02 | NUR ---
RT NOTE PT RECEIVED ON [facility] VENT ON THE FOLLOWING NOTED SETTINGS. PT HAS SMALL THIN YELLOW/WHITE SECRETIONS WHEN SUCTIONED. BREATHING TX GIVEN, NO ADVERSE REACTIONS NOTED AT THIS TIME. VENT IS PLUGGED INTO RED OUTLET. ALARMS ARE ON AND AUDIBLE. SPARE TRACH AND AMBU BAG ARE AT BEDSIDE. WILL CONT TO MONITOR PT. Addendum: 06/19/18 at 2003 by SHANI PEÑA RT Amended: Links added.
[2018-06-19 21:05] VITALS: BP 148/59
[2018-06-19] MEDS: METOPROLOL TARTRATE 50 MG TABLET GT SCH (21:50)
[2018-06-20] VITALS: BP 102/44
[2018-06-20] MEDS: BLOOD SUGAR DIAGNOSTIC 1 EACH STRIP IN SCH ×4 (00:25→18:38)
[2018-06-20] MEDS: INSULIN REGULAR, HUMAN 100 UNIT/ML 3 ML VIAL SQ PRN ×4 (00:27→18:40)
[2018-06-20] MEDS: CLONIDINE HCL 0.2 MG TABLET GT PRN ×2 (00:47→05:18)
[2018-06-20] MEDS: IPRATROPIUM NEB FS 0.5 MG/2.5 ML AMPUL.NEB NEB SCH ×4 (01:12→19:53)
[2018-06-20] MEDS: ALBUTEROL FS 2.5 MG/3 ML VIAL.NEB NEB SCH ×4 (01:12→19:53)
[2018-06-20] MEDS: MAG HYDROX/AL HYDROX/SIMETH 30 ML UDC TP SCH ×4 (05:16→23:05)
[2018-06-20] MEDS: PROSOURCE / PROSTAT (PYXIS) 30 ML UDC GT SCH ×5 (05:16→21:33)
[2018-06-20] MEDS: ESOMEPRAZOLE MAG TRIHYDRATE 20 MG CAPSULE.DR GT SCH (05:16)
[2018-06-20 06:00] VITALS: BP 140/69
[2018-06-20 07:54] VITALS: BP 113/57
[2018-06-20] MEDS: SEVELAMER CARBONATE 0.8 GM POWD.PACK GT SCH ×3 (08:00→18:38)
[2018-06-20] MEDS: NYSTATIN/TRIAMCIN 15 GM CREAM 15 GM TUBE TP SCH ×2 (09:00→21:36)
[2018-06-20] MEDS: ASCORBIC ACID 500 MG TABLET GT SCH (09:00)
[2018-06-20] MEDS: HYDROGEL DRESSING 90 GM TUBE TP SCH ×3 (09:00→21:36)
[2018-06-20] MEDS: hydrALAZINE HCL 25 MG TABLET GT SCH ×2 (09:00→17:00)
[2018-06-20] MEDS: NYSTATIN TOP POWDER 15 GM BOTTLE TP SCH ×6 (09:00→21:40)
[2018-06-20] MEDS: HEPARIN SODIUM, PORCINE 5000 UNITS/1 ML VIAL SQ SCH ×2 (09:00→21:34)
[2018-06-20] MEDS: INSULIN GLARGINE, 100 UNIT/ML CARTRIDGE SQ SCH ×2 (09:00→21:56)
[2018-06-20] MEDS: HYDROGEN PEROXIDE 480 ML BOTTLE TP SCH ×2 (09:00→21:36)
[2018-06-20] MEDS: POLYVINYL ALCOHOL 15 ML BOTTLE EACHEYE SCH ×2 (09:58→21:30)
[2018-06-20] MEDS: ACIDOPHILUS/BULGARICUS 1 EACH TAB.CHEW GT SCH ×2 (09:59→17:00)
[2018-06-20] MEDS: VIT B CMPLX 3/FA/VIT C/BIOTIN 1 TAB TABLET GT SCH (09:59)
[2018-06-20] MEDS: METOPROLOL TARTRATE 50 MG TABLET GT SCH ×2 (09:59→21:37)
[2018-06-20] MEDS: METOCLOPRAMIDE HCL 10 MG/10 ML UDC GT SCH ×2 (09:59→21:33)
[2018-06-20 18:41] VITALS: BP 95/58
[2018-06-20] MEDS: NEPRO 1,000 ML BOTTLE GT PRN (18:45)
[2018-06-20 19:48] VITALS: BP 127/55
[2018-06-20] MEDS: ACETAMINOPHEN 650 MG/20 ML UDC- SA PATIENTS-PAIN ONLY GT SCH (22:00)
[2018-06-21] VITALS: BP 125/55
[2018-06-21] MEDS: BLOOD SUGAR DIAGNOSTIC 1 EACH STRIP IN SCH ×5 (00:24→23:22)
[2018-06-21] MEDS: INSULIN REGULAR, HUMAN 100 UNIT/ML 3 ML VIAL SQ PRN ×5 (00:29→23:19)
[2018-06-21] MEDS: ALBUTEROL FS 2.5 MG/3 ML VIAL.NEB NEB SCH ×4 (00:45→19:21)
[2018-06-21] MEDS: IPRATROPIUM NEB FS 0.5 MG/2.5 ML AMPUL.NEB NEB SCH ×4 (00:45→19:21)
[2018-06-21] MEDS: PROSOURCE / PROSTAT (PYXIS) 30 ML UDC GT SCH ×5 (05:32→20:46)
[2018-06-21] MEDS: MAG HYDROX/AL HYDROX/SIMETH 30 ML UDC TP SCH ×4 (05:32→22:33)
[2018-06-21] MEDS: ESOMEPRAZOLE MAG TRIHYDRATE 20 MG CAPSULE.DR GT SCH (05:32)
[2018-06-21] MEDS: SEVELAMER CARBONATE 0.8 GM POWD.PACK GT SCH ×3 (08:00→18:28)
[2018-06-21] MEDS: ACIDOPHILUS/BULGARICUS 1 EACH TAB.CHEW GT SCH ×2 (09:00→17:00)
[2018-06-21] MEDS: NYSTATIN TOP POWDER 15 GM BOTTLE TP SCH ×6 (09:00→20:48)
[2018-06-21] MEDS: VIT B CMPLX 3/FA/VIT C/BIOTIN 1 TAB TABLET GT SCH (09:00)
[2018-06-21] MEDS: hydrALAZINE HCL 25 MG TABLET GT SCH ×2 (09:00→17:00)
[2018-06-21] MEDS: HEPARIN SODIUM, PORCINE 5000 UNITS/1 ML VIAL SQ SCH ×2 (09:00→20:48)
[2018-06-21] MEDS: HYDROGEL DRESSING 90 GM TUBE TP SCH ×3 (09:00→20:48)
[2018-06-21] MEDS: METOPROLOL TARTRATE 50 MG TABLET GT SCH ×2 (09:00→21:53)
[2018-06-21] MEDS: METOCLOPRAMIDE HCL 10 MG/10 ML UDC GT SCH ×2 (09:00→20:46)
[2018-06-21] MEDS: POLYVINYL ALCOHOL 15 ML BOTTLE EACHEYE SCH ×2 (09:00→20:46)
[2018-06-21] MEDS: ASCORBIC ACID 500 MG TABLET GT SCH (09:00)
[2018-06-21] MEDS: HYDROGEN PEROXIDE 480 ML BOTTLE TP SCH ×2 (09:00→20:48)
[2018-06-21] MEDS: ACETAMINOPHEN 650 MG/20 ML UDC- SA PATIENTS-PAIN ONLY GT SCH ×2 (09:00→20:47)
[2018-06-21] MEDS: NYSTATIN/TRIAMCIN 15 GM CREAM 15 GM TUBE TP SCH ×2 (09:00→20:48)
[2018-06-21] MEDS: INSULIN GLARGINE, 100 UNIT/ML CARTRIDGE SQ SCH ×2 (09:00→22:40)
[2018-06-21 12:17] VITALS: BP 131/63
--- NOTE | 2018-06-21 14:21 | NUR ---
Pt. was seeing by the podiatry Dr. Fowler on 06/18 and an appointment was made for 07/09.
[2018-06-21 17:42] VITALS: BP 128/65
[2018-06-21 18:36] VITALS: BP 165/70
[2018-06-21 19:43] VITALS: BP 159/70
[2018-06-21] MEDS: NEPRO 1,000 ML BOTTLE GT PRN (22:18)
--- NOTE | 2018-06-21 23:00 | NUR ---
RN NOTES BLOOD GLUCOSE ACCUCHECK: 217. ADMINISTERED SCHEDULED LANTUS 20UN. GAVE ADDITIONAL INSULIN COVERAGE OF 6UN NOVOLIN PER SLIDING SCALE.
[2018-06-22] VITALS: BP 159/70
[2018-06-22] MEDS: IPRATROPIUM NEB FS 0.5 MG/2.5 ML AMPUL.NEB NEB SCH ×4 (01:10→19:23)
[2018-06-22] MEDS: ALBUTEROL FS 2.5 MG/3 ML VIAL.NEB NEB SCH ×4 (01:10→19:23)
[2018-06-22] MEDS: MAG HYDROX/AL HYDROX/SIMETH 30 ML UDC TP SCH ×4 (05:19→22:19)
[2018-06-22] MEDS: PROSOURCE / PROSTAT (PYXIS) 30 ML UDC GT SCH ×5 (05:19→21:15)
[2018-06-22] MEDS: BLOOD SUGAR DIAGNOSTIC 1 EACH STRIP IN SCH ×3 (05:24→17:54)
[2018-06-22] MEDS: ESOMEPRAZOLE MAG TRIHYDRATE 20 MG CAPSULE.DR GT SCH (05:24)
[2018-06-22] MEDS: INSULIN REGULAR, HUMAN 100 UNIT/ML 3 ML VIAL SQ PRN ×2 (05:58→17:54)
[2018-06-22 06:00] VITALS: BP 145/65
[2018-06-22] MEDS: SEVELAMER CARBONATE 0.8 GM POWD.PACK GT SCH ×3 (08:00→17:52)
[2018-06-22] MEDS: HYDROGEN PEROXIDE 480 ML BOTTLE TP SCH ×2 (09:00→21:46)
[2018-06-22] MEDS: NYSTATIN/TRIAMCIN 15 GM CREAM 15 GM TUBE TP SCH ×2 (09:00→21:47)
[2018-06-22] MEDS: ACETAMINOPHEN 650 MG/20 ML UDC- SA PATIENTS-PAIN ONLY GT SCH ×2 (09:00→21:16)
[2018-06-22] MEDS: HYDROGEL DRESSING 90 GM TUBE TP SCH ×3 (09:00→21:46)
[2018-06-22] MEDS: NYSTATIN TOP POWDER 15 GM BOTTLE TP SCH ×6 (09:00→21:47)
[2018-06-22] MEDS: ACIDOPHILUS/BULGARICUS 1 EACH TAB.CHEW GT SCH ×2 (09:53→17:50)
[2018-06-22] MEDS: ASCORBIC ACID 500 MG TABLET GT SCH (09:53)
[2018-06-22] MEDS: VIT B CMPLX 3/FA/VIT C/BIOTIN 1 TAB TABLET GT SCH (09:53)
[2018-06-22] MEDS: METOCLOPRAMIDE HCL 10 MG/10 ML UDC GT SCH ×2 (09:53→21:16)
[2018-06-22] MEDS: POLYVINYL ALCOHOL 15 ML BOTTLE EACHEYE SCH ×2 (09:53→21:15)
[2018-06-22] MEDS: HEPARIN SODIUM, PORCINE 5000 UNITS/1 ML VIAL SQ SCH ×2 (09:55→21:17)
[2018-06-22] MEDS: INSULIN GLARGINE, 100 UNIT/ML CARTRIDGE SQ SCH ×2 (09:56→22:18)
[2018-06-22 12:14] VITALS: BP 176/86
[2018-06-22] MEDS: hydrALAZINE HCL 25 MG TABLET GT SCH (17:50)
[2018-06-22 17:55] VITALS: BP 140/52
[2018-06-22 18:07] VITALS: BP 140/52
[2018-06-22] MEDS: METOPROLOL TARTRATE 50 MG TABLET GT SCH (21:17)
[2018-06-23] VITALS (7 sets, daily range): BP systolic 131–165; BP diastolic 52–82
[2018-06-23] MEDS: BLOOD SUGAR DIAGNOSTIC 1 EACH STRIP IN SCH ×5 (00:47→23:34)
[2018-06-23] MEDS: INSULIN REGULAR, HUMAN 100 UNIT/ML 3 ML VIAL SQ PRN ×5 (00:50→23:37)
[2018-06-23] MEDS: IPRATROPIUM NEB FS 0.5 MG/2.5 ML AMPUL.NEB NEB SCH ×4 (01:48→19:38)
[2018-06-23] MEDS: ALBUTEROL FS 2.5 MG/3 ML VIAL.NEB NEB SCH ×4 (01:48→19:38)
[2018-06-23] MEDS: PROSOURCE / PROSTAT (PYXIS) 30 ML UDC GT SCH ×5 (05:17→20:07)
[2018-06-23] MEDS: ESOMEPRAZOLE MAG TRIHYDRATE 20 MG CAPSULE.DR GT SCH (05:17)
[2018-06-23] MEDS: MAG HYDROX/AL HYDROX/SIMETH 30 ML UDC TP SCH ×4 (05:17→22:05)
[2018-06-23] MEDS: NEPRO 1,000 ML BOTTLE GT PRN (06:08)
[2018-06-23] MEDS: SEVELAMER CARBONATE 0.8 GM POWD.PACK GT SCH ×3 (08:00→17:56)
[2018-06-23] MEDS: POLYVINYL ALCOHOL 15 ML BOTTLE EACHEYE SCH ×2 (09:00→20:07)
[2018-06-23] MEDS: ACIDOPHILUS/BULGARICUS 1 EACH TAB.CHEW GT SCH ×2 (09:52→17:53)
[2018-06-23] MEDS: hydrALAZINE HCL 25 MG TABLET GT SCH ×2 (09:52→17:53)
[2018-06-23] MEDS: ASCORBIC ACID 500 MG TABLET GT SCH (09:53)
[2018-06-23] MEDS: VIT B CMPLX 3/FA/VIT C/BIOTIN 1 TAB TABLET GT SCH (09:53)
[2018-06-23] MEDS: METOCLOPRAMIDE HCL 10 MG/10 ML UDC GT SCH ×2 (09:53→20:07)
[2018-06-23] MEDS: METOPROLOL TARTRATE 50 MG TABLET GT SCH ×2 (09:53→21:07)
[2018-06-23] MEDS: ACETAMINOPHEN 650 MG/20 ML UDC- SA PATIENTS-PAIN ONLY GT SCH ×2 (09:53→20:08)
[2018-06-23] MEDS: HEPARIN SODIUM, PORCINE 5000 UNITS/1 ML VIAL SQ SCH ×2 (09:54→20:13)
[2018-06-23] MEDS: INSULIN GLARGINE, 100 UNIT/ML CARTRIDGE SQ SCH ×2 (09:54→21:11)
[2018-06-23] MEDS: HYDROGEL DRESSING 90 GM TUBE TP SCH ×3 (10:53→20:08)
[2018-06-23] MEDS: NYSTATIN/TRIAMCIN 15 GM CREAM 15 GM TUBE TP SCH ×2 (10:53→20:08)
[2018-06-23] MEDS: HYDROGEN PEROXIDE 480 ML BOTTLE TP SCH ×2 (10:53→20:08)
[2018-06-23] MEDS: NYSTATIN TOP POWDER 15 GM BOTTLE TP SCH ×6 (10:53→20:08)
--- NOTE | 2018-06-23 14:00 | NUR ---
Seen and examined by Laly Leija NP NNO given.
[2018-06-24 00:03] VITALS: BP 96/49
[2018-06-24] MEDS: IPRATROPIUM NEB FS 0.5 MG/2.5 ML AMPUL.NEB NEB SCH ×4 (02:17→19:16)
[2018-06-24] MEDS: ALBUTEROL FS 2.5 MG/3 ML VIAL.NEB NEB SCH ×4 (02:17→19:16)
[2018-06-24] MEDS: PROSOURCE / PROSTAT (PYXIS) 30 ML UDC GT SCH ×5 (04:03→20:42)
[2018-06-24] MEDS: MAG HYDROX/AL HYDROX/SIMETH 30 ML UDC TP SCH ×4 (04:04→23:43)
[2018-06-24] MEDS: ESOMEPRAZOLE MAG TRIHYDRATE 20 MG CAPSULE.DR GT SCH (05:09)
[2018-06-24] MEDS: BLOOD SUGAR DIAGNOSTIC 1 EACH STRIP IN SCH ×4 (05:39→23:43)
[2018-06-24] MEDS: INSULIN REGULAR, HUMAN 100 UNIT/ML 3 ML VIAL SQ PRN ×3 (05:43→23:45)
[2018-06-24] MEDS: NEPRO 1,000 ML BOTTLE GT PRN (05:45)
[2018-06-24 06:00] VITALS: BP 127/54
[2018-06-24 07:40] VITALS: BP 157/86
[2018-06-24] MEDS: SEVELAMER CARBONATE 0.8 GM POWD.PACK GT SCH ×3 (08:58→17:10)
[2018-06-24] MEDS: POLYVINYL ALCOHOL 15 ML BOTTLE EACHEYE SCH ×2 (08:58→20:42)
[2018-06-24] MEDS: METOCLOPRAMIDE HCL 10 MG/10 ML UDC GT SCH ×2 (08:58→20:42)
[2018-06-24] MEDS: ACIDOPHILUS/BULGARICUS 1 EACH TAB.CHEW GT SCH ×2 (08:58→17:10)
[2018-06-24] MEDS: VIT B CMPLX 3/FA/VIT C/BIOTIN 1 TAB TABLET GT SCH (08:58)
[2018-06-24] MEDS: ACETAMINOPHEN 650 MG/20 ML UDC- SA PATIENTS-PAIN ONLY GT SCH ×2 (08:59→20:42)
[2018-06-24] MEDS: INSULIN GLARGINE, 100 UNIT/ML CARTRIDGE SQ SCH ×2 (08:59→21:17)
[2018-06-24] MEDS: ASCORBIC ACID 500 MG TABLET GT SCH (08:59)
[2018-06-24] MEDS: NYSTATIN/TRIAMCIN 15 GM CREAM 15 GM TUBE TP SCH ×2 (09:40→20:43)
[2018-06-24] MEDS: BACI/NEOM/POLY B OINT PKT 1 UDPKT PACKET TP SCH ×2 (09:40→20:43)
[2018-06-24] MEDS: HYDROGEL DRESSING 90 GM TUBE TP SCH ×3 (09:40→20:43)
[2018-06-24] MEDS: HYDROGEN PEROXIDE 480 ML BOTTLE TP SCH ×2 (09:40→20:43)
[2018-06-24] MEDS: NYSTATIN TOP POWDER 15 GM BOTTLE TP SCH ×6 (09:40→20:43)
[2018-06-24] MEDS: HEPARIN SODIUM, PORCINE 5000 UNITS/1 ML VIAL SQ SCH ×2 (09:59→20:43)
[2018-06-24 15:40] VITALS: BP 134/46
[2018-06-24] MEDS: hydrALAZINE HCL 25 MG TABLET GT SCH (17:00)
[2018-06-24 18:13] VITALS: BP 129/50
[2018-06-24 19:28] VITALS: BP 147/98
[2018-06-24] MEDS: METOPROLOL TARTRATE 50 MG TABLET GT SCH (21:16)
--- NOTE | 2018-06-24 21:38 | NUR ---
RT NOTE PATIENT WAS RECEIVED ON CONTINUOUS VENT SUPPORT ON NOTED VENT SETTINGS. OUT PATIENT THERAPIST DONE. AMBU BAG @ BEDSIDE. Q6 BREATHING TX GIVEN WITH NO ADVERSE REACTION NOTED. SUCTION DONE PRN.TRACH TUBE PATENT AND SECURED. ALARMS ON AND AUDIBLE. NO RESPIRATORY DISTRESS NOTED AT THIS TIME. WILL CONTINUE TO MONITOR PATIENT. Addendum: 06/24/18 at 2138 by FERMÍN DAMON RT Amended: Links added.
[2018-06-25] VITALS (7 sets, daily range): BP systolic 114–156; BP diastolic 52–79
[2018-06-25] MEDS: IPRATROPIUM NEB FS 0.5 MG/2.5 ML AMPUL.NEB NEB SCH ×4 (01:14→19:18)
[2018-06-25] MEDS: ALBUTEROL FS 2.5 MG/3 ML VIAL.NEB NEB SCH ×4 (01:14→19:18)
[2018-06-25] MEDS: MAG HYDROX/AL HYDROX/SIMETH 30 ML UDC TP SCH ×4 (05:36→23:33)
[2018-06-25] MEDS: ESOMEPRAZOLE MAG TRIHYDRATE 20 MG CAPSULE.DR GT SCH (05:36)
[2018-06-25] MEDS: BLOOD SUGAR DIAGNOSTIC 1 EACH STRIP IN SCH ×4 (05:36→23:33)
[2018-06-25] MEDS: PROSOURCE / PROSTAT (PYXIS) 30 ML UDC GT SCH ×5 (05:36→20:05)
[2018-06-25] MEDS: INSULIN REGULAR, HUMAN 100 UNIT/ML 3 ML VIAL SQ PRN ×4 (05:37→23:36)
[2018-06-25] MEDS: SEVELAMER CARBONATE 0.8 GM POWD.PACK GT SCH ×3 (08:00→18:14)
[2018-06-25] MEDS: HYDROGEN PEROXIDE 480 ML BOTTLE TP SCH ×2 (09:00→20:08)
[2018-06-25] MEDS: BACI/NEOM/POLY B OINT PKT 1 UDPKT PACKET TP SCH ×2 (09:00→20:09)
[2018-06-25] MEDS: HEPARIN SODIUM, PORCINE 5000 UNITS/1 ML VIAL SQ SCH ×2 (09:00→20:08)
[2018-06-25] MEDS ORDERED: TUBERCULIN,PURIF.PROT.DERIV. 5 TU/0.1 ML VIAL ID SCH (09:00)
[2018-06-25] MEDS: ACIDOPHILUS/BULGARICUS 1 EACH TAB.CHEW GT SCH ×2 (09:50→16:32)
[2018-06-25] MEDS: POLYVINYL ALCOHOL 15 ML BOTTLE EACHEYE SCH ×2 (09:50→20:05)
[2018-06-25] MEDS: hydrALAZINE HCL 25 MG TABLET GT SCH ×2 (09:50→16:32)
[2018-06-25] MEDS: METOCLOPRAMIDE HCL 10 MG/10 ML UDC GT SCH ×2 (09:51→20:05)
[2018-06-25] MEDS: VIT B CMPLX 3/FA/VIT C/BIOTIN 1 TAB TABLET GT SCH (09:51)
[2018-06-25] MEDS: ACETAMINOPHEN 650 MG/20 ML UDC- SA PATIENTS-PAIN ONLY GT SCH ×2 (09:51→20:06)
[2018-06-25] MEDS: ASCORBIC ACID 500 MG TABLET GT SCH (09:51)
[2018-06-25] MEDS: METOPROLOL TARTRATE 50 MG TABLET GT SCH ×2 (09:51→21:42)
[2018-06-25] MEDS: INSULIN GLARGINE, 100 UNIT/ML CARTRIDGE SQ SCH ×2 (09:56→21:43)
[2018-06-25] MEDS: HYDROGEL DRESSING 90 GM TUBE TP SCH ×3 (10:30→20:08)
[2018-06-25] MEDS: NYSTATIN TOP POWDER 15 GM BOTTLE TP SCH ×6 (10:30→20:08)
[2018-06-25] MEDS: NYSTATIN/TRIAMCIN 15 GM CREAM 15 GM TUBE TP SCH ×2 (10:30→20:08)
[2018-06-25] MEDS: NEPRO 1,000 ML BOTTLE GT PRN (15:54)
--- NOTE | 2018-06-25 19:19 | NUR ---
Received trach pt on a mechanical vent. Pt trach is secure. Vent is plugged into a red outlet, alarms are set and audible and BMV is at bedside. Addendum: 06/25/18 at 1919 by ANNMARIE CARVER RT Amended: Links added.
[2018-06-26] VITALS: BP 127/43
[2018-06-26] MEDS: IPRATROPIUM NEB FS 0.5 MG/2.5 ML AMPUL.NEB NEB SCH ×4 (01:24→19:30)
[2018-06-26] MEDS: ALBUTEROL FS 2.5 MG/3 ML VIAL.NEB NEB SCH ×4 (01:24→19:30)
[2018-06-26] MEDS: MAG HYDROX/AL HYDROX/SIMETH 30 ML UDC TP SCH ×4 (04:55→23:16)
[2018-06-26] MEDS: PROSOURCE / PROSTAT (PYXIS) 30 ML UDC GT SCH ×5 (04:55→20:35)
[2018-06-26] MEDS: ESOMEPRAZOLE MAG TRIHYDRATE 20 MG CAPSULE.DR GT SCH (05:09)
[2018-06-26] MEDS: BLOOD SUGAR DIAGNOSTIC 1 EACH STRIP IN SCH ×4 (05:10→23:16)
[2018-06-26 06:32] VITALS: BP 151/52
[2018-06-26 07:49] VITALS: BP 139/53
[2018-06-26] MEDS: SEVELAMER CARBONATE 0.8 GM POWD.PACK GT SCH ×3 (08:24→17:52)
[2018-06-26] MEDS: POLYVINYL ALCOHOL 15 ML BOTTLE EACHEYE SCH ×2 (08:24→20:35)
[2018-06-26] MEDS: ACIDOPHILUS/BULGARICUS 1 EACH TAB.CHEW GT SCH ×2 (08:25→16:57)
[2018-06-26] MEDS: METOCLOPRAMIDE HCL 10 MG/10 ML UDC GT SCH ×2 (08:25→20:35)
[2018-06-26] MEDS: HYDROGEL DRESSING 90 GM TUBE TP SCH ×3 (08:26→20:36)
[2018-06-26] MEDS: ASCORBIC ACID 500 MG TABLET GT SCH (08:26)
[2018-06-26] MEDS: ACETAMINOPHEN 650 MG/20 ML UDC- SA PATIENTS-PAIN ONLY GT SCH ×2 (08:26→20:35)
[2018-06-26] MEDS: HYDROGEN PEROXIDE 480 ML BOTTLE TP SCH ×2 (08:26→20:36)
[2018-06-26] MEDS: NYSTATIN/TRIAMCIN 15 GM CREAM 15 GM TUBE TP SCH ×2 (08:27→20:37)
[2018-06-26] MEDS: BACI/NEOM/POLY B OINT PKT 1 UDPKT PACKET TP SCH ×2 (08:27→20:37)
[2018-06-26] MEDS: NYSTATIN TOP POWDER 15 GM BOTTLE TP SCH ×6 (08:27→20:37)
[2018-06-26] MEDS: VIT B CMPLX 3/FA/VIT C/BIOTIN 1 TAB TABLET GT SCH (08:29)
[2018-06-26] MEDS: HEPARIN SODIUM, PORCINE 5000 UNITS/1 ML VIAL SQ SCH ×2 (08:48→20:36)
[2018-06-26] MEDS: INSULIN GLARGINE, 100 UNIT/ML CARTRIDGE SQ SCH ×2 (08:48→21:09)
--- NOTE | 2018-06-26 13:30 | NUR ---
RN NOTE BLOOD SUGAR CHECK DUE AT 1200 WAS NOT, PROSTAT AND RENVELA DUE AT 1300 WERE NOT DONE DUE TO PATIENT BEING AT THE DIALYSIS CENTER.
[2018-06-26 15:30] VITALS: BP_SYST 64
--- NOTE | 2018-06-26 15:30 | NUR ---
Patient just returned back from dialysis. Resident's boyfriend John visited. He asked why patient's L arm has splint. Explained that a couple of months ago, L arm xray was taken because patient's shoulder was noted to be protruding. Xray result shows fracture and osteopenia. Patient was sent to ER for evaluation and CN notified him that day. Reminded him that he may have forgotten the conversation. He said that he has not been in to see patient for a sometime. However he calls the unit to check on patient's condition or staff call him to notify of new orders or changes in condition. John verbalized that he would like to speak with social service because he is considering transferring patient to a facility close to where they live. According to John, this place is very far for him to visit often. Suggested to call [facility] on Thursday and give the name of the facility once he identified one so [facility] can start the process with admission coordinator of receiving facility. He verbalized understanding.
--- NOTE | 2018-06-26 16:37 | NUR ---
RT NOTE: PATIENT RECEIVED TRACHED ON MECHANICAL VENT. ALARMS VERIFIED AND AUDIBLE. SUCTIONED AND LAVAGED SMALL-MODERATE AMOUNT OF THICK PARKINSON SECRETIONS. AMBU BAG AND NEW TRACH AT [facility].
[2018-06-26] MEDS: hydrALAZINE HCL 25 MG TABLET GT SCH (16:56)
[2018-06-26 18:00] VITALS: BP 139/53
[2018-06-26] MEDS: METOPROLOL TARTRATE 50 MG TABLET GT SCH (21:08)
[2018-06-26 22:41] VITALS: BP 122/50
[2018-06-26] MEDS: INSULIN REGULAR, HUMAN 100 UNIT/ML 3 ML VIAL SQ PRN (23:17)
[2018-06-27 00:45] VITALS: BP 105/48
[2018-06-27] MEDS: IPRATROPIUM NEB FS 0.5 MG/2.5 ML AMPUL.NEB NEB SCH ×4 (02:21→19:24)
[2018-06-27] MEDS: ALBUTEROL FS 2.5 MG/3 ML VIAL.NEB NEB SCH ×4 (02:21→19:24)
[2018-06-27] MEDS: ESOMEPRAZOLE MAG TRIHYDRATE 20 MG CAPSULE.DR GT SCH (05:27)
[2018-06-27] MEDS: NEPRO 1,000 ML BOTTLE GT PRN (05:27)
[2018-06-27] MEDS: PROSOURCE / PROSTAT (PYXIS) 30 ML UDC GT SCH ×5 (05:27→21:05)
[2018-06-27] MEDS: MAG HYDROX/AL HYDROX/SIMETH 30 ML UDC TP SCH ×4 (05:27→23:19)
[2018-06-27] MEDS: BLOOD SUGAR DIAGNOSTIC 1 EACH STRIP IN SCH ×4 (05:27→23:12)
[2018-06-27] MEDS: INSULIN REGULAR, HUMAN 100 UNIT/ML 3 ML VIAL SQ PRN ×4 (05:28→23:17)
--- NOTE | 2018-06-27 05:30 | NUR ---
RT RECD PT TRACHED INTACT AND SECURED ON MECH VENT CESARIO ORDERED SETTINGS. ALARMS ON AND AUDIBLE BAG AND MASK AT HOB TXS GIVEN CESARIO WELL NO ADVERSE REACTION NOTED ATT NO RESP DISTRESS THROUGHOUT SHIFT WILL CONT TO MONITOR
[2018-06-27 06:13] VITALS: BP 116/53
[2018-06-27 07:29] VITALS: BP 139/64
[2018-06-27] MEDS: SEVELAMER CARBONATE 0.8 GM POWD.PACK GT SCH ×3 (08:00→17:34)
[2018-06-27] MEDS: HYDROGEL DRESSING 90 GM TUBE TP SCH ×3 (09:00→21:06)
[2018-06-27] MEDS: NYSTATIN TOP POWDER 15 GM BOTTLE TP SCH ×6 (09:00→21:06)
[2018-06-27] MEDS: BACI/NEOM/POLY B OINT PKT 1 UDPKT PACKET TP SCH ×2 (09:00→21:06)
[2018-06-27] MEDS: HYDROGEN PEROXIDE 480 ML BOTTLE TP SCH ×2 (09:00→21:06)
[2018-06-27] MEDS: hydrALAZINE HCL 25 MG TABLET GT SCH ×2 (09:00→16:46)
[2018-06-27] MEDS: POLYVINYL ALCOHOL 15 ML BOTTLE EACHEYE SCH ×2 (09:05→21:05)
[2018-06-27] MEDS: ACIDOPHILUS/BULGARICUS 1 EACH TAB.CHEW GT SCH ×2 (09:06→16:46)
[2018-06-27] MEDS: METOPROLOL TARTRATE 50 MG TABLET GT SCH ×2 (09:06→21:07)
[2018-06-27] MEDS: VIT B CMPLX 3/FA/VIT C/BIOTIN 1 TAB TABLET GT SCH (09:07)
[2018-06-27] MEDS: ACETAMINOPHEN 650 MG/20 ML UDC- SA PATIENTS-PAIN ONLY GT SCH ×2 (09:07→21:05)
[2018-06-27] MEDS: ASCORBIC ACID 500 MG TABLET GT SCH (09:07)
[2018-06-27] MEDS: METOCLOPRAMIDE HCL 10 MG/10 ML UDC GT SCH ×2 (09:07→21:05)
[2018-06-27] MEDS: HEPARIN SODIUM, PORCINE 5000 UNITS/1 ML VIAL SQ SCH ×2 (09:08→21:06)
[2018-06-27] MEDS: INSULIN GLARGINE, 100 UNIT/ML CARTRIDGE SQ SCH ×2 (09:09→21:08)
[2018-06-27 12:00] VITALS: BP 140/54
[2018-06-27 18:00] VITALS: BP 136/71
[2018-06-27 19:36] VITALS: BP 110/52
--- NOTE | 2018-06-27 19:45 | NUR ---
RT PATIENT REC'D ON VENT ON NOTED SETTINGS. PT IS AWAKE BUT DOES NOT RESPOND TO COMMANDS. NO SOB, NO RESPIRATORY DISTRESS NOTED AT THIS TIME. TRACH TUBE PATENT, SECURE, IN PLACE. AMBU BAG BY BEDSIDE, TX GIVEN WITHOUT ADVERSE REACTION, PATIENT SUCTIONED WITH MODERATE THICK PALE YELLOW SECRETIONS, VENT ALARMS ON AND AUDIBLE, VENT PLUGGED IN RED OUTLET. WILL CONTINUE TO MONITOR. Addendum: 06/27/18 at 2137 by LONA PAGAN RT Amended: Links added.
[2018-06-27] MEDS: NYSTATIN/TRIAMCIN 15 GM CREAM 15 GM TUBE TP SCH (21:06)
[2018-06-27] MEDS: CLONIDINE HCL 0.2 MG TABLET GT PRN (23:30)
[2018-06-28] VITALS: BP 148/68
[2018-06-28] MEDS: IPRATROPIUM NEB FS 0.5 MG/2.5 ML AMPUL.NEB NEB SCH ×4 (01:54→19:49)
[2018-06-28] MEDS: ALBUTEROL FS 2.5 MG/3 ML VIAL.NEB NEB SCH ×4 (01:54→19:49)
[2018-06-28] MEDS: PROSOURCE / PROSTAT (PYXIS) 30 ML UDC GT SCH ×5 (04:57→20:38)
[2018-06-28] MEDS: MAG HYDROX/AL HYDROX/SIMETH 30 ML UDC TP SCH ×4 (04:57→23:10)
[2018-06-28] MEDS: ESOMEPRAZOLE MAG TRIHYDRATE 20 MG CAPSULE.DR GT SCH (05:40)
[2018-06-28] MEDS: BLOOD SUGAR DIAGNOSTIC 1 EACH STRIP IN SCH ×3 (05:40→17:59)
[2018-06-28] MEDS: CLONIDINE HCL 0.2 MG TABLET GT PRN (05:41)
[2018-06-28] MEDS: INSULIN REGULAR, HUMAN 100 UNIT/ML 3 ML VIAL SQ PRN ×3 (05:41→18:01)
[2018-06-28] MEDS: NEPRO 1,000 ML BOTTLE GT PRN (05:42)
[2018-06-28 06:00] VITALS: BP 133/65
[2018-06-28 07:39] VITALS: BP 152/55
[2018-06-28] MEDS: SEVELAMER CARBONATE 0.8 GM POWD.PACK GT SCH ×3 (08:27→17:59)
[2018-06-28] MEDS: POLYVINYL ALCOHOL 15 ML BOTTLE EACHEYE SCH ×2 (08:28→20:38)
[2018-06-28] MEDS: ACIDOPHILUS/BULGARICUS 1 EACH TAB.CHEW GT SCH ×2 (08:28→17:59)
[2018-06-28] MEDS: hydrALAZINE HCL 25 MG TABLET GT SCH ×2 (08:28→17:59)
[2018-06-28] MEDS: METOPROLOL TARTRATE 50 MG TABLET GT SCH ×2 (08:29→21:17)
[2018-06-28] MEDS: VIT B CMPLX 3/FA/VIT C/BIOTIN 1 TAB TABLET GT SCH (08:29)
[2018-06-28] MEDS: METOCLOPRAMIDE HCL 10 MG/10 ML UDC GT SCH ×2 (08:29→20:38)
[2018-06-28] MEDS: ASCORBIC ACID 500 MG TABLET GT SCH (08:31)
[2018-06-28] MEDS: ACETAMINOPHEN 650 MG/20 ML UDC- SA PATIENTS-PAIN ONLY GT SCH ×2 (08:31→20:38)
[2018-06-28] MEDS: HEPARIN SODIUM, PORCINE 5000 UNITS/1 ML VIAL SQ SCH ×2 (08:32→20:39)
[2018-06-28] MEDS: INSULIN GLARGINE, 100 UNIT/ML CARTRIDGE SQ SCH ×2 (08:36→22:18)
[2018-06-28] MEDS: HYDROGEN PEROXIDE 480 ML BOTTLE TP SCH ×2 (09:31→21:16)
[2018-06-28] MEDS: NYSTATIN/TRIAMCIN 15 GM CREAM 15 GM TUBE TP SCH ×2 (09:31→21:16)
[2018-06-28] MEDS: NYSTATIN TOP POWDER 15 GM BOTTLE TP SCH ×6 (09:31→21:17)
[2018-06-28] MEDS: BACI/NEOM/POLY B OINT PKT 1 UDPKT PACKET TP SCH ×2 (09:31→21:17)
[2018-06-28] MEDS: HYDROGEL DRESSING 90 GM TUBE TP SCH ×3 (09:31→20:39)
--- NOTE | 2018-06-28 10:00 | NUR ---
Notified social media developer Qian that pt's boyfriend John Woodall would like to move pt to a facility closer to his home in [place].
[2018-06-28 12:00] VITALS: BP 122/53
[2018-06-28 18:00] VITALS: BP 134/43
[2018-06-28 20:02] VITALS: BP 112/74
[2018-06-29] MEDS: BLOOD SUGAR DIAGNOSTIC 1 EACH STRIP IN SCH ×4 (00:20→17:55)
[2018-06-29 00:22] VITALS: BP 112/76
[2018-06-29] MEDS: INSULIN REGULAR, HUMAN 100 UNIT/ML 3 ML VIAL SQ PRN ×3 (00:22→17:56)
[2018-06-29] MEDS: ALBUTEROL FS 2.5 MG/3 ML VIAL.NEB NEB SCH ×4 (00:57→19:17)
[2018-06-29] MEDS: IPRATROPIUM NEB FS 0.5 MG/2.5 ML AMPUL.NEB NEB SCH ×4 (00:57→19:17)
[2018-06-29] MEDS: MAG HYDROX/AL HYDROX/SIMETH 30 ML UDC TP SCH ×4 (05:53→23:00)
[2018-06-29] MEDS: ESOMEPRAZOLE MAG TRIHYDRATE 20 MG CAPSULE.DR GT SCH (05:53)
[2018-06-29] MEDS: PROSOURCE / PROSTAT (PYXIS) 30 ML UDC GT SCH ×5 (05:53→21:04)
[2018-06-29 06:15] VITALS: BP 116/63
[2018-06-29 07:29] VITALS: BP 153/58
[2018-06-29] MEDS: VIT B CMPLX 3/FA/VIT C/BIOTIN 1 TAB TABLET GT SCH (08:32)
[2018-06-29] MEDS: POLYVINYL ALCOHOL 15 ML BOTTLE EACHEYE SCH ×2 (08:32→21:04)
[2018-06-29] MEDS: METOCLOPRAMIDE HCL 10 MG/10 ML UDC GT SCH ×2 (08:32→21:04)
[2018-06-29] MEDS: ASCORBIC ACID 500 MG TABLET GT SCH (08:32)
[2018-06-29] MEDS: SEVELAMER CARBONATE 0.8 GM POWD.PACK GT SCH ×3 (08:32→17:38)
[2018-06-29] MEDS: ACIDOPHILUS/BULGARICUS 1 EACH TAB.CHEW GT SCH ×2 (08:32→17:37)
[2018-06-29] MEDS: INSULIN GLARGINE, 100 UNIT/ML CARTRIDGE SQ SCH ×2 (08:33→21:18)
[2018-06-29] MEDS: HEPARIN SODIUM, PORCINE 5000 UNITS/1 ML VIAL SQ SCH ×2 (08:33→21:05)
--- NOTE | 2018-06-29 09:00 | NUR ---
Seen and examined by Dr. Morejon, no new order given.
[2018-06-29 15:00] VITALS: BP 117/57
[2018-06-29] MEDS: ACETAMINOPHEN 650 MG/20 ML UDC- SA PATIENTS-PAIN ONLY GT SCH ×2 (15:05→21:04)
[2018-06-29] MEDS: HYDROGEL DRESSING 90 GM TUBE TP SCH ×3 (15:38→21:55)
[2018-06-29] MEDS: HYDROGEN PEROXIDE 480 ML BOTTLE TP SCH ×2 (15:39→21:55)
[2018-06-29] MEDS: BACI/NEOM/POLY B OINT PKT 1 UDPKT PACKET TP SCH ×2 (15:39→21:55)
[2018-06-29] MEDS: NYSTATIN TOP POWDER 15 GM BOTTLE TP SCH ×6 (15:39→21:55)
[2018-06-29] MEDS: NYSTATIN/TRIAMCIN 15 GM CREAM 15 GM TUBE TP SCH ×2 (15:39→21:55)
--- NOTE | 2018-06-29 16:41 | NUR ---
RT NOTE: PATIENT RECEIVED TRACHED ON MECHANICAL VENT. ALARMS VERIFIED AND AUDIBLE. SUCTIONED AND LAVAGED MODERATE-LARGE AMOUNT OF THICK PARKINSON SECRETIONS. VENT PLUGGED INTO RED OUTLET. AMBU BAG AND NEW TRACH AT HOB
[2018-06-29] MEDS: hydrALAZINE HCL 25 MG TABLET GT SCH (17:00)
[2018-06-29 18:48] VITALS: BP 97/45
[2018-06-29 20:12] VITALS: BP 116/41
[2018-06-29] MEDS: METOPROLOL TARTRATE 50 MG TABLET GT SCH (21:30)
[2018-06-30 00:36] VITALS: BP 119/51
[2018-06-30] MEDS: BLOOD SUGAR DIAGNOSTIC 1 EACH STRIP IN SCH ×5 (00:39→23:38)
[2018-06-30] MEDS: INSULIN REGULAR, HUMAN 100 UNIT/ML 3 ML VIAL SQ PRN ×5 (00:40→23:40)
[2018-06-30] MEDS: IPRATROPIUM NEB FS 0.5 MG/2.5 ML AMPUL.NEB NEB SCH ×4 (01:29→19:38)
[2018-06-30] MEDS: ALBUTEROL FS 2.5 MG/3 ML VIAL.NEB NEB SCH ×4 (01:30→19:38)
[2018-06-30] MEDS: MAG HYDROX/AL HYDROX/SIMETH 30 ML UDC TP SCH ×4 (05:16→23:06)
[2018-06-30] MEDS: ESOMEPRAZOLE MAG TRIHYDRATE 20 MG CAPSULE.DR GT SCH (05:16)
[2018-06-30] MEDS: PROSOURCE / PROSTAT (PYXIS) 30 ML UDC GT SCH ×5 (05:16→21:27)
[2018-06-30 06:39] VITALS: BP 133/68
[2018-06-30 07:26] VITALS: BP 120/45
[2018-06-30] MEDS: SEVELAMER CARBONATE 0.8 GM POWD.PACK GT SCH ×3 (08:00→17:37)
--- NOTE | 2018-06-30 08:27 | NUR ---
RT Pt received trach'd and on [facility] vent w charted settings. Vent is plugged into red outlet. Alarms are on and audible. Trach is secure and patent. Machine Shop Inspector done. Hhn tx given and pt sx'd w no adverse reactions. No respiratory distress noted. Will continue to monitor. Addendum: 06/30/18 at 1158 by JOHANA RING RT Amended: Links added.
[2018-06-30] MEDS: hydrALAZINE HCL 25 MG TABLET GT SCH ×2 (09:00→17:00)
[2018-06-30] MEDS: INSULIN GLARGINE, 100 UNIT/ML CARTRIDGE SQ SCH ×2 (09:00→22:33)
[2018-06-30] MEDS: HYDROGEL DRESSING 90 GM TUBE TP SCH ×3 (09:00→21:58)
[2018-06-30] MEDS: NYSTATIN TOP POWDER 15 GM BOTTLE TP SCH ×6 (09:00→21:58)
[2018-06-30] MEDS: HYDROGEN PEROXIDE 480 ML BOTTLE TP SCH ×2 (09:00→21:58)
[2018-06-30] MEDS: BACI/NEOM/POLY B OINT PKT 1 UDPKT PACKET TP SCH ×2 (09:00→21:58)
[2018-06-30] MEDS: NYSTATIN/TRIAMCIN 15 GM CREAM 15 GM TUBE TP SCH ×2 (09:00→21:58)
[2018-06-30] MEDS: METOPROLOL TARTRATE 50 MG TABLET GT SCH ×2 (09:00→21:29)
[2018-06-30] MEDS: POLYVINYL ALCOHOL 15 ML BOTTLE EACHEYE SCH ×2 (09:58→21:27)
[2018-06-30] MEDS: VIT B CMPLX 3/FA/VIT C/BIOTIN 1 TAB TABLET GT SCH (09:58)
[2018-06-30] MEDS: ACIDOPHILUS/BULGARICUS 1 EACH TAB.CHEW GT SCH ×2 (09:58→17:36)
[2018-06-30] MEDS: ASCORBIC ACID 500 MG TABLET GT SCH (09:59)
[2018-06-30] MEDS: METOCLOPRAMIDE HCL 10 MG/10 ML UDC GT SCH ×2 (09:59→21:27)
[2018-06-30] MEDS: ACETAMINOPHEN 650 MG/20 ML UDC- SA PATIENTS-PAIN ONLY GT SCH ×2 (09:59→21:28)
[2018-06-30] MEDS: HEPARIN SODIUM, PORCINE 5000 UNITS/1 ML VIAL SQ SCH ×2 (09:59→21:29)
[2018-06-30] MEDS: NEPRO 1,000 ML BOTTLE GT PRN (17:45)
[2018-06-30 18:34] VITALS: BP 120/45
[2018-06-30 18:36] VITALS: BP 116/47
--- NOTE | 2018-06-30 19:38 | NUR ---
RECEIVED TRACH PT ON MECH VENT ON NOTED SETTINGS PER MD ORDERS. TRACH IS PATENT AND SECURED. CITY MAIL CARRIER DONE. Q6 BREATHING TX GIVEN WITH NO ADVERSE REACTION NOTED. SUCTIONED MODERATE AMOUNT OF PALE YELLOW THICK SECRETIONS. VENT PLUGGED INTO RED OUTLET. ALARMS ON AND AUDIBLE. AMBU BAG @ BEDSIDE. NO RESP DISTRESS AT THIS TIME. WILL CONT TO MONITOR PT.
[2018-06-30 22:57] VITALS: BP_SYST 103; BP_SYST 124; BP_DIAS 48; BP_DIAS 65
[2018-07-01 00:04] VITALS: BP 120/55
[2018-07-01] MEDS: IPRATROPIUM NEB FS 0.5 MG/2.5 ML AMPUL.NEB NEB SCH ×4 (01:17→19:21)
[2018-07-01] MEDS: ALBUTEROL FS 2.5 MG/3 ML VIAL.NEB NEB SCH ×4 (01:17→19:21)
[2018-07-01] MEDS: ESOMEPRAZOLE MAG TRIHYDRATE 20 MG CAPSULE.DR GT SCH (05:08)
[2018-07-01] MEDS: PROSOURCE / PROSTAT (PYXIS) 30 ML UDC GT SCH ×5 (05:08→20:28)
[2018-07-01] MEDS: MAG HYDROX/AL HYDROX/SIMETH 30 ML UDC TP SCH ×4 (05:08→23:42)
[2018-07-01 06:13] VITALS: BP 135/60
[2018-07-01] MEDS: BLOOD SUGAR DIAGNOSTIC 1 EACH STRIP IN SCH ×4 (06:15→23:42)
[2018-07-01] MEDS: INSULIN REGULAR, HUMAN 100 UNIT/ML 3 ML VIAL SQ PRN ×3 (06:17→23:43)
[2018-07-01 07:14] VITALS: BP 152/63
[2018-07-01] MEDS: SEVELAMER CARBONATE 0.8 GM POWD.PACK GT SCH ×3 (08:00→17:54)
[2018-07-01] MEDS: HYDROGEL DRESSING 90 GM TUBE TP SCH ×3 (09:00→20:29)
[2018-07-01] MEDS: HYDROGEN PEROXIDE 480 ML BOTTLE TP SCH ×2 (09:00→20:29)
[2018-07-01] MEDS: NYSTATIN/TRIAMCIN 15 GM CREAM 15 GM TUBE TP SCH ×2 (09:00→20:30)
[2018-07-01] MEDS: POLYVINYL ALCOHOL 15 ML BOTTLE EACHEYE SCH ×2 (09:01→20:28)
[2018-07-01] MEDS: ASCORBIC ACID 500 MG TABLET GT SCH (09:01)
[2018-07-01] MEDS: ACIDOPHILUS/BULGARICUS 1 EACH TAB.CHEW GT SCH ×2 (09:01→17:54)
[2018-07-01] MEDS: METOCLOPRAMIDE HCL 10 MG/10 ML UDC GT SCH ×2 (09:01→20:28)
[2018-07-01] MEDS: ACETAMINOPHEN 650 MG/20 ML UDC- SA PATIENTS-PAIN ONLY GT SCH ×2 (09:01→20:29)
[2018-07-01] MEDS: VIT B CMPLX 3/FA/VIT C/BIOTIN 1 TAB TABLET GT SCH (09:01)
[2018-07-01] MEDS: INSULIN GLARGINE, 100 UNIT/ML CARTRIDGE SQ SCH ×2 (09:02→21:08)
[2018-07-01] MEDS: HEPARIN SODIUM, PORCINE 5000 UNITS/1 ML VIAL SQ SCH ×2 (09:02→20:29)
[2018-07-01] MEDS: hydrALAZINE HCL 25 MG TABLET GT SCH (17:54)
[2018-07-01 18:29] VITALS: BP 146/42
[2018-07-01 20:17] VITALS: BP 120/40
[2018-07-01] MEDS: METOPROLOL TARTRATE 50 MG TABLET GT SCH (21:07)
--- NOTE | 2018-07-01 21:16 | NUR ---
RT NOTE PATIENT WAS RECEIVED ON CONTINUOUS VENT SUPPORT ON NOTED VENT SETTINGS. ELECTRONIC INTEGRATED SYSTEMS MECHANIC DONE. AMBU BAG @ BEDSIDE. Q6 BREATHING TX GIVEN WITH NO ADVERSE REACTION NOTED. SUCTION DONE PRN.TRACH TUBE PATENT AND SECURED. ALARMS ON AND AUDIBLE. NO RESPIRATORY DISTRESS NOTED AT THIS TIME. WILL CONTINUE TO MONITOR PATIENT. Addendum: 07/01/18 at 2116 by FERMÍN DAMON RT Amended: Links added.
[2018-07-02 00:05] VITALS: BP 126/42
[2018-07-02] MEDS: ALBUTEROL FS 2.5 MG/3 ML VIAL.NEB NEB SCH ×4 (01:19→19:05)
[2018-07-02] MEDS: IPRATROPIUM NEB FS 0.5 MG/2.5 ML AMPUL.NEB NEB SCH ×4 (01:19→19:05)
[2018-07-02] MEDS: MAG HYDROX/AL HYDROX/SIMETH 30 ML UDC TP SCH ×4 (05:00→23:20)
[2018-07-02] MEDS: PROSOURCE / PROSTAT (PYXIS) 30 ML UDC GT SCH ×5 (05:00→21:43)
[2018-07-02] MEDS: ESOMEPRAZOLE MAG TRIHYDRATE 20 MG CAPSULE.DR GT SCH (06:07)
[2018-07-02] MEDS: BLOOD SUGAR DIAGNOSTIC 1 EACH STRIP IN SCH ×4 (06:07→23:20)
[2018-07-02] MEDS: INSULIN REGULAR, HUMAN 100 UNIT/ML 3 ML VIAL SQ PRN ×4 (06:08→23:21)
[2018-07-02 06:32] VITALS: BP 158/58
--- NOTE | 2018-07-02 07:23 | NUR ---
Female trach pt received on a mechanical vent. Pt faith is secure. Vent is plugged into a red outlet, alarms are set and audible, and BMV is at bedside. Addendum: 07/02/18 at 0724 by ANNMARIE CARVER RT Amended: Links added.
[2018-07-02] MEDS: SEVELAMER CARBONATE 0.8 GM POWD.PACK GT SCH ×3 (08:00→17:16)
[2018-07-02] MEDS: HYDROGEL DRESSING 90 GM TUBE TP SCH ×3 (09:00→21:49)
[2018-07-02] MEDS: NYSTATIN/TRIAMCIN 15 GM CREAM 15 GM TUBE TP SCH ×2 (09:00→21:52)
[2018-07-02] MEDS: METOPROLOL TARTRATE 50 MG TABLET GT SCH ×2 (09:00→21:53)
[2018-07-02] MEDS: VIT B CMPLX 3/FA/VIT C/BIOTIN 1 TAB TABLET GT SCH (09:00)
[2018-07-02] MEDS: ACIDOPHILUS/BULGARICUS 1 EACH TAB.CHEW GT SCH ×2 (09:00→17:16)
[2018-07-02] MEDS: ACETAMINOPHEN 650 MG/20 ML UDC- SA PATIENTS-PAIN ONLY GT SCH ×2 (09:00→21:48)
[2018-07-02] MEDS: POLYVINYL ALCOHOL 15 ML BOTTLE EACHEYE SCH ×2 (09:00→21:43)
[2018-07-02] MEDS: ASCORBIC ACID 500 MG TABLET GT SCH (09:00)
[2018-07-02] MEDS: HEPARIN SODIUM, PORCINE 5000 UNITS/1 ML VIAL SQ SCH ×2 (09:00→21:49)
[2018-07-02] MEDS: INSULIN GLARGINE, 100 UNIT/ML CARTRIDGE SQ SCH ×2 (09:00→21:54)
[2018-07-02] MEDS: METOCLOPRAMIDE HCL 10 MG/10 ML UDC GT SCH ×2 (09:00→21:47)
[2018-07-02] MEDS: hydrALAZINE HCL 25 MG TABLET GT SCH ×2 (09:00→17:16)
[2018-07-02] MEDS: HYDROGEN PEROXIDE 480 ML BOTTLE TP SCH ×2 (09:00→21:52)
[2018-07-02] MEDS: NYSTATIN TOP POWDER 15 GM BOTTLE TP SCH ×6 (09:35→21:52)
[2018-07-02 14:41] VITALS: BP 106/57
[2018-07-02] MEDS: NEPRO 1,000 ML BOTTLE GT PRN (17:16)
[2018-07-02 18:15] VITALS: BP 106/57
[2018-07-02 18:17] VITALS: BP 150/54
[2018-07-02 19:58] VITALS: BP 143/50
[2018-07-03 00:34] VITALS: BP 139/51
[2018-07-03] MEDS: IPRATROPIUM NEB FS 0.5 MG/2.5 ML AMPUL.NEB NEB SCH ×4 (00:50→19:09)
[2018-07-03] MEDS: ALBUTEROL FS 2.5 MG/3 ML VIAL.NEB NEB SCH ×4 (00:50→19:09)
--- NOTE | 2018-07-03 01:42 | NUR ---
RT NOTE PT RECEIVED ON [facility] VENT ON THE FOLLOWING NOTED SETTINGS. NO RESP DISTRESS OR SOB NOTED. PT SX'D. BREATHING TX GIVEN, NO ADVERSE REACTION NOTED. VENT IS PLUGGED INTO RED OUTLET. ALARMS ARE ON AND AUDIBLE. AMBU BAG AND SPARE TRACH ARE AT BEDSIDE. WILL CONT TO MONITOR PT. Addendum: 07/03/18 at 0144 by SHANI PEÑA RT Amended: Links added.
[2018-07-03] MEDS: ESOMEPRAZOLE MAG TRIHYDRATE 20 MG CAPSULE.DR GT SCH (05:48)
[2018-07-03] MEDS: MAG HYDROX/AL HYDROX/SIMETH 30 ML UDC TP SCH ×4 (05:48→23:50)
[2018-07-03] MEDS: BLOOD SUGAR DIAGNOSTIC 1 EACH STRIP IN SCH ×4 (05:48→23:50)
[2018-07-03] MEDS: PROSOURCE / PROSTAT (PYXIS) 30 ML UDC GT SCH ×5 (05:48→20:34)
[2018-07-03] MEDS: INSULIN REGULAR, HUMAN 100 UNIT/ML 3 ML VIAL SQ PRN ×3 (05:49→23:51)
[2018-07-03 06:08] VITALS: BP 149/58
[2018-07-03 07:42] VITALS: BP 111/71
[2018-07-03] MEDS: SEVELAMER CARBONATE 0.8 GM POWD.PACK GT SCH ×3 (08:45→17:29)
[2018-07-03] MEDS: POLYVINYL ALCOHOL 15 ML BOTTLE EACHEYE SCH ×2 (08:46→20:34)
[2018-07-03] MEDS: ACIDOPHILUS/BULGARICUS 1 EACH TAB.CHEW GT SCH ×2 (08:46→17:21)
[2018-07-03] MEDS: METOCLOPRAMIDE HCL 10 MG/10 ML UDC GT SCH ×2 (08:47→20:34)
[2018-07-03] MEDS: ACETAMINOPHEN 650 MG/20 ML UDC- SA PATIENTS-PAIN ONLY GT SCH ×2 (08:48→20:34)
[2018-07-03] MEDS: ASCORBIC ACID 500 MG TABLET GT SCH (08:48)
[2018-07-03] MEDS: NYSTATIN/TRIAMCIN 15 GM CREAM 15 GM TUBE TP SCH ×2 (09:00→20:35)
[2018-07-03] MEDS: HYDROGEN PEROXIDE 480 ML BOTTLE TP SCH ×2 (09:00→20:35)
[2018-07-03] MEDS: NYSTATIN TOP POWDER 15 GM BOTTLE TP SCH ×6 (09:00→20:35)
[2018-07-03] MEDS: VIT B CMPLX 3/FA/VIT C/BIOTIN 1 TAB TABLET GT SCH (09:00)
[2018-07-03] MEDS: HYDROGEL DRESSING 90 GM TUBE TP SCH ×3 (09:00→20:35)
[2018-07-03] MEDS: INSULIN GLARGINE, 100 UNIT/ML CARTRIDGE SQ SCH ×2 (09:09→21:06)
[2018-07-03] MEDS: HEPARIN SODIUM, PORCINE 5000 UNITS/1 ML VIAL SQ SCH ×2 (09:09→20:35)
[2018-07-03] MEDS: hydrALAZINE HCL 25 MG TABLET GT SCH (17:00)
[2018-07-03 18:00] VITALS: BP 123/51
[2018-07-03 19:50] VITALS: BP 131/54
--- NOTE | 2018-07-03 20:05 | NUR ---
RT NOTE PT RECEIVED ON [facility] VENT ON THE FOLLOWING NOTED SETTINGS. NO RESP DISTRESS OR SOB NOTED AT THIS TIME. PT SX'D. BREATHING TX GIVEN, NO ADVERSE REACTIONS NOTED. VENT IS PLUGGED INTO RED OUTLET. ALARMS ARE ON AND AUDIBLE. AMBU BAG AND SPARE TRACH ARE AT BEDSIDE. WILL CONT TO MONITOR PT. Addendum: 07/03/18 at 2006 by SHANI PEÑA RT Amended: Links added.
[2018-07-03] MEDS: METOPROLOL TARTRATE 50 MG TABLET GT SCH (21:06)
[2018-07-04] VITALS (9 sets, daily range): BP systolic 74–145; BP diastolic 35–74
[2018-07-04] MEDS: IPRATROPIUM NEB FS 0.5 MG/2.5 ML AMPUL.NEB NEB SCH ×4 (01:14→19:30)
[2018-07-04] MEDS: ALBUTEROL FS 2.5 MG/3 ML VIAL.NEB NEB SCH ×4 (01:14→19:30)
[2018-07-04] MEDS: PROSOURCE / PROSTAT (PYXIS) 30 ML UDC GT SCH ×5 (05:23→21:00)
[2018-07-04] MEDS: BLOOD SUGAR DIAGNOSTIC 1 EACH STRIP IN SCH ×4 (05:24→23:08)
[2018-07-04] MEDS: NEPRO 1,000 ML BOTTLE GT PRN ×2 (05:24→23:19)
[2018-07-04] MEDS: ESOMEPRAZOLE MAG TRIHYDRATE 20 MG CAPSULE.DR GT SCH (05:24)
[2018-07-04] MEDS: MAG HYDROX/AL HYDROX/SIMETH 30 ML UDC TP SCH ×4 (05:24→23:08)
[2018-07-04] MEDS: INSULIN REGULAR, HUMAN 100 UNIT/ML 3 ML VIAL SQ PRN ×2 (05:28→12:48)
--- NOTE | 2018-07-04 07:25 | NUR ---
Female trach pt received on a mechanical vent. Pt faith is secure. Vent is plugged into a red outlet, alarms are set and audible, and BMV is at bedside. Addendum: 07/04/18 at 0726 by ANNMARIE CARVER RT Amended: Links added.
[2018-07-04] MEDS: SEVELAMER CARBONATE 0.8 GM POWD.PACK GT SCH ×3 (08:59→17:40)
[2018-07-04] MEDS: METOPROLOL TARTRATE 50 MG TABLET GT SCH ×2 (09:00→22:00)
[2018-07-04] MEDS: NYSTATIN/TRIAMCIN 15 GM CREAM 15 GM TUBE TP SCH ×2 (09:00→21:00)
[2018-07-04] MEDS: HYDROGEL DRESSING 90 GM TUBE TP SCH ×3 (09:00→21:00)
[2018-07-04] MEDS: hydrALAZINE HCL 25 MG TABLET GT SCH ×2 (09:00→17:00)
[2018-07-04] MEDS: POLYVINYL ALCOHOL 15 ML BOTTLE EACHEYE SCH ×2 (09:00→21:00)
[2018-07-04] MEDS: ACIDOPHILUS/BULGARICUS 1 EACH TAB.CHEW GT SCH ×2 (09:00→17:00)
[2018-07-04] MEDS: HYDROGEN PEROXIDE 480 ML BOTTLE TP SCH ×2 (09:00→21:00)
[2018-07-04] MEDS: NYSTATIN TOP POWDER 15 GM BOTTLE TP SCH ×6 (09:00→21:00)
[2018-07-04] MEDS: VIT B CMPLX 3/FA/VIT C/BIOTIN 1 TAB TABLET GT SCH (09:01)
[2018-07-04] MEDS: METOCLOPRAMIDE HCL 10 MG/10 ML UDC GT SCH ×2 (09:01→21:00)
[2018-07-04] MEDS: ACETAMINOPHEN 650 MG/20 ML UDC- SA PATIENTS-PAIN ONLY GT SCH ×2 (09:01→21:00)
[2018-07-04] MEDS: ASCORBIC ACID 500 MG TABLET GT SCH (09:02)
[2018-07-04] MEDS: HEPARIN SODIUM, PORCINE 5000 UNITS/1 ML VIAL SQ SCH ×2 (09:22→21:00)
[2018-07-04] MEDS: INSULIN GLARGINE, 100 UNIT/ML CARTRIDGE SQ SCH ×2 (09:23→22:00)
--- NOTE | 2018-07-04 15:30 | NUR ---
At 0900, resident noted with BP- 86/38, easily aroused, no signs and symptom of resp. distress, temp. 99F. Positioned on Trendelenburg. Rechecked BP- 92/45. At 1000, BP- 89/39. 1200: BP- 74/35. Referred to Dr. Sung and ordered to transfer to ER, doesn't want to order IV hydration. 1230: BP- 107/57, HR 102. 1300: BP- 104/57, HR- 101. Dr. Sanders said to hold transfer to ER and continue to monitor BP. 1430: BP- 85/38, HR- 100. 1500: 95/45, HR- 100. 1530- 89/38, HR- 102, awake, O2 sat. 99%. Transferred to ER. RN yard labor supervisor informed. Left message to John Woodall.
[2018-07-04] MEDS ORDERED: MAG30ORA GT (16:14)
[2018-07-04] MEDS ORDERED: SEVE0.8P3 GT (16:14)
[2018-07-04] MEDS ORDERED: GEL100GE TD (16:14)
[2018-07-04] MEDS ORDERED: ACID1TAB12 GT (16:14)
--- NOTE | 2018-07-04 22:00 | NUR ---
RN NOTES Received report from ER nurse. Received pt in stable condition. B/P 159/47, HR 90, RR 12, T 98.1, O2sat 99%. Will continue to monitor pt.
[2018-07-05] VITALS (10 sets, daily range): BP systolic 103–159; BP diastolic 36–68
[2018-07-05] MEDS: ALBUTEROL FS 2.5 MG/3 ML VIAL.NEB NEB SCH ×4 (01:28→19:35)
[2018-07-05] MEDS: IPRATROPIUM NEB FS 0.5 MG/2.5 ML AMPUL.NEB NEB SCH ×4 (01:28→19:34)
[2018-07-05] MEDS: PROSOURCE / PROSTAT (PYXIS) 30 ML UDC GT SCH ×5 (04:01→21:20)
[2018-07-05] MEDS: MAG HYDROX/AL HYDROX/SIMETH 30 ML UDC TP SCH ×4 (04:02→23:41)
[2018-07-05] MEDS: ESOMEPRAZOLE MAG TRIHYDRATE 20 MG CAPSULE.DR GT SCH (05:02)
[2018-07-05] MEDS: BLOOD SUGAR DIAGNOSTIC 1 EACH STRIP IN SCH ×3 (05:29→17:08)
[2018-07-05] MEDS: INSULIN REGULAR, HUMAN 100 UNIT/ML 3 ML VIAL SQ PRN ×3 (05:44→17:11)
[2018-07-05] MEDS: SEVELAMER CARBONATE 0.8 GM POWD.PACK GT SCH ×3 (08:00→17:08)
[2018-07-05] MEDS: hydrALAZINE HCL 25 MG TABLET GT SCH ×3 (09:00→16:48)
[2018-07-05] MEDS: POLYVINYL ALCOHOL 15 ML BOTTLE EACHEYE SCH ×2 (09:08→21:20)
[2018-07-05] MEDS: METOPROLOL TARTRATE 50 MG TABLET GT SCH ×2 (09:09→21:54)
[2018-07-05] MEDS: METOCLOPRAMIDE HCL 10 MG/10 ML UDC GT SCH ×2 (09:09→21:20)
[2018-07-05] MEDS: VIT B CMPLX 3/FA/VIT C/BIOTIN 1 TAB TABLET GT SCH (09:09)
[2018-07-05] MEDS: ACIDOPHILUS/BULGARICUS 1 EACH TAB.CHEW GT SCH ×2 (09:09→16:48)
[2018-07-05] MEDS: ASCORBIC ACID 500 MG TABLET GT SCH (09:10)
[2018-07-05] MEDS: HEPARIN SODIUM, PORCINE 5000 UNITS/1 ML VIAL SQ SCH ×2 (09:10→21:22)
[2018-07-05] MEDS: ACETAMINOPHEN 650 MG/20 ML UDC- SA PATIENTS-PAIN ONLY GT SCH ×2 (09:10→21:20)
[2018-07-05] MEDS: INSULIN GLARGINE, 100 UNIT/ML CARTRIDGE SQ SCH ×2 (09:11→22:33)
[2018-07-05] MEDS: NYSTATIN/TRIAMCIN 15 GM CREAM 15 GM TUBE TP SCH ×2 (10:10→21:53)
[2018-07-05] MEDS: NYSTATIN TOP POWDER 15 GM BOTTLE TP SCH ×6 (10:10→21:53)
[2018-07-05] MEDS: HYDROGEN PEROXIDE 480 ML BOTTLE TP SCH ×2 (10:10→21:53)
[2018-07-05] MEDS: HYDROGEL DRESSING 90 GM TUBE TP SCH ×3 (10:10→21:53)
--- NOTE | 2018-07-05 10:59 | NUR ---
Notified Dr Castro that pt has a temp of 101 F. He ordered CXR and blood culture x 2. He said he will have THOMAS Ramsay see the pt. Addendum: 07/05/18 at 1117 by GEORGE CLEARY RN Notified pt's jose Garcia
--- NOTE | 2018-07-05 12:00 | NUR ---
THOMAS Ramsay ordered to give Vancomycin IV pharmacy to dose and Zosyn 2.25 gm IV q 8 hours x 5 days per protocol.
[2018-07-05] MEDS ORDERED: PIPERACILLIN /TAZOBACTAM 2.25 G in IV D5W 50 ML IV SCH (13:00)
--- NOTE | 2018-07-05 13:16 | NUR ---
Notified THOMAS Ramsay that Zosyn is not covered by pt's insurance. She said to ask if Cefepime is covered.
--- NOTE | 2018-07-05 13:23 | NUR ---
Notified THOMAS Ramsay that Cefepime is also not covered by pt's insurance.
[2018-07-05] MEDS ORDERED: VANCOMYCIN HCL 0.75 GM in IV D5W 250 ML IV ONE (14:00)
--- NOTE | 2018-07-05 14:00 | NUR ---
Informed EXTRUDING MACHINE OPERATOR Sobia that blood culture x 2 were done yesterday and there is an order to do blood cultures again today. She said there is no need to do blood cultures again today. She also said to keep pt on Zosyn instead of Cefepime.
[2018-07-05 14:34] LABS: BASOPHILS % (AUTO) 0.2 % (0.0-2.0); EOSINOPHILS % (AUTO) 0.7 % (0.0-6.0); HEMATOCRIT 30 % (33-45); HEMOGLOBIN 9.7 g/dL (11.5-14.8); LYMPHOCYTES # (AUTO) 0.9 /CMM (0.8-4.8); LYMPHOCYTES % (AUTO) 7.6 % (20.0-44.0); MEAN CORPUSCULAR HGB CONC 32 g/dl (31.0-36.0); MEAN CORPUSCULAR VOLUME 89 fL (82-100); MONOCYTES # (AUTO) 0.9 /CMM (0.1-1.30); MONOCYTES % (AUTO) 7.6 % (2.0-12.0); NEUTROPHILS # (AUTO) 9.9 /CMM (1.8-8.9); NEUTROPHILS % (AUTO) 83.9 % (43.0-81.0); PLATELET COUNT (AUTO) 156 /CMM (150-450); RED BLOOD CELL COUNT(AUTO) 3.41 MIL/uL (4.0-5.2); WHITE BLOOD COUNT (AUTO) 11.8 K/uL (4.3-11.0)
[2018-07-05] MEDS: PIPERACILLIN /TAZOBACTAM 2.25 G in IV D5W 50 ML IV SCH ×2 (16:00→21:00)
--- NOTE | 2018-07-05 18:01 | NUR ---
Received pt this morning with peripheral IV line on the left upper arm, gauge 18. IV line patent and no redness or signs of infiltration noted.
--- NOTE | 2018-07-05 19:13 | NUR ---
Temp 99.4 F. Cooling measures (ice pack, removed blanket) have been provided and Tylenol was administered today for T 101 F.
[2018-07-06 00:05] VITALS: BP 99/54
[2018-07-06] MEDS: BLOOD SUGAR DIAGNOSTIC 1 EACH STRIP IN SCH ×4 (00:59→17:05)
[2018-07-06] MEDS: INSULIN REGULAR, HUMAN 100 UNIT/ML 3 ML VIAL SQ PRN ×3 (01:11→17:06)
[2018-07-06] MEDS: IPRATROPIUM NEB FS 0.5 MG/2.5 ML AMPUL.NEB NEB SCH ×4 (01:19→20:07)
[2018-07-06] MEDS: ALBUTEROL FS 2.5 MG/3 ML VIAL.NEB NEB SCH ×4 (01:19→20:07)
[2018-07-06] MEDS: PROSOURCE / PROSTAT (PYXIS) 30 ML UDC GT SCH ×5 (05:26→20:50)
[2018-07-06] MEDS: MAG HYDROX/AL HYDROX/SIMETH 30 ML UDC TP SCH ×4 (05:26→22:19)
[2018-07-06] MEDS: ESOMEPRAZOLE MAG TRIHYDRATE 20 MG CAPSULE.DR GT SCH (05:26)
[2018-07-06] MEDS: PIPERACILLIN /TAZOBACTAM 2.25 G in IV D5W 50 ML IV SCH ×3 (05:36→21:37)
--- NOTE | 2018-07-06 06:20 | NUR ---
temp 99.8. cooling measures rendered. no s/s of discomfort. no respiratory distress noted. all comfort measures rendered. will continue to monitor.
[2018-07-06 06:24] VITALS: BP 135/64
[2018-07-06 07:35] VITALS: BP 142/51
[2018-07-06] MEDS: SEVELAMER CARBONATE 0.8 GM POWD.PACK GT SCH ×3 (08:00→17:05)
--- NOTE | 2018-07-06 09:30 | NUR ---
Seen and examined by Dr. Morejon, no new order given.
[2018-07-06] MEDS: INSULIN GLARGINE, 100 UNIT/ML CARTRIDGE SQ SCH ×2 (09:36→22:20)
[2018-07-06] MEDS: ACIDOPHILUS/BULGARICUS 1 EACH TAB.CHEW GT SCH ×2 (09:37→17:04)
[2018-07-06] MEDS: ASCORBIC ACID 500 MG TABLET GT SCH (09:37)
[2018-07-06] MEDS: METOCLOPRAMIDE HCL 10 MG/10 ML UDC GT SCH ×2 (09:37→20:50)
[2018-07-06] MEDS: POLYVINYL ALCOHOL 15 ML BOTTLE EACHEYE SCH ×2 (09:37→20:49)
[2018-07-06] MEDS: HEPARIN SODIUM, PORCINE 5000 UNITS/1 ML VIAL SQ SCH ×2 (09:37→20:51)
[2018-07-06] MEDS: ACETAMINOPHEN 650 MG/20 ML UDC- SA PATIENTS-PAIN ONLY GT SCH ×2 (09:37→20:50)
[2018-07-06] MEDS: VIT B CMPLX 3/FA/VIT C/BIOTIN 1 TAB TABLET GT SCH (09:37)
[2018-07-06] MEDS: NYSTATIN/TRIAMCIN 15 GM CREAM 15 GM TUBE TP SCH ×2 (10:40→21:24)
[2018-07-06] MEDS: HYDROGEL DRESSING 90 GM TUBE TP SCH ×2 (10:40→21:24)
[2018-07-06] MEDS: HYDROGEN PEROXIDE 480 ML BOTTLE TP SCH ×2 (10:40→21:24)
[2018-07-06] MEDS: NYSTATIN TOP POWDER 15 GM BOTTLE TP SCH ×6 (10:40→21:24)
[2018-07-06 15:00] VITALS: BP 121/67
--- NOTE | 2018-07-06 15:00 | NUR ---
Resident came back from dialysis. Due Zosyn IV given. Noted around the GT site skin redness and hard on palpation. Spoke with Dr. Wall he said he will call GI to evaluate resident. John Woodall informed of change of condition.
[2018-07-06] MEDS: hydrALAZINE HCL 25 MG TABLET GT SCH (17:04)
[2018-07-06] MEDS: NEPRO 1,000 ML BOTTLE GT PRN (17:53)
[2018-07-06 18:02] VITALS: BP 144/56
[2018-07-06 20:27] VITALS: BP 145/65
[2018-07-06] MEDS: VANCOMYCIN POST DIALYSIS 500MG IV PRN ×2 (21:37)
[2018-07-06] MEDS: METOPROLOL TARTRATE 50 MG TABLET GT SCH (22:00)
[2018-07-07] VITALS (7 sets, daily range): BP systolic 90–133; BP diastolic 53–74
[2018-07-07] MEDS: BLOOD SUGAR DIAGNOSTIC 1 EACH STRIP IN SCH ×5 (00:50→23:27)
[2018-07-07] MEDS: INSULIN REGULAR, HUMAN 100 UNIT/ML 3 ML VIAL SQ PRN ×5 (00:52→23:28)
[2018-07-07] MEDS: IPRATROPIUM NEB FS 0.5 MG/2.5 ML AMPUL.NEB NEB SCH ×4 (01:36→19:21)
[2018-07-07] MEDS: ALBUTEROL FS 2.5 MG/3 ML VIAL.NEB NEB SCH ×4 (01:36→19:21)
[2018-07-07] MEDS: PIPERACILLIN /TAZOBACTAM 2.25 G in IV D5W 50 ML IV SCH ×3 (05:00→21:04)
[2018-07-07] MEDS: MAG HYDROX/AL HYDROX/SIMETH 30 ML UDC TP SCH ×4 (05:27→23:27)
[2018-07-07] MEDS: PROSOURCE / PROSTAT (PYXIS) 30 ML UDC GT SCH ×5 (05:27→21:06)
[2018-07-07] MEDS: ESOMEPRAZOLE MAG TRIHYDRATE 20 MG CAPSULE.DR GT SCH (05:27)
[2018-07-07] MEDS: SEVELAMER CARBONATE 0.8 GM POWD.PACK GT SCH ×3 (08:00→17:56)
[2018-07-07] MEDS: ACETAMINOPHEN 650 MG/20 ML UDC- SA PATIENTS-PAIN ONLY GT SCH ×2 (09:00→21:06)
[2018-07-07] MEDS: ACIDOPHILUS/BULGARICUS 1 EACH TAB.CHEW GT SCH ×2 (09:00→17:56)
[2018-07-07] MEDS: HYDROGEN PEROXIDE 480 ML BOTTLE TP SCH ×2 (09:00→21:40)
[2018-07-07] MEDS: hydrALAZINE HCL 25 MG TABLET GT SCH ×2 (09:00→17:00)
[2018-07-07] MEDS: VIT B CMPLX 3/FA/VIT C/BIOTIN 1 TAB TABLET GT SCH (09:00)
[2018-07-07] MEDS: METOPROLOL TARTRATE 50 MG TABLET GT SCH ×2 (09:00→21:08)
[2018-07-07] MEDS: POLYVINYL ALCOHOL 15 ML BOTTLE EACHEYE SCH ×2 (09:00→21:06)
[2018-07-07] MEDS: METOCLOPRAMIDE HCL 10 MG/10 ML UDC GT SCH ×2 (09:00→21:06)
[2018-07-07] MEDS: HYDROGEL DRESSING 90 GM TUBE TP SCH ×3 (09:00→21:39)
[2018-07-07] MEDS: NYSTATIN/TRIAMCIN 15 GM CREAM 15 GM TUBE TP SCH ×2 (09:00→21:40)
[2018-07-07] MEDS: ASCORBIC ACID 500 MG TABLET GT SCH (09:00)
[2018-07-07] MEDS: HEPARIN SODIUM, PORCINE 5000 UNITS/1 ML VIAL SQ SCH ×2 (09:00→21:07)
[2018-07-07] MEDS: NYSTATIN TOP POWDER 15 GM BOTTLE TP SCH ×6 (09:00→21:40)
[2018-07-07] MEDS: INSULIN GLARGINE, 100 UNIT/ML CARTRIDGE SQ SCH ×2 (09:00→21:58)
--- NOTE | 2018-07-07 19:21 | NUR ---
RT NOTE: RECEIVED TRACH PT ON [facility] VENT ON NOTED SETTINGS PER MD ORDERS. TRACH IS PATENT AND SECURED. SUPERVISOR ELECTRIC DONE. Q6 BREATHING TX GIVEN WITH NO ADVERSE REACTION NOTED. SX DONE PRN. VENT PLUGGED INTO RED OUTLET. ALARMS ON AND AUDIBLE. NACHO BAG @ BEDSIDE. NO RESP DISTRESS AT THIS TIME. WILL CONT TO MONITOR PT. Addendum: 07/08/18 at 0227 by FREDDY PALMA RT Amended: Links added.
[2018-07-08 00:15] VITALS: BP 92/52
[2018-07-08] MEDS: ALBUTEROL FS 2.5 MG/3 ML VIAL.NEB NEB SCH ×4 (01:26→20:05)
[2018-07-08] MEDS: IPRATROPIUM NEB FS 0.5 MG/2.5 ML AMPUL.NEB NEB SCH ×4 (01:26→20:05)
[2018-07-08] MEDS: PIPERACILLIN /TAZOBACTAM 2.25 G in IV D5W 50 ML IV SCH ×3 (05:01→20:58)
[2018-07-08] MEDS: PROSOURCE / PROSTAT (PYXIS) 30 ML UDC GT SCH ×5 (05:23→21:40)
[2018-07-08] MEDS: ESOMEPRAZOLE MAG TRIHYDRATE 20 MG CAPSULE.DR GT SCH (05:23)
[2018-07-08] MEDS: MAG HYDROX/AL HYDROX/SIMETH 30 ML UDC TP SCH ×4 (05:23→23:00)
[2018-07-08] MEDS: BLOOD SUGAR DIAGNOSTIC 1 EACH STRIP IN SCH ×3 (05:59→17:16)
[2018-07-08] MEDS: INSULIN REGULAR, HUMAN 100 UNIT/ML 3 ML VIAL SQ PRN (06:00)
[2018-07-08 06:12] VITALS: BP 128/61
--- NOTE | 2018-07-08 06:40 | NUR ---
Pt still with GT site redness,warm and hard to touch,small drainage noted @ Gt stoma.Temp 98.6 axillary.Will continue to monitor and will endorse to follow up with the doctor regarding GI consult.
[2018-07-08 07:42] VITALS: BP 141/54
[2018-07-08] MEDS: SEVELAMER CARBONATE 0.8 GM POWD.PACK GT SCH ×3 (08:00→17:16)
[2018-07-08] MEDS: NYSTATIN TOP POWDER 15 GM BOTTLE TP SCH ×6 (09:00→21:41)
[2018-07-08] MEDS: NYSTATIN/TRIAMCIN 15 GM CREAM 15 GM TUBE TP SCH ×2 (09:00→21:41)
[2018-07-08] MEDS: HYDROGEL DRESSING 90 GM TUBE TP SCH ×3 (09:00→21:40)
[2018-07-08] MEDS: HYDROGEN PEROXIDE 480 ML BOTTLE TP SCH ×2 (09:00→21:40)
[2018-07-08] MEDS: HEPARIN SODIUM, PORCINE 5000 UNITS/1 ML VIAL SQ SCH ×2 (09:25→21:40)
[2018-07-08] MEDS: ASCORBIC ACID 500 MG TABLET GT SCH (09:25)
[2018-07-08] MEDS: METOCLOPRAMIDE HCL 10 MG/10 ML UDC GT SCH ×2 (09:25→21:40)
[2018-07-08] MEDS: POLYVINYL ALCOHOL 15 ML BOTTLE EACHEYE SCH ×2 (09:25→21:40)
[2018-07-08] MEDS: ACETAMINOPHEN 650 MG/20 ML UDC- SA PATIENTS-PAIN ONLY GT SCH ×2 (09:25→21:40)
[2018-07-08] MEDS: ACIDOPHILUS/BULGARICUS 1 EACH TAB.CHEW GT SCH ×2 (09:25→17:16)
[2018-07-08] MEDS: VIT B CMPLX 3/FA/VIT C/BIOTIN 1 TAB TABLET GT SCH (09:25)
[2018-07-08] MEDS: INSULIN GLARGINE, 100 UNIT/ML CARTRIDGE SQ SCH ×2 (09:26→21:42)
--- NOTE | 2018-07-08 10:00 | NUR ---
Relayed random vancomycin level of 14 with Kavon [facility] IV pharmacist. Per Kavon, okay to give Vancomycin 500mg IV after HD today.
--- NOTE | 2018-07-08 10:51 | NUR ---
Called Dr. Castro's office, left message to request GI consult for patient. Awaiting call back.
--- NOTE | 2018-07-08 11:04 | NUR ---
Spoke to Dr. Castro to follow up on GI consult. Per Dr. Castro, they already called Dr. Espinoza to see patient.
--- NOTE | 2018-07-08 11:15 | NUR ---
Dr Wall came to the unit to see patient. Notified MD that patient currently having dialysis at [facility]. Per , he will see patient at dialysis center. Updated Dr. Wall on GT site- still noted with erythema and hardness around GT site. Pt afebrile. Per , unable to reach Dr. Real for GI follow up so he will send message to Dr. Batista to see patient.
--- NOTE | 2018-07-08 15:35 | NUR ---
Pt returned from dialysis unit. Pt awake, in no distress. Obtained order for extra dialysis treatment tomorrow x 2 hrs for fluid overload. Chairtime is at 1:30pm. Called [facility], spoke with Erna and confirmed transportation for tomorrow with picked edge sewing machine operator time of 12:30pm.
[2018-07-08] MEDS: hydrALAZINE HCL 25 MG TABLET GT SCH (17:16)
[2018-07-08] MEDS: NEPRO 1,000 ML BOTTLE GT PRN (17:28)
[2018-07-08 17:53] VITALS: BP 141/54
[2018-07-08] MEDS: VANCOMYCIN POST DIALYSIS 500MG IV PRN ×2 (18:38)
[2018-07-08 18:40] VITALS: BP 143/51
--- NOTE | 2018-07-08 19:30 | NUR ---
Seen by THOMAS MOSQUEDA.
--- NOTE | 2018-07-08 20:06 | NUR ---
RT Pt received trach'd and on [facility] vent w charted settings. Vent is plugged into red outlet. Alarms are on and audible. Trach is secure and patent. Radar Operator done. Hhn tx given and pt sx'd w no adverse reactions. No respiratory distress noted. Will continue to monitor. Addendum: 07/08/18 at 2106 by JOHANA RING RT Amended: Links added.
[2018-07-08 20:19] VITALS: BP 105/40
[2018-07-08] MEDS: METOPROLOL TARTRATE 50 MG TABLET GT SCH (22:00)
[2018-07-09] VITALS: BP 116/74
[2018-07-09] MEDS: BLOOD SUGAR DIAGNOSTIC 1 EACH STRIP IN SCH ×4 (00:28→18:21)
[2018-07-09] MEDS: INSULIN REGULAR, HUMAN 100 UNIT/ML 3 ML VIAL SQ PRN ×3 (00:29→11:31)
[2018-07-09] MEDS: CLONIDINE HCL 0.2 MG TABLET GT PRN ×2 (00:31→06:10)
[2018-07-09] MEDS: ALBUTEROL FS 2.5 MG/3 ML VIAL.NEB NEB SCH ×4 (01:48→19:31)
[2018-07-09] MEDS: IPRATROPIUM NEB FS 0.5 MG/2.5 ML AMPUL.NEB NEB SCH ×4 (01:48→19:31)
[2018-07-09] MEDS: PROSOURCE / PROSTAT (PYXIS) 30 ML UDC GT SCH ×5 (05:28→21:25)
[2018-07-09] MEDS: MAG HYDROX/AL HYDROX/SIMETH 30 ML UDC TP SCH ×4 (05:28→23:10)
[2018-07-09] MEDS: ESOMEPRAZOLE MAG TRIHYDRATE 20 MG CAPSULE.DR GT SCH (05:28)
[2018-07-09] MEDS: PIPERACILLIN /TAZOBACTAM 2.25 G in IV D5W 50 ML IV SCH ×3 (05:40→21:01)
--- NOTE | 2018-07-09 05:44 | NUR ---
Patient GT site with redness and serosanguineous drainage noted coming out from GT stoma.Patient GT came out with balloon intact,re inserted without resistant.Will continue to monitor and will endorse to oncoming nurse.
[2018-07-09 06:00] VITALS: BP 154/70
[2018-07-09 07:39] VITALS: BP 146/58
[2018-07-09] MEDS: SEVELAMER CARBONATE 0.8 GM POWD.PACK GT SCH ×3 (08:00→18:21)
--- NOTE | 2018-07-09 08:00 | NUR ---
Seen and examined by PRECINCT POLICE LIEUTENANT Hellen Leija, assessed GT site, red and bulging, appears GT balloon protruding. Noted with small to moderate amount of formula leaking around stoma site. New order given to hold GT feeding, abdominal KUB to verify GT placement and start patient with IVF of D%1/2 NS at 50 cc/hr for hydration. Order noted and carried out.
[2018-07-09] MEDS ORDERED: DIATR MEGLU/DIATRIZOATE SODIUM 30 ML BOTTLE (GASTROGRAPHIN) PO ONE (08:14)
[2018-07-09] MEDS: ACETAMINOPHEN 650 MG/20 ML UDC- SA PATIENTS-PAIN ONLY GT SCH ×2 (09:00→21:26)
[2018-07-09] MEDS: HEPARIN SODIUM, PORCINE 5000 UNITS/1 ML VIAL SQ SCH ×2 (09:00→21:27)
[2018-07-09] MEDS: NYSTATIN/TRIAMCIN 15 GM CREAM 15 GM TUBE TP SCH ×2 (09:00→21:55)
[2018-07-09] MEDS: HYDROGEL DRESSING 90 GM TUBE TP SCH ×3 (09:00→21:55)
[2018-07-09] MEDS: HYDROGEN PEROXIDE 480 ML BOTTLE TP SCH ×2 (09:00→21:55)
[2018-07-09] MEDS: METOPROLOL TARTRATE 50 MG TABLET GT SCH ×2 (09:00→21:28)
[2018-07-09] MEDS: ASCORBIC ACID 500 MG TABLET GT SCH (09:00)
[2018-07-09] MEDS: VIT B CMPLX 3/FA/VIT C/BIOTIN 1 TAB TABLET GT SCH (09:00)
[2018-07-09] MEDS: INSULIN GLARGINE, 100 UNIT/ML CARTRIDGE SQ SCH ×2 (09:00→22:39)
[2018-07-09] MEDS: ACIDOPHILUS/BULGARICUS 1 EACH TAB.CHEW GT SCH ×2 (09:00→17:00)
[2018-07-09] MEDS: POLYVINYL ALCOHOL 15 ML BOTTLE EACHEYE SCH ×2 (09:00→21:25)
[2018-07-09] MEDS: hydrALAZINE HCL 25 MG TABLET GT SCH ×2 (09:00→17:00)
[2018-07-09] MEDS: METOCLOPRAMIDE HCL 10 MG/10 ML UDC GT SCH ×2 (09:00→21:26)
[2018-07-09] MEDS: NYSTATIN TOP POWDER 15 GM BOTTLE TP SCH ×6 (09:00→21:55)
--- NOTE | 2018-07-09 09:09 | NUR ---
pt rec'd trached on [facility] vent on ac mode. no resp distress or sob noted. trach patent and secured. sx'd for thick mod amt of pale yellow secretions. alarms are set and audible. vent plugged into red outlet. ambu bag and back up trach bedside. will continue to monitor. Addendum: 07/09/18 at 0915 by LOUISA CRUZ RT Amended: Links added.
[2018-07-09] MEDS ORDERED: IV D5/0.45 NACL 1,000 ML IV PRN (09:30)
--- NOTE | 2018-07-09 10:10 | NUR ---
Notified Debby Redman NP of GI consult due to redness in the GT site, she said she will see patient later on.
--- NOTE | 2018-07-09 12:30 | NUR ---
Abdominal KUB result shows GT in place, reported to Hellen Leija, with order to resume feeding after patient return back from dialysis today.
[2018-07-09 18:33] VITALS: BP 146/58
[2018-07-09 18:34] VITALS: BP 150/49
[2018-07-09 20:19] VITALS: BP 108/72
[2018-07-10] MEDS: BLOOD SUGAR DIAGNOSTIC 1 EACH STRIP IN SCH ×4 (00:15→18:04)
[2018-07-10] MEDS: INSULIN REGULAR, HUMAN 100 UNIT/ML 3 ML VIAL SQ PRN ×4 (00:17→18:04)
[2018-07-10 00:18] VITALS: BP 105/64
[2018-07-10] MEDS: IPRATROPIUM NEB FS 0.5 MG/2.5 ML AMPUL.NEB NEB SCH ×4 (01:29→19:37)
[2018-07-10] MEDS: ALBUTEROL FS 2.5 MG/3 ML VIAL.NEB NEB SCH ×4 (01:29→19:37)
[2018-07-10] MEDS: PROSOURCE / PROSTAT (PYXIS) 30 ML UDC GT SCH ×5 (05:07→21:12)
[2018-07-10] MEDS: ESOMEPRAZOLE MAG TRIHYDRATE 20 MG CAPSULE.DR GT SCH (05:08)
[2018-07-10] MEDS: MAG HYDROX/AL HYDROX/SIMETH 30 ML UDC TP SCH ×4 (05:08→23:02)
[2018-07-10] MEDS: PIPERACILLIN /TAZOBACTAM 2.25 G in IV D5W 50 ML IV SCH ×3 (05:27→21:00)
[2018-07-10 06:05] VITALS: BP 135/60
--- NOTE | 2018-07-10 06:43 | NUR ---
Patient remain stable during the night,GT feeding tolerated well.Noted with drainage from Gt stoma site and redness.Will continue to monitor and will endorse to follow with GI.
[2018-07-10 07:50] VITALS: BP 113/53
[2018-07-10] MEDS: SEVELAMER CARBONATE 0.8 GM POWD.PACK GT SCH ×3 (08:49→17:28)
[2018-07-10] MEDS: POLYVINYL ALCOHOL 15 ML BOTTLE EACHEYE SCH ×2 (08:50→21:12)
[2018-07-10] MEDS: ACIDOPHILUS/BULGARICUS 1 EACH TAB.CHEW GT SCH ×2 (08:50→17:28)
[2018-07-10] MEDS: METOCLOPRAMIDE HCL 10 MG/10 ML UDC GT SCH ×2 (08:51→21:12)
[2018-07-10] MEDS: ACETAMINOPHEN 650 MG/20 ML UDC- SA PATIENTS-PAIN ONLY GT SCH ×2 (08:51→21:12)
[2018-07-10] MEDS: ASCORBIC ACID 500 MG TABLET GT SCH (08:52)
[2018-07-10] MEDS: HYDROGEN PEROXIDE 480 ML BOTTLE TP SCH ×2 (09:00→21:49)
[2018-07-10] MEDS: HYDROGEL DRESSING 90 GM TUBE TP SCH ×3 (09:00→21:49)
[2018-07-10] MEDS: NYSTATIN/TRIAMCIN 15 GM CREAM 15 GM TUBE TP SCH ×2 (09:00→21:49)
[2018-07-10] MEDS: NYSTATIN TOP POWDER 15 GM BOTTLE TP SCH ×6 (09:00→21:49)
[2018-07-10] MEDS: INSULIN GLARGINE, 100 UNIT/ML CARTRIDGE SQ SCH ×2 (09:18→22:56)
[2018-07-10] MEDS: HEPARIN SODIUM, PORCINE 5000 UNITS/1 ML VIAL SQ SCH ×2 (09:18→21:16)
[2018-07-10] MEDS: VIT B CMPLX 3/FA/VIT C/BIOTIN 1 TAB TABLET GT SCH (09:19)
--- NOTE | 2018-07-10 12:05 | NUR ---
Called and clarified order with THOMAS Ramsay regarding vanco and zosyn IV stop date. Made her aware that patient seen by Dr. Wall, per MD patient must have cellulitis to GT site. Patient has no fever at this time. she ordered to continue vanco IV after dialysis x 5 days and zosyn IV x 5 days for cellulitis of GT site. Vanco pharmacy to dose. Patient for GI consult, THOMAS Redman aware.
--- NOTE | 2018-07-10 15:00 | NUR ---
[facility] continue vanco 500 mg IVPB after dialysis (, and ), get random trough on thursday07/13/18 before dialysis. Noted and carried out.
[2018-07-10 15:30] VITALS: BP 135/55
[2018-07-10] MEDS: hydrALAZINE HCL 25 MG TABLET GT SCH (17:00)
[2018-07-10 18:00] VITALS: BP 136/60
[2018-07-10 20:50] VITALS: BP 131/44
[2018-07-10] MEDS: METOPROLOL TARTRATE 50 MG TABLET GT SCH (21:16)
[2018-07-10] MEDS: POVIDONE-IODINE OINT 28.4 GM TUBE TP SCH (21:49)
[2018-07-10] MEDS: Z GUARD REMEDY 4 OZ OINT TP SCH (21:50)
[2018-07-10] MEDS: VANCOMYCIN POST DIALYSIS 500MG IV PRN ×2 (22:00)
--- NOTE | 2018-07-10 23:11 | NUR ---
PATIENT RECEIVED ON MECHANICAL VENTILATION SUPPORT WITH SETTINGS OF AC 12, 500 VT, 30%, +5. SUCTIONED WITH LAVAGE FOR MINIMAL, THIN, WHITE SECRETIONS. GIVEN IN-LINE TREATMENTS WITH NO ADVERSE REACTIONS. AMBU BAG AT BEDSIDE. VENT ALARMS AUDIBLE AND VISIBLE. VENT PLUGGED INTO RED OUTLET. MALIK VERMA CHANGED. Addendum: 07/10/18 at 2313 by JAMARI PATEL RT Amended: Links added.
[2018-07-11] MEDS: BLOOD SUGAR DIAGNOSTIC 1 EACH STRIP IN SCH ×4 (00:26→18:02)
[2018-07-11] MEDS: INSULIN REGULAR, HUMAN 100 UNIT/ML 3 ML VIAL SQ PRN ×4 (00:27→18:05)
[2018-07-11 00:28] VITALS: BP 114/81
[2018-07-11] MEDS: ALBUTEROL FS 2.5 MG/3 ML VIAL.NEB NEB SCH ×4 (01:59→19:25)
[2018-07-11] MEDS: IPRATROPIUM NEB FS 0.5 MG/2.5 ML AMPUL.NEB NEB SCH ×4 (01:59→19:25)
[2018-07-11] MEDS: PIPERACILLIN /TAZOBACTAM 2.25 G in IV D5W 50 ML IV SCH ×3 (05:00→21:52)
[2018-07-11] MEDS: MAG HYDROX/AL HYDROX/SIMETH 30 ML UDC TP SCH ×4 (05:21→21:37)
[2018-07-11] MEDS: PROSOURCE / PROSTAT (PYXIS) 30 ML UDC GT SCH ×5 (05:21→20:02)
[2018-07-11] MEDS: ESOMEPRAZOLE MAG TRIHYDRATE 20 MG CAPSULE.DR GT SCH (05:21)
[2018-07-11 06:05] VITALS: BP 126/56
[2018-07-11] MEDS: NEPRO 1,000 ML BOTTLE GT PRN (06:32)
[2018-07-11 07:33] VITALS: BP 132/56
[2018-07-11] MEDS: POLYVINYL ALCOHOL 15 ML BOTTLE EACHEYE SCH ×2 (08:48→20:01)
[2018-07-11] MEDS: SEVELAMER CARBONATE 0.8 GM POWD.PACK GT SCH ×3 (08:48→17:31)
[2018-07-11] MEDS: ACIDOPHILUS/BULGARICUS 1 EACH TAB.CHEW GT SCH ×2 (08:49→17:06)
[2018-07-11] MEDS: METOCLOPRAMIDE HCL 10 MG/10 ML UDC GT SCH ×2 (08:49→20:02)
[2018-07-11] MEDS: ACETAMINOPHEN 650 MG/20 ML UDC- SA PATIENTS-PAIN ONLY GT SCH ×2 (08:50→20:04)
[2018-07-11] MEDS: ASCORBIC ACID 500 MG TABLET GT SCH (08:50)
[2018-07-11] MEDS: VIT B CMPLX 3/FA/VIT C/BIOTIN 1 TAB TABLET GT SCH (08:57)
[2018-07-11] MEDS: HYDROGEL DRESSING 90 GM TUBE TP SCH ×3 (09:00→20:14)
[2018-07-11] MEDS: NYSTATIN TOP POWDER 15 GM BOTTLE TP SCH ×6 (09:00→20:15)
[2018-07-11] MEDS: HYDROGEN PEROXIDE 480 ML BOTTLE TP SCH ×2 (09:00→20:14)
[2018-07-11] MEDS: NYSTATIN/TRIAMCIN 15 GM CREAM 15 GM TUBE TP SCH ×2 (09:00→20:14)
[2018-07-11] MEDS: hydrALAZINE HCL 25 MG TABLET GT SCH ×2 (09:00→17:00)
[2018-07-11] MEDS: POVIDONE-IODINE OINT 28.4 GM TUBE TP SCH ×2 (09:00→20:14)
[2018-07-11] MEDS: Z GUARD REMEDY 4 OZ OINT TP SCH ×2 (09:00→20:15)
[2018-07-11] MEDS: METOPROLOL TARTRATE 50 MG TABLET GT SCH ×2 (09:09→21:30)
[2018-07-11] MEDS: INSULIN GLARGINE, 100 UNIT/ML CARTRIDGE SQ SCH ×2 (09:15→21:37)
[2018-07-11] MEDS: HEPARIN SODIUM, PORCINE 5000 UNITS/1 ML VIAL SQ SCH ×2 (09:15→20:05)
[2018-07-11 12:00] VITALS: BP 139/69
--- NOTE | 2018-07-11 12:10 | NUR ---
RT NOTE: MONTHLY TRACH CHANGE DONE WITH NO ADVERSE REACTIONS. NO BLEEDING OR REDNESS NOTED. PATIENT'S RESPIRATIONS ARE EVEN AND UNLABORED. NURSE NOTIFIED.
--- NOTE | 2018-07-11 13:55 | NUR ---
Seen and examined by THOMAS Crespo, with order for CBC in AM, awaiting for GI consult.
[2018-07-11 18:05] VITALS: BP 115/53
[2018-07-11 19:58] VITALS: BP 120/58
[2018-07-12] MEDS: BLOOD SUGAR DIAGNOSTIC 1 EACH STRIP IN SCH ×4 (00:52→18:29)
[2018-07-12] MEDS: INSULIN REGULAR, HUMAN 100 UNIT/ML 3 ML VIAL SQ PRN ×4 (00:54→18:30)
[2018-07-12 01:29] VITALS: BP 118/56
[2018-07-12] MEDS: ALBUTEROL FS 2.5 MG/3 ML VIAL.NEB NEB SCH ×4 (01:34→20:20)
[2018-07-12] MEDS: IPRATROPIUM NEB FS 0.5 MG/2.5 ML AMPUL.NEB NEB SCH ×4 (01:34→20:20)
[2018-07-12] MEDS: PROSOURCE / PROSTAT (PYXIS) 30 ML UDC GT SCH ×5 (05:12→20:11)
[2018-07-12] MEDS: MAG HYDROX/AL HYDROX/SIMETH 30 ML UDC TP SCH ×4 (05:13→23:55)
[2018-07-12] MEDS: ESOMEPRAZOLE MAG TRIHYDRATE 20 MG CAPSULE.DR GT SCH (05:14)
[2018-07-12] MEDS: PIPERACILLIN /TAZOBACTAM 2.25 G in IV D5W 50 ML IV SCH ×3 (05:44→21:00)
[2018-07-12 06:10] VITALS: BP 125/50
[2018-07-12 07:20] LABS: BASOPHILS # (AUTO) 0.1 /CMM (0.0-0.2); BASOPHILS % (AUTO) 0.7 % (0.0-2.0); EOSINOPHILS % (AUTO) 2.6 % (0.0-6.0); HEMATOCRIT 29 % (33-45); HEMOGLOBIN 9.3 g/dL (11.5-14.8); LYMPHOCYTES # (AUTO) 1.5 /CMM (0.8-4.8); LYMPHOCYTES % (AUTO) 19.2 % (20.0-44.0); MEAN CORPUSCULAR HGB CONC 32 g/dl (31.0-36.0); MEAN CORPUSCULAR VOLUME 89 fL (82-100); MONOCYTES # (AUTO) 0.6 /CMM (0.1-1.30); MONOCYTES % (AUTO) 7.7 % (2.0-12.0); NEUTROPHILS # (AUTO) 5.4 /CMM (1.8-8.9); NEUTROPHILS % (AUTO) 69.8 % (43.0-81.0); PLATELET COUNT (AUTO) 197 /CMM (150-450); WHITE BLOOD COUNT (AUTO) 7.7 K/uL (4.3-11.0)
[2018-07-12 07:48] VITALS: BP 121/54
[2018-07-12] MEDS: SEVELAMER CARBONATE 0.8 GM POWD.PACK GT SCH ×3 (08:00→18:29)
[2018-07-12] MEDS: POVIDONE-IODINE OINT 28.4 GM TUBE TP SCH ×2 (09:00→20:17)
[2018-07-12] MEDS: HYDROGEL DRESSING 90 GM TUBE TP SCH ×2 (09:00→20:17)
[2018-07-12] MEDS: NYSTATIN TOP POWDER 15 GM BOTTLE TP SCH ×6 (09:00→20:18)
[2018-07-12] MEDS: HYDROGEN PEROXIDE 480 ML BOTTLE TP SCH ×2 (09:00→20:17)
[2018-07-12] MEDS: NYSTATIN/TRIAMCIN 15 GM CREAM 15 GM TUBE TP SCH ×2 (09:00→20:17)
[2018-07-12] MEDS: hydrALAZINE HCL 25 MG TABLET GT SCH ×2 (09:00→16:34)
[2018-07-12] MEDS: Z GUARD REMEDY 4 OZ OINT TP SCH ×2 (09:00→20:18)
[2018-07-12] MEDS: POLYVINYL ALCOHOL 15 ML BOTTLE EACHEYE SCH ×2 (09:36→20:10)
[2018-07-12] MEDS: ACIDOPHILUS/BULGARICUS 1 EACH TAB.CHEW GT SCH ×2 (09:37→16:35)
[2018-07-12] MEDS: METOPROLOL TARTRATE 50 MG TABLET GT SCH ×2 (09:37→22:06)
[2018-07-12] MEDS: METOCLOPRAMIDE HCL 10 MG/10 ML UDC GT SCH ×2 (09:37→20:11)
[2018-07-12] MEDS: VIT B CMPLX 3/FA/VIT C/BIOTIN 1 TAB TABLET GT SCH (09:37)
[2018-07-12] MEDS: ASCORBIC ACID 500 MG TABLET GT SCH (09:38)
[2018-07-12] MEDS: ACETAMINOPHEN 650 MG/20 ML UDC- SA PATIENTS-PAIN ONLY GT SCH ×2 (09:38→20:13)
[2018-07-12] MEDS: HEPARIN SODIUM, PORCINE 5000 UNITS/1 ML VIAL SQ SCH ×2 (09:39→20:16)
[2018-07-12] MEDS: INSULIN GLARGINE, 100 UNIT/ML CARTRIDGE SQ SCH ×2 (09:39→22:08)
--- NOTE | 2018-07-12 10:28 | NUR ---
Verified with THOMAS Ramsay if she wanted the pt on Zosyn until 07/15/18 since pt's WBC is 7.7 and blood cultures are negative. She said to continue giving Zosyn until 07/15/18. Notified pharmacist May.
[2018-07-12 12:00] VITALS: BP 118/62
--- NOTE | 2018-07-12 16:19 | NUR ---
THOMAS Redman ordered to culture GT site redness. Notified her that the reddened area around pt's GT that appears like cellulitis is no longer red and skin is intact. Asked her if she wanted to culture the GT stoma. She said no and she ordered to DC the culture that she previously ordered. Informed THOMAS Ramsay that pt was seen by GI and GT site redness is resolving.
[2018-07-12] MEDS: NEPRO 1,000 ML BOTTLE GT PRN (16:37)
[2018-07-12 18:49] VITALS: BP 110/74
--- NOTE | 2018-07-12 20:21 | NUR ---
RT Pt received trach'd and on [facility] vent w charted settings. Vent is plugged into red outlet. Alarms are on and audible. Trach is secure and patent.. Hhn tx given and pt sx'd w no adverse reactions. No respiratory distress noted. Will continue to monitor. Addendum: 07/12/18 at 2137 by JOHANA RING RT Amended: Links added.
[2018-07-12 20:47] VITALS: BP 118/58
[2018-07-13] MEDS: BLOOD SUGAR DIAGNOSTIC 1 EACH STRIP IN SCH ×4 (00:38→17:51)
[2018-07-13] MEDS: INSULIN REGULAR, HUMAN 100 UNIT/ML 3 ML VIAL SQ PRN ×3 (00:40→17:51)
[2018-07-13 01:15] VITALS: BP 109/52
[2018-07-13] MEDS: ALBUTEROL FS 2.5 MG/3 ML VIAL.NEB NEB SCH ×4 (02:07→19:24)
[2018-07-13] MEDS: IPRATROPIUM NEB FS 0.5 MG/2.5 ML AMPUL.NEB NEB SCH ×4 (02:07→19:24)
[2018-07-13] MEDS: MAG HYDROX/AL HYDROX/SIMETH 30 ML UDC TP SCH ×4 (05:08→22:49)
[2018-07-13] MEDS: PROSOURCE / PROSTAT (PYXIS) 30 ML UDC GT SCH ×5 (05:08→20:01)
[2018-07-13] MEDS: ESOMEPRAZOLE MAG TRIHYDRATE 20 MG CAPSULE.DR GT SCH (05:09)
[2018-07-13] MEDS: PIPERACILLIN /TAZOBACTAM 2.25 G in IV D5W 50 ML IV SCH ×3 (05:23→21:00)
[2018-07-13 06:20] VITALS: BP 107/45
--- NOTE | 2018-07-13 07:12 | NUR ---
Received female faith pt on a mechanical vent. Pt faith is secure. Vent is plugged into a red outlet, alarms are set and audible, and BMV is at bedside. Addendum: 07/13/18 at 0713 by ANNMARIE CARVER RT Amended: Links added.
[2018-07-13 07:31] VITALS: BP 103/41
[2018-07-13] MEDS: SEVELAMER CARBONATE 0.8 GM POWD.PACK GT SCH ×3 (08:00→17:51)
[2018-07-13] MEDS: NYSTATIN TOP POWDER 15 GM BOTTLE TP SCH ×6 (09:00→20:04)
[2018-07-13] MEDS: HYDROGEN PEROXIDE 480 ML BOTTLE TP SCH ×2 (09:00→20:04)
[2018-07-13] MEDS: HYDROGEL DRESSING 90 GM TUBE TP SCH ×2 (09:00→20:04)
[2018-07-13] MEDS: ACETAMINOPHEN 650 MG/20 ML UDC- SA PATIENTS-PAIN ONLY GT SCH ×2 (09:00→20:03)
[2018-07-13] MEDS: NYSTATIN/TRIAMCIN 15 GM CREAM 15 GM TUBE TP SCH ×2 (09:00→20:04)
[2018-07-13] MEDS: POVIDONE-IODINE OINT 28.4 GM TUBE TP SCH ×2 (09:00→20:04)
[2018-07-13] MEDS: Z GUARD REMEDY 4 OZ OINT TP SCH ×2 (09:00→20:04)
[2018-07-13] MEDS: HEPARIN SODIUM, PORCINE 5000 UNITS/1 ML VIAL SQ SCH ×2 (09:31→20:03)
[2018-07-13] MEDS: INSULIN GLARGINE, 100 UNIT/ML CARTRIDGE SQ SCH ×2 (09:32→21:43)
[2018-07-13] MEDS: POLYVINYL ALCOHOL 15 ML BOTTLE EACHEYE SCH ×2 (09:34→20:01)
[2018-07-13] MEDS: METOCLOPRAMIDE HCL 10 MG/10 ML UDC GT SCH ×2 (09:34→20:02)
[2018-07-13] MEDS: ACIDOPHILUS/BULGARICUS 1 EACH TAB.CHEW GT SCH ×2 (09:34→17:51)
[2018-07-13] MEDS: ASCORBIC ACID 500 MG TABLET GT SCH (09:34)
[2018-07-13] MEDS: VIT B CMPLX 3/FA/VIT C/BIOTIN 1 TAB TABLET GT SCH (09:34)
--- NOTE | 2018-07-13 16:30 | NUR ---
Pt was at [facility] at 1300, unable to administer Zosyn at that time. Administered Zosyn at 1630 when pt came back from hemodialysis.
[2018-07-13] MEDS: hydrALAZINE HCL 25 MG TABLET GT SCH (17:00)
--- NOTE | 2018-07-13 17:00 | NUR ---
Received order to continue Vancomycin 500 mg IV after HD to complete antibiotic therapy.
[2018-07-13] MEDS: NEPRO 1,000 ML BOTTLE GT PRN (17:37)
[2018-07-13 18:00] VITALS: BP 120/43
[2018-07-13 19:48] VITALS: BP 108/54
[2018-07-13] MEDS: METOPROLOL TARTRATE 50 MG TABLET GT SCH (21:42)
[2018-07-13] MEDS: VANCOMYCIN POST DIALYSIS 500MG IV PRN ×2 (22:00)
[2018-07-14] MEDS: INSULIN REGULAR, HUMAN 100 UNIT/ML 3 ML VIAL SQ PRN ×4 (00:01→17:15)
[2018-07-14 00:02] VITALS: BP 121/49
[2018-07-14] MEDS: IPRATROPIUM NEB FS 0.5 MG/2.5 ML AMPUL.NEB NEB SCH ×4 (00:31→19:27)
[2018-07-14] MEDS: ALBUTEROL FS 2.5 MG/3 ML VIAL.NEB NEB SCH ×4 (00:31→19:27)
[2018-07-14] MEDS: PIPERACILLIN /TAZOBACTAM 2.25 G in IV D5W 50 ML IV SCH ×3 (05:00→20:32)
--- NOTE | 2018-07-14 05:06 | NUR ---
PT REC'D TRACHED ON [facility] VENT ON AC MODE. NO RESP DISTRESS OR SOB NOTED. TRACH PATENT AND SECURED. SX'D FOR THICK SMALL AMT OF PALE YELLOW SECRETIONS. ALARMS ARE SET AND AUDIBLE. VENT PLUGGED INTO RED OUTLET. AMBU BAG BEDSIDE. WILL CONTINUE TO MONITOR. Addendum: 07/14/18 at 0507 by LOUISA CRUZ RT Amended: Links added.
[2018-07-14] MEDS: BLOOD SUGAR DIAGNOSTIC 1 EACH STRIP IN SCH ×4 (05:19→17:10)
[2018-07-14] MEDS: PROSOURCE / PROSTAT (PYXIS) 30 ML UDC GT SCH ×5 (05:19→20:23)
[2018-07-14] MEDS: MAG HYDROX/AL HYDROX/SIMETH 30 ML UDC TP SCH ×4 (05:19→22:06)
[2018-07-14] MEDS: ESOMEPRAZOLE MAG TRIHYDRATE 20 MG CAPSULE.DR GT SCH (05:19)
[2018-07-14 06:30] VITALS: BP 150/56
[2018-07-14] MEDS: SEVELAMER CARBONATE 0.8 GM POWD.PACK GT SCH ×3 (08:53→17:10)
[2018-07-14] MEDS: ACIDOPHILUS/BULGARICUS 1 EACH TAB.CHEW GT SCH ×2 (08:54→17:10)
[2018-07-14] MEDS: METOPROLOL TARTRATE 50 MG TABLET GT SCH ×2 (08:54→21:14)
[2018-07-14] MEDS: POLYVINYL ALCOHOL 15 ML BOTTLE EACHEYE SCH ×2 (08:54→20:23)
[2018-07-14] MEDS: hydrALAZINE HCL 25 MG TABLET GT SCH ×2 (08:54→17:00)
[2018-07-14] MEDS: ACETAMINOPHEN 650 MG/20 ML UDC- SA PATIENTS-PAIN ONLY GT SCH ×2 (08:55→20:24)
[2018-07-14] MEDS: METOCLOPRAMIDE HCL 10 MG/10 ML UDC GT SCH ×2 (08:55→20:23)
[2018-07-14] MEDS: VIT B CMPLX 3/FA/VIT C/BIOTIN 1 TAB TABLET GT SCH (08:55)
[2018-07-14] MEDS: ASCORBIC ACID 500 MG TABLET GT SCH (08:55)
[2018-07-14] MEDS: HEPARIN SODIUM, PORCINE 5000 UNITS/1 ML VIAL SQ SCH ×2 (08:59→20:44)
[2018-07-14] MEDS: INSULIN GLARGINE, 100 UNIT/ML CARTRIDGE SQ SCH ×2 (09:04→22:06)
[2018-07-14] MEDS: POVIDONE-IODINE OINT 28.4 GM TUBE TP SCH ×2 (09:04→21:13)
[2018-07-14] MEDS: Z GUARD REMEDY 4 OZ OINT TP SCH ×2 (09:05→21:14)
[2018-07-14] MEDS: NYSTATIN TOP POWDER 15 GM BOTTLE TP SCH ×6 (09:05→21:14)
[2018-07-14] MEDS: NYSTATIN/TRIAMCIN 15 GM CREAM 15 GM TUBE TP SCH ×2 (09:05→21:14)
[2018-07-14] MEDS: HYDROGEL DRESSING 90 GM TUBE TP SCH ×2 (09:05→21:13)
[2018-07-14] MEDS: HYDROGEN PEROXIDE 480 ML BOTTLE TP SCH ×2 (09:05→21:13)
--- NOTE | 2018-07-14 09:41 | NUR ---
RT RECD PT TRACHED INTACT & SECURED ON MECH VENT CESARIO ORDERED SETTING ALARMS ON AND AUDIBLE BAG AND MASK AT HOB VENT PLUGGED IN RED OUTLET TX GIVEN CESARIO WELL NO ADVERSE REACTION NOTED ATT NO RESP DISTRESS THROUGHT OUT SHIFT WILL CONT TO MONITOR
[2018-07-14 10:15] VITALS: BP 160/74
[2018-07-14 12:22] VITALS: BP 116/50
--- NOTE | 2018-07-14 13:45 | NUR ---
Asked Dr. Batista to assess patient's GT site because surrounding stoma feels hard to touch. MD deflated GT balloon and palpated the area which feels firm with some area slightly softer. Dr. Batista reinflated GT balloon to keep GT in place. According to MD, the cellulitis is taking a little longer to subside and probably that is the reason the tissue feels firm to touch. GT site redness still present but much improved compared to before she started antibiotics. Dr. Wall was in earlier and mentioned that patient's GT stoma looks better as he saw her yesterday at the dialysis center. No new order given at this time. Patient continue on IV ATB with no adverse reaction noted.
[2018-07-14] MEDS: NEPRO 1,000 ML BOTTLE GT PRN (17:34)
--- NOTE | 2018-07-14 19:27 | NUR ---
RT NOTE: RECEIVED TRACH PT ON [facility] VENT ON NOTED SETTINGS PER MD ORDERS. TRACH IS PATENT AND SECURED. SKIN LAP BONDER DONE. Q6 BREATHING TX GIVEN WITH NO ADVERSE REACTION NOTED. SX DONE PRN. VENT PLUGGED INTO RED OUTLET. ALARMS ON AND AUDIBLE. NACHO BAG @ BEDSIDE. NO RESP DISTRESS AT THIS TIME. WILL CONT TO MONITOR PT. Addendum: 07/15/18 at 0237 by FREDDY PALMA RT Amended: Links added.
[2018-07-14 19:32] VITALS: BP 113/50
[2018-07-14 20:49] VITALS: BP 107/75
[2018-07-15 00:20] VITALS: BP 108/53
[2018-07-15] MEDS: BLOOD SUGAR DIAGNOSTIC 1 EACH STRIP IN SCH ×4 (00:50→18:08)
[2018-07-15] MEDS: INSULIN REGULAR, HUMAN 100 UNIT/ML 3 ML VIAL SQ PRN ×3 (00:52→18:10)
[2018-07-15] MEDS: IPRATROPIUM NEB FS 0.5 MG/2.5 ML AMPUL.NEB NEB SCH ×4 (01:31→19:28)
[2018-07-15] MEDS: ALBUTEROL FS 2.5 MG/3 ML VIAL.NEB NEB SCH ×4 (01:31→19:28)
[2018-07-15] MEDS: PIPERACILLIN /TAZOBACTAM 2.25 G in IV D5W 50 ML IV SCH ×2 (05:07→15:30)
[2018-07-15] MEDS: MAG HYDROX/AL HYDROX/SIMETH 30 ML UDC TP SCH ×4 (05:22→22:34)
[2018-07-15] MEDS: ESOMEPRAZOLE MAG TRIHYDRATE 20 MG CAPSULE.DR GT SCH (05:22)
[2018-07-15] MEDS: PROSOURCE / PROSTAT (PYXIS) 30 ML UDC GT SCH ×5 (05:22→21:46)
[2018-07-15 06:52] VITALS: BP 100/49
[2018-07-15] MEDS: SEVELAMER CARBONATE 0.8 GM POWD.PACK GT SCH ×3 (08:00→18:13)
[2018-07-15 08:03] VITALS: BP 91/35
[2018-07-15] MEDS: ACETAMINOPHEN 650 MG/20 ML UDC- SA PATIENTS-PAIN ONLY GT SCH ×2 (09:00→21:48)
[2018-07-15] MEDS: VIT B CMPLX 3/FA/VIT C/BIOTIN 1 TAB TABLET GT SCH (09:00)
[2018-07-15] MEDS: ASCORBIC ACID 500 MG TABLET GT SCH (09:00)
[2018-07-15] MEDS: METOCLOPRAMIDE HCL 10 MG/10 ML UDC GT SCH ×2 (09:00→21:46)
[2018-07-15] MEDS: ACIDOPHILUS/BULGARICUS 1 EACH TAB.CHEW GT SCH ×2 (09:00→17:00)
[2018-07-15] MEDS: POVIDONE-IODINE OINT 28.4 GM TUBE TP SCH ×2 (09:00→21:57)
[2018-07-15] MEDS: HEPARIN SODIUM, PORCINE 5000 UNITS/1 ML VIAL SQ SCH ×2 (09:00→21:49)
[2018-07-15] MEDS: POLYVINYL ALCOHOL 15 ML BOTTLE EACHEYE SCH ×2 (09:00→21:46)
[2018-07-15] MEDS: HYDROGEN PEROXIDE 480 ML BOTTLE TP SCH ×2 (09:00→21:57)
[2018-07-15] MEDS: NYSTATIN TOP POWDER 15 GM BOTTLE TP SCH ×6 (09:00→21:57)
[2018-07-15] MEDS: Z GUARD REMEDY 4 OZ OINT TP SCH ×2 (09:30→21:57)
[2018-07-15] MEDS: NYSTATIN/TRIAMCIN 15 GM CREAM 15 GM TUBE TP SCH ×2 (09:30→21:57)
[2018-07-15] MEDS: HYDROGEL DRESSING 90 GM TUBE TP SCH ×2 (09:30→21:57)
--- NOTE | 2018-07-15 09:39 | NUR ---
Pt's BP 94/33 HR 85 T 99[address] Wall and left message with Rachell.
[2018-07-15] MEDS: INSULIN GLARGINE, 100 UNIT/ML CARTRIDGE SQ SCH ×2 (09:50→22:34)
--- NOTE | 2018-07-15 10:25 | NUR ---
Dr Wall called. Informed him of pt's BP 94/33, pt has been picked up by [facility] for hemodialysis. Spoke with Donald of [facility] and he is aware of pt's BP. He said they accept pt for hemodialysis. No new order from Dr Wall.
--- NOTE | 2018-07-15 16:17 | NUR ---
RT NOTE: PATIENT RECEIVED TRACHED ON MECHANICAL VENT. ALARMS VERIFIED AND AUDIBLE. VENT PLUGGED INTO RED OUTLET. AMBU BAG AND NEW TRACH AT [facility].
--- NOTE | 2018-07-15 16:43 | NUR ---
Administered last dose of Zosyn at 1530 when pt came back from hemodialysis.
[2018-07-15] MEDS: hydrALAZINE HCL 25 MG TABLET GT SCH (17:00)
[2018-07-15 18:00] VITALS: BP 108/33
[2018-07-15] MEDS: NEPRO 1,000 ML BOTTLE GT PRN (18:12)
[2018-07-15 20:25] VITALS: BP 105/46
--- NOTE | 2018-07-15 20:59 | NUR ---
RT NOTE PATIENT WAS RECEIVED ON CONTINUOUS VENT SUPPORT ON NOTED VENT SETTINGS. HHN INLINE TREATMENT WAS GIVEN, NO ADVERSE REACTION NOTED ,PRN SUCTION WAS DONE. TRACH TUBE PATENT AND SECURED. ALARMS ON AND AUDIBLE. VANI AND ERIS GAN AT [facility]. WILL CONTINUE TO MONITOR PATIENT Addendum: 07/15/18 at 2101 by FERMÍN DAMON RT Amended: Links added.
[2018-07-15] MEDS: METOPROLOL TARTRATE 50 MG TABLET GT SCH (21:49)
[2018-07-16] MEDS: BLOOD SUGAR DIAGNOSTIC 1 EACH STRIP IN SCH ×4 (00:20→17:23)
[2018-07-16] MEDS: INSULIN REGULAR, HUMAN 100 UNIT/ML 3 ML VIAL SQ PRN ×4 (00:21→17:25)
[2018-07-16 00:22] VITALS: BP 137/54
[2018-07-16] MEDS: IPRATROPIUM NEB FS 0.5 MG/2.5 ML AMPUL.NEB NEB SCH ×4 (01:36→19:25)
[2018-07-16] MEDS: ALBUTEROL FS 2.5 MG/3 ML VIAL.NEB NEB SCH ×4 (01:36→19:25)
[2018-07-16] MEDS: ESOMEPRAZOLE MAG TRIHYDRATE 20 MG CAPSULE.DR GT SCH (05:42)
[2018-07-16] MEDS: MAG HYDROX/AL HYDROX/SIMETH 30 ML UDC TP SCH ×4 (05:42→23:14)
[2018-07-16] MEDS: PROSOURCE / PROSTAT (PYXIS) 30 ML UDC GT SCH ×5 (05:42→20:02)
[2018-07-16 06:36] VITALS: BP 134/57
--- NOTE | 2018-07-16 07:33 | NUR ---
Female trach pt received on a mechanical vent. PT faith is secure. Vent is plugged into a red outlet, alarms are set and audible, and BMV is at bedside. Addendum: 07/16/18 at 0734 by ANNMARIE CARVER RT Amended: Links added.
[2018-07-16] MEDS: SEVELAMER CARBONATE 0.8 GM POWD.PACK GT SCH ×3 (08:00→17:23)
[2018-07-16] MEDS: METOPROLOL TARTRATE 50 MG TABLET GT SCH ×2 (09:00→21:33)
[2018-07-16] MEDS: hydrALAZINE HCL 25 MG TABLET GT SCH ×2 (09:00→17:00)
[2018-07-16] MEDS: METOCLOPRAMIDE HCL 10 MG/10 ML UDC GT SCH ×2 (09:29→20:02)
[2018-07-16] MEDS: ASCORBIC ACID 500 MG TABLET GT SCH (09:29)
[2018-07-16] MEDS: POLYVINYL ALCOHOL 15 ML BOTTLE EACHEYE SCH ×2 (09:29→20:01)
[2018-07-16] MEDS: ACIDOPHILUS/BULGARICUS 1 EACH TAB.CHEW GT SCH ×2 (09:29→17:23)
[2018-07-16] MEDS: VIT B CMPLX 3/FA/VIT C/BIOTIN 1 TAB TABLET GT SCH (09:29)
[2018-07-16] MEDS: ACETAMINOPHEN 650 MG/20 ML UDC- SA PATIENTS-PAIN ONLY GT SCH ×2 (09:29→20:03)
[2018-07-16] MEDS: HEPARIN SODIUM, PORCINE 5000 UNITS/1 ML VIAL SQ SCH ×2 (09:32→20:04)
[2018-07-16] MEDS: INSULIN GLARGINE, 100 UNIT/ML CARTRIDGE SQ SCH ×2 (09:33→21:34)
[2018-07-16] MEDS: NYSTATIN/TRIAMCIN 15 GM CREAM 15 GM TUBE TP SCH ×2 (10:00→20:04)
[2018-07-16] MEDS: HYDROGEN PEROXIDE 480 ML BOTTLE TP SCH ×2 (10:00→20:04)
[2018-07-16] MEDS: Z GUARD REMEDY 4 OZ OINT TP SCH ×2 (10:00→20:05)
[2018-07-16] MEDS: POVIDONE-IODINE OINT 28.4 GM TUBE TP SCH ×2 (10:00→20:04)
[2018-07-16] MEDS: NYSTATIN TOP POWDER 15 GM BOTTLE TP SCH ×4 (10:00→20:04)
[2018-07-16] MEDS: HYDROGEL DRESSING 90 GM TUBE TP SCH ×2 (10:00→20:04)
[2018-07-16 11:00] VITALS: BP 108/40
[2018-07-16 12:00] VITALS: BP 91/63
--- NOTE | 2018-07-16 14:52 | NUR ---
INTERDISCIPLINARY TEAM CONFERENCE (IDT) was held today. Resident's boyfriend John was unable to attend today's IDT meeting. Dr. Morejon and the interdisciplinary team reviewed the current plan of care in detail. Orders as well as treatment and medications were reviewed. Resident is stable at this time. B/P medications were reviewed, pharmacy reported it is being held frequently. Dr. Morejon decrease dose of Hydralazine from 25 mg. to 12.5 mg. Order carried out.
[2018-07-16 18:29] VITALS: BP 110/51
[2018-07-16] MEDS: NEPRO 1,000 ML BOTTLE GT PRN (18:47)
[2018-07-16 19:40] VITALS: BP 110/57
--- NOTE | 2018-07-16 20:39 | NUR ---
PATIENT RECEIVED ON MECHANICAL VENTILATION. VENT PLUGGED INTO RED OUTLET. CUFF CHECKED VIA ROAD [place]. ALARMS ON AND AUDIBLE. TX GIVEN, NO ADVERSE REACTIONS NOTED. NO DISTRESS NOTED. SX DONE, SMALL THICK WHITE SECRETIONS NOTED. PATIENT STABLE. Addendum: 07/16/18 at 2041 by CARI TRIANA RT Amended: Links added.
[2018-07-17] MEDS: BLOOD SUGAR DIAGNOSTIC 1 EACH STRIP IN SCH ×4 (00:12→18:08)
[2018-07-17] MEDS: INSULIN REGULAR, HUMAN 100 UNIT/ML 3 ML VIAL SQ PRN ×3 (00:13→18:09)
[2018-07-17 00:16] VITALS: BP 116/51
[2018-07-17] MEDS: IPRATROPIUM NEB FS 0.5 MG/2.5 ML AMPUL.NEB NEB SCH ×4 (01:36→19:16)
[2018-07-17] MEDS: ALBUTEROL FS 2.5 MG/3 ML VIAL.NEB NEB SCH ×4 (01:36→19:16)
[2018-07-17] MEDS: PROSOURCE / PROSTAT (PYXIS) 30 ML UDC GT SCH ×5 (05:05→21:24)
[2018-07-17] MEDS: MAG HYDROX/AL HYDROX/SIMETH 30 ML UDC TP SCH ×4 (05:05→23:03)
[2018-07-17] MEDS: ESOMEPRAZOLE MAG TRIHYDRATE 20 MG CAPSULE.DR GT SCH (05:06)
[2018-07-17 06:09] VITALS: BP 139/55
[2018-07-17 07:30] VITALS: BP 114/68
[2018-07-17] MEDS: SEVELAMER CARBONATE 0.8 GM POWD.PACK GT SCH ×3 (08:58→17:16)
[2018-07-17] MEDS: METOCLOPRAMIDE HCL 10 MG/10 ML UDC GT SCH ×2 (09:06→21:25)
[2018-07-17] MEDS: VIT B CMPLX 3/FA/VIT C/BIOTIN 1 TAB TABLET GT SCH (09:06)
[2018-07-17] MEDS: ACIDOPHILUS/BULGARICUS 1 EACH TAB.CHEW GT SCH ×2 (09:06→17:16)
[2018-07-17] MEDS: ASCORBIC ACID 500 MG TABLET GT SCH (09:06)
[2018-07-17] MEDS: ACETAMINOPHEN 650 MG/20 ML UDC- SA PATIENTS-PAIN ONLY GT SCH ×2 (09:06→21:27)
[2018-07-17] MEDS: POLYVINYL ALCOHOL 15 ML BOTTLE EACHEYE SCH ×2 (09:06→21:24)
[2018-07-17] MEDS: HEPARIN SODIUM, PORCINE 5000 UNITS/1 ML VIAL SQ SCH ×2 (09:06→21:29)
[2018-07-17] MEDS: INSULIN GLARGINE, 100 UNIT/ML CARTRIDGE SQ SCH ×2 (09:07→22:28)
[2018-07-17] MEDS: HYDROGEN PEROXIDE 480 ML BOTTLE TP SCH ×2 (09:40→21:30)
[2018-07-17] MEDS: HYDROGEL DRESSING 90 GM TUBE TP SCH ×2 (09:40→21:30)
[2018-07-17] MEDS: NYSTATIN TOP POWDER 15 GM BOTTLE TP SCH ×4 (09:40→21:30)
[2018-07-17] MEDS: Z GUARD REMEDY 4 OZ OINT TP SCH ×2 (09:40→21:30)
[2018-07-17] MEDS: POVIDONE-IODINE OINT 28.4 GM TUBE TP SCH ×2 (09:40→21:30)
[2018-07-17] MEDS: NYSTATIN/TRIAMCIN 15 GM CREAM 15 GM TUBE TP SCH ×2 (09:40→21:30)
--- NOTE | 2018-07-17 10:30 | NUR ---
Resident picked up by Ambulance via gurney for hemodialysis treatment, accompanied by 2 EMT's and 1 RT. RFA AV shunt intact, no bleeding, positive with thrill and bruit. Resident left building in stable condition.
[2018-07-17 15:30] VITALS: BP 143/95
--- NOTE | 2018-07-17 15:30 | NUR ---
Resident returned from S/P hemodialysis treatment, no s/s of any complications noted. RFA AV shunt intact, no active bleeding noted. Covered with dressing, clean and dry. Positive with thrill and bruit. Will monitor.
[2018-07-17] MEDS: hydrALAZINE HCL 25 MG TABLET GT SCH (17:16)
[2018-07-17 18:31] VITALS: BP 153/51
[2018-07-17 20:00] VITALS: BP 129/39
--- NOTE | 2018-07-17 20:49 | NUR ---
RT NOTE PATIENT WAS RECEIVED ON CONTINUOUS VENT SUPPORT ON NOTED VENT SETTINGS. HHN INLINE TREATMENT WAS GIVEN, NO ADVERSE REACTION NOTED ,PRN SUCTION WAS DONE. TRACH TUBE PATENT AND SECURED. ALARMS ON AND AUDIBLE. VANI AND ERIS GAN AT [facility]. WILL CONTINUE TO MONITOR PATIENT Addendum: 07/17/18 at 2049 by FERMÍN DAMON RT Amended: Links added.
[2018-07-17] MEDS: METOPROLOL TARTRATE 50 MG TABLET GT SCH (21:30)
--- NOTE | 2018-07-17 22:31 | NUR ---
RN NOTES BLOOD SUGAR CHECK 156. ADMINISTERED SCHEDULED LANTUS 20UN. ON GTF.
[2018-07-18] VITALS (7 sets, daily range): BP systolic 119–156; BP diastolic 48–62
[2018-07-18] MEDS: BLOOD SUGAR DIAGNOSTIC 1 EACH STRIP IN SCH ×4 (00:38→17:54)
--- NOTE | 2018-07-18 01:00 | NUR ---
RN NOTES 12AM ACCUCHECK 185. ADMINISTERED 3UN OF INSULIN PER SLIDING SCALE. ON GTF.
[2018-07-18] MEDS: INSULIN REGULAR, HUMAN 100 UNIT/ML 3 ML VIAL SQ PRN ×4 (01:14→17:55)
[2018-07-18] MEDS: ALBUTEROL FS 2.5 MG/3 ML VIAL.NEB NEB SCH ×4 (01:19→19:24)
[2018-07-18] MEDS: IPRATROPIUM NEB FS 0.5 MG/2.5 ML AMPUL.NEB NEB SCH ×4 (01:19→19:24)
[2018-07-18] MEDS: MAG HYDROX/AL HYDROX/SIMETH 30 ML UDC TP SCH ×4 (04:49→23:23)
[2018-07-18] MEDS: PROSOURCE / PROSTAT (PYXIS) 30 ML UDC GT SCH ×5 (04:49→20:06)
[2018-07-18] MEDS: ESOMEPRAZOLE MAG TRIHYDRATE 20 MG CAPSULE.DR GT SCH (05:04)
--- NOTE | 2018-07-18 06:05 | NUR ---
RN NOTES 0600 BG ACCUCHECK 177. ADMINISTERED 3UN OF INSULIN PER SLIDING SCALE. ON GTF.
[2018-07-18] MEDS: METOCLOPRAMIDE HCL 10 MG/10 ML UDC GT SCH ×2 (08:57→20:07)
[2018-07-18] MEDS: VIT B CMPLX 3/FA/VIT C/BIOTIN 1 TAB TABLET GT SCH (08:57)
[2018-07-18] MEDS: ACIDOPHILUS/BULGARICUS 1 EACH TAB.CHEW GT SCH ×2 (08:57→17:12)
[2018-07-18] MEDS: SEVELAMER CARBONATE 0.8 GM POWD.PACK GT SCH ×3 (08:57→17:12)
[2018-07-18] MEDS: POLYVINYL ALCOHOL 15 ML BOTTLE EACHEYE SCH ×2 (08:57→20:05)
[2018-07-18] MEDS: ACETAMINOPHEN 650 MG/20 ML UDC- SA PATIENTS-PAIN ONLY GT SCH ×2 (08:58→20:08)
[2018-07-18] MEDS: ASCORBIC ACID 500 MG TABLET GT SCH (08:58)
[2018-07-18] MEDS: HEPARIN SODIUM, PORCINE 5000 UNITS/1 ML VIAL SQ SCH ×2 (08:58→20:09)
[2018-07-18] MEDS: INSULIN GLARGINE, 100 UNIT/ML CARTRIDGE SQ SCH ×2 (09:01→21:40)
[2018-07-18] MEDS: hydrALAZINE HCL 25 MG TABLET GT SCH ×2 (09:02→17:00)
[2018-07-18] MEDS: METOPROLOL TARTRATE 50 MG TABLET GT SCH ×2 (09:03→21:39)
[2018-07-18] MEDS: NYSTATIN/TRIAMCIN 15 GM CREAM 15 GM TUBE TP SCH (09:30)
[2018-07-18] MEDS: NYSTATIN TOP POWDER 15 GM BOTTLE TP SCH ×4 (09:30→20:10)
[2018-07-18] MEDS: HYDROGEN PEROXIDE 480 ML BOTTLE TP SCH ×2 (09:30→20:10)
[2018-07-18] MEDS: Z GUARD REMEDY 4 OZ OINT TP SCH ×2 (09:30→20:10)
[2018-07-18] MEDS: HYDROGEL DRESSING 90 GM TUBE TP SCH ×2 (09:30→20:10)
[2018-07-18] MEDS: POVIDONE-IODINE OINT 28.4 GM TUBE TP SCH ×2 (09:30→20:10)
[2018-07-18] MEDS: NEPRO 1,000 ML BOTTLE GT PRN (14:16)
--- NOTE | 2018-07-18 19:24 | NUR ---
RT NOTE: RECEIVED TRACH PT ON [facility] VENT ON NOTED SETTINGS PER MD ORDERS. TRACH IS PATENT AND SECURED. NURSE FIRST ASSIST DONE. Q6 BREATHING TX GIVEN WITH NO ADVERSE REACTION NOTED. SX DONE PRN. VENT PLUGGED INTO RED OUTLET. ALARMS ON AND AUDIBLE. NACHO BAG @ BEDSIDE. NO RESP DISTRESS AT THIS TIME. WILL CONT TO MONITOR PT. Addendum: 07/19/18 at 0400 by FREDDY PALMA RT Amended: Links added.
[2018-07-19] MEDS: BLOOD SUGAR DIAGNOSTIC 1 EACH STRIP IN SCH ×5 (00:14→23:53)
[2018-07-19] MEDS: INSULIN REGULAR, HUMAN 100 UNIT/ML 3 ML VIAL SQ PRN ×5 (00:15→23:54)
[2018-07-19 00:58] VITALS: BP 160/73
[2018-07-19] MEDS: IPRATROPIUM NEB FS 0.5 MG/2.5 ML AMPUL.NEB NEB SCH ×4 (01:25→19:42)
[2018-07-19] MEDS: ALBUTEROL FS 2.5 MG/3 ML VIAL.NEB NEB SCH ×4 (01:25→19:42)
[2018-07-19] MEDS: MAG HYDROX/AL HYDROX/SIMETH 30 ML UDC TP SCH ×4 (05:19→23:53)
[2018-07-19] MEDS: PROSOURCE / PROSTAT (PYXIS) 30 ML UDC GT SCH ×5 (05:19→20:04)
[2018-07-19] MEDS: ESOMEPRAZOLE MAG TRIHYDRATE 20 MG CAPSULE.DR GT SCH (05:20)
[2018-07-19 06:13] VITALS: BP 154/63
[2018-07-19] MEDS: SEVELAMER CARBONATE 0.8 GM POWD.PACK GT SCH ×3 (08:46→17:50)
[2018-07-19] MEDS: VIT B CMPLX 3/FA/VIT C/BIOTIN 1 TAB TABLET GT SCH (08:47)
[2018-07-19] MEDS: ACETAMINOPHEN 650 MG/20 ML UDC- SA PATIENTS-PAIN ONLY GT SCH ×2 (08:47→20:06)
[2018-07-19] MEDS: POLYVINYL ALCOHOL 15 ML BOTTLE EACHEYE SCH ×2 (08:47→20:04)
[2018-07-19] MEDS: ACIDOPHILUS/BULGARICUS 1 EACH TAB.CHEW GT SCH ×2 (08:47→17:50)
[2018-07-19] MEDS: METOCLOPRAMIDE HCL 10 MG/10 ML UDC GT SCH ×2 (08:47→20:04)
[2018-07-19] MEDS: ASCORBIC ACID 500 MG TABLET GT SCH (08:47)
[2018-07-19] MEDS: HEPARIN SODIUM, PORCINE 5000 UNITS/1 ML VIAL SQ SCH ×2 (08:48→20:06)
[2018-07-19] MEDS: INSULIN GLARGINE, 100 UNIT/ML CARTRIDGE SQ SCH ×2 (08:48→21:50)
[2018-07-19] MEDS: METOPROLOL TARTRATE 50 MG TABLET GT SCH ×2 (08:49→21:49)
[2018-07-19] MEDS: hydrALAZINE HCL 25 MG TABLET GT SCH ×2 (08:49→17:00)
[2018-07-19] MEDS: HYDROGEN PEROXIDE 480 ML BOTTLE TP SCH ×2 (09:20→20:08)
[2018-07-19] MEDS: HYDROGEL DRESSING 90 GM TUBE TP SCH ×2 (09:20→20:08)
[2018-07-19] MEDS: POVIDONE-IODINE OINT 28.4 GM TUBE TP SCH ×2 (09:20→20:08)
[2018-07-19] MEDS: NYSTATIN TOP POWDER 15 GM BOTTLE TP SCH ×4 (09:20→20:08)
[2018-07-19] MEDS: Z GUARD REMEDY 4 OZ OINT TP SCH ×2 (09:20→20:08)
[2018-07-19 10:22] VITALS: BP 140/44
[2018-07-19 12:00] VITALS: BP 131/73
[2018-07-19 18:38] VITALS: BP 126/66
[2018-07-19] MEDS: NEPRO 1,000 ML BOTTLE GT PRN (18:55)
[2018-07-19] MEDS: NYSTATIN/TRIAMCIN CREAM 15 GM TUBE TP SCH (20:08)
[2018-07-19 20:42] VITALS: BP 117/81
[2018-07-20 00:31] VITALS: BP 111/42
[2018-07-20] MEDS: ALBUTEROL FS 2.5 MG/3 ML VIAL.NEB NEB SCH ×4 (01:46→19:18)
[2018-07-20] MEDS: IPRATROPIUM NEB FS 0.5 MG/2.5 ML AMPUL.NEB NEB SCH ×4 (01:46→19:18)
--- NOTE | 2018-07-20 05:05 | NUR ---
PT REC'D TRACHED ON [facility] VENT ON AC MODE. NO RESP DISTRESS NOTED. TRACH PATENT AND SECURED. SX'D FOR SMALL AMT OF PALE YELLOW SECRETIONS. ALARMS ARE SET AND AUDIBLE. VENT PLUGGED INTO RED OUTLET. AMBU BAG BEDSIDE. WILL CONTINUE TO MONITOR. Addendum: 07/20/18 at 0506 by LOUISA CRUZ RT Amended: Links added.
[2018-07-20] MEDS: BLOOD SUGAR DIAGNOSTIC 1 EACH STRIP IN SCH ×3 (05:21→18:32)
[2018-07-20] MEDS: ESOMEPRAZOLE MAG TRIHYDRATE 20 MG CAPSULE.DR GT SCH (05:21)
[2018-07-20] MEDS: PROSOURCE / PROSTAT (PYXIS) 30 ML UDC GT SCH ×5 (05:21→20:15)
[2018-07-20] MEDS: MAG HYDROX/AL HYDROX/SIMETH 30 ML UDC TP SCH ×4 (05:21→23:00)
[2018-07-20] MEDS: INSULIN REGULAR, HUMAN 100 UNIT/ML 3 ML VIAL SQ PRN ×3 (05:22→18:33)
[2018-07-20 06:14] VITALS: BP 134/66
[2018-07-20] MEDS: SEVELAMER CARBONATE 0.8 GM POWD.PACK GT SCH ×3 (08:00→18:32)
[2018-07-20] MEDS: POVIDONE-IODINE OINT 28.4 GM TUBE TP SCH ×2 (09:00→20:19)
[2018-07-20] MEDS: HEPARIN SODIUM, PORCINE 5000 UNITS/1 ML VIAL SQ SCH ×2 (09:00→20:18)
[2018-07-20] MEDS: NYSTATIN TOP POWDER 15 GM BOTTLE TP SCH ×4 (09:00→20:19)
[2018-07-20] MEDS: Z GUARD REMEDY 4 OZ OINT TP SCH ×2 (09:00→20:19)
[2018-07-20] MEDS: HYDROGEN PEROXIDE 480 ML BOTTLE TP SCH ×2 (09:00→20:19)
[2018-07-20] MEDS: ACIDOPHILUS/BULGARICUS 1 EACH TAB.CHEW GT SCH ×2 (09:29→17:00)
[2018-07-20] MEDS: VIT B CMPLX 3/FA/VIT C/BIOTIN 1 TAB TABLET GT SCH (09:29)
[2018-07-20] MEDS: ACETAMINOPHEN 650 MG/20 ML UDC- SA PATIENTS-PAIN ONLY GT SCH ×2 (09:29→20:17)
[2018-07-20] MEDS: ASCORBIC ACID 500 MG TABLET GT SCH (09:29)
[2018-07-20] MEDS: METOCLOPRAMIDE HCL 10 MG/10 ML UDC GT SCH ×2 (09:29→20:16)
[2018-07-20] MEDS: POLYVINYL ALCOHOL 15 ML BOTTLE EACHEYE SCH ×2 (09:29→20:14)
[2018-07-20] MEDS: INSULIN GLARGINE, 100 UNIT/ML CARTRIDGE SQ SCH ×2 (09:40→22:21)
[2018-07-20] MEDS: HYDROGEL DRESSING 90 GM TUBE TP SCH ×2 (10:00→20:19)
[2018-07-20] MEDS: NYSTATIN/TRIAMCIN CREAM 15 GM TUBE TP SCH ×2 (10:00→20:19)
[2018-07-20 11:30] VITALS: BP 124/45
[2018-07-20 12:00] VITALS: BP 121/63
[2018-07-20] MEDS: hydrALAZINE HCL 25 MG TABLET GT SCH (17:00)
[2018-07-20 18:53] VITALS: BP 115/48
--- NOTE | 2018-07-20 19:48 | NUR ---
Pt was not dialyzed today due to hypotension. Maggie from [facility] said pt's SBP was 80. BP 110/38 prior to hot die picker and BP 121/76 when pt came back from [facility]. Pt will be dialyzed tomorrow at 1645.
[2018-07-20 20:17] VITALS: BP 109/45
--- NOTE | 2018-07-20 20:17 | NUR ---
RN NOTES Transportation arranged with José Miguel picker packer time 1615 for HD appointment at 1645.
[2018-07-20] MEDS: METOPROLOL TARTRATE 50 MG TABLET GT SCH (21:51)
[2018-07-21] MEDS: BLOOD SUGAR DIAGNOSTIC 1 EACH STRIP IN SCH ×4 (00:05→16:42)
[2018-07-21] MEDS: INSULIN REGULAR, HUMAN 100 UNIT/ML 3 ML VIAL SQ PRN ×3 (00:06→13:05)
[2018-07-21 00:08] VITALS: BP 105/53
[2018-07-21] MEDS: ALBUTEROL FS 2.5 MG/3 ML VIAL.NEB NEB SCH ×4 (00:45→19:30)
[2018-07-21] MEDS: IPRATROPIUM NEB FS 0.5 MG/2.5 ML AMPUL.NEB NEB SCH ×4 (00:45→19:30)
[2018-07-21] MEDS: PROSOURCE / PROSTAT (PYXIS) 30 ML UDC GT SCH ×4 (05:09→21:28)
[2018-07-21] MEDS: ESOMEPRAZOLE MAG TRIHYDRATE 20 MG CAPSULE.DR GT SCH (05:10)
[2018-07-21] MEDS: MAG HYDROX/AL HYDROX/SIMETH 30 ML UDC TP SCH ×4 (05:10→22:41)
[2018-07-21 06:04] VITALS: BP 107/49
[2018-07-21 07:43] VITALS: BP 162/88
[2018-07-21] MEDS: SEVELAMER CARBONATE 0.8 GM POWD.PACK GT SCH ×2 (08:00→12:59)
[2018-07-21] MEDS: ACIDOPHILUS/BULGARICUS 1 EACH TAB.CHEW GT SCH (09:00)
[2018-07-21] MEDS: ACETAMINOPHEN 650 MG/20 ML UDC- SA PATIENTS-PAIN ONLY GT SCH ×2 (09:00→21:28)
[2018-07-21] MEDS: NYSTATIN TOP POWDER 15 GM BOTTLE TP SCH ×4 (09:00→21:59)
[2018-07-21] MEDS: ASCORBIC ACID 500 MG TABLET GT SCH (09:00)
[2018-07-21] MEDS: hydrALAZINE HCL 25 MG TABLET GT SCH (09:00)
[2018-07-21] MEDS: HYDROGEL DRESSING 90 GM TUBE TP SCH ×2 (09:00→21:59)
[2018-07-21] MEDS: HEPARIN SODIUM, PORCINE 5000 UNITS/1 ML VIAL SQ SCH ×2 (09:00→21:29)
[2018-07-21] MEDS: POVIDONE-IODINE OINT 28.4 GM TUBE TP SCH ×2 (09:00→21:59)
[2018-07-21] MEDS: NYSTATIN/TRIAMCIN CREAM 15 GM TUBE TP SCH ×2 (09:00→21:59)
[2018-07-21] MEDS: HYDROGEN PEROXIDE 480 ML BOTTLE TP SCH ×2 (09:00→21:59)
[2018-07-21] MEDS: METOPROLOL TARTRATE 50 MG TABLET GT SCH ×2 (09:00→22:00)
[2018-07-21] MEDS: Z GUARD REMEDY 4 OZ OINT TP SCH ×2 (09:00→21:59)
[2018-07-21] MEDS: VIT B CMPLX 3/FA/VIT C/BIOTIN 1 TAB TABLET GT SCH (09:00)
[2018-07-21] MEDS: POLYVINYL ALCOHOL 15 ML BOTTLE EACHEYE SCH ×2 (09:00→21:27)
[2018-07-21] MEDS: INSULIN GLARGINE, 100 UNIT/ML CARTRIDGE SQ SCH ×2 (09:00→21:41)
[2018-07-21] MEDS: METOCLOPRAMIDE HCL 10 MG/10 ML UDC GT SCH ×2 (09:00→21:28)
[2018-07-21 12:00] VITALS: BP 130/82
[2018-07-21] MEDS: NEPRO 1,000 ML BOTTLE GT PRN (12:57)
[2018-07-21 17:00] VITALS: BP 119/54
--- NOTE | 2018-07-21 17:33 | NUR ---
RT Pt received trach'd and on [facility] vent w charted settings. Vent is plugged into red outlet w ambubag @ [employer]. Alarms are set and audible. Trach is secure and patent.. Hhn tx given and pt sx'd w no adverse reactions. No respiratory distress noted t/o shift. Will continue to monitor. Addendum: 07/21/18 at 1734 by JOHANA RING RT Amended: Links added.
--- NOTE | 2018-07-21 21:10 | NUR ---
Pt came back from [facility] s/p dialysis.BP 114/70.HR 79,Temp 98.2,O2 sats 100%.Will continue to monitor.
[2018-07-21 21:14] VITALS: BP 114/70
[2018-07-22] MEDS: BLOOD SUGAR DIAGNOSTIC 1 EACH STRIP IN SCH ×4 (00:35→18:06)
[2018-07-22] MEDS: INSULIN REGULAR, HUMAN 100 UNIT/ML 3 ML VIAL SQ PRN ×3 (00:36→18:06)
[2018-07-22] MEDS: IPRATROPIUM NEB FS 0.5 MG/2.5 ML AMPUL.NEB NEB SCH ×4 (00:39→19:31)
[2018-07-22] MEDS: ALBUTEROL FS 2.5 MG/3 ML VIAL.NEB NEB SCH ×4 (00:40→19:31)
[2018-07-22 00:41] VITALS: BP 137/63
[2018-07-22] MEDS: PROSOURCE / PROSTAT (PYXIS) 30 ML UDC GT SCH ×5 (05:48→21:02)
[2018-07-22] MEDS: MAG HYDROX/AL HYDROX/SIMETH 30 ML UDC TP SCH ×4 (05:49→22:11)
[2018-07-22] MEDS: ESOMEPRAZOLE MAG TRIHYDRATE 20 MG CAPSULE.DR GT SCH (05:49)
[2018-07-22 06:06] VITALS: BP 135/53
--- NOTE | 2018-07-22 07:28 | NUR ---
Trach pt received on a mechanical vent. Pt trach is secure. Vent is plugged into a red outlet, alarms are set and audible, and BMV is at bedside. Addendum: 07/22/18 at 0729 by ANNMARIE CARVER RT Amended: Links added.
[2018-07-22 07:38] VITALS: BP 122/78
[2018-07-22] MEDS: SEVELAMER CARBONATE 0.8 GM POWD.PACK GT SCH ×3 (08:00→18:06)
[2018-07-22] MEDS: POLYVINYL ALCOHOL 15 ML BOTTLE EACHEYE SCH ×2 (08:22→21:02)
[2018-07-22] MEDS: ACIDOPHILUS/BULGARICUS 1 EACH TAB.CHEW GT SCH ×2 (08:22→17:00)
[2018-07-22] MEDS: VIT B CMPLX 3/FA/VIT C/BIOTIN 1 TAB TABLET GT SCH (08:22)
[2018-07-22] MEDS: ASCORBIC ACID 500 MG TABLET GT SCH (08:23)
[2018-07-22] MEDS: METOCLOPRAMIDE HCL 10 MG/10 ML UDC GT SCH ×2 (08:23→21:02)
[2018-07-22] MEDS: ACETAMINOPHEN 650 MG/20 ML UDC- SA PATIENTS-PAIN ONLY GT SCH ×2 (08:23→21:02)
[2018-07-22] MEDS: HEPARIN SODIUM, PORCINE 5000 UNITS/1 ML VIAL SQ SCH ×2 (08:24→21:03)
[2018-07-22] MEDS: INSULIN GLARGINE, 100 UNIT/ML CARTRIDGE SQ SCH ×2 (08:43→22:10)
[2018-07-22] MEDS: HYDROGEL DRESSING 90 GM TUBE TP SCH ×2 (09:24→21:53)
[2018-07-22] MEDS: NYSTATIN/TRIAMCIN CREAM 15 GM TUBE TP SCH ×2 (09:25→21:53)
[2018-07-22] MEDS: POVIDONE-IODINE OINT 28.4 GM TUBE TP SCH ×2 (09:25→21:53)
[2018-07-22] MEDS: HYDROGEN PEROXIDE 480 ML BOTTLE TP SCH ×2 (09:25→21:53)
[2018-07-22] MEDS: NYSTATIN TOP POWDER 15 GM BOTTLE TP SCH ×4 (09:26→21:53)
[2018-07-22] MEDS: Z GUARD REMEDY 4 OZ OINT TP SCH ×2 (09:26→21:53)
[2018-07-22 13:30] VITALS: BP 130/77
[2018-07-22] MEDS: hydrALAZINE HCL 25 MG TABLET GT SCH (17:00)
[2018-07-22 18:32] VITALS: BP 109/46
[2018-07-22 19:48] VITALS: BP 102/34
--- NOTE | 2018-07-22 20:36 | NUR ---
PT RCVD TRACH'D ON MECHANICAL WITH CHARTED SETTINGS. TX GIVEN AND NO ADVERSE REACTION NOTED. SX DONE. PT TRACH PATENT AND SECURE. VENT PLUGGED INTO RED OUTLET. ALARMS ARE SET AND AUDIBLE. AMBU BAG AT BEDSIDE. WILL CONTINUE TO MONITOR. Addendum: 07/22/18 at 2035 by BETTY VILLEGAS RT Amended: Links added.
[2018-07-22] MEDS: METOPROLOL TARTRATE 50 MG TABLET GT SCH (21:15)
[2018-07-23 00:06] VITALS: BP 145/54
[2018-07-23] MEDS: BLOOD SUGAR DIAGNOSTIC 1 EACH STRIP IN SCH ×5 (00:48→23:33)
[2018-07-23] MEDS: INSULIN REGULAR, HUMAN 100 UNIT/ML 3 ML VIAL SQ PRN ×5 (00:50→23:34)
[2018-07-23] MEDS: IPRATROPIUM NEB FS 0.5 MG/2.5 ML AMPUL.NEB NEB SCH ×4 (01:07→19:30)
[2018-07-23] MEDS: ALBUTEROL FS 2.5 MG/3 ML VIAL.NEB NEB SCH ×4 (01:08→19:30)
[2018-07-23] MEDS: PROSOURCE / PROSTAT (PYXIS) 30 ML UDC GT SCH ×5 (05:16→21:14)
[2018-07-23] MEDS: MAG HYDROX/AL HYDROX/SIMETH 30 ML UDC TP SCH ×4 (05:16→23:13)
[2018-07-23] MEDS: ESOMEPRAZOLE MAG TRIHYDRATE 20 MG CAPSULE.DR GT SCH (05:16)
[2018-07-23] MEDS: NEPRO 1,000 ML BOTTLE GT PRN (06:05)
[2018-07-23 06:16] VITALS: BP 146/70
--- NOTE | 2018-07-23 07:25 | NUR ---
Female trach pt received unlabored on a mechanical vent. Pt trach is secure. Vent is plugged into a red outlet, alarms are set and audible, and BMV is at bedside. Addendum: 07/23/18 at 0726 by ANNMARIE CARVER RT Amended: Links added.
[2018-07-23 07:33] VITALS: BP 158/64
[2018-07-23] MEDS: SEVELAMER CARBONATE 0.8 GM POWD.PACK GT SCH ×3 (08:00→18:15)
[2018-07-23] MEDS: HEPARIN SODIUM, PORCINE 5000 UNITS/1 ML VIAL SQ SCH ×2 (09:00→21:15)
[2018-07-23] MEDS: INSULIN GLARGINE, 100 UNIT/ML CARTRIDGE SQ SCH ×2 (09:00→21:28)
[2018-07-23] MEDS: POLYVINYL ALCOHOL 15 ML BOTTLE EACHEYE SCH ×2 (09:06→21:14)
[2018-07-23] MEDS: METOPROLOL TARTRATE 50 MG TABLET GT SCH ×2 (09:07→21:27)
[2018-07-23] MEDS: ACIDOPHILUS/BULGARICUS 1 EACH TAB.CHEW GT SCH ×2 (09:07→17:00)
[2018-07-23] MEDS: hydrALAZINE HCL 25 MG TABLET GT SCH ×2 (09:07→17:00)
[2018-07-23] MEDS: VIT B CMPLX 3/FA/VIT C/BIOTIN 1 TAB TABLET GT SCH (09:08)
[2018-07-23] MEDS: ASCORBIC ACID 500 MG TABLET GT SCH (09:08)
[2018-07-23] MEDS: METOCLOPRAMIDE HCL 10 MG/10 ML UDC GT SCH ×2 (09:08→21:14)
[2018-07-23] MEDS: ACETAMINOPHEN 650 MG/20 ML UDC- SA PATIENTS-PAIN ONLY GT SCH ×2 (09:10→21:14)
[2018-07-23] MEDS: HYDROGEL DRESSING 90 GM TUBE TP SCH ×2 (09:40→21:15)
[2018-07-23] MEDS: POVIDONE-IODINE OINT 28.4 GM TUBE TP SCH ×2 (09:40→21:15)
[2018-07-23] MEDS: NYSTATIN/TRIAMCIN CREAM 15 GM TUBE TP SCH ×2 (09:40→21:15)
[2018-07-23] MEDS: HYDROGEN PEROXIDE 480 ML BOTTLE TP SCH ×2 (09:40→21:15)
[2018-07-23] MEDS: NYSTATIN TOP POWDER 15 GM BOTTLE TP SCH ×6 (09:40→21:16)
[2018-07-23] MEDS: Z GUARD REMEDY 4 OZ OINT TP SCH ×2 (09:40→21:16)
[2018-07-23 12:00] VITALS: BP 133/54
[2018-07-23 18:46] VITALS: BP 111/35
[2018-07-23 20:03] VITALS: BP 149/45
[2018-07-24 00:20] VITALS: BP 131/64
[2018-07-24] MEDS: ALBUTEROL FS 2.5 MG/3 ML VIAL.NEB NEB SCH ×4 (01:19→19:33)
[2018-07-24] MEDS: IPRATROPIUM NEB FS 0.5 MG/2.5 ML AMPUL.NEB NEB SCH ×4 (01:19→19:33)
[2018-07-24] MEDS: ESOMEPRAZOLE MAG TRIHYDRATE 20 MG CAPSULE.DR GT SCH (05:27)
[2018-07-24] MEDS: MAG HYDROX/AL HYDROX/SIMETH 30 ML UDC TP SCH ×4 (05:27→23:15)
[2018-07-24] MEDS: PROSOURCE / PROSTAT (PYXIS) 30 ML UDC GT SCH ×5 (05:27→21:10)
[2018-07-24] MEDS: BLOOD SUGAR DIAGNOSTIC 1 EACH STRIP IN SCH ×4 (05:28→23:27)
[2018-07-24] MEDS: INSULIN REGULAR, HUMAN 100 UNIT/ML 3 ML VIAL SQ PRN ×3 (05:29→23:29)
[2018-07-24 06:08] VITALS: BP 114/50
[2018-07-24] MEDS: SEVELAMER CARBONATE 0.8 GM POWD.PACK GT SCH ×3 (08:00→18:00)
[2018-07-24 08:02] VITALS: BP 160/77
--- NOTE | 2018-07-24 08:56 | NUR ---
RT PATIENT REC'D TRACH'D ON MECHANICAL VENT WITH CHARTED SETTINGS. NO SOB NOTED AT THIS TIME. TX GIVEN AND NO ADVERSE REACTION NOTED. SX DONE. PT TRACH PATENT AND SECURE. VENT PLUGGED INTO RED OUTLET. ALARMS ARE SET AND AUDIBLE. AMBU BAG AT BEDSIDE. WILL CONTINUE TO MONITOR. Addendum: 07/24/18 at 0857 by LONA PAGAN RT Amended: Links added.
[2018-07-24] MEDS: HEPARIN SODIUM, PORCINE 5000 UNITS/1 ML VIAL SQ SCH ×2 (09:13→21:11)
[2018-07-24] MEDS: POLYVINYL ALCOHOL 15 ML BOTTLE EACHEYE SCH ×2 (09:14→21:10)
[2018-07-24] MEDS: INSULIN GLARGINE, 100 UNIT/ML CARTRIDGE SQ SCH ×2 (09:14→21:19)
[2018-07-24] MEDS: ACETAMINOPHEN 650 MG/20 ML UDC- SA PATIENTS-PAIN ONLY GT SCH ×2 (09:14→21:11)
[2018-07-24] MEDS: ASCORBIC ACID 500 MG TABLET GT SCH (09:14)
[2018-07-24] MEDS: VIT B CMPLX 3/FA/VIT C/BIOTIN 1 TAB TABLET GT SCH (09:14)
[2018-07-24] MEDS: METOCLOPRAMIDE HCL 10 MG/10 ML UDC GT SCH ×2 (09:14→21:10)
[2018-07-24] MEDS: ACIDOPHILUS/BULGARICUS 1 EACH TAB.CHEW GT SCH ×2 (09:14→17:00)
[2018-07-24] MEDS: NYSTATIN/TRIAMCIN CREAM 15 GM TUBE TP SCH ×2 (09:56→21:57)
[2018-07-24] MEDS: Z GUARD REMEDY 4 OZ OINT TP SCH ×2 (09:56→21:58)
[2018-07-24] MEDS: HYDROGEL DRESSING 90 GM TUBE TP SCH ×2 (09:56→21:57)
[2018-07-24] MEDS: POVIDONE-IODINE OINT 28.4 GM TUBE TP SCH ×2 (09:56→21:57)
[2018-07-24] MEDS: HYDROGEN PEROXIDE 480 ML BOTTLE TP SCH ×2 (09:56→21:57)
[2018-07-24] MEDS: NYSTATIN TOP POWDER 15 GM BOTTLE TP SCH ×6 (09:56→21:58)
[2018-07-24 15:30] VITALS: BP 130/70
[2018-07-24] MEDS: hydrALAZINE HCL 25 MG TABLET GT SCH (17:00)
[2018-07-24] MEDS: NEPRO 1,000 ML BOTTLE GT PRN (18:01)
[2018-07-24 18:40] VITALS: BP 118/47
[2018-07-24 20:01] VITALS: BP 127/50
[2018-07-24] MEDS: METOPROLOL TARTRATE 50 MG TABLET GT SCH (21:18)
[2018-07-25] VITALS (7 sets, daily range): BP systolic 98–192; BP diastolic 50–85
[2018-07-25] MEDS: ALBUTEROL FS 2.5 MG/3 ML VIAL.NEB NEB SCH ×4 (01:22→19:58)
[2018-07-25] MEDS: IPRATROPIUM NEB FS 0.5 MG/2.5 ML AMPUL.NEB NEB SCH ×4 (01:22→19:54)
[2018-07-25] MEDS: ESOMEPRAZOLE MAG TRIHYDRATE 20 MG CAPSULE.DR GT SCH (05:40)
[2018-07-25] MEDS: BLOOD SUGAR DIAGNOSTIC 1 EACH STRIP IN SCH ×4 (05:40→23:38)
[2018-07-25] MEDS: MAG HYDROX/AL HYDROX/SIMETH 30 ML UDC TP SCH ×4 (05:40→22:33)
[2018-07-25] MEDS: PROSOURCE / PROSTAT (PYXIS) 30 ML UDC GT SCH ×5 (05:40→20:31)
[2018-07-25] MEDS: INSULIN REGULAR, HUMAN 100 UNIT/ML 3 ML VIAL SQ PRN ×4 (05:43→23:39)
[2018-07-25] MEDS: SEVELAMER CARBONATE 0.8 GM POWD.PACK GT SCH ×3 (08:00→17:47)
[2018-07-25] MEDS: HYDROGEL DRESSING 90 GM TUBE TP SCH ×2 (09:00→21:14)
[2018-07-25] MEDS: HYDROGEN PEROXIDE 480 ML BOTTLE TP SCH ×2 (09:00→21:14)
[2018-07-25] MEDS: hydrALAZINE HCL 25 MG TABLET GT SCH ×2 (09:00→16:18)
[2018-07-25] MEDS: NYSTATIN TOP POWDER 15 GM BOTTLE TP SCH ×6 (09:00→21:14)
[2018-07-25] MEDS: POVIDONE-IODINE OINT 28.4 GM TUBE TP SCH ×2 (09:00→21:14)
[2018-07-25] MEDS: Z GUARD REMEDY 4 OZ OINT TP SCH ×2 (09:00→21:14)
[2018-07-25] MEDS: METOPROLOL TARTRATE 50 MG TABLET GT SCH ×2 (09:00→21:16)
[2018-07-25] MEDS: NYSTATIN/TRIAMCIN CREAM 15 GM TUBE TP SCH ×2 (09:00→21:14)
[2018-07-25] MEDS: POLYVINYL ALCOHOL 15 ML BOTTLE EACHEYE SCH ×2 (09:04→20:31)
[2018-07-25] MEDS: ACIDOPHILUS/BULGARICUS 1 EACH TAB.CHEW GT SCH ×2 (09:05→16:18)
[2018-07-25] MEDS: VIT B CMPLX 3/FA/VIT C/BIOTIN 1 TAB TABLET GT SCH (09:05)
[2018-07-25] MEDS: METOCLOPRAMIDE HCL 10 MG/10 ML UDC GT SCH ×2 (09:11→20:31)
[2018-07-25] MEDS: ACETAMINOPHEN 650 MG/20 ML UDC- SA PATIENTS-PAIN ONLY GT SCH ×2 (09:12→20:32)
[2018-07-25] MEDS: ASCORBIC ACID 500 MG TABLET GT SCH (09:14)
[2018-07-25] MEDS: HEPARIN SODIUM, PORCINE 5000 UNITS/1 ML VIAL SQ SCH ×2 (09:15→20:32)
[2018-07-25] MEDS: INSULIN GLARGINE, 100 UNIT/ML CARTRIDGE SQ SCH ×2 (09:16→21:53)
[2018-07-25] MEDS: NEPRO 1,000 ML BOTTLE GT PRN (15:08)
[2018-07-26 00:38] VITALS: BP 125/66
[2018-07-26] MEDS: ALBUTEROL FS 2.5 MG/3 ML VIAL.NEB NEB SCH ×4 (00:50→19:36)
[2018-07-26] MEDS: IPRATROPIUM NEB FS 0.5 MG/2.5 ML AMPUL.NEB NEB SCH ×4 (00:50→19:36)
[2018-07-26] MEDS: ESOMEPRAZOLE MAG TRIHYDRATE 20 MG CAPSULE.DR GT SCH (05:04)
[2018-07-26] MEDS: PROSOURCE / PROSTAT (PYXIS) 30 ML UDC GT SCH ×5 (05:04→21:00)
[2018-07-26] MEDS: MAG HYDROX/AL HYDROX/SIMETH 30 ML UDC TP SCH ×4 (05:04→23:44)
[2018-07-26] MEDS: BLOOD SUGAR DIAGNOSTIC 1 EACH STRIP IN SCH ×4 (05:56→23:44)
[2018-07-26] MEDS: INSULIN REGULAR, HUMAN 100 UNIT/ML 3 ML VIAL SQ PRN ×4 (05:57→23:45)
[2018-07-26 06:08] VITALS: BP 130/64
--- NOTE | 2018-07-26 07:37 | NUR ---
Female trach pt received unlabored on a mechanical vent. Pt trach is secure. Vent is plugged into a red outlet, alarms are set and audible, and BMV is at bedside. Addendum: 07/26/18 at 0738 by ANNMARIE CARVER RT Amended: Links added.
[2018-07-26] MEDS: ACIDOPHILUS/BULGARICUS 1 EACH TAB.CHEW GT SCH ×2 (08:03→16:52)
[2018-07-26] MEDS: SEVELAMER CARBONATE 0.8 GM POWD.PACK GT SCH ×3 (08:03→17:00)
[2018-07-26] MEDS: hydrALAZINE HCL 25 MG TABLET GT SCH ×2 (08:03→16:57)
[2018-07-26] MEDS: METOPROLOL TARTRATE 50 MG TABLET GT SCH ×2 (08:03→21:05)
[2018-07-26] MEDS: POLYVINYL ALCOHOL 15 ML BOTTLE EACHEYE SCH ×2 (08:03→21:00)
[2018-07-26] MEDS: METOCLOPRAMIDE HCL 10 MG/10 ML UDC GT SCH ×2 (08:04→21:00)
[2018-07-26] MEDS: VIT B CMPLX 3/FA/VIT C/BIOTIN 1 TAB TABLET GT SCH (08:04)
[2018-07-26] MEDS: HYDROGEL DRESSING 90 GM TUBE TP SCH ×2 (08:05→21:04)
[2018-07-26] MEDS: POVIDONE-IODINE OINT 28.4 GM TUBE TP SCH ×2 (08:05→21:04)
[2018-07-26] MEDS: ACETAMINOPHEN 650 MG/20 ML UDC- SA PATIENTS-PAIN ONLY GT SCH ×2 (08:05→21:01)
[2018-07-26] MEDS: HYDROGEN PEROXIDE 480 ML BOTTLE TP SCH ×2 (08:05→21:04)
[2018-07-26] MEDS: ASCORBIC ACID 500 MG TABLET GT SCH (08:05)
[2018-07-26] MEDS: Z GUARD REMEDY 4 OZ OINT TP SCH ×2 (08:06→21:04)
[2018-07-26] MEDS: NYSTATIN/TRIAMCIN CREAM 15 GM TUBE TP SCH ×2 (08:06→21:04)
[2018-07-26] MEDS: NYSTATIN TOP POWDER 15 GM BOTTLE TP SCH ×6 (08:06→21:04)
[2018-07-26] MEDS: HEPARIN SODIUM, PORCINE 5000 UNITS/1 ML VIAL SQ SCH ×2 (08:13→21:03)
[2018-07-26] MEDS: INSULIN GLARGINE, 100 UNIT/ML CARTRIDGE SQ SCH ×2 (08:14→21:05)
--- NOTE | 2018-07-26 10:00 | NUR ---
Pt's G-tube came out with broken balloon. G-tube was replaced. Pt tolerated well. Informed RAW SAMPLER Hellen Leija and received order to do KUB to verify G-tube placement.
[2018-07-26 10:42] VITALS: BP 144/55
[2018-07-26] MEDS ORDERED: DIATR MEGLU/DIATRIZOATE SODIUM 30 ML BOTTLE (GASTROGRAPHIN) ONE (11:05)
[2018-07-26 12:01] VITALS: BP 135/60
[2018-07-26 18:16] VITALS: BP 159/76
[2018-07-26 19:44] VITALS: BP 158/57
[2018-07-27 00:17] VITALS: BP 142/69
[2018-07-27] MEDS: IPRATROPIUM NEB FS 0.5 MG/2.5 ML AMPUL.NEB NEB SCH ×4 (00:35→19:59)
[2018-07-27] MEDS: ALBUTEROL FS 2.5 MG/3 ML VIAL.NEB NEB SCH ×4 (00:35→19:59)
[2018-07-27] MEDS: MAG HYDROX/AL HYDROX/SIMETH 30 ML UDC TP SCH ×4 (05:54→23:45)
[2018-07-27] MEDS: PROSOURCE / PROSTAT (PYXIS) 30 ML UDC GT SCH ×5 (05:54→21:00)
[2018-07-27] MEDS: ESOMEPRAZOLE MAG TRIHYDRATE 20 MG CAPSULE.DR GT SCH (05:54)
[2018-07-27] MEDS: BLOOD SUGAR DIAGNOSTIC 1 EACH STRIP IN SCH ×4 (06:09→23:45)
[2018-07-27] MEDS: INSULIN REGULAR, HUMAN 100 UNIT/ML 3 ML VIAL SQ PRN ×3 (06:10→23:46)
[2018-07-27 06:21] VITALS: BP 138/78
[2018-07-27 07:22] VITALS: BP 130/53
[2018-07-27] MEDS: METOCLOPRAMIDE HCL 10 MG/10 ML UDC GT SCH ×2 (09:07→21:00)
[2018-07-27] MEDS: POLYVINYL ALCOHOL 15 ML BOTTLE EACHEYE SCH ×2 (09:07→21:00)
[2018-07-27] MEDS: ACIDOPHILUS/BULGARICUS 1 EACH TAB.CHEW GT SCH ×2 (09:07→17:38)
[2018-07-27] MEDS: VIT B CMPLX 3/FA/VIT C/BIOTIN 1 TAB TABLET GT SCH (09:07)
[2018-07-27] MEDS: SEVELAMER CARBONATE 0.8 GM POWD.PACK GT SCH ×2 (09:07→17:38)
[2018-07-27] MEDS: ASCORBIC ACID 500 MG TABLET GT SCH (09:08)
[2018-07-27] MEDS: ACETAMINOPHEN 650 MG/20 ML UDC- SA PATIENTS-PAIN ONLY GT SCH ×2 (09:08→21:01)
[2018-07-27] MEDS: HEPARIN SODIUM, PORCINE 5000 UNITS/1 ML VIAL SQ SCH ×2 (09:08→21:01)
[2018-07-27] MEDS: INSULIN GLARGINE, 100 UNIT/ML CARTRIDGE SQ SCH ×2 (09:09→21:06)
[2018-07-27] MEDS: Z GUARD REMEDY 4 OZ OINT TP SCH ×2 (10:00→21:02)
[2018-07-27] MEDS: POVIDONE-IODINE OINT 28.4 GM TUBE TP SCH ×2 (10:00→21:01)
[2018-07-27] MEDS: NYSTATIN/TRIAMCIN CREAM 15 GM TUBE TP SCH ×2 (10:00→21:02)
[2018-07-27] MEDS: NYSTATIN TOP POWDER 15 GM BOTTLE TP SCH ×6 (10:00→21:02)
[2018-07-27] MEDS: HYDROGEN PEROXIDE 480 ML BOTTLE TP SCH ×2 (10:00→21:01)
[2018-07-27] MEDS: HYDROGEL DRESSING 90 GM TUBE TP SCH ×2 (10:00→21:01)
--- NOTE | 2018-07-27 13:40 | NUR ---
Dr Wall ordered to continue Prostat and decrease Sevelamer from TID to BID per recommendation from [facility].
[2018-07-27 14:30] VITALS: BP 141/68
[2018-07-27] MEDS: hydrALAZINE HCL 25 MG TABLET GT SCH (17:38)
[2018-07-27 18:29] VITALS: BP 138/53
[2018-07-27] MEDS: METOPROLOL TARTRATE 50 MG TABLET GT SCH (21:02)
[2018-07-27 21:42] VITALS: BP 130/79
[2018-07-28] MEDS: IPRATROPIUM NEB FS 0.5 MG/2.5 ML AMPUL.NEB NEB SCH ×4 (01:26→19:35)
[2018-07-28] MEDS: ALBUTEROL FS 2.5 MG/3 ML VIAL.NEB NEB SCH ×4 (01:26→19:35)
[2018-07-28 03:29] VITALS: BP 130/62
[2018-07-28] MEDS: PROSOURCE / PROSTAT (PYXIS) 30 ML UDC GT SCH ×5 (05:00→21:29)
[2018-07-28] MEDS: MAG HYDROX/AL HYDROX/SIMETH 30 ML UDC TP SCH ×4 (05:00→23:04)
[2018-07-28 06:07] VITALS: BP 124/69
[2018-07-28] MEDS: ESOMEPRAZOLE MAG TRIHYDRATE 20 MG CAPSULE.DR GT SCH (06:08)
[2018-07-28] MEDS: BLOOD SUGAR DIAGNOSTIC 1 EACH STRIP IN SCH ×4 (06:08→23:53)
[2018-07-28] MEDS: INSULIN REGULAR, HUMAN 100 UNIT/ML 3 ML VIAL SQ PRN ×4 (06:09→23:55)
[2018-07-28 07:33] VITALS: BP 105/53
[2018-07-28] MEDS: VIT B CMPLX 3/FA/VIT C/BIOTIN 1 TAB TABLET GT SCH (09:00)
[2018-07-28] MEDS: METOPROLOL TARTRATE 50 MG TABLET GT SCH ×2 (09:00→21:43)
[2018-07-28] MEDS: hydrALAZINE HCL 25 MG TABLET GT SCH ×2 (09:00→16:41)
[2018-07-28] MEDS: POLYVINYL ALCOHOL 15 ML BOTTLE EACHEYE SCH ×2 (09:55→21:29)
[2018-07-28] MEDS: ACIDOPHILUS/BULGARICUS 1 EACH TAB.CHEW GT SCH ×2 (09:55→16:42)
[2018-07-28] MEDS: ACETAMINOPHEN 650 MG/20 ML UDC- SA PATIENTS-PAIN ONLY GT SCH ×2 (09:56→21:29)
[2018-07-28] MEDS: ASCORBIC ACID 500 MG TABLET GT SCH (09:56)
[2018-07-28] MEDS: METOCLOPRAMIDE HCL 10 MG/10 ML UDC GT SCH ×2 (09:56→21:29)
[2018-07-28] MEDS: SEVELAMER CARBONATE 0.8 GM POWD.PACK GT SCH ×2 (09:56→16:42)
[2018-07-28] MEDS: HEPARIN SODIUM, PORCINE 5000 UNITS/1 ML VIAL SQ SCH ×2 (09:57→21:31)
[2018-07-28] MEDS: INSULIN GLARGINE, 100 UNIT/ML CARTRIDGE SQ SCH ×2 (09:58→21:44)
[2018-07-28] MEDS: NYSTATIN TOP POWDER 15 GM BOTTLE TP SCH ×6 (10:56→22:00)
[2018-07-28] MEDS: POVIDONE-IODINE OINT 28.4 GM TUBE TP SCH ×2 (10:56→22:00)
[2018-07-28] MEDS: HYDROGEN PEROXIDE 480 ML BOTTLE TP SCH ×2 (10:56→22:00)
[2018-07-28] MEDS: NYSTATIN/TRIAMCIN CREAM 15 GM TUBE TP SCH ×2 (10:56→22:00)
[2018-07-28] MEDS: Z GUARD REMEDY 4 OZ OINT TP SCH ×2 (10:56→22:00)
[2018-07-28] MEDS: HYDROGEL DRESSING 90 GM TUBE TP SCH ×2 (10:56→22:00)
[2018-07-28 12:00] VITALS: BP 104/49
[2018-07-28] MEDS: NEPRO 1,000 ML BOTTLE GT PRN (12:08)
[2018-07-28 18:00] VITALS: BP 119/54
[2018-07-28 20:29] VITALS: BP 126/68
[2018-07-29 00:10] VITALS: BP 111/61
[2018-07-29] MEDS: IPRATROPIUM NEB FS 0.5 MG/2.5 ML AMPUL.NEB NEB SCH ×4 (00:50→19:29)
[2018-07-29] MEDS: ALBUTEROL FS 2.5 MG/3 ML VIAL.NEB NEB SCH ×4 (00:50→19:29)
--- NOTE | 2018-07-29 01:34 | NUR ---
PT RCVD TRACH'D ON MECHANICAL WITH CHARTED SETTINGS. TX GIVEN AND NO ADVERSE REACTION NOTED. SX DONE. PT TRACH PATENT AND SECURE. VENT PLUGGED INTO RED OUTLET. ALARMS ARE SET AND AUDIBLE. AMBU BAG AT BEDSIDE. WILL CONTINUE TO MONITOR. Addendum: 07/29/18 at 0134 by BETTY VILLEGAS RT Amended: Links added.
[2018-07-29] MEDS: PROSOURCE / PROSTAT (PYXIS) 30 ML UDC GT SCH ×5 (05:34→21:30)
[2018-07-29] MEDS: MAG HYDROX/AL HYDROX/SIMETH 30 ML UDC TP SCH ×4 (05:34→23:51)
[2018-07-29] MEDS: BLOOD SUGAR DIAGNOSTIC 1 EACH STRIP IN SCH ×4 (05:35→23:51)
[2018-07-29] MEDS: ESOMEPRAZOLE MAG TRIHYDRATE 20 MG CAPSULE.DR GT SCH (05:35)
[2018-07-29] MEDS: INSULIN REGULAR, HUMAN 100 UNIT/ML 3 ML VIAL SQ PRN ×3 (05:37→23:52)
[2018-07-29 06:09] VITALS: BP 112/58
--- NOTE | 2018-07-29 07:27 | NUR ---
Female trach pt received unlabored on a mechanical vent. Pt trach is secure. Vent is plugged into a red outlet, alarms are set and audible, and BMV is at bedside. Addendum: 07/29/18 at 0729 by ANNMARIE CARVER RT Amended: Links added.
[2018-07-29 07:28] VITALS: BP 154/57
[2018-07-29] MEDS: VIT B CMPLX 3/FA/VIT C/BIOTIN 1 TAB TABLET GT SCH (08:50)
[2018-07-29] MEDS: METOCLOPRAMIDE HCL 10 MG/10 ML UDC GT SCH ×2 (08:50→21:30)
[2018-07-29] MEDS: POLYVINYL ALCOHOL 15 ML BOTTLE EACHEYE SCH ×2 (08:50→21:30)
[2018-07-29] MEDS: SEVELAMER CARBONATE 0.8 GM POWD.PACK GT SCH ×2 (08:50→17:00)
[2018-07-29] MEDS: ACETAMINOPHEN 650 MG/20 ML UDC- SA PATIENTS-PAIN ONLY GT SCH ×2 (08:50→21:30)
[2018-07-29] MEDS: ASCORBIC ACID 500 MG TABLET GT SCH (08:50)
[2018-07-29] MEDS: ACIDOPHILUS/BULGARICUS 1 EACH TAB.CHEW GT SCH ×2 (08:50→17:00)
[2018-07-29] MEDS: HEPARIN SODIUM, PORCINE 5000 UNITS/1 ML VIAL SQ SCH ×2 (08:51→21:31)
[2018-07-29] MEDS: INSULIN GLARGINE, 100 UNIT/ML CARTRIDGE SQ SCH ×2 (08:51→21:33)
[2018-07-29] MEDS: HYDROGEL DRESSING 90 GM TUBE TP SCH ×2 (09:51→22:00)
[2018-07-29] MEDS: POVIDONE-IODINE OINT 28.4 GM TUBE TP SCH ×2 (09:51→22:00)
[2018-07-29] MEDS: NYSTATIN/TRIAMCIN CREAM 15 GM TUBE TP SCH ×2 (09:52→22:00)
[2018-07-29] MEDS: NYSTATIN TOP POWDER 15 GM BOTTLE TP SCH ×6 (09:52→22:00)
[2018-07-29] MEDS: HYDROGEN PEROXIDE 480 ML BOTTLE TP SCH ×2 (09:52→22:00)
[2018-07-29] MEDS: Z GUARD REMEDY 4 OZ OINT TP SCH ×2 (09:52→22:00)
[2018-07-29 15:45] VITALS: BP 130/77
[2018-07-29] MEDS: hydrALAZINE HCL 25 MG TABLET GT SCH (17:00)
[2018-07-29 18:00] VITALS: BP 164/70
[2018-07-29] MEDS: CLONIDINE HCL 0.2 MG TABLET GT PRN (18:59)
[2018-07-29 20:57] VITALS: BP 136/56
[2018-07-29] MEDS: METOPROLOL TARTRATE 50 MG TABLET GT SCH (21:31)
[2018-07-30 00:20] VITALS: BP 126/53
[2018-07-30] MEDS: IPRATROPIUM NEB FS 0.5 MG/2.5 ML AMPUL.NEB NEB SCH ×4 (00:52→19:03)
[2018-07-30] MEDS: ALBUTEROL FS 2.5 MG/3 ML VIAL.NEB NEB SCH ×4 (00:52→19:03)
[2018-07-30] MEDS: NEPRO 1,000 ML BOTTLE GT PRN (03:30)
[2018-07-30] MEDS: PROSOURCE / PROSTAT (PYXIS) 30 ML UDC GT SCH ×5 (05:34→21:32)
[2018-07-30] MEDS: BLOOD SUGAR DIAGNOSTIC 1 EACH STRIP IN SCH ×4 (05:35→23:19)
[2018-07-30] MEDS: MAG HYDROX/AL HYDROX/SIMETH 30 ML UDC TP SCH ×4 (05:35→23:19)
[2018-07-30] MEDS: ESOMEPRAZOLE MAG TRIHYDRATE 20 MG CAPSULE.DR GT SCH (05:35)
[2018-07-30] MEDS: INSULIN REGULAR, HUMAN 100 UNIT/ML 3 ML VIAL SQ PRN ×4 (05:36→23:21)
[2018-07-30 06:05] VITALS: BP 127/56
[2018-07-30 07:48] VITALS: BP 150/57
[2018-07-30] MEDS: INSULIN GLARGINE, 100 UNIT/ML CARTRIDGE SQ SCH ×2 (09:47→21:37)
[2018-07-30] MEDS: hydrALAZINE HCL 25 MG TABLET GT SCH ×2 (09:48→17:00)
[2018-07-30] MEDS: POLYVINYL ALCOHOL 15 ML BOTTLE EACHEYE SCH ×2 (09:48→21:32)
[2018-07-30] MEDS: METOPROLOL TARTRATE 50 MG TABLET GT SCH ×2 (09:48→21:37)
[2018-07-30] MEDS: ACIDOPHILUS/BULGARICUS 1 EACH TAB.CHEW GT SCH ×2 (09:48→17:00)
[2018-07-30] MEDS: HEPARIN SODIUM, PORCINE 5000 UNITS/1 ML VIAL SQ SCH ×2 (09:48→21:33)
[2018-07-30] MEDS: ASCORBIC ACID 500 MG TABLET GT SCH (09:49)
[2018-07-30] MEDS: ACETAMINOPHEN 650 MG/20 ML UDC- SA PATIENTS-PAIN ONLY GT SCH ×2 (09:49→21:33)
[2018-07-30] MEDS: METOCLOPRAMIDE HCL 10 MG/10 ML UDC GT SCH ×2 (09:49→21:32)
[2018-07-30] MEDS: SEVELAMER CARBONATE 0.8 GM POWD.PACK GT SCH ×2 (09:49→17:00)
[2018-07-30] MEDS: VIT B CMPLX 3/FA/VIT C/BIOTIN 1 TAB TABLET GT SCH (09:49)
[2018-07-30] MEDS: NYSTATIN/TRIAMCIN CREAM 15 GM TUBE TP SCH ×2 (10:20→22:00)
[2018-07-30] MEDS: HYDROGEL DRESSING 90 GM TUBE TP SCH ×2 (10:20→22:00)
[2018-07-30] MEDS: HYDROGEN PEROXIDE 480 ML BOTTLE TP SCH ×2 (10:20→22:00)
[2018-07-30] MEDS: POVIDONE-IODINE OINT 28.4 GM TUBE TP SCH ×2 (10:20→22:00)
[2018-07-30] MEDS: NYSTATIN TOP POWDER 15 GM BOTTLE TP SCH ×6 (10:20→22:00)
[2018-07-30] MEDS: Z GUARD REMEDY 4 OZ OINT TP SCH ×2 (10:20→22:00)
[2018-07-30 12:00] VITALS: BP 119/40
[2018-07-30 18:57] VITALS: BP 140/64
[2018-07-30 19:33] VITALS: BP 141/66
[2018-07-31 00:10] VITALS: BP 121/61
[2018-07-31] MEDS: IPRATROPIUM NEB FS 0.5 MG/2.5 ML AMPUL.NEB NEB SCH ×4 (01:31→19:44)
[2018-07-31] MEDS: ALBUTEROL FS 2.5 MG/3 ML VIAL.NEB NEB SCH ×4 (01:31→19:44)
[2018-07-31] MEDS: PROSOURCE / PROSTAT (PYXIS) 30 ML UDC GT SCH ×5 (05:21→20:15)
[2018-07-31] MEDS: BLOOD SUGAR DIAGNOSTIC 1 EACH STRIP IN SCH ×4 (05:21→23:09)
[2018-07-31] MEDS: MAG HYDROX/AL HYDROX/SIMETH 30 ML UDC TP SCH ×4 (05:21→22:47)
[2018-07-31] MEDS: ESOMEPRAZOLE MAG TRIHYDRATE 20 MG CAPSULE.DR GT SCH (05:21)
[2018-07-31] MEDS: INSULIN REGULAR, HUMAN 100 UNIT/ML 3 ML VIAL SQ PRN ×3 (05:26→23:11)
[2018-07-31 06:13] VITALS: BP 130/62
[2018-07-31 07:37] VITALS: BP 122/58
[2018-07-31] MEDS: HEPARIN SODIUM, PORCINE 5000 UNITS/1 ML VIAL SQ SCH ×2 (09:15→20:16)
[2018-07-31] MEDS: ACIDOPHILUS/BULGARICUS 1 EACH TAB.CHEW GT SCH ×2 (09:15→17:00)
[2018-07-31] MEDS: INSULIN GLARGINE, 100 UNIT/ML CARTRIDGE SQ SCH ×2 (09:15→21:49)
[2018-07-31] MEDS: SEVELAMER CARBONATE 0.8 GM POWD.PACK GT SCH ×2 (09:15→17:00)
[2018-07-31] MEDS: POLYVINYL ALCOHOL 15 ML BOTTLE EACHEYE SCH ×2 (09:15→20:15)
[2018-07-31] MEDS: VIT B CMPLX 3/FA/VIT C/BIOTIN 1 TAB TABLET GT SCH (09:15)
[2018-07-31] MEDS: METOCLOPRAMIDE HCL 10 MG/10 ML UDC GT SCH ×2 (09:15→20:15)
[2018-07-31] MEDS: ASCORBIC ACID 500 MG TABLET GT SCH (09:16)
[2018-07-31] MEDS: ACETAMINOPHEN 650 MG/20 ML UDC- SA PATIENTS-PAIN ONLY GT SCH ×2 (09:16→20:15)
[2018-07-31] MEDS: HYDROGEL DRESSING 90 GM TUBE TP SCH ×2 (09:54→20:49)
[2018-07-31] MEDS: HYDROGEN PEROXIDE 480 ML BOTTLE TP SCH ×2 (09:54→20:49)
[2018-07-31] MEDS: NYSTATIN TOP POWDER 15 GM BOTTLE TP SCH ×6 (09:54→20:49)
[2018-07-31] MEDS: NYSTATIN/TRIAMCIN CREAM 15 GM TUBE TP SCH ×2 (09:54→20:49)
[2018-07-31] MEDS: POVIDONE-IODINE OINT 28.4 GM TUBE TP SCH ×2 (09:54→20:48)
[2018-07-31] MEDS: Z GUARD REMEDY 4 OZ OINT TP SCH ×2 (09:54→20:49)
--- NOTE | 2018-07-31 10:30 | NUR ---
Left for dialysis AV fistula in the R forearm intact, + for bruit. VS 122/58, 78, 99.6, 12. Patient stable connected to ventilator, ambubag and cushion sent with patient. Report given to ambulance staff.
[2018-07-31 15:10] VITALS: BP 124/44
--- NOTE | 2018-07-31 15:20 | NUR ---
Resident return back from dialysis, condition stable. RFA fistula with dry dressing, no bleeding. + for briut and trill. V/S 126/62, 99.1, 76.16, 96-97% O2 sat on ventilator.
[2018-07-31] MEDS: hydrALAZINE HCL 25 MG TABLET GT SCH (17:00)
[2018-07-31] MEDS: NEPRO 1,000 ML BOTTLE GT PRN (18:01)
[2018-07-31 19:07] VITALS: BP 139/60
[2018-07-31 19:31] VITALS: BP 149/52
[2018-07-31] MEDS: METOPROLOL TARTRATE 50 MG TABLET GT SCH (21:48)
[2018-08-01] MEDS: IPRATROPIUM NEB FS 0.5 MG/2.5 ML AMPUL.NEB NEB SCH ×4 (00:35→19:22)
[2018-08-01] MEDS: ALBUTEROL FS 2.5 MG/3 ML VIAL.NEB NEB SCH ×4 (00:35→19:22)
[2018-08-01 00:37] VITALS: BP 130/54
[2018-08-01] MEDS: MAG HYDROX/AL HYDROX/SIMETH 30 ML UDC TP SCH ×4 (05:10→23:03)
[2018-08-01] MEDS: PROSOURCE / PROSTAT (PYXIS) 30 ML UDC GT SCH ×5 (05:10→20:27)
[2018-08-01] MEDS: ESOMEPRAZOLE MAG TRIHYDRATE 20 MG CAPSULE.DR GT SCH (05:10)
[2018-08-01] MEDS: BLOOD SUGAR DIAGNOSTIC 1 EACH STRIP IN SCH ×4 (06:01→23:03)
[2018-08-01] MEDS: INSULIN REGULAR, HUMAN 100 UNIT/ML 3 ML VIAL SQ PRN ×4 (06:02→23:04)
[2018-08-01 06:19] VITALS: BP 134/60
[2018-08-01 07:44] VITALS: BP 142/74
[2018-08-01] MEDS: ACIDOPHILUS/BULGARICUS 1 EACH TAB.CHEW GT SCH ×2 (08:41→16:44)
[2018-08-01] MEDS: METOPROLOL TARTRATE 50 MG TABLET GT SCH ×2 (08:41→21:04)
[2018-08-01] MEDS: hydrALAZINE HCL 25 MG TABLET GT SCH ×2 (08:41→16:44)
[2018-08-01] MEDS: POLYVINYL ALCOHOL 15 ML BOTTLE EACHEYE SCH ×2 (08:41→20:27)
[2018-08-01] MEDS: VIT B CMPLX 3/FA/VIT C/BIOTIN 1 TAB TABLET GT SCH (08:42)
[2018-08-01] MEDS: ASCORBIC ACID 500 MG TABLET GT SCH (08:42)
[2018-08-01] MEDS: SEVELAMER CARBONATE 0.8 GM POWD.PACK GT SCH ×2 (08:42→16:44)
[2018-08-01] MEDS: METOCLOPRAMIDE HCL 10 MG/10 ML UDC GT SCH ×2 (08:42→20:27)
[2018-08-01] MEDS: ACETAMINOPHEN 650 MG/20 ML UDC- SA PATIENTS-PAIN ONLY GT SCH ×2 (08:42→20:27)
[2018-08-01] MEDS: INSULIN GLARGINE, 100 UNIT/ML CARTRIDGE SQ SCH ×2 (08:43→21:51)
[2018-08-01] MEDS: HEPARIN SODIUM, PORCINE 5000 UNITS/1 ML VIAL SQ SCH ×2 (08:43→20:28)
[2018-08-01] MEDS: NYSTATIN/TRIAMCIN CREAM 15 GM TUBE TP SCH ×2 (09:00→21:04)
[2018-08-01] MEDS: POVIDONE-IODINE OINT 28.4 GM TUBE TP SCH ×2 (09:00→21:03)
[2018-08-01] MEDS: HYDROGEL DRESSING 90 GM TUBE TP SCH ×2 (09:00→21:03)
[2018-08-01] MEDS: Z GUARD REMEDY 4 OZ OINT TP SCH ×2 (09:00→21:04)
[2018-08-01] MEDS: NYSTATIN TOP POWDER 15 GM BOTTLE TP SCH ×6 (09:00→21:04)
[2018-08-01] MEDS: HYDROGEN PEROXIDE 480 ML BOTTLE TP SCH ×2 (09:00→21:03)
[2018-08-01 14:56] VITALS: BP 130/75
[2018-08-01] MEDS: NEPRO 1,000 ML BOTTLE GT PRN (17:57)
[2018-08-01 18:39] VITALS: BP 139/90
--- NOTE | 2018-08-01 19:22 | NUR ---
RT NOTE: RECEIVED TRACH PT ON [facility] VENT ON NOTED SETTINGS PER MD ORDERS. TRACH IS PATENT AND SECURED. GYMNASIUM TEACHER DONE. Q6 BREATHING TX GIVEN WITH NO ADVERSE REACTION NOTED. SX DONE PRN. VENT PLUGGED INTO RED OUTLET. ALARMS ON AND AUDIBLE. NACHO BAG @ BEDSIDE. NO RESP DISTRESS AT THIS TIME. WILL CONT TO MONITOR PT. Addendum: 08/02/18 at 0159 by FREDDY PALMA RT Amended: Links added.
[2018-08-01 20:16] VITALS: BP 129/74
[2018-08-02 00:31] VITALS: BP 132/72
[2018-08-02] MEDS: IPRATROPIUM NEB FS 0.5 MG/2.5 ML AMPUL.NEB NEB SCH ×4 (00:46→19:53)
[2018-08-02] MEDS: ALBUTEROL FS 2.5 MG/3 ML VIAL.NEB NEB SCH ×4 (00:46→19:53)
[2018-08-02] MEDS: MAG HYDROX/AL HYDROX/SIMETH 30 ML UDC TP SCH ×4 (05:12→22:24)
[2018-08-02] MEDS: ESOMEPRAZOLE MAG TRIHYDRATE 20 MG CAPSULE.DR GT SCH (05:12)
[2018-08-02] MEDS: PROSOURCE / PROSTAT (PYXIS) 30 ML UDC GT SCH ×5 (05:12→20:16)
[2018-08-02] MEDS: BLOOD SUGAR DIAGNOSTIC 1 EACH STRIP IN SCH ×4 (05:56→23:11)
[2018-08-02] MEDS: INSULIN REGULAR, HUMAN 100 UNIT/ML 3 ML VIAL SQ PRN ×2 (05:57→23:12)
[2018-08-02 06:35] VITALS: BP 128/76
[2018-08-02 07:31] VITALS: BP 119/55
[2018-08-02] MEDS: METOCLOPRAMIDE HCL 10 MG/10 ML UDC GT SCH ×2 (09:00→20:16)
[2018-08-02] MEDS: NYSTATIN TOP POWDER 15 GM BOTTLE TP SCH ×6 (09:00→21:08)
[2018-08-02] MEDS: POVIDONE-IODINE OINT 28.4 GM TUBE TP SCH ×2 (09:00→21:07)
[2018-08-02] MEDS: METOPROLOL TARTRATE 50 MG TABLET GT SCH ×2 (09:00→21:10)
[2018-08-02] MEDS: HEPARIN SODIUM, PORCINE 5000 UNITS/1 ML VIAL SQ SCH ×2 (09:00→20:17)
[2018-08-02] MEDS: hydrALAZINE HCL 25 MG TABLET GT SCH ×2 (09:00→17:00)
[2018-08-02] MEDS: INSULIN GLARGINE, 100 UNIT/ML CARTRIDGE SQ SCH ×2 (09:00→21:34)
[2018-08-02] MEDS: Z GUARD REMEDY 4 OZ OINT TP SCH ×2 (09:00→21:08)
[2018-08-02] MEDS: HYDROGEL DRESSING 90 GM TUBE TP SCH ×2 (09:00→21:07)
[2018-08-02] MEDS: VIT B CMPLX 3/FA/VIT C/BIOTIN 1 TAB TABLET GT SCH (09:00)
[2018-08-02] MEDS: ACETAMINOPHEN 650 MG/20 ML UDC- SA PATIENTS-PAIN ONLY GT SCH ×2 (09:00→10:00)
[2018-08-02] MEDS: HYDROGEN PEROXIDE 480 ML BOTTLE TP SCH ×2 (09:00→21:08)
[2018-08-02] MEDS: NYSTATIN/TRIAMCIN CREAM 15 GM TUBE TP SCH ×2 (09:00→21:08)
[2018-08-02] MEDS: SEVELAMER CARBONATE 0.8 GM POWD.PACK GT SCH ×2 (09:00→17:00)
[2018-08-02] MEDS: POLYVINYL ALCOHOL 15 ML BOTTLE EACHEYE SCH ×2 (09:00→20:16)
[2018-08-02] MEDS: ACIDOPHILUS/BULGARICUS 1 EACH TAB.CHEW GT SCH ×2 (09:00→17:00)
[2018-08-02] MEDS: ASCORBIC ACID 500 MG TABLET GT SCH (09:00)
[2018-08-02 12:00] VITALS: BP 128/76
--- NOTE | 2018-08-02 13:00 | NUR ---
Seen and examined by THOMAS Leija, no new order given.
--- NOTE | 2018-08-02 15:51 | NUR ---
Patient has podiatry new. 08/09
[2018-08-02 18:00] VITALS: BP 128/76
[2018-08-02 20:14] VITALS: BP 111/66
[2018-08-03 00:26] VITALS: BP 132/78
[2018-08-03] MEDS: IPRATROPIUM NEB FS 0.5 MG/2.5 ML AMPUL.NEB NEB SCH ×4 (00:54→19:55)
[2018-08-03] MEDS: ALBUTEROL FS 2.5 MG/3 ML VIAL.NEB NEB SCH ×4 (00:54→19:55)
[2018-08-03] MEDS: ESOMEPRAZOLE MAG TRIHYDRATE 20 MG CAPSULE.DR GT SCH (05:11)
[2018-08-03] MEDS: MAG HYDROX/AL HYDROX/SIMETH 30 ML UDC TP SCH ×4 (05:11→23:36)
[2018-08-03] MEDS: PROSOURCE / PROSTAT (PYXIS) 30 ML UDC GT SCH ×5 (05:11→21:22)
[2018-08-03] MEDS: BLOOD SUGAR DIAGNOSTIC 1 EACH STRIP IN SCH ×4 (06:08→23:45)
[2018-08-03] MEDS: INSULIN REGULAR, HUMAN 100 UNIT/ML 3 ML VIAL SQ PRN ×2 (06:09→23:46)
[2018-08-03] MEDS: NEPRO 1,000 ML BOTTLE GT PRN (06:20)
[2018-08-03 06:27] VITALS: BP 118/72
[2018-08-03 07:27] VITALS: BP 158/56
[2018-08-03] MEDS: ASCORBIC ACID 500 MG TABLET GT SCH (08:01)
[2018-08-03] MEDS: SEVELAMER CARBONATE 0.8 GM POWD.PACK GT SCH ×2 (08:01→16:23)
[2018-08-03] MEDS: POLYVINYL ALCOHOL 15 ML BOTTLE EACHEYE SCH ×2 (08:01→21:22)
[2018-08-03] MEDS: METOCLOPRAMIDE HCL 10 MG/10 ML UDC GT SCH ×2 (08:01→21:22)
[2018-08-03] MEDS: ACIDOPHILUS/BULGARICUS 1 EACH TAB.CHEW GT SCH ×2 (08:01→16:22)
[2018-08-03] MEDS: HYDROGEL DRESSING 90 GM TUBE TP SCH ×2 (08:02→21:23)
[2018-08-03] MEDS: NYSTATIN/TRIAMCIN CREAM 15 GM TUBE TP SCH ×2 (08:02→21:24)
[2018-08-03] MEDS: NYSTATIN TOP POWDER 15 GM BOTTLE TP SCH ×6 (08:02→21:24)
[2018-08-03] MEDS: HYDROGEN PEROXIDE 480 ML BOTTLE TP SCH ×2 (08:02→21:23)
[2018-08-03] MEDS: POVIDONE-IODINE OINT 28.4 GM TUBE TP SCH ×2 (08:02→21:23)
[2018-08-03] MEDS: Z GUARD REMEDY 4 OZ OINT TP SCH ×2 (08:04→21:24)
[2018-08-03] MEDS: VIT B CMPLX 3/FA/VIT C/BIOTIN 1 TAB TABLET GT SCH (08:14)
[2018-08-03] MEDS: HEPARIN SODIUM, PORCINE 5000 UNITS/1 ML VIAL SQ SCH ×2 (08:18→21:23)
[2018-08-03] MEDS: INSULIN GLARGINE, 100 UNIT/ML CARTRIDGE SQ SCH ×2 (08:20→21:25)
[2018-08-03] MEDS: ACETAMINOPHEN 650 MG/20 ML UDC- SA PATIENTS-PAIN ONLY GT SCH ×2 (09:00→21:23)
--- NOTE | 2018-08-03 11:00 | NUR ---
PATIENT OUT OF UNIT FOR OUTPATIENT HD
--- NOTE | 2018-08-03 14:45 | NUR ---
PATIENT BACK FROM HD IN STABLE CONDITION
[2018-08-03] MEDS: hydrALAZINE HCL 25 MG TABLET GT SCH (16:21)
[2018-08-03 20:42] VITALS: BP 126/56
[2018-08-03 21:20] VITALS: BP 126/56
[2018-08-03] MEDS: METOPROLOL TARTRATE 50 MG TABLET GT SCH (21:25)
[2018-08-04] MEDS: IPRATROPIUM NEB FS 0.5 MG/2.5 ML AMPUL.NEB NEB SCH ×4 (01:11→19:45)
[2018-08-04] MEDS: ALBUTEROL FS 2.5 MG/3 ML VIAL.NEB NEB SCH ×4 (01:11→19:45)
[2018-08-04 02:24] VITALS: BP 119/64
[2018-08-04] MEDS: PROSOURCE / PROSTAT (PYXIS) 30 ML UDC GT SCH ×5 (05:00→21:11)
[2018-08-04] MEDS: MAG HYDROX/AL HYDROX/SIMETH 30 ML UDC TP SCH ×4 (05:00→22:42)
[2018-08-04] MEDS: ESOMEPRAZOLE MAG TRIHYDRATE 20 MG CAPSULE.DR GT SCH (06:02)
[2018-08-04] MEDS: BLOOD SUGAR DIAGNOSTIC 1 EACH STRIP IN SCH ×4 (06:02→23:32)
[2018-08-04] MEDS: INSULIN REGULAR, HUMAN 100 UNIT/ML 3 ML VIAL SQ PRN ×4 (06:04→23:33)
[2018-08-04 06:05] VITALS: BP 128/62
[2018-08-04 07:25] VITALS: BP 115/56
[2018-08-04] MEDS: HYDROGEN PEROXIDE 480 ML BOTTLE TP SCH ×2 (09:00→22:00)
[2018-08-04] MEDS: hydrALAZINE HCL 25 MG TABLET GT SCH ×2 (09:00→16:49)
[2018-08-04] MEDS: INSULIN GLARGINE, 100 UNIT/ML CARTRIDGE SQ SCH ×2 (09:00→21:45)
[2018-08-04] MEDS: NYSTATIN/TRIAMCIN CREAM 15 GM TUBE TP SCH ×2 (09:00→22:00)
[2018-08-04] MEDS: Z GUARD REMEDY 4 OZ OINT TP SCH ×2 (09:00→22:00)
[2018-08-04] MEDS: NYSTATIN TOP POWDER 15 GM BOTTLE TP SCH ×6 (09:00→22:20)
[2018-08-04] MEDS: POVIDONE-IODINE OINT 28.4 GM TUBE TP SCH ×2 (09:00→22:00)
[2018-08-04] MEDS: HEPARIN SODIUM, PORCINE 5000 UNITS/1 ML VIAL SQ SCH ×2 (09:00→21:12)
[2018-08-04] MEDS: HYDROGEL DRESSING 90 GM TUBE TP SCH ×2 (09:00→22:00)
[2018-08-04] MEDS: POLYVINYL ALCOHOL 15 ML BOTTLE EACHEYE SCH ×2 (09:46→21:11)
[2018-08-04] MEDS: SEVELAMER CARBONATE 0.8 GM POWD.PACK GT SCH ×2 (09:47→16:49)
[2018-08-04] MEDS: ACIDOPHILUS/BULGARICUS 1 EACH TAB.CHEW GT SCH ×2 (09:47→16:49)
[2018-08-04] MEDS: METOPROLOL TARTRATE 50 MG TABLET GT SCH ×2 (09:47→21:44)
[2018-08-04] MEDS: VIT B CMPLX 3/FA/VIT C/BIOTIN 1 TAB TABLET GT SCH (09:47)
[2018-08-04] MEDS: METOCLOPRAMIDE HCL 10 MG/10 ML UDC GT SCH ×2 (09:47→21:11)
[2018-08-04] MEDS: ACETAMINOPHEN 650 MG/20 ML UDC- SA PATIENTS-PAIN ONLY GT SCH ×2 (09:49→21:11)
[2018-08-04] MEDS: ASCORBIC ACID 500 MG TABLET GT SCH (09:49)
[2018-08-04 12:00] VITALS: BP 108/50
[2018-08-04] MEDS: NEPRO 1,000 ML BOTTLE GT PRN (15:35)
[2018-08-04 18:52] VITALS: BP 148/62
[2018-08-04 19:57] VITALS: BP 99/52
[2018-08-05 00:20] VITALS: BP 140/51
[2018-08-05] MEDS: IPRATROPIUM NEB FS 0.5 MG/2.5 ML AMPUL.NEB NEB SCH ×4 (01:25→19:31)
[2018-08-05] MEDS: ALBUTEROL FS 2.5 MG/3 ML VIAL.NEB NEB SCH ×4 (01:25→19:31)
[2018-08-05] MEDS: MAG HYDROX/AL HYDROX/SIMETH 30 ML UDC TP SCH ×4 (05:14→23:08)
[2018-08-05] MEDS: ESOMEPRAZOLE MAG TRIHYDRATE 20 MG CAPSULE.DR GT SCH (05:14)
[2018-08-05] MEDS: PROSOURCE / PROSTAT (PYXIS) 30 ML UDC GT SCH ×5 (05:14→20:55)
[2018-08-05] MEDS: BLOOD SUGAR DIAGNOSTIC 1 EACH STRIP IN SCH ×4 (05:48→23:08)
[2018-08-05] MEDS: INSULIN REGULAR, HUMAN 100 UNIT/ML 3 ML VIAL SQ PRN ×3 (05:50→23:08)
[2018-08-05 06:03] VITALS: BP 145/58
[2018-08-05 07:47] VITALS: BP 131/54
[2018-08-05] MEDS: ACIDOPHILUS/BULGARICUS 1 EACH TAB.CHEW GT SCH ×2 (08:37→17:14)
[2018-08-05] MEDS: METOCLOPRAMIDE HCL 10 MG/10 ML UDC GT SCH ×2 (08:37→20:55)
[2018-08-05] MEDS: ASCORBIC ACID 500 MG TABLET GT SCH (08:37)
[2018-08-05] MEDS: POLYVINYL ALCOHOL 15 ML BOTTLE EACHEYE SCH ×2 (08:37→20:55)
[2018-08-05] MEDS: SEVELAMER CARBONATE 0.8 GM POWD.PACK GT SCH ×2 (08:37→17:14)
[2018-08-05] MEDS: VIT B CMPLX 3/FA/VIT C/BIOTIN 1 TAB TABLET GT SCH (08:37)
[2018-08-05] MEDS: INSULIN GLARGINE, 100 UNIT/ML CARTRIDGE SQ SCH ×2 (08:38→21:04)
[2018-08-05] MEDS: HEPARIN SODIUM, PORCINE 5000 UNITS/1 ML VIAL SQ SCH ×2 (08:38→20:55)
[2018-08-05 15:00] VITALS: BP 134/85
[2018-08-05] MEDS: ACETAMINOPHEN 650 MG/20 ML UDC- SA PATIENTS-PAIN ONLY GT SCH ×2 (15:30→20:55)
[2018-08-05] MEDS: HYDROGEN PEROXIDE 480 ML BOTTLE TP SCH ×2 (16:00→20:56)
[2018-08-05] MEDS: Z GUARD REMEDY 4 OZ OINT TP SCH ×2 (16:00→20:56)
[2018-08-05] MEDS: POVIDONE-IODINE OINT 28.4 GM TUBE TP SCH ×2 (16:00→20:55)
[2018-08-05] MEDS: NYSTATIN TOP POWDER 15 GM BOTTLE TP SCH ×6 (16:00→20:56)
[2018-08-05] MEDS: NYSTATIN/TRIAMCIN CREAM 15 GM TUBE TP SCH ×2 (16:00→20:56)
[2018-08-05] MEDS: hydrALAZINE HCL 25 MG TABLET GT SCH (17:00)
[2018-08-05 18:55] VITALS: BP 131/61
[2018-08-05 20:28] VITALS: BP 110/50
--- NOTE | 2018-08-05 20:32 | NUR ---
RT NOTE PATIENT RECEIVED TRACHED ON MECHANICAL VENTILATION. AMBU BAG/BACK UP TRACH @ BEDSIDE. TX GIVEN, NO ADVERSE REACTIONS NOTED. SX DONE, TRACH SECURED AND PATENT. ALARMS ON AND AUDIBLE. NO DISTRESS NOTED. PATIENT STABLE. WILL MONITOR. Addendum: 08/05/18 at 2033 by CARI TRIANA RT Amended: Links added.
[2018-08-05] MEDS: HYDROGEL DRESSING 90 GM TUBE TP SCH (20:56)
[2018-08-05] MEDS: METOPROLOL TARTRATE 50 MG TABLET GT SCH (21:04)
[2018-08-06 00:24] VITALS: BP 116/87
[2018-08-06] MEDS: IPRATROPIUM NEB FS 0.5 MG/2.5 ML AMPUL.NEB NEB SCH ×4 (01:33→19:56)
[2018-08-06] MEDS: ALBUTEROL FS 2.5 MG/3 ML VIAL.NEB NEB SCH ×4 (01:33→19:56)
[2018-08-06] MEDS: MAG HYDROX/AL HYDROX/SIMETH 30 ML UDC TP SCH ×4 (05:15→22:33)
[2018-08-06] MEDS: ESOMEPRAZOLE MAG TRIHYDRATE 20 MG CAPSULE.DR GT SCH (05:15)
[2018-08-06] MEDS: PROSOURCE / PROSTAT (PYXIS) 30 ML UDC GT SCH ×5 (05:15→20:28)
[2018-08-06] MEDS: BLOOD SUGAR DIAGNOSTIC 1 EACH STRIP IN SCH ×4 (05:15→23:50)
[2018-08-06] MEDS: INSULIN REGULAR, HUMAN 100 UNIT/ML 3 ML VIAL SQ PRN ×4 (05:16→23:52)
[2018-08-06 06:04] VITALS: BP 119/72
[2018-08-06 07:48] VITALS: BP 152/68
--- NOTE | 2018-08-06 07:53 | NUR ---
Female trach pt received unlabored on a mechanical vent. PT trach is secure. Vent is plugged into a red outlet, alarms are set and audible, and BMV is at bedside. Addendum: 08/06/18 at 0753 by ANNMARIE CARVER RT Amended: Links added.
[2018-08-06] MEDS: POVIDONE-IODINE OINT 28.4 GM TUBE TP SCH ×2 (09:00→20:29)
[2018-08-06] MEDS: HYDROGEN PEROXIDE 480 ML BOTTLE TP SCH ×2 (09:00→20:29)
[2018-08-06] MEDS: ACIDOPHILUS/BULGARICUS 1 EACH TAB.CHEW GT SCH ×2 (09:00→16:42)
[2018-08-06] MEDS: METOCLOPRAMIDE HCL 10 MG/10 ML UDC GT SCH ×2 (09:00→20:28)
[2018-08-06] MEDS: POLYVINYL ALCOHOL 15 ML BOTTLE EACHEYE SCH ×2 (09:00→20:28)
[2018-08-06] MEDS: METOPROLOL TARTRATE 50 MG TABLET GT SCH ×2 (09:00→21:09)
[2018-08-06] MEDS: Z GUARD REMEDY 4 OZ OINT TP SCH ×2 (09:00→20:30)
[2018-08-06] MEDS: NYSTATIN TOP POWDER 15 GM BOTTLE TP SCH ×6 (09:00→20:30)
[2018-08-06] MEDS: HYDROGEL DRESSING 90 GM TUBE TP SCH ×2 (09:00→20:29)
[2018-08-06] MEDS: ASCORBIC ACID 500 MG TABLET GT SCH (09:00)
[2018-08-06] MEDS: INSULIN GLARGINE, 100 UNIT/ML CARTRIDGE SQ SCH ×2 (09:00→21:10)
[2018-08-06] MEDS: ACETAMINOPHEN 650 MG/20 ML UDC- SA PATIENTS-PAIN ONLY GT SCH ×2 (09:00→20:29)
[2018-08-06] MEDS: NYSTATIN/TRIAMCIN CREAM 15 GM TUBE TP SCH ×2 (09:00→20:30)
[2018-08-06] MEDS: SEVELAMER CARBONATE 0.8 GM POWD.PACK GT SCH ×2 (09:00→16:42)
[2018-08-06] MEDS: HEPARIN SODIUM, PORCINE 5000 UNITS/1 ML VIAL SQ SCH ×2 (09:00→20:29)
[2018-08-06] MEDS: hydrALAZINE HCL 25 MG TABLET GT SCH ×2 (09:00→16:41)
[2018-08-06] MEDS: VIT B CMPLX 3/FA/VIT C/BIOTIN 1 TAB TABLET GT SCH (09:00)
[2018-08-06] MEDS: BACTRIM DS TABLET GT SCH ×2 (10:00→22:33)
--- NOTE | 2018-08-06 10:56 | NUR ---
PATTERN GATER Mariana Powell seen and assessed R index finger which is swollen, moist, red and covered with scab. Per Mariana it needs to be debrided. Consent obtain from John Woodall responsible republican witnessed by 2 licensed nurses. New order given to start patient on Bactrim DS for wound infection and to use Daikins solution for treatment. Post debridement measurement 1.5x1.5x0.4 cm.
[2018-08-06] MEDS: NEPRO 1,000 ML BOTTLE GT PRN (17:20)
[2018-08-06 18:17] VITALS: BP 147/64
[2018-08-06 19:35] VITALS: BP 147/66
[2018-08-07 00:01] VITALS: BP 139/88
[2018-08-07] MEDS: ALBUTEROL FS 2.5 MG/3 ML VIAL.NEB NEB SCH ×4 (01:55→19:22)
[2018-08-07] MEDS: IPRATROPIUM NEB FS 0.5 MG/2.5 ML AMPUL.NEB NEB SCH ×4 (01:55→19:22)
[2018-08-07] MEDS: ESOMEPRAZOLE MAG TRIHYDRATE 20 MG CAPSULE.DR GT SCH (05:16)
[2018-08-07] MEDS: MAG HYDROX/AL HYDROX/SIMETH 30 ML UDC TP SCH ×4 (05:16→23:00)
[2018-08-07] MEDS: PROSOURCE / PROSTAT (PYXIS) 30 ML UDC GT SCH ×5 (05:16→20:20)
[2018-08-07] MEDS: BLOOD SUGAR DIAGNOSTIC 1 EACH STRIP IN SCH ×3 (05:17→18:36)
[2018-08-07] MEDS: INSULIN REGULAR, HUMAN 100 UNIT/ML 3 ML VIAL SQ PRN ×2 (05:18→18:38)
[2018-08-07 06:06] VITALS: BP 127/86
[2018-08-07 07:36] VITALS: BP 149/65
[2018-08-07] MEDS: HYDROGEL DRESSING 90 GM TUBE TP SCH ×2 (09:00→20:21)
[2018-08-07] MEDS: POVIDONE-IODINE OINT 28.4 GM TUBE TP SCH ×2 (09:00→20:21)
[2018-08-07] MEDS: HYDROGEN PEROXIDE 480 ML BOTTLE TP SCH ×2 (09:00→20:21)
[2018-08-07] MEDS: DAKINS HALF STRENGTH (0.25%) 480 ML BOTTLE TOP SCH (09:00)
[2018-08-07] MEDS: Z GUARD REMEDY 4 OZ OINT TP SCH ×2 (09:00→20:22)
[2018-08-07] MEDS: NYSTATIN TOP POWDER 15 GM BOTTLE TP SCH ×6 (09:00→20:22)
[2018-08-07] MEDS: NYSTATIN/TRIAMCIN CREAM 15 GM TUBE TP SCH ×2 (09:00→20:21)
--- NOTE | 2018-08-07 09:03 | NUR ---
RT PATIENT REC'D TRACHED ON MECHANICAL VENTILATION. AMBU BAG/BACK UP TRACH BY BEDSIDE. TX GIVEN, NO ADVERSE REACTIONS NOTED. SX DONE WITH MODERATE THICK PALE-YELLOW SECRETIONS, TRACH SECURED AND PATENT. ALARMS ON AND AUDIBLE. VENT PLUGGED IN RED OUTLET. NO RESPIRATORY DISTRESS NOTED AT THIS TIME. PATIENT STABLE. WILL CONTINUE TO MONITOR. Addendum: 08/07/18 at 0905 by LONA PAGAN RT Amended: Links added.
[2018-08-07] MEDS: VIT B CMPLX 3/FA/VIT C/BIOTIN 1 TAB TABLET GT SCH (09:05)
[2018-08-07] MEDS: ACIDOPHILUS/BULGARICUS 1 EACH TAB.CHEW GT SCH ×2 (09:05→17:03)
[2018-08-07] MEDS: POLYVINYL ALCOHOL 15 ML BOTTLE EACHEYE SCH ×2 (09:05→20:20)
[2018-08-07] MEDS: METOCLOPRAMIDE HCL 10 MG/10 ML UDC GT SCH ×2 (09:07→20:20)
[2018-08-07] MEDS: SEVELAMER CARBONATE 0.8 GM POWD.PACK GT SCH ×2 (09:07→17:05)
[2018-08-07] MEDS: ACETAMINOPHEN 650 MG/20 ML UDC- SA PATIENTS-PAIN ONLY GT SCH ×2 (09:08→20:21)
[2018-08-07] MEDS: ASCORBIC ACID 500 MG TABLET GT SCH (09:08)
[2018-08-07] MEDS: INSULIN GLARGINE, 100 UNIT/ML CARTRIDGE SQ SCH ×2 (09:33→21:08)
[2018-08-07] MEDS: HEPARIN SODIUM, PORCINE 5000 UNITS/1 ML VIAL SQ SCH ×2 (09:33→20:21)
[2018-08-07] MEDS: BACTRIM DS TABLET GT SCH ×2 (10:00→21:06)
--- NOTE | 2018-08-07 11:09 | NUR ---
Spoke with John Woodall inquiring about patient's condition. At this time, patient left for dialysis, stable AV fistula in the R arm + for bruit and trill. John also made aware the R index finger post debridement and now on antibiotic via GT for wound infection. Appreciated the update given.
--- NOTE | 2018-08-07 15:44 | NUR ---
RT PATIENT RETURNS FROM DIALYSIS FACILITY TRACHED ON MECHANICAL VENTILATION ON CHARTED SETTINGS. AMBU BAG/BACK UP TRACH BY BEDSIDE. SX DONE WITH MODERATE THICK PALE-YELLOW SECRETIONS, TRACH SECURED AND PATENT. ALARMS ON AND AUDIBLE. VENT PLUGGED IN RED OUTLET. NO RESPIRATORY DISTRESS NOTED AT THIS TIME. PATIENT STABLE. WILL CONTINUE TO MONITOR. Addendum: 08/07/18 at 1545 by LONA PAGAN RT Amended: Links added.
[2018-08-07] MEDS: hydrALAZINE HCL 25 MG TABLET GT SCH (17:00)
[2018-08-07 18:10] VITALS: BP 129/48
[2018-08-07 19:48] VITALS: BP 118/59
[2018-08-07] MEDS: METOPROLOL TARTRATE 50 MG TABLET GT SCH (21:06)
--- NOTE | 2018-08-07 21:25 | NUR ---
RT NOTE PATIENT WAS RECEIVED ON CONTINUOUS VENT SUPPORT ON NOTED VENT SETTINGS. HHN INLINE TREATMENT WAS GIVEN, NO ADVERSE REACTION NOTED ,PRN SUCTION WAS DONE. TRACH TUBE PATENT AND SECURED. ALARMS ARE ON AND AUDIBLE. VANI AND ERIS GAN AT [facility]. WILL CONTINUE TO MONITOR PATIENT Addendum: 08/07/18 at 2126 by FERMÍN DAMON RT Amended: Links added.
[2018-08-08] VITALS (7 sets, daily range): BP systolic 104–151; BP diastolic 50–76
[2018-08-08] MEDS: BLOOD SUGAR DIAGNOSTIC 1 EACH STRIP IN SCH ×4 (00:25→18:16)
[2018-08-08] MEDS: INSULIN REGULAR, HUMAN 100 UNIT/ML 3 ML VIAL SQ PRN ×4 (00:26→18:17)
[2018-08-08] MEDS: ALBUTEROL FS 2.5 MG/3 ML VIAL.NEB NEB SCH ×4 (01:12→19:23)
[2018-08-08] MEDS: IPRATROPIUM NEB FS 0.5 MG/2.5 ML AMPUL.NEB NEB SCH ×4 (01:12→19:23)
[2018-08-08] MEDS: NEPRO 1,000 ML BOTTLE GT PRN (04:52)
[2018-08-08] MEDS: MAG HYDROX/AL HYDROX/SIMETH 30 ML UDC TP SCH ×4 (04:52→23:00)
[2018-08-08] MEDS: PROSOURCE / PROSTAT (PYXIS) 30 ML UDC GT SCH ×5 (04:52→20:43)
[2018-08-08] MEDS: LACTULOSE 10 G/15 ML UDC (PYXIS) GT PRN (05:06)
[2018-08-08] MEDS: ESOMEPRAZOLE MAG TRIHYDRATE 20 MG CAPSULE.DR GT SCH (05:06)
[2018-08-08] MEDS: DAKINS HALF STRENGTH (0.25%) 480 ML BOTTLE TOP SCH (09:00)
[2018-08-08] MEDS: hydrALAZINE HCL 25 MG TABLET GT SCH ×2 (09:00→17:00)
[2018-08-08] MEDS: METOPROLOL TARTRATE 50 MG TABLET GT SCH ×2 (09:00→22:00)
[2018-08-08] MEDS: NYSTATIN TOP POWDER 15 GM BOTTLE TP SCH ×6 (09:00→20:45)
[2018-08-08] MEDS: HYDROGEL DRESSING 90 GM TUBE TP SCH ×2 (09:00→20:45)
[2018-08-08] MEDS: NYSTATIN/TRIAMCIN CREAM 15 GM TUBE TP SCH ×2 (09:00→20:45)
[2018-08-08] MEDS: POVIDONE-IODINE OINT 28.4 GM TUBE TP SCH ×2 (09:00→20:44)
[2018-08-08] MEDS: Z GUARD REMEDY 4 OZ OINT TP SCH ×2 (09:00→20:45)
[2018-08-08] MEDS: HYDROGEN PEROXIDE 480 ML BOTTLE TP SCH ×2 (09:00→20:45)
[2018-08-08] MEDS: POLYVINYL ALCOHOL 15 ML BOTTLE EACHEYE SCH ×2 (09:28→20:43)
[2018-08-08] MEDS: ACIDOPHILUS/BULGARICUS 1 EACH TAB.CHEW GT SCH ×2 (09:38→17:01)
[2018-08-08] MEDS: ASCORBIC ACID 500 MG TABLET GT SCH (09:39)
[2018-08-08] MEDS: ACETAMINOPHEN 650 MG/20 ML UDC- SA PATIENTS-PAIN ONLY GT SCH ×2 (09:39→20:44)
[2018-08-08] MEDS: METOCLOPRAMIDE HCL 10 MG/10 ML UDC GT SCH ×2 (09:44→20:43)
[2018-08-08] MEDS: SEVELAMER CARBONATE 0.8 GM POWD.PACK GT SCH ×2 (09:44→17:02)
[2018-08-08] MEDS: VIT B CMPLX 3/FA/VIT C/BIOTIN 1 TAB TABLET GT SCH (09:44)
[2018-08-08] MEDS: HEPARIN SODIUM, PORCINE 5000 UNITS/1 ML VIAL SQ SCH ×2 (09:54→20:44)
[2018-08-08] MEDS: INSULIN GLARGINE, 100 UNIT/ML CARTRIDGE SQ SCH ×2 (09:55→21:32)
[2018-08-08] MEDS: BACTRIM DS TABLET GT SCH ×2 (10:00→22:00)
[2018-08-09] VITALS: BP 119/57
[2018-08-09] MEDS: BLOOD SUGAR DIAGNOSTIC 1 EACH STRIP IN SCH ×5 (00:10→23:13)
[2018-08-09] MEDS: CLONIDINE HCL 0.2 MG TABLET GT PRN (00:10)
[2018-08-09] MEDS: INSULIN REGULAR, HUMAN 100 UNIT/ML 3 ML VIAL SQ PRN ×5 (00:15→23:15)
[2018-08-09] MEDS: IPRATROPIUM NEB FS 0.5 MG/2.5 ML AMPUL.NEB NEB SCH ×4 (01:50→19:26)
[2018-08-09] MEDS: ALBUTEROL FS 2.5 MG/3 ML VIAL.NEB NEB SCH ×4 (01:50→19:26)
[2018-08-09] MEDS: MAG HYDROX/AL HYDROX/SIMETH 30 ML UDC TP SCH ×4 (05:00→23:13)
[2018-08-09] MEDS: PROSOURCE / PROSTAT (PYXIS) 30 ML UDC GT SCH ×5 (05:00→20:40)
[2018-08-09 06:00] VITALS: BP 129/63
[2018-08-09] MEDS: ESOMEPRAZOLE MAG TRIHYDRATE 20 MG CAPSULE.DR GT SCH (06:40)
[2018-08-09] MEDS: NEPRO 1,000 ML BOTTLE GT PRN (07:30)
[2018-08-09 07:37] VITALS: BP 133/72
[2018-08-09] MEDS: DAKINS HALF STRENGTH (0.25%) 480 ML BOTTLE TOP SCH (09:00)
[2018-08-09] MEDS: ACETAMINOPHEN 650 MG/20 ML UDC- SA PATIENTS-PAIN ONLY GT SCH ×2 (09:00→20:41)
[2018-08-09] MEDS: Z GUARD REMEDY 4 OZ OINT TP SCH ×2 (09:00→21:24)
[2018-08-09] MEDS: NYSTATIN TOP POWDER 15 GM BOTTLE TP SCH ×6 (09:00→21:24)
[2018-08-09] MEDS: HYDROGEL DRESSING 90 GM TUBE TP SCH ×2 (09:00→21:24)
[2018-08-09] MEDS: METOCLOPRAMIDE HCL 10 MG/10 ML UDC GT SCH ×2 (09:00→20:40)
[2018-08-09] MEDS: METOPROLOL TARTRATE 50 MG TABLET GT SCH ×2 (09:00→21:24)
[2018-08-09] MEDS: ACIDOPHILUS/BULGARICUS 1 EACH TAB.CHEW GT SCH ×2 (09:00→17:00)
[2018-08-09] MEDS: NYSTATIN/TRIAMCIN CREAM 15 GM TUBE TP SCH (09:00)
[2018-08-09] MEDS: INSULIN GLARGINE, 100 UNIT/ML CARTRIDGE SQ SCH ×2 (09:00→21:51)
[2018-08-09] MEDS: VIT B CMPLX 3/FA/VIT C/BIOTIN 1 TAB TABLET GT SCH (09:00)
[2018-08-09] MEDS: hydrALAZINE HCL 25 MG TABLET GT SCH ×2 (09:00→17:00)
[2018-08-09] MEDS: HYDROGEN PEROXIDE 480 ML BOTTLE TP SCH ×2 (09:00→21:24)
[2018-08-09] MEDS: HEPARIN SODIUM, PORCINE 5000 UNITS/1 ML VIAL SQ SCH ×2 (09:00→20:42)
[2018-08-09] MEDS: ASCORBIC ACID 500 MG TABLET GT SCH (09:00)
[2018-08-09] MEDS: SEVELAMER CARBONATE 0.8 GM POWD.PACK GT SCH ×2 (09:00→17:00)
[2018-08-09] MEDS: POLYVINYL ALCOHOL 15 ML BOTTLE EACHEYE SCH ×2 (09:58→20:40)
[2018-08-09] MEDS: BACTRIM DS TABLET GT SCH ×2 (10:00→21:24)
[2018-08-09 12:00] VITALS: BP 125/60
--- NOTE | 2018-08-09 16:51 | NUR ---
pt rec'd trached on [facility] vent on ac mode. no resp distress or sob noted. trach patent and secured. sx'd for mod amt of pale yellow secretions. alarms are set and audible. vent plugged into red outlet. ambu bag bedside. will continue to monitor. Addendum: 08/09/18 at 1651 by LOUISA CRUZ RT Amended: Links added.
[2018-08-09 18:00] VITALS: BP 22/54
--- NOTE | 2018-08-09 20:00 | NUR ---
RN NOTES Seen and examined by Hellen Leija with no new orders.
[2018-08-09 20:40] VITALS: BP 118/55
[2018-08-10 00:19] VITALS: BP 130/58
[2018-08-10] MEDS: ALBUTEROL FS 2.5 MG/3 ML VIAL.NEB NEB SCH ×4 (01:15→19:38)
[2018-08-10] MEDS: IPRATROPIUM NEB FS 0.5 MG/2.5 ML AMPUL.NEB NEB SCH ×4 (01:15→19:38)
[2018-08-10] MEDS: ESOMEPRAZOLE MAG TRIHYDRATE 20 MG CAPSULE.DR GT SCH (05:09)
[2018-08-10] MEDS: PROSOURCE / PROSTAT (PYXIS) 30 ML UDC GT SCH ×5 (05:09→20:33)
[2018-08-10] MEDS: MAG HYDROX/AL HYDROX/SIMETH 30 ML UDC TP SCH ×4 (05:09→22:01)
[2018-08-10] MEDS: BLOOD SUGAR DIAGNOSTIC 1 EACH STRIP IN SCH ×4 (06:09→23:13)
[2018-08-10] MEDS: INSULIN REGULAR, HUMAN 100 UNIT/ML 3 ML VIAL SQ PRN ×3 (06:10→23:14)
[2018-08-10 06:26] VITALS: BP 124/56
[2018-08-10 07:33] VITALS: BP 116/52
[2018-08-10] MEDS: DAKINS HALF STRENGTH (0.25%) 480 ML BOTTLE TOP SCH (09:00)
[2018-08-10] MEDS: HYDROGEN PEROXIDE 480 ML BOTTLE TP SCH ×2 (09:00→21:14)
[2018-08-10] MEDS: INSULIN GLARGINE, 100 UNIT/ML CARTRIDGE SQ SCH ×2 (09:22→22:01)
[2018-08-10] MEDS: METOCLOPRAMIDE HCL 10 MG/10 ML UDC GT SCH ×2 (09:31→20:33)
[2018-08-10] MEDS: POLYVINYL ALCOHOL 15 ML BOTTLE EACHEYE SCH ×2 (09:31→20:33)
[2018-08-10] MEDS: ASCORBIC ACID 500 MG TABLET GT SCH (09:31)
[2018-08-10] MEDS: ACIDOPHILUS/BULGARICUS 1 EACH TAB.CHEW GT SCH ×2 (09:31→17:04)
[2018-08-10] MEDS: VIT B CMPLX 3/FA/VIT C/BIOTIN 1 TAB TABLET GT SCH (09:31)
[2018-08-10] MEDS: SEVELAMER CARBONATE 0.8 GM POWD.PACK GT SCH ×2 (09:31→17:04)
[2018-08-10] MEDS: ACETAMINOPHEN 650 MG/20 ML UDC- SA PATIENTS-PAIN ONLY GT SCH ×2 (09:31→20:33)
[2018-08-10] MEDS: HEPARIN SODIUM, PORCINE 5000 UNITS/1 ML VIAL SQ SCH ×2 (09:32→20:34)
[2018-08-10] MEDS: Z GUARD REMEDY 4 OZ OINT TP SCH ×2 (10:00→21:14)
[2018-08-10] MEDS: NYSTATIN TOP POWDER 15 GM BOTTLE TP SCH ×6 (10:00→21:14)
[2018-08-10] MEDS: BACTRIM DS TABLET GT SCH ×2 (10:00→21:15)
[2018-08-10] MEDS: HYDROGEL DRESSING 90 GM TUBE TP SCH ×2 (10:00→21:14)
[2018-08-10] MEDS: hydrALAZINE HCL 25 MG TABLET GT SCH (17:00)
[2018-08-10] MEDS: NEPRO 1,000 ML BOTTLE GT PRN (17:04)
[2018-08-10 18:46] VITALS: BP 123/54
[2018-08-10 20:19] VITALS: BP 122/97
[2018-08-10] MEDS: METOPROLOL TARTRATE 50 MG TABLET GT SCH (21:15)
[2018-08-11 00:33] VITALS: BP 124/72
[2018-08-11] MEDS: IPRATROPIUM NEB FS 0.5 MG/2.5 ML AMPUL.NEB NEB SCH ×4 (01:44→19:45)
[2018-08-11] MEDS: ALBUTEROL FS 2.5 MG/3 ML VIAL.NEB NEB SCH ×4 (01:44→19:45)
[2018-08-11] MEDS: PROSOURCE / PROSTAT (PYXIS) 30 ML UDC GT SCH ×5 (05:09→21:34)
[2018-08-11] MEDS: ESOMEPRAZOLE MAG TRIHYDRATE 20 MG CAPSULE.DR GT SCH (05:10)
[2018-08-11] MEDS: MAG HYDROX/AL HYDROX/SIMETH 30 ML UDC TP SCH ×4 (05:10→23:29)
[2018-08-11] MEDS: BLOOD SUGAR DIAGNOSTIC 1 EACH STRIP IN SCH ×4 (06:18→23:29)
[2018-08-11] MEDS: INSULIN REGULAR, HUMAN 100 UNIT/ML 3 ML VIAL SQ PRN ×4 (06:19→23:31)
[2018-08-11 06:42] VITALS: BP 129/77
[2018-08-11 08:06] VITALS: BP 162/82
[2018-08-11] MEDS: NYSTATIN TOP POWDER 15 GM BOTTLE TP SCH ×6 (09:00→21:55)
[2018-08-11] MEDS: HYDROGEN PEROXIDE 480 ML BOTTLE TP SCH ×2 (09:00→21:55)
[2018-08-11] MEDS: POLYVINYL ALCOHOL 15 ML BOTTLE EACHEYE SCH ×2 (09:30→21:34)
[2018-08-11] MEDS: VIT B CMPLX 3/FA/VIT C/BIOTIN 1 TAB TABLET GT SCH (09:31)
[2018-08-11] MEDS: METOPROLOL TARTRATE 50 MG TABLET GT SCH ×2 (09:31→21:36)
[2018-08-11] MEDS: hydrALAZINE HCL 25 MG TABLET GT SCH ×2 (09:31→17:38)
[2018-08-11] MEDS: METOCLOPRAMIDE HCL 10 MG/10 ML UDC GT SCH ×2 (09:32→21:34)
[2018-08-11] MEDS: SEVELAMER CARBONATE 0.8 GM POWD.PACK GT SCH ×2 (09:32→17:38)
[2018-08-11] MEDS: ACETAMINOPHEN 650 MG/20 ML UDC- SA PATIENTS-PAIN ONLY GT SCH ×2 (09:36→21:35)
[2018-08-11] MEDS: INSULIN GLARGINE, 100 UNIT/ML CARTRIDGE SQ SCH ×2 (09:42→21:56)
[2018-08-11] MEDS: HEPARIN SODIUM, PORCINE 5000 UNITS/1 ML VIAL SQ SCH ×2 (09:43→21:35)
[2018-08-11] MEDS: ASCORBIC ACID 500 MG TABLET GT SCH (09:43)
[2018-08-11] MEDS: ACIDOPHILUS/BULGARICUS 1 EACH TAB.CHEW GT SCH ×2 (09:43→17:38)
[2018-08-11] MEDS: BACTRIM DS TABLET GT SCH ×2 (10:00→21:36)
[2018-08-11] MEDS: Z GUARD REMEDY 4 OZ OINT TP SCH ×2 (10:06→21:55)
[2018-08-11] MEDS: DAKINS HALF STRENGTH (0.25%) 480 ML BOTTLE TOP SCH (10:06)
[2018-08-11] MEDS: HYDROGEL DRESSING 90 GM TUBE TP SCH ×2 (10:06→21:55)
[2018-08-11 12:00] VITALS: BP 157/74
[2018-08-11] MEDS: NEPRO 1,000 ML BOTTLE GT PRN (18:04)
[2018-08-11 18:56] VITALS: BP 144/72
[2018-08-11 20:00] VITALS: BP 138/76
[2018-08-12 00:42] VITALS: BP 98/55
[2018-08-12] MEDS: ALBUTEROL FS 2.5 MG/3 ML VIAL.NEB NEB SCH ×4 (02:21→20:01)
[2018-08-12] MEDS: IPRATROPIUM NEB FS 0.5 MG/2.5 ML AMPUL.NEB NEB SCH ×4 (02:21→20:01)
[2018-08-12] MEDS: BLOOD SUGAR DIAGNOSTIC 1 EACH STRIP IN SCH ×3 (05:43→18:22)
[2018-08-12] MEDS: ESOMEPRAZOLE MAG TRIHYDRATE 20 MG CAPSULE.DR GT SCH (05:43)
[2018-08-12] MEDS: PROSOURCE / PROSTAT (PYXIS) 30 ML UDC GT SCH ×5 (05:43→21:38)
[2018-08-12] MEDS: MAG HYDROX/AL HYDROX/SIMETH 30 ML UDC TP SCH ×4 (05:43→22:34)
[2018-08-12] MEDS: INSULIN REGULAR, HUMAN 100 UNIT/ML 3 ML VIAL SQ PRN ×2 (05:44→18:27)
[2018-08-12 06:43] VITALS: BP 148/73
[2018-08-12 07:34] VITALS: BP 157/68
[2018-08-12] MEDS: METOCLOPRAMIDE HCL 10 MG/10 ML UDC GT SCH ×2 (08:23→21:39)
[2018-08-12] MEDS: VIT B CMPLX 3/FA/VIT C/BIOTIN 1 TAB TABLET GT SCH (08:23)
[2018-08-12] MEDS: SEVELAMER CARBONATE 0.8 GM POWD.PACK GT SCH ×2 (08:23→16:53)
[2018-08-12] MEDS: ACIDOPHILUS/BULGARICUS 1 EACH TAB.CHEW GT SCH ×2 (08:23→16:52)
[2018-08-12] MEDS: POLYVINYL ALCOHOL 15 ML BOTTLE EACHEYE SCH ×2 (08:23→21:38)
[2018-08-12] MEDS: ACETAMINOPHEN 650 MG/20 ML UDC- SA PATIENTS-PAIN ONLY GT SCH ×2 (08:24→21:39)
[2018-08-12] MEDS: ASCORBIC ACID 500 MG TABLET GT SCH (08:24)
[2018-08-12] MEDS: HEPARIN SODIUM, PORCINE 5000 UNITS/1 ML VIAL SQ SCH ×2 (08:27→21:39)
[2018-08-12] MEDS: Z GUARD REMEDY 4 OZ OINT TP SCH ×2 (09:00→21:58)
[2018-08-12] MEDS: HYDROGEL DRESSING 90 GM TUBE TP SCH ×2 (09:00→21:58)
[2018-08-12] MEDS: DAKINS HALF STRENGTH (0.25%) 480 ML BOTTLE TOP SCH (09:00)
[2018-08-12] MEDS: INSULIN GLARGINE, 100 UNIT/ML CARTRIDGE SQ SCH ×2 (09:00→22:34)
[2018-08-12] MEDS: HYDROGEN PEROXIDE 480 ML BOTTLE TP SCH ×2 (09:00→21:58)
[2018-08-12] MEDS: NYSTATIN TOP POWDER 15 GM BOTTLE TP SCH ×6 (09:00→21:58)
--- NOTE | 2018-08-12 09:53 | NUR ---
RT NOTE PT RECEIVED ON [facility] VENT ON THE FOLLOWING NOTED SETTINGS. NO RESP DISTRESS OR SOB NOTED. PT SX'D BREATHING TX GIVEN, NO ADVERSE REACTIONS NOTED. VENT IS PLUGGED INTO RED OUTLET, ALARMS ARE ON AND AUDIBLE. AMBU BAG AND SPARE TRACH ARE AT BEDSIDE. WILL CONT TO MONITOR PT. BREATHING TX WAS GIVEN LATE DUE TO ATTENDANCE FOR RAPID RESPONSE CALLED IN BILL 118. Addendum: 08/12/18 at 0954 by SHANI PEÑA RT Amended: Links added.
[2018-08-12] MEDS: BACTRIM DS TABLET GT SCH ×2 (10:00→21:40)
[2018-08-12 12:00] VITALS: BP 132/87
[2018-08-12] MEDS: hydrALAZINE HCL 25 MG TABLET GT SCH (16:52)
[2018-08-12 18:33] VITALS: BP 130/84
[2018-08-12 19:44] VITALS: BP 141/70
[2018-08-12] MEDS: METOPROLOL TARTRATE 50 MG TABLET GT SCH (21:40)
[2018-08-13] MEDS: BLOOD SUGAR DIAGNOSTIC 1 EACH STRIP IN SCH ×4 (00:09→18:20)
[2018-08-13] MEDS: INSULIN REGULAR, HUMAN 100 UNIT/ML 3 ML VIAL SQ PRN ×4 (00:11→18:21)
[2018-08-13 00:21] VITALS: BP 108/78
[2018-08-13] MEDS: IPRATROPIUM NEB FS 0.5 MG/2.5 ML AMPUL.NEB NEB SCH ×4 (01:02→19:48)
[2018-08-13] MEDS: ALBUTEROL FS 2.5 MG/3 ML VIAL.NEB NEB SCH ×4 (01:02→19:48)
[2018-08-13] MEDS: PROSOURCE / PROSTAT (PYXIS) 30 ML UDC GT SCH ×5 (05:20→21:25)
[2018-08-13] MEDS: MAG HYDROX/AL HYDROX/SIMETH 30 ML UDC TP SCH ×4 (05:20→23:34)
[2018-08-13] MEDS: ESOMEPRAZOLE MAG TRIHYDRATE 20 MG CAPSULE.DR GT SCH (05:20)
[2018-08-13 06:33] VITALS: BP 123/53
[2018-08-13] MEDS: NEPRO 1,000 ML BOTTLE GT PRN (06:40)
[2018-08-13 07:30] VITALS: BP 146/65
[2018-08-13] MEDS: POLYVINYL ALCOHOL 15 ML BOTTLE EACHEYE SCH ×2 (08:37→21:25)
[2018-08-13] MEDS: SEVELAMER CARBONATE 0.8 GM POWD.PACK GT SCH ×2 (08:37→17:17)
[2018-08-13] MEDS: ACIDOPHILUS/BULGARICUS 1 EACH TAB.CHEW GT SCH ×2 (08:37→17:17)
[2018-08-13] MEDS: ASCORBIC ACID 500 MG TABLET GT SCH (08:37)
[2018-08-13] MEDS: VIT B CMPLX 3/FA/VIT C/BIOTIN 1 TAB TABLET GT SCH (08:37)
[2018-08-13] MEDS: METOCLOPRAMIDE HCL 10 MG/10 ML UDC GT SCH ×2 (08:37→21:25)
[2018-08-13] MEDS: HEPARIN SODIUM, PORCINE 5000 UNITS/1 ML VIAL SQ SCH ×2 (08:38→21:26)
[2018-08-13] MEDS: ACETAMINOPHEN 650 MG/20 ML UDC- SA PATIENTS-PAIN ONLY GT SCH ×2 (08:38→21:25)
[2018-08-13] MEDS: METOPROLOL TARTRATE 50 MG TABLET GT SCH ×2 (08:39→21:26)
[2018-08-13] MEDS: hydrALAZINE HCL 25 MG TABLET GT SCH ×2 (08:39→17:00)
[2018-08-13] MEDS: INSULIN GLARGINE, 100 UNIT/ML CARTRIDGE SQ SCH ×2 (08:43→21:27)
[2018-08-13] MEDS: DAKINS HALF STRENGTH (0.25%) 480 ML BOTTLE TOP SCH (09:41)
[2018-08-13] MEDS: BACTRIM DS TABLET GT SCH ×2 (09:41→21:26)
[2018-08-13] MEDS: Z GUARD REMEDY 4 OZ OINT TP SCH ×2 (09:41→21:59)
[2018-08-13] MEDS: HYDROGEL DRESSING 90 GM TUBE TP SCH ×2 (09:41→21:59)
[2018-08-13] MEDS: HYDROGEN PEROXIDE 480 ML BOTTLE TP SCH ×2 (09:41→21:59)
[2018-08-13 12:00] VITALS: BP 111/59
[2018-08-13] MEDS: NYSTATIN TOP POWDER 15 GM BOTTLE TP SCH ×6 (12:14→21:59)
--- NOTE | 2018-08-13 14:20 | NUR ---
RT NOTE PT MECHANICALLY VENTILATED VIA [facility] 6 CUFFED TRACHEOSTOMY TUBE. CUFF INFLATED. TRACH TUBE MIDLINE AND SECURE. VENTILATOR SETTINGS PRESCRIBED. ALARMS SET PER PROTOCOL AND AUDIBLE. VENT PLUGGED IN TO RED OUTLET. AMBU BAG AT BED SIDE. NO DISTRESS NOTED. Addendum: 08/13/18 at 1420 by NATALIE DAMON RT Amended: Links added.
[2018-08-13 18:27] VITALS: BP 107/59
[2018-08-13 20:05] VITALS: BP 95/53
[2018-08-14 00:16] VITALS: BP 113/75
[2018-08-14] MEDS: BLOOD SUGAR DIAGNOSTIC 1 EACH STRIP IN SCH ×5 (00:56→23:48)
[2018-08-14] MEDS: INSULIN REGULAR, HUMAN 100 UNIT/ML 3 ML VIAL SQ PRN ×4 (00:58→23:50)
[2018-08-14] MEDS: ALBUTEROL FS 2.5 MG/3 ML VIAL.NEB NEB SCH ×4 (01:45→19:33)
[2018-08-14] MEDS: IPRATROPIUM NEB FS 0.5 MG/2.5 ML AMPUL.NEB NEB SCH ×4 (01:45→19:33)
[2018-08-14] MEDS: MAG HYDROX/AL HYDROX/SIMETH 30 ML UDC TP SCH ×4 (05:36→23:48)
[2018-08-14] MEDS: ESOMEPRAZOLE MAG TRIHYDRATE 20 MG CAPSULE.DR GT SCH (05:36)
[2018-08-14] MEDS: PROSOURCE / PROSTAT (PYXIS) 30 ML UDC GT SCH ×5 (05:36→21:48)
[2018-08-14 06:20] VITALS: BP 138/65
[2018-08-14 07:40] VITALS: BP 152/60
[2018-08-14] MEDS: METOCLOPRAMIDE HCL 10 MG/10 ML UDC GT SCH ×2 (08:37→21:48)
[2018-08-14] MEDS: ACIDOPHILUS/BULGARICUS 1 EACH TAB.CHEW GT SCH ×2 (08:37→16:58)
[2018-08-14] MEDS: VIT B CMPLX 3/FA/VIT C/BIOTIN 1 TAB TABLET GT SCH (08:37)
[2018-08-14] MEDS: POLYVINYL ALCOHOL 15 ML BOTTLE EACHEYE SCH ×2 (08:37→21:48)
[2018-08-14] MEDS: SEVELAMER CARBONATE 0.8 GM POWD.PACK GT SCH ×2 (08:37→16:58)
[2018-08-14] MEDS: ASCORBIC ACID 500 MG TABLET GT SCH (08:38)
[2018-08-14] MEDS: ACETAMINOPHEN 650 MG/20 ML UDC- SA PATIENTS-PAIN ONLY GT SCH ×2 (08:38→21:48)
[2018-08-14] MEDS: HEPARIN SODIUM, PORCINE 5000 UNITS/1 ML VIAL SQ SCH ×2 (08:39→21:49)
[2018-08-14] MEDS: INSULIN GLARGINE, 100 UNIT/ML CARTRIDGE SQ SCH ×2 (08:40→21:50)
[2018-08-14] MEDS: DAKINS HALF STRENGTH (0.25%) 480 ML BOTTLE TOP SCH (09:15)
[2018-08-14] MEDS: HYDROGEN PEROXIDE 480 ML BOTTLE TP SCH ×2 (09:15→21:49)
[2018-08-14] MEDS: NYSTATIN TOP POWDER 15 GM BOTTLE TP SCH ×6 (09:15→21:49)
[2018-08-14] MEDS: HYDROGEL DRESSING 90 GM TUBE TP SCH ×2 (09:15→21:49)
[2018-08-14] MEDS: Z GUARD REMEDY 4 OZ OINT TP SCH ×2 (09:15→21:49)
[2018-08-14] MEDS: BACTRIM DS TABLET GT SCH ×2 (10:00→21:49)
--- NOTE | 2018-08-14 11:00 | NUR ---
Resident picked up by [facility] for hemodialysis treatment via rluray, accompanied by 2 EMT's and 1 RT. RFA AV shunt intact,no bleeding noted, + for thrill and bruit. Resident left building in stable condition. no respiratory distress noted.
--- NOTE | 2018-08-14 13:23 | NUR ---
RT Pt away for dialysis, HHN tx skipped at this time.
[2018-08-14 14:55] VITALS: BP 142/72
--- NOTE | 2018-08-14 14:55 | NUR ---
resident returned from S/P hemodialyis treatment, no s/s of any complications noted. RFA AV shunt intact, no active bleeding noted. covered with dressing, clean and dry. + for thrill and bruit. no respiratory distress noted.
[2018-08-14] MEDS: hydrALAZINE HCL 25 MG TABLET GT SCH (16:57)
[2018-08-14 18:25] VITALS: BP 126/56
[2018-08-14 21:11] VITALS: BP 109/67
[2018-08-14] MEDS: METOPROLOL TARTRATE 50 MG TABLET GT SCH (21:51)
[2018-08-14] MEDS: CLONIDINE HCL 0.2 MG TABLET GT PRN (23:50)
[2018-08-15] VITALS: BP 104/57
[2018-08-15] MEDS: IPRATROPIUM NEB FS 0.5 MG/2.5 ML AMPUL.NEB NEB SCH ×4 (01:00→19:32)
[2018-08-15] MEDS: ALBUTEROL FS 2.5 MG/3 ML VIAL.NEB NEB SCH ×4 (01:00→19:32)
[2018-08-15] MEDS: MAG HYDROX/AL HYDROX/SIMETH 30 ML UDC TP SCH ×4 (05:44→23:00)
[2018-08-15] MEDS: PROSOURCE / PROSTAT (PYXIS) 30 ML UDC GT SCH ×5 (05:44→21:49)
[2018-08-15] MEDS: ESOMEPRAZOLE MAG TRIHYDRATE 20 MG CAPSULE.DR GT SCH (05:44)
[2018-08-15] MEDS: BLOOD SUGAR DIAGNOSTIC 1 EACH STRIP IN SCH ×3 (05:44→17:41)
[2018-08-15] MEDS: CLONIDINE HCL 0.2 MG TABLET GT PRN (05:45)
[2018-08-15] MEDS: INSULIN REGULAR, HUMAN 100 UNIT/ML 3 ML VIAL SQ PRN ×3 (05:47→17:43)
[2018-08-15 06:00] VITALS: BP 154/55
[2018-08-15 07:44] VITALS: BP 149/89
[2018-08-15] MEDS: POLYVINYL ALCOHOL 15 ML BOTTLE EACHEYE SCH ×2 (08:24→21:49)
[2018-08-15] MEDS: ACIDOPHILUS/BULGARICUS 1 EACH TAB.CHEW GT SCH ×2 (08:24→17:41)
[2018-08-15] MEDS: METOCLOPRAMIDE HCL 10 MG/10 ML UDC GT SCH ×2 (08:25→21:49)
[2018-08-15] MEDS: ASCORBIC ACID 500 MG TABLET GT SCH (08:25)
[2018-08-15] MEDS: VIT B CMPLX 3/FA/VIT C/BIOTIN 1 TAB TABLET GT SCH (08:25)
[2018-08-15] MEDS: ACETAMINOPHEN 650 MG/20 ML UDC- SA PATIENTS-PAIN ONLY GT SCH ×2 (08:25→21:49)
[2018-08-15] MEDS: SEVELAMER CARBONATE 0.8 GM POWD.PACK GT SCH ×2 (08:25→17:41)
[2018-08-15] MEDS: HEPARIN SODIUM, PORCINE 5000 UNITS/1 ML VIAL SQ SCH ×2 (08:28→21:51)
[2018-08-15] MEDS: INSULIN GLARGINE, 100 UNIT/ML CARTRIDGE SQ SCH ×2 (08:30→21:55)
[2018-08-15] MEDS: hydrALAZINE HCL 25 MG TABLET GT SCH ×2 (08:33→17:00)
[2018-08-15] MEDS: METOPROLOL TARTRATE 50 MG TABLET GT SCH ×2 (08:34→21:51)
[2018-08-15] MEDS: DAKINS HALF STRENGTH (0.25%) 480 ML BOTTLE TOP SCH (09:53)
[2018-08-15] MEDS: HYDROGEN PEROXIDE 480 ML BOTTLE TP SCH ×2 (09:53→21:51)
[2018-08-15] MEDS: HYDROGEL DRESSING 90 GM TUBE TP SCH ×2 (09:53→21:51)
[2018-08-15] MEDS: NYSTATIN TOP POWDER 15 GM BOTTLE TP SCH ×6 (09:53→21:51)
[2018-08-15] MEDS: Z GUARD REMEDY 4 OZ OINT TP SCH ×2 (09:54→21:51)
[2018-08-15] MEDS: BACTRIM DS TABLET GT SCH ×2 (09:54→21:53)
[2018-08-15 12:46] VITALS: BP 129/62
[2018-08-15] MEDS: NEPRO 1,000 ML BOTTLE GT PRN (18:00)
[2018-08-15 18:20] VITALS: BP 128/68
[2018-08-15 20:05] VITALS: BP 120/56
--- NOTE | 2018-08-15 21:02 | NUR ---
RT PATIENT WAS RECEIVED ON CONTINUOUS VENT SUPPORT ON NOTED VENT SETTINGS. HHN INLINE TREATMENT WAS GIVEN, NO ADVERSE REACTION NOTED ,PRN SUCTION WAS DONE. TRACH TUBE PATENT AND SECURED. ALARMS SET PER PROTOCOL AND AUDIBLE. MARYANA GAN AT [facility]. WILL CONTINUE TO MONITOR PATIENT Addendum: 08/15/18 at 2102 by FERMÍN DAMON RT Amended: Links added.
[2018-08-16] VITALS: BP 104/62
[2018-08-16] MEDS: BLOOD SUGAR DIAGNOSTIC 1 EACH STRIP IN SCH ×5 (00:53→23:10)
[2018-08-16] MEDS: INSULIN REGULAR, HUMAN 100 UNIT/ML 3 ML VIAL SQ PRN ×5 (00:54→23:10)
[2018-08-16] MEDS: CLONIDINE HCL 0.2 MG TABLET GT PRN ×2 (00:56→05:52)
[2018-08-16] MEDS: IPRATROPIUM NEB FS 0.5 MG/2.5 ML AMPUL.NEB NEB SCH ×4 (01:21→19:49)
[2018-08-16] MEDS: ALBUTEROL FS 2.5 MG/3 ML VIAL.NEB NEB SCH ×4 (01:21→19:49)
[2018-08-16] MEDS: ESOMEPRAZOLE MAG TRIHYDRATE 20 MG CAPSULE.DR GT SCH (05:51)
[2018-08-16] MEDS: PROSOURCE / PROSTAT (PYXIS) 30 ML UDC GT SCH ×5 (05:51→20:46)
[2018-08-16] MEDS: MAG HYDROX/AL HYDROX/SIMETH 30 ML UDC TP SCH ×4 (05:51→22:13)
[2018-08-16 06:00] VITALS: BP 159/87
[2018-08-16 07:36] VITALS: BP 159/75
[2018-08-16] MEDS: POLYVINYL ALCOHOL 15 ML BOTTLE EACHEYE SCH ×2 (09:38→20:46)
[2018-08-16] MEDS: METOPROLOL TARTRATE 50 MG TABLET GT SCH ×2 (09:39→21:24)
[2018-08-16] MEDS: ACIDOPHILUS/BULGARICUS 1 EACH TAB.CHEW GT SCH ×2 (09:39→17:00)
[2018-08-16] MEDS: hydrALAZINE HCL 25 MG TABLET GT SCH ×2 (09:39→17:00)
[2018-08-16] MEDS: METOCLOPRAMIDE HCL 10 MG/10 ML UDC GT SCH ×2 (09:39→20:46)
[2018-08-16] MEDS: VIT B CMPLX 3/FA/VIT C/BIOTIN 1 TAB TABLET GT SCH (09:39)
[2018-08-16] MEDS: SEVELAMER CARBONATE 0.8 GM POWD.PACK GT SCH ×2 (09:48→17:00)
[2018-08-16] MEDS: ASCORBIC ACID 500 MG TABLET GT SCH (09:48)
[2018-08-16] MEDS: ACETAMINOPHEN 650 MG/20 ML UDC- SA PATIENTS-PAIN ONLY GT SCH ×2 (09:48→20:47)
[2018-08-16] MEDS: HEPARIN SODIUM, PORCINE 5000 UNITS/1 ML VIAL SQ SCH ×2 (09:49→20:48)
[2018-08-16] MEDS: INSULIN GLARGINE, 100 UNIT/ML CARTRIDGE SQ SCH ×2 (09:50→21:56)
[2018-08-16] MEDS: Z GUARD REMEDY 4 OZ OINT TP SCH ×2 (10:48→21:24)
[2018-08-16] MEDS: HYDROGEL DRESSING 90 GM TUBE TP SCH ×2 (10:48→21:23)
[2018-08-16] MEDS: DAKINS HALF STRENGTH (0.25%) 480 ML BOTTLE TOP SCH (10:48)
[2018-08-16] MEDS: HYDROGEN PEROXIDE 480 ML BOTTLE TP SCH ×2 (10:48→21:23)
[2018-08-16] MEDS: NYSTATIN TOP POWDER 15 GM BOTTLE TP SCH ×6 (10:48→21:24)
--- NOTE | 2018-08-16 11:53 | NUR ---
LUPILLO communicated to pt. boyfrienchapis Lopez about IDT mtg this Thursday08/20/2018
[2018-08-16 12:00] VITALS: BP 113/83
--- NOTE | 2018-08-16 18:35 | NUR ---
Seen and examined by Hellen Leija NP, no new order given.
[2018-08-16 18:48] VITALS: BP 107/78
[2018-08-16 20:16] VITALS: BP 114/76
[2018-08-16] MEDS: NEPRO 1,000 ML BOTTLE GT PRN (23:39)
[2018-08-17 00:41] VITALS: BP 116/72
[2018-08-17] MEDS: ALBUTEROL FS 2.5 MG/3 ML VIAL.NEB NEB SCH ×4 (01:08→19:49)
[2018-08-17] MEDS: IPRATROPIUM NEB FS 0.5 MG/2.5 ML AMPUL.NEB NEB SCH ×4 (01:08→19:49)
[2018-08-17] MEDS: PROSOURCE / PROSTAT (PYXIS) 30 ML UDC GT SCH ×5 (05:44→20:34)
[2018-08-17] MEDS: ESOMEPRAZOLE MAG TRIHYDRATE 20 MG CAPSULE.DR GT SCH (05:45)
[2018-08-17] MEDS: MAG HYDROX/AL HYDROX/SIMETH 30 ML UDC TP SCH ×4 (05:45→23:34)
[2018-08-17] MEDS: BLOOD SUGAR DIAGNOSTIC 1 EACH STRIP IN SCH ×4 (06:07→23:34)
[2018-08-17] MEDS: INSULIN REGULAR, HUMAN 100 UNIT/ML 3 ML VIAL SQ PRN ×3 (06:08→23:36)
[2018-08-17 06:36] VITALS: BP 124/76
[2018-08-17 07:27] VITALS: BP 123/56
[2018-08-17] MEDS: INSULIN GLARGINE, 100 UNIT/ML CARTRIDGE SQ SCH ×2 (08:15→21:42)
[2018-08-17] MEDS: HEPARIN SODIUM, PORCINE 5000 UNITS/1 ML VIAL SQ SCH ×2 (08:16→20:36)
[2018-08-17] MEDS: METOCLOPRAMIDE HCL 10 MG/10 ML UDC GT SCH ×2 (08:24→20:34)
[2018-08-17] MEDS: VIT B CMPLX 3/FA/VIT C/BIOTIN 1 TAB TABLET GT SCH (08:24)
[2018-08-17] MEDS: ACIDOPHILUS/BULGARICUS 1 EACH TAB.CHEW GT SCH ×2 (08:24→17:35)
[2018-08-17] MEDS: ACETAMINOPHEN 650 MG/20 ML UDC- SA PATIENTS-PAIN ONLY GT SCH ×2 (08:24→20:34)
[2018-08-17] MEDS: ASCORBIC ACID 500 MG TABLET GT SCH (08:24)
[2018-08-17] MEDS: SEVELAMER CARBONATE 0.8 GM POWD.PACK GT SCH ×2 (08:24→17:35)
[2018-08-17] MEDS: POLYVINYL ALCOHOL 15 ML BOTTLE EACHEYE SCH ×2 (08:24→20:34)
[2018-08-17] MEDS: DAKINS HALF STRENGTH (0.25%) 480 ML BOTTLE TOP SCH (09:00)
[2018-08-17] MEDS: NYSTATIN TOP POWDER 15 GM BOTTLE TP SCH ×6 (09:00→21:26)
[2018-08-17] MEDS: HYDROGEN PEROXIDE 480 ML BOTTLE TP SCH ×2 (09:00→21:26)
[2018-08-17] MEDS: Z GUARD REMEDY 4 OZ OINT TP SCH ×2 (09:00→21:26)
[2018-08-17] MEDS: HYDROGEL DRESSING 90 GM TUBE TP SCH ×2 (09:00→21:25)
--- NOTE | 2018-08-17 09:05 | NUR ---
Seen and examined by Dr. Morejon, no new order given.
[2018-08-17 10:57] VITALS: BP 123/79
--- NOTE | 2018-08-17 12:00 | NUR ---
Patient out of facility went to [facility], no vital signs taken at 12n. Addendum: 08/17/18 at 1821 by PO ACOSTA RN Amended: Links added.
[2018-08-17] MEDS: hydrALAZINE HCL 25 MG TABLET GT SCH (17:35)
[2018-08-17 18:00] VITALS: BP 141/70
[2018-08-17 20:19] VITALS: BP 132/96
[2018-08-17] MEDS: METOPROLOL TARTRATE 50 MG TABLET GT SCH (21:26)
[2018-08-18 00:43] VITALS: BP 128/80
[2018-08-18] MEDS: ALBUTEROL FS 2.5 MG/3 ML VIAL.NEB NEB SCH ×4 (00:48→19:54)
[2018-08-18] MEDS: IPRATROPIUM NEB FS 0.5 MG/2.5 ML AMPUL.NEB NEB SCH ×4 (00:48→19:54)
[2018-08-18] MEDS: MAG HYDROX/AL HYDROX/SIMETH 30 ML UDC TP SCH ×4 (05:05→23:14)
[2018-08-18] MEDS: PROSOURCE / PROSTAT (PYXIS) 30 ML UDC GT SCH ×5 (05:05→20:36)
[2018-08-18] MEDS: ESOMEPRAZOLE MAG TRIHYDRATE 20 MG CAPSULE.DR GT SCH (05:05)
[2018-08-18] MEDS: BLOOD SUGAR DIAGNOSTIC 1 EACH STRIP IN SCH ×4 (06:24→23:14)
[2018-08-18] MEDS: INSULIN REGULAR, HUMAN 100 UNIT/ML 3 ML VIAL SQ PRN ×4 (06:25→23:15)
[2018-08-18 06:42] VITALS: BP 125/76
[2018-08-18 07:58] VITALS: BP 160/79
[2018-08-18] MEDS: DAKINS HALF STRENGTH (0.25%) 480 ML BOTTLE TOP SCH (09:00)
[2018-08-18] MEDS: HYDROGEN PEROXIDE 480 ML BOTTLE TP SCH ×2 (09:00→21:16)
[2018-08-18] MEDS: HYDROGEL DRESSING 90 GM TUBE TP SCH ×2 (09:00→21:16)
[2018-08-18] MEDS: NYSTATIN TOP POWDER 15 GM BOTTLE TP SCH ×6 (09:00→21:16)
[2018-08-18] MEDS: Z GUARD REMEDY 4 OZ OINT TP SCH ×2 (09:00→21:16)
[2018-08-18] MEDS: POLYVINYL ALCOHOL 15 ML BOTTLE EACHEYE SCH ×2 (09:09→20:36)
[2018-08-18] MEDS: ACIDOPHILUS/BULGARICUS 1 EACH TAB.CHEW GT SCH ×2 (09:10→17:19)
[2018-08-18] MEDS: hydrALAZINE HCL 25 MG TABLET GT SCH ×2 (09:10→17:19)
[2018-08-18] MEDS: ACETAMINOPHEN 650 MG/20 ML UDC- SA PATIENTS-PAIN ONLY GT SCH ×2 (09:11→20:37)
[2018-08-18] MEDS: ASCORBIC ACID 500 MG TABLET GT SCH (09:11)
[2018-08-18] MEDS: SEVELAMER CARBONATE 0.8 GM POWD.PACK GT SCH ×2 (09:11→17:19)
[2018-08-18] MEDS: VIT B CMPLX 3/FA/VIT C/BIOTIN 1 TAB TABLET GT SCH (09:11)
[2018-08-18] MEDS: METOPROLOL TARTRATE 50 MG TABLET GT SCH ×2 (09:11→21:17)
[2018-08-18] MEDS: METOCLOPRAMIDE HCL 10 MG/10 ML UDC GT SCH ×2 (09:11→20:36)
[2018-08-18] MEDS: HEPARIN SODIUM, PORCINE 5000 UNITS/1 ML VIAL SQ SCH ×2 (09:17→20:37)
[2018-08-18] MEDS: INSULIN GLARGINE, 100 UNIT/ML CARTRIDGE SQ SCH ×2 (09:26→21:56)
[2018-08-18 17:00] VITALS: BP 169/79
[2018-08-18 18:54] VITALS: BP 136/67
[2018-08-18 20:30] VITALS: BP 151/81
[2018-08-19 00:37] VITALS: BP 144/80
[2018-08-19] MEDS: IPRATROPIUM NEB FS 0.5 MG/2.5 ML AMPUL.NEB NEB SCH ×4 (02:10→19:38)
[2018-08-19] MEDS: ALBUTEROL FS 2.5 MG/3 ML VIAL.NEB NEB SCH ×4 (02:10→19:38)
[2018-08-19] MEDS: PROSOURCE / PROSTAT (PYXIS) 30 ML UDC GT SCH ×5 (05:54→21:45)
[2018-08-19] MEDS: ESOMEPRAZOLE MAG TRIHYDRATE 20 MG CAPSULE.DR GT SCH (05:54)
[2018-08-19] MEDS: MAG HYDROX/AL HYDROX/SIMETH 30 ML UDC TP SCH ×4 (05:54→23:00)
[2018-08-19] MEDS: BLOOD SUGAR DIAGNOSTIC 1 EACH STRIP IN SCH ×3 (06:13→17:15)
[2018-08-19] MEDS: INSULIN REGULAR, HUMAN 100 UNIT/ML 3 ML VIAL SQ PRN (06:14)
[2018-08-19 06:37] VITALS: BP 133/78
[2018-08-19 07:27] VITALS: BP 144/70
[2018-08-19] MEDS: Z GUARD REMEDY 4 OZ OINT TP SCH ×2 (09:00→21:46)
[2018-08-19] MEDS: HYDROGEN PEROXIDE 480 ML BOTTLE TP SCH ×2 (09:00→21:46)
[2018-08-19] MEDS: HYDROGEL DRESSING 90 GM TUBE TP SCH ×2 (09:00→21:46)
[2018-08-19] MEDS: NYSTATIN TOP POWDER 15 GM BOTTLE TP SCH ×6 (09:00→21:46)
[2018-08-19] MEDS: DAKINS HALF STRENGTH (0.25%) 480 ML BOTTLE TOP SCH (09:00)
[2018-08-19] MEDS: ACIDOPHILUS/BULGARICUS 1 EACH TAB.CHEW GT SCH ×2 (09:57→17:05)
[2018-08-19] MEDS: ASCORBIC ACID 500 MG TABLET GT SCH (09:57)
[2018-08-19] MEDS: POLYVINYL ALCOHOL 15 ML BOTTLE EACHEYE SCH ×2 (09:57→21:45)
[2018-08-19] MEDS: SEVELAMER CARBONATE 0.8 GM POWD.PACK GT SCH ×2 (09:57→17:05)
[2018-08-19] MEDS: VIT B CMPLX 3/FA/VIT C/BIOTIN 1 TAB TABLET GT SCH (09:57)
[2018-08-19] MEDS: ACETAMINOPHEN 650 MG/20 ML UDC- SA PATIENTS-PAIN ONLY GT SCH ×2 (09:57→21:45)
[2018-08-19] MEDS: METOCLOPRAMIDE HCL 10 MG/10 ML UDC GT SCH ×2 (09:57→21:45)
[2018-08-19] MEDS: HEPARIN SODIUM, PORCINE 5000 UNITS/1 ML VIAL SQ SCH ×2 (09:58→21:46)
[2018-08-19] MEDS: INSULIN GLARGINE, 100 UNIT/ML CARTRIDGE SQ SCH ×2 (09:58→21:46)
[2018-08-19] MEDS: hydrALAZINE HCL 25 MG TABLET GT SCH (17:15)
[2018-08-19] MEDS: LACTULOSE 10 G/15 ML UDC (PYXIS) GT PRN (17:15)
[2018-08-19 18:54] VITALS: BP 134/74
[2018-08-19 20:41] VITALS: BP 129/76
[2018-08-19] MEDS: METOPROLOL TARTRATE 50 MG TABLET GT SCH (22:00)
[2018-08-20] VITALS: BP 122/68
[2018-08-20] MEDS: BLOOD SUGAR DIAGNOSTIC 1 EACH STRIP IN SCH ×4 (00:24→17:43)
[2018-08-20] MEDS: INSULIN REGULAR, HUMAN 100 UNIT/ML 3 ML VIAL SQ PRN ×4 (00:25→17:58)
[2018-08-20] MEDS: IPRATROPIUM NEB FS 0.5 MG/2.5 ML AMPUL.NEB NEB SCH ×4 (01:23→20:30)
[2018-08-20] MEDS: ALBUTEROL FS 2.5 MG/3 ML VIAL.NEB NEB SCH ×4 (01:23→20:30)
[2018-08-20] MEDS: ESOMEPRAZOLE MAG TRIHYDRATE 20 MG CAPSULE.DR GT SCH (05:21)
[2018-08-20] MEDS: CLONIDINE HCL 0.2 MG TABLET GT PRN (05:21)
[2018-08-20] MEDS: PROSOURCE / PROSTAT (PYXIS) 30 ML UDC GT SCH ×5 (05:21→21:04)
[2018-08-20] MEDS: MAG HYDROX/AL HYDROX/SIMETH 30 ML UDC TP SCH ×4 (05:21→22:31)
[2018-08-20] MEDS: NEPRO 1,000 ML BOTTLE GT PRN (05:22)
[2018-08-20 06:00] VITALS: BP 121/69
[2018-08-20 07:24] VITALS: BP 142/71
[2018-08-20] MEDS: VIT B CMPLX 3/FA/VIT C/BIOTIN 1 TAB TABLET GT SCH (09:00)
[2018-08-20] MEDS: DAKINS HALF STRENGTH (0.25%) 480 ML BOTTLE TOP SCH (09:00)
[2018-08-20] MEDS: NYSTATIN TOP POWDER 15 GM BOTTLE TP SCH ×6 (09:00→21:32)
[2018-08-20] MEDS: ACETAMINOPHEN 650 MG/20 ML UDC- SA PATIENTS-PAIN ONLY GT SCH ×2 (09:00→21:04)
[2018-08-20] MEDS: HYDROGEN PEROXIDE 480 ML BOTTLE TP SCH ×2 (09:00→21:32)
[2018-08-20] MEDS: METOPROLOL TARTRATE 50 MG TABLET GT SCH ×2 (09:00→21:05)
[2018-08-20] MEDS: HEPARIN SODIUM, PORCINE 5000 UNITS/1 ML VIAL SQ SCH ×2 (09:00→21:05)
[2018-08-20] MEDS: SEVELAMER CARBONATE 0.8 GM POWD.PACK GT SCH ×2 (09:00→17:43)
[2018-08-20] MEDS: hydrALAZINE HCL 25 MG TABLET GT SCH ×2 (09:00→17:43)
[2018-08-20] MEDS: HYDROGEL DRESSING 90 GM TUBE TP SCH ×2 (09:00→21:32)
[2018-08-20] MEDS: ACIDOPHILUS/BULGARICUS 1 EACH TAB.CHEW GT SCH ×2 (09:00→17:43)
[2018-08-20] MEDS: Z GUARD REMEDY 4 OZ OINT TP SCH ×2 (09:00→21:32)
[2018-08-20] MEDS: INSULIN GLARGINE, 100 UNIT/ML CARTRIDGE SQ SCH ×2 (09:00→21:47)
[2018-08-20] MEDS: ASCORBIC ACID 500 MG TABLET GT SCH (09:00)
[2018-08-20] MEDS: METOCLOPRAMIDE HCL 10 MG/10 ML UDC GT SCH ×2 (09:00→21:04)
[2018-08-20] MEDS: POLYVINYL ALCOHOL 15 ML BOTTLE EACHEYE SCH ×2 (09:00→21:04)
--- NOTE | 2018-08-20 14:30 | NUR ---
INTERDISCIPLINARY TEAM CONFERENCE (IDT) was held today. Resident's boyfriend John was unable to attend today's IDT meeting. Dr. Morejon and the interdisciplinary team reviewed the current plan of care in detail. Orders as well as treatment and medications were reviewed. Resident is stable at this time, continue hemodialysis 3x per week, R index finger abscess treated with Bactrim and local treatment, responding to treatment. B/P medications were reviewed, pharmacy reported it is being held frequently, although it Hydralazine dose was decreased from 25 mg. to 12.5 mg. Order carried out from the previous meeting. Dr. Morejon ordered to DC 5 PM Hydralazine dose. Order carried out.
[2018-08-20 18:03] VITALS: BP 142/7
[2018-08-20 19:50] VITALS: BP 141/71
[2018-08-21] MEDS: BLOOD SUGAR DIAGNOSTIC 1 EACH STRIP IN SCH ×4 (00:29→18:22)
[2018-08-21 00:31] VITALS: BP 115/53
[2018-08-21] MEDS: INSULIN REGULAR, HUMAN 100 UNIT/ML 3 ML VIAL SQ PRN ×3 (00:31→18:30)
[2018-08-21] MEDS: ALBUTEROL FS 2.5 MG/3 ML VIAL.NEB NEB SCH ×4 (01:59→20:12)
[2018-08-21] MEDS: IPRATROPIUM NEB FS 0.5 MG/2.5 ML AMPUL.NEB NEB SCH ×4 (01:59→20:12)
[2018-08-21] MEDS: PROSOURCE / PROSTAT (PYXIS) 30 ML UDC GT SCH ×5 (05:24→21:04)
[2018-08-21] MEDS: ESOMEPRAZOLE MAG TRIHYDRATE 20 MG CAPSULE.DR GT SCH (05:25)
[2018-08-21] MEDS: MAG HYDROX/AL HYDROX/SIMETH 30 ML UDC TP SCH ×4 (05:25→23:47)
--- NOTE | 2018-08-21 05:46 | NUR ---
pt rec'd trached on [facility] vent on ac mode. no resp distress or sob noted. sx'd for mod amt of yellow secretions. alarms are set and audible. vent plugged into red outlet. ambu bag bedside. will continue to monitor Addendum: 08/21/18 at 0558 by LOUISA CRUZ RT Amended: Links added.
--- NOTE | 2018-08-21 06:19 | NUR ---
0445 PT HAD TEMP OF 101.9,NO DISTRESS NOTED,COOLING MEASURES PROVIDED.TYLENOL GIVEN GT ORDERED.LATEST TEMP 99.2,BP 104/73,HR 105,RR 22.WILL CONTINUE TO MONITOR AND WILL ENDORSED.
[2018-08-21 06:23] VITALS: BP 104/73
[2018-08-21 08:05] VITALS: BP 135/100
[2018-08-21] MEDS: Z GUARD REMEDY 4 OZ OINT TP SCH ×2 (09:00→21:37)
[2018-08-21] MEDS: DAKINS HALF STRENGTH (0.25%) 480 ML BOTTLE TOP SCH (09:00)
[2018-08-21] MEDS: HYDROGEN PEROXIDE 480 ML BOTTLE TP SCH ×2 (09:00→21:37)
[2018-08-21] MEDS: HYDROGEL DRESSING 90 GM TUBE TP SCH ×2 (09:00→21:37)
[2018-08-21] MEDS: NYSTATIN TOP POWDER 15 GM BOTTLE TP SCH ×6 (09:00→21:37)
[2018-08-21] MEDS: POLYVINYL ALCOHOL 15 ML BOTTLE EACHEYE SCH ×2 (09:11→21:04)
[2018-08-21] MEDS: ACIDOPHILUS/BULGARICUS 1 EACH TAB.CHEW GT SCH ×2 (09:12→17:53)
[2018-08-21] MEDS: METOCLOPRAMIDE HCL 10 MG/10 ML UDC GT SCH ×2 (09:12→21:04)
[2018-08-21] MEDS: SEVELAMER CARBONATE 0.8 GM POWD.PACK GT SCH ×2 (09:12→17:54)
[2018-08-21] MEDS: ASCORBIC ACID 500 MG TABLET GT SCH (09:13)
[2018-08-21] MEDS: ACETAMINOPHEN 650 MG/20 ML UDC- SA PATIENTS-PAIN ONLY GT SCH ×2 (09:13→21:05)
[2018-08-21] MEDS: VIT B CMPLX 3/FA/VIT C/BIOTIN 1 TAB TABLET GT SCH (09:14)
[2018-08-21] MEDS: INSULIN GLARGINE, 100 UNIT/ML CARTRIDGE SQ SCH ×2 (09:36→22:26)
[2018-08-21] MEDS: HEPARIN SODIUM, PORCINE 5000 UNITS/1 ML VIAL SQ SCH ×2 (09:36→21:05)
--- NOTE | 2018-08-21 16:30 | NUR ---
RT NOTE: PATIENT RECEIVED TRACH ON MECHANICAL VENT. ALARMS VERIFIED AND AUDIBLE. SUCTIONED AND LAVAGED THICK [place]ARK[place]SON SECRETIONS. AMBU BAG AND NEW TRACH AT BEDSIDE.
[2018-08-21 18:00] VITALS: BP 145/75
[2018-08-21] MEDS: NEPRO 1,000 ML BOTTLE GT PRN (18:54)
[2018-08-21 20:14] VITALS: BP 120/54
[2018-08-21] MEDS: METOPROLOL TARTRATE 50 MG TABLET GT SCH (21:06)
[2018-08-22 00:15] VITALS: BP 93/53
[2018-08-22] MEDS: BLOOD SUGAR DIAGNOSTIC 1 EACH STRIP IN SCH ×4 (00:34→18:28)
[2018-08-22] MEDS: INSULIN REGULAR, HUMAN 100 UNIT/ML 3 ML VIAL SQ PRN ×4 (00:35→18:28)
[2018-08-22] MEDS: ALBUTEROL FS 2.5 MG/3 ML VIAL.NEB NEB SCH ×4 (02:07→19:37)
[2018-08-22] MEDS: IPRATROPIUM NEB FS 0.5 MG/2.5 ML AMPUL.NEB NEB SCH ×4 (02:07→19:37)
--- NOTE | 2018-08-22 05:11 | NUR ---
PT REC'D TRACHED ON [facility] VENT PER MD ORDERS. NO RESP DISTRESS OR SOB NOTED. SX'D FOR MOD AMT OF PALE YELLOW SECRETIONS. ALARMS ARE SET AND AUDIBLE. VENT PLUGGED INTO RED OUTLET. AMBU BAG BEDSIDE. WILL CONTINUE TO MONITOR. Addendum: 08/22/18 at 0511 by LOUISA CRUZ RT Amended: Links added.
[2018-08-22] MEDS: ESOMEPRAZOLE MAG TRIHYDRATE 20 MG CAPSULE.DR GT SCH (05:49)
[2018-08-22] MEDS: MAG HYDROX/AL HYDROX/SIMETH 30 ML UDC TP SCH ×4 (05:49→23:00)
[2018-08-22] MEDS: PROSOURCE / PROSTAT (PYXIS) 30 ML UDC GT SCH ×5 (05:49→20:53)
[2018-08-22 06:12] VITALS: BP 137/71
[2018-08-22 07:30] VITALS: BP 145/88
[2018-08-22] MEDS: METOPROLOL TARTRATE 50 MG TABLET GT SCH ×2 (09:00→21:56)
[2018-08-22] MEDS: hydrALAZINE HCL 25 MG TABLET GT SCH (09:00)
[2018-08-22] MEDS: DAKINS HALF STRENGTH (0.25%) 480 ML BOTTLE TOP SCH (09:00)
[2018-08-22] MEDS: HYDROGEN PEROXIDE 480 ML BOTTLE TP SCH ×2 (09:00→20:57)
[2018-08-22] MEDS: NYSTATIN TOP POWDER 15 GM BOTTLE TP SCH ×6 (09:00→20:57)
[2018-08-22] MEDS: HYDROGEL DRESSING 90 GM TUBE TP SCH ×2 (09:00→20:56)
[2018-08-22] MEDS: Z GUARD REMEDY 4 OZ OINT TP SCH ×2 (09:00→20:57)
--- NOTE | 2018-08-22 09:06 | NUR ---
RT PT REC'D TRACH ON [facility] VENT ON NOTED SETTINGS PER MD ORDERS. TRACH IS PATENT AND SECURED. MASTIC SPRAYER DONE. TX GIVEN WITH NO ADVERSE REACTION NOTED. SX DONE PRN. VENT PLUGGED INTO RED OUTLET. ALARMS ON AND AUDIBLE. NACHO PAN @ BEDSIDE. NO RESP DISTRESS AT THIS TIME. WILL CONTINUE TO MONITOR. Addendum: 08/22/18 at 0908 by LONA PAGAN RT Amended: Links added.
[2018-08-22] MEDS: ACIDOPHILUS/BULGARICUS 1 EACH TAB.CHEW GT SCH ×2 (09:28→17:00)
[2018-08-22] MEDS: POLYVINYL ALCOHOL 15 ML BOTTLE EACHEYE SCH ×2 (09:28→20:52)
[2018-08-22] MEDS: VIT B CMPLX 3/FA/VIT C/BIOTIN 1 TAB TABLET GT SCH (09:29)
[2018-08-22] MEDS: METOCLOPRAMIDE HCL 10 MG/10 ML UDC GT SCH ×2 (09:30→20:54)
[2018-08-22] MEDS: SEVELAMER CARBONATE 0.8 GM POWD.PACK GT SCH ×2 (09:31→17:00)
[2018-08-22] MEDS: ACETAMINOPHEN 650 MG/20 ML UDC- SA PATIENTS-PAIN ONLY GT SCH ×2 (09:32→20:54)
[2018-08-22] MEDS: ASCORBIC ACID 500 MG TABLET GT SCH (09:32)
[2018-08-22] MEDS: HEPARIN SODIUM, PORCINE 5000 UNITS/1 ML VIAL SQ SCH ×2 (09:53→20:55)
[2018-08-22] MEDS: INSULIN GLARGINE, 100 UNIT/ML CARTRIDGE SQ SCH ×2 (09:54→21:57)
[2018-08-22 12:00] VITALS: BP 130/55
[2018-08-22 18:00] VITALS: BP 139/76
[2018-08-22 20:15] VITALS: BP 150/79
[2018-08-23] MEDS: BLOOD SUGAR DIAGNOSTIC 1 EACH STRIP IN SCH ×5 (00:18→23:59)
[2018-08-23] MEDS: INSULIN REGULAR, HUMAN 100 UNIT/ML 3 ML VIAL SQ PRN ×4 (00:20→18:03)
[2018-08-23] MEDS: NEPRO 1,000 ML BOTTLE GT PRN (00:46)
[2018-08-23 01:04] VITALS: BP 142/76
[2018-08-23] MEDS: ALBUTEROL FS 2.5 MG/3 ML VIAL.NEB NEB SCH ×4 (01:18→19:20)
[2018-08-23] MEDS: IPRATROPIUM NEB FS 0.5 MG/2.5 ML AMPUL.NEB NEB SCH ×4 (01:18→19:20)
[2018-08-23] MEDS: MAG HYDROX/AL HYDROX/SIMETH 30 ML UDC TP SCH ×4 (05:51→23:59)
[2018-08-23] MEDS: PROSOURCE / PROSTAT (PYXIS) 30 ML UDC GT SCH ×5 (05:51→20:53)
[2018-08-23] MEDS: ESOMEPRAZOLE MAG TRIHYDRATE 20 MG CAPSULE.DR GT SCH (05:52)
[2018-08-23 06:14] VITALS: BP 121/74
[2018-08-23 08:05] VITALS: BP 149/70
[2018-08-23] MEDS: Z GUARD REMEDY 4 OZ OINT TP SCH ×2 (09:00→20:55)
[2018-08-23] MEDS: HYDROGEN PEROXIDE 480 ML BOTTLE TP SCH ×2 (09:00→20:55)
[2018-08-23] MEDS: DAKINS HALF STRENGTH (0.25%) 480 ML BOTTLE TOP SCH (09:00)
[2018-08-23] MEDS: hydrALAZINE HCL 25 MG TABLET GT SCH (09:00)
[2018-08-23] MEDS: NYSTATIN TOP POWDER 15 GM BOTTLE TP SCH ×6 (09:00→20:55)
[2018-08-23] MEDS: POLYVINYL ALCOHOL 15 ML BOTTLE EACHEYE SCH ×2 (09:54→20:52)
[2018-08-23] MEDS: METOCLOPRAMIDE HCL 10 MG/10 ML UDC GT SCH ×2 (09:55→20:53)
[2018-08-23] MEDS: SEVELAMER CARBONATE 0.8 GM POWD.PACK GT SCH ×2 (09:55→17:00)
[2018-08-23] MEDS: ACETAMINOPHEN 650 MG/20 ML UDC- SA PATIENTS-PAIN ONLY GT SCH ×2 (09:55→20:54)
[2018-08-23] MEDS: METOPROLOL TARTRATE 50 MG TABLET GT SCH ×2 (09:55→21:24)
[2018-08-23] MEDS: ACIDOPHILUS/BULGARICUS 1 EACH TAB.CHEW GT SCH ×2 (09:55→17:00)
[2018-08-23] MEDS: ASCORBIC ACID 500 MG TABLET GT SCH (09:55)
[2018-08-23] MEDS: VIT B CMPLX 3/FA/VIT C/BIOTIN 1 TAB TABLET GT SCH (09:55)
[2018-08-23] MEDS: HEPARIN SODIUM, PORCINE 5000 UNITS/1 ML VIAL SQ SCH ×2 (09:56→20:55)
[2018-08-23] MEDS: INSULIN GLARGINE, 100 UNIT/ML CARTRIDGE SQ SCH ×2 (09:57→21:25)
[2018-08-23] MEDS: HYDROGEL DRESSING 90 GM TUBE TP SCH ×2 (10:30→20:55)
[2018-08-23 12:00] VITALS: BP 118/70
[2018-08-23 18:58] VITALS: BP 128/60
[2018-08-23 20:19] VITALS: BP 146/56
[2018-08-24 00:23] VITALS: BP 119/54
[2018-08-24] MEDS: IPRATROPIUM NEB FS 0.5 MG/2.5 ML AMPUL.NEB NEB SCH ×4 (00:42→19:25)
[2018-08-24] MEDS: ALBUTEROL FS 2.5 MG/3 ML VIAL.NEB NEB SCH ×4 (00:42→19:25)
[2018-08-24] MEDS: NEPRO 1,000 ML BOTTLE GT PRN (05:32)
[2018-08-24] MEDS: MAG HYDROX/AL HYDROX/SIMETH 30 ML UDC TP SCH ×4 (05:37→23:03)
[2018-08-24] MEDS: PROSOURCE / PROSTAT (PYXIS) 30 ML UDC GT SCH ×5 (05:37→20:54)
[2018-08-24] MEDS: BLOOD SUGAR DIAGNOSTIC 1 EACH STRIP IN SCH ×3 (05:37→18:06)
[2018-08-24] MEDS: ESOMEPRAZOLE MAG TRIHYDRATE 20 MG CAPSULE.DR GT SCH (05:37)
[2018-08-24] MEDS: INSULIN REGULAR, HUMAN 100 UNIT/ML 3 ML VIAL SQ PRN ×3 (05:39→18:06)
[2018-08-24 06:25] VITALS: BP 127/69
[2018-08-24 07:36] VITALS: BP 128/85
[2018-08-24 07:47] LABS: ALBUMIN 2.8 g/dL (3.4-5.0); BILIRUBIN,TOTAL 0.4 mg/dL (0.2-1.0); CALCIUM, SERUM 8.9 mg/dL (8.5-10.1); CREATININE 3.7 mg/dL (0.6-1.3); MAGNESIUM 2.4 mg/dL (1.8-2.4); PHOSPHORUS 4.2 mg/dL (2.5-4.9); POTASSIUM 4.3 mmol/L (3.5-5.1); TOTAL PROTEIN, SERUM 7.8 g/dL (6.4-8.2)
[2018-08-24 07:51] VITALS: BP 129/76
[2018-08-24 08:27] LABS: BASOPHILS # (AUTO) 0.1 /CMM (0.0-0.2); EOSINOPHILS % (AUTO) 2.8 % (0.0-6.0); HEMATOCRIT 30 % (33-45); HEMOGLOBIN 9.6 g/dL (11.5-14.8); LYMPHOCYTES # (AUTO) 1.3 /CMM (0.8-4.8); LYMPHOCYTES % (AUTO) 12.1 % (20.0-44.0); MEAN CORPUSCULAR HGB CONC 32 g/dl (31.0-36.0); MEAN CORPUSCULAR VOLUME 88 fL (82-100); MONOCYTES # (AUTO) 0.5 /CMM (0.1-1.30); MONOCYTES % (AUTO) 4.9 % (2.0-12.0); NEUTROPHILS # (AUTO) 8.8 /CMM (1.8-8.9); NEUTROPHILS % (AUTO) 79.2 % (43.0-81.0); RED BLOOD CELL COUNT(AUTO) 3.39 MIL/uL (4.0-5.2); WHITE BLOOD COUNT (AUTO) 11.1 K/uL (4.3-11.0)
[2018-08-24] MEDS: ACETAMINOPHEN 650 MG/20 ML UDC- SA PATIENTS-PAIN ONLY GT SCH ×2 (09:00→20:55)
[2018-08-24] MEDS: HYDROGEN PEROXIDE 480 ML BOTTLE TP SCH ×2 (09:30→20:56)
[2018-08-24] MEDS: Z GUARD REMEDY 4 OZ OINT TP SCH ×2 (09:30→20:57)
[2018-08-24] MEDS: NYSTATIN TOP POWDER 15 GM BOTTLE TP SCH ×6 (09:30→20:57)
[2018-08-24] MEDS: HYDROGEL DRESSING 90 GM TUBE TP SCH ×2 (09:30→20:56)
--- NOTE | 2018-08-24 09:35 | NUR ---
Late entry for 08/23/18 Dr Wall ordered CBC, CMP, Mg, Phos, urine culture and sputum culture. Pt afebrile, T 98.2 F. Unable to collect urine as pt is anuric.
[2018-08-24] MEDS: METOCLOPRAMIDE HCL 10 MG/10 ML UDC GT SCH ×2 (09:45→20:55)
[2018-08-24] MEDS: ASCORBIC ACID 500 MG TABLET GT SCH (09:45)
[2018-08-24] MEDS: SEVELAMER CARBONATE 0.8 GM POWD.PACK GT SCH ×2 (09:45→17:49)
[2018-08-24] MEDS: VIT B CMPLX 3/FA/VIT C/BIOTIN 1 TAB TABLET GT SCH (09:45)
[2018-08-24] MEDS: POLYVINYL ALCOHOL 15 ML BOTTLE EACHEYE SCH ×2 (09:45→20:54)
[2018-08-24] MEDS: ACIDOPHILUS/BULGARICUS 1 EACH TAB.CHEW GT SCH ×2 (09:45→17:49)
[2018-08-24] MEDS: HEPARIN SODIUM, PORCINE 5000 UNITS/1 ML VIAL SQ SCH ×2 (09:46→20:56)
[2018-08-24] MEDS: INSULIN GLARGINE, 100 UNIT/ML CARTRIDGE SQ SCH ×2 (09:47→21:48)
--- NOTE | 2018-08-24 10:10 | NUR ---
Resident was picked up for dialysis. Awake, no s/sx of resp distress. Trach secured and midline. GT intact and patent. Dialysis site on RFA intact, no bleeding noted, positive bruit/trill. All emergency equipment taken on transport.
--- NOTE | 2018-08-24 11:25 | NUR ---
Notified Dr Wall that urine has not been collected since pt is anuric. He said to [place] urine culture order.
[2018-08-24 13:58] LABS: BAND % (MANUAL) 3 % (0.0-5.0); LYMPHOCYTES % (MANUAL) 13 % (16-48); MONOCYTES % (MANUAL) 6 % (0-11.0); NEUTROPHILS % (MANUAL) 78 (42-76)
[2018-08-24 14:13] LABS: PLATELET COUNT (AUTO) 145 /CMM (150-450)
--- NOTE | 2018-08-24 15:30 | NUR ---
Resident came back from dialysis. Awake, no signs of resp distress. Dialysis site on RFA with pressure dressing, no bleeding noted. Put back to bed and made comfortable. Will continue to monitor. VS BP-146/86, R-88, TMP. 98.
[2018-08-24 18:56] VITALS: BP 145/60
[2018-08-24 20:52] VITALS: BP 112/55
[2018-08-24] MEDS: POVIDONE-IODINE OINT 28.4 GM TUBE TP SCH (20:56)
[2018-08-24] MEDS: METOPROLOL TARTRATE 50 MG TABLET GT SCH (21:47)
[2018-08-25] MEDS: BLOOD SUGAR DIAGNOSTIC 1 EACH STRIP IN SCH ×5 (00:07→23:11)
[2018-08-25] MEDS: INSULIN REGULAR, HUMAN 100 UNIT/ML 3 ML VIAL SQ PRN ×5 (00:08→23:12)
[2018-08-25 00:23] VITALS: BP 92/52
[2018-08-25] MEDS: ALBUTEROL FS 2.5 MG/3 ML VIAL.NEB NEB SCH ×4 (01:04→19:42)
[2018-08-25] MEDS: IPRATROPIUM NEB FS 0.5 MG/2.5 ML AMPUL.NEB NEB SCH ×4 (01:04→19:42)
[2018-08-25] MEDS: PROSOURCE / PROSTAT (PYXIS) 30 ML UDC GT SCH ×5 (05:30→21:26)
[2018-08-25] MEDS: MAG HYDROX/AL HYDROX/SIMETH 30 ML UDC TP SCH ×4 (05:31→23:11)
[2018-08-25] MEDS: ESOMEPRAZOLE MAG TRIHYDRATE 20 MG CAPSULE.DR GT SCH (05:32)
[2018-08-25 06:16] VITALS: BP 128/69
[2018-08-25 08:12] VITALS: BP 153/74
[2018-08-25] MEDS: Z GUARD REMEDY 4 OZ OINT TP SCH ×2 (09:00→21:59)
[2018-08-25] MEDS: NYSTATIN TOP POWDER 15 GM BOTTLE TP SCH ×6 (09:00→22:00)
[2018-08-25] MEDS: HYDROGEL DRESSING 90 GM TUBE TP SCH ×2 (09:00→21:59)
[2018-08-25] MEDS: POVIDONE-IODINE OINT 28.4 GM TUBE TP SCH ×2 (09:00→21:59)
[2018-08-25] MEDS: HYDROGEN PEROXIDE 480 ML BOTTLE TP SCH ×2 (09:00→21:59)
[2018-08-25] MEDS: HEPARIN SODIUM, PORCINE 5000 UNITS/1 ML VIAL SQ SCH ×2 (09:10→21:27)
[2018-08-25] MEDS: INSULIN GLARGINE, 100 UNIT/ML CARTRIDGE SQ SCH ×2 (09:11→22:20)
[2018-08-25] MEDS: METOPROLOL TARTRATE 50 MG TABLET GT SCH ×2 (09:13→21:27)
[2018-08-25] MEDS: hydrALAZINE HCL 25 MG TABLET GT SCH (09:13)
[2018-08-25] MEDS: ACIDOPHILUS/BULGARICUS 1 EACH TAB.CHEW GT SCH ×2 (09:21→16:45)
[2018-08-25] MEDS: POLYVINYL ALCOHOL 15 ML BOTTLE EACHEYE SCH ×2 (09:21→21:26)
[2018-08-25] MEDS: ASCORBIC ACID 500 MG TABLET GT SCH (09:22)
[2018-08-25] MEDS: SEVELAMER CARBONATE 0.8 GM POWD.PACK GT SCH ×2 (09:22→16:45)
[2018-08-25] MEDS: ACETAMINOPHEN 650 MG/20 ML UDC- SA PATIENTS-PAIN ONLY GT SCH ×2 (09:22→21:26)
[2018-08-25] MEDS: METOCLOPRAMIDE HCL 10 MG/10 ML UDC GT SCH ×2 (09:22→21:26)
[2018-08-25] MEDS: VIT B CMPLX 3/FA/VIT C/BIOTIN 1 TAB TABLET GT SCH (09:22)
[2018-08-25 12:50] VITALS: BP 121/73
[2018-08-25] MEDS: NEPRO 1,000 ML BOTTLE GT PRN (15:35)
[2018-08-25 18:12] VITALS: BP 124/61
[2018-08-25 20:18] VITALS: BP 138/55
--- NOTE | 2018-08-25 20:25 | NUR ---
RT NOTE PATIENT RECEIVED ON MECHANICAL VENTILATION. CUFF CHECKED VIA PILLOWCASE MAKER. VENT PLUGGED INTO RED OUTLET. ALARMS ON AND AUDIBLE. TX GIVEN, NO ADVERSE REACTIONS NOTED. SX DONE, MODERATE THICK WHITE SECRETIONS NOTED. HME REPLACED. WILL MONITOR T/O SHIFT. Addendum: 08/25/18 at 2026 by CARI TRIANA RT Amended: Links added.
[2018-08-26 00:16] VITALS: BP 128/69
[2018-08-26] MEDS: IPRATROPIUM NEB FS 0.5 MG/2.5 ML AMPUL.NEB NEB SCH ×4 (01:28→19:36)
[2018-08-26] MEDS: ALBUTEROL FS 2.5 MG/3 ML VIAL.NEB NEB SCH ×4 (01:28→19:36)
[2018-08-26] MEDS: ESOMEPRAZOLE MAG TRIHYDRATE 20 MG CAPSULE.DR GT SCH (05:22)
[2018-08-26] MEDS: BLOOD SUGAR DIAGNOSTIC 1 EACH STRIP IN SCH ×3 (05:22→17:05)
[2018-08-26] MEDS: PROSOURCE / PROSTAT (PYXIS) 30 ML UDC GT SCH ×5 (05:22→21:31)
[2018-08-26] MEDS: MAG HYDROX/AL HYDROX/SIMETH 30 ML UDC TP SCH ×4 (05:22→23:00)
[2018-08-26] MEDS: INSULIN REGULAR, HUMAN 100 UNIT/ML 3 ML VIAL SQ PRN ×2 (05:23→17:14)
[2018-08-26 06:11] VITALS: BP 156/69
[2018-08-26 07:48] VITALS: BP 151/54
[2018-08-26] MEDS: HEPARIN SODIUM, PORCINE 5000 UNITS/1 ML VIAL SQ SCH ×2 (08:01→21:32)
[2018-08-26] MEDS: INSULIN GLARGINE, 100 UNIT/ML CARTRIDGE SQ SCH ×2 (08:08→22:04)
[2018-08-26] MEDS: METOCLOPRAMIDE HCL 10 MG/10 ML UDC GT SCH ×2 (09:53→21:31)
[2018-08-26] MEDS: VIT B CMPLX 3/FA/VIT C/BIOTIN 1 TAB TABLET GT SCH (09:53)
[2018-08-26] MEDS: POLYVINYL ALCOHOL 15 ML BOTTLE EACHEYE SCH ×2 (09:53→21:31)
[2018-08-26] MEDS: ACIDOPHILUS/BULGARICUS 1 EACH TAB.CHEW GT SCH ×2 (09:53→17:04)
[2018-08-26] MEDS: SEVELAMER CARBONATE 0.8 GM POWD.PACK GT SCH ×2 (09:53→17:04)
[2018-08-26] MEDS: ACETAMINOPHEN 650 MG/20 ML UDC- SA PATIENTS-PAIN ONLY GT SCH ×2 (09:54→10:54)
[2018-08-26] MEDS: HYDROGEN PEROXIDE 480 ML BOTTLE TP SCH ×2 (09:54→21:55)
[2018-08-26] MEDS: POVIDONE-IODINE OINT 28.4 GM TUBE TP SCH ×2 (09:54→21:55)
[2018-08-26] MEDS: Z GUARD REMEDY 4 OZ OINT TP SCH ×2 (09:54→21:55)
[2018-08-26] MEDS: NYSTATIN TOP POWDER 15 GM BOTTLE TP SCH ×6 (09:54→21:55)
[2018-08-26] MEDS: HYDROGEL DRESSING 90 GM TUBE TP SCH ×2 (09:54→21:55)
[2018-08-26] MEDS: ASCORBIC ACID 500 MG TABLET GT SCH (09:54)
--- NOTE | 2018-08-26 10:30 | NUR ---
RESIDENT LEFT TO DIALYSIS CENTER, WAS SUCTIONED PRIOR TO LEAVING, NO SOB, NO RESPIRATORY DISTRESS NOTED.
--- NOTE | 2018-08-26 12:00 | NUR ---
CHECK BLOOD PRESSURE EVERY 6 HOURS AT 12N NOT DONE, RESIDENT AT DIALYSIS FACILITY. Addendum: 08/26/18 at 1405 by PO ACOSTA RN Amended: Links added.
--- NOTE | 2018-08-26 12:00 | NUR ---
NO VITAL SIGNS WERE TAKEN AT 12N, RESIDENT OUT OF FACILITY (DIALYSIS CENTER). Addendum: 08/26/18 at 1306 by PO ACOSTA RN Amended: Links added.
--- NOTE | 2018-08-26 14:51 | NUR ---
RESIDENT RETURNED FROM DIALYSIS CENTER WITH THE FOLLOWING VITAL SIGNS BLOOD PRESSURE 149/54, PULSE 91, RESPIRATIONS 16, TEMP 98.9, PAIN 0/10, WAS SUCTIONED AT ARRIVAL AND CONNECTED TO VENTILATOR. ON RIGHT FOREARM AV FISTULA, SITE INTACT, DRESSING INTACT, NO BLEEDING, NO REDNESS, AV SHUNT PRESENT. PRE DIALYSIS WEIGHT 79.6 KG, POST DIALYSIS WEIGHT 78.4KG.
[2018-08-26 18:00] VITALS: BP 150/73
--- NOTE | 2018-08-26 19:30 | NUR ---
Seen by THOMAS Leija no new order.
[2018-08-26 19:43] VITALS: BP 117/66
[2018-08-26] MEDS: METOPROLOL TARTRATE 50 MG TABLET GT SCH (21:32)
[2018-08-27] MEDS: BLOOD SUGAR DIAGNOSTIC 1 EACH STRIP IN SCH ×5 (00:10→23:08)
[2018-08-27] MEDS: INSULIN REGULAR, HUMAN 100 UNIT/ML 3 ML VIAL SQ PRN ×5 (00:11→23:17)
[2018-08-27 00:17] VITALS: BP 103/54
[2018-08-27] MEDS: IPRATROPIUM NEB FS 0.5 MG/2.5 ML AMPUL.NEB NEB SCH ×4 (00:41→19:44)
[2018-08-27] MEDS: ALBUTEROL FS 2.5 MG/3 ML VIAL.NEB NEB SCH ×4 (00:41→19:45)
--- NOTE | 2018-08-27 03:47 | NUR ---
RT NOTE PT RECEIVED ON [facility] VENT ON THE NOTED SETTINGS. NO RESP DISTRESS NOTED AT THIS TIME. PT SX'D. BREATHING TX GIVEN, NO ADVERSE REACTIONS NOTED. AMBU BAG AND SPARE TRACH ARE AT BEDSIDE. VENT IS PLUGGED INTO RED OUTLET. ALARMS ARE ON AND AUDIBLE. WILL CONT TO MONITOR PT. Addendum: 08/27/18 at 0348 by SHANI PEÑA RT Amended: Links added.
[2018-08-27] MEDS: MAG HYDROX/AL HYDROX/SIMETH 30 ML UDC TP SCH ×4 (05:53→22:14)
[2018-08-27] MEDS: ESOMEPRAZOLE MAG TRIHYDRATE 20 MG CAPSULE.DR GT SCH (05:53)
[2018-08-27] MEDS: PROSOURCE / PROSTAT (PYXIS) 30 ML UDC GT SCH ×5 (05:53→21:00)
[2018-08-27 06:30] VITALS: BP 127/58
[2018-08-27] MEDS: NEPRO 1,000 ML BOTTLE GT PRN (06:34)
[2018-08-27 07:25] VITALS: BP 184/73
[2018-08-27] MEDS: NYSTATIN TOP POWDER 15 GM BOTTLE TP SCH ×6 (09:00→21:00)
[2018-08-27] MEDS: HYDROGEL DRESSING 90 GM TUBE TP SCH ×2 (09:00→21:00)
[2018-08-27] MEDS: POVIDONE-IODINE OINT 28.4 GM TUBE TP SCH ×2 (09:00→21:00)
[2018-08-27] MEDS: HYDROGEN PEROXIDE 480 ML BOTTLE TP SCH ×2 (09:00→21:00)
[2018-08-27] MEDS: Z GUARD REMEDY 4 OZ OINT TP SCH ×2 (09:00→21:00)
--- NOTE | 2018-08-27 09:31 | NUR ---
RT PATIENT WAS RECEIVED ON CONTINUOUS VENT SUPPORT ON NOTED VENT SETTINGS. HHN INLINE TREATMENT WAS GIVEN, NO ADVERSE REACTION NOTED ,PRN SUCTION WAS DONE. TRACH TUBE PATENT AND SECURED. ALARMS SET PER PROTOCOL AND AUDIBLE. MARYANA GAN AT [facility]. WILL CONTINUE TO MONITOR PATIENT Addendum: 08/27/18 at 0931 by FERMÍN DAMON RT Amended: Links added.
[2018-08-27] MEDS: POLYVINYL ALCOHOL 15 ML BOTTLE EACHEYE SCH ×2 (09:53→21:00)
[2018-08-27] MEDS: hydrALAZINE HCL 25 MG TABLET GT SCH (09:54)
[2018-08-27] MEDS: ACIDOPHILUS/BULGARICUS 1 EACH TAB.CHEW GT SCH ×2 (09:54→17:39)
[2018-08-27] MEDS: METOPROLOL TARTRATE 50 MG TABLET GT SCH ×2 (09:55→22:13)
[2018-08-27] MEDS: METOCLOPRAMIDE HCL 10 MG/10 ML UDC GT SCH ×2 (09:55→21:00)
[2018-08-27] MEDS: SEVELAMER CARBONATE 0.8 GM POWD.PACK GT SCH ×2 (09:55→17:39)
[2018-08-27] MEDS: ASCORBIC ACID 500 MG TABLET GT SCH (09:55)
[2018-08-27] MEDS: HEPARIN SODIUM, PORCINE 5000 UNITS/1 ML VIAL SQ SCH ×2 (09:56→21:00)
[2018-08-27] MEDS: INSULIN GLARGINE, 100 UNIT/ML CARTRIDGE SQ SCH ×2 (09:57→22:14)
[2018-08-27] MEDS: VIT B CMPLX 3/FA/VIT C/BIOTIN 1 TAB TABLET GT SCH (09:58)
[2018-08-27 12:00] VITALS: BP 124/49
[2018-08-27 18:00] VITALS: BP 120/53
[2018-08-27 20:00] VITALS: BP 121/54
[2018-08-27] MEDS: ACETAMINOPHEN 650 MG/20 ML UDC- SA PATIENTS-PAIN ONLY GT SCH (21:00)
[2018-08-28] VITALS: BP 143/72
[2018-08-28] MEDS: ALBUTEROL FS 2.5 MG/3 ML VIAL.NEB NEB SCH ×4 (01:38→19:55)
[2018-08-28] MEDS: IPRATROPIUM NEB FS 0.5 MG/2.5 ML AMPUL.NEB NEB SCH ×4 (01:38→19:55)
[2018-08-28] MEDS: MAG HYDROX/AL HYDROX/SIMETH 30 ML UDC TP SCH ×4 (05:00→23:18)
[2018-08-28] MEDS: PROSOURCE / PROSTAT (PYXIS) 30 ML UDC GT SCH ×5 (05:00→21:33)
[2018-08-28 06:00] VITALS: BP 134/88
[2018-08-28] MEDS: ESOMEPRAZOLE MAG TRIHYDRATE 20 MG CAPSULE.DR GT SCH (06:18)
[2018-08-28] MEDS: BLOOD SUGAR DIAGNOSTIC 1 EACH STRIP IN SCH ×5 (06:18→23:29)
[2018-08-28] MEDS: INSULIN REGULAR, HUMAN 100 UNIT/ML 3 ML VIAL SQ PRN ×4 (06:19→23:31)
[2018-08-28 07:27] VITALS: BP 159/80
[2018-08-28] MEDS: VIT B CMPLX 3/FA/VIT C/BIOTIN 1 TAB TABLET GT SCH (08:23)
[2018-08-28] MEDS: POLYVINYL ALCOHOL 15 ML BOTTLE EACHEYE SCH ×2 (08:23→21:32)
[2018-08-28] MEDS: SEVELAMER CARBONATE 0.8 GM POWD.PACK GT SCH ×2 (08:23→16:29)
[2018-08-28] MEDS: METOCLOPRAMIDE HCL 10 MG/10 ML UDC GT SCH ×2 (08:23→21:34)
[2018-08-28] MEDS: ACIDOPHILUS/BULGARICUS 1 EACH TAB.CHEW GT SCH ×2 (08:23→16:29)
[2018-08-28] MEDS: POVIDONE-IODINE OINT 28.4 GM TUBE TP SCH ×2 (08:24→21:36)
[2018-08-28] MEDS: ASCORBIC ACID 500 MG TABLET GT SCH (08:24)
[2018-08-28] MEDS: ACETAMINOPHEN 650 MG/20 ML UDC- SA PATIENTS-PAIN ONLY GT SCH ×2 (08:24→21:34)
[2018-08-28] MEDS: HYDROGEN PEROXIDE 480 ML BOTTLE TP SCH ×2 (08:25→21:36)
[2018-08-28] MEDS: HYDROGEL DRESSING 90 GM TUBE TP SCH ×2 (08:25→21:36)
[2018-08-28] MEDS: NYSTATIN TOP POWDER 15 GM BOTTLE TP SCH ×6 (08:26→21:36)
[2018-08-28] MEDS: Z GUARD REMEDY 4 OZ OINT TP SCH ×2 (08:26→21:36)
[2018-08-28] MEDS: HEPARIN SODIUM, PORCINE 5000 UNITS/1 ML VIAL SQ SCH ×2 (08:28→21:36)
[2018-08-28] MEDS: INSULIN GLARGINE, 100 UNIT/ML CARTRIDGE SQ SCH ×2 (08:29→21:51)
--- NOTE | 2018-08-28 10:40 | NUR ---
RN NOTE PATIENT LEFT FACILITY VIA AMBULANCE FOR HD.
[2018-08-28 15:07] VITALS: BP 157/77
--- NOTE | 2018-08-28 15:08 | NUR ---
RN NOTE PATIENT BACK FROM HD - TWO LITERS REMOVED. VITAL SIGNS ARE STABLE.
[2018-08-28 20:47] VITALS: BP 146/67
[2018-08-28] MEDS: METOPROLOL TARTRATE 50 MG TABLET GT SCH (21:38)
[2018-08-29] VITALS: BP 146/67
[2018-08-29] MEDS: ALBUTEROL FS 2.5 MG/3 ML VIAL.NEB NEB SCH ×4 (01:23→19:35)
[2018-08-29] MEDS: IPRATROPIUM NEB FS 0.5 MG/2.5 ML AMPUL.NEB NEB SCH ×4 (01:23→19:35)
[2018-08-29] MEDS: MAG HYDROX/AL HYDROX/SIMETH 30 ML UDC TP SCH ×4 (05:56→22:23)
[2018-08-29] MEDS: ESOMEPRAZOLE MAG TRIHYDRATE 20 MG CAPSULE.DR GT SCH (05:56)
[2018-08-29] MEDS: PROSOURCE / PROSTAT (PYXIS) 30 ML UDC GT SCH ×5 (05:56→21:06)
[2018-08-29 06:00] VITALS: BP 144/68
[2018-08-29] MEDS: BLOOD SUGAR DIAGNOSTIC 1 EACH STRIP IN SCH ×4 (06:08→23:24)
[2018-08-29] MEDS: INSULIN REGULAR, HUMAN 100 UNIT/ML 3 ML VIAL SQ PRN ×4 (06:10→23:25)
[2018-08-29 07:40] VITALS: BP 136/67
[2018-08-29] MEDS: POVIDONE-IODINE OINT 28.4 GM TUBE TP SCH ×2 (09:00→21:54)
[2018-08-29] MEDS: METOPROLOL TARTRATE 50 MG TABLET GT SCH ×2 (09:00→21:07)
[2018-08-29] MEDS: hydrALAZINE HCL 25 MG TABLET GT SCH (09:00)
[2018-08-29] MEDS: HYDROGEL DRESSING 90 GM TUBE TP SCH ×2 (09:00→21:55)
[2018-08-29] MEDS: HYDROGEN PEROXIDE 480 ML BOTTLE TP SCH ×2 (09:00→21:55)
[2018-08-29] MEDS: NYSTATIN TOP POWDER 15 GM BOTTLE TP SCH ×6 (09:00→21:55)
[2018-08-29] MEDS: Z GUARD REMEDY 4 OZ OINT TP SCH ×2 (09:00→21:55)
[2018-08-29] MEDS: POLYVINYL ALCOHOL 15 ML BOTTLE EACHEYE SCH ×2 (09:30→21:06)
[2018-08-29] MEDS: ACIDOPHILUS/BULGARICUS 1 EACH TAB.CHEW GT SCH ×2 (09:31→16:46)
[2018-08-29] MEDS: SEVELAMER CARBONATE 0.8 GM POWD.PACK GT SCH ×2 (09:32→16:46)
[2018-08-29] MEDS: ASCORBIC ACID 500 MG TABLET GT SCH (09:32)
[2018-08-29] MEDS: METOCLOPRAMIDE HCL 10 MG/10 ML UDC GT SCH ×2 (09:32→21:06)
[2018-08-29] MEDS: VIT B CMPLX 3/FA/VIT C/BIOTIN 1 TAB TABLET GT SCH (09:32)
[2018-08-29] MEDS: ACETAMINOPHEN 650 MG/20 ML UDC- SA PATIENTS-PAIN ONLY GT SCH ×2 (09:32→21:06)
[2018-08-29] MEDS: HEPARIN SODIUM, PORCINE 5000 UNITS/1 ML VIAL SQ SCH ×2 (09:34→21:07)
[2018-08-29] MEDS: INSULIN GLARGINE, 100 UNIT/ML CARTRIDGE SQ SCH ×2 (09:35→21:20)
[2018-08-29] MEDS: NEPRO 1,000 ML BOTTLE GT PRN (16:07)
[2018-08-29 18:18] VITALS: BP 129/65
[2018-08-29 20:15] VITALS: BP 116/54
[2018-08-30 00:12] VITALS: BP 114/60
[2018-08-30] MEDS: ALBUTEROL FS 2.5 MG/3 ML VIAL.NEB NEB SCH ×4 (01:29→19:30)
[2018-08-30] MEDS: IPRATROPIUM NEB FS 0.5 MG/2.5 ML AMPUL.NEB NEB SCH ×4 (01:29→19:30)
[2018-08-30] MEDS: MAG HYDROX/AL HYDROX/SIMETH 30 ML UDC TP SCH ×4 (05:47→23:00)
[2018-08-30] MEDS: ESOMEPRAZOLE MAG TRIHYDRATE 20 MG CAPSULE.DR GT SCH (05:47)
[2018-08-30] MEDS: PROSOURCE / PROSTAT (PYXIS) 30 ML UDC GT SCH ×5 (05:47→20:45)
[2018-08-30] MEDS: BLOOD SUGAR DIAGNOSTIC 1 EACH STRIP IN SCH ×3 (06:07→17:56)
[2018-08-30] MEDS: INSULIN REGULAR, HUMAN 100 UNIT/ML 3 ML VIAL SQ PRN ×3 (06:08→17:58)
[2018-08-30 06:20] VITALS: BP 122/66
[2018-08-30 07:47] VITALS: BP 105/52
[2018-08-30] MEDS: POLYVINYL ALCOHOL 15 ML BOTTLE EACHEYE SCH ×2 (09:00→20:44)
[2018-08-30] MEDS: SEVELAMER CARBONATE 0.8 GM POWD.PACK GT SCH ×2 (09:00→17:39)
[2018-08-30] MEDS: ASCORBIC ACID 500 MG TABLET GT SCH (09:00)
[2018-08-30] MEDS: hydrALAZINE HCL 25 MG TABLET GT SCH (09:00)
[2018-08-30] MEDS: HEPARIN SODIUM, PORCINE 5000 UNITS/1 ML VIAL SQ SCH ×2 (09:00→20:47)
[2018-08-30] MEDS: Z GUARD REMEDY 4 OZ OINT TP SCH ×2 (09:00→20:49)
[2018-08-30] MEDS: METOCLOPRAMIDE HCL 10 MG/10 ML UDC GT SCH ×2 (09:00→20:45)
[2018-08-30] MEDS: HYDROGEN PEROXIDE 480 ML BOTTLE TP SCH ×2 (09:00→20:49)
[2018-08-30] MEDS: NYSTATIN TOP POWDER 15 GM BOTTLE TP SCH ×6 (09:00→20:49)
[2018-08-30] MEDS: ACIDOPHILUS/BULGARICUS 1 EACH TAB.CHEW GT SCH ×2 (09:00→17:39)
[2018-08-30] MEDS: ACETAMINOPHEN 650 MG/20 ML UDC- SA PATIENTS-PAIN ONLY GT SCH ×2 (09:00→20:46)
[2018-08-30] MEDS: HYDROGEL DRESSING 90 GM TUBE TP SCH ×2 (09:00→20:49)
[2018-08-30] MEDS: METOPROLOL TARTRATE 50 MG TABLET GT SCH ×2 (09:00→21:29)
[2018-08-30] MEDS: INSULIN GLARGINE, 100 UNIT/ML CARTRIDGE SQ SCH ×2 (09:00→21:31)
[2018-08-30] MEDS: VIT B CMPLX 3/FA/VIT C/BIOTIN 1 TAB TABLET GT SCH (09:00)
[2018-08-30] MEDS: POVIDONE-IODINE OINT 28.4 GM TUBE TP SCH ×2 (09:00→20:48)
[2018-08-30 14:24] VITALS: BP 119/50
[2018-08-30 18:02] VITALS: BP 121/60
[2018-08-30 20:16] VITALS: BP 135/71
[2018-08-31] MEDS: NEPRO 1,000 ML BOTTLE GT PRN (00:39)
[2018-08-31] MEDS: BLOOD SUGAR DIAGNOSTIC 1 EACH STRIP IN SCH ×4 (00:50→18:24)
[2018-08-31] MEDS: INSULIN REGULAR, HUMAN 100 UNIT/ML 3 ML VIAL SQ PRN ×3 (00:51→18:28)
[2018-08-31] MEDS: IPRATROPIUM NEB FS 0.5 MG/2.5 ML AMPUL.NEB NEB SCH ×4 (01:00→19:35)
[2018-08-31] MEDS: ALBUTEROL FS 2.5 MG/3 ML VIAL.NEB NEB SCH ×4 (01:00→19:35)
[2018-08-31 01:09] VITALS: BP 142/73
[2018-08-31] MEDS: PROSOURCE / PROSTAT (PYXIS) 30 ML UDC GT SCH ×5 (05:03→20:17)
[2018-08-31] MEDS: ESOMEPRAZOLE MAG TRIHYDRATE 20 MG CAPSULE.DR GT SCH (05:03)
[2018-08-31] MEDS: MAG HYDROX/AL HYDROX/SIMETH 30 ML UDC TP SCH ×4 (05:03→23:00)
[2018-08-31 06:12] VITALS: BP 156/69
[2018-08-31 07:36] VITALS: BP 146/66
[2018-08-31] MEDS: ACETAMINOPHEN 650 MG/20 ML UDC- SA PATIENTS-PAIN ONLY GT SCH ×2 (09:00→20:18)
[2018-08-31] MEDS: POLYVINYL ALCOHOL 15 ML BOTTLE EACHEYE SCH ×2 (09:16→21:14)
[2018-08-31] MEDS: SEVELAMER CARBONATE 0.8 GM POWD.PACK GT SCH ×2 (09:16→17:00)
[2018-08-31] MEDS: METOCLOPRAMIDE HCL 10 MG/10 ML UDC GT SCH ×2 (09:16→20:17)
[2018-08-31] MEDS: VIT B CMPLX 3/FA/VIT C/BIOTIN 1 TAB TABLET GT SCH (09:16)
[2018-08-31] MEDS: ASCORBIC ACID 500 MG TABLET GT SCH (09:16)
[2018-08-31] MEDS: ACIDOPHILUS/BULGARICUS 1 EACH TAB.CHEW GT SCH ×2 (09:16→17:00)
[2018-08-31] MEDS: HEPARIN SODIUM, PORCINE 5000 UNITS/1 ML VIAL SQ SCH ×2 (09:18→20:19)
[2018-08-31] MEDS: INSULIN GLARGINE, 100 UNIT/ML CARTRIDGE SQ SCH ×2 (09:22→21:33)
[2018-08-31] MEDS: HYDROGEN PEROXIDE 480 ML BOTTLE TP SCH ×2 (17:00→20:19)
[2018-08-31] MEDS: NYSTATIN TOP POWDER 15 GM BOTTLE TP SCH ×6 (17:00→20:19)
[2018-08-31] MEDS: Z GUARD REMEDY 4 OZ OINT TP SCH ×2 (17:00→20:20)
[2018-08-31] MEDS: POVIDONE-IODINE OINT 28.4 GM TUBE TP SCH ×2 (17:00→20:19)
[2018-08-31] MEDS: HYDROGEL DRESSING 90 GM TUBE TP SCH ×2 (17:00→20:19)
[2018-08-31 17:53] VITALS: BP 100/42
[2018-08-31 18:28] VITALS: BP 100/42
[2018-08-31 20:37] VITALS: BP 121/66
[2018-08-31] MEDS: METOPROLOL TARTRATE 50 MG TABLET GT SCH (21:32)
[2018-09-01 00:08] VITALS: BP 126/54
[2018-09-01] MEDS: BLOOD SUGAR DIAGNOSTIC 1 EACH STRIP IN SCH ×5 (00:10→23:26)
[2018-09-01] MEDS: INSULIN REGULAR, HUMAN 100 UNIT/ML 3 ML VIAL SQ PRN ×5 (00:11→23:27)
[2018-09-01] MEDS: IPRATROPIUM NEB FS 0.5 MG/2.5 ML AMPUL.NEB NEB SCH ×4 (02:21→20:05)
[2018-09-01] MEDS: ALBUTEROL FS 2.5 MG/3 ML VIAL.NEB NEB SCH ×4 (02:22→20:05)
[2018-09-01] MEDS: MAG HYDROX/AL HYDROX/SIMETH 30 ML UDC TP SCH ×4 (05:50→23:26)
[2018-09-01] MEDS: PROSOURCE / PROSTAT (PYXIS) 30 ML UDC GT SCH ×5 (05:50→21:55)
[2018-09-01] MEDS: ESOMEPRAZOLE MAG TRIHYDRATE 20 MG CAPSULE.DR GT SCH (05:50)
[2018-09-01 06:20] VITALS: BP 157/65
[2018-09-01 07:41] VITALS: BP 127/92
[2018-09-01] MEDS: POVIDONE-IODINE OINT 28.4 GM TUBE TP SCH ×2 (09:00→21:59)
[2018-09-01] MEDS: hydrALAZINE HCL 25 MG TABLET GT SCH (09:00)
[2018-09-01] MEDS: HYDROGEN PEROXIDE 480 ML BOTTLE TP SCH ×2 (09:00→22:00)
[2018-09-01] MEDS: METOPROLOL TARTRATE 50 MG TABLET GT SCH ×2 (09:00→22:26)
[2018-09-01] MEDS: Z GUARD REMEDY 4 OZ OINT TP SCH ×2 (09:30→22:00)
[2018-09-01] MEDS: HYDROGEL DRESSING 90 GM TUBE TP SCH ×2 (09:30→21:59)
[2018-09-01] MEDS: NYSTATIN TOP POWDER 15 GM BOTTLE TP SCH ×6 (09:30→22:00)
[2018-09-01] MEDS: ACIDOPHILUS/BULGARICUS 1 EACH TAB.CHEW GT SCH ×2 (09:44→16:32)
[2018-09-01] MEDS: SEVELAMER CARBONATE 0.8 GM POWD.PACK GT SCH ×2 (09:44→16:32)
[2018-09-01] MEDS: POLYVINYL ALCOHOL 15 ML BOTTLE EACHEYE SCH ×2 (09:44→21:55)
[2018-09-01] MEDS: METOCLOPRAMIDE HCL 10 MG/10 ML UDC GT SCH ×2 (09:44→21:56)
[2018-09-01] MEDS: VIT B CMPLX 3/FA/VIT C/BIOTIN 1 TAB TABLET GT SCH (09:44)
[2018-09-01] MEDS: ACETAMINOPHEN 650 MG/20 ML UDC- SA PATIENTS-PAIN ONLY GT SCH ×2 (09:45→21:57)
[2018-09-01] MEDS: ASCORBIC ACID 500 MG TABLET GT SCH (09:45)
[2018-09-01] MEDS: HEPARIN SODIUM, PORCINE 5000 UNITS/1 ML VIAL SQ SCH ×2 (09:45→21:58)
[2018-09-01] MEDS: INSULIN GLARGINE, 100 UNIT/ML CARTRIDGE SQ SCH ×2 (09:47→22:28)
[2018-09-01 12:00] VITALS: BP 110/60
[2018-09-01] MEDS: NEPRO 1,000 ML BOTTLE GT PRN (16:33)
[2018-09-01 18:00] VITALS: BP 116/59
[2018-09-01 19:55] VITALS: BP 101/78
[2018-09-02 00:20] VITALS: BP 96/45
[2018-09-02] MEDS: ALBUTEROL FS 2.5 MG/3 ML VIAL.NEB NEB SCH ×4 (01:34→19:59)
[2018-09-02] MEDS: IPRATROPIUM NEB FS 0.5 MG/2.5 ML AMPUL.NEB NEB SCH ×4 (01:34→19:59)
[2018-09-02] MEDS: PROSOURCE / PROSTAT (PYXIS) 30 ML UDC GT SCH ×5 (05:51→20:34)
[2018-09-02] MEDS: MAG HYDROX/AL HYDROX/SIMETH 30 ML UDC TP SCH ×4 (05:51→23:29)
[2018-09-02] MEDS: BLOOD SUGAR DIAGNOSTIC 1 EACH STRIP IN SCH ×4 (05:51→23:29)
[2018-09-02] MEDS: ESOMEPRAZOLE MAG TRIHYDRATE 20 MG CAPSULE.DR GT SCH (05:51)
[2018-09-02] MEDS: INSULIN REGULAR, HUMAN 100 UNIT/ML 3 ML VIAL SQ PRN ×3 (05:52→23:30)
[2018-09-02 06:18] VITALS: BP 147/58
[2018-09-02 07:48] VITALS: BP 120/71
[2018-09-02] MEDS: INSULIN GLARGINE, 100 UNIT/ML CARTRIDGE SQ SCH ×2 (09:00→21:19)
[2018-09-02] MEDS: ASCORBIC ACID 500 MG TABLET GT SCH (09:01)
[2018-09-02] MEDS: HEPARIN SODIUM, PORCINE 5000 UNITS/1 ML VIAL SQ SCH ×2 (09:01→20:35)
[2018-09-02] MEDS: SEVELAMER CARBONATE 0.8 GM POWD.PACK GT SCH ×2 (09:01→17:57)
[2018-09-02] MEDS: POLYVINYL ALCOHOL 15 ML BOTTLE EACHEYE SCH ×2 (09:01→20:34)
[2018-09-02] MEDS: VIT B CMPLX 3/FA/VIT C/BIOTIN 1 TAB TABLET GT SCH (09:01)
[2018-09-02] MEDS: ACETAMINOPHEN 650 MG/20 ML UDC- SA PATIENTS-PAIN ONLY GT SCH ×2 (09:01→20:34)
[2018-09-02] MEDS: METOCLOPRAMIDE HCL 10 MG/10 ML UDC GT SCH ×2 (09:01→20:34)
[2018-09-02] MEDS: ACIDOPHILUS/BULGARICUS 1 EACH TAB.CHEW GT SCH ×2 (09:01→17:57)
[2018-09-02] MEDS: POVIDONE-IODINE OINT 28.4 GM TUBE TP SCH ×2 (09:30→20:35)
[2018-09-02] MEDS: Z GUARD REMEDY 4 OZ OINT TP SCH ×2 (09:30→20:35)
[2018-09-02] MEDS: NYSTATIN TOP POWDER 15 GM BOTTLE TP SCH ×6 (09:30→20:35)
[2018-09-02] MEDS: HYDROGEL DRESSING 90 GM TUBE TP SCH ×2 (09:30→20:35)
[2018-09-02] MEDS: HYDROGEN PEROXIDE 480 ML BOTTLE TP SCH ×2 (09:30→20:35)
[2018-09-02 15:00] VITALS: BP 149/67
[2018-09-02 18:00] VITALS: BP 135/57
--- NOTE | 2018-09-02 18:41 | NUR ---
Seen by THOMAS Leija. Informed her that pt has a temp of 100.4 F. She said to give cooling measures for now and see if pt will still have a fever. If pt has a fever, she said to refer to THOMAS Ramsay. She said she does not want to order antibiotics inappropriately at this time. Addendum: 09/02/18 at 1844 by GEORGE CLEARY RN THOMAS Leija aware of pt's redness on the right side of abdominal area. She said it might be fluids. She also said that sometimes temperature increases after hemodialysis. Addendum: 09/02/18 at 1845 by GEORGE CLEARY RN Redness and swelling on the right side of abdominal area
[2018-09-02 20:33] VITALS: BP 96/65
[2018-09-02] MEDS: METOPROLOL TARTRATE 50 MG TABLET GT SCH (21:18)
[2018-09-03] VITALS (7 sets, daily range): BP systolic 102–158; BP diastolic 55–94
[2018-09-03] MEDS: ALBUTEROL FS 2.5 MG/3 ML VIAL.NEB NEB SCH ×4 (01:31→19:29)
[2018-09-03] MEDS: IPRATROPIUM NEB FS 0.5 MG/2.5 ML AMPUL.NEB NEB SCH ×4 (01:31→19:29)
[2018-09-03] MEDS: MAG HYDROX/AL HYDROX/SIMETH 30 ML UDC TP SCH ×4 (05:00→23:40)
[2018-09-03] MEDS: PROSOURCE / PROSTAT (PYXIS) 30 ML UDC GT SCH ×5 (05:00→21:57)
[2018-09-03] MEDS: NEPRO 1,000 ML BOTTLE GT PRN (06:03)
[2018-09-03] MEDS: ESOMEPRAZOLE MAG TRIHYDRATE 20 MG CAPSULE.DR GT SCH (06:03)
[2018-09-03] MEDS: BLOOD SUGAR DIAGNOSTIC 1 EACH STRIP IN SCH ×4 (06:03→23:40)
[2018-09-03] MEDS: INSULIN REGULAR, HUMAN 100 UNIT/ML 3 ML VIAL SQ PRN ×4 (06:03→23:41)
[2018-09-03] MEDS: ASCORBIC ACID 500 MG TABLET GT SCH (09:00)
[2018-09-03] MEDS: hydrALAZINE HCL 25 MG TABLET GT SCH (09:00)
[2018-09-03] MEDS: METOPROLOL TARTRATE 50 MG TABLET GT SCH ×2 (09:00→22:20)
[2018-09-03] MEDS: ACIDOPHILUS/BULGARICUS 1 EACH TAB.CHEW GT SCH ×2 (09:00→17:57)
[2018-09-03] MEDS: INSULIN GLARGINE, 100 UNIT/ML CARTRIDGE SQ SCH ×2 (09:00→22:00)
[2018-09-03] MEDS: METOCLOPRAMIDE HCL 10 MG/10 ML UDC GT SCH ×2 (09:00→21:57)
[2018-09-03] MEDS: VIT B CMPLX 3/FA/VIT C/BIOTIN 1 TAB TABLET GT SCH (09:00)
[2018-09-03] MEDS: SEVELAMER CARBONATE 0.8 GM POWD.PACK GT SCH ×2 (09:00→17:57)
[2018-09-03] MEDS: HEPARIN SODIUM, PORCINE 5000 UNITS/1 ML VIAL SQ SCH ×2 (09:00→21:59)
[2018-09-03] MEDS: POLYVINYL ALCOHOL 15 ML BOTTLE EACHEYE SCH ×2 (09:00→21:57)
[2018-09-03] MEDS: ACETAMINOPHEN 650 MG/20 ML UDC- SA PATIENTS-PAIN ONLY GT SCH ×2 (10:20→21:58)
[2018-09-03] MEDS: LACTULOSE 10 G/15 ML UDC (PYXIS) GT PRN (10:40)
[2018-09-03] MEDS: HYDROGEL DRESSING 90 GM TUBE TP SCH ×2 (10:50→22:00)
[2018-09-03] MEDS: Z GUARD REMEDY 4 OZ OINT TP SCH ×2 (10:50→22:00)
[2018-09-03] MEDS: NYSTATIN TOP POWDER 15 GM BOTTLE TP SCH ×6 (10:50→22:00)
[2018-09-03] MEDS: HYDROGEN PEROXIDE 480 ML BOTTLE TP SCH ×2 (10:50→22:00)
[2018-09-03] MEDS: POVIDONE-IODINE OINT 28.4 GM TUBE TP SCH ×2 (10:50→22:00)
--- NOTE | 2018-09-03 17:50 | NUR ---
Resident's GT noted protruding, site red and warm to touch. Removed GT and reinserted. Checked placed by 2 licensed nurses. V/S 155/55, HR 110, T 100.7. Patient has been running low grade T since yesterday. Will notify THOMAS Ramsay, Infectious disease for orders.
[2018-09-03] MEDS: HYDROCODONE/APAP 5/325MG 1 EACH TABLET GT PRN (17:58)
--- NOTE | 2018-09-03 18:00 | NUR ---
Left a message to THOMAS aRmsay regarding redness of the GT site with low grade fever 100.7. Awaiting for call back.
[2018-09-03] MEDS ORDERED: DIATR MEGLU/DIATRIZOATE SODIUM 30 ML BOTTLE (GASTROGRAPHIN) ONE (18:35)
--- NOTE | 2018-09-03 18:40 | NUR ---
Paged assembler convertible top for Dr. Enrique Castro. Spoke with Dr. Ojeda and reported observations regarding patient GT site and current V/S including low grade temperature since yesterday. New order given to do KUB, CBC, BMP, Magnesium and Phos. Order noted and carried out.
[2018-09-03 19:11] LABS: CALCIUM, SERUM 9.4 mg/dL (8.5-10.1); MAGNESIUM 2.3 mg/dL (1.8-2.4); PHOSPHORUS 2.6 mg/dL (2.5-4.9); POTASSIUM 3.8 mmol/L (3.5-5.1)
--- NOTE | 2018-09-03 19:30 | NUR ---
THOMAS Ramsay, came and assessed GT site. Informed her that Dr. Guzmán ordered labs and KUB. New order given to start patient on IV ATB, CT of the abdomen and pelvis with contrast to r/o abscess. BC x2 and GI consult. Endorsed to carryout orders. Spoke with John Woodall, patient's responsible constitution party and obtain consent for CT scan, witnessed by 2 licensed nurses. Spoke with Brooke from admitting department confirming that there is no need to create a new account to do CT scan. Radiology department c/o Dick informed.
[2018-09-03 20:30] LABS: BASOPHILS % (AUTO) 0.3 % (0.0-2.0); EOSINOPHILS % (AUTO) 0.8 % (0.0-6.0); HEMATOCRIT 32 % (33-45); HEMOGLOBIN 9.9 g/dL (11.5-14.8); LYMPHOCYTES # (AUTO) 0.7 /CMM (0.8-4.8); LYMPHOCYTES % (AUTO) 6.7 % (20.0-44.0); MEAN CORPUSCULAR HGB CONC 31 g/dl (31.0-36.0); MEAN CORPUSCULAR VOLUME 89 fL (82-100); MONOCYTES # (AUTO) 0.7 /CMM (0.1-1.30); MONOCYTES % (AUTO) 6.7 % (2.0-12.0); NEUTROPHILS # (AUTO) 9.5 /CMM (1.8-8.9); NEUTROPHILS % (AUTO) 85.5 % (43.0-81.0); PLATELET COUNT (AUTO) 161 /CMM (150-450); RED BLOOD CELL COUNT(AUTO) 3.58 MIL/uL (4.0-5.2); WHITE BLOOD COUNT (AUTO) 11.1 K/uL (4.3-11.0)
[2018-09-03] MEDS ORDERED: MEROPENEM 500 MG in IV NS 0.9% 50 ML IV SCH (21:00)
--- NOTE | 2018-09-03 21:30 | NUR ---
Spoke to IV pharmacist Marvel,she said Merrem is not covered.Vancomycin 500mg IV every after dialysis e,Linda,Thu x 14 days for GT cellulitis.
[2018-09-04 00:20] VITALS: BP 128/58
[2018-09-04] MEDS: ALBUTEROL FS 2.5 MG/3 ML VIAL.NEB NEB SCH ×4 (01:17→19:39)
[2018-09-04] MEDS: IPRATROPIUM NEB FS 0.5 MG/2.5 ML AMPUL.NEB NEB SCH ×4 (01:17→19:39)
[2018-09-04] MEDS: BLOOD SUGAR DIAGNOSTIC 1 EACH STRIP IN SCH ×3 (05:48→18:08)
[2018-09-04] MEDS: ESOMEPRAZOLE MAG TRIHYDRATE 20 MG CAPSULE.DR GT SCH (05:48)
[2018-09-04] MEDS: PROSOURCE / PROSTAT (PYXIS) 30 ML UDC GT SCH ×5 (05:48→21:00)
[2018-09-04] MEDS: MAG HYDROX/AL HYDROX/SIMETH 30 ML UDC TP SCH ×4 (05:48→22:44)
[2018-09-04] MEDS: INSULIN REGULAR, HUMAN 100 UNIT/ML 3 ML VIAL SQ PRN ×3 (05:50→18:08)
[2018-09-04 06:25] VITALS: BP 117/43
--- NOTE | 2018-09-04 06:26 | NUR ---
Patient remains stable.GT feeding tolerated well,slight redness on the site with minimal leakage.For CT scan abdomen pelvis with contrast today.
[2018-09-04] MEDS ORDERED: IOHEXOL-300 100 ML VIAL IV ONE (07:51)
[2018-09-04] MEDS ORDERED: CT SWABBABLE VALVE TRANS SET 1 EA INFUS.SET MC ONE (07:52)
[2018-09-04] MEDS ORDERED: IV NS 0.9% 250 ML IV ONE (07:52)
[2018-09-04 07:55] VITALS: BP 121/93
[2018-09-04] MEDS: HEPARIN SODIUM, PORCINE 5000 UNITS/1 ML VIAL SQ SCH ×2 (09:47→21:00)
[2018-09-04] MEDS: VIT B CMPLX 3/FA/VIT C/BIOTIN 1 TAB TABLET GT SCH (09:48)
[2018-09-04] MEDS: SEVELAMER CARBONATE 0.8 GM POWD.PACK GT SCH ×2 (09:48→17:00)
[2018-09-04] MEDS: ASCORBIC ACID 500 MG TABLET GT SCH (09:48)
[2018-09-04] MEDS: ACETAMINOPHEN 650 MG/20 ML UDC- SA PATIENTS-PAIN ONLY GT SCH ×2 (09:48→21:00)
[2018-09-04] MEDS: ACIDOPHILUS/BULGARICUS 1 EACH TAB.CHEW GT SCH ×2 (09:48→17:00)
[2018-09-04] MEDS: INSULIN GLARGINE, 100 UNIT/ML CARTRIDGE SQ SCH ×2 (09:48→22:43)
[2018-09-04] MEDS: POLYVINYL ALCOHOL 15 ML BOTTLE EACHEYE SCH ×2 (09:48→21:00)
[2018-09-04] MEDS: METOCLOPRAMIDE HCL 10 MG/10 ML UDC GT SCH ×2 (09:48→21:00)
[2018-09-04] MEDS: POVIDONE-IODINE OINT 28.4 GM TUBE TP SCH ×2 (10:20→21:00)
[2018-09-04] MEDS: NYSTATIN TOP POWDER 15 GM BOTTLE TP SCH ×6 (10:20→21:00)
[2018-09-04] MEDS: HYDROGEN PEROXIDE 480 ML BOTTLE TP SCH ×2 (10:20→21:00)
[2018-09-04] MEDS: HYDROGEL DRESSING 90 GM TUBE TP SCH ×2 (10:20→21:00)
[2018-09-04] MEDS: Z GUARD REMEDY 4 OZ OINT TP SCH ×2 (10:20→21:00)
--- NOTE | 2018-09-04 10:40 | NUR ---
Resident left for dialysis, condition stable. Report given to ambulance staff that patient had CT scan done with contrast.. Communicated same information to the dialysis center and current condition of patient. CT scan result pending. Patient currently on IV ATB Vancomycin and Merrem no adverse reaction.
[2018-09-04 15:00] VITALS: BP 111/69
[2018-09-04] MEDS: MEROPENEM 500 MG in IV NS 0.9% 50 ML IV SCH (15:15)
[2018-09-04] MEDS: VANCOMYCIN 500 MG in IV D5W 100ml IV SCH (16:00)
[2018-09-04 18:00] VITALS: BP 110/51
[2018-09-04] MEDS: NEPRO 1,000 ML BOTTLE GT PRN (18:08)
[2018-09-04 20:27] VITALS: BP 116/52
--- NOTE | 2018-09-04 21:07 | NUR ---
SUBACUTE/RN NOTES INFECTIOUS DISEASE KIYA HERNANDEZ WAS INFORMED REGARDING RESULT OF ORDERED CT SCAN OF ABDOMEN/PELVIS, ORDER FOR GI CONSULT AND GI CONSULT MOTOR ASSEMBLER BARB WAS INFORMED AND TO CONTINUE PRESENT ANTIBIOTICS FOR 2 MORE WEEKS. ORDER CARRIED OUT.
[2018-09-04] MEDS: METOPROLOL TARTRATE 50 MG TABLET GT SCH (22:43)
[2018-09-05] VITALS: BP 118/73
[2018-09-05] MEDS: INSULIN REGULAR, HUMAN 100 UNIT/ML 3 ML VIAL SQ PRN ×5 (00:01→23:50)
[2018-09-05] MEDS: CLONIDINE HCL 0.2 MG TABLET GT PRN (00:10)
[2018-09-05] MEDS: IPRATROPIUM NEB FS 0.5 MG/2.5 ML AMPUL.NEB NEB SCH ×4 (01:31→19:43)
[2018-09-05] MEDS: ALBUTEROL FS 2.5 MG/3 ML VIAL.NEB NEB SCH ×4 (01:31→19:43)
[2018-09-05] MEDS: MEROPENEM 500 MG in IV NS 0.9% 50 ML IV SCH ×2 (02:51→15:41)
[2018-09-05] MEDS: PROSOURCE / PROSTAT (PYXIS) 30 ML UDC GT SCH ×5 (05:00→21:30)
[2018-09-05] MEDS: MAG HYDROX/AL HYDROX/SIMETH 30 ML UDC TP SCH ×4 (05:00→23:49)
[2018-09-05 06:00] VITALS: BP 124/57
[2018-09-05] MEDS: ESOMEPRAZOLE MAG TRIHYDRATE 20 MG CAPSULE.DR GT SCH (06:28)
[2018-09-05] MEDS: BLOOD SUGAR DIAGNOSTIC 1 EACH STRIP IN SCH ×5 (06:29→23:49)
[2018-09-05 07:54] VITALS: BP 149/56
[2018-09-05] MEDS: HEPARIN SODIUM, PORCINE 5000 UNITS/1 ML VIAL SQ SCH ×2 (09:00→21:31)
[2018-09-05] MEDS: METOCLOPRAMIDE HCL 10 MG/10 ML UDC GT SCH ×2 (09:00→21:30)
[2018-09-05] MEDS: Z GUARD REMEDY 4 OZ OINT TP SCH ×2 (09:00→21:32)
[2018-09-05] MEDS: POLYVINYL ALCOHOL 15 ML BOTTLE EACHEYE SCH ×2 (09:00→21:30)
[2018-09-05] MEDS: ACIDOPHILUS/BULGARICUS 1 EACH TAB.CHEW GT SCH ×2 (09:00→17:54)
[2018-09-05] MEDS: ASCORBIC ACID 500 MG TABLET GT SCH (09:00)
[2018-09-05] MEDS: HYDROGEL DRESSING 90 GM TUBE TP SCH ×2 (09:00→21:31)
[2018-09-05] MEDS: NYSTATIN TOP POWDER 15 GM BOTTLE TP SCH ×6 (09:00→21:32)
[2018-09-05] MEDS: ACETAMINOPHEN 650 MG/20 ML UDC- SA PATIENTS-PAIN ONLY GT SCH ×2 (09:00→21:31)
[2018-09-05] MEDS: METOPROLOL TARTRATE 50 MG TABLET GT SCH ×2 (09:00→21:32)
[2018-09-05] MEDS: VIT B CMPLX 3/FA/VIT C/BIOTIN 1 TAB TABLET GT SCH (09:00)
[2018-09-05] MEDS: INSULIN GLARGINE, 100 UNIT/ML CARTRIDGE SQ SCH ×2 (09:00→21:33)
[2018-09-05] MEDS ORDERED: HYDROGEL DRESSING 90 GM TUBE TP SCH (09:00)
[2018-09-05] MEDS: SEVELAMER CARBONATE 0.8 GM POWD.PACK GT SCH ×2 (09:00→17:54)
[2018-09-05] MEDS: HYDROGEN PEROXIDE 480 ML BOTTLE TP SCH ×2 (09:00→21:32)
[2018-09-05] MEDS: POVIDONE-IODINE OINT 28.4 GM TUBE TP SCH ×2 (09:00→21:31)
[2018-09-05] MEDS: hydrALAZINE HCL 25 MG TABLET GT SCH (09:00)
[2018-09-05 17:26] VITALS: BP 129/57
[2018-09-05 18:21] VITALS: BP 127/45
[2018-09-05] MEDS: NEPRO 1,000 ML BOTTLE GT PRN (18:34)
--- NOTE | 2018-09-05 20:19 | NUR ---
RT NOTE PATIENT REC'D ON [facility] VENT ON THE NOTED SETTINGS. NO RESP DISTRESS NOTED AT THIS TIME. PT SX'D. HHN TX GIVEN, NO ADVERSE REACTIONS NOTED. AMBU BAG AND SPARE TRACH ARE AT BEDSIDE. VENT IS PLUGGED INTO RED OUTLET. ALARMS ARE ON AND AUDIBLE. WILL CONT TO MONITOR. Addendum: 09/05/18 at 2020 by LONA PAGAN RT Amended: Links added.
[2018-09-05 21:17] VITALS: BP 131/52
[2018-09-06 00:10] VITALS: BP 128/55
[2018-09-06] MEDS: IPRATROPIUM NEB FS 0.5 MG/2.5 ML AMPUL.NEB NEB SCH ×4 (01:37→19:47)
[2018-09-06] MEDS: ALBUTEROL FS 2.5 MG/3 ML VIAL.NEB NEB SCH ×4 (01:37→19:47)
[2018-09-06] MEDS: MEROPENEM 500 MG in IV NS 0.9% 50 ML IV SCH ×2 (03:00→15:00)
[2018-09-06] MEDS: MAG HYDROX/AL HYDROX/SIMETH 30 ML UDC TP SCH ×4 (05:55→23:00)
[2018-09-06] MEDS: PROSOURCE / PROSTAT (PYXIS) 30 ML UDC GT SCH ×5 (05:55→21:16)
[2018-09-06] MEDS: ESOMEPRAZOLE MAG TRIHYDRATE 20 MG CAPSULE.DR GT SCH (05:55)
[2018-09-06] MEDS: BLOOD SUGAR DIAGNOSTIC 1 EACH STRIP IN SCH ×3 (05:55→17:49)
[2018-09-06] MEDS: INSULIN REGULAR, HUMAN 100 UNIT/ML 3 ML VIAL SQ PRN ×3 (05:57→17:50)
[2018-09-06 06:09] VITALS: BP 120/58
[2018-09-06 08:46] VITALS: BP 162/65
[2018-09-06] MEDS: HYDROGEN PEROXIDE 480 ML BOTTLE TP SCH ×2 (09:00→21:18)
[2018-09-06] MEDS: METOPROLOL TARTRATE 50 MG TABLET GT SCH ×2 (09:00→21:19)
[2018-09-06] MEDS: hydrALAZINE HCL 25 MG TABLET GT SCH (09:00)
[2018-09-06] MEDS: ACETAMINOPHEN 650 MG/20 ML UDC- SA PATIENTS-PAIN ONLY GT SCH ×2 (09:00→21:17)
[2018-09-06] MEDS: POVIDONE-IODINE OINT 28.4 GM TUBE TP SCH ×2 (09:00→21:18)
[2018-09-06] MEDS: INSULIN GLARGINE, 100 UNIT/ML CARTRIDGE SQ SCH ×2 (09:00→21:20)
[2018-09-06] MEDS: ACIDOPHILUS/BULGARICUS 1 EACH TAB.CHEW GT SCH ×2 (09:00→17:00)
[2018-09-06] MEDS: METOCLOPRAMIDE HCL 10 MG/10 ML UDC GT SCH ×2 (09:00→21:16)
[2018-09-06] MEDS: SEVELAMER CARBONATE 0.8 GM POWD.PACK GT SCH ×2 (09:00→17:00)
[2018-09-06] MEDS: Z GUARD REMEDY 4 OZ OINT TP SCH ×2 (09:00→21:19)
[2018-09-06] MEDS: NYSTATIN TOP POWDER 15 GM BOTTLE TP SCH ×6 (09:00→21:19)
[2018-09-06] MEDS: HEPARIN SODIUM, PORCINE 5000 UNITS/1 ML VIAL SQ SCH ×2 (09:00→21:18)
[2018-09-06] MEDS: HYDROGEL DRESSING 90 GM TUBE TP SCH ×2 (09:00→21:18)
[2018-09-06] MEDS: ASCORBIC ACID 500 MG TABLET GT SCH (09:00)
[2018-09-06] MEDS: POLYVINYL ALCOHOL 15 ML BOTTLE EACHEYE SCH ×2 (09:00→21:16)
[2018-09-06] MEDS: VIT B CMPLX 3/FA/VIT C/BIOTIN 1 TAB TABLET GT SCH (09:00)
[2018-09-06 12:31] VITALS: BP 132/67
--- NOTE | 2018-09-06 12:51 | NUR ---
Reminded Dr Batista to see pt for GI consult. Slight redness noted on G-tube site. Pt on Vancomycin and Merrem for abdominal cellulitis.
--- NOTE | 2018-09-06 16:00 | NUR ---
Seen by Dr Batista. He said to keep GT stopper snug to prevent leakage which can cause cellulitis. He said the GT site looks fine. He ordered to apply silver nitrate on GT site granulation tissue q 3 days.
[2018-09-06 18:41] VITALS: BP 142/52
--- NOTE | 2018-09-06 19:14 | NUR ---
Seen by THOMAS Ramsay. She said GT site looks a lot better and to continue Vancomycin and Merrem for 7 more days. Informed her that Dr Batista saw pt today.
[2018-09-06 20:06] VITALS: BP 154/80
--- NOTE | 2018-09-06 20:23 | NUR ---
RT NOTE PATIENT REC'D ON [facility] VENT ON THE NOTED SETTINGS. NO RESP DISTRESS NOTED AT THIS TIME. PT SX'D. HHN TX GIVEN, NO ADVERSE REACTIONS NOTED. AMBU BAG AND SPARE TRACH ARE AT BEDSIDE. VENT IS PLUGGED INTO RED OUTLET. ALARMS ARE ON AND AUDIBLE. WILL CONT TO MONITOR. Addendum: 09/06/18 at 2023 by LONA PAGAN RT Amended: Links added.
[2018-09-07] MEDS: BLOOD SUGAR DIAGNOSTIC 1 EACH STRIP IN SCH ×5 (00:03→23:45)
[2018-09-07] MEDS: INSULIN REGULAR, HUMAN 100 UNIT/ML 3 ML VIAL SQ PRN ×4 (00:04→23:46)
[2018-09-07 00:15] VITALS: BP 136/58
[2018-09-07] MEDS: ALBUTEROL FS 2.5 MG/3 ML VIAL.NEB NEB SCH ×4 (01:48→19:21)
[2018-09-07] MEDS: IPRATROPIUM NEB FS 0.5 MG/2.5 ML AMPUL.NEB NEB SCH ×4 (01:48→19:21)
[2018-09-07] MEDS: MEROPENEM 500 MG in IV NS 0.9% 50 ML IV SCH ×2 (02:51→15:00)
[2018-09-07] MEDS: PROSOURCE / PROSTAT (PYXIS) 30 ML UDC GT SCH ×5 (05:00→21:21)
[2018-09-07] MEDS: MAG HYDROX/AL HYDROX/SIMETH 30 ML UDC TP SCH ×4 (05:00→23:45)
[2018-09-07] MEDS: ESOMEPRAZOLE MAG TRIHYDRATE 20 MG CAPSULE.DR GT SCH (06:15)
[2018-09-07 06:24] VITALS: BP 132/55
[2018-09-07 07:23] VITALS: BP 155/81
[2018-09-07] MEDS: HYDROGEL DRESSING 90 GM TUBE TP SCH ×2 (09:00→21:22)
[2018-09-07] MEDS: Z GUARD REMEDY 4 OZ OINT TP SCH ×2 (09:00→21:22)
[2018-09-07] MEDS: NYSTATIN TOP POWDER 15 GM BOTTLE TP SCH ×6 (09:00→21:22)
[2018-09-07] MEDS: POVIDONE-IODINE OINT 28.4 GM TUBE TP SCH ×2 (09:00→21:22)
[2018-09-07] MEDS: HYDROGEN PEROXIDE 480 ML BOTTLE TP SCH ×2 (09:00→21:22)
[2018-09-07] MEDS: POLYVINYL ALCOHOL 15 ML BOTTLE EACHEYE SCH ×2 (09:16→21:21)
[2018-09-07] MEDS: METOCLOPRAMIDE HCL 10 MG/10 ML UDC GT SCH ×2 (09:16→21:21)
[2018-09-07] MEDS: SEVELAMER CARBONATE 0.8 GM POWD.PACK GT SCH ×2 (09:16→16:57)
[2018-09-07] MEDS: VIT B CMPLX 3/FA/VIT C/BIOTIN 1 TAB TABLET GT SCH (09:16)
[2018-09-07] MEDS: ACIDOPHILUS/BULGARICUS 1 EACH TAB.CHEW GT SCH ×2 (09:16→16:56)
[2018-09-07] MEDS: ASCORBIC ACID 500 MG TABLET GT SCH (09:17)
[2018-09-07] MEDS: ACETAMINOPHEN 650 MG/20 ML UDC- SA PATIENTS-PAIN ONLY GT SCH ×2 (09:17→21:21)
[2018-09-07] MEDS: HEPARIN SODIUM, PORCINE 5000 UNITS/1 ML VIAL SQ SCH ×2 (09:20→21:22)
[2018-09-07] MEDS: INSULIN GLARGINE, 100 UNIT/ML CARTRIDGE SQ SCH ×2 (09:21→21:23)
--- NOTE | 2018-09-07 11:48 | NUR ---
LUPILLO left message to patient's John in two different numbers ([phone] and [phone]) informing of this week (09/10) RIGOBERTOT dakota.
[2018-09-07] MEDS: VANCOMYCIN 500 MG in IV D5W 100ml IV SCH (16:00)
[2018-09-07] MEDS: SILVER NITRATE APPLICATOR 1 EA BOX TP SCH (16:00)
[2018-09-07 17:35] VITALS: BP 150/76
[2018-09-07 17:36] VITALS: BP 150/76
[2018-09-07 18:37] VITALS: BP 150/76
[2018-09-07] MEDS: METOPROLOL TARTRATE 50 MG TABLET GT SCH (21:23)
[2018-09-08 00:04] VITALS: BP 144/72
[2018-09-08] MEDS: IPRATROPIUM NEB FS 0.5 MG/2.5 ML AMPUL.NEB NEB SCH ×4 (00:56→19:41)
[2018-09-08] MEDS: ALBUTEROL FS 2.5 MG/3 ML VIAL.NEB NEB SCH ×4 (00:56→19:41)
[2018-09-08] MEDS: MEROPENEM 500 MG in IV NS 0.9% 50 ML IV SCH ×2 (03:06→15:00)
[2018-09-08] MEDS: BLOOD SUGAR DIAGNOSTIC 1 EACH STRIP IN SCH ×3 (05:53→17:32)
[2018-09-08] MEDS: MAG HYDROX/AL HYDROX/SIMETH 30 ML UDC TP SCH ×4 (05:53→22:52)
[2018-09-08] MEDS: PROSOURCE / PROSTAT (PYXIS) 30 ML UDC GT SCH ×5 (05:53→21:49)
[2018-09-08] MEDS: ESOMEPRAZOLE MAG TRIHYDRATE 20 MG CAPSULE.DR GT SCH (05:53)
[2018-09-08] MEDS: INSULIN REGULAR, HUMAN 100 UNIT/ML 3 ML VIAL SQ PRN ×3 (05:54→17:37)
[2018-09-08 06:11] VITALS: BP 133/69
[2018-09-08 07:26] VITALS: BP 132/67
[2018-09-08] MEDS: POLYVINYL ALCOHOL 15 ML BOTTLE EACHEYE SCH ×2 (08:21→21:49)
[2018-09-08] MEDS: hydrALAZINE HCL 25 MG TABLET GT SCH (08:22)
[2018-09-08] MEDS: SEVELAMER CARBONATE 0.8 GM POWD.PACK GT SCH ×2 (08:22→17:32)
[2018-09-08] MEDS: METOCLOPRAMIDE HCL 10 MG/10 ML UDC GT SCH ×2 (08:22→21:49)
[2018-09-08] MEDS: METOPROLOL TARTRATE 50 MG TABLET GT SCH ×2 (08:22→21:51)
[2018-09-08] MEDS: ACIDOPHILUS/BULGARICUS 1 EACH TAB.CHEW GT SCH ×2 (08:22→17:31)
[2018-09-08] MEDS: ACETAMINOPHEN 650 MG/20 ML UDC- SA PATIENTS-PAIN ONLY GT SCH ×2 (08:23→21:49)
[2018-09-08] MEDS: ASCORBIC ACID 500 MG TABLET GT SCH (08:23)
[2018-09-08] MEDS: INSULIN GLARGINE, 100 UNIT/ML CARTRIDGE SQ SCH ×2 (08:32→22:05)
[2018-09-08] MEDS: HEPARIN SODIUM, PORCINE 5000 UNITS/1 ML VIAL SQ SCH ×2 (08:33→21:50)
[2018-09-08] MEDS: VIT B CMPLX 3/FA/VIT C/BIOTIN 1 TAB TABLET GT SCH (08:34)
[2018-09-08] MEDS: NYSTATIN TOP POWDER 15 GM BOTTLE TP SCH ×6 (09:00→22:20)
[2018-09-08] MEDS: HYDROGEN PEROXIDE 480 ML BOTTLE TP SCH ×2 (09:00→22:20)
[2018-09-08] MEDS: Z GUARD REMEDY 4 OZ OINT TP SCH ×2 (09:00→22:20)
[2018-09-08] MEDS: POVIDONE-IODINE OINT 28.4 GM TUBE TP SCH ×2 (09:00→22:20)
[2018-09-08] MEDS: HYDROGEL DRESSING 90 GM TUBE TP SCH ×2 (09:00→22:20)
[2018-09-08 12:00] VITALS: BP 136/64
[2018-09-08] MEDS: NEPRO 1,000 ML BOTTLE GT PRN (15:31)
[2018-09-08 18:18] VITALS: BP 121/60
[2018-09-08 19:37] VITALS: BP 126/56
--- NOTE | 2018-09-08 20:28 | NUR ---
RT PATIENT REC'D ON [facility] VENT ON THE NOTED SETTINGS. NO RESP DISTRESS NOTED AT THIS TIME. PT SX'D. HHN TX GIVEN, NO ADVERSE REACTIONS NOTED. AMBU BAG AND SPARE TRACH ARE AT BEDSIDE. VENT IS PLUGGED INTO RED OUTLET. ALARMS ARE ON AND AUDIBLE. WILL CONT TO MONITOR. Addendum: 09/08/18 at 2027 by LONA PAGAN RT Amended: Links added.
[2018-09-09] MEDS: BLOOD SUGAR DIAGNOSTIC 1 EACH STRIP IN SCH ×5 (00:14→23:44)
[2018-09-09] MEDS: INSULIN REGULAR, HUMAN 100 UNIT/ML 3 ML VIAL SQ PRN ×3 (00:16→23:46)
[2018-09-09 01:03] VITALS: BP 107/74
[2018-09-09] MEDS: ALBUTEROL FS 2.5 MG/3 ML VIAL.NEB NEB SCH ×4 (01:38→19:21)
[2018-09-09] MEDS: IPRATROPIUM NEB FS 0.5 MG/2.5 ML AMPUL.NEB NEB SCH ×4 (01:38→19:21)
[2018-09-09] MEDS: MEROPENEM 500 MG in IV NS 0.9% 50 ML IV SCH ×2 (03:34→16:15)
[2018-09-09] MEDS: ESOMEPRAZOLE MAG TRIHYDRATE 20 MG CAPSULE.DR GT SCH (05:44)
[2018-09-09] MEDS: MAG HYDROX/AL HYDROX/SIMETH 30 ML UDC TP SCH ×4 (05:44→23:44)
[2018-09-09] MEDS: PROSOURCE / PROSTAT (PYXIS) 30 ML UDC GT SCH ×5 (05:44→21:11)
[2018-09-09 06:27] VITALS: BP 120/56
[2018-09-09 07:39] VITALS: BP 129/60
[2018-09-09] MEDS: HEPARIN SODIUM, PORCINE 5000 UNITS/1 ML VIAL SQ SCH ×2 (09:50→21:11)
[2018-09-09] MEDS: METOCLOPRAMIDE HCL 10 MG/10 ML UDC GT SCH ×2 (09:51→21:11)
[2018-09-09] MEDS: POLYVINYL ALCOHOL 15 ML BOTTLE EACHEYE SCH ×2 (09:51→21:11)
[2018-09-09] MEDS: ASCORBIC ACID 500 MG TABLET GT SCH (09:51)
[2018-09-09] MEDS: ACETAMINOPHEN 650 MG/20 ML UDC- SA PATIENTS-PAIN ONLY GT SCH ×2 (09:51→21:11)
[2018-09-09] MEDS: VIT B CMPLX 3/FA/VIT C/BIOTIN 1 TAB TABLET GT SCH (09:51)
[2018-09-09] MEDS: SEVELAMER CARBONATE 0.8 GM POWD.PACK GT SCH ×2 (09:51→17:00)
[2018-09-09] MEDS: INSULIN GLARGINE, 100 UNIT/ML CARTRIDGE SQ SCH ×2 (09:51→21:13)
[2018-09-09] MEDS: ACIDOPHILUS/BULGARICUS 1 EACH TAB.CHEW GT SCH ×2 (09:51→17:00)
[2018-09-09] MEDS: NYSTATIN TOP POWDER 15 GM BOTTLE TP SCH ×6 (10:30→21:12)
[2018-09-09] MEDS: Z GUARD REMEDY 4 OZ OINT TP SCH ×2 (10:30→21:12)
[2018-09-09] MEDS: HYDROGEN PEROXIDE 480 ML BOTTLE TP SCH ×2 (10:30→21:12)
[2018-09-09] MEDS: POVIDONE-IODINE OINT 28.4 GM TUBE TP SCH ×2 (10:30→21:11)
[2018-09-09] MEDS: HYDROGEL DRESSING 90 GM TUBE TP SCH ×2 (10:30→21:12)
[2018-09-09 15:15] VITALS: BP 113/74
[2018-09-09] MEDS: VANCOMYCIN 500 MG in IV D5W 100ml IV SCH (17:00)
--- NOTE | 2018-09-09 17:59 | NUR ---
Vancomycin random level faxed to [facility] pharmacy.
[2018-09-09 18:00] VITALS: BP 133/51
[2018-09-09 20:38] VITALS: BP 107/52
[2018-09-09] MEDS: METOPROLOL TARTRATE 50 MG TABLET GT SCH (21:12)
[2018-09-09] MEDS: CLONIDINE HCL 0.2 MG TABLET GT PRN (23:46)
[2018-09-10] VITALS (7 sets, daily range): BP systolic 96–146; BP diastolic 37–87
[2018-09-10] MEDS: HYDROCODONE/APAP 5/325MG 1 EACH TABLET GT PRN (00:30)
[2018-09-10] MEDS: IPRATROPIUM NEB FS 0.5 MG/2.5 ML AMPUL.NEB NEB SCH ×4 (00:59→20:18)
[2018-09-10] MEDS: ALBUTEROL FS 2.5 MG/3 ML VIAL.NEB NEB SCH ×4 (00:59→20:18)
[2018-09-10] MEDS: MEROPENEM 500 MG in IV NS 0.9% 50 ML IV SCH ×2 (02:57→16:15)
[2018-09-10] MEDS: PROSOURCE / PROSTAT (PYXIS) 30 ML UDC GT SCH ×5 (05:00→21:18)
[2018-09-10] MEDS: ESOMEPRAZOLE MAG TRIHYDRATE 20 MG CAPSULE.DR GT SCH (05:51)
[2018-09-10] MEDS: MAG HYDROX/AL HYDROX/SIMETH 30 ML UDC TP SCH ×4 (05:51→23:00)
[2018-09-10] MEDS: BLOOD SUGAR DIAGNOSTIC 1 EACH STRIP IN SCH ×3 (05:51→18:51)
[2018-09-10] MEDS: CLONIDINE HCL 0.2 MG TABLET GT PRN (05:52)
[2018-09-10] MEDS: NEPRO 1,000 ML BOTTLE GT PRN (05:53)
[2018-09-10] MEDS: INSULIN REGULAR, HUMAN 100 UNIT/ML 3 ML VIAL SQ PRN ×3 (05:53→18:51)
[2018-09-10] MEDS: HEPARIN SODIUM, PORCINE 5000 UNITS/1 ML VIAL SQ SCH ×2 (09:00→21:20)
[2018-09-10] MEDS: POLYVINYL ALCOHOL 15 ML BOTTLE EACHEYE SCH ×2 (09:00→21:18)
[2018-09-10] MEDS: ASCORBIC ACID 500 MG TABLET GT SCH (09:00)
[2018-09-10] MEDS: hydrALAZINE HCL 25 MG TABLET GT SCH (09:00)
[2018-09-10] MEDS: ACIDOPHILUS/BULGARICUS 1 EACH TAB.CHEW GT SCH ×2 (09:00→17:00)
[2018-09-10] MEDS: VIT B CMPLX 3/FA/VIT C/BIOTIN 1 TAB TABLET GT SCH (09:00)
[2018-09-10] MEDS: INSULIN GLARGINE, 100 UNIT/ML CARTRIDGE SQ SCH ×2 (09:00→21:21)
[2018-09-10] MEDS: METOPROLOL TARTRATE 50 MG TABLET GT SCH ×2 (09:00→22:00)
[2018-09-10] MEDS: METOCLOPRAMIDE HCL 10 MG/10 ML UDC GT SCH ×2 (09:00→21:18)
[2018-09-10] MEDS: SEVELAMER CARBONATE 0.8 GM POWD.PACK GT SCH ×2 (09:00→17:00)
[2018-09-10] MEDS: ACETAMINOPHEN 650 MG/20 ML UDC- SA PATIENTS-PAIN ONLY GT SCH ×2 (10:30→21:19)
[2018-09-10] MEDS: Z GUARD REMEDY 4 OZ OINT TP SCH ×2 (11:00→21:20)
[2018-09-10] MEDS: POVIDONE-IODINE OINT 28.4 GM TUBE TP SCH ×2 (11:00→21:20)
[2018-09-10] MEDS: HYDROGEN PEROXIDE 480 ML BOTTLE TP SCH ×2 (11:00→21:20)
[2018-09-10] MEDS: NYSTATIN TOP POWDER 15 GM BOTTLE TP SCH ×6 (11:00→21:20)
[2018-09-10] MEDS: HYDROGEL DRESSING 90 GM TUBE TP SCH ×2 (11:00→22:00)
[2018-09-10] MEDS ORDERED: IV NS 0.9% 500 ML IV ONE (15:00)
--- NOTE | 2018-09-10 15:10 | NUR ---
Spoke with Rosie IV pharmacist that Vancomycin dose will remain the same. Orders noted and carried out.
--- NOTE | 2018-09-10 17:00 | NUR ---
Spoke with Kimberly from [facility] informing that patient's R arm is more swollen than usual. Dialysis access in the R FA + for bruit and trill. She was made aware that patient received 500ml of NS bolus due to hypotension, and BP improved after bolus was given. She said that she will endorse it tomorrow. Patient goes to dialysis on [facility]. Endorsed to incoming shift.
--- NOTE | 2018-09-10 17:14 | NUR ---
INTERDISCIPLINARY TEAM CONFERENCE (IDT) was held today. Resident's boyfriend John was unable to attend today's IDT meeting. Dr. Morejon and the interdisciplinary team reviewed the current plan of care in detail. Orders as well as treatment and medications were reviewed. Resident had a CT scan done due to redness in the GT site. She is being treated with IV ATB Vancomycin and Merrem which will be completed on 09/13/18 for cellulitis of the GT site. Patient also was seen by Dr. Batista for GT granulation with treatment to apply silver nitrate. Dr. Morejon ordered 500ml bolus of NS and blood culture due T 102 and B/P 96/39, HR 100. HL in the R upper arm patent and intact. Rechecked BP after administration of bolus NS, VS as follows: BP 139/73, 100%, OR 100, T 98.5. Spoke with John and updated him of patient's condition including current and new order. Appreciated the call.
[2018-09-11] MEDS: BLOOD SUGAR DIAGNOSTIC 1 EACH STRIP IN SCH ×4 (00:22→18:20)
[2018-09-11] MEDS: INSULIN REGULAR, HUMAN 100 UNIT/ML 3 ML VIAL SQ PRN ×3 (00:23→18:21)
[2018-09-11 00:32] VITALS: BP 110/74
[2018-09-11] MEDS: ALBUTEROL FS 2.5 MG/3 ML VIAL.NEB NEB SCH ×4 (01:49→20:04)
[2018-09-11] MEDS: IPRATROPIUM NEB FS 0.5 MG/2.5 ML AMPUL.NEB NEB SCH ×4 (01:49→20:04)
[2018-09-11] MEDS: MEROPENEM 500 MG in IV NS 0.9% 50 ML IV SCH ×2 (03:09→15:30)
--- NOTE | 2018-09-11 03:19 | NUR ---
PT REC'D TRACHED ON [facility] VENT ON AC MODE. NO RESP DISTRESS OR SOB NOTED. TRACH IS PATENT AND SECURED. SX'D FOR MOD AMT OF PALE YELLOW SECRETIONS. ALARMS ARE SET AND AUDIBLE. VENT PLUGGED INTO RED OUTLET. AMBU BAG BEDSIDE. WILL CONTINUE TO MONITOR. Addendum: 09/11/18 at 0320 by LOUISA CRUZ RT Amended: Links added.
[2018-09-11] MEDS: PROSOURCE / PROSTAT (PYXIS) 30 ML UDC GT SCH ×5 (05:59→21:39)
[2018-09-11] MEDS: MAG HYDROX/AL HYDROX/SIMETH 30 ML UDC TP SCH ×4 (05:59→23:00)
[2018-09-11] MEDS: ESOMEPRAZOLE MAG TRIHYDRATE 20 MG CAPSULE.DR GT SCH (05:59)
[2018-09-11 06:20] VITALS: BP 131/55
[2018-09-11 07:36] VITALS: BP 117/88
--- NOTE | 2018-09-11 08:30 | NUR ---
RT PATIENT REC'D ON MECHANICAL VENTILATION WITH CHARTED AC SETTINGS. NO SOB NOTED AT THIS TIME. CUFF CHECKED VIA SCRAP PILER. VENT PLUGGED INTO RED OUTLET. ALARMS ON AND AUDIBLE. TX GIVEN, SX DONE, MODERATE THICK YELLOW/WHITE SECRETIONS NOTED. WILL CONTINUE TO MONITOR. Addendum: 09/11/18 at 0830 by LONA PAGAN RT Amended: Links added.
[2018-09-11] MEDS: HEPARIN SODIUM, PORCINE 5000 UNITS/1 ML VIAL SQ SCH ×2 (09:20→21:40)
[2018-09-11] MEDS: INSULIN GLARGINE, 100 UNIT/ML CARTRIDGE SQ SCH ×2 (09:26→21:42)
[2018-09-11] MEDS: METOCLOPRAMIDE HCL 10 MG/10 ML UDC GT SCH ×2 (09:26→21:39)
[2018-09-11] MEDS: SEVELAMER CARBONATE 0.8 GM POWD.PACK GT SCH ×2 (09:26→17:00)
[2018-09-11] MEDS: POLYVINYL ALCOHOL 15 ML BOTTLE EACHEYE SCH ×2 (09:26→21:39)
[2018-09-11] MEDS: ACIDOPHILUS/BULGARICUS 1 EACH TAB.CHEW GT SCH ×2 (09:26→17:00)
[2018-09-11] MEDS: VIT B CMPLX 3/FA/VIT C/BIOTIN 1 TAB TABLET GT SCH (09:26)
[2018-09-11] MEDS: ACETAMINOPHEN 650 MG/20 ML UDC- SA PATIENTS-PAIN ONLY GT SCH ×2 (09:27→21:39)
[2018-09-11] MEDS: ASCORBIC ACID 500 MG TABLET GT SCH (09:27)
[2018-09-11] MEDS: Z GUARD REMEDY 4 OZ OINT TP SCH ×2 (10:00→21:41)
[2018-09-11] MEDS: NYSTATIN TOP POWDER 15 GM BOTTLE TP SCH ×6 (10:00→21:41)
[2018-09-11] MEDS: HYDROGEL DRESSING 90 GM TUBE TP SCH ×2 (10:00→21:40)
[2018-09-11] MEDS: HYDROGEN PEROXIDE 480 ML BOTTLE TP SCH ×2 (10:00→21:41)
[2018-09-11] MEDS: TRIAMCINOLONE ACETONIDE 0.1% CR 15 GM TUBE TP SCH ×2 (10:00→21:40)
[2018-09-11] MEDS: NYSTATIN CREAM 15 GM TUBE TP SCH ×2 (10:00→21:41)
[2018-09-11] MEDS: POVIDONE-IODINE OINT 28.4 GM TUBE TP SCH ×2 (10:00→21:40)
[2018-09-11 15:15] VITALS: BP 95/40
[2018-09-11] MEDS: VANCOMYCIN 500 MG in IV D5W 100ml IV SCH (16:00)
[2018-09-11] MEDS: SILVER NITRATE APPLICATOR 1 EA BOX TP SCH (18:00)
[2018-09-11] MEDS: NEPRO 1,000 ML BOTTLE GT PRN (18:20)
[2018-09-11 18:40] VITALS: BP 141/70
[2018-09-11 19:39] VITALS: BP 108/40
[2018-09-11] MEDS: METOPROLOL TARTRATE 50 MG TABLET GT SCH (21:54)
[2018-09-12] MEDS: INSULIN REGULAR, HUMAN 100 UNIT/ML 3 ML VIAL SQ PRN ×5 (00:02→23:42)
[2018-09-12 00:20] VITALS: BP 103/54
[2018-09-12] MEDS: IPRATROPIUM NEB FS 0.5 MG/2.5 ML AMPUL.NEB NEB SCH ×4 (01:50→19:38)
[2018-09-12] MEDS: ALBUTEROL FS 2.5 MG/3 ML VIAL.NEB NEB SCH ×4 (01:50→19:39)
[2018-09-12] MEDS: MEROPENEM 500 MG in IV NS 0.9% 50 ML IV SCH ×2 (03:00→15:01)
[2018-09-12] MEDS: PROSOURCE / PROSTAT (PYXIS) 30 ML UDC GT SCH ×5 (05:51→21:23)
[2018-09-12] MEDS: BLOOD SUGAR DIAGNOSTIC 1 EACH STRIP IN SCH ×5 (05:52→23:41)
[2018-09-12] MEDS: ESOMEPRAZOLE MAG TRIHYDRATE 20 MG CAPSULE.DR GT SCH (05:52)
[2018-09-12] MEDS: MAG HYDROX/AL HYDROX/SIMETH 30 ML UDC TP SCH ×4 (05:52→23:41)
[2018-09-12 06:01] VITALS: BP 152/68
[2018-09-12 07:22] VITALS: BP 158/69
[2018-09-12] MEDS: ASCORBIC ACID 500 MG TABLET GT SCH (09:00)
[2018-09-12] MEDS: METOPROLOL TARTRATE 50 MG TABLET GT SCH ×2 (09:00→21:24)
[2018-09-12] MEDS: TRIAMCINOLONE ACETONIDE 0.1% CR 15 GM TUBE TP SCH ×2 (09:00→21:23)
[2018-09-12] MEDS: INSULIN GLARGINE, 100 UNIT/ML CARTRIDGE SQ SCH ×2 (09:00→21:27)
[2018-09-12] MEDS: SEVELAMER CARBONATE 0.8 GM POWD.PACK GT SCH ×2 (09:00→16:56)
[2018-09-12] MEDS: VIT B CMPLX 3/FA/VIT C/BIOTIN 1 TAB TABLET GT SCH (09:00)
[2018-09-12] MEDS: HYDROGEL DRESSING 90 GM TUBE TP SCH ×2 (09:00→21:23)
[2018-09-12] MEDS: METOCLOPRAMIDE HCL 10 MG/10 ML UDC GT SCH ×2 (09:00→21:23)
[2018-09-12] MEDS: HEPARIN SODIUM, PORCINE 5000 UNITS/1 ML VIAL SQ SCH ×2 (09:00→21:23)
[2018-09-12] MEDS: POLYVINYL ALCOHOL 15 ML BOTTLE EACHEYE SCH ×2 (09:00→21:23)
[2018-09-12] MEDS: ACIDOPHILUS/BULGARICUS 1 EACH TAB.CHEW GT SCH ×2 (09:00→16:56)
[2018-09-12] MEDS: ACETAMINOPHEN 650 MG/20 ML UDC- SA PATIENTS-PAIN ONLY GT SCH ×2 (09:00→21:23)
[2018-09-12] MEDS: NYSTATIN CREAM 15 GM TUBE TP SCH ×2 (09:00→21:24)
[2018-09-12] MEDS: HYDROGEN PEROXIDE 480 ML BOTTLE TP SCH ×2 (09:00→21:24)
[2018-09-12] MEDS: POVIDONE-IODINE OINT 28.4 GM TUBE TP SCH ×2 (09:00→21:23)
[2018-09-12] MEDS: hydrALAZINE HCL 25 MG TABLET GT SCH (09:00)
[2018-09-12] MEDS: Z GUARD REMEDY 4 OZ OINT TP SCH ×2 (09:00→21:24)
--- NOTE | 2018-09-12 11:35 | NUR ---
RT PATIENT REC'D ON MECHANICAL VENTILATION WITH CHARTED AC SETTINGS. NO SOB NOTED AT THIS TIME. CUFF CHECKED VIA SENIOR IT SECURITY ANALYST. VENT PLUGGED INTO RED OUTLET. ALARMS ON AND AUDIBLE. TX GIVEN, SX DONE, MODERATE THICK YELLOW/WHITE SECRETIONS NOTED. WILL CONTINUE TO MONITOR.
[2018-09-12 16:56] VITALS: BP 140/69
[2018-09-12 18:44] VITALS: BP 138/70
[2018-09-12] MEDS: SILVER NITRATE APPLICATOR 1 EA BOX TP SCH (19:30)
[2018-09-12 20:14] VITALS: BP 145/52
[2018-09-13] MEDS: IPRATROPIUM NEB FS 0.5 MG/2.5 ML AMPUL.NEB NEB SCH ×4 (01:23→19:59)
[2018-09-13] MEDS: ALBUTEROL FS 2.5 MG/3 ML VIAL.NEB NEB SCH ×4 (01:23→19:59)
[2018-09-13] MEDS: MEROPENEM 500 MG in IV NS 0.9% 50 ML IV SCH ×2 (03:00→16:00)
[2018-09-13 03:22] VITALS: BP 136/72
[2018-09-13] MEDS: PROSOURCE / PROSTAT (PYXIS) 30 ML UDC GT SCH ×5 (05:52→21:18)
[2018-09-13] MEDS: MAG HYDROX/AL HYDROX/SIMETH 30 ML UDC TP SCH ×4 (05:53→23:00)
[2018-09-13] MEDS: BLOOD SUGAR DIAGNOSTIC 1 EACH STRIP IN SCH ×3 (05:53→18:38)
[2018-09-13] MEDS: ESOMEPRAZOLE MAG TRIHYDRATE 20 MG CAPSULE.DR GT SCH (05:53)
[2018-09-13 06:19] VITALS: BP 140/76
[2018-09-13 07:33] VITALS: BP 130/44
[2018-09-13] MEDS: HEPARIN SODIUM, PORCINE 5000 UNITS/1 ML VIAL SQ SCH ×2 (09:00→21:19)
[2018-09-13] MEDS: ASCORBIC ACID 500 MG TABLET GT SCH (09:00)
[2018-09-13] MEDS: NYSTATIN CREAM 15 GM TUBE TP SCH ×2 (09:00→21:19)
[2018-09-13] MEDS: POLYVINYL ALCOHOL 15 ML BOTTLE EACHEYE SCH ×2 (09:00→21:18)
[2018-09-13] MEDS: Z GUARD REMEDY 4 OZ OINT TP SCH ×2 (09:00→21:20)
[2018-09-13] MEDS: METOCLOPRAMIDE HCL 10 MG/10 ML UDC GT SCH ×2 (09:00→21:18)
[2018-09-13] MEDS: METOPROLOL TARTRATE 50 MG TABLET GT SCH ×2 (09:00→21:20)
[2018-09-13] MEDS: HYDROGEN PEROXIDE 480 ML BOTTLE TP SCH ×2 (09:00→21:19)
[2018-09-13] MEDS: POVIDONE-IODINE OINT 28.4 GM TUBE TP SCH ×2 (09:00→21:19)
[2018-09-13] MEDS: ACIDOPHILUS/BULGARICUS 1 EACH TAB.CHEW GT SCH ×2 (09:00→17:24)
[2018-09-13] MEDS: VIT B CMPLX 3/FA/VIT C/BIOTIN 1 TAB TABLET GT SCH (09:00)
[2018-09-13] MEDS: SEVELAMER CARBONATE 0.8 GM POWD.PACK GT SCH ×2 (09:00→17:24)
[2018-09-13] MEDS: INSULIN GLARGINE, 100 UNIT/ML CARTRIDGE SQ SCH ×2 (09:00→21:21)
[2018-09-13] MEDS: hydrALAZINE HCL 25 MG TABLET GT SCH (09:00)
[2018-09-13] MEDS: HYDROGEL DRESSING 90 GM TUBE TP SCH ×2 (09:00→21:19)
[2018-09-13] MEDS: ACETAMINOPHEN 650 MG/20 ML UDC- SA PATIENTS-PAIN ONLY GT SCH ×2 (09:00→21:19)
[2018-09-13] MEDS: TRIAMCINOLONE ACETONIDE 0.1% CR 15 GM TUBE TP SCH ×2 (09:00→21:19)
--- NOTE | 2018-09-13 10:21 | NUR ---
Pt's G-tube stoma appears bigger and a small portion of the balloon can be seen through it. GT site red and hard to touch, pt getting antibiotics for GT site cellulitis. Informed Dr Batista and asked him to see pt again. He said yes.
--- NOTE | 2018-09-13 10:29 | NUR ---
Informed SOFTWARE DEVELOPER CONSULTANT Sobia that pt is completing Merrem and Vancomycin today, GT site red and hard to touch.
--- NOTE | 2018-09-13 10:32 | NUR ---
THOMAS Ramsay said to continue Merrem and Vancomycin, she will see pt today. Informed her that pharmacy is asking if antibiotics should be changed since cellulitis has not resolved. THOMAS Ramsay said no to changing antibiotics.
[2018-09-13] MEDS: INSULIN REGULAR, HUMAN 100 UNIT/ML 3 ML VIAL SQ PRN ×2 (11:46→18:39)
[2018-09-13 17:24] VITALS: BP 122/54
[2018-09-13 18:40] VITALS: BP 129/61
--- NOTE | 2018-09-13 19:00 | NUR ---
Seen by CORRECTION LIEUTENANT Debby Redman. She said pt just needs silver nitrate on the GT site. Asked her if she noticed part of the GT balloon through the stoma. She ordered to do KUB with gastrograffin to confirm GT placement. She also said she noticed some rashes and ordered Benadryl 25 mg GT x 1.
--- NOTE | 2018-09-13 19:03 | NUR ---
Seen by THOMAS Ramsay. She said GT site still looks infected and to continue Merrem and Vancomycin indefinitely.
[2018-09-13] MEDS ORDERED: DIATR MEGLU/DIATRIZOATE SODIUM 30 ML BOTTLE (GASTROGRAPHIN) ONE (19:14)
[2018-09-13 19:56] VITALS: BP 154/76
[2018-09-13] MEDS ORDERED: diphenhydrAMINE HCL ELIX 25 MG/10 ML UDC GT ONE ×2 (20:00)
[2018-09-14 00:36] VITALS: BP 136/64
[2018-09-14] MEDS: BLOOD SUGAR DIAGNOSTIC 1 EACH STRIP IN SCH ×4 (00:37→17:51)
[2018-09-14] MEDS: INSULIN REGULAR, HUMAN 100 UNIT/ML 3 ML VIAL SQ PRN ×2 (00:38→17:52)
[2018-09-14] MEDS: ALBUTEROL FS 2.5 MG/3 ML VIAL.NEB NEB SCH ×4 (02:11→20:06)
[2018-09-14] MEDS: IPRATROPIUM NEB FS 0.5 MG/2.5 ML AMPUL.NEB NEB SCH ×4 (02:11→20:06)
[2018-09-14] MEDS: MEROPENEM 500 MG in IV NS 0.9% 50 ML IV SCH ×2 (04:00→16:42)
[2018-09-14] MEDS: MAG HYDROX/AL HYDROX/SIMETH 30 ML UDC TP SCH ×4 (05:48→23:00)
[2018-09-14] MEDS: PROSOURCE / PROSTAT (PYXIS) 30 ML UDC GT SCH ×5 (05:48→21:12)
[2018-09-14] MEDS: ESOMEPRAZOLE MAG TRIHYDRATE 20 MG CAPSULE.DR GT SCH (05:48)
[2018-09-14 06:35] VITALS: BP 138/65
[2018-09-14 07:32] VITALS: BP 137/45
[2018-09-14] MEDS: TRIAMCINOLONE ACETONIDE 0.1% CR 15 GM TUBE TP SCH ×2 (09:00→21:13)
[2018-09-14] MEDS: ACIDOPHILUS/BULGARICUS 1 EACH TAB.CHEW GT SCH ×2 (09:00→17:47)
[2018-09-14] MEDS: HYDROGEN PEROXIDE 480 ML BOTTLE TP SCH ×2 (09:00→21:13)
[2018-09-14] MEDS: SEVELAMER CARBONATE 0.8 GM POWD.PACK GT SCH ×2 (09:00→17:47)
[2018-09-14] MEDS: POLYVINYL ALCOHOL 15 ML BOTTLE EACHEYE SCH ×2 (09:00→21:12)
[2018-09-14] MEDS: METOCLOPRAMIDE HCL 10 MG/10 ML UDC GT SCH ×2 (09:00→21:12)
[2018-09-14] MEDS: Z GUARD REMEDY 4 OZ OINT TP SCH ×2 (09:00→21:13)
[2018-09-14] MEDS: POVIDONE-IODINE OINT 28.4 GM TUBE TP SCH ×2 (09:00→21:13)
[2018-09-14] MEDS: NYSTATIN CREAM 15 GM TUBE TP SCH ×2 (09:00→21:13)
[2018-09-14] MEDS: INSULIN GLARGINE, 100 UNIT/ML CARTRIDGE SQ SCH ×2 (09:00→21:14)
[2018-09-14] MEDS: ASCORBIC ACID 500 MG TABLET GT SCH (09:00)
[2018-09-14] MEDS: HEPARIN SODIUM, PORCINE 5000 UNITS/1 ML VIAL SQ SCH ×2 (09:00→21:13)
[2018-09-14] MEDS: VIT B CMPLX 3/FA/VIT C/BIOTIN 1 TAB TABLET GT SCH (09:00)
[2018-09-14] MEDS: HYDROGEL DRESSING 90 GM TUBE TP SCH ×2 (09:00→21:13)
[2018-09-14] MEDS: ACETAMINOPHEN 650 MG/20 ML UDC- SA PATIENTS-PAIN ONLY GT SCH ×2 (09:00→21:12)
--- NOTE | 2018-09-14 10:08 | NUR ---
Seen and examined by Dr. Morejon, NNO given.
[2018-09-14 17:17] VITALS: BP 137/45
[2018-09-14] MEDS: VANCOMYCIN 500 MG in IV D5W 100ml IV SCH (17:22)
[2018-09-14 18:19] VITALS: BP 132/68
[2018-09-14 19:35] VITALS: BP 113/55
[2018-09-14] MEDS: METOPROLOL TARTRATE 50 MG TABLET GT SCH (21:14)
[2018-09-15 00:17] VITALS: BP 136/59
[2018-09-15] MEDS: BLOOD SUGAR DIAGNOSTIC 1 EACH STRIP IN SCH ×5 (00:19→23:39)
[2018-09-15] MEDS: ALBUTEROL FS 2.5 MG/3 ML VIAL.NEB NEB SCH ×4 (01:39→19:45)
[2018-09-15] MEDS: IPRATROPIUM NEB FS 0.5 MG/2.5 ML AMPUL.NEB NEB SCH ×4 (01:39→19:45)
[2018-09-15] MEDS: MEROPENEM 500 MG in IV NS 0.9% 50 ML IV SCH ×2 (04:00→16:00)
[2018-09-15] MEDS: PROSOURCE / PROSTAT (PYXIS) 30 ML UDC GT SCH ×3 (05:00→12:53)
[2018-09-15] MEDS: MAG HYDROX/AL HYDROX/SIMETH 30 ML UDC TP SCH ×4 (05:00→23:32)
[2018-09-15 06:17] VITALS: BP 140/62
[2018-09-15] MEDS: ESOMEPRAZOLE MAG TRIHYDRATE 20 MG CAPSULE.DR GT SCH (06:19)
[2018-09-15] MEDS: INSULIN REGULAR, HUMAN 100 UNIT/ML 3 ML VIAL SQ PRN ×4 (06:20→23:40)
[2018-09-15 07:29] VITALS: BP 118/41
[2018-09-15] MEDS: HEPARIN SODIUM, PORCINE 5000 UNITS/1 ML VIAL SQ SCH ×2 (09:00→21:37)
[2018-09-15] MEDS: Z GUARD REMEDY 4 OZ OINT TP SCH ×2 (09:00→21:58)
[2018-09-15] MEDS: ACIDOPHILUS/BULGARICUS 1 EACH TAB.CHEW GT SCH ×2 (09:00→17:52)
[2018-09-15] MEDS: SEVELAMER CARBONATE 0.8 GM POWD.PACK GT SCH ×2 (09:00→17:52)
[2018-09-15] MEDS: ASCORBIC ACID 500 MG TABLET GT SCH (09:00)
[2018-09-15] MEDS: hydrALAZINE HCL 25 MG TABLET GT SCH (09:00)
[2018-09-15] MEDS: METOPROLOL TARTRATE 50 MG TABLET GT SCH ×2 (09:00→21:37)
[2018-09-15] MEDS: ACETAMINOPHEN 650 MG/20 ML UDC- SA PATIENTS-PAIN ONLY GT SCH ×3 (09:00→21:37)
[2018-09-15] MEDS: METOCLOPRAMIDE HCL 10 MG/10 ML UDC GT SCH ×2 (09:00→21:36)
[2018-09-15] MEDS: INSULIN GLARGINE, 100 UNIT/ML CARTRIDGE SQ SCH ×2 (09:00→22:03)
[2018-09-15] MEDS: VIT B CMPLX 3/FA/VIT C/BIOTIN 1 TAB TABLET GT SCH (09:00)
[2018-09-15] MEDS: POLYVINYL ALCOHOL 15 ML BOTTLE EACHEYE SCH ×2 (09:17→21:36)
--- NOTE | 2018-09-15 10:10 | NUR ---
Found resident's GT out with balloon intact. Replace GT with Fr 20cc/10 ml balloon. Paged SHAMEKA Hopkins vp integration to assess GT site and obtain KUB order. Awaiting for MD to call. back.
[2018-09-15 12:00] VITALS: BP 118/56
--- NOTE | 2018-09-15 12:30 | NUR ---
Made a follow-up call to SHAMEKA Marinelli regarding condition of patient's GT. Awaiting for call back.
--- NOTE | 2018-09-15 14:00 | NUR ---
Spoke with SHAMEKA Marinelli, reported condition of patient's GT, asked if he has any orders like KUB, he said that he will see the patient shortly.
--- NOTE | 2018-09-15 14:50 | NUR ---
Dr. Chacon, GI seen and assessed patient's GT stoma. He said that the plan is to keep the area dry so it will heal. Do not use GT for feeding but may use it for medication administration with small amount of water. He also mentioned that patient should start TPN and IV Protonix. Orders noted and carried out. Paged Dr. Castro to notify him of the above. Awaiting for call back.
--- NOTE | 2018-09-15 14:55 | NUR ---
Dr. Chacon removed the GT that was previously inserted Fr. 20 and changed it to a smaller GT, Fr. 14. He said the goal is to keep the site open but he wants the site to heal and rest.
[2018-09-15] MEDS: NYSTATIN CREAM 15 GM TUBE TP SCH ×2 (15:00→21:58)
[2018-09-15] MEDS: TRIAMCINOLONE ACETONIDE 0.1% CR 15 GM TUBE TP SCH ×2 (15:00→21:57)
[2018-09-15] MEDS: HYDROGEL DRESSING 90 GM TUBE TP SCH ×2 (15:00→21:58)
[2018-09-15] MEDS: HYDROGEN PEROXIDE 480 ML BOTTLE TP SCH ×2 (15:00→21:58)
[2018-09-15] MEDS: POVIDONE-IODINE OINT 28.4 GM TUBE TP SCH ×2 (15:00→21:58)
[2018-09-15] MEDS ORDERED: TPN/PPN PER PHARMACY XX PRN (15:30)
--- NOTE | 2018-09-15 15:45 | NUR ---
Made another follow-up call with Dr. Castro. After returning the call, informed MD that patient's GT was seen by GI, Dr. Chacon with recommendation to start patient with TPN and no to use GT at all for feeding to heal the site. Dr. Castro agreed. He also ordered to insert midline or PICC line for TPN administration. Nursing supervisor tumbling and rolling notified.
--- NOTE | 2018-09-15 17:30 | NUR ---
Spoke with Kimberly from [facility] and requesting most recent lab result to be use by pharmacy to dose patient's TPN. According to Kimberly she is not able to print the report as she does not have access to it, but gave a verbal report of the major electrolytes. Result relayed to Pawel from [facility] pharmacy but stated that he wants a recent result. Lab result given by Kimberly from [facility] was collected on 09/09/18.
[2018-09-15 18:00] VITALS: BP 140/78
--- NOTE | 2018-09-15 18:00 | NUR ---
Called [facility] pharmacy to ask when TPN will be started. Per pharmacist, Manasa it is the protocol of pharmacy not to start TPN after 5 PM, and that patient should be off any form of feeding for 5 days. However informed pharmacist that GT cannot be use for feeding and patient is not on any IV hydration. Paged Dr. Castro to notify him of above. Awaiting for call back.
--- NOTE | 2018-09-15 18:15 | NUR ---
Midline inserted in the L upper arm Fr 5, by PICC line nurse. He said that this can be use for TPN administration. Resident tolerated procedure. Consent obtain from John Woodall, responsible green party witnessed by 2 licensed nurses. John also informed of the condition of patient's GT site, ATB order and the plan to start her on TPN. Appreciated the call.
--- NOTE | 2018-09-15 18:30 | NUR ---
Received a call from Dr. Castro, informed that TPN cannot be started till the next day per protocol per pharmacy. New order given for IVF. Order noted and carried out.
[2018-09-15] MEDS ORDERED: IV D5/ 0.9% NACL 1,000 ML IV PRN (19:00)
[2018-09-15] MEDS: SILVER NITRATE APPLICATOR 1 EA BOX TP SCH (19:30)
[2018-09-15] MEDS: PANTOPRAZOLE 40 MG VIAL IV SCH (20:32)
[2018-09-15] MEDS ORDERED: PANTOPRAZOLE 40 MG VIAL IV SCH ×2 (21:00)
[2018-09-16] VITALS (7 sets, daily range): BP systolic 112–148; BP diastolic 54–75
[2018-09-16] MEDS: IPRATROPIUM NEB FS 0.5 MG/2.5 ML AMPUL.NEB NEB SCH ×4 (02:11→20:04)
[2018-09-16] MEDS: ALBUTEROL FS 2.5 MG/3 ML VIAL.NEB NEB SCH ×4 (02:11→20:04)
[2018-09-16] MEDS: MEROPENEM 500 MG in IV NS 0.9% 50 ML IV SCH ×2 (04:07→16:16)
[2018-09-16] MEDS: MAG HYDROX/AL HYDROX/SIMETH 30 ML UDC TP SCH ×4 (05:45→23:00)
[2018-09-16] MEDS: INSULIN REGULAR, HUMAN 100 UNIT/ML 3 ML VIAL SQ PRN ×2 (05:52→18:11)
[2018-09-16] MEDS: BLOOD SUGAR DIAGNOSTIC 1 EACH STRIP IN SCH ×3 (05:52→18:10)
--- NOTE | 2018-09-16 06:51 | NUR ---
PT GT SITE STILL WITH LEAKAGE,FREQUENT CHANGE OF GAUZE NEEDED.IVF OF D5NS 60ML/HR INFUSING CONTINUOUSLY UNTIL TPN STARTED.WILL ENDORSE.
[2018-09-16 07:19] LABS: CREATININE 3.3 mg/dL (0.6-1.3); POTASSIUM 3.6 mmol/L (3.5-5.1)
[2018-09-16] MEDS: METOCLOPRAMIDE HCL 10 MG/10 ML UDC GT SCH ×2 (08:46→21:22)
[2018-09-16] MEDS: ACIDOPHILUS/BULGARICUS 1 EACH TAB.CHEW GT SCH ×2 (08:46→17:00)
[2018-09-16] MEDS: POLYVINYL ALCOHOL 15 ML BOTTLE EACHEYE SCH ×2 (08:46→21:22)
[2018-09-16] MEDS: VIT B CMPLX 3/FA/VIT C/BIOTIN 1 TAB TABLET GT SCH (08:46)
[2018-09-16] MEDS: SEVELAMER CARBONATE 0.8 GM POWD.PACK GT SCH ×2 (08:46→17:00)
[2018-09-16] MEDS: ACETAMINOPHEN 650 MG/20 ML UDC- SA PATIENTS-PAIN ONLY GT SCH ×2 (08:47→21:22)
[2018-09-16] MEDS: ASCORBIC ACID 500 MG TABLET GT SCH (08:47)
[2018-09-16] MEDS: HEPARIN SODIUM, PORCINE 5000 UNITS/1 ML VIAL SQ SCH ×2 (08:48→21:23)
[2018-09-16] MEDS: INSULIN GLARGINE, 100 UNIT/ML CARTRIDGE SQ SCH ×2 (08:49→21:25)
--- NOTE | 2018-09-16 09:03 | NUR ---
RT PATIENT REC'D ON MECHANICAL VENTILATION WITH CHARTED AC SETTINGS. NO SOB NOTED AT THIS TIME. CUFF CHECKED VIA BUYER BROKER. VENT PLUGGED INTO RED OUTLET. ALARMS ON AND AUDIBLE. TX GIVEN, SX DONE, MODERATE THICK YELLOW/WHITE SECRETIONS NOTED. WILL CONTINUE TO MONITOR. Addendum: 09/16/18 at 0903 by LONA PAGAN RT Amended: Links added.
[2018-09-16 09:11] LABS: BASOPHILS % (AUTO) 0.6 % (0.0-2.0); EOSINOPHILS % (AUTO) 2.6 % (0.0-6.0); HEMATOCRIT 30 % (33-45); HEMOGLOBIN 9.4 g/dL (11.5-14.8); LYMPHOCYTES # (AUTO) 1.1 /CMM (0.8-4.8); LYMPHOCYTES % (AUTO) 16.5 % (20.0-44.0); MEAN CORPUSCULAR HGB CONC 32 g/dl (31.0-36.0); MEAN CORPUSCULAR VOLUME 87 fL (82-100); MONOCYTES # (AUTO) 0.5 /CMM (0.1-1.30); NEUTROPHILS # (AUTO) 4.8 /CMM (1.8-8.9); NEUTROPHILS % (AUTO) 73.3 % (43.0-81.0); PLATELET COUNT (AUTO) 173 /CMM (150-450); RED BLOOD CELL COUNT(AUTO) 3.44 MIL/uL (4.0-5.2); WHITE BLOOD COUNT (AUTO) 6.5 K/uL (4.3-11.0)
[2018-09-16 09:28] LABS: MAGNESIUM 2.4 mg/dL (1.8-2.4); PHOSPHORUS 4.1 mg/dL (2.5-4.9)
[2018-09-16] MEDS: Z GUARD REMEDY 4 OZ OINT TP SCH ×2 (09:47→21:24)
[2018-09-16] MEDS: HYDROGEN PEROXIDE 480 ML BOTTLE TP SCH ×2 (09:47→21:23)
[2018-09-16] MEDS: HYDROGEL DRESSING 90 GM TUBE TP SCH ×2 (09:47→21:23)
[2018-09-16] MEDS: TRIAMCINOLONE ACETONIDE 0.1% CR 15 GM TUBE TP SCH ×2 (09:47→21:23)
[2018-09-16] MEDS: POVIDONE-IODINE OINT 28.4 GM TUBE TP SCH ×2 (09:47→21:23)
[2018-09-16] MEDS: NYSTATIN CREAM 15 GM TUBE TP SCH ×2 (09:47→21:24)
--- NOTE | 2018-09-16 10:25 | NUR ---
Resident picked up by Ambulance via [facility] for hemodialyisi treatment, accompanied by 2 EMT's and 1 RT. Right forearm AV shunt intact, no bleeding noted, positive for thrill and bruitt. Trach intact at midline, airway patent, connected to vent with prescribed settings as ordered. No respiratory distress noted. Resident left building in stable condition.
[2018-09-16] MEDS ORDERED: TPN BAG #2 IV SCH ×7 (11:00)
[2018-09-16] MEDS ORDERED: TPN BAG #1 IV SCH ×7 (12:00)
[2018-09-16] MEDS ORDERED: FEE TPN 1 MIN EA MC ONE (13:39)
[2018-09-16] MEDS: PANTOPRAZOLE 40 MG VIAL IV SCH ×2 (15:00→21:00)
--- NOTE | 2018-09-16 15:05 | NUR ---
Resident returned from S/P hemodialyis treatment, no s/s of any complications noted. RFA AV shunt intact, covered with dressing, clean and dry. No active bleeding noted. No respiratory distress noted. kept comfortable in bed.
[2018-09-16] MEDS: VANCOMYCIN 500 MG in IV D5W 100ml IV SCH (17:56)
--- NOTE | 2018-09-16 18:28 | NUR ---
Spoke with Dr Chacon regarding Protonix. Informed him that there is a shortage on Protonix and pharmacy is recommending to change Protonix to Pepcid IV. Dr Chacon said Protonix and Pepcid does not work the same way, and if Pepcid is given then pt is not going to be treated correctly which will cause pt to be on more antibiotics for a longer period, so he said he is not changing his order. Addendum: 09/16/18 at 1834 by GEORGE CLEARY RN Informed [facility] pharmacy, spoke with Landy.
--- NOTE | 2018-09-16 21:43 | NUR ---
RT NOTE PATIENT RECEIVED TRACHED ON COOL AEROSOL. PLACED PATIENT ON MECHANICAL VENTILATION. CUFF CHECKED VIA OFFICE ENGINEER. TX GIVEN, NO ADVERSE REACTIONS NOTED. SX DONE, SMALL THICK WHITE SECRETIONS NOTED. ALARMS ON AND AUDIBLE. VENT PLUGGED TO RED OUTLET. NO DISTRESS NOTED. WILL MONITOR T/O SHIFT. Addendum: 09/16/18 at 2148 by CARI TRIANA RT Amended: Links added.
[2018-09-16] MEDS: METOPROLOL TARTRATE 50 MG TABLET GT SCH (22:00)
[2018-09-17] VITALS: BP 153/74
[2018-09-17] MEDS: BLOOD SUGAR DIAGNOSTIC 1 EACH STRIP IN SCH ×4 (00:42→18:07)
[2018-09-17] MEDS: INSULIN REGULAR, HUMAN 100 UNIT/ML 3 ML VIAL SQ PRN ×3 (00:43→18:07)
[2018-09-17] MEDS: ALBUTEROL FS 2.5 MG/3 ML VIAL.NEB NEB SCH ×4 (01:40→19:28)
[2018-09-17] MEDS: IPRATROPIUM NEB FS 0.5 MG/2.5 ML AMPUL.NEB NEB SCH ×4 (01:40→19:28)
[2018-09-17] MEDS: MEROPENEM 500 MG in IV NS 0.9% 50 ML IV SCH ×2 (04:00→16:00)
[2018-09-17] MEDS: MAG HYDROX/AL HYDROX/SIMETH 30 ML UDC TP SCH ×4 (04:39→23:00)
[2018-09-17 06:00] VITALS: BP 149/71
[2018-09-17 06:43] LABS: CALCIUM, SERUM 8.7 mg/dL (8.5-10.1); CREATININE 2.9 mg/dL (0.6-1.3); POTASSIUM 4.5 mmol/L (3.5-5.1)
[2018-09-17 07:29] VITALS: BP 133/55
[2018-09-17] MEDS: NYSTATIN CREAM 15 GM TUBE TP SCH ×2 (09:00→21:34)
[2018-09-17] MEDS: INSULIN GLARGINE, 100 UNIT/ML CARTRIDGE SQ SCH ×2 (09:00→21:36)
[2018-09-17] MEDS: HYDROGEN PEROXIDE 480 ML BOTTLE TP SCH ×2 (09:00→21:34)
[2018-09-17] MEDS: POVIDONE-IODINE OINT 28.4 GM TUBE TP SCH ×2 (09:00→21:34)
[2018-09-17] MEDS: TRIAMCINOLONE ACETONIDE 0.1% CR 15 GM TUBE TP SCH ×2 (09:00→21:34)
[2018-09-17] MEDS: HYDROGEL DRESSING 90 GM TUBE TP SCH ×2 (09:00→21:34)
[2018-09-17] MEDS: Z GUARD REMEDY 4 OZ OINT TP SCH ×2 (09:00→21:34)
[2018-09-17] MEDS: POLYVINYL ALCOHOL 15 ML BOTTLE EACHEYE SCH ×2 (09:03→21:33)
[2018-09-17] MEDS: ACIDOPHILUS/BULGARICUS 1 EACH TAB.CHEW GT SCH ×2 (09:04→17:00)
[2018-09-17] MEDS: hydrALAZINE HCL 25 MG TABLET GT SCH (09:04)
[2018-09-17] MEDS: VIT B CMPLX 3/FA/VIT C/BIOTIN 1 TAB TABLET GT SCH (09:04)
[2018-09-17] MEDS: SEVELAMER CARBONATE 0.8 GM POWD.PACK GT SCH ×2 (09:04→17:00)
[2018-09-17] MEDS: METOPROLOL TARTRATE 50 MG TABLET GT SCH ×2 (09:04→21:34)
[2018-09-17] MEDS: METOCLOPRAMIDE HCL 10 MG/10 ML UDC GT SCH ×2 (09:04→21:33)
[2018-09-17] MEDS: ASCORBIC ACID 500 MG TABLET GT SCH (09:05)
[2018-09-17] MEDS: ACETAMINOPHEN 650 MG/20 ML UDC- SA PATIENTS-PAIN ONLY GT SCH ×2 (09:05→21:33)
[2018-09-17] MEDS: HEPARIN SODIUM, PORCINE 5000 UNITS/1 ML VIAL SQ SCH ×2 (09:06→21:34)
[2018-09-17] MEDS: PANTOPRAZOLE 40 MG VIAL IV SCH ×2 (09:49→20:41)
[2018-09-17 10:02] LABS: MAGNESIUM 2.2 mg/dL (1.8-2.4); PHOSPHORUS 3.6 mg/dL (2.5-4.9)
[2018-09-17] MEDS ORDERED: TPN BAG #4 IV SCH ×7 (12:30)
[2018-09-17] MEDS ORDERED: TPN BAG #3 IV SCH ×7 (12:30)
[2018-09-17 13:14] VITALS: BP 133/55
[2018-09-17 18:36] VITALS: BP 128/69
[2018-09-17 19:29] VITALS: BP 144/63
[2018-09-18] VITALS: BP 106/49
[2018-09-18] MEDS: BLOOD SUGAR DIAGNOSTIC 1 EACH STRIP IN SCH ×4 (00:18→18:16)
[2018-09-18] MEDS: INSULIN REGULAR, HUMAN 100 UNIT/ML 3 ML VIAL SQ PRN ×3 (00:21→18:16)
[2018-09-18] MEDS: IPRATROPIUM NEB FS 0.5 MG/2.5 ML AMPUL.NEB NEB SCH ×4 (01:26→19:52)
[2018-09-18] MEDS: ALBUTEROL FS 2.5 MG/3 ML VIAL.NEB NEB SCH ×4 (01:26→19:52)
--- NOTE | 2018-09-18 02:55 | NUR ---
TPN bag #2 completed.Started TPN bag#3 60ml/hr infusing well.
[2018-09-18] MEDS: MEROPENEM 500 MG in IV NS 0.9% 50 ML IV SCH ×2 (04:00→16:00)
[2018-09-18] MEDS: MAG HYDROX/AL HYDROX/SIMETH 30 ML UDC TP SCH ×4 (05:02→23:00)
[2018-09-18 06:00] VITALS: BP 153/57
[2018-09-18 07:29] LABS: CALCIUM, SERUM 8.8 mg/dL (8.5-10.1); CREATININE 3.5 mg/dL (0.6-1.3); POTASSIUM 3.5 mmol/L (3.5-5.1)
[2018-09-18 07:37] LABS: MAGNESIUM 2.2 mg/dL (1.8-2.4); PHOSPHORUS 3.5 mg/dL (2.5-4.9)
[2018-09-18 07:57] VITALS: BP 156/76
--- NOTE | 2018-09-18 08:00 | NUR ---
Called [facility] pharmacy to ask if pt needs to continue TPN when she goes out for dialysis. According to pharmacist (Sujatha), TPN can be stopped when she goes for dialysis.
[2018-09-18] MEDS: POLYVINYL ALCOHOL 15 ML BOTTLE EACHEYE SCH ×2 (08:49→21:10)
[2018-09-18] MEDS: ACIDOPHILUS/BULGARICUS 1 EACH TAB.CHEW GT SCH ×2 (08:49→16:24)
[2018-09-18] MEDS: VIT B CMPLX 3/FA/VIT C/BIOTIN 1 TAB TABLET GT SCH (08:49)
[2018-09-18] MEDS: METOCLOPRAMIDE HCL 10 MG/10 ML UDC GT SCH ×2 (08:49→21:15)
[2018-09-18] MEDS: SEVELAMER CARBONATE 0.8 GM POWD.PACK GT SCH ×2 (08:51→16:25)
[2018-09-18] MEDS: ASCORBIC ACID 500 MG TABLET GT SCH (08:52)
[2018-09-18] MEDS: HEPARIN SODIUM, PORCINE 5000 UNITS/1 ML VIAL SQ SCH ×2 (08:56→21:21)
[2018-09-18] MEDS: INSULIN GLARGINE, 100 UNIT/ML CARTRIDGE SQ SCH ×2 (09:10→23:00)
[2018-09-18] MEDS: PANTOPRAZOLE 40 MG VIAL IV SCH ×2 (09:47→21:17)
--- NOTE | 2018-09-18 10:10 | NUR ---
PT GOING TO DIALYSIS TX @ THIS TIME ON ORDERED AC VENT SETTINGS. NO RESPIRATORY DISTRESS NOTED. Addendum: 09/18/18 at 1012 by RACHELLE MENA RT Amended: Links added.
--- NOTE | 2018-09-18 10:10 | NUR ---
PT GOING TO DIALYSIS TX @ THIS TIME ON ORDERED AC VENT SETTINGS. NO RESPIRATORY DISTRESS NOTED. Addendum: 09/18/18 at 1011 by RACHELLE MENA RT Amended: Links added.
--- NOTE | 2018-09-18 10:20 | NUR ---
Informed APPRAISER AUDITOR Sobia that today is the last day of pt's Merrem and Vancomycin. GT site looking better, does not appear as red and inflamed as before, GT stoma also appears smaller. THOMAS Ramsay ordered to continue Merrem and Vancomycin for 7 more days.
[2018-09-18] MEDS ORDERED: VANCOMYCIN 500 MG in IV D5W 100ml IV SCH (10:24)
[2018-09-18] MEDS ORDERED: MEROPENEM 500 MG in IV NS 0.9% 50 ML IV SCH (10:30)
--- NOTE | 2018-09-18 15:08 | NUR ---
Pt came back from hemodialysis. Restarted pt's TPN.
[2018-09-18] MEDS: HYDROGEL DRESSING 90 GM TUBE TP SCH ×2 (15:30→21:11)
[2018-09-18] MEDS: Z GUARD REMEDY 4 OZ OINT TP SCH ×2 (15:30→21:11)
[2018-09-18] MEDS ORDERED: TPN BAG #5 IV SCH ×7 (15:30)
[2018-09-18] MEDS: NYSTATIN CREAM 15 GM TUBE TP SCH ×2 (15:30→21:11)
[2018-09-18] MEDS: HYDROGEN PEROXIDE 480 ML BOTTLE TP SCH ×2 (15:30→21:11)
[2018-09-18] MEDS: ACETAMINOPHEN 650 MG/20 ML UDC- SA PATIENTS-PAIN ONLY GT SCH ×2 (15:30→21:16)
--- NOTE | 2018-09-18 15:44 | NUR ---
RT : PT RETURNED FROM HEMODIALYSIS ON ORDERED AC VENT SETTINGS. NO ACUTE DISTRESS NOTED UPON ARRIVAL. TRACH CHECKED AND SECURE. VENT CHECKED AND WORKING. Addendum: 09/18/18 at 1545 by RACHELLE MENA RT Amended: Links added.
--- NOTE | 2018-09-18 15:52 | NUR ---
RT NOTE: RT NOTE: RECEIVED PT ON ORDERED AC VENT SETTINGS. NO RESPIRATORY DISTRESS NOTED. PT LEFT FACILITY FOR HEMODIALYSIS TX WITH NO COMPLICATIONS NOTED UPON LEAVING AND ARRIVAL BACK TO FACILITY. TRACH CHECKED SECURE AND PATENT. SXD AND LAVAGED PT Q ROUNDS AND NEEDED. TXS GIVEN ORDERED WITH NO ADVERSE REACTIONS NOTED. EMERGENCY EQUIPMENT @ BEDSIDE. ALARMS CHECKED ON AND AUDIBLE. WILL CONTINUE TO MONITOR.
[2018-09-18] MEDS: POVIDONE-IODINE OINT 28.4 GM TUBE TP SCH ×2 (16:30→21:11)
[2018-09-18] MEDS: TRIAMCINOLONE ACETONIDE 0.1% CR 15 GM TUBE TP SCH ×2 (16:30→21:11)
[2018-09-18] MEDS: VANCOMYCIN 500 MG in IV D5W 100ml IV SCH (17:37)
[2018-09-18 18:00] VITALS: BP 128/58
[2018-09-18 19:26] VITALS: BP 129/65
[2018-09-18] MEDS: METOPROLOL TARTRATE 50 MG TABLET GT SCH (21:12)
[2018-09-19 00:28] VITALS: BP 124/65
[2018-09-19] MEDS: BLOOD SUGAR DIAGNOSTIC 1 EACH STRIP IN SCH ×4 (00:41→17:50)
[2018-09-19] MEDS: ALBUTEROL FS 2.5 MG/3 ML VIAL.NEB NEB SCH ×4 (01:45→19:34)
[2018-09-19] MEDS: IPRATROPIUM NEB FS 0.5 MG/2.5 ML AMPUL.NEB NEB SCH ×4 (01:45→19:34)
[2018-09-19] MEDS: MEROPENEM 500 MG in IV NS 0.9% 50 ML IV SCH ×2 (04:00→16:00)
[2018-09-19] MEDS: MAG HYDROX/AL HYDROX/SIMETH 30 ML UDC TP SCH ×4 (05:20→23:00)
[2018-09-19] MEDS: INSULIN REGULAR, HUMAN 100 UNIT/ML 3 ML VIAL SQ PRN ×3 (05:24→17:54)
[2018-09-19 06:36] VITALS: BP 118/70
[2018-09-19 07:54] VITALS: BP 146/106
[2018-09-19 08:57] LABS: CALCIUM, SERUM 9.1 mg/dL (8.5-10.1); CREATININE 2.6 mg/dL (0.6-1.3); POTASSIUM 4.1 mmol/L (3.5-5.1)
[2018-09-19] MEDS: HEPARIN SODIUM, PORCINE 5000 UNITS/1 ML VIAL SQ SCH ×2 (09:00→20:32)
[2018-09-19] MEDS: VIT B CMPLX 3/FA/VIT C/BIOTIN 1 TAB TABLET GT SCH (09:00)
[2018-09-19] MEDS: TRIAMCINOLONE ACETONIDE 0.1% CR 15 GM TUBE TP SCH ×2 (09:00→20:33)
[2018-09-19] MEDS: POLYVINYL ALCOHOL 15 ML BOTTLE EACHEYE SCH ×2 (09:00→20:27)
[2018-09-19] MEDS: NYSTATIN CREAM 15 GM TUBE TP SCH ×2 (09:00→20:33)
[2018-09-19] MEDS: METOPROLOL TARTRATE 50 MG TABLET GT SCH ×2 (09:00→21:55)
[2018-09-19] MEDS: METOCLOPRAMIDE HCL 10 MG/10 ML UDC GT SCH ×2 (09:00→20:28)
[2018-09-19] MEDS: Z GUARD REMEDY 4 OZ OINT TP SCH ×2 (09:00→20:33)
[2018-09-19] MEDS: PANTOPRAZOLE 40 MG VIAL IV SCH ×2 (09:00→21:00)
[2018-09-19] MEDS: HYDROGEN PEROXIDE 480 ML BOTTLE TP SCH ×2 (09:00→20:33)
[2018-09-19] MEDS: hydrALAZINE HCL 25 MG TABLET GT SCH (09:00)
[2018-09-19] MEDS: ACETAMINOPHEN 650 MG/20 ML UDC- SA PATIENTS-PAIN ONLY GT SCH ×2 (09:00→20:29)
[2018-09-19] MEDS: POVIDONE-IODINE OINT 28.4 GM TUBE TP SCH ×2 (09:00→20:33)
[2018-09-19] MEDS: ACIDOPHILUS/BULGARICUS 1 EACH TAB.CHEW GT SCH ×2 (09:00→16:26)
[2018-09-19] MEDS: SEVELAMER CARBONATE 0.8 GM POWD.PACK GT SCH ×2 (09:00→16:26)
[2018-09-19] MEDS: INSULIN GLARGINE, 100 UNIT/ML CARTRIDGE SQ SCH ×2 (09:00→21:56)
[2018-09-19] MEDS: ASCORBIC ACID 500 MG TABLET GT SCH (09:00)
[2018-09-19] MEDS: HYDROGEL DRESSING 90 GM TUBE TP SCH ×2 (09:00→20:33)
[2018-09-19 09:58] LABS: MAGNESIUM 2.1 mg/dL (1.8-2.4); PHOSPHORUS 2.8 mg/dL (2.5-4.9)
[2018-09-19] MEDS: FAT EMULSION 20% 500 ML in PREMIX 1 EA IV SCH (14:00)
[2018-09-19 14:39] VITALS: BP 118/70
[2018-09-19 18:11] VITALS: BP 144/71
[2018-09-19 20:25] VITALS: BP 129/73
[2018-09-19] MEDS ORDERED: TPN BAG #6 IV SCH ×5 (23:00)
[2018-09-20] MEDS: BLOOD SUGAR DIAGNOSTIC 1 EACH STRIP IN SCH ×5 (00:05→23:38)
[2018-09-20] MEDS: INSULIN REGULAR, HUMAN 100 UNIT/ML 3 ML VIAL SQ PRN ×5 (00:06→23:39)
[2018-09-20 00:21] VITALS: BP 126/74
[2018-09-20] MEDS: IPRATROPIUM NEB FS 0.5 MG/2.5 ML AMPUL.NEB NEB SCH ×4 (01:49→19:39)
[2018-09-20] MEDS: ALBUTEROL FS 2.5 MG/3 ML VIAL.NEB NEB SCH ×4 (01:49→19:39)
[2018-09-20] MEDS: MAG HYDROX/AL HYDROX/SIMETH 30 ML UDC TP SCH ×4 (05:20→23:38)
[2018-09-20 06:07] VITALS: BP 146/72
[2018-09-20 07:31] VITALS: BP 137/52
[2018-09-20 08:07] LABS: CALCIUM, SERUM 8.9 mg/dL (8.5-10.1); CREATININE 3.2 mg/dL (0.6-1.3); MAGNESIUM 1.9 mg/dL (1.8-2.4); PHOSPHORUS 2.8 mg/dL (2.5-4.9); POTASSIUM 3.8 mmol/L (3.5-5.1)
[2018-09-20] MEDS: PANTOPRAZOLE 40 MG VIAL IV SCH ×2 (08:45→21:31)
[2018-09-20] MEDS: ACIDOPHILUS/BULGARICUS 1 EACH TAB.CHEW GT SCH ×2 (09:00→17:00)
[2018-09-20] MEDS: VIT B CMPLX 3/FA/VIT C/BIOTIN 1 TAB TABLET GT SCH (09:00)
[2018-09-20] MEDS: SEVELAMER CARBONATE 0.8 GM POWD.PACK GT SCH ×2 (09:00→17:00)
[2018-09-20] MEDS: Z GUARD REMEDY 4 OZ OINT TP SCH ×2 (09:00→20:22)
[2018-09-20] MEDS: HYDROGEN PEROXIDE 480 ML BOTTLE TP SCH ×2 (09:00→20:22)
[2018-09-20] MEDS: METOPROLOL TARTRATE 50 MG TABLET GT SCH ×2 (09:00→21:36)
[2018-09-20] MEDS: ACETAMINOPHEN 650 MG/20 ML UDC- SA PATIENTS-PAIN ONLY GT SCH ×2 (09:00→20:19)
[2018-09-20] MEDS: POLYVINYL ALCOHOL 15 ML BOTTLE EACHEYE SCH ×2 (09:00→20:17)
[2018-09-20] MEDS: HYDROGEL DRESSING 90 GM TUBE TP SCH ×2 (09:00→20:22)
[2018-09-20] MEDS: HEPARIN SODIUM, PORCINE 5000 UNITS/1 ML VIAL SQ SCH ×2 (09:00→20:22)
[2018-09-20] MEDS: ASCORBIC ACID 500 MG TABLET GT SCH (09:00)
[2018-09-20] MEDS: METOCLOPRAMIDE HCL 10 MG/10 ML UDC GT SCH ×2 (09:00→20:18)
[2018-09-20] MEDS: hydrALAZINE HCL 25 MG TABLET GT SCH (09:00)
[2018-09-20] MEDS: NYSTATIN CREAM 15 GM TUBE TP SCH ×2 (09:00→20:22)
[2018-09-20] MEDS: TRIAMCINOLONE ACETONIDE 0.1% CR 15 GM TUBE TP SCH ×2 (09:00→20:22)
[2018-09-20] MEDS: POVIDONE-IODINE OINT 28.4 GM TUBE TP SCH ×2 (09:00→20:22)
[2018-09-20] MEDS: INSULIN GLARGINE, 100 UNIT/ML CARTRIDGE SQ SCH ×2 (09:50→21:37)
[2018-09-20 12:00] VITALS: BP 142/70
[2018-09-20] MEDS: MEROPENEM 500 MG in IV NS 0.9% 50 ML IV SCH (16:00)
[2018-09-20 19:18] VITALS: BP 132/60
[2018-09-20 20:17] VITALS: BP 148/77
[2018-09-21] MEDS: IPRATROPIUM NEB FS 0.5 MG/2.5 ML AMPUL.NEB NEB SCH ×4 (00:49→19:36)
[2018-09-21] MEDS: ALBUTEROL FS 2.5 MG/3 ML VIAL.NEB NEB SCH ×4 (00:49→19:36)
[2018-09-21 01:17] VITALS: BP 155/78
[2018-09-21] MEDS: MEROPENEM 500 MG in IV NS 0.9% 50 ML IV SCH ×2 (03:34→16:00)
[2018-09-21] MEDS ORDERED: TPN BAG #7 IV PRN ×7 (05:00)
[2018-09-21] MEDS: MAG HYDROX/AL HYDROX/SIMETH 30 ML UDC TP SCH ×4 (05:24→22:01)
[2018-09-21] MEDS: BLOOD SUGAR DIAGNOSTIC 1 EACH STRIP IN SCH ×4 (05:24→23:58)
[2018-09-21] MEDS: INSULIN REGULAR, HUMAN 100 UNIT/ML 3 ML VIAL SQ PRN ×2 (05:25→23:58)
[2018-09-21 06:06] VITALS: BP 98/58
[2018-09-21 07:30] LABS: CALCIUM, SERUM 9.1 mg/dL (8.5-10.1); CREATININE 3.6 mg/dL (0.6-1.3); MAGNESIUM 1.9 mg/dL (1.8-2.4); PHOSPHORUS 3.4 mg/dL (2.5-4.9); POTASSIUM 4.4 mmol/L (3.5-5.1)
[2018-09-21 07:42] VITALS: BP 151/88
[2018-09-21] MEDS: PANTOPRAZOLE 40 MG VIAL IV SCH ×2 (09:00→21:00)
--- NOTE | 2018-09-21 09:05 | NUR ---
Seen and examined by Dr. Morejon, NNO given.
[2018-09-21] MEDS: INSULIN GLARGINE, 100 UNIT/ML CARTRIDGE SQ SCH ×3 (09:20→22:01)
--- NOTE | 2018-09-21 09:25 | NUR ---
Spoke with Landy from [facility] pharmacy and said that there is a shortage of IV Protonix, she said IV Nexium is available. Called [facility] pharmacistSuzette to follow-up if the IV Protonix has been approved by patient's insurance and if they have a supply available. After checking, she said that Medical approved IV Protonix and will send the 1 vial they have. She will order more. According to Suzette, medication will be in around 1300.
[2018-09-21] MEDS: VIT B CMPLX 3/FA/VIT C/BIOTIN 1 TAB TABLET GT SCH (09:39)
[2018-09-21] MEDS: SEVELAMER CARBONATE 0.8 GM POWD.PACK GT SCH ×2 (09:39→17:00)
[2018-09-21] MEDS: HEPARIN SODIUM, PORCINE 5000 UNITS/1 ML VIAL SQ SCH ×2 (09:39→20:11)
[2018-09-21] MEDS: ACIDOPHILUS/BULGARICUS 1 EACH TAB.CHEW GT SCH ×2 (09:39→17:00)
[2018-09-21] MEDS: METOCLOPRAMIDE HCL 10 MG/10 ML UDC GT SCH ×2 (09:39→20:08)
[2018-09-21] MEDS: POLYVINYL ALCOHOL 15 ML BOTTLE EACHEYE SCH ×2 (09:39→20:07)
[2018-09-21] MEDS: ASCORBIC ACID 500 MG TABLET GT SCH (09:39)
--- NOTE | 2018-09-21 11:00 | NUR ---
Resident left for dialysis in stable condition, TPN held while on dialysis. AV fistula in the R FA + for bruit and trill, no bleeding in the site. Stable and report given to ambulance staff.
[2018-09-21] MEDS ORDERED: TPN BAG #8 IV PRN ×13 (14:30→15:00)
[2018-09-21 14:50] VITALS: BP 148/72
[2018-09-21] MEDS: ACETAMINOPHEN 650 MG/20 ML UDC- SA PATIENTS-PAIN ONLY GT SCH ×2 (15:17→20:09)
[2018-09-21] MEDS: FAT EMULSION 20% 500 ML in PREMIX 1 EA IV SCH (15:30)
[2018-09-21] MEDS: HYDROGEN PEROXIDE 480 ML BOTTLE TP SCH ×2 (16:30→20:11)
[2018-09-21] MEDS: TRIAMCINOLONE ACETONIDE 0.1% CR 15 GM TUBE TP SCH ×2 (16:30→20:11)
[2018-09-21] MEDS: HYDROGEL DRESSING 90 GM TUBE TP SCH ×2 (16:30→20:11)
[2018-09-21] MEDS: Z GUARD REMEDY 4 OZ OINT TP SCH ×2 (16:30→20:11)
[2018-09-21] MEDS: POVIDONE-IODINE OINT 28.4 GM TUBE TP SCH ×2 (16:30→20:11)
[2018-09-21] MEDS: NYSTATIN CREAM 15 GM TUBE TP SCH ×2 (16:30→20:11)
[2018-09-21] MEDS: VANCOMYCIN 500 MG in IV D5W 100ml IV SCH (17:00)
[2018-09-21 19:03] VITALS: BP 150/51
--- NOTE | 2018-09-21 19:30 | NUR ---
Dr. Chacon seen and examined GT stoma, he said that it is looking good but patient will still need TPN for a few more days. Redness in the GT site subsided, no leaking noted from the site.
[2018-09-21 19:45] VITALS: BP 157/73
[2018-09-21] MEDS: METOPROLOL TARTRATE 50 MG TABLET GT SCH (21:39)
[2018-09-22 00:23] VITALS: BP 153/73
[2018-09-22] MEDS: ALBUTEROL FS 2.5 MG/3 ML VIAL.NEB NEB SCH ×4 (00:55→20:24)
[2018-09-22] MEDS: IPRATROPIUM NEB FS 0.5 MG/2.5 ML AMPUL.NEB NEB SCH ×4 (00:55→20:24)
[2018-09-22] MEDS: MEROPENEM 500 MG in IV NS 0.9% 50 ML IV SCH ×2 (04:36→16:42)
[2018-09-22] MEDS: INSULIN REGULAR, HUMAN 100 UNIT/ML 3 ML VIAL SQ PRN ×3 (05:26→18:20)
[2018-09-22] MEDS: MAG HYDROX/AL HYDROX/SIMETH 30 ML UDC TP SCH ×4 (05:26→23:37)
[2018-09-22] MEDS: BLOOD SUGAR DIAGNOSTIC 1 EACH STRIP IN SCH ×3 (05:26→18:20)
[2018-09-22 06:07] VITALS: BP 119/71
[2018-09-22 07:17] LABS: CALCIUM, SERUM 8.7 mg/dL (8.5-10.1); CREATININE 2.6 mg/dL (0.6-1.3); MAGNESIUM 1.7 mg/dL (1.8-2.4); PHOSPHORUS 2.4 mg/dL (2.5-4.9); POTASSIUM 3.7 mmol/L (3.5-5.1)
[2018-09-22 08:00] VITALS: BP 164/72
[2018-09-22] MEDS: POLYVINYL ALCOHOL 15 ML BOTTLE EACHEYE SCH ×2 (08:40→21:31)
[2018-09-22] MEDS ORDERED: NEXIUM 40 MG VIAL IV ONE (08:41)
[2018-09-22] MEDS: ACIDOPHILUS/BULGARICUS 1 EACH TAB.CHEW GT SCH ×2 (08:41→16:41)
[2018-09-22] MEDS: hydrALAZINE HCL 25 MG TABLET GT SCH (08:41)
[2018-09-22] MEDS: METOCLOPRAMIDE HCL 10 MG/10 ML UDC GT SCH ×2 (08:42→21:31)
[2018-09-22] MEDS: ACETAMINOPHEN 650 MG/20 ML UDC- SA PATIENTS-PAIN ONLY GT SCH ×2 (08:42→21:31)
[2018-09-22] MEDS: METOPROLOL TARTRATE 50 MG TABLET GT SCH ×2 (08:42→21:35)
[2018-09-22] MEDS: ASCORBIC ACID 500 MG TABLET GT SCH (08:42)
[2018-09-22] MEDS: VIT B CMPLX 3/FA/VIT C/BIOTIN 1 TAB TABLET GT SCH (08:42)
[2018-09-22] MEDS: SEVELAMER CARBONATE 0.8 GM POWD.PACK GT SCH ×2 (08:42→16:41)
[2018-09-22] MEDS: HEPARIN SODIUM, PORCINE 5000 UNITS/1 ML VIAL SQ SCH ×2 (08:45→21:33)
[2018-09-22] MEDS: INSULIN GLARGINE, 100 UNIT/ML CARTRIDGE SQ SCH ×2 (08:47→22:39)
[2018-09-22] MEDS ORDERED: NEXIUM 40 MG VIAL IV SCH ×2 (09:00→11:30)
[2018-09-22] MEDS: Z GUARD REMEDY 4 OZ OINT TP SCH ×2 (09:30→21:58)
[2018-09-22] MEDS: NYSTATIN CREAM 15 GM TUBE TP SCH ×2 (09:30→21:58)
[2018-09-22] MEDS: HYDROGEN PEROXIDE 480 ML BOTTLE TP SCH ×2 (09:30→21:58)
[2018-09-22] MEDS: TRIAMCINOLONE ACETONIDE 0.1% CR 15 GM TUBE TP SCH ×2 (09:30→21:58)
[2018-09-22] MEDS: HYDROGEL DRESSING 90 GM TUBE TP SCH ×2 (09:30→21:58)
[2018-09-22] MEDS: POVIDONE-IODINE OINT 28.4 GM TUBE TP SCH ×2 (09:30→21:58)
[2018-09-22] MEDS ORDERED: TPN BAG #10 IV PRN ×6 (12:30)
[2018-09-22 12:48] VITALS: BP 144/75
--- NOTE | 2018-09-22 16:36 | NUR ---
Spoke with Tristan Jacobson IV pharmacist and faxed Vancomycin random level result (17).
--- NOTE | 2018-09-22 17:23 | NUR ---
Asked Dr. Chacon how long will patient be on TPN, since upper extremities extremely edematous. Patient is getting TPN at 60cc/hr. and Lipid at 20cc/hr. He said patients GT is not ready yet, although the outer skin is clearing up but the surrounding tissue still hard. According to Dr. Chacon it will take a few more days on TPN. Paged Dr. Enrique Castro to report above and if he will consider decreasing TPN rate. Also patients blood sugar tend to be lower than usual since patient started TPN. Will ask MD to evaluate current insulin dose. Spoke with chief cloth finishing range operator Melissa, awaiting for MD to call back.
--- NOTE | 2018-09-22 17:59 | NUR ---
Made a follow up call to Dr. Enrique Castro and reported patient arms edematous, he said that there are no new orders as far as decreasing the rate. It was mentioned to MD that BS has been ranging below 100 to low 100's since she started TPN. New order given to decrease current Lantus insulin order in half. Order noted and carried out.
--- NOTE | 2018-09-22 18:28 | NUR ---
Received a TO from [facility] IV pharmacist to continue Vancomycin 500mg. 3x per week after dialysis until 09/25/18, no more levels unless treatment is extended.
[2018-09-22 18:55] VITALS: BP 147/67
[2018-09-22] MEDS ORDERED: TPN BAG #9 IV PRN ×8 (19:00)
[2018-09-22 20:14] VITALS: BP 130/57
--- NOTE | 2018-09-22 20:24 | NUR ---
RECEIVED TRACH PT ON [facility] VENT WITH NOTED SETTINGS PER MD ORDERS. TRACH IS PATENT AND SECURED. ENVIRONMENTAL HEALTH SAFETY ENGINEER DONE. Q6 BREATHING TX GIVEN WITH NO ADVERSE REACTION NOTED. SX DONE PRN. VENT PLUGGED INTO RED OUTLET. ALARMS ON AND AUDIBLE. AMBU BAG @ BEDSIDE. NO RESP DISTRESS AT THIS TIME. WILL CONT TO MONITOR PT.
[2018-09-22] MEDS: NEXIUM 40 MG VIAL IV SCH (21:31)
[2018-09-23] MEDS: BLOOD SUGAR DIAGNOSTIC 1 EACH STRIP IN SCH ×4 (00:26→18:47)
[2018-09-23] MEDS: INSULIN REGULAR, HUMAN 100 UNIT/ML 3 ML VIAL SQ PRN ×4 (00:28→19:31)
[2018-09-23 00:29] VITALS: BP 128/68
[2018-09-23] MEDS: ALBUTEROL FS 2.5 MG/3 ML VIAL.NEB NEB SCH ×4 (01:17→19:10)
[2018-09-23] MEDS: IPRATROPIUM NEB FS 0.5 MG/2.5 ML AMPUL.NEB NEB SCH ×4 (01:17→19:10)
[2018-09-23] MEDS: MEROPENEM 500 MG in IV NS 0.9% 50 ML IV SCH ×2 (03:38→16:25)
[2018-09-23] MEDS: MAG HYDROX/AL HYDROX/SIMETH 30 ML UDC TP SCH ×4 (04:53→23:14)
[2018-09-23 06:23] VITALS: BP 156/77
[2018-09-23 07:35] VITALS: BP 154/83
[2018-09-23 08:05] LABS: CALCIUM, SERUM 9.1 mg/dL (8.5-10.1); CREATININE 3.2 mg/dL (0.6-1.3); POTASSIUM 3.2 mmol/L (3.5-5.1)
[2018-09-23] MEDS: ACIDOPHILUS/BULGARICUS 1 EACH TAB.CHEW GT SCH ×3 (08:05→16:37)
[2018-09-23] MEDS: VIT B CMPLX 3/FA/VIT C/BIOTIN 1 TAB TABLET GT SCH (08:05)
[2018-09-23] MEDS: METOCLOPRAMIDE HCL 10 MG/10 ML UDC GT SCH ×3 (08:06→21:24)
[2018-09-23] MEDS: POLYVINYL ALCOHOL 15 ML BOTTLE EACHEYE SCH ×2 (08:06→21:22)
[2018-09-23] MEDS: ASCORBIC ACID 500 MG TABLET GT SCH (08:09)
[2018-09-23] MEDS: ACETAMINOPHEN 650 MG/20 ML UDC- SA PATIENTS-PAIN ONLY GT SCH ×3 (08:09→21:26)
[2018-09-23] MEDS: INSULIN GLARGINE, 100 UNIT/ML CARTRIDGE SQ SCH ×2 (08:10→21:37)
[2018-09-23] MEDS: SEVELAMER CARBONATE 0.8 GM POWD.PACK GT SCH ×3 (08:13→16:38)
[2018-09-23] MEDS: Z GUARD REMEDY 4 OZ OINT TP SCH ×2 (08:14→21:28)
[2018-09-23] MEDS: NYSTATIN CREAM 15 GM TUBE TP SCH ×2 (08:14→21:28)
[2018-09-23] MEDS: HYDROGEL DRESSING 90 GM TUBE TP SCH ×2 (08:15→21:28)
[2018-09-23] MEDS: POVIDONE-IODINE OINT 28.4 GM TUBE TP SCH (08:15)
[2018-09-23] MEDS: HYDROGEN PEROXIDE 480 ML BOTTLE TP SCH ×2 (08:15→21:28)
[2018-09-23] MEDS: TRIAMCINOLONE ACETONIDE 0.1% CR 15 GM TUBE TP SCH ×2 (08:15→21:28)
[2018-09-23] MEDS: HEPARIN SODIUM, PORCINE 5000 UNITS/1 ML VIAL SQ SCH ×2 (08:16→21:28)
[2018-09-23] MEDS: NEXIUM 40 MG VIAL IV SCH ×2 (09:00→21:44)
--- NOTE | 2018-09-23 09:00 | NUR ---
Resident noted to have g-tube residual of 15 ml upon check, green color. sidewalk inspector notified. Held g-tube medication as noted per sidewalk inspector pending GI consult.
--- NOTE | 2018-09-23 10:00 | NUR ---
Spoke with Gulshan (Pharmacist) regarding TPN, patient going out of facity for dialysis today. He said we need to titrate TPN down to 30 cc/hr x 1 hr then 15cc/hr x 1 hr. then stop and resident can go for dialysis then restart TPN when she comes back. Called [facility] and rescheduled chair time to 1200.
[2018-09-23 10:43] LABS: MAGNESIUM 1.8 mg/dL (1.8-2.4); PHOSPHORUS 2.7 mg/dL (2.5-4.9)
--- NOTE | 2018-09-23 11:45 | NUR ---
Resident left for dialysis in stable condition, TPN tapered down and held while on dialysis. AV fistula in the R FA + for bruit and trill, no bleeding in the site. Stable and report given to ambulance staff.
[2018-09-23] MEDS: FAT EMULSION 20% 500 ML in PREMIX 1 EA IV SCH (16:25)
--- NOTE | 2018-09-23 16:25 | NUR ---
Resident came back from dialysis. Awake, no s/s of resp distress. Trach secured and midline. Transferred to bed and made comfortable. Dialysis site on right forearm no bleeding noted, pressure dressing dry and intact. TPN restarted. VS stable. Will continue to monitor.
--- NOTE | 2018-09-23 16:45 | NUR ---
RT NOTE: PATIENT IS CURRENTLY TRACHED ON MECHANICAL VENT. ALARMS VERIFIED AND AUDIBLE. SUCTIONED AND LAVAGED THICK WHITE/PARKINSON SECRETIONS. AMBU BAG AND NEW TRACH AT [facility].
[2018-09-23] MEDS: VANCOMYCIN 500 MG in IV D5W 100ml IV SCH (17:00)
[2018-09-23] MEDS ORDERED: TPN BAG #11 IV PRN ×7 (18:00)
[2018-09-23 20:00] VITALS: BP 132/89
[2018-09-23 20:18] VITALS: BP 132/89
[2018-09-23] MEDS: METOPROLOL TARTRATE 50 MG TABLET GT SCH (21:31)
--- NOTE | 2018-09-24 | NUR ---
press bucker notes blood sugar 122 no insulin coverages due at this time. no signs of hypo glycemia noted. will continue monitoring.
[2018-09-24] MEDS: BLOOD SUGAR DIAGNOSTIC 1 EACH STRIP IN SCH ×4 (00:22→17:24)
[2018-09-24] MEDS: INSULIN REGULAR, HUMAN 100 UNIT/ML 3 ML VIAL SQ PRN ×4 (00:27→17:26)
[2018-09-24] MEDS: IPRATROPIUM NEB FS 0.5 MG/2.5 ML AMPUL.NEB NEB SCH ×4 (00:40→19:32)
[2018-09-24] MEDS: ALBUTEROL FS 2.5 MG/3 ML VIAL.NEB NEB SCH ×4 (00:40→19:32)
[2018-09-24 00:54] VITALS: BP 127/87
[2018-09-24] MEDS: MEROPENEM 500 MG in IV NS 0.9% 50 ML IV SCH ×2 (04:00→15:44)
[2018-09-24] MEDS: MAG HYDROX/AL HYDROX/SIMETH 30 ML UDC TP SCH ×4 (05:36→23:00)
[2018-09-24 06:00] VITALS: BP 140/74
--- NOTE | 2018-09-24 07:00 | NUR ---
promotions executive notes blood sugar checked done 160, 2 units of insulin given stormy SQ as ordered. pt stable stormy the night. no signs of any distress noted. endorse to am nurse for continuity of care.
[2018-09-24 07:56] VITALS: BP 187/85
[2018-09-24 08:40] LABS: CALCIUM, SERUM 8.9 mg/dL (8.5-10.1); CREATININE 2.6 mg/dL (0.6-1.3); POTASSIUM 3.2 mmol/L (3.5-5.1)
[2018-09-24] MEDS: ASCORBIC ACID 500 MG TABLET GT SCH (08:40)
[2018-09-24] MEDS: SEVELAMER CARBONATE 0.8 GM POWD.PACK GT SCH ×2 (08:40→17:24)
[2018-09-24] MEDS: VIT B CMPLX 3/FA/VIT C/BIOTIN 1 TAB TABLET GT SCH (08:40)
[2018-09-24] MEDS: ACIDOPHILUS/BULGARICUS 1 EACH TAB.CHEW GT SCH ×2 (08:40→17:24)
[2018-09-24] MEDS: METOCLOPRAMIDE HCL 10 MG/10 ML UDC GT SCH ×2 (08:40→21:34)
[2018-09-24] MEDS: POLYVINYL ALCOHOL 15 ML BOTTLE EACHEYE SCH ×2 (08:40→21:00)
[2018-09-24] MEDS: ACETAMINOPHEN 650 MG/20 ML UDC- SA PATIENTS-PAIN ONLY GT SCH ×2 (08:41→21:00)
[2018-09-24] MEDS: HEPARIN SODIUM, PORCINE 5000 UNITS/1 ML VIAL SQ SCH ×2 (08:41→21:37)
[2018-09-24 08:43] LABS: MAGNESIUM 1.9 mg/dL (1.8-2.4); PHOSPHORUS 1.7 mg/dL (2.5-4.9)
[2018-09-24] MEDS: INSULIN GLARGINE, 100 UNIT/ML CARTRIDGE SQ SCH ×2 (08:51→22:31)
[2018-09-24] MEDS: hydrALAZINE HCL 25 MG TABLET GT SCH (08:58)
[2018-09-24] MEDS: METOPROLOL TARTRATE 50 MG TABLET GT SCH ×2 (08:58→21:35)
[2018-09-24] MEDS: HYDROGEL DRESSING 90 GM TUBE TP SCH ×2 (09:15→21:00)
[2018-09-24] MEDS: TRIAMCINOLONE ACETONIDE 0.1% CR 15 GM TUBE TP SCH ×2 (09:15→21:00)
[2018-09-24] MEDS: NYSTATIN CREAM 15 GM TUBE TP SCH ×2 (09:15→21:00)
[2018-09-24] MEDS: Z GUARD REMEDY 4 OZ OINT TP SCH ×2 (09:15→21:00)
[2018-09-24] MEDS: HYDROGEN PEROXIDE 480 ML BOTTLE TP SCH ×2 (09:15→21:00)
[2018-09-24] MEDS: NEXIUM 40 MG VIAL IV SCH ×2 (09:55→21:35)
--- NOTE | 2018-09-24 10:41 | NUR ---
Pt noted with more edema while on TPN. Called Dr Castro's office and spoke with Kyung. She will page Dr Castro.
--- NOTE | 2018-09-24 11:34 | NUR ---
Spoke with Dr Wall. Informed him that pt is getting more swollen while on TPN. He said he will talk with the dialysis center and order to pull out more fluids.
[2018-09-24] MEDS: POTASSIUM PHOSPHATE MM 7.5 MMOL in IV D5W 100 ML IV SCH ×2 (12:00→15:42)
[2018-09-24] MEDS ORDERED: TPN BAG #12 IV PRN ×7 (12:00)
[2018-09-24 12:08] VITALS: BP 130/74
[2018-09-24 18:19] VITALS: BP 145/74
[2018-09-24 19:45] VITALS: BP 129/65
[2018-09-25] VITALS (7 sets, daily range): BP systolic 99–150; BP diastolic 59–76
[2018-09-25] MEDS: BLOOD SUGAR DIAGNOSTIC 1 EACH STRIP IN SCH ×4 (00:54→17:46)
[2018-09-25] MEDS: INSULIN REGULAR, HUMAN 100 UNIT/ML 3 ML VIAL SQ PRN ×3 (00:59→17:47)
[2018-09-25] MEDS: IPRATROPIUM NEB FS 0.5 MG/2.5 ML AMPUL.NEB NEB SCH ×4 (01:12→19:49)
[2018-09-25] MEDS: ALBUTEROL FS 2.5 MG/3 ML VIAL.NEB NEB SCH ×4 (01:12→19:49)
[2018-09-25] MEDS: MEROPENEM 500 MG in IV NS 0.9% 50 ML IV SCH (04:00)
[2018-09-25] MEDS: MAG HYDROX/AL HYDROX/SIMETH 30 ML UDC TP SCH ×4 (05:54→23:00)
[2018-09-25 07:41] LABS: CALCIUM, SERUM 9.1 mg/dL (8.5-10.1); MAGNESIUM 1.9 mg/dL (1.8-2.4); PHOSPHORUS 2.2 mg/dL (2.5-4.9); POTASSIUM 3.5 mmol/L (3.5-5.1)
[2018-09-25] MEDS: METOCLOPRAMIDE HCL 10 MG/10 ML UDC GT SCH ×2 (08:31→20:55)
[2018-09-25] MEDS: POLYVINYL ALCOHOL 15 ML BOTTLE EACHEYE SCH ×2 (08:31→21:23)
[2018-09-25] MEDS: SEVELAMER CARBONATE 0.8 GM POWD.PACK GT SCH ×2 (08:31→17:45)
[2018-09-25] MEDS: VIT B CMPLX 3/FA/VIT C/BIOTIN 1 TAB TABLET GT SCH (08:31)
[2018-09-25] MEDS: ACIDOPHILUS/BULGARICUS 1 EACH TAB.CHEW GT SCH ×2 (08:31→17:45)
[2018-09-25] MEDS: HEPARIN SODIUM, PORCINE 5000 UNITS/1 ML VIAL SQ SCH ×2 (08:32→20:56)
[2018-09-25] MEDS: ACETAMINOPHEN 650 MG/20 ML UDC- SA PATIENTS-PAIN ONLY GT SCH ×2 (08:32→20:56)
[2018-09-25] MEDS: ASCORBIC ACID 500 MG TABLET GT SCH (08:32)
--- NOTE | 2018-09-25 08:40 | NUR ---
RT NOTE PATIENT REC'D TRACHED ON MECHANICAL VENT WITH NOTED SETTINGS PER MD ORDERS. TRACH IS PATENT AND SECURED. LOAD OUT SUPERVISOR DONE. SX DONE PRN. VENT PLUGGED INTO RED OUTLET. ALARMS ON AND AUDIBLE. NACHO PAN @ BEDSIDE. NO RESP DISTRESS AT THIS TIME. WILL CONT TO MONITOR. Addendum: 09/25/18 at 0840 by LONA PAGAN RT Amended: Links added.
[2018-09-25] MEDS: NEXIUM 40 MG VIAL IV SCH ×2 (09:30→20:56)
[2018-09-25] MEDS: INSULIN GLARGINE, 100 UNIT/ML CARTRIDGE SQ SCH ×2 (09:42→21:42)
[2018-09-25] MEDS: Z GUARD REMEDY 4 OZ OINT TP SCH ×2 (09:57→20:57)
[2018-09-25] MEDS: HYDROGEN PEROXIDE 480 ML BOTTLE TP SCH ×2 (09:57→20:57)
[2018-09-25] MEDS: NYSTATIN CREAM 15 GM TUBE TP SCH ×2 (09:57→20:57)
[2018-09-25] MEDS: HYDROGEL DRESSING 90 GM TUBE TP SCH ×2 (09:57→20:56)
[2018-09-25] MEDS: TRIAMCINOLONE ACETONIDE 0.1% CR 15 GM TUBE TP SCH ×2 (09:57→20:56)
--- NOTE | 2018-09-25 10:34 | NUR ---
@ 1020 am Resident picked up by [facility] crew with 2 EMT's and 1 RT for hemodialysis treatment, via gurney. RFA AV shunt intact, no bleeding noted. + for thrill and bruit. Afebrile. Resident left the building in stable condition.
--- NOTE | 2018-09-25 14:50 | NUR ---
Resident returned from hemodialysis treatment, no s/s of any complications noted. Afebrile. RFA AV shunt intact, no active bleeding noted. Covered with dressing, clean and dry. + for thrill and bruit. Trach intact at midline, airway patent, connceted to vent with prescribed settings. No respiratory distress noted. Kept comfortable in bed.
[2018-09-25] MEDS ORDERED: TPN BAG #12 IV PRN ×8 (15:12)
[2018-09-25] MEDS ORDERED: TPN BAG #13 IV PRN ×7 (15:15)
[2018-09-25] MEDS: FAT EMULSION 20% 500 ML in PREMIX 1 EA IV SCH (15:40)
[2018-09-25] MEDS ORDERED: POTASSIUM PHOSPHATE MM 7.5 MMOL in IV D5W 100 ML IV SCH (16:00)
[2018-09-25] MEDS: METOPROLOL TARTRATE 50 MG TABLET GT SCH (21:41)
[2018-09-26] VITALS: BP 130/58
[2018-09-26] MEDS: BLOOD SUGAR DIAGNOSTIC 1 EACH STRIP IN SCH ×4 (00:16→18:13)
[2018-09-26] MEDS: INSULIN REGULAR, HUMAN 100 UNIT/ML 3 ML VIAL SQ PRN ×4 (00:17→18:14)
[2018-09-26] MEDS: ALBUTEROL FS 2.5 MG/3 ML VIAL.NEB NEB SCH ×4 (01:15→19:52)
[2018-09-26] MEDS: IPRATROPIUM NEB FS 0.5 MG/2.5 ML AMPUL.NEB NEB SCH ×4 (01:15→19:52)
[2018-09-26] MEDS: MAG HYDROX/AL HYDROX/SIMETH 30 ML UDC TP SCH ×4 (05:00→23:00)
[2018-09-26 06:00] VITALS: BP 149/72
[2018-09-26 07:29] LABS: CALCIUM, SERUM 8.9 mg/dL (8.5-10.1); CREATININE 2.3 mg/dL (0.6-1.3); POTASSIUM 3.4 mmol/L (3.5-5.1)
[2018-09-26 07:41] VITALS: BP 101/67
[2018-09-26] MEDS: ACETAMINOPHEN 650 MG/20 ML UDC- SA PATIENTS-PAIN ONLY GT SCH ×2 (08:54→20:28)
[2018-09-26] MEDS: SEVELAMER CARBONATE 0.8 GM POWD.PACK GT SCH ×2 (08:54→17:13)
[2018-09-26] MEDS: VIT B CMPLX 3/FA/VIT C/BIOTIN 1 TAB TABLET GT SCH (08:54)
[2018-09-26] MEDS: POLYVINYL ALCOHOL 15 ML BOTTLE EACHEYE SCH ×2 (08:54→20:26)
[2018-09-26] MEDS: ACIDOPHILUS/BULGARICUS 1 EACH TAB.CHEW GT SCH ×2 (08:54→17:13)
[2018-09-26] MEDS: ASCORBIC ACID 500 MG TABLET GT SCH (08:54)
[2018-09-26] MEDS: METOCLOPRAMIDE HCL 10 MG/10 ML UDC GT SCH ×2 (08:54→20:26)
[2018-09-26] MEDS: HEPARIN SODIUM, PORCINE 5000 UNITS/1 ML VIAL SQ SCH ×2 (08:55→20:29)
[2018-09-26] MEDS: hydrALAZINE HCL 25 MG TABLET GT SCH (09:00)
[2018-09-26] MEDS: METOPROLOL TARTRATE 50 MG TABLET GT SCH ×2 (09:00→21:33)
[2018-09-26] MEDS: INSULIN GLARGINE, 100 UNIT/ML CARTRIDGE SQ SCH ×2 (09:00→21:35)
[2018-09-26] MEDS: NEXIUM 40 MG VIAL IV SCH ×2 (09:00→21:00)
[2018-09-26] MEDS: HYDROGEL DRESSING 90 GM TUBE TP SCH ×2 (09:30→20:30)
[2018-09-26] MEDS: Z GUARD REMEDY 4 OZ OINT TP SCH ×2 (09:30→20:30)
[2018-09-26] MEDS ORDERED: TPN BAG #13 IV PRN ×7 (09:30)
[2018-09-26] MEDS: NYSTATIN CREAM 15 GM TUBE TP SCH ×2 (09:30→20:30)
[2018-09-26] MEDS: HYDROGEN PEROXIDE 480 ML BOTTLE TP SCH ×2 (09:30→20:30)
[2018-09-26] MEDS ORDERED: TPN BAG #14 IV PRN ×5 (09:30)
[2018-09-26] MEDS: TRIAMCINOLONE ACETONIDE 0.1% CR 15 GM TUBE TP SCH ×2 (09:30→20:30)
[2018-09-26 10:20] LABS: MAGNESIUM 1.8 mg/dL (1.8-2.4)
[2018-09-26 10:34] LABS: PHOSPHORUS 1.8 mg/dL (2.5-4.9)
[2018-09-26] MEDS: POTASSIUM PHOSPHATE MM 7.5 MMOL in IV D5W 100 ML IV SCH ×2 (11:00→14:00)
[2018-09-26 12:33] VITALS: BP 151/76
--- NOTE | 2018-09-26 17:30 | NUR ---
Contacted the office of Dr. Castro spoke with nurse receptionist Amadou. Left message to construction project administrator Dr. Wall regarding low phosphorus level and pt. on Renvela. Pharmacist Landy said that Renvela lowers phosphorus. Waiting for call back.
[2018-09-26 18:27] VITALS: BP 140/78
[2018-09-26 20:12] VITALS: BP 151/93
[2018-09-27] MEDS: BLOOD SUGAR DIAGNOSTIC 1 EACH STRIP IN SCH ×4 (00:26→18:21)
[2018-09-27] MEDS: INSULIN REGULAR, HUMAN 100 UNIT/ML 3 ML VIAL SQ PRN ×4 (00:28→18:22)
[2018-09-27 00:44] VITALS: BP 152/67
[2018-09-27] MEDS: IPRATROPIUM NEB FS 0.5 MG/2.5 ML AMPUL.NEB NEB SCH ×4 (01:33→19:30)
[2018-09-27] MEDS: ALBUTEROL FS 2.5 MG/3 ML VIAL.NEB NEB SCH ×4 (01:33→19:30)
[2018-09-27] MEDS: MAG HYDROX/AL HYDROX/SIMETH 30 ML UDC TP SCH ×4 (05:21→23:00)
[2018-09-27 06:10] VITALS: BP 153/95
--- NOTE | 2018-09-27 06:57 | NUR ---
RT PATIENT REC'D TRACHED ON [facility] VENT WITH ORDERED SETTINGS CESARIO WELL. VENT ALARMS CHECKED + AUDIBLE. CUFF PRESSURE CHECKED GAMING DEALER. TRACH SECURE + IN PROPER POSITION. PATIENT NON RESPONSIVE TO VERBAL COMMANDS, NO SOB NOTED. B/S DIM COARSE. PATIENT SUCTIONED WITH MOD AMT OF PALE SEMI-THICK SECRETIONS. AMBU BAG AND BACK UP TRACH AT HOB. CONT CURRENT PLAN OF RESP CARE. Addendum: 09/27/18 at 0824 by EDMUND NOONAN RT Amended: Links added.
[2018-09-27 07:39] VITALS: BP 160/99
[2018-09-27 08:03] LABS: CALCIUM, SERUM 8.9 mg/dL (8.5-10.1); CREATININE 2.8 mg/dL (0.6-1.3); MAGNESIUM 1.8 mg/dL (1.8-2.4); PHOSPHORUS 3.1 mg/dL (2.5-4.9)
[2018-09-27] MEDS: POLYVINYL ALCOHOL 15 ML BOTTLE EACHEYE SCH ×2 (09:03→20:03)
[2018-09-27] MEDS: METOPROLOL TARTRATE 50 MG TABLET GT SCH ×2 (09:04→21:43)
[2018-09-27] MEDS: ACIDOPHILUS/BULGARICUS 1 EACH TAB.CHEW GT SCH ×2 (09:04→17:15)
[2018-09-27] MEDS: hydrALAZINE HCL 25 MG TABLET GT SCH (09:04)
[2018-09-27] MEDS: METOCLOPRAMIDE HCL 10 MG/10 ML UDC GT SCH ×2 (09:04→20:03)
[2018-09-27] MEDS: SEVELAMER CARBONATE 0.8 GM POWD.PACK GT SCH ×2 (09:04→17:15)
[2018-09-27] MEDS: VIT B CMPLX 3/FA/VIT C/BIOTIN 1 TAB TABLET GT SCH (09:04)
[2018-09-27] MEDS: ASCORBIC ACID 500 MG TABLET GT SCH (09:05)
[2018-09-27] MEDS: ACETAMINOPHEN 650 MG/20 ML UDC- SA PATIENTS-PAIN ONLY GT SCH ×2 (09:05→20:04)
[2018-09-27] MEDS: HEPARIN SODIUM, PORCINE 5000 UNITS/1 ML VIAL SQ SCH ×2 (09:05→20:04)
[2018-09-27] MEDS: INSULIN GLARGINE, 100 UNIT/ML CARTRIDGE SQ SCH ×2 (09:06→21:45)
[2018-09-27] MEDS: NEXIUM 40 MG VIAL IV SCH ×2 (09:15→21:00)
[2018-09-27] MEDS: NYSTATIN CREAM 15 GM TUBE TP SCH ×2 (09:40→20:05)
[2018-09-27] MEDS: TRIAMCINOLONE ACETONIDE 0.1% CR 15 GM TUBE TP SCH ×2 (09:40→20:04)
[2018-09-27] MEDS: Z GUARD REMEDY 4 OZ OINT TP SCH ×2 (09:40→20:05)
[2018-09-27] MEDS: HYDROGEN PEROXIDE 480 ML BOTTLE TP SCH ×2 (09:40→20:05)
[2018-09-27] MEDS: HYDROGEL DRESSING 90 GM TUBE TP SCH ×2 (09:40→20:05)
[2018-09-27] MEDS ORDERED: TPN BAG #15 IV PRN ×7 (11:30)
[2018-09-27 12:00] VITALS: BP 157/74
[2018-09-27] MEDS: FAT EMULSION 20% 500 ML in PREMIX 1 EA IV SCH (13:56)
[2018-09-27 19:01] VITALS: BP 158/86
[2018-09-27 20:23] VITALS: BP 152/78
[2018-09-28] MEDS: BLOOD SUGAR DIAGNOSTIC 1 EACH STRIP IN SCH ×5 (00:15→23:55)
[2018-09-28] MEDS: INSULIN REGULAR, HUMAN 100 UNIT/ML 3 ML VIAL SQ PRN ×3 (00:16→23:58)
[2018-09-28 00:19] VITALS: BP 125/75
[2018-09-28] MEDS: ALBUTEROL FS 2.5 MG/3 ML VIAL.NEB NEB SCH ×4 (01:47→19:33)
[2018-09-28] MEDS: IPRATROPIUM NEB FS 0.5 MG/2.5 ML AMPUL.NEB NEB SCH ×4 (01:47→19:33)
[2018-09-28] MEDS: MAG HYDROX/AL HYDROX/SIMETH 30 ML UDC TP SCH ×4 (05:12→22:51)
[2018-09-28 06:05] VITALS: BP 153/79
[2018-09-28 07:11] LABS: CALCIUM, SERUM 8.4 mg/dL (8.5-10.1); CREATININE 3.3 mg/dL (0.6-1.3); MAGNESIUM 1.7 mg/dL (1.8-2.4); POTASSIUM 4.4 mmol/L (3.5-5.1)
[2018-09-28] MEDS: POLYVINYL ALCOHOL 15 ML BOTTLE EACHEYE SCH ×2 (08:32→20:41)
[2018-09-28] MEDS: ACIDOPHILUS/BULGARICUS 1 EACH TAB.CHEW GT SCH ×2 (08:32→17:00)
[2018-09-28] MEDS: METOCLOPRAMIDE HCL 10 MG/10 ML UDC GT SCH ×2 (08:34→20:44)
[2018-09-28] MEDS: SEVELAMER CARBONATE 0.8 GM POWD.PACK GT SCH ×2 (08:34→17:00)
[2018-09-28] MEDS: ASCORBIC ACID 500 MG TABLET GT SCH (08:35)
[2018-09-28] MEDS: HEPARIN SODIUM, PORCINE 5000 UNITS/1 ML VIAL SQ SCH ×2 (08:39→20:53)
[2018-09-28 08:42] VITALS: BP 105/69
[2018-09-28] MEDS: INSULIN GLARGINE, 100 UNIT/ML CARTRIDGE SQ SCH ×2 (08:46→21:19)
[2018-09-28] MEDS: VIT B CMPLX 3/FA/VIT C/BIOTIN 1 TAB TABLET GT SCH (08:54)
[2018-09-28] MEDS: ACETAMINOPHEN 650 MG/20 ML UDC- SA PATIENTS-PAIN ONLY GT SCH ×2 (08:58→20:44)
[2018-09-28] MEDS: HYDROGEL DRESSING 90 GM TUBE TP SCH ×2 (09:00→20:53)
[2018-09-28] MEDS: NYSTATIN CREAM 15 GM TUBE TP SCH ×2 (09:00→20:53)
[2018-09-28] MEDS: NEXIUM 40 MG VIAL IV SCH ×2 (09:00→21:07)
[2018-09-28] MEDS: HYDROGEN PEROXIDE 480 ML BOTTLE TP SCH ×2 (09:00→20:53)
[2018-09-28] MEDS: TRIAMCINOLONE ACETONIDE 0.1% CR 15 GM TUBE TP SCH ×2 (09:00→20:53)
[2018-09-28] MEDS: Z GUARD REMEDY 4 OZ OINT TP SCH ×2 (09:00→20:53)
--- NOTE | 2018-09-28 10:15 | NUR ---
Resident was picked up by [facility] for Dialysis at [facility] per sats accompanied by 2 EMT's and 1 RT. TPN tapered down x 2 hours before transport. Trach secured and midline, on mechanical vent, tolerating well. No s/s of resp. distress. AV shunt on right forearm intact, no bleeding noted, positive for Thrill and Bruit. GT intact and patent. All emergency equipment taken. Resident awake, stable vital signs.
[2018-09-28] MEDS ORDERED: TPN BAG #17 IV PRN ×7 (12:00)
[2018-09-28] MEDS ORDERED: TPN BAG #16 IV PRN ×5 (12:00)
--- NOTE | 2018-09-28 15:15 | NUR ---
Resident came back from Dialysis transported by [facility] per [facility]. Awake, no s/sx of resp. distress. Trach secured and midline, on mech. vent. With pressure dressing on right forearm AV shunt, dry and intact. No bleeding noted. Thrill and bruit positive. Placed to bed and made comfortable. Stable vital signs. TPN and lipid resumed. Will continue to monitor.
[2018-09-28 18:00] VITALS: BP 112/72
[2018-09-28 20:06] VITALS: BP 106/74
[2018-09-28] MEDS: METOPROLOL TARTRATE 50 MG TABLET GT SCH (21:06)
[2018-09-28 22:22] VITALS: BP 106/74
[2018-09-29] VITALS: BP 140/74
[2018-09-29] MEDS: INSULIN REGULAR, HUMAN 100 UNIT/ML 3 ML VIAL SQ PRN ×4 (00:56→17:50)
[2018-09-29] MEDS: IPRATROPIUM NEB FS 0.5 MG/2.5 ML AMPUL.NEB NEB SCH ×4 (01:13→19:48)
[2018-09-29] MEDS: ALBUTEROL FS 2.5 MG/3 ML VIAL.NEB NEB SCH ×4 (01:13→19:48)
[2018-09-29] MEDS: MAG HYDROX/AL HYDROX/SIMETH 30 ML UDC TP SCH ×4 (05:00→23:00)
[2018-09-29 06:00] VITALS: BP 122/76
[2018-09-29] MEDS: BLOOD SUGAR DIAGNOSTIC 1 EACH STRIP IN SCH ×3 (06:10→17:29)
[2018-09-29 07:30] VITALS: BP 121/87
[2018-09-29 07:56] LABS: CALCIUM, SERUM 8.1 mg/dL (8.5-10.1); CREATININE 2.5 mg/dL (0.6-1.3); MAGNESIUM 1.8 mg/dL (1.8-2.4); PHOSPHORUS 2.4 mg/dL (2.5-4.9); POTASSIUM 4.2 mmol/L (3.5-5.1)
[2018-09-29] MEDS: hydrALAZINE HCL 25 MG TABLET GT SCH (09:00)
[2018-09-29] MEDS: NEXIUM 40 MG VIAL IV SCH ×2 (09:00→21:00)
[2018-09-29] MEDS: INSULIN GLARGINE, 100 UNIT/ML CARTRIDGE SQ SCH ×2 (09:00→21:48)
[2018-09-29] MEDS: ACIDOPHILUS/BULGARICUS 1 EACH TAB.CHEW GT SCH ×2 (09:57→17:29)
[2018-09-29] MEDS: METOPROLOL TARTRATE 50 MG TABLET GT SCH ×2 (09:57→22:26)
[2018-09-29] MEDS: POLYVINYL ALCOHOL 15 ML BOTTLE EACHEYE SCH ×2 (09:57→21:40)
[2018-09-29] MEDS: ASCORBIC ACID 500 MG TABLET GT SCH (09:58)
[2018-09-29] MEDS: VIT B CMPLX 3/FA/VIT C/BIOTIN 1 TAB TABLET GT SCH (09:58)
[2018-09-29] MEDS: ACETAMINOPHEN 650 MG/20 ML UDC- SA PATIENTS-PAIN ONLY GT SCH ×2 (09:58→21:40)
[2018-09-29] MEDS: SEVELAMER CARBONATE 0.8 GM POWD.PACK GT SCH ×2 (09:58→17:29)
[2018-09-29] MEDS: METOCLOPRAMIDE HCL 10 MG/10 ML UDC GT SCH ×2 (09:58→21:40)
[2018-09-29] MEDS: HEPARIN SODIUM, PORCINE 5000 UNITS/1 ML VIAL SQ SCH ×2 (10:04→21:44)
[2018-09-29] MEDS: HYDROGEL DRESSING 90 GM TUBE TP SCH ×2 (10:58→22:00)
[2018-09-29] MEDS: Z GUARD REMEDY 4 OZ OINT TP SCH ×2 (10:58→22:00)
[2018-09-29] MEDS: NYSTATIN CREAM 15 GM TUBE TP SCH ×2 (10:58→22:00)
[2018-09-29] MEDS: HYDROGEN PEROXIDE 480 ML BOTTLE TP SCH ×2 (10:58→22:00)
[2018-09-29] MEDS: TRIAMCINOLONE ACETONIDE 0.1% CR 15 GM TUBE TP SCH ×2 (10:58→22:00)
[2018-09-29 12:00] VITALS: BP 121/74
[2018-09-29] MEDS ORDERED: TPN BAG #18 IV PRN ×5 (12:30)
--- NOTE | 2018-09-29 15:00 | NUR ---
Notified Dr. Batista and SPECIAL INSPECTOR Debby Redman, knitter mechanic that patient's GT looks better. Patient currently on TPN and lipid, Tissue around the GT is non tender and closing in. No leaking, no redness present around the GT stoma. Asked when GT replacement will take place, per Debby, it will be replaced on Thursday and will give orders later on today. Endorsed.
[2018-09-29] MEDS: FAT EMULSION 20% 500 ML in PREMIX 1 EA IV SCH (15:20)
[2018-09-29 18:30] VITALS: BP 130/70
--- NOTE | 2018-09-29 19:48 | NUR ---
RT NOTE PATIENT RECEIVED TRACH'D ON MECHANICAL VENT. PATIENT IS TOLERATING CURRENT ORDERED VENT SETTINGS. NO RESPIRATORY DISTRESS NOTED. TRACH IS PATENT AND SECURE. ALARMS ARE SET AND AUDIBLE. MECHANICAL VENT IS PLUGGED INTO RED OUTLET. EMERGENCY EQUIPMENT IS AT PATIENT BEDSIDE. WILL CONTINUE TO MONITOR. Addendum: 09/29/18 at 2038 by KRYSTLE MASTERSON RT Amended: Links added.
[2018-09-29 20:33] VITALS: BP 145/69
[2018-09-30 00:20] VITALS: BP_SYST 111; BP_SYST 144; BP_DIAS 62; BP_DIAS 99
[2018-09-30] MEDS: BLOOD SUGAR DIAGNOSTIC 1 EACH STRIP IN SCH ×5 (00:46→23:44)
[2018-09-30] MEDS: INSULIN REGULAR, HUMAN 100 UNIT/ML 3 ML VIAL SQ PRN ×3 (00:48→23:45)
[2018-09-30] MEDS: ALBUTEROL FS 2.5 MG/3 ML VIAL.NEB NEB SCH ×4 (01:39→19:52)
[2018-09-30] MEDS: IPRATROPIUM NEB FS 0.5 MG/2.5 ML AMPUL.NEB NEB SCH ×4 (01:39→19:52)
[2018-09-30] MEDS: MAG HYDROX/AL HYDROX/SIMETH 30 ML UDC TP SCH ×4 (05:50→23:44)
[2018-09-30 06:40] VITALS: BP 147/96
[2018-09-30 07:31] VITALS: BP 115/74
[2018-09-30 07:51] LABS: CALCIUM, SERUM 8.4 mg/dL (8.5-10.1); CREATININE 3.1 mg/dL (0.6-1.3); MAGNESIUM 1.8 mg/dL (1.8-2.4); PHOSPHORUS 2.6 mg/dL (2.5-4.9); POTASSIUM 3.7 mmol/L (3.5-5.1)
[2018-09-30] MEDS: NEXIUM 40 MG VIAL IV SCH ×2 (09:00→21:00)
[2018-09-30] MEDS: ACETAMINOPHEN 650 MG/20 ML UDC- SA PATIENTS-PAIN ONLY GT SCH ×4 (09:46→21:08)
[2018-09-30] MEDS: ASCORBIC ACID 500 MG TABLET GT SCH (09:46)
[2018-09-30] MEDS: VIT B CMPLX 3/FA/VIT C/BIOTIN 1 TAB TABLET GT SCH (09:46)
[2018-09-30] MEDS: POLYVINYL ALCOHOL 15 ML BOTTLE EACHEYE SCH ×2 (09:46→21:07)
[2018-09-30] MEDS: ACIDOPHILUS/BULGARICUS 1 EACH TAB.CHEW GT SCH ×2 (09:46→17:58)
[2018-09-30] MEDS: SEVELAMER CARBONATE 0.8 GM POWD.PACK GT SCH ×2 (09:46→17:58)
[2018-09-30] MEDS: METOCLOPRAMIDE HCL 10 MG/10 ML UDC GT SCH ×2 (09:46→21:07)
[2018-09-30] MEDS: HEPARIN SODIUM, PORCINE 5000 UNITS/1 ML VIAL SQ SCH ×2 (09:48→21:09)
[2018-09-30] MEDS: INSULIN GLARGINE, 100 UNIT/ML CARTRIDGE SQ SCH ×2 (09:51→21:16)
[2018-09-30] MEDS: NYSTATIN CREAM 15 GM TUBE TP SCH ×2 (10:20→21:48)
[2018-09-30] MEDS: Z GUARD REMEDY 4 OZ OINT TP SCH ×2 (10:20→21:48)
[2018-09-30] MEDS: TRIAMCINOLONE ACETONIDE 0.1% CR 15 GM TUBE TP SCH ×2 (10:20→21:48)
[2018-09-30] MEDS: HYDROGEL DRESSING 90 GM TUBE TP SCH ×2 (10:20→21:48)
[2018-09-30] MEDS: HYDROGEN PEROXIDE 480 ML BOTTLE TP SCH ×2 (10:20→21:48)
--- NOTE | 2018-09-30 11:48 | NUR ---
RT NOTE PATIENT RECEIVED TRACH'D ON MECHANICAL VENT. PATIENT IS TOLERATING CURRENT ORDERED VENT SETTINGS. NO RESPIRATORY DISTRESS NOTED. TRACH IS PATENT AND SECURE. ALARMS ARE SET AND AUDIBLE. MECHANICAL VENT IS PLUGGED INTO RED OUTLET. EMERGENCY EQUIPMENT IS AT PATIENT BEDSIDE. WILL CONTINUE TO MONITOR.
[2018-09-30] MEDS ORDERED: TPN BAG #19 IV PRN ×7 (15:00)
[2018-09-30 15:15] VITALS: BP 117/47
--- NOTE | 2018-09-30 16:00 | NUR ---
Asked AIR EXPORT OPERATIONS AGENT Debby Redman if pt will have EGD tomorrow. She said Dr Ames will do EGD next week. Photographic Developer And Printer Vonnie recommending to give Prostat via GT TID. Left message for THOMAS Guardado.
[2018-09-30 18:00] VITALS: BP 155/73
[2018-09-30 20:01] VITALS: BP 130/58
[2018-09-30] MEDS: METOPROLOL TARTRATE 50 MG TABLET GT SCH (21:49)
[2018-10-01 00:20] VITALS: BP 118/67
[2018-10-01] MEDS: ALBUTEROL FS 2.5 MG/3 ML VIAL.NEB NEB SCH ×4 (01:42→19:48)
[2018-10-01] MEDS: IPRATROPIUM NEB FS 0.5 MG/2.5 ML AMPUL.NEB NEB SCH ×4 (01:42→19:48)
[2018-10-01] MEDS: MAG HYDROX/AL HYDROX/SIMETH 30 ML UDC TP SCH ×4 (05:30→22:48)
[2018-10-01] MEDS: BLOOD SUGAR DIAGNOSTIC 1 EACH STRIP IN SCH ×4 (05:31→23:38)
[2018-10-01] MEDS: INSULIN REGULAR, HUMAN 100 UNIT/ML 3 ML VIAL SQ PRN ×4 (05:33→23:39)
[2018-10-01 06:20] VITALS: BP 122/71
[2018-10-01 07:49] LABS: CALCIUM, SERUM 8.6 mg/dL (8.5-10.1); CREATININE 2.5 mg/dL (0.6-1.3); MAGNESIUM 1.6 mg/dL (1.8-2.4); PHOSPHORUS 2.1 mg/dL (2.5-4.9); POTASSIUM 3.5 mmol/L (3.5-5.1)
[2018-10-01 08:05] VITALS: BP 128/56
[2018-10-01] MEDS: hydrALAZINE HCL 25 MG TABLET GT SCH (09:00)
[2018-10-01] MEDS: POLYVINYL ALCOHOL 15 ML BOTTLE EACHEYE SCH ×2 (09:08→21:43)
[2018-10-01] MEDS: ACIDOPHILUS/BULGARICUS 1 EACH TAB.CHEW GT SCH ×2 (09:09→17:45)
[2018-10-01] MEDS: VIT B CMPLX 3/FA/VIT C/BIOTIN 1 TAB TABLET GT SCH (09:09)
[2018-10-01] MEDS: METOPROLOL TARTRATE 50 MG TABLET GT SCH ×2 (09:09→21:53)
[2018-10-01] MEDS: METOCLOPRAMIDE HCL 10 MG/10 ML UDC GT SCH ×2 (09:09→21:43)
[2018-10-01] MEDS: SEVELAMER CARBONATE 0.8 GM POWD.PACK GT SCH ×2 (09:09→17:45)
[2018-10-01] MEDS: ASCORBIC ACID 500 MG TABLET GT SCH (09:10)
[2018-10-01] MEDS: ACETAMINOPHEN 650 MG/20 ML UDC- SA PATIENTS-PAIN ONLY GT SCH ×2 (09:10→21:45)
[2018-10-01] MEDS: INSULIN GLARGINE, 100 UNIT/ML CARTRIDGE SQ SCH ×2 (09:11→21:58)
[2018-10-01] MEDS: HEPARIN SODIUM, PORCINE 5000 UNITS/1 ML VIAL SQ SCH ×2 (09:11→21:51)
[2018-10-01] MEDS: NEXIUM 40 MG VIAL IV SCH ×2 (09:26→21:12)
[2018-10-01] MEDS: Z GUARD REMEDY 4 OZ OINT TP SCH ×2 (09:50→21:52)
[2018-10-01] MEDS: HYDROGEN PEROXIDE 480 ML BOTTLE TP SCH ×2 (09:50→21:52)
[2018-10-01] MEDS: HYDROGEL DRESSING 90 GM TUBE TP SCH ×2 (09:50→21:52)
[2018-10-01] MEDS: NYSTATIN CREAM 15 GM TUBE TP SCH ×2 (09:50→21:52)
[2018-10-01] MEDS: TRIAMCINOLONE ACETONIDE 0.1% CR 15 GM TUBE TP SCH ×2 (09:50→21:51)
[2018-10-01 12:00] VITALS: BP 139/73
[2018-10-01] MEDS ORDERED: TPN BAG #20 IV PRN ×5 (13:00)
[2018-10-01] MEDS: PROSTAT (PYXIS) 30 ML UDC GT SCH ×2 (13:13→17:45)
[2018-10-01] MEDS: FAT EMULSION 20% 500 ML in PREMIX 1 EA IV SCH (14:50)
--- NOTE | 2018-10-01 16:40 | NUR ---
JEWELRY SALES COORDINATOR eDbby Redman seen resident, she said that will schedule GT replacement next week with Dr. Chacon, meanwhile patient continue on TPN.
[2018-10-01 18:00] VITALS: BP 123/76
[2018-10-01 20:11] VITALS: BP 134/51
--- NOTE | 2018-10-01 20:57 | NUR ---
RT PT RECEIVED TRACHED ON [facility] VENT ON CHARTED SETTINGS. NO DISTRESS NOTED. CARDIOLOGIST FOR CUFF DONE. TX GIVEN. PT SUCTIONED, SMALL THICK WHITE YELLOW SECRETIONS NOTED. ALARMS SET AND AUDIBLE. VENT CONNECTED TO RED OUTLET. WILL CONT TO MONITOR. Addendum: 10/01/18 at 2057 by KY GREEN RT Amended: Links added.
[2018-10-02 00:20] VITALS: BP 129/81
[2018-10-02] MEDS: IPRATROPIUM NEB FS 0.5 MG/2.5 ML AMPUL.NEB NEB SCH ×4 (01:44→19:17)
[2018-10-02] MEDS: ALBUTEROL FS 2.5 MG/3 ML VIAL.NEB NEB SCH ×4 (01:44→19:17)
[2018-10-02] MEDS: MAG HYDROX/AL HYDROX/SIMETH 30 ML UDC TP SCH ×4 (05:49→23:48)
[2018-10-02] MEDS: BLOOD SUGAR DIAGNOSTIC 1 EACH STRIP IN SCH ×4 (05:59→23:48)
[2018-10-02] MEDS: INSULIN REGULAR, HUMAN 100 UNIT/ML 3 ML VIAL SQ PRN ×2 (06:00→23:51)
[2018-10-02 06:16] VITALS: BP 148/75
[2018-10-02 08:00] VITALS: BP 146/74
[2018-10-02 08:36] LABS: CALCIUM, SERUM 8.5 mg/dL (8.5-10.1); MAGNESIUM 1.6 mg/dL (1.8-2.4); PHOSPHORUS 2.1 mg/dL (2.5-4.9); POTASSIUM 3.2 mmol/L (3.5-5.1)
[2018-10-02] MEDS: NEXIUM 40 MG VIAL IV SCH ×2 (09:00→21:33)
[2018-10-02] MEDS ORDERED: TPN BAG #21 IV PRN ×7 (09:30)
[2018-10-02] MEDS ORDERED: TPN BAG #22 IV PRN ×5 (09:30)
[2018-10-02] MEDS: POLYVINYL ALCOHOL 15 ML BOTTLE EACHEYE SCH ×2 (09:34→20:21)
[2018-10-02] MEDS: METOCLOPRAMIDE HCL 10 MG/10 ML UDC GT SCH ×2 (09:35→20:21)
[2018-10-02] MEDS: ACETAMINOPHEN 650 MG/20 ML UDC- SA PATIENTS-PAIN ONLY GT SCH ×2 (09:35→20:21)
[2018-10-02] MEDS: SEVELAMER CARBONATE 0.8 GM POWD.PACK GT SCH ×2 (09:35→17:56)
[2018-10-02] MEDS: ACIDOPHILUS/BULGARICUS 1 EACH TAB.CHEW GT SCH ×2 (09:35→17:55)
[2018-10-02] MEDS: PROSTAT (PYXIS) 30 ML UDC GT SCH ×3 (09:35→17:56)
[2018-10-02] MEDS: VIT B CMPLX 3/FA/VIT C/BIOTIN 1 TAB TABLET GT SCH (09:35)
[2018-10-02] MEDS: ASCORBIC ACID 500 MG TABLET GT SCH (09:35)
[2018-10-02] MEDS: HEPARIN SODIUM, PORCINE 5000 UNITS/1 ML VIAL SQ SCH ×2 (09:36→20:20)
[2018-10-02] MEDS: INSULIN GLARGINE, 100 UNIT/ML CARTRIDGE SQ SCH ×2 (09:37→22:00)
[2018-10-02] MEDS: HYDROGEL DRESSING 90 GM TUBE TP SCH ×2 (10:05→20:22)
[2018-10-02] MEDS: HYDROGEN PEROXIDE 480 ML BOTTLE TP SCH ×2 (10:05→20:22)
[2018-10-02] MEDS: Z GUARD REMEDY 4 OZ OINT TP SCH ×2 (10:05→20:22)
--- NOTE | 2018-10-02 11:00 | NUR ---
Resident left for dialysis in stable condition, dialysis access site in the R FA intact, no bleeding, + got bruit and trill. TPN tapered down prior to disconnecting patient from TPN due to outpatient dialysis. L upper arm midline intact and in place. Report given to dialysis nurse NED Acevedo to pull more fluid per Dr. Sung due to edema.
--- NOTE | 2018-10-02 14:30 | NUR ---
Resident came back from dialysis, awake in no s/s of distress and discomfort. Pressure dressing in the right FA, no bleeding, + for trill and bruit. TPN and lipid resumed.
[2018-10-02 15:15] VITALS: BP 132/60
[2018-10-02 18:00] VITALS: BP 156/73
[2018-10-02 19:54] VITALS: BP 92/51
[2018-10-02] MEDS: METOPROLOL TARTRATE 50 MG TABLET GT SCH (22:00)
[2018-10-03] VITALS: BP 91/61
[2018-10-03] MEDS: ALBUTEROL FS 2.5 MG/3 ML VIAL.NEB NEB SCH ×4 (01:26→20:13)
[2018-10-03] MEDS: IPRATROPIUM NEB FS 0.5 MG/2.5 ML AMPUL.NEB NEB SCH ×4 (01:26→20:13)
[2018-10-03] MEDS: MAG HYDROX/AL HYDROX/SIMETH 30 ML UDC TP SCH ×4 (05:30→23:00)
[2018-10-03] MEDS: BLOOD SUGAR DIAGNOSTIC 1 EACH STRIP IN SCH ×3 (05:30→18:26)
[2018-10-03 06:31] VITALS: BP 101/64
[2018-10-03 07:32] VITALS: BP 159/75
[2018-10-03 07:44] LABS: CALCIUM, SERUM 8.5 mg/dL (8.5-10.1); CREATININE 2.4 mg/dL (0.6-1.3); MAGNESIUM 1.6 mg/dL (1.8-2.4); PHOSPHORUS 1.9 mg/dL (2.5-4.9); POTASSIUM 3.2 mmol/L (3.5-5.1)
[2018-10-03] MEDS: hydrALAZINE HCL 25 MG TABLET GT SCH (08:55)
[2018-10-03] MEDS: ACIDOPHILUS/BULGARICUS 1 EACH TAB.CHEW GT SCH ×2 (08:56→17:15)
[2018-10-03] MEDS: PROSTAT (PYXIS) 30 ML UDC GT SCH ×3 (08:57→17:15)
[2018-10-03] MEDS: METOPROLOL TARTRATE 50 MG TABLET GT SCH ×2 (08:57→22:05)
[2018-10-03] MEDS: METOCLOPRAMIDE HCL 10 MG/10 ML UDC GT SCH ×2 (08:58→21:00)
[2018-10-03] MEDS: ASCORBIC ACID 500 MG TABLET GT SCH (08:59)
[2018-10-03] MEDS: SEVELAMER CARBONATE 0.8 GM POWD.PACK GT SCH ×2 (08:59→17:15)
[2018-10-03] MEDS: ACETAMINOPHEN 650 MG/20 ML UDC- SA PATIENTS-PAIN ONLY GT SCH ×2 (08:59→21:00)
[2018-10-03] MEDS: Z GUARD REMEDY 4 OZ OINT TP SCH ×2 (09:00→21:00)
[2018-10-03] MEDS: NEXIUM 40 MG VIAL IV SCH ×2 (09:00→21:00)
[2018-10-03] MEDS: HYDROGEN PEROXIDE 480 ML BOTTLE TP SCH ×2 (09:00→21:00)
[2018-10-03] MEDS: HYDROGEL DRESSING 90 GM TUBE TP SCH ×2 (09:00→21:00)
[2018-10-03] MEDS: HEPARIN SODIUM, PORCINE 5000 UNITS/1 ML VIAL SQ SCH ×2 (09:10→21:00)
[2018-10-03] MEDS: INSULIN GLARGINE, 100 UNIT/ML CARTRIDGE SQ SCH ×2 (09:14→22:34)
[2018-10-03] MEDS: VIT B CMPLX 3/FA/VIT C/BIOTIN 1 TAB TABLET GT SCH (09:23)
[2018-10-03] MEDS ORDERED: TPN BAG #22 IV PRN ×7 (09:23)
[2018-10-03] MEDS: POLYVINYL ALCOHOL 15 ML BOTTLE EACHEYE SCH ×2 (09:27→21:00)
[2018-10-03] MEDS ORDERED: TPN BAG #23 IV PRN ×18 (10:00)
--- NOTE | 2018-10-03 11:50 | NUR ---
GI DOCTOR (DR. Ames) came and saw patients' GT site, per MD GT looks good, size is smaller, no GT drainage noted, per MD he will replace GT on thursday. Patient still on TPN. Patient closely monitored.
[2018-10-03 12:00] VITALS: BP 148/79
[2018-10-03] MEDS: INSULIN REGULAR, HUMAN 100 UNIT/ML 3 ML VIAL SQ PRN ×2 (12:49→18:34)
[2018-10-03] MEDS: FAT EMULSION 20% 500 ML in PREMIX 1 EA IV SCH (14:00)
[2018-10-03 18:00] VITALS: BP 129/70
[2018-10-03 20:04] VITALS: BP 148/77
[2018-10-04] VITALS: BP 126/68
[2018-10-04] MEDS: BLOOD SUGAR DIAGNOSTIC 1 EACH STRIP IN SCH ×5 (00:44→23:29)
[2018-10-04] MEDS: INSULIN REGULAR, HUMAN 100 UNIT/ML 3 ML VIAL SQ PRN ×4 (00:45→17:42)
[2018-10-04] MEDS: ALBUTEROL FS 2.5 MG/3 ML VIAL.NEB NEB SCH ×4 (01:31→19:42)
[2018-10-04] MEDS: IPRATROPIUM NEB FS 0.5 MG/2.5 ML AMPUL.NEB NEB SCH ×4 (01:31→19:42)
[2018-10-04] MEDS: MAG HYDROX/AL HYDROX/SIMETH 30 ML UDC TP SCH ×4 (05:14→22:54)
[2018-10-04 06:00] VITALS: BP 140/66
[2018-10-04 07:26] LABS: CALCIUM, SERUM 8.5 mg/dL (8.5-10.1); CREATININE 2.8 mg/dL (0.6-1.3); MAGNESIUM 1.7 mg/dL (1.8-2.4); POTASSIUM 3.5 mmol/L (3.5-5.1)
[2018-10-04 07:35] VITALS: BP 152/74
[2018-10-04] MEDS: NEXIUM 40 MG VIAL IV SCH ×2 (09:00→21:00)
[2018-10-04] MEDS: HYDROGEN PEROXIDE 480 ML BOTTLE TP SCH ×2 (09:00→21:10)
[2018-10-04] MEDS: Z GUARD REMEDY 4 OZ OINT TP SCH ×2 (09:00→21:10)
[2018-10-04] MEDS: hydrALAZINE HCL 25 MG TABLET GT SCH (09:10)
[2018-10-04] MEDS: POLYVINYL ALCOHOL 15 ML BOTTLE EACHEYE SCH ×2 (09:10→21:08)
[2018-10-04] MEDS: ACIDOPHILUS/BULGARICUS 1 EACH TAB.CHEW GT SCH ×2 (09:10→17:04)
[2018-10-04] MEDS: METOPROLOL TARTRATE 50 MG TABLET GT SCH ×2 (09:11→21:10)
[2018-10-04] MEDS: PROSTAT (PYXIS) 30 ML UDC GT SCH ×3 (09:11→17:04)
[2018-10-04] MEDS: SEVELAMER CARBONATE 0.8 GM POWD.PACK GT SCH ×2 (09:13→17:04)
[2018-10-04] MEDS: ASCORBIC ACID 500 MG TABLET GT SCH (09:13)
[2018-10-04] MEDS: METOCLOPRAMIDE HCL 10 MG/10 ML UDC GT SCH ×2 (09:13→21:08)
[2018-10-04] MEDS: ACETAMINOPHEN 650 MG/20 ML UDC- SA PATIENTS-PAIN ONLY GT SCH ×2 (09:13→21:09)
[2018-10-04] MEDS: VIT B CMPLX 3/FA/VIT C/BIOTIN 1 TAB TABLET GT SCH (09:14)
[2018-10-04] MEDS: INSULIN GLARGINE, 100 UNIT/ML CARTRIDGE SQ SCH ×2 (09:25→22:53)
[2018-10-04] MEDS: HEPARIN SODIUM, PORCINE 5000 UNITS/1 ML VIAL SQ SCH ×2 (09:26→21:09)
[2018-10-04 12:00] VITALS: BP 148/78
[2018-10-04] MEDS ORDERED: TPN BAG #24 IV PRN ×7 (12:30)
[2018-10-04 18:05] VITALS: BP 140/70
[2018-10-04 20:04] VITALS: BP 112/54
--- NOTE | 2018-10-04 21:30 | NUR ---
RN NOTES Obtained consent, for gt placement from, John Woodall, boyfriend. Stated it was ok with him to have procedure done.
[2018-10-05] MEDS: IPRATROPIUM NEB FS 0.5 MG/2.5 ML AMPUL.NEB NEB SCH ×4 (00:39→19:29)
[2018-10-05] MEDS: ALBUTEROL FS 2.5 MG/3 ML VIAL.NEB NEB SCH ×4 (00:39→19:29)
[2018-10-05 03:21] VITALS: BP 129/69
[2018-10-05] MEDS: MAG HYDROX/AL HYDROX/SIMETH 30 ML UDC TP SCH ×4 (05:17→23:42)
[2018-10-05] MEDS: BLOOD SUGAR DIAGNOSTIC 1 EACH STRIP IN SCH ×3 (05:17→18:08)
[2018-10-05] MEDS: INSULIN REGULAR, HUMAN 100 UNIT/ML 3 ML VIAL SQ PRN ×2 (05:18→18:08)
[2018-10-05 06:04] VITALS: BP 111/56
[2018-10-05 07:35] LABS: CALCIUM, SERUM 8.6 mg/dL (8.5-10.1); CREATININE 3.2 mg/dL (0.6-1.3); MAGNESIUM 1.8 mg/dL (1.8-2.4); PHOSPHORUS 2.4 mg/dL (2.5-4.9); POTASSIUM 4.5 mmol/L (3.5-5.1)
[2018-10-05 07:43] VITALS: BP 160/90
--- NOTE | 2018-10-05 08:10 | NUR ---
Called Dr Castro's office and spoke with ANEL. Pt scheduled for hemodialysis today at [facility] but also scheduled by Dr Ames for EGD with PEG placement today. ANEL said he will page Dr Olivo (president ergonomic consulting for Dr Castro).
[2018-10-05] MEDS: Z GUARD REMEDY 4 OZ OINT TP SCH ×2 (09:00→21:59)
[2018-10-05] MEDS: ASCORBIC ACID 500 MG TABLET GT SCH (09:00)
[2018-10-05] MEDS: HEPARIN SODIUM, PORCINE 5000 UNITS/1 ML VIAL SQ SCH ×2 (09:00→20:44)
[2018-10-05] MEDS: POLYVINYL ALCOHOL 15 ML BOTTLE EACHEYE SCH ×2 (09:00→21:59)
[2018-10-05] MEDS: PROSTAT (PYXIS) 30 ML UDC GT SCH ×3 (09:00→17:00)
[2018-10-05] MEDS: HYDROGEN PEROXIDE 480 ML BOTTLE TP SCH ×2 (09:00→21:59)
[2018-10-05] MEDS: ACETAMINOPHEN 650 MG/20 ML UDC- SA PATIENTS-PAIN ONLY GT SCH ×2 (09:00→21:38)
[2018-10-05] MEDS: VIT B CMPLX 3/FA/VIT C/BIOTIN 1 TAB TABLET GT SCH (09:00)
[2018-10-05] MEDS: ACIDOPHILUS/BULGARICUS 1 EACH TAB.CHEW GT SCH ×2 (09:00→17:00)
[2018-10-05] MEDS: METOCLOPRAMIDE HCL 10 MG/10 ML UDC GT SCH ×2 (09:00→21:37)
[2018-10-05] MEDS: SEVELAMER CARBONATE 0.8 GM POWD.PACK GT SCH ×2 (09:00→17:00)
[2018-10-05] MEDS: INSULIN GLARGINE, 100 UNIT/ML CARTRIDGE SQ SCH ×2 (09:30→21:59)
[2018-10-05] MEDS ORDERED: TPN BAG #25 IV PRN ×9 (13:00)
[2018-10-05] MEDS: FAT EMULSION 20% 500 ML in PREMIX 1 EA IV SCH (16:00)
[2018-10-05 18:00] VITALS: BP 128/67
[2018-10-05 20:00] VITALS: BP 115/79
[2018-10-05 20:52] VITALS: BP 115/79
[2018-10-05] MEDS: NEXIUM 40 MG VIAL IV SCH (21:00)
[2018-10-05] MEDS: METOPROLOL TARTRATE 50 MG TABLET GT SCH (21:38)
[2018-10-06] VITALS: BP 113/71
[2018-10-06] MEDS: BLOOD SUGAR DIAGNOSTIC 1 EACH STRIP IN SCH ×4 (00:11→18:41)
[2018-10-06] MEDS: INSULIN REGULAR, HUMAN 100 UNIT/ML 3 ML VIAL SQ PRN ×4 (00:13→18:42)
[2018-10-06] MEDS: IPRATROPIUM NEB FS 0.5 MG/2.5 ML AMPUL.NEB NEB SCH ×4 (00:57→19:30)
[2018-10-06] MEDS: ALBUTEROL FS 2.5 MG/3 ML VIAL.NEB NEB SCH ×3 (00:57→19:30)
[2018-10-06] MEDS: MAG HYDROX/AL HYDROX/SIMETH 30 ML UDC TP SCH ×4 (04:55→22:04)
[2018-10-06 06:00] VITALS: BP 118/68
[2018-10-06 07:50] VITALS: BP 147/75
[2018-10-06] MEDS: NEXIUM 40 MG VIAL IV SCH (08:09)
[2018-10-06 08:39] LABS: POTASSIUM 3.1 mmol/L (3.5-5.1)
[2018-10-06 08:40] LABS: CALCIUM, SERUM 8.5 mg/dL (8.5-10.1); CREATININE 2.6 mg/dL (0.6-1.3); MAGNESIUM 1.8 mg/dL (1.8-2.4); PHOSPHORUS 1.7 mg/dL (2.5-4.9)
[2018-10-06] MEDS: METOPROLOL TARTRATE 50 MG TABLET GT SCH ×2 (09:00→21:25)
[2018-10-06] MEDS: HYDROGEN PEROXIDE 480 ML BOTTLE TP SCH ×2 (09:00→22:00)
[2018-10-06] MEDS: Z GUARD REMEDY 4 OZ OINT TP SCH ×2 (09:00→22:00)
[2018-10-06] MEDS: hydrALAZINE HCL 25 MG TABLET GT SCH (09:00)
--- NOTE | 2018-10-06 09:30 | NUR ---
Seen and examined by Dr. Morejon, Letty FUENTES that GT will be replaced today by Oswaldo Vazquez, analyst programmer. NNO given at this time.
[2018-10-06 09:39] LABS: BASOPHILS % (AUTO) 0.5 % (0.0-2.0); EOSINOPHILS % (AUTO) 1.8 % (0.0-6.0); HEMATOCRIT 30 % (33-45); HEMOGLOBIN 9.5 g/dL (11.5-14.8); LYMPHOCYTES % (AUTO) 17.2 % (20.0-44.0); MEAN CORPUSCULAR HGB CONC 32 g/dl (31.0-36.0); MEAN CORPUSCULAR VOLUME 84 fL (82-100); MONOCYTES % (AUTO) 5.5 % (2.0-12.0); NEUTROPHILS # (AUTO) 3.5 /CMM (1.8-8.9); PLATELET COUNT (AUTO) 136 /CMM (150-450); RED BLOOD CELL COUNT(AUTO) 3.56 MIL/uL (4.0-5.2); WHITE BLOOD COUNT (AUTO) 4.7 K/uL (4.3-11.0)
[2018-10-06 09:40] LABS: LYMPHOCYTES # (AUTO) 0.8 /CMM (0.8-4.8); MONOCYTES # (AUTO) 0.3 /CMM (0.1-1.30)
[2018-10-06] MEDS: ACIDOPHILUS/BULGARICUS 1 EACH TAB.CHEW GT SCH ×2 (09:49→17:00)
[2018-10-06] MEDS: ASCORBIC ACID 500 MG TABLET GT SCH (09:49)
[2018-10-06] MEDS: SEVELAMER CARBONATE 0.8 GM POWD.PACK GT SCH (09:49)
[2018-10-06] MEDS: ACETAMINOPHEN 650 MG/20 ML UDC- SA PATIENTS-PAIN ONLY GT SCH ×2 (09:49→21:23)
[2018-10-06] MEDS: METOCLOPRAMIDE HCL 10 MG/10 ML UDC GT SCH ×2 (09:49→21:22)
[2018-10-06] MEDS: PROSTAT (PYXIS) 30 ML UDC GT SCH ×3 (09:49→17:00)
[2018-10-06] MEDS: VIT B CMPLX 3/FA/VIT C/BIOTIN 1 TAB TABLET GT SCH (09:49)
[2018-10-06] MEDS: HEPARIN SODIUM, PORCINE 5000 UNITS/1 ML VIAL SQ SCH ×2 (09:50→21:25)
[2018-10-06] MEDS: INSULIN GLARGINE, 100 UNIT/ML CARTRIDGE SQ SCH ×2 (09:51→21:27)
[2018-10-06] MEDS: POLYVINYL ALCOHOL 15 ML BOTTLE EACHEYE SCH ×2 (09:56→21:22)
[2018-10-06 12:00] VITALS: BP 114/54
--- NOTE | 2018-10-06 12:00 | NUR ---
Dr. Chacon and and OR staff at bedside for PEG placement. Anesthesiologist spoke with resident's boyfriend, responsible alliance party to obtain consent for anaesthesia. Patient tolerated the procedure well. According to Dr. Chacon, he placed thenew GT in a new site. He wants the old GT site to completely close from the inside. MD reiterate the importance that GT stopper should be about 1cm away from the skin. It should be loose to prevent GT balloon squeezing against the stomach lining causing tissue damage. According to Dr. Mei it is OK to use new GT for meds only with minimal water and continue TPN for now. Nexium changed from IV to via GT. Left a message to John, responsible alliance party regarding outcome of the procedure.
[2018-10-06] MEDS ORDERED: TPN BAG #25 IV PRN ×9 (13:56)
--- NOTE | 2018-10-06 14:00 | NUR ---
According to [facility] pharmacist [facility] resident's phosphorus level is low however patient continue to receive Sevelemer. Pharmacist reached out to Dr. Castro with order to DC Sevelemer. Order carried out.
[2018-10-06] MEDS ORDERED: TPN BAG #26 IV PRN ×7 (14:30)
[2018-10-06 18:00] VITALS: BP 152/59
[2018-10-06 20:00] VITALS: BP 143/71
[2018-10-06] MEDS: ESOMEPRAZOLE MAG TRIHYDRATE 20 MG CAPSULE.DR GT SCH (21:00)
[2018-10-07] MEDS: BLOOD SUGAR DIAGNOSTIC 1 EACH STRIP IN SCH ×4 (00:03→18:59)
[2018-10-07] MEDS: INSULIN REGULAR, HUMAN 100 UNIT/ML 3 ML VIAL SQ PRN ×3 (00:04→19:00)
[2018-10-07 00:20] VITALS: BP 139/74
[2018-10-07] MEDS: IPRATROPIUM NEB FS 0.5 MG/2.5 ML AMPUL.NEB NEB SCH ×3 (00:37→19:33)
[2018-10-07] MEDS: ALBUTEROL FS 2.5 MG/3 ML VIAL.NEB NEB SCH ×3 (00:37→19:33)
[2018-10-07] MEDS: MAG HYDROX/AL HYDROX/SIMETH 30 ML UDC TP SCH ×4 (05:56→23:00)
[2018-10-07 06:11] VITALS: BP 143/71
[2018-10-07 07:21] VITALS: BP 98/53
[2018-10-07 07:25] LABS: CALCIUM, SERUM 8.2 mg/dL (8.5-10.1); CREATININE 3.1 mg/dL (0.6-1.3); MAGNESIUM 1.8 mg/dL (1.8-2.4); PHOSPHORUS 1.9 mg/dL (2.5-4.9)
[2018-10-07 07:30] LABS: POTASSIUM 2.7 mmol/L (3.5-5.1)
--- NOTE | 2018-10-07 08:29 | NUR ---
Paged Dr Castro. Pt's potassium level 2.7. Pt on TPN and will have hemodialysis today.
[2018-10-07] MEDS: POLYVINYL ALCOHOL 15 ML BOTTLE EACHEYE SCH ×2 (08:41→21:36)
[2018-10-07] MEDS: ACIDOPHILUS/BULGARICUS 1 EACH TAB.CHEW GT SCH ×2 (08:41→18:00)
[2018-10-07] MEDS: PROSTAT (PYXIS) 30 ML UDC GT SCH ×3 (08:41→18:00)
[2018-10-07] MEDS: VIT B CMPLX 3/FA/VIT C/BIOTIN 1 TAB TABLET GT SCH (08:41)
[2018-10-07] MEDS: ESOMEPRAZOLE MAG TRIHYDRATE 20 MG CAPSULE.DR GT SCH ×2 (08:41→21:36)
[2018-10-07] MEDS: METOCLOPRAMIDE HCL 10 MG/10 ML UDC GT SCH ×2 (08:41→21:36)
[2018-10-07] MEDS: ASCORBIC ACID 500 MG TABLET GT SCH (08:41)
[2018-10-07] MEDS: HEPARIN SODIUM, PORCINE 5000 UNITS/1 ML VIAL SQ SCH ×2 (08:42→21:38)
[2018-10-07] MEDS: INSULIN GLARGINE, 100 UNIT/ML CARTRIDGE SQ SCH ×2 (08:43→21:42)
--- NOTE | 2018-10-07 09:30 | NUR ---
Informed [facility] pharmacist Pawel that Dr Castro has not called back regarding pt's K 2.7. Called [facility] and spoke with nurse Donald. Informed him of pt's K 2.7. He said they will draw labs today and correct pt's potassium. Notified Pawel.
[2018-10-07] MEDS ORDERED: TPN BAG #26 IV PRN ×7 (09:42)
[2018-10-07] MEDS ORDERED: TPN BAG #27 IV PRN ×9 (10:30)
--- NOTE | 2018-10-07 12:30 | NUR ---
Informed Dr Chacon that pt's old GT site is still leaking. He said it will still leak until it closes. No new order.
--- NOTE | 2018-10-07 13:27 | NUR ---
Maggie from [facility] called and said that they are sending pt to ER for hypotension. She said pt was hypotensive during dialysis so they administered a total of 700 mL of IV fluids.
--- NOTE | 2018-10-07 13:48 | NUR ---
Informed Dr Castro that pt was sent to ER by [facility] for hypotension.
[2018-10-07] MEDS ORDERED: HYDR-4076 PO (15:32)
[2018-10-07] MEDS ORDERED: SEVE800T8 GT (15:33)
[2018-10-07] MEDS: ACETAMINOPHEN 650 MG/20 ML UDC- SA PATIENTS-PAIN ONLY GT SCH ×2 (17:30→21:37)
--- NOTE | 2018-10-07 17:42 | NUR ---
Pt came back from ER. Paged Dr Castro.
--- NOTE | 2018-10-07 17:44 | NUR ---
According to HEDIS ANALYST Olu, pt's SBP has been in the 90s since she was admitted in the ER. He said pt was given 250 mL NS IV and Zosyn IV.
[2018-10-07 18:00] VITALS: BP 93/65
[2018-10-07] MEDS: HYDROGEL DRESSING 90 GM TUBE TP SCH ×2 (18:00→21:38)
--- NOTE | 2018-10-07 18:00 | NUR ---
Pt's vital signs are as follows BP 93/65 HR 59 T 97.3 F R 16.
[2018-10-07] MEDS: FAT EMULSION 20% 500 ML in PREMIX 1 EA IV SCH (18:30)
--- NOTE | 2018-10-07 18:54 | NUR ---
Dr Ojeda called back. Informed him that pt is back from ER. He ordered to resume all orders and check BMP.
--- NOTE | 2018-10-07 18:55 | NUR ---
Called John Woodall to inform him of pt's hypotension. Left message.
[2018-10-07] MEDS: Z GUARD REMEDY 4 OZ OINT TP SCH ×2 (18:58→21:38)
[2018-10-07] MEDS: HYDROGEN PEROXIDE 480 ML BOTTLE TP SCH ×2 (18:58→21:38)
[2018-10-07] MEDS: BACI/NEOM/POLY B OINT PKT 1 UDPKT PACKET TP SCH ×2 (18:58→21:38)
[2018-10-07 20:47] LABS: CALCIUM, SERUM 7.7 mg/dL (8.5-10.1); CREATININE 2.3 mg/dL (0.6-1.3); POTASSIUM 3.5 mmol/L (3.5-5.1)
[2018-10-07 21:24] VITALS: BP 140/67
--- NOTE | 2018-10-07 21:35 | NUR ---
Potassium level 3.5 WNL.Pt asleep comfortable.Vitals stable.
[2018-10-07] MEDS: METOPROLOL TARTRATE 50 MG TABLET GT SCH (21:39)
[2018-10-08] VITALS: BP 119/56
[2018-10-08] MEDS: IPRATROPIUM NEB FS 0.5 MG/2.5 ML AMPUL.NEB NEB SCH ×4 (00:41→20:08)
[2018-10-08] MEDS: ALBUTEROL FS 2.5 MG/3 ML VIAL.NEB NEB SCH ×4 (00:41→20:08)
[2018-10-08] MEDS: INSULIN REGULAR, HUMAN 100 UNIT/ML 3 ML VIAL SQ PRN ×5 (01:06→23:58)
[2018-10-08] MEDS: MAG HYDROX/AL HYDROX/SIMETH 30 ML UDC TP SCH ×4 (05:00→23:53)
[2018-10-08 06:00] VITALS: BP 105/56
[2018-10-08] MEDS: BLOOD SUGAR DIAGNOSTIC 1 EACH STRIP IN SCH ×5 (06:26→23:53)
[2018-10-08 07:46] VITALS: BP 123/56
[2018-10-08 07:52] LABS: CALCIUM, SERUM 8.4 mg/dL (8.5-10.1); CREATININE 2.5 mg/dL (0.6-1.3); MAGNESIUM 1.7 mg/dL (1.8-2.4); PHOSPHORUS 1.3 mg/dL (2.5-4.9); POTASSIUM 4.2 mmol/L (3.5-5.1)
[2018-10-08] MEDS ORDERED: TPN BAG #27 IV PRN ×18 (08:26→08:30)
[2018-10-08] MEDS: ACIDOPHILUS/BULGARICUS 1 EACH TAB.CHEW GT SCH ×2 (08:38→17:00)
[2018-10-08] MEDS: hydrALAZINE HCL 25 MG TABLET GT SCH (08:38)
[2018-10-08] MEDS: VIT B CMPLX 3/FA/VIT C/BIOTIN 1 TAB TABLET GT SCH (08:38)
[2018-10-08] MEDS: METOPROLOL TARTRATE 50 MG TABLET GT SCH ×2 (08:38→21:29)
[2018-10-08] MEDS: PROSTAT (PYXIS) 30 ML UDC GT SCH ×3 (08:38→17:00)
[2018-10-08] MEDS: ESOMEPRAZOLE MAG TRIHYDRATE 20 MG CAPSULE.DR GT SCH ×2 (08:38→21:09)
[2018-10-08] MEDS: POLYVINYL ALCOHOL 15 ML BOTTLE EACHEYE SCH ×2 (08:38→21:09)
[2018-10-08] MEDS: ASCORBIC ACID 500 MG TABLET GT SCH (08:39)
[2018-10-08] MEDS: METOCLOPRAMIDE HCL 10 MG/10 ML UDC GT SCH ×2 (08:39→21:09)
[2018-10-08] MEDS: ACETAMINOPHEN 650 MG/20 ML UDC- SA PATIENTS-PAIN ONLY GT SCH ×2 (08:39→21:09)
[2018-10-08] MEDS: HEPARIN SODIUM, PORCINE 5000 UNITS/1 ML VIAL SQ SCH ×2 (08:40→21:09)
[2018-10-08] MEDS: INSULIN GLARGINE, 100 UNIT/ML CARTRIDGE SQ SCH ×2 (08:40→21:30)
[2018-10-08] MEDS ORDERED: TPN BAG #28 IV PRN ×7 (09:00)
[2018-10-08] MEDS: HYDROGEN PEROXIDE 480 ML BOTTLE TP SCH ×2 (09:15→21:53)
[2018-10-08] MEDS: HYDROGEL DRESSING 90 GM TUBE TP SCH ×2 (09:15→21:53)
[2018-10-08] MEDS: Z GUARD REMEDY 4 OZ OINT TP SCH ×2 (09:15→21:53)
[2018-10-08] MEDS: BACI/NEOM/POLY B OINT PKT 1 UDPKT PACKET TP SCH ×2 (09:15→21:53)
[2018-10-08 12:00] VITALS: BP 109/73
[2018-10-08 18:44] VITALS: BP 110/72
[2018-10-08 20:35] VITALS: BP 99/46
[2018-10-09 00:10] VITALS: BP 86/48
--- NOTE | 2018-10-09 00:10 | NUR ---
MS/RN NOTES Patient in bed, open eyes, nonverbal. V/s checked, Bp- 51/43, hr-80, Rr-20, O2 sat-99%. Placed patient on Trendelenburg position for 15 minutes, Rechecked v/s; Bp- 86/49. Called Dr. burns answering service. Will wait for call back.
[2018-10-09 01:25] VITALS: BP 139/107
--- NOTE | 2018-10-09 01:25 | NUR ---
ms/rm notes Patient awake, non verbal , open eyes. Asymptomatic. Reposition and clean the patient Recheck v/s Bp- 139/107, hr-98. T-98.1, o2 sat-99. No indication of pain or discomfort. Left arm dressing i=is wet, leaking noted on the left arm. Dressing changes done, patient tolerated it well. No acute distress noted. Will continue to monitor
[2018-10-09] MEDS: ALBUTEROL FS 2.5 MG/3 ML VIAL.NEB NEB SCH ×4 (01:46→19:35)
[2018-10-09] MEDS: IPRATROPIUM NEB FS 0.5 MG/2.5 ML AMPUL.NEB NEB SCH ×4 (01:46→19:35)
[2018-10-09] MEDS: BLOOD SUGAR DIAGNOSTIC 1 EACH STRIP IN SCH ×3 (05:36→17:28)
[2018-10-09] MEDS: MAG HYDROX/AL HYDROX/SIMETH 30 ML UDC TP SCH ×4 (05:36→23:00)
[2018-10-09] MEDS: INSULIN REGULAR, HUMAN 100 UNIT/ML 3 ML VIAL SQ PRN ×2 (05:38→17:29)
[2018-10-09 05:45] VITALS: BP 107/75
[2018-10-09 07:29] LABS: CALCIUM, SERUM 8.8 mg/dL (8.5-10.1); MAGNESIUM 1.9 mg/dL (1.8-2.4); PHOSPHORUS 1.6 mg/dL (2.5-4.9); POTASSIUM 3.1 mmol/L (3.5-5.1)
[2018-10-09] MEDS: ACIDOPHILUS/BULGARICUS 1 EACH TAB.CHEW GT SCH ×2 (08:45→17:27)
[2018-10-09] MEDS: METOCLOPRAMIDE HCL 10 MG/10 ML UDC GT SCH ×2 (08:45→21:27)
[2018-10-09] MEDS: VIT B CMPLX 3/FA/VIT C/BIOTIN 1 TAB TABLET GT SCH (08:45)
[2018-10-09] MEDS: ESOMEPRAZOLE MAG TRIHYDRATE 20 MG CAPSULE.DR GT SCH ×2 (08:45→21:26)
[2018-10-09] MEDS: POLYVINYL ALCOHOL 15 ML BOTTLE EACHEYE SCH ×2 (08:45→21:26)
[2018-10-09] MEDS: PROSTAT (PYXIS) 30 ML UDC GT SCH ×3 (08:45→17:28)
[2018-10-09] MEDS: ASCORBIC ACID 500 MG TABLET GT SCH (08:46)
[2018-10-09] MEDS: ACETAMINOPHEN 650 MG/20 ML UDC- SA PATIENTS-PAIN ONLY GT SCH ×2 (08:46→21:44)
[2018-10-09] MEDS: HEPARIN SODIUM, PORCINE 5000 UNITS/1 ML VIAL SQ SCH ×2 (08:46→21:29)
[2018-10-09] MEDS: INSULIN GLARGINE, 100 UNIT/ML CARTRIDGE SQ SCH ×2 (08:49→21:30)
[2018-10-09] MEDS: BACI/NEOM/POLY B OINT PKT 1 UDPKT PACKET TP SCH ×2 (09:15→21:44)
[2018-10-09] MEDS: HYDROGEN PEROXIDE 480 ML BOTTLE TP SCH ×2 (09:15→21:44)
[2018-10-09] MEDS: Z GUARD REMEDY 4 OZ OINT TP SCH ×2 (09:15→21:44)
[2018-10-09] MEDS: HYDROGEL DRESSING 90 GM TUBE TP SCH ×2 (09:15→21:44)
--- NOTE | 2018-10-09 10:55 | NUR ---
Resident picked up by [facility] for hemodialyis treatment via gurney, accompanied by 2 EMT'S and 1 RT. LFA AV shunt intact, no bleeding noted. Positive for thrill and bruit. Resident left the building in stable condition. Addendum: 10/09/18 at 1924 by KHADIJAH JENNINGS LVN RFA AV shunt intact, no bleeding noted. Positieve for thrill and bruit.
[2018-10-09 12:10] VITALS: BP 101/45
[2018-10-09] MEDS: FAT EMULSION 20% 500 ML in PREMIX 1 EA IV SCH (14:00)
[2018-10-09 14:25] VITALS: BP 92/52
--- NOTE | 2018-10-09 14:25 | NUR ---
Resident returned from S/P hemodialysis treatment, no s/s of any complications noted. RFA AV shunt intact, no bleeding noted, covered with dressing, clean and dry. Positive for thrill and bruit. No respiratory distress noted. Kept comfortable in bed.
[2018-10-09] MEDS: TPN BAG #29 IV PRN ×9 (15:01)
[2018-10-09 18:40] VITALS: BP 101/50
[2018-10-09] MEDS: METOPROLOL TARTRATE 50 MG TABLET GT SCH (22:00)
[2018-10-10] MEDS: BLOOD SUGAR DIAGNOSTIC 1 EACH STRIP IN SCH ×4 (00:43→17:27)
[2018-10-10] MEDS: INSULIN REGULAR, HUMAN 100 UNIT/ML 3 ML VIAL SQ PRN ×4 (00:44→17:28)
[2018-10-10 00:48] VITALS: BP 140/71
[2018-10-10] MEDS: IPRATROPIUM NEB FS 0.5 MG/2.5 ML AMPUL.NEB NEB SCH ×4 (01:11→19:34)
[2018-10-10] MEDS: ALBUTEROL FS 2.5 MG/3 ML VIAL.NEB NEB SCH ×4 (01:11→19:34)
[2018-10-10] MEDS: MAG HYDROX/AL HYDROX/SIMETH 30 ML UDC TP SCH ×4 (05:33→23:00)
[2018-10-10 06:12] VITALS: BP 135/75
[2018-10-10 08:03] VITALS: BP 101/53
[2018-10-10] MEDS: hydrALAZINE HCL 25 MG TABLET GT SCH (09:00)
[2018-10-10] MEDS: METOPROLOL TARTRATE 50 MG TABLET GT SCH ×2 (09:00→21:10)
[2018-10-10] MEDS: TPN BAG #29 IV PRN ×9 (09:17)
[2018-10-10] MEDS: POLYVINYL ALCOHOL 15 ML BOTTLE EACHEYE SCH ×2 (09:19→21:08)
[2018-10-10] MEDS: ESOMEPRAZOLE MAG TRIHYDRATE 20 MG CAPSULE.DR GT SCH ×2 (09:19→21:08)
[2018-10-10] MEDS: PROSTAT (PYXIS) 30 ML UDC GT SCH ×3 (09:19→17:27)
[2018-10-10] MEDS: VIT B CMPLX 3/FA/VIT C/BIOTIN 1 TAB TABLET GT SCH (09:19)
[2018-10-10] MEDS: METOCLOPRAMIDE HCL 10 MG/10 ML UDC GT SCH ×2 (09:19→21:08)
[2018-10-10] MEDS: ACIDOPHILUS/BULGARICUS 1 EACH TAB.CHEW GT SCH ×2 (09:19→17:27)
[2018-10-10] MEDS: ASCORBIC ACID 500 MG TABLET GT SCH (09:20)
[2018-10-10] MEDS: ACETAMINOPHEN 650 MG/20 ML UDC- SA PATIENTS-PAIN ONLY GT SCH ×2 (09:20→21:09)
[2018-10-10] MEDS: HEPARIN SODIUM, PORCINE 5000 UNITS/1 ML VIAL SQ SCH ×2 (09:21→21:09)
[2018-10-10] MEDS: INSULIN GLARGINE, 100 UNIT/ML CARTRIDGE SQ SCH ×2 (09:23→21:27)
[2018-10-10] MEDS: HYDROGEN PEROXIDE 480 ML BOTTLE TP SCH ×2 (10:00→21:10)
[2018-10-10] MEDS: HYDROGEL DRESSING 90 GM TUBE TP SCH ×2 (10:00→21:09)
[2018-10-10] MEDS: Z GUARD REMEDY 4 OZ OINT TP SCH ×2 (10:00→21:10)
[2018-10-10] MEDS: BACI/NEOM/POLY B OINT PKT 1 UDPKT PACKET TP SCH ×2 (10:00→21:10)
[2018-10-10 10:48] LABS: CALCIUM, SERUM 8.3 mg/dL (8.5-10.1); CREATININE 2.8 mg/dL (0.6-1.3); MAGNESIUM 1.9 mg/dL (1.8-2.4); PHOSPHORUS 1.5 mg/dL (2.5-4.9); POTASSIUM 3.7 mmol/L (3.5-5.1)
[2018-10-10 12:00] VITALS: BP 139/63
[2018-10-10] MEDS ORDERED: TPN BAG #30 IV PRN ×9 (13:30)
[2018-10-10 18:32] VITALS: BP 120/49
[2018-10-10 20:41] VITALS: BP 121/53
[2018-10-11 00:17] VITALS: BP 117/52
[2018-10-11] MEDS: BLOOD SUGAR DIAGNOSTIC 1 EACH STRIP IN SCH ×5 (00:19→23:26)
[2018-10-11] MEDS: INSULIN REGULAR, HUMAN 100 UNIT/ML 3 ML VIAL SQ PRN ×5 (00:20→23:27)
[2018-10-11] MEDS: IPRATROPIUM NEB FS 0.5 MG/2.5 ML AMPUL.NEB NEB SCH ×4 (01:57→20:17)
[2018-10-11] MEDS: ALBUTEROL FS 2.5 MG/3 ML VIAL.NEB NEB SCH ×4 (01:57→20:17)
[2018-10-11] MEDS: TPN BAG #30 IV PRN ×7 (02:30)
[2018-10-11] MEDS: MAG HYDROX/AL HYDROX/SIMETH 30 ML UDC TP SCH ×4 (05:53→23:26)
[2018-10-11 06:24] LABS: CALCIUM, SERUM 7.5 mg/dL (8.5-10.1); CREATININE 3.2 mg/dL (0.6-1.3); MAGNESIUM 1.9 mg/dL (1.8-2.4); PHOSPHORUS 1.6 mg/dL (2.5-4.9); POTASSIUM 3.6 mmol/L (3.5-5.1)
[2018-10-11 06:29] VITALS: BP 109/55
[2018-10-11 07:39] VITALS: BP 118/105
--- NOTE | 2018-10-11 08:04 | NUR ---
RT Pt received trached on the vent with noted settings. Pt is awake but does not follow commands. Vent alarms are set and audible with BVM by bedside. CROP OR GRAIN FARMWORKER cuff pressure noted. Vent is plugged into red outlet. Sx'd moderate thick pale yellow secretions. No respiratory distress noted at this time. Addendum: 10/11/18 at 1322 by EDU CIFUENTES RT Amended: Links added.
[2018-10-11] MEDS: ACETAMINOPHEN 650 MG/20 ML UDC- SA PATIENTS-PAIN ONLY GT SCH ×2 (08:45→21:07)
[2018-10-11] MEDS: ASCORBIC ACID 500 MG TABLET GT SCH (08:46)
[2018-10-11] MEDS: METOCLOPRAMIDE HCL 10 MG/10 ML UDC GT SCH ×2 (08:46→21:07)
[2018-10-11] MEDS: POLYVINYL ALCOHOL 15 ML BOTTLE EACHEYE SCH ×2 (08:46→21:04)
[2018-10-11] MEDS: VIT B CMPLX 3/FA/VIT C/BIOTIN 1 TAB TABLET GT SCH (08:46)
[2018-10-11] MEDS: ESOMEPRAZOLE MAG TRIHYDRATE 20 MG CAPSULE.DR GT SCH ×2 (08:46→21:06)
[2018-10-11] MEDS: PROSTAT (PYXIS) 30 ML UDC GT SCH ×3 (08:46→17:44)
[2018-10-11] MEDS: ACIDOPHILUS/BULGARICUS 1 EACH TAB.CHEW GT SCH ×2 (08:46→17:44)
[2018-10-11] MEDS: METOPROLOL TARTRATE 50 MG TABLET GT SCH ×2 (08:47→21:09)
[2018-10-11] MEDS: hydrALAZINE HCL 25 MG TABLET GT SCH (08:47)
[2018-10-11] MEDS: HEPARIN SODIUM, PORCINE 5000 UNITS/1 ML VIAL SQ SCH ×2 (09:04→21:08)
[2018-10-11] MEDS: INSULIN GLARGINE, 100 UNIT/ML CARTRIDGE SQ SCH ×2 (09:05→21:10)
[2018-10-11] MEDS: BACI/NEOM/POLY B OINT PKT 1 UDPKT PACKET TP SCH ×2 (09:20→21:09)
[2018-10-11] MEDS: HYDROGEL DRESSING 90 GM TUBE TP SCH ×2 (09:20→21:08)
[2018-10-11] MEDS: Z GUARD REMEDY 4 OZ OINT TP SCH ×2 (09:20→21:09)
[2018-10-11] MEDS: HYDROGEN PEROXIDE 480 ML BOTTLE TP SCH ×2 (09:20→21:08)
--- NOTE | 2018-10-11 10:15 | NUR ---
RT Monthly trach change done with new shiley 6 trach. Trach change done with no complications. Minimal bleeding but no redness at trach site. Equal bilateral breathe sounds and chest rise noted. Airway is clear and patent. Pt placed back on vent with noted settings. No respiratory distress noted at this time, will continue to monitor. Addendum: 10/11/18 at 1133 by EDU CIFUENTES RT Amended: Links added.
--- NOTE | 2018-10-11 10:22 | NUR ---
Routine trach tube change done by 2 RT's, procedure tolerated well, minimal bleeding noted. Trach intact at midline, airway patent, connected to vent with prescribed settings as ordered, no respiratory distress noted. Will monitor.
--- NOTE | 2018-10-11 11:23 | NUR ---
Dr Castro ordered to DC midline. He said pt has bacteremia. Informed him that pt is still on TPN, old GT site is still open and leaking that is why Dr Ames has not ordered to use the new GT yet. He said midline has to come out. Paged Dr Ames.
--- NOTE | 2018-10-11 11:34 | NUR ---
Spoke with Dr Ames. Informed him that Dr Castro said to have midline removed due to bacteremia, pt still on TPN, old GT site is still leaking. Also informed him that Dr Castro said to maybe start pt on low rate of feeding since old GT site is still leaking. Dr Ames said the new GT cannot be used if old site is leaking. He suggested to give D5 IV fluids for a few days. Notified Dr Castro and he said to have the pt get a new PICC line so TPN can be continued. Informed nursing banquet supervisor Alec to call PICC line nurse.
[2018-10-11 12:00] VITALS: BP 140/73
--- NOTE | 2018-10-11 12:30 | NUR ---
Midline on ALEXSANDRA was DC'd, no bleeding noted, catheter tip intact. Pt tolerated well.
--- NOTE | 2018-10-11 12:43 | NUR ---
PICC line nurse Endy unable to insert PICC line since a yellowish fluid was coming out from the line that he placed, no blood return was noted. He said it looks like an infection, he will need to insert an IJ line. Called Dr Castro's office to get an order for an IJ line. Dr Olivo bus and sys integration senior manager and was paged by Donavan.
--- NOTE | 2018-10-11 13:00 | NUR ---
Notified [facility] pharmacist Sujatha that pt's TPN was stopped because pt does not have a line at this time.
--- NOTE | 2018-10-11 13:50 | NUR ---
Called Dr Castro's office and spoke with Rachell. She will page Dr Castro.
--- NOTE | 2018-10-11 14:20 | NUR ---
Called Dr Castro's office again. Had Rachell page him again.
--- NOTE | 2018-10-11 14:39 | NUR ---
Called Dr Castro's office. Received order to insert IJ catheter line.
[2018-10-11] MEDS ORDERED: TPN BAG #31 IV PRN ×9 (15:30)
--- NOTE | 2018-10-11 16:35 | NUR ---
Pt's left IJ line was removed by NED Schumacher. He said he had to remove it since the tip is kinked. He will talk with Dr Verdin about placing another IJ on the right side or a femoral line. Called Dr Castro's office and left message with Rachell.
--- NOTE | 2018-10-11 18:00 | NUR ---
Notified [facility] pharmacist Sujatha that pt still does not have a line so she is not getting her TPN. Sujatha said it is fine. Pt's blood sugar was 159 at 1715. BP 128/57 HR 82.
[2018-10-11 18:29] VITALS: BP 97/45
--- NOTE | 2018-10-11 18:49 | NUR ---
PICC line nurse Endy spoke with THOMAS Leija on the phone. Received order to do an ultrasound of the left upper extremity. NED Schumacher told THOMAS Macedo that he might have placed the PICC line on an abscess earlier that is why there was pus coming out.
--- NOTE | 2018-10-11 19:15 | NUR ---
THOMAS Ramsay came to see pt. She already saw pt's blood culture result. She ordered Vancomycin IV pharmacy to dose for 14 days.
[2018-10-11 19:59] VITALS: BP 128/57
[2018-10-11] MEDS: FAT EMULSION 20% 500 ML in PREMIX 1 EA IV SCH (20:00)
--- NOTE | 2018-10-11 20:30 | NUR ---
RN NOTES Picc line nurse inserted right femoral central line. No s/s of bleeding. CXR ordered to confirm placement. Will await for results.
[2018-10-11] MEDS ORDERED: VANCOMYCIN 500 MG in IV D5W 100 ML IV ONE (21:00)
--- NOTE | 2018-10-11 21:05 | NUR ---
RN NOTES Picc line in place per ultrasound report. Continued TPN as ordered and started Lipids as ordered. Vancomycin 500mg IV started as ordered.
[2018-10-12] MEDS: ALBUTEROL FS 2.5 MG/3 ML VIAL.NEB NEB SCH ×4 (01:21→19:56)
[2018-10-12] MEDS: IPRATROPIUM NEB FS 0.5 MG/2.5 ML AMPUL.NEB NEB SCH ×4 (01:21→19:56)
--- NOTE | 2018-10-12 02:31 | NUR ---
RT NOTE: RECEIVED PT ON ORDERED NOTED VENT SETTINGS. NO RESPIRATORY DISTRESS NOTED. TRACH CHECKED SECURE AND PATENT. SXD AND LAVAGE PT Q ROUND AND NEEDED. TXS GIVEN ORDERED WITH NO ADVERSE REACTIONS NOTED. SPARE TRACH AND AMBU BAG @ BEDSIDE. ALARMS CHECKED ON AND AUDIBLE. WILL CONTINUE TO MONITOR. Addendum: 10/12/18 at 0231 by RACHELLE MENA RT Amended: Links added.
[2018-10-12 03:16] VITALS: BP 102/59
[2018-10-12] MEDS: TPN BAG #30 IV PRN ×7 (03:30)
[2018-10-12] MEDS: MAG HYDROX/AL HYDROX/SIMETH 30 ML UDC TP SCH ×3 (05:38→17:00)
[2018-10-12] MEDS: BLOOD SUGAR DIAGNOSTIC 1 EACH STRIP IN SCH ×3 (05:38→17:48)
[2018-10-12] MEDS: INSULIN REGULAR, HUMAN 100 UNIT/ML 3 ML VIAL SQ PRN ×2 (05:39→17:50)
[2018-10-12 06:07] VITALS: BP 122/56
[2018-10-12 07:47] VITALS: BP 141/55
[2018-10-12 08:15] LABS: CREATININE 3.4 mg/dL (0.6-1.3); POTASSIUM 3.1 mmol/L (3.5-5.1)
[2018-10-12] MEDS: VIT B CMPLX 3/FA/VIT C/BIOTIN 1 TAB TABLET GT SCH (09:09)
[2018-10-12] MEDS: PROSTAT (PYXIS) 30 ML UDC GT SCH ×3 (09:09→17:01)
[2018-10-12] MEDS: METOCLOPRAMIDE HCL 10 MG/10 ML UDC GT SCH ×2 (09:09→21:19)
[2018-10-12] MEDS: ASCORBIC ACID 500 MG TABLET GT SCH (09:09)
[2018-10-12] MEDS: POLYVINYL ALCOHOL 15 ML BOTTLE EACHEYE SCH ×2 (09:09→21:19)
[2018-10-12] MEDS: ESOMEPRAZOLE MAG TRIHYDRATE 20 MG CAPSULE.DR GT SCH ×2 (09:09→21:19)
[2018-10-12] MEDS: ACIDOPHILUS/BULGARICUS 1 EACH TAB.CHEW GT SCH ×2 (09:09→17:01)
[2018-10-12] MEDS: HEPARIN SODIUM, PORCINE 5000 UNITS/1 ML VIAL SQ SCH ×2 (09:10→21:20)
[2018-10-12] MEDS: INSULIN GLARGINE, 100 UNIT/ML CARTRIDGE SQ SCH ×2 (09:10→21:21)
--- NOTE | 2018-10-12 09:45 | NUR ---
Called Dr Castro's office and left message with Rachell regarding pt's K 3.1 and Phosphorus 1.0. Selena from Dr Castro's office called back. She said Dr Castro wanted charge nurse to know that he is aware of lab results. No new order.
--- NOTE | 2018-10-12 10:15 | NUR ---
Called [facility] and spoke with Donald. Informed him of pt's K 3.1 and Phosphorus 1.0. He said they do adjustments with their machine to correct potassium but they cannot do anything for the phosphorus. He also said that they will draw monthly labs on 10/14/18. Informed Donald that pt has a right femoral line and asked him to be careful with it. Notified [facility] pharmacist Carlos regarding conversation with Donald. He said Dr Castro might want to order labs when pt comes back from dialysis. Paged Dr Castro, left message with Rachell. Also asked [facility] to inform Dr Castro that pt now has a femoral line.
[2018-10-12] MEDS ORDERED: VANCOMYCIN 1 GM in IV D5W 250 ML IV ONE (15:00)
--- NOTE | 2018-10-12 15:00 | NUR ---
Called ultrasound department to follow up result of left upper extremity ultrasound. Left message with Jenifer.
--- NOTE | 2018-10-12 15:00 | NUR ---
Informed INSIDE SALES ACCOUNT EXECUTIVE Sobia that pt was given Vancomycin last night before blood culture was drawn. No new order.
[2018-10-12 15:45] VITALS: BP 120/89
[2018-10-12] MEDS: ACETAMINOPHEN 650 MG/20 ML UDC- SA PATIENTS-PAIN ONLY GT SCH ×2 (16:00→21:19)
--- NOTE | 2018-10-12 16:19 | NUR ---
Pt's old GT site still leaking. Surrounding area kept clean and dry.
--- NOTE | 2018-10-12 16:21 | NUR ---
Spoke with Francisca of [facility]. She said pt will have an extra dialysis treatment tomorrow at 1715 for 2 hours. Arranged transportation with Chapin, cherry picker operator time will be at 1645.
[2018-10-12] MEDS: BACI/NEOM/POLY B OINT PKT 1 UDPKT PACKET TP SCH ×2 (17:00→21:20)
[2018-10-12] MEDS: HYDROGEL DRESSING 90 GM TUBE TP SCH ×2 (17:00→21:20)
[2018-10-12] MEDS: Z GUARD REMEDY 4 OZ OINT TP SCH ×2 (17:00→21:20)
[2018-10-12] MEDS ORDERED: VANCOMYCIN 500 MG in IV NS 0.9% 100 ML IV SCH (17:00)
[2018-10-12] MEDS: HYDROGEN PEROXIDE 480 ML BOTTLE TP SCH ×2 (17:00→21:20)
[2018-10-12 18:00] VITALS: BP 97/44
--- NOTE | 2018-10-12 18:18 | NUR ---
Called Dr Castro's office regarding Phosphorus 1.0 and left message with Eagle. He will page Dr Ojeda, general medical practitioner for Dr Castro. According to [facility] pharmacist May, new TPN bag has 17.6 mEq of Phosphorus.
--- NOTE | 2018-10-12 18:40 | NUR ---
Started infusing TPN bag #32 per [facility] pharmacist May's order. She said TPN bag #32 has more phosphorus and pt's phosphorus level is 1.0. DC's TPN bag #31. Dr Ojeda called and informed him of pt's phosphorus level of 1.0. He asked about potassium and informed him it was 3.1. Also informed him pt is on TPN and TPN bag #32 has 17.6 mEq of phosphorus. He ordered to give Potassium Phosphate 40 mEq IV.
[2018-10-12] MEDS: POTASSIUM PHOSPHATE MM 7.5 MMOL in IV D5W 100 ML IV SCH ×2 (20:00→23:00)
[2018-10-12] MEDS ORDERED: TPN BAG #32 IV PRN ×9 (20:00)
--- NOTE | 2018-10-12 20:00 | NUR ---
RN NOTES Potassium Phosphate 40 mEq Iv started as ordered per pharmacy, no A/R noted.
[2018-10-12] MEDS: METOPROLOL TARTRATE 50 MG TABLET GT SCH (21:21)
[2018-10-13] VITALS (7 sets, daily range): BP systolic 96–108; BP diastolic 40–73
[2018-10-13] MEDS: BLOOD SUGAR DIAGNOSTIC 1 EACH STRIP IN SCH ×4 (00:16→17:29)
[2018-10-13] MEDS: INSULIN REGULAR, HUMAN 100 UNIT/ML 3 ML VIAL SQ PRN ×4 (00:18→17:33)
[2018-10-13] MEDS: ALBUTEROL FS 2.5 MG/3 ML VIAL.NEB NEB SCH ×4 (01:44→19:54)
[2018-10-13] MEDS: IPRATROPIUM NEB FS 0.5 MG/2.5 ML AMPUL.NEB NEB SCH ×4 (01:44→19:54)
[2018-10-13] MEDS: POTASSIUM PHOSPHATE MM 7.5 MMOL in IV D5W 100 ML IV SCH (02:00)
[2018-10-13 08:16] LABS: CALCIUM, SERUM 7.9 mg/dL (8.5-10.1); CREATININE 2.9 mg/dL (0.6-1.3); MAGNESIUM 1.9 mg/dL (1.8-2.4); PHOSPHORUS 1.9 mg/dL (2.5-4.9); POTASSIUM 3.1 mmol/L (3.5-5.1)
[2018-10-13] MEDS: hydrALAZINE HCL 25 MG TABLET GT SCH (09:00)
[2018-10-13] MEDS: METOPROLOL TARTRATE 50 MG TABLET GT SCH ×2 (09:00→22:00)
[2018-10-13] MEDS: ACIDOPHILUS/BULGARICUS 1 EACH TAB.CHEW GT SCH ×2 (09:07→17:29)
[2018-10-13] MEDS: POLYVINYL ALCOHOL 15 ML BOTTLE EACHEYE SCH ×2 (09:07→21:05)
[2018-10-13] MEDS: ESOMEPRAZOLE MAG TRIHYDRATE 20 MG CAPSULE.DR GT SCH ×2 (09:08→21:05)
[2018-10-13] MEDS: ACETAMINOPHEN 650 MG/20 ML UDC- SA PATIENTS-PAIN ONLY GT SCH ×2 (09:08→21:05)
[2018-10-13] MEDS: VIT B CMPLX 3/FA/VIT C/BIOTIN 1 TAB TABLET GT SCH (09:08)
[2018-10-13] MEDS: PROSTAT (PYXIS) 30 ML UDC GT SCH ×3 (09:08→17:29)
[2018-10-13] MEDS: METOCLOPRAMIDE HCL 10 MG/10 ML UDC GT SCH ×2 (09:08→21:05)
[2018-10-13] MEDS: ASCORBIC ACID 500 MG TABLET GT SCH (09:08)
[2018-10-13] MEDS: HEPARIN SODIUM, PORCINE 5000 UNITS/1 ML VIAL SQ SCH ×2 (09:09→21:08)
[2018-10-13] MEDS: INSULIN GLARGINE, 100 UNIT/ML CARTRIDGE SQ SCH ×2 (09:13→22:57)
[2018-10-13] MEDS ORDERED: TPN BAG #33 IV PRN ×7 (10:00)
[2018-10-13] MEDS ORDERED: TPN BAG #34 IV PRN ×9 (10:00)
[2018-10-13] MEDS: HYDROGEN PEROXIDE 480 ML BOTTLE TP SCH ×2 (10:08→21:09)
[2018-10-13] MEDS: Z GUARD REMEDY 4 OZ OINT TP SCH ×2 (10:08→21:09)
[2018-10-13] MEDS: HYDROGEL DRESSING 90 GM TUBE TP SCH ×2 (10:08→21:30)
[2018-10-13] MEDS: BACI/NEOM/POLY B OINT PKT 1 UDPKT PACKET TP SCH ×2 (10:08→21:09)
--- NOTE | 2018-10-13 11:00 | NUR ---
Kedar ([facility] concrete batcher) called regarding long time use of TPN. According to her, [facility] concrete batcher called following up if patient can have her GT feeding back and d/c TPN due to fluid overload. Dialysis can't remove much fluid d/t hypotension. She's suggesting if Dr. Chacon wants to insert GJ so we can feed her through the jejunum. Kedar said she will talk to Dr. Chacon.
[2018-10-13] MEDS: FAT EMULSION 20% 500 ML in PREMIX 1 EA IV SCH (14:31)
--- NOTE | 2018-10-13 15:21 | NUR ---
Called the office of Dr. Chacon spoke with Saba (Sec.) she said she will send him a message to call us back.
--- NOTE | 2018-10-13 16:45 | NUR ---
Resident scheduled extra dialysis today wasn't done due to low B/P 97/65. Left message to Dr. Olivo (fire control technician b) per Rashid (medical receptionist assistant). Will continue to monitor.
--- NOTE | 2018-10-13 17:30 | NUR ---
Received a call from Dr. Chacon and he said okay to insert NJ tube at Interventional Radiology.
[2018-10-14] VITALS (7 sets, daily range): BP systolic 93–109; BP diastolic 42–64
[2018-10-14] MEDS: BLOOD SUGAR DIAGNOSTIC 1 EACH STRIP IN SCH ×4 (00:24→18:29)
[2018-10-14] MEDS: INSULIN REGULAR, HUMAN 100 UNIT/ML 3 ML VIAL SQ PRN ×4 (00:26→18:30)
[2018-10-14] MEDS: IPRATROPIUM NEB FS 0.5 MG/2.5 ML AMPUL.NEB NEB SCH ×4 (01:26→19:07)
[2018-10-14] MEDS: ALBUTEROL FS 2.5 MG/3 ML VIAL.NEB NEB SCH ×4 (01:26→19:07)
[2018-10-14 07:48] LABS: CALCIUM, SERUM 8.3 mg/dL (8.5-10.1); CREATININE 3.2 mg/dL (0.6-1.3); MAGNESIUM 1.9 mg/dL (1.8-2.4); PHOSPHORUS 2.2 mg/dL (2.5-4.9); POTASSIUM 3.2 mmol/L (3.5-5.1)
--- NOTE | 2018-10-14 08:10 | NUR ---
RT NOTE: RECEIVED PT ON ORDERED NOTED VENT SETTINGS. NO RESPIRATORY DISTRESS NOTED. TRACH CHECKED SECURE AND PATENT. SXD AND LAVAGE PT Q ROUND AND NEEDED. TXS GIVEN ORDERED WITH NO ADVERSE REACTIONS NOTED. SPARE TRACH AND AMBU BAG @ BEDSIDE. ALARMS CHECKED ON AND AUDIBLE. WILL CONTINUE TO MONITOR.
[2018-10-14] MEDS: PROSTAT (PYXIS) 30 ML UDC GT SCH ×3 (08:42→17:28)
[2018-10-14] MEDS: ACIDOPHILUS/BULGARICUS 1 EACH TAB.CHEW GT SCH ×2 (08:42→17:28)
[2018-10-14] MEDS: VIT B CMPLX 3/FA/VIT C/BIOTIN 1 TAB TABLET GT SCH (08:42)
[2018-10-14] MEDS: ASCORBIC ACID 500 MG TABLET GT SCH (08:42)
[2018-10-14] MEDS: POLYVINYL ALCOHOL 15 ML BOTTLE EACHEYE SCH ×2 (08:42→20:41)
[2018-10-14] MEDS: METOCLOPRAMIDE HCL 10 MG/10 ML UDC GT SCH ×2 (08:42→20:41)
[2018-10-14] MEDS: ESOMEPRAZOLE MAG TRIHYDRATE 20 MG CAPSULE.DR GT SCH ×2 (08:42→20:41)
[2018-10-14] MEDS: HEPARIN SODIUM, PORCINE 5000 UNITS/1 ML VIAL SQ SCH ×2 (08:43→20:41)
[2018-10-14] MEDS: ACETAMINOPHEN 650 MG/20 ML UDC- SA PATIENTS-PAIN ONLY GT SCH ×3 (08:45→21:20)
[2018-10-14] MEDS: INSULIN GLARGINE, 100 UNIT/ML CARTRIDGE SQ SCH ×2 (08:46→21:22)
[2018-10-14] MEDS ORDERED: NYSTATIN CREAM 15 GM TUBE TP SCH (09:00)
[2018-10-14] MEDS ORDERED: TRIAMCINOLONE ACETONIDE 0.1% CR 15 GM TUBE TP SCH (09:00)
--- NOTE | 2018-10-14 09:00 | NUR ---
Called radiology today and spoke with Dr Herrera. Informed him that there is an order for NJT placement by interventional radiology. Dr Herrera said the nurse can place the NJT at bedside just like placing an NGT but inserting more of the tube down, the NJT has a weight at the tip to automatically go down the jejunum. He said placement can then be confirmed by x-ray. According to surgery department, placement of NJT is down in OR with a scope. Dr Ames came to see pt and informed him of conversation with radiology today. He said he will just replace the GT with a JT on Thursday10/18/18. Asked him if he can do it sooner, maybe tomorrow since pt is already very swollen. He said he will do it tomorrow and will check the schedule with GI lab.
[2018-10-14] MEDS: Z GUARD REMEDY 4 OZ OINT TP SCH ×2 (09:20→20:43)
[2018-10-14] MEDS: BACI/NEOM/POLY B OINT PKT 1 UDPKT PACKET TP SCH ×2 (09:20→20:43)
[2018-10-14] MEDS: HYDROGEL DRESSING 90 GM TUBE TP SCH ×2 (09:20→20:42)
[2018-10-14] MEDS: HYDROGEN PEROXIDE 480 ML BOTTLE TP SCH ×2 (09:20→20:42)
--- NOTE | 2018-10-14 10:27 | NUR ---
Pt's blood pressure 79/28 HR 57. [facility] refused to take pt to [facility] due to hypotension.
--- NOTE | 2018-10-14 10:28 | NUR ---
Paged Dr Castro to inform him of pt's BP 79/28 HR 57 and that pt did not go for hemodialysis. Left message with Selena.
--- NOTE | 2018-10-14 10:30 | NUR ---
Called [facility] and spoke with Donald. Informed him that pt's hypotension. He scheduled pt for dialysis tomorrow at 3:15 pm.
--- NOTE | 2018-10-14 10:52 | NUR ---
No call back from Dr Castro. Informed Dr Morejon of pt's hypotension. Also informed him that pt went for dialysis on 10/12/18 but was given fluids at dialysis center to stabilize blood pressure, pt was scheduled for dialysis yesterday but was unable to go due to hypotension, and pt again was unable to go to dialysis today due to low BP. Informed him that pt is swollen. Dr Morejon ordered to give NS 500 mL IV bolus and may repeat x 1 if SBP still less than 90 mmHg. He also ordered to do blood culture x 2, CBC, and CXR. Notified pt's boyfriend John of hypotension and that pt was not dialyzed today.
--- NOTE | 2018-10-14 11:34 | NUR ---
BP 94/49 HR 58. Pt on Trendelenburg position. She is awake.
[2018-10-14] MEDS: NYSTATIN/TRIAMCIN CREAM 15 GM TUBE TP SCH ×2 (11:38→20:43)
--- NOTE | 2018-10-14 11:53 | NUR ---
Saw Dr Castro walking by the unit and went to talk with him. He asked "Why did you not send the pt to dialysis with that blood pressure?" Emphasized to him that pt's blood pressure was 79/28. He said to give pt NS. Informed him that pt was already given NS bolus. Notified him that pt's K 3.2 and he said, "That's fine."
--- NOTE | 2018-10-14 12:55 | NUR ---
Seen by THOMAS Leija. She ordered Midodrine 5 mg GT before each dialysis, and to give a dose tomorrow before her dialysis. Notified Dr Castro.
[2018-10-14 13:22] LABS: BASOPHILS % (AUTO) 0.3 % (0.0-2.0); HEMATOCRIT 21 % (33-45); LYMPHOCYTES % (AUTO) 18.1 % (20.0-44.0); MEAN CORPUSCULAR HGB CONC 33 g/dl (31.0-36.0); MEAN CORPUSCULAR VOLUME 85 fL (82-100); MONOCYTES # (AUTO) 0.9 /CMM (0.1-1.30); MONOCYTES % (AUTO) 8.3 % (2.0-12.0); NEUTROPHILS % (AUTO) 72.3 % (43.0-81.0); PLATELET COUNT (AUTO) 91 /CMM (150-450); RED BLOOD CELL COUNT(AUTO) 2.49 MIL/uL (4.0-5.2)
--- NOTE | 2018-10-14 13:50 | NUR ---
Notified Dr Morejon that pt's Hgb 7.0 Hct 21. Also notified him that BP was 94/49 after the 500 cc bolus, but now BP is 83/38 HR 55. Another NS 500 cc IV bolus being administered. Dr Morejon said ok, no new order.
[2018-10-14] MEDS ORDERED: [UNRECOGNIZED DRUG - OTHER] IV PRN ×7 (14:00)
[2018-10-14] MEDS ORDERED: TPN BAG #34 IV PRN ×9 (14:00)
[2018-10-14] MEDS ORDERED: MIDODRINE HCL (5MG) 5 MG TABLET GT SCH (14:00)
--- NOTE | 2018-10-14 14:30 | NUR ---
Pt's BP 100/40 HR 58. HOB elevated. Pt awake.
--- NOTE | 2018-10-14 14:32 | NUR ---
Relayed CXR to Dr Morejon. No new order.
--- NOTE | 2018-10-14 15:00 | NUR ---
Relayed Vancomycin trough 16 BUN 76 Cr 3.2 to [facility] pharmacist Rosie. She ordered to give Vancomycin 750 mg IV after hemodialysis on hemodialysis days. Informed her that pt did not have dialysis today due to hypotension. She said not to give Vancomycin today. Pt has dialysis tomorrow so she said to give it tomorrow after dialysis instead. She also ordered to do Vancomycin trough, BUN, Cr on 10/16/18 before hemodialysis.
--- NOTE | 2018-10-14 15:27 | NUR ---
Midodrine 5 mg via GT was given to pt. BP 118/58 HR 66.
--- NOTE | 2018-10-14 15:44 | NUR ---
Called ultrasound department 3 times today to follow up result of left upper extremity ultrasound but no answer. Left message.
--- NOTE | 2018-10-14 16:34 | NUR ---
Called ultrasound department again and spoke with Indigo. She said to call [facility] Department at extension [phone]. Called extn [phone] and left message on voicemail.
--- NOTE | 2018-10-14 16:40 | NUR ---
Spoke with John Woodall. Gave him updates about pt's condition. He said he will see pt tomorrow.
--- NOTE | 2018-10-14 16:45 | NUR ---
Spoke with THOMAS Schumacher regarding left upper extremity ultrasound result. He said he already saw the result but to also inform Dr Castro in case he wants to have I & D done on the abscess.
[2018-10-14] MEDS ORDERED: VANCOMYCIN 500 MG in IV NS 0.9% 100 ML IV SCH (17:00)
--- NOTE | 2018-10-14 17:28 | NUR ---
BP 101/55 HR 62 Pt awake.
[2018-10-14 17:40] LABS: BAND % (MANUAL) 8 % (0.0-5.0); EOSINOPHILS % (MANUAL) 1 % (0-4); LYMPHOCYTES % (MANUAL) 16 % (16-48); MONOCYTES % (MANUAL) 7 % (0-11.0); MYELOCYTES % 2 % (0-0); NEUTROPHILS % (MANUAL) 63 (42-76); PROMYELOCYTES % 1 % (0-0); REACTIVE LYMPHOCYTES 2 % (0-0)
--- NOTE | 2018-10-14 20:00 | NUR ---
Pt on TPN 60ml/hr.Generalized edema noted.Pt awake no distress ,BP 105/50.Will continue to monitor.
[2018-10-14] MEDS: METOPROLOL TARTRATE 50 MG TABLET GT SCH (21:21)
[2018-10-15] VITALS (8 sets, daily range): BP systolic 80–155; BP diastolic 38–87
--- NOTE | 2018-10-15 | NUR ---
Pt asleep BP 98/45
[2018-10-15] MEDS: BLOOD SUGAR DIAGNOSTIC 1 EACH STRIP IN SCH ×4 (00:05→18:00)
[2018-10-15] MEDS: INSULIN REGULAR, HUMAN 100 UNIT/ML 3 ML VIAL SQ PRN ×3 (00:06→12:58)
[2018-10-15] MEDS: IPRATROPIUM NEB FS 0.5 MG/2.5 ML AMPUL.NEB NEB SCH ×5 (00:38→19:40)
[2018-10-15] MEDS: ALBUTEROL FS 2.5 MG/3 ML VIAL.NEB NEB SCH ×5 (00:38→19:40)
[2018-10-15 07:23] LABS: BASOPHILS % (AUTO) 0.3 % (0.0-2.0); EOSINOPHILS % (AUTO) 0.5 % (0.0-6.0); HEMATOCRIT 24 % (33-45); HEMOGLOBIN 7.3 g/dL (11.5-14.8); LYMPHOCYTES # (AUTO) 1.6 /CMM (0.8-4.8); LYMPHOCYTES % (AUTO) 16.7 % (20.0-44.0); MEAN CORPUSCULAR HGB CONC 31 g/dl (31.0-36.0); MEAN CORPUSCULAR VOLUME 85 fL (82-100); MONOCYTES # (AUTO) 0.9 /CMM (0.1-1.30); MONOCYTES % (AUTO) 9.2 % (2.0-12.0); NEUTROPHILS % (AUTO) 73.3 % (43.0-81.0); PLATELET COUNT (AUTO) 90 /CMM (150-450); RED BLOOD CELL COUNT(AUTO) 2.81 MIL/uL (4.0-5.2); WHITE BLOOD COUNT (AUTO) 9.6 K/uL (4.3-11.0)
--- NOTE | 2018-10-15 07:52 | NUR ---
Received a call from surgery c/o Katie and said that patient is scheduled for surgery at around 8:30 am. She also said that after consulting with anesthesiologist, patient should have a blood transfusion despite Hgb 7.3. Informed the nurse that will page attending physician to notify of the procedure. Requested to page Dr. Castro, spoke with Maria A from answering service. Awaiting for MD to call back.
[2018-10-15 08:01] LABS: CALCIUM, SERUM 8.5 mg/dL (8.5-10.1); CREATININE 3.5 mg/dL (0.6-1.3); MAGNESIUM 2.1 mg/dL (1.8-2.4); PHOSPHORUS 3.3 mg/dL (2.5-4.9); POTASSIUM 3.9 mmol/L (3.5-5.1)
--- NOTE | 2018-10-15 08:33 | NUR ---
Requested RASHARD Crooks to reach out to attending physician and reassess patient for possible transfer to acute hospital due to patient's current condition. Patient is extremely edematous, dialysis center unable to pull sufficient fluid/cancel dialysis schedule due to episodes of hypotension. Patient has been on TPN since 09/16. According to RASHARD, he spoke with Dr. Wall, he said that he will come to assess the patient. Dr. Chacon, dater assembler came to assess patient, he said he is delaying surgery till Thursday since patient has a lot of drainage coming from the old GT. The doctor said that he will replace the current GT with GJ. Resident's boyfriend, John marinelli.
[2018-10-15 08:45] LABS: BAND % (MANUAL) 4 % (0.0-5.0); EOSINOPHILS % (MANUAL) 1 % (0-4); LYMPHOCYTES % (MANUAL) 21 % (16-48); METAMYELOCYTES % 1 % (0-0); MONOCYTES % (MANUAL) 10 % (0-11.0); MYELOCYTES % 1 % (0-0); NEUTROPHILS % (MANUAL) 62 (42-76)
[2018-10-15] MEDS: hydrALAZINE HCL 25 MG TABLET GT SCH (09:00)
[2018-10-15] MEDS: BACI/NEOM/POLY B OINT PKT 1 UDPKT PACKET TP SCH (09:00)
[2018-10-15] MEDS: METOPROLOL TARTRATE 50 MG TABLET GT SCH (09:00)
[2018-10-15] MEDS: HYDROGEN PEROXIDE 480 ML BOTTLE TP SCH (09:00)
--- NOTE | 2018-10-15 09:17 | NUR ---
RT NOTE: REC'D PT ON NOTED VENT SETTINGS PER MD. NO RESPIRATORY DISTRESS NOTED AT THIS TIME. TRACH TUBE CHECKED SECURE AND PATENT. SXD AND LAVAGE PT Q ROUND AND NEEDED. TXS GIVEN ORDERED WITH NO ADVERSE REACTIONS NOTED. SPARE TRACH AND AMBU BAG @ BEDSIDE. ALARMS CHECKED ON AND AUDIBLE. WILL CONTINUE TO MONITOR. Addendum: 10/15/18 at 0918 by LONA PAGAN RT Amended: Links added.
[2018-10-15] MEDS: ASCORBIC ACID 500 MG TABLET GT SCH (09:30)
[2018-10-15] MEDS: PROSTAT (PYXIS) 30 ML UDC GT SCH ×3 (09:30→17:00)
[2018-10-15] MEDS: ACIDOPHILUS/BULGARICUS 1 EACH TAB.CHEW GT SCH ×2 (09:30→17:00)
[2018-10-15] MEDS: METOCLOPRAMIDE HCL 10 MG/10 ML UDC GT SCH (09:30)
[2018-10-15] MEDS: VIT B CMPLX 3/FA/VIT C/BIOTIN 1 TAB TABLET GT SCH (09:30)
[2018-10-15] MEDS: ESOMEPRAZOLE MAG TRIHYDRATE 20 MG CAPSULE.DR GT SCH (09:30)
[2018-10-15] MEDS: POLYVINYL ALCOHOL 15 ML BOTTLE EACHEYE SCH (09:30)
[2018-10-15] MEDS: ACETAMINOPHEN 650 MG/20 ML UDC- SA PATIENTS-PAIN ONLY GT SCH (09:30)
[2018-10-15] MEDS: HEPARIN SODIUM, PORCINE 5000 UNITS/1 ML VIAL SQ SCH (09:30)
[2018-10-15] MEDS: INSULIN GLARGINE, 100 UNIT/ML CARTRIDGE SQ SCH (09:30)
[2018-10-15] MEDS: NYSTATIN/TRIAMCIN CREAM 15 GM TUBE TP SCH (10:00)
[2018-10-15] MEDS: HYDROGEL DRESSING 90 GM TUBE TP SCH (10:00)
[2018-10-15] MEDS: Z GUARD REMEDY 4 OZ OINT TP SCH (10:00)
[2018-10-15] MEDS: FAT EMULSION 20% 500 ML in PREMIX 1 EA IV SCH (14:00)
[2018-10-15] MEDS ORDERED: TPN BAG #36 IV PRN ×9 (14:00)
--- NOTE | 2018-10-15 14:05 | NUR ---
INTERDISCIPLINARY TEAM CONFERENCE (IDT) was held today. Resident's boyfriend John was unable to attend today's IDT meeting. Dr. Morejon and the interdisciplinary team reviewed the current plan of care in detail. Orders as well as treatment and medications were reviewed. Patient completed IV ATB for GT cellulitis, EGD and PEG placement was done on 10/04, newly inserted GT not being use for GT feeding due to leaking from the old GT stoma site. Patient continue to receive TPN and Lipid. Resident is edematous and missed her dialysis schedule due to hypotension. At this time, awaiting for Dr. Sung to assess patient for possible acute hospital transfer.
--- NOTE | 2018-10-15 15:00 | NUR ---
Resident went out for dialysis via [facility] transport per [facility] accompanied by 3 ambulance staff. Awake, no signs of distress. BP-104/60, per dialysis staff okay to transport pt. for treatment. Trach secured and midline. PEG tube intact and patent. Colostomy bag in place. Old GT site still draining greenish fluid.
--- NOTE | 2018-10-15 15:15 | NUR ---
Received a call from NED Swanson from [facility]. She said resident BP was low 80/30, unable to do dialysis treatment. Resident will be transferred to ER via [facility] transport for further eval and treatment due to dialysis not done since Thursday.
--- NOTE | 2018-10-15 17:00 | NUR ---
Report given to NED Harper ER department regarding condition of patient. Informed Leroy that Dr. Sung was notified this morning to assess patient's condition for possible transfer to acute due to generalized edema and dialysis center cannot complete treatment or pull more fluid due to hypotension, as a result dialysis has been rescheduled twice. Leroy said that patient will be admitted and he will call Dr. Sung. It was also mentioned to Leroy that patient has L upper arm abscess, no treatment order at this time, patient may need I and D. He said that they will not be able to do all of these interventions but will inform the floor where she will be admitted.
[2018-10-15] MEDS ORDERED: TPN ADD IV (17:01)
[2018-10-15] MEDS ORDERED: CLON0.2T GT (17:01)
[2018-10-15] MEDS ORDERED: METO5SOL2 GT (17:01)
[2018-10-15] MEDS ORDERED: VANC750P7 IV (17:01)
[2018-10-15] MEDS ORDERED: NEOM1PAC2 TP (17:01)
[2018-10-15] MEDS ORDERED: MIDO5TAB GT (17:01)
--- NOTE | 2018-10-15 17:39 | NUR ---
Spoke with John, resident's boyfriend informing him of patient's transfer to ER. He asked whether patient will return to subacute [facility], informed John that she will be admitted.
[2018-10-15] MEDS ORDERED: VANCOMYCIN HCL 0.75 GM in IV D5W 250 ML IV ONE (21:00)
[2018-10-16] MEDS ORDERED: VANCOMYCIN HCL 0.75 GM in IV D5W 250 ML IV SCH (21:00)
[2018-10-17 08:14] LABS: CALCIUM, SERUM 8.6 mg/dL (8.5-10.1); MAGNESIUM 1.9 mg/dL (1.8-2.4); POTASSIUM 3.6 mmol/L (3.5-5.1)
[2018-10-25 07:59] VITALS: BP 92/49
== END 2018-10-15 21:00 | disposition short-term general hospital (02) | DRG 951 ==
LOC: SA
PROVIDERS: ADMIT Internal Medicine Nephrology; ATTEND Internal Medicine Nephrology
PROC: 5A1955Z Respiratory Ventilation, Greater than 96 Consecutive Hours (ICD-10-PCS; principal; 2018-05-11)
PROC: 0DP63UZ Removal of Feeding Device from Stomach, Percutaneous Approach (ICD-10-PCS; 2018-08-06)
PROC: 0JBJ0ZZ Excision of Right Hand Subcutaneous Tissue and Fascia, Open Approach (ICD-10-PCS; 2018-08-06)
PROC: 0DH63UZ Insertion of Feeding Device into Stomach, Percutaneous Approach (ICD-10-PCS; 2018-08-06)
PROC: 02HV33Z Insertion of Infusion Device into Superior Vena Cava, Percutaneous Approach (ICD-10-PCS; 2018-10-12)
PROC: B548ZZA Ultrasonography of Superior Vena Cava, Guidance (ICD-10-PCS; 2018-10-12)
DX: J96.11 Chronic respiratory failure with hypoxia (principal); G93.1 Anoxic brain damage, not elsewhere classified; K31.6 Fistula of stomach and duodenum; I13.2 Hypertensive heart and chronic kidney disease with heart failure and with stage 5 chronic kidney disease, or end stage renal disease; Z99.11 Dependence on respirator [ventilator] status; L89.159 Pressure ulcer of sacral region, unspecified stage; N18.6 End stage renal disease; R13.10 Dysphagia, unspecified; E11.52 Type 2 diabetes mellitus with diabetic peripheral angiopathy with gangrene; E87.2 Acidosis; E11.22 Type 2 diabetes mellitus with diabetic chronic kidney disease; E66.01 Morbid (severe) obesity due to excess calories; Z87.440 Personal history of urinary (tract) infections; Z89.511 Acquired absence of right leg below knee; Z89.612 Acquired absence of left leg above knee; Z90.3 Acquired absence of stomach [part of]; Z99.2 Dependence on renal dialysis; R62.7 Adult failure to thrive; N25.81 Secondary hyperparathyroidism of renal origin; D63.8 Anemia in other chronic diseases classified elsewhere; E11.51 Type 2 diabetes mellitus with diabetic peripheral angiopathy without gangrene; I50.9 Heart failure, unspecified; J98.11 Atelectasis; M89.8X9 Other specified disorders of bone, unspecified site; L89.899 Pressure ulcer of other site, unspecified stage; L08.9 Local infection of the skin and subcutaneous tissue, unspecified; M84.422A Pathological fracture, left humerus, initial encounter for fracture; E21.3 Hyperparathyroidism, unspecified; D62 Acute posthemorrhagic anemia; L02.611 Cutaneous abscess of right foot; S91.301A Unspecified open wound, right foot, initial encounter; X58.XXXA Exposure to other specified factors, initial encounter; Y92.9 Unspecified place or not applicable; K94.22 Gastrostomy infection; L03.311 Cellulitis of abdominal wall; Y83.3 Surgical operation with formation of external stoma as the cause of abnormal reaction of the patient, or of later complication, without mention of misadventure at the time of the procedure; Y82.9 Unspecified medical devices associated with adverse incidents; Y92.89 Other specified places as the place of occurrence of the external cause; S61.200A Unspecified open wound of right index finger without damage to nail, initial encounter; L02.211 Cutaneous abscess of abdominal wall; B95.7 Other staphylococcus as the cause of diseases classified elsewhere; K94.23 Gastrostomy malfunction
CPT/HCPCS: 31720; 36415; 36569; 43246; 71045-TC; 74018; 76882; 80048-TC; 80053-TC; 80202-TC; 82962-TC; 83735-TC; 84100-TC; 84478-TC; 84702-TC; 85025-TC; 86580-TC; 86850-TC; 87040-TC; 87070-TC; 93930-TC; 94003-TC; 94640-TC; 94760-TC; 94762-TC; 94799-TC; 99082-TC; A4216; A4623; A6248; A6253; A6402; A7526; C1751; C9113; J0690; J1644; J1815; J2185; J2543; J2704; J3370; J3475; J3480; J3490; J7030; J7042; J7050; J7060; J8597; Q0163; Q9963; Q9967

== ENCOUNTER 2018-07-04 15:33 | Emergency (ER) | payer MEDICAID ==
[2018-07-04] MEDS ORDERED: ACID1TAB12 GT (16:14)
[2018-07-04] MEDS ORDERED: SEVE0.8P3 GT (16:14)
[2018-07-04] MEDS ORDERED: MAG30ORA GT (16:14)
[2018-07-04] MEDS ORDERED: GEL100GE TD (16:14)
[2018-07-04] MEDS ORDERED: IV NS 0.9% 1,000 ML IV PRN ×2 (16:30)
[2018-07-04 16:54] LABS: BASOPHILS # (AUTO) 0.1 /CMM (0.0-0.2); BASOPHILS % (AUTO) 0.6 % (0.0-2.0); HEMATOCRIT 29 % (33-45); HEMOGLOBIN 9.4 g/dL (11.5-14.8); LYMPHOCYTES # (AUTO) 1.1 /CMM (0.8-4.8); LYMPHOCYTES % (AUTO) 9.1 % (20.0-44.0); MEAN CORPUSCULAR HGB CONC 33 g/dl (31.0-36.0); MEAN CORPUSCULAR VOLUME 90 fL (82-100); MONOCYTES # (AUTO) 0.8 /CMM (0.1-1.30); MONOCYTES % (AUTO) 6.8 % (2.0-12.0); NEUTROPHILS # (AUTO) 9.7 /CMM (1.8-8.9); NEUTROPHILS % (AUTO) 82.5 % (43.0-81.0); PLATELET COUNT (AUTO) 163 /CMM (150-450); RED BLOOD CELL COUNT(AUTO) 3.19 MIL/uL (4.0-5.2); WHITE BLOOD COUNT (AUTO) 11.8 K/uL (4.3-11.0)
[2018-07-04] MEDS ORDERED: IV NS 0.9% 500 ML IV ONE (17:00)
--- NOTE | 2018-07-04 17:00 | NUR ---
patient presented to the ER from sub acute [facility] d/t bp low, on vent and trach, GT intact, RFA shunt with dressing intact, no bleeding noted, colostomy noted with small amount of soft BM. connefcted to the monitor and pulse ox. kept comfortable, will continue to monitor accordingly.
[2018-07-04 17:44] LABS: ALBUMIN 2.8 g/dL (3.4-5.0); BILIRUBIN,DIRECT 0.1 mg/dL (0.0-0.2); BILIRUBIN,TOTAL 0.3 mg/dL (0.2-1.0); TOTAL PROTEIN, SERUM 7.7 g/dL (6.4-8.2)
[2018-07-04 18:01] LABS: THYROID STIMULATING HORMONE 3.16 uIU/mL (0.358-3.74)
--- NOTE | 2018-07-04 18:17 | NUR ---
RT RECD PT TRACHED FROM [facility]AC[facility] FOR LOW BP. TRACH INTACT AND SECURED ON MECH VENT CESARIO ORDERED SETTING BAG AND MASK AT HOB VENT PUGGED IN RED OUTLET NO RESP DISTRESS WILL CONT TO MONITOR
--- NOTE | 2018-07-04 19:30 | NUR ---
UNABLE TO OBTAIN ORTHOSTATIC VITALS D/T PT PATIENT CONDITION
--- NOTE | 2018-07-04 19:32 | NUR ---
endorsed to xin MARINO for cheko.
--- NOTE | 2018-07-04 21:12 | NUR ---
RADIOLOGY AT BEDSIDE FOR XRAY
--- NOTE | 2018-07-04 21:21 | NUR ---
RT AT BEDSIDE
--- NOTE | 2018-07-04 21:59 | NUR ---
REPORT GIVEN TO NED ROJAS FOR SOURAV
[2018-07-05 01:29] VITALS: BP 167/55
== END 2018-07-05 01:29 | disposition home or self-care (01) ==
LOC: ER 15:39
DX: E11.22 Type 2 diabetes mellitus with diabetic chronic kidney disease (principal); I12.0 Hypertensive chronic kidney disease with stage 5 chronic kidney disease or end stage renal disease; N18.6 End stage renal disease; E86.0 Dehydration; I45.10 Unspecified right bundle-branch block; G93.1 Anoxic brain damage, not elsewhere classified; Z93.3 Colostomy status; Z93.1 Gastrostomy status; Z98.890 Other specified postprocedural states; Z79.4 Long term (current) use of insulin
CPT/HCPCS: 36415; 71045; 80048; 80076; 82962; 83605; 84443; 84484; 84702; 85025; 85730; 87040 ×2; 93005; 99284; J7040

== ENCOUNTER 2018-10-07 14:10 | Emergency (ER) | payer MEDICAID ==
[~2018-10-07] VITALS: Ht 147.3 cm; Wt 81.6 kg
[~2018-10-07 14:10] MED LIST changes: +ACID1TAB12 GT; -ACID1TAB14 GT; -CEFT1VIA15 IV; +GEL100GE TD; +MAG30ORA GT; -POVI480S2 TP; +SEVE0.8P3 GT; -SEVE800T8 GT
--- NOTE | 2018-10-07 14:10 | NUR ---
PT BBIRA FROM DIALYSIS PT MORE ALTERED THAN USUAL, PT NON VERBAL, PT ON MONTIOR, VSS, PENDING MD MARTÍNEZ
--- NOTE | 2018-10-07 14:23 | NUR ---
PT PLACED INTO ESPRIT VENT VIA SHILEY #[id number] WITH PARAMETERS BELOW ORDER: AC 12 VT 500 ML 50% FIO2 PEEP +5 BREATH SOUNDS CLEAR BILATERAL, SXN SCANT AMNT WHITISH SECRETIONS. VANI @ BEDSIDE. Addendum: 10/07/18 at 1441 by CHAR JEFFERSON RT Amended: Links added.
[2018-10-07 14:52] LABS: BASOPHILS % (AUTO) 0.4 % (0.0-2.0); EOSINOPHILS % (AUTO) 0.2 % (0.0-6.0); HEMATOCRIT 28 % (33-45); HEMOGLOBIN 8.9 g/dL (11.5-14.8); LYMPHOCYTES # (AUTO) 0.3 /CMM (0.8-4.8); LYMPHOCYTES % (AUTO) 6.5 % (20.0-44.0); MEAN CORPUSCULAR HGB CONC 32 g/dl (31.0-36.0); MEAN CORPUSCULAR VOLUME 84 fL (82-100); MONOCYTES # (AUTO) 0.2 /CMM (0.1-1.30); MONOCYTES % (AUTO) 3.8 % (2.0-12.0); NEUTROPHILS # (AUTO) 4.4 /CMM (1.8-8.9); NEUTROPHILS % (AUTO) 89.1 % (43.0-81.0); PLATELET COUNT (AUTO) 127 /CMM (150-450); RED BLOOD CELL COUNT(AUTO) 3.32 MIL/uL (4.0-5.2); WHITE BLOOD COUNT (AUTO) 4.9 K/uL (4.3-11.0)
[2018-10-07] MEDS: IV NS 0.9% 1,000 ML BAG IV ONE (14:55)
--- NOTE | 2018-10-07 15:00 | NUR ---
ADDENDUM: Intravenous End Time Documentation: Norepinephrine 16 mg/500 D5W : start time: 1500 ; end time: 1840 : IV site: LFA # 20 Port #1 Infusing while transfer to floor - ICU at 184
[2018-10-07 15:14] LABS: ALANINE AMINOTRANSFERASE 18 U/L (12-78); ALBUMIN 2.2 g/dL (3.4-5.0); ALKALINE PHOSPHATASE 233 U/L (46-116); ASPARTATE AMINOTRANSFERASE 28 U/L (15-37); BILIRUBIN,DIRECT 0.1 mg/dL (0.0-0.2); BILIRUBIN,TOTAL 0.4 mg/dL (0.2-1.0); CALCIUM, SERUM 8.5 mg/dL (8.5-10.1); CARBON DIOXIDE 30 mmol/L (21-32); CHLORIDE 102 mmol/L (98-107); CREATININE 2.1 mg/dL (0.6-1.3); GLUCOSE 142 mg/dL (74-106); SODIUM SERUM 139 mmol/L (136-145); TOTAL PROTEIN, SERUM 6.7 g/dL (6.4-8.2); UREA NITROGEN, BLOOD 33 mg/dL (7-18)
[2018-10-07 15:16] LABS: POTASSIUM 2.5 mmol/L (3.5-5.1)
[2018-10-07] MEDS ORDERED: HYDR-4076 PO (15:32)
[2018-10-07] MEDS ORDERED: SEVE800T8 GT (15:33)
[2018-10-07] MEDS: PIPERACILLIN /TAZOBACTAM 3.375 G in IV D5W 50 ML IV ONE (15:59)
[2018-10-07] MEDS: NOREPINEPHRINE 16 MG in IV D5W 500 ML IV PRN (16:00)
[2018-10-07 16:34] VITALS: BP 166/77
[2018-10-07 17:26] VITALS: BP 101/52
--- NOTE | 2018-10-07 17:26 | NUR ---
SPOKE TO MEETA RN AT S/A FLOOR, PT IS D/C BACK TO FLOOR PER DR. CAMPO'S ORDERS, PER DR POE. PT LEFT IS IN STABLE CONDITION, PT WILL BE TRANSPORTED BACK TO FLOOR.
--- NOTE | 2018-10-07 18:04 | NUR ---
PT. TRANSFERRED FROM ICU #5 TO SUB ACUTE 275 BED 2 WITH AC 12, VT 500, FIO2 40%, PEEP +5 PT. SPO2 97% TO 98% ON 40% FIO2 HR 78 - 81 BPM Addendum: 10/07/18 at 1806 by CHAR JEFFERSON RT Amended: Links added.
== END 2018-10-07 18:42 ==
LOC: ER 14:12 → UNDOADMIN 15:42 → ICU 15:42 → ER 18:42
DX: I95.9 Hypotension, unspecified (principal); R41.82 Altered mental status, unspecified; E11.22 Type 2 diabetes mellitus with diabetic chronic kidney disease; I12.0 Hypertensive chronic kidney disease with stage 5 chronic kidney disease or end stage renal disease; N18.6 End stage renal disease; R60.0 Localized edema; I44.0 Atrioventricular block, first degree; J96.10 Chronic respiratory failure, unspecified whether with hypoxia or hypercapnia; G93.1 Anoxic brain damage, not elsewhere classified; G93.40 Encephalopathy, unspecified; Z99.11 Dependence on respirator [ventilator] status; Z93.0 Tracheostomy status; Z99.2 Dependence on renal dialysis; Z93.3 Colostomy status; Z93.1 Gastrostomy status; Z89.612 Acquired absence of left leg above knee; Z79.4 Long term (current) use of insulin
CPT/HCPCS: 36415; 70450; 71045; 80048; 80076; 83605 ×2; 84484; 85025; 85730; 87040 ×2; 87077; 87081; 87186; 93005; 94002; 96365; 96366; 96368; 99291; J2543; J7050; J7060 ×2

== ENCOUNTER 2018-10-15 16:17 | Inpatient (IN) | payer MEDICAID ==
[2018-10-15] VITALS (17 sets, daily range): BP systolic 55–165; BP diastolic 23–92
[~2018-10-15] VITALS: Ht 152.4 cm; Wt 90.3 kg
[~2018-10-15 16:17] MED LIST changes: +HYDR-4076 PO; -HYDR-4077 GT; -SEVE0.8P3 GT; +SEVE800T8 GT
[2018-10-15] MEDS ORDERED: CEFEPIME 1 GM in IV D5W 50 ML IV ONE (16:30)
[2018-10-15] MEDS ORDERED: VANCOMYCIN 1 GM in IV D5W 250 ML IV ONE (16:30)
[2018-10-15 16:57] LABS: BASOPHILS % (AUTO) 0.4 % (0.0-2.0); HEMATOCRIT 25 % (33-45); HEMOGLOBIN 7.5 g/dL (11.5-14.8); LYMPHOCYTES # (AUTO) 1.4 /CMM (0.8-4.8); MEAN CORPUSCULAR HGB CONC 31 g/dl (31.0-36.0); MEAN CORPUSCULAR VOLUME 84 fL (82-100); MONOCYTES # (AUTO) 0.6 /CMM (0.1-1.30); MONOCYTES % (AUTO) 6.6 % (2.0-12.0); NEUTROPHILS # (AUTO) 7.3 /CMM (1.8-8.9); PLATELET COUNT (AUTO) 98 /CMM (150-450); RED BLOOD CELL COUNT(AUTO) 2.91 MIL/uL (4.0-5.2); WHITE BLOOD COUNT (AUTO) 9.4 K/uL (4.3-11.0)
[2018-10-15] MEDS ORDERED: CLON0.2T GT (17:01)
[2018-10-15] MEDS ORDERED: VANC750P7 IV (17:01)
[2018-10-15] MEDS ORDERED: METO5SOL2 GT (17:01)
[2018-10-15] MEDS ORDERED: TPN ADD IV (17:01)
[2018-10-15] MEDS ORDERED: MIDO5TAB GT (17:01)
[2018-10-15] MEDS ORDERED: NEOM1PAC2 TP (17:01)
[2018-10-15 17:12] LABS: ALANINE AMINOTRANSFERASE 8 U/L (12-78); ALBUMIN 1.8 g/dL (3.4-5.0); ALKALINE PHOSPHATASE 658 U/L (46-116); ASPARTATE AMINOTRANSFERASE 17 U/L (15-37); BILIRUBIN,DIRECT 0.1 mg/dL (0.0-0.2); BILIRUBIN,TOTAL 0.4 mg/dL (0.2-1.0); CALCIUM, SERUM 8.6 mg/dL (8.5-10.1); CARBON DIOXIDE 23 mmol/L (21-32); CHLORIDE 102 mmol/L (98-107); CREATININE 3.6 mg/dL (0.6-1.3); GLUCOSE 188 mg/dL (74-106); POTASSIUM 3.9 mmol/L (3.5-5.1); SODIUM SERUM 138 mmol/L (136-145); TOTAL PROTEIN, SERUM 6.8 g/dL (6.4-8.2)
[2018-10-15 17:17] LABS: UREA NITROGEN, BLOOD 92 mg/dL (7-18)
[2018-10-15] MEDS ORDERED: NOREPINEPHRINE 8 MG in IV D5W 500 ML IV PRN (17:30)
[2018-10-15 17:56] LABS: BAND % (MANUAL) 4 % (0.0-5.0); EOSINOPHILS % (MANUAL) 1 % (0-4); LYMPHOCYTES % (MANUAL) 14 % (16-48); METAMYELOCYTES % 1 % (0-0); MONOCYTES % (MANUAL) 8 % (0-11.0); MYELOCYTES % 1 % (0-0); NEUTROPHILS % (MANUAL) 71 (42-76)
[2018-10-15] MEDS ORDERED: HYDROCODONE/APAP 5/325MG 1 EACH TABLET GT PRN ×2 (22:00)
[2018-10-15] MEDS ORDERED: MAGNESIUM HYDROXIDE 30 ML UDC PO PRN (22:00)
[2018-10-15] MEDS ORDERED: MISCELLANEOUS MED 1 EA EA GT PRN (22:00)
[2018-10-15] MEDS ORDERED: MAG HYDROX/AL HYDROX/SIMETH 30 ML UDC PO PRN (22:00)
[2018-10-15] MEDS ORDERED: HYDROGEN PEROXIDE 480 ML BOTTLE TP SCH (22:00)
[2018-10-15] MEDS ORDERED: ZOLPIDEM TARTRATE 5 MG TABLET PO PRN (22:00)
[2018-10-15] MEDS ORDERED: ONDANSETRON HCL/PF 4 MG/2 ML VIAL IVP PRN (22:00)
[2018-10-15] MEDS ORDERED: INSULIN REGULAR, HUMAN 100 UNIT/ML 3 ML VIAL SQ PRN (22:00)
[2018-10-15] MEDS ORDERED: DEXTROSE 50%-WATER 50 ML DISP.SYRIN IV PRN ×2 (22:00→23:30)
[2018-10-15] MEDS ORDERED: CLONIDINE HCL 0.2 MG TABLET GT PRN (22:00)
[2018-10-15] MEDS ORDERED: METOPROLOL TARTRATE 50 MG TABLET GT SCH (22:00)
[2018-10-15 22:33] LABS: BASOPHILS % (AUTO) 0.2 % (0.0-2.0); EOSINOPHILS % (AUTO) 0.7 % (0.0-6.0); HEMATOCRIT 26 % (33-45); HEMOGLOBIN 8.1 g/dL (11.5-14.8); LYMPHOCYTES # (AUTO) 1.2 /CMM (0.8-4.8); MEAN CORPUSCULAR HGB CONC 31 g/dl (31.0-36.0); MEAN CORPUSCULAR VOLUME 84 fL (82-100); MONOCYTES # (AUTO) 0.7 /CMM (0.1-1.30); MONOCYTES % (AUTO) 6.4 % (2.0-12.0); NEUTROPHILS # (AUTO) 9.1 /CMM (1.8-8.9); NEUTROPHILS % (AUTO) 81.7 % (43.0-81.0); PLATELET COUNT (AUTO) 102 /CMM (150-450); WHITE BLOOD COUNT (AUTO) 11.1 K/uL (4.3-11.0)
[2018-10-15 23:00] LABS: BAND % (MANUAL) 3 % (0.0-5.0); EOSINOPHILS % (MANUAL) 1 % (0-4); LYMPHOCYTES % (MANUAL) 22 % (16-48); METAMYELOCYTES % 1 % (0-0); MONOCYTES % (MANUAL) 5 % (0-11.0); NEUTROPHILS % (MANUAL) 68 (42-76)
[2018-10-15] MEDS ORDERED: LACTULOSE 10 G/15 ML UDC (PYXIS) GT PRN (23:30)
[2018-10-15] MEDS: NOREPINEPHRINE 16 MG in IV D5W 500 ML IV PRN (23:32)
[2018-10-15] MEDS: BLOOD SUGAR DIAGNOSTIC 1 EACH STRIP IN SCH (23:33)
[2018-10-15] MEDS: INSULIN REGULAR, HUMAN 100 UNIT/ML 3 ML VIAL SQ PRN (23:38)
[2018-10-16] VITALS (101 sets, daily range): BP systolic 63–160; BP diastolic 34–124
[2018-10-16] MEDS ORDERED: BLOOD SUGAR DIAGNOSTIC 1 EACH STRIP IN SCH
[2018-10-16] MEDS: IPRATROPIUM NEB FS 0.5 MG/2.5 ML AMPUL.NEB IH SCH ×4 (01:53→20:00)
[2018-10-16 05:11] LABS: BASOPHILS % (AUTO) 0.3 % (0.0-2.0); EOSINOPHILS % (AUTO) 1.2 % (0.0-6.0); HEMATOCRIT 25 % (33-45); HEMOGLOBIN 7.8 g/dL (11.5-14.8); LYMPHOCYTES # (AUTO) 1.2 /CMM (0.8-4.8); LYMPHOCYTES % (AUTO) 11.6 % (20.0-44.0); MEAN CORPUSCULAR HGB CONC 31 g/dl (31.0-36.0); MEAN CORPUSCULAR VOLUME 85 fL (82-100); MONOCYTES # (AUTO) 0.8 /CMM (0.1-1.30); NEUTROPHILS # (AUTO) 8.1 /CMM (1.8-8.9); NEUTROPHILS % (AUTO) 78.9 % (43.0-81.0); PLATELET COUNT (AUTO) 101 /CMM (150-450); RED BLOOD CELL COUNT(AUTO) 2.94 MIL/uL (4.0-5.2); WHITE BLOOD COUNT (AUTO) 10.3 K/uL (4.3-11.0)
[2018-10-16] MEDS: BLOOD SUGAR DIAGNOSTIC 1 EACH STRIP IN SCH ×4 (05:20→23:05)
[2018-10-16 05:27] LABS: CALCIUM, SERUM 8.8 mg/dL (8.5-10.1); CREATININE 3.7 mg/dL (0.6-1.3); MAGNESIUM 2.1 mg/dL (1.8-2.4); PHOSPHORUS 4.1 mg/dL (2.5-4.9); POTASSIUM 4.1 mmol/L (3.5-5.1)
[2018-10-16 05:55] LABS: BAND % (MANUAL) 2 % (0.0-5.0); EOSINOPHILS % (MANUAL) 4 % (0-4); LYMPHOCYTES % (MANUAL) 20 % (16-48); METAMYELOCYTES % 1 % (0-0); MONOCYTES % (MANUAL) 8 % (0-11.0); MYELOCYTES % 1 % (0-0); NEUTROPHILS % (MANUAL) 64 (42-76)
[2018-10-16] MEDS ORDERED: FEE TPN 1 MIN EA MC ONE (08:18)
[2018-10-16] MEDS ORDERED: TPN/PPN PER PHARMACY XX PRN (08:30)
[2018-10-16] MEDS ORDERED: TPN BAG #1 IV PRN ×9 (08:30)
[2018-10-16] MEDS ORDERED: HYDROGEL DRESSING 90 GM TUBE TP SCH ×2 (09:00→10:12)
[2018-10-16] MEDS ORDERED: Z GUARD REMEDY 2 OZ OINT TP SCH (09:00)
[2018-10-16] MEDS ORDERED: Medication Not On Formulary EA (Acetaminophen 650 MG) GT SCH (09:00)
[2018-10-16] MEDS ORDERED: BACI/NEOM/POLY B OINT PKT 1 UDPKT PACKET TP SCH (09:00)
[2018-10-16] MEDS: Z GUARD REMEDY 2 OZ OINT TP PRN (09:05)
[2018-10-16] MEDS: METOCLOPRAMIDE HCL 10 MG/10 ML UDC GT SCH ×2 (09:44→21:42)
[2018-10-16] MEDS: MIDODRINE HCL (5MG) 5 MG TABLET GT SCH (09:44)
[2018-10-16] MEDS: ACIDOPHILUS/BULGARICUS 1 EACH TAB.CHEW GT SCH ×2 (09:44→16:21)
[2018-10-16] MEDS: ASCORBIC ACID 500 MG TABLET GT SCH (09:45)
[2018-10-16] MEDS: VIT B CMPLX 3/FA/VIT C/BIOTIN 1 TAB TABLET GT SCH (09:54)
[2018-10-16] MEDS: PANTOPRAZOLE 40 MG/PACK PACK GT SCH ×2 (09:54→21:41)
[2018-10-16] MEDS ORDERED: VANCOMYCIN 500 MG in IV D5W 100 ML IV PRN (10:00)
[2018-10-16] MEDS ORDERED: POLYVINYL ALCOHOL/POVIDONE 0.4 ML DROPERETTE EACHEYE PRN (10:00)
[2018-10-16] MEDS: ACETAMINOPHEN 650 MG/20.3 ML UDC GT SCH ×2 (10:49→21:41)
[2018-10-16] MEDS: NEOMY SULF/BACITRAC ZN/POLY 15 GM TUBE TP SCH ×2 (10:50→21:47)
[2018-10-16] MEDS: POLYVINYL ALCOHOL 15 ML BOTTLE EACHEYE SCH ×2 (10:50→21:48)
[2018-10-16] MEDS: HYDROGEN PEROXIDE 480 ML BOTTLE TP SCH ×2 (10:51→21:48)
[2018-10-16] MEDS: HYDROGEL DRESSING 90 GM TUBE TP SCH ×2 (10:51→21:50)
[2018-10-16] MEDS: INSULIN GLARGINE, 100 UNIT/ML CARTRIDGE SQ SCH ×2 (11:09→23:11)
[2018-10-16] MEDS: HEPARIN SODIUM, PORCINE 5000 UNITS/1 ML VIAL SQ SCH ×2 (11:13→21:44)
[2018-10-16 12:38] LABS: ABG BASE EXCESS 1.1 mmol/L; ABG OXYGEN SATURATION 96.7 % (92.0-98.5); ABG PH 7.467 (7.350-7.450); ABG PO2 89.5 mmHg (75.0-100.0); AaDO2 155.5 mmHg; COHb 1.8 % (0.5-1.5); MetHb 0.4 % (0.0-1.5); O2Hb 94.6 % (94.0-97.0); SITE, ABG Left Brachial; VENT MODE, BG A/C; VT, ABG 500 mL
[2018-10-16] MEDS: ALBUTEROL FS 2.5 MG/0.5 ML VIAL.NEB NEB SCH ×2 (13:11→20:00)
[2018-10-16] MEDS ORDERED: FEE PK DOSING 1 MIN EA MC ONE (13:39)
[2018-10-16] MEDS: NOREPINEPHRINE 16 MG in IV D5W 500 ML IV PRN (13:42)
[2018-10-16] MEDS: PROSOURCE / PROSTAT (PYXIS) 30 ML UDC GT SCH ×2 (13:45→16:21)
[2018-10-16] MEDS: FAT EMULSION 20% 500 ML in PREMIX 1 EA IV SCH (13:46)
[2018-10-16] MEDS ORDERED: DOSE PER PHARMACY (MD SPECIFY MEDICATION) 1 EA XX PRN (16:00)
[2018-10-16] MEDS: MEROPENEM 500 MG in IV NS 0.9% 50 ML IV SCH (16:55)
[2018-10-16] MEDS: INSULIN REGULAR, HUMAN 100 UNIT/ML 3 ML VIAL SQ PRN ×2 (17:18→23:12)
[2018-10-16] MEDS: Z GUARD REMEDY 2 OZ OINT TP SCH (21:49)
[2018-10-16] MEDS ORDERED: INSULIN GLARGINE, 100 UNIT/ML CARTRIDGE SQ SCH (22:00)
[2018-10-17] VITALS (65 sets, daily range): BP systolic 76–145; BP diastolic 27–109
[2018-10-17] MEDS: IPRATROPIUM NEB FS 0.5 MG/2.5 ML AMPUL.NEB IH SCH ×4 (01:27→19:52)
[2018-10-17] MEDS: ALBUTEROL FS 2.5 MG/0.5 ML VIAL.NEB NEB SCH ×4 (01:27→19:52)
[2018-10-17] MEDS: MEROPENEM 500 MG in IV NS 0.9% 50 ML IV SCH ×2 (05:36→16:01)
[2018-10-17] MEDS: BLOOD SUGAR DIAGNOSTIC 1 EACH STRIP IN SCH ×4 (05:45→23:34)
[2018-10-17] MEDS: INSULIN REGULAR, HUMAN 100 UNIT/ML 3 ML VIAL SQ PRN ×4 (05:50→23:35)
[2018-10-17] MEDS ORDERED: TPN BAG #2 IV PRN ×7 (07:00)
[2018-10-17] MEDS: POLYVINYL ALCOHOL 15 ML BOTTLE EACHEYE SCH ×2 (08:06→21:17)
[2018-10-17] MEDS: HYDROGEN PEROXIDE 480 ML BOTTLE TP SCH ×2 (08:07→21:15)
[2018-10-17] MEDS: NEOMY SULF/BACITRAC ZN/POLY 15 GM TUBE TP SCH ×2 (08:07→21:17)
[2018-10-17] MEDS: Z GUARD REMEDY 2 OZ OINT TP SCH ×2 (08:08→21:16)
[2018-10-17] MEDS: INSULIN GLARGINE, 100 UNIT/ML CARTRIDGE SQ SCH ×2 (08:15→21:32)
[2018-10-17] MEDS: HYDROGEL DRESSING 90 GM TUBE TP SCH ×2 (08:22→21:16)
[2018-10-17] MEDS: METOCLOPRAMIDE HCL 10 MG/10 ML UDC GT SCH ×2 (08:43→21:14)
[2018-10-17] MEDS: ACIDOPHILUS/BULGARICUS 1 EACH TAB.CHEW GT SCH ×2 (08:43→16:01)
[2018-10-17] MEDS: ACETAMINOPHEN 650 MG/20.3 ML UDC GT SCH ×2 (08:43→21:14)
[2018-10-17] MEDS: PROSOURCE / PROSTAT (PYXIS) 30 ML UDC GT SCH ×3 (08:44→16:02)
[2018-10-17] MEDS: PANTOPRAZOLE 40 MG/PACK PACK GT SCH ×2 (08:44→21:14)
[2018-10-17] MEDS: VIT B CMPLX 3/FA/VIT C/BIOTIN 1 TAB TABLET GT SCH (08:44)
[2018-10-17] MEDS: ASCORBIC ACID 500 MG TABLET GT SCH (08:44)
[2018-10-17] MEDS: HEPARIN SODIUM, PORCINE 5000 UNITS/1 ML VIAL SQ SCH ×2 (08:46→21:15)
[2018-10-17] MEDS ORDERED: METOPROLOL TARTRATE 50 MG TABLET GT SCH (09:00)
[2018-10-17] MEDS ORDERED: hydrALAZINE HCL 25 MG TABLET GT SCH (09:00)
[2018-10-17] MEDS ORDERED: TPN BAG #3 IV PRN ×9 (11:30)
[2018-10-17] MEDS: HYDROCORTISONE SOD SUCCINATE 100 MG/2 ML VIAL IV SCH ×2 (11:46→16:02)
[2018-10-17] MEDS: Z GUARD REMEDY 2 OZ OINT TP PRN (21:16)
[2018-10-18] VITALS (8 sets, daily range): BP systolic 120–131; BP diastolic 41–65
[2018-10-18] MEDS: ALBUTEROL FS 2.5 MG/0.5 ML VIAL.NEB NEB SCH ×4 (00:38→19:30)
[2018-10-18] MEDS: IPRATROPIUM NEB FS 0.5 MG/2.5 ML AMPUL.NEB IH SCH ×4 (00:38→19:30)
[2018-10-18] MEDS: MEROPENEM 500 MG in IV NS 0.9% 50 ML IV SCH ×2 (05:30→16:58)
[2018-10-18] MEDS: BLOOD SUGAR DIAGNOSTIC 1 EACH STRIP IN SCH ×4 (05:30→23:21)
[2018-10-18] MEDS: INSULIN REGULAR, HUMAN 100 UNIT/ML 3 ML VIAL SQ PRN ×4 (05:40→23:28)
[2018-10-18 07:05] LABS: BASOPHILS % (AUTO) 0.1 % (0.0-2.0); HEMATOCRIT 24 % (33-45); HEMOGLOBIN 7.2 g/dL (11.5-14.8); LYMPHOCYTES % (AUTO) 7.4 % (20.0-44.0); MEAN CORPUSCULAR HGB CONC 30 g/dl (31.0-36.0); MEAN CORPUSCULAR VOLUME 86 fL (82-100); MONOCYTES % (AUTO) 7.3 % (2.0-12.0); NEUTROPHILS # (AUTO) 11.4 /CMM (1.8-8.9); NEUTROPHILS % (AUTO) 85.2 % (43.0-81.0); PLATELET COUNT (AUTO) 99 /CMM (150-450); RED BLOOD CELL COUNT(AUTO) 2.79 MIL/uL (4.0-5.2); WHITE BLOOD COUNT (AUTO) 13.4 K/uL (4.3-11.0)
[2018-10-18 07:14] LABS: ALBUMIN 1.8 g/dL (3.4-5.0); BILIRUBIN,TOTAL 0.4 mg/dL (0.2-1.0); CALCIUM, SERUM 8.2 mg/dL (8.5-10.1); CREATININE 3.5 mg/dL (0.6-1.3); PHOSPHORUS 4.4 mg/dL (2.5-4.9); TOTAL PROTEIN, SERUM 6.9 g/dL (6.4-8.2)
[2018-10-18 08:19] LABS: BAND % (MANUAL) 3 % (0.0-5.0); LYMPHOCYTES % (MANUAL) 4 % (16-48); MONOCYTES % (MANUAL) 8 % (0-11.0); MYELOCYTES % 3 % (0-0); NEUTROPHILS % (MANUAL) 82 (42-76)
[2018-10-18] MEDS: METOCLOPRAMIDE HCL 10 MG/10 ML UDC GT SCH ×2 (09:23→21:11)
[2018-10-18] MEDS: ACETAMINOPHEN 650 MG/20.3 ML UDC GT SCH ×2 (09:23→21:11)
[2018-10-18] MEDS: HYDROCORTISONE SOD SUCCINATE 100 MG/2 ML VIAL IV SCH ×3 (09:23→16:58)
[2018-10-18] MEDS: VIT B CMPLX 3/FA/VIT C/BIOTIN 1 TAB TABLET GT SCH (09:23)
[2018-10-18] MEDS: HEPARIN SODIUM, PORCINE 5000 UNITS/1 ML VIAL SQ SCH ×2 (09:24→21:12)
[2018-10-18] MEDS: ASCORBIC ACID 500 MG TABLET GT SCH (09:24)
[2018-10-18] MEDS: ACIDOPHILUS/BULGARICUS 1 EACH TAB.CHEW GT SCH ×2 (09:25→16:58)
[2018-10-18] MEDS: PANTOPRAZOLE 40 MG/PACK PACK GT SCH ×2 (09:25→21:11)
[2018-10-18] MEDS: INSULIN GLARGINE, 100 UNIT/ML CARTRIDGE SQ SCH ×2 (09:28→21:26)
[2018-10-18] MEDS: POLYVINYL ALCOHOL 15 ML BOTTLE EACHEYE SCH ×2 (09:28→21:27)
[2018-10-18] MEDS: NEOMY SULF/BACITRAC ZN/POLY 15 GM TUBE TP SCH ×2 (09:29→21:26)
[2018-10-18] MEDS: HYDROGEN PEROXIDE 480 ML BOTTLE TP SCH ×2 (09:29→21:26)
[2018-10-18] MEDS: HYDROGEL DRESSING 90 GM TUBE TP SCH ×2 (09:29→21:27)
[2018-10-18] MEDS: PROSOURCE / PROSTAT (PYXIS) 30 ML UDC GT SCH ×3 (09:30→16:59)
[2018-10-18] MEDS: Z GUARD REMEDY 2 OZ OINT TP SCH ×2 (09:30→21:27)
[2018-10-18] MEDS: FAT EMULSION 20% 500 ML in PREMIX 1 EA IV SCH (13:50)
[2018-10-18] MEDS ORDERED: TPN BAG #4 IV PRN ×5 (15:30)
[2018-10-18] MEDS ORDERED: TPN BAG #5 IV PRN ×7 (15:30)
[2018-10-19] VITALS: BP 113/62
[2018-10-19] MEDS: IPRATROPIUM NEB FS 0.5 MG/2.5 ML AMPUL.NEB IH SCH ×4 (00:39→19:42)
[2018-10-19] MEDS: ALBUTEROL FS 2.5 MG/0.5 ML VIAL.NEB NEB SCH ×4 (00:39→19:42)
[2018-10-19 04:00] VITALS: BP 114/67
[2018-10-19] MEDS: MEROPENEM 500 MG in IV NS 0.9% 50 ML IV SCH ×2 (05:14→16:43)
[2018-10-19] MEDS: INSULIN REGULAR, HUMAN 100 UNIT/ML 3 ML VIAL SQ PRN ×4 (05:18→21:36)
[2018-10-19] MEDS: BLOOD SUGAR DIAGNOSTIC 1 EACH STRIP IN SCH ×4 (05:19→21:36)
[2018-10-19 08:00] VITALS: BP 122/60
[2018-10-19] MEDS ORDERED: INSULIN GLARGINE, 100 UNIT/ML CARTRIDGE SQ SCH (08:30)
[2018-10-19] MEDS: VIT B CMPLX 3/FA/VIT C/BIOTIN 1 TAB TABLET GT SCH (09:12)
[2018-10-19] MEDS: METOCLOPRAMIDE HCL 10 MG/10 ML UDC GT SCH ×2 (09:12→20:16)
[2018-10-19] MEDS: ASCORBIC ACID 500 MG TABLET GT SCH (09:12)
[2018-10-19] MEDS: ACETAMINOPHEN 650 MG/20.3 ML UDC GT SCH ×2 (09:12→20:16)
[2018-10-19] MEDS: ACIDOPHILUS/BULGARICUS 1 EACH TAB.CHEW GT SCH ×2 (09:12→16:42)
[2018-10-19] MEDS: PANTOPRAZOLE 40 MG/PACK PACK GT SCH ×2 (09:12→20:21)
[2018-10-19] MEDS: HYDROCORTISONE SOD SUCCINATE 100 MG/2 ML VIAL IV SCH ×3 (09:12→16:43)
[2018-10-19] MEDS: MIDODRINE HCL (5MG) 5 MG TABLET GT SCH (09:13)
[2018-10-19] MEDS: HEPARIN SODIUM, PORCINE 5000 UNITS/1 ML VIAL SQ SCH ×2 (09:14→20:20)
[2018-10-19] MEDS: PROSOURCE / PROSTAT (PYXIS) 30 ML UDC GT SCH ×3 (09:15→16:44)
[2018-10-19] MEDS: POLYVINYL ALCOHOL 15 ML BOTTLE EACHEYE SCH ×2 (09:15→20:25)
[2018-10-19] MEDS: HYDROGEN PEROXIDE 480 ML BOTTLE TP SCH ×2 (09:20→20:16)
[2018-10-19] MEDS: Z GUARD REMEDY 2 OZ OINT TP SCH ×3 (09:20→20:27)
[2018-10-19] MEDS: HYDROGEL DRESSING 90 GM TUBE TP SCH ×2 (09:21→20:27)
[2018-10-19] MEDS: NEOMY SULF/BACITRAC ZN/POLY 15 GM TUBE TP SCH ×2 (09:21→20:26)
[2018-10-19] MEDS: INSULIN GLARGINE, 100 UNIT/ML CARTRIDGE SQ SCH ×2 (09:29→21:33)
[2018-10-19 12:00] VITALS: BP 125/75
[2018-10-19 12:25] LABS: CALCIUM, SERUM 7.7 mg/dL (8.5-10.1); CREATININE 3.3 mg/dL (0.6-1.3); POTASSIUM 4.8 mmol/L (3.5-5.1)
[2018-10-19 12:28] LABS: MAGNESIUM 2.1 mg/dL (1.8-2.4); PHOSPHORUS 4.7 mg/dL (2.5-4.9)
[2018-10-19] MEDS ORDERED: TPN BAG #5 IV PRN ×7 (14:30)
[2018-10-19 16:00] VITALS: BP 147/76
[2018-10-19 20:00] VITALS: BP 155/57
[2018-10-19] MEDS: DAKINS QUARTER STRENGTH (0.125%) 480 ML BOTTLE TOP SCH (20:31)
[2018-10-19] MEDS: CLOTRIMAZOLE 1% 15 GM TUBE TP SCH (20:32)
[2018-10-20] VITALS: BP 154/55
[2018-10-20] MEDS: ALBUTEROL FS 2.5 MG/0.5 ML VIAL.NEB NEB SCH ×4 (02:10→19:42)
[2018-10-20] MEDS: IPRATROPIUM NEB FS 0.5 MG/2.5 ML AMPUL.NEB IH SCH ×4 (02:10→19:42)
[2018-10-20 04:00] VITALS: BP 132/48
[2018-10-20] MEDS: MEROPENEM 500 MG in IV NS 0.9% 50 ML IV SCH ×2 (05:12→17:38)
[2018-10-20] MEDS: INSULIN REGULAR, HUMAN 100 UNIT/ML 3 ML VIAL SQ PRN ×3 (05:59→16:53)
[2018-10-20] MEDS: BLOOD SUGAR DIAGNOSTIC 1 EACH STRIP IN SCH ×3 (06:00→17:44)
[2018-10-20] MEDS ORDERED: LIDOCAINE 1%-EPI 1:100,000 20 ML VIAL TP ONE (06:00)
[2018-10-20 06:32] LABS: CALCIUM, SERUM 7.1 mg/dL (8.5-10.1); CREATININE 3.7 mg/dL (0.6-1.3); MAGNESIUM 2.2 mg/dL (1.8-2.4); PHOSPHORUS 5.5 mg/dL (2.5-4.9); POTASSIUM 4.7 mmol/L (3.5-5.1)
[2018-10-20 08:00] VITALS: BP 144/67
[2018-10-20 08:17] LABS: BASOPHILS % (AUTO) 0.1 % (0.0-2.0); HEMATOCRIT 26 % (33-45); HEMOGLOBIN 7.7 g/dL (11.5-14.8); LYMPHOCYTES % (AUTO) 11.7 % (20.0-44.0); MEAN CORPUSCULAR HGB CONC 30 g/dl (31.0-36.0); MEAN CORPUSCULAR VOLUME 89 fL (82-100); MONOCYTES # (AUTO) 0.6 /CMM (0.1-1.30); MONOCYTES % (AUTO) 7.3 % (2.0-12.0); NEUTROPHILS # (AUTO) 6.9 /CMM (1.8-8.9); NEUTROPHILS % (AUTO) 80.9 % (43.0-81.0); PLATELET COUNT (AUTO) 82 /CMM (150-450); WHITE BLOOD COUNT (AUTO) 8.5 K/uL (4.3-11.0)
[2018-10-20] MEDS: ASCORBIC ACID 500 MG TABLET GT SCH (09:21)
[2018-10-20] MEDS: METOCLOPRAMIDE HCL 10 MG/10 ML UDC GT SCH ×2 (09:21→21:10)
[2018-10-20] MEDS: HYDROCORTISONE SOD SUCCINATE 100 MG/2 ML VIAL IV SCH ×3 (09:21→17:44)
[2018-10-20] MEDS: ACIDOPHILUS/BULGARICUS 1 EACH TAB.CHEW GT SCH ×2 (09:21→17:42)
[2018-10-20] MEDS: ACETAMINOPHEN 650 MG/20.3 ML UDC GT SCH ×2 (09:21→21:00)
[2018-10-20] MEDS: VIT B CMPLX 3/FA/VIT C/BIOTIN 1 TAB TABLET GT SCH (09:21)
[2018-10-20] MEDS: PANTOPRAZOLE 40 MG/PACK PACK GT SCH ×2 (09:22→21:11)
[2018-10-20] MEDS: HEPARIN SODIUM, PORCINE 5000 UNITS/1 ML VIAL SQ SCH ×2 (09:33→21:54)
[2018-10-20] MEDS: HYDROGEL DRESSING 90 GM TUBE TP SCH ×2 (09:33→21:46)
[2018-10-20] MEDS: NEOMY SULF/BACITRAC ZN/POLY 15 GM TUBE TP SCH ×2 (09:34→21:15)
[2018-10-20] MEDS: POLYVINYL ALCOHOL 15 ML BOTTLE EACHEYE SCH ×2 (09:34→21:14)
[2018-10-20] MEDS: Z GUARD REMEDY 2 OZ OINT TP SCH ×4 (09:34→21:14)
[2018-10-20] MEDS: HYDROGEN PEROXIDE 480 ML BOTTLE TP SCH ×2 (09:34→21:49)
[2018-10-20] MEDS: DAKINS QUARTER STRENGTH (0.125%) 480 ML BOTTLE TOP SCH (09:34)
[2018-10-20] MEDS: INSULIN GLARGINE, 100 UNIT/ML CARTRIDGE SQ SCH ×2 (09:39→21:54)
[2018-10-20] MEDS: PROSOURCE / PROSTAT (PYXIS) 30 ML UDC GT SCH ×3 (09:43→16:26)
[2018-10-20] MEDS: CLOTRIMAZOLE 1% 15 GM TUBE TP SCH ×2 (09:45→17:39)
[2018-10-20 09:50] LABS: BAND % (MANUAL) 9 % (0.0-5.0); LYMPHOCYTES % (MANUAL) 13 % (16-48); METAMYELOCYTES % 2 % (0-0); MONOCYTES % (MANUAL) 3 % (0-11.0); MYELOCYTES % 1 % (0-0); NEUTROPHILS % (MANUAL) 72 (42-76)
[2018-10-20] MEDS ORDERED: EPOETIN ALFA (10,000 UNIT) 10,000 UNIT/ML VIAL IV SCH (10:00)
[2018-10-20 12:00] VITALS: BP 147/68
[2018-10-20] MEDS ORDERED: TPN BAG #6 IV PRN ×8 (12:30)
[2018-10-20 16:00] VITALS: BP 146/85
[2018-10-20] MEDS: FAT EMULSION 20% 500 ML in PREMIX 1 EA IV SCH (16:26)
[2018-10-20 20:00] VITALS: BP 124/50
[2018-10-20] MEDS: ACETAMINOPHEN 325 MG TABLET PO PRN (21:11)
[2018-10-21] VITALS (17 sets, daily range): BP systolic 100–134; BP diastolic 28–75
[2018-10-21] MEDS: BLOOD SUGAR DIAGNOSTIC 1 EACH STRIP IN SCH ×4 (00:03→19:47)
[2018-10-21] MEDS: INSULIN REGULAR, HUMAN 100 UNIT/ML 3 ML VIAL SQ PRN ×2 (00:07→05:32)
[2018-10-21] MEDS: ALBUTEROL FS 2.5 MG/0.5 ML VIAL.NEB NEB SCH ×4 (00:33→19:44)
[2018-10-21] MEDS: IPRATROPIUM NEB FS 0.5 MG/2.5 ML AMPUL.NEB IH SCH ×4 (00:33→19:44)
[2018-10-21] MEDS: MEROPENEM 500 MG in IV NS 0.9% 50 ML IV SCH ×2 (05:39→19:46)
[2018-10-21 06:41] LABS: HEMATOCRIT 27 % (33-45); HEMOGLOBIN 8.4 g/dL (11.5-14.8); LYMPHOCYTES % (AUTO) 9.1 % (20.0-44.0); MEAN CORPUSCULAR HGB CONC 31 g/dl (31.0-36.0); MEAN CORPUSCULAR VOLUME 87 fL (82-100); MONOCYTES # (AUTO) 0.5 /CMM (0.1-1.30); MONOCYTES % (AUTO) 4.2 % (2.0-12.0); NEUTROPHILS # (AUTO) 9.9 /CMM (1.8-8.9); NEUTROPHILS % (AUTO) 86.7 % (43.0-81.0); PLATELET COUNT (AUTO) 72 /CMM (150-450); RED BLOOD CELL COUNT(AUTO) 3.09 MIL/uL (4.0-5.2); WHITE BLOOD COUNT (AUTO) 11.5 K/uL (4.3-11.0)
[2018-10-21 07:01] LABS: ALBUMIN 2.1 g/dL (3.4-5.0); BILIRUBIN,TOTAL 0.4 mg/dL (0.2-1.0); CALCIUM, SERUM 7.3 mg/dL (8.5-10.1); CREATININE 3.1 mg/dL (0.6-1.3); MAGNESIUM 2.1 mg/dL (1.8-2.4); PHOSPHORUS 4.6 mg/dL (2.5-4.9); POTASSIUM 4.1 mmol/L (3.5-5.1); TOTAL PROTEIN, SERUM 6.9 g/dL (6.4-8.2)
[2018-10-21 07:50] LABS: BAND % (MANUAL) 2 % (0.0-5.0); NEUTROPHILS % (MANUAL) 85 (42-76)
[2018-10-21 07:51] LABS: LYMPHOCYTES % (MANUAL) 10 % (16-48); MONOCYTES % (MANUAL) 3 % (0-11.0)
[2018-10-21] MEDS: MIDODRINE HCL (5MG) 5 MG TABLET GT SCH (09:00)
[2018-10-21] MEDS: HYDROGEL DRESSING 90 GM TUBE TP SCH ×2 (09:00→23:34)
[2018-10-21] MEDS: ACETAMINOPHEN 650 MG/20.3 ML UDC GT SCH ×2 (09:00→21:00)
[2018-10-21] MEDS: HEPARIN SODIUM, PORCINE 5000 UNITS/1 ML VIAL SQ SCH ×2 (09:00→21:00)
[2018-10-21] MEDS: POLYVINYL ALCOHOL 15 ML BOTTLE EACHEYE SCH ×2 (09:00→23:34)
[2018-10-21] MEDS: ASCORBIC ACID 500 MG TABLET GT SCH (09:00)
[2018-10-21] MEDS: PROSOURCE / PROSTAT (PYXIS) 30 ML UDC GT SCH ×3 (09:00→17:00)
[2018-10-21] MEDS: PANTOPRAZOLE 40 MG/PACK PACK GT SCH ×2 (09:00→21:00)
[2018-10-21] MEDS: NEOMY SULF/BACITRAC ZN/POLY 15 GM TUBE TP SCH ×2 (09:00→23:34)
[2018-10-21] MEDS: Z GUARD REMEDY 2 OZ OINT TP SCH ×4 (09:00→23:35)
[2018-10-21] MEDS: METOCLOPRAMIDE HCL 10 MG/10 ML UDC GT SCH ×2 (09:00→21:00)
[2018-10-21] MEDS: CLOTRIMAZOLE 1% 15 GM TUBE TP SCH ×2 (09:00→19:47)
[2018-10-21] MEDS: VIT B CMPLX 3/FA/VIT C/BIOTIN 1 TAB TABLET GT SCH (09:00)
[2018-10-21] MEDS: HYDROGEN PEROXIDE 480 ML BOTTLE TP SCH ×2 (09:00→23:34)
[2018-10-21] MEDS: INSULIN GLARGINE, 100 UNIT/ML CARTRIDGE SQ SCH (09:00)
[2018-10-21] MEDS: ACIDOPHILUS/BULGARICUS 1 EACH TAB.CHEW GT SCH ×2 (09:00→17:00)
[2018-10-21] MEDS: HYDROCORTISONE SOD SUCCINATE 100 MG/2 ML VIAL IV SCH ×2 (09:00→19:46)
[2018-10-21] MEDS: DAKINS QUARTER STRENGTH (0.125%) 480 ML BOTTLE TOP SCH (09:00)
[2018-10-21] MEDS ORDERED: EPOETIN ALFA (10,000 UNIT) 10,000 UNIT/ML VIAL IV SCH (10:00)
[2018-10-21] MEDS ORDERED: HYDROGEL DRESSING 90 GM TUBE TP SCH (12:00)
[2018-10-21] MEDS ORDERED: GELATIN SPONGE,ABSORBABLE 1 SPONGE SPONGE TP ONE ×2 (12:30→13:00)
[2018-10-21] MEDS ORDERED: DIATR MEGLU/DIATRIZOATE SODIUM 30 ML BOTTLE (GASTROGRAPHIN) ONE (13:35)
[2018-10-21] MEDS ORDERED: TPN BAG #7 IV PRN ×8 (15:30)
[2018-10-21 15:44] LABS: BASOPHILS % (AUTO) 0.1 % (0.0-2.0); EOSINOPHILS % (AUTO) 0.2 % (0.0-6.0); HEMATOCRIT 24 % (33-45); HEMOGLOBIN 7.3 g/dL (11.5-14.8); MEAN CORPUSCULAR HGB CONC 31 g/dl (31.0-36.0); MEAN CORPUSCULAR VOLUME 87 fL (82-100); MONOCYTES # (AUTO) 0.7 /CMM (0.1-1.30); MONOCYTES % (AUTO) 4.8 % (2.0-12.0); NEUTROPHILS # (AUTO) 11.4 /CMM (1.8-8.9); NEUTROPHILS % (AUTO) 80.9 % (43.0-81.0); PLATELET COUNT (AUTO) 76 /CMM (150-450); RED BLOOD CELL COUNT(AUTO) 2.72 MIL/uL (4.0-5.2); WHITE BLOOD COUNT (AUTO) 14.1 K/uL (4.3-11.0)
[2018-10-21 16:32] LABS: BAND % (MANUAL) 5 % (0.0-5.0); LYMPHOCYTES % (MANUAL) 15 % (16-48); NEUTROPHILS % (MANUAL) 80 (42-76)
[2018-10-21] MEDS: SUCRALFATE 1 G/10 ML UDC GT SCH ×2 (17:30→22:00)
[2018-10-21] MEDS ORDERED: DESMOPRESSIN 20 MCG in IV NS 0.9% 50 ML IV ONE (19:00)
[2018-10-21] MEDS ORDERED: IV NS 0.9% 250 ML IV PRN (20:30)
[2018-10-22] VITALS (87 sets, daily range): BP systolic 40–183; BP diastolic 22–108
[2018-10-22] MEDS: BLOOD SUGAR DIAGNOSTIC 1 EACH STRIP IN SCH ×4 (00:49→18:13)
[2018-10-22] MEDS: INSULIN REGULAR, HUMAN 100 UNIT/ML 3 ML VIAL SQ PRN ×4 (00:52→18:20)
[2018-10-22] MEDS: INSULIN GLARGINE, 100 UNIT/ML CARTRIDGE SQ SCH ×3 (00:53→22:16)
[2018-10-22] MEDS: ALBUTEROL FS 2.5 MG/0.5 ML VIAL.NEB NEB SCH ×4 (01:05→19:24)
[2018-10-22] MEDS: IPRATROPIUM NEB FS 0.5 MG/2.5 ML AMPUL.NEB IH SCH ×4 (01:05→19:24)
[2018-10-22] MEDS: MEROPENEM 500 MG in IV NS 0.9% 50 ML IV SCH ×2 (05:14→17:37)
[2018-10-22 07:02] LABS: BILIRUBIN,TOTAL 0.4 mg/dL (0.2-1.0); CALCIUM, SERUM 6.8 mg/dL (8.5-10.1); CREATININE 3.5 mg/dL (0.6-1.3); PHOSPHORUS 6.3 mg/dL (2.5-4.9); POTASSIUM 4.2 mmol/L (3.5-5.1); TOTAL PROTEIN, SERUM 5.7 g/dL (6.4-8.2)
[2018-10-22] MEDS: SUCRALFATE 1 G/10 ML UDC GT SCH ×5 (07:30→22:04)
[2018-10-22 07:37] LABS: BASOPHILS % (AUTO) 0.1 % (0.0-2.0); HEMATOCRIT 22 % (33-45); LYMPHOCYTES # (AUTO) 0.8 /CMM (0.8-4.8); LYMPHOCYTES % (AUTO) 5.2 % (20.0-44.0); MEAN CORPUSCULAR HGB CONC 31 g/dl (31.0-36.0); MEAN CORPUSCULAR VOLUME 88 fL (82-100); MONOCYTES # (AUTO) 0.4 /CMM (0.1-1.30); MONOCYTES % (AUTO) 2.8 % (2.0-12.0); NEUTROPHILS # (AUTO) 13.4 /CMM (1.8-8.9); NEUTROPHILS % (AUTO) 91.9 % (43.0-81.0); PLATELET COUNT (AUTO) 119 /CMM (150-450); RED BLOOD CELL COUNT(AUTO) 2.48 MIL/uL (4.0-5.2); WHITE BLOOD COUNT (AUTO) 14.7 K/uL (4.3-11.0)
[2018-10-22 07:48] LABS: HEMOGLOBIN 6.7 g/dL (11.5-14.8)
[2018-10-22] MEDS: HYDROGEN PEROXIDE 480 ML BOTTLE TP SCH ×2 (08:34→22:05)
[2018-10-22] MEDS: HYDROCORTISONE SOD SUCCINATE 100 MG/2 ML VIAL IV SCH ×2 (08:35→17:37)
[2018-10-22] MEDS: NEOMY SULF/BACITRAC ZN/POLY 15 GM TUBE TP SCH ×2 (08:35→22:06)
[2018-10-22] MEDS: POLYVINYL ALCOHOL 15 ML BOTTLE EACHEYE SCH ×2 (08:35→22:08)
[2018-10-22] MEDS: Z GUARD REMEDY 2 OZ OINT TP SCH ×4 (08:36→22:07)
[2018-10-22] MEDS: DAKINS QUARTER STRENGTH (0.125%) 480 ML BOTTLE TOP SCH (08:37)
[2018-10-22] MEDS: HEPARIN SODIUM, PORCINE 5000 UNITS/1 ML VIAL SQ SCH (08:38)
[2018-10-22] MEDS: HYDROGEL DRESSING 90 GM TUBE TP SCH ×2 (08:38→22:08)
[2018-10-22] MEDS: CLOTRIMAZOLE 1% 15 GM TUBE TP SCH ×2 (08:38→17:42)
[2018-10-22] MEDS: ACIDOPHILUS/BULGARICUS 1 EACH TAB.CHEW GT SCH ×2 (09:00→17:37)
[2018-10-22] MEDS: ACETAMINOPHEN 650 MG/20.3 ML UDC GT SCH ×2 (09:00→22:04)
[2018-10-22] MEDS: PANTOPRAZOLE 40 MG/PACK PACK GT SCH ×3 (09:00→22:04)
[2018-10-22] MEDS: PROSOURCE / PROSTAT (PYXIS) 30 ML UDC GT SCH ×3 (09:00→16:22)
[2018-10-22 09:01] LABS: BAND % (MANUAL) 3 % (0.0-5.0); LYMPHOCYTES % (MANUAL) 5 % (16-48); MONOCYTES % (MANUAL) 2 % (0-11.0); NEUTROPHILS % (MANUAL) 90 (42-76)
[2018-10-22] MEDS ORDERED: ETOMIDATE 2 MG/ML VIAL ONE ×2 (10:29→11:36)
[2018-10-22] MEDS ORDERED: TPN BAG #8 IV PRN ×8 (10:30)
[2018-10-22] MEDS ORDERED: NOREPINEPHRINE 4 MG/4 ML AMPUL IV ONE (12:11)
[2018-10-22] MEDS ORDERED: ANESTHESIA TRAY IN PYXIS 1 EA TRAY MC ONE (12:13)
[2018-10-22] MEDS ORDERED: ALBUMIN 5% 250 ML IV ONE (12:17)
[2018-10-22] MEDS: NOREPINEPHRINE 8 MG in IV D5W 500 ML IV PRN ×2 (12:28→19:49)
[2018-10-22] MEDS ORDERED: ALBUMIN 25% 12.5 GM in PREMIX 1 EA IV PRN (12:30)
[2018-10-22] MEDS ORDERED: ALBUMIN 5% 25 GM in PREMIX 1 EA IV ONE (12:30)
[2018-10-22] MEDS ORDERED: ALBUMIN 25% 25 GM in PREMIX 1 EA IV PRN (13:30)
[2018-10-22] MEDS ORDERED: VANCOMYCIN 1 GM in IV D5W 250 ML IV ONE (14:00)
[2018-10-22] MEDS: FAT EMULSION 20% 500 ML in PREMIX 1 EA IV SCH (14:53)
[2018-10-22 15:12] LABS: HEMATOCRIT 28 % (33-45); HEMOGLOBIN 8.7 g/dL (11.5-14.8); LYMPHOCYTES # (AUTO) 0.4 /CMM (0.8-4.8); LYMPHOCYTES % (AUTO) 1.6 % (20.0-44.0); MEAN CORPUSCULAR HGB CONC 31 g/dl (31.0-36.0); MEAN CORPUSCULAR VOLUME 89 fL (82-100); MONOCYTES # (AUTO) 0.3 /CMM (0.1-1.30); MONOCYTES % (AUTO) 1.4 % (2.0-12.0); NEUTROPHILS # (AUTO) 23.4 /CMM (1.8-8.9); PLATELET COUNT (AUTO) 145 /CMM (150-450); RED BLOOD CELL COUNT(AUTO) 3.18 MIL/uL (4.0-5.2); WHITE BLOOD COUNT (AUTO) 24.2 K/uL (4.3-11.0)
[2018-10-22] MEDS: METOCLOPRAMIDE HCL 10 MG/10 ML UDC GT SCH ×3 (15:20→22:04)
[2018-10-22] MEDS: VIT B CMPLX 3/FA/VIT C/BIOTIN 1 TAB TABLET GT SCH (15:20)
[2018-10-22] MEDS: ASCORBIC ACID 500 MG TABLET GT SCH (15:20)
[2018-10-23] VITALS (50 sets, daily range): BP systolic 94–163; BP diastolic 35–82
[2018-10-23] MEDS: BLOOD SUGAR DIAGNOSTIC 1 EACH STRIP IN SCH ×4 (00:02→17:02)
[2018-10-23] MEDS: INSULIN REGULAR, HUMAN 100 UNIT/ML 3 ML VIAL SQ PRN ×2 (00:06→06:27)
[2018-10-23] MEDS: IPRATROPIUM NEB FS 0.5 MG/2.5 ML AMPUL.NEB IH SCH ×4 (01:26→19:32)
[2018-10-23] MEDS: ALBUTEROL FS 2.5 MG/0.5 ML VIAL.NEB NEB SCH ×4 (01:26→19:32)
[2018-10-23] MEDS: MEROPENEM 500 MG in IV NS 0.9% 50 ML IV SCH ×2 (04:26→17:01)
[2018-10-23] MEDS: SUCRALFATE 1 G/10 ML UDC GT SCH ×4 (07:43→21:07)
[2018-10-23] MEDS ORDERED: NOREPINEPHRINE 8 MG in IV D5W 500 ML IV PRN (08:00)
[2018-10-23] MEDS: PROSOURCE / PROSTAT (PYXIS) 30 ML UDC GT SCH ×3 (08:26→17:01)
[2018-10-23] MEDS: ACETAMINOPHEN 650 MG/20.3 ML UDC GT SCH ×2 (08:26→21:07)
[2018-10-23] MEDS: METOCLOPRAMIDE HCL 10 MG/10 ML UDC GT SCH ×2 (08:27→21:07)
[2018-10-23] MEDS: PANTOPRAZOLE 40 MG/PACK PACK GT SCH ×2 (08:27→21:07)
[2018-10-23] MEDS: ASCORBIC ACID 500 MG TABLET GT SCH (08:27)
[2018-10-23] MEDS: VIT B CMPLX 3/FA/VIT C/BIOTIN 1 TAB TABLET GT SCH (08:27)
[2018-10-23] MEDS: ACIDOPHILUS/BULGARICUS 1 EACH TAB.CHEW GT SCH ×2 (08:27→16:49)
[2018-10-23] MEDS: HYDROCORTISONE SOD SUCCINATE 100 MG/2 ML VIAL IV SCH ×2 (08:29→16:50)
[2018-10-23] MEDS: DAKINS QUARTER STRENGTH (0.125%) 480 ML BOTTLE TOP SCH (08:30)
[2018-10-23] MEDS: Z GUARD REMEDY 2 OZ OINT TP SCH ×4 (08:30→21:10)
[2018-10-23] MEDS: HYDROGEL DRESSING 90 GM TUBE TP SCH ×2 (08:31→21:11)
[2018-10-23] MEDS: HYDROGEN PEROXIDE 480 ML BOTTLE TP SCH ×2 (08:31→21:11)
[2018-10-23] MEDS: CLOTRIMAZOLE 1% 15 GM TUBE TP SCH ×2 (08:31→16:50)
[2018-10-23] MEDS: POLYVINYL ALCOHOL 15 ML BOTTLE EACHEYE SCH ×2 (08:32→21:07)
[2018-10-23] MEDS: INSULIN GLARGINE, 100 UNIT/ML CARTRIDGE SQ SCH ×2 (08:36→21:00)
[2018-10-23] MEDS: NEOMY SULF/BACITRAC ZN/POLY 15 GM TUBE TP SCH ×2 (08:37→21:11)
[2018-10-23] MEDS: MIDODRINE HCL (5MG) 5 MG TABLET GT SCH (09:00)
[2018-10-23 09:20] LABS: CALCIUM, SERUM 6.4 mg/dL (8.5-10.1); PHOSPHORUS 4.7 mg/dL (2.5-4.9); POTASSIUM 3.3 mmol/L (3.5-5.1)
[2018-10-23] MEDS ORDERED: TPN BAG #9 IV PRN ×9 (11:30)
[2018-10-23] MEDS ORDERED: EPOETIN ALFA (10,000 UNIT) 10,000 UNIT/ML VIAL IV ONE (11:30)
[2018-10-23 11:40] LABS: BASOPHILS % (AUTO) 0.1 % (0.0-2.0); HEMATOCRIT 24 % (33-45); HEMOGLOBIN 7.6 g/dL (11.5-14.8); LYMPHOCYTES # (AUTO) 1.2 /CMM (0.8-4.8); LYMPHOCYTES % (AUTO) 6.4 % (20.0-44.0); MEAN CORPUSCULAR HGB CONC 32 g/dl (31.0-36.0); MEAN CORPUSCULAR VOLUME 89 fL (82-100); MONOCYTES # (AUTO) 0.8 /CMM (0.1-1.30); MONOCYTES % (AUTO) 4.1 % (2.0-12.0); NEUTROPHILS # (AUTO) 16.7 /CMM (1.8-8.9); NEUTROPHILS % (AUTO) 89.4 % (43.0-81.0); PLATELET COUNT (AUTO) 113 /CMM (150-450); RED BLOOD CELL COUNT(AUTO) 2.66 MIL/uL (4.0-5.2); WHITE BLOOD COUNT (AUTO) 18.7 K/uL (4.3-11.0)
[2018-10-23 12:16] LABS: IRON, SERUM 34 ug/dl (50-175); TOTAL IRON BINDING CAPACITY 135 ug/dl (250-450)
[2018-10-23] MEDS: NEPRO 1,000 ML BOTTLE GT PRN (12:48)
[2018-10-23 13:54] LABS: FERRITIN 2625 ng/mL (8-388)
[2018-10-23] MEDS ORDERED: ZINC OXIDE 30 GM TUBE TP PRN (15:30)
[2018-10-23 17:21] LABS: OCCULT BLOOD STOOL POSITIVE (NEGATIVE)
[2018-10-23] MEDS: COD LIVER OIL/ZINC OXIDE 120 GM TUBE TP SCH (21:12)
[2018-10-24] VITALS (36 sets, daily range): BP systolic 107–156; BP diastolic 39–85
[2018-10-24] MEDS: BLOOD SUGAR DIAGNOSTIC 1 EACH STRIP IN SCH ×4 (00:04→18:08)
[2018-10-24] MEDS: ALBUTEROL FS 2.5 MG/0.5 ML VIAL.NEB NEB SCH ×4 (02:11→20:31)
[2018-10-24] MEDS: IPRATROPIUM NEB FS 0.5 MG/2.5 ML AMPUL.NEB IH SCH ×4 (02:11→20:31)
[2018-10-24] MEDS: MEROPENEM 500 MG in IV NS 0.9% 50 ML IV SCH ×2 (04:26→16:37)
[2018-10-24 04:44] LABS: BASOPHILS % (AUTO) 0.1 % (0.0-2.0); EOSINOPHILS % (AUTO) 0.1 % (0.0-6.0); HEMATOCRIT 23 % (33-45); HEMOGLOBIN 7.2 g/dL (11.5-14.8); LYMPHOCYTES # (AUTO) 1.1 /CMM (0.8-4.8); LYMPHOCYTES % (AUTO) 8.3 % (20.0-44.0); MEAN CORPUSCULAR HGB CONC 32 g/dl (31.0-36.0); MEAN CORPUSCULAR VOLUME 90 fL (82-100); MONOCYTES # (AUTO) 0.6 /CMM (0.1-1.30); MONOCYTES % (AUTO) 4.8 % (2.0-12.0); NEUTROPHILS # (AUTO) 11.4 /CMM (1.8-8.9); NEUTROPHILS % (AUTO) 86.7 % (43.0-81.0); PLATELET COUNT (AUTO) 108 /CMM (150-450); RED BLOOD CELL COUNT(AUTO) 2.53 MIL/uL (4.0-5.2); WHITE BLOOD COUNT (AUTO) 13.1 K/uL (4.3-11.0)
[2018-10-24 05:10] LABS: ALBUMIN 2.1 g/dL (3.4-5.0); BILIRUBIN,TOTAL 0.4 mg/dL (0.2-1.0); CALCIUM, SERUM 6.7 mg/dL (8.5-10.1); CREATININE 3.4 mg/dL (0.6-1.3); PHOSPHORUS 5.3 mg/dL (2.5-4.9); POTASSIUM 3.6 mmol/L (3.5-5.1); TOTAL PROTEIN, SERUM 5.9 g/dL (6.4-8.2)
[2018-10-24] MEDS: SUCRALFATE 1 G/10 ML UDC GT SCH ×4 (06:08→22:47)
[2018-10-24] MEDS: ASCORBIC ACID 500 MG TABLET GT SCH (09:37)
[2018-10-24] MEDS: METOCLOPRAMIDE HCL 10 MG/10 ML UDC GT SCH ×2 (09:37→21:18)
[2018-10-24] MEDS: VIT B CMPLX 3/FA/VIT C/BIOTIN 1 TAB TABLET GT SCH (09:37)
[2018-10-24] MEDS: ACIDOPHILUS/BULGARICUS 1 EACH TAB.CHEW GT SCH ×2 (09:37→16:37)
[2018-10-24] MEDS: PANTOPRAZOLE 40 MG/PACK PACK GT SCH ×2 (09:37→21:18)
[2018-10-24] MEDS: ACETAMINOPHEN 650 MG/20.3 ML UDC GT SCH ×2 (09:37→21:18)
[2018-10-24] MEDS: HYDROCORTISONE SOD SUCCINATE 100 MG/2 ML VIAL IV SCH ×2 (09:38→16:38)
[2018-10-24] MEDS: HYDROGEN PEROXIDE 480 ML BOTTLE TP SCH ×2 (09:38→21:20)
[2018-10-24] MEDS: Z GUARD REMEDY 2 OZ OINT TP SCH ×4 (09:40→21:22)
[2018-10-24] MEDS: POLYVINYL ALCOHOL 15 ML BOTTLE EACHEYE SCH ×2 (09:40→21:17)
[2018-10-24] MEDS: DAKINS QUARTER STRENGTH (0.125%) 480 ML BOTTLE TOP SCH (09:40)
[2018-10-24] MEDS: COD LIVER OIL/ZINC OXIDE 120 GM TUBE TP SCH ×2 (09:40→21:19)
[2018-10-24] MEDS: HYDROGEL DRESSING 90 GM TUBE TP SCH ×2 (09:41→21:19)
[2018-10-24] MEDS: CLOTRIMAZOLE 1% 15 GM TUBE TP SCH ×2 (09:42→16:38)
[2018-10-24] MEDS: NEOMY SULF/BACITRAC ZN/POLY 15 GM TUBE TP SCH ×2 (09:42→21:20)
[2018-10-24] MEDS: PROSOURCE / PROSTAT (PYXIS) 30 ML UDC GT SCH ×3 (09:43→16:37)
[2018-10-24] MEDS ORDERED: EPOETIN ALFA (10,000 UNIT) 10,000 UNIT/ML VIAL IV ONE (15:00)
[2018-10-24] MEDS: INSULIN GLARGINE, 100 UNIT/ML CARTRIDGE SQ SCH (18:13)
[2018-10-25] VITALS: BP 140/40
[2018-10-25] MEDS: BLOOD SUGAR DIAGNOSTIC 1 EACH STRIP IN SCH ×4 (00:43→17:18)
[2018-10-25] MEDS: INSULIN REGULAR, HUMAN 100 UNIT/ML 3 ML VIAL SQ PRN ×4 (00:45→17:20)
[2018-10-25 00:59] LABS: OCCULT BLOOD STOOL POSITIVE (NEGATIVE)
[2018-10-25] MEDS: IPRATROPIUM NEB FS 0.5 MG/2.5 ML AMPUL.NEB IH SCH ×4 (02:38→19:57)
[2018-10-25] MEDS: ALBUTEROL FS 2.5 MG/0.5 ML VIAL.NEB NEB SCH ×4 (02:38→19:57)
[2018-10-25 04:00] VITALS: BP 135/39
[2018-10-25] MEDS: MEROPENEM 500 MG in IV NS 0.9% 50 ML IV SCH ×2 (05:29→17:17)
[2018-10-25 06:29] LABS: EOSINOPHILS % (AUTO) 0.1 % (0.0-6.0); HEMATOCRIT 26 % (33-45); HEMOGLOBIN 8.1 g/dL (11.5-14.8); LYMPHOCYTES # (AUTO) 1.5 /CMM (0.8-4.8); LYMPHOCYTES % (AUTO) 10.4 % (20.0-44.0); MEAN CORPUSCULAR HGB CONC 31 g/dl (31.0-36.0); MEAN CORPUSCULAR VOLUME 90 fL (82-100); MONOCYTES # (AUTO) 0.9 /CMM (0.1-1.30); MONOCYTES % (AUTO) 5.9 % (2.0-12.0); NEUTROPHILS # (AUTO) 12.4 /CMM (1.8-8.9); NEUTROPHILS % (AUTO) 83.6 % (43.0-81.0); PLATELET COUNT (AUTO) 102 /CMM (150-450); RED BLOOD CELL COUNT(AUTO) 2.87 MIL/uL (4.0-5.2); WHITE BLOOD COUNT (AUTO) 14.8 K/uL (4.3-11.0)
[2018-10-25 06:56] LABS: ALBUMIN 2.3 g/dL (3.4-5.0); BILIRUBIN,TOTAL 0.4 mg/dL (0.2-1.0); CREATININE 3.4 mg/dL (0.6-1.3); PHOSPHORUS 5.1 mg/dL (2.5-4.9); POTASSIUM 3.5 mmol/L (3.5-5.1); TOTAL PROTEIN, SERUM 6.1 g/dL (6.4-8.2)
[2018-10-25 08:00] VITALS: BP 157/63
[2018-10-25] MEDS: SUCRALFATE 1 G/10 ML UDC GT SCH ×4 (08:32→21:35)
[2018-10-25] MEDS: VIT B CMPLX 3/FA/VIT C/BIOTIN 1 TAB TABLET GT SCH (08:33)
[2018-10-25] MEDS: ACIDOPHILUS/BULGARICUS 1 EACH TAB.CHEW GT SCH ×2 (08:33→17:17)
[2018-10-25] MEDS: ACETAMINOPHEN 650 MG/20.3 ML UDC GT SCH ×2 (08:34→21:19)
[2018-10-25] MEDS: HYDROCORTISONE SOD SUCCINATE 100 MG/2 ML VIAL IV SCH ×2 (08:34→17:18)
[2018-10-25] MEDS: ASCORBIC ACID 500 MG TABLET GT SCH (08:34)
[2018-10-25] MEDS: METOCLOPRAMIDE HCL 10 MG/10 ML UDC GT SCH ×2 (08:34→21:19)
[2018-10-25] MEDS: PANTOPRAZOLE 40 MG/PACK PACK GT SCH ×2 (08:39→21:19)
[2018-10-25] MEDS: PROSOURCE / PROSTAT (PYXIS) 30 ML UDC GT SCH ×3 (08:41→17:18)
[2018-10-25] MEDS: HYDROGEN PEROXIDE 480 ML BOTTLE TP SCH ×2 (08:41→21:20)
[2018-10-25] MEDS: HYDROGEL DRESSING 90 GM TUBE TP SCH ×2 (08:42→21:20)
[2018-10-25] MEDS: COD LIVER OIL/ZINC OXIDE 120 GM TUBE TP SCH ×2 (08:42→21:20)
[2018-10-25] MEDS: NEOMY SULF/BACITRAC ZN/POLY 15 GM TUBE TP SCH ×2 (08:42→21:22)
[2018-10-25] MEDS: CLOTRIMAZOLE 1% 15 GM TUBE TP SCH ×2 (08:43→17:31)
[2018-10-25] MEDS: DAKINS QUARTER STRENGTH (0.125%) 480 ML BOTTLE TOP SCH (08:43)
[2018-10-25] MEDS: Z GUARD REMEDY 2 OZ OINT TP SCH ×4 (08:44→21:21)
[2018-10-25] MEDS: POLYVINYL ALCOHOL 15 ML BOTTLE EACHEYE SCH ×2 (08:45→21:19)
[2018-10-25 12:00] VITALS: BP 153/69
[2018-10-25 16:00] VITALS: BP 170/62
[2018-10-25] MEDS: INSULIN GLARGINE, 100 UNIT/ML CARTRIDGE SQ SCH (18:03)
[2018-10-25 18:15] LABS: OCCULT BLOOD STOOL POSITIVE (NEGATIVE)
[2018-10-25] MEDS: NEPRO 1,000 ML BOTTLE GT PRN (18:45)
[2018-10-25 20:00] VITALS: BP_SYST 148; BP_DIAS 45; BP_DIAS 49
[2018-10-26] VITALS: BP 141/36
[2018-10-26] MEDS: BLOOD SUGAR DIAGNOSTIC 1 EACH STRIP IN SCH ×3 (00:34→11:46)
[2018-10-26] MEDS: INSULIN REGULAR, HUMAN 100 UNIT/ML 3 ML VIAL SQ PRN ×2 (00:40→05:49)
[2018-10-26] MEDS: ALBUTEROL FS 2.5 MG/0.5 ML VIAL.NEB NEB SCH ×3 (01:44→13:56)
[2018-10-26] MEDS: IPRATROPIUM NEB FS 0.5 MG/2.5 ML AMPUL.NEB IH SCH ×3 (01:44→13:56)
[2018-10-26 04:00] VITALS: BP_SYST 153; BP_DIAS 34; BP_DIAS 39
[2018-10-26] MEDS: MEROPENEM 500 MG in IV NS 0.9% 50 ML IV SCH (05:31)
[2018-10-26 08:00] VITALS: BP_SYST 158; BP_SYST 179; BP_DIAS 69; BP_DIAS 73
[2018-10-26] MEDS: SUCRALFATE 1 G/10 ML UDC GT SCH ×2 (08:10→12:06)
[2018-10-26] MEDS: POLYVINYL ALCOHOL 15 ML BOTTLE EACHEYE SCH (08:33)
[2018-10-26] MEDS: Z GUARD REMEDY 2 OZ OINT TP SCH ×2 (08:34→09:01)
[2018-10-26] MEDS: NEOMY SULF/BACITRAC ZN/POLY 15 GM TUBE TP SCH (08:35)
[2018-10-26] MEDS: HYDROGEN PEROXIDE 480 ML BOTTLE TP SCH (08:35)
[2018-10-26] MEDS: COD LIVER OIL/ZINC OXIDE 120 GM TUBE TP SCH (08:36)
[2018-10-26] MEDS: HYDROGEL DRESSING 90 GM TUBE TP SCH (08:36)
[2018-10-26] MEDS: DAKINS QUARTER STRENGTH (0.125%) 480 ML BOTTLE TOP SCH (08:37)
[2018-10-26] MEDS: ACETAMINOPHEN 650 MG/20.3 ML UDC GT SCH (08:38)
[2018-10-26] MEDS: VIT B CMPLX 3/FA/VIT C/BIOTIN 1 TAB TABLET GT SCH (08:38)
[2018-10-26] MEDS: ACIDOPHILUS/BULGARICUS 1 EACH TAB.CHEW GT SCH (08:38)
[2018-10-26] MEDS: METOCLOPRAMIDE HCL 10 MG/10 ML UDC GT SCH (08:38)
[2018-10-26] MEDS: HYDROCORTISONE SOD SUCCINATE 100 MG/2 ML VIAL IV SCH (08:38)
[2018-10-26] MEDS: PANTOPRAZOLE 40 MG/PACK PACK GT SCH (08:39)
[2018-10-26] MEDS: ASCORBIC ACID 500 MG TABLET GT SCH (08:39)
[2018-10-26] MEDS: MIDODRINE HCL (5MG) 5 MG TABLET GT SCH (08:57)
[2018-10-26] MEDS: PROSOURCE / PROSTAT (PYXIS) 30 ML UDC GT SCH ×2 (09:39→12:06)
[2018-10-26] MEDS: CLOTRIMAZOLE 1% 15 GM TUBE TP SCH (10:00)
[2018-10-26 12:00] VITALS: BP 152/46
[2018-10-26 16:00] VITALS: BP 143/44
== END 2018-10-26 16:43 | DRG 252 ==
LOC: ER 16:20 → TELE-TD 19:59 → ICU 20:11 → TELE-TD 10-17 17:34 → TELE1 10-18 17:35 → TELE-TD 10-21 17:42 → ICU 10-21 18:07 → TELE1 10-24 18:31 → TELE-TD 10-24 19:41 → TELE1 10-25 12:50
PROVIDERS: ADMIT Internal Medicine; ATTEND Internal Medicine Nephrology
PROC: 5A1955Z Respiratory Ventilation, Greater than 96 Consecutive Hours (ICD-10-PCS; principal; 2018-10-15)
PROC: 5A1D70Z Performance of Urinary Filtration, Intermittent, Less than 6 Hours Per Day (ICD-10-PCS; 2018-10-16)
PROC: 30233N1 Transfusion of Nonautologous Red Blood Cells into Peripheral Vein, Percutaneous Approach (ICD-10-PCS; 2018-10-21)
PROC: 30233R1 Transfusion of Nonautologous Platelets into Peripheral Vein, Percutaneous Approach (ICD-10-PCS; 2018-10-22)
PROC: 0W3P8ZZ Control Bleeding in Gastrointestinal Tract, Via Natural or Artificial Opening Endoscopic (ICD-10-PCS; 2018-10-22)
DX: K94.22 Gastrostomy infection (principal); J96.21 Acute and chronic respiratory failure with hypoxia; A41.9 Sepsis, unspecified organism; G93.1 Anoxic brain damage, not elsewhere classified; Z99.11 Dependence on respirator [ventilator] status; J18.9 Pneumonia, unspecified organism; K25.4 Chronic or unspecified gastric ulcer with hemorrhage; L89.154 Pressure ulcer of sacral region, stage 4; R53.2 Functional quadriplegia; E11.22 Type 2 diabetes mellitus with diabetic chronic kidney disease; I12.0 Hypertensive chronic kidney disease with stage 5 chronic kidney disease or end stage renal disease; Y83.8 Other surgical procedures as the cause of abnormal reaction of the patient, or of later complication, without mention of misadventure at the time of the procedure; N18.6 End stage renal disease; Y92.129 Unspecified place in nursing home as the place of occurrence of the external cause; Z99.2 Dependence on renal dialysis; L03.311 Cellulitis of abdominal wall; K94.21 Gastrostomy hemorrhage; R13.10 Dysphagia, unspecified; E11.649 Type 2 diabetes mellitus with hypoglycemia without coma; E11.65 Type 2 diabetes mellitus with hyperglycemia; E11.51 Type 2 diabetes mellitus with diabetic peripheral angiopathy without gangrene; E11.42 Type 2 diabetes mellitus with diabetic polyneuropathy; D89.9 Disorder involving the immune mechanism, unspecified; D64.9 Anemia, unspecified; E27.40 Unspecified adrenocortical insufficiency; J98.11 Atelectasis; Z89.612 Acquired absence of left leg above knee; Z79.4 Long term (current) use of insulin; L30.4 Erythema intertrigo; Z79.899 Other long term (current) drug therapy; Z79.01 Long term (current) use of anticoagulants; X58.XXXA Exposure to other specified factors, initial encounter; Y92.89 Other specified places as the place of occurrence of the external cause; S61.200A Unspecified open wound of right index finger without damage to nail, initial encounter; M84.622 Pathological fracture in other disease, left humerus; Y95 Nosocomial condition
CPT/HCPCS: 31720; 36415; 36600; 71045-TC; 74018; 80048-TC; 80053-TC; 80061-TC; 80076-TC; 80202-TC; 82272-TC; 82533; 82728-TC; 82803-TC; 82962-TC; 83540-TC; 83605-TC; 83735-TC; 84100-TC; 84484-TC; 85025-TC; 85610-TC; 85730-TC; 86704; 86706; 86850-TC; 86921-TC; 87040-TC; 87070-TC; 87081-TC; 87340; 90935-TC; 94003-TC; 94640-TC; 94760-TC; 94762-TC; 94799-TC; A4216; A6248; A6253; A6403; G0378; J0171; J0690; J0692; J0885; J1644; J1720; J1815; J2185; J2370; J2597; J2704; J3370; J3475; J3480; J3490; J7050; J7060; J8597; P9016-BL; P9034-BL; P9045; P9047; Q9963

== ENCOUNTER 2018-10-26 11:37 | Inpatient (IN) | payer MEDICAID ==
[~2018-10-26] VITALS: Ht 152.4 cm; Wt 77.0 kg
[~2018-10-26 11:37] MED LIST changes: -CLON-418 GT; +CLON0.2T GT; -HYDR-4076 PO; -MAG30ORA GT; +MIDO5TAB GT; +NEOM1PAC2 TP; -NUTR100037 GT; -NYST60PO TP; -SEVE800T8 GT; +TPN ADD IV; +VANC750P13 IV
--- NOTE | 2018-10-26 19:10 | NUR ---
Resident readmitted from [facility] BILL under the services of Dr. Enrique Castro with the following admitting diagnosis, chronic respiratory failure, ventilator dependent, chronic anoxic encephalopathy, GT due to dysphagia, DM Type 2, PAD S/P L BKA, GT site cellulitis, Anemia due to renal failure, PVS, ESRD on HD, Hx. of L distal humeral shaft fracture with bone mineral disease, diffuse osteopenia, hyperparathyroidism. Body check done, patient with sacral wound from failed flap, GT site cellulitis, R index finger, L index finger wound, bilateral breast and abdominal fold erythema. Resident's responsible democrat John Woodall notified of admission. Dr. Castro verified admission orders with order to DC Solu-Cortef and Albumin IV. Old GT site with suture, noted to have small amount of formula coming out from the sutured area especially when she coughs. Maintain GT feeding of Nepro at 30cc/hr., air conditioning mechanic industrial to evaluate feeding rate in AM. GT stoma red, local treatment initiated. IV ATB Merrem and Vancomycin for sepsis x 7 more days. Orders faxed to [facility] and [facility] pharmacy.
[2018-10-26] MEDS ORDERED: ACETAMINOPHEN 650 MG/20 ML UDC- SA PATIENTS-FEVER ONLY GT PRN (20:30)
[2018-10-26] MEDS ORDERED: LACTULOSE 10 G/15 ML UDC (PYXIS) GT PRN (20:30)
[2018-10-26] MEDS ORDERED: HYDROCODONE/APAP 5/325MG 1 EACH TABLET GT PRN (20:30)
[2018-10-26] MEDS ORDERED: MAG HYDROX/AL HYDROX/SIMETH 30 ML UDC GT PRN (20:30)
[2018-10-26] MEDS ORDERED: ONDANSETRON HCL 4 MG/5 ML SOLUTION GT PRN (20:30)
[2018-10-26] MEDS ORDERED: CLONIDINE HCL 0.2 MG TABLET GT PRN (20:30)
[2018-10-26] MEDS ORDERED: ACETAMINOPHEN 650 MG/20.3 ML UDC GT PRN (20:30)
[2018-10-26] MEDS ORDERED: POLYVINYL ALCOHOL/POVIDONE 0.4 ML DROPERETTE EACHEYE PRN (20:30)
[2018-10-26] MEDS ORDERED: POLYVINYL ALCOHOL 15 ML BOTTLE EACHEYE PRN (21:00)
[2018-10-26] MEDS ORDERED: ACETAMINOPHEN 650 MG/20 ML UDC- SA PATIENTS-PAIN ONLY GT PRN (21:00)
[2018-10-26] MEDS ORDERED: MEROPENEM 500 MG in IV NS 0.9% 50 ML IV SCH (21:00)
--- NOTE | 2018-10-26 21:00 | NUR ---
RN NOTES Received new orders from Dr. Castro, noted and carried out. Merrem 500mg IV given as ordered with no A/R noted. Right femoral central line intact with no s/s of infection.
[2018-10-26] MEDS: POLYVINYL ALCOHOL 15 ML BOTTLE EACHEYE SCH (21:29)
[2018-10-26] MEDS: SUCRALFATE 1 G/10 ML UDC GT SCH (21:29)
[2018-10-26] MEDS: PROSOURCE / PROSTAT (PYXIS) 30 ML UDC GT SCH (21:29)
[2018-10-26] MEDS: ACIDOPHILUS/BULGARICUS 1 EACH TAB.CHEW GT SCH (21:30)
[2018-10-26] MEDS: ACETAMINOPHEN 650 MG/20.3 ML UDC GT SCH (21:30)
[2018-10-26] MEDS: METOCLOPRAMIDE HCL 10 MG/10 ML UDC GT SCH (21:30)
[2018-10-26] MEDS: NEPRO 1,000 ML BOTTLE GT PRN (21:31)
[2018-10-26] MEDS: INSULIN GLARGINE, 100 UNIT/ML CARTRIDGE SQ SCH (22:03)
[2018-10-26] MEDS: BLOOD SUGAR DIAGNOSTIC 1 EACH STRIP IN SCH (23:34)
[2018-10-26] MEDS: INSULIN REGULAR, HUMAN 100 UNIT/ML 3 ML VIAL SQ PRN (23:35)
[2018-10-27] MEDS: ALBUTEROL FS 2.5 MG/0.5 ML VIAL.NEB NEB SCH ×4 (02:03→20:02)
[2018-10-27] MEDS: IPRATROPIUM NEB FS 0.5 MG/2.5 ML AMPUL.NEB IH SCH ×4 (02:03→20:02)
[2018-10-27] MEDS: SUCRALFATE 1 G/10 ML UDC GT SCH ×4 (02:30→20:38)
[2018-10-27] MEDS: PROSOURCE / PROSTAT (PYXIS) 30 ML UDC GT SCH ×3 (04:21→20:38)
[2018-10-27] MEDS: BLOOD SUGAR DIAGNOSTIC 1 EACH STRIP IN SCH ×4 (06:14→23:10)
[2018-10-27] MEDS: INSULIN REGULAR, HUMAN 100 UNIT/ML 3 ML VIAL SQ PRN ×4 (06:15→23:10)
[2018-10-27 07:29] VITALS: BP 167/74
[2018-10-27 08:14] VITALS: BP 144/81
--- NOTE | 2018-10-27 08:29 | NUR ---
Confirmed with Francisca at [facility], patient's dialysis schedule Q T,TH,S from [id number]. Spoke with Guillermina from [facility] to confirm transportation during dialysis days with pick up man scheduled at 1000 AM, Trip # [id number]. Endorsed.
[2018-10-27] MEDS: VIT B CMPLX 3/FA/VIT C/BIOTIN 1 TAB TABLET GT SCH (09:00)
[2018-10-27] MEDS: OMEPRAZOLE 20 MG GT SCH (09:00)
[2018-10-27] MEDS: ASCORBIC ACID 500 MG TABLET GT SCH (09:00)
[2018-10-27] MEDS: ACIDOPHILUS/BULGARICUS 1 EACH TAB.CHEW GT SCH ×2 (09:00→20:38)
[2018-10-27] MEDS: POLYVINYL ALCOHOL 15 ML BOTTLE EACHEYE SCH ×2 (09:00→20:38)
[2018-10-27] MEDS: ACETAMINOPHEN 650 MG/20.3 ML UDC GT SCH ×2 (09:00→20:38)
[2018-10-27] MEDS: METOCLOPRAMIDE HCL 10 MG/10 ML UDC GT SCH ×2 (09:00→20:38)
[2018-10-27] MEDS ORDERED: TUBERCULIN,PURIF.PROT.DERIV. 5 TU/0.1 ML VIAL ID ONE (09:00)
--- NOTE | 2018-10-27 10:00 | NUR ---
Seen and examined by Dr. Morejon, NNO given. Informed MD that patient's old GT site still leaking despite that it was sutured. According to Dr. Morejon to inform GI. Left a message to SUPERINTENDENT LAUNDRY Debby Redman regarding condition of GT site and when to increase feeding rate. Also left a message to chargeback analyst regarding goal to increase feeding up to 40 cc/hr, currently patient's feeding rate is at 30cc/hr. Awaiting for call back.
--- NOTE | 2018-10-27 10:24 | NUR ---
WOUND CARE CONSULT WOUND CARE RECEIVED CONSULT FOR NEW ADMISSION. WOUND CARE WILL DEFER CONSULT AND TREATMENT PLANS TO PLASTIC SURGICAL TEAM WHO ARE CURRENTLY FOLLOWING THIS PATIENT. PLASTIC SURGICAL TEAM NOTIFIED OF CONSULT BY MEDICAL RECORD ASSISTANT. ALL DISCUSSED WITH LOGISTICS SERVICE REPRESENTATIVE. WILL SEE PRN.
[2018-10-27] MEDS: MEROPENEM 500 MG in IV NS 0.9% 50 ML IV SCH ×2 (12:36→21:00)
--- NOTE | 2018-10-27 15:00 | NUR ---
Per child & adolescent psychiatrist, she is recommending to keep patient's feeding rate to 30cc/hr. and will reevaluate if condition of GT site improves. Endorsed.
[2018-10-27] MEDS ORDERED: CLOTRIMAZOLE 1% 15 GM TUBE TP SCH (18:30)
[2018-10-27] MEDS: Z GUARD REMEDY 2 OZ OINT TP SCH ×2 (18:46→21:48)
[2018-10-27 20:02] VITALS: BP 133/98
[2018-10-27] MEDS: INSULIN GLARGINE, 100 UNIT/ML CARTRIDGE SQ SCH (21:49)
[2018-10-28] MEDS: IPRATROPIUM NEB FS 0.5 MG/2.5 ML AMPUL.NEB IH SCH ×4 (01:32→19:29)
[2018-10-28] MEDS: ALBUTEROL FS 2.5 MG/0.5 ML VIAL.NEB NEB SCH ×4 (01:32→19:29)
[2018-10-28] MEDS: SUCRALFATE 1 G/10 ML UDC GT SCH ×3 (02:30→18:07)
[2018-10-28] MEDS: PROSOURCE / PROSTAT (PYXIS) 30 ML UDC GT SCH ×3 (04:30→20:30)
[2018-10-28] MEDS: BLOOD SUGAR DIAGNOSTIC 1 EACH STRIP IN SCH ×3 (06:29→18:11)
[2018-10-28] MEDS: INSULIN REGULAR, HUMAN 100 UNIT/ML 3 ML VIAL SQ PRN ×3 (06:30→18:12)
[2018-10-28] MEDS: DEXTROSE 50%-WATER 50 ML DISP.SYRIN IV PRN ×3 (06:33→16:36)
--- NOTE | 2018-10-28 06:34 | NUR ---
PT BS 31MG/DL,D50 IV PUSH GIVEN SA ORDERED.BP 142/81,HR 81,02 SATS 100%,RR 17,PT AWAKE ,NO DISTRESS.WILL RE CHECK BS.WILL CONTINUE TO MONITOR.
--- NOTE | 2018-10-28 06:57 | NUR ---
Repeat BS 108mg/dl
[2018-10-28 08:05] VITALS: BP 133/98
[2018-10-28] MEDS ORDERED: Z GUARD REMEDY 2 OZ OINT TP SCH (08:31)
[2018-10-28] MEDS: MIDODRINE HCL (5MG) 5 MG TABLET GT SCH (09:00)
[2018-10-28] MEDS: MEROPENEM 500 MG in IV NS 0.9% 50 ML IV SCH ×2 (09:00→21:10)
[2018-10-28] MEDS: ACETAMINOPHEN 650 MG/20.3 ML UDC GT SCH ×2 (09:40→21:59)
[2018-10-28] MEDS: ACIDOPHILUS/BULGARICUS 1 EACH TAB.CHEW GT SCH ×2 (09:43→21:59)
[2018-10-28] MEDS: OMEPRAZOLE 20 MG GT SCH (09:43)
[2018-10-28] MEDS: POLYVINYL ALCOHOL 15 ML BOTTLE EACHEYE SCH ×2 (09:43→21:59)
[2018-10-28] MEDS: METOCLOPRAMIDE HCL 10 MG/10 ML UDC GT SCH ×2 (09:44→21:59)
[2018-10-28] MEDS: ASCORBIC ACID 500 MG TABLET GT SCH (09:44)
[2018-10-28] MEDS: VIT B CMPLX 3/FA/VIT C/BIOTIN 1 TAB TABLET GT SCH (09:51)
[2018-10-28] MEDS: ZINC OXIDE 30 GM TUBE TP SCH ×3 (09:52→21:00)
[2018-10-28] MEDS: CLOTRIMAZOLE 1% 15 GM TUBE TP SCH ×2 (09:52→21:00)
[2018-10-28] MEDS: DAKINS QUARTER STRENGTH (0.125%) 480 ML BOTTLE TOP SCH ×2 (10:00→21:00)
--- NOTE | 2018-10-28 11:00 | NUR ---
EMT came to miner pick patient for hemodialysis, has clarification, patient has central line to her right femoral, if patient has central line needs RN or flooring grader to miner pick patient. Called [facility] and spoke to Lizbeth and will reschedule patients' dialysis at 12:30 pm today.
--- NOTE | 2018-10-28 11:40 | NUR ---
Patients' blood sugar 60, D 50 IV push given as prn ordered, rechecked at 1215, 108.
[2018-10-28] MEDS: NEPRO 1,000 ML BOTTLE GT PRN (12:00)
--- NOTE | 2018-10-28 12:30 | NUR ---
Patient fruit picker by ambulance with RN. RN made aware that patient had episode of low blood sugar this morning and at 1145 blood sugar was only 60, D 50 IV push given,rechecked 108.
--- NOTE | 2018-10-28 12:54 | NUR ---
Subacute RN notes pt blood sugar is 60@1150,given iv dextrose inj @1154.rechecked @1216 instead of 1254,it is 108 because pt is picked up to do dialysis.
--- NOTE | 2018-10-28 13:00 | NUR ---
Called Dr. Headley' office and left message to call back subacute.
--- NOTE | 2018-10-28 14:30 | NUR ---
Dr. Castro called and made him aware of patient had 2x episodes of low blood sugar, he ordered to discontinue current lantus order new order is to give lantus 10 units at night and 5 units in the morning. Noted and carried out.
--- NOTE | 2018-10-28 15:58 | NUR ---
Patient's psychosocial assessment was completed today, via telephone with patient's John Woodall [phone]. Patient's code status remains a Full Code. LUPILLO informed John that he would also need to sign admission paperwork, and John stated that he will be in during the weekend and that he can sign them then. LUPILLO stated that the paperwork will be left with nursing staff over the weekend, and that he could sign them when he comes in. John verbalized agreement. Subacute Director Pam informed of above.
[2018-10-28] MEDS ORDERED: VANCOMYCIN 500 MG in IV D5W 100 ML IV SCH ×3 (17:00)
--- NOTE | 2018-10-28 19:30 | NUR ---
Seen and examined by THOMAS Leija new order to dc previous order of Lantus.Change to Lantus 10 units QHS.
[2018-10-28] MEDS: Z GUARD REMEDY 4 OZ OINT TP SCH (21:00)
[2018-10-28] MEDS: NYSTATIN TOP POWDER 15 GM BOTTLE TP SCH ×3 (21:00)
[2018-10-28] MEDS: NEOMY SULF/BACITRAC ZN/POLY 15 GM TUBE TP SCH ×3 (21:00)
[2018-10-28] MEDS ORDERED: POVIDONE-IODINE OINT 28.4 GM TUBE TP SCH (21:00)
[2018-10-28] MEDS: BETADINE 5% CREAM TP SCH (21:00)
[2018-10-28] MEDS: INSULIN GLARGINE, 100 UNIT/ML CARTRIDGE SQ SCH (22:03)
[2018-10-29] MEDS: SUCRALFATE 1 G/10 ML UDC GT SCH ×5 (00:35→23:42)
[2018-10-29] MEDS: BLOOD SUGAR DIAGNOSTIC 1 EACH STRIP IN SCH ×5 (00:35→23:56)
[2018-10-29] MEDS: INSULIN REGULAR, HUMAN 100 UNIT/ML 3 ML VIAL SQ PRN ×4 (00:37→18:12)
[2018-10-29] MEDS: ALBUTEROL FS 2.5 MG/0.5 ML VIAL.NEB NEB SCH ×4 (00:53→19:02)
[2018-10-29] MEDS: IPRATROPIUM NEB FS 0.5 MG/2.5 ML AMPUL.NEB IH SCH ×4 (00:53→19:02)
[2018-10-29] MEDS: PROSOURCE / PROSTAT (PYXIS) 30 ML UDC GT SCH ×3 (05:12→20:25)
[2018-10-29] MEDS: OMEPRAZOLE 20 MG CAPSULE.DR GT SCH ×2 (05:12→17:53)
[2018-10-29] MEDS ORDERED: OMEPRAZOLE 20 MG CAPSULE.DR GT SCH (06:00)
[2018-10-29 07:30] VITALS: BP 132/53
[2018-10-29] MEDS: NYSTATIN TOP POWDER 15 GM BOTTLE TP SCH ×6 (09:00→20:46)
[2018-10-29] MEDS: NEOMY SULF/BACITRAC ZN/POLY 15 GM TUBE TP SCH ×6 (09:00→20:46)
[2018-10-29] MEDS: CLOTRIMAZOLE 1% 15 GM TUBE TP SCH ×2 (09:00→20:46)
[2018-10-29] MEDS: ZINC OXIDE 30 GM TUBE TP SCH ×4 (09:00→20:46)
[2018-10-29] MEDS: BETADINE 5% CREAM TP SCH ×2 (09:00→20:46)
[2018-10-29] MEDS ORDERED: INSULIN GLARGINE, 100 UNIT/ML CARTRIDGE SQ SCH (09:00)
[2018-10-29] MEDS: DAKINS QUARTER STRENGTH (0.125%) 480 ML BOTTLE TOP SCH ×2 (09:00→20:47)
[2018-10-29] MEDS: Z GUARD REMEDY 4 OZ OINT TP SCH ×2 (09:00→20:46)
[2018-10-29] MEDS: MEROPENEM 500 MG in IV NS 0.9% 50 ML IV SCH ×2 (09:05→20:30)
[2018-10-29] MEDS: ASCORBIC ACID 500 MG TABLET GT SCH (09:32)
[2018-10-29] MEDS: POLYVINYL ALCOHOL 15 ML BOTTLE EACHEYE SCH ×2 (09:32→20:25)
[2018-10-29] MEDS: VIT B CMPLX 3/FA/VIT C/BIOTIN 1 TAB TABLET GT SCH (09:32)
[2018-10-29] MEDS: ACIDOPHILUS/BULGARICUS 1 EACH TAB.CHEW GT SCH ×2 (09:32→20:31)
[2018-10-29] MEDS: ACETAMINOPHEN 650 MG/20.3 ML UDC GT SCH ×2 (09:32→20:31)
[2018-10-29] MEDS: METOCLOPRAMIDE HCL 10 MG/10 ML UDC GT SCH ×2 (09:32→20:26)
--- NOTE | 2018-10-29 14:50 | NUR ---
INTERDISCIPLINARY PLAN OF CARE CONFERENCE was held today Resident's responsible republican John unable to attend the meeting. Dr. Morejon and the interdisciplinary team discussed the current plan of care in detail. Current orders as well as treatments and medications were reviewed. Resident continue to receive IV ATB, GT stoma with minimal leaking. Endband Cutter Hand is recommending to increase feeding rate to 35 cc/hr. R femoral line intact, no bleeding note. AV fistula in the R FA + for bruit and trill. Resident's upper extremities edematous, elevate with pillows. Stable at this time, no significant change in condition.
--- NOTE | 2018-10-29 16:21 | NUR ---
SW checked in on patient today. Patient was in her assigned subacute bed, asleep. SW called out patient's name 3 times, and patient slowly opened her eyes. Patient not able to follow any commands; no verbal communication. SW unable to assess patient's orientation, mood, or behavior.
--- NOTE | 2018-10-29 16:30 | NUR ---
Spoke with Dr. Castro to clarify if patient will need L arm splint. Patient has hx of L distal humeral shaft fracture and has splint before she was transferred to acute hospital. According to Dr. Castro, the patient doesn't need it, she has the splint since March 2018. Asked MD if OK to increase GT feeding to 35 cc/hr, since there is leaking noted in the old GT site. According to MD is to ask GI. COORDINATOR HOTELS Debby Redman notified and assessed GT site, she said that it is OK to increase rate per disc ruler operator's recommendations. Order carried out.
--- NOTE | 2018-10-29 17:15 | NUR ---
RT NOTE: RT NOTE: RECEIVED PT ON NOTED ORDERED VENT SETTINGS. NO RESPIRATORY DISTRESS NOTED. TRACH CHECKED SECURE AND PATENT. SXD AND LAVAGED PT Q ROUND AND NEEDED. TXS GIVEN ORDERED WITH NO ADVERSE REACTIONS NOTED. TRACH CARE DONE. SPARE TRACH AND [place] BAG @ BEDSIDE. ALARMS CHECKED ON AND AUDIBLE. Addendum: 10/29/18 at 1716 by RACHELLE MENA RT Amended: Links added.
--- NOTE | 2018-10-29 19:10 | NUR ---
THOMAS Hollins made rounds and ordered to d/c all IV ATB, Merren and Vancomycin.
[2018-10-29] MEDS ORDERED: NEPRO 1,000 ML BOTTLE GT PRN (20:21)
[2018-10-29 20:23] VITALS: BP 118/75
[2018-10-29] MEDS: INSULIN GLARGINE, 100 UNIT/ML CARTRIDGE SQ SCH (21:28)
--- NOTE | 2018-10-30 | NUR ---
RN NOTES BLOOD PRESSURE 127/57, PULSE 96
[2018-10-30] MEDS: ALBUTEROL FS 2.5 MG/0.5 ML VIAL.NEB NEB SCH ×4 (00:35→19:51)
[2018-10-30] MEDS: IPRATROPIUM NEB FS 0.5 MG/2.5 ML AMPUL.NEB IH SCH ×4 (00:35→19:51)
[2018-10-30] MEDS: PROSOURCE / PROSTAT (PYXIS) 30 ML UDC GT SCH ×3 (04:30→20:30)
[2018-10-30] MEDS: OMEPRAZOLE 20 MG CAPSULE.DR GT SCH ×2 (05:52→17:09)
[2018-10-30] MEDS: SUCRALFATE 1 G/10 ML UDC GT SCH ×3 (05:52→17:09)
[2018-10-30] MEDS: BLOOD SUGAR DIAGNOSTIC 1 EACH STRIP IN SCH ×3 (05:52→18:09)
[2018-10-30] MEDS ORDERED: NEPRO 1,000 ML BOTTLE GT PRN (07:08)
[2018-10-30 07:52] VITALS: BP 145/55
[2018-10-30] MEDS: MIDODRINE HCL (5MG) 5 MG TABLET GT SCH (09:00)
[2018-10-30] MEDS: ACIDOPHILUS/BULGARICUS 1 EACH TAB.CHEW GT SCH ×2 (09:21→21:39)
[2018-10-30] MEDS: ASCORBIC ACID 500 MG TABLET GT SCH (09:21)
[2018-10-30] MEDS: POLYVINYL ALCOHOL 15 ML BOTTLE EACHEYE SCH ×2 (09:21→21:39)
[2018-10-30] MEDS: METOCLOPRAMIDE HCL 10 MG/10 ML UDC GT SCH ×2 (09:21→21:39)
[2018-10-30] MEDS: VIT B CMPLX 3/FA/VIT C/BIOTIN 1 TAB TABLET GT SCH (09:21)
[2018-10-30] MEDS: ACETAMINOPHEN 650 MG/20.3 ML UDC GT SCH ×2 (16:00→21:39)
--- NOTE | 2018-10-30 16:04 | NUR ---
RT NOTE: RECEIVED PT ON NOTED ORDERED VENT SETTINGS. NO RESPIRATORY DISTRESS NOTED. PT HAD HEMODIALYSIS TX WITH NO SOB OR COMPLICATIONS NOTED UPON LEAVING AND ARRIVING BACK @ FACILITY. TRACH CHECKED SECURE AND PATENT. SXD AND LAVAGED PT Q ROUND AND NEEDED. TXS GIVEN ORDERED WITH NO ADVERSE REACTIONS NOTED. TRACH CARE DONE. SPARE TRACH AND AMBU BAG @ BEDSIDE. ALARMS CHECKED ON AND AUDIBLE.
[2018-10-30] MEDS: NEOMY SULF/BACITRAC ZN/POLY 15 GM TUBE TP SCH ×6 (16:30→21:59)
[2018-10-30] MEDS: ZINC OXIDE 30 GM TUBE TP SCH ×4 (16:30→21:59)
[2018-10-30] MEDS: DAKINS QUARTER STRENGTH (0.125%) 480 ML BOTTLE TOP SCH ×2 (16:30→21:58)
[2018-10-30] MEDS: BETADINE 5% CREAM TP SCH ×2 (16:30→21:59)
[2018-10-30] MEDS: NYSTATIN TOP POWDER 15 GM BOTTLE TP SCH ×6 (16:30→21:59)
[2018-10-30] MEDS: Z GUARD REMEDY 4 OZ OINT TP SCH ×2 (16:30→21:59)
[2018-10-30] MEDS: CLOTRIMAZOLE 1% 15 GM TUBE TP SCH ×2 (16:30→21:59)
[2018-10-30] MEDS: INSULIN REGULAR, HUMAN 100 UNIT/ML 3 ML VIAL SQ PRN (18:10)
[2018-10-30 20:23] VITALS: BP 110/84
[2018-10-30] MEDS: INSULIN GLARGINE, 100 UNIT/ML CARTRIDGE SQ SCH (22:21)
[2018-10-31] MEDS: INSULIN REGULAR, HUMAN 100 UNIT/ML 3 ML VIAL SQ PRN ×4 (00:01→18:22)
[2018-10-31] MEDS: SUCRALFATE 1 G/10 ML UDC GT SCH ×4 (00:01→18:20)
[2018-10-31] MEDS: BLOOD SUGAR DIAGNOSTIC 1 EACH STRIP IN SCH ×4 (00:01→18:21)
[2018-10-31 00:05] VITALS: BP 125/64
[2018-10-31] MEDS: ALBUTEROL FS 2.5 MG/0.5 ML VIAL.NEB NEB SCH ×4 (01:38→19:12)
[2018-10-31] MEDS: IPRATROPIUM NEB FS 0.5 MG/2.5 ML AMPUL.NEB IH SCH ×4 (01:38→19:12)
[2018-10-31] MEDS: PROSOURCE / PROSTAT (PYXIS) 30 ML UDC GT SCH ×3 (04:53→20:33)
[2018-10-31 06:00] VITALS: BP 132/73
[2018-10-31] MEDS: OMEPRAZOLE 20 MG CAPSULE.DR GT SCH ×2 (06:01→18:20)
[2018-10-31 07:46] VITALS: BP 130/84
[2018-10-31] MEDS: ZINC OXIDE 30 GM TUBE TP SCH ×4 (09:00→20:43)
[2018-10-31] MEDS: Z GUARD REMEDY 4 OZ OINT TP SCH ×2 (09:00→20:42)
[2018-10-31] MEDS: CLOTRIMAZOLE 1% 15 GM TUBE TP SCH ×2 (09:00→20:41)
[2018-10-31] MEDS: BETADINE 5% CREAM TP SCH ×2 (09:00→20:42)
[2018-10-31] MEDS: NEOMY SULF/BACITRAC ZN/POLY 15 GM TUBE TP SCH ×6 (09:00→20:42)
[2018-10-31] MEDS: DAKINS QUARTER STRENGTH (0.125%) 480 ML BOTTLE TOP SCH ×2 (09:00→20:41)
[2018-10-31] MEDS: NYSTATIN TOP POWDER 15 GM BOTTLE TP SCH ×6 (09:00→20:42)
[2018-10-31] MEDS: METOCLOPRAMIDE HCL 10 MG/10 ML UDC GT SCH ×2 (09:43→20:34)
[2018-10-31] MEDS: VIT B CMPLX 3/FA/VIT C/BIOTIN 1 TAB TABLET GT SCH (09:43)
[2018-10-31] MEDS: ACETAMINOPHEN 650 MG/20.3 ML UDC GT SCH ×2 (09:43→20:40)
[2018-10-31] MEDS: POLYVINYL ALCOHOL 15 ML BOTTLE EACHEYE SCH ×2 (09:43→20:33)
[2018-10-31] MEDS: ACIDOPHILUS/BULGARICUS 1 EACH TAB.CHEW GT SCH ×2 (09:43→20:34)
[2018-10-31] MEDS: ASCORBIC ACID 500 MG TABLET GT SCH (09:43)
--- NOTE | 2018-10-31 11:17 | NUR ---
Informed Dr. Enrique Castro patient still has R femoral line, with order to remove central line. Nursing supervisor advertising dispatch clerks informed and sent ICU Charge nurse to remove the line. Resident placed on supine position, RN removed sutures and slowly pulled triple lumen femoral line with blue tip intact. Pressure dressing applied. Patient tolerated procedure, no bleeding noted at this time.
--- NOTE | 2018-10-31 12:27 | NUR ---
RT NOTE RECEIVED PT MECHANICALLY VENTILATED VIA CUFFED TRACHEOSTOMY TUBE. CUFF INFLATED. TRACH TUBE MIDLINE AND SECURE. VENTILATOR SETTINGS PRESCRIBED. ALARMS SET PER PROTOCOL AND AUDIBLE. VENT PLUGGED IN TO RED OUTLET. AMBU BAG AND BACK UP TRACH AT BED SIDE. NO DISTRESS NOTED. Addendum: 10/31/18 at 1227 by NATALIE DAMON RT Amended: Links added.
[2018-10-31 19:57] VITALS: BP 141/69
[2018-10-31] MEDS: INSULIN GLARGINE, 100 UNIT/ML CARTRIDGE SQ SCH (21:44)
[2018-11-01] MEDS: SUCRALFATE 1 G/10 ML UDC GT SCH ×4 (00:18→18:31)
[2018-11-01] MEDS: BLOOD SUGAR DIAGNOSTIC 1 EACH STRIP IN SCH ×5 (00:18→23:12)
[2018-11-01] MEDS: INSULIN REGULAR, HUMAN 100 UNIT/ML 3 ML VIAL SQ PRN ×5 (00:19→23:13)
[2018-11-01] MEDS: ALBUTEROL FS 2.5 MG/0.5 ML VIAL.NEB NEB SCH ×4 (01:09→19:40)
[2018-11-01] MEDS: IPRATROPIUM NEB FS 0.5 MG/2.5 ML AMPUL.NEB IH SCH ×4 (01:09→19:40)
[2018-11-01] MEDS: PROSOURCE / PROSTAT (PYXIS) 30 ML UDC GT SCH ×3 (04:30→21:17)
[2018-11-01] MEDS: OMEPRAZOLE 20 MG CAPSULE.DR GT SCH ×2 (05:46→18:31)
[2018-11-01 07:48] VITALS: BP_SYST 137; BP_SYST 189; BP_DIAS 51; BP_DIAS 89
[2018-11-01] MEDS: METOCLOPRAMIDE HCL 10 MG/10 ML UDC GT SCH ×2 (08:41→21:20)
[2018-11-01] MEDS: VIT B CMPLX 3/FA/VIT C/BIOTIN 1 TAB TABLET GT SCH (08:41)
[2018-11-01] MEDS: ACETAMINOPHEN 650 MG/20.3 ML UDC GT SCH ×2 (08:41→21:23)
[2018-11-01] MEDS: ACIDOPHILUS/BULGARICUS 1 EACH TAB.CHEW GT SCH ×2 (08:41→21:18)
[2018-11-01] MEDS: POLYVINYL ALCOHOL 15 ML BOTTLE EACHEYE SCH ×2 (08:41→21:18)
[2018-11-01] MEDS: ASCORBIC ACID 500 MG TABLET GT SCH (08:41)
[2018-11-01] MEDS: CLOTRIMAZOLE 1% 15 GM TUBE TP SCH ×2 (09:00→21:25)
[2018-11-01] MEDS: ZINC OXIDE 30 GM TUBE TP SCH ×4 (09:00→21:25)
[2018-11-01] MEDS: NEOMY SULF/BACITRAC ZN/POLY 15 GM TUBE TP SCH ×6 (09:00→21:25)
[2018-11-01] MEDS: BETADINE 5% CREAM TP SCH ×2 (09:00→21:25)
[2018-11-01] MEDS: NYSTATIN TOP POWDER 15 GM BOTTLE TP SCH ×6 (09:00→21:25)
[2018-11-01] MEDS: Z GUARD REMEDY 4 OZ OINT TP SCH ×2 (09:00→21:25)
[2018-11-01] MEDS: DAKINS QUARTER STRENGTH (0.125%) 480 ML BOTTLE TOP SCH ×2 (09:00→21:25)
[2018-11-01 19:46] VITALS: BP 129/56
[2018-11-01] MEDS: INSULIN GLARGINE, 100 UNIT/ML CARTRIDGE SQ SCH (22:00)
[2018-11-02] MEDS: ALBUTEROL FS 2.5 MG/0.5 ML VIAL.NEB NEB SCH ×4 (01:44→20:21)
[2018-11-02] MEDS: IPRATROPIUM NEB FS 0.5 MG/2.5 ML AMPUL.NEB IH SCH ×4 (01:44→20:21)
[2018-11-02] MEDS: PROSOURCE / PROSTAT (PYXIS) 30 ML UDC GT SCH ×3 (04:30→20:19)
[2018-11-02] MEDS: SUCRALFATE 1 G/10 ML UDC GT SCH ×4 (05:56→18:37)
[2018-11-02] MEDS: OMEPRAZOLE 20 MG CAPSULE.DR GT SCH ×2 (05:56→18:37)
[2018-11-02] MEDS: BLOOD SUGAR DIAGNOSTIC 1 EACH STRIP IN SCH ×3 (06:01→18:37)
[2018-11-02 07:18] VITALS: BP 140/57
[2018-11-02] MEDS: ACETAMINOPHEN 650 MG/20.3 ML UDC GT SCH ×2 (09:00→20:22)
[2018-11-02] MEDS: DAKINS QUARTER STRENGTH (0.125%) 480 ML BOTTLE TOP SCH ×2 (09:00→20:22)
[2018-11-02] MEDS: Z GUARD REMEDY 4 OZ OINT TP SCH ×2 (09:00→20:23)
[2018-11-02] MEDS: BETADINE 5% CREAM TP SCH ×2 (09:00→20:23)
[2018-11-02] MEDS: MIDODRINE HCL (5MG) 5 MG TABLET GT SCH (09:00)
[2018-11-02] MEDS: CLOTRIMAZOLE 1% 15 GM TUBE TP SCH ×2 (09:00→20:22)
[2018-11-02] MEDS: ZINC OXIDE 30 GM TUBE TP SCH ×4 (09:00→20:23)
[2018-11-02] MEDS: NYSTATIN TOP POWDER 15 GM BOTTLE TP SCH ×6 (09:00→20:23)
[2018-11-02] MEDS: NEOMY SULF/BACITRAC ZN/POLY 15 GM TUBE TP SCH ×6 (09:00→20:23)
[2018-11-02] MEDS: VIT B CMPLX 3/FA/VIT C/BIOTIN 1 TAB TABLET GT SCH (09:37)
[2018-11-02] MEDS: ACIDOPHILUS/BULGARICUS 1 EACH TAB.CHEW GT SCH ×2 (09:37→20:21)
[2018-11-02] MEDS: POLYVINYL ALCOHOL 15 ML BOTTLE EACHEYE SCH ×2 (09:37→20:20)
[2018-11-02] MEDS: ASCORBIC ACID 500 MG TABLET GT SCH (09:38)
[2018-11-02] MEDS: METOCLOPRAMIDE HCL 10 MG/10 ML UDC GT SCH ×2 (09:38→20:21)
--- NOTE | 2018-11-02 16:32 | NUR ---
[facility] said pt will have extra dialysis every Thursday until further notice. Arranged transportation with [facility], spoke with [facility]. Pt will be picked up tomorrow at 1645 pm. Arranged transportation for dialysis every Thursday. Trip # [id number]
[2018-11-02] MEDS: INSULIN REGULAR, HUMAN 100 UNIT/ML 3 ML VIAL SQ PRN (18:37)
[2018-11-02 20:43] VITALS: BP 122/60
[2018-11-02] MEDS: INSULIN GLARGINE, 100 UNIT/ML CARTRIDGE SQ SCH (21:24)
[2018-11-03] MEDS: BLOOD SUGAR DIAGNOSTIC 1 EACH STRIP IN SCH ×4 (00:36→18:00)
[2018-11-03] MEDS: SUCRALFATE 1 G/10 ML UDC GT SCH ×4 (00:36→18:00)
[2018-11-03] MEDS: INSULIN REGULAR, HUMAN 100 UNIT/ML 3 ML VIAL SQ PRN ×3 (00:37→11:29)
[2018-11-03] MEDS: ALBUTEROL FS 2.5 MG/0.5 ML VIAL.NEB NEB SCH ×4 (02:22→19:30)
[2018-11-03] MEDS: IPRATROPIUM NEB FS 0.5 MG/2.5 ML AMPUL.NEB IH SCH ×4 (02:22→19:30)
[2018-11-03] MEDS: PROSOURCE / PROSTAT (PYXIS) 30 ML UDC GT SCH ×3 (05:21→21:05)
[2018-11-03] MEDS: OMEPRAZOLE 20 MG CAPSULE.DR GT SCH ×2 (05:22→18:00)
[2018-11-03 07:50] VITALS: BP 115/74
[2018-11-03] MEDS: NYSTATIN TOP POWDER 15 GM BOTTLE TP SCH ×6 (09:00→21:08)
[2018-11-03] MEDS: BETADINE 5% CREAM TP SCH ×2 (09:00→21:09)
[2018-11-03] MEDS: ZINC OXIDE 30 GM TUBE TP SCH ×4 (09:00→21:09)
[2018-11-03] MEDS: Z GUARD REMEDY 4 OZ OINT TP SCH ×2 (09:00→21:09)
[2018-11-03] MEDS: CLOTRIMAZOLE 1% 15 GM TUBE TP SCH ×2 (09:00→21:08)
[2018-11-03] MEDS: DAKINS QUARTER STRENGTH (0.125%) 480 ML BOTTLE TOP SCH ×2 (09:00→21:08)
[2018-11-03] MEDS: NEOMY SULF/BACITRAC ZN/POLY 15 GM TUBE TP SCH ×6 (09:00→21:08)
[2018-11-03] MEDS: ASCORBIC ACID 500 MG TABLET GT SCH (09:30)
[2018-11-03] MEDS: METOCLOPRAMIDE HCL 10 MG/10 ML UDC GT SCH ×2 (09:30→21:06)
[2018-11-03] MEDS: ACIDOPHILUS/BULGARICUS 1 EACH TAB.CHEW GT SCH ×2 (09:30→21:05)
[2018-11-03] MEDS: VIT B CMPLX 3/FA/VIT C/BIOTIN 1 TAB TABLET GT SCH (09:30)
[2018-11-03] MEDS: POLYVINYL ALCOHOL 15 ML BOTTLE EACHEYE SCH ×2 (09:30→21:05)
[2018-11-03] MEDS: ACETAMINOPHEN 650 MG/20.3 ML UDC GT SCH ×2 (09:30→21:08)
--- NOTE | 2018-11-03 20:30 | NUR ---
Returned back from [facility] done.Vital signs stable.
[2018-11-03] MEDS: INSULIN GLARGINE, 100 UNIT/ML CARTRIDGE SQ SCH (21:59)
[2018-11-04] MEDS: SUCRALFATE 1 G/10 ML UDC GT SCH ×4 (00:17→17:18)
[2018-11-04] MEDS: BLOOD SUGAR DIAGNOSTIC 1 EACH STRIP IN SCH ×4 (00:17→18:49)
[2018-11-04] MEDS: INSULIN REGULAR, HUMAN 100 UNIT/ML 3 ML VIAL SQ PRN ×3 (00:19→18:50)
[2018-11-04] MEDS: IPRATROPIUM NEB FS 0.5 MG/2.5 ML AMPUL.NEB IH SCH ×4 (01:30→19:11)
[2018-11-04] MEDS: ALBUTEROL FS 2.5 MG/0.5 ML VIAL.NEB NEB SCH ×4 (01:30→19:12)
[2018-11-04] MEDS: PROSOURCE / PROSTAT (PYXIS) 30 ML UDC GT SCH ×3 (05:24→20:30)
[2018-11-04] MEDS: OMEPRAZOLE 20 MG CAPSULE.DR GT SCH ×2 (05:25→17:19)
[2018-11-04 07:52] VITALS: BP 102/73
[2018-11-04] MEDS: CLOTRIMAZOLE 1% 15 GM TUBE TP SCH ×2 (09:00→21:59)
[2018-11-04] MEDS: BETADINE 5% CREAM TP SCH ×2 (09:00→21:59)
[2018-11-04] MEDS: NYSTATIN TOP POWDER 15 GM BOTTLE TP SCH ×6 (09:00→21:59)
[2018-11-04] MEDS: NEOMY SULF/BACITRAC ZN/POLY 15 GM TUBE TP SCH ×6 (09:00→21:59)
[2018-11-04] MEDS: ACETAMINOPHEN 650 MG/20.3 ML UDC GT SCH ×2 (09:00→21:37)
[2018-11-04] MEDS: ZINC OXIDE 30 GM TUBE TP SCH ×3 (09:30→21:59)
[2018-11-04] MEDS: Z GUARD REMEDY 4 OZ OINT TP SCH ×2 (09:30→21:59)
[2018-11-04] MEDS: DAKINS QUARTER STRENGTH (0.125%) 480 ML BOTTLE TOP SCH (09:30)
[2018-11-04] MEDS: POLYVINYL ALCOHOL 15 ML BOTTLE EACHEYE SCH ×2 (09:38→21:37)
[2018-11-04] MEDS: ACIDOPHILUS/BULGARICUS 1 EACH TAB.CHEW GT SCH ×2 (09:39→21:37)
[2018-11-04] MEDS: VIT B CMPLX 3/FA/VIT C/BIOTIN 1 TAB TABLET GT SCH (09:40)
[2018-11-04] MEDS: ASCORBIC ACID 500 MG TABLET GT SCH (09:40)
[2018-11-04] MEDS: MIDODRINE HCL (5MG) 5 MG TABLET GT SCH (09:40)
[2018-11-04] MEDS: METOCLOPRAMIDE HCL 10 MG/10 ML UDC GT SCH ×2 (09:40→21:37)
--- NOTE | 2018-11-04 10:30 | NUR ---
Resident picked up by ambulance for dialysis at [facility]. Stable vital signs. Trach secured and midline,on mechanical ventilator. No s/s of resp distress or discomfort. Dialysis site on right forearm intact, no bleeding noted. All emergency equipment taken.
--- NOTE | 2018-11-04 11:49 | NUR ---
Called responsible green party John Woodall at [phone] to follow up admission intake forms. Able to speak with him, reminded regarding intake paper works that need to be completed. He said he will come by tomorrow. Informed him papers are ready in the nursing station and just to ask the charge nurse for it.
--- NOTE | 2018-11-04 12:40 | NUR ---
[facility] history tutor spoke with ASHIA Shankar. Referred dietary recommendations to Dr Wall. He ordered to give GT feeding Nepro at 40 mL/hr for 18 hours a day to make sure pt receives her total volume/calories per day even when she goes out for dialysis. He also ordered 1000 mL fluid restriction.
--- NOTE | 2018-11-04 14:45 | NUR ---
Resident came back from dialysis per [facility]. Stable. No s/s of resp. distress. Trach secured and midline. Diaysis site on RFA clean and dry, with pressure dressing in place. Placed back to bed and made comfortable. Will continue to monitor.
[2018-11-04 20:16] VITALS: BP 90/65
[2018-11-04] MEDS: HYDROGEL DRESSING 90 GM TUBE TP SCH (21:58)
[2018-11-04] MEDS: NYSTATIN/TRIAMCIN 15 GM CREAM 15 GM TUBE TP SCH (21:59)
[2018-11-04] MEDS: INSULIN GLARGINE, 100 UNIT/ML CARTRIDGE SQ SCH (22:19)
[2018-11-05 00:06] VITALS: BP 109/44
[2018-11-05] MEDS: BLOOD SUGAR DIAGNOSTIC 1 EACH STRIP IN SCH ×5 (00:19→23:11)
[2018-11-05] MEDS: SUCRALFATE 1 G/10 ML UDC GT SCH ×5 (00:19→23:32)
[2018-11-05] MEDS: INSULIN REGULAR, HUMAN 100 UNIT/ML 3 ML VIAL SQ PRN ×5 (00:21→22:55)
[2018-11-05] MEDS: IPRATROPIUM NEB FS 0.5 MG/2.5 ML AMPUL.NEB IH SCH ×4 (00:44→19:55)
[2018-11-05] MEDS: ALBUTEROL FS 2.5 MG/0.5 ML VIAL.NEB NEB SCH ×4 (00:44→19:55)
[2018-11-05] MEDS: PROSOURCE / PROSTAT (PYXIS) 30 ML UDC GT SCH ×3 (04:43→20:34)
[2018-11-05] MEDS: OMEPRAZOLE 20 MG CAPSULE.DR GT SCH ×2 (05:37→17:44)
[2018-11-05] MEDS: NEPRO 1,000 ML BOTTLE GT PRN (05:42)
[2018-11-05 06:00] VITALS: BP 109/52
[2018-11-05 07:34] VITALS: BP 127/95
[2018-11-05] MEDS: ACIDOPHILUS/BULGARICUS 1 EACH TAB.CHEW GT SCH ×2 (08:25→20:43)
[2018-11-05] MEDS: VIT B CMPLX 3/FA/VIT C/BIOTIN 1 TAB TABLET GT SCH (08:25)
[2018-11-05] MEDS: POLYVINYL ALCOHOL 15 ML BOTTLE EACHEYE SCH ×2 (08:25→20:35)
[2018-11-05] MEDS: ASCORBIC ACID 500 MG TABLET GT SCH (08:25)
[2018-11-05] MEDS: ACETAMINOPHEN 650 MG/20.3 ML UDC GT SCH ×2 (08:25→20:45)
[2018-11-05] MEDS: METOCLOPRAMIDE HCL 10 MG/10 ML UDC GT SCH ×2 (08:25→20:44)
[2018-11-05] MEDS: Z GUARD REMEDY 4 OZ OINT TP SCH ×2 (09:00→20:49)
[2018-11-05] MEDS: BETADINE 5% CREAM TP SCH ×2 (09:00→20:49)
[2018-11-05] MEDS: CLOTRIMAZOLE 1% 15 GM TUBE TP SCH ×2 (09:00→20:48)
[2018-11-05] MEDS: NYSTATIN TOP POWDER 15 GM BOTTLE TP SCH ×6 (09:00→20:49)
[2018-11-05] MEDS: NEOMY SULF/BACITRAC ZN/POLY 15 GM TUBE TP SCH ×6 (09:00→20:49)
[2018-11-05] MEDS: NYSTATIN/TRIAMCIN 15 GM CREAM 15 GM TUBE TP SCH ×2 (09:00→20:49)
[2018-11-05] MEDS: ZINC OXIDE 30 GM TUBE TP SCH ×2 (09:00→20:49)
[2018-11-05] MEDS: HYDROGEL DRESSING 90 GM TUBE TP SCH ×2 (09:00→20:48)
[2018-11-05 19:56] VITALS: BP 114/70
--- NOTE | 2018-11-05 20:36 | NUR ---
RT NOTE PATIENT RECEIVED TRACHED ON MECHANICAL VENTILATION. AMBU BAG/BACK UP TRACH @ BEDSIDE. TX GIVEN, NO ADVERSE REACTIONS NOTED. SX DONE, TRACH SECURED AND PATENT. ALARMS ON AND AUDIBLE. PATIENT STABLE, WILL CONTINUE TO MONITOR. CONT. POX. @ BEDSIDE. Addendum: 11/05/18 at 2036 by CARI TRIANA RT Amended: Links added.
[2018-11-05] MEDS: INSULIN GLARGINE, 100 UNIT/ML CARTRIDGE SQ SCH (22:52)
[2018-11-06] MEDS: IPRATROPIUM NEB FS 0.5 MG/2.5 ML AMPUL.NEB IH SCH ×3 (01:44→19:43)
[2018-11-06] MEDS: ALBUTEROL FS 2.5 MG/0.5 ML VIAL.NEB NEB SCH ×3 (01:44→19:43)
[2018-11-06] MEDS: PROSOURCE / PROSTAT (PYXIS) 30 ML UDC GT SCH ×3 (04:42→21:07)
[2018-11-06] MEDS: OMEPRAZOLE 20 MG CAPSULE.DR GT SCH ×2 (05:03→17:46)
[2018-11-06] MEDS: SUCRALFATE 1 G/10 ML UDC GT SCH ×3 (05:03→17:46)
[2018-11-06] MEDS: BLOOD SUGAR DIAGNOSTIC 1 EACH STRIP IN SCH ×3 (06:18→17:46)
[2018-11-06] MEDS: INSULIN REGULAR, HUMAN 100 UNIT/ML 3 ML VIAL SQ PRN ×2 (06:24→17:47)
[2018-11-06] MEDS: NEPRO 1,000 ML BOTTLE GT PRN (06:57)
[2018-11-06 07:25] VITALS: BP 93/77
[2018-11-06] MEDS: ACIDOPHILUS/BULGARICUS 1 EACH TAB.CHEW GT SCH ×2 (09:00→21:07)
[2018-11-06] MEDS: MIDODRINE HCL (5MG) 5 MG TABLET GT SCH (09:00)
[2018-11-06] MEDS: VIT B CMPLX 3/FA/VIT C/BIOTIN 1 TAB TABLET GT SCH (09:00)
[2018-11-06] MEDS: POLYVINYL ALCOHOL 15 ML BOTTLE EACHEYE SCH ×2 (09:00→21:07)
[2018-11-06] MEDS: ASCORBIC ACID 500 MG TABLET GT SCH (09:01)
[2018-11-06] MEDS: ACETAMINOPHEN 650 MG/20.3 ML UDC GT SCH ×2 (09:01→21:07)
[2018-11-06] MEDS: METOCLOPRAMIDE HCL 10 MG/10 ML UDC GT SCH ×2 (09:01→21:07)
[2018-11-06] MEDS: BETADINE 5% CREAM TP SCH ×2 (10:00→21:08)
[2018-11-06] MEDS: ZINC OXIDE 30 GM TUBE TP SCH ×2 (10:00→21:08)
[2018-11-06] MEDS: HYDROGEL DRESSING 90 GM TUBE TP SCH ×2 (10:00→21:07)
[2018-11-06] MEDS: NYSTATIN TOP POWDER 15 GM BOTTLE TP SCH ×6 (10:00→21:08)
[2018-11-06] MEDS: Z GUARD REMEDY 4 OZ OINT TP SCH ×2 (10:00→21:08)
[2018-11-06] MEDS: NEOMY SULF/BACITRAC ZN/POLY 15 GM TUBE TP SCH ×6 (10:00→21:08)
[2018-11-06] MEDS: NYSTATIN/TRIAMCIN 15 GM CREAM 15 GM TUBE TP SCH ×2 (10:00→21:07)
[2018-11-06] MEDS: CLOTRIMAZOLE 1% 15 GM TUBE TP SCH ×2 (10:00→21:07)
[2018-11-06 15:15] VITALS: BP 137/77
[2018-11-06 18:00] VITALS: BP 121/63
[2018-11-06 20:00] VITALS: BP 138/66
[2018-11-06] MEDS: INSULIN GLARGINE, 100 UNIT/ML CARTRIDGE SQ SCH (21:09)
[2018-11-07] MEDS: SUCRALFATE 1 G/10 ML UDC GT SCH ×4 (00:04→17:54)
[2018-11-07] MEDS: BLOOD SUGAR DIAGNOSTIC 1 EACH STRIP IN SCH ×4 (00:04→17:54)
[2018-11-07] MEDS: INSULIN REGULAR, HUMAN 100 UNIT/ML 3 ML VIAL SQ PRN ×4 (00:06→17:56)
[2018-11-07] MEDS: IPRATROPIUM NEB FS 0.5 MG/2.5 ML AMPUL.NEB IH SCH ×4 (01:27→19:47)
[2018-11-07] MEDS: ALBUTEROL FS 2.5 MG/0.5 ML VIAL.NEB NEB SCH ×4 (01:27→19:47)
--- NOTE | 2018-11-07 02:55 | NUR ---
RT NOTES TRACH TUBE IN PLACE, PATENT, AND SECURED WITH TRACH TIE. ALARMS ON AND AUDIBLE. VENT PLUGGED IN TO RED OUTLET. BACK UP TRACH AND AMBU BAG BY THE BEDSIDE. NO SIGNS OF ANY DISTRESS. Addendum: 11/07/18 at 0255 by THIERRY MEZA RT Amended: Links added.
[2018-11-07] MEDS: PROSOURCE / PROSTAT (PYXIS) 30 ML UDC GT SCH ×3 (04:30→20:30)
[2018-11-07] MEDS: OMEPRAZOLE 20 MG CAPSULE.DR GT SCH ×2 (06:12→17:54)
[2018-11-07 07:22] VITALS: BP 120/71
[2018-11-07] MEDS: ACIDOPHILUS/BULGARICUS 1 EACH TAB.CHEW GT SCH ×2 (08:51→21:00)
[2018-11-07] MEDS: POLYVINYL ALCOHOL 15 ML BOTTLE EACHEYE SCH ×2 (08:51→21:00)
[2018-11-07] MEDS: VIT B CMPLX 3/FA/VIT C/BIOTIN 1 TAB TABLET GT SCH (08:51)
[2018-11-07] MEDS: METOCLOPRAMIDE HCL 10 MG/10 ML UDC GT SCH ×2 (08:51→21:00)
[2018-11-07] MEDS: ASCORBIC ACID 500 MG TABLET GT SCH (08:52)
[2018-11-07] MEDS: ACETAMINOPHEN 650 MG/20.3 ML UDC GT SCH ×2 (08:52→21:00)
[2018-11-07] MEDS: CLOTRIMAZOLE 1% 15 GM TUBE TP SCH ×2 (09:00→21:00)
[2018-11-07] MEDS: NYSTATIN TOP POWDER 15 GM BOTTLE TP SCH ×6 (09:00→21:00)
[2018-11-07] MEDS: HYDROGEL DRESSING 90 GM TUBE TP SCH ×2 (09:00→21:00)
[2018-11-07] MEDS: NYSTATIN/TRIAMCIN 15 GM CREAM 15 GM TUBE TP SCH ×2 (09:00→21:00)
[2018-11-07] MEDS: ZINC OXIDE 30 GM TUBE TP SCH ×2 (09:00→21:00)
[2018-11-07] MEDS: NEOMY SULF/BACITRAC ZN/POLY 15 GM TUBE TP SCH ×6 (09:00→21:00)
[2018-11-07] MEDS: BETADINE 5% CREAM TP SCH ×2 (09:00→21:00)
[2018-11-07] MEDS: Z GUARD REMEDY 4 OZ OINT TP SCH ×2 (09:00→21:00)
[2018-11-07] MEDS: NEPRO 1,000 ML BOTTLE GT PRN (15:11)
[2018-11-07 20:34] VITALS: BP 95/74
[2018-11-07] MEDS: INSULIN GLARGINE, 100 UNIT/ML CARTRIDGE SQ SCH (22:05)
[2018-11-08] MEDS: BLOOD SUGAR DIAGNOSTIC 1 EACH STRIP IN SCH ×4 (00:40→17:30)
[2018-11-08] MEDS: SUCRALFATE 1 G/10 ML UDC GT SCH ×4 (00:40→17:30)
[2018-11-08] MEDS: INSULIN REGULAR, HUMAN 100 UNIT/ML 3 ML VIAL SQ PRN ×4 (00:45→17:31)
[2018-11-08] MEDS: ALBUTEROL FS 2.5 MG/0.5 ML VIAL.NEB NEB SCH ×4 (01:28→20:07)
[2018-11-08] MEDS: IPRATROPIUM NEB FS 0.5 MG/2.5 ML AMPUL.NEB IH SCH ×4 (01:28→20:07)
--- NOTE | 2018-11-08 02:05 | NUR ---
RT NOTES TRACH TUBE IN PLACE, PATENT, AND SECURED WITH TRACH TIE. ALARMS ON AND AUDIBLE. VENT PLUGGED IN TO RED OUTLET. BACK UP TRACH AND AMBU BAG BY THE BEDSIDE. NO SIGNS OF ANY DISTRESS. WILL CONTINUE TO MONITOR. Addendum: 11/08/18 at 0206 by THIERRY MEZA RT Amended: Links added.
[2018-11-08] MEDS: PROSOURCE / PROSTAT (PYXIS) 30 ML UDC GT SCH ×3 (04:30→20:15)
[2018-11-08] MEDS: OMEPRAZOLE 20 MG CAPSULE.DR GT SCH ×2 (05:32→17:30)
[2018-11-08 07:51] VITALS: BP 104/48
[2018-11-08] MEDS: POLYVINYL ALCOHOL 15 ML BOTTLE EACHEYE SCH ×2 (09:12→20:15)
[2018-11-08] MEDS: VIT B CMPLX 3/FA/VIT C/BIOTIN 1 TAB TABLET GT SCH (09:12)
[2018-11-08] MEDS: ACETAMINOPHEN 650 MG/20.3 ML UDC GT SCH ×2 (09:12→20:17)
[2018-11-08] MEDS: ASCORBIC ACID 500 MG TABLET GT SCH (09:12)
[2018-11-08] MEDS: ACIDOPHILUS/BULGARICUS 1 EACH TAB.CHEW GT SCH ×2 (09:12→20:16)
[2018-11-08] MEDS: METOCLOPRAMIDE HCL 10 MG/10 ML UDC GT SCH ×2 (09:12→20:17)
[2018-11-08] MEDS: NYSTATIN/TRIAMCIN 15 GM CREAM 15 GM TUBE TP SCH ×2 (09:13→20:18)
[2018-11-08] MEDS: CLOTRIMAZOLE 1% 15 GM TUBE TP SCH ×2 (09:13→20:18)
[2018-11-08] MEDS: NYSTATIN TOP POWDER 15 GM BOTTLE TP SCH ×6 (09:13→20:18)
[2018-11-08] MEDS: NEOMY SULF/BACITRAC ZN/POLY 15 GM TUBE TP SCH ×6 (09:13→20:18)
[2018-11-08] MEDS: HYDROGEL DRESSING 90 GM TUBE TP SCH ×2 (09:13→20:18)
[2018-11-08] MEDS: BETADINE 5% CREAM TP SCH ×2 (09:18→20:18)
[2018-11-08] MEDS: Z GUARD REMEDY 4 OZ OINT TP SCH ×2 (09:19→20:18)
[2018-11-08] MEDS: ZINC OXIDE 30 GM TUBE TP SCH ×2 (09:19→20:19)
--- NOTE | 2018-11-08 17:54 | NUR ---
RT NOTE PT REMAINS MECHANICALLY VENTILATED VIA CUFFED TRACHEOSTOMY TUBE. CUFF INFLATED. TRACH TUBE MIDLINE AND SECURE. VENTILATOR SETTINGS PRESCRIBED. ALARMS SET PER PROTOCOL AND AUDIBLE. VENT PLUGGED IN TO RED OUTLET. AMBU BAG AT BED SIDE. NO DISTRESS NOTED AT MOMENT. Addendum: 11/08/18 at 1754 by NATALIE DAMON RT Amended: Links added.
[2018-11-08 20:04] VITALS: BP 119/88
[2018-11-08] MEDS: INSULIN GLARGINE, 100 UNIT/ML CARTRIDGE SQ SCH (21:42)
[2018-11-08] MEDS: NEPRO 1,000 ML BOTTLE GT PRN (23:45)
[2018-11-09] MEDS: SUCRALFATE 1 G/10 ML UDC GT SCH ×4 (00:09→17:41)
[2018-11-09] MEDS: BLOOD SUGAR DIAGNOSTIC 1 EACH STRIP IN SCH ×4 (00:09→17:41)
[2018-11-09] MEDS: INSULIN REGULAR, HUMAN 100 UNIT/ML 3 ML VIAL SQ PRN ×3 (00:11→17:48)
[2018-11-09] MEDS: ALBUTEROL FS 2.5 MG/0.5 ML VIAL.NEB NEB SCH ×4 (01:41→19:25)
[2018-11-09] MEDS: IPRATROPIUM NEB FS 0.5 MG/2.5 ML AMPUL.NEB IH SCH ×4 (01:41→19:25)
[2018-11-09] MEDS: PROSOURCE / PROSTAT (PYXIS) 30 ML UDC GT SCH ×3 (05:29→20:14)
[2018-11-09] MEDS: OMEPRAZOLE 20 MG CAPSULE.DR GT SCH ×2 (05:31→17:41)
[2018-11-09 07:52] VITALS: BP 132/68
[2018-11-09] MEDS: POLYVINYL ALCOHOL 15 ML BOTTLE EACHEYE SCH ×2 (08:49→20:14)
[2018-11-09] MEDS: ASCORBIC ACID 500 MG TABLET GT SCH (08:50)
[2018-11-09] MEDS: ACETAMINOPHEN 650 MG/20.3 ML UDC GT SCH ×2 (08:50→20:16)
[2018-11-09] MEDS: METOCLOPRAMIDE HCL 10 MG/10 ML UDC GT SCH ×2 (08:50→20:16)
[2018-11-09] MEDS: ACIDOPHILUS/BULGARICUS 1 EACH TAB.CHEW GT SCH ×2 (08:50→20:14)
[2018-11-09] MEDS: MIDODRINE HCL (5MG) 5 MG TABLET GT SCH (08:50)
[2018-11-09] MEDS: VIT B CMPLX 3/FA/VIT C/BIOTIN 1 TAB TABLET GT SCH (08:50)
[2018-11-09] MEDS: NYSTATIN/TRIAMCIN 15 GM CREAM 15 GM TUBE TP SCH ×2 (09:00→20:17)
[2018-11-09] MEDS: Z GUARD REMEDY 4 OZ OINT TP SCH ×2 (09:00→20:18)
[2018-11-09] MEDS: NYSTATIN TOP POWDER 15 GM BOTTLE TP SCH ×6 (09:00→20:17)
[2018-11-09] MEDS: HYDROGEL DRESSING 90 GM TUBE TP SCH ×2 (09:00→20:16)
[2018-11-09] MEDS: ZINC OXIDE 30 GM TUBE TP SCH ×2 (09:00→20:18)
[2018-11-09] MEDS: NEOMY SULF/BACITRAC ZN/POLY 15 GM TUBE TP SCH ×6 (09:00→20:18)
[2018-11-09] MEDS: CLOTRIMAZOLE 1% 15 GM TUBE TP SCH ×2 (09:00→20:17)
[2018-11-09] MEDS: BETADINE 5% CREAM TP SCH ×2 (09:00→20:18)
[2018-11-09 20:01] VITALS: BP 126/69
[2018-11-09] MEDS: INSULIN GLARGINE, 100 UNIT/ML CARTRIDGE SQ SCH (21:17)
[2018-11-09] MEDS: HYDROGEN PEROXIDE 480 ML BOTTLE TP SCH (21:45)
[2018-11-10] MEDS: SUCRALFATE 1 G/10 ML UDC GT SCH ×4 (00:12→17:04)
[2018-11-10] MEDS: BLOOD SUGAR DIAGNOSTIC 1 EACH STRIP IN SCH ×4 (00:12→17:04)
[2018-11-10] MEDS: INSULIN REGULAR, HUMAN 100 UNIT/ML 3 ML VIAL SQ PRN ×4 (00:14→17:09)
[2018-11-10] MEDS: IPRATROPIUM NEB FS 0.5 MG/2.5 ML AMPUL.NEB IH SCH ×4 (01:35→19:30)
[2018-11-10] MEDS: ALBUTEROL FS 2.5 MG/0.5 ML VIAL.NEB NEB SCH ×4 (01:35→19:30)
[2018-11-10] MEDS: PROSOURCE / PROSTAT (PYXIS) 30 ML UDC GT SCH ×3 (05:17→21:15)
[2018-11-10] MEDS: OMEPRAZOLE 20 MG CAPSULE.DR GT SCH ×2 (05:19→17:04)
[2018-11-10 07:53] VITALS: BP 122/73
[2018-11-10] MEDS: VIT B CMPLX 3/FA/VIT C/BIOTIN 1 TAB TABLET GT SCH (08:48)
[2018-11-10] MEDS: POLYVINYL ALCOHOL 15 ML BOTTLE EACHEYE SCH ×2 (08:48→21:15)
[2018-11-10] MEDS: ACIDOPHILUS/BULGARICUS 1 EACH TAB.CHEW GT SCH ×2 (08:48→21:15)
[2018-11-10] MEDS: METOCLOPRAMIDE HCL 10 MG/10 ML UDC GT SCH ×2 (08:48→21:15)
[2018-11-10] MEDS: ACETAMINOPHEN 650 MG/20.3 ML UDC GT SCH ×2 (08:49→21:15)
[2018-11-10] MEDS: HYDROGEL DRESSING 90 GM TUBE TP SCH ×2 (08:49→21:50)
[2018-11-10] MEDS: ASCORBIC ACID 500 MG TABLET GT SCH (08:49)
[2018-11-10] MEDS: HYDROGEN PEROXIDE 480 ML BOTTLE TP SCH ×2 (08:50→21:05)
[2018-11-10] MEDS: NYSTATIN TOP POWDER 15 GM BOTTLE TP SCH ×6 (08:50→21:50)
[2018-11-10] MEDS: NEOMY SULF/BACITRAC ZN/POLY 15 GM TUBE TP SCH ×6 (08:50→21:50)
[2018-11-10] MEDS: CLOTRIMAZOLE 1% 15 GM TUBE TP SCH ×2 (08:50→21:50)
[2018-11-10] MEDS: NYSTATIN/TRIAMCIN 15 GM CREAM 15 GM TUBE TP SCH ×2 (08:50→21:50)
[2018-11-10] MEDS: Z GUARD REMEDY 4 OZ OINT TP SCH ×2 (08:51→21:50)
[2018-11-10] MEDS: ZINC OXIDE 30 GM TUBE TP SCH ×2 (08:51→21:50)
[2018-11-10] MEDS: BETADINE 5% CREAM TP SCH ×2 (08:51→21:50)
--- NOTE | 2018-11-10 15:38 | NUR ---
RT NOTE: PT WAS SCHEDULED MONTHLY TRACH CHANGE TODAY. PT HAS EXTRA HEMODIALYSIS TX @ 1700. PER DIRECTOR LILY MARINO HOLD TRACH CHANGE DUE TO DIALYSIS TX TODAY TO PREVENT ANY PT COMPLICATIONS. PROGRAMMING INTERN AWARE/ RT LEAD AWARE. WILL CONTINUE TO MONITOR CLOSELY.
--- NOTE | 2018-11-10 17:10 | NUR ---
Spoke with Dr. Enrique Castro to ask if he would like to resume patient's Heparin since patient did not come with Heparin order on her readmission. He said "no".
--- NOTE | 2018-11-10 17:44 | NUR ---
RT NOTE: RECEIVED PT ON NOTED VENT SETTINGS. NO RESPIRATORY DISTRESS NOTED. TRACH CHECKED SECURE AND PATENT. TRACH CHANGE NOT DONE TODAY PER DIRECTOR/NATURAL FOODS CLERK DUE TO PT'S EXTRA DAY OF HEMODIALYSIS TO PREVENT ANY COMPLICATIONS. RT LEAD NOTIFIED AND AWARE. SXD AND LAVAGED PT Q ROUND AND NEEDED. TXS GIVEN ORDERED WITH NO ADVERSE REACTIONS NOTED. TRACH CARE DONE. EMERGENCY EQUIPMENT @ BEDSIDE. ALARMS CHECKED. Addendum: 11/10/18 at 1745 by RACHELLE MENA RT Amended: Links added.
[2018-11-10 20:00] VITALS: BP 149/86
--- NOTE | 2018-11-10 21:08 | NUR ---
Resident came back from extra day of dialysis per [facility]. No s/s of resp. distress noted. vital signs stable. B/P 149/86, P98, R13, T98.8, O2 sat 99%. Trach at midline and secure. Diaysis site on RFA clean and dry, with pressure dressing in place. Placed back to bed and made comfortable. Will continue to monitor.
[2018-11-10] MEDS: NEPRO 1,000 ML BOTTLE GT PRN (21:15)
[2018-11-10] MEDS: INSULIN GLARGINE, 100 UNIT/ML CARTRIDGE SQ SCH (22:43)
[2018-11-11 00:15] VITALS: BP 110/48
[2018-11-11] MEDS: SUCRALFATE 1 G/10 ML UDC GT SCH ×5 (00:21→23:13)
[2018-11-11] MEDS: BLOOD SUGAR DIAGNOSTIC 1 EACH STRIP IN SCH ×5 (00:21→23:56)
[2018-11-11] MEDS: INSULIN REGULAR, HUMAN 100 UNIT/ML 3 ML VIAL SQ PRN ×5 (00:23→23:57)
[2018-11-11] MEDS: IPRATROPIUM NEB FS 0.5 MG/2.5 ML AMPUL.NEB IH SCH ×4 (01:15→19:16)
[2018-11-11] MEDS: ALBUTEROL FS 2.5 MG/0.5 ML VIAL.NEB NEB SCH ×4 (01:15→19:16)
--- NOTE | 2018-11-11 03:07 | NUR ---
RT NOTE PT RECEIVED ON MECH VENT ON THE FOLLOWING NOTED SETTINGS AFTER COMING BACK FROM DIALYSIS. PT SX'D, MOD THICK WHITE SECRETIONS NOTED. NO RESP DISTRESS NOTED AT THIS TIME. VENT IS PLUGGED INTO RED OUTLET AND ALARMS ARE ON AND AUDIBLE. TRACH CARE IS DONE. AMBU BAG AND SPARE TRACH ARE AT BEDSIDE. WILL CONT TO MONITOR PT THROUGH OUT THE NIGHT.
[2018-11-11] MEDS: PROSOURCE / PROSTAT (PYXIS) 30 ML UDC GT SCH ×3 (04:46→21:09)
[2018-11-11 06:04] VITALS: BP 139/82
[2018-11-11] MEDS: OMEPRAZOLE 20 MG CAPSULE.DR GT SCH ×2 (06:22→18:31)
[2018-11-11 07:19] VITALS: BP 144/79
[2018-11-11] MEDS: MIDODRINE HCL (5MG) 5 MG TABLET GT SCH (09:00)
[2018-11-11] MEDS: ACETAMINOPHEN 650 MG/20.3 ML UDC GT SCH ×2 (09:00→21:09)
[2018-11-11] MEDS: HYDROGEN PEROXIDE 480 ML BOTTLE TP SCH ×2 (09:00→20:09)
[2018-11-11] MEDS: VIT B CMPLX 3/FA/VIT C/BIOTIN 1 TAB TABLET GT SCH (09:00)
[2018-11-11] MEDS: ACIDOPHILUS/BULGARICUS 1 EACH TAB.CHEW GT SCH ×2 (09:00→21:09)
[2018-11-11] MEDS: METOCLOPRAMIDE HCL 10 MG/10 ML UDC GT SCH ×2 (09:00→21:09)
[2018-11-11] MEDS: POLYVINYL ALCOHOL 15 ML BOTTLE EACHEYE SCH ×2 (09:00→21:09)
[2018-11-11] MEDS: ASCORBIC ACID 500 MG TABLET GT SCH (09:00)
[2018-11-11] MEDS: ZINC OXIDE 30 GM TUBE TP SCH ×2 (09:30→22:00)
[2018-11-11] MEDS: NYSTATIN/TRIAMCIN 15 GM CREAM 15 GM TUBE TP SCH ×2 (09:30→22:00)
[2018-11-11] MEDS: CLOTRIMAZOLE 1% 15 GM TUBE TP SCH ×2 (09:30→22:00)
[2018-11-11] MEDS: HYDROGEL DRESSING 90 GM TUBE TP SCH ×2 (09:30→22:00)
[2018-11-11] MEDS: Z GUARD REMEDY 4 OZ OINT TP SCH ×2 (09:30→22:00)
[2018-11-11] MEDS: BETADINE 5% CREAM TP SCH ×2 (09:30→22:00)
[2018-11-11] MEDS: NYSTATIN TOP POWDER 15 GM BOTTLE TP SCH ×6 (09:30→22:00)
[2018-11-11] MEDS: NEOMY SULF/BACITRAC ZN/POLY 15 GM TUBE TP SCH ×3 (09:30)
[2018-11-11 15:00] VITALS: BP 146/82
--- NOTE | 2018-11-11 16:45 | NUR ---
RT MONTHLY TRACH CHANGE DONE PER MD ORDER. NO RESPIRATORY COMPLICATIONS NOTED. TOLERATED PROCEDURE WELL. AIRWAY PATENT AND TRACH SECURE. AMBU BAG AND SPARE TRACH AT HEAD OF BED. NO SOB OR SIGNS OF DISTRESS NOTED AT THIS TIME. RN NOTIFIED AND AWARE. WILL CONTINUE TO MONITOR THE PATIENT CLOSELY FOR ANY CHANGES.
[2018-11-11 18:53] VITALS: BP 155/77
[2018-11-11 19:56] VITALS: BP 158/71
[2018-11-11] MEDS: INSULIN GLARGINE, 100 UNIT/ML CARTRIDGE SQ SCH (21:52)
[2018-11-12 00:30] VITALS: BP 105/75
[2018-11-12] MEDS: IPRATROPIUM NEB FS 0.5 MG/2.5 ML AMPUL.NEB IH SCH ×4 (00:33→19:41)
[2018-11-12] MEDS: ALBUTEROL FS 2.5 MG/0.5 ML VIAL.NEB NEB SCH ×4 (00:33→19:41)
[2018-11-12] MEDS: PROSOURCE / PROSTAT (PYXIS) 30 ML UDC GT SCH ×3 (04:30→20:30)
[2018-11-12] MEDS: SUCRALFATE 1 G/10 ML UDC GT SCH ×3 (05:49→17:21)
[2018-11-12] MEDS: OMEPRAZOLE 20 MG CAPSULE.DR GT SCH ×2 (05:49→17:21)
[2018-11-12] MEDS: BLOOD SUGAR DIAGNOSTIC 1 EACH STRIP IN SCH ×3 (05:49→17:21)
[2018-11-12] MEDS: INSULIN REGULAR, HUMAN 100 UNIT/ML 3 ML VIAL SQ PRN ×3 (05:50→17:20)
[2018-11-12] MEDS: NEPRO 1,000 ML BOTTLE GT PRN (06:04)
[2018-11-12 06:06] VITALS: BP 104/69
[2018-11-12 08:05] VITALS: BP 126/64
[2018-11-12] MEDS: HYDROGEN PEROXIDE 480 ML BOTTLE TP SCH ×2 (09:00→21:52)
[2018-11-12] MEDS: ACETAMINOPHEN 650 MG/20.3 ML UDC GT SCH ×2 (09:08→21:31)
[2018-11-12] MEDS: POLYVINYL ALCOHOL 15 ML BOTTLE EACHEYE SCH ×2 (09:08→21:31)
[2018-11-12] MEDS: VIT B CMPLX 3/FA/VIT C/BIOTIN 1 TAB TABLET GT SCH (09:08)
[2018-11-12] MEDS: ASCORBIC ACID 500 MG TABLET GT SCH (09:08)
[2018-11-12] MEDS: ACIDOPHILUS/BULGARICUS 1 EACH TAB.CHEW GT SCH ×2 (09:08→21:31)
[2018-11-12] MEDS: METOCLOPRAMIDE HCL 10 MG/10 ML UDC GT SCH ×2 (09:08→21:31)
[2018-11-12] MEDS: NYSTATIN TOP POWDER 15 GM BOTTLE TP SCH ×6 (09:40→21:52)
[2018-11-12] MEDS: HYDROGEL DRESSING 90 GM TUBE TP SCH ×2 (09:40→21:52)
[2018-11-12] MEDS: BETADINE 5% CREAM TP SCH ×2 (09:40→21:52)
[2018-11-12] MEDS: Z GUARD REMEDY 4 OZ OINT TP SCH ×2 (09:40→21:52)
[2018-11-12] MEDS: ZINC OXIDE 30 GM TUBE TP SCH ×2 (09:40→21:52)
[2018-11-12] MEDS: CLOTRIMAZOLE 1% 15 GM TUBE TP SCH ×2 (10:40→21:52)
[2018-11-12] MEDS: NYSTATIN/TRIAMCIN 15 GM CREAM 15 GM TUBE TP SCH ×2 (10:40→21:52)
--- NOTE | 2018-11-12 12:09 | NUR ---
Called again responsible constitution party John to follow up signing of admission papers. He said he will come tomorrow to sign the papers. Emphasized with him importance of completing the admission papers by tomorrow and he understood
[2018-11-12 12:45] VITALS: BP 138/76
--- NOTE | 2018-11-12 16:45 | NUR ---
Received order to give Neutraphos 1 packet via GT BID for hypophosphatemia per [facility] recommendation.
[2018-11-12 18:34] VITALS: BP 143/62
[2018-11-12 20:09] VITALS: BP 149/78
[2018-11-12] MEDS: INSULIN GLARGINE, 100 UNIT/ML CARTRIDGE SQ SCH (21:32)
[2018-11-13] MEDS: INSULIN REGULAR, HUMAN 100 UNIT/ML 3 ML VIAL SQ PRN ×5 (00:04→23:52)
[2018-11-13] MEDS: SUCRALFATE 1 G/10 ML UDC GT SCH ×5 (00:05→23:51)
[2018-11-13 00:24] VITALS: BP 99/75
[2018-11-13] MEDS: ALBUTEROL FS 2.5 MG/0.5 ML VIAL.NEB NEB SCH ×4 (01:29→19:54)
[2018-11-13] MEDS: IPRATROPIUM NEB FS 0.5 MG/2.5 ML AMPUL.NEB IH SCH ×4 (01:29→19:54)
[2018-11-13] MEDS: PROSOURCE / PROSTAT (PYXIS) 30 ML UDC GT SCH ×3 (04:30→21:08)
[2018-11-13] MEDS: OMEPRAZOLE 20 MG CAPSULE.DR GT SCH ×2 (05:58→17:56)
[2018-11-13] MEDS: BLOOD SUGAR DIAGNOSTIC 1 EACH STRIP IN SCH ×5 (05:59→23:51)
[2018-11-13 06:05] VITALS: BP 97/78
[2018-11-13 07:40] VITALS: BP 120/76
[2018-11-13] MEDS: NEUTRA PHOS 1 POWD.PACKET GT SCH ×2 (09:37→17:56)
[2018-11-13] MEDS: POLYVINYL ALCOHOL 15 ML BOTTLE EACHEYE SCH ×2 (09:37→21:08)
[2018-11-13] MEDS: VIT B CMPLX 3/FA/VIT C/BIOTIN 1 TAB TABLET GT SCH (09:37)
[2018-11-13] MEDS: ACETAMINOPHEN 650 MG/20.3 ML UDC GT SCH ×2 (09:37→21:08)
[2018-11-13] MEDS: ASCORBIC ACID 500 MG TABLET GT SCH (09:37)
[2018-11-13] MEDS: ACIDOPHILUS/BULGARICUS 1 EACH TAB.CHEW GT SCH ×2 (09:37→21:08)
[2018-11-13] MEDS: METOCLOPRAMIDE HCL 10 MG/10 ML UDC GT SCH ×2 (09:37→21:08)
[2018-11-13] MEDS: MIDODRINE HCL (5MG) 5 MG TABLET GT SCH (09:37)
[2018-11-13] MEDS: HYDROGEN PEROXIDE 480 ML BOTTLE TP SCH ×2 (10:01→21:28)
[2018-11-13] MEDS: HYDROGEL DRESSING 90 GM TUBE TP SCH ×2 (10:10→21:28)
[2018-11-13] MEDS: BETADINE 5% CREAM TP SCH ×2 (10:10→21:29)
[2018-11-13] MEDS: NYSTATIN TOP POWDER 15 GM BOTTLE TP SCH ×6 (10:10→21:29)
[2018-11-13] MEDS: ZINC OXIDE 30 GM TUBE TP SCH ×2 (10:10→21:29)
[2018-11-13] MEDS: NYSTATIN/TRIAMCIN 15 GM CREAM 15 GM TUBE TP SCH ×2 (10:10→21:29)
[2018-11-13] MEDS: Z GUARD REMEDY 4 OZ OINT TP SCH ×2 (10:10→21:29)
[2018-11-13] MEDS: CLOTRIMAZOLE 1% 15 GM TUBE TP SCH ×2 (10:10→21:29)
[2018-11-13 16:00] VITALS: BP 91/66
[2018-11-13 18:49] VITALS: BP 104/60
[2018-11-13 20:26] VITALS: BP 112/58
[2018-11-13] MEDS: INSULIN GLARGINE, 100 UNIT/ML CARTRIDGE SQ SCH (21:10)
[2018-11-14 00:30] VITALS: BP 118/58
[2018-11-14] MEDS: ALBUTEROL FS 2.5 MG/0.5 ML VIAL.NEB NEB SCH ×4 (01:43→19:26)
[2018-11-14] MEDS: IPRATROPIUM NEB FS 0.5 MG/2.5 ML AMPUL.NEB IH SCH ×4 (01:43→19:26)
[2018-11-14] MEDS: PROSOURCE / PROSTAT (PYXIS) 30 ML UDC GT SCH ×3 (04:30→20:27)
--- NOTE | 2018-11-14 05:04 | NUR ---
PT REC'D TRACHED ON [facility] VENT ON AC MODE ON NOTED SETTINGS. NO RESP DISTRESS OR SOB NOTED. TRACH PATENT AND SECURED. PT SX'D FOR THICK MOD AMT OF PALE YELLOW SECRETIONS. ALARMS ARE SET AND AUDIBLE. VENT PLUGGED INTO RED OUTLET. AMBU BAG BEDSIDE. Addendum: 11/14/18 at 0505 by LOUISA CRUZ RT Amended: Links added.
[2018-11-14] MEDS: BLOOD SUGAR DIAGNOSTIC 1 EACH STRIP IN SCH ×4 (05:32→23:40)
[2018-11-14] MEDS: OMEPRAZOLE 20 MG CAPSULE.DR GT SCH ×2 (05:32→17:12)
[2018-11-14] MEDS: SUCRALFATE 1 G/10 ML UDC GT SCH ×4 (05:32→23:27)
[2018-11-14] MEDS: INSULIN REGULAR, HUMAN 100 UNIT/ML 3 ML VIAL SQ PRN ×3 (05:35→17:13)
[2018-11-14 06:07] VITALS: BP 139/75
[2018-11-14 08:10] VITALS: BP 112/76
[2018-11-14] MEDS: CLOTRIMAZOLE 1% 15 GM TUBE TP SCH ×2 (09:00→20:15)
[2018-11-14] MEDS: BETADINE 5% CREAM TP SCH ×2 (09:00→20:14)
[2018-11-14] MEDS: HYDROGEL DRESSING 90 GM TUBE TP SCH ×2 (09:00→20:15)
[2018-11-14] MEDS: Z GUARD REMEDY 4 OZ OINT TP SCH ×2 (09:00→20:14)
[2018-11-14] MEDS: NYSTATIN/TRIAMCIN 15 GM CREAM 15 GM TUBE TP SCH ×2 (09:00→20:15)
[2018-11-14] MEDS: ZINC OXIDE 30 GM TUBE TP SCH ×2 (09:00→20:21)
[2018-11-14] MEDS: NYSTATIN TOP POWDER 15 GM BOTTLE TP SCH ×6 (09:00→20:20)
[2018-11-14] MEDS: HYDROGEN PEROXIDE 480 ML BOTTLE TP SCH ×2 (09:00→20:15)
[2018-11-14] MEDS: POLYVINYL ALCOHOL 15 ML BOTTLE EACHEYE SCH ×2 (09:03→20:20)
[2018-11-14] MEDS: METOCLOPRAMIDE HCL 10 MG/10 ML UDC GT SCH ×2 (09:03→20:20)
[2018-11-14] MEDS: ACETAMINOPHEN 650 MG/20.3 ML UDC GT SCH ×2 (09:03→20:20)
[2018-11-14] MEDS: NEUTRA PHOS 1 POWD.PACKET GT SCH ×2 (09:03→17:12)
[2018-11-14] MEDS: ACIDOPHILUS/BULGARICUS 1 EACH TAB.CHEW GT SCH ×2 (09:03→20:20)
[2018-11-14] MEDS: ASCORBIC ACID 500 MG TABLET GT SCH (09:03)
[2018-11-14] MEDS: VIT B CMPLX 3/FA/VIT C/BIOTIN 1 TAB TABLET GT SCH (09:03)
[2018-11-14 12:00] VITALS: BP 115/62
[2018-11-14 18:32] VITALS: BP 132/71
[2018-11-14 20:58] VITALS: BP 132/73
[2018-11-14] MEDS: INSULIN GLARGINE, 100 UNIT/ML CARTRIDGE SQ SCH (22:05)
[2018-11-15 00:28] VITALS: BP 132/73
[2018-11-15] MEDS: IPRATROPIUM NEB FS 0.5 MG/2.5 ML AMPUL.NEB IH SCH ×4 (00:59→19:09)
[2018-11-15] MEDS: ALBUTEROL FS 2.5 MG/0.5 ML VIAL.NEB NEB SCH ×4 (01:00→19:09)
[2018-11-15] MEDS: PROSOURCE / PROSTAT (PYXIS) 30 ML UDC GT SCH ×3 (05:27→20:59)
[2018-11-15] MEDS: OMEPRAZOLE 20 MG CAPSULE.DR GT SCH ×2 (06:20→17:39)
[2018-11-15] MEDS: SUCRALFATE 1 G/10 ML UDC GT SCH ×4 (06:20→23:47)
[2018-11-15] MEDS: BLOOD SUGAR DIAGNOSTIC 1 EACH STRIP IN SCH ×4 (06:20→23:47)
[2018-11-15 06:32] VITALS: BP 126/74
[2018-11-15 07:13] VITALS: BP 131/54
[2018-11-15] MEDS: POLYVINYL ALCOHOL 15 ML BOTTLE EACHEYE SCH ×2 (08:14→21:00)
[2018-11-15] MEDS: VIT B CMPLX 3/FA/VIT C/BIOTIN 1 TAB TABLET GT SCH (08:15)
[2018-11-15] MEDS: NEUTRA PHOS 1 POWD.PACKET GT SCH ×2 (08:15→17:39)
[2018-11-15] MEDS: ACIDOPHILUS/BULGARICUS 1 EACH TAB.CHEW GT SCH ×2 (08:15→21:00)
[2018-11-15] MEDS: ASCORBIC ACID 500 MG TABLET GT SCH (08:15)
[2018-11-15] MEDS: METOCLOPRAMIDE HCL 10 MG/10 ML UDC GT SCH ×2 (08:15→21:00)
[2018-11-15] MEDS: ACETAMINOPHEN 650 MG/20.3 ML UDC GT SCH ×2 (08:15→21:00)
[2018-11-15] MEDS: HYDROGEN PEROXIDE 480 ML BOTTLE TP SCH ×2 (09:00→20:59)
[2018-11-15] MEDS: NYSTATIN/TRIAMCIN 15 GM CREAM 15 GM TUBE TP SCH ×2 (09:15→21:00)
[2018-11-15] MEDS: BETADINE 5% CREAM TP SCH ×2 (09:15→21:01)
[2018-11-15] MEDS: CLOTRIMAZOLE 1% 15 GM TUBE TP SCH ×2 (09:15→21:00)
[2018-11-15] MEDS: NYSTATIN TOP POWDER 15 GM BOTTLE TP SCH ×6 (09:15→21:00)
[2018-11-15] MEDS: HYDROGEL DRESSING 90 GM TUBE TP SCH ×2 (09:15→21:00)
[2018-11-15] MEDS: Z GUARD REMEDY 4 OZ OINT TP SCH ×2 (09:15→21:01)
[2018-11-15] MEDS: ZINC OXIDE 30 GM TUBE TP SCH ×2 (09:15→21:01)
[2018-11-15] MEDS: INSULIN REGULAR, HUMAN 100 UNIT/ML 3 ML VIAL SQ PRN ×3 (11:26→23:48)
[2018-11-15 12:00] VITALS: BP 110/61
--- NOTE | 2018-11-15 17:31 | NUR ---
RT NOTE PT REMAINS MECHANICALLY VENTILATED VIA CUFFED TRACHEOSTOMY TUBE. CUFF INFLATED. TRACH TUBE MIDLINE AND SECURE. VENTILATOR SETTINGS PRESCRIBED. ALARMS SET PER PROTOCOL AND AUDIBLE. VENT PLUGGED IN TO RED OUTLET. AMBU BAG AND BACK UP TRACH AT BED SIDE. NO DISTRESS NOTED. Addendum: 11/15/18 at 1731 by NATALIE DAMON RT Amended: Links added.
[2018-11-15 18:11] VITALS: BP 141/74
[2018-11-15 19:49] VITALS: BP 110/55
--- NOTE | 2018-11-15 20:00 | NUR ---
RN NOTES Seen by Hellen Leija NP, with new order: D/C Midrodrien 5mg Gt change to Midrodrine 10mg via gt every Thursday, , Thursday- hold for SBP greater than 120 (orthostatic hypotesion), noted and carried out.
[2018-11-15] MEDS: INSULIN GLARGINE, 100 UNIT/ML CARTRIDGE SQ SCH (21:04)
[2018-11-16] MEDS: IPRATROPIUM NEB FS 0.5 MG/2.5 ML AMPUL.NEB IH SCH ×4 (01:15→19:48)
[2018-11-16] MEDS: ALBUTEROL FS 2.5 MG/0.5 ML VIAL.NEB NEB SCH ×4 (01:15→19:48)
[2018-11-16 03:23] VITALS: BP 130/70
[2018-11-16] MEDS: PROSOURCE / PROSTAT (PYXIS) 30 ML UDC GT SCH ×3 (04:30→21:19)
[2018-11-16] MEDS: OMEPRAZOLE 20 MG CAPSULE.DR GT SCH ×2 (05:56→17:05)
[2018-11-16] MEDS: SUCRALFATE 1 G/10 ML UDC GT SCH ×3 (05:56→17:04)
[2018-11-16] MEDS: BLOOD SUGAR DIAGNOSTIC 1 EACH STRIP IN SCH ×3 (05:56→17:05)
[2018-11-16] MEDS: INSULIN REGULAR, HUMAN 100 UNIT/ML 3 ML VIAL SQ PRN ×2 (05:57→17:11)
[2018-11-16 06:13] VITALS: BP 119/68
[2018-11-16 08:00] VITALS: BP 103/75
[2018-11-16] MEDS: ACIDOPHILUS/BULGARICUS 1 EACH TAB.CHEW GT SCH ×2 (08:42→21:19)
[2018-11-16] MEDS: POLYVINYL ALCOHOL 15 ML BOTTLE EACHEYE SCH ×2 (08:42→21:19)
[2018-11-16] MEDS: VIT B CMPLX 3/FA/VIT C/BIOTIN 1 TAB TABLET GT SCH (08:43)
[2018-11-16] MEDS: ASCORBIC ACID 500 MG TABLET GT SCH (08:48)
[2018-11-16] MEDS: METOCLOPRAMIDE HCL 10 MG/10 ML UDC GT SCH ×2 (08:48→21:19)
[2018-11-16] MEDS: ACETAMINOPHEN 650 MG/20.3 ML UDC GT SCH ×2 (08:49→21:19)
[2018-11-16] MEDS: NEUTRA PHOS 1 POWD.PACKET GT SCH ×2 (08:49→17:04)
[2018-11-16] MEDS ORDERED: MIDODRINE HCL (5MG) 5 MG TABLET GT SCH (09:00)
[2018-11-16] MEDS: NYSTATIN/TRIAMCIN 15 GM CREAM 15 GM TUBE TP SCH ×2 (09:49→21:19)
[2018-11-16] MEDS: CLOTRIMAZOLE 1% 15 GM TUBE TP SCH ×2 (09:49→21:19)
[2018-11-16] MEDS: HYDROGEN PEROXIDE 480 ML BOTTLE TP SCH ×2 (09:49→10:04)
[2018-11-16] MEDS: HYDROGEL DRESSING 90 GM TUBE TP SCH ×2 (09:49→21:19)
[2018-11-16] MEDS: Z GUARD REMEDY 4 OZ OINT TP SCH ×2 (09:50→21:23)
[2018-11-16] MEDS: BETADINE 5% CREAM TP SCH ×2 (09:50→21:23)
[2018-11-16] MEDS: NYSTATIN TOP POWDER 15 GM BOTTLE TP SCH ×6 (09:50→21:23)
[2018-11-16] MEDS: ZINC OXIDE 30 GM TUBE TP SCH ×2 (09:51→21:23)
--- NOTE | 2018-11-16 10:20 | NUR ---
RN NOTES-- PT LEFT FOR DIALYSIS IN STABLE CONDITION VIA GURNEY, ACCOMPANIED BY EMT PERSONNEL. DIALYSIS SITE TO [facility], KEPT CLEAN AND DRY.
[2018-11-16 12:00] VITALS: BP 132/58
--- NOTE | 2018-11-16 13:07 | NUR ---
LYLE MARINO NOTES-- UNABLE TO CHECK BLOOD SUGAR AND ADMINISTER SCHEDULED MEDICATIONS AT THIS TIME PATIENT IS CURRENTLY AT DIALYSIS CENTER.
--- NOTE | 2018-11-16 15:10 | NUR ---
RN NOTES-- PT CAME BACK FROM DIALYSIS VIA GURNEY IN STABLE CONDITION. VITAL SIGN WNL. RT AT BEDSIDE. NO NEW SKIN ISSUES NOTED. WILL CONTINUE TO MONITOR THROUGHOUT SHIFT FOR CONTINUITY OF CARE.
[2018-11-16 18:00] VITALS: BP 134/60
[2018-11-16 20:30] VITALS: BP 99/45
[2018-11-16] MEDS: INSULIN GLARGINE, 100 UNIT/ML CARTRIDGE SQ SCH (21:24)
[2018-11-17 00:29] VITALS: BP 125/60
[2018-11-17] MEDS: SUCRALFATE 1 G/10 ML UDC GT SCH ×4 (00:30→17:09)
[2018-11-17] MEDS: BLOOD SUGAR DIAGNOSTIC 1 EACH STRIP IN SCH ×4 (00:30→17:10)
[2018-11-17] MEDS: INSULIN REGULAR, HUMAN 100 UNIT/ML 3 ML VIAL SQ PRN ×4 (00:31→17:11)
[2018-11-17] MEDS: ALBUTEROL FS 2.5 MG/0.5 ML VIAL.NEB NEB SCH ×4 (01:17→19:30)
[2018-11-17] MEDS: IPRATROPIUM NEB FS 0.5 MG/2.5 ML AMPUL.NEB IH SCH ×4 (01:17→19:30)
[2018-11-17] MEDS: PROSOURCE / PROSTAT (PYXIS) 30 ML UDC GT SCH ×3 (04:30→22:20)
[2018-11-17] MEDS: OMEPRAZOLE 20 MG CAPSULE.DR GT SCH ×2 (06:08→17:09)
[2018-11-17 06:10] VITALS: BP 119/64
[2018-11-17 08:00] VITALS: BP 161/75
[2018-11-17] MEDS: ACIDOPHILUS/BULGARICUS 1 EACH TAB.CHEW GT SCH ×2 (08:19→22:20)
[2018-11-17] MEDS: POLYVINYL ALCOHOL 15 ML BOTTLE EACHEYE SCH ×2 (08:19→22:20)
[2018-11-17] MEDS: METOCLOPRAMIDE HCL 10 MG/10 ML UDC GT SCH ×2 (08:19→22:20)
[2018-11-17] MEDS: VIT B CMPLX 3/FA/VIT C/BIOTIN 1 TAB TABLET GT SCH (08:19)
[2018-11-17] MEDS: NEUTRA PHOS 1 POWD.PACKET GT SCH ×2 (08:19→17:09)
[2018-11-17] MEDS: ASCORBIC ACID 500 MG TABLET GT SCH (08:21)
[2018-11-17] MEDS: ACETAMINOPHEN 650 MG/20.3 ML UDC GT SCH ×2 (08:21→22:20)
[2018-11-17] MEDS: HYDROGEN PEROXIDE 480 ML BOTTLE TP SCH ×2 (09:29→23:00)
[2018-11-17] MEDS: NYSTATIN/TRIAMCIN 15 GM CREAM 15 GM TUBE TP SCH ×2 (09:30→23:00)
[2018-11-17] MEDS: Z GUARD REMEDY 4 OZ OINT TP SCH ×2 (09:30→23:00)
[2018-11-17] MEDS: HYDROGEL DRESSING 90 GM TUBE TP SCH ×2 (09:30→23:00)
[2018-11-17] MEDS: ZINC OXIDE 30 GM TUBE TP SCH ×2 (09:30→23:00)
[2018-11-17] MEDS: NYSTATIN TOP POWDER 15 GM BOTTLE TP SCH ×6 (09:30→23:00)
[2018-11-17] MEDS: BETADINE 5% CREAM TP SCH ×2 (09:30→23:00)
[2018-11-17 12:00] VITALS: BP 116/63
--- NOTE | 2018-11-17 14:57 | NUR ---
LUPILLO contacted and spoke with pt.'s father, John Woodall (lao speaking) to introduce herself as the new Subacute LUPILLO. John was receptive to speaking with LUPILLO and expressed contentment. LUPILLO invited John to attend the IDT meeting this Monday, November 19, 2018 from 12:30pm-1:30pm. John stated that he will not be able to attend or participate via speakerphone as he is at work during that time. LUPILLO was empathetic towards John's conflict of schedule and informed John that a copy of IDT plan of care will be available for him if interested. John stated that he may ask for a copy in the future and expressed gratitude for being informed about the option.
[2018-11-17] MEDS: NEPRO 1,000 ML BOTTLE GT PRN (16:53)
--- NOTE | 2018-11-17 17:11 | NUR ---
Obtain an order from THOMAS Leija to give Midodrine 10 mg. on Wednesdays during her extra dialysis day. Order carried out.
--- NOTE | 2018-11-17 17:29 | NUR ---
RT NOTES TRACH TUBE IN PLACE, PATENT, AND SECURED. ALARMS ON AND AUDIBLE. VENT PLUGGED IN TO RED OUTLET. BACK UP TRACH AND AMBU BAG BY THE BEDSIDE. NO SIGNS OF ANY DISTRESS. PT LEFT FACILITY FOR DIALYSIS. Addendum: 11/17/18 at 1731 by THIERRY MEZA RT Amended: Links added.
[2018-11-17 17:45] VITALS: BP 131/70
--- NOTE | 2018-11-17 20:17 | NUR ---
BREATHING TX NOT GIVEN , PT WENT TO DIALYSIS AT THIS TIME.
--- NOTE | 2018-11-17 22:00 | NUR ---
Resident came back from dialysis ,stable BP 144/72 HR 87.Noted with GT redness warm to touch with drainage noted.Cleans site with NS will continue to monitor.Afebrile.Lower abdominal edema noted.
[2018-11-17] MEDS: INSULIN GLARGINE, 100 UNIT/ML CARTRIDGE SQ SCH (22:55)
[2018-11-18] MEDS: BLOOD SUGAR DIAGNOSTIC 1 EACH STRIP IN SCH ×5 (00:04→23:40)
[2018-11-18] MEDS: SUCRALFATE 1 G/10 ML UDC GT SCH ×5 (00:04→23:40)
[2018-11-18] MEDS: INSULIN REGULAR, HUMAN 100 UNIT/ML 3 ML VIAL SQ PRN ×5 (00:06→23:43)
[2018-11-18 00:30] VITALS: BP 156/75
[2018-11-18] MEDS: IPRATROPIUM NEB FS 0.5 MG/2.5 ML AMPUL.NEB IH SCH ×4 (01:26→19:59)
[2018-11-18] MEDS: ALBUTEROL FS 2.5 MG/0.5 ML VIAL.NEB NEB SCH ×4 (01:26→19:59)
[2018-11-18] MEDS: PROSOURCE / PROSTAT (PYXIS) 30 ML UDC GT SCH ×3 (04:30→21:22)
[2018-11-18] MEDS: OMEPRAZOLE 20 MG CAPSULE.DR GT SCH ×2 (05:37→17:56)
[2018-11-18 06:36] VITALS: BP 148/80
[2018-11-18 07:53] VITALS: BP 110/73
[2018-11-18] MEDS: ASCORBIC ACID 500 MG TABLET GT SCH (09:38)
[2018-11-18] MEDS: MIDODRINE HCL (5MG) 5 MG TABLET GT SCH (09:38)
[2018-11-18] MEDS: ACIDOPHILUS/BULGARICUS 1 EACH TAB.CHEW GT SCH ×2 (09:38→21:22)
[2018-11-18] MEDS: VIT B CMPLX 3/FA/VIT C/BIOTIN 1 TAB TABLET GT SCH (09:38)
[2018-11-18] MEDS: METOCLOPRAMIDE HCL 10 MG/10 ML UDC GT SCH ×4 (09:38→23:40)
[2018-11-18] MEDS: NEUTRA PHOS 1 POWD.PACKET GT SCH ×2 (09:38→17:56)
[2018-11-18] MEDS: POLYVINYL ALCOHOL 15 ML BOTTLE EACHEYE SCH ×2 (09:38→21:22)
[2018-11-18] MEDS: ACETAMINOPHEN 650 MG/20.3 ML UDC GT SCH ×2 (09:38→21:23)
[2018-11-18] MEDS: NYSTATIN/TRIAMCIN 15 GM CREAM 15 GM TUBE TP SCH ×2 (10:10→21:23)
[2018-11-18] MEDS: BETADINE 5% CREAM TP SCH ×2 (10:10→21:23)
[2018-11-18] MEDS: HYDROGEL DRESSING 90 GM TUBE TP SCH ×2 (10:10→21:23)
[2018-11-18] MEDS: ZINC OXIDE 30 GM TUBE TP SCH ×2 (10:10→21:23)
[2018-11-18] MEDS: NYSTATIN TOP POWDER 15 GM BOTTLE TP SCH ×3 (10:10)
[2018-11-18] MEDS: Z GUARD REMEDY 4 OZ OINT TP SCH ×2 (10:10→21:23)
--- NOTE | 2018-11-18 10:35 | NUR ---
Notified Dr. Chacon, GI that patient's GT is red and with drainage coming out from the old GT site. assessed GT site with new order to start patient on ATB Vancomycin and Zosyn per pharmacy to dose. Dr. Chacon increased Reglan to Q 6hours and dietary evaluation to decrease GT feeding. Order carried out. Park Warden informed.
--- NOTE | 2018-11-18 11:30 | NUR ---
Resident left for dialysis in stable condition. R forearm AV shunt + for bruit and trill, Report given to ambulance staff.
[2018-11-18] MEDS ORDERED: PIPERACILLIN /TAZOBACTAM 2.25 G in IV D5W 50 ML IV SCH (15:00)
[2018-11-18] MEDS ORDERED: PIPERACILLIN /TAZOBACTAM 3.375 G in IV D5W 50 ML IV SCH (15:00)
--- NOTE | 2018-11-18 16:00 | NUR ---
Resident still at dialysis center. [facility] pharmacist said that, Zosyn is not covered by patient's insurance but gave dosing for Vancomycin. [facility] pharmacist informed.
[2018-11-18 16:55] VITALS: BP 116/79
[2018-11-18] MEDS: HYDROGEN PEROXIDE 480 ML BOTTLE TP SCH ×2 (16:57→21:23)
--- NOTE | 2018-11-18 17:20 | NUR ---
Notified Dr. Wall that resident's GT is red with some drainage coming out. Informed MD that Dr. Chacon ordered IV ATB already and has not started it yet as patient just return back few minutes ago. MD gave an order to insert midline incase unable to insert a peripheral IV access.
[2018-11-18 18:00] VITALS: BP 130/55
[2018-11-18] MEDS: PIPERACILLIN /TAZOBACTAM 2.25 G in IV D5W 50 ML IV SCH (18:28)
--- NOTE | 2018-11-18 18:30 | NUR ---
Initial dose of Zosyn given. IV heplock inserted in the L upper arm Gauze 20 by ICU nurse with good blood return. No adverse reaction noted.
--- NOTE | 2018-11-18 19:00 | NUR ---
Seen and examined by PANDA Guerra given.
[2018-11-18] MEDS ORDERED: VANCOMYCIN 1 GM in IV D5W 250ml IV ONE (20:00)
--- NOTE | 2018-11-18 20:15 | NUR ---
Patient John notified with the new orders for antibiotic for GT cellulitis and also regarding feeding.Appreciative of the call.
[2018-11-18 20:37] VITALS: BP 142/70
[2018-11-18] MEDS: INSULIN GLARGINE, 100 UNIT/ML CARTRIDGE SQ SCH (21:25)
[2018-11-19 00:30] VITALS: BP 147/57
[2018-11-19] MEDS: IPRATROPIUM NEB FS 0.5 MG/2.5 ML AMPUL.NEB IH SCH ×4 (01:56→19:31)
[2018-11-19] MEDS: ALBUTEROL FS 2.5 MG/0.5 ML VIAL.NEB NEB SCH ×4 (01:56→19:31)
[2018-11-19] MEDS: PIPERACILLIN /TAZOBACTAM 2.25 G in IV D5W 50 ML IV SCH ×3 (02:17→17:43)
--- NOTE | 2018-11-19 03:37 | NUR ---
RT NOTE PT REC'D TRACHED ON [facility] VENT ON AC MODE. NO RESP DISTRESS NOTED OR SOB NOTED. TRACH IS PATENT AND SECURED. ALARMS ARE SET AUDIBLE. VENT PLUGGED INTO RED OUTLET. AMBU BAG BEDSIDE. WILL CONTINUE TO MONITOR. Addendum: 11/19/18 at 0337 by LOUISA CRUZ RT Amended: Links added.
[2018-11-19] MEDS: SUCRALFATE 1 G/10 ML UDC GT SCH ×4 (05:20→23:27)
[2018-11-19] MEDS: BLOOD SUGAR DIAGNOSTIC 1 EACH STRIP IN SCH ×4 (05:20→23:27)
[2018-11-19] MEDS: OMEPRAZOLE 20 MG CAPSULE.DR GT SCH ×2 (05:20→17:33)
[2018-11-19] MEDS: METOCLOPRAMIDE HCL 10 MG/10 ML UDC GT SCH ×4 (05:20→23:27)
[2018-11-19] MEDS: PROSOURCE / PROSTAT (PYXIS) 30 ML UDC GT SCH ×5 (05:20→21:04)
[2018-11-19] MEDS: INSULIN REGULAR, HUMAN 100 UNIT/ML 3 ML VIAL SQ PRN ×4 (05:21→23:29)
--- NOTE | 2018-11-19 06:32 | NUR ---
Patient GT old site with drainage/leakage noted milk like.Kept the area clean and dry.Will continue to monitor and will endorse.
[2018-11-19 06:43] VITALS: BP 154/79
[2018-11-19 07:51] VITALS: BP 119/41
[2018-11-19] MEDS: POLYVINYL ALCOHOL 15 ML BOTTLE EACHEYE SCH ×2 (09:13→21:04)
[2018-11-19] MEDS: NEUTRA PHOS 1 POWD.PACKET GT SCH ×2 (09:13→17:33)
[2018-11-19] MEDS: ASCORBIC ACID 500 MG TABLET GT SCH (09:13)
[2018-11-19] MEDS: VIT B CMPLX 3/FA/VIT C/BIOTIN 1 TAB TABLET GT SCH (09:13)
[2018-11-19] MEDS: ACIDOPHILUS/BULGARICUS 1 EACH TAB.CHEW GT SCH ×2 (09:13→21:04)
[2018-11-19] MEDS: ACETAMINOPHEN 650 MG/20.3 ML UDC GT SCH ×2 (09:13→21:04)
[2018-11-19] MEDS: HYDROGEN PEROXIDE 480 ML BOTTLE TP SCH ×2 (09:50→21:05)
[2018-11-19] MEDS: BETADINE 5% CREAM TP SCH ×2 (09:50→21:05)
[2018-11-19] MEDS: NYSTATIN/TRIAMCIN 15 GM CREAM 15 GM TUBE TP SCH ×2 (09:50→21:05)
[2018-11-19] MEDS: ZINC OXIDE 30 GM TUBE TP SCH ×2 (09:50→21:05)
[2018-11-19] MEDS: Z GUARD REMEDY 4 OZ OINT TP SCH ×2 (09:50→21:05)
[2018-11-19] MEDS: HYDROGEL DRESSING 90 GM TUBE TP SCH ×2 (09:50→21:05)
[2018-11-19 12:00] VITALS: BP 145/93
--- NOTE | 2018-11-19 15:04 | NUR ---
INTERDISCIPLINARY PLAN OF CARE CONFERENCE was held today. Resident's , John [phone] was unable to attend the meeting. Dr. Morejon and the interdisciplinary team discussed the current plan of care in detail. Current orders as well as treatments and medications were reviewed. Per charge nurseJuliano the patient is stable at this time, no significant change in condition. No new orders were given.
[2018-11-19] MEDS: NEPRO 1,000 ML BOTTLE GT PRN (15:55)
[2018-11-19] MEDS ORDERED: VANCOMYCIN POST DIALYSIS 500MG IV PRN ×2 (18:30)
[2018-11-19 18:57] VITALS: BP 148/70
[2018-11-19] MEDS: NYSTATIN CREAM 15 GM TUBE TP SCH (21:05)
[2018-11-19] MEDS: INSULIN GLARGINE, 100 UNIT/ML CARTRIDGE SQ SCH (21:08)
[2018-11-19 21:23] VITALS: BP 156/72
--- NOTE | 2018-11-19 22:12 | NUR ---
RT PATIENT WAS RECEIVED ON CONTINUOUS VENT SUPPORT ON NOTED SETTINGS. PATIENT STABLE AT THIS TIME . TRACH TUBE PATENT AND SECURED. WILL CONTINUE TO MONITOR. Addendum: 11/19/18 at 2212 by FERMÍN DAMON RT Amended: Links added.
[2018-11-20 00:20] VITALS: BP 149/69
[2018-11-20] MEDS: ALBUTEROL FS 2.5 MG/0.5 ML VIAL.NEB NEB SCH ×4 (01:21→20:14)
[2018-11-20] MEDS: IPRATROPIUM NEB FS 0.5 MG/2.5 ML AMPUL.NEB IH SCH ×4 (01:21→20:14)
[2018-11-20] MEDS: PIPERACILLIN /TAZOBACTAM 2.25 G in IV D5W 50 ML IV SCH ×3 (02:14→18:55)
[2018-11-20] MEDS: SUCRALFATE 1 G/10 ML UDC GT SCH ×3 (05:36→17:26)
[2018-11-20] MEDS: OMEPRAZOLE 20 MG CAPSULE.DR GT SCH ×2 (05:37→17:26)
[2018-11-20] MEDS: METOCLOPRAMIDE HCL 10 MG/10 ML UDC GT SCH ×3 (05:37→17:26)
[2018-11-20] MEDS: BLOOD SUGAR DIAGNOSTIC 1 EACH STRIP IN SCH ×3 (05:37→17:26)
[2018-11-20] MEDS: INSULIN REGULAR, HUMAN 100 UNIT/ML 3 ML VIAL SQ PRN ×2 (05:38→17:28)
[2018-11-20 06:31] VITALS: BP 140/47
[2018-11-20] MEDS: PROSOURCE / PROSTAT (PYXIS) 30 ML UDC GT SCH ×5 (06:50→20:22)
--- NOTE | 2018-11-20 06:52 | NUR ---
Patient GT old site leaking with yellowish output more than the previous day.Site still with redness,Nystatin cream was ordered last night to apply to site. Will continue to monitor and endorse to AM shift to notify GI applications development consultant.Pt stable,no distress noted.
[2018-11-20 07:34] VITALS: BP 110/66
[2018-11-20] MEDS: NEUTRA PHOS 1 POWD.PACKET GT SCH ×2 (09:09→16:19)
[2018-11-20] MEDS: ACIDOPHILUS/BULGARICUS 1 EACH TAB.CHEW GT SCH ×2 (09:09→20:20)
[2018-11-20] MEDS: VIT B CMPLX 3/FA/VIT C/BIOTIN 1 TAB TABLET GT SCH (09:09)
[2018-11-20] MEDS: POLYVINYL ALCOHOL 15 ML BOTTLE EACHEYE SCH ×2 (09:09→20:20)
[2018-11-20] MEDS: ASCORBIC ACID 500 MG TABLET GT SCH (09:10)
[2018-11-20] MEDS: MIDODRINE HCL (5MG) 5 MG TABLET GT SCH (09:10)
[2018-11-20] MEDS: ACETAMINOPHEN 650 MG/20.3 ML UDC GT SCH ×2 (09:10→20:24)
[2018-11-20] MEDS: HYDROGEL DRESSING 90 GM TUBE TP SCH ×2 (10:10→20:36)
[2018-11-20] MEDS: BETADINE 5% CREAM TP SCH ×2 (10:10→20:39)
[2018-11-20] MEDS: NYSTATIN/TRIAMCIN 15 GM CREAM 15 GM TUBE TP SCH ×2 (10:10→20:39)
[2018-11-20] MEDS: ZINC OXIDE 30 GM TUBE TP SCH ×2 (10:10→20:36)
[2018-11-20] MEDS: NYSTATIN CREAM 15 GM TUBE TP SCH ×4 (10:10→20:39)
[2018-11-20] MEDS: Z GUARD REMEDY 4 OZ OINT TP SCH ×2 (10:10→20:39)
--- NOTE | 2018-11-20 14:14 | NUR ---
Relayed random Vancomycin level 14 to IV pharmacist Marvel. She ordered to give Vancomycin 500 mg IV after dialysis on Tuesdays, , and Saturdays, random Vancomycin level on 11/27/18 before dialysis.
[2018-11-20] MEDS: HYDROGEN PEROXIDE 480 ML BOTTLE TP SCH ×2 (15:51→20:39)
--- NOTE | 2018-11-20 16:52 | NUR ---
Received written pharmacy recommendation from [facility] IV pharmacist Marvel to draw Vancomycin trough 30 minutes before dose on 11/27/18. Clarified with her if level should be drawn before or after dialysis and Vancomycin is given after dialysis. Marvel said once the pt comes back from dialysis, draw the level then wait 30 minutes to give the dose.
[2018-11-20 18:00] VITALS: BP 131/74
--- NOTE | 2018-11-20 18:00 | NUR ---
RT END OF THE SHIFT REPORT PT 48 Y OLD FEMALE REMAIN TRACH'D JOANNMANGO # [address] [facility]. VENT ON NOTED SETTINGS, NO RESP DISTRESS NOTED OR SOB T/O SHIFT. EQUAL CHEST RISE NOTED. B/S BILATERALLY RHONCHI SUX'S FOR MOD. AMT OF [place] SECRETIONS. TRACH IS PATENT AND SECURED. ALARMS ARE SET AND FUNCTIONAL. VENT PLUGGED INTO RED OUTLET. AMBU BAG BEDSIDE. TRACH CARE DONE, HME CHANGED REPORT WILL PASS TO PM SHIFT. Addendum: 11/20/18 at 1804 by LEIDA MARROQUIN RT Amended: Links added.
[2018-11-20 20:34] VITALS: BP 145/70
[2018-11-20] MEDS: INSULIN GLARGINE, 100 UNIT/ML CARTRIDGE SQ SCH (22:17)
[2018-11-21] MEDS: SUCRALFATE 1 G/10 ML UDC GT SCH ×4 (00:18→18:09)
[2018-11-21] MEDS: METOCLOPRAMIDE HCL 10 MG/10 ML UDC GT SCH ×4 (00:19→18:09)
[2018-11-21] MEDS: BLOOD SUGAR DIAGNOSTIC 1 EACH STRIP IN SCH ×4 (00:19→18:09)
[2018-11-21] MEDS: INSULIN REGULAR, HUMAN 100 UNIT/ML 3 ML VIAL SQ PRN ×4 (00:21→18:11)
[2018-11-21 01:20] VITALS: BP 147/77
[2018-11-21] MEDS: PIPERACILLIN /TAZOBACTAM 2.25 G in IV D5W 50 ML IV SCH ×3 (02:00→18:09)
[2018-11-21] MEDS: ALBUTEROL FS 2.5 MG/0.5 ML VIAL.NEB NEB SCH ×4 (02:30→19:51)
[2018-11-21] MEDS: IPRATROPIUM NEB FS 0.5 MG/2.5 ML AMPUL.NEB IH SCH ×4 (02:30→19:51)
--- NOTE | 2018-11-21 05:13 | NUR ---
PT REC'D TRACHED ON [facility] VENT ON AC MODE. NO RESP DISTRESS OR SOB NOTED. TRACH IS PATENT AND SECURED. SX'D FOR MOD AMT OF PALE YELLOW SECRETIONS. ALARMS ARE SET AND AUDIBLE. VENT PLUGGED INTO RED OUTLET. AMBU BAG BEDSIDE. Addendum: 11/21/18 at 0513 by LOUISA CRUZ RT Amended: Links added.
[2018-11-21] MEDS: OMEPRAZOLE 20 MG CAPSULE.DR GT SCH ×2 (05:56→18:09)
[2018-11-21 06:00] VITALS: BP 150/80
[2018-11-21] MEDS: PROSOURCE / PROSTAT (PYXIS) 30 ML UDC GT SCH ×5 (06:39→21:12)
[2018-11-21 07:24] VITALS: BP 158/71
[2018-11-21] MEDS: NYSTATIN/TRIAMCIN 15 GM CREAM 15 GM TUBE TP SCH ×2 (09:00→21:12)
[2018-11-21] MEDS: HYDROGEL DRESSING 90 GM TUBE TP SCH ×2 (09:00→21:12)
[2018-11-21] MEDS: Z GUARD REMEDY 4 OZ OINT TP SCH ×2 (09:00→21:12)
[2018-11-21] MEDS: ZINC OXIDE 30 GM TUBE TP SCH ×2 (09:00→21:12)
[2018-11-21] MEDS: BETADINE 5% CREAM TP SCH ×2 (09:00→21:12)
[2018-11-21] MEDS: NYSTATIN CREAM 15 GM TUBE TP SCH ×4 (09:00→21:12)
[2018-11-21] MEDS: ASCORBIC ACID 500 MG TABLET GT SCH (09:03)
[2018-11-21] MEDS: ACIDOPHILUS/BULGARICUS 1 EACH TAB.CHEW GT SCH ×2 (09:03→21:12)
[2018-11-21] MEDS: NEUTRA PHOS 1 POWD.PACKET GT SCH ×2 (09:03→16:52)
[2018-11-21] MEDS: ACETAMINOPHEN 650 MG/20.3 ML UDC GT SCH ×2 (09:03→21:12)
[2018-11-21] MEDS: POLYVINYL ALCOHOL 15 ML BOTTLE EACHEYE SCH ×2 (09:03→21:12)
[2018-11-21] MEDS: VIT B CMPLX 3/FA/VIT C/BIOTIN 1 TAB TABLET GT SCH (09:03)
[2018-11-21] MEDS: HYDROGEN PEROXIDE 480 ML BOTTLE TP SCH ×2 (09:50→21:08)
[2018-11-21] MEDS: NEPRO 1,000 ML BOTTLE GT PRN (18:12)
[2018-11-21 18:31] VITALS: BP 140/72
[2018-11-21 20:17] VITALS: BP 146/90
--- NOTE | 2018-11-21 20:56 | NUR ---
RT PATIENT WAS RECEIVED ON CONTINUOUS VENT SUPPORT ON NOTED VENT SETTINGS. PATIENT STABLE AT THIS TIME . TRACH TUBE PATENT AND SECURED. WILL CONTINUE TO MONITOR Addendum: 11/21/18 at 2056 by FERMÍN DAMON RT Amended: Links added.
[2018-11-21] MEDS: INSULIN GLARGINE, 100 UNIT/ML CARTRIDGE SQ SCH (21:13)
[2018-11-22 00:23] VITALS: BP 138/82
[2018-11-22] MEDS: BLOOD SUGAR DIAGNOSTIC 1 EACH STRIP IN SCH ×4 (00:24→18:08)
[2018-11-22] MEDS: SUCRALFATE 1 G/10 ML UDC GT SCH ×4 (00:24→18:08)
[2018-11-22] MEDS: METOCLOPRAMIDE HCL 10 MG/10 ML UDC GT SCH ×4 (00:24→18:08)
[2018-11-22] MEDS: INSULIN REGULAR, HUMAN 100 UNIT/ML 3 ML VIAL SQ PRN ×4 (00:29→18:12)
[2018-11-22] MEDS: ALBUTEROL FS 2.5 MG/0.5 ML VIAL.NEB NEB SCH ×4 (01:21→19:52)
[2018-11-22] MEDS: IPRATROPIUM NEB FS 0.5 MG/2.5 ML AMPUL.NEB IH SCH ×4 (01:21→19:52)
[2018-11-22] MEDS: OMEPRAZOLE 20 MG CAPSULE.DR GT SCH ×2 (05:53→18:08)
[2018-11-22 06:10] VITALS: BP 132/68
[2018-11-22] MEDS: PROSOURCE / PROSTAT (PYXIS) 30 ML UDC GT SCH ×5 (07:00→20:09)
[2018-11-22 07:57] VITALS: BP 153/80
[2018-11-22] MEDS: HYDROGEL DRESSING 90 GM TUBE TP SCH ×2 (09:00→20:09)
[2018-11-22] MEDS: Z GUARD REMEDY 4 OZ OINT TP SCH ×2 (09:00→20:10)
[2018-11-22] MEDS: NYSTATIN CREAM 15 GM TUBE TP SCH ×4 (09:00→20:10)
[2018-11-22] MEDS: BETADINE 5% CREAM TP SCH ×2 (09:00→20:10)
[2018-11-22] MEDS: ZINC OXIDE 30 GM TUBE TP SCH ×2 (09:00→20:10)
[2018-11-22] MEDS: NYSTATIN/TRIAMCIN 15 GM CREAM 15 GM TUBE TP SCH ×2 (09:00→20:10)
[2018-11-22] MEDS: NEUTRA PHOS 1 POWD.PACKET GT SCH ×2 (09:21→17:00)
[2018-11-22] MEDS: VIT B CMPLX 3/FA/VIT C/BIOTIN 1 TAB TABLET GT SCH (09:21)
[2018-11-22] MEDS: ACIDOPHILUS/BULGARICUS 1 EACH TAB.CHEW GT SCH ×2 (09:21→20:09)
[2018-11-22] MEDS: POLYVINYL ALCOHOL 15 ML BOTTLE EACHEYE SCH ×2 (09:21→20:09)
[2018-11-22] MEDS: ACETAMINOPHEN 650 MG/20.3 ML UDC GT SCH ×2 (09:21→20:09)
[2018-11-22] MEDS: ASCORBIC ACID 500 MG TABLET GT SCH (09:21)
[2018-11-22] MEDS: HYDROGEN PEROXIDE 480 ML BOTTLE TP SCH ×2 (09:25→20:09)
[2018-11-22] MEDS: PIPERACILLIN /TAZOBACTAM 2.25 G in IV D5W 50 ML IV SCH ×2 (10:10→18:00)
--- NOTE | 2018-11-22 10:45 | NUR ---
Pt noted with right forearm closed blister. Received order to apply betadine paint q shift for 14 days. Notified
[2018-11-22 12:08] VITALS: BP 142/72
--- NOTE | 2018-11-22 15:39 | NUR ---
Per charge nurse, the patient is receiving antibiotic therapy for redness in g-tube area.
--- NOTE | 2018-11-22 15:50 | NUR ---
THOMAS Ramsay ordered to give Vancomycin and Zosyn for a total of 10 days for GT site cellulitis.
[2018-11-22] MEDS ORDERED: VANCOMYCIN POST DIALYSIS 500MG IV PRN ×2 (16:19)
--- NOTE | 2018-11-22 17:01 | NUR ---
RT NOTES TRACH TUBE IN PLACE, PATENT, AND SECURED WITH TRACH TIE. ALARMS ON AND AUDIBLE. VENT PLUGGED IN TO RED OUTLET. AMBU BAG AND BACK UP TRACH BY THE BEDSIDE. NO SIGNS OF ANY DISTRESS. Addendum: 11/22/18 at 1702 by THIERRY MEZA RT Amended: Links added.
--- NOTE | 2018-11-22 18:41 | NUR ---
Seen by THOMAS Ramsay. She ordered to DC Vancomycin and Zosyn. She said pt does not need it. She said to place a colostomy bag over the old GT site that is leaking to prevent skin irritation.
[2018-11-22 19:45] VITALS: BP 147/76
[2018-11-22] MEDS: POVIDONE-IODINE OINT 28.4 GM TUBE TP SCH (20:09)
[2018-11-22] MEDS: INSULIN GLARGINE, 100 UNIT/ML CARTRIDGE SQ SCH (21:19)
[2018-11-23] MEDS: SUCRALFATE 1 G/10 ML UDC GT SCH ×5 (00:13→23:52)
[2018-11-23] MEDS: BLOOD SUGAR DIAGNOSTIC 1 EACH STRIP IN SCH ×5 (00:13→23:52)
[2018-11-23] MEDS: METOCLOPRAMIDE HCL 10 MG/10 ML UDC GT SCH ×5 (00:13→23:52)
[2018-11-23] MEDS: INSULIN REGULAR, HUMAN 100 UNIT/ML 3 ML VIAL SQ PRN ×3 (00:14→18:22)
[2018-11-23 00:27] VITALS: BP 147/76
[2018-11-23] MEDS: IPRATROPIUM NEB FS 0.5 MG/2.5 ML AMPUL.NEB IH SCH ×4 (01:28→19:53)
[2018-11-23] MEDS: ALBUTEROL FS 2.5 MG/0.5 ML VIAL.NEB NEB SCH ×4 (01:28→19:53)
--- NOTE | 2018-11-23 03:13 | NUR ---
PT REMAIN TRACHED ON [facility] VENT ON CHARTED SETTINGS, NO RESP DISTRESS NOTED T/O SHIFT. ALARMS ARE SET AND AUDIBLE.VENT PLUGGED INTO RED OUTLET. AMBU BAG AND SPARE TRACH BEDSIDE. Addendum: 11/23/18 at 0440 by KY GREEN RT Amended: Links added.
[2018-11-23] MEDS: OMEPRAZOLE 20 MG CAPSULE.DR GT SCH ×2 (05:29→18:21)
[2018-11-23 06:05] VITALS: BP 140/75
[2018-11-23] MEDS: PROSOURCE / PROSTAT (PYXIS) 30 ML UDC GT SCH ×5 (06:22→21:03)
[2018-11-23 08:00] VITALS: BP 161/73
[2018-11-23] MEDS: ZINC OXIDE 30 GM TUBE TP SCH ×2 (09:00→21:04)
[2018-11-23] MEDS: BETADINE 5% CREAM TP SCH ×2 (09:00→21:04)
[2018-11-23] MEDS: NYSTATIN CREAM 15 GM TUBE TP SCH ×4 (09:00→21:04)
[2018-11-23] MEDS: NYSTATIN/TRIAMCIN 15 GM CREAM 15 GM TUBE TP SCH ×2 (09:00→21:04)
[2018-11-23] MEDS: MIDODRINE HCL (5MG) 5 MG TABLET GT SCH (09:00)
[2018-11-23] MEDS: HYDROGEL DRESSING 90 GM TUBE TP SCH ×2 (09:00→21:04)
[2018-11-23] MEDS: Z GUARD REMEDY 4 OZ OINT TP SCH ×2 (09:00→21:04)
--- NOTE | 2018-11-23 09:00 | NUR ---
Seen and examined by Dr. Morejon, no new order given.
[2018-11-23] MEDS: POLYVINYL ALCOHOL 15 ML BOTTLE EACHEYE SCH ×2 (09:21→21:03)
[2018-11-23] MEDS: ACETAMINOPHEN 650 MG/20.3 ML UDC GT SCH ×2 (09:22→21:03)
[2018-11-23] MEDS: NEUTRA PHOS 1 POWD.PACKET GT SCH ×2 (09:22→17:00)
[2018-11-23] MEDS: ACIDOPHILUS/BULGARICUS 1 EACH TAB.CHEW GT SCH ×2 (09:22→21:03)
[2018-11-23] MEDS: VIT B CMPLX 3/FA/VIT C/BIOTIN 1 TAB TABLET GT SCH (09:22)
[2018-11-23] MEDS: ASCORBIC ACID 500 MG TABLET GT SCH (09:22)
[2018-11-23] MEDS: POVIDONE-IODINE OINT 28.4 GM TUBE TP SCH ×2 (09:23→21:04)
[2018-11-23] MEDS: HYDROGEN PEROXIDE 480 ML BOTTLE TP SCH ×2 (15:26→21:04)
[2018-11-23 16:14] VITALS: BP 161/73
[2018-11-23 18:22] VITALS: BP 122/70
[2018-11-23] MEDS: NEPRO 1,000 ML BOTTLE GT PRN (19:08)
[2018-11-23 20:46] VITALS: BP 101/63
[2018-11-23] MEDS: INSULIN GLARGINE, 100 UNIT/ML CARTRIDGE SQ SCH (21:05)
[2018-11-24 00:07] VITALS: BP 116/74
[2018-11-24] MEDS: IPRATROPIUM NEB FS 0.5 MG/2.5 ML AMPUL.NEB IH SCH ×4 (00:43→19:54)
[2018-11-24] MEDS: ALBUTEROL FS 2.5 MG/0.5 ML VIAL.NEB NEB SCH ×4 (00:43→19:54)
[2018-11-24] MEDS: SUCRALFATE 1 G/10 ML UDC GT SCH ×4 (06:01→23:02)
[2018-11-24] MEDS: PROSOURCE / PROSTAT (PYXIS) 30 ML UDC GT SCH ×5 (06:01→20:43)
[2018-11-24] MEDS: METOCLOPRAMIDE HCL 10 MG/10 ML UDC GT SCH ×4 (06:01→23:03)
[2018-11-24] MEDS: OMEPRAZOLE 20 MG CAPSULE.DR GT SCH ×2 (06:01→17:14)
[2018-11-24] MEDS: BLOOD SUGAR DIAGNOSTIC 1 EACH STRIP IN SCH ×4 (06:01→23:07)
[2018-11-24 06:06] VITALS: BP 103/68
[2018-11-24 07:50] VITALS: BP 130/50
[2018-11-24] MEDS: VIT B CMPLX 3/FA/VIT C/BIOTIN 1 TAB TABLET GT SCH (08:18)
[2018-11-24] MEDS: NEUTRA PHOS 1 POWD.PACKET GT SCH ×2 (08:18→17:00)
[2018-11-24] MEDS: POLYVINYL ALCOHOL 15 ML BOTTLE EACHEYE SCH ×2 (08:18→20:41)
[2018-11-24] MEDS: ACIDOPHILUS/BULGARICUS 1 EACH TAB.CHEW GT SCH ×2 (08:18→20:41)
[2018-11-24] MEDS: ASCORBIC ACID 500 MG TABLET GT SCH (08:20)
[2018-11-24] MEDS: ACETAMINOPHEN 650 MG/20.3 ML UDC GT SCH ×2 (08:20→20:45)
[2018-11-24] MEDS: NYSTATIN CREAM 15 GM TUBE TP SCH ×4 (09:20→20:46)
[2018-11-24] MEDS: ZINC OXIDE 30 GM TUBE TP SCH ×2 (09:20→20:46)
[2018-11-24] MEDS: Z GUARD REMEDY 4 OZ OINT TP SCH ×2 (09:20→20:46)
[2018-11-24] MEDS: BETADINE 5% CREAM TP SCH ×2 (09:20→20:46)
[2018-11-24] MEDS: NYSTATIN/TRIAMCIN 15 GM CREAM 15 GM TUBE TP SCH ×2 (09:20→20:45)
[2018-11-24] MEDS: POVIDONE-IODINE OINT 28.4 GM TUBE TP SCH ×2 (09:20→20:45)
[2018-11-24] MEDS: HYDROGEL DRESSING 90 GM TUBE TP SCH ×2 (09:20→20:45)
[2018-11-24 12:00] VITALS: BP 103/68
[2018-11-24] MEDS: INSULIN REGULAR, HUMAN 100 UNIT/ML 3 ML VIAL SQ PRN ×2 (12:29→23:10)
[2018-11-24] MEDS: MIDODRINE HCL (5MG) 5 MG TABLET GT SCH (15:55)
[2018-11-24 19:55] VITALS: BP 132/73
[2018-11-24 20:00] VITALS: BP 132/73
--- NOTE | 2018-11-24 20:22 | NUR ---
PT RCVD TRACH'D ON MECHANICAL VENT WITH CHARTED SETTINGS. PT CESARIO TX WELL. SX DONE. PT TRACH IS PATENT AND SECURE. VENT PLUGGED INTO RED OUTLET. ALARMS ARE ON AND AUDIBLE. AMBU BAG AT BED SIDE. NO SOB NOTED. Addendum: 11/24/18 at 2022 by BETTY VILLEGAS RT Amended: Links added.
[2018-11-24] MEDS: HYDROGEN PEROXIDE 480 ML BOTTLE TP SCH (20:37)
[2018-11-24] MEDS: INSULIN GLARGINE, 100 UNIT/ML CARTRIDGE SQ SCH (21:27)
[2018-11-25] VITALS: BP 114/57
[2018-11-25] MEDS: ALBUTEROL FS 2.5 MG/0.5 ML VIAL.NEB NEB SCH ×4 (00:49→20:02)
[2018-11-25] MEDS: IPRATROPIUM NEB FS 0.5 MG/2.5 ML AMPUL.NEB IH SCH ×4 (00:49→20:02)
[2018-11-25] MEDS: OMEPRAZOLE 20 MG CAPSULE.DR GT SCH ×2 (05:15→17:27)
[2018-11-25] MEDS: SUCRALFATE 1 G/10 ML UDC GT SCH ×4 (05:15→23:56)
[2018-11-25] MEDS: METOCLOPRAMIDE HCL 10 MG/10 ML UDC GT SCH ×4 (05:16→23:56)
[2018-11-25] MEDS: BLOOD SUGAR DIAGNOSTIC 1 EACH STRIP IN SCH ×4 (05:19→23:56)
[2018-11-25] MEDS: PROSOURCE / PROSTAT (PYXIS) 30 ML UDC GT SCH ×5 (05:19→21:29)
[2018-11-25] MEDS: INSULIN REGULAR, HUMAN 100 UNIT/ML 3 ML VIAL SQ PRN ×2 (05:20→23:56)
[2018-11-25 06:00] VITALS: BP 117/63
[2018-11-25 07:28] VITALS: BP 114/52
[2018-11-25] MEDS: HYDROGEN PEROXIDE 480 ML BOTTLE TP SCH ×2 (09:20→21:29)
[2018-11-25] MEDS: NEUTRA PHOS 1 POWD.PACKET GT SCH ×2 (09:28→16:53)
[2018-11-25] MEDS: ACETAMINOPHEN 650 MG/20.3 ML UDC GT SCH ×2 (09:28→21:29)
[2018-11-25] MEDS: VIT B CMPLX 3/FA/VIT C/BIOTIN 1 TAB TABLET GT SCH (09:28)
[2018-11-25] MEDS: ASCORBIC ACID 500 MG TABLET GT SCH (09:28)
[2018-11-25] MEDS: POLYVINYL ALCOHOL 15 ML BOTTLE EACHEYE SCH ×2 (09:28→21:29)
[2018-11-25] MEDS: POVIDONE-IODINE OINT 28.4 GM TUBE TP SCH ×2 (09:28→21:29)
[2018-11-25] MEDS: MIDODRINE HCL (5MG) 5 MG TABLET GT SCH (09:28)
[2018-11-25] MEDS: ACIDOPHILUS/BULGARICUS 1 EACH TAB.CHEW GT SCH ×2 (09:28→21:29)
[2018-11-25] MEDS: BETADINE 5% CREAM TP SCH ×2 (09:29→21:29)
[2018-11-25] MEDS: ZINC OXIDE 30 GM TUBE TP SCH ×2 (09:29→21:29)
[2018-11-25] MEDS: Z GUARD REMEDY 4 OZ OINT TP SCH ×2 (10:00→21:29)
[2018-11-25] MEDS: HYDROGEL DRESSING 90 GM TUBE TP SCH ×2 (10:00→21:29)
[2018-11-25] MEDS: NYSTATIN/TRIAMCIN 15 GM CREAM 15 GM TUBE TP SCH ×2 (10:00→21:29)
[2018-11-25] MEDS: NYSTATIN CREAM 15 GM TUBE TP SCH ×4 (10:00→21:29)
--- NOTE | 2018-11-25 14:09 | NUR ---
RT NOTE PT RECEIVED ON [facility] VENT ON THE FOLLOWING NOTED SETTINGS. NO RESP DISTRESS NOTED AT THIS TIME. PT SX'D. BREATHING TX GIVEN, NO ADVERSE REACTIONS NOTED. VENT IS PLUGGED INTO RED OUTLET AND ALARMS ARE ON AND AUDIBLE. TRACH TIE AND GAUZE HAVE BEEN CHANGED. AMBU BAG AND SPARE TRACH ARE AT BEDSIDE. WILL CONT TO MONITOR PT. Addendum: 11/25/18 at 1410 by SHANI PEÑA RT Amended: Links added.
[2018-11-25 15:00] VITALS: BP 136/68
[2018-11-25 18:53] VITALS: BP 130/63
[2018-11-25 19:36] VITALS: BP 120/69
[2018-11-25] MEDS: INSULIN GLARGINE, 100 UNIT/ML CARTRIDGE SQ SCH (21:30)
[2018-11-26] VITALS (7 sets, daily range): BP systolic 100–139; BP diastolic 52–100
[2018-11-26] MEDS: ALBUTEROL FS 2.5 MG/0.5 ML VIAL.NEB NEB SCH ×4 (01:54→19:42)
[2018-11-26] MEDS: IPRATROPIUM NEB FS 0.5 MG/2.5 ML AMPUL.NEB IH SCH ×4 (01:54→19:42)
[2018-11-26] MEDS: BLOOD SUGAR DIAGNOSTIC 1 EACH STRIP IN SCH ×4 (05:16→23:33)
[2018-11-26] MEDS: METOCLOPRAMIDE HCL 10 MG/10 ML UDC GT SCH ×3 (05:16→17:51)
[2018-11-26] MEDS: OMEPRAZOLE 20 MG CAPSULE.DR GT SCH ×2 (05:16→17:46)
[2018-11-26] MEDS: SUCRALFATE 1 G/10 ML UDC GT SCH ×3 (05:16→17:49)
[2018-11-26] MEDS: INSULIN REGULAR, HUMAN 100 UNIT/ML 3 ML VIAL SQ PRN ×3 (05:17→18:57)
[2018-11-26] MEDS: PROSOURCE / PROSTAT (PYXIS) 30 ML UDC GT SCH ×5 (07:49→20:20)
[2018-11-26] MEDS: Z GUARD REMEDY 4 OZ OINT TP SCH ×2 (09:00→21:56)
[2018-11-26] MEDS: NYSTATIN/TRIAMCIN 15 GM CREAM 15 GM TUBE TP SCH ×2 (09:00→21:54)
[2018-11-26] MEDS: HYDROGEN PEROXIDE 480 ML BOTTLE TP SCH ×2 (09:00→21:00)
[2018-11-26] MEDS: POVIDONE-IODINE OINT 28.4 GM TUBE TP SCH ×2 (09:00→21:56)
[2018-11-26] MEDS: BETADINE 5% CREAM TP SCH ×2 (09:00→21:56)
[2018-11-26] MEDS: POLYVINYL ALCOHOL 15 ML BOTTLE EACHEYE SCH ×2 (09:00→20:16)
[2018-11-26] MEDS: ZINC OXIDE 30 GM TUBE TP SCH ×2 (09:00→21:56)
[2018-11-26] MEDS: NYSTATIN CREAM 15 GM TUBE TP SCH ×4 (09:00→21:55)
[2018-11-26] MEDS: HYDROGEL DRESSING 90 GM TUBE TP SCH ×2 (09:00→21:54)
[2018-11-26] MEDS: ACIDOPHILUS/BULGARICUS 1 EACH TAB.CHEW GT SCH ×2 (09:21→20:18)
[2018-11-26] MEDS: ASCORBIC ACID 500 MG TABLET GT SCH (09:22)
[2018-11-26] MEDS: ACETAMINOPHEN 650 MG/20.3 ML UDC GT SCH ×2 (09:22→20:19)
[2018-11-26] MEDS: NEUTRA PHOS 1 POWD.PACKET GT SCH ×2 (09:25→17:49)
[2018-11-26] MEDS: VIT B CMPLX 3/FA/VIT C/BIOTIN 1 TAB TABLET GT SCH (09:25)
[2018-11-26] MEDS: INSULIN GLARGINE, 100 UNIT/ML CARTRIDGE SQ SCH (22:00)
[2018-11-27] VITALS (7 sets, daily range): BP systolic 97–144; BP diastolic 49–93
[2018-11-27] MEDS: SUCRALFATE 1 G/10 ML UDC GT SCH ×4 (00:27→17:43)
[2018-11-27] MEDS: METOCLOPRAMIDE HCL 10 MG/10 ML UDC GT SCH ×4 (00:28→17:43)
[2018-11-27] MEDS: INSULIN REGULAR, HUMAN 100 UNIT/ML 3 ML VIAL SQ PRN ×3 (00:33→17:41)
[2018-11-27] MEDS: ALBUTEROL FS 2.5 MG/0.5 ML VIAL.NEB NEB SCH ×4 (01:54→19:34)
[2018-11-27] MEDS: IPRATROPIUM NEB FS 0.5 MG/2.5 ML AMPUL.NEB IH SCH ×4 (01:54→19:34)
[2018-11-27] MEDS: OMEPRAZOLE 20 MG CAPSULE.DR GT SCH ×2 (05:47→17:43)
[2018-11-27] MEDS: PROSOURCE / PROSTAT (PYXIS) 30 ML UDC GT SCH ×5 (06:17→21:28)
[2018-11-27] MEDS: BLOOD SUGAR DIAGNOSTIC 1 EACH STRIP IN SCH ×3 (06:17→17:44)
[2018-11-27] MEDS: POLYVINYL ALCOHOL 15 ML BOTTLE EACHEYE SCH ×2 (08:25→21:28)
[2018-11-27] MEDS: ACIDOPHILUS/BULGARICUS 1 EACH TAB.CHEW GT SCH ×2 (08:25→21:28)
[2018-11-27] MEDS: VIT B CMPLX 3/FA/VIT C/BIOTIN 1 TAB TABLET GT SCH (08:25)
[2018-11-27] MEDS: NEUTRA PHOS 1 POWD.PACKET GT SCH ×2 (08:25→17:42)
[2018-11-27] MEDS: ASCORBIC ACID 500 MG TABLET GT SCH (08:26)
[2018-11-27] MEDS: ACETAMINOPHEN 650 MG/20.3 ML UDC GT SCH ×2 (08:26→21:28)
[2018-11-27] MEDS: HYDROGEN PEROXIDE 480 ML BOTTLE TP SCH ×2 (09:00→21:28)
[2018-11-27] MEDS: HYDROGEL DRESSING 90 GM TUBE TP SCH ×2 (09:26→21:28)
[2018-11-27] MEDS: POVIDONE-IODINE OINT 28.4 GM TUBE TP SCH ×2 (09:26→21:28)
[2018-11-27] MEDS: BETADINE 5% CREAM TP SCH (09:26)
[2018-11-27] MEDS: NYSTATIN/TRIAMCIN 15 GM CREAM 15 GM TUBE TP SCH ×2 (09:26→21:28)
[2018-11-27] MEDS: Z GUARD REMEDY 4 OZ OINT TP SCH ×2 (09:26→21:28)
[2018-11-27] MEDS: NYSTATIN CREAM 15 GM TUBE TP SCH ×4 (09:26→21:28)
[2018-11-27] MEDS: MIDODRINE HCL (5MG) 5 MG TABLET GT SCH (10:20)
--- NOTE | 2018-11-27 10:45 | NUR ---
Notified SHAMEKA Meng that patient's is GT draining large amount of formula coming out from the old GT site. The colostomy bag attached to collect the drainage is full. Dr. Batista said he wants to see the area and will see patient soon. Meanwhile kept the area clean, colostomy bag in place.
--- NOTE | 2018-11-27 17:10 | NUR ---
Resident returned back from dialysis, condition stable, AV fistula in the R FA + for bruit and trill, no bleeding with dressing intact. Dr. Batista made aware that patient is back from dialysis.
[2018-11-27] MEDS: NEPRO 1,000 ML BOTTLE GT PRN (19:27)
[2018-11-27] MEDS: INSULIN GLARGINE, 100 UNIT/ML CARTRIDGE SQ SCH (21:28)
[2018-11-28] VITALS: BP 111/59
[2018-11-28] MEDS: METOCLOPRAMIDE HCL 10 MG/10 ML UDC GT SCH ×4 (00:09→17:50)
[2018-11-28] MEDS: SUCRALFATE 1 G/10 ML UDC GT SCH ×4 (00:09→17:50)
[2018-11-28] MEDS: BLOOD SUGAR DIAGNOSTIC 1 EACH STRIP IN SCH ×4 (00:10→17:50)
[2018-11-28] MEDS: INSULIN REGULAR, HUMAN 100 UNIT/ML 3 ML VIAL SQ PRN ×4 (00:11→17:53)
[2018-11-28] MEDS: IPRATROPIUM NEB FS 0.5 MG/2.5 ML AMPUL.NEB IH SCH ×4 (01:43→20:11)
[2018-11-28] MEDS: ALBUTEROL FS 2.5 MG/0.5 ML VIAL.NEB NEB SCH ×4 (01:43→20:11)
[2018-11-28 06:00] VITALS: BP 116/70
[2018-11-28] MEDS: OMEPRAZOLE 20 MG CAPSULE.DR GT SCH ×2 (06:03→17:50)
[2018-11-28] MEDS: PROSOURCE / PROSTAT (PYXIS) 30 ML UDC GT SCH ×5 (07:00→21:53)
--- NOTE | 2018-11-28 07:10 | NUR ---
patient's old gtube remains with large amount of drainage. will continue endorse to up coming nurse to continue to monitor
[2018-11-28 07:56] VITALS: BP 126/66
[2018-11-28] MEDS: NEUTRA PHOS 1 POWD.PACKET GT SCH ×2 (09:00→17:50)
[2018-11-28] MEDS: VIT B CMPLX 3/FA/VIT C/BIOTIN 1 TAB TABLET GT SCH (09:00)
[2018-11-28] MEDS: ACETAMINOPHEN 650 MG/20.3 ML UDC GT SCH ×2 (09:00→21:53)
[2018-11-28] MEDS: ACIDOPHILUS/BULGARICUS 1 EACH TAB.CHEW GT SCH ×2 (09:00→21:53)
[2018-11-28] MEDS: Z GUARD REMEDY 4 OZ OINT TP SCH ×2 (09:00→21:53)
[2018-11-28] MEDS: ASCORBIC ACID 500 MG TABLET GT SCH (09:00)
[2018-11-28] MEDS: HYDROGEL DRESSING 90 GM TUBE TP SCH ×2 (09:00→21:53)
[2018-11-28] MEDS: POLYVINYL ALCOHOL 15 ML BOTTLE EACHEYE SCH ×2 (09:00→21:53)
[2018-11-28] MEDS: POVIDONE-IODINE OINT 28.4 GM TUBE TP SCH ×2 (09:00→21:53)
[2018-11-28] MEDS: NYSTATIN/TRIAMCIN 15 GM CREAM 15 GM TUBE TP SCH ×2 (09:00→21:53)
[2018-11-28] MEDS: NYSTATIN CREAM 15 GM TUBE TP SCH ×4 (09:00→21:53)
[2018-11-28] MEDS: HYDROGEN PEROXIDE 480 ML BOTTLE TP SCH ×3 (09:00→21:53)
[2018-11-28 15:53] VITALS: BP 131/69
--- NOTE | 2018-11-28 18:10 | NUR ---
Resident old GT site still draining milky gastric fluid. We've observed that whenever she coughs it drains a lot. Colostomy bag in place. Stable vital signs. Afebrile. No hypoglycemia noted. Pls. f/up with Dr. Batista when he will be coming to see the patient. Will continue to monitor.
[2018-11-28 19:05] VITALS: BP 136/62
[2018-11-28 19:51] VITALS: BP 117/71
--- NOTE | 2018-11-28 20:11 | NUR ---
PATIENT RECEIVED TRACHED ON MECHANICAL VENTILATION. AMBU BAG/BACK UP TRACH @ BEDSIDE. TX GIVEN, NO ADVERSE REACTIONS NOTED. SX DONE, TRACH SECURED AND PATENT. ALARMS ON AND AUDIBLE. PATIENT STABLE, WILL CONTINUE TO MONITOR.
[2018-11-28] MEDS: INSULIN GLARGINE, 100 UNIT/ML CARTRIDGE SQ SCH (21:55)
[2018-11-29] VITALS: BP 113/58
[2018-11-29] MEDS: METOCLOPRAMIDE HCL 10 MG/10 ML UDC GT SCH ×4 (00:29→18:39)
[2018-11-29] MEDS: SUCRALFATE 1 G/10 ML UDC GT SCH ×4 (00:29→18:39)
[2018-11-29] MEDS: BLOOD SUGAR DIAGNOSTIC 1 EACH STRIP IN SCH ×4 (00:30→18:39)
[2018-11-29] MEDS: INSULIN REGULAR, HUMAN 100 UNIT/ML 3 ML VIAL SQ PRN ×4 (00:31→18:40)
[2018-11-29] MEDS: IPRATROPIUM NEB FS 0.5 MG/2.5 ML AMPUL.NEB IH SCH ×4 (01:37→19:30)
[2018-11-29] MEDS: ALBUTEROL FS 2.5 MG/0.5 ML VIAL.NEB NEB SCH ×4 (01:37→19:30)
[2018-11-29 06:00] VITALS: BP 116/70
[2018-11-29] MEDS: OMEPRAZOLE 20 MG CAPSULE.DR GT SCH ×2 (06:03→18:39)
[2018-11-29] MEDS: PROSOURCE / PROSTAT (PYXIS) 30 ML UDC GT SCH ×5 (07:00→20:35)
[2018-11-29] MEDS: Z GUARD REMEDY 4 OZ OINT TP SCH ×2 (09:00→21:01)
[2018-11-29] MEDS: HYDROGEN PEROXIDE 480 ML BOTTLE TP SCH ×2 (09:00→21:01)
[2018-11-29] MEDS: HYDROGEL DRESSING 90 GM TUBE TP SCH ×2 (09:00→21:01)
[2018-11-29] MEDS: NYSTATIN/TRIAMCIN 15 GM CREAM 15 GM TUBE TP SCH ×2 (09:00→21:01)
[2018-11-29] MEDS: POVIDONE-IODINE OINT 28.4 GM TUBE TP SCH (09:00)
[2018-11-29] MEDS: NYSTATIN CREAM 15 GM TUBE TP SCH ×4 (09:00→21:01)
[2018-11-29] MEDS: ACIDOPHILUS/BULGARICUS 1 EACH TAB.CHEW GT SCH ×2 (09:11→20:35)
[2018-11-29] MEDS: ASCORBIC ACID 500 MG TABLET GT SCH (09:11)
[2018-11-29] MEDS: NEUTRA PHOS 1 POWD.PACKET GT SCH ×2 (09:11→17:00)
[2018-11-29] MEDS: VIT B CMPLX 3/FA/VIT C/BIOTIN 1 TAB TABLET GT SCH (09:11)
[2018-11-29] MEDS: ACETAMINOPHEN 650 MG/20.3 ML UDC GT SCH ×2 (09:11→21:03)
[2018-11-29] MEDS: POLYVINYL ALCOHOL 15 ML BOTTLE EACHEYE SCH ×2 (09:11→20:35)
[2018-11-29 11:58] VITALS: BP 100/58
--- NOTE | 2018-11-29 12:00 | NUR ---
Seen by Dr Batista. Old G-tube site is leaking. He said he needs to surgically close old GT site and will let Subacute know when the procedure can be done.
[2018-11-29 12:46] VITALS: BP 99/61
--- NOTE | 2018-11-29 16:14 | NUR ---
RT END OF THE SHIFT REPORT, PT. 48 Y OLD FEMALE REC. 0700 AM AWAKE BUT NOT RESPONSIVE. PT. IS TRACH'D SHILEY # 6 ON [facility] VENT. WITH NOTED AC MODE. NO RESP DISTRESS NOR SOB NOTED. EQUAL CHEST RISE NOTED, B/S RHONCHI BILATERALLY SX'D FOR MOD. AMT. WHITE SECRETIONS. TX'S GIVEN INLINE AND NO ADVERSE REACTION, TRACH CARE DONE. INNER CANULA CHANGED. ALARMS ARE SET AND FUNCTIONAL. VENT PLUGGED INTO RED OUTLET. HME CHANGED MONEY MARKET DEALER DONE. AMBU BAG REMAIN AT THE BEDSIDE. REPORT WILL PASS TO PM SHIFT. Addendum: 11/29/18 at 1616 by LEIDA MARROQUIN RT Amended: Links added.
[2018-11-29 19:07] VITALS: BP 106/59
[2018-11-29 19:41] VITALS: BP 127/67
[2018-11-29] MEDS: INSULIN GLARGINE, 100 UNIT/ML CARTRIDGE SQ SCH (21:44)
[2018-11-30] VITALS: BP 127/68
[2018-11-30] MEDS: SUCRALFATE 1 G/10 ML UDC GT SCH ×5 (00:09→23:27)
[2018-11-30] MEDS: BLOOD SUGAR DIAGNOSTIC 1 EACH STRIP IN SCH ×5 (00:09→23:27)
[2018-11-30] MEDS: METOCLOPRAMIDE HCL 10 MG/10 ML UDC GT SCH ×5 (00:10→23:27)
[2018-11-30] MEDS: INSULIN REGULAR, HUMAN 100 UNIT/ML 3 ML VIAL SQ PRN ×3 (00:13→23:28)
[2018-11-30] MEDS: IPRATROPIUM NEB FS 0.5 MG/2.5 ML AMPUL.NEB IH SCH ×4 (01:07→19:27)
[2018-11-30] MEDS: ALBUTEROL FS 2.5 MG/0.5 ML VIAL.NEB NEB SCH ×4 (01:07→19:27)
[2018-11-30] MEDS: OMEPRAZOLE 20 MG CAPSULE.DR GT SCH ×2 (05:38→18:00)
[2018-11-30 06:00] VITALS: BP 129/71
[2018-11-30] MEDS: PROSOURCE / PROSTAT (PYXIS) 30 ML UDC GT SCH ×5 (06:10→20:44)
[2018-11-30 07:47] VITALS: BP 83/56
[2018-11-30] MEDS: ACIDOPHILUS/BULGARICUS 1 EACH TAB.CHEW GT SCH ×2 (08:55→20:44)
[2018-11-30] MEDS: VIT B CMPLX 3/FA/VIT C/BIOTIN 1 TAB TABLET GT SCH (08:55)
[2018-11-30] MEDS: ASCORBIC ACID 500 MG TABLET GT SCH (08:55)
[2018-11-30] MEDS: POLYVINYL ALCOHOL 15 ML BOTTLE EACHEYE SCH ×2 (08:55→20:44)
[2018-11-30] MEDS: NEUTRA PHOS 1 POWD.PACKET GT SCH ×2 (08:55→17:00)
[2018-11-30] MEDS: ACETAMINOPHEN 650 MG/20.3 ML UDC GT SCH ×2 (08:55→20:44)
[2018-11-30] MEDS: MIDODRINE HCL (5MG) 5 MG TABLET GT SCH (09:00)
[2018-11-30] MEDS: NYSTATIN/TRIAMCIN 15 GM CREAM 15 GM TUBE TP SCH ×2 (09:00→21:29)
--- NOTE | 2018-11-30 09:20 | NUR ---
Notified Dr Batista that pt's old GT site is leaking out pt's feeding and medications. When pt's GT was flushed with water, the same water was seen coming out of the old GT stoma at the same time that it is being flushed in.
[2018-11-30] MEDS: HYDROGEN PEROXIDE 480 ML BOTTLE TP SCH ×2 (09:24→21:00)
[2018-11-30] MEDS: NYSTATIN CREAM 15 GM TUBE TP SCH ×4 (09:30→21:29)
[2018-11-30] MEDS: Z GUARD REMEDY 4 OZ OINT TP SCH ×2 (09:30→21:30)
[2018-11-30] MEDS: HYDROGEL DRESSING 90 GM TUBE TP SCH ×2 (09:30→21:29)
--- NOTE | 2018-11-30 10:30 | NUR ---
Seen by Dr Morejon. Informed him that pt's GT site is leaking and that whatever is being given via the GT is coming right out of the old stoma. Also informed him that GI has been notified.
--- NOTE | 2018-11-30 11:25 | NUR ---
Notified Dr Olivo that pt's feeding and medications are not being absorbed because the old GT site is leaking out the formula and medications as soon as they are administered. She reviewed pt's medications and ordered to decrease Lantus from 12 units to 5 units SC q HS. She also ordered to give D5NS at 30 mL/hr IV until further order. Addendum: 11/30/18 at 1644 by GEORGE CLEARY RN Nathaniel Garcia
--- NOTE | 2018-11-30 14:00 | NUR ---
Dr Batista will do debridement and closure of ostomy tube site tomorrow. Notified Dr Olivo. She ordered CBC BMP PT PTT before the procedure.
[2018-11-30] MEDS: IV D5/ 0.9% NACL 1,000 ML IV PRN (15:00)
--- NOTE | 2018-11-30 15:52 | NUR ---
LUPILLO contacted patient�s responsible libertarian, John Woodall [phone] to invite him to attend IDT meeting being held this Monday, December 03, 2018 at 12:30-1:30pm. Per John, he will not be able to attend IDT meeting as he is at work. LUPILLO offered John alternative to have Phone conference but John declined as that does not work with his work schedule either. LUPILLO informed John that he may speak to charge nurse if he wants to be updated on patient�s status. John expressed understanding. Addendum: 11/30/18 at 1554 by NEIL WESLEY John Woodall' new number is [phone]. The number stated previously is no longer in service.
[2018-11-30 18:00] VITALS: BP 133/66
[2018-11-30 20:31] VITALS: BP 94/67
[2018-11-30] MEDS: INSULIN GLARGINE, 100 UNIT/ML CARTRIDGE SQ SCH (21:41)
--- NOTE | 2018-12-01 | NUR ---
RN NOTES Placed pt NPO as ordered. Pt on IVF D5NS at 30ml/hr.
[2018-12-01 00:54] VITALS: BP 120/62
[2018-12-01] MEDS: IPRATROPIUM NEB FS 0.5 MG/2.5 ML AMPUL.NEB IH SCH ×4 (02:05→21:06)
[2018-12-01] MEDS: ALBUTEROL FS 2.5 MG/0.5 ML VIAL.NEB NEB SCH ×4 (02:05→21:06)
[2018-12-01] MEDS: SUCRALFATE 1 G/10 ML UDC GT SCH ×4 (05:26→23:26)
[2018-12-01] MEDS: METOCLOPRAMIDE HCL 10 MG/10 ML UDC GT SCH ×4 (05:27→23:26)
[2018-12-01] MEDS: OMEPRAZOLE 20 MG CAPSULE.DR GT SCH ×2 (05:27→18:00)
[2018-12-01] MEDS: BLOOD SUGAR DIAGNOSTIC 1 EACH STRIP IN SCH ×4 (06:13→23:26)
[2018-12-01] MEDS: INSULIN REGULAR, HUMAN 100 UNIT/ML 3 ML VIAL SQ PRN ×3 (06:14→23:28)
[2018-12-01 06:37] VITALS: BP 114/62
[2018-12-01 06:44] LABS: BASOPHILS % (AUTO) 0.6 % (0.0-2.0); EOSINOPHILS % (AUTO) 1.6 % (0.0-6.0); HEMATOCRIT 30 % (33-45); HEMOGLOBIN 9.1 g/dL (11.5-14.8); LYMPHOCYTES # (AUTO) 1.7 /CMM (0.8-4.8); LYMPHOCYTES % (AUTO) 20.6 % (20.0-44.0); MEAN CORPUSCULAR HGB CONC 31 g/dl (31.0-36.0); MEAN CORPUSCULAR VOLUME 80 fL (82-100); MONOCYTES # (AUTO) 0.9 /CMM (0.1-1.30); NEUTROPHILS # (AUTO) 5.6 /CMM (1.8-8.9); NEUTROPHILS % (AUTO) 66.2 % (43.0-81.0); PLATELET COUNT (AUTO) 197 /CMM (150-450); RED BLOOD CELL COUNT(AUTO) 3.71 MIL/uL (4.0-5.2); WHITE BLOOD COUNT (AUTO) 8.4 K/uL (4.3-11.0)
[2018-12-01 07:07] LABS: CALCIUM, SERUM 8.6 mg/dL (8.5-10.1); CREATININE 2.5 mg/dL (0.6-1.3); POTASSIUM 3.5 mmol/L (3.5-5.1)
[2018-12-01 07:26] VITALS: BP 114/55
--- NOTE | 2018-12-01 07:44 | NUR ---
Paged Dr. Enrique Castro, spoke with Kenn from answering service to inform MD that patient has a procedure scheduled today and will not accept a consent from resident's responsible green party John Woodall. According to OR staff Katie, John Woodall cannot legally give a consent, "he is no one" as he has not provided paper works indicating he can made a decision in her behalf. Therefore either a family member or two doctor can sign the consent. Left a message to John regarding the issue to ask a contact number from patient's family member. Awaiting for MD Castro to call back.
--- NOTE | 2018-12-01 08:23 | NUR ---
Received a call from Dr. Terrie Olivo, concrete bucket loader for Dr. Castro. Informed MD of the issue regarding the consent, she said she will be in much later this afternoon and suggested if possible to have Dr. Batista to be one of the signatory and Dr. Morejon the other MD. Dr. Morejon is already informed and will sign consent. Katie from OR informed and will call me back.
[2018-12-01 08:26] LABS: NEUTROPHILS % (MANUAL) 64 (42-76)
[2018-12-01 08:27] LABS: EOSINOPHILS % (MANUAL) 2 % (0-4); LYMPHOCYTES % (MANUAL) 25 % (16-48); MONOCYTES % (MANUAL) 9 % (0-11.0)
[2018-12-01] MEDS: ACETAMINOPHEN 650 MG/20.3 ML UDC GT SCH ×2 (09:00→20:45)
[2018-12-01] MEDS: Z GUARD REMEDY 4 OZ OINT TP SCH ×2 (09:00→22:00)
[2018-12-01] MEDS: NYSTATIN CREAM 15 GM TUBE TP SCH ×4 (09:00→22:00)
[2018-12-01] MEDS: HYDROGEL DRESSING 90 GM TUBE TP SCH ×2 (09:00→22:00)
[2018-12-01] MEDS: MIDODRINE HCL (5MG) 5 MG TABLET GT SCH (09:00)
[2018-12-01] MEDS: NEUTRA PHOS 1 POWD.PACKET GT SCH ×2 (09:00→17:00)
[2018-12-01] MEDS: ASCORBIC ACID 500 MG TABLET GT SCH (09:00)
[2018-12-01] MEDS: ACIDOPHILUS/BULGARICUS 1 EACH TAB.CHEW GT SCH ×2 (09:00→20:44)
[2018-12-01] MEDS: POLYVINYL ALCOHOL 15 ML BOTTLE EACHEYE SCH ×2 (09:00→20:44)
[2018-12-01] MEDS: NYSTATIN/TRIAMCIN 15 GM CREAM 15 GM TUBE TP SCH ×2 (09:00→22:00)
[2018-12-01] MEDS: VIT B CMPLX 3/FA/VIT C/BIOTIN 1 TAB TABLET GT SCH (09:00)
--- NOTE | 2018-12-01 09:00 | NUR ---
Dr. Morejon came to signed consent for surgery as the other MD signatory. Surgery informed that so far we have Dr. Morejon signed consent but will need another physician. According to Hasmick form OR she will inform Dr. Batista and find out from him if he can sign a special consent that declares that it is emergency. She will call back. Meanwhile, Valeriy WETZEL notified of another option to take.
--- NOTE | 2018-12-01 10:15 | NUR ---
Dr. Menezes and Dr. Batista discussed the issue in relation to patient's consent for surgery and documented in the notes that there is risk of major mortality and morbidity without this planned surgery. Informed Dr. Batista that OR will not accept the consent given by patient's boyfriend due to absence of legal documentation. Dr. Batista verbalized understanding.
[2018-12-01] MEDS ORDERED: FENTANYL PF 100MCG/2ML AMPUL ONE (10:29)
[2018-12-01] MEDS ORDERED: ROCURONIUM BROMIDE 50 MG/5 ML ONE (10:30)
[2018-12-01] MEDS ORDERED: FAMOTIDINE/PF INJ 20 MG/2 ML VIAL IV ONE (10:30)
[2018-12-01] MEDS ORDERED: MIDAZOLAM HCL 2 MG/2ML VIAL ONE (10:30)
[2018-12-01] MEDS: PROSOURCE / PROSTAT (PYXIS) 30 ML UDC GT SCH ×4 (11:00→20:44)
--- NOTE | 2018-12-01 11:10 | NUR ---
Resident left for surgery in stable condition, Report given to SHAAN Ford nurse. All paper works, labs, consents, H & P, progress notes, etc. given with staff. Resident transported via bed accompanied by OR staff and respiratory therapist.
[2018-12-01 12:00] VITALS: BP 134/60
--- NOTE | 2018-12-01 12:00 | NUR ---
Resident came back from surgery, asleep and arousable s/p closure of GT site. Vital signs stable. Dressing dry and intact on abdomen. No bleeding noted. With NGT intact on left nostril to be connected to intermittent suction. IV site intact and patent on left upper arm. With ongoing IV D5NS at 30 cc/hr. Will continue to monitor.
--- NOTE | 2018-12-01 13:00 | NUR ---
NGT connected to intermittent to intermittent suction draining dark green gastric fluid with tinged of blood.
--- NOTE | 2018-12-01 15:21 | NUR ---
Per Charge Nurse, Juliano smith request, SW contacted Patient�s boyfriend, John Woodall [phone] to request conservatorship paperwork. Per John he has conservatorship but is not sure what the paperwork looks like as he is Romanian speaking/reading only. Per John, he will drop-off paperwork (to be verified by nurses or SW as conservatorship paperwork) on Thursday, December 04, 2018 as he lives in [place] and it is very difficult for him to drop off paperwork during weekdays. SW emphasized the importance of having conservatorship paperwork as it is vital to providing safe and adequate care for the patient. John expressed understanding and was agreeable to plan.
--- NOTE | 2018-12-01 16:30 | NUR ---
Resident was picked up by EMT for dialysis at [facility]. Stable vital signs. NGT in place and clamped. Emergency equipment taken. RFA AV shunt intact, positive thrill and bruit. Dressing dry and intact. No bleeding noted.
--- NOTE | 2018-12-01 20:30 | NUR ---
Patient came back from HD ,vital signs stable,BP 110/60,HR 100,Temp 98.9 ,O2 sats 95%.NGT tube connected to intermittent suction,with greenish output.GT sit covered with dressing clean.Resume IV hydration of D5 Ns 30ml/hr until further order. Meds continue to hold as endorsed.Kept resident clean and comfortable.Will continue to monitor.
[2018-12-01 20:46] VITALS: BP 110/60
[2018-12-01] MEDS: HYDROGEN PEROXIDE 480 ML BOTTLE TP SCH (21:00)
[2018-12-01] MEDS: IV D5/ 0.9% NACL 1,000 ML IV PRN (21:56)
[2018-12-01] MEDS: INSULIN GLARGINE, 100 UNIT/ML CARTRIDGE SQ SCH (22:01)
[2018-12-01 22:43] VITALS: BP 110/60
[2018-12-02 00:36] VITALS: BP 106/58
[2018-12-02] MEDS: IPRATROPIUM NEB FS 0.5 MG/2.5 ML AMPUL.NEB IH SCH ×4 (02:19→19:39)
[2018-12-02] MEDS: ALBUTEROL FS 2.5 MG/0.5 ML VIAL.NEB NEB SCH ×4 (02:19→19:39)
[2018-12-02] MEDS: OMEPRAZOLE 20 MG CAPSULE.DR GT SCH ×2 (05:26→18:00)
[2018-12-02] MEDS: SUCRALFATE 1 G/10 ML UDC GT SCH ×4 (05:26→23:55)
[2018-12-02] MEDS: METOCLOPRAMIDE HCL 10 MG/10 ML UDC GT SCH ×4 (05:26→23:56)
[2018-12-02] MEDS: BLOOD SUGAR DIAGNOSTIC 1 EACH STRIP IN SCH ×4 (06:26→23:56)
[2018-12-02] MEDS: PROSOURCE / PROSTAT (PYXIS) 30 ML UDC GT SCH ×5 (06:27→20:55)
[2018-12-02] MEDS: INSULIN REGULAR, HUMAN 100 UNIT/ML 3 ML VIAL SQ PRN ×3 (06:27→23:56)
[2018-12-02 06:32] VITALS: BP 115/60
--- NOTE | 2018-12-02 06:57 | NUR ---
Patient remains stable.NGT output via intermittent suction yellowish to greenish approximately 100ml.Will continue to monitor.
[2018-12-02 07:28] VITALS: BP 143/75
[2018-12-02] MEDS: ASCORBIC ACID 500 MG TABLET GT SCH (09:00)
[2018-12-02] MEDS: ACETAMINOPHEN 650 MG/20.3 ML UDC GT SCH ×2 (09:00→20:56)
[2018-12-02] MEDS: MIDODRINE HCL (5MG) 5 MG TABLET GT SCH (09:00)
[2018-12-02] MEDS: NEUTRA PHOS 1 POWD.PACKET GT SCH (09:00)
[2018-12-02] MEDS: ACIDOPHILUS/BULGARICUS 1 EACH TAB.CHEW GT SCH ×2 (09:00→20:55)
[2018-12-02] MEDS: NYSTATIN CREAM 15 GM TUBE TP SCH ×3 (09:00→20:56)
[2018-12-02] MEDS: VIT B CMPLX 3/FA/VIT C/BIOTIN 1 TAB TABLET GT SCH (09:00)
[2018-12-02] MEDS: HYDROGEN PEROXIDE 480 ML BOTTLE TP SCH ×2 (09:45→20:56)
[2018-12-02] MEDS: POLYVINYL ALCOHOL 15 ML BOTTLE EACHEYE SCH ×2 (09:52→20:55)
--- NOTE | 2018-12-02 10:30 | NUR ---
Resident went out for dialysis per stas with EMT. Stable vitals signs. No s/s of resp distress. NGT clamped. Trach secured and midline. Dressing on abdomen (post op site) dry and intact. No bleeding noted. AV shunt on RFA intact. Dressing dry and clean. No bleeding noted. Emergency equipment taken.
--- NOTE | 2018-12-02 15:00 | NUR ---
Resident came back from dialysis. Awake, resp. even and unlabored. Trach secured and midline. RFA dialysis site intact, dressing dry and clean. Transferred to bed and made comfortable. NGT intact and patent connected to intermittent suction draining dark green with blood gastric fluid. Afebrile. Cont on IV hydration. Will continue to monitor.
[2018-12-02] MEDS: NYSTATIN/TRIAMCIN 15 GM CREAM 15 GM TUBE TP SCH ×2 (16:00→20:56)
[2018-12-02] MEDS: Z GUARD REMEDY 4 OZ OINT TP SCH ×2 (16:00→20:56)
[2018-12-02] MEDS: HYDROGEL DRESSING 90 GM TUBE TP SCH ×2 (16:00→20:56)
[2018-12-02 18:00] VITALS: BP 100/64
--- NOTE | 2018-12-02 18:00 | NUR ---
Dr Batista ordered wet to dry dressing on pt's old GT site.
--- NOTE | 2018-12-02 19:38 | NUR ---
Left message for RETAIL KEY HOLDER Debby Redman asking her when will pt have a new GT and if pt needs to have TPN for now.
[2018-12-02 19:45] VITALS: BP 102/64
--- NOTE | 2018-12-02 20:15 | NUR ---
Seen and examined by Hellen Leija [employer]ELS with new order of Morphine 1mg IV q 8 hours for severe pain x 7days. Hellen spoke to IV pharmacist to give authorization for Morphine dispensing.Will administer meds once available.
--- NOTE | 2018-12-02 20:35 | NUR ---
Received an order from COUNTER MANAGER Debby Redman to start TPN per pharmacy.Insert Central /PICC line.Nursing supervisor knitting notified of central line insertion ,she said will call PICC line nurse in AM.Spoke to Carlos/Landy regarding TPN orders.Will start tomorrow.John Dominguez notified of new orders and obtained consent for Central line insertion.
[2018-12-02] MEDS: INSULIN GLARGINE, 100 UNIT/ML CARTRIDGE SQ SCH (21:01)
[2018-12-03] VITALS: BP 98/56
[2018-12-03] MEDS: IPRATROPIUM NEB FS 0.5 MG/2.5 ML AMPUL.NEB IH SCH ×4 (00:56→20:03)
[2018-12-03] MEDS: ALBUTEROL FS 2.5 MG/0.5 ML VIAL.NEB NEB SCH ×4 (00:56→20:03)
[2018-12-03] MEDS ORDERED: MORPHINE SULFATE INJ 2 MG/ML DISP.SYRIN IV SCH (05:00)
--- NOTE | 2018-12-03 05:39 | NUR ---
Morphine Sulfate given 0.25ml (4mg/Ml) IV push for severe pain (GT SITE).BP 107/65 HR 106 Temp 99.2.Pt awake no distress.Will continue to monitor.
[2018-12-03 05:59] VITALS: BP 107/65
[2018-12-03] MEDS: SUCRALFATE 1 G/10 ML UDC GT SCH ×3 (06:00→17:30)
[2018-12-03] MEDS: METOCLOPRAMIDE HCL 10 MG/10 ML UDC GT SCH ×3 (06:00→17:30)
[2018-12-03] MEDS: OMEPRAZOLE 20 MG CAPSULE.DR GT SCH ×2 (06:00→17:30)
[2018-12-03] MEDS: BLOOD SUGAR DIAGNOSTIC 1 EACH STRIP IN SCH ×3 (06:07→17:30)
[2018-12-03] MEDS: INSULIN REGULAR, HUMAN 100 UNIT/ML 3 ML VIAL SQ PRN ×3 (06:10→17:32)
[2018-12-03 06:19] LABS: CALCIUM, SERUM 8.4 mg/dL (8.5-10.1); CREATININE 1.8 mg/dL (0.6-1.3); MAGNESIUM 1.8 mg/dL (1.8-2.4); POTASSIUM 3.7 mmol/L (3.5-5.1)
--- NOTE | 2018-12-03 06:26 | NUR ---
Gt output 400ml greenish in color. Addendum: 12/03/18 at 0644 by ROSE MARIE WEI RN NGT output
[2018-12-03] MEDS: PROSOURCE / PROSTAT (PYXIS) 30 ML UDC GT SCH ×5 (07:00→21:00)
[2018-12-03 07:33] VITALS: BP 93/59
[2018-12-03] MEDS: ACIDOPHILUS/BULGARICUS 1 EACH TAB.CHEW GT SCH ×3 (08:30→21:00)
[2018-12-03] MEDS: POLYVINYL ALCOHOL 15 ML BOTTLE EACHEYE SCH ×2 (08:30→21:12)
[2018-12-03] MEDS: HYDROGEL DRESSING 90 GM TUBE TP SCH ×2 (08:31→21:12)
[2018-12-03] MEDS: ACETAMINOPHEN 650 MG/20.3 ML UDC GT SCH ×3 (08:31→21:00)
[2018-12-03] MEDS: ASCORBIC ACID 500 MG TABLET GT SCH ×2 (08:31→08:58)
[2018-12-03] MEDS: HYDROGEN PEROXIDE 480 ML BOTTLE TP SCH ×2 (08:32→21:00)
[2018-12-03] MEDS: Z GUARD REMEDY 4 OZ OINT TP SCH ×2 (08:33→21:13)
[2018-12-03] MEDS ORDERED: FEE PK DOSING 1 MIN EA MC ONE (08:43)
[2018-12-03] MEDS ORDERED: FEE TPN 1 MIN EA MC ONE (08:44)
--- NOTE | 2018-12-03 08:47 | NUR ---
Followed-up with Dr. Batista if and when he will close the wound from the old GT site which is measuring 4x10x3, he said it will need regular wound care and suturing will not be done right away. He said he will come to see patient today. Resident's boyfriend John made aware of the open wound from the old GT site citing the size and wound appearance. He said he will see patient tomorrow. He was also made aware that PICC line or could be central line will be placed today depending where the nurse could find a vein. Followed-up with [facility] pharmacy if TPN is covered, spoke with Darrick and will call back once he run it in the system.
[2018-12-03] MEDS: VIT B CMPLX 3/FA/VIT C/BIOTIN 1 TAB TABLET GT SCH (08:57)
[2018-12-03] MEDS ORDERED: TPN/PPN PER PHARMACY IV PRN (09:00)
[2018-12-03] MEDS ORDERED: TPN BAG #1 IV PRN ×7 (09:00)
[2018-12-03] MEDS: NYSTATIN CREAM 15 GM TUBE TP SCH (09:10)
[2018-12-03] MEDS: NYSTATIN/TRIAMCIN 15 GM CREAM 15 GM TUBE TP SCH ×2 (09:10→21:13)
--- NOTE | 2018-12-03 09:45 | NUR ---
CENTRAL VENOUS CATHETER INSERTION PATIENT HAS ORDER TO INSERT CVC. INFORMED CONSENT IS SIGNED AND IN CHART. INSERTION SITE DETERMINED TO BE RIGHT femoral VEIN. patient was prepped using sterile technique with chlorhexidine. Patient was covered with a sterile drape and I donned a sterile gown. the insertion site was anesthetized with 1% lidocaine. Needle inserted under ultrasound guidance. Guidewire inserted through needle and needle removed. small gloria made at insertion site of approximately 2 mm. dilator inserted over guidewire then removed. catheter inserted fully over guidewire. guidewire removed. blood return at all 3 ports. valved caps placed on each port. catheter secured with 2 sutures. Biopatch placed and covered with Tegaderm. no s/s of complication. chest xray ordered. line positioned properly. catheter length 30 cm.
[2018-12-03] MEDS ORDERED: POTASSIUM PHOSPHATE MM 7.5 MMOL in IV D5W 100 ML IV ONE (10:00)
--- NOTE | 2018-12-03 11:02 | NUR ---
SW followed-up and contacted Patient�s boyfriend, John Woodall [phone] to remind him of request for conservatorship paperwork. Call went to voicemail and SW left a reminder to drop off paperwork to nursing station this weekend. SW emphasized the importance of having conservatorship paperwork as it is vital to providing safe and adequate care for the patient. SW also left contact information. SW to follow-up on Thursday.
[2018-12-03 12:00] VITALS: BP 102/68
[2018-12-03] MEDS: MORPHINE SULFATE INJ 4 MG/ML DISP.SYRIN IV SCH ×2 (13:34→21:00)
--- NOTE | 2018-12-03 14:30 | NUR ---
Dr. Batista saw wound photo from the old GT site. He said that he plan to put a new GT next Thursday in a different location. At this time will to continue with local treatment of wet to dry dressing and OK to cover with Mepilex border. Dr. Terrie Olivo also seen and examined resident, informed MD that Dr. Batista is planning to put a new GT on Thursday in a different location. She is also informed that patient was started on TPN and central line placed in the R femoral. Dr. Morejon and Dr. Terrie Olivo signed consent for planned procedure on Thursday as patient's responsible constitution party cannot legally give consent.
--- NOTE | 2018-12-03 14:55 | NUR ---
INTERDISCIPLINARY PLAN OF CARE CONFERENCE was held today. Resident's boyfriend, John [phone] was unable to attend the meeting. Dr. Morejon and the interdisciplinary team discussed the current plan of care in detail. Current orders as well as treatments and medications were reviewed. Resident s/P debridement and closure of ostomy tube on 12/01. Patient remain NPO ever since. GT removed and replaced with NGT connected to low intermittent suction. Dr. Batista rescheduled PEG placement on Thursday. Central line placed in the R femoral, on TPN for nutritional support. Potassium Phosphate 7.5 mmol given due to phosphorus level of 2.0. Patient also getting Morphine sulfate for pain management. NNO given at this time.
[2018-12-03 18:00] VITALS: BP 113/65
[2018-12-03] MEDS ORDERED: FAT EMULSION 20% 500 ML in PREMIX 1 EA IV SCH (18:00)
--- NOTE | 2018-12-03 18:00 | NUR ---
RN NOTES IV LIPID 20% WAS STARTED. PATIENT WAS ABLE TO TOLERATE IT WELL. NO ADVERSE REACTIONS AT THIS TIME. WILL CONTINUE TO MONITOR CLOSELY.
[2018-12-03 19:49] VITALS: BP 83/61
[2018-12-03] MEDS: INSULIN GLARGINE, 100 UNIT/ML CARTRIDGE SQ SCH (21:28)
--- NOTE | 2018-12-03 22:02 | NUR ---
RT NOTE PT RECEIVED TRACHED ON MECHANICAL VENTILATION. AMBU BAG/BACK UP TRACH @ BEDSIDE. TX GIVEN, NO ADVERSE REACTIONS NOTED. SX DONE, TRACH SECURED AND PATENT. ALARMS ON AND AUDIBLE. NO SOB NOTED. WILL MONITOR. Addendum: 12/03/18 at 2203 by CARI TRIANA RT Amended: Links added.
[2018-12-04] VITALS: BP 107/45
[2018-12-04] MEDS: BLOOD SUGAR DIAGNOSTIC 1 EACH STRIP IN SCH ×3 (00:02→11:54)
[2018-12-04] MEDS: INSULIN REGULAR, HUMAN 100 UNIT/ML 3 ML VIAL SQ PRN ×3 (00:04→11:55)
[2018-12-04] MEDS: ALBUTEROL FS 2.5 MG/0.5 ML VIAL.NEB NEB SCH ×3 (00:49→13:30)
[2018-12-04] MEDS: IPRATROPIUM NEB FS 0.5 MG/2.5 ML AMPUL.NEB IH SCH ×3 (00:49→13:30)
[2018-12-04] MEDS: MORPHINE SULFATE INJ 4 MG/ML DISP.SYRIN IV SCH (05:00)
[2018-12-04] MEDS: OMEPRAZOLE 20 MG CAPSULE.DR GT SCH (05:26)
[2018-12-04] MEDS: METOCLOPRAMIDE HCL 10 MG/10 ML UDC GT SCH ×3 (05:26→11:54)
[2018-12-04] MEDS: SUCRALFATE 1 G/10 ML UDC GT SCH ×3 (05:26→11:53)
[2018-12-04 06:00] VITALS: BP 137/82
[2018-12-04 06:47] LABS: CALCIUM, SERUM 8.1 mg/dL (8.5-10.1); CREATININE 2.5 mg/dL (0.6-1.3); MAGNESIUM 1.6 mg/dL (1.8-2.4); PHOSPHORUS 2.3 mg/dL (2.5-4.9); POTASSIUM 3.2 mmol/L (3.5-5.1)
[2018-12-04] MEDS: PROSOURCE / PROSTAT (PYXIS) 30 ML UDC GT SCH ×2 (07:00→11:00)
[2018-12-04 07:32] VITALS: BP 94/54
--- NOTE | 2018-12-04 08:45 | NUR ---
RT NOTE PT REC'D TRACHED ON MECHANICAL VENTILATION. AMBU BAG/BACK UP TRACH @ BEDSIDE. SX DONE, TRACH SECURED AND PATENT. ALARMS ON AND AUDIBLE. VENT PLUGGED IN RED OUTLET. NO SOB NOTED AT THIS TIME. WILL MONITOR. Addendum: 12/04/18 at 0845 by LONA PAGAN RT Amended: Links added.
[2018-12-04] MEDS: ACETAMINOPHEN 650 MG/20.3 ML UDC GT SCH (09:00)
[2018-12-04] MEDS: ACIDOPHILUS/BULGARICUS 1 EACH TAB.CHEW GT SCH (09:00)
[2018-12-04] MEDS: MIDODRINE HCL (5MG) 5 MG TABLET GT SCH (09:00)
[2018-12-04] MEDS: VIT B CMPLX 3/FA/VIT C/BIOTIN 1 TAB TABLET GT SCH (09:00)
[2018-12-04] MEDS: ASCORBIC ACID 500 MG TABLET GT SCH (09:00)
[2018-12-04] MEDS: HYDROGEN PEROXIDE 480 ML BOTTLE TP SCH (09:08)
[2018-12-04] MEDS: POLYVINYL ALCOHOL 15 ML BOTTLE EACHEYE SCH (09:16)
--- NOTE | 2018-12-04 10:30 | NUR ---
[facility] staff at bedside, they are routinely taking VS before putting patient in the gurney. B/P ranges from 86/47 to 93/47. Called [facility], spoke with NED Pearson Charge nurse to verify an acceptable B/P for them. According to CN, if patient's SBP is around 100's or 110's is better. Informed CN that attending MD will be notified of low B/P and said that it is OK if patient will come a little late.
--- NOTE | 2018-12-04 10:45 | NUR ---
Paged salesperson automobiles for Dr. Castro to notify of patient's B/P and dialysis refusal to take SBP below 100. Current B/P 94/47. Awaiting for MD to call back.
--- NOTE | 2018-12-04 11:00 | NUR ---
Dr. Terrie Olivo returned the call and made aware of low B/P and dialysis refusal to take the patient with SBP below 100. Dr. Terrie Olivo gave an order to give 500 ml NS IV bolus and Midodrine 10mg via NGT now and the importance of patient having dialysis today because of the PEG placement scheduled on Thursday.
[2018-12-04] MEDS ORDERED: IV NS 0.9% 500 ML IV ONE (12:00)
--- NOTE | 2018-12-04 12:15 | NUR ---
Resident left for dialysis in stable condition. B/P 116/60, HR 105 in no acute s/s of respiratory distress. R femoral line catheter with dressing intact,. no bleeding. TPN rate tapered down prior to stopping it for dialysis. Midodrine 10 mg via NGT given including 500 ml. NS bolus to help bring her B/P up. B/P obtain by [facility] staff with SBP ranging from low to high 110.
--- NOTE | 2018-12-04 12:35 | NUR ---
Received a call from [facility] dispatch saying that patient will be send back to the facility apparently due to hypotension, Patient's B/P was in the low 70's when she reached the center. Called [facility] to verify information. Spoke with Donald and said that patient's B/P is low and will not be able to do dialysis on her, therefore will send patient to [facility] ER.
[2018-12-04] MEDS ORDERED: TPN BAG #2 IV PRN ×8 (13:00)
--- NOTE | 2018-12-04 13:02 | NUR ---
Spoke with [facility] pharmacist said that she needs to adjust patient's TPN and need to give potassium due to low K+ level. Informed pharmacist that patient went to dialysis apparently her B/P was in the low 70's when she got there and they did not dialyzed the patient instead send her to ER. Advised to send the medication and TPN in ER.
--- NOTE | 2018-12-04 13:15 | NUR ---
Report given to NED Weaver from ER regarding patient's overall condition and reason for transfer due to hypotension. Patient was given 500ml NS bolus and Midodrine 10 mg via NGT before she left for dialysis, B/P went up to 116/60. Informed receiving nurse that Dr. Terrie Olivo would like her to be dialyzed today because of the scheduled PEG placement on Thursday. Resident is receiving TPN/lipids for nutrition and NGT is connected to intermittent suction. Patient with open wound from the old GT site measuring 4x10x3 and the plan is to have PEG placement on Thursday in a different location. Left a message to responsible republican regarding the transfer.
[2018-12-04] MEDS ORDERED: NUT.237L67 GT (14:01)
[2018-12-04] MEDS ORDERED: SUCR1TAB GT (14:01)
[2018-12-04] MEDS ORDERED: ONDA4TAB10 GT (14:01)
[2018-12-04] MEDS ORDERED: MORP2SYR IVP (14:01)
[2018-12-04] MEDS ORDERED: MIDO5TAB GT (14:01)
[2018-12-04] MEDS ORDERED: MAG30ORA GT (14:01)
[2018-12-04] MEDS ORDERED: OMEP20CA11 GT (14:01)
--- NOTE | 2018-12-04 14:30 | NUR ---
Resident's boyfriend John came to visit, informed him that patient is transferred to ER due to hypotension. He brought a piece of paper he said that he signed in the past which he does not know whether it is a paper that we are looking for. (DPOA or conservatorship documents). The piece of paper he brought is a page from Patient's right and Responsibilities that he signed. Explained to John that this is not what SW is looking for, however SW said that she will be able to help him obtain conservatorship paperwork and to follow-up with her on Thursday.
[2018-12-04] MEDS ORDERED: POTASSIUM CL. PREMIX PERIPHER. 50 ML IV SCH (15:00)
--- NOTE | 2018-12-04 16:44 | NUR ---
Resident transferred to BILL from ER, report given to receiving nurse Channel. Informed Channel that GI schedule patient for EGD and PEG placement on Thursday and two physician signed consent for the procedure. Resident's boyfriend John Woodall is also aware of the procedure however unable to legally give consent. Signed consent by 2 MD's given to BILL nurse.
[2018-12-05] MEDS ORDERED: MIDODRINE HCL (5MG) 5 MG TABLET GT SCH (09:00)
[2018-12-06] MEDS: ASCORBIC ACID 500 MG TABLET GT SCH (09:00)
[2018-12-06] MEDS: VIT B CMPLX 3/FA/VIT C/BIOTIN 1 TAB TABLET GT SCH (09:00)
--- NOTE | 2018-12-06 15:50 | NUR ---
Per nurse�s note on 12/04/18 John visited patient and brought paperwork that he thought might be the conservatorship paperwork, However, it was not. LUPILLO contacted to patient�s boyfriend John Woodall to follow-up with conservatorship information. The call went to voicemail and LUPILLO left a message with contact information for [employer] [[address] [place] [address]. [address] [place] [address] ;[phone]] to assist him with conservatorship process. John Woodall called LUPILLO back. John expressed understanding and was agreeable to contact [employer] today after he gets out from work at 5 pm. LUPILLO will follow-up with John.
[2018-12-07] MEDS: MIDODRINE HCL (5MG) 5 MG TABLET GT SCH (09:00)
--- NOTE | 2018-12-09 15:55 | NUR ---
Family invited to IDT SW called patient's boyfriend, John Woodall [phone] to invite him the IDT plan of care conference being held tomorrow December 10, 2018 in the activities room from 12:30pm-1:30pm. The call went to voiceKBLEil and LUPILLO left message with SW contact information. SW followed up and contacted John again. Call went to voiceKBLEil and SW left details of IDT time and location. LUPILLO also communicated that family may call nursing station for patient update as needed.
--- NOTE | 2018-12-10 15:18 | NUR ---
Patient scheduled to return to Sub-Acute tonight. [facility]LL[facility] contacted [facility] [[address] [facility], [facility] [address]; [phone]] to set up continuation of dialysis treatment for patient. Per [facility], the patient's dialysis treatment to be continued tomorrow at 10:45 am per usual. LUPILLO contacted [facility] [phone] and spoke to [facility] to set up ambulance transportation for resident from [facility] Subacute to Renal and back on , Sat per usual time. Per Erna Samson will continue transfer to renal starting tomorrow. LUPILLO communicated update to nursing station and subacute director.
[2018-12-10 17:23] VITALS: BP 121/74
--- NOTE | 2018-12-10 18:02 | NUR ---
RT NOTE: PT ADMITTED BACK TO SUBACUTE UNIT ON ORDERED AC VENT SETTINGS. NO RESPIRATORY DISTRESS OR COMPLICATIONS NOTED. TRACH CHECKED SECURE AND PATENT. SPARE TRACH SHILEY CUFFED SIZE 6 AND AMBU BAG PLACED @ BEDSIDE. VENT ALARMS CHECKED. VENT PLUGGED INTO RED OUTLET.
--- NOTE | 2018-12-10 18:15 | NUR ---
Resident readmitted from [facility] subacute with the following diagnosis history of chronic encephalopathy, chronic hypotension, diabetes, anemia, ESRD and VDRF, S/P excision and debridement of the infected old GT site with closure of gastrocutaneous fistula on 12/01/18 under the care of Dr. Castro. Spoke with Dr. Wall, bd special education teacher and verified admission order. Informed Dr. Wall that R femoral line was accidentally pulled out and therefore patient has no IV access for TPN use. Dr. Wall gave an order to re-insert a new central line and start D10 at 40cc/hr while awaiting for central line to be inserted. MD was made aware that patient was dialyzed today and removed 1 L per report from BILL nurse, asked MD if patient should still go to dialysis tomorrow. he said yes. Patient has positive culture from abdominal wound for yeast and ESBL, on IV Mycamin, Vancomycin, and Merrem, observed contact isolation for ESBL. Left a message to resident's responsible democrat John Woodall regarding re-admission. Body check done, IVF started, patient connected to the vent, tolerating current setting. V/S 98.5, 87,13,98 121/74. Nursing reverberatory furnace supervisor notified regarding central line insertion. Endorsed to incoming shift.
[2018-12-10] MEDS: IPRATROPIUM NEB FS 0.5 MG/2.5 ML AMPUL.NEB IH SCH (19:56)
[2018-12-10] MEDS: ALBUTEROL FS 2.5 MG/0.5 ML VIAL.NEB NEB SCH (19:56)
--- NOTE | 2018-12-10 20:30 | NUR ---
OBTAINED TELEPHONE CONSENT FOR PICC LINE PLACEMENT FROM NATALIE KESSLER.
[2018-12-10] MEDS: ACIDOPHILUS/BULGARICUS 1 EACH TAB.CHEW GT SCH (21:00)
[2018-12-10] MEDS: HYDROGEN PEROXIDE 480 ML BOTTLE TP SCH (21:00)
[2018-12-10] MEDS: HYDROGEL DRESSING 90 GM TUBE TP SCH (21:00)
[2018-12-10] MEDS: ACETAMINOPHEN 650 MG/20.3 ML UDC GT SCH (21:00)
[2018-12-10] MEDS: PROSOURCE / PROSTAT (PYXIS) 30 ML UDC GT SCH (21:00)
[2018-12-10] MEDS: POLYVINYL ALCOHOL 15 ML BOTTLE EACHEYE SCH (21:00)
[2018-12-10] MEDS: Z GUARD REMEDY 4 OZ OINT TP SCH (21:00)
[2018-12-10 21:20] VITALS: BP 105/58
--- NOTE | 2018-12-10 21:37 | NUR ---
CENTRAL VENOUS CATHETER INSERTION PATIENT HAS ORDER TO INSERT CVC. INFORMED CONSENT IS SIGNED AND IN CHART. INSERTION SITE DETERMINED TO BE RIGHT femoral VEIN. patient was prepped using sterile technique with chlorhexidine. Patient was covered with a sterile drape and I donned a sterile gown. the insertion site was anesthetized with 1% lidocaine. Needle inserted under ultrasound guidance. Guidewire inserted through needle and needle removed. small gloria made at insertion site of approximately 2 mm. dilator inserted over guidewire then removed. catheter inserted fully over guidewire. guidewire removed. blood return at all 3 ports. valved caps placed on each port. catheter secured with 2 sutures. Biopatch placed and covered with Tegaderm. no s/s of complication. line positioned properly. catheter length 30 cm. EBL 2 ML. INSERTED BY SEBAS SCHMITZ NP.
[2018-12-10] MEDS: INSULIN GLARGINE, 100 UNIT/ML CARTRIDGE SQ SCH (22:54)
[2018-12-10] MEDS: SUCRALFATE 1 G/10 ML UDC GT SCH (23:19)
[2018-12-10] MEDS: METOCLOPRAMIDE HCL 10 MG/10 ML UDC GT SCH (23:19)
[2018-12-11] VITALS (7 sets, daily range): BP systolic 99–148; BP diastolic 53–77
--- NOTE | 2018-12-11 00:10 | NUR ---
FAXED MEDICATION LISTS TO [facility] AND SPOKE WITH IV DEPARTMENT. IV ABX SUBJECT FOR INSURANCE VERIFICATION, MERREM NOT GIVEN, [facility]. Addendum: 12/11/18 at 0732 by BRIDGER SMITH RN [facility] AT ABOUT 2100
[2018-12-11] MEDS: BLOOD SUGAR DIAGNOSTIC 1 EACH STRIP IN SCH ×5 (00:14→23:43)
[2018-12-11] MEDS: INSULIN REGULAR, HUMAN 100 UNIT/ML 3 ML VIAL SQ PRN ×4 (00:16→23:45)
[2018-12-11] MEDS: ALBUTEROL FS 2.5 MG/0.5 ML VIAL.NEB NEB SCH ×3 (01:55→19:30)
[2018-12-11] MEDS: IPRATROPIUM NEB FS 0.5 MG/2.5 ML AMPUL.NEB IH SCH ×4 (01:55→19:30)
[2018-12-11] MEDS: METOCLOPRAMIDE HCL 10 MG/10 ML UDC GT SCH ×4 (06:00→23:43)
[2018-12-11] MEDS: OMEPRAZOLE 20 MG CAPSULE.DR GT SCH ×2 (06:00→18:00)
[2018-12-11] MEDS: SUCRALFATE 1 G/10 ML UDC GT SCH ×4 (06:00→23:43)
[2018-12-11] MEDS: PROSOURCE / PROSTAT (PYXIS) 30 ML UDC GT SCH ×5 (07:00→21:00)
--- NOTE | 2018-12-11 07:00 | NUR ---
MERREM NOT GIVEN AT 0600, PER [facility], THEY DO NOT VERIFY SUBACUTE MEDICATIONS, PATIENT'S MEDICATIONS ARE PROVIDED [facility]. ENDORSED TO INCOMING SHIFT FOR CONTINUITY OF CARE.
--- NOTE | 2018-12-11 08:00 | NUR ---
Spoke with [facility] pharmacist informing her that [facility] pharmacy has not return the call yet and not open till 0900 as to whether IV medications are covered or not. Will follow-up when pharmacy opens.
[2018-12-11] MEDS: ACIDOPHILUS/BULGARICUS 1 EACH TAB.CHEW GT SCH ×2 (08:39→21:00)
[2018-12-11] MEDS: ACETAMINOPHEN 650 MG/20.3 ML UDC GT SCH ×2 (08:39→21:00)
[2018-12-11] MEDS: POLYVINYL ALCOHOL 15 ML BOTTLE EACHEYE SCH ×2 (08:39→21:06)
[2018-12-11] MEDS: HYDROGEN PEROXIDE 480 ML BOTTLE TP SCH ×2 (09:00→21:00)
--- NOTE | 2018-12-11 09:18 | NUR ---
Spoke with Ibis from [facility] pharmacy to follow-up status of IV medication. He said that from what he can see from the compuiter, all three IV medications were processed and computer shows that it is not covered, however he is not 100% certain that insurance will not cover since it is a continuation of therapy from acute hospital. Kavon, IV pharmacist will be in this afternoon and will call back facility to recheck if these medications will be covered or not. [facility] pharmacist Manasa notified, per pharmacist to remind her after patient comes back from dialysis to start ATB.
--- NOTE | 2018-12-11 09:55 | NUR ---
Asked Dr. Chacon of the fdc plan regarding patient's abdominal wound. According to Dr. Chacon, he saw the patient yesterday in [facility] and patient needs to continue with TPN. The wound is inflamed with slough tissue developing along the edges of the wound base. Per Dr. Chacon it will take about at least a month before patient will have a PEG tube.
[2018-12-11] MEDS ORDERED: ACETAMINOPHEN 650 MG/SUPP.RECT RC PRN (10:00)
[2018-12-11 10:41] LABS: CALCIUM, SERUM 8.7 mg/dL (8.5-10.1); CREATININE 3.1 mg/dL (0.6-1.3); POTASSIUM 4.1 mmol/L (3.5-5.1)
[2018-12-11 10:44] LABS: MAGNESIUM 1.9 mg/dL (1.8-2.4); PHOSPHORUS 3.1 mg/dL (2.5-4.9)
[2018-12-11] MEDS ORDERED: FEE PK DOSING 1 MIN EA MC ONE (13:23)
[2018-12-11] MEDS ORDERED: VANCOMYCIN 500 MG in IV D5W 100 ML IV PRN (14:00)
[2018-12-11] MEDS ORDERED: VANCOMYCIN 1 GM in IV D5W 250 ML IV ONE (15:00)
[2018-12-11] MEDS ORDERED: TPN BAG #8 IV PRN ×8 (15:00)
[2018-12-11] MEDS ORDERED: MICAFUNGIN SODIUM 100 MG in IV NS 0.9% 100 ML IV SCH (15:00)
[2018-12-11] MEDS: Z GUARD REMEDY 4 OZ OINT TP SCH ×2 (16:00→21:55)
[2018-12-11] MEDS: HYDROGEL DRESSING 90 GM TUBE TP SCH ×2 (16:00→21:55)
[2018-12-11] MEDS: INSULIN GLARGINE, 100 UNIT/ML CARTRIDGE SQ SCH (17:00)
[2018-12-11] MEDS: MEROPENEM 500 MG in IV NS 0.9% 50 ML IV SCH (18:35)
[2018-12-11] MEDS: FAT EMULSION 20% 500 ML in PREMIX 1 EA IV SCH (18:35)
[2018-12-11] MEDS: MICAFUNGIN SODIUM 100 MG in IV NS 0.9% 100 ML IV SCH (20:00)
[2018-12-11] MEDS: DAKINS QUARTER STRENGTH (0.125%) 480 ML BOTTLE TOP SCH (21:55)
[2018-12-12] MEDS: ALBUTEROL FS 2.5 MG/0.5 ML VIAL.NEB NEB SCH ×2 (00:39→08:10)
[2018-12-12] MEDS: IPRATROPIUM NEB FS 0.5 MG/2.5 ML AMPUL.NEB IH SCH ×2 (00:39→08:10)
[2018-12-12 00:54] VITALS: BP 118/66
[2018-12-12] MEDS: MEROPENEM 500 MG in IV NS 0.9% 50 ML IV SCH ×2 (06:00→18:31)
[2018-12-12] MEDS: SUCRALFATE 1 G/10 ML UDC GT SCH (06:00)
[2018-12-12] MEDS: METOCLOPRAMIDE HCL 10 MG/10 ML UDC GT SCH (06:00)
[2018-12-12] MEDS: OMEPRAZOLE 20 MG CAPSULE.DR GT SCH (06:00)
[2018-12-12] MEDS: BLOOD SUGAR DIAGNOSTIC 1 EACH STRIP IN SCH ×2 (06:06→17:46)
[2018-12-12] MEDS: INSULIN REGULAR, HUMAN 100 UNIT/ML 3 ML VIAL SQ PRN (06:07)
[2018-12-12 06:15] VITALS: BP 104/57
[2018-12-12 07:52] VITALS: BP 117/64
[2018-12-12 07:57] LABS: CALCIUM, SERUM 8.5 mg/dL (8.5-10.1); CREATININE 2.5 mg/dL (0.6-1.3); PHOSPHORUS 2.4 mg/dL (2.5-4.9); POTASSIUM 3.5 mmol/L (3.5-5.1)
[2018-12-12] MEDS: HYDROGEL DRESSING 90 GM TUBE TP SCH (09:00)
[2018-12-12] MEDS: MIDODRINE HCL (5MG) 5 MG TABLET GT SCH (09:00)
[2018-12-12] MEDS: Z GUARD REMEDY 2 OZ OINT TP SCH (09:00)
[2018-12-12] MEDS: INSULIN GLARGINE, 100 UNIT/ML CARTRIDGE SQ SCH ×3 (09:00→21:03)
[2018-12-12] MEDS: DAKINS QUARTER STRENGTH (0.125%) 480 ML BOTTLE TOP SCH ×2 (09:00→21:05)
--- NOTE | 2018-12-12 11:00 | NUR ---
Requested Dr. Chacon to be paged, to inform MD of large amount of NGT gastric drainage from last night, 900 ml. in dark red color. Awaiting for MD to call back.
--- NOTE | 2018-12-12 11:10 | NUR ---
Dr. Chacon returned the call, notified of NGT's gastric content that is being suctioned, dark red in color in large amount. CBC was ordered and gave an order to give Protonix IV and if not covered or not available, may give Nexium. [facility].
[2018-12-12 11:27] LABS: BASOPHILS # (AUTO) 0.1 /CMM (0.0-0.2); BASOPHILS % (AUTO) 0.6 % (0.0-2.0); EOSINOPHILS % (AUTO) 3.4 % (0.0-6.0); HEMATOCRIT 30 % (33-45); HEMOGLOBIN 9.6 g/dL (11.5-14.8); LYMPHOCYTES % (AUTO) 22.2 % (20.0-44.0); MEAN CORPUSCULAR HGB CONC 32 g/dl (31.0-36.0); MEAN CORPUSCULAR VOLUME 80 fL (82-100); MONOCYTES # (AUTO) 0.7 /CMM (0.1-1.30); MONOCYTES % (AUTO) 8.2 % (2.0-12.0); NEUTROPHILS % (AUTO) 65.6 % (43.0-81.0); PLATELET COUNT (AUTO) 226 /CMM (150-450); RED BLOOD CELL COUNT(AUTO) 3.77 MIL/uL (4.0-5.2); WHITE BLOOD COUNT (AUTO) 9.1 K/uL (4.3-11.0)
--- NOTE | 2018-12-12 11:45 | NUR ---
Spoke with Moody from [facility] pharmacy and said that Protonix IV is not covered and they do not have Nexium IV. [facility] pharmacist notified.
[2018-12-12] MEDS ORDERED: DEXTROSE 50%-WATER 50 ML DISP.SYRIN IV PRN (12:30)
[2018-12-12] MEDS ORDERED: TPN BAG #9 IV PRN ×8 (14:00)
[2018-12-12 16:44] VITALS: BP 100/59
[2018-12-12 18:22] VITALS: BP 117/50
[2018-12-12] MEDS: MICAFUNGIN SODIUM 100 MG in IV NS 0.9% 100 ML IV SCH (20:00)
[2018-12-12 20:42] VITALS: BP 101/58
[2018-12-12] MEDS: POVIDONE-IODINE OINT 28.4 GM TUBE TP SCH ×2 (21:05)
[2018-12-12] MEDS: COD LIVER OIL/ZINC OXIDE 120 GM TUBE TP SCH (21:05)
[2018-12-12] MEDS: NEOMY SULF/BACITRAC ZN/POLY 15 GM TUBE TP SCH (21:06)
[2018-12-12] MEDS: NEXIUM 40 MG VIAL IV SCH (21:21)
[2018-12-13 00:50] VITALS: BP 103/53
[2018-12-13] MEDS: BLOOD SUGAR DIAGNOSTIC 1 EACH STRIP IN SCH ×4 (00:52→18:36)
[2018-12-13] MEDS: INSULIN REGULAR, HUMAN 100 UNIT/ML 3 ML VIAL SQ PRN ×4 (00:54→18:38)
[2018-12-13] MEDS: MEROPENEM 500 MG in IV NS 0.9% 50 ML IV SCH ×2 (05:49→18:00)
[2018-12-13 06:10] VITALS: BP 93/50
[2018-12-13 07:48] LABS: CALCIUM, SERUM 8.6 mg/dL (8.5-10.1); CREATININE 3.1 mg/dL (0.6-1.3); MAGNESIUM 2.1 mg/dL (1.8-2.4); PHOSPHORUS 3.5 mg/dL (2.5-4.9); POTASSIUM 3.9 mmol/L (3.5-5.1)
[2018-12-13 08:41] VITALS: BP 93/61
[2018-12-13] MEDS: INSULIN GLARGINE, 100 UNIT/ML CARTRIDGE SQ SCH ×2 (09:00→20:41)
[2018-12-13] MEDS: COD LIVER OIL/ZINC OXIDE 120 GM TUBE TP SCH ×2 (09:00→20:42)
[2018-12-13] MEDS: NEOMY SULF/BACITRAC ZN/POLY 15 GM TUBE TP SCH ×2 (09:00→20:42)
[2018-12-13] MEDS: HYDROGEL DRESSING 90 GM TUBE TP SCH (09:00)
[2018-12-13] MEDS: POVIDONE-IODINE OINT 28.4 GM TUBE TP SCH ×4 (09:00→20:42)
[2018-12-13] MEDS: Z GUARD REMEDY 2 OZ OINT TP SCH (09:00)
[2018-12-13] MEDS: DAKINS QUARTER STRENGTH (0.125%) 480 ML BOTTLE TOP SCH ×2 (09:00→20:42)
[2018-12-13] MEDS: MIDODRINE HCL (5MG) 5 MG TABLET GT SCH (09:00)
[2018-12-13] MEDS: NEXIUM 40 MG VIAL IV SCH (09:45)
--- NOTE | 2018-12-13 10:52 | NUR ---
Called [facility] to ask if pt still needs to have extra hemodialysis on Wednesdays. According to Francisca, pt is only on the schedule q Thursday, , Thursday but they will ask the doctor tomorrow if she needs extra hemodialysis.
[2018-12-13] MEDS ORDERED: TPN BAG #10 IV PRN ×8 (11:30)
--- NOTE | 2018-12-13 12:02 | NUR ---
Reminded staff and pt's boyfriend John Woodall to observe contact isolation precautions such as donning/doffing PPEs and proper handwashing.
[2018-12-13 16:43] VITALS: BP 110/58
[2018-12-13] MEDS: FAT EMULSION 20% 500 ML in PREMIX 1 EA IV SCH (18:00)
[2018-12-13 18:54] VITALS: BP 103/57
[2018-12-13 20:13] VITALS: BP 136/70
--- NOTE | 2018-12-13 20:30 | NUR ---
RN NOTES Seen and examined by Sobia with new order to D/C IV ATB vancomycin 500mg after HD, Merrem 500mg Q12hr, Mycamin 100mg Q24hr, noted and carried out.
[2018-12-14 00:54] VITALS: BP 133/78
[2018-12-14] MEDS: BLOOD SUGAR DIAGNOSTIC 1 EACH STRIP IN SCH ×4 (00:56→18:22)
[2018-12-14] MEDS: INSULIN REGULAR, HUMAN 100 UNIT/ML 3 ML VIAL SQ PRN ×3 (00:57→18:23)
[2018-12-14 06:16] VITALS: BP 98/53
[2018-12-14 07:43] LABS: CALCIUM, SERUM 8.4 mg/dL (8.5-10.1); CREATININE 3.7 mg/dL (0.6-1.3); MAGNESIUM 2.2 mg/dL (1.8-2.4); POTASSIUM 3.5 mmol/L (3.5-5.1)
[2018-12-14] MEDS: HYDROGEL DRESSING 90 GM TUBE TP SCH (09:00)
[2018-12-14] MEDS: NEOMY SULF/BACITRAC ZN/POLY 15 GM TUBE TP SCH ×2 (09:00→20:45)
[2018-12-14] MEDS: MIDODRINE HCL (5MG) 5 MG TABLET GT SCH (09:00)
[2018-12-14] MEDS: Z GUARD REMEDY 2 OZ OINT TP SCH (09:00)
[2018-12-14] MEDS: DAKINS QUARTER STRENGTH (0.125%) 480 ML BOTTLE TOP SCH ×2 (09:00→20:44)
[2018-12-14] MEDS: NEXIUM 40 MG VIAL IV SCH ×2 (09:00→21:00)
[2018-12-14] MEDS: POVIDONE-IODINE OINT 28.4 GM TUBE TP SCH ×4 (09:00→20:44)
[2018-12-14] MEDS: COD LIVER OIL/ZINC OXIDE 120 GM TUBE TP SCH ×2 (09:00→20:44)
[2018-12-14] MEDS: INSULIN GLARGINE, 100 UNIT/ML CARTRIDGE SQ SCH ×2 (09:15→20:44)
[2018-12-14 10:03] VITALS: BP 110/75
--- NOTE | 2018-12-14 11:44 | NUR ---
Invitation to Family Support Group: SW called patient�s responsible alliance party / boyfriend, John Woodall [phone] to invite them to attend the family support group being held tomorrow December 15, 2018 from 11 am-12pm in the old admin. conference room in the first floor. John stated that he was currently at work and would call me back at 12:45pm during his lunch break so we can discuss the family group and touch base on conservatorship update. SW to await phone call.
[2018-12-14] MEDS ORDERED: TPN BAG #11 IV PRN ×8 (14:00)
[2018-12-14 17:46] VITALS: BP 110/75
[2018-12-14 18:45] VITALS: BP 95/60
--- NOTE | 2018-12-14 18:50 | NUR ---
Pt's abdominal wound noted with serosanguinous drainage, no purulent discharge, no foul odor. Pt afebrile, T 98.0 F.
[2018-12-14 20:04] VITALS: BP 118/65
[2018-12-15] VITALS: BP 125/69
[2018-12-15] MEDS: BLOOD SUGAR DIAGNOSTIC 1 EACH STRIP IN SCH ×5 (00:54→23:44)
[2018-12-15] MEDS: INSULIN REGULAR, HUMAN 100 UNIT/ML 3 ML VIAL SQ PRN ×5 (00:55→23:46)
[2018-12-15 06:25] VITALS: BP 140/70
[2018-12-15 07:07] LABS: CALCIUM, SERUM 8.7 mg/dL (8.5-10.1); CREATININE 2.9 mg/dL (0.6-1.3); PHOSPHORUS 3.4 mg/dL (2.5-4.9); POTASSIUM 3.5 mmol/L (3.5-5.1)
[2018-12-15 07:59] VITALS: BP 132/75
[2018-12-15] MEDS: MIDODRINE HCL (5MG) 5 MG TABLET GT SCH (08:55)
[2018-12-15] MEDS: NEXIUM 40 MG VIAL IV SCH ×2 (08:57→20:52)
[2018-12-15] MEDS: NEOMY SULF/BACITRAC ZN/POLY 15 GM TUBE TP SCH ×2 (09:00→21:52)
[2018-12-15] MEDS: POVIDONE-IODINE OINT 28.4 GM TUBE TP SCH ×4 (09:00→21:51)
[2018-12-15] MEDS: HYDROGEL DRESSING 90 GM TUBE TP SCH (09:00)
[2018-12-15] MEDS: Z GUARD REMEDY 2 OZ OINT TP SCH (09:00)
[2018-12-15] MEDS: DAKINS QUARTER STRENGTH (0.125%) 480 ML BOTTLE TOP SCH ×2 (09:00→21:51)
[2018-12-15] MEDS: COD LIVER OIL/ZINC OXIDE 120 GM TUBE TP SCH ×2 (09:00→21:51)
[2018-12-15] MEDS: INSULIN GLARGINE, 100 UNIT/ML CARTRIDGE SQ SCH ×2 (09:07→21:51)
[2018-12-15] MEDS ORDERED: TPN BAG #12 IV PRN ×8 (11:30)
[2018-12-15 12:00] VITALS: BP 136/78
[2018-12-15] MEDS ORDERED: MIDODRINE HCL (5MG) 5 MG TABLET NG SCH (17:04)
[2018-12-15 18:00] VITALS: BP 142/69
[2018-12-15] MEDS: FAT EMULSION 20% 500 ML in PREMIX 1 EA IV SCH (18:30)
[2018-12-15 20:55] VITALS: BP 156/78
[2018-12-16 00:06] VITALS: BP 135/77
[2018-12-16] MEDS: BLOOD SUGAR DIAGNOSTIC 1 EACH STRIP IN SCH ×3 (06:05→18:23)
[2018-12-16] MEDS: INSULIN REGULAR, HUMAN 100 UNIT/ML 3 ML VIAL SQ PRN ×2 (06:07→18:24)
[2018-12-16 06:54] VITALS: BP 129/70
[2018-12-16 07:11] LABS: CALCIUM, SERUM 8.1 mg/dL (8.5-10.1); CREATININE 3.5 mg/dL (0.6-1.3); PHOSPHORUS 3.6 mg/dL (2.5-4.9); POTASSIUM 3.4 mmol/L (3.5-5.1)
[2018-12-16 07:36] VITALS: BP 110/47
[2018-12-16] MEDS: COD LIVER OIL/ZINC OXIDE 120 GM TUBE TP SCH ×2 (09:00→21:36)
[2018-12-16] MEDS: NEXIUM 40 MG VIAL IV SCH ×2 (09:00→21:00)
[2018-12-16] MEDS: HYDROGEL DRESSING 90 GM TUBE TP SCH (09:00)
[2018-12-16] MEDS: DAKINS QUARTER STRENGTH (0.125%) 480 ML BOTTLE TOP SCH ×2 (09:00→21:36)
[2018-12-16] MEDS: NEOMY SULF/BACITRAC ZN/POLY 15 GM TUBE TP SCH ×2 (09:00→21:36)
[2018-12-16] MEDS: Z GUARD REMEDY 2 OZ OINT TP SCH (09:00)
[2018-12-16] MEDS: POVIDONE-IODINE OINT 28.4 GM TUBE TP SCH ×4 (09:00→21:36)
[2018-12-16] MEDS: MIDODRINE HCL (5MG) 5 MG TABLET NG SCH (09:45)
[2018-12-16] MEDS: INSULIN GLARGINE, 100 UNIT/ML CARTRIDGE SQ SCH ×2 (09:50→21:35)
--- NOTE | 2018-12-16 11:23 | NUR ---
Spoke with Kimberly of [facility] to notify her of pt's K 3.4.
[2018-12-16] MEDS ORDERED: TPN BAG #13 IV PRN ×8 (11:30)
--- NOTE | 2018-12-16 15:25 | NUR ---
Dr Celestine Bettencourt ordered to apply Lotrimin cream and Triamcinolone 0.1% cream q shift and PRN soiling x 30 days for sacral wound failed flap reconstruction periwound MASD.
[2018-12-16 18:30] VITALS: BP 123/76
[2018-12-16 20:42] VITALS: BP 143/78
[2018-12-16] MEDS: CLOTRIMAZOLE 1% 15 GM TUBE TP SCH (21:36)
[2018-12-16] MEDS: TRIAMCINOLONE ACETONIDE 0.1% CR 15 GM TUBE TP SCH (21:36)
[2018-12-17] MEDS: BLOOD SUGAR DIAGNOSTIC 1 EACH STRIP IN SCH ×5 (00:29→23:53)
[2018-12-17] MEDS: INSULIN REGULAR, HUMAN 100 UNIT/ML 3 ML VIAL SQ PRN ×5 (00:31→23:55)
[2018-12-17 00:32] VITALS: BP 104/57
[2018-12-17 06:30] VITALS: BP 137/71
[2018-12-17 07:31] LABS: CALCIUM, SERUM 8.5 mg/dL (8.5-10.1); CREATININE 2.4 mg/dL (0.6-1.3); MAGNESIUM 1.9 mg/dL (1.8-2.4); PHOSPHORUS 2.8 mg/dL (2.5-4.9); POTASSIUM 3.1 mmol/L (3.5-5.1)
[2018-12-17 07:59] VITALS: BP 101/72
[2018-12-17] MEDS: CLOTRIMAZOLE 1% 15 GM TUBE TP SCH ×2 (09:00→21:28)
[2018-12-17] MEDS: INSULIN GLARGINE, 100 UNIT/ML CARTRIDGE SQ SCH ×2 (09:00→20:35)
[2018-12-17] MEDS: NEOMY SULF/BACITRAC ZN/POLY 15 GM TUBE TP SCH ×2 (09:00→21:29)
[2018-12-17] MEDS: COD LIVER OIL/ZINC OXIDE 120 GM TUBE TP SCH ×2 (09:00→21:28)
[2018-12-17] MEDS: NEXIUM 40 MG VIAL IV SCH ×2 (09:00→21:00)
[2018-12-17] MEDS: POVIDONE-IODINE OINT 28.4 GM TUBE TP SCH ×4 (09:00→21:28)
[2018-12-17] MEDS: TRIAMCINOLONE ACETONIDE 0.1% CR 15 GM TUBE TP SCH ×2 (09:00→21:28)
[2018-12-17] MEDS: HYDROGEL DRESSING 90 GM TUBE TP SCH (09:00)
[2018-12-17] MEDS: Z GUARD REMEDY 2 OZ OINT TP SCH (09:00)
[2018-12-17] MEDS: DAKINS QUARTER STRENGTH (0.125%) 480 ML BOTTLE TOP SCH ×2 (09:00→21:28)
[2018-12-17] MEDS: MIDODRINE HCL (5MG) 5 MG TABLET NG SCH (09:00)
[2018-12-17 12:00] VITALS: BP 144/64
[2018-12-17] MEDS ORDERED: TPN BAG #14 IV PRN ×8 (15:00)
--- NOTE | 2018-12-17 17:26 | NUR ---
RT NOTES TRACH TUBE IN PLACE, PATENT, AND SECURED WITH TRACH TIE. ALARMS ON AND AUDIBLE. VENT PLUGGED IN TO RED OUTLET. AMBU BAG AND BACK UP TRACH BY THE BEDSIDE. NO RESP DISTRESS AT THIS TIME. Addendum: 12/17/18 at 1727 by THIERRY MEZA RT Amended: Links added.
[2018-12-17] MEDS: FAT EMULSION 20% 500 ML in PREMIX 1 EA IV SCH (17:52)
[2018-12-17 18:00] VITALS: BP 121/74
[2018-12-17 20:34] VITALS: BP 148/80
[2018-12-18 00:42] VITALS: BP 109/54
[2018-12-18] MEDS: BLOOD SUGAR DIAGNOSTIC 1 EACH STRIP IN SCH ×4 (05:48→18:30)
[2018-12-18] MEDS: INSULIN REGULAR, HUMAN 100 UNIT/ML 3 ML VIAL SQ PRN ×2 (05:49→18:35)
[2018-12-18 06:21] VITALS: BP 117/78
[2018-12-18 06:47] LABS: CALCIUM, SERUM 7.7 mg/dL (8.5-10.1); MAGNESIUM 1.9 mg/dL (1.8-2.4); PHOSPHORUS 2.9 mg/dL (2.5-4.9); POTASSIUM 3.2 mmol/L (3.5-5.1)
[2018-12-18 07:33] VITALS: BP 129/86
[2018-12-18] MEDS: COD LIVER OIL/ZINC OXIDE 120 GM TUBE TP SCH ×2 (09:00→21:00)
[2018-12-18] MEDS: POVIDONE-IODINE OINT 28.4 GM TUBE TP SCH ×4 (09:00→21:00)
[2018-12-18] MEDS: Z GUARD REMEDY 2 OZ OINT TP SCH (09:00)
[2018-12-18] MEDS: NEXIUM 40 MG VIAL IV SCH ×2 (09:00→21:00)
[2018-12-18] MEDS: HYDROGEL DRESSING 90 GM TUBE TP SCH (09:00)
[2018-12-18] MEDS: NEOMY SULF/BACITRAC ZN/POLY 15 GM TUBE TP SCH ×2 (09:00→21:00)
[2018-12-18] MEDS: TRIAMCINOLONE ACETONIDE 0.1% CR 15 GM TUBE TP SCH ×2 (09:00→21:00)
[2018-12-18] MEDS: CLOTRIMAZOLE 1% 15 GM TUBE TP SCH ×2 (09:00→21:00)
[2018-12-18] MEDS: DAKINS QUARTER STRENGTH (0.125%) 480 ML BOTTLE TOP SCH ×2 (09:00→21:00)
[2018-12-18] MEDS ORDERED: TPN BAG #15 IV PRN ×8 (09:30)
[2018-12-18] MEDS: MIDODRINE HCL (5MG) 5 MG TABLET NG SCH (09:32)
[2018-12-18] MEDS: INSULIN GLARGINE, 100 UNIT/ML CARTRIDGE SQ SCH ×2 (09:50→21:00)
[2018-12-18 18:00] VITALS: BP 126/72
[2018-12-18 20:22] VITALS: BP 147/75
[2018-12-19] VITALS (7 sets, daily range): BP systolic 93–140; BP diastolic 65–86
[2018-12-19] MEDS: BLOOD SUGAR DIAGNOSTIC 1 EACH STRIP IN SCH ×5 (00:16→23:48)
[2018-12-19] MEDS: INSULIN REGULAR, HUMAN 100 UNIT/ML 3 ML VIAL SQ PRN ×6 (00:18→23:51)
--- NOTE | 2018-12-19 04:26 | NUR ---
PATIENT RECEIVED ON TRACH TO VENT WITH SETTINGS OF AC 12, 500 Vt, 40%, +0 TOLERATING WITH NO ADVERSE REACTIONS. SUCTIONED FOR MINIMAL, THIN, WHITE SECRETIONS. AMBU BAG AT BEDSIDE. VENT ALARM AUDIBLE AND VISIBLE. Addendum: 12/19/18 at 0428 by JAMARI PATEL RT Amended: Links added.
[2018-12-19 06:51] LABS: CREATININE 2.2 mg/dL (0.6-1.3); MAGNESIUM 2.1 mg/dL (1.8-2.4); PHOSPHORUS 1.9 mg/dL (2.5-4.9); POTASSIUM 3.3 mmol/L (3.5-5.1)
[2018-12-19] MEDS: HYDROGEL DRESSING 90 GM TUBE TP SCH (09:00)
[2018-12-19] MEDS: TRIAMCINOLONE ACETONIDE 0.1% CR 15 GM TUBE TP SCH ×2 (09:00→20:39)
[2018-12-19] MEDS: NEOMY SULF/BACITRAC ZN/POLY 15 GM TUBE TP SCH ×2 (09:00→20:40)
[2018-12-19] MEDS: DAKINS QUARTER STRENGTH (0.125%) 480 ML BOTTLE TOP SCH ×2 (09:00→20:39)
[2018-12-19] MEDS: NEXIUM 40 MG VIAL IV SCH ×2 (09:00→20:39)
[2018-12-19] MEDS: COD LIVER OIL/ZINC OXIDE 120 GM TUBE TP SCH ×2 (09:00→20:40)
[2018-12-19] MEDS: CLOTRIMAZOLE 1% 15 GM TUBE TP SCH ×2 (09:00→20:40)
[2018-12-19] MEDS: MIDODRINE HCL (5MG) 5 MG TABLET NG SCH (09:00)
[2018-12-19] MEDS: Z GUARD REMEDY 2 OZ OINT TP SCH (09:00)
[2018-12-19] MEDS: POVIDONE-IODINE OINT 28.4 GM TUBE TP SCH ×4 (09:00→20:40)
[2018-12-19] MEDS: INSULIN GLARGINE, 100 UNIT/ML CARTRIDGE SQ SCH ×2 (09:20→20:54)
--- NOTE | 2018-12-19 14:49 | NUR ---
RN NOTE ORDER FROM DR. MOCK POTASSIUM PHOSPHATE 15 MMOL ACKNOWLEDGED AND CARRIED OUT. FAXED TO PHARMACY.
[2018-12-19] MEDS ORDERED: POTASSIUM PHOSPHATE MM 15 MMOL in IV D5W 250 ML IV SCH (15:00)
--- NOTE | 2018-12-19 16:45 | NUR ---
SUB ACUTE NOTE GIVEN POTASSIUM PHOSPHATE IV WHEN MADE READILY AVAILABLE FROM PHARMACY.
[2018-12-19] MEDS ORDERED: TPN BAG #16 IV PRN ×8 (17:00)
[2018-12-19] MEDS: FAT EMULSION 20% 500 ML in PREMIX 1 EA IV SCH ×2 (17:28→21:10)
--- NOTE | 2018-12-19 17:40 | NUR ---
SUB ACUTE NOTE PER PHARMACY OKAY TO HOLD IV LIPID 20% UNTIL POTASSIUM PHOSPHATE IV IS FINISHED INFUSING THROUGH CENTRAL LINE, DUE TO CENTRAL LINE LUMEN AVAILABILITY PORTS NOT ACCESSIBLE TO RUN MULTIPLE IV MEDICATIONS AT THIS TIME.
--- NOTE | 2018-12-19 17:48 | NUR ---
SUB ACUTE NOTE WILL ENDORSE TO PARISH VISITOR TO CONTINUE AND ADMINISTER IV LIPID 20% ONCE POTASSIUM PHOSPHATE IV IS FINISHED INFUSING THROUGH CENTRAL LINE.
[2018-12-20] VITALS: BP 152/79
[2018-12-20 05:44] LABS: CALCIUM, SERUM 7.7 mg/dL (8.5-10.1); CREATININE 2.8 mg/dL (0.6-1.3); MAGNESIUM 1.8 mg/dL (1.8-2.4); PHOSPHORUS 2.9 mg/dL (2.5-4.9); POTASSIUM 3.5 mmol/L (3.5-5.1)
[2018-12-20] MEDS: BLOOD SUGAR DIAGNOSTIC 1 EACH STRIP IN SCH ×3 (06:06→18:06)
[2018-12-20] MEDS: INSULIN REGULAR, HUMAN 100 UNIT/ML 3 ML VIAL SQ PRN ×3 (06:25→18:14)
[2018-12-20 06:30] VITALS: BP 138/74
[2018-12-20 08:03] VITALS: BP 144/79
[2018-12-20] MEDS: MIDODRINE HCL (5MG) 5 MG TABLET NG SCH (09:00)
[2018-12-20] MEDS: NEXIUM 40 MG VIAL IV SCH ×2 (09:00→21:00)
[2018-12-20] MEDS: INSULIN GLARGINE, 100 UNIT/ML CARTRIDGE SQ SCH ×2 (09:40→20:50)
[2018-12-20 12:00] VITALS: BP 100/54
[2018-12-20] MEDS ORDERED: TPN BAG #17 IV PRN ×8 (15:00)
[2018-12-20] MEDS: HYDROGEL DRESSING 90 GM TUBE TP SCH (15:30)
[2018-12-20] MEDS: COD LIVER OIL/ZINC OXIDE 120 GM TUBE TP SCH ×2 (15:30→20:50)
[2018-12-20] MEDS: Z GUARD REMEDY 2 OZ OINT TP SCH (15:30)
[2018-12-20] MEDS: DAKINS QUARTER STRENGTH (0.125%) 480 ML BOTTLE TOP SCH ×2 (15:30→20:50)
[2018-12-20] MEDS: TRIAMCINOLONE ACETONIDE 0.1% CR 15 GM TUBE TP SCH ×2 (15:30→20:50)
[2018-12-20] MEDS: CLOTRIMAZOLE 1% 15 GM TUBE TP SCH ×2 (15:30→20:51)
[2018-12-20] MEDS: POVIDONE-IODINE OINT 28.4 GM TUBE TP SCH ×4 (15:30→20:50)
[2018-12-20] MEDS: NEOMY SULF/BACITRAC ZN/POLY 15 GM TUBE TP SCH ×2 (15:30→20:51)
[2018-12-20 18:30] VITALS: BP 102/48
[2018-12-20 20:28] VITALS: BP 92/50
[2018-12-21 00:33] VITALS: BP 108/59
[2018-12-21] MEDS: BLOOD SUGAR DIAGNOSTIC 1 EACH STRIP IN SCH ×4 (00:36→17:44)
[2018-12-21] MEDS: INSULIN REGULAR, HUMAN 100 UNIT/ML 3 ML VIAL SQ PRN ×3 (00:38→17:45)
[2018-12-21 06:17] VITALS: BP 89/71
[2018-12-21 07:46] LABS: CALCIUM, SERUM 7.7 mg/dL (8.5-10.1); CREATININE 3.2 mg/dL (0.6-1.3); MAGNESIUM 1.7 mg/dL (1.8-2.4); PHOSPHORUS 2.5 mg/dL (2.5-4.9); POTASSIUM 3.3 mmol/L (3.5-5.1)
[2018-12-21 07:47] VITALS: BP 91/48
[2018-12-21] MEDS: NEXIUM 40 MG VIAL IV SCH ×2 (09:00→21:00)
[2018-12-21] MEDS: MIDODRINE HCL (5MG) 5 MG TABLET NG SCH (09:00)
--- NOTE | 2018-12-21 09:50 | NUR ---
Notified Dr Castro that pt's BP 73/46 HR 64 T 97.5 F, also notified him of K 3.3. Dr Castro ordered to give NS IV bolus x 1 L.
[2018-12-21] MEDS: TRIAMCINOLONE ACETONIDE 0.1% CR 15 GM TUBE TP SCH ×2 (10:00→20:48)
[2018-12-21] MEDS: CLOTRIMAZOLE 1% 15 GM TUBE TP SCH ×2 (10:00→20:49)
[2018-12-21] MEDS: POVIDONE-IODINE OINT 28.4 GM TUBE TP SCH ×4 (10:00→20:48)
[2018-12-21] MEDS: NEOMY SULF/BACITRAC ZN/POLY 15 GM TUBE TP SCH ×2 (10:00→20:49)
[2018-12-21] MEDS: HYDROGEL DRESSING 90 GM TUBE TP SCH (10:00)
[2018-12-21] MEDS: Z GUARD REMEDY 2 OZ OINT TP SCH (10:00)
[2018-12-21] MEDS: COD LIVER OIL/ZINC OXIDE 120 GM TUBE TP SCH ×2 (10:00→20:49)
[2018-12-21] MEDS: DAKINS QUARTER STRENGTH (0.125%) 480 ML BOTTLE TOP SCH ×2 (10:00→20:48)
[2018-12-21] MEDS: INSULIN GLARGINE, 100 UNIT/ML CARTRIDGE SQ SCH ×2 (10:07→20:48)
[2018-12-21] MEDS ORDERED: TPN BAG #18 IV PRN ×8 (10:30)
--- NOTE | 2018-12-21 10:30 | NUR ---
Pt's BP 129/64 HR 88. Pt was picked up by [facility] for hemod[facility].
[2018-12-21] MEDS ORDERED: IV NS 0.9% 1,000 ML IV ONE (12:00)
--- NOTE | 2018-12-21 15:36 | NUR ---
IDT Care Plan Conference Invitation to family: LUPILLO communicated to pt.�s daughter, boyfriend, John Woodall [phone] that the next IDT meeting will be taking place this December 24 from 12:30-1:30pm in the SA activities room. Per John, he will not be in attendance nor phone conference as he is at work.
[2018-12-21 16:00] VITALS: BP 123/55
[2018-12-21] MEDS: FAT EMULSION 20% 500 ML in PREMIX 1 EA IV SCH (18:44)
[2018-12-21 19:15] VITALS: BP 92/45
[2018-12-21 20:17] VITALS: BP 109/56
[2018-12-22 00:43] VITALS: BP 128/56
[2018-12-22] MEDS: BLOOD SUGAR DIAGNOSTIC 1 EACH STRIP IN SCH ×4 (00:44→17:41)
[2018-12-22] MEDS: INSULIN REGULAR, HUMAN 100 UNIT/ML 3 ML VIAL SQ PRN ×4 (00:46→17:43)
[2018-12-22 06:04] VITALS: BP 91/58
[2018-12-22 07:27] LABS: CALCIUM, SERUM 7.7 mg/dL (8.5-10.1); CREATININE 2.3 mg/dL (0.6-1.3); MAGNESIUM 1.7 mg/dL (1.8-2.4); PHOSPHORUS 2.1 mg/dL (2.5-4.9); POTASSIUM 3.2 mmol/L (3.5-5.1)
[2018-12-22 07:53] VITALS: BP 102/55
[2018-12-22] MEDS: MIDODRINE HCL (5MG) 5 MG TABLET NG SCH (08:54)
[2018-12-22] MEDS: INSULIN GLARGINE, 100 UNIT/ML CARTRIDGE SQ SCH ×2 (08:55→21:40)
[2018-12-22] MEDS: NEXIUM 40 MG VIAL IV SCH ×2 (09:00→20:58)
[2018-12-22] MEDS ORDERED: Magnesium 1GM/D5W 100ML PREMIX 100 ML IV SCH (11:00)
[2018-12-22] MEDS ORDERED: POTASSIUM CL. PREMIX PERIPHER. 50 ML IV SCH (11:00)
[2018-12-22] MEDS: POTASSIUM CL. PREMIX PERIPHER. 50 ML IV SCH ×2 (11:30→12:30)
[2018-12-22] MEDS ORDERED: ACETAMINOPHEN SUP SA PATIENTS 650 MG SUPP RC PRN (11:30)
[2018-12-22] MEDS ORDERED: ACETAMINOPHEN 650 MG SUPP.RECT RC PRN (11:30)
[2018-12-22] MEDS: Magnesium 1GM/D5W 100ML PREMIX 100 ML IV SCH ×2 (11:30→12:30)
[2018-12-22] MEDS ORDERED: TPN BAG #19 IV PRN ×8 (11:30)
--- NOTE | 2018-12-22 11:30 | NUR ---
Given IV Magnesium Sulfate 1 gm x 2 doses ( Low Mg) and KCL 10 MEQ IV x 2 doses (Hypokalemia).
[2018-12-22] MEDS: CLOTRIMAZOLE 1% 15 GM TUBE TP SCH ×2 (11:57→21:43)
[2018-12-22] MEDS: NEOMY SULF/BACITRAC ZN/POLY 15 GM TUBE TP SCH ×2 (11:57→21:43)
[2018-12-22] MEDS: POVIDONE-IODINE OINT 28.4 GM TUBE TP SCH ×4 (11:57→21:42)
[2018-12-22] MEDS: COD LIVER OIL/ZINC OXIDE 120 GM TUBE TP SCH ×2 (11:57→21:43)
[2018-12-22] MEDS: TRIAMCINOLONE ACETONIDE 0.1% CR 15 GM TUBE TP SCH ×2 (11:58→21:42)
[2018-12-22 12:00] VITALS: BP 146/80
--- NOTE | 2018-12-22 13:00 | NUR ---
Seen and examined by Hellen Leija NP no new order given.
[2018-12-22] MEDS: IPRATROPIUM NEB FS 0.5 MG/2.5 ML AMPUL.NEB IH SCH ×2 (14:29→18:57)
[2018-12-22] MEDS: ALBUTEROL FS 2.5 MG/0.5 ML VIAL.NEB NEB SCH ×2 (14:29→18:57)
[2018-12-22 18:00] VITALS: BP 143/86
[2018-12-22] MEDS: HYDROGEN PEROXIDE 480 ML BOTTLE TP SCH (18:57)
[2018-12-22 20:47] VITALS: BP 153/79
[2018-12-22] MEDS: DAKINS QUARTER STRENGTH (0.125%) 480 ML BOTTLE TOP SCH (21:42)
[2018-12-22] MEDS: HYDROGEL DRESSING 90 GM TUBE TP SCH (21:42)
[2018-12-22] MEDS: Z GUARD REMEDY 2 OZ OINT TP SCH (21:43)
[2018-12-23] VITALS (7 sets, daily range): BP systolic 114–151; BP diastolic 66–76
[2018-12-23] MEDS: BLOOD SUGAR DIAGNOSTIC 1 EACH STRIP IN SCH ×5 (00:11→23:58)
[2018-12-23] MEDS: INSULIN REGULAR, HUMAN 100 UNIT/ML 3 ML VIAL SQ PRN ×4 (00:13→23:59)
[2018-12-23] MEDS: ALBUTEROL FS 2.5 MG/0.5 ML VIAL.NEB NEB SCH ×4 (01:46→19:53)
[2018-12-23] MEDS: IPRATROPIUM NEB FS 0.5 MG/2.5 ML AMPUL.NEB IH SCH ×4 (01:46→19:53)
--- NOTE | 2018-12-23 03:54 | NUR ---
PATIENT RECEIVED ON TRACH TO VENT WITH SETTINGS OF AC 12, 500 VT, 40%, +0. SUCTIONED WITH LAVAGE FOR MINIMAL, THIN, YELLOW-CREAM SECRETIONS. GIVEN IN-LINE TREATMENTS WITH NO ADVERSE REACTIONS. AMBU BAG AT BEDSIDE. VENT AND PULSE OXIMETER ALARMS AUDIBLE AND VISIBLE. Addendum: 12/23/18 at 0355 by JAMARI PATEL RT Amended: Links added.
[2018-12-23] MEDS: MIDODRINE HCL (5MG) 5 MG TABLET NG SCH (08:07)
[2018-12-23] MEDS: INSULIN GLARGINE, 100 UNIT/ML CARTRIDGE SQ SCH ×2 (08:13→21:22)
[2018-12-23] MEDS: HYDROGEN PEROXIDE 480 ML BOTTLE TP SCH ×2 (08:21→22:33)
[2018-12-23] MEDS: NEOMY SULF/BACITRAC ZN/POLY 15 GM TUBE TP SCH ×2 (09:00→21:23)
[2018-12-23] MEDS: CLOTRIMAZOLE 1% 15 GM TUBE TP SCH ×2 (09:00→21:23)
[2018-12-23] MEDS: TRIAMCINOLONE ACETONIDE 0.1% CR 15 GM TUBE TP SCH ×2 (09:00→21:23)
[2018-12-23] MEDS: NEXIUM 40 MG VIAL IV SCH ×2 (09:00→20:55)
[2018-12-23] MEDS: Z GUARD REMEDY 2 OZ OINT TP SCH ×2 (09:00→21:23)
[2018-12-23] MEDS: POVIDONE-IODINE OINT 28.4 GM TUBE TP SCH ×4 (09:00→21:23)
[2018-12-23] MEDS: DAKINS QUARTER STRENGTH (0.125%) 480 ML BOTTLE TOP SCH ×2 (09:00→21:23)
[2018-12-23] MEDS: HYDROGEL DRESSING 90 GM TUBE TP SCH ×2 (09:00→21:23)
[2018-12-23] MEDS ORDERED: Z GUARD REMEDY 2 OZ OINT TP SCH (09:00)
[2018-12-23] MEDS: COD LIVER OIL/ZINC OXIDE 120 GM TUBE TP SCH ×2 (09:00→21:23)
--- NOTE | 2018-12-23 10:52 | NUR ---
RESIDENT WAS TRANSFERRED TO [facility] FOR ROUTINE DIALYSIS, NO FACIAL GRIMACING NOTED, WAS SUCTIONED VIA TRACH AND ORAL WITH MINIMAL SECRETIONS, SATURATION 97-99%, VITAL SIGNS BLOOD PRESSURE 140/76, PULSE 80.
[2018-12-23] MEDS ORDERED: TPN BAG #20 IV PRN ×8 (11:30)
--- NOTE | 2018-12-23 15:15 | NUR ---
Resident returned from dialysis center connected to ventilator as prescribed by md, connected to intermediate suctioning, vital signs blood pressure 139/72, pulse 90,resp 21, temp 98.7, pre dialysis weight 78.5kg, and post dialysis weight 75.6kg, av shunt bruit present, site dry dressing, no bleeding.
[2018-12-23 16:31] LABS: CALCIUM, SERUM 8.2 mg/dL (8.5-10.1); CREATININE 1.8 mg/dL (0.6-1.3); PHOSPHORUS 2.1 mg/dL (2.5-4.9); POTASSIUM 3.6 mmol/L (3.5-5.1)
[2018-12-23] MEDS: FAT EMULSION 20% 500 ML in PREMIX 1 EA IV SCH (18:00)
--- NOTE | 2018-12-23 21:20 | NUR ---
Seen and examined by Hellen MOSQUEDA.
--- NOTE | 2018-12-23 22:34 | NUR ---
Pt rec'd trached on [facility] vent settings as charted. no resp distress or sob noted. trach is patent and secured. sx'd for thick mod amt of pale yellow secretions. alarms are set and audible. vent plugged into red outlet. ambu bag bedside. will continue to monitor. Addendum: 12/23/18 at 2236 by LOUISA CRUZ RT Amended: Links added.
[2018-12-24 00:20] VITALS: BP 127/65
[2018-12-24] MEDS: IPRATROPIUM NEB FS 0.5 MG/2.5 ML AMPUL.NEB IH SCH ×4 (01:22→20:17)
[2018-12-24] MEDS: ALBUTEROL FS 2.5 MG/0.5 ML VIAL.NEB NEB SCH ×4 (01:22→20:17)
[2018-12-24 05:00] VITALS: BP 102/56
[2018-12-24] MEDS: BLOOD SUGAR DIAGNOSTIC 1 EACH STRIP IN SCH ×3 (05:53→17:31)
[2018-12-24] MEDS: INSULIN REGULAR, HUMAN 100 UNIT/ML 3 ML VIAL SQ PRN ×3 (05:54→17:40)
[2018-12-24 08:12] VITALS: BP 102/53
[2018-12-24] MEDS: Z GUARD REMEDY 2 OZ OINT TP SCH ×2 (09:00→21:51)
[2018-12-24] MEDS: HYDROGEL DRESSING 90 GM TUBE TP SCH ×2 (09:00→21:50)
[2018-12-24] MEDS: CLOTRIMAZOLE 1% 15 GM TUBE TP SCH ×2 (09:00→21:50)
[2018-12-24] MEDS: COD LIVER OIL/ZINC OXIDE 120 GM TUBE TP SCH ×2 (09:00→21:50)
[2018-12-24] MEDS: DAKINS QUARTER STRENGTH (0.125%) 480 ML BOTTLE TOP SCH ×2 (09:00→21:49)
[2018-12-24] MEDS: POVIDONE-IODINE OINT 28.4 GM TUBE TP SCH ×4 (09:00→21:50)
[2018-12-24] MEDS: HYDROGEN PEROXIDE 480 ML BOTTLE TP SCH ×2 (09:00→20:59)
[2018-12-24] MEDS: TRIAMCINOLONE ACETONIDE 0.1% CR 15 GM TUBE TP SCH ×2 (09:00→21:50)
[2018-12-24] MEDS: NEXIUM 40 MG VIAL IV SCH ×2 (09:00→20:13)
[2018-12-24] MEDS: NEOMY SULF/BACITRAC ZN/POLY 15 GM TUBE TP SCH ×2 (09:00→21:50)
[2018-12-24] MEDS: MIDODRINE HCL (5MG) 5 MG TABLET NG SCH (09:17)
[2018-12-24] MEDS: INSULIN GLARGINE, 100 UNIT/ML CARTRIDGE SQ SCH ×2 (09:30→20:16)
[2018-12-24 10:14] LABS: CALCIUM, SERUM 7.7 mg/dL (8.5-10.1); CREATININE 2.4 mg/dL (0.6-1.3); POTASSIUM 4.2 mmol/L (3.5-5.1)
[2018-12-24 10:18] LABS: PHOSPHORUS 2.2 mg/dL (2.5-4.9)
[2018-12-24 12:00] VITALS: BP 106/53
[2018-12-24] MEDS ORDERED: TPN BAG #21 IV PRN ×8 (14:00)
--- NOTE | 2018-12-24 14:25 | NUR ---
Received order to hold Lipids until further order. Pharmacy said they will review in 3 days.
--- NOTE | 2018-12-24 15:41 | NUR ---
INTERDISCIPLINARY TEAM PLAN OF CARE Conference was held today. The patient's responsible republican/ boyfriend John Woodall [phone] could not attend IDT. Charge nurse discussed contact isolation, IV Magnesium Sulfate 1 gm x 2 doses (Low Mg) and KCL 10 MEQ IV x 2 doses (Hypokalemia) on 12/22 and Potassium Phosphate 15 MMOL on 12/19. Dr. Morejon and interdisciplinary team discussed the current plan of care in detail. Current orders as well as treatments and medications were reviewed. See other discipline's IDT notes for further details.
[2018-12-24 18:00] VITALS: BP 108/63
[2018-12-24 20:11] VITALS: BP 139/58
--- NOTE | 2018-12-24 21:14 | NUR ---
Pt Rec'd trached on [facility] vent settings as charted. no resp distress or sob noted. trach is patent and secured. sx'd for thick mod amt of pale yellow secretions. alarms are set audible. vent plugged into red outlet. ambu bag bedside. will continue to monitor. Addendum: 12/24/18 at 2114 by LOUISA CRUZ RT Amended: Links added.
[2018-12-25] VITALS: BP 119/60
[2018-12-25] MEDS: BLOOD SUGAR DIAGNOSTIC 1 EACH STRIP IN SCH ×5 (00:14→23:29)
[2018-12-25] MEDS: INSULIN REGULAR, HUMAN 100 UNIT/ML 3 ML VIAL SQ PRN ×4 (00:16→23:47)
[2018-12-25] MEDS: ALBUTEROL FS 2.5 MG/0.5 ML VIAL.NEB NEB SCH ×3 (02:01→19:42)
[2018-12-25] MEDS: IPRATROPIUM NEB FS 0.5 MG/2.5 ML AMPUL.NEB IH SCH ×4 (02:01→19:42)
[2018-12-25 06:19] VITALS: BP 145/71
[2018-12-25 07:46] VITALS: BP 136/71
[2018-12-25 07:50] LABS: CALCIUM, SERUM 7.7 mg/dL (8.5-10.1); CREATININE 2.9 mg/dL (0.6-1.3); MAGNESIUM 2.4 mg/dL (1.8-2.4); PHOSPHORUS 3.1 mg/dL (2.5-4.9); POTASSIUM 4.2 mmol/L (3.5-5.1)
[2018-12-25] MEDS: MIDODRINE HCL (5MG) 5 MG TABLET NG SCH (08:02)
[2018-12-25] MEDS: INSULIN GLARGINE, 100 UNIT/ML CARTRIDGE SQ SCH ×2 (08:04→21:01)
[2018-12-25] MEDS: HYDROGEN PEROXIDE 480 ML BOTTLE TP SCH ×2 (09:00→21:24)
[2018-12-25] MEDS: TRIAMCINOLONE ACETONIDE 0.1% CR 15 GM TUBE TP SCH ×2 (09:39→20:17)
[2018-12-25] MEDS: NEXIUM 40 MG VIAL IV SCH ×2 (09:39→21:25)
[2018-12-25] MEDS: POVIDONE-IODINE OINT 28.4 GM TUBE TP SCH ×4 (09:43→20:17)
[2018-12-25] MEDS: CLOTRIMAZOLE 1% 15 GM TUBE TP SCH ×2 (09:44→20:18)
[2018-12-25] MEDS: COD LIVER OIL/ZINC OXIDE 120 GM TUBE TP SCH ×2 (09:44→20:18)
[2018-12-25] MEDS: HYDROGEL DRESSING 90 GM TUBE TP SCH ×2 (09:44→20:17)
[2018-12-25] MEDS: NEOMY SULF/BACITRAC ZN/POLY 15 GM TUBE TP SCH ×2 (09:44→20:18)
[2018-12-25] MEDS: Z GUARD REMEDY 2 OZ OINT TP SCH ×2 (09:45→20:18)
[2018-12-25] MEDS ORDERED: TPN BAG #22 IV PRN ×7 (11:00)
--- NOTE | 2018-12-25 12:00 | NUR ---
RESIDENT OUT OF FACILITY WENT TO GET DIALYSIS. Addendum: 12/25/18 at 1447 by PO ACOSTA RN Amended: Links added.
[2018-12-25 18:00] VITALS: BP 124/78
[2018-12-25 20:00] VITALS: BP 145/66
[2018-12-25] MEDS: DAKINS QUARTER STRENGTH (0.125%) 480 ML BOTTLE TOP SCH ×2 (21:00→21:25)
[2018-12-25 21:03] VITALS: BP 145/66
[2018-12-26] VITALS (7 sets, daily range): BP systolic 94–140; BP diastolic 42–64
[2018-12-26] MEDS: IPRATROPIUM NEB FS 0.5 MG/2.5 ML AMPUL.NEB IH SCH ×4 (01:53→19:54)
[2018-12-26] MEDS: ALBUTEROL FS 2.5 MG/0.5 ML VIAL.NEB NEB SCH ×4 (01:55→19:54)
[2018-12-26] MEDS: BLOOD SUGAR DIAGNOSTIC 1 EACH STRIP IN SCH ×4 (05:11→23:23)
--- NOTE | 2018-12-26 06:01 | NUR ---
RN NOTES 0515 Found patient's NGT on the floor complete and intact. Patient on bed remained stable, no apparent signs of discomfort or distress. With brownish secretions in the suction tube attached to NGT noted. 0600 Reinserted NGT by the RN cellar supervisor to patient's L nares. Patient tolerated the procedure well. No tube recoil visible in the patient's mouth. No constant coughing noted, patient remained no signs of distress or discomfort noted at this time. Secured NGT, attached to intermittent low suction as ordered. No secretions noted at this time. Will continue to monitor accordingly.
[2018-12-26] MEDS: INSULIN REGULAR, HUMAN 100 UNIT/ML 3 ML VIAL SQ PRN ×4 (06:14→23:24)
[2018-12-26 08:26] LABS: CALCIUM, SERUM 7.6 mg/dL (8.5-10.1); CREATININE 2.2 mg/dL (0.6-1.3); MAGNESIUM 2.1 mg/dL (1.8-2.4); PHOSPHORUS 3.1 mg/dL (2.5-4.9); POTASSIUM 3.8 mmol/L (3.5-5.1)
[2018-12-26] MEDS: NEXIUM 40 MG VIAL IV SCH ×2 (08:38→21:00)
[2018-12-26] MEDS: MIDODRINE HCL (5MG) 5 MG TABLET NG SCH (08:40)
[2018-12-26] MEDS: POVIDONE-IODINE OINT 28.4 GM TUBE TP SCH ×4 (08:45→21:57)
[2018-12-26] MEDS: DAKINS QUARTER STRENGTH (0.125%) 480 ML BOTTLE TOP SCH ×2 (08:45→21:56)
[2018-12-26] MEDS: TRIAMCINOLONE ACETONIDE 0.1% CR 15 GM TUBE TP SCH ×2 (08:45→21:56)
[2018-12-26] MEDS: INSULIN GLARGINE, 100 UNIT/ML CARTRIDGE SQ SCH ×2 (08:45→21:55)
[2018-12-26] MEDS: NEOMY SULF/BACITRAC ZN/POLY 15 GM TUBE TP SCH (08:46)
[2018-12-26] MEDS: HYDROGEL DRESSING 90 GM TUBE TP SCH ×2 (08:46→21:57)
[2018-12-26] MEDS: Z GUARD REMEDY 2 OZ OINT TP SCH ×2 (08:46→21:57)
[2018-12-26] MEDS: COD LIVER OIL/ZINC OXIDE 120 GM TUBE TP SCH (08:46)
[2018-12-26] MEDS: HYDROGEN PEROXIDE 480 ML BOTTLE TP SCH ×2 (08:46→21:00)
[2018-12-26] MEDS: CLOTRIMAZOLE 1% 15 GM TUBE TP SCH ×2 (08:46→21:57)
[2018-12-26] MEDS ORDERED: TPN BAG #22 IV PRN ×7 (11:00)
[2018-12-26] MEDS ORDERED: TPN BAG #23 IV PRN ×7 (11:00)
[2018-12-27 00:46] VITALS: BP 111/56
[2018-12-27] MEDS: ALBUTEROL FS 2.5 MG/0.5 ML VIAL.NEB NEB SCH ×4 (01:59→19:41)
[2018-12-27] MEDS: IPRATROPIUM NEB FS 0.5 MG/2.5 ML AMPUL.NEB IH SCH ×4 (01:59→19:41)
[2018-12-27] MEDS: BLOOD SUGAR DIAGNOSTIC 1 EACH STRIP IN SCH ×4 (05:45→23:54)
[2018-12-27] MEDS: INSULIN REGULAR, HUMAN 100 UNIT/ML 3 ML VIAL SQ PRN ×4 (05:46→23:55)
[2018-12-27 06:16] VITALS: BP 115/58
[2018-12-27 06:50] LABS: CALCIUM, SERUM 7.6 mg/dL (8.5-10.1); CREATININE 2.7 mg/dL (0.6-1.3); POTASSIUM 3.8 mmol/L (3.5-5.1)
[2018-12-27] MEDS: MIDODRINE HCL (5MG) 5 MG TABLET NG SCH (09:00)
[2018-12-27] MEDS: TRIAMCINOLONE ACETONIDE 0.1% CR 15 GM TUBE TP SCH ×2 (09:24→21:12)
[2018-12-27] MEDS: HYDROGEL DRESSING 90 GM TUBE TP SCH ×2 (09:24→21:13)
[2018-12-27] MEDS: Z GUARD REMEDY 2 OZ OINT TP SCH ×2 (09:24→21:13)
[2018-12-27] MEDS: HYDROGEN PEROXIDE 480 ML BOTTLE TP SCH ×2 (09:24→21:13)
[2018-12-27] MEDS: POVIDONE-IODINE OINT 28.4 GM TUBE TP SCH ×4 (09:24→21:12)
[2018-12-27] MEDS: DAKINS QUARTER STRENGTH (0.125%) 480 ML BOTTLE TOP SCH ×2 (09:24→21:12)
[2018-12-27] MEDS: CLOTRIMAZOLE 1% 15 GM TUBE TP SCH ×2 (09:24→21:13)
[2018-12-27] MEDS: INSULIN GLARGINE, 100 UNIT/ML CARTRIDGE SQ SCH ×2 (09:32→21:12)
[2018-12-27] MEDS: NEXIUM 40 MG VIAL IV SCH ×2 (09:46→21:10)
[2018-12-27 10:33] VITALS: BP 132/69
[2018-12-27 12:00] VITALS: BP 138/60
[2018-12-27] MEDS ORDERED: TPN BAG #24 IV PRN ×7 (12:00)
[2018-12-27 18:19] VITALS: BP 128/69
[2018-12-27 21:12] VITALS: BP 154/75
[2018-12-28 00:36] VITALS: BP 144/72
[2018-12-28] MEDS: IPRATROPIUM NEB FS 0.5 MG/2.5 ML AMPUL.NEB IH SCH ×4 (01:49→19:50)
[2018-12-28] MEDS: ALBUTEROL FS 2.5 MG/0.5 ML VIAL.NEB NEB SCH ×4 (01:49→19:50)
[2018-12-28] MEDS: BLOOD SUGAR DIAGNOSTIC 1 EACH STRIP IN SCH ×4 (05:38→23:42)
[2018-12-28 06:14] VITALS: BP 136/74
[2018-12-28 07:38] VITALS: BP 111/46
[2018-12-28 07:56] LABS: CALCIUM, SERUM 7.7 mg/dL (8.5-10.1); CREATININE 3.3 mg/dL (0.6-1.3); MAGNESIUM 2.1 mg/dL (1.8-2.4); PHOSPHORUS 3.5 mg/dL (2.5-4.9); POTASSIUM 4.3 mmol/L (3.5-5.1)
[2018-12-28] MEDS: MIDODRINE HCL (5MG) 5 MG TABLET NG SCH (08:41)
[2018-12-28] MEDS: INSULIN GLARGINE, 100 UNIT/ML CARTRIDGE SQ SCH ×2 (08:44→21:10)
[2018-12-28] MEDS: NEXIUM 40 MG VIAL IV SCH ×2 (09:00→21:00)
[2018-12-28] MEDS: HYDROGEN PEROXIDE 480 ML BOTTLE TP SCH ×2 (09:00→21:10)
[2018-12-28] MEDS: Z GUARD REMEDY 2 OZ OINT TP SCH ×2 (09:45→21:10)
[2018-12-28] MEDS: HYDROGEL DRESSING 90 GM TUBE TP SCH ×2 (09:45→21:10)
[2018-12-28] MEDS: POVIDONE-IODINE OINT 28.4 GM TUBE TP SCH ×4 (09:45→21:10)
[2018-12-28] MEDS: CLOTRIMAZOLE 1% 15 GM TUBE TP SCH ×2 (09:45→21:10)
[2018-12-28] MEDS: TRIAMCINOLONE ACETONIDE 0.1% CR 15 GM TUBE TP SCH ×2 (09:45→21:10)
[2018-12-28] MEDS: DAKINS QUARTER STRENGTH (0.125%) 480 ML BOTTLE TOP SCH ×2 (09:45→21:10)
--- NOTE | 2018-12-28 10:45 | NUR ---
Resident picked up by [facility] for hemodialyis treatment, via gurney. Accompanied by 2 EMT's and 1 RT. RFA AV shunt intact, no bleeding noted. Positive for thrill and bruit. Pt afebrile. Resident left the building in stable condition.
[2018-12-28 15:00] VITALS: BP 137/76
[2018-12-28] MEDS ORDERED: TPN BAG #25 IV PRN ×6 (15:30)
[2018-12-28] MEDS: INSULIN REGULAR, HUMAN 100 UNIT/ML 3 ML VIAL SQ PRN (17:15)
--- NOTE | 2018-12-28 17:39 | NUR ---
RT Charlie and RT Murray reported that pt appears to have subcutaneous emphysema. Pt not on any respiratory distress, pt appears comfortable, no desaturation. Notified Dr Morejon. He ordered CXR. Notified John.
[2018-12-28 18:46] VITALS: BP 150/88
[2018-12-28 20:44] VITALS: BP 129/65
[2018-12-29 00:18] VITALS: BP 142/78
[2018-12-29] MEDS: ALBUTEROL FS 2.5 MG/0.5 ML VIAL.NEB NEB SCH ×4 (01:58→19:46)
[2018-12-29] MEDS: IPRATROPIUM NEB FS 0.5 MG/2.5 ML AMPUL.NEB IH SCH ×4 (01:58→19:46)
[2018-12-29] MEDS: BLOOD SUGAR DIAGNOSTIC 1 EACH STRIP IN SCH ×4 (05:48→23:58)
[2018-12-29 06:04] VITALS: BP 132/59
[2018-12-29 07:52] LABS: CALCIUM, SERUM 7.7 mg/dL (8.5-10.1); CREATININE 2.5 mg/dL (0.6-1.3); MAGNESIUM 1.8 mg/dL (1.8-2.4); PHOSPHORUS 3.2 mg/dL (2.5-4.9); POTASSIUM 3.7 mmol/L (3.5-5.1)
[2018-12-29] MEDS: HYDROGEN PEROXIDE 480 ML BOTTLE TP SCH ×2 (08:32→21:02)
[2018-12-29] MEDS: NEXIUM 40 MG VIAL IV SCH ×2 (09:00→21:00)
[2018-12-29] MEDS: MIDODRINE HCL (5MG) 5 MG TABLET NG SCH (09:00)
[2018-12-29] MEDS ORDERED: POVIDONE-IODINE OINT 28.4 GM TUBE TP ONE (09:01)
[2018-12-29] MEDS: INSULIN GLARGINE, 100 UNIT/ML CARTRIDGE SQ SCH ×2 (09:55→21:35)
[2018-12-29] MEDS ORDERED: TPN BAG #26 IV PRN ×7 (10:00)
--- NOTE | 2018-12-29 10:00 | NUR ---
Noted there was no gastric residual coming from patient's NGT which is connected to the suction wall. Assessed NGT for proper placement, noted that gurgling sound is coming from her mouth. Removed and reinserted NGT. Obtained an order from Dr. Morejon for KUB to check for placement. Order carried out.
[2018-12-29 12:00] VITALS: BP 160/74
[2018-12-29 12:42] VITALS: BP 142/62
[2018-12-29] MEDS: DAKINS QUARTER STRENGTH (0.125%) 480 ML BOTTLE TOP SCH ×2 (12:58→22:00)
[2018-12-29] MEDS: BETADINE 5% TP SCH ×4 (12:59→22:00)
[2018-12-29] MEDS: Z GUARD REMEDY 2 OZ OINT TP SCH ×2 (12:59→22:00)
[2018-12-29] MEDS: CLOTRIMAZOLE 1% 15 GM TUBE TP SCH ×2 (12:59→22:00)
[2018-12-29] MEDS: HYDROGEL DRESSING 90 GM TUBE TP SCH ×2 (12:59→22:00)
[2018-12-29] MEDS: TRIAMCINOLONE ACETONIDE 0.1% CR 15 GM TUBE TP SCH ×2 (12:59→22:00)
[2018-12-29] MEDS: POVIDONE-IODINE OINT 28.4 GM TUBE TP SCH ×4 (12:59→22:00)
[2018-12-29] MEDS: INSULIN REGULAR, HUMAN 100 UNIT/ML 3 ML VIAL SQ PRN ×2 (13:00→18:25)
--- NOTE | 2018-12-29 13:00 | NUR ---
Notified Dr. Morejon of the chest Xray result that was taken 12/29/18. NNO given, Reported KUB result with NGT in the stomach but its tip recoiled to the distal esophagus. Dr. Morejon gave another order fro KUB after NGT is repositioned. Order carried out.
[2018-12-29] MEDS: FAT EMULSION 20% 500 ML in PREMIX 1 EA IV SCH (14:52)
--- NOTE | 2018-12-29 17:07 | NUR ---
Reported the second KUB result to Dr. Morejon. NGT tip is in the gastric body. NNO given, however per Dr. Morejon to refer to GI if there are other issues. Endorsed.
[2018-12-29 18:00] VITALS: BP 146/64
--- NOTE | 2018-12-29 18:50 | NUR ---
NGT gastric output in canister is 350 ml. Greenish/yellowish/brownish in color. NGT on intermittent suction. NGT in place. Secured properly. HOB elevated. Aspiration precautions maintained.
[2018-12-29 22:45] VITALS: BP 105/79
[2018-12-30 00:20] VITALS: BP_SYST 159; BP_DIAS 18; BP_DIAS 79
[2018-12-30] MEDS: ALBUTEROL FS 2.5 MG/0.5 ML VIAL.NEB NEB SCH ×4 (01:31→19:41)
[2018-12-30] MEDS: IPRATROPIUM NEB FS 0.5 MG/2.5 ML AMPUL.NEB IH SCH ×4 (01:31→19:41)
[2018-12-30] MEDS: BLOOD SUGAR DIAGNOSTIC 1 EACH STRIP IN SCH ×3 (06:00→17:53)
[2018-12-30] MEDS: INSULIN REGULAR, HUMAN 100 UNIT/ML 3 ML VIAL SQ PRN ×2 (06:01)
[2018-12-30 06:34] VITALS: BP 168/92
[2018-12-30 07:22] LABS: CALCIUM, SERUM 7.7 mg/dL (8.5-10.1); CREATININE 3.1 mg/dL (0.6-1.3); MAGNESIUM 1.9 mg/dL (1.8-2.4); POTASSIUM 3.6 mmol/L (3.5-5.1)
[2018-12-30 07:42] VITALS: BP 139/80
[2018-12-30] MEDS: HYDROGEN PEROXIDE 480 ML BOTTLE TP SCH ×2 (08:21→20:14)
[2018-12-30] MEDS: MIDODRINE HCL (5MG) 5 MG TABLET NG SCH (09:00)
[2018-12-30] MEDS ORDERED: TPN BAG #27 IV PRN ×7 (09:00)
[2018-12-30] MEDS: NEXIUM 40 MG VIAL IV SCH ×3 (09:47→21:15)
[2018-12-30] MEDS: INSULIN GLARGINE, 100 UNIT/ML CARTRIDGE SQ SCH ×2 (09:53→21:15)
[2018-12-30] MEDS: DAKINS QUARTER STRENGTH (0.125%) 480 ML BOTTLE TOP SCH ×2 (09:55→21:16)
[2018-12-30] MEDS: TRIAMCINOLONE ACETONIDE 0.1% CR 15 GM TUBE TP SCH ×2 (09:55→21:16)
[2018-12-30] MEDS: POVIDONE-IODINE OINT 28.4 GM TUBE TP SCH ×4 (09:56→21:16)
[2018-12-30] MEDS: CLOTRIMAZOLE 1% 15 GM TUBE TP SCH ×2 (09:57→21:16)
[2018-12-30] MEDS: BETADINE 5% TP SCH ×4 (09:57→21:16)
[2018-12-30] MEDS: HYDROGEL DRESSING 90 GM TUBE TP SCH ×2 (09:57→21:16)
[2018-12-30] MEDS: Z GUARD REMEDY 2 OZ OINT TP SCH ×2 (09:57→21:16)
[2018-12-30 14:50] VITALS: BP 94/55
[2018-12-30 18:00] VITALS: BP 93/56
[2018-12-30 19:50] VITALS: BP 94/51
[2018-12-31] VITALS: BP 101/57
[2018-12-31] MEDS: INSULIN REGULAR, HUMAN 100 UNIT/ML 3 ML VIAL SQ PRN ×5 (00:07→23:45)
[2018-12-31] MEDS: BLOOD SUGAR DIAGNOSTIC 1 EACH STRIP IN SCH ×5 (00:07→23:43)
[2018-12-31] MEDS: IPRATROPIUM NEB FS 0.5 MG/2.5 ML AMPUL.NEB IH SCH ×4 (01:01→20:05)
[2018-12-31] MEDS: ALBUTEROL FS 2.5 MG/0.5 ML VIAL.NEB NEB SCH ×4 (01:01→20:05)
--- NOTE | 2018-12-31 03:58 | NUR ---
PT RCVD TRACH'D ON MECHANICAL VENT WITH CHARTED SETTINGS. PT CESARIO TX WELL. SX DONE. PT TRACH IS PATENT AND SECURE. VENT ALARMS APPEAR TO BE FUNCTIONING PROPERLY. VENT PLUGGED INTO RED OUTLET. AMBU BAG AT BEDSIDE. Addendum: 12/31/18 at 0400 by BETTY VILLEGAS RT Amended: Links added.
[2018-12-31 06:00] VITALS: BP 91/50
[2018-12-31 07:52] VITALS: BP 79/37
[2018-12-31] MEDS: DAKINS QUARTER STRENGTH (0.125%) 480 ML BOTTLE TOP SCH ×2 (09:00→21:15)
[2018-12-31] MEDS: INSULIN GLARGINE, 100 UNIT/ML CARTRIDGE SQ SCH ×2 (09:00→21:12)
[2018-12-31] MEDS: POVIDONE-IODINE OINT 28.4 GM TUBE TP SCH ×4 (09:00→21:15)
[2018-12-31] MEDS: MIDODRINE HCL (5MG) 5 MG TABLET NG SCH (09:00)
[2018-12-31] MEDS: Z GUARD REMEDY 2 OZ OINT TP SCH ×2 (09:00→21:16)
[2018-12-31] MEDS: CLOTRIMAZOLE 1% 15 GM TUBE TP SCH ×2 (09:00→21:16)
[2018-12-31] MEDS: HYDROGEL DRESSING 90 GM TUBE TP SCH ×2 (09:00→21:15)
[2018-12-31] MEDS: BETADINE 5% TP SCH ×4 (09:00→21:16)
[2018-12-31] MEDS: TRIAMCINOLONE ACETONIDE 0.1% CR 15 GM TUBE TP SCH ×2 (09:00→21:15)
[2018-12-31] MEDS: NEXIUM 40 MG VIAL IV SCH ×2 (09:00→21:25)
[2018-12-31 09:14] LABS: CALCIUM, SERUM 7.6 mg/dL (8.5-10.1); CREATININE 2.7 mg/dL (0.6-1.3); POTASSIUM 3.5 mmol/L (3.5-5.1)
[2018-12-31 09:15] LABS: MAGNESIUM 1.8 mg/dL (1.8-2.4); PHOSPHORUS 3.1 mg/dL (2.5-4.9)
[2018-12-31] MEDS: HYDROGEN PEROXIDE 480 ML BOTTLE TP SCH ×2 (09:59→20:05)
[2018-12-31] MEDS ORDERED: TPN BAG #28 IV PRN ×8 (11:30)
[2018-12-31 12:00] VITALS: BP 118/68
--- NOTE | 2018-12-31 15:53 | NUR ---
RT TRACH TUBE IN PLACE, PATENT, AND SECURED WITH TRACH TIE. VENT PLUGGED IN TO RED OUTLET. ALARMS ON AND AUDIBLE. AMBU BAG AND BACK UP TRACH BY THE BEDSIDE. PT STABLE AT THIS TIME. NO RESP DISTRESS. Addendum: 12/31/18 at 1553 by THIERRY MEZA RT Amended: Links added.
[2018-12-31 18:30] VITALS: BP 138/78
[2018-12-31 20:01] VITALS: BP 130/67
--- NOTE | 2018-12-31 23:27 | NUR ---
PT RCVD TRACH'D ON MECHANICAL VENT WITH CHARTED SETTINGS. PT CESARIO TX WELL. SX DONE. PT TRACH IS PATENT AND SECURE. VENT ALARMS APPEAR TO BE FUNCTIONING PROPERLY. VENT PLUGGED INTO RED OUTLET. AMBU BAG AT BEDSIDE. Addendum: 12/31/18 at 2327 by BETTY VILLEGAS RT Amended: Links added.
[2019-01-01 00:20] VITALS: BP 152/77
[2019-01-01] MEDS: ALBUTEROL FS 2.5 MG/0.5 ML VIAL.NEB NEB SCH ×4 (01:08→20:22)
[2019-01-01] MEDS: IPRATROPIUM NEB FS 0.5 MG/2.5 ML AMPUL.NEB IH SCH ×4 (01:08→20:22)
[2019-01-01] MEDS: BLOOD SUGAR DIAGNOSTIC 1 EACH STRIP IN SCH ×3 (05:28→18:28)
[2019-01-01] MEDS: INSULIN REGULAR, HUMAN 100 UNIT/ML 3 ML VIAL SQ PRN (05:28)
[2019-01-01 06:27] VITALS: BP 160/76
[2019-01-01 07:57] VITALS: BP 169/78
[2019-01-01 08:34] LABS: CALCIUM, SERUM 7.6 mg/dL (8.5-10.1); CREATININE 3.2 mg/dL (0.6-1.3); MAGNESIUM 1.9 mg/dL (1.8-2.4); PHOSPHORUS 3.8 mg/dL (2.5-4.9); POTASSIUM 3.6 mmol/L (3.5-5.1)
[2019-01-01] MEDS: HYDROGEL DRESSING 90 GM TUBE TP SCH ×2 (09:00→21:25)
[2019-01-01] MEDS: NEXIUM 40 MG VIAL IV SCH ×2 (09:00→21:00)
[2019-01-01] MEDS: POVIDONE-IODINE OINT 28.4 GM TUBE TP SCH ×4 (09:00→21:25)
[2019-01-01] MEDS: MIDODRINE HCL (5MG) 5 MG TABLET NG SCH (09:00)
[2019-01-01] MEDS: CLOTRIMAZOLE 1% 15 GM TUBE TP SCH ×2 (09:00→21:26)
[2019-01-01] MEDS: HYDROGEN PEROXIDE 480 ML BOTTLE TP SCH ×2 (09:00→21:00)
[2019-01-01] MEDS: BETADINE 5% TP SCH ×4 (09:00→21:25)
[2019-01-01] MEDS: Z GUARD REMEDY 2 OZ OINT TP SCH ×2 (09:00→21:26)
[2019-01-01] MEDS: INSULIN GLARGINE, 100 UNIT/ML CARTRIDGE SQ SCH ×2 (09:59→21:25)
[2019-01-01] MEDS: DAKINS QUARTER STRENGTH (0.125%) 480 ML BOTTLE TOP SCH ×2 (09:59→21:25)
[2019-01-01] MEDS: TRIAMCINOLONE ACETONIDE 0.1% CR 15 GM TUBE TP SCH ×2 (09:59→21:25)
[2019-01-01] MEDS ORDERED: TPN BAG #29 IV PRN ×8 (10:30)
[2019-01-01 15:10] VITALS: BP 121/67
[2019-01-01] MEDS: FAT EMULSION 20% 500 ML in PREMIX 1 EA IV SCH (15:30)
[2019-01-01 18:42] VITALS: BP 142/74
[2019-01-01 19:43] VITALS: BP_SYST 106; BP_SYST 127; BP_DIAS 52; BP_DIAS 63
[2019-01-01] MEDS: ACETYLCYSTEINE 20% SOLN 800 MG/4 ML VIAL NEB SCH (20:00)
--- NOTE | 2019-01-01 20:00 | NUR ---
Acetylcysteine was not given at 1999. Medication has not yet arrive from pharmacy. surtass analyst and Primary RN aware.
[2019-01-02] MEDS: BLOOD SUGAR DIAGNOSTIC 1 EACH STRIP IN SCH ×4 (00:03→17:36)
[2019-01-02] MEDS: INSULIN REGULAR, HUMAN 100 UNIT/ML 3 ML VIAL SQ PRN ×4 (00:04→17:40)
[2019-01-02 00:30] VITALS: BP 144/62
[2019-01-02] MEDS: IPRATROPIUM NEB FS 0.5 MG/2.5 ML AMPUL.NEB IH SCH ×4 (01:37→19:55)
[2019-01-02] MEDS: ALBUTEROL FS 2.5 MG/0.5 ML VIAL.NEB NEB SCH ×4 (01:37→19:55)
[2019-01-02 06:12] VITALS: BP 143/64
[2019-01-02 07:35] VITALS: BP 113/33
[2019-01-02 07:58] LABS: CALCIUM, SERUM 7.4 mg/dL (8.5-10.1); CREATININE 2.3 mg/dL (0.6-1.3); MAGNESIUM 1.9 mg/dL (1.8-2.4); PHOSPHORUS 2.8 mg/dL (2.5-4.9); POTASSIUM 3.6 mmol/L (3.5-5.1)
[2019-01-02] MEDS: ACETYLCYSTEINE 20% SOLN 800 MG/4 ML VIAL NEB SCH ×2 (08:00→16:16)
[2019-01-02] MEDS: HYDROGEL DRESSING 90 GM TUBE TP SCH ×2 (09:00→21:10)
[2019-01-02] MEDS: TRIAMCINOLONE ACETONIDE 0.1% CR 15 GM TUBE TP SCH ×2 (09:00→21:10)
[2019-01-02] MEDS: CLOTRIMAZOLE 1% 15 GM TUBE TP SCH ×2 (09:00→21:11)
[2019-01-02] MEDS: DAKINS QUARTER STRENGTH (0.125%) 480 ML BOTTLE TOP SCH ×2 (09:00→21:10)
[2019-01-02] MEDS: HYDROGEN PEROXIDE 480 ML BOTTLE TP SCH ×2 (09:00→21:11)
[2019-01-02] MEDS: POVIDONE-IODINE OINT 28.4 GM TUBE TP SCH ×4 (09:00→21:10)
[2019-01-02] MEDS: Z GUARD REMEDY 2 OZ OINT TP SCH ×2 (09:00→21:11)
[2019-01-02] MEDS: INSULIN GLARGINE, 100 UNIT/ML CARTRIDGE SQ SCH ×2 (09:00→21:10)
[2019-01-02] MEDS: NEXIUM 40 MG VIAL IV SCH ×3 (09:00→21:38)
[2019-01-02] MEDS: MIDODRINE HCL (5MG) 5 MG TABLET NG SCH (09:00)
[2019-01-02] MEDS: BETADINE 5% TP SCH ×4 (09:00→21:11)
[2019-01-02] MEDS ORDERED: TPN BAG #30 IV PRN ×8 (11:30)
--- NOTE | 2019-01-02 11:30 | NUR ---
TPN rate increased to 50 ml/hr (bag # 29) per Carlos (Pharmacist) ordered by Dr. Wall.
[2019-01-02 17:04] VITALS: BP 138/62
[2019-01-02 18:32] VITALS: BP 140/53
[2019-01-02 19:47] VITALS: BP 167/79
[2019-01-03] MEDS: BLOOD SUGAR DIAGNOSTIC 1 EACH STRIP IN SCH ×4 (00:08→18:54)
[2019-01-03] MEDS: INSULIN REGULAR, HUMAN 100 UNIT/ML 3 ML VIAL SQ PRN (00:10)
[2019-01-03] MEDS: IPRATROPIUM NEB FS 0.5 MG/2.5 ML AMPUL.NEB IH SCH ×4 (01:17→20:08)
[2019-01-03] MEDS: ALBUTEROL FS 2.5 MG/0.5 ML VIAL.NEB NEB SCH ×4 (01:17→20:08)
--- NOTE | 2019-01-03 02:21 | NUR ---
RT NOTES TRACH TUBE IN PLACE, PATENT, AND SECURED WITH TRACH TIE. ALARMS ON AND AUDIBLE. VENT PLUGGED IN TO RED OUTLET. AMBU BAG AND BACK UP TRACH BY THE BEDSIDE. SX MODERATE THICK PALE YELLOW SECRETIONS. NO RESP DISTRESS AT THIS TIME. Addendum: 01/03/19 at 0222 by THIERRY MEZA RT Amended: Links added.
[2019-01-03 03:18] VITALS: BP 149/58
[2019-01-03 06:07] VITALS: BP 144/58
[2019-01-03 07:40] LABS: CALCIUM, SERUM 7.6 mg/dL (8.5-10.1); CREATININE 2.9 mg/dL (0.6-1.3); MAGNESIUM 1.9 mg/dL (1.8-2.4); PHOSPHORUS 3.6 mg/dL (2.5-4.9); POTASSIUM 3.2 mmol/L (3.5-5.1)
[2019-01-03] MEDS: HYDROGEN PEROXIDE 480 ML BOTTLE TP SCH ×2 (07:54→21:00)
[2019-01-03 08:04] VITALS: BP 120/55
[2019-01-03] MEDS: TRIAMCINOLONE ACETONIDE 0.1% CR 15 GM TUBE TP SCH ×2 (09:00→21:52)
[2019-01-03] MEDS: BETADINE 5% TP SCH ×4 (09:00→21:53)
[2019-01-03] MEDS: Z GUARD REMEDY 2 OZ OINT TP SCH ×2 (09:00→21:55)
[2019-01-03] MEDS: NEOMY SULF/BACITRAC ZN/POLY 15 GM TUBE TP SCH ×2 (09:00→21:55)
[2019-01-03] MEDS: INSULIN GLARGINE, 100 UNIT/ML CARTRIDGE SQ SCH ×2 (09:00→21:00)
[2019-01-03] MEDS: CLOTRIMAZOLE 1% 15 GM TUBE TP SCH ×2 (09:00→21:55)
[2019-01-03] MEDS: DAKINS QUARTER STRENGTH (0.125%) 480 ML BOTTLE TOP SCH ×2 (09:00→21:52)
[2019-01-03] MEDS: HYDROGEL DRESSING 90 GM TUBE TP SCH ×2 (09:00→21:52)
[2019-01-03] MEDS: POVIDONE-IODINE OINT 28.4 GM TUBE TP SCH ×4 (09:00→21:52)
[2019-01-03] MEDS: MIDODRINE HCL (5MG) 5 MG TABLET NG SCH (09:00)
[2019-01-03] MEDS: NEXIUM 40 MG VIAL IV SCH ×2 (10:30→21:49)
[2019-01-03 12:00] VITALS: BP 120/55
[2019-01-03] MEDS: ACETYLCYSTEINE 20% SOLN 800 MG/4 ML VIAL NEB SCH (13:30)
--- NOTE | 2019-01-03 14:03 | NUR ---
RT NOTE: RECEIVED PT ON ORDERED NOTED VENT SETTINGS. NO RESPIRATORY DISTRESS NOTED. TRACH CHECKED SECURE AND PATENT. SXD AND LAVAGED PT Q ROUND AND NEEDED. TXS GIVEN ORDERED WITH NO ADVERSE REACTIONS NOTED. TRACH CARE DONE. SPARE TRACH AND AMBU BAG @ BEDSIDE. WILL CONTINUE TO MONITOR. VENT PLUGGED INTO RED OUTLET.
[2019-01-03] MEDS ORDERED: TPN BAG #31 IV PRN ×8 (15:30)
[2019-01-03] MEDS: POTASSIUM CL. PREMIX PERIPHER. 50 ML IV SCH ×2 (16:00→17:00)
[2019-01-03 18:00] VITALS: BP 120/55
[2019-01-03 19:44] VITALS: BP 128/55
[2019-01-04] VITALS: BP 128/55
[2019-01-04] MEDS: BLOOD SUGAR DIAGNOSTIC 1 EACH STRIP IN SCH ×4 (00:41→17:31)
[2019-01-04] MEDS: INSULIN REGULAR, HUMAN 100 UNIT/ML 3 ML VIAL SQ PRN ×3 (00:58→17:34)
[2019-01-04] MEDS: ALBUTEROL FS 2.5 MG/0.5 ML VIAL.NEB NEB SCH ×4 (01:30→20:04)
[2019-01-04] MEDS: IPRATROPIUM NEB FS 0.5 MG/2.5 ML AMPUL.NEB IH SCH ×4 (01:30→20:03)
[2019-01-04 06:42] VITALS: BP 127/59
[2019-01-04 07:03] LABS: CALCIUM, SERUM 7.3 mg/dL (8.5-10.1); CREATININE 3.4 mg/dL (0.6-1.3); MAGNESIUM 2.1 mg/dL (1.8-2.4); POTASSIUM 3.8 mmol/L (3.5-5.1)
[2019-01-04] MEDS: ACETYLCYSTEINE 20% SOLN 800 MG/4 ML VIAL NEB SCH ×2 (08:14→16:30)
[2019-01-04] MEDS: Z GUARD REMEDY 2 OZ OINT TP SCH ×2 (09:00→21:10)
[2019-01-04] MEDS: INSULIN GLARGINE, 100 UNIT/ML CARTRIDGE SQ SCH ×2 (09:00→21:09)
[2019-01-04] MEDS: MIDODRINE HCL (5MG) 5 MG TABLET NG SCH (09:00)
[2019-01-04] MEDS: BETADINE 5% TP SCH ×4 (09:00→21:09)
[2019-01-04] MEDS: NEXIUM 40 MG VIAL IV SCH ×2 (09:00→21:00)
[2019-01-04] MEDS: HYDROGEL DRESSING 90 GM TUBE TP SCH ×2 (09:00→21:09)
[2019-01-04] MEDS: POVIDONE-IODINE OINT 28.4 GM TUBE TP SCH ×4 (09:00→21:09)
[2019-01-04] MEDS: DAKINS QUARTER STRENGTH (0.125%) 480 ML BOTTLE TOP SCH ×2 (09:00→21:09)
[2019-01-04] MEDS: CLOTRIMAZOLE 1% 15 GM TUBE TP SCH ×2 (09:00→21:10)
[2019-01-04] MEDS: TRIAMCINOLONE ACETONIDE 0.1% CR 15 GM TUBE TP SCH ×2 (09:00→21:09)
[2019-01-04] MEDS: NEOMY SULF/BACITRAC ZN/POLY 15 GM TUBE TP SCH ×2 (09:00→21:10)
[2019-01-04] MEDS: HYDROGEN PEROXIDE 480 ML BOTTLE TP SCH ×2 (09:00→21:09)
[2019-01-04] MEDS ORDERED: TPN IV PRN ×5 (11:00)
[2019-01-04] MEDS ORDERED: TPN BAG #33 IV PRN ×6 (16:00)
[2019-01-04 16:48] VITALS: BP 130/63
[2019-01-04 18:46] VITALS: BP 150/76
[2019-01-04 20:26] VITALS: BP 147/74
[2019-01-05 00:17] VITALS: BP 144/64
[2019-01-05] MEDS: BLOOD SUGAR DIAGNOSTIC 1 EACH STRIP IN SCH ×4 (00:21→18:31)
[2019-01-05] MEDS: INSULIN REGULAR, HUMAN 100 UNIT/ML 3 ML VIAL SQ PRN ×4 (00:23→18:34)
[2019-01-05] MEDS: ALBUTEROL FS 2.5 MG/0.5 ML VIAL.NEB NEB SCH ×4 (00:58→20:09)
[2019-01-05] MEDS: IPRATROPIUM NEB FS 0.5 MG/2.5 ML AMPUL.NEB IH SCH ×4 (00:58→20:09)
[2019-01-05 06:08] VITALS: BP 148/72
[2019-01-05 07:51] VITALS: BP 152/69
[2019-01-05] MEDS: ACETYLCYSTEINE 20% SOLN 800 MG/4 ML VIAL NEB SCH ×2 (08:09→17:37)
[2019-01-05 08:50] LABS: CALCIUM, SERUM 7.6 mg/dL (8.5-10.1); CREATININE 2.5 mg/dL (0.6-1.3); MAGNESIUM 1.8 mg/dL (1.8-2.4); PHOSPHORUS 2.1 mg/dL (2.5-4.9); POTASSIUM 3.3 mmol/L (3.5-5.1)
[2019-01-05] MEDS: INSULIN GLARGINE, 100 UNIT/ML CARTRIDGE SQ SCH ×2 (09:00→21:52)
[2019-01-05] MEDS: MIDODRINE HCL (5MG) 5 MG TABLET NG SCH (09:00)
[2019-01-05] MEDS: HYDROGEN PEROXIDE 480 ML BOTTLE TP SCH ×2 (09:00→20:09)
[2019-01-05] MEDS: NEXIUM 40 MG VIAL IV SCH ×2 (09:36→21:00)
[2019-01-05 12:00] VITALS: BP 136/60
[2019-01-05] MEDS: TRIAMCINOLONE ACETONIDE 0.1% CR 15 GM TUBE TP SCH ×2 (15:00→21:53)
[2019-01-05] MEDS: NEOMY SULF/BACITRAC ZN/POLY 15 GM TUBE TP SCH ×2 (15:00→21:53)
[2019-01-05] MEDS: HYDROGEL DRESSING 90 GM TUBE TP SCH ×2 (15:00→21:53)
[2019-01-05] MEDS: CLOTRIMAZOLE 1% 15 GM TUBE TP SCH ×2 (15:00→21:53)
[2019-01-05] MEDS: Z GUARD REMEDY 2 OZ OINT TP SCH ×2 (15:00→21:53)
[2019-01-05] MEDS: DAKINS QUARTER STRENGTH (0.125%) 480 ML BOTTLE TOP SCH ×2 (15:00→21:53)
[2019-01-05] MEDS: BETADINE 5% TP SCH ×4 (15:00→21:53)
[2019-01-05] MEDS: POVIDONE-IODINE OINT 28.4 GM TUBE TP SCH ×4 (15:00→21:53)
[2019-01-05] MEDS: POTASSIUM CL. PREMIX PERIPHER. 50 ML IV SCH ×2 (16:19→17:34)
[2019-01-05 18:30] VITALS: BP 134/50
[2019-01-05 19:50] VITALS: BP 90/48
[2019-01-05] MEDS ORDERED: TPN BAG #34 IV PRN ×6 (22:00)
[2019-01-06] VITALS (7 sets, daily range): BP systolic 96–150; BP diastolic 45–72
[2019-01-06] MEDS: BLOOD SUGAR DIAGNOSTIC 1 EACH STRIP IN SCH ×5 (00:47→23:24)
[2019-01-06] MEDS: INSULIN REGULAR, HUMAN 100 UNIT/ML 3 ML VIAL SQ PRN ×4 (00:49→23:25)
[2019-01-06] MEDS: ALBUTEROL FS 2.5 MG/0.5 ML VIAL.NEB NEB SCH ×4 (01:12→19:58)
[2019-01-06] MEDS: IPRATROPIUM NEB FS 0.5 MG/2.5 ML AMPUL.NEB IH SCH ×4 (01:12→19:58)
--- NOTE | 2019-01-06 06:22 | NUR ---
Pt on TPN 65ml/hr tolerating well.Right femoral line dressing changed.BP stable,no distress.
[2019-01-06 08:08] LABS: CALCIUM, SERUM 7.7 mg/dL (8.5-10.1); CREATININE 3.2 mg/dL (0.6-1.3); MAGNESIUM 1.7 mg/dL (1.8-2.4); PHOSPHORUS 1.5 mg/dL (2.5-4.9); POTASSIUM 3.2 mmol/L (3.5-5.1)
[2019-01-06] MEDS: INSULIN GLARGINE, 100 UNIT/ML CARTRIDGE SQ SCH ×2 (08:51→20:39)
[2019-01-06] MEDS: MIDODRINE HCL (5MG) 5 MG TABLET NG SCH (08:51)
[2019-01-06] MEDS: HYDROGEN PEROXIDE 480 ML BOTTLE TP SCH ×2 (09:00→20:40)
[2019-01-06] MEDS: NEXIUM 40 MG VIAL IV SCH ×2 (09:00→20:00)
[2019-01-06] MEDS: ACETYLCYSTEINE 20% SOLN 800 MG/4 ML VIAL NEB SCH ×2 (09:00→16:22)
[2019-01-06] MEDS: CLOTRIMAZOLE 1% 15 GM TUBE TP SCH ×2 (10:20→20:40)
[2019-01-06] MEDS: BETADINE 5% TP SCH ×4 (10:20→20:40)
[2019-01-06] MEDS: POVIDONE-IODINE OINT 28.4 GM TUBE TP SCH ×4 (10:20→20:39)
[2019-01-06] MEDS: HYDROGEL DRESSING 90 GM TUBE TP SCH ×2 (10:20→20:39)
[2019-01-06] MEDS: TRIAMCINOLONE ACETONIDE 0.1% CR 15 GM TUBE TP SCH ×2 (10:20→20:39)
[2019-01-06] MEDS: NEOMY SULF/BACITRAC ZN/POLY 15 GM TUBE TP SCH ×2 (10:20→20:40)
[2019-01-06] MEDS: Z GUARD REMEDY 2 OZ OINT TP SCH ×2 (10:20→20:40)
[2019-01-06] MEDS: DAKINS QUARTER STRENGTH (0.125%) 480 ML BOTTLE TOP SCH ×2 (10:20→20:39)
--- NOTE | 2019-01-06 10:35 | NUR ---
Resident picked up by [facility] via gurney for hemodialysis treatment, accompanied by 2 EMT's and 1 RT. RFA AV shunt intact, no bleeding noted. Positive for thrill and bruit. No respiratory distress noted. Resident left the building in stable condition.
--- NOTE | 2019-01-06 12:40 | NUR ---
DR MOCK NOTIFIED REGARDING PATIENT'S POTASSIUM LEVEL OF 3.2, AWAITING FOR ORDERS.
--- NOTE | 2019-01-06 13:00 | NUR ---
ORDERED KCL 10MEQ IV X2 AT 50ML/HR FOR HYPOKALEMIA
[2019-01-06] MEDS ORDERED: POTASSIUM PHOSPHATE MM 7.5 MMOL in IV D5W 100 ML IV SCH (14:30)
[2019-01-06] MEDS ORDERED: POTASSIUM CL. PREMIX PERIPHER. 50 ML IV SCH (14:30)
[2019-01-06] MEDS ORDERED: TPN BAG #35 IV PRN ×8 (15:00)
[2019-01-07 00:48] VITALS: BP 117/55
[2019-01-07] MEDS: IPRATROPIUM NEB FS 0.5 MG/2.5 ML AMPUL.NEB IH SCH ×4 (02:04→20:01)
[2019-01-07] MEDS: ALBUTEROL FS 2.5 MG/0.5 ML VIAL.NEB NEB SCH ×4 (02:04→20:01)
[2019-01-07] MEDS: BLOOD SUGAR DIAGNOSTIC 1 EACH STRIP IN SCH ×3 (05:32→17:46)
[2019-01-07] MEDS: INSULIN REGULAR, HUMAN 100 UNIT/ML 3 ML VIAL SQ PRN ×3 (05:33→17:47)
[2019-01-07 06:48] VITALS: BP 99/51
[2019-01-07] MEDS ORDERED: TPN BAG #36 IV PRN ×6 (07:00)
[2019-01-07] MEDS: HYDROGEN PEROXIDE 480 ML BOTTLE TP SCH ×2 (07:52→20:01)
[2019-01-07] MEDS: ACETYLCYSTEINE 20% SOLN 800 MG/4 ML VIAL NEB SCH ×2 (07:52→20:01)
[2019-01-07 08:22] LABS: CALCIUM, SERUM 7.8 mg/dL (8.5-10.1); CREATININE 2.4 mg/dL (0.6-1.3); MAGNESIUM 1.9 mg/dL (1.8-2.4); POTASSIUM 3.8 mmol/L (3.5-5.1)
[2019-01-07 08:28] VITALS: BP 113/64
[2019-01-07] MEDS: NEXIUM 40 MG VIAL IV SCH ×2 (09:00→21:02)
[2019-01-07] MEDS: CLOTRIMAZOLE 1% 15 GM TUBE TP SCH ×2 (09:00→20:34)
[2019-01-07] MEDS: NEOMY SULF/BACITRAC ZN/POLY 15 GM TUBE TP SCH ×2 (09:00→20:34)
[2019-01-07] MEDS: BETADINE 5% TP SCH ×4 (09:00→20:34)
[2019-01-07] MEDS: POVIDONE-IODINE OINT 28.4 GM TUBE TP SCH ×4 (09:00→20:33)
[2019-01-07] MEDS: TRIAMCINOLONE ACETONIDE 0.1% CR 15 GM TUBE TP SCH ×2 (09:00→20:33)
[2019-01-07] MEDS: DAKINS QUARTER STRENGTH (0.125%) 480 ML BOTTLE TOP SCH ×2 (09:00→20:32)
[2019-01-07] MEDS: HYDROGEL DRESSING 90 GM TUBE TP SCH ×2 (09:00→20:34)
[2019-01-07] MEDS: Z GUARD REMEDY 2 OZ OINT TP SCH ×2 (09:00→20:34)
[2019-01-07] MEDS: MIDODRINE HCL (5MG) 5 MG TABLET NG SCH (09:47)
[2019-01-07] MEDS: INSULIN GLARGINE, 100 UNIT/ML CARTRIDGE SQ SCH ×2 (09:55→20:32)
--- NOTE | 2019-01-07 10:53 | NUR ---
Referred abdominal wound to Dr. Chacon, due to increased discharge coming out from the wound itself, greenish in color. Patient's NGT connected to wall suction with same greenish drainage. Per MD he will come to see the patient today.
[2019-01-07] MEDS ORDERED: POTASSIUM PHOSPHATE MM 7.5 MMOL in IV D5W 100 ML IV SCH (11:00)
[2019-01-07 12:00] VITALS: BP 110/47
[2019-01-07] MEDS ORDERED: TPN BAG #37 IV PRN ×8 (12:00)
[2019-01-07] MEDS ORDERED: FAT EMULSION 20% 500 ML in PREMIX 1 EA IV SCH (17:00)
[2019-01-07 18:43] VITALS: BP 134/67
[2019-01-07 20:13] VITALS: BP 149/68
[2019-01-08] VITALS (7 sets, daily range): BP systolic 94–131; BP diastolic 49–80
[2019-01-08] MEDS: BLOOD SUGAR DIAGNOSTIC 1 EACH STRIP IN SCH ×5 (00:41→23:18)
[2019-01-08] MEDS: INSULIN REGULAR, HUMAN 100 UNIT/ML 3 ML VIAL SQ PRN ×4 (00:42→23:20)
[2019-01-08] MEDS: IPRATROPIUM NEB FS 0.5 MG/2.5 ML AMPUL.NEB IH SCH ×4 (01:40→19:19)
[2019-01-08] MEDS: ALBUTEROL FS 2.5 MG/0.5 ML VIAL.NEB NEB SCH ×4 (01:40→19:19)
--- NOTE | 2019-01-08 03:48 | NUR ---
RT NOTE: RECEIVED PT ON ORDERED NOTED VENT SETTINGS. NO RESPIRATORY DISTRESS NOTED. TRACH CHECKED SECURE AND PATENT. SXD AND LAVAGED PT Q ROUND AND NEEDED. TXS GIVEN ORDERED WITH NO ADVERSE REACTIONS NOTED. TRACH CARE DONE. SPARE TRACH AND AMBU BAG @ BEDSIDE. VENT PLUGGED INTO RED OUTLET.
[2019-01-08 08:30] LABS: CALCIUM, SERUM 7.6 mg/dL (8.5-10.1); CREATININE 3.1 mg/dL (0.6-1.3); MAGNESIUM 1.7 mg/dL (1.8-2.4); PHOSPHORUS 1.9 mg/dL (2.5-4.9); POTASSIUM 3.5 mmol/L (3.5-5.1)
[2019-01-08] MEDS: MIDODRINE HCL (5MG) 5 MG TABLET NG SCH (08:50)
[2019-01-08] MEDS: INSULIN GLARGINE, 100 UNIT/ML CARTRIDGE SQ SCH ×2 (08:51→21:25)
[2019-01-08] MEDS: HYDROGEN PEROXIDE 480 ML BOTTLE TP SCH ×2 (09:00→21:00)
[2019-01-08] MEDS: NEXIUM 40 MG VIAL IV SCH ×2 (09:00→21:00)
[2019-01-08] MEDS: ACETYLCYSTEINE 20% SOLN 800 MG/4 ML VIAL NEB SCH (09:00)
--- NOTE | 2019-01-08 11:00 | NUR ---
Received a call from dialysis center c/o Kristina, said that patient's B/P is on the low 80's. She said that they will retake her B/P and will call back if they need to send patient out.
[2019-01-08] MEDS ORDERED: TPN BAG #38 IV PRN ×6 (12:00)
--- NOTE | 2019-01-08 12:06 | NUR ---
Dr. Terrie Olivo came by, patient at the dialysis center hoever she was made aware that a call was received from dialytsis center saying patient's B/P is on the low 80's however dialysis center decided to dialyzed the patient because her B/P went up. Dr. Terrie Olivo said that when she returns, to give 500cc NS bolus if SBP is less than 100. Dr. Terrie Olivo also made aware that patient's abdominal wound has moderate amount of discharge coming from the wound base when she exerts effort i.e. coughing. This was referred to GI, waiting for him to see patient.
[2019-01-08] MEDS ORDERED: POTASSIUM PHOSPHATE MM 7.5 MMOL in IV D5W 100 ML IV SCH (15:00)
--- NOTE | 2019-01-08 15:05 | NUR ---
Requested to page Dr. Terrie Olivo to inform her of Hbg result sent by [facility] through their communication. This result was collected on 01/06/19 (Hbg 6.3), Dr. Terrie Olivo ordered to get another CBC today.
[2019-01-08] MEDS: TRIAMCINOLONE ACETONIDE 0.1% CR 15 GM TUBE TP SCH ×2 (15:30→21:57)
[2019-01-08] MEDS: BETADINE 5% TP SCH ×4 (15:30→21:58)
[2019-01-08] MEDS: POVIDONE-IODINE OINT 28.4 GM TUBE TP SCH ×4 (15:30→21:57)
[2019-01-08] MEDS: DAKINS QUARTER STRENGTH (0.125%) 480 ML BOTTLE TOP SCH ×2 (15:30→21:57)
[2019-01-08] MEDS: Z GUARD REMEDY 2 OZ OINT TP SCH ×2 (15:30→21:58)
[2019-01-08] MEDS: NEOMY SULF/BACITRAC ZN/POLY 15 GM TUBE TP SCH ×2 (15:30→21:58)
[2019-01-08] MEDS: CLOTRIMAZOLE 1% 15 GM TUBE TP SCH ×2 (15:30→21:58)
[2019-01-08] MEDS: HYDROGEL DRESSING 90 GM TUBE TP SCH ×2 (15:30→21:58)
[2019-01-08 15:38] LABS: BASOPHILS # (AUTO) 0.1 /CMM (0.0-0.2); BASOPHILS % (AUTO) 0.3 % (0.0-2.0); EOSINOPHILS % (AUTO) 1.7 % (0.0-6.0); HEMATOCRIT 25 % (33-45); HEMOGLOBIN 7.7 g/dL (11.5-14.8); LYMPHOCYTES # (AUTO) 1.1 /CMM (0.8-4.8); LYMPHOCYTES % (AUTO) 4.9 % (20.0-44.0); MEAN CORPUSCULAR HGB CONC 30 g/dl (31.0-36.0); MEAN CORPUSCULAR VOLUME 86 fL (82-100); MONOCYTES % (AUTO) 4.3 % (2.0-12.0); NEUTROPHILS # (AUTO) 20.4 /CMM (1.8-8.9); NEUTROPHILS % (AUTO) 88.8 % (43.0-81.0); PLATELET COUNT (AUTO) 119 /CMM (150-450); RED BLOOD CELL COUNT(AUTO) 2.96 MIL/uL (4.0-5.2)
--- NOTE | 2019-01-08 17:00 | NUR ---
Notified REFERENCE TEST CLERK Gurvinder, of WBC 23.0. Reviewed labs and seen condition of abdominal wound. New order given to start IV ATB. Orders faxed to [facility] and [facility] pharmacy. Spoke with Hossein from [facility] and said that she will run it in the system to find out if covered by patient's insurance.
[2019-01-08] MEDS ORDERED: TPN BAG #39 IV PRN ×8 (18:00)
--- NOTE | 2019-01-08 18:40 | NUR ---
Obtain an order from [facility] and said that Vancomycin is covered by patient's insurance but not IV Diflucan and Zosyn. Resident's responsible republican, John notified of new order.
[2019-01-08] MEDS: PIPERACILLIN /TAZOBACTAM 2.25 G in IV D5W 50 ML IV SCH (21:00)
[2019-01-08] MEDS ORDERED: VANCOMYCIN 500 MG in IV D5W 100ml IV SCH (21:00)
[2019-01-08] MEDS: FLUCONAZOLE IN NS,PREMIX 100 MG in PREMIX 1 EA IV SCH ×2 (23:00)
[2019-01-09 00:02] VITALS: BP 92/56
[2019-01-09] MEDS: ALBUTEROL FS 2.5 MG/0.5 ML VIAL.NEB NEB SCH ×4 (01:30→20:28)
[2019-01-09] MEDS: IPRATROPIUM NEB FS 0.5 MG/2.5 ML AMPUL.NEB IH SCH ×4 (01:30→20:28)
[2019-01-09] MEDS: PIPERACILLIN /TAZOBACTAM 2.25 G in IV D5W 50 ML IV SCH ×3 (05:46→21:00)
[2019-01-09] MEDS: BLOOD SUGAR DIAGNOSTIC 1 EACH STRIP IN SCH ×3 (05:59→17:12)
[2019-01-09] MEDS: INSULIN REGULAR, HUMAN 100 UNIT/ML 3 ML VIAL SQ PRN ×3 (06:02→17:14)
[2019-01-09 06:19] VITALS: BP 111/76
[2019-01-09 07:52] VITALS: BP 123/59
[2019-01-09 08:15] LABS: CALCIUM, SERUM 7.9 mg/dL (8.5-10.1); CREATININE 2.2 mg/dL (0.6-1.3); MAGNESIUM 1.8 mg/dL (1.8-2.4); PHOSPHORUS 1.9 mg/dL (2.5-4.9); POTASSIUM 3.6 mmol/L (3.5-5.1)
[2019-01-09] MEDS: HYDROGEN PEROXIDE 480 ML BOTTLE TP SCH ×2 (08:43→21:15)
[2019-01-09] MEDS: CLOTRIMAZOLE 1% 15 GM TUBE TP SCH ×2 (08:56→21:15)
[2019-01-09] MEDS: Z GUARD REMEDY 2 OZ OINT TP SCH ×2 (08:56→21:15)
[2019-01-09] MEDS: HYDROGEL DRESSING 90 GM TUBE TP SCH ×2 (08:56→21:15)
[2019-01-09] MEDS: BETADINE 5% TP SCH ×4 (08:56→21:15)
[2019-01-09] MEDS: NEOMY SULF/BACITRAC ZN/POLY 15 GM TUBE TP SCH ×2 (08:56→21:15)
[2019-01-09] MEDS: TRIAMCINOLONE ACETONIDE 0.1% CR 15 GM TUBE TP SCH ×2 (08:57→21:15)
[2019-01-09] MEDS: DAKINS QUARTER STRENGTH (0.125%) 480 ML BOTTLE TOP SCH ×2 (08:57→21:14)
[2019-01-09] MEDS: POVIDONE-IODINE OINT 28.4 GM TUBE TP SCH ×4 (08:57→21:15)
[2019-01-09] MEDS: NEXIUM 40 MG VIAL IV SCH ×2 (09:00→21:00)
[2019-01-09] MEDS: INSULIN GLARGINE, 100 UNIT/ML CARTRIDGE SQ SCH ×2 (09:01→21:14)
[2019-01-09] MEDS: MIDODRINE HCL (5MG) 5 MG TABLET NG SCH (09:03)
[2019-01-09] MEDS ORDERED: POTASSIUM PHOSPHATE MM 7.5 MMOL in IV D5W 100 ML IV SCH (10:00)
[2019-01-09 12:00] VITALS: BP 123/59
--- NOTE | 2019-01-09 12:30 | NUR ---
Notified THOMAS Ramsay that preliminary blood culture result shows gram negative rods. Also notified her that blood was not collected from pt's femoral line since night charge nurse could not obtain blood from the line.
--- NOTE | 2019-01-09 13:18 | NUR ---
THOMAS Ramsay ordered to DC existing right femoral line and place a new central line. She also ordered to culture femoral catheter tip. Addendum: 01/09/19 at 1321 by GEORGE CLEARY RN Informed nursing insurance claims supervisor
--- NOTE | 2019-01-09 14:20 | NUR ---
Femoral catheter was DC'd with catheter tip intact. No bleeding was noted. Dry dressing applied to the site. Catheter tip was sent to lab for culture as ordered by THOMAS Ramsay.
--- NOTE | 2019-01-09 15:00 | NUR ---
Seen by SACK FILLER Hellen Leija. Relayed CXR result to her. Pt already on Zosyn, Vancomycin, and Diflucan. No new order.
--- NOTE | 2019-01-09 15:35 | NUR ---
PICC line nurse Endy placed a new triple lumen femoral catheter. Pt tolerated procedure well. Pt's boyfriend John Huangs aware of positive blood culture and need for new central line.
--- NOTE | 2019-01-09 15:41 | NUR ---
CENTRAL VENOUS CATHETER INSERTION Meeting Facilitator: [facility] NP Patient assessed for CVC insertion, order in the chart and consent signed. Right groin ultrasound performed to identify adequate femoral vein, vein is patent and compressible. Right groin prepped in normal sterile fashion with CHG and allowed to dry. Ultrasound used to visualize the previously identified right femoral vein. Lidocaine 1% used to anesthetize the insertion site. Using ultrasound, introducer needle inserted into vein using Seldinger's technique. Good dark non pulsatile venous blood flow noted. Guidewire placed without difficulty. Small 2mm laceration made at insertion site. Dilator was inserted over the wire without difficulty then removed. 7F triple lumen cvc inserted fully without difficulty over the guidewire. Guidewire removed. Each port aspirated easily and flushed with 10ml sterile saline without difficulty using a push pause technique. CVC line secured with two sutures, biopatch placed and Tegaderm secured to patient. Blood loss approximately 3ml. Patient tolerated procedure well with complications. Reported to RN.
[2019-01-09 18:00] VITALS: BP 123/59
[2019-01-09 19:55] VITALS: BP 117/80
[2019-01-09] MEDS: FLUCONAZOLE IN NS,PREMIX 100 MG in PREMIX 1 EA IV SCH ×2 (23:00)
[2019-01-10] VITALS: BP 105/60
[2019-01-10] MEDS: IPRATROPIUM NEB FS 0.5 MG/2.5 ML AMPUL.NEB IH SCH ×3 (00:17→13:30)
[2019-01-10] MEDS: ALBUTEROL FS 2.5 MG/0.5 ML VIAL.NEB NEB SCH ×3 (00:17→13:30)
[2019-01-10] MEDS: BLOOD SUGAR DIAGNOSTIC 1 EACH STRIP IN SCH ×3 (00:36→12:09)
[2019-01-10] MEDS: INSULIN REGULAR, HUMAN 100 UNIT/ML 3 ML VIAL SQ PRN ×3 (00:39→12:10)
[2019-01-10] MEDS: PIPERACILLIN /TAZOBACTAM 2.25 G in IV D5W 50 ML IV SCH ×2 (05:00→12:50)
[2019-01-10 06:00] VITALS: BP 113/62
[2019-01-10 07:07] LABS: CALCIUM, SERUM 7.6 mg/dL (8.5-10.1); CREATININE 2.7 mg/dL (0.6-1.3); MAGNESIUM 1.8 mg/dL (1.8-2.4); POTASSIUM 3.6 mmol/L (3.5-5.1)
[2019-01-10 07:39] VITALS: BP 107/69
[2019-01-10] MEDS: HYDROGEN PEROXIDE 480 ML BOTTLE TP SCH (08:01)
[2019-01-10] MEDS: Z GUARD REMEDY 2 OZ OINT TP SCH (09:00)
[2019-01-10] MEDS: TRIAMCINOLONE ACETONIDE 0.1% CR 15 GM TUBE TP SCH (09:00)
[2019-01-10] MEDS: POVIDONE-IODINE OINT 28.4 GM TUBE TP SCH ×2 (09:00)
[2019-01-10] MEDS: MIDODRINE HCL (5MG) 5 MG TABLET NG SCH (09:00)
[2019-01-10] MEDS: CLOTRIMAZOLE 1% 15 GM TUBE TP SCH (09:00)
[2019-01-10] MEDS: NEOMY SULF/BACITRAC ZN/POLY 15 GM TUBE TP SCH (09:00)
[2019-01-10] MEDS: DAKINS QUARTER STRENGTH (0.125%) 480 ML BOTTLE TOP SCH (09:00)
[2019-01-10] MEDS: BETADINE 5% TP SCH ×2 (09:00)
[2019-01-10] MEDS: HYDROGEL DRESSING 90 GM TUBE TP SCH (09:00)
--- NOTE | 2019-01-10 09:20 | NUR ---
Received order to give Potassium Phosphate 15 mmol IV for hypophosphatemia.
[2019-01-10] MEDS ORDERED: TPN BAG #40 IV PRN ×6 (09:30)
[2019-01-10] MEDS ORDERED: Potassium Phosphate meq 11 MEQ in IV D5W 100 ML IV SCH (09:30)
[2019-01-10] MEDS: INSULIN GLARGINE, 100 UNIT/ML CARTRIDGE SQ SCH (09:39)
[2019-01-10] MEDS: NEXIUM 40 MG VIAL IV SCH (09:50)
[2019-01-10] MEDS ORDERED: POTASSIUM PHOSPHATE MM 15 MMOL in IV D5W 250 ML IV SCH (10:00)
--- NOTE | 2019-01-10 10:15 | NUR ---
Notified Dr Wall that pt's blood culture grew gram negative rods, femoral line was changed, and pt's BP 93/37 HR 75. Pt placed on Trendelenburg, Midodrine given. He came to see pt. He said he will review pt's chart. No new order at this time.
[2019-01-10 12:00] VITALS: BP 112/50
[2019-01-10 12:06] LABS: BASOPHILS % (AUTO) 0.3 % (0.0-2.0); EOSINOPHILS % (AUTO) 2.2 % (0.0-6.0); LYMPHOCYTES # (AUTO) 1.3 /CMM (0.8-4.8); LYMPHOCYTES % (AUTO) 9.8 % (20.0-44.0); MEAN CORPUSCULAR HGB CONC 30 g/dl (31.0-36.0); MEAN CORPUSCULAR VOLUME 84 fL (82-100); MONOCYTES # (AUTO) 0.6 /CMM (0.1-1.30); MONOCYTES % (AUTO) 4.5 % (2.0-12.0); NEUTROPHILS # (AUTO) 11.2 /CMM (1.8-8.9); NEUTROPHILS % (AUTO) 83.2 % (43.0-81.0); PLATELET COUNT (AUTO) 93 /CMM (150-450); RED BLOOD CELL COUNT(AUTO) 2.57 MIL/uL (4.0-5.2); WHITE BLOOD COUNT (AUTO) 13.5 K/uL (4.3-11.0)
[2019-01-10 12:18] LABS: HEMATOCRIT 22 % (33-45); HEMOGLOBIN 6.4 g/dL (11.5-14.8)
--- NOTE | 2019-01-10 12:35 | NUR ---
Relayed Hgb 6.[address] Wall. He ordered to transfer pt to ER to have the pt dialyzed today and be transfused with 1 unit of PRBC. BP 71/35 HR 75. Notified John.
[2019-01-10 12:38] LABS: LYMPHOCYTES % (MANUAL) 11 % (16-48); MONOCYTES % (MANUAL) 4 % (0-11.0); NEUTROPHILS % (MANUAL) 85 (42-76)
--- NOTE | 2019-01-10 13:15 | NUR ---
Transferred pt to ER, accompanied by RT Murray, CHERELLE Alcantara, and RN Flavia. TPN, Potassium Phosphate and Zosyn currently infusing and sent with pt. Also sent Lipids and IV antibiotics with pt. Report given to ER nurse.
[2019-01-10] MEDS ORDERED: PIPE2.257 IV (14:07)
[2019-01-10] MEDS ORDERED: FLUC100T8 IV (14:07)
[2019-01-10] MEDS ORDERED: FAT250EM13 IV (14:07)
[2019-01-10] MEDS ORDERED: ESOM40CA IV (14:07)
[2019-01-10] MEDS ORDERED: VANCO (14:07)
[2019-01-10] MEDS ORDERED: [UNRECOGNIZED DRUG - CODE] IV (14:07)
[2019-01-10] MEDS ORDERED: TPN ADD IV ×2 (14:14→14:59)
[2019-01-10] MEDS ORDERED: NEOM28.36 TP (14:59)
[2019-01-10] MEDS ORDERED: GEL100GE MC (14:59)
[2019-01-10] MEDS ORDERED: SODI480S2 MC (14:59)
[2019-01-10] MEDS ORDERED: CLOT15CR63 TP (14:59)
[2019-01-10] MEDS ORDERED: VANC1FRO2 IV (14:59)
[2019-01-10] MEDS ORDERED: POVI1MED TP (14:59)
[2019-01-10] MEDS ORDERED: TPN BAG #41 IV PRN ×8 (18:00)
--- NOTE | 2019-01-11 11:20 | NUR ---
LUPILLO was asked to inform [facility] and [facility] that patient has not yet returned to . LUPILLO contacted [facility] [phone] and spoke to Mary to inform them that the pt. will not be requiring dialysis treatment until further notice as patient was transferred to ER and will be receiving dialysis there. LUPILLO contacted [facility] [phone] and spoke to Onelia to inform them that the pt. will not be requiring transportation services to [facility] until further notice. Onelia expressed understanding and was agreeable to plan. Charge nurse was notified.
--- NOTE | 2019-01-11 16:13 | NUR ---
SW called patient�s responsible alliance party, boyfriend John Woodall [phone], to remind them that the family support group taking place 01/12/19 from 11 am-12 pm in the old admin conference room. Per John, he will not be able to make it as he works.
[2019-01-14] MEDS ORDERED: COLI150V12 IJ (07:24)
--- NOTE | 2019-01-14 14:47 | NUR ---
Per Sub-Acute Director, Maura the patient is scheduled to return to Sub-Acute today. LU[facility]LLO contacted [facility] [[address] [facility], [facility] [address]; [phone]] to set up continuation of dialysis treatment for patient. Per Mary at [facility], the patient's dialysis treatment to be continued starting 01/15/19 per usual time. LUPILLO contacted [facility] [phone] and spoke to Guillermina to set up ambulance transportation for resident from [facility] to Renal and back on , Sat per usual time. Per Guillermina, Caitlinpayton will continue transfer to renal starting tomorrow 01/15/19 at usual time. LUPILLO communicated update to nursing station and family John [phone]. John expressed understanding and was agreeable to plan.
--- NOTE | 2019-01-14 14:54 | NUR ---
LATE ENTRY: Received pt from BILL in stable conditon, trach patent and secure, vent plugged into red outlet. spare trach at bedside. no distress noted
--- NOTE | 2019-01-14 16:54 | NUR ---
Resident readmitted to [facility] subacute with the following diagnosis Hypotension, sepsis, abdominal wound, chronic respiratory failure, ESRD with HD, ventilator dependent, dysphagia, L BKA under the services of Dr. Enrique Castro. Resident eyes open but does not follow any command. Stable with current ventilator setting of AC 12, TV 500, Fi02 40% tolerating well. V/S within range, no SOB. Patient NPO, NGT in place connected to low intermittent suctioning noted with small amount of dark greenish drainage. Patient also receiving TPN and lipids. Body check done, with triple lumen in the R femoral, Dialysis access in the R FA, AV fistula positive for bruit and trill and negative any signs of bleeding. On contact isolation for VRE of the blood and ESBL of abdominal wound. Admission order verified with Dr. Wall, implementation analyst for Dr. Castro. Dialysis schedule and transportation confirmed by [facility] to [facility]. Attempted to notify family, but no response. Will inform John Woodall of readmission in AM.
[2019-01-14] MEDS: BLOOD SUGAR DIAGNOSTIC 1 EACH STRIP IN SCH ×2 (17:37→23:29)
[2019-01-14] MEDS: INSULIN REGULAR, HUMAN 100 UNIT/ML 3 ML VIAL SQ PRN ×2 (17:43→23:30)
[2019-01-14 18:52] VITALS: BP 144/71
[2019-01-14] MEDS ORDERED: TPN IV PRN ×14 (19:00)
[2019-01-14 19:36] VITALS: BP 155/84
[2019-01-14] MEDS: ALBUTEROL FS 2.5 MG/0.5 ML VIAL.NEB NEB SCH (19:37)
[2019-01-14] MEDS: IPRATROPIUM NEB FS 0.5 MG/2.5 ML AMPUL.NEB IH SCH (19:37)
[2019-01-14] MEDS ORDERED: DEXTROSE 50%-WATER 50 ML DISP.SYRIN IV PRN (20:30)
[2019-01-14] MEDS ORDERED: ACETAMINOPHEN SUP SA PATIENTS 650 MG SUPP RC PRN (21:00)
[2019-01-14] MEDS: COLISTIMETHATE SODIUM 100 MG in IV NS 0.9% 50 ML IV SCH (21:00)
[2019-01-14] MEDS: NEXIUM 40 MG VIAL IV SCH (21:00)
[2019-01-14] MEDS ORDERED: ACETAMINOPHEN 650 MG SUPP.RECT RC PRN (21:00)
[2019-01-14] MEDS ORDERED: HYDROGEN PEROXIDE 480 ML BOTTLE TP PRN (21:00)
[2019-01-14] MEDS: HYDROGEN PEROXIDE 480 ML BOTTLE TP SCH (21:09)
[2019-01-14] MEDS: FLUCONAZOLE (100 MG) 100 MG TABLET GT SCH (21:12)
[2019-01-14] MEDS: DAKINS QUARTER STRENGTH (0.125%) 480 ML BOTTLE TOP SCH (21:13)
[2019-01-14] MEDS: POVIDONE-IODINE OINT 28.4 GM TUBE TP SCH ×2 (21:13)
[2019-01-14] MEDS: CLOTRIMAZOLE 1% 15 GM TUBE TP SCH (21:13)
[2019-01-14] MEDS: HYDROGEL DRESSING 90 GM TUBE TP SCH (21:13)
[2019-01-14] MEDS: INSULIN GLARGINE, 100 UNIT/ML CARTRIDGE SQ SCH (21:13)
[2019-01-14] MEDS: TRIAMCINOLONE ACETONIDE 0.1% CR 15 GM TUBE TP SCH (21:13)
[2019-01-15] VITALS (7 sets, daily range): BP systolic 137–159; BP diastolic 68–81
[2019-01-15] MEDS: ALBUTEROL FS 2.5 MG/0.5 ML VIAL.NEB NEB SCH ×4 (01:42→20:02)
--- NOTE | 2019-01-15 02:57 | NUR ---
RT NOTES TRACH TUBE IN PLACE, PATENT, AND SECURED WITH TRACH TIE. ALARMS ON AND AUDIBLE. VENT PLUGGED INTO THE RED OUTLET. AMBU BAG AND BACK UP TRACH BY THE BEDSIDE. PT STABLE AND SHOWS NO SIGNS OF ANY DISTRESS AT THIS TIME. Addendum: 01/15/19 at 0258 by THIERRY MEZA RT Amended: Links added.
[2019-01-15] MEDS: BLOOD SUGAR DIAGNOSTIC 1 EACH STRIP IN SCH ×4 (05:57→23:14)
[2019-01-15] MEDS: INSULIN REGULAR, HUMAN 100 UNIT/ML 3 ML VIAL SQ PRN ×3 (05:57→23:15)
[2019-01-15] MEDS: MIDODRINE HCL (5MG) 5 MG TABLET GT SCH (09:00)
[2019-01-15] MEDS: NEXIUM 40 MG VIAL IV SCH ×2 (09:00→21:00)
[2019-01-15] MEDS: HYDROGEN PEROXIDE 480 ML BOTTLE TP SCH ×2 (09:42→20:01)
[2019-01-15 10:03] LABS: CALCIUM, SERUM 7.6 mg/dL (8.5-10.1); CREATININE 3.2 mg/dL (0.6-1.3); MAGNESIUM 2.1 mg/dL (1.8-2.4); PHOSPHORUS 3.8 mg/dL (2.5-4.9); POTASSIUM 4.1 mmol/L (3.5-5.1)
--- NOTE | 2019-01-15 11:30 | NUR ---
Eyes open. Trach with vent working at prescribed settings. NGT in place patent with continues low intermittent suction with dark green secretions. Total care provided. Right forearm AV fistula positive for bruith and thrill. Patient went for Hemodialysis as ordered with two data communications engineer and one RT. Report given. no acute distress noted. All needs met and attended. Contact isolation maintained for ESBL of wound.
--- NOTE | 2019-01-15 13:32 | NUR ---
Received a call from [facility] pharmacist Carlos to ask track man/ attending MD during their rounds to consider giving Vit. K at least once a week to be added with TPN. He said that it is not urgent but endorse to incoming shifts to notify MD of the recommendation during rounds.
[2019-01-15] MEDS ORDERED: TPN IV PRN ×14 (14:00)
--- NOTE | 2019-01-15 14:30 | NUR ---
Patient returned from Hemodialysis as ordered with two EMT's and one RT. Via ambulance. Trach with vent working at prescribed settings. NGT in place patent with low intermittent suction with dark green secretions. Right forearm with clean pressure dressing. Positive for bruith and thrill. HOB elevated. Aspiration precautions maintained. Continues on TPN as ordered with right femoral line intact with clean dressing. Kept clean and comfortable. Body alignment maintained. No acute distress noted. All needs met an d attended. Kept clean and comfortable. Contact isolation maintained for ESBL of wound.
[2019-01-15] MEDS: TRIAMCINOLONE ACETONIDE 0.1% CR 15 GM TUBE TP SCH ×2 (15:37→20:01)
[2019-01-15] MEDS: DAKINS QUARTER STRENGTH (0.125%) 480 ML BOTTLE TOP SCH ×2 (15:37→20:01)
[2019-01-15] MEDS: POVIDONE-IODINE OINT 28.4 GM TUBE TP SCH ×4 (15:37→20:01)
[2019-01-15] MEDS: HYDROGEL DRESSING 90 GM TUBE TP SCH ×2 (15:38→20:01)
[2019-01-15] MEDS: CLOTRIMAZOLE 1% 15 GM TUBE TP SCH ×2 (15:38→20:01)
--- NOTE | 2019-01-15 18:12 | NUR ---
Spoke with John Woodall, responsible libertarian informing him of patient's readmission. Explained that patient has NGT which is connected to low intermittent suctioning and not being use for feeding. Patient getting her nutrition through TPN. John said the he may come one weekday to sign papers with social services director.
[2019-01-15] MEDS: FLUCONAZOLE (100 MG) 100 MG TABLET GT SCH (20:01)
[2019-01-15] MEDS: COLISTIMETHATE SODIUM 100 MG in IV NS 0.9% 50 ML IV SCH (21:00)
[2019-01-15] MEDS: INSULIN GLARGINE, 100 UNIT/ML CARTRIDGE SQ SCH (21:19)
[2019-01-16] MEDS: ALBUTEROL FS 2.5 MG/0.5 ML VIAL.NEB NEB SCH ×4 (02:09→19:57)
[2019-01-16 03:24] VITALS: BP 140/62
[2019-01-16] MEDS: BLOOD SUGAR DIAGNOSTIC 1 EACH STRIP IN SCH ×3 (05:17→17:20)
[2019-01-16] MEDS: INSULIN REGULAR, HUMAN 100 UNIT/ML 3 ML VIAL SQ PRN ×3 (05:19→17:23)
[2019-01-16 06:12] VITALS: BP 138/74
[2019-01-16 07:05] LABS: CALCIUM, SERUM 7.6 mg/dL (8.5-10.1); CREATININE 2.6 mg/dL (0.6-1.3); PHOSPHORUS 3.8 mg/dL (2.5-4.9); POTASSIUM 4.4 mmol/L (3.5-5.1)
[2019-01-16 07:56] VITALS: BP 153/79
[2019-01-16] MEDS: MIDODRINE HCL (5MG) 5 MG TABLET GT SCH (08:50)
[2019-01-16] MEDS: HYDROGEN PEROXIDE 480 ML BOTTLE TP SCH ×2 (09:00→21:13)
[2019-01-16] MEDS: NEXIUM 40 MG VIAL IV SCH ×2 (09:00→21:12)
[2019-01-16] MEDS: DAKINS QUARTER STRENGTH (0.125%) 480 ML BOTTLE TOP SCH ×2 (09:38→21:12)
[2019-01-16] MEDS: TRIAMCINOLONE ACETONIDE 0.1% CR 15 GM TUBE TP SCH ×2 (09:38→21:12)
[2019-01-16] MEDS: POVIDONE-IODINE OINT 28.4 GM TUBE TP SCH ×4 (09:38→21:12)
[2019-01-16] MEDS: HYDROGEL DRESSING 90 GM TUBE TP SCH ×2 (09:39→21:12)
[2019-01-16] MEDS: CLOTRIMAZOLE 1% 15 GM TUBE TP SCH ×2 (09:39→21:13)
[2019-01-16] MEDS: NEOMY SULF/BACITRAC ZN/POLY 15 GM TUBE TP SCH ×2 (09:39→21:13)
[2019-01-16] MEDS ORDERED: TPN IV PRN ×22 (10:30→10:46)
[2019-01-16 12:00] VITALS: BP 113/62
[2019-01-16 18:00] VITALS: BP 149/76
[2019-01-16 20:05] VITALS: BP 151/78
[2019-01-16] MEDS: COLISTIMETHATE SODIUM 100 MG in IV NS 0.9% 50 ML IV SCH (21:00)
[2019-01-16] MEDS: FLUCONAZOLE (100 MG) 100 MG TABLET GT SCH (21:12)
[2019-01-16] MEDS: INSULIN GLARGINE, 100 UNIT/ML CARTRIDGE SQ SCH (21:13)
[2019-01-17 00:07] VITALS: BP 140/69
[2019-01-17] MEDS: BLOOD SUGAR DIAGNOSTIC 1 EACH STRIP IN SCH ×5 (00:08→23:28)
[2019-01-17] MEDS: ALBUTEROL FS 2.5 MG/0.5 ML VIAL.NEB NEB SCH ×4 (01:45→19:29)
[2019-01-17 06:10] VITALS: BP 148/60
[2019-01-17 06:45] LABS: CALCIUM, SERUM 7.7 mg/dL (8.5-10.1); MAGNESIUM 2.1 mg/dL (1.8-2.4); PHOSPHORUS 4.5 mg/dL (2.5-4.9); POTASSIUM 4.5 mmol/L (3.5-5.1)
[2019-01-17 07:42] VITALS: BP 142/67
[2019-01-17] MEDS: HYDROGEN PEROXIDE 480 ML BOTTLE TP SCH ×2 (07:57→21:00)
[2019-01-17] MEDS: NEOMY SULF/BACITRAC ZN/POLY 15 GM TUBE TP SCH ×2 (09:00→21:19)
[2019-01-17] MEDS: CLOTRIMAZOLE 1% 15 GM TUBE TP SCH ×2 (09:00→21:19)
[2019-01-17] MEDS: HYDROGEL DRESSING 90 GM TUBE TP SCH ×2 (09:00→21:19)
[2019-01-17] MEDS: TRIAMCINOLONE ACETONIDE 0.1% CR 15 GM TUBE TP SCH ×2 (09:00→21:19)
[2019-01-17] MEDS: DAKINS QUARTER STRENGTH (0.125%) 480 ML BOTTLE TOP SCH ×2 (09:00→21:19)
[2019-01-17] MEDS: MIDODRINE HCL (5MG) 5 MG TABLET GT SCH (09:00)
[2019-01-17] MEDS: POVIDONE-IODINE OINT 28.4 GM TUBE TP SCH ×4 (09:00→21:19)
[2019-01-17] MEDS: NEXIUM 40 MG VIAL IV SCH ×2 (09:41→21:50)
[2019-01-17 12:00] VITALS: BP 142/72
[2019-01-17] MEDS: INSULIN REGULAR, HUMAN 100 UNIT/ML 3 ML VIAL SQ PRN ×3 (12:15→23:29)
[2019-01-17] MEDS: FAT EMULSION 20% 500 ML in PREMIX 1 EA IV SCH (12:30)
--- NOTE | 2019-01-17 16:10 | NUR ---
RT NOTE: RECEIVED PT ON ORDERED VENT SETTINGS. NO RESPIRATORY DISTRESS NOTED. TRACH CHECKED SECURE AND PATENT. SXD AND LAVAGED PT Q ROUND AND NEEDED. TXS GIVEN ORDERED WITH NO ADVERSE REACTIONS NOTED. TRACH CARE DONE. SPARE TRACH AND AMBU BAG @ BEDSIDE. VENT PLUGGED INTO OUTLET.
[2019-01-17 18:00] VITALS: BP 140/85
[2019-01-17 19:48] VITALS: BP 161/83
[2019-01-17] MEDS: FLUCONAZOLE (100 MG) 100 MG TABLET GT SCH (21:18)
[2019-01-17] MEDS: COLISTIMETHATE SODIUM 100 MG in IV NS 0.9% 50 ML IV SCH (21:50)
[2019-01-17] MEDS: INSULIN GLARGINE, 100 UNIT/ML CARTRIDGE SQ SCH (21:56)
[2019-01-17] MEDS ORDERED: TPN IV PRN ×8 (23:00)
[2019-01-18 00:54] VITALS: BP 146/80
[2019-01-18] MEDS: ALBUTEROL FS 2.5 MG/0.5 ML VIAL.NEB NEB SCH ×4 (01:32→19:17)
[2019-01-18] MEDS: BLOOD SUGAR DIAGNOSTIC 1 EACH STRIP IN SCH ×4 (05:45→23:15)
[2019-01-18] MEDS: INSULIN REGULAR, HUMAN 100 UNIT/ML 3 ML VIAL SQ PRN ×2 (05:46→23:16)
[2019-01-18 06:09] VITALS: BP 144/82
[2019-01-18 07:00] LABS: BASOPHILS % (AUTO) 0.4 % (0.0-2.0); EOSINOPHILS % (AUTO) 4.8 % (0.0-6.0); HEMATOCRIT 31 % (33-45); LYMPHOCYTES # (AUTO) 1.6 /CMM (0.8-4.8); MEAN CORPUSCULAR HGB CONC 32 g/dl (31.0-36.0); MEAN CORPUSCULAR VOLUME 84 fL (82-100); MONOCYTES # (AUTO) 0.3 /CMM (0.1-1.30); MONOCYTES % (AUTO) 4.5 % (2.0-12.0); NEUTROPHILS # (AUTO) 3.7 /CMM (1.8-8.9); NEUTROPHILS % (AUTO) 63.3 % (43.0-81.0); PLATELET COUNT (AUTO) 153 /CMM (150-450); RED BLOOD CELL COUNT(AUTO) 3.69 MIL/uL (4.0-5.2); WHITE BLOOD COUNT (AUTO) 5.8 K/uL (4.3-11.0)
[2019-01-18 07:23] LABS: CALCIUM, SERUM 7.5 mg/dL (8.5-10.1); CREATININE 3.6 mg/dL (0.6-1.3); MAGNESIUM 2.3 mg/dL (1.8-2.4); POTASSIUM 4.7 mmol/L (3.5-5.1)
[2019-01-18 08:00] VITALS: BP 147/79
[2019-01-18] MEDS: HYDROGEN PEROXIDE 480 ML BOTTLE TP SCH ×2 (09:00→20:21)
[2019-01-18] MEDS: MIDODRINE HCL (5MG) 5 MG TABLET GT SCH (09:00)
[2019-01-18] MEDS: NEXIUM 40 MG VIAL IV SCH ×2 (09:55→21:00)
--- NOTE | 2019-01-18 11:04 | NUR ---
PT. IS NOT AVAILABLE @ BEDSIDE. PT. SENT OUT FOR HEMODIALYSIS. Addendum: 01/18/19 at 1104 by CHAR JEFFERSON RT Amended: Links added.
[2019-01-18] MEDS: POVIDONE-IODINE OINT 28.4 GM TUBE TP SCH ×4 (16:00→21:45)
[2019-01-18] MEDS: TRIAMCINOLONE ACETONIDE 0.1% CR 15 GM TUBE TP SCH ×2 (16:00→21:44)
[2019-01-18] MEDS: DAKINS QUARTER STRENGTH (0.125%) 480 ML BOTTLE TOP SCH ×2 (16:00→21:44)
[2019-01-18] MEDS: HYDROGEL DRESSING 90 GM TUBE TP SCH ×2 (16:01→21:45)
[2019-01-18] MEDS: CLOTRIMAZOLE 1% 15 GM TUBE TP SCH ×2 (16:01→21:45)
[2019-01-18] MEDS: NEOMY SULF/BACITRAC ZN/POLY 15 GM TUBE TP SCH ×2 (16:01→21:45)
--- NOTE | 2019-01-18 16:19 | NUR ---
PT. CAME BACK FROM HEMODIALYSIS. [facility] VENT PLUGGED INTO RED OUTLET WITH ALARMS ON AND FUNCTIONING. Addendum: 01/18/19 at 1622 by CHAR JEFFERSON RT Amended: Links added.
[2019-01-18] MEDS ORDERED: TPN IV PRN ×3 (21:00)
[2019-01-18] MEDS: COLISTIMETHATE SODIUM 100 MG in IV NS 0.9% 50 ML IV SCH (21:00)
[2019-01-18] MEDS: FLUCONAZOLE (100 MG) 100 MG TABLET GT SCH (21:28)
[2019-01-18] MEDS: INSULIN GLARGINE, 100 UNIT/ML CARTRIDGE SQ SCH (21:29)
[2019-01-19] MEDS: ALBUTEROL FS 2.5 MG/0.5 ML VIAL.NEB NEB SCH ×4 (01:06→20:21)
--- NOTE | 2019-01-19 03:45 | NUR ---
PT RCVD TRACH'D ON MECHANICAL VENT WITH CHARTED SETTINGS. PT CESARIO TX WELL. SX DONE. PT TRACH IS PATENT AND SECURE. VENT PLUGGED INTO RED OUTLET. VENT ALARMS ARE ON AND AUDIBLE. AMBU BAG AT BEDSIDE. Addendum: 01/19/19 at 0345 by BETTY VILLEGAS RT Amended: Links added.
[2019-01-19] MEDS: BLOOD SUGAR DIAGNOSTIC 1 EACH STRIP IN SCH ×4 (05:52→23:55)
[2019-01-19] MEDS: INSULIN REGULAR, HUMAN 100 UNIT/ML 3 ML VIAL SQ PRN ×4 (05:53→23:56)
[2019-01-19 07:36] LABS: CALCIUM, SERUM 7.9 mg/dL (8.5-10.1); CREATININE 2.9 mg/dL (0.6-1.3); MAGNESIUM 2.1 mg/dL (1.8-2.4); PHOSPHORUS 4.2 mg/dL (2.5-4.9)
[2019-01-19 07:37] VITALS: BP 121/75
[2019-01-19] MEDS: HYDROGEN PEROXIDE 480 ML BOTTLE TP SCH ×2 (08:23→21:34)
[2019-01-19] MEDS: NEOMY SULF/BACITRAC ZN/POLY 15 GM TUBE TP SCH ×2 (09:00→21:43)
[2019-01-19] MEDS: POVIDONE-IODINE OINT 28.4 GM TUBE TP SCH ×4 (09:00→21:42)
[2019-01-19] MEDS: TRIAMCINOLONE ACETONIDE 0.1% CR 15 GM TUBE TP SCH ×2 (09:00→21:42)
[2019-01-19] MEDS: MIDODRINE HCL (5MG) 5 MG TABLET GT SCH (09:00)
[2019-01-19] MEDS: NEXIUM 40 MG VIAL IV SCH (09:00)
[2019-01-19] MEDS: HYDROGEL DRESSING 90 GM TUBE TP SCH ×2 (09:00→21:43)
[2019-01-19] MEDS: DAKINS QUARTER STRENGTH (0.125%) 480 ML BOTTLE TOP SCH ×2 (09:00→21:42)
[2019-01-19] MEDS: CLOTRIMAZOLE 1% 15 GM TUBE TP SCH ×2 (09:00→21:43)
[2019-01-19] MEDS ORDERED: TPN IV PRN ×15 (11:30→12:00)
--- NOTE | 2019-01-19 13:53 | NUR ---
RT: RECEIVED PT ON [facility] VENT WITH SETTINGS PER MD ORDER. PRODUCTION ADMINISTRATIVE ASSISTANT DONE. SPARE TRACH AND AMBU BAG AT HEAD OF BED. ALARMS ON AND AUDIBLE. VENT PLUGGED INTO RED OUTLET. TX GIVEN ORDERED. NO ADVERSE REACTIONS OBSERVED. SUCTIONED SMALL AMOUNTS OF THICK, PALE YELLOW SECRETIONS. TRACH CARE DONE. AIRWAY SECURED AND PATENT. NO SIGNS OF DISTRESS NOTED AT THIS TIME. WILL CONTINUE TO MONITOR PT FOR ANY CHANGE OF CONDITION. Addendum: 01/19/19 at 1817 by JAVON STANLEY RT Amended: Links added.
--- NOTE | 2019-01-19 20:17 | NUR ---
PATIENT RECEIVED TRACHED ON MECHANICAL VENTILATION. AMBU BAG/BACK UP TRACH @ BEDSIDE. TX GIVEN, NO ADVERSE REACTIONS NOTED. SX DONE, TRACH SECURED AND PATENT. ALARMS ON AND AUDIBLE. PATIENT STABLE, WILL CONTINUE TO MONITOR.
[2019-01-19] MEDS: COLISTIMETHATE SODIUM 100 MG in IV NS 0.9% 50 ML IV SCH (20:28)
[2019-01-19] MEDS: PANTOPRAZOLE 40 MG VIAL IV SCH (20:28)
[2019-01-19 20:46] VITALS: BP 150/81
[2019-01-19] MEDS: INSULIN GLARGINE, 100 UNIT/ML CARTRIDGE SQ SCH (21:44)
[2019-01-20] MEDS: ALBUTEROL FS 2.5 MG/0.5 ML VIAL.NEB NEB SCH ×4 (02:06→20:07)
[2019-01-20] MEDS: BLOOD SUGAR DIAGNOSTIC 1 EACH STRIP IN SCH ×3 (05:54→17:52)
[2019-01-20] MEDS: INSULIN REGULAR, HUMAN 100 UNIT/ML 3 ML VIAL SQ PRN ×2 (05:56→17:52)
[2019-01-20 07:25] LABS: CALCIUM, SERUM 8.4 mg/dL (8.5-10.1); CREATININE 3.4 mg/dL (0.6-1.3); MAGNESIUM 2.1 mg/dL (1.8-2.4); PHOSPHORUS 4.2 mg/dL (2.5-4.9); POTASSIUM 3.7 mmol/L (3.5-5.1)
[2019-01-20 07:33] VITALS: BP 118/75
[2019-01-20] MEDS: HYDROGEN PEROXIDE 480 ML BOTTLE TP SCH ×2 (08:29→21:06)
--- NOTE | 2019-01-20 08:45 | NUR ---
RT: RCVD PT ON [facility] VENT WITH SETTINGS PER MD ORDER. BREAKER MECHANIC DONE. SPARE TRACH AND AMBU BAG AT HEAD OF BED. ALARMS ON AND AUDIBLE. VENT PLUGGED INTO RED OUTLET. TX GIVEN ORDERED. NO ADVERSE REACTIONS OBSERVED. SUCTIONED SMALL AMOUNTS OF THICK, PALE YELLOW SECRETIONS. TRACH CARE DONE. AIRWAY SECURED AND PATENT. NO SIGNS OF DISTRESS NOTED AT THIS TIME. WILL CONTINUE TO MONITOR PT FOR ANY CHANGES. Addendum: 01/20/19 at 1731 by JAVON STANLEY RT Amended: Links added.
[2019-01-20] MEDS: NEOMY SULF/BACITRAC ZN/POLY 15 GM TUBE TP SCH ×2 (09:00→21:00)
[2019-01-20] MEDS: PANTOPRAZOLE 40 MG VIAL IV SCH ×2 (09:00→21:30)
[2019-01-20] MEDS: TRIAMCINOLONE ACETONIDE 0.1% CR 15 GM TUBE TP SCH ×2 (09:00→21:00)
[2019-01-20] MEDS: POVIDONE-IODINE OINT 28.4 GM TUBE TP SCH ×4 (09:00→21:00)
[2019-01-20] MEDS: CLOTRIMAZOLE 1% 15 GM TUBE TP SCH ×2 (09:00→21:00)
[2019-01-20] MEDS: DAKINS QUARTER STRENGTH (0.125%) 480 ML BOTTLE TOP SCH ×2 (09:00→21:00)
[2019-01-20] MEDS: HYDROGEL DRESSING 90 GM TUBE TP SCH ×2 (09:00→21:00)
[2019-01-20] MEDS: MIDODRINE HCL (5MG) 5 MG TABLET GT SCH (09:22)
--- NOTE | 2019-01-20 15:40 | NUR ---
Family Invitation to IDT: SW left a voicemail to patient�s responsible libertarian/ Boyfriend, John Woodall [phone] inviting them to the next IDT meeting where the patient�s plan of care is to be reviewed on 01/28/19 12:30pm-1:30 pm.
[2019-01-20] MEDS: FAT EMULSION 20% 500 ML in PREMIX 1 EA IV SCH (16:00)
[2019-01-20 20:10] VITALS: BP_SYST 143; BP_SYST 147; BP_DIAS 70; BP_DIAS 89
[2019-01-20] MEDS: COLISTIMETHATE SODIUM 100 MG in IV NS 0.9% 50 ML IV SCH (20:17)
--- NOTE | 2019-01-20 22:02 | NUR ---
RT NOTE PATIENT RECEIVED TRACHED ON MECHANICAL VENTILATION. AMBU BAG/BACK UP TRACH @ BEDSIDE. TX GIVEN, NO ADVERSE REACTIONS NOTED. SX DONE, TRACH SECURED AND PATENT. ALARMS ON AND AUDIBLE. CONT. POX CONNECTED. WILL CONTINUE TO MONITOR T/O SHIFT. Addendum: 01/20/19 at 2204 by CARI TRIANA RT Amended: Links added.
[2019-01-20] MEDS: INSULIN GLARGINE, 100 UNIT/ML CARTRIDGE SQ SCH (22:03)
[2019-01-20] MEDS ORDERED: TPN IV PRN ×6 (23:00)
[2019-01-21] MEDS: INSULIN REGULAR, HUMAN 100 UNIT/ML 3 ML VIAL SQ PRN ×5 (01:04→23:45)
[2019-01-21] MEDS: ALBUTEROL FS 2.5 MG/0.5 ML VIAL.NEB NEB SCH ×4 (01:18→20:11)
[2019-01-21] MEDS: BLOOD SUGAR DIAGNOSTIC 1 EACH STRIP IN SCH ×5 (05:45→23:44)
[2019-01-21 07:15] LABS: CALCIUM, SERUM 8.1 mg/dL (8.5-10.1); CREATININE 2.7 mg/dL (0.6-1.3); MAGNESIUM 1.9 mg/dL (1.8-2.4); PHOSPHORUS 3.2 mg/dL (2.5-4.9); POTASSIUM 3.9 mmol/L (3.5-5.1)
[2019-01-21 07:29] VITALS: BP 155/74
[2019-01-21] MEDS: HYDROGEN PEROXIDE 480 ML BOTTLE TP SCH ×2 (08:25→21:23)
[2019-01-21] MEDS: NEOMY SULF/BACITRAC ZN/POLY 15 GM TUBE TP SCH ×2 (09:00→21:32)
[2019-01-21] MEDS: MIDODRINE HCL (5MG) 5 MG TABLET GT SCH (09:00)
[2019-01-21] MEDS: POVIDONE-IODINE OINT 28.4 GM TUBE TP SCH ×4 (09:00→21:32)
[2019-01-21] MEDS: CLOTRIMAZOLE 1% 15 GM TUBE TP SCH ×2 (09:00→21:32)
[2019-01-21] MEDS: PANTOPRAZOLE 40 MG VIAL IV SCH ×2 (09:00→21:42)
[2019-01-21] MEDS: TRIAMCINOLONE ACETONIDE 0.1% CR 15 GM TUBE TP SCH ×2 (09:00→21:32)
[2019-01-21] MEDS: HYDROGEL DRESSING 90 GM TUBE TP SCH ×2 (09:00→21:32)
[2019-01-21] MEDS: DAKINS QUARTER STRENGTH (0.125%) 480 ML BOTTLE TOP SCH ×2 (09:00→21:32)
[2019-01-21] MEDS ORDERED: TPN IV PRN ×7 (11:00)
--- NOTE | 2019-01-21 13:00 | NUR ---
Seen and examined by Dr. Fowler, no new order given.
[2019-01-21 20:08] VITALS: BP 127/71
[2019-01-21] MEDS: INSULIN GLARGINE, 100 UNIT/ML CARTRIDGE SQ SCH (21:33)
[2019-01-22] MEDS: ALBUTEROL FS 2.5 MG/0.5 ML VIAL.NEB NEB SCH ×4 (01:38→19:30)
--- NOTE | 2019-01-22 04:39 | NUR ---
RT PATIENT WAS RECEIVED ON CONTINUOUS VENT SUPPORT ON NOTED VENT SETTINGS. HHN TREATMENT WAS GIVEN , NO ADVERSE REACTION NOTED. PATIENT STABLE THROUGHOUT THE SHIFT. AIRWAY PATENT AND SECURED. WILL CONTINUE TO MONITOR. Addendum: 01/22/19 at 0440 by FERMÍN DAMON RT Amended: Links added.
[2019-01-22] MEDS: BLOOD SUGAR DIAGNOSTIC 1 EACH STRIP IN SCH ×4 (05:21→23:53)
[2019-01-22] MEDS: INSULIN REGULAR, HUMAN 100 UNIT/ML 3 ML VIAL SQ PRN ×4 (05:22→23:54)
[2019-01-22 07:27] LABS: CALCIUM, SERUM 8.7 mg/dL (8.5-10.1); CREATININE 3.2 mg/dL (0.6-1.3); MAGNESIUM 1.8 mg/dL (1.8-2.4); PHOSPHORUS 3.2 mg/dL (2.5-4.9); POTASSIUM 3.2 mmol/L (3.5-5.1)
[2019-01-22 07:38] VITALS: BP 102/46
[2019-01-22] MEDS: PANTOPRAZOLE 40 MG VIAL IV SCH ×2 (08:37→21:00)
[2019-01-22] MEDS: TRIAMCINOLONE ACETONIDE 0.1% CR 15 GM TUBE TP SCH ×2 (09:00→20:33)
[2019-01-22] MEDS: POVIDONE-IODINE OINT 28.4 GM TUBE TP SCH ×4 (09:00→20:33)
[2019-01-22] MEDS: CLOTRIMAZOLE 1% 15 GM TUBE TP SCH ×2 (09:00→20:33)
[2019-01-22] MEDS: HYDROGEL DRESSING 90 GM TUBE TP SCH ×2 (09:00→20:33)
[2019-01-22] MEDS: DAKINS QUARTER STRENGTH (0.125%) 480 ML BOTTLE TOP SCH ×2 (09:00→20:33)
[2019-01-22] MEDS: NEOMY SULF/BACITRAC ZN/POLY 15 GM TUBE TP SCH ×2 (09:00→20:33)
[2019-01-22] MEDS: HYDROGEN PEROXIDE 480 ML BOTTLE TP SCH ×2 (09:00→20:33)
[2019-01-22] MEDS: MIDODRINE HCL (5MG) 5 MG TABLET GT SCH (09:30)
[2019-01-22] MEDS ORDERED: TPN IV PRN ×12 (12:00→12:30)
[2019-01-22] MEDS: POTASSIUM CL. PREMIX PERIPHER. 50 ML IV SCH ×2 (15:46→17:26)
[2019-01-22] MEDS: Magnesium 1GM/D5W 100ML PREMIX 100 ML IV SCH ×2 (15:49→17:29)
[2019-01-22] MEDS: FAT EMULSION 20% 500 ML in PREMIX 1 EA IV SCH (20:00)
[2019-01-22 20:19] VITALS: BP 113/68
--- NOTE | 2019-01-22 20:35 | NUR ---
RT Notes PT received trached on [facility] vent on charted settings. No signs of resp distress/SOB noted at this time. Airway patent and secured. VAT WASHER done. PT suctioned. HHN tx judith well. No adverse reaction. Ambubag and back up trach at head of bed. Alarms set and audible. Vent connected to red outlet. Will cont to monitor. Addendum: 01/23/19 at 0608 by KY GREEN RT Amended: Links added.
[2019-01-22] MEDS: INSULIN GLARGINE, 100 UNIT/ML CARTRIDGE SQ SCH (21:23)
[2019-01-23] MEDS: ALBUTEROL FS 2.5 MG/0.5 ML VIAL.NEB NEB SCH ×4 (02:09→19:36)
[2019-01-23] MEDS: BLOOD SUGAR DIAGNOSTIC 1 EACH STRIP IN SCH ×3 (05:07→17:29)
[2019-01-23] MEDS: INSULIN REGULAR, HUMAN 100 UNIT/ML 3 ML VIAL SQ PRN ×3 (05:09→17:30)
[2019-01-23 07:38] VITALS: BP 114/76
[2019-01-23 07:47] LABS: CALCIUM, SERUM 8.6 mg/dL (8.5-10.1); CREATININE 2.6 mg/dL (0.6-1.3); MAGNESIUM 2.2 mg/dL (1.8-2.4); PHOSPHORUS 1.8 mg/dL (2.5-4.9); POTASSIUM 3.1 mmol/L (3.5-5.1)
[2019-01-23] MEDS: HYDROGEN PEROXIDE 480 ML BOTTLE TP SCH ×2 (08:30→21:00)
[2019-01-23] MEDS: CLOTRIMAZOLE 1% 15 GM TUBE TP SCH ×2 (09:00→20:47)
[2019-01-23] MEDS: TRIAMCINOLONE ACETONIDE 0.1% CR 15 GM TUBE TP SCH ×2 (09:00→20:46)
[2019-01-23] MEDS: PANTOPRAZOLE 40 MG VIAL IV SCH ×2 (09:00→21:00)
[2019-01-23] MEDS: DAKINS QUARTER STRENGTH (0.125%) 480 ML BOTTLE TOP SCH ×2 (09:00→20:46)
[2019-01-23] MEDS: MIDODRINE HCL (5MG) 5 MG TABLET GT SCH (09:00)
[2019-01-23] MEDS: POVIDONE-IODINE OINT 28.4 GM TUBE TP SCH ×4 (09:00→20:47)
[2019-01-23] MEDS: HYDROGEL DRESSING 90 GM TUBE TP SCH ×2 (09:00→20:47)
--- NOTE | 2019-01-23 11:48 | NUR ---
RT RCVD PT ON [facility] VENT WITH SETTINGS PER MD ORDER. MIRROR FRAMER DONE. SPARE TRACH AND AMBU BAG AT HEAD OF BED. ALARMS ON AND AUDIBLE. VENT PLUGGED INTO RED OUTLET. TX GIVEN ORDERED. NO ADVERSE REACTIONS OBSERVED. SUCTIONED SMALL AMOUNTS OF THICK, PALE YELLOW SECRETIONS. TRACH CARE DONE. AIRWAY SECURED AND PATENT. NO SIGNS OF DISTRESS NOTED AT THIS TIME. WILL CONTINUE TO MONITOR PT FOR ANY CHANGES. VENT CIRCUIT CHANGED PER RT PROTOCOL. Addendum: 01/23/19 at 1838 by JAVON STANLEY RT Amended: Links added.
[2019-01-23] MEDS: Potassium Chloride 10 MEQ in IV D5W 50 ML IV SCH ×2 (14:25→16:00)
--- NOTE | 2019-01-23 15:00 | NUR ---
Referred resident's abdominal wound to GI, THOMAS Redman. NGT tube connected to wall suction draining moderate amount of greenish drainage. Abdominal wound dressing also soaked with drainage coming from the wound. According to SECONDARY SET UP MAN she will take a look at it sometime this week. Endorsed.
[2019-01-23] MEDS ORDERED: POTASSIUM PHOSPHATE MM 15 MMOL in IV D5W 250 ML IV SCH (16:00)
[2019-01-23 20:33] VITALS: BP 121/71
[2019-01-23] MEDS: INSULIN GLARGINE, 100 UNIT/ML CARTRIDGE SQ SCH (21:34)
[2019-01-24] MEDS: BLOOD SUGAR DIAGNOSTIC 1 EACH STRIP IN SCH ×5 (00:58→23:44)
[2019-01-24] MEDS: INSULIN REGULAR, HUMAN 100 UNIT/ML 3 ML VIAL SQ PRN ×5 (01:00→23:45)
[2019-01-24] MEDS: ALBUTEROL FS 2.5 MG/0.5 ML VIAL.NEB NEB SCH ×4 (02:23→19:38)
[2019-01-24 06:56] LABS: CALCIUM, SERUM 8.8 mg/dL (8.5-10.1); MAGNESIUM 2.2 mg/dL (1.8-2.4); PHOSPHORUS 2.8 mg/dL (2.5-4.9); POTASSIUM 3.7 mmol/L (3.5-5.1)
[2019-01-24 08:56] VITALS: BP 108/55
[2019-01-24] MEDS: PANTOPRAZOLE 40 MG VIAL IV SCH ×2 (09:00→21:17)
[2019-01-24] MEDS: HYDROGEN PEROXIDE 480 ML BOTTLE TP SCH ×2 (09:00→21:08)
[2019-01-24] MEDS: MIDODRINE HCL (5MG) 5 MG TABLET GT SCH (09:08)
[2019-01-24] MEDS: TRIAMCINOLONE ACETONIDE 0.1% CR 15 GM TUBE TP SCH ×2 (14:00→21:18)
[2019-01-24] MEDS: POVIDONE-IODINE OINT 28.4 GM TUBE TP SCH ×4 (14:00→21:18)
[2019-01-24] MEDS: DAKINS QUARTER STRENGTH (0.125%) 480 ML BOTTLE TOP SCH ×2 (14:00→21:18)
[2019-01-24] MEDS: CLOTRIMAZOLE 1% 15 GM TUBE TP SCH ×2 (14:00→21:18)
[2019-01-24] MEDS: HYDROGEL DRESSING 90 GM TUBE TP SCH ×2 (14:00→21:18)
[2019-01-24] MEDS ORDERED: TPN IV PRN ×14 (14:30→23:00)
[2019-01-24 20:31] VITALS: BP 139/73
[2019-01-24] MEDS: INSULIN GLARGINE, 100 UNIT/ML CARTRIDGE SQ SCH (21:19)
[2019-01-25] MEDS: ALBUTEROL FS 2.5 MG/0.5 ML VIAL.NEB NEB SCH ×4 (00:50→19:09)
[2019-01-25] MEDS: INSULIN REGULAR, HUMAN 100 UNIT/ML 3 ML VIAL SQ PRN ×2 (05:08→17:11)
[2019-01-25] MEDS: BLOOD SUGAR DIAGNOSTIC 1 EACH STRIP IN SCH ×3 (05:08→17:10)
[2019-01-25 07:09] LABS: CALCIUM, SERUM 8.8 mg/dL (8.5-10.1); CREATININE 3.6 mg/dL (0.6-1.3); MAGNESIUM 2.4 mg/dL (1.8-2.4); PHOSPHORUS 3.3 mg/dL (2.5-4.9); POTASSIUM 3.9 mmol/L (3.5-5.1)
[2019-01-25 07:47] VITALS: BP 140/64
--- NOTE | 2019-01-25 07:58 | NUR ---
RT Pt received trached on the vent with noted settings. Vent is plugged into red outlet. HHN tx given with no adverse reactions. No SOB or respiratory distress noted. Addendum: 01/25/19 at 0948 by EDU CIFUENTES RT Amended: Links added.
[2019-01-25] MEDS: PANTOPRAZOLE 40 MG VIAL IV SCH ×2 (08:48→21:00)
[2019-01-25] MEDS: CLOTRIMAZOLE 1% 15 GM TUBE TP SCH ×2 (09:00→20:33)
[2019-01-25] MEDS: POVIDONE-IODINE OINT 28.4 GM TUBE TP SCH ×4 (09:00→20:33)
[2019-01-25] MEDS: TRIAMCINOLONE ACETONIDE 0.1% CR 15 GM TUBE TP SCH ×2 (09:00→20:33)
[2019-01-25] MEDS: HYDROGEN PEROXIDE 480 ML BOTTLE TP SCH ×2 (09:00→21:00)
[2019-01-25] MEDS: DAKINS QUARTER STRENGTH (0.125%) 480 ML BOTTLE TOP SCH ×2 (09:00→20:32)
[2019-01-25] MEDS: HYDROGEL DRESSING 90 GM TUBE TP SCH ×2 (09:00→20:33)
[2019-01-25] MEDS: MIDODRINE HCL (5MG) 5 MG TABLET GT SCH (09:00)
--- NOTE | 2019-01-25 10:30 | NUR ---
Resident picked up by [facility] transportation via [facility] for hemodialysis treatment, accompanied by 2 EMT's and 1 RT. RFA AV shunt intact, no bleeding noted, positive with thrill and bruit. Resident left the building in stable condition. No respiratory distress noted.
--- NOTE | 2019-01-25 15:30 | NUR ---
Resident returned from S/P hemodialysis treatment, no s/s of any complications noted. RFA AV shunt intact, no active bleeding noted, positive for thrill and bruit. Kept comfortable in bed.
--- NOTE | 2019-01-25 15:50 | NUR ---
RT Pt brought back from dialysis. Pt is stable with no SOB or respiratory distress. Vent alarms are set and audible with BVM by bedside. Vent is plugged into red outlet. Addendum: 01/25/19 at 1711 by EDU CIFUENTES RT Amended: Links added.
[2019-01-25] MEDS: FAT EMULSION 20% 500 ML in PREMIX 1 EA IV SCH (16:00)
[2019-01-25 19:55] VITALS: BP 111/67
[2019-01-25] MEDS: INSULIN GLARGINE, 100 UNIT/ML CARTRIDGE SQ SCH (21:57)
[2019-01-26] MEDS: BLOOD SUGAR DIAGNOSTIC 1 EACH STRIP IN SCH ×5 (00:55→23:36)
[2019-01-26] MEDS: INSULIN REGULAR, HUMAN 100 UNIT/ML 3 ML VIAL SQ PRN ×5 (00:57→23:22)
[2019-01-26] MEDS: ALBUTEROL FS 2.5 MG/0.5 ML VIAL.NEB NEB SCH ×4 (01:08→20:26)
[2019-01-26] MEDS ORDERED: TPN IV PRN ×20 (04:00→14:29)
[2019-01-26 07:53] VITALS: BP 128/58
[2019-01-26 07:55] LABS: CALCIUM, SERUM 8.3 mg/dL (8.5-10.1); MAGNESIUM 2.3 mg/dL (1.8-2.4); PHOSPHORUS 2.9 mg/dL (2.5-4.9); POTASSIUM 3.5 mmol/L (3.5-5.1)
[2019-01-26] MEDS: HYDROGEN PEROXIDE 480 ML BOTTLE TP SCH ×2 (08:26→20:39)
[2019-01-26] MEDS: PANTOPRAZOLE 40 MG VIAL IV SCH ×2 (09:34→20:38)
[2019-01-26] MEDS: MIDODRINE HCL (5MG) 5 MG TABLET GT SCH (09:39)
[2019-01-26] MEDS: POVIDONE-IODINE OINT 28.4 GM TUBE TP SCH ×4 (14:30→20:39)
[2019-01-26] MEDS: HYDROGEL DRESSING 90 GM TUBE TP SCH ×2 (14:30→20:39)
[2019-01-26] MEDS: CLOTRIMAZOLE 1% 15 GM TUBE TP SCH ×2 (14:30→20:40)
[2019-01-26] MEDS: TRIAMCINOLONE ACETONIDE 0.1% CR 15 GM TUBE TP SCH ×2 (14:30→20:39)
[2019-01-26] MEDS: DAKINS QUARTER STRENGTH (0.125%) 480 ML BOTTLE TOP SCH ×2 (14:30→20:38)
--- NOTE | 2019-01-26 15:16 | NUR ---
Seen and examined by STEEL INSPECTOR Debby Redman, assessed abdominal wound and seen amount of drainage coming from NGT connects to suction wall. She said she will discuss the case with Dr. Batista, she will put patient on Reglan, discuss about closing the wound from inside with MD. Guerrero.
--- NOTE | 2019-01-26 16:19 | NUR ---
LUPILLO competed the social media marketing manager portion of [employer]. The patient's responsible democrat/boyfriend, John Woodall [phone] is involved and supportive. The patient is non-communicative, full code, non-vent w/trach. The patient's last dental appointment was 06/14/18 by . The patient will be eligible for another optometry apt. in February 2019, to be scheduled by LUPILLO. Last Optometry vsiit was 02/12/18.
[2019-01-26 19:46] VITALS: BP 102/62
--- NOTE | 2019-01-26 20:00 | NUR ---
SUBACUTE/RN NOTES RECEIVED PATIENT IN BED. OPENS EYES. REQUIRE EXTENSIVE ASSISTANCE IN TURNING AND REPOSITION. WITH COLOSTOMY, , NGT TUBE, ON TPN FOR NUTRITION,
[2019-01-26] MEDS: INSULIN GLARGINE, 100 UNIT/ML CARTRIDGE SQ SCH (21:31)
[2019-01-27] MEDS: ALBUTEROL FS 2.5 MG/0.5 ML VIAL.NEB NEB SCH ×3 (01:55→19:49)
[2019-01-27] MEDS: BLOOD SUGAR DIAGNOSTIC 1 EACH STRIP IN SCH ×4 (05:22→23:32)
[2019-01-27] MEDS: INSULIN REGULAR, HUMAN 100 UNIT/ML 3 ML VIAL SQ PRN ×2 (05:40→23:33)
[2019-01-27 06:44] LABS: CALCIUM, SERUM 8.7 mg/dL (8.5-10.1); CREATININE 3.4 mg/dL (0.6-1.3); MAGNESIUM 2.2 mg/dL (1.8-2.4); PHOSPHORUS 3.6 mg/dL (2.5-4.9); POTASSIUM 3.3 mmol/L (3.5-5.1)
[2019-01-27] MEDS ORDERED: TPN IV PRN ×18 (07:30→08:00)
[2019-01-27 08:04] VITALS: BP 153/74
[2019-01-27] MEDS: HYDROGEN PEROXIDE 480 ML BOTTLE TP SCH ×2 (09:00→20:54)
[2019-01-27] MEDS: PANTOPRAZOLE 40 MG VIAL IV SCH ×2 (09:21→20:53)
[2019-01-27] MEDS: MIDODRINE HCL (5MG) 5 MG TABLET GT SCH (09:30)
--- NOTE | 2019-01-27 10:00 | NUR ---
Night charge nurse endorsed that pharmacy said to ask Dr Wall if Lantus insulin can be increased to help maintain potassium levels and to also ask if he wanted to order potassium replacement for K 3.3. Spoke with Dr Wall. He ordered to give Potassium Chloride 20 mEq via GT x 1. He checked pt's blood sugar levels and said to keep current Lantus insulin order.
[2019-01-27] MEDS ORDERED: POTASSIUM CHLORIDE 20 MEQ POWDER PACKET GT ONE (11:30)
[2019-01-27] MEDS: DAKINS QUARTER STRENGTH (0.125%) 480 ML BOTTLE TOP SCH ×2 (16:00→20:54)
[2019-01-27] MEDS: HYDROGEL DRESSING 90 GM TUBE TP SCH ×2 (16:00→20:54)
[2019-01-27] MEDS: CLOTRIMAZOLE 1% 15 GM TUBE TP SCH ×2 (16:00→20:54)
[2019-01-27] MEDS: TRIAMCINOLONE ACETONIDE 0.1% CR 15 GM TUBE TP SCH ×2 (16:00→20:54)
[2019-01-27] MEDS: POVIDONE-IODINE OINT 28.4 GM TUBE TP SCH ×4 (16:00→20:54)
--- NOTE | 2019-01-27 16:12 | NUR ---
PATIENT RECEIVED TRACHED ON [facility] VENT WITH ORDERED SETTINGS. SHELL MACHINE OPERATOR DONE. SPARE TRACH AND AMBU BAG AT HEAD OF BED. ALARMS ARE ON AND AUDIBLE. VENT PLUGGED INTO RED OUTLET. TX GIVEN ORDERED. NO ADVERSE REACTIONS OBSERVED. SUCTIONED MODERATE AMOUNTS OF THICK, PALE YELLOW SECRETIONS. TRACH CARE DONE. AIRWAY SECURED AND PATENT. NO SOB NOTED. WILL CONTINUE TO MONITOR PT FOR ANY CHANGES. Addendum: 01/27/19 at 1613 by ANKUR COLBERT RT Amended: Links added.
--- NOTE | 2019-01-27 18:40 | NUR ---
Clarified with THOMAS Ramsay if pt needs to be on contact isolation for VRE blood. Catheter tip culture done on 01/09/19 showed Acinetobacter baumannii, Proteus mirabilis, and VRE. Blood cultures done on 01/11/19 were negative. Pt has completed her antibiotics. THOMAS Ramsay said to DC contact isolation for VRE blood. Reminded her that pt is also on contact isolation for ESBL abdominal wound. She ordered to repeat wound culture.
--- NOTE | 2019-01-27 18:57 | NUR ---
Seen by THOMAS Leija. Asked her if a follow-up x-ray needs to be done to check pt's old fracture on the left humerus. THOMAS Leija said the pt is comfortable and not to do an x-ray of the left humerus.
[2019-01-27 19:53] VITALS: BP 138/83
[2019-01-27] MEDS: COD LIVER OIL/ZINC OXIDE 120 GM TUBE TP SCH (20:54)
[2019-01-27] MEDS: INSULIN GLARGINE, 100 UNIT/ML CARTRIDGE SQ SCH (23:00)
[2019-01-28] MEDS: ALBUTEROL FS 2.5 MG/0.5 ML VIAL.NEB NEB SCH ×4 (02:03→19:58)
--- NOTE | 2019-01-28 05:07 | NUR ---
Pt rec'd trached on [facility] vent on AC mode. no resp distress or sob noted. trach patent and secured. alarms are set and audible. vent plugged into red outlet. ambu bag bedside. will continue to monitor. Addendum: 01/28/19 at 0516 by LOUISA CRUZ RT Amended: Links added.
[2019-01-28] MEDS: BLOOD SUGAR DIAGNOSTIC 1 EACH STRIP IN SCH ×3 (05:24→17:30)
[2019-01-28] MEDS: INSULIN REGULAR, HUMAN 100 UNIT/ML 3 ML VIAL SQ PRN ×3 (05:27→17:32)
[2019-01-28 07:53] VITALS: BP 121/76
[2019-01-28] MEDS: PANTOPRAZOLE 40 MG VIAL IV SCH ×2 (09:00→21:00)
[2019-01-28] MEDS: HYDROGEN PEROXIDE 480 ML BOTTLE TP SCH ×2 (09:00→21:00)
[2019-01-28] MEDS: MIDODRINE HCL (5MG) 5 MG TABLET GT SCH (09:28)
[2019-01-28] MEDS: HYDROGEL DRESSING 90 GM TUBE TP SCH ×2 (10:00→21:32)
[2019-01-28] MEDS: POVIDONE-IODINE OINT 28.4 GM TUBE TP SCH ×4 (10:00→21:32)
[2019-01-28] MEDS: DAKINS QUARTER STRENGTH (0.125%) 480 ML BOTTLE TOP SCH ×2 (10:00→21:31)
[2019-01-28] MEDS: CLOTRIMAZOLE 1% 15 GM TUBE TP SCH ×2 (10:00→21:32)
[2019-01-28] MEDS: TRIAMCINOLONE ACETONIDE 0.1% CR 15 GM TUBE TP SCH ×2 (10:00→21:32)
[2019-01-28] MEDS: COD LIVER OIL/ZINC OXIDE 120 GM TUBE TP SCH ×2 (10:00→21:32)
[2019-01-28 12:33] LABS: CALCIUM, SERUM 8.8 mg/dL (8.5-10.1); CREATININE 2.9 mg/dL (0.6-1.3); MAGNESIUM 1.9 mg/dL (1.8-2.4); POTASSIUM 3.2 mmol/L (3.5-5.1)
[2019-01-28] MEDS ORDERED: TPN IV PRN ×12 (14:30)
--- NOTE | 2019-01-28 16:28 | NUR ---
PLAN OF CARE CONFERENCE was held today. Dr. Morejon and interdisciplinary team discussed the current plan of care in detail. Family could not participate via phone conference. Charge Nurse discussed isolation D/C, and abdominal wound. Current orders as well as treatments and medications were reviewed. See other discipline's IDT notes for further details.
[2019-01-28 20:24] VITALS: BP 111/51
[2019-01-28] MEDS: INSULIN GLARGINE, 100 UNIT/ML CARTRIDGE SQ SCH (22:55)
[2019-01-29 00:05] VITALS: BP 108/67
[2019-01-29] MEDS: BLOOD SUGAR DIAGNOSTIC 1 EACH STRIP IN SCH ×5 (00:54→23:43)
[2019-01-29] MEDS: INSULIN REGULAR, HUMAN 100 UNIT/ML 3 ML VIAL SQ PRN ×4 (00:56→23:44)
[2019-01-29] MEDS: ALBUTEROL FS 2.5 MG/3 ML VIAL.NEB NEB SCH ×4 (01:23→19:44)
--- NOTE | 2019-01-29 03:13 | NUR ---
Pt rec'd trached on [facility] vent on AC mode. no resp distress or sob noted. trach patent and secured. alarms are set and audible. vent plugged into red outlet. ambu bag bedside. will continue to monitor. Addendum: 01/29/19 at 0313 by LOUISA CRUZ RT Amended: Links added.
[2019-01-29 06:50] VITALS: BP 138/73
[2019-01-29 08:04] VITALS: BP 106/61
[2019-01-29] MEDS: PANTOPRAZOLE 40 MG VIAL IV SCH ×2 (08:19→21:00)
[2019-01-29] MEDS: HYDROGEN PEROXIDE 480 ML BOTTLE TP SCH ×2 (09:00→21:00)
[2019-01-29] MEDS: MIDODRINE HCL (5MG) 5 MG TABLET GT SCH (09:45)
[2019-01-29] MEDS: COD LIVER OIL/ZINC OXIDE 120 GM TUBE TP SCH ×2 (10:00→21:27)
[2019-01-29] MEDS: DAKINS QUARTER STRENGTH (0.125%) 480 ML BOTTLE TOP SCH ×2 (10:00→21:26)
[2019-01-29] MEDS: CLOTRIMAZOLE 1% 15 GM TUBE TP SCH ×2 (10:00→21:27)
[2019-01-29] MEDS: POVIDONE-IODINE OINT 28.4 GM TUBE TP SCH ×4 (10:00→21:27)
[2019-01-29] MEDS: TRIAMCINOLONE ACETONIDE 0.1% CR 15 GM TUBE TP SCH ×2 (10:00→21:27)
[2019-01-29] MEDS: HYDROGEL DRESSING 90 GM TUBE TP SCH ×2 (10:00→21:27)
--- NOTE | 2019-01-29 10:50 | NUR ---
Resident picked up by [facility] transport for hemodialysis via gurney, accompanied by 2 EMT's and 1 RT. Resident RFA AV shunt intact, no bleeding noted. Positive with thrill and bruit. Resident left the building in stable condition.
--- NOTE | 2019-01-29 14:28 | NUR ---
Notified STEEL PLATE CAULKER Nitin Hollins of the abdominal wound culture showing gram negative rods and Strep Species. New order given to start Vancomycin and Amikacin per pharmacy to dose. Faxed order to [facility] pharmacy. Hossein from [facility] pharmacy said, IV pharmacist will be in at 1530 and will call back for dosing. Resident still at Renal dialysis center at this time.
[2019-01-29 15:03] LABS: CALCIUM, SERUM 8.8 mg/dL (8.5-10.1); CREATININE 3.1 mg/dL (0.6-1.3); POTASSIUM 3.6 mmol/L (3.5-5.1)
[2019-01-29] MEDS ORDERED: TPN IV PRN ×7 (15:30)
[2019-01-29] MEDS ORDERED: VANCOMYCIN 1 GM in IV D5W 250 ML IV ONE (17:00)
[2019-01-29] MEDS ORDERED: VANCOMYCIN 500 MG in IV D5W 100ml IV ONE (17:00)
--- NOTE | 2019-01-29 17:00 | NUR ---
Received Vancomycin and Amikacin dosing from [facility] pharmacist to give Vancomycin 500 mg. Q Thursday, and Thursday after dialysis and Amikacin 400 mg. every after dialysis days with trough level before the 3rd dose. However, per [facility] pharmacist she is recommending to give a loading dose of Vancomycin 1gm x 1 and then decrease dose to 500mg. Q TThS after dialysis. Informed [facility] pharmacy regarding [facility] recommendations regarding Vancomycin dosing, she said that whatever our pharmacy recommends, they are OK and to send a clarification of order. Order clarified and faxed it both pharmacy. Resident returned back from dialysis in stable condition, AV shunt in the R FA with dressing in place no bleeding. NGT connected to wall suction and TPN, ATB started as soon as patient returned from dialysis.
--- NOTE | 2019-01-29 17:30 | NUR ---
Resident's responsible libertarian John notified that ATB was started due to abdominal wound infection, appreciated the call.
[2019-01-29] MEDS: FAT EMULSION 20% 500 ML in PREMIX 1 EA IV SCH (18:30)
[2019-01-29] MEDS ORDERED: AMIKACIN 400 MG in IV NS 0.9% 100 ML IV PRN (20:00)
[2019-01-29] MEDS: INSULIN GLARGINE, 100 UNIT/ML CARTRIDGE SQ SCH (21:28)
[2019-01-30] MEDS: ALBUTEROL FS 2.5 MG/3 ML VIAL.NEB NEB SCH ×4 (01:56→19:59)
[2019-01-30] MEDS: BLOOD SUGAR DIAGNOSTIC 1 EACH STRIP IN SCH ×3 (06:08→17:19)
[2019-01-30] MEDS: INSULIN REGULAR, HUMAN 100 UNIT/ML 3 ML VIAL SQ PRN ×3 (06:09→17:20)
[2019-01-30 07:44] LABS: CALCIUM, SERUM 8.5 mg/dL (8.5-10.1); CREATININE 2.5 mg/dL (0.6-1.3); MAGNESIUM 1.8 mg/dL (1.8-2.4); PHOSPHORUS 2.7 mg/dL (2.5-4.9); POTASSIUM 3.5 mmol/L (3.5-5.1)
[2019-01-30 08:08] VITALS: BP 129/73
[2019-01-30] MEDS: PANTOPRAZOLE 40 MG VIAL IV SCH ×2 (09:00→21:00)
[2019-01-30] MEDS: MIDODRINE HCL (5MG) 5 MG TABLET GT SCH (09:23)
[2019-01-30] MEDS: HYDROGEN PEROXIDE 480 ML BOTTLE TP SCH ×2 (09:49→20:40)
[2019-01-30] MEDS: COD LIVER OIL/ZINC OXIDE 120 GM TUBE TP SCH ×2 (10:00→20:40)
[2019-01-30] MEDS: CLOTRIMAZOLE 1% 15 GM TUBE TP SCH ×2 (10:00→20:40)
[2019-01-30] MEDS: HYDROGEL DRESSING 90 GM TUBE TP SCH ×2 (10:00→20:40)
[2019-01-30] MEDS: DAKINS QUARTER STRENGTH (0.125%) 480 ML BOTTLE TOP SCH ×2 (10:00→20:39)
[2019-01-30] MEDS: POVIDONE-IODINE OINT 28.4 GM TUBE TP SCH ×4 (10:00→20:40)
[2019-01-30] MEDS: TRIAMCINOLONE ACETONIDE 0.1% CR 15 GM TUBE TP SCH ×2 (10:00→20:39)
[2019-01-30] MEDS ORDERED: TPN IV PRN ×5 (14:30)
[2019-01-30 19:51] VITALS: BP 131/64
[2019-01-30] MEDS: INSULIN GLARGINE, 100 UNIT/ML CARTRIDGE SQ SCH (21:30)
--- NOTE | 2019-01-30 22:11 | NUR ---
RT NOTES TRACH TUBE IN PLACE, PATENT, AND SECURED WITH TRACH TIE. ALARMS ON AND AUDIBLE. VENT PLUGGED IN TO THE RED OUTLET. BACK UP TRACH AND AMBU BAG BY THE BEDSIDE. NO SIGNS OF ANY DISTRESS AT THIS TIME. Addendum: 01/30/19 at 2211 by THIERRY MEZA RT Amended: Links added.
[2019-01-31] MEDS: BLOOD SUGAR DIAGNOSTIC 1 EACH STRIP IN SCH ×4 (00:34→17:17)
[2019-01-31] MEDS: INSULIN REGULAR, HUMAN 100 UNIT/ML 3 ML VIAL SQ PRN ×4 (00:36→17:17)
[2019-01-31] MEDS: ALBUTEROL FS 2.5 MG/3 ML VIAL.NEB NEB SCH ×4 (01:02→19:33)
[2019-01-31 07:12] LABS: CREATININE 2.9 mg/dL (0.6-1.3); MAGNESIUM 1.9 mg/dL (1.8-2.4); PHOSPHORUS 3.2 mg/dL (2.5-4.9); POTASSIUM 3.8 mmol/L (3.5-5.1)
[2019-01-31 07:29] VITALS: BP 136/68
[2019-01-31] MEDS: PANTOPRAZOLE 40 MG VIAL IV SCH ×2 (08:01→21:02)
[2019-01-31] MEDS: HYDROGEN PEROXIDE 480 ML BOTTLE TP SCH ×2 (09:00→21:00)
[2019-01-31] MEDS: MIDODRINE HCL (5MG) 5 MG TABLET GT SCH (09:39)
[2019-01-31] MEDS: TRIAMCINOLONE ACETONIDE 0.1% CR 15 GM TUBE TP SCH ×2 (09:40→20:21)
[2019-01-31] MEDS: COD LIVER OIL/ZINC OXIDE 120 GM TUBE TP SCH ×2 (09:40→20:22)
[2019-01-31] MEDS: HYDROGEL DRESSING 90 GM TUBE TP SCH ×2 (09:40→20:22)
[2019-01-31] MEDS: POVIDONE-IODINE OINT 28.4 GM TUBE TP SCH ×4 (09:40→20:21)
[2019-01-31] MEDS: CLOTRIMAZOLE 1% 15 GM TUBE TP SCH ×2 (09:40→20:22)
[2019-01-31] MEDS: DAKINS QUARTER STRENGTH (0.125%) 480 ML BOTTLE TOP SCH ×2 (09:40→20:21)
[2019-01-31] MEDS ORDERED: TPN IV PRN ×7 (11:00)
--- NOTE | 2019-01-31 12:05 | NUR ---
Notified THOMAS Ramsay of wound culture result. She will review sensitivities. No new order at this time.
--- NOTE | 2019-01-31 15:17 | NUR ---
Asked THOMAS Redman if there is a plan to do GI surgery for pt. Pt still on TPN. THOMAS Guardado said she will see pt today.
[2019-01-31] MEDS: FAT EMULSION 20% 500 ML in PREMIX 1 EA IV SCH (17:07)
--- NOTE | 2019-01-31 17:19 | NUR ---
THOMAS Redman asked about pt's gastric residuals from NGT suctioning and abdominal wound. Informed her that pt still has high residuals and abdominal wound also has copious amounts of drainage. THOMAS Redman said it is still not safe for pt to have surgery on her old GT site/abdominal wound. She was considering to close the old GT site/abdominal wound from the inside. THOMAS Redman ordered KUB. Informed John.
--- NOTE | 2019-01-31 18:41 | NUR ---
Seen and examined by THOMAS Ramsay. She said pt's abdominal wound is not infected. Pt has gastric drainage on her abdominal wound. She reviewed pt's abdominal wound C & S. She ordered to DC Amikacin and Vancomycin. She said pt does not need to be on isolation but to refer to infection control.
[2019-01-31 20:53] VITALS: BP 124/75
[2019-01-31] MEDS: INSULIN GLARGINE, 100 UNIT/ML CARTRIDGE SQ SCH (21:37)
[2019-02-01] MEDS: BLOOD SUGAR DIAGNOSTIC 1 EACH STRIP IN SCH ×4 (00:38→18:33)
[2019-02-01] MEDS: INSULIN REGULAR, HUMAN 100 UNIT/ML 3 ML VIAL SQ PRN ×2 (00:40→05:29)
[2019-02-01] MEDS: ALBUTEROL FS 2.5 MG/3 ML VIAL.NEB NEB SCH ×4 (01:49→19:26)
[2019-02-01 07:42] VITALS: BP 93/54
[2019-02-01 07:43] LABS: CALCIUM, SERUM 8.8 mg/dL (8.5-10.1); CREATININE 3.3 mg/dL (0.6-1.3); MAGNESIUM 1.6 mg/dL (1.8-2.4); PHOSPHORUS 3.6 mg/dL (2.5-4.9); POTASSIUM 4.1 mmol/L (3.5-5.1)
[2019-02-01] MEDS ORDERED: VANCOMYCIN 1 GM in IV D5W 250 ML IV SCH (08:00)
[2019-02-01] MEDS: HYDROGEN PEROXIDE 480 ML BOTTLE TP SCH ×2 (09:00→21:00)
[2019-02-01] MEDS: MIDODRINE HCL (5MG) 5 MG TABLET GT SCH (09:08)
[2019-02-01] MEDS: PANTOPRAZOLE 40 MG VIAL IV SCH ×3 (09:08→20:21)
[2019-02-01] MEDS ORDERED: TPN IV PRN ×14 (12:00)
--- NOTE | 2019-02-01 13:25 | NUR ---
Spoke with manager integrity Alesia. Asked her to review pt's isolation. Informed her that THOMAS Ramsay said pt's contact isolation for abdominal wound can already be DC'd. Explained to her that pt has completed antibiotic treatment and wound has been recultured last week, THOMAS Ramsay placed pt on Amikacin and Vancomycin but she DC'd both antibiotics yesterday since she said the wound is not infected. Alesia reviewed pt's wound C & S and said she cannot DC isolation because the culture shows multiple organisms that requires pt to be on contact isolation.
--- NOTE | 2019-02-01 14:10 | NUR ---
Pt returned from dialysis. BP 94/44, HR 84. No distress noted. Pt awake, responsive to tactile stimuli. Will monitor.
--- NOTE | 2019-02-01 14:38 | NUR ---
SW called and left a voicemail for family/Boyfriend, John Woodall [phone] to invite them to IDT meeting taking place this Thursday, February 04, 2019 from 12:30pm-1:30pm in the SA activities room or participate via phone conference.
[2019-02-01] MEDS: DAKINS QUARTER STRENGTH (0.125%) 480 ML BOTTLE TOP SCH ×2 (16:30→20:03)
[2019-02-01] MEDS: POVIDONE-IODINE OINT 28.4 GM TUBE TP SCH ×4 (16:30→20:03)
[2019-02-01] MEDS: TRIAMCINOLONE ACETONIDE 0.1% CR 15 GM TUBE TP SCH ×2 (16:30→20:03)
[2019-02-01] MEDS: HYDROGEL DRESSING 90 GM TUBE TP SCH ×2 (16:30→20:04)
[2019-02-01] MEDS: COD LIVER OIL/ZINC OXIDE 120 GM TUBE TP SCH ×2 (16:30→20:04)
[2019-02-01] MEDS: CLOTRIMAZOLE 1% 15 GM TUBE TP SCH ×2 (16:30→20:04)
[2019-02-01] MEDS ORDERED: VANCOMYCIN POST DIALYSIS 500MG IV SCH ×2 (17:00)
--- NOTE | 2019-02-01 18:45 | NUR ---
Pt's BP 134/73, HR 64. Pt sleeping but arousable to tactile stimuli. No SOB/ no distress noted.
[2019-02-01 20:19] VITALS: BP 130/70
[2019-02-01] MEDS: INSULIN GLARGINE, 100 UNIT/ML CARTRIDGE SQ SCH (21:29)
[2019-02-02] MEDS: BLOOD SUGAR DIAGNOSTIC 1 EACH STRIP IN SCH ×5 (00:19→23:33)
[2019-02-02] MEDS: INSULIN REGULAR, HUMAN 100 UNIT/ML 3 ML VIAL SQ PRN ×5 (00:19→23:35)
[2019-02-02] MEDS: ALBUTEROL FS 2.5 MG/3 ML VIAL.NEB NEB SCH ×4 (01:11→20:20)
[2019-02-02 07:54] VITALS: BP 142/75
[2019-02-02] MEDS: HYDROGEN PEROXIDE 480 ML BOTTLE TP SCH ×2 (08:15→21:00)
--- NOTE | 2019-02-02 08:20 | NUR ---
RT PT RECEIVED TRACH'D ON [facility] VENT WITH SETTINGS PER MD. ELECTRONIC DEVELOPMENT TECHNICIAN DONE. SPARE TRACH AND AMBU BAG AT HEAD OF BED. ALARMS ON AND FUNCTIONING PROPERLY. VENT PLUGGED INTO RED OUTLET. TX GIVEN ORDERED. NO ADVERSE REACTIONS OBSERVED. SUCTIONED SMALL AMOUNTS OF THICK, PALE YELLOW SECRETIONS. TRACH CARE DONE. NO SOB OR SIGNS OF DISTRESS NOTED. WILL CONTINUE TO MONITOR FOR ANY CHANGES. Addendum: 02/02/19 at 1709 by JVAON STANLEY RT Amended: Links added.
[2019-02-02 08:21] LABS: CALCIUM, SERUM 8.6 mg/dL (8.5-10.1); CREATININE 2.7 mg/dL (0.6-1.3); MAGNESIUM 1.7 mg/dL (1.8-2.4)
[2019-02-02] MEDS: MIDODRINE HCL (5MG) 5 MG TABLET GT SCH (09:00)
[2019-02-02] MEDS: PANTOPRAZOLE 40 MG VIAL IV SCH ×2 (09:57→21:24)
[2019-02-02] MEDS: POVIDONE-IODINE OINT 28.4 GM TUBE TP SCH ×4 (10:00→21:16)
[2019-02-02] MEDS: DAKINS QUARTER STRENGTH (0.125%) 480 ML BOTTLE TOP SCH ×2 (10:00→21:15)
[2019-02-02] MEDS: CLOTRIMAZOLE 1% 15 GM TUBE TP SCH ×2 (10:00→21:17)
[2019-02-02] MEDS: TRIAMCINOLONE ACETONIDE 0.1% CR 15 GM TUBE TP SCH ×2 (10:00→21:16)
[2019-02-02] MEDS: HYDROGEL DRESSING 90 GM TUBE TP SCH ×2 (10:00→21:16)
[2019-02-02] MEDS: COD LIVER OIL/ZINC OXIDE 120 GM TUBE TP SCH ×2 (10:00→21:17)
[2019-02-02] MEDS ORDERED: TPN IV PRN ×6 (14:00)
--- NOTE | 2019-02-02 14:03 | NUR ---
Unable to verify NGT placement during routine check prior to administration of medication. Dr. Morejon notified and gave an order for abdominal KUB to verify NGT placement. Order carried out.
--- NOTE | 2019-02-02 16:00 | NUR ---
Reported Chest Xray result to Dr. Morejon, (according to radiology receptionist, to verify placement of NGT, the order should be Cxray instead of KUB), he said it is OK use. No other order given.
[2019-02-02] MEDS: FAT EMULSION 20% 500 ML in PREMIX 1 EA IV SCH (17:19)
--- NOTE | 2019-02-02 20:20 | NUR ---
RT NOTE PT RECEIVED TRACHED ON [facility] VENT ON CHARTED SETTINGS. NO SIGNS OF RESP DISTRESS/SOB NOTED AT THIS TIME. AIRWAY PATENT AND SECURED. EXPEDITION SUPERVISOR DONE. PT SUCTIONED. HHN TX GIVEN. ALARMS SET AND AUDIBLE. AMBUBAG AND SPARE TRACH AT HEAD OF BED. WILL CONT TO MONITOR. Addendum: 02/03/19 at 0312 by KY GREEN RT Amended: Links added.
[2019-02-02 20:44] VITALS: BP 154/76
[2019-02-02] MEDS: INSULIN GLARGINE, 100 UNIT/ML CARTRIDGE SQ SCH (21:31)
[2019-02-03] MEDS: ALBUTEROL FS 2.5 MG/3 ML VIAL.NEB NEB SCH ×4 (01:41→19:51)
[2019-02-03] MEDS: BLOOD SUGAR DIAGNOSTIC 1 EACH STRIP IN SCH ×4 (05:41→23:10)
[2019-02-03] MEDS: INSULIN REGULAR, HUMAN 100 UNIT/ML 3 ML VIAL SQ PRN ×3 (05:42→23:37)
[2019-02-03 07:31] VITALS: BP 143/66
[2019-02-03 07:44] LABS: CALCIUM, SERUM 8.7 mg/dL (8.5-10.1); CREATININE 3.2 mg/dL (0.6-1.3); MAGNESIUM 1.9 mg/dL (1.8-2.4); PHOSPHORUS 3.3 mg/dL (2.5-4.9)
[2019-02-03] MEDS ORDERED: TPN IV PRN ×14 (08:30)
[2019-02-03] MEDS: PANTOPRAZOLE 40 MG VIAL IV SCH ×2 (08:56→21:00)
[2019-02-03] MEDS: MIDODRINE HCL (5MG) 5 MG TABLET GT SCH (09:21)
[2019-02-03] MEDS: HYDROGEN PEROXIDE 480 ML BOTTLE TP SCH ×2 (09:32→21:56)
[2019-02-03] MEDS: CLOTRIMAZOLE 1% 15 GM TUBE TP SCH ×2 (09:45→21:56)
[2019-02-03] MEDS: HYDROGEL DRESSING 90 GM TUBE TP SCH ×2 (09:45→21:56)
[2019-02-03] MEDS: POVIDONE-IODINE OINT 28.4 GM TUBE TP SCH ×4 (09:45→21:56)
[2019-02-03] MEDS: COD LIVER OIL/ZINC OXIDE 120 GM TUBE TP SCH ×2 (09:45→21:56)
[2019-02-03] MEDS: TRIAMCINOLONE ACETONIDE 0.1% CR 15 GM TUBE TP SCH ×2 (09:45→21:56)
[2019-02-03] MEDS: DAKINS QUARTER STRENGTH (0.125%) 480 ML BOTTLE TOP SCH ×2 (09:45→21:56)
--- NOTE | 2019-02-03 10:13 | NUR ---
Resident picked up by [facility] transport via gurney for hemodialysis treatment. Accompanied by 2 EMT's and 1 RT. RFA AV shunt intact, no bleeding noted. Positive for thrill and bruit. Resident left the building in stable condition.
--- NOTE | 2019-02-03 14:30 | NUR ---
At 14:30 pm Resident returned from S/P hemodialysis treatment, no s/s of any complications noted. Pt afebrile. RFA AV shunt intact, no active bleeding noted. Covered with dressing, clean and dry. Positive for thrill and bruit. Kept comfortable in bed.
[2019-02-03 19:49] VITALS: BP 148/80
[2019-02-03] MEDS: INSULIN GLARGINE, 100 UNIT/ML CARTRIDGE SQ SCH (22:22)
--- NOTE | 2019-02-03 23:30 | NUR ---
Pt rec'd trached on [facility] vent on AC mode. No resp distress or sob noted. Trach is patent and secured. Sx'd for mod amt of thick pale yellow secretions. Alarms are set and audible. Vent plugged into red outlet. Ambu bag bedside. Will continue to monitor. Addendum: 02/03/19 at 2332 by LOUISA CRUZ RT Amended: Links added.
--- NOTE | 2019-02-03 23:37 | NUR ---
RN NOTES DISCARD INSULIN ADMINISTRATION DOCUMENTED FOR 2336 FOR BLOOD SUGAR 136 ON EMAR. WILL CHECK BLOOD SUGAR FOR 0000 ADMINISTRATION AND FOLLOW UP WITH SLIDING SCALE.
--- NOTE | 2019-02-03 23:38 | NUR ---
RN NOTES INSULIN NOT GIVEN AT 2337. 2337 ACCUCHEK READING WAS FOR 2200, LANTUS, NOT FOR 0000 REGULAR INSULIN.
[2019-02-04] MEDS: INSULIN REGULAR, HUMAN 100 UNIT/ML 3 ML VIAL SQ PRN ×4 (00:17→17:24)
--- NOTE | 2019-02-04 00:19 | NUR ---
RN NOTES BLOOD SUGAR 127 FOR 0000. NO INSULIN GIVEN PER MD ORDER.
[2019-02-04] MEDS: ALBUTEROL FS 2.5 MG/3 ML VIAL.NEB NEB SCH ×4 (02:14→19:07)
[2019-02-04] MEDS: BLOOD SUGAR DIAGNOSTIC 1 EACH STRIP IN SCH ×4 (06:00→17:23)
[2019-02-04 07:25] LABS: CALCIUM, SERUM 8.8 mg/dL (8.5-10.1); CREATININE 2.4 mg/dL (0.6-1.3); PHOSPHORUS 2.6 mg/dL (2.5-4.9); POTASSIUM 3.5 mmol/L (3.5-5.1)
[2019-02-04 07:50] VITALS: BP 137/74
[2019-02-04] MEDS: HYDROGEN PEROXIDE 480 ML BOTTLE TP SCH ×2 (09:00→21:58)
[2019-02-04] MEDS: MIDODRINE HCL (5MG) 5 MG TABLET GT SCH (09:00)
[2019-02-04] MEDS: PANTOPRAZOLE 40 MG VIAL IV SCH ×2 (09:29→21:00)
[2019-02-04] MEDS: CLOTRIMAZOLE 1% 15 GM TUBE TP SCH ×2 (09:55→21:10)
[2019-02-04] MEDS: DAKINS QUARTER STRENGTH (0.125%) 480 ML BOTTLE TOP SCH ×2 (09:55→21:09)
[2019-02-04] MEDS: TRIAMCINOLONE ACETONIDE 0.1% CR 15 GM TUBE TP SCH ×2 (09:55→21:10)
[2019-02-04] MEDS: POVIDONE-IODINE OINT 28.4 GM TUBE TP SCH ×4 (09:55→21:10)
[2019-02-04] MEDS: HYDROGEL DRESSING 90 GM TUBE TP SCH ×2 (09:55→21:10)
[2019-02-04] MEDS: COD LIVER OIL/ZINC OXIDE 120 GM TUBE TP SCH ×2 (09:55→21:10)
--- NOTE | 2019-02-04 16:21 | NUR ---
INTERDISCIPLINARY TEAM PLAN OF CARE CONFERENCE was held today. The patient's responsible green party/ boyfriend John Woodall [phone] was not in attendance. Charge Nurse discussed abdominal wound is improving and pt. will remain in contact isolation. Dr. Morejon and interdisciplinary team discussed the current plan of care in detail. Current orders as well as treatments and medications were reviewed. See other discipline's IDT notes for further details.
[2019-02-04] MEDS: FAT EMULSION 20% 500 ML in PREMIX 1 EA IV SCH (17:14)
[2019-02-04 20:42] VITALS: BP 146/71
[2019-02-04] MEDS: INSULIN GLARGINE, 100 UNIT/ML CARTRIDGE SQ SCH (21:15)
[2019-02-05] MEDS: BLOOD SUGAR DIAGNOSTIC 1 EACH STRIP IN SCH ×3 (00:05→12:00)
[2019-02-05] MEDS: INSULIN REGULAR, HUMAN 100 UNIT/ML 3 ML VIAL SQ PRN ×2 (00:07→05:26)
[2019-02-05] MEDS: ALBUTEROL FS 2.5 MG/3 ML VIAL.NEB NEB SCH ×2 (00:37→08:19)
[2019-02-05 08:57] LABS: CALCIUM, SERUM 8.7 mg/dL (8.5-10.1); CREATININE 3.1 mg/dL (0.6-1.3); MAGNESIUM 1.8 mg/dL (1.8-2.4); PHOSPHORUS 1.9 mg/dL (2.5-4.9)
--- NOTE | 2019-02-05 08:57 | NUR ---
Left a message to Dr. Morejon regarding patient's condition. V/S T 98, HR 91, RR 28, 94/58, 98%, patient pale and does not appear to be in her baseline. Patient currently on ventilator, AC 12, TV 500,f102 at 40%. Awaiting for orders.
[2019-02-05] MEDS: HYDROGEN PEROXIDE 480 ML BOTTLE TP SCH (09:00)
[2019-02-05] MEDS: PANTOPRAZOLE 40 MG VIAL IV SCH (09:00)
[2019-02-05 09:14] LABS: POTASSIUM 2.8 mmol/L (3.5-5.1)
--- NOTE | 2019-02-05 09:16 | NUR ---
Dr. Morejon replied that he is not montessori paraprofessional but to refer patient's condition to primary. Spoke with Lebron from Dr. Enrique Castro's exchange requesting to speak with montessori paraprofessional. According to Lebron, Dr. Terrie Olivo is montessori paraprofessional and will return the call. Awaiting for call back.
[2019-02-05] MEDS: MIDODRINE HCL (5MG) 5 MG TABLET GT SCH (09:24)
--- NOTE | 2019-02-05 09:25 | NUR ---
Informed [facility] pharmacist Carlos of K+ level 2.8, he said that he would like to give bolus K+ however patient's poultry picker time for dialysis is around 10:00-10:15 AM. Therefore he suggested to ask Dr. Terrie Olivo if OK to send patient with that level of K+. Informed pharmacist that a call has been placed.
[2019-02-05 09:56] LABS: BASOPHILS # (AUTO) 0.1 /CMM (0.0-0.2); BASOPHILS % (AUTO) 0.9 % (0.0-2.0); EOSINOPHILS % (AUTO) 1.2 % (0.0-6.0); HEMATOCRIT 31 % (33-45); HEMOGLOBIN 9.9 g/dL (11.5-14.8); LYMPHOCYTES # (AUTO) 1.3 /CMM (0.8-4.8); LYMPHOCYTES % (AUTO) 8.6 % (20.0-44.0); MEAN CORPUSCULAR HGB CONC 32 g/dl (31.0-36.0); MEAN CORPUSCULAR VOLUME 88 fL (82-100); MONOCYTES # (AUTO) 0.4 /CMM (0.1-1.30); MONOCYTES % (AUTO) 2.8 % (2.0-12.0); NEUTROPHILS # (AUTO) 13.3 /CMM (1.8-8.9); NEUTROPHILS % (AUTO) 86.5 % (43.0-81.0); PLATELET COUNT (AUTO) 76 /CMM (150-450); RED BLOOD CELL COUNT(AUTO) 3.59 MIL/uL (4.0-5.2); WHITE BLOOD COUNT (AUTO) 15.4 K/uL (4.3-11.0)
--- NOTE | 2019-02-05 09:58 | NUR ---
Placed a follow-up call to Dr. Terrie Olivo at 0947 which she returned the call immediately after. MD notified of K+ level 2.8, and asked if it is OK for patient to go to dialysis with K= level of 2.8 or if she wants to give an order to give bolus. Informed MD about observations regarding patient's condition and VS 94/58, 98%, HR91, RR 24-28. She said that it is OK for patient to go to dialysis with 2.8 K= level. JAMILA Gonzalez pharmacist informed.
[2019-02-05] MEDS: TRIAMCINOLONE ACETONIDE 0.1% CR 15 GM TUBE TP SCH (10:00)
[2019-02-05] MEDS: DAKINS QUARTER STRENGTH (0.125%) 480 ML BOTTLE TOP SCH (10:00)
[2019-02-05] MEDS: CLOTRIMAZOLE 1% 15 GM TUBE TP SCH (10:00)
[2019-02-05] MEDS: POVIDONE-IODINE OINT 28.4 GM TUBE TP SCH ×2 (10:00)
[2019-02-05] MEDS: HYDROGEL DRESSING 90 GM TUBE TP SCH (10:00)
[2019-02-05] MEDS: COD LIVER OIL/ZINC OXIDE 120 GM TUBE TP SCH (10:00)
--- NOTE | 2019-02-05 10:00 | NUR ---
In addition to Dr. Olivo saying patient can go to dialysis with 2.8 K= level, she also gave an order to get K+ level one hour after dialysis. Order carried out.
--- NOTE | 2019-02-05 10:15 | NUR ---
Notified THOMAS Ramsay of CBC result WBC 15.4 with new order to send BC x 2 from the femoral line. Order noted and carried out.
[2019-02-05 10:19] VITALS: BP 94/54
[2019-02-05 10:20] VITALS: BP 67/37
[2019-02-05 10:23] LABS: EOSINOPHILS % (MANUAL) 1 % (0-4); LYMPHOCYTES % (MANUAL) 8 % (16-48); MONOCYTES % (MANUAL) 5 % (0-11.0); NEUTROPHILS % (MANUAL) 86 (42-76)
--- NOTE | 2019-02-05 10:38 | NUR ---
Dr. Falcon notified of B/P 67/37, HR 86, T 96.4 and RR 16, with new order to give 500 ml NS bolus x 1 hour. According to MD Olivo, to send patient to ER for evaluation if BP does not go up above 90. Will continue to monitor B/P.
--- NOTE | 2019-02-05 11:12 | NUR ---
Spoke with Ivanna RN from [facility] informing her that patient's K+ level is 2.[address] Olivo is aware of it. However at this time, patient will most likely be delayed with her dialysis as she is receiving IVF NS due to hypotension, and if it does not improve, will send the patient to ER. According to dialysis nurse if BP is at least in the 90's they can clean the blood but not able to pull a lot of fluid, she also mentioned that they can give K+ in the dialysis bath to correct her low potassium.
[2019-02-05 11:20] VITALS: BP 65/39
--- NOTE | 2019-02-05 11:44 | NUR ---
Left a message to Dr. Terrie Olivo c/o Lebron from the exchange that patient will be transferred to ER due to hypotension. B/P did not improve despite giving bolus NS 500 ml. SBP remain in the low to mid 60's and diastolic to the high 30's. Nursing greenskeeper supervisor notified of the transfer. Report given to ER nurse c/o Yung. Resident's responsible alliance party John Woodall made aware of the transfer. Appreciated the call.
[2019-02-05] MEDS ORDERED: IV NS 0.9% 500 ML IV ONE (12:00)
--- NOTE | 2019-02-05 12:10 | NUR ---
Resident transferred to ER, wheeled in her bed, connected to the vent accompanied by RN, RT and EXTRUSION TECHNICIAN. Patient placed in a Trendelenburg position, TPN and Lipid on going. Informed receiving RN that patient on isolation for VRE and ESBL of abdominal wound and output from NGT 420 ml. Resident is schedule for dialysis however it was not done today due to hypotension. Recent labs, CxRay result, TMS, recent physician's order and Preferred Intensity of Care sent with the patient.
[2019-02-05] MEDS ORDERED: ZINC57OI3 TP (12:44)
[2019-02-05] MEDS ORDERED: TRIA15CR2 TP (12:44)
[2019-02-05] MEDS ORDERED: PANT40VI IV (12:44)
[2019-02-05 16:38] LABS: CALCIUM, SERUM 9.5 mg/dL (8.5-10.1); CREATININE 3.2 mg/dL (0.6-1.3); POTASSIUM 2.9 mmol/L (3.5-5.1)
--- NOTE | 2019-02-08 12:03 | NUR ---
LUPILLO contacted [facility] [phone] and spoke to Mine to cancel transportation services. Mine expressed understanding and was agreeable to plan. LUPILLO informed charge nurse.
[2019-06-25] MEDS ORDERED: TUBERCULIN,PURIF.PROT.DERIV. 5 TU/0.1 ML VIAL ID SCH (09:00)
== END 2019-02-05 16:00 | disposition short-term general hospital (02) | DRG 130 ==
LOC: UNDOADMIN 11:37 → SA 11:37
PROVIDERS: ADMIT Internal Medicine Nephrology; ATTEND Internal Medicine Nephrology
PROC: 5A1955Z Respiratory Ventilation, Greater than 96 Consecutive Hours (ICD-10-PCS; principal; 2018-10-26)
DX: J96.11 Chronic respiratory failure with hypoxia (principal); R65.21 Severe sepsis with septic shock; A41.50 Gram-negative sepsis, unspecified; G93.1 Anoxic brain damage, not elsewhere classified; K31.6 Fistula of stomach and duodenum; L89.159 Pressure ulcer of sacral region, unspecified stage; L89.154 Pressure ulcer of sacral region, stage 4; I12.0 Hypertensive chronic kidney disease with stage 5 chronic kidney disease or end stage renal disease; T80.211A Bloodstream infection due to central venous catheter, initial encounter; R53.2 Functional quadriplegia; E11.22 Type 2 diabetes mellitus with diabetic chronic kidney disease; E11.51 Type 2 diabetes mellitus with diabetic peripheral angiopathy without gangrene; E11.649 Type 2 diabetes mellitus with hypoglycemia without coma; R13.10 Dysphagia, unspecified; Z99.11 Dependence on respirator [ventilator] status; N18.6 End stage renal disease; Z99.2 Dependence on renal dialysis; L03.311 Cellulitis of abdominal wall; Z89.612 Acquired absence of left leg above knee; Z87.440 Personal history of urinary (tract) infections; Z87.11 Personal history of peptic ulcer disease; D63.8 Anemia in other chronic diseases classified elsewhere; L98.9 Disorder of the skin and subcutaneous tissue, unspecified; E86.9 Volume depletion, unspecified; Z74.09 Other reduced mobility; L30.4 Erythema intertrigo; Z74.01 Bed confinement status; E87.5 Hyperkalemia; M84.422A Pathological fracture, left humerus, initial encounter for fracture; S61.200A Unspecified open wound of right index finger without damage to nail, initial encounter; X58.XXXA Exposure to other specified factors, initial encounter; Y92.89 Other specified places as the place of occurrence of the external cause; Z86.14 Personal history of Methicillin resistant Staphylococcus aureus infection; K94.22 Gastrostomy infection; Y83.3 Surgical operation with formation of external stoma as the cause of abnormal reaction of the patient, or of later complication, without mention of misadventure at the time of the procedure; D62 Acute posthemorrhagic anemia
CPT/HCPCS: 31720; 36415; 71045-TC; 74018; 80048-TC; 80202-TC; 82962-TC; 83735-TC; 84100-TC; 84478-TC; 85025-TC; 85610-TC; 85730-TC; 86580-TC; 87040-TC; 87070-TC; 87186-TC; 92521; 92526; 92611-TC; 94002-TC; 94003-TC; 94760-TC; 94762-TC; 94799-TC; 97110-TC; 99082-TC; A4216; A4623; A6248; A6253; A7526; C1751; C9113; J0690; J0770; J1450; J1815; J2185; J2248; J2250; J2405; J2543; J2704; J2765; J3010; J3370; J3430; J3475; J3480; J3490; J7030; J7040; J7042; J7060; J8597

== ENCOUNTER 2018-12-01 08:00 | Day surgery (SDC) | payer MEDICAID ==
[2018-12-01] MEDS ORDERED: SILVER NITRATE APPLICATOR 1 EA BOX ONE (11:14)
[2018-12-01] MEDS ORDERED: LIDOCAINE 1%-EPI 1:100,000 20 ML VIAL ONE (11:21)
[2018-12-01] MEDS ORDERED: BUPIVACAINE 0.5 % PF 150 MG/30 ML VIAL ONE (11:21)
[2018-12-01] MEDS ORDERED: BACITRACIN OPHTH OINT 3.5 GM TUBE ONE (11:41)
== END 2018-12-01 18:00 | disposition other institution (70) ==
LOC: DS 08:00
PROVIDERS: ATTEND Surgery
DX: Z46.59 Encounter for fitting and adjustment of other gastrointestinal appliance and device (principal); K31.6 Fistula of stomach and duodenum
CPT/HCPCS: 43870; A6253; J3490 ×2

== ENCOUNTER 2018-12-04 13:06 | Inpatient (IN) | payer MEDICAID ==
[~2018-12-04] VITALS: Ht 162.6 cm; Wt 80.7 kg
[~2018-12-04 13:06] MED LIST changes: -VANC750P13 IV; +VANC750P7 IV
--- NOTE | 2018-12-04 13:11 | NUR ---
PT STEVE FROM DIALYSIS CENTER FOR LOW BP, NO DIALYSIS DONE TODAY, PT TO BED 8, PT ON MONITOR, AT BEDSIDE FORE ELENA
[2018-12-04 13:29] LABS: BASOPHILS # (AUTO) 0.1 /CMM (0.0-0.2); BASOPHILS % (AUTO) 0.5 % (0.0-2.0); EOSINOPHILS % (AUTO) 1.4 % (0.0-6.0); HEMATOCRIT 27 % (33-45); HEMOGLOBIN 8.2 g/dL (11.5-14.8); LYMPHOCYTES # (AUTO) 1.6 /CMM (0.8-4.8); LYMPHOCYTES % (AUTO) 10.4 % (20.0-44.0); MEAN CORPUSCULAR HGB CONC 31 g/dl (31.0-36.0); MEAN CORPUSCULAR VOLUME 79 fL (82-100); MONOCYTES # (AUTO) 0.8 /CMM (0.1-1.30); MONOCYTES % (AUTO) 5.6 % (2.0-12.0); NEUTROPHILS # (AUTO) 12.5 /CMM (1.8-8.9); NEUTROPHILS % (AUTO) 82.1 % (43.0-81.0); PLATELET COUNT (AUTO) 168 /CMM (150-450); RED BLOOD CELL COUNT(AUTO) 3.39 MIL/uL (4.0-5.2); WHITE BLOOD COUNT (AUTO) 15.2 K/uL (4.3-11.0)
--- NOTE | 2018-12-04 13:30 | NUR ---
RT NOTES PLACED PT ON VENT PER MD ORDERED SETTINGS. VENT PLUGGED INTO RED OUTLET. NO DISTRESS NOTED. WILL CONT TO MONITOR PT FOR REST OF SHIFT.
[2018-12-04 13:46] LABS: ALANINE AMINOTRANSFERASE < 6 U/L (12-78); ALBUMIN 2.1 g/dL (3.4-5.0); ALKALINE PHOSPHATASE 280 U/L (46-116); ASPARTATE AMINOTRANSFERASE 13 U/L (15-37); BILIRUBIN,DIRECT 0.1 mg/dL (0.0-0.2); BILIRUBIN,TOTAL 0.3 mg/dL (0.2-1.0); CALCIUM, SERUM 8.4 mg/dL (8.5-10.1); CARBON DIOXIDE 31 mmol/L (21-32); CHLORIDE 101 mmol/L (98-107); CREATININE 2.8 mg/dL (0.6-1.3); GLUCOSE 199 mg/dL (74-106); POTASSIUM 3.2 mmol/L (3.5-5.1); SODIUM SERUM 141 mmol/L (136-145); UREA NITROGEN, BLOOD 19 mg/dL (7-18)
--- NOTE | 2018-12-04 13:58 | NUR ---
LACTIC ACID 2.0
[2018-12-04] MEDS ORDERED: MAG30ORA GT (14:01)
[2018-12-04] MEDS ORDERED: OMEP20CA11 GT (14:01)
[2018-12-04] MEDS ORDERED: MORP2SYR IVP (14:01)
[2018-12-04] MEDS ORDERED: ONDA4TAB10 GT (14:01)
[2018-12-04] MEDS ORDERED: NUT.237L67 GT (14:01)
[2018-12-04] MEDS ORDERED: SUCR1TAB GT (14:01)
[2018-12-04] MEDS ORDERED: MIDO5TAB GT (14:01)
--- NOTE | 2018-12-04 14:43 | NUR ---
[facility] LORENZO FOR ADMISSION
--- NOTE | 2018-12-04 15:08 | NUR ---
NURSING SUP AWARE OF BILL BED REQUEST
[2018-12-04] MEDS ORDERED: IV NS 0.9% 500 ML BAG IV ONE (15:30)
[2018-12-04 16:00] VITALS: BP 104/55
--- NOTE | 2018-12-04 16:00 | NUR ---
BILL RN ADMITTING NOTE PATIENT ARRIVED VIA STRETCHER WITH LEAD NETWORK ENGINEER AND RT. PATIENT NONVERBAL, DOES NOT FOLLOW COMMANDS. OPENS EYES. VENT DEPENDANT. PULSE OX AT BEDSIDE, SPO2 100%. TELE ATTACHED, SINUS RHYTHM 97. EDEMA NOTED ON BUE 3+/4+, BP 104/55. NG CONNECTED TO LOW INT SUCTION, DRAINING GREEN FLUID. WOUND PICTURES TAKEN, WOUND CONSULT ORDERED. L UPPER ABDOMEN WOUND PACKED AND DRESSING CHANGED. EXUDATE YELLOWISH FLUID, FOUL ODOR NOTED. R FEMORAL 18G TRIPLE LUMEN CENTRAL LINE INFUSING TPN @40mL/HR, L UA 20G PERIPHERAL IV SALINE LOCKED, FLUSHED, PATENT, INTACT. R AV SHUNT. BED LOCKED, LOW, SIDE RAILS UPX2, CALL LIGHT WITHIN REACH. WILL CONTINUE TO MONITOR AND ENDORSE TO NOC FOR SOURAV.
--- NOTE | 2018-12-04 16:04 | NUR ---
REPORT GIVEN TO NED DEAL FOR SOURAV; PT WILL BE TRANSPORTED TO BILL VIA [facility]
[2018-12-04] MEDS ORDERED: IV D5/ 0.9% NACL 1,000 ML IV SCH (17:00)
[2018-12-04] MEDS ORDERED: ALBUMIN 25% 25 GM in PREMIX 1 EA IV ONE (17:00)
[2018-12-04] MEDS ORDERED: DEXTROSE 50%-WATER 50 ML DISP.SYRIN IV PRN (17:00)
[2018-12-04] MEDS ORDERED: FEE PK DOSING 1 MIN EA MC ONE (17:58)
[2018-12-04] MEDS ORDERED: TPN BAG #2 IV PRN ×8 (18:00)
[2018-12-04] MEDS ORDERED: TPN/PPN PER PHARMACY XX PRN (18:00)
[2018-12-04] MEDS: INSULIN GLARGINE, 100 UNIT/ML CARTRIDGE SQ SCH (18:09)
[2018-12-04] MEDS: BLOOD SUGAR DIAGNOSTIC 1 EACH STRIP IN SCH ×2 (18:09→23:19)
[2018-12-04] MEDS: INSULIN REGULAR, HUMAN 100 UNIT/ML 3 ML VIAL SQ PRN ×2 (18:23→23:20)
--- NOTE | 2018-12-04 19:25 | NUR ---
TELE/TD RN NOTES PATIENT IN BED, RESTING COMFORTABLY AT THIS TIME. NO S/S OF ACUTE DISTRESS NOTED , RESPIRATION EVEN AND UNLABORED. NO SOB NOTED. TRACH INTACT, PATENT, CONNECTED TO VENT WITH PRESCRIBED SETTINGS. PATIENT NON VERBAL, OPEN EYES, NO S/S OF PAIN NOTED AT THIS TIME. RIGHT FEMORAL TRIPLE LUMEN CENTRAL LINE IN PLACE, PATENT, RUNNING WITH TPN ORDERED. ALEXSANDRA SALINE LOCK, PATENT, FLUSHED AT THIS TIME. R LOWER ARM AV SHUNT, PATENT, THRILL PRESENT. PATIENT WITH NG TUBE CONNECTED TO INTERMITTENT SUCTIONING WITH GREENISH DRAINAGE. PATIENT WILL HAVE HD DONE TODAY. PATIENT ON ESTIMATING MANAGER WITH SR WITH FIRST DEGREE AV BLOCK RATE 97. HOB ELEVATED. SAFETY MAINTAINED, BED AT THE LOWEST, LOCKED POSITION. WILL CONTINUE TO MONITOR PATIENT PER PLAN OF CARE.
[2018-12-04 20:00] VITALS: BP 98/52
[2018-12-04] MEDS ORDERED: VANCOMYCIN 1 GM in IV D5W 250 ML IV ONE (20:00)
[2018-12-04] MEDS: PIPERACILLIN /TAZOBACTAM 2.25 G in IV D5W 50 ML IV SCH (20:21)
--- NOTE | 2018-12-04 22:06 | NUR ---
PATIENT S/P HEMODIALYSIS, WITH OUTPUT OF 1000ML. VS BP100/50, P 95, TEMP 97.3 , RESP 12,
[2018-12-05] VITALS (12 sets, daily range): BP systolic 82–129; BP diastolic 43–85
[2018-12-05] MEDS: PIPERACILLIN /TAZOBACTAM 2.25 G in IV D5W 50 ML IV SCH ×3 (04:00→21:23)
[2018-12-05] MEDS: BLOOD SUGAR DIAGNOSTIC 1 EACH STRIP IN SCH ×3 (05:05→17:52)
[2018-12-05] MEDS: INSULIN REGULAR, HUMAN 100 UNIT/ML 3 ML VIAL SQ PRN ×3 (05:10→17:54)
--- NOTE | 2018-12-05 06:23 | NUR ---
TELE/TD RN NOTES PATIENT IN NO ACUTE DISTRESS, RESPIRATION EVEN AND UNLABORED. NO SOB NOTED. TRACH INTACT, PATENT, CONNECTED TO VENT WITH PRESCRIBED SETTINGS. NO S/S OF PAIN NOTED AT THIS TIME. RIGHT FEMORAL TRIPLE LUMEN CENTRAL LINE IN PLACE, PATENT, RUNNING WITH TPN ORDERED. ALEXSANDRA SALINE LOCK, PATENT, FLUSHED AT THIS TIME. R LOWER ARM AV SHUNT, PATENT, THRILL PRESENT. PATIENT WITH NG TUBE CONNECTED TO INTERMITTENT SUCTIONING WITH MINIMAL GREENISH DRAINAGE. PATIENT S/P HEMODIALYSIS WITH OUTPUT OF 1000ML. PREVIOUS G TUBE SITE STOMA STILL LEAKING WITH GREENISH COLOR DRAINAGE, DRESSING CHANGED. PATIENT ON LOW PRESSURE BOILER OPERATOR WITH SR WITH FIRST DEGREE AV BLOCK WITH RATE 90. ALL DUE MEDS GIVEN ORDERED. HOB ELEVATED. SAFETY MAINTAINED, BED AT THE LOWEST, LOCKED POSITION. WILL ENDORSE TO AM SHIFT NURSE FOR SOURAV..
[2018-12-05 06:32] LABS: BASOPHILS % (AUTO) 0.4 % (0.0-2.0); EOSINOPHILS % (AUTO) 1.6 % (0.0-6.0); HEMATOCRIT 24 % (33-45); HEMOGLOBIN 7.3 g/dL (11.5-14.8); LYMPHOCYTES # (AUTO) 1.5 /CMM (0.8-4.8); LYMPHOCYTES % (AUTO) 12.2 % (20.0-44.0); MEAN CORPUSCULAR HGB CONC 31 g/dl (31.0-36.0); MEAN CORPUSCULAR VOLUME 79 fL (82-100); MONOCYTES # (AUTO) 0.7 /CMM (0.1-1.30); MONOCYTES % (AUTO) 5.9 % (2.0-12.0); NEUTROPHILS # (AUTO) 9.5 /CMM (1.8-8.9); NEUTROPHILS % (AUTO) 79.9 % (43.0-81.0); PLATELET COUNT (AUTO) 162 /CMM (150-450); RED BLOOD CELL COUNT(AUTO) 3.05 MIL/uL (4.0-5.2); WHITE BLOOD COUNT (AUTO) 11.9 K/uL (4.3-11.0)
[2018-12-05 06:51] LABS: CALCIUM, SERUM 8.5 mg/dL (8.5-10.1); CREATININE 2.3 mg/dL (0.6-1.3); MAGNESIUM 1.9 mg/dL (1.8-2.4); PHOSPHORUS 1.9 mg/dL (2.5-4.9); POTASSIUM 3.2 mmol/L (3.5-5.1)
--- NOTE | 2018-12-05 07:00 | NUR ---
RN BILL NOTES RECEIVED BEDSIDE REPORT PATIENT A/O X0 OBTUNDED WITH SPONTANEOUS EYE OPENING NO TRACKING NOTED. SINUS ON THE MONITOR 97 WITH 1ST DEGREE BBB. NO SIGNS OF RESPIRATORY DISTRESS ON MECH VENT TOLERATING SETTING WELL. NO ACUTE PAIN NOTED.IV # 20 GAUGE IN ALEXSANDRA SALINE LOCK TPN RUNNING THROUGH RIGHT FEMORA TRIPLE LUMEN L SECOND BAG RUNNING @ 40 ML/HR TOLERATING WELL. NG TUBE CONNECTED TO LOW INTERMITTENT SUCTION WITH MINIMAL LIGHT GREEN DRAINAGE IN TUBING. ANURIC AT THIS TIME LAST HD 12/04 1LITR OUT. COLOSTOMY DRY AND INTACT. SAFETY AND ASPIRATION PRECAUTIONS IN PLACE BED IN LOW POSITION HOB ELEVATED. WILL CONT TO MONITOR ACCORDINGLY.
--- NOTE | 2018-12-05 08:07 | NUR ---
PT TEMP 101.2 AXILLARY COOLING MEASURES AND COOLING BLANKET ORDERED. CALLED MD FOR TYLENOL SUPPOSITORY ORDER WILL CONT TO MONITOR
--- NOTE | 2018-12-05 08:28 | NUR ---
ORDERS OBTAINE FROM DR SRIKANTH LORENZO. TYLENOL SUPP RECTAL BLOOD CULTURES X2 CHEST XRAY VANCO PER PHARMACY AND ZOSYN 2.25MG Q6 HRS
[2018-12-05] MEDS ORDERED: ACETAMINOPHEN 650 MG/SUPP.RECT RC PRN (08:30)
[2018-12-05] MEDS ORDERED: POTASSIUM CL. PREMIX PERIPHER. 50 ML IV SCH (09:00)
[2018-12-05] MEDS: MIDODRINE HCL (5MG) 5 MG TABLET PO SCH (09:18)
[2018-12-05] MEDS: INSULIN GLARGINE, 100 UNIT/ML CARTRIDGE SQ SCH ×2 (09:27→17:56)
[2018-12-05] MEDS ORDERED: TPN BAG #3 IV PRN ×8 (09:30)
[2018-12-05] MEDS: POTASSIUM PHOSPHATE MM 7.5 MMOL in IV D5W 100 ML IV SCH ×2 (09:35→14:37)
[2018-12-05] MEDS ORDERED: FEE TPN 1 MIN EA MC ONE (09:49)
--- NOTE | 2018-12-05 11:54 | NUR ---
NEW ORDERS OBTAINED FROM DR LORENZO. IVF NS @ 500ML/HR TO INCREASE BP. 1 UNIT PRBC WITH TYPE AND CROSS DRAWN , CT ABDOMEN WITH CONTRAST CONSENT OBTAINED AND SIGNED BY STAFF AND MD. DR LORENZO REQUESTING CLEARANCE FROM ID BEFORE NEW PEG OR ABDOMINAL SURGERY DONE.
[2018-12-05] MEDS ORDERED: PIPERACILLIN /TAZOBACTAM 2.25 G in IV D5W 50 ML IV SCH (12:00)
[2018-12-05] MEDS ORDERED: IV NS 0.9% 1,000 ML IV ONE (12:00)
[2018-12-05] MEDS ORDERED: CT SWABBABLE VALVE TRANS SET 1 EA INFUS.SET MC ONE (12:11)
[2018-12-05] MEDS ORDERED: IV NS 0.9% 250 ML IV ONE (12:11)
[2018-12-05] MEDS ORDERED: IOHEXOL-300 100 ML VIAL IV ONE (12:11)
[2018-12-05] MEDS ORDERED: VANCOMYCIN 1 GM in IV D5W 250 ML IV ONE (16:00)
--- NOTE | 2018-12-05 17:21 | NUR ---
STARTED BLOOD TRANSFUSION
[2018-12-05] MEDS ORDERED: VANCOMYCIN 500 MG in IV D5W 100 ML IV PRN (18:00)
[2018-12-05] MEDS: FAT EMULSION 20% 500 ML in PREMIX 1 EA IV SCH (18:16)
--- NOTE | 2018-12-05 19:05 | NUR ---
RN BILL NOTE PATIENT IS RESTING WITH HOB ELEVATED, OBTUNDED, TRACH TO VENT ON SETTINGS ORDERED, NO S/SX OF CARDIAC OR RESPIRATORY DISTRESS, SKIN KEPT CLEAN AND DRY, RIGHT FEMORAL TRIPLE LUMEN CATHETER, WITH LIPIDS AT 40ML/HR AND TPN WITH 20 ML/HR, ALEXSANDRA #20G IV SL, BRADFORD SHUNT, LEFT NARE NASOGASTRIC TUBE CONNECTED TO SUCTION, GREEN COLOR DRAINAGE, COLOSTOMY BAG IN PLACE, SKIN KEPT CLEAN AND DRY, SAFETY MAINTAINED, BED IN LOW LOCKED POSITION, CALL LIGHT WITHIN REACH, WILL CONTINUE TO MONITOR FOR ANY CHANGES.
--- NOTE | 2018-12-05 19:21 | NUR ---
RN BILL NOTES PATIENT TOLERATING BLOOD TRANSFUSION NO S/S OF REACTION. CONT TPN WITH NO EPISODES OF HYPER OR HYPO GLYCEMIA. TOLERATING VENT SETTINGS . WOUND CULTURE OBTAINED AND SENT TO LAB PER ORDER. ENDORSED TO NOC
[2018-12-06] VITALS: BP_SYST 100; BP_SYST 128; BP_DIAS 54; BP_DIAS 68
--- NOTE | 2018-12-06 | NUR ---
BILL RN NOTE TRASNFER OF CARE GIVEN OVER TO MITCHEL MARINO. RECEIVED PATIENT NO S/S OF ACUTE DISTRESS PATIENT TOLERATING VENT SETTINGS BREATHING EVEN AND UNLABORED. PATIENT RUNNING TPN/ LIPIDS AT THIS TIME. BP WNL. PATIENT TURNED AND REPOSITIONED ORAL CARE GIVEN. RN WILL CONTINUE TO MONITOR FOR CHANGES.
[2018-12-06] MEDS: BLOOD SUGAR DIAGNOSTIC 1 EACH STRIP IN SCH ×4 (02:00→17:17)
[2018-12-06] MEDS: INSULIN REGULAR, HUMAN 100 UNIT/ML 3 ML VIAL SQ PRN ×4 (02:38→17:21)
[2018-12-06 04:00] VITALS: BP 100/54
[2018-12-06] MEDS: PIPERACILLIN /TAZOBACTAM 2.25 G in IV D5W 50 ML IV SCH ×3 (05:02→21:28)
--- NOTE | 2018-12-06 06:44 | NUR ---
BILL RN NOTE PATIENT TOLERATED THE NIGHT. NO ACUTE CHANGES .ALL CARE RENDERED ORDERED. RN WILL ENORSE TO AM POC FOR SOURAV. PATIENT SR ON THE MONITOR HR IN THE 90'S. SAFETY PRECAUTIONS IN PLACE.
[2018-12-06 07:03] LABS: IRON, SERUM 33 ug/dl (50-175); TOTAL IRON BINDING CAPACITY 85 ug/dl (250-450)
--- NOTE | 2018-12-06 07:30 | NUR ---
RN BILL NOTES RECEIVED BEDSIDE REPORT. PATIENT IN BED NON-VERBAL NO SIGNS OR SYMPTOMS OF RESPIRATORY DISTRESS ON [facility] TOL[facility] SETT[facility]. NO ACUTE PAIN NOTED. SINUS ON THE MONITOR WITH 1ST DEGREE BBB. 80'S. ANURIC WITH MUCUS BLOOD TINGED URINE. COLOSTOMY CLEAN AND INTACT. OLD GT STOMA OPEN WITH DRESSING INTACT MINIMAL DRAINAGE NOTED. NPO WITH NGT ATTACHED TO INTERMITTENT LOW SUCTION NO DRAINAGE IN CANISTER AT THIS TIME. RIGHT FEMORAL TRIPLE LUMEN RUNNING TPN @ 40 ML/HR AND LIPIDS @ 20ML/HR.ALEXSANDRA #C 20 GAUGE SALINE LOCK. AWAITING FOR WOUND CONSULT AND GI TO CLEAR FOR CLOSURE OF STOMA WOUND. SAFETY PRECAUTIONS IN PLACE HOB ELEVATED BED IN LOW LOCKED POSITION CALL LIGHT WITHIN REACH WILL CONT TO MONITOR ACCORDINGLY.
[2018-12-06 08:00] VITALS: BP 132/50
[2018-12-06 08:40] LABS: BASOPHILS % (AUTO) 0.2 % (0.0-2.0); EOSINOPHILS % (AUTO) 1.9 % (0.0-6.0); HEMATOCRIT 30 % (33-45); HEMOGLOBIN 9.6 g/dL (11.5-14.8); LYMPHOCYTES % (AUTO) 10.3 % (20.0-44.0); MEAN CORPUSCULAR HGB CONC 32 g/dl (31.0-36.0); MEAN CORPUSCULAR VOLUME 80 fL (82-100); MONOCYTES # (AUTO) 0.8 /CMM (0.1-1.30); MONOCYTES % (AUTO) 8.2 % (2.0-12.0); NEUTROPHILS # (AUTO) 7.8 /CMM (1.8-8.9); NEUTROPHILS % (AUTO) 79.4 % (43.0-81.0); PLATELET COUNT (AUTO) 173 /CMM (150-450); RED BLOOD CELL COUNT(AUTO) 3.82 MIL/uL (4.0-5.2); WHITE BLOOD COUNT (AUTO) 9.8 K/uL (4.3-11.0)
[2018-12-06 08:44] LABS: CALCIUM, SERUM 8.4 mg/dL (8.5-10.1); CREATININE 2.8 mg/dL (0.6-1.3); POTASSIUM 4.1 mmol/L (3.5-5.1)
[2018-12-06] MEDS ORDERED: EPOETIN ALFA (10,000 UNIT) 10,000 UNIT/ML VIAL SQ ONE (09:00)
[2018-12-06] MEDS: INSULIN GLARGINE, 100 UNIT/ML CARTRIDGE SQ SCH ×2 (09:21→17:19)
[2018-12-06 10:15] LABS: BAND % (MANUAL) 3 % (0.0-5.0); EOSINOPHILS % (MANUAL) 2 % (0-4); LYMPHOCYTES % (MANUAL) 13 % (16-48); MONOCYTES % (MANUAL) 4 % (0-11.0); NEUTROPHILS % (MANUAL) 78 (42-76)
[2018-12-06] MEDS: MIDODRINE HCL (5MG) 5 MG TABLET PO SCH (10:22)
--- NOTE | 2018-12-06 10:35 | NUR ---
POSITIVE BLOOD CULTURE CALLED FROM LAB INFECTIOUS DISEASE MADE AWARE.
[2018-12-06 11:53] LABS: PHOSPHORUS 3.2 mg/dL (2.5-4.9)
[2018-12-06 12:00] VITALS: BP 126/73
[2018-12-06] MEDS: HYDROGEL DRESSING 90 GM TUBE TP SCH (15:51)
[2018-12-06 16:00] VITALS: BP 118/61
[2018-12-06] MEDS ORDERED: TPN BAG #4 IV PRN ×6 (18:00)
[2018-12-06] MEDS: Z GUARD REMEDY 2 OZ OINT TP SCH (18:26)
--- NOTE | 2018-12-06 19:28 | NUR ---
NO SIGNIFICANT CHANGES THROUGHOUT SHIFT ENDORSED TO NOC
--- NOTE | 2018-12-06 19:51 | NUR ---
BILL RN OPENING NOTES RECEIVED REPORT FROM REGINA MARINO. PATIENT OBTUNDED BUT RESPONDS TO TACTILE STIMULI. BREATHING EVEN & UNLABORED W/ TRACH INTACT & TOLERATING VENT SETTINGS AC 12, TV 500, FIO2 40%, PEEP 5. NO RESPIRATORY DISTRESS NOTED. ON TELE W/ SINUS RHYTHM & INVERTED T WAVE W/ 1ST DEGREE AVB. LEFT UPPER ARM IV #20 & RIGHT FEMORAL TLC INTACT & PATENT W/ DRESSING CDI. LIPIDS INFUSING WELL @ 20 ML/HR & TPN @ 40 ML/HR. RIGHT AV SHUNT W/ NO COMPLICATIONS NOTED. COLOSTOMY BAG IN PLACE, NO DRAINAGE @ THIS TIME. LEFT NGT IN PLACE & ON INTERMITTENT SUCTION W/ LIGHT YELLOWISH-GREENISH DRAINAGE NOTED. NO S/S OF PAIN OR DISCOMFORT @ THIS TIME. SAFETY MEASURES IN PLACE W/ SIDE RAILS UP & BED ALARM ON. WILL CONTINUE TO MONITOR CLOSELY.
[2018-12-06 20:00] VITALS: BP 153/62
[2018-12-07] VITALS: BP 125/36
[2018-12-07] MEDS: INSULIN REGULAR, HUMAN 100 UNIT/ML 3 ML VIAL SQ PRN ×5 (00:19→23:42)
[2018-12-07] MEDS: BLOOD SUGAR DIAGNOSTIC 1 EACH STRIP IN SCH ×5 (00:20→23:38)
--- NOTE | 2018-12-07 00:30 | NUR ---
BILL RN NOTES CLARIFIED W/ AFTER HOUR PHARMACY REGARDING VANCOMYCIN DOSE POST HD. PER PHARMACIST, DO NOT ADMINISTER BECAUSE RANDOM VANCOMYCIN LEVEL = 28.
[2018-12-07 04:00] VITALS: BP 144/70
[2018-12-07] MEDS: PIPERACILLIN /TAZOBACTAM 2.25 G in IV D5W 50 ML IV SCH ×3 (04:12→21:07)
--- NOTE | 2018-12-07 07:31 | NUR ---
RN BILL NOTES RECEIVED BEDSIDE REPORT. PATIENT IN BED NON-VERBAL NO SIGNS OR SYMPTOMS OF RESPIRATORY DISTRESS ON [facility] TOL[facility]ATING SETTINGS. NO ACUTE PAIN NOTED. SINUS ON THE MONITOR WITH 1ST DEGREE BBB. 80'S. ANURIC WITH MUCUS BLOOD TINGED URINE. COLOSTOMY CLEAN AND INTACT. OLD GT STOMA OPEN WITH DRESSING INTACT MINIMAL DRAINAGE NOTED. NPO WITH NGT ATTACHED TO INTERMITTENT LOW SUCTION NO DRAINAGE IN CANISTER AT THIS TIME. RIGHT FEMORAL TRIPLE LUMEN RUNNING TPN @ 40 ML/HR ALEXSANDRA # # 20 GAUGE.DRESSING TO ABDOMEN WITH DRAINAGE NOTED WOUND AND ID MD ON CASE. SAFETY PRECAUTIONS IN PLACE HOB ELEVATED BED IN LOW LOCKED POSITION CALL LIGHT WITHIN REACH WILL CONT TO MONITOR ACCORDINGLY.
--- NOTE | 2018-12-07 07:55 | NUR ---
WOUND CARE CONSULT: PT SEEN FOR ABDOMINAL SURGICAL WOUND. RECOMMENDATIONS MADE FOR WOUND CARE AND SKIN PROTECTION. DISCUSSED WITH NURSING STAFF. DEFER TO PLASTIC SURGERY TEAM FOR SACRAL WOUND TREATMENT PLAN. WILL SEE PRN. FUENTES IN AGREEMENT WITH PLAN OF CARE. Addendum: 12/07/18 at 0759 by RICHARD DANG WNDNU Amended: Links added.
[2018-12-07 08:00] VITALS: BP 129/54
[2018-12-07] MEDS: MIDODRINE HCL (5MG) 5 MG TABLET PO SCH (08:59)
[2018-12-07] MEDS: DAKINS QUARTER STRENGTH (0.125%) 480 ML BOTTLE TOP SCH ×2 (09:00→21:04)
[2018-12-07] MEDS: INSULIN GLARGINE, 100 UNIT/ML CARTRIDGE SQ SCH ×2 (09:01→18:12)
[2018-12-07] MEDS: HYDROGEL DRESSING 90 GM TUBE TP SCH (09:05)
[2018-12-07] MEDS: Z GUARD REMEDY 2 OZ OINT TP SCH (09:06)
[2018-12-07 12:00] VITALS: BP 149/66
[2018-12-07 12:17] LABS: BASOPHILS % (AUTO) 0.5 % (0.0-2.0); EOSINOPHILS % (AUTO) 2.9 % (0.0-6.0); HEMATOCRIT 28 % (33-45); HEMOGLOBIN 8.7 g/dL (11.5-14.8); LYMPHOCYTES # (AUTO) 1.1 /CMM (0.8-4.8); LYMPHOCYTES % (AUTO) 16.2 % (20.0-44.0); MEAN CORPUSCULAR HGB CONC 32 g/dl (31.0-36.0); MEAN CORPUSCULAR VOLUME 79 fL (82-100); MONOCYTES # (AUTO) 0.5 /CMM (0.1-1.30); MONOCYTES % (AUTO) 7.9 % (2.0-12.0); NEUTROPHILS # (AUTO) 4.7 /CMM (1.8-8.9); NEUTROPHILS % (AUTO) 72.5 % (43.0-81.0); PLATELET COUNT (AUTO) 143 /CMM (150-450); RED BLOOD CELL COUNT(AUTO) 3.51 MIL/uL (4.0-5.2); WHITE BLOOD COUNT (AUTO) 6.5 K/uL (4.3-11.0)
[2018-12-07 12:32] LABS: ALBUMIN 1.9 g/dL (3.4-5.0); BILIRUBIN,TOTAL 0.4 mg/dL (0.2-1.0); CALCIUM, SERUM 8.6 mg/dL (8.5-10.1); CREATININE 2.8 mg/dL (0.6-1.3); MAGNESIUM 2.1 mg/dL (1.8-2.4); PHOSPHORUS 2.6 mg/dL (2.5-4.9); POTASSIUM 3.3 mmol/L (3.5-5.1); TOTAL PROTEIN, SERUM 6.7 g/dL (6.4-8.2)
[2018-12-07 16:00] VITALS: BP 153/62
[2018-12-07] MEDS ORDERED: TPN BAG #5 IV PRN ×8 (17:00)
[2018-12-07] MEDS: FAT EMULSION 20% 500 ML in PREMIX 1 EA IV SCH (18:20)
[2018-12-07] MEDS: FLUCONAZOLE IN NS 100 MG in PREMIX 1 EA IV SCH ×2 (18:51)
--- NOTE | 2018-12-07 19:41 | NUR ---
REPORT ENDORSED TO NOC
[2018-12-07 20:00] VITALS: BP 145/68
[2018-12-08] VITALS (9 sets, daily range): BP systolic 109–155; BP diastolic 32–98
[2018-12-08] MEDS: PIPERACILLIN /TAZOBACTAM 2.25 G in IV D5W 50 ML IV SCH ×2 (04:43→12:37)
[2018-12-08] MEDS: BLOOD SUGAR DIAGNOSTIC 1 EACH STRIP IN SCH ×4 (06:06→23:57)
[2018-12-08 06:08] LABS: BASOPHILS % (AUTO) 0.5 % (0.0-2.0); EOSINOPHILS % (AUTO) 2.9 % (0.0-6.0); HEMATOCRIT 31 % (33-45); HEMOGLOBIN 9.9 g/dL (11.5-14.8); LYMPHOCYTES # (AUTO) 1.4 /CMM (0.8-4.8); LYMPHOCYTES % (AUTO) 17.6 % (20.0-44.0); MEAN CORPUSCULAR HGB CONC 32 g/dl (31.0-36.0); MEAN CORPUSCULAR VOLUME 79 fL (82-100); MONOCYTES # (AUTO) 0.8 /CMM (0.1-1.30); MONOCYTES % (AUTO) 9.9 % (2.0-12.0); NEUTROPHILS # (AUTO) 5.5 /CMM (1.8-8.9); NEUTROPHILS % (AUTO) 69.1 % (43.0-81.0); PLATELET COUNT (AUTO) 149 /CMM (150-450)
[2018-12-08] MEDS: INSULIN REGULAR, HUMAN 100 UNIT/ML 3 ML VIAL SQ PRN ×3 (06:09→17:17)
[2018-12-08 06:24] LABS: ALBUMIN 1.8 g/dL (3.4-5.0); BILIRUBIN,TOTAL 0.4 mg/dL (0.2-1.0); CALCIUM, SERUM 8.3 mg/dL (8.5-10.1); CREATININE 3.1 mg/dL (0.6-1.3); MAGNESIUM 1.9 mg/dL (1.8-2.4); POTASSIUM 3.7 mmol/L (3.5-5.1); TOTAL PROTEIN, SERUM 6.7 g/dL (6.4-8.2)
--- NOTE | 2018-12-08 07:41 | NUR ---
RN BILL OPENING NOTES RECEIVED BEDSIDE REPORT. PATIENT IN BED NON-VERBAL NO SIGNS OR SYMPTOMS OF [facility]PIRATORY DIST[facility]ESS [facility] TOL[facility]ATING SETTINGS. NO ACUTE PAIN NOTED. SINUS ON THE MONITOR WITH 1ST DEGREE BBB. ANURIC. COLOSTOMY CLEAN AND INTACT. OLD GT STOMA OPEN WITH DRESSING INTACT MINIMAL DRAINAGE NOTED. NPO WITH NGT ATTACHED TO INTERMITTENT LOW SUCTION NO DRAINAGE IN CANISTER AT THIS TIME. RIGHT FEMORAL TRIPLE LUMEN RUNNING TPN BAG 5 @ 40.154 ML/HR, LIPIDS RUNNING AT 20ML/HR. ALEXSANDRA SALINE LOCK G20 INTACT. SAFETY PRECAUTIONS IN PLACE HOB ELEVATED BED IN LOW LOCKED POSITION CALL LIGHT WITHIN REACH WILL CONT TO MONITOR ACCORDINGLY.
[2018-12-08] MEDS: MIDODRINE HCL (5MG) 5 MG TABLET PO SCH ×3 (08:29→09:47)
[2018-12-08] MEDS: INSULIN GLARGINE, 100 UNIT/ML CARTRIDGE SQ SCH ×2 (08:32→17:23)
[2018-12-08] MEDS: DAKINS QUARTER STRENGTH (0.125%) 480 ML BOTTLE TOP SCH ×2 (08:33→20:07)
[2018-12-08] MEDS: Z GUARD REMEDY 2 OZ OINT TP SCH (08:34)
[2018-12-08] MEDS: HYDROGEL DRESSING 90 GM TUBE TP SCH (08:34)
[2018-12-08] MEDS ORDERED: TPN BAG #6 IV PRN ×8 (12:30)
[2018-12-08] MEDS: MEROPENEM 500 MG in IV NS 0.9% 50 ML IV SCH (17:10)
--- NOTE | 2018-12-08 19:00 | NUR ---
SPACE ENGINEER NOTES RECEIVED BEDSIDE REPORT FROM AM RN. HEMODIALYSIS NURSE AT BEDSIDE, HD CURRENTLY IN PROCESS. PER REPORT DIFLUCAN DUE AR 1800 UNABLE TO ADMINISTER D/T PT GETTING HD. ON TELE MONITOR SR WITH HR 80S. PATIENT IN BED NON-VERBAL, NO SIGNS OR SYMPTOMS OF RESPIRATORY DISTRESS ON MECH VENT TOLERATING SETTINGS. NO ACUTE PAIN NOTED. COLOSTOMY NOTED, CLEAN AND INTACT. OLD GT STOMA OPEN WITH DRESSING INTACT WITH MINIMAL DRAINAGE NOTED. PATIENT NPO WITH NGT ATTACHED TO INTERMITTENT LOW SUCTION, NO DRAINAGE IN CANISTER AT THIS TIME. SAFETY PRECAUTIONS IN PLACE; HOB ELEVATED, BED IN LOW AND LOCKED POSITION, SIDE RAILS UPX2, CALL LIGHT WITHIN REACH. WILL CONT TO MONITOR PT. Addendum: 12/08/18 at 1950 by JOSÉ MIGUEL PARKINSON RN IV SITE R FEMORAL TLC, FLUSHING AND PATENT, SITE C/D/I. IV FLUIDS RUNNING ORDERED. NO S/S OF INFILTRATION. R AV FISTULA NOTED WITH BRUIT AND THRILL, SITE C/D/I.
--- NOTE | 2018-12-08 19:07 | NUR ---
BILL CLOSING RN NOTES ENDORSED REPORT TO [facility] SHIFT NURSE JOSÉ MIGUEL. PATIENT IN BED NON-VERBAL NO SIGNS OR SYMPTOMS OF [facility]PIRATORY [facility]ESS [facility] TOL[facility] SETT[facility]. NO ACUTE PAIN NOTED. ANURIC. COLOSTOMY CLEAN AND INTACT. OLD GT STOMA OPEN WITH DRESSING INTACT MINIMAL DRAINAGE NOTED. PERFORMED WOUND CARE ORDERED. NPO WITH NGT ATTACHED TO INTERMITTENT LOW SUCTION NO DRAINAGE IN CANISTER AT THIS TIME. HEMODIALYSIS CURRENTLY IN PROCESS. SAFETY PRECAUTIONS IN PLACE HOB ELEVATED BED IN LOW LOCKED POSITION CALL LIGHT WITHIN REACH.
[2018-12-08] MEDS: FLUCONAZOLE IN NS 100 MG in PREMIX 1 EA IV SCH ×2 (19:35)
[2018-12-09] VITALS: BP 138/29
[2018-12-09] MEDS: INSULIN REGULAR, HUMAN 100 UNIT/ML 3 ML VIAL SQ PRN ×4 (00:01→17:13)
[2018-12-09 04:00] VITALS: BP 132/37
[2018-12-09] MEDS: BLOOD SUGAR DIAGNOSTIC 1 EACH STRIP IN SCH ×3 (05:49→17:10)
[2018-12-09] MEDS: MEROPENEM 500 MG in IV NS 0.9% 50 ML IV SCH ×2 (05:55→17:16)
--- NOTE | 2018-12-09 05:58 | NUR ---
PT REC'D TRACHED ON [facility] VENT ON AC MODE. NO RESP DISTRESS NOTED. TRACH IS PATENT AND SECURED. SX'D FOR THICK MOD AMT OF PALE YELLOW SECRETIONS. ALARMS ARE SET AND AUDIBLE. VENT PLUGGED INTO RED OUTLET. AMBU BAG BEDSIDE. WILL CONTINUE TO MONITOR. Addendum: 12/09/18 at 0600 by LOUISA CRUZ RT Amended: Links added.
[2018-12-09 06:35] LABS: CALCIUM, SERUM 8.8 mg/dL (8.5-10.1); PHOSPHORUS 2.9 mg/dL (2.5-4.9); POTASSIUM 3.8 mmol/L (3.5-5.1)
--- NOTE | 2018-12-09 07:00 | NUR ---
DINKEY MECHANIC CLOSING NOTES PATIENT RESTING IN BED, OBTUNDED. NO ACUTE CHANGES THROUGHOUT SHIFT. ON TELE MONITOR SR WITH HR 80S. RIGHT FEMORAL TRIPLE LUMEN CATH DRESSING CHANGED. PATIENT NPO WITH NGT ATTACHED TO INTERMITTENT LOW SUCTION, NO DRAINAGE IN CANISTER AT THIS TIME. SAFETY PRECAUTIONS MAINTAINED. PATIENT REPOSITIONED PER PROTOCOL. WOUND TX DONE ORDERED. ENDORSED TO AM RN FOR SOURAV.
--- NOTE | 2018-12-09 07:25 | NUR ---
TELE/RN OPENING NOTES RECEIVED PATIENT IN BED SLEEPING COMFORTABLY. PATIENT ABLE TO RESPOND TO TACTILE STIMULI. NO FACIAL GRIMACING OR ACUTE DISTRESS AT THIS TIME. PATIENT ON MECH VENT, ABLE TO TOLERATE CURRENT SETTINGS WELL. RESPIRATION EVEN AND UNLABORED. HOB ELEVATED AT ALL TIMES. SKIN IS DRY WARM TO TOUCH. CONTINUES ON TELE MONITOR SR WITH HR 80'S. COLOSTOMY NOTED, CLEAN AND INTACT. MINIMAL DRAINAGE NOTED ON THE OLD GT STOMA. PATIENT NPO WITH NGT ATTACHED TO INTERMITTENT LOW SUCTION, NO DRAINAGE IN CANISTER AT THIS TIME. ALL NEEDS ANTICIPATED. CALL LIGHT WITHIN REACHED. BED LOCKED AND IN LOWEST POSITION. SAFETY MAINTAINED. WILL CONTINUE TO MONITOR CLOSELY.
[2018-12-09 08:00] VITALS: BP 135/53
[2018-12-09] MEDS: MIDODRINE HCL (5MG) 5 MG TABLET PO SCH (09:00)
[2018-12-09] MEDS: INSULIN GLARGINE, 100 UNIT/ML CARTRIDGE SQ SCH ×2 (09:26→17:12)
[2018-12-09] MEDS: DAKINS QUARTER STRENGTH (0.125%) 480 ML BOTTLE TOP SCH ×2 (09:27→21:20)
[2018-12-09] MEDS: HYDROGEL DRESSING 90 GM TUBE TP SCH (09:28)
[2018-12-09] MEDS: Z GUARD REMEDY 2 OZ OINT TP SCH (09:28)
--- NOTE | 2018-12-09 09:31 | NUR ---
TELE/RN NOTES MEDICATION MIDODRINE WAS HELD DUE TO ELEVATED B/P. PATIENT REMAINS IN STABLE CONDITION. WILL CONTINUE TO MONITOR CLOSELY.
[2018-12-09] MEDS ORDERED: TPN BAG #7 IV PRN ×8 (10:30)
[2018-12-09 12:00] VITALS: BP 149/64
[2018-12-09] MEDS: MICAFUNGIN SODIUM 100 MG in IV NS 0.9% 100 ML IV SCH (13:19)
[2018-12-09 16:00] VITALS: BP_SYST 137; BP_SYST 158; BP_DIAS 63
[2018-12-09] MEDS: FAT EMULSION 20% 500 ML in PREMIX 1 EA IV SCH (17:16)
--- NOTE | 2018-12-09 18:30 | NUR ---
TELE/RN CLOSING NOTES PATIENT CONTINUES TO REMAIN IN STABLE CONDITION. PROVIDED COMFORT AND SAFETY THROUGHOUT THE SHIFT. NO FACIAL GRIMACING OR ACUTE DISTRESS AT THIS TIME. PATIENT ON MECH VENT, ABLE TO TOLERATE CURRENT SETTINGS WELL. RESPIRATION EVEN AND UNLABORED. HOB ELEVATED AT ALL TIMES. SKIN IS DRY WARM TO TOUCH. CONTINUES ON TELE MONITOR SR. TX WAS DONE. DRESSINGS ARE INTACT. PATIENT NPO WITH NGT ATTACHED TO INTERMITTENT LOW SUCTION. PATIENT ABLE TO TOLERATE TPN WELL. NO ADVERSE REACTIONS AT THIS TIME. ALL NEEDS ANTICIPATED. KEPT CLEAN AND DRY. CALL LIGHT WITHIN REACHED. BED LOCKED AND IN LOWEST POSITION. SAFETY MAINTAINED. WILL CONTINUE TO MONITOR. ENDORSED TO PM NURSE FOR SOURAV.
[2018-12-09 20:00] VITALS: BP 156/67
[2018-12-10] VITALS: BP 137/62
[2018-12-10] MEDS: INSULIN REGULAR, HUMAN 100 UNIT/ML 3 ML VIAL SQ PRN ×3 (00:19→12:09)
[2018-12-10] MEDS: BLOOD SUGAR DIAGNOSTIC 1 EACH STRIP IN SCH ×3 (00:19→12:07)
[2018-12-10 04:00] VITALS: BP 145/70
[2018-12-10] MEDS: MEROPENEM 500 MG in IV NS 0.9% 50 ML IV SCH (05:42)
[2018-12-10 06:56] LABS: CALCIUM, SERUM 8.7 mg/dL (8.5-10.1); CREATININE 3.4 mg/dL (0.6-1.3); MAGNESIUM 2.1 mg/dL (1.8-2.4); PHOSPHORUS 3.1 mg/dL (2.5-4.9)
--- NOTE | 2018-12-10 07:05 | NUR ---
PLASTER HELPER OPENING NOTES RECEIVED PT LYING ON BED,PT IS OBTUNDED AND NONVERBAL.ON [facility] VENT AND TRACH DEPEND WITH SHILEY #6,AC12 TV500 [id number]% AND PEEP-0.TOLERATING WELL.ON TELE HR IS 99 WITH SR.NO SOB AND ACUTE DISTRESS NOTED.LEFT BELOW KNEE AMPUTATION NOTED.COLOSTOMY PRESENT WITH SOFT YELLOW STOOL PRESENT.NG TUBE PRESENT ON LEFT NARES WITH LOW INTERMITTENT SUCTION PRESENT WITH GREENISH DISCOLORATION NOTED.PT TOLERATED WELL.RIGHT AV FISTULA PRESENT WITH BRUIT AND THRILL PRESENT.RIGHT FEMORAL IV CATHETER PRESENT 3 PORT WITH TPN @40ML/HR AND FAT EMULSION IS RUNNING.IV SITE IS CLEAN,DRY AND INTACT.NO INFILTRATION NOTED.BED IS IN LOW POSITION AND LOCKED.CALL LIGHT IS WITHIN REACH.WILL CONTINUE TO MONITOR THE PT CLOSELY.
[2018-12-10 08:00] VITALS: BP 150/70
[2018-12-10] MEDS: MIDODRINE HCL (5MG) 5 MG TABLET PO SCH (09:00)
[2018-12-10] MEDS: INSULIN GLARGINE, 100 UNIT/ML CARTRIDGE SQ SCH ×3 (09:32→16:35)
[2018-12-10] MEDS ORDERED: TPN BAG #8 IV PRN ×8 (10:30)
[2018-12-10] MEDS: HYDROGEL DRESSING 90 GM TUBE TP SCH (11:23)
[2018-12-10] MEDS: DAKINS QUARTER STRENGTH (0.125%) 480 ML BOTTLE TOP SCH (11:23)
[2018-12-10] MEDS: Z GUARD REMEDY 2 OZ OINT TP SCH (11:23)
[2018-12-10 12:00] VITALS: BP 120/40
[2018-12-10] MEDS: MICAFUNGIN SODIUM 100 MG in IV NS 0.9% 100 ML IV SCH (12:07)
[2018-12-10 16:00] VITALS: BP 127/58
--- NOTE | 2018-12-10 16:50 | NUR ---
RT Pt transported to sub acute room 277-1. Pt is stable. No respiratory distress noted t/o shift. Vent is plugged into red outlet w bvm @ hob. Alarms are set and audible. Will continue to monitor.
--- NOTE | 2018-12-10 16:55 | NUR ---
BINDERY CUTTER OPERATORENAMELER NOTES PT IS DISCHARGED TO SUBACUTE IN [facility] BY RHEA WITH RT AND RN AT BEDSIDE TO ROOM 277.PT IS ON BEDSIDE AMBU BAG,TOLERATED WELL.NO SOB AND ACUTE DISTRESS NOTED.PT IS CLEAN AND DRY.IV LINE IS ON LEFT UA G20,SL AND RIGHT AV FISTULA.AND ACCIDENTLY PULLED OUT THE CENTRAL LINE ON RIGHT FEMORAL WHILE TRANSFER.REPORT GIVEN TO NED [place] IN SUBACUTE.NG UBE IS IN PLACE IN LEFT NARES WITH LOW INTERMITTENT SUCTION.VITAL SIGNS CHECKED AND RECORDED.HEMODIALYSIS HAS DONE AND PT TOLERATED WELL.NO COMPLICATIONS NOTED.
== END 2018-12-10 17:26 | DRG 252 ==
LOC: ER 13:08 → TELE-TD 15:54 → TELE1 12-08 08:40
PROVIDERS: ADMIT Internal Medicine Nephrology; ATTEND Internal Medicine Nephrology
PROC: 5A1955Z Respiratory Ventilation, Greater than 96 Consecutive Hours (ICD-10-PCS; principal; 2018-12-04)
PROC: 5A1D70Z Performance of Urinary Filtration, Intermittent, Less than 6 Hours Per Day (ICD-10-PCS; principal; 2018-12-04)
PROC: 30233N1 Transfusion of Nonautologous Red Blood Cells into Peripheral Vein, Percutaneous Approach (ICD-10-PCS; 2018-12-05)
PROC: 5A1D70Z Performance of Urinary Filtration, Intermittent, Less than 6 Hours Per Day (ICD-10-PCS; 2018-12-06)
PROC: 5A1D70Z Performance of Urinary Filtration, Intermittent, Less than 6 Hours Per Day (ICD-10-PCS; 2018-12-08)
PROC: 5A1D70Z Performance of Urinary Filtration, Intermittent, Less than 6 Hours Per Day (ICD-10-PCS; 2018-12-10)
DX: K94.22 Gastrostomy infection (principal); A41.9 Sepsis, unspecified organism; G93.1 Anoxic brain damage, not elsewhere classified; I13.2 Hypertensive heart and chronic kidney disease with heart failure and with stage 5 chronic kidney disease, or end stage renal disease; Z99.11 Dependence on respirator [ventilator] status; K31.6 Fistula of stomach and duodenum; J96.10 Chronic respiratory failure, unspecified whether with hypoxia or hypercapnia; N18.6 End stage renal disease; L89.154 Pressure ulcer of sacral region, stage 4; I95.9 Hypotension, unspecified; E11.22 Type 2 diabetes mellitus with diabetic chronic kidney disease; R13.10 Dysphagia, unspecified; Z79.4 Long term (current) use of insulin; Z99.2 Dependence on renal dialysis; L30.4 Erythema intertrigo; E83.39 Other disorders of phosphorus metabolism; E87.6 Hypokalemia; Z89.612 Acquired absence of left leg above knee; L98.8 Other specified disorders of the skin and subcutaneous tissue; X58.XXXA Exposure to other specified factors, initial encounter; Y92.129 Unspecified place in nursing home as the place of occurrence of the external cause; D63.8 Anemia in other chronic diseases classified elsewhere; L90.5 Scar conditions and fibrosis of skin; E11.51 Type 2 diabetes mellitus with diabetic peripheral angiopathy without gangrene; L03.311 Cellulitis of abdominal wall; Y84.8 Other medical procedures as the cause of abnormal reaction of the patient, or of later complication, without mention of misadventure at the time of the procedure; Y73.8 Miscellaneous gastroenterology and urology devices associated with adverse incidents, not elsewhere classified; Z74.01 Bed confinement status
CPT/HCPCS: 31720; 36415; 71045-TC; 80048-TC; 80053-TC; 80076-TC; 80202-TC; 82962-TC; 83540-TC; 83605-TC; 83735-TC; 84100-TC; 84478-TC; 84484-TC; 85025-TC; 85730-TC; 86850-TC; 86921-TC; 87040-TC; 87070-TC; 87081-TC; 87186-TC; 90935-TC; 94003-TC; 94760-TC; 94762-TC; 99082-TC; A4216; A4217; A4623; A6248; A6253; A6403; A7526; G0378; J0885; J1450; J1815; J2185; J2248; J2543; J3370; J3475; J3490; J7030; J7040; J7050; J7060; P9016-BL; P9047; Q9967

== ENCOUNTER 2019-01-10 13:15 | Inpatient (IN) | payer MEDICAID ==
[~2019-01-10] VITALS: Ht 162.6 cm; Wt 86.2 kg
[~2019-01-10 13:15] MED LIST changes: -ESOM40CA GT; -HEPA50008 SQ; -HYDR-4076 GT; +MAG30ORA GT; -METO50TA16 GT; +MORP2SYR IVP; -NEOM1PAC2 TP; +NUT.237L67 GT; +OMEP20CA11 GT; +ONDA4TAB10 GT; +SUCR1TAB GT; -VANC750P7 IV
--- NOTE | 2019-01-10 13:31 | NUR ---
from [facility]: sent by PCP - low BP, H/H, high WBC. PT ON VENT/TRACH, HAS NG TUBE IN PLACE ON INTERMITTENT SUCTION, RIGHT FEMORAL LINE ACCESS, LEFT ABOVE THE KNEE AMPUTATION. RESPONDS TO VERBAL STIMULI. NO ACUTE DISTRESS NOTED. READY FOR EVAL.
--- NOTE | 2019-01-10 13:32 | NUR ---
PAGED DR MOCK
--- NOTE | 2019-01-10 13:43 | NUR ---
PAGED NURSING SUP FOR BILL BED
--- NOTE | 2019-01-10 13:51 | NUR ---
RT RECD PT TRACHED WITH SHILEY 6 FROM [facility] FOR LOW BP WITH FOLLOWING ORDERS AC 12 500 +5 40% BAG AND MASK AT HOB ALARMS ON AND AUDIBLE VENT PLUGGED IN RED OUTLET WILL CONT TO MONITOR Addendum: 01/10/19 at 1354 by LEBRON PEREZ RT Amended: Links added.
[2019-01-10] MEDS ORDERED: VANCO (14:07)
[2019-01-10] MEDS ORDERED: [UNRECOGNIZED DRUG - CODE] IV (14:07)
[2019-01-10] MEDS ORDERED: ESOM40CA IV (14:07)
[2019-01-10] MEDS ORDERED: FAT250EM13 IV (14:07)
[2019-01-10] MEDS ORDERED: PIPE2.257 IV (14:07)
[2019-01-10] MEDS ORDERED: FLUC100T8 IV (14:07)
--- NOTE | 2019-01-10 14:08 | NUR ---
F/U WITH NURSING RAT CULTURIST ON BILL BED
[2019-01-10] MEDS ORDERED: TPN ADD IV ×2 (14:14→14:59)
[2019-01-10] MEDS ORDERED: SODI480S2 MC (14:59)
[2019-01-10] MEDS ORDERED: CLOT15CR63 TP (14:59)
[2019-01-10] MEDS ORDERED: GEL100GE MC (14:59)
[2019-01-10] MEDS ORDERED: NEOM28.36 TP (14:59)
[2019-01-10] MEDS ORDERED: POVI1MED TP (14:59)
[2019-01-10] MEDS ORDERED: VANC1FRO2 IV (14:59)
--- NOTE | 2019-01-10 15:46 | NUR ---
PT RESTING IN BED WITH EYES CLOSED. NO ACUTE DISTRESS NOTED. VSS. WILL CONT TO MONITOR.
--- NOTE | 2019-01-10 16:10 | NUR ---
REPORT GIVEN TO NED SALAS FOR 113-1 T
--- NOTE | 2019-01-10 16:10 | NUR ---
TD/RN REPORT FROM ER REPORT GIVEN BY BOTH WILMER AND BAILEY FOR PT TO BE ADMITTED FOR HYPOTENSION AND ANEMIA. AWAITING FOR PT'S ARRIVAL.
--- NOTE | 2019-01-10 17:13 | NUR ---
PT TRANSPORTED TO [facility] IN GUARDED CONDITION VIA ACLS PROTOCOL WITH RT
[2019-01-10 17:25] VITALS: BP 122/53
--- NOTE | 2019-01-10 17:25 | NUR ---
TD/RESEARCH GROUP DIRECTOR - 113#1 PT ARRIVED VIA GURNEY ACCOMPANIED BY ER TRANSPORT PERSONNEL AND RESPIRATORY THERAPIST. PT OBTUNDED, OPEN EYES. PT PLACED ON VENT SET RATES PRESCRIBED, SATURATING @ 100%, LUNG SOUNDS CLEAR, SUCTIONED FOR AIRWAY CLEARANCE, RESPIRATIONS EVEN & UNLABORED. TELE BOX PLACED, SINUS RHYTHM, HR 72. PT ARRIVED WITH ON GOING TPN INFUSION BAG #40 @ 65CC/HR, CENTRAL LINE ON RIGHT GROIN PATENT WITH NO S/S OF INFECTION AND AV SHUNT ON RIGHT FOREARM POSITIVE OF THRILL & BRUIT. RIGHT NARE NG-TUBE INTACT PLACED ON LOW INTERMITTENT INTERMITTENT SUCTIONING. COLOSTOMY BAG IN PLACE WITH DARK BROWN LIQUID OUTPUT. ADMISSION PROTOCOLS IN PROGRESS. CL WITHIN REACHED, SAFETY MAINTAINED AND ISOLATION OBSERVED. ON GOING MONITORING.
[2019-01-10 17:30] VITALS: BP 122/53
[2019-01-10] MEDS ORDERED: FEE PK DOSING 1 MIN EA MC ONE (18:20)
[2019-01-10] MEDS ORDERED: DEXTROSE 50%-WATER 50 ML DISP.SYRIN IV PRN (18:30)
[2019-01-10] MEDS ORDERED: INSULIN REGULAR, HUMAN 100 UNIT/ML 3 ML VIAL SQ PRN (18:30)
[2019-01-10] MEDS ORDERED: FAT EMULSIONS IV SCH (18:30)
[2019-01-10] MEDS ORDERED: TPN BAG #40 IV PRN ×6 (18:30)
[2019-01-10] MEDS ORDERED: AMINO ACIDS IV SCH (18:30)
[2019-01-10] MEDS ORDERED: ZOLPIDEM TARTRATE 5 MG TABLET PO PRN (18:30)
[2019-01-10] MEDS ORDERED: ACETAMINOPHEN 325 MG TABLET PO PRN (18:30)
[2019-01-10] MEDS ORDERED: ONDANSETRON HCL/PF 4 MG/2 ML VIAL IVP PRN (18:30)
[2019-01-10] MEDS ORDERED: TPN BAG #41 IV PRN ×8 (18:30)
[2019-01-10] MEDS ORDERED: [UNRECOGNIZED DRUG - OTHER] IV SCH (18:30)
[2019-01-10] MEDS: IPRATROPIUM NEB FS 0.5 MG/2.5 ML AMPUL.NEB IH SCH (19:11)
[2019-01-10] MEDS: ALBUTEROL FS 2.5 MG/3 ML VIAL.NEB NEB SCH (19:12)
--- NOTE | 2019-01-10 19:30 | NUR ---
BILL RN NOTE RECEIVED PT WITH OPEN EYES AND NO TRACKING. ON MECH VENT WITH SETTINGS WELL TOLERATED. HOB ELEVATED AND ON ASPIRATION PRECAUTIONS. NG TUBE IN PLACE AND SET TO LOW INTERMITTENT SUCTION. ISOLATION PRECAUTIONS OBSERVED. COCO AV SHUNT POSITIVE FOR THRILL AND BRUIT. R FEMORAL TLC WITH TPN BAG #40 INFUSING. WILL CONTINUE TO MONITOR.
--- NOTE | 2019-01-10 19:43 | NUR ---
PT RECEIVED ON [place] VENT ON THE FOLLOWING NOTED SETTINGS: AC 12, 500, 40%, +0. PT SX'D. NO RESP DISTRESS OR SOB NOTED AT THIS TIME. PT'S TRACH IS PATENT AND SECURE. BREATHING TX GIVEN, NO ADVERSE REACTIONS NOTED. VENT IS PLUGGED INTO RED OUTLET AND ALARMS ARE ON AND AUDIBLE. AMBU BAG AND SPARE TRACH ARE AT BEDSIDE. WILL CONT TO MONITOR PT. Addendum: 01/10/19 at 1946 by SHANI PEÑA RT Amended: Links added.
[2019-01-10 20:00] VITALS: BP 145/52
--- NOTE | 2019-01-10 20:23 | NUR ---
TD/RN AM SHIFT END NOTES NO ACUTE CHANGE OF CONDITION NOTED SINCE PT WAS ADMITTED LATE THIS AFTERNOON. PT ENDORSED TO PM NURSE TO CONTINUE CARE. CL WITHIN REACHED, SAFETY MAINTAINED AND ISOLATION OBSERVED.
[2019-01-10] MEDS ORDERED: PIPERACILLIN IV SCH (21:00)
[2019-01-10] MEDS ORDERED: TAZOBACTAM IV SCH (21:00)
[2019-01-10] MEDS ORDERED: [UNRECOGNIZED DRUG - OTHER] IV SCH (21:00)
[2019-01-10] MEDS ORDERED: Z GUARD REMEDY 2 OZ OINT TP SCH (21:00)
[2019-01-10] MEDS ORDERED: SODIUM CHLORIDE IV SCH (21:00)
[2019-01-10] MEDS ORDERED: [UNRECOGNIZED DRUG - OTHER] IV SCH (21:00)
[2019-01-10] MEDS ORDERED: POTASSIUM PHOSPHATE IV SCH (21:00)
[2019-01-10] MEDS: MEROPENEM 500 MG in IV NS 0.9% 50 ML IV SCH (21:28)
[2019-01-10] MEDS: INSULIN GLARGINE, 100 UNIT/ML CARTRIDGE SQ SCH (23:28)
[2019-01-10] MEDS: BLOOD SUGAR DIAGNOSTIC 1 EACH STRIP IN SCH (23:28)
[2019-01-10] MEDS: FLUCONAZOLE (100 MG) 100 MG TABLET GT SCH (23:31)
[2019-01-11] VITALS: BP 134/52
[2019-01-11] MEDS: INSULIN REGULAR, HUMAN 100 UNIT/ML 3 ML VIAL SQ PRN ×4 (00:41→17:33)
[2019-01-11] MEDS: ALBUTEROL FS 2.5 MG/3 ML VIAL.NEB NEB SCH ×4 (00:56→20:08)
[2019-01-11] MEDS: IPRATROPIUM NEB FS 0.5 MG/2.5 ML AMPUL.NEB IH SCH ×4 (00:56→20:08)
[2019-01-11 04:00] VITALS: BP_SYST 134; BP_SYST 143; BP_DIAS 52; BP_DIAS 55
[2019-01-11] MEDS ORDERED: VANCOMYCIN 500 MG in IV D5W 100 ML IV PRN (06:00)
[2019-01-11] MEDS: BLOOD SUGAR DIAGNOSTIC 1 EACH STRIP IN SCH ×4 (06:22→23:34)
[2019-01-11 06:42] LABS: CALCIUM, SERUM 7.8 mg/dL (8.5-10.1); CREATININE 3.2 mg/dL (0.6-1.3); POTASSIUM 4.2 mmol/L (3.5-5.1)
--- NOTE | 2019-01-11 07:00 | NUR ---
RN NOTE RECEIVED PT ON BED, WITH OPEN EYES AND NO TRACKING. VENT/ TRACH DEPENDENT, TRACH CARE DONE, TOLERATING CURRENT VENT SETTING WELL, ON TELE SR HR IN 60S ', HOB ELEVATED AND ON ASPIRATION PRECAUTIONS. NG TUBE IN PLACE AND SET TO LOW INTERMITTENT SUCTION. ISOLATION PRECAUTIONS OBSERVED. R UA AV SHUNT POSITIVE FOR THRILL AND BRUIT. R FEMORAL TLC WITH TPN AT 65CC /HR INFUSING. COLOSTOMY LEO INTACT , SR UP x3, CALL LIGHT WITHIN EASY REACH, BED LOCKED AND IN LOWEST POSITION, WILL CONTINUE TO MONITOR.
--- NOTE | 2019-01-11 07:55 | NUR ---
BILL RN NOTE SPOKE WITH NATALIE ROMEO FOR CONSENT FOR BLOOD TRANSFUSION AND INITIAL HEMODIALYSIS.
[2019-01-11 08:00] VITALS: BP_SYST 135; BP_SYST 150; BP_DIAS 50; BP_DIAS 54
[2019-01-11] MEDS: NEXIUM 40 MG VIAL IV SCH ×2 (08:22→20:48)
[2019-01-11] MEDS: MEROPENEM 500 MG in IV NS 0.9% 50 ML IV SCH ×2 (08:22→20:47)
[2019-01-11] MEDS: MIDODRINE HCL (5MG) 5 MG TABLET GT SCH (08:23)
[2019-01-11] MEDS: NEOMY SULF/BACITRAC ZN/POLY 15 GM TUBE TP SCH ×2 (08:24→20:50)
[2019-01-11] MEDS: Z GUARD REMEDY 2 OZ OINT TP PRN (08:26)
[2019-01-11] MEDS: DAKINS HALF STRENGTH (0.25%) 480 ML BOTTLE MC SCH (08:26)
[2019-01-11] MEDS ORDERED: POVIDONE-IODINE OINT 28.4 GM TUBE TP SCH (09:00)
[2019-01-11 09:01] LABS: BASOPHILS % (AUTO) 0.3 % (0.0-2.0); EOSINOPHILS % (AUTO) 2.9 % (0.0-6.0); HEMATOCRIT 25 % (33-45); HEMOGLOBIN 7.8 g/dL (11.5-14.8); LYMPHOCYTES # (AUTO) 1.7 /CMM (0.8-4.8); MEAN CORPUSCULAR HGB CONC 31 g/dl (31.0-36.0); MEAN CORPUSCULAR VOLUME 83 fL (82-100); MONOCYTES # (AUTO) 0.8 /CMM (0.1-1.30); MONOCYTES % (AUTO) 8.1 % (2.0-12.0); NEUTROPHILS # (AUTO) 6.6 /CMM (1.8-8.9); NEUTROPHILS % (AUTO) 70.7 % (43.0-81.0); PLATELET COUNT (AUTO) 98 /CMM (150-450); RED BLOOD CELL COUNT(AUTO) 3.06 MIL/uL (4.0-5.2); WHITE BLOOD COUNT (AUTO) 9.4 K/uL (4.3-11.0)
[2019-01-11] MEDS: HYDROGEL DRESSING 90 GM TUBE TP SCH (09:27)
[2019-01-11] MEDS: CLOTRIMAZOLE 1% CREAM 24 GM TUBE TP SCH (09:27)
[2019-01-11 09:33] LABS: ABG BASE EXCESS -3.6 mmol/L; ABG OXYGEN SATURATION 98.4 % (92.0-98.5); ABG PCO2 37.3 mmHg (35.0-45.0); ABG PH 7.374 (7.350-7.450); ABG PO2 135.4 mmHg (75.0-100.0); AaDO2 106.9 mmHg; COHb 0.6 % (0.5-1.5); O2Hb 96.8 % (94.0-97.0); PEEP,BG 0 cm H2O; SITE, ABG Left Brachial; VT, ABG 500 mL
[2019-01-11 12:00] VITALS: BP 142/44
[2019-01-11] MEDS ORDERED: TPN BAG #42 IV PRN ×6 (12:00)
--- NOTE | 2019-01-11 12:10 | NUR ---
RN NOTES DR MOCK NOTIFED REGARDING H/H 7.01/02 , BLOOD TRANSFUSION CANCELLED PER MD ORDER . CONTINUE TO MONITOR .
[2019-01-11 12:24] LABS: MAGNESIUM 2.1 mg/dL (1.8-2.4); PHOSPHORUS 3.3 mg/dL (2.5-4.9)
[2019-01-11] MEDS ORDERED: FEE TPN 1 MIN EA MC ONE (13:49)
[2019-01-11] MEDS ORDERED: VANCOMYCIN 1 GM in IV D5W 250 ML IV ONE (15:00)
--- NOTE | 2019-01-11 15:00 | NUR ---
RN NOTES PT RECEIVING HD AT THIS TIME .
[2019-01-11 16:00] VITALS: BP_SYST 142; BP_SYST 159; BP_DIAS 44; BP_DIAS 50
--- NOTE | 2019-01-11 18:00 | NUR ---
RN NOTES VSS STABLE, TPN AT 65CC /HR RUNNING VIA R FEMORAL TLC, NGT TO LIS, WITH GREENISH GASTRIC DRAINING , COLOSTOMY INTACT , NO SIGNIFICANT CHANGES NOTED ON THIS SHIFT, WILL ENDORSE TO JULIAN SHIFT NURSE FOR CONTINUITY OF CARE .
[2019-01-11 20:00] VITALS: BP 169/60
[2019-01-11] MEDS ORDERED: LEVOFLOXACIN 250 MG /D5W 50 ML 250 MG in PREMIX 1 EA IV SCH (20:00)
--- NOTE | 2019-01-11 20:00 | NUR ---
RN NOTES - RECEIVED PT ON BED, WITH OPEN EYES AND NO TRACKING. VENT/ TRACH DEPENDENT, TRACH CARE DONE, TOLERATING CURRENT VENT SETTING WELL, ON TELE SR. HOB ELEVATED AND ON ASPIRATION PRECAUTIONS. NG TUBE IN PLACE AND SET TO LOW INTERMITTENT SUCTION. ISOLATION PRECAUTIONS OBSERVED. R UA AV SHUNT POSITIVE FOR THRILL AND BRUIT. R FEMORAL TLC WITH TPN AT 65CC /HR INFUSING. COLOSTOMY LEO INTACT , SR UP x3, CALL LIGHT WITHIN EASY REACH, BED LOCKED AND IN LOWEST POSITION, WILL CONTINUE TO MONITOR.
[2019-01-11] MEDS: INSULIN GLARGINE, 100 UNIT/ML CARTRIDGE SQ SCH (22:02)
[2019-01-11] MEDS: FLUCONAZOLE (100 MG) 100 MG TABLET GT SCH (23:16)
[2019-01-12] VITALS: BP 141/63
[2019-01-12] MEDS: ALBUTEROL FS 2.5 MG/3 ML VIAL.NEB NEB SCH ×4 (01:35→19:48)
[2019-01-12] MEDS: IPRATROPIUM NEB FS 0.5 MG/2.5 ML AMPUL.NEB IH SCH ×4 (01:35→19:48)
[2019-01-12 04:00] VITALS: BP 160/62
[2019-01-12 06:32] LABS: CALCIUM, SERUM 7.8 mg/dL (8.5-10.1); CREATININE 2.5 mg/dL (0.6-1.3); PHOSPHORUS 2.7 mg/dL (2.5-4.9); POTASSIUM 3.9 mmol/L (3.5-5.1)
[2019-01-12] MEDS: BLOOD SUGAR DIAGNOSTIC 1 EACH STRIP IN SCH ×3 (06:47→17:25)
[2019-01-12] MEDS: INSULIN REGULAR, HUMAN 100 UNIT/ML 3 ML VIAL SQ PRN ×3 (06:54→17:26)
--- NOTE | 2019-01-12 07:35 | NUR ---
TURPENTINER OPENING NOTES RECEIVED REPORT FROM PM NURSE. PT IN BED. OPEN EYES AND NO TRACKING. VENT/ TRACH DEPENDENT, TOLERATING CURRENT VENT SETTING WELL, ON TELEMONITOR SR WITH HR 78. HOB ELEVATED AND ON ASPIRATION PRECAUTIONS. NG TUBE IN PLACE AND SET TO LOW INTERMITTENT SUCTION. ISOLATION PRECAUTIONS OBSERVED. R UA AV SHUNT POSITIVE FOR THRILL AND BRUIT. R FEMORAL TLC WITH TPN AT 65CC /HR INFUSING. COLOSTOMY LEO INTACT , SR UP x3, CALL LIGHT WITHIN EASY REACH, BED LOCKED AND IN LOWEST POSITION, WILL CONTINUE TO MONITOR.
[2019-01-12 08:00] VITALS: BP 149/68
[2019-01-12] MEDS: MIDODRINE HCL (5MG) 5 MG TABLET GT SCH (09:00)
[2019-01-12] MEDS: NEXIUM 40 MG VIAL IV SCH ×2 (09:26→21:56)
[2019-01-12] MEDS: MEROPENEM 500 MG in IV NS 0.9% 50 ML IV SCH ×2 (09:26→21:57)
[2019-01-12] MEDS: Z GUARD REMEDY 2 OZ OINT TP PRN (09:30)
[2019-01-12] MEDS: HYDROGEL DRESSING 90 GM TUBE TP SCH (09:31)
[2019-01-12] MEDS: CLOTRIMAZOLE 1% CREAM 24 GM TUBE TP SCH (09:31)
[2019-01-12] MEDS: NEOMY SULF/BACITRAC ZN/POLY 15 GM TUBE TP SCH ×2 (09:31→21:58)
[2019-01-12] MEDS: DAKINS HALF STRENGTH (0.25%) 480 ML BOTTLE MC SCH (09:32)
--- NOTE | 2019-01-12 11:45 | NUR ---
WOUND CARE CONSULT WOUND CARE RECEIVED CONSULT FOR SYLVIA SCORE OF 9, WOUNDS IN BREAST FOLD, ABDOMEN AND COCCYX. WOUND CARE WILL DEFER CONSULT AND TREATMENT PLANS TO PLASTIC SURGICAL TEAM WHO ARE CURRENTLY FOLLOWING THIS PATIENT. PATIENT WITH SYLVIA AT 9, ALL PRESSURE ULCER PREVENTION MEASURES ARE NOTED TO BE IN PLACE AT THIS TIME. WILL SEE PRN.
[2019-01-12 12:00] VITALS: BP 125/80
[2019-01-12] MEDS ORDERED: TPN BAG #43 IV PRN ×8 (12:30)
[2019-01-12] MEDS ORDERED: TPN BAG #44 IV PRN ×6 (13:00)
--- NOTE | 2019-01-12 15:00 | NUR ---
LCSW NOTE RECEIVED VERBAL CONSENT FROM NATALIE FOR SERIAL WOUND DEBRIDEMENT OF SCARUM AND R INDEX FINGER.CONFIRMED BY 2 RN.
[2019-01-12 16:00] VITALS: BP 123/75
--- NOTE | 2019-01-12 19:34 | NUR ---
HOSPICE RN CLOSING NOTE ENDORSED PATIENT TO PM NURSE FOR SOURAV.PATIENT IN STABLE CONDITION.OBTUNDED.IV LINES ARE INTACT AND PATENT.SAFETY AND ASPIRATION PRECAUTIONS IN PLACE.
--- NOTE | 2019-01-12 19:55 | NUR ---
SHORTHAND TEACHER OPENING NOTES RECEIVED REPORT FROM MAGGY MARINO. PATIENT NON-VERBAL BUT RESPONSIVE TO VERBAL & TACTILE STIMULI. BREATHING EVEN & UNLABORED W/ TRACH INTACT & TOLERATING VENT SETTINGS. NO S/S OF RESPIRATORY DISTRESS NOTED.. ON TELE W/ SINUS RHYTHM, HR 80S. RIGHT FEMORAL TLC INTACT & PATENT W/ DRESSING CDI & TPN INFUSING WELL @ 65 ML/HR. RIGHT UPPER ARM AV SHUNT INTACT W/ NO S/S OF COMPLICATIONS. COLOSTOMY BAGS IN PLACE & RIGHT NARE NGT PATENT & CONNECTED TO CONTINUOUS SUCTION W/ DARK, GREEN DRAINAGE NOTED. NO S/S OF PAIN OR DISCOMFORT @ THIS TIME. TURNED & REPOSITIONED FOR COMFORT W/ HOB ELEVATED FOR ASPIRATION PRECAUTIONS. WILL CONTINUE TO MONITOR.
[2019-01-12 20:00] VITALS: BP 130/64
[2019-01-12] MEDS: INSULIN GLARGINE, 100 UNIT/ML CARTRIDGE SQ SCH (21:58)
[2019-01-12] MEDS: FLUCONAZOLE (100 MG) 100 MG TABLET GT SCH (22:06)
[2019-01-13] VITALS (7 sets, daily range): BP systolic 121–163; BP diastolic 43–81
[2019-01-13] MEDS: INSULIN REGULAR, HUMAN 100 UNIT/ML 3 ML VIAL SQ PRN ×3 (00:11→12:10)
[2019-01-13] MEDS: BLOOD SUGAR DIAGNOSTIC 1 EACH STRIP IN SCH ×4 (00:11→17:47)
[2019-01-13] MEDS: ALBUTEROL FS 2.5 MG/3 ML VIAL.NEB NEB SCH ×4 (01:17→19:17)
[2019-01-13] MEDS: IPRATROPIUM NEB FS 0.5 MG/2.5 ML AMPUL.NEB IH SCH ×4 (01:17→19:17)
[2019-01-13 06:22] LABS: BASOPHILS % (AUTO) 0.7 % (0.0-2.0); EOSINOPHILS % (AUTO) 5.6 % (0.0-6.0); HEMATOCRIT 23 % (33-45); HEMOGLOBIN 7.2 g/dL (11.5-14.8); LYMPHOCYTES # (AUTO) 1.2 /CMM (0.8-4.8); LYMPHOCYTES % (AUTO) 22.1 % (20.0-44.0); MEAN CORPUSCULAR HGB CONC 31 g/dl (31.0-36.0); MEAN CORPUSCULAR VOLUME 82 fL (82-100); MONOCYTES # (AUTO) 0.4 /CMM (0.1-1.30); NEUTROPHILS # (AUTO) 3.3 /CMM (1.8-8.9); NEUTROPHILS % (AUTO) 63.6 % (43.0-81.0); RED BLOOD CELL COUNT(AUTO) 2.86 MIL/uL (4.0-5.2); WHITE BLOOD COUNT (AUTO) 5.2 K/uL (4.3-11.0)
[2019-01-13 06:52] LABS: ALBUMIN 1.7 g/dL (3.4-5.0); BILIRUBIN,TOTAL 0.5 mg/dL (0.2-1.0); CALCIUM, SERUM 7.5 mg/dL (8.5-10.1); CREATININE 3.3 mg/dL (0.6-1.3); POTASSIUM 3.8 mmol/L (3.5-5.1); TOTAL PROTEIN, SERUM 6.6 g/dL (6.4-8.2)
--- NOTE | 2019-01-13 07:35 | NUR ---
ORTHO ASSISTANT OPENING NOTES RECEIVED REPORT PM NURSE. PATIENT NON-VERBAL BUT RESPONSIVE TO VERBAL & TACTILE STIMULI. BREATHING EVEN & UNLABORED W/ TRACH INTACT & TOLERATING VENT SETTINGS. NO S/S OF RESPIRATORY DISTRESS NOTED.. ON TELE W/ SINUS RHYTHM, HR 88. RIGHT FEMORAL TLC INTACT & PATENT W/ DRESSING CDI & TPN INFUSING WELL @ 65 ML/HR. RIGHT UPPER ARM AV SHUNT INTACT W/ NO S/S OF COMPLICATIONS. COLOSTOMY BAG IN PLACE & RIGHT NARE NGT PATENT & CONNECTED TO CONTINUOUS SUCTION W/ DARK, GREEN DRAINAGE NOTED. NO S/S OF PAIN OR DISCOMFORT @ THIS TIME. SAFETY AND ASPIRATION PRECAUTIONS IN PLACE.BED ALARM ON.SRX3.WILL CONTINUE TO MONITOR.
[2019-01-13 08:01] LABS: EOSINOPHILS % (MANUAL) 8 % (0-4); LYMPHOCYTES % (MANUAL) 23 % (16-48); MONOCYTES % (MANUAL) 9 % (0-11.0); NEUTROPHILS % (MANUAL) 60 (42-76)
[2019-01-13] MEDS: MIDODRINE HCL (5MG) 5 MG TABLET GT SCH (08:10)
[2019-01-13] MEDS: NEXIUM 40 MG VIAL IV SCH ×2 (08:11→21:26)
[2019-01-13] MEDS: MEROPENEM 500 MG in IV NS 0.9% 50 ML IV SCH (08:11)
[2019-01-13] MEDS: NEOMY SULF/BACITRAC ZN/POLY 15 GM TUBE TP SCH ×2 (08:14→21:27)
[2019-01-13] MEDS: CLOTRIMAZOLE 1% CREAM 24 GM TUBE TP SCH (08:14)
[2019-01-13] MEDS: HYDROGEL DRESSING 90 GM TUBE TP SCH (08:14)
[2019-01-13] MEDS: DAKINS HALF STRENGTH (0.25%) 480 ML BOTTLE MC SCH (08:14)
--- NOTE | 2019-01-13 09:30 | NUR ---
GREEN BUILDING DESIGN SPECIALIST NOTE MIDODRINE NOT ADMINISTERED.BP IS 128/62.
[2019-01-13 09:40] LABS: PLATELET COUNT (AUTO) 97 /CMM (150-450)
--- NOTE | 2019-01-13 09:45 | NUR ---
FISHERIES TECHNICAL OFFICER NOTE SEEN BY UPDATED ABOUT PATIENT CONDITION.GOT NEW ORDER FOR BLOOD TRANSFUSION.
[2019-01-13] MEDS ORDERED: TPN IV PRN ×6 (11:30)
[2019-01-13] MEDS ORDERED: TPN BAG #45 IV PRN ×8 (11:30)
--- NOTE | 2019-01-13 12:59 | NUR ---
PLASTER LATHER NOTE BLOOD TRANSFUSION STARTED,VERIFIED WITH 2 RN.GIVEN TO DIALYSIS NURSE FOR TRANSFUSION.
--- NOTE | 2019-01-13 14:45 | NUR ---
OIL CHANGE TECHNICIAN NOTE BLOOD TRANSFUSION DONE WITH DIALYSIS,COMPLETED @4037.NO S/S OF RECATIONS NOTED .V/S STABLE.WILL CONTINUE TO MONITOR.
--- NOTE | 2019-01-13 19:20 | NUR ---
INSIDE SALES MANAGER CLOSING NOTES PATIENT NON-VERBAL BUT RESPONSIVE TO VERBAL & TACTILE STIMULI. BREATHING EVEN & UNLABORED W/ TRACH INTACT & TOLERATING VENT SETTINGS. NO S/S OF RESPIRATORY DISTRESS NOTED.. ON TELE W/ SINUS RHYTHM. RIGHT FEMORAL TLC INTACT & PATENT W/ DRESSING CDI & TPN INFUSING WELL @ 65 ML/HR. RIGHT UPPER ARM AV SHUNT INTACT W/ NO S/S OF COMPLICATIONS.S/P DIALYSIS. COLOSTOMY BAG IN PLACE WITH DARK GREEN OUTPUT & RIGHT NARE NGT PATENT & CONNECTED TO CONTINUOUS SUCTION W/ DARK, GREEN DRAINAGE NOTED. NO S/S OF PAIN OR DISCOMFORT @ THIS TIME. SAFETY AND ASPIRATION PRECAUTIONS IN PLACE.BED ALARM ON.SRX3.ENDORSED TO PM NURSE FOR SOURAV.
--- NOTE | 2019-01-13 19:54 | NUR ---
BOILER BLOWER OPENING NOTES RECEIVED REPORT FROM MAGGY MARINO. PATIENT NON-VERBAL BUT RESPONSIVE TO VERBAL & TACTILE STIMULI. BREATHING EVEN & UNLABORED W/ TRACH INTACT & TOLERATING VENT SETTINGS. NO S/S OF RESPIRATORY DISTRESS NOTED. ON TELE W/ SINUS RHYTHM, HR 80S. RIGHT FEMORAL TLC INTACT & PATENT W/ DRESSING CDI & TPN INFUSING WELL @ 65 ML/HR. RIGHT UPPER ARM AV SHUNT INTACT W/ NO S/S OF COMPLICATIONS. COLOSTOMY BAGS IN PLACE & RIGHT NARE NGT PATENT & CONNECTED TO CONTINUOUS SUCTION W/ DARK, GREEN DRAINAGE NOTED. NO S/S OF PAIN OR DISCOMFORT @ THIS TIME. TURNED & REPOSITIONED FOR COMFORT W/ HOB ELEVATED FOR ASPIRATION PRECAUTIONS. WILL CONTINUE TO MONITOR.
[2019-01-13] MEDS ORDERED: COLISTIMETHATE SODIUM 100 MG in IV NS 0.9% 50 ML IV SCH (20:00)
[2019-01-13] MEDS: INSULIN GLARGINE, 100 UNIT/ML CARTRIDGE SQ SCH (21:29)
[2019-01-14] VITALS: BP 145/87
[2019-01-14] MEDS: BLOOD SUGAR DIAGNOSTIC 1 EACH STRIP IN SCH ×3 (00:11→11:23)
[2019-01-14] MEDS: INSULIN REGULAR, HUMAN 100 UNIT/ML 3 ML VIAL SQ PRN ×3 (00:13→11:27)
[2019-01-14] MEDS: ALBUTEROL FS 2.5 MG/3 ML VIAL.NEB NEB SCH ×3 (01:20→14:36)
[2019-01-14] MEDS: IPRATROPIUM NEB FS 0.5 MG/2.5 ML AMPUL.NEB IH SCH ×3 (01:20→14:36)
[2019-01-14 04:00] VITALS: BP 142/62
[2019-01-14 06:29] LABS: BASOPHILS % (AUTO) 0.6 % (0.0-2.0); HEMATOCRIT 27 % (33-45); HEMOGLOBIN 8.2 g/dL (11.5-14.8); LYMPHOCYTES # (AUTO) 1.3 /CMM (0.8-4.8); LYMPHOCYTES % (AUTO) 28.5 % (20.0-44.0); MEAN CORPUSCULAR HGB CONC 31 g/dl (31.0-36.0); MEAN CORPUSCULAR VOLUME 83 fL (82-100); MONOCYTES # (AUTO) 0.4 /CMM (0.1-1.30); MONOCYTES % (AUTO) 8.6 % (2.0-12.0); NEUTROPHILS # (AUTO) 2.6 /CMM (1.8-8.9); NEUTROPHILS % (AUTO) 55.3 % (43.0-81.0); PLATELET COUNT (AUTO) 90 /CMM (150-450); RED BLOOD CELL COUNT(AUTO) 3.21 MIL/uL (4.0-5.2); WHITE BLOOD COUNT (AUTO) 4.7 K/uL (4.3-11.0)
[2019-01-14 06:51] LABS: CREATININE 2.7 mg/dL (0.6-1.3); PHOSPHORUS 3.2 mg/dL (2.5-4.9); POTASSIUM 3.9 mmol/L (3.5-5.1)
[2019-01-14] MEDS ORDERED: COLI150V12 IJ (07:24)
[2019-01-14 08:00] VITALS: BP 124/62
--- NOTE | 2019-01-14 08:45 | NUR ---
RT RECEIVED PT TRACH'D ON [facility] VENT PER MD ORDER. TURNER MACHINE OPERATOR DONE. SPARE TRACH AND AMBU BAG PLACED AT HEAD OF BED. ALARMS ON AND FUNCTIONING PROPERLY. VENT PLUGGED INTO RED OUTLET. SUCTIONED SMALL AMOUNTS OF THICK, PALE YELLOW SECRETIONS. TX GIVEN ORDERED. NO ADVERSE REACTIONS OBSERVED. NO SOB NOTED AT THIS TIME. WILL CONTINUE TO MONITOR THE PT FOR ANY CHANGES. Addendum: 01/14/19 at 0949 by JAVON STANLEY RT Amended: Links added.
[2019-01-14] MEDS: NEOMY SULF/BACITRAC ZN/POLY 15 GM TUBE TP SCH (08:51)
[2019-01-14] MEDS: CLOTRIMAZOLE 1% CREAM 24 GM TUBE TP SCH (08:51)
[2019-01-14] MEDS: DAKINS HALF STRENGTH (0.25%) 480 ML BOTTLE MC SCH (08:51)
[2019-01-14] MEDS: HYDROGEL DRESSING 90 GM TUBE TP SCH (08:52)
[2019-01-14] MEDS: NEXIUM 40 MG VIAL IV SCH (08:55)
[2019-01-14] MEDS: MIDODRINE HCL (5MG) 5 MG TABLET GT SCH (08:58)
[2019-01-14] MEDS ORDERED: TPN IV PRN ×14 (11:30→20:00)
[2019-01-14 12:00] VITALS: BP 135/38
[2019-01-14] MEDS ORDERED: FAT EMULSION 20% 500 ML in PREMIX 1 EA IV SCH (12:00)
--- NOTE | 2019-01-14 14:34 | NUR ---
RN NOTE PT D/C TO SUBACUTE ROOM 277-1, REPORT GIVEN TO NOELLE HINTON STABLE, R FEMORAL CATHETER IN PLACE WITH TPN AND LIPIDS INFUSING. NGT CLAMPED, REPORTED THAT NEED TO KEEP IN SUCTION, PT WILL CONTINUE TPN AND ANTIBIOTIC, IN SUBACUTE PER DR MOCK. PER DR MOCK GI MD WILL FOLLOW UP IN SUBACUTE. DISCHARGE INSTRUCTIONS INCLUDED, EXIT CARE DONE, MEDICATION LIST PROVIDED. R AV SHUNT INTACT, TRANSPORTED WITH RT AND WELDING MACHINE OPERATOR ARC.
== END 2019-01-14 14:20 | DRG 710 ==
LOC: ER 13:22 → TELE-TD 16:27 → TELE1 01-11 11:00
PROVIDERS: ADMIT Internal Medicine; ATTEND Internal Medicine
PROC: 5A1945Z Respiratory Ventilation, 24-96 Consecutive Hours (ICD-10-PCS; principal; 2019-01-10)
PROC: 0KBC0ZZ Excision of Right Hand Muscle, Open Approach (ICD-10-PCS; 2019-01-12)
PROC: 5A1D70Z Performance of Urinary Filtration, Intermittent, Less than 6 Hours Per Day (ICD-10-PCS; 2019-01-13)
PROC: 30233N1 Transfusion of Nonautologous Red Blood Cells into Peripheral Vein, Percutaneous Approach (ICD-10-PCS; 2019-01-13)
DX: A41.9 Sepsis, unspecified organism (principal); J96.21 Acute and chronic respiratory failure with hypoxia; G93.1 Anoxic brain damage, not elsewhere classified; R40.3 Persistent vegetative state; Z99.11 Dependence on respirator [ventilator] status; L89.154 Pressure ulcer of sacral region, stage 4; E11.22 Type 2 diabetes mellitus with diabetic chronic kidney disease; D69.6 Thrombocytopenia, unspecified; E11.51 Type 2 diabetes mellitus with diabetic peripheral angiopathy without gangrene; I95.9 Hypotension, unspecified; D64.9 Anemia, unspecified; S61.200A Unspecified open wound of right index finger without damage to nail, initial encounter; I12.0 Hypertensive chronic kidney disease with stage 5 chronic kidney disease or end stage renal disease; Y92.129 Unspecified place in nursing home as the place of occurrence of the external cause; N18.6 End stage renal disease; Z99.2 Dependence on renal dialysis; L30.4 Erythema intertrigo; Z79.4 Long term (current) use of insulin; Z93.3 Colostomy status; Z89.612 Acquired absence of left leg above knee; L90.5 Scar conditions and fibrosis of skin; S90.821A Blister (nonthermal), right foot, initial encounter; X58.XXXA Exposure to other specified factors, initial encounter; Y93.9 Activity, unspecified; Z74.01 Bed confinement status; E86.9 Volume depletion, unspecified
CPT/HCPCS: 31720; 36415; 36600; 80048-TC; 80053-TC; 80061-TC; 80202-TC; 82803-TC; 82962-TC; 83735-TC; 84100-TC; 85025-TC; 86850-TC; 86921-TC; 87040-TC; 87081-TC; 90935-TC; 94002-TC; 94003-TC; 94760-TC; 94762-TC; 94799-TC; 99082-TC; A4216; A4623; A6248; A6253; A6403; A7526; G0378; J0770; J1815; J1956; J2185; J3370; J3475; J3480; J3490; J7030; J7050; J7060; P9016-BL

== ENCOUNTER 2019-02-05 12:30 | Inpatient (IN) | payer MEDICAID ==
[2019-02-05] VITALS (37 sets, daily range): BP systolic 55–137; BP diastolic 30–63
[~2019-02-05] VITALS: Ht 152.4 cm; Wt 90.3 kg
[~2019-02-05 12:30] MED LIST changes: -ACET160L33 GT; -ACID1TAB12 GT; -AMIN30LI25 GT; -ASCO500T8 GT; -CLON0.2T GT; +CLOT15CR63 TP; +COLI150V12 IJ; +ESOM40CA IV; +FAT250EM13 IV; +FLUC100T8 IV; -FOLI0.8T2 GT; +GEL100GE MC; -GEL100GE TD; -HYDR-4384 GT; -LACT10SO7 GT; -MAG30ORA GT; -METO5SOL2 GT; -MORP2SYR IVP; +NEOM28.36 TP; -NUT.237L67 GT; -OMEP20CA11 GT; -ONDA4TAB10 GT; -POLY15DR40 EACHEYE; +POVI1MED TP; +SODI480S2 MC; -SUCR1TAB GT
--- NOTE | 2019-02-05 12:30 | NUR ---
BIB STAFF FROM SUB ACUTE FOR HYPOTENSION 60'S/30'S. 500CC BOLUS GIVEN,NO CHANGE IN BP. DR LORENZO AWARE. TO ER BED 5, HOOKED TO MONITOR, BP AT 64/35MMHG P69 02 SAT 100%, VENTILATOR SETTINGS AT RATE 12, VT 500ML, PEAK FLOW 60, O2 100%, PEEP [address] RAMOS AT BEDSIDE.
--- NOTE | 2019-02-05 12:32 | NUR ---
REQUESTED ICU BED
--- NOTE | 2019-02-05 12:41 | NUR ---
ICU 263
[2019-02-05] MEDS ORDERED: TRIA15CR2 TP (12:44)
[2019-02-05] MEDS ORDERED: ZINC57OI3 TP (12:44)
[2019-02-05] MEDS ORDERED: PANT40VI IV (12:44)
[2019-02-05 13:00] LABS: BASOPHILS # (AUTO) 0.1 /CMM (0.0-0.2); HEMOGLOBIN 9.8 g/dL (11.5-14.8); MEAN CORPUSCULAR HGB CONC 30 g/dl (31.0-36.0); MONOCYTES # (AUTO) 0.2 /CMM (0.1-1.30)
[2019-02-05] MEDS ORDERED: IV NS 0.9% 1,000 ML BAG IV ONE (13:00)
[2019-02-05] MEDS ORDERED: NOREPINEPHRINE 8 MG in IV D5W 500 ML IV PRN ×2 (13:00→16:00)
--- NOTE | 2019-02-05 13:00 | NUR ---
SHOE PACKER AT BEDSIDE
--- NOTE | 2019-02-05 13:05 | NUR ---
DR SRIKANTH ATKINS
[2019-02-05 13:10] LABS: BASOPHILS % (AUTO) 0.3 % (0.0-2.0); EOSINOPHILS % (AUTO) 0.7 % (0.0-6.0); HEMATOCRIT 33 % (33-45); LYMPHOCYTES # (AUTO) 1.8 /CMM (0.8-4.8); LYMPHOCYTES % (AUTO) 9.3 % (20.0-44.0); MEAN CORPUSCULAR VOLUME 92 fL (82-100); MONOCYTES % (AUTO) 0.9 % (2.0-12.0); NEUTROPHILS # (AUTO) 17.1 /CMM (1.8-8.9); NEUTROPHILS % (AUTO) 88.8 % (43.0-81.0); PLATELET COUNT (AUTO) 102 /CMM (150-450); RED BLOOD CELL COUNT(AUTO) 3.54 MIL/uL (4.0-5.2); WHITE BLOOD COUNT (AUTO) 19.2 K/uL (4.3-11.0)
[2019-02-05 13:12] LABS: CALCIUM, SERUM 9.1 mg/dL (8.5-10.1); CARBON DIOXIDE 12 mmol/L (21-32); CHLORIDE 104 mmol/L (98-107); CREATININE 3.2 mg/dL (0.6-1.3); GLUCOSE 95 mg/dL (74-106); POTASSIUM 2.9 mmol/L (3.5-5.1); SODIUM SERUM 139 mmol/L (136-145); UREA NITROGEN, BLOOD 49 mg/dL (7-18)
[2019-02-05 13:19] LABS: ALANINE AMINOTRANSFERASE 22 U/L (12-78); ALBUMIN 1.5 g/dL (3.4-5.0); ALKALINE PHOSPHATASE 719 U/L (46-116); ASPARTATE AMINOTRANSFERASE 35 U/L (15-37); BILIRUBIN,DIRECT 0.6 mg/dL (0.0-0.2); BILIRUBIN,TOTAL 1.2 mg/dL (0.2-1.0); TOTAL PROTEIN, SERUM 5.9 g/dL (6.4-8.2)
--- NOTE | 2019-02-05 13:20 | NUR ---
RECEIVED ADMISSION ORDERS FROM DR LORENZO.
[2019-02-05] MEDS ORDERED: VANCOMYCIN 1 GM in IV D5W 250 ML IV SCH (13:30)
[2019-02-05] MEDS ORDERED: PIPERACILLIN /TAZOBACTAM 3.375 G VIAL IV ONE (13:48)
[2019-02-05] MEDS ORDERED: VANCOMYCIN 1 GM VIAL ONE (13:49)
[2019-02-05 14:02] LABS: LYMPHOCYTES % (MANUAL) 18 % (16-48); MONOCYTES % (MANUAL) 1 % (0-11.0); NEUTROPHILS % (MANUAL) 81 (42-76)
--- NOTE | 2019-02-05 14:20 | NUR ---
REPORT GIVEN TO ELVA MARINO FOR SOURAV.
--- NOTE | 2019-02-05 14:45 | NUR ---
TRANSFERRED TO ICU WITH RT AND TECH.
--- NOTE | 2019-02-05 15:00 | NUR ---
FLEET SALES MANAGERTRAPEZE ARTIST NOTES PT ADMITTED FROM ER FOR LOW BP. PT HAS A CURRENT BP OF 93/36. WILL TITRATE LEVO ORDERED TO MAINTAIN MAP GREATER THAN 65. PT OBTUNDENT. PT TRACH AND VENT DEPENDANT. RT AT BEDSIDE. VENT SETTINGS ASSESSED FOR ACCURACY. PT TOLERATING SETTINGS WELL. RIGHT FEMORAL TRIPLE LUMEN PICC NOTED. 2/3 PORTS NOTED TO BE PATENT WITH GOOD BLOOD RETURN. UNABLE TO FLUSH THIRD PORT. WILL ALERT MD. RIGHT AV FISTULA NOTED. BRUIT/THRILL ASSESSED. RIGHT NARE NG TUBE NOTED AND CONNECTED TO LIS. YELLOW GASTRIC CONTENTS NOTED. LEFT LOWER QUADRANT COLOSTOMY NOTED TO BE C/D/I. ADMISSION ORDERS NOTED FROM MD. WILL CONTINUE ADMISSION PROCESS AND AWAIT FOR FURTHER MD ORDERS
[2019-02-05] MEDS ORDERED: DEXTROSE 50%-WATER 50 ML DISP.SYRIN IV PRN (15:30)
[2019-02-05] MEDS ORDERED: VANCOMYCIN 500 MG in IV D5W 100 ML IV PRN (15:30)
[2019-02-05] MEDS ORDERED: FEE PK DOSING 1 MIN EA MC ONE (15:51)
[2019-02-05] MEDS ORDERED: FEE TPN 1 MIN EA MC ONE (16:00)
[2019-02-05] MEDS ORDERED: TPN BAG 2 IV PRN ×6 (16:00)
[2019-02-05] MEDS ORDERED: TPN BAG #1 IV PRN ×8 (16:00)
[2019-02-05] MEDS ORDERED: FAT EMULSION 20% IV PRN (16:30)
[2019-02-05] MEDS: BLOOD SUGAR DIAGNOSTIC 1 EACH STRIP IN SCH (17:14)
[2019-02-05] MEDS ORDERED: IV NS 0.9% 1,000 ML IV ONE (17:30)
--- NOTE | 2019-02-05 17:30 | NUR ---
QUALITY LAB TECHNICIAN NOTES: CRITICAL VALUE (LACTIC) RESULTS OF LACTIC RELAYED TO MD LORENZO. TELEPHONE ORDER OBTAINED TO ADMINISTER 1L NS FOR 2HR AND OBTAIN REPEAT LACTIC IN AM.
[2019-02-05] MEDS ORDERED: PIPERACILLIN /TAZOBACTAM 3.375 G in IV D5W 50 ML IV SCH (18:00)
[2019-02-05] MEDS ORDERED: ALTEPLASE CATHFLO 2 MG/VIAL XX ONE (18:30)
[2019-02-05] MEDS: NOREPINEPHRINE 16 MG in IV D5W 500 ML IV PRN (18:46)
[2019-02-05] MEDS ORDERED: HYDROGEN PEROXIDE 480 ML BOTTLE TP PRN (19:00)
[2019-02-05] MEDS ORDERED: ACETAMINOPHEN 650 MG/SUPP.RECT RC PRN (19:00)
--- NOTE | 2019-02-05 19:00 | NUR ---
Received patient with tracheostomy to the ventilator on AC mode,not in any distress,breathing regular and non labored, slightly lethargic, arousable, responds/withdraws to pain, eyes open ,but no eye contact,not following commands.Left leg AKA noted. On Levophed drip for BP support ,will titrate as needed.NGT to LIWS draining moderate amount of bileuos drainage. Comfort care done,needs attended.
--- NOTE | 2019-02-05 19:05 | NUR ---
LIBRARY ACQUISITIONS TECHNICIAN CLOSING NOTES PT STABLE ON LEVO DRIP AND VENT. ALL NEEDS ANTICIPATED FOR AND MET, DUE MEDS GIVEN ORDERED. ENDORSED TO NIGHTSHIFT RN FOR SOURAV
[2019-02-05] MEDS: ALBUTEROL FS 2.5 MG/3 ML VIAL.NEB NEB SCH (19:40)
[2019-02-05] MEDS: POVIDONE-IODINE OINT 28.4 GM TUBE TP SCH ×2 (21:00)
--- NOTE | 2019-02-05 21:15 | NUR ---
Called and spoke to Dr. Terrie Olivo,relayed blood culture result Gram negative Rods.
[2019-02-05] MEDS: PANTOPRAZOLE 40 MG VIAL IV SCH (21:29)
[2019-02-05] MEDS: CLOTRIMAZOLE 1% 15 GM TUBE TP SCH (21:30)
[2019-02-05] MEDS: PIPERACILLIN /TAZOBACTAM 3.375 G in IV D5W 50 ML IV SCH (21:30)
[2019-02-05] MEDS: HYDROGEL DRESSING 90 GM TUBE TP SCH (21:30)
[2019-02-05] MEDS: TRIAMCINOLONE ACETONIDE 0.1% CR 15 GM TUBE TP SCH (21:31)
[2019-02-05] MEDS: HYDROGEN PEROXIDE 480 ML BOTTLE TP SCH (21:32)
[2019-02-05] MEDS: DAKINS QUARTER STRENGTH (0.125%) 480 ML BOTTLE TOP SCH (21:32)
[2019-02-05] MEDS: INSULIN GLARGINE, 100 UNIT/ML CARTRIDGE SQ SCH (21:49)
--- NOTE | 2019-02-05 22:00 | NUR ---
Status unchanged, Closely monitor BP
[2019-02-06] VITALS (96 sets, daily range): BP systolic 65–133; BP diastolic 35–64
--- NOTE | 2019-02-06 | NUR ---
Remains lethargic,arousable,eyes open,grimacing to pain, + cough and gag.BP staying in the 90's with Levophed at 30 mcg/min
[2019-02-06] MEDS: INSULIN REGULAR, HUMAN 100 UNIT/ML 3 ML VIAL SQ PRN ×4 (00:01→17:22)
[2019-02-06] MEDS: BLOOD SUGAR DIAGNOSTIC 1 EACH STRIP IN SCH ×4 (00:02→17:00)
--- NOTE | 2019-02-06 01:00 | NUR ---
Titrated Levophed up BP=87/48.
[2019-02-06] MEDS ORDERED: NOREPINEPHRINE 4 MG/4 ML AMPUL IV ONE (01:23)
[2019-02-06] MEDS: ALBUTEROL FS 2.5 MG/3 ML VIAL.NEB NEB SCH ×4 (01:57→19:46)
--- NOTE | 2019-02-06 02:30 | NUR ---
BP still low in the 80's systolic >Levophed drip now up to 37 mcg.min.
[2019-02-06] MEDS: NOREPINEPHRINE 16 MG in IV D5W 500 ML IV PRN ×3 (02:52→16:54)
--- NOTE | 2019-02-06 03:00 | NUR ---
BP still low 78/43 .levophed drip now at maximum dose,will call MD to get order for additional pressor(done by charge nurse)if BP will not respond to max dose of Levophed.
--- NOTE | 2019-02-06 04:00 | NUR ---
bp in the 90's systolic . Neosynephrine drip on standby if BP drops .Patient hypothermic now,warming measures done,will obtain Gabriel Hugger machine if remains Hypothermic.
--- NOTE | 2019-02-06 05:00 | NUR ---
Remains hypothermic, placed Gabriel Hugger warmer blanket.
[2019-02-06] MEDS: PIPERACILLIN /TAZOBACTAM 3.375 G in IV D5W 50 ML IV SCH (05:12)
[2019-02-06 05:18] LABS: BASOPHILS # (AUTO) 0.1 /CMM (0.0-0.2); BASOPHILS % (AUTO) 0.2 % (0.0-2.0); EOSINOPHILS % (AUTO) 0.6 % (0.0-6.0); HEMATOCRIT 37 % (33-45); HEMOGLOBIN 10.7 g/dL (11.5-14.8); LYMPHOCYTES # (AUTO) 3.4 /CMM (0.8-4.8); LYMPHOCYTES % (AUTO) 6.2 % (20.0-44.0); MEAN CORPUSCULAR HGB CONC 29 g/dl (31.0-36.0); MEAN CORPUSCULAR VOLUME 93 fL (82-100); MONOCYTES # (AUTO) 1.1 /CMM (0.1-1.30); NEUTROPHILS # (AUTO) 49.2 /CMM (1.8-8.9); PLATELET COUNT (AUTO) 107 /CMM (150-450); RED BLOOD CELL COUNT(AUTO) 4.01 MIL/uL (4.0-5.2)
[2019-02-06 05:48] LABS: BAND % (MANUAL) 18 % (0.0-5.0); EOSINOPHILS % (MANUAL) 1 % (0-4); LYMPHOCYTES % (MANUAL) 6 % (16-48); MONOCYTES % (MANUAL) 1 % (0-11.0); NEUTROPHILS % (MANUAL) 74 (42-76)
--- NOTE | 2019-02-06 07:05 | NUR ---
started Neosynephrine drip .Lab was called to run STAT bmp and Magnesium . Report given to Allison MARINO
[2019-02-06] MEDS: PHENYLEPHRINE 80 MG in IV D5W 250 ML IV PRN ×4 (07:06→21:23)
--- NOTE | 2019-02-06 07:10 | NUR ---
VAULT CUSTODIAN INITIAL NOTES PT RECEIVED IN CRITICAL CONDITION. REMAINS OBTUNDED. CURRENTLY TOLERATING VENT SETTINGS WELL. NO SOB OR ACUTE SIGNS OF DISTRESS NOTED. BREATHING IS EVEN AND UNLABORED. VENT SETTINGS ASSESSED FOR ACCURACY. PT'S BP REMAINS LOW (SEE DATASCOPE) AND IS CURRENTLY MAXED OUT ON LEVO AND STARTED ON GELY BY NIGHTSHIFT RN. WILL TITRATE ACCORDINGLY. FEMORAL TRIPLE LUMEN CATH REMAIN PATENT AND INTACT. GOOD BLOOD FLOW ASSESSED FROM ALL PORTS. RIGHT AV FISTULA NOTED. BRUIT/THRILL ASSESSED. RIGHT NARE NG TUBE NOTED AND CONNECTED TO LIS. LEFT LOWER QUADRANT COLOSTOMY NOTED TO BE C/D/I. BED IN LOW LOCKED POSITION, SIDE RAILS UP X3, CONTACT ISOLATION PRECAUTIONS OBSERVED. WILL CONTINUE TO CLOSELY MONITOR
[2019-02-06] MEDS: HYDROGEN PEROXIDE 480 ML BOTTLE TP SCH (08:49)
[2019-02-06] MEDS: MIDODRINE HCL (5MG) 5 MG TABLET GT SCH (08:49)
[2019-02-06] MEDS: POVIDONE-IODINE OINT 28.4 GM TUBE TP SCH ×6 (09:00→22:27)
--- NOTE | 2019-02-06 09:00 | NUR ---
STUDENT TEACHER NOTES: MD (DR. LORENZO) NOTIFICATION (S)/ TIMELINE OF NEW ORDERS 0905: MADE AWARE OF PT'S CURRENT LACTIC ACID, INCREASED WBC COUNT, HYPOTHERMIA, AND ALBUMIN LEVEL REQUESTED - TELEPHONE ORDER OBTAINED TO ADMINISTER 25% ALBUMIN 100CC VIA IV Q6H X4 0920 : MADE AWARE OF PT'S CURRENT CO2 LEVEL OF 6 PER BMP RESULTS. ORDERS OBTAINED FOR STAT ABG (RT NOTIFIED) AND PULMONARY CONSULT (DR CONNORS ON UNIT AND NOTIFIED) 0940: RESULTS OF ABG RELAYED TO MD LORENZO AND MD CONNORS - TELEPHONE ORDER OBTAINED TO BEGIN PT ON D5W WITH 3AMPS NA HCO3 AT 50CC/HR. ALSO STATES THAT PT MAY BE STARTED ON SHOCK DOSE OF VASOPRESSIN SHE IS CURRENTLY MAXED OUT ON LEVO AND GELY - VERBAL ORDER OBTAINED BY DR CONNORS TO FURTHER ADMINISTER 2AMPS OF BICARB 1008: MADE AWARE THAT PT IS UNABLE TO HAVE HD AT THE MOMENT DUE TO UNSTABLE BP
[2019-02-06 09:06] LABS: CALCIUM, SERUM 9.6 mg/dL (8.5-10.1); CREATININE 3.3 mg/dL (0.6-1.3); MAGNESIUM 1.9 mg/dL (1.8-2.4); POTASSIUM 3.2 mmol/L (3.5-5.1)
[2019-02-06] MEDS: HYDROGEL DRESSING 90 GM TUBE TP SCH ×2 (09:08→21:51)
[2019-02-06] MEDS: DAKINS QUARTER STRENGTH (0.125%) 480 ML BOTTLE TOP SCH ×2 (09:08→21:43)
[2019-02-06] MEDS: CLOTRIMAZOLE 1% 15 GM TUBE TP SCH ×2 (09:09→22:29)
[2019-02-06] MEDS: TRIAMCINOLONE ACETONIDE 0.1% CR 15 GM TUBE TP SCH ×2 (09:09→21:47)
[2019-02-06] MEDS: PANTOPRAZOLE 40 MG VIAL IV SCH ×2 (09:19→21:42)
[2019-02-06 09:45] LABS: ABG BASE EXCESS -24.7 mmol/L; ABG OXYGEN SATURATION 77.3 % (92.0-98.5); ABG PCO2 25.6 mmHg (35.0-45.0); ABG PH 6.962 (7.350-7.450); COHb 0.4 % (0.5-1.5); MetHb 0.9 % (0.0-1.5); O2Hb 76.3 % (94.0-97.0); SITE, ABG LEFT ARM
[2019-02-06] MEDS: ALBUMIN 25% 25 GM in PREMIX 1 EA IV SCH ×3 (09:46→22:53)
[2019-02-06] MEDS ORDERED: TPN BAG #2 IV PRN ×6 (09:50)
[2019-02-06] MEDS ORDERED: TPN BAG #3 IV PRN ×16 (10:00)
[2019-02-06] MEDS: Sodium Bicarbonate 150 MEQ in IV D5W 1,000 ML IV PRN (10:29)
--- NOTE | 2019-02-06 10:30 | NUR ---
MIDDLEWARE SOLUTIONS ARCHITECT NOTES: ROUNDING (DR LORENZO) AT BEDSIDE. GIVEN UPDATE ON PT'S CONATION. MD STATES THAT SHE WILL SPEAK TO PT'S FAMILY AND UPDATE. VERBAL ORDERS OBTAINED TO CHECK PT'S CORTISOL LEVEL, BEGIN HYDROCORTISONE 100MG IV Q8H, AND ADMINISTER 1 L NS OVER 2HR. WILL CARRY OUT ORDERED
[2019-02-06] MEDS: VASOPRESSIN INJ 50 UNIT in IV D5W 497.5 ML IV PRN (11:17)
[2019-02-06] MEDS ORDERED: SODIUM BICARBONATE SYR 50 MEQ/50 ML DISP.SYRIN IV ONE (12:00)
[2019-02-06] MEDS ORDERED: IV NS 0.9% 1,000 ML IV PRN (12:00)
[2019-02-06] MEDS ORDERED: IV NS 0.9% 1,000 ML IV ONE (12:00)
[2019-02-06] MEDS ORDERED: IV NS 0.9% 1,000 ML BAG IV PRN (12:00)
[2019-02-06] MEDS: HYDROCORTISONE SOD SUCCINATE 100 MG/2 ML VIAL IV SCH ×2 (12:16→21:38)
[2019-02-06] MEDS ORDERED: PIPERACILLIN /TAZOBACTAM 2.25 G in IV D5W 50 ML IV SCH (13:00)
[2019-02-06] MEDS: DOPamine 800 MG in IV D5W 250 ML IV PRN ×3 (13:19→23:35)
[2019-02-06] MEDS ORDERED: FAT EMULSION 20% 500 ML in PREMIX 1 EA IV SCH (17:00)
--- NOTE | 2019-02-06 17:00 | NUR ---
NUTRITION REPRESENTATIVE NOTES: LIPID ADMINISTRATION PER PHARMACIST, LIPIDS AND TPN MAY RUN FROM SAME PORT LONG THE LIPID IS CONNECTED TO THE PORT DISTAL THE TPN FILTER
--- NOTE | 2019-02-06 17:53 | NUR ---
BUTT SAWYER NOTES: HD FOLLOW UP CALL RECEIVED FROM HD NURSE LA NENA. PER NURSE, "PT IS NOT STABLE FOR HD. BUTCH AND HAVE BEEN NOTIFIED"
--- NOTE | 2019-02-06 18:54 | NUR ---
COPY DIRECTOR CLOSING NOTES PT MAXED OUT ON ALL PRESSORS. BP CURRENTLY 102/50 WITH A HR OF 111. SHE CONTINUES TOLERATING IV FLUIDS, TPN AND LIPIDS WELL. PRN, TACH AND WOUND CARE RENDERED ORDERED. PT REPOSITIONED AND TURNED PER PROTOCOL. ALL NEEDS ANTICIPATED FOR AND MED. RIGHT NARE NG REMAINS CONNECTED TO LIS. COLOSTOMY REMAINS C/D/I. SAFETY MEASURE AND ISOLATION PRECAUTIONS REMAIN IN PLACE. WILL ENDORSE TO NIGHTSHIFT RN FOR SOURAV
[2019-02-06] MEDS ORDERED: DOSING PER PHARMACY-AMIKACI IV XX PRN (19:30)
--- NOTE | 2019-02-06 19:30 | NUR ---
ICU/RN NOTES RECEIVED PT ON VENT VIA TRACH,TRACEY #6 A/C 12 [id number] 60% FIO2 W/ O2 SAT OF 95%.TRACH DRESSING INTACT AND DRY.SUCTIONED FOR SCANT AMT SECRETIONS.ORAL CARE DONE.ON QUADRUPLE PRESSORS,DOPAMINE AT 30MCG/KG/MIN.LEVOPHED AT 40MCG/MIN.PHENYLEPHRINE AT 300MG/MIN.VASOPRESSIN AT 0.04UNITS/MINUTE.NAHCOE DRI AT 50ML/HR.TPN AT 64.26ML/HR,LIPIDS AT 20.83ML/HR.PT UNRESPON SIVE TO VERBL AND TACTILE STIMULATION.PALED ON SUPINE POSITION BP LABILE.
[2019-02-06] MEDS ORDERED: DOPamine 400MG/D5W 250ML RTU 250 ML IV ONE (19:56)
[2019-02-06] MEDS: DOPamine 400 MG in IV D5W 250 ML IV PRN (20:15)
[2019-02-06] MEDS ORDERED: DOPamine 400 MG/D5W 250 ML RTU PIGGYBACK IV ONE (21:00)
--- NOTE | 2019-02-06 21:00 | NUR ---
ICU/RN NOTES PLACED ON 100% BY RT. SATURATION =88%.MONITOR SHOW JUNCTIONAL TACH.W/BBB.
[2019-02-06] MEDS ORDERED: AMIKACIN 500 MG in IV D5W 100 ML IV ONE (22:00)
[2019-02-06] MEDS ORDERED: METRONIDAZOLE 500MG/ NS 100ML 100 ML IV ONE (22:18)
[2019-02-06] MEDS: INSULIN GLARGINE, 100 UNIT/ML CARTRIDGE SQ SCH (22:22)
[2019-02-06] MEDS: METRONIDAZOLE 500MG/ NS 100ML 500 MG in PREMIX 1 EA IV SCH (22:23)
[2019-02-06] MEDS ORDERED: AMIKACIN 250 MG/ML VIAL ONE (23:55)
[2019-02-07] VITALS (74 sets, daily range): BP systolic 54–118; BP diastolic 28–80
[2019-02-07] MEDS: DOPamine 400 MG in IV D5W 250 ML IV PRN (00:10)
[2019-02-07] MEDS: BLOOD SUGAR DIAGNOSTIC 1 EACH STRIP IN SCH ×4 (00:17→17:59)
[2019-02-07] MEDS: INSULIN REGULAR, HUMAN 100 UNIT/ML 3 ML VIAL SQ PRN ×3 (00:20→18:03)
--- NOTE | 2019-02-07 00:45 | NUR ---
ICU/RN NOTES CALL PLACED TO 'S ANSWERING SERVICE REGARDING BLOOD SUGAR OF 444MG/DL.
[2019-02-07] MEDS: NOREPINEPHRINE 16 MG in IV D5W 500 ML IV PRN ×3 (01:00→13:53)
--- NOTE | 2019-02-07 01:15 | NUR ---
ICU/RN NOTES HAS NOT CALLED BACK,PLACED ANOTHER CALL TO ANSWERING SERVICE
[2019-02-07] MEDS: ALBUTEROL FS 2.5 MG/3 ML VIAL.NEB NEB SCH ×3 (01:58→13:45)
[2019-02-07] MEDS: PHENYLEPHRINE 80 MG in IV D5W 250 ML IV PRN ×4 (02:04→15:55)
--- NOTE | 2019-02-07 03:15 | NUR ---
ICU/RN NOTES DR LORENZO.RETURNED CALL.ORDERS RECEIVED
[2019-02-07] MEDS ORDERED: INSULIN GLARGINE, 100 UNIT/ML CARTRIDGE SQ STA (03:45)
[2019-02-07 04:15] LABS: BASOPHILS # (AUTO) 0.2 /CMM (0.0-0.2); BASOPHILS % (AUTO) 0.3 % (0.0-2.0); HEMATOCRIT 36 % (33-45); HEMOGLOBIN 10.7 g/dL (11.5-14.8); LYMPHOCYTES # (AUTO) 3.1 /CMM (0.8-4.8); LYMPHOCYTES % (AUTO) 4.4 % (20.0-44.0); MEAN CORPUSCULAR HGB CONC 30 g/dl (31.0-36.0); MEAN CORPUSCULAR VOLUME 98 fL (82-100); MONOCYTES # (AUTO) 1.6 /CMM (0.1-1.30); MONOCYTES % (AUTO) 2.3 % (2.0-12.0); NEUTROPHILS # (AUTO) 63.6 /CMM (1.8-8.9); PLATELET COUNT (AUTO) 99 /CMM (150-450); RED BLOOD CELL COUNT(AUTO) 3.62 MIL/uL (4.0-5.2)
[2019-02-07 04:36] LABS: WHITE BLOOD COUNT (AUTO) 69.2 K/uL (4.3-11.0)
[2019-02-07 04:56] LABS: BAND % (MANUAL) 34 % (0.0-5.0); MONOCYTES % (MANUAL) 1 % (0-11.0); NEUTROPHILS % (MANUAL) 61 (42-76)
[2019-02-07 04:57] LABS: LYMPHOCYTES % (MANUAL) 2 % (16-48); METAMYELOCYTES % 2 % (0-0)
[2019-02-07 05:25] LABS: ALBUMIN 2.5 g/dL (3.4-5.0); BILIRUBIN,TOTAL 2.4 mg/dL (0.2-1.0); CALCIUM, SERUM 9.1 mg/dL (8.5-10.1); CREATININE 3.3 mg/dL (0.6-1.3); TOTAL PROTEIN, SERUM 6.3 g/dL (6.4-8.2)
[2019-02-07] MEDS: VASOPRESSIN INJ 50 UNIT in IV D5W 497.5 ML IV PRN ×2 (05:45→08:45)
[2019-02-07] MEDS ORDERED: METRONIDAZOLE 500MG/ NS 100ML 100 ML IV ONE (05:46)
[2019-02-07] MEDS: METRONIDAZOLE 500MG/ NS 100ML 500 MG in PREMIX 1 EA IV SCH ×2 (05:46→13:10)
[2019-02-07] MEDS ORDERED: DOPamine 400MG/D5W 250ML RTU 250 ML IV ONE (05:47)
[2019-02-07] MEDS: HYDROCORTISONE SOD SUCCINATE 100 MG/2 ML VIAL IV SCH ×2 (06:00→13:10)
[2019-02-07] MEDS ORDERED: DEXTROSE 50%-WATER 50 ML DISP.SYRIN IV PRN (06:00)
--- NOTE | 2019-02-07 06:00 | NUR ---
ICU/RN NOTES REMAINS ON 4 PRESSORS,LEVOPHED DRIP DECREASED TO 38MCG/MD.SEE IV SPREAD SHEET
[2019-02-07] MEDS ORDERED: FEE PK DOSING 1 MIN EA MC ONE (06:28)
[2019-02-07] MEDS ORDERED: AMIKACIN 300 MG in IV D5W 100 ML IV PRN (06:30)
[2019-02-07] MEDS: ALBUMIN 25% 25 GM in PREMIX 1 EA IV SCH (07:17)
[2019-02-07] MEDS: POVIDONE-IODINE OINT 28.4 GM TUBE TP SCH ×2 (07:18→08:58)
[2019-02-07] MEDS: HYDROGEN PEROXIDE 480 ML BOTTLE TP SCH ×2 (07:19→08:58)
--- NOTE | 2019-02-07 07:30 | NUR ---
ICU/RN NOTES REPORT AND CARE OF PT. GIVEN TO REGINA MARINO.AT BEDSIDE
--- NOTE | 2019-02-07 07:52 | NUR ---
HOME OFFICE CLAIM SPECIALIST NOTES RECEIVED BEDSIDE REPORT. PATIENT OBTUNDED. VENT AND TRACHED TOLERATING VENT SETTINGS ORDERED. NO SIGNS OF RESPIRATORY DISTRESS OR ACUTE PAIN NOTED. CURRENTLY ON PRESSORS OF LEVOPHED @ 38MCG/MIN DOPAMINE @ 30MCG/MIN GELY @ 300MCG/MIN AND PITRESSIN @ 24 ML/HR MAINTAINING A STABLE VITALS WITHIN MD ORDERS. TPN AND LIPIDS RUNNING IN SAME LINE WELL NA BICARB @ 50 ML/HR ALL RUNNING THROUGH RIGHT FEMORAL TRIPLE LUMEN PICC. MAINTAINING CORE TEMP. JUNCTIONAL AFIB ON MONITOR NGT TUBE IN RIGHT NARES CONNECTED TO LOW INTERMITTENT SUCTION WITH MINIMAL YELLOW DRAINAGE ANURIC COLOSTOMY CLEAN DRY AND INTACT. SAFETY ISOLATION AND ASPIRATION PRECAUTIONS IN PLACE WILL CONT TO MONITOR TITRATE PRESSORS IF NEEDED
--- NOTE | 2019-02-07 08:23 | NUR ---
ICU/RN NOTES CALL PLACED TO ANSWERING SERVICE FOR BLOOD SUGAR OF 522MG/DL
--- NOTE | 2019-02-07 08:27 | NUR ---
SPOKE WITH DR CERVANTES WITH F/U FROM [facility]ER BLOOD SUGAR OF 552 MG/DL . WILL BE ON UNIT SOON
[2019-02-07] MEDS: PANTOPRAZOLE 40 MG VIAL IV SCH (08:56)
[2019-02-07] MEDS: MIDODRINE HCL (5MG) 5 MG TABLET GT SCH (08:56)
[2019-02-07] MEDS: DAKINS QUARTER STRENGTH (0.125%) 480 ML BOTTLE TOP SCH (08:57)
[2019-02-07] MEDS: CLOTRIMAZOLE 1% 15 GM TUBE TP SCH (08:57)
[2019-02-07] MEDS: HYDROGEL DRESSING 90 GM TUBE TP SCH (08:59)
[2019-02-07] MEDS: TRIAMCINOLONE ACETONIDE 0.1% CR 15 GM TUBE TP SCH (08:59)
[2019-02-07] MEDS: DOPamine 800 MG in IV D5W 250 ML IV PRN ×4 (09:05→18:01)
[2019-02-07 09:10] LABS: PHOSPHORUS 3.8 mg/dL (2.5-4.9)
--- NOTE | 2019-02-07 09:10 | NUR ---
PER PHARMACY DECREASE TPN BY HALF DUE TO THE INCREASE IN BLOOD SUGAR AND F/U WITH MD
[2019-02-07 09:18] LABS: ABG BASE EXCESS -27.3 mmol/L; ABG OXYGEN SATURATION 87.1 % (92.0-98.5); ABG PCO2 43.1 mmHg (35.0-45.0); ABG PH 6.794 (7.350-7.450); COHb 0.9 % (0.5-1.5); MetHb 1.2 % (0.0-1.5); O2Hb 85.3 % (94.0-97.0); SITE, ABG LEFT ARM
--- NOTE | 2019-02-07 09:43 | NUR ---
GISELA SENT TO DR AVILA NEW ORDER FOR SODIUM BICARB 2 AMPS
--- NOTE | 2019-02-07 09:48 | NUR ---
PER DR CONDE TAPER OFF TPN COMPLETELY NOTIFIED RX
[2019-02-07] MEDS ORDERED: SODIUM BICARBONATE SYR 50 MEQ/50 ML DISP.SYRIN IV ONE (10:00)
[2019-02-07] MEDS ORDERED: INSULIN REGULAR, HUMAN 100 UNIT in IV NS 0.9% 99 ML IV PRN ×2 (10:00)
--- NOTE | 2019-02-07 10:20 | NUR ---
INSULIN DRIP STARTED PER PROTOCOL BS 492 MG/DL
[2019-02-07] MEDS ORDERED: ALBUTEROL FS 2.5 MG/3 ML VIAL.NEB ONE (10:46)
[2019-02-07] MEDS ORDERED: IPRATROPIUM NEB FS 0.5 MG/2.5 ML AMPUL.NEB ONE (10:46)
[2019-02-07] MEDS: Sodium Bicarbonate 150 MEQ in IV D5W 1,000 ML IV PRN (12:13)
--- NOTE | 2019-02-07 12:26 | NUR ---
LEFT MESSAGE WITH DR CONDE PATIENT BP DROPPING INTO TO 70'S AND MAXED OUT ON ALL PRESSORS. CALL MADE TO SUB ACUTE SW TO SPEAK WITH . IS MOROCCAN SPEAKING
--- NOTE | 2019-02-07 12:46 | NUR ---
SA WESLEY called patient�s boyfriend, John Woodall [phone] to check-in as per EMR, the patient was transferred to ICU over the weekend and is in critical condition. Per ICU Charge Nurse� request, LUPILLO asked John, �If the patient�s heart stops do you want SOH to resuscitate?" as John is fluent in Macedonian. John stated, �If the patient�s heart stops, SOH do not resuscitate�. LUPILLO communicated to Charge Nurse.
--- NOTE | 2019-02-07 13:59 | NUR ---
LUPILLO met patient's Boyfriend, in ICU to provide support during this time. Per John's request, he would like a Jewish radial drill press operator to come pray for the patient. LUPILLO contacted [facility] ([facility]) and spoke to Pastor Gao to relay above stated info. Per pastor Gao, he will not be able to make it but will be reaching out to other and let me know if they are available to assist.
--- NOTE | 2019-02-07 14:00 | NUR ---
DR HERRERA AT BEDSIDE SPEAKING WITH BOYFRIEND. NEW ORDER FOR CODE STATUS DNR NO COMPRESSIONS OK WITH CURRENT PRESSORS AND VENT STATUS. PATIENT IS MAXED OUT AND B/P CONTINUES TO DECREASE. FAMILY REFUSING BLOOD SUGARS
--- NOTE | 2019-02-07 15:00 | NUR ---
CLARIFICATION OF INSULIN ORDER NEEDED. PT ON INSULIN DRIP WITH 2ND ORDER OF SLIDING SCALE.
--- NOTE | 2019-02-07 15:02 | NUR ---
LUPILLO received message from Pastor Gao stating that he found a Rotary Rig Engine Operator [place] in [place] who is readily available to provide spiritual services for patient and family. LUPILLO called Pastor Go [phone] and provided him with [facility] address. Per Pastor Go, he can be at [facility] between 3:30-4:30pm due to traffic. LUPILLO informed John and ICU charge Nurse and they were agreeable to plan.
--- NOTE | 2019-02-07 16:28 | NUR ---
LUPILLO provided John Woodall with list of Grief Support Groups in [place] : [facility] [phone] [[address] [facility] [address]]; List of Mortuaries in [place] and [facility] :[facility] [[address] [place] [facility] [address]; [phone]]. LUPILLO provided John with resource list of agencies that provide support for grieving children as the pt. has a 9 year-old daughter with John [[facility] [phone]]. John Expressed understanding expressed being grateful for resources. LUPILLO provided John with verification of admission letter for his work purposes.
--- NOTE | 2019-02-07 16:34 | NUR ---
UPDATED RX ON PATIENT STATUS TO PROVIDE FOR OFFICE ENGINEER.
--- NOTE | 2019-02-07 16:35 | NUR ---
LUPILLO FROM [facility] PROVIDED THE NAME OF THE SPECIAL WARFARE BOAT OPERATOR TO READ THE LAST RIGHTS SPECIAL WARFARE BOAT OPERATOR [facility] [phone] ALSO LEFT SOME SUPPORT AND HOMES FOR THE FAMILY SINCE ARRANGEMENTS ARE NOT IN ORDER
--- NOTE | 2019-02-07 17:15 | NUR ---
PASTOR SOLIS AT BEDSIDE TO READ PATIENTS LAST RIGHTS
--- NOTE | 2019-02-07 18:22 | NUR ---
LEFT MESSAGE WITH US RENAL DR CONDE TO CLARIFY INSULIN ORDER
--- NOTE | 2019-02-07 18:35 | NUR ---
ICU/RELIEF CHARGE: PT PRONOUNCED AT 1835. PT ASYSTOLE, NO HEARTBEAT, NO SPONTANEOUS RESPIRATIONS. PULSES CHECKED, NONE PALPABLE. PT CODE STATUS DNR. NO SIGNS OF LIFE. FAMILY CALLED AND INFORMED.
--- NOTE | 2019-02-07 18:38 | NUR ---
SPOKE WITH NATALIE ZHANG AND INFORMED HIM THAT SHE HAS .
--- NOTE | 2019-02-07 18:53 | NUR ---
DR CONDE INFORMED THAT PATIENT @ 6271
--- NOTE | 2019-02-07 18:54 | NUR ---
CALL TO [facility]
--- NOTE | 2019-02-07 18:58 | NUR ---
SPOKE WITH NATALIE NEXT OF KIN AND SAID IT IS OK TO GIVE INFORMATION TO SISTER WHO IS ON HER WAY FROM [place] WITH DAUGHTER . INFORMED HIM THAT BODY CAN STAY HERE ON UNIT FOR 2 HOURS AND IN FACILITY [facility] FOR 24 HRS
--- NOTE | 2019-02-07 18:58 | NUR ---
PATIENT NOT CANDIDATE FOR [facility] REFERRAL NUMBER [id number]
--- NOTE | 2019-02-07 19:13 | NUR ---
SPOKE WITH NACHO NURSING WEIGHT TRAINING INSTRUCTOR TO LET HIM KNOW THAT PATIENT AND THAT FAMILY IS ON THE WAY. ALSO NO ARRANGEMENTS HAVE BEEN MADE FOR THE AT THIS TIME.
--- NOTE | 2019-02-07 19:26 | NUR ---
ENDORSED TO ABEL
--- NOTE | 2019-02-07 19:51 | NUR ---
called John Woodall the boyfriend, no answer, message left regarding what time will the family come to see the pt
[2019-02-07] MEDS ORDERED: HYDROGEL DRESSING 90 GM TUBE TP SCH (20:30)
[2019-02-07] MEDS ORDERED: Z GUARD REMEDY 2 OZ OINT TP SCH (21:00)
--- NOTE | 2019-02-11 16:09 | NUR ---
Per patient�s boyfriend�s request, LUPILLO called [facility] [[address] [place] [address]; [phone]] and spoke to mail clerks supervisor, Aron to verify if the patient�s SS checks are still being mailed to their facility as pt. used to reside their facility. Per Aron, the facility has not been receiving the pt.�s SS checks since 2013 when she last resided there. LUPILLO informed patient�s boyfriend, John. 2PM--LUPILLO called the [employer] [phone] office to find out who they are mailing the resident�s SS checks to. LUPILLO left call back number as the projected wait time was 90 mins. 3:39pm�SW received a call back from Ivanna at Office and stated that the family should call SS themselves. Per Ivanna, the patient may be eligible for a one-time payment of $255 that can be paid to the surviving spouse if he or she was living with the ; or, if living apart, was receiving certain Social Security benefits on the �s record. If there is no surviving spouse, the payment is made to a child who is eligible for benefits on the �s record in the month of . LUPILLO called and informed John Woodall [phone] to call [employer] to make a claim. John expressed understanding and was agreeable to plan. NO FURTHER ACTION REQUIRED.
== END 2019-02-07 18:35 | disposition expired | DRG 720 ==
LOC: ER 12:33 → ICU 13:06
PROVIDERS: ADMIT Internal Medicine Nephrology; ATTEND Internal Medicine Nephrology
PROC: B548ZZA Ultrasonography of Superior Vena Cava, Guidance (ICD-10-PCS; principal; 2019-02-05)
PROC: 02HV33Z Insertion of Infusion Device into Superior Vena Cava, Percutaneous Approach (ICD-10-PCS; principal; 2019-02-05)
PROC: 5A1945Z Respiratory Ventilation, 24-96 Consecutive Hours (ICD-10-PCS; principal; 2019-02-05)
PROC: 5A1D70Z Performance of Urinary Filtration, Intermittent, Less than 6 Hours Per Day (ICD-10-PCS; 2019-02-06)
DX: A41.50 Gram-negative sepsis, unspecified (principal); R65.21 Severe sepsis with septic shock; G93.1 Anoxic brain damage, not elsewhere classified; Z99.11 Dependence on respirator [ventilator] status; K31.6 Fistula of stomach and duodenum; E87.2 Acidosis; J18.9 Pneumonia, unspecified organism; J81.1 Chronic pulmonary edema; I12.0 Hypertensive chronic kidney disease with stage 5 chronic kidney disease or end stage renal disease; L89.154 Pressure ulcer of sacral region, stage 4; J96.11 Chronic respiratory failure with hypoxia; R53.2 Functional quadriplegia; N18.6 End stage renal disease; Z99.2 Dependence on renal dialysis; E11.22 Type 2 diabetes mellitus with diabetic chronic kidney disease; E11.51 Type 2 diabetes mellitus with diabetic peripheral angiopathy without gangrene; D64.9 Anemia, unspecified; Z79.51 Long term (current) use of inhaled steroids; Z79.4 Long term (current) use of insulin; Z79.899 Other long term (current) drug therapy; R13.10 Dysphagia, unspecified; Z89.612 Acquired absence of left leg above knee; Z74.01 Bed confinement status; Z93.3 Colostomy status; Y95 Nosocomial condition; L30.4 Erythema intertrigo; J98.11 Atelectasis; I51.7 Cardiomegaly; Z66 Do not resuscitate; E66.01 Morbid (severe) obesity due to excess calories; Z68.38 Body mass index [BMI] 38.0-38.9, adult; E11.65 Type 2 diabetes mellitus with hyperglycemia; Z74.09 Other reduced mobility; S31.109S Unspecified open wound of abdominal wall, unspecified quadrant without penetration into peritoneal cavity, sequela; Y83.9 Surgical procedure, unspecified as the cause of abnormal reaction of the patient, or of later complication, without mention of misadventure at the time of the procedure; Y92.9 Unspecified place or not applicable
CPT/HCPCS: 31720; 36415; 36600; 71045-TC; 80048-TC; 80053-TC; 80076-TC; 80202-TC; 82533; 82962-TC; 83605-TC; 83735-TC; 84100-TC; 84484-TC; 85025-TC; 85730-TC; 86706; 87040-TC; 87081-TC; 87340; 93307-TC; 94002-TC; 94003-TC; 94760-TC; 99082-TC; A4216; A6248; A6253; A6403; C9113; G0378; J0278; J1265; J1720; J1815; J2370; J2543; J2997; J3370; J3475; J3480; J3490; J7030; J7050; J7060; J7070; P9047